=== PATIENT | female | born 1950 | race Caucasian/White ===

== ENCOUNTER 2018-08-04 00:25 | Outpatient (CLI) | payer MEDICARE, BC, SELFPAY ==
--- NOTE | 2018-08-04 15:08 | MERGE_ITS ---
*[facility]* *[facility]* [address] [place] [address] Date of study: 08/04/2018 Transthoracic Echocardiography M-mode, complete 2D, complete spectral Doppler, and color Doppler *STUDY CONCLUSIONS* Summary: 1. Left ventricle: The cavity size was normal. Systolic function was normal. The estimated ejection fraction was 60-65%. Findings consistent with diastolic dysfunction. Doppler parameters are consistent with high ventricular filling pressure. 2. Mitral valve: There was moderate to severe regurgitation. 3. Left atrium: The atrium was mildly dilated. 4. Right ventricle: The cavity size was normal. Wall thickness was normal. Systolic function was normal. 5. Atrial septum: No defect or patent foramen ovale was identified. 6. Tricuspid valve: There was mild-moderate regurgitation. 7. Pulmonary arteries: Pulmonary systolic pressure was in the range of 25mm Hg to 35mm Hg. 8. Inferior vena cava: The vessel was patent and normal in size. The respirophasic diameter changes were in the normal range (greater than or equal to 50%), consistent with normal central venous pressure. *PATIENT PRESENTATION* Height: 152.4cm ((60in) ) S/D Pressure: 129 / 66 Weight: 68kg ((149.7lb) ) BSA: 1.72m^2 Test start time: 02:20 PM. Test stop time: 03:10 PM. PERFORMING Unknown ORDERING Tee Chadwick REFERRING Tee Chadwick CONSULTING Gordy Gregg PERFORMING [facility] PRINCIPAL INVESTIGATOR RT Becky EscobarR)(BRANDIN), AASHISH *PROCEDURE DATA* Procedure information: The patient was identified by two identifiers. This study was interpreted by [facility]. Pertinent images and digital data are archived for permanent storage and are available for subsequent review. No prior study was available for comparison. Study status: Routine. Transthoracic echocardiography. M-mode, complete 2D, complete spectral Doppler, and color Doppler. A Transthoracic Echocardiogram was performed. Scanning was performed from the parasternal, apical, subcostal, and suprasternal notch acoustic windows. Images were obtained using an [id number] cardiac ultrasound machine. Image quality was adequate. Study completion: The patient tolerated the procedure well. History: PMH: Mitral regurg *CARDIAC ANATOMY* Left ventricle: The cavity size was normal. Systolic function was normal. The estimated ejection fraction was 60-65%. The tissue Doppler parameters were abnormal. Findings consistent with diastolic dysfunction. Doppler parameters are consistent with high ventricular filling pressure. Aortic valve: Trileaflet. Doppler: There was no stenosis. There was no regurgitation. VTI ratio of LVOT to aortic valve: 0.75. Valve area (VTI): 2.2cm^2. Indexed valve area (VTI): 1.3cm^2/m^2. Peak velocity ratio of LVOT to aortic valve: 0.81. Valve area (Vmax): 2.4cm^2. Indexed valve area (Vmax): 1.4cm^2/m^2. Mean velocity ratio of LVOT to aortic valve: 0.79. Valve area (Vmean): 2.3cm^2. Indexed valve area (Vmean): 1.4cm^2/m^2. Mean gradient (S): 3.8mm Hg. Peak gradient (S): 6.3mm Hg. Aorta: Aortic root: The aortic root was normal in size. Ascending aorta: The ascending aorta was mildly dilated. Mitral valve: Doppler: There was no evidence for stenosis. There was moderate to severe regurgitation. Valve area by pressure half-time: 2.3cm^2. Indexed valve area by pressure half-time: 1.3cm^2/m^2. Peak gradient (D): 2.2mm Hg. Left atrium: The atrium was mildly dilated. Atrial septum: No defect or patent foramen ovale was identified. Right ventricle: The cavity size was normal. Wall thickness was normal. Systolic function was normal. Pulmonic valve: Doppler: There was no evidence for stenosis. There was no significant regurgitation. Tricuspid valve: Doppler: There was mild-moderate regurgitation. Pulmonary artery: Poorly visualized. Pulmonary systolic pressure was in the range of 25mm Hg to 35mm Hg. Right atrium: The atrium was normal in size. Pericardium: There was no pericardial effusion. Systemic veins: Inferior vena cava: Well visualized. The vessel was patent and normal in size. The respirophasic diameter changes were in the normal range (greater than or equal to 50%), consistent with normal central venous pressure. Baseline ECG: Sinus bradycardia. Measurements Left ventricle Value 06/21/2016 Reference LV ID, ED, PLAX 4.6 cm 4.7 3.5 - 6.0 LV ID, ES, PLAX 3.3 cm 3.6 2.1 - 4.0 LV PW thickness, ED, PLAX 0.9 cm 0.8 LV end-diastolic volume, 78 ml 1-p A2C LV ejection fraction, 1-p 64 % 53 A2C LV end-diastolic volume, 86 ml 1-p A4C LV ejection fraction, 1-p 62 % 59 A4C LV e', lateral 0.047 m/sec LV E/e', lateral 16 LV e', medial 0.03 m/sec LV E/e', medial 24 LV e', average 0.039 m/sec LV E/e', average 19 Ventricular septum Value 06/21/2016 Reference IVS thickness, ED, PLAX 1.0 cm 0.8 LVOT Value 06/21/2016 Reference LVOT ID, A-P 1.9 cm 2.0 LVOT area 3 cm^2 3.2 LVOT peak velocity, S 1.02 m/sec 0.91 LVOT mean velocity, S 0.74 m/sec LVOT VTI, S 22.6 cm 23.5 LVOT peak gradient, S 4.2 mm Hg LVOT mean gradient, S 2.5 mm Hg 2.1 Stroke volume (SV), LVOT 67 ml DP Stroke index (SV/bsa), 39 ml/m^2 LVOT DP Aortic valve Value 06/21/2016 Reference Aortic valve peak 1.3 m/sec velocity, S Aortic valve mean 0.93 m/sec velocity, S Aortic valve VTI, S 30.0 cm Aortic mean gradient, S 3.8 mm Hg 5 Aortic peak gradient, S 6.3 mm Hg 9 VTI ratio, LVOT/AV 0.75 0.65 Aortic valve area, VTI 2.2 cm^2 2.1 Velocity ratio, peak, 0.81 LVOT/AV Aortic valve area, peak 2.4 cm^2 2 velocity Velocity ratio, mean, 0.79 LVOT/AV Aortic valve area, mean 2.3 cm^2 velocity Aortic valve area/bsa, 1.4 cm^2/m^2 mean velocity Aorta Value 06/21/2016 Reference Aortic root ID, ED 3.2 cm 3.2 Ascending aorta ID, A-P, S 3.4 cm 3.2 Left atrium Value 06/21/2016 Reference LA area, ES, A4C 20.9 cm^2 20 8.8 - 23.4 LA area, ES, A2C 19 cm^2 LA volume/bsa, ES, 1-p A4C 44 ml/m^2 42 LA volume, ES, 2-p 58 ml LA volume/bsa, ES, 2-p 34 ml/m^2 Mitral valve Value 06/21/2016 Reference Mitral E-wave peak 0.74 m/sec 0.85 velocity Mitral A-wave peak 0.95 m/sec 0.94 velocity Mitral deceleration time (H) 329 ms 150 - 230 Mitral pressure half-time 96 ms 117 Mitral peak gradient, D 2.2 mm Hg 2.9 Mitral E/A ratio, peak 0.79 0.9 Mitral valve area, PHT, DP 2.3 cm^2 1.9 Mitral peak LV-LA 157.9 mm Hg 145.6 gradient, S Mitral maximal regurg 6.28 m/sec 6.03 velocity, PISA Mitral regurg VTI, PISA 244.0 cm 248.1 Tricuspid valve Value 06/21/2016 Reference Tricuspid regurg peak 2.7 m/sec 2.8 velocity Tricuspid peak RV-RA 28.9 mm Hg 31.6 gradient Right atrium Value 06/21/2016 Reference RA area, ES, A4C 15.5 cm^2 15 8.3 - 19.5 Legend: (L) and (H) magen values outside specified reference range. I have personally reviewed the images and have reviewed and edited the reported findings. Electronically signed by Nicolas Grey MD 08/04/2018 16:59
== END 2018-08-04 00:45 ==
PROVIDERS: PCP Family Medicine; Visit Provider Internal Medicine Cardiovascular Disease
DX: I50.30 Unspecified diastolic (congestive) heart failure (principal); I08.1 Rheumatic disorders of both mitral and tricuspid valves
CPT/HCPCS: 93306

== ENCOUNTER → 2018-08-28 10:30 | Outpatient (BNVA) | payer MEDICARE, BC, SELFPAY | PROVIDERS: PCP Family Medicine; Visit Provider Internal Medicine Cardiovascular Disease | DX: I77.9 Disorder of arteries and arterioles, unspecified (principal); I25.10 Atherosclerotic heart disease of native coronary artery without angina pectoris; I10 Essential (primary) hypertension; E78.5 Hyperlipidemia, unspecified; I34.0 Nonrheumatic mitral (valve) insufficiency; E11.9 Type 2 diabetes mellitus without complications; Z79.4 Long term (current) use of insulin | CPT/HCPCS: 99214 ==

== ENCOUNTER 2019-01-07 01:25 | Outpatient (CLI) | payer MEDICARE, BC, SELFPAY ==
[2019-01-07 12:20] LABS: Hemoglobin A1C 6.5 % (4.5-6.2)
[2019-01-07 13:05] LABS: Calculated LDL 145 mg/dL; Cholesterol 251 mg/dL (50-200); HDL Cholesterol 46 mg/dL (40-60); Potassium 4.2 mmol/L (3.5-5.1); Triglyceride 301 mg/dL (30-150)
== END 2019-01-07 01:45 ==
PROVIDERS: PCP Family Medicine; Visit Provider Family Medicine
DX: E11.9 Type 2 diabetes mellitus without complications (principal)
CPT/HCPCS: 36415; 80061; 83721; 82565; 83036; 84132

== ENCOUNTER 2019-01-15 00:57 | Outpatient (CLI) | payer MEDICARE, BC, SELFPAY ==
--- NOTE | 2019-01-15 13:30 | DI.COMBO_ITS ---
SYMPTOMS/DIAGNOSIS: LEFT BREAST MASS/BRUISE, R22.9, N63.2 MAMMOGRAMS AND LEFT BREAST ULTRASOUND: Mammograms were interpreted according to the usual protocol including computer analysis with CAD system, tomosynthesis and C view imaging. Comparison is with the prior examinations. Breast density A. No suspicious masses or calcifications are seen. There is a stable nodule with coarse calcifications in the upper outer quadrant of the right breast. There is a subtle area of increased density in the subcutaneous tissues in the upper left breast corresponding to the palpable abnormality. No associated microcalcifications are seen. The skin and axillae are otherwise unremarkable. A left breast ultrasound was performed in the area of palpable concern. In the subcutaneous tissues at the 12 o'clock position of the left breast 2 cm from the nipple, there is a hyperechoic lesion measuring 1.6 x 1.5 x 0.8 cm. No internal blood flow, posterior acoustic enhancement or shadowing is seen. It is slightly heterogeneous with an area of decreased echogenicity in its deep portion. Given the patient's history, this likely represents a subcutaneous hematoma. No suspicious solid or cystic mass is seen sonographically. IMPRESSION: No definite evidence for malignancy. Finding on physical exam likely reflects a small subcutaneous hematoma. A follow-up targeted left breast ultrasound in six weeks is recommended to document resolving lesion. Category 2. The findings were discussed with the patient on the date of the examination. MQSA ASSESSMENT OF FINDINGS: Negative with benign findings. Category 2. Patient will receive a letter notifying them of these results. BI-RAD category A. The breasts are almost entirely fatty.
== END 2019-01-15 01:17 ==
PROVIDERS: PCP Family Medicine; Visit Provider Family Medicine
DX: R22.9 Localized swelling, mass and lump, unspecified (principal); N63.21 Unspecified lump in the left breast, upper outer quadrant; N64.89 Other specified disorders of breast
CPT/HCPCS: 76642; 77062; 77066; G0279

== ENCOUNTER 2019-02-26 01:14 | Outpatient (CLI) | payer MEDICARE, BC, SELFPAY ==
--- NOTE | 2019-02-26 10:10 | DI.US_ITS ---
SYMPTOM/DIAGNOSIS: LEFT BREAST LUMP/BRUISING. F/U MAMMO R92.9 6 WEEK F/U LEFT BREAST ULTRASOUND: Comparison 01/15/19 There has been interval decrease in size of the subcutaneous ovoid hyperechoic region at the 12 o'clock position of the left breast now measuring 1.2 cm in maximum diameter compared with 1.6 cm on the prior examination. No internal blood flow, posterior acoustic enhancement or shadowing is seen. This may represent a resolving hematoma or possibly fat necrosis. A lipoma cannot be entirely excluded. IMPRESSION: Interval decrease in size of the benign appearing hyperechoic left breast lesion suggesting resolving trauma.
== END 2019-02-26 01:34 ==
PROVIDERS: PCP Family Medicine; Visit Provider Family Medicine
DX: N63.20 Unspecified lump in the left breast, unspecified quadrant (principal); S20.02XD Contusion of left breast, subsequent encounter
CPT/HCPCS: 76642

== ENCOUNTER → 2019-04-02 10:44 | Outpatient (BNVA) | payer MEDICARE, BC, SELFPAY | PROVIDERS: PCP Family Medicine; Referring Provider Family Medicine; Visit Provider Internal Medicine Cardiovascular Disease | DX: I25.10 Atherosclerotic heart disease of native coronary artery without angina pectoris (principal); E78.2 Mixed hyperlipidemia; I10 Essential (primary) hypertension; I48.2 Chronic atrial fibrillation; I34.0 Nonrheumatic mitral (valve) insufficiency; I77.9 Disorder of arteries and arterioles, unspecified; E11.9 Type 2 diabetes mellitus without complications; Z79.4 Long term (current) use of insulin | CPT/HCPCS: 99214 ==

== ENCOUNTER 2019-06-08 08:46 | Outpatient (CLI) | payer MEDICARE, BC, SELFPAY ==
[2019-06-08 12:47] LABS: Hemoglobin A1C 7.9 % (4.5-6.2)
== END 2019-06-08 09:06 ==
PROVIDERS: PCP Family Medicine; Visit Provider Family Medicine
DX: E11.9 Type 2 diabetes mellitus without complications (principal)
CPT/HCPCS: 36415; 83036

== ENCOUNTER 2019-09-24 09:40 | Outpatient (CLI) | payer MEDICARE, BC, SELFPAY ==
--- NOTE | 2019-09-24 12:45 | DI.US_ITS ---
APPROVED REPORT EXAM: Comprehensive 2D, Doppler, and color-flow Echocardiogram Patient Location: Out-Patient Social Media Campaign Manager: Rosi Zhou RDCS (AE) Indications: CAD, Mitral Regurgitation Conclusion Left Ventricle : The left ventricle is normal size. The left ventricular systolic function is normal. The left ventricular ejection fraction is within the normal range. There is normal left ventricular wall thickness. There is normal LV segmental wall motion. There is evidence of impaired relaxation. LVEF is 55-60%. Right Ventricle : The right ventricle is normal size. The right ventricular systolic function is norm al. Atria : The left atrium size is normal. The right atrium size is normal. Aortic Valve : The Aortic valve is sclerotic. Aortic valve is trileaflet. There is no aortic valvular stenosis. Trace to mild aortic regurgitation. Mitral Valve : The mitral valve is normal in structure. Moderate mitral regurgitation. Mitral regurgi tation jet is eccentrically directed. No evidence of mitral valve stenosis. Tricuspid Valve : The tricuspid valve is normal in structure. Trace to mild tricuspid regurgitation. There is no tricuspid valve stenosis. Great Vessels : IVC is normal in size and collapses >50% with inspiration. The RVSP is 22.2 mmHg. Compared to echocardiogram dated 08/04/2018: Mitral regurgitation is still moderate, estimated RVSP talavera s decreased to 22 mmHg. Wall motion Left Ventricle The left ventricle is normal size. The left ventricular systolic function is normal. The left ventric ular ejection fraction is within the normal range. There is normal left ventricular wall thickness. T here is normal LV segmental wall motion. There is evidence of impaired relaxation. There is no ventri cular septal defect visualized. LVEF is 55-60%. Right Ventricle The right ventricle is normal size. The right ventricular systolic function is normal. Atria The left atrium size is normal. The right atrium size is normal. The interatrial septum is intact wit h no evidence for an atrial septal defect. Aortic Valve The Aortic valve is sclerotic. Aortic valve is trileaflet. There is no aortic valvular stenosis. Trac e to mild aortic regurgitation. Mitral Valve The mitral valve is normal in structure. No evidence of mitral valve stenosis. Moderate mitral regurg itation. Mitral regurgitation jet is eccentrically directed. Tricuspid Valve The tricuspid valve is normal in structure. There is no tricuspid valve stenosis. Trace to mild tricu spid regurgitation. Pulmonic Valve Pulmonic valve is not well visualized. There is no pulmonic valvular stenosis. Trace pulmonic regurgi tation. Great Vessels The aortic root is normal in size. The ascending aorta is normal in size. IVC is normal in size and c ollapses >50% with inspiration. The RVSP is 22.2 mmHg. Pericardium There is no pericardial effusion. There is no pleural effusion. 2D Dimensions IVSD d PLAX 1.04 cm F: 0.6-1.0 LV Vol A2C d MOD 85.1 mL LVPW d PLAX 1.00 cm F: 0.6 - 1.0 LV Vol A4C d MOD 78.9 mL LVID d PLAX 4.26 cm F: 3.8 - 5.2 LA vol/ BSA A2C s A-L 20.3 mL/m2 LVDs 2.75 cm F: 2.2 - 3.5 LA vol/ BSA A4C s A-L 19.3 mL/m2 Ao Root d 3.04 cm F: 2.7 - 3.3 LA Vol/ BSA Biplane s A-L 20.7 mL/m2 RA Area A4C 9.17 cm2 LA Area A4C s MOD 13.47 cm2 RA Vol/ BSA A4C s A-L 10.3 mL/m2 LA Area A2C s MOD 14.46 cm2 Ao Asc Diam d 3.42 cm F: 2.3 - 3.1 LV EF A4C MOD 56.6 % LV EF Teichholz 64.5 % LV EF A2C MOD 59.9 % LVEF (Baker's) 57.38 % F: 54 - 74 LV EF Biplane MOD 57.4 % LV Volume 65.43 mL F: 46 - 106 LV Volume Index 37.82 mL/m2 F: 29 - 61 LV Vol Biplane MOD 82.9 mL FS 34.85 % LV Diastology MV E' medial 0.045 (>0.07 m/s) E/A Ratio 0.6 LV E/e MED 10.65 (<14) MV E Vmax 0.48 (0.4-1.3 m/s) MV E' lateral 0.049 (>0.1 m/s) MV A Vmax 0.80 (0.4-1.3 m/s) LV E/e LAT 9.70 (<14) MV E/A Ratio 0.57 MV E/E' medial 10.67 MV E/E' lateral 9.73 Aortic Valve LVOT Area 2.78 cm2 AoV Area Vmax 2.45 cm2 LVOT Vmax 1.01 m/s AoV Area/ BSA (Vmax) 1.41 cm2/m2 LVOT Mean Dov. 0.60 m/s AGUILA Mean Dov. 2.21 cm2 LVOT Peak Grad 4.1 mmHg AGUILA Mean Dov. Index 1.28 cm2/m2 LVOT Mean Grad 1.8 mmHg AR DT 2732 msec LVOT VTI 0.213 m AR PHT 792 msec LVOT Diam s 1.85 cm (M/F) 1.5-2.5 AoV Vmax 1.15 (0.5-1.3 m/s) Velocity Ratio 0.87 AoV Mean Dov. 0.76 m/s AoV Peak Grad 5.3 mmHg LVOT SV 59.32 mL AoV Mean Grad 2.6 (<5 mmHg) AoV VTI 0.211 (0.18-0.25 m) AoV Area VTI 2.81 (2.5-4.5 cm2) AoV Area/ BSA (VTI) 1.62 cm/m2 Mitral Valve MV DT 354 (160-240 msec) MR Vmax 4.82 m/s MV PHT 103 msec MR VTI 1.361 m MV Area PHT 2.15 cm2 MR Peak Grad 93.1 mmHg MV VTI 0.333 m MR Mean Grad 79.2 mmHg MV Area VTI 1.78 (4.0-6.0 cm2) MR PISA Radius 0.51 cm MR EROA 0.12 cm2 MR Aliasing Velocity 0.35 m/s MR PISA 1.63 cm2 Pulmonary Valve PV Vmax 0.88 (0.5-1.5 m/s) RVOT Peak Gr. 2.22 mmHg PV Peak Grad 3.1 mmHg RVOT Mean Gr. 1.00 mmHg PV Mean Grad 1.5 mmHg RVOT VTI 0.155 m PV VTI 0.152 m RVOT Vmax 0.74 m/s Tricuspid Valve TR Peak Grad 19.2 mmHg TR Vmax 2.19 m/s RA Pressure 3.00 mmHg RVSP (TR) 22.2 mmHg
== END 2019-09-24 10:00 ==
PROVIDERS: PCP Family Medicine; Visit Provider Internal Medicine Cardiovascular Disease
DX: I25.10 Atherosclerotic heart disease of native coronary artery without angina pectoris (principal); I34.0 Nonrheumatic mitral (valve) insufficiency; I35.8 Other nonrheumatic aortic valve disorders; I48.20 Chronic atrial fibrillation, unspecified; I10 Essential (primary) hypertension
CPT/HCPCS: 93306

== ENCOUNTER → 2019-12-25 08:41 | Outpatient (BNVA) | payer MEDICARE, BC, SELFPAY | PROVIDERS: PCP Family Medicine; Referring Provider Family Medicine; Visit Provider Internal Medicine Cardiovascular Disease | DX: I25.10 Atherosclerotic heart disease of native coronary artery without angina pectoris (principal); I34.0 Nonrheumatic mitral (valve) insufficiency; I10 Essential (primary) hypertension; R94.30 Abnormal result of cardiovascular function study, unspecified; E78.5 Hyperlipidemia, unspecified | CPT/HCPCS: 99204; 99215 ==

== ENCOUNTER 2020-01-14 01:45 | Outpatient (CLI) | payer MEDICARE, BC, SELFPAY ==
[2020-01-14 12:26] LABS: CREATININE 1.03 mg/dL (0.55-1.02); Estimated GFR 53.13 (mL/min/1.73m2); Potassium 4.1 mmol/L (3.5-5.1)
[2020-01-14 12:39] LABS: Hemoglobin A1C 7.3 % (3.8-5.6)
[2020-01-14 13:10] LABS: COMMENT (LAB VIEW ONLY) 56.71 mg/dL; Microalb ug/mg Crea 8.1 ug/mg Cr
== END 2020-01-14 02:05 ==
PROVIDERS: PCP Family Medicine; Visit Provider Family Medicine
DX: E11.622 Type 2 diabetes mellitus with other skin ulcer (principal); L97.909 Non-pressure chronic ulcer of unspecified part of unspecified lower leg with unspecified severity
CPT/HCPCS: 36415; 82043; 82565; 82570; 83036; 84132

== ENCOUNTER 2020-02-03 12:19 | Outpatient (REF) | payer MEDICARE, BC, SELFPAY | END 2020-02-03 12:39 | LOC: LBN 12:19 | PROVIDERS: PCP Family Medicine; Visit Provider Family Medicine | DX: S81.802A Unspecified open wound, left lower leg, initial encounter (principal) | CPT/HCPCS: 87077; 87070; 87186; 87205 ==

== ENCOUNTER 2020-03-04 11:21 | Outpatient (REF) | payer MEDICARE, BC, SELFPAY | END 2020-03-04 11:41 | LOC: LBN 11:21 | PROVIDERS: PCP Family Medicine; Visit Provider Family Medicine | DX: L97.829 Non-pressure chronic ulcer of other part of left lower leg with unspecified severity (principal) | CPT/HCPCS: 87077; 87070; 87186; 87205 ==

== ENCOUNTER 2020-03-25 12:41 | Outpatient (REF) | payer MEDICARE, BC, SELFPAY | END 2020-03-25 13:01 | LOC: LBN 12:41 | PROVIDERS: PCP Family Medicine; Visit Provider Family Medicine | DX: L02.416 Cutaneous abscess of left lower limb (principal); B08.4 Enteroviral vesicular stomatitis with exanthem | CPT/HCPCS: 87070; 87205 ==

== ENCOUNTER → 2020-03-28 09:30 | Outpatient (BNVA) | payer MEDICARE, BC, SELFPAY | PROVIDERS: PCP Family Medicine; Referring Provider Family Medicine; Visit Provider Internal Medicine Cardiovascular Disease | DX: I25.10 Atherosclerotic heart disease of native coronary artery without angina pectoris (principal); I34.0 Nonrheumatic mitral (valve) insufficiency; I10 Essential (primary) hypertension; E78.5 Hyperlipidemia, unspecified; E11.9 Type 2 diabetes mellitus without complications | CPT/HCPCS: 99214 ==

== ENCOUNTER 2020-06-17 11:54 | Outpatient (CLI) | payer MEDICARE, BC, SELFPAY ==
[2020-06-17 13:24] LABS: Calculated LDL 115 mg/dL (<100); Cholesterol 185 mg/dL (<200); HDL Cholesterol 55 mg/dL (40-60); Triglyceride 75 mg/dL (<150)
[2020-06-17 14:07] LABS: Hemoglobin A1C 7.1 % (<5.7)
== END 2020-06-17 12:14 ==
PROVIDERS: PCP Family Medicine; Visit Provider Family Medicine
DX: E11.622 Type 2 diabetes mellitus with other skin ulcer (principal); E11.65 Type 2 diabetes mellitus with hyperglycemia; E78.5 Hyperlipidemia, unspecified; L97.918 Non-pressure chronic ulcer of unspecified part of right lower leg with other specified severity
CPT/HCPCS: 36415; 80061; 83036

== ENCOUNTER 2021-01-17 11:17 | Outpatient (CLI) | payer MEDICARE, BC, SELFPAY ==
[2021-01-17 13:28] LABS: CREATININE 1.1 mg/dL (0.55-1.02); Potassium 4.9 mmol/L (3.5-5.1)
== END 2021-01-17 11:18 | disposition home or self-care (01) ==
LOC: LOS 11:17
PROVIDERS: PCP Family Medicine; Referring Provider Family Medicine; Visit Provider Family Medicine
DX: E11.65 Type 2 diabetes mellitus with hyperglycemia (principal); I10 Essential (primary) hypertension
CPT/HCPCS: 36415; 82565; 84132

== ENCOUNTER 2021-02-17 03:25 | Outpatient (CLI) | payer MEDICARE, BC, SELFPAY ==
--- NOTE | 2021-02-17 07:30 | DI.MAMMO_ITS ---
Exam(s) MAMMO SCREENING EXAM: MAMMO SCREENING CLINICAL HISTORY: screening,Z12.39 TECHNIQUE: Bilateral full field digital CC and MLO mammographic images were obtained with 3D tomosyn thesis and utilizing computer aided detection (CAD). COMPARISON: Available for comparison. FINDINGS: Masses/Architectural Distortion: The well-circumscribed nodule in the upper outer quadrant of the rig ht breast with a coarse calcification pair stable. This likely reflects a fibroadenoma. No suspicio us masses are seen. Microcalcifications: No suspicious pleomorphic-type are seen. Skin Thickening/Nipple Retraction: None. IMPRESSION: 1. No significant interval change with no specific features of malignancy noted. 2. Unless there is more urgent need, screening mammography is recommended, as per [employer] guidelines. BI-RADS Category 2 - Benign Findings Breast Density - Category A - Almost entirely fatty Breast density category C or D implies that the patient has dense breast tissue. Dense breast tissue is very common and is not abnormal but dense breast tissue can make it harder to find cancer on a ma mmogram. Also, dense breast tissue may increase their breast cancer risk. This information about the result of the mammogram report was provided to the patient to raise their awareness. Use this report when you speak with the patient about their risks for breast cancer, which includes their family hist ory. At that time, you may recommend for more screening tests (Ultrasound or MRI) as they might be us eful based on their risk. A negative radiographic report should not delay biopsy if a dominant or clinically suspicious mass is present. Up to ten percent of cancers are not identified on mammography. A negative report may reinforce clinical impression. Adenosis and dense breasts may obscure an underlying neoplasm. False positive reports average 6 to 10%. Patient will receive a letter notifying them of these results.
== END 2021-02-17 03:45 ==
PROVIDERS: PCP Family Medicine; Visit Provider Family Medicine
DX: Z12.31 Encounter for screening mammogram for malignant neoplasm of breast (principal); N60.81 Other benign mammary dysplasias of right breast
CPT/HCPCS: 77063; 77067

== ENCOUNTER 2021-12-18 17:07 | Outpatient (CLI) | payer MEDICARE, BC, SELFPAY ==
--- NOTE | 2021-12-18 17:00 | RT.EKG_ITS ---
APPROVED REPORT Exam: Resting ECG Reason for Exam: nausea vomiting Patient Location: O HR:67 bpm ECG Measurements Heart Rate 67 AXIS WA 173 P 52 QRSd 91 QRS -1 QT 408 T 9 QTc 430 Conclusion Sinus rhythm...normal P axis, V-rate 60- 99
== END 2021-12-18 17:08 | disposition home or self-care (01) ==
LOC: DI.CM 17:09
PROVIDERS: PCP Family Medicine; Visit Provider Nurse Practitioner Family
DX: R07.89 Other chest pain (principal)
CPT/HCPCS: 93010

== ENCOUNTER 2021-12-18 18:44 | Outpatient (REF) | payer MEDICARE, BC, SELFPAY ==
[2021-12-18 20:54] LABS: Abs Immature Grans 0.02 10^3/uL (0.0-0.06); Absolute Basophil Count 0.02 10^3/uL (0.0-0.2); Absolute Eosinophil Count 0.03 10^3/uL (0.0-0.7); Absolute Lymphocyte Count 0.83 10^3/uL (1.2-3.4); Absolute Monocyte Count 0.59 10^3/uL (0.1-0.8); Absolute Neutrophil Count 3.48 10^3/uL (1.2-6.7); Basophils % 0.4; Eosinophils % 0.6; HCT 44.3 % (36.0-46.0); HGB 14.9 g/dL (11.2-15.7); Immature Grans % 0.4; Lymphocytes % 16.7; MCH 30.1 pg (27.0-33.0); MCHC 33.6 % (32.0-36.0); MCV 90 fL (80-95); Monocytes % 11.9; Platelet Count 210 10^3/uL (130-400); RBC 4.95 10^6/uL (3.93-5.22); RDW 13.5 % (11.7-14.6); RDW-SD 44.5 fL; WBC 4.97 10^3/uL (4.4-10.8)
[2021-12-18 21:58] LABS: ALT 39 U/L (14-59); AST 54 U/L (15-37); Albumin 3.4 g/dL (3.4-5.0); Alkaline Phosphatase 75 U/L (46-116); Anion Gap 12.3 mmol/L (3-11); BUN 20 mg/dL (7-18); Bilirubin, Total 2.2 mg/dL (0.2-1.0); CO2 25.7 mmol/L (21.0-32.0); CREATININE 0.8 mg/dL (0.55-1.02); Calcium 8.5 mg/dL (8.5-10.1); Chloride 101 mmol/L (98-107); Glucose 183 mg/dL (74-106); Potassium 3.4 mmol/L (3.5-5.1); Sodium 139 mmol/L (136-145); Total Protein 6.6 g/dL (6.4-8.2)
== END 2021-12-18 18:45 | disposition home or self-care (01) ==
LOC: LBN 18:44
PROVIDERS: PCP Family Medicine; Visit Provider Nurse Practitioner Family
DX: R11.2 Nausea with vomiting, unspecified (principal); R07.89 Other chest pain
CPT/HCPCS: 80053; 85025

== ENCOUNTER 2021-12-19 21:22 | Emergency (ER) | payer MEDICARE, BC, SELFPAY ==
[2021-12-19] VITALS (19 sets, daily range): BP systolic 133–136; BP diastolic 62–73; PULSE 38–64; RESP 10–21; TEMP 37; O2SAT 95–99
--- NOTE | 2021-12-19 21:15 | RT.EKG_ITS ---
APPROVED REPORT Exam: Resting ECG Reason for Exam: ekg Patient Location: E HR:60 bpm ECG Measurements Heart Rate 60 AXIS MA 172 P 56 QRSd 89 QRS 2 QT 437 T 40 QTc 438 Conclusion Sinus rhythm...normal P axis, V-rate 60- 99 Low voltage, precordial leads...precordial leads <1.0mV
--- NOTE | 2021-12-19 21:45 | DI.RAD_ITS ---
Exam(s) XR PORTABLE CHEST AP EXAM: XR PORTABLE CHEST AP CLINICAL HISTORY: chest pain. TECHNIQUE: 2D digital imaging was performed. COMPARISON: CR PORTABLE CHEST ONE VIEW from 08/09/2015 FINDINGS: Single AP portable view. Heart size is upper normal. The mediastinum is not widened. Lungs are clear. No infiltrates nor obvious pleural effusions. Previously present bilateral infiltrates have resolved. IMPRESSION: No acute pulmonary findings on this single AP portable view of the chest. DATA REPOSITORY: RADIATION DOSE DELIVERED: All CT scans at this facility use at least one of these dose optimization techniques: automated exposure control; mA and/or kV adjustment per patient size (includes targeted e xams where dose is matched to clinical indication); or iterative reconstruction.
--- NOTE | 2021-12-19 21:47 | ED.GENADUL_ITS ---
Discharge Plan Disposition Patient Disposition: HOME Condition: Stable Discharge Details Clinical Impression: Burning in the chest Primary Care Provider: Gordy Gregg ED Provider: Nicolas Ramos Home Meds and New Rx's Prescriptions: Continued (DME) pen needle, diabetic [BD Ultra-Fine Isabell Pen Needle] 32 gauge x 5/32 needle 1 ea Miscellaneous QID Qty: 120 11RF Rx Instructions: check sugar BID (DME) OneTouch Ultra Blue Test Strip Strip See Dose Instructions .ROUTE .MEDSUPPLY Qty: 300 3RF Dose Instruction: test daily Rx Instructions: test TID (DME) lancets 1 EACH misc 1 ea Miscellaneous DAILY Qty: 100 Rx Instructions: FOR ONE TOUCH ULTRA MINI METER. NO INSULIN. DIAGNOSIS CODE 250.02 acetaminophen [Tylenol] 325 MG tablet 2 tab PO bid prn magnesium oxide 250 MG tablet 250 mg PO DAILY Jardiance 25 mg tablet 25 mg PO QAM Qty: 90 3RF atorvastatin 40 mg tablet 40 mg PO QHS 90 Days Qty: 90 4RF amlodipine 10 mg tablet 10 mg PO DAILY Qty: 90 3RF clopidogrel [Plavix] 75 mg tablet 75 mg PO QAM Qty: 90 3RF fenofibrate 54 mg tablet 54 mg PO DAILY Qty: 90 3RF gabapentin 600 mg tablet 600 mg PO BID Qty: 180 3RF hydrochlorothiazide 12.5 mg tablet 12.5 mg PO DAILY Qty: 90 3RF insulin aspart U-100 [Novolog Flexpen U-100 Insulin] 100 unit/mL (3 mL) insulin pen 5 unit Sub-Q BID Qty: 15 6RF insulin glargine [Basaglar KwikPen U-100 Insulin] 100 unit/mL (3 mL) insulin pen 20 unit subcut HS Qty: 15 6RF isosorbide mononitrate 30 mg tablet extended release 24 hr 30 mg PO DAILY Qty: 90 3RF lisinopril 30 mg tablet 30 mg PO DAILY Qty: 90 3RF metoprolol succinate 25 mg tablet extended release 24 hr 25 mg PO DAILY Qty: 90 3RF nitroglycerin [Nitrostat] 0.4 mg tablet, sublingual 0.4 mg Sublingual q 5 mins PRN (Reason: chest pain) Qty: 25 0RF Rx Instructions: go to ED if no relief after 3 doses pantoprazole 40 mg tablet,delayed release (DR/EC) 40 mg PO DAILY Qty: 90 3RF trazodone 50 mg tablet 50 - 100 mg PO HS Qty: 90 4RF sertraline 50 mg tablet 50 mg PO DAILY Qty: 90 3RF sertraline 25 mg tablet 25 mg PO DAILY Qty: 90 3RF Rx Instructions: take w/ 50 mg tab to equal 75 mg/day Discharge Instructions Instructions: Chest Pain (ED) Additional Instructions: your ekg and blood tests did not show any new abnormalities follow up with your primary care provider within 1 week if you feel more ill, have severe worsening pain or difficulty breathing return to the emergency department Medical Decision Making 71 yo female with hx of CAD s/p stent in 2016, dm, hld, who comes in with chief complaint of chest burning. She states she was watching tv when she started to feel burning in her chest and states she couldn't tell if it was her normal heart burn or not. she took a nitro which did not change her symptoms so called ems. EMS gave 324mg aspirin and she states it made it feel better. She has a 1/10 burning sensation in the mid chest. She denies fevers, chills, dyspnea, n/v. She is in no distress on exam speaking clearly with stable vital signs. She has clear lungs, soft nontender abdomen. 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 Her symptoms seem most likely due to gerd but given her history will obtain troponin and ekg. She has no tachycardia or hypoxia so doubt PE and no tearing back pain to suggest dissection. Will treat with mylanta and reassess. pt feels better after mylanta and has stable vitals. Labs show elevated lft's but has had this in the past, K 2.9 so oral repletion ordered. Has no abdominal tenderness so doubt cholecystitis. I did offer admission for observation but she declind and would prefer to have a delta troponin and if negative d/c and f/u with pcp. Will obtain delta troponin and repeat bmp delta troponin negative and K 3.3. She is symptom free now and still declines admission for observation. She will f/u with her pcp and return precautions given Differential Diagnosis Differential Diagnosis: nstemi, gerd, esophagitis Medical Records Medical records reviewed: Yes I reviewed the patient's medical records. Imaging Data Radiologic Study: Attestation: I personally reviewed and interpreted this imaging study as follows: Imaging: X-Ray My impression: no acute findings Lab Data Lab results reviewed: Yes I reviewed the patient's lab results. ECG Data Attestation: I personally reviewed and interpreted this ECG (s) as follows: Prior ECG tracings: available for review Interpretation: 1st ekg sinus rhythm, rate of 60, pr 172, no acute st t wave ischemic findings 2nd ekg sinus rhythm rate of [address] t wave ischemic findings HPI General Mode of arrival: EMS . Date/Time Provider Initiated Documentation: 12/19/21 21:32 . Limitations to Documentation: no limitations . Information obtained by: patient . History of Present Illness 71 year old F presents to the emergency department with the chief complaint of chest pain, described as moderate, Quality is described as burning, and is localized to the chest. Patient started experiencing this hour(s) (1) other things that improve symptom(s), (states aspirin helped) No exacerbating factors reported . Patient notes denies diaphoresis. Patient did receive the following treatments prior to arrival, Aspirin Related Data Home Medications Medication Instructions Recorded Confirmed lancets 28 gauge #100 ea 01/17/15 10/18/21 acetaminophen 325 mg tablet 2 tab PO bid prn 06/22/15 12/19/21 (Tylenol) magnesium oxide 250 mg PO DAILY 04/11/16 12/19/21 pen needle, diabetic 32 gauge x ##120 01/15/20 10/18/21 (BD Ultra-Fine Isabell Pen Needle) blood sugar diagnostic (OneTouch #300 ea 09/16/20 10/18/21 Ultra Blue Test Strip) amlodipine 10 mg tablet 10 mg PO DAILY #90 tabs 09/07/21 12/19/21 atorvastatin 40 mg tablet 40 mg PO QHS 90 days #90 tabs 09/07/21 12/19/21 clopidogrel 75 mg tablet (Plavix) 75 mg PO QAM #90 tabs 09/07/21 12/19/21 empagliflozin 25 mg tablet 25 mg PO QAM #90 tabs 09/07/21 12/19/21 (Jardiance) fenofibrate 54 mg tablet 54 mg PO DAILY #90 tabs 09/07/21 12/19/21 gabapentin 600 mg tablet 600 mg PO BID #180 tabs 09/07/21 12/19/21 hydrochlorothiazide 12.5 mg tablet 12.5 mg PO DAILY #90 tab-caps 09/07/21 12/19/21 insulin aspart U-100 100 unit/mL 5 unit (0.05 mL) subcut BID #15 mL 09/07/21 12/19/21 (3 mL) subcutaneous pen (Novolog Flexpen U-100 Insulin aspart) insulin glargine 100 unit/mL (3 20 unit (0.2 mL) subcut HS #15 mL 09/07/21 12/19/21 mL) subcutaneous pen (Basaglar KwikPen U-100 Insulin) isosorbide mononitrate 30 mg 30 mg PO DAILY #90 tab-caps 09/07/21 12/19/21 tablet,extended release 24 hr lisinopril 30 mg tablet 30 mg PO DAILY #90 tabs 09/07/21 12/19/21 metoprolol succinate 25 mg 25 mg PO DAILY #90 tabs 09/07/21 12/19/21 tablet,extended release 24 hr nitroglycerin 0.4 mg sublingual 0.4 mg sublingual q 5 mins PRN 09/07/21 12/19/21 tablet (Nitrostat) chest pain #25 tabs pantoprazole 40 mg tablet,delayed 40 mg PO DAILY #90 tab-caps 09/07/21 12/19/21 release sertraline 25 mg tablet 25 mg PO DAILY #90 tab-caps 09/07/21 12/19/21 sertraline 50 mg tablet 50 mg PO DAILY #90 tab-caps 09/07/21 12/19/21 trazodone 50 mg tablet 50 - 100 mg PO HS #90 tabs 09/07/21 12/19/21 Previous Rx's Medication Instructions Recorded pen needle, diabetic 32 gauge x ##120 01/15/20 (BD Ultra-Fine Isabell Pen Needle) blood sugar diagnostic (OneTouch #300 ea 09/16/20 Ultra Blue Test Strip) amlodipine 10 mg tablet 10 mg PO DAILY #90 tabs 09/07/21 atorvastatin 40 mg tablet 40 mg PO QHS 90 days #90 tabs 09/07/21 clopidogrel 75 mg tablet (Plavix) 75 mg PO QAM #90 tabs 09/07/21 empagliflozin 25 mg tablet 25 mg PO QAM #90 tabs 09/07/21 (Jardiance) fenofibrate 54 mg tablet 54 mg PO DAILY #90 tabs 09/07/21 gabapentin 600 mg tablet 600 mg PO BID #180 tabs 09/07/21 hydrochlorothiazide 12.5 mg tablet 12.5 mg PO DAILY #90 tab-caps 09/07/21 insulin aspart U-100 100 unit/mL 5 unit (0.05 mL) subcut BID #15 mL 09/07/21 (3 mL) subcutaneous pen (Novolog Flexpen U-100 Insulin aspart) insulin glargine 100 unit/mL (3 20 unit (0.2 mL) subcut HS #15 mL 09/07/21 mL) subcutaneous pen (Basaglar KwikPen U-100 Insulin) isosorbide mononitrate 30 mg 30 mg PO DAILY #90 tab-caps 09/07/21 tablet,extended release 24 hr lisinopril 30 mg tablet 30 mg PO DAILY #90 tabs 09/07/21 metoprolol succinate 25 mg 25 mg PO DAILY #90 tabs 09/07/21 tablet,extended release 24 hr nitroglycerin 0.4 mg sublingual 0.4 mg sublingual q 5 mins PRN 09/07/21 tablet (Nitrostat) chest pain #25 tabs pantoprazole 40 mg tablet,delayed 40 mg PO DAILY #90 tab-caps 09/07/21 release sertraline 25 mg tablet 25 mg PO DAILY #90 tab-caps 09/07/21 sertraline 50 mg tablet 50 mg PO DAILY #90 tab-caps 09/07/21 trazodone 50 mg tablet 50 - 100 mg PO HS #90 tabs 09/07/21 Allergies Allergy/AdvReac Type Severity Reaction Status Date / Time No Known Allergies Allergy Verified 12/18/21 17:00 General Stated Complaint: Chest Pain SHAKEEL: 3 Review of Systems All systems reviewed & are unremarkable except as noted in HPI and below Constitutional Constitutional: Denies chills, Denies fever(s) and Denies weakness Cardiovascular Cardiovascular: Denies dyspnea Respiratory Respiratory: Denies cough and Denies dyspnea Gastrointestinal Gastrointestinal: Denies abdominal pain, Denies nausea and Denies vomiting Musculoskeletal Musculoskeletal: Denies joint swelling Neurologic Neurologic: Denies weakness PFSH All Active Problems (Updated 12/19/21 @ 23:15 by Nicolas Ramos MD) Burning in the chest (Acute) Elevated bilirubin (Acute) Conductive hearing loss, external ear (Acute) Impacted cerumen, left ear (Acute) Anemia (Acute) Poorly controlled type 2 diabetes mellitus (Acute) Diabetic leg ulcer (Acute) Diabetic retinopathy (Acute) 03/25/18; [facility]; MILD B/L RETINOPATHY-kb 04/28/20; [facility]; MILD RIGHT EYE ONLY-KB Pressure ulcer (Acute) MRSA positive Mitral regurgitation (Chronic) CAD (coronary artery disease) (Chronic) doing well Diabetes mellitus (Chronic) good control History of intravascular stent placement (Acute) Status post cardiac catheterization (Acute) Cardiac LV ejection fraction >40% (Acute 06/21/16) [facility]-60-65% Hypertension (Chronic 12/14/14) get labs done--remember to register a day or two before you come Hyperlipidemia (Chronic 12/14/14) add fenofibrate to address elevated triglycerides Plugged feeling in ear (Acute) History of surgical procedure (Acute 07/24/15) Localized superficial swelling, mass, or lump (Acute) schedule mammogram Peripheral arterial occlusive disease (Acute) Acute myocardial infarction (Acute) Diabetes mellitus type 2, uncontrolled, with complications (Acute) not well controlled--will add Jardiance which should also benefit her cardiovascularly Acute systolic (congestive) heart failure (Acute) Wound, open, groin, complicated (Acute) Peripheral angiopathy due to secondary diabetes (Acute) Hyperlipidemia associated with type 2 diabetes mellitus (Acute) Coronary arteriosclerosis after percutaneous transluminal coronary angioplasty (PTCA) (Acute) Surgical History 2 LEG SURGERIES CARDIAC CATH Stent placement Family History Mother , 72 Diabetes Essential hypertension Heart disease Hyperlipidemia Stroke Father , 72 Essential hypertension Heart disease Hyperlipidemia Sister Diabetes Ovarian cancer Heart disease Brother Diabetes Stroke Depression Essential hypertension Hyperlipidemia Dementia Brother , AGE 48 Multiple myeloma Heart disease Maternal Grandfather , 83 Heart disease Sister Essential hypertension Paternal Grandfather No problems noted. Maternal Grandmother , 84 No problems noted. Paternal Grandmother No problems noted. Social History (Updated 06/20/21 @ 17:47 by Tamanna Rodriguez) Smoking/Tobacco Use Status: Never Second Hand Exposure: Yes Smoking risk assessment performed?: Yes Alcohol Intake: former Drug use: Current Sobriety Substance use type: former substance user and marijuana Caregiver/Support person: No Household members: none Housing: apartment Communication Needs: None Do you need help understanding health information?: Often Pets and animals: No Sexually active: No Do you think of yourself as: straight/heterosexual Current gender identity: female What is your relationship status?: How often do you talk on the phone with friends or family?: never How often do you get together with friends or relatives?: never How often do you attend congregation or quaker services?: decline to answer Do you belong to any clubs or organized social groups?: no Panel score (0-1 are the most socially isolated patients): 0 What type of physical activity do you participate in: none Yris/Methodist: Shinto Special yris needs: No Seatbelt use: always Helmet use: No Drive intox or ride w/intox patient transportation driver: No Do you feel safe at home: Yes Do you feel safe in your relationship?: Yes Victim of physical abuse: No Victim of emotional abuse: No Victim of sexual abuse: No Would you like helpful sources: No Exam Const General: no acute distress Orientation: alert HENMT Head: normal to inspection Ears: external ears normal General nose exam: external nose normal Mouth: moist mucous membranes Eyes General: appearance normal, both eyes and all related structures Neck Neck: normal visual inspection Resp Effort & Inspection: normal respiratory effort and able to speak in complete sentences Cardio Rate: regular rate GI Palpation: soft and nontender Skin General skin exam: no rashes or lesions noted Neuro General: patient alert and patient oriented x3 Extrem General: normal to inspection Psych Mental Status: mental status grossly normal Course Vital Signs Vital signs: Vital Signs Temperature 37.0 C 12/19/21 21:20 Pulse 63 12/19/21 21:20 Respiratory Rate 18 12/19/21 21:20 Blood Pressure 133/62 12/19/21 21:20 Pulse Oximetry 99 12/19/21 21:20 Temperature 37.0 C 12/19/21 21:20 Temperature Source Temporal Artery Scan 12/19/21 21:20 Pulse 63 12/19/21 21:20 Respiratory Rate 18 12/19/21 21:20 Blood Pressure 133/62 12/19/21 21:20 Blood Pressure Position Supine 12/19/21 21:20 Pulse Oximetry 99 12/19/21 21:20 Oxygen Delivery Method Room Air 12/19/21 21:20 Oxygen Flow Rate 0 12/19/21 21:20 Pain Level 0 12/19/21 21:20
[2021-12-19] MEDS: Mylanta Suspension 30 ML CUP PO (21:51)
[2021-12-19] MEDS: Normal Saline 1,000 ML 1000 ML IV (21:51)
[2021-12-19 21:55] LABS: Abs Immature Grans 0.01 10^3/uL (0.0-0.06); Absolute Basophil Count 0.03 10^3/uL (0.0-0.2); Absolute Lymphocyte Count 1.13 10^3/uL (1.2-3.4); Absolute Monocyte Count 0.66 10^3/uL (0.1-0.8); Absolute Neutrophil Count 3.72 10^3/uL (1.2-6.7); Basophils % 0.5; Eosinophils % 1.8; HCT 39.9 % (36.0-46.0); HGB 13.3 g/dL (11.2-15.7); Immature Grans % 0.2; MCH 29.5 pg (27.0-33.0); MCHC 33.3 % (32.0-36.0); MCV 89 fL (80-95); MPV 10.5 fL (8.0-11.0); Monocytes % 11.7; Neutrophils % 65.8; Platelet Count 203 10^3/uL (130-400); RBC 4.51 10^6/uL (3.93-5.22); RDW 13.4 % (11.7-14.6); RDW-SD 43.6 fL; WBC 5.65 10^3/uL (4.4-10.8)
[2021-12-19 22:19] LABS: ALT 80 U/L (14-59); AST 130 U/L (15-37); Albumin 3.1 g/dL (3.4-5.0); Alkaline Phosphatase 189 U/L (46-116); Anion Gap 8.9 mmol/L (3-11); BUN 20 mg/dL (7-18); Bilirubin, Direct 1.4 mg/dL (0.0-0.2); Bilirubin, Total 2.2 mg/dL (0.2-1.0); CO2 29.1 mmol/L (21.0-32.0); CREATININE 0.9 mg/dL (0.55-1.02); Calcium 8.8 mg/dL (8.5-10.1); Chloride 98 mmol/L (98-107); Glucose 137 mg/dL (74-106); Lipase 179 U/L (73-393); Sodium 136 mmol/L (136-145); Total Protein 6.3 g/dL (6.4-8.2); Troponin I < 50 ng/L (<or=60)
[2021-12-19 22:20] LABS: Potassium 2.9 mmol/L (3.5-5.1)
[2021-12-19] MEDS: Potassium Chloride 20 MEQ TABCR 40 MEQ PO (22:39)
--- NOTE | 2021-12-19 22:52 | DI.VRAD_ITS ---
PROCEDURE INFORMATION: Exam: XR Chest Exam date and time: 12/19/2021 21:45 Age: 71 years old Clinical indication: Chest wall pain; Additional info: Chest pain TECHNIQUE: Imaging protocol: XR of the chest. Views: 1 view. COMPARISON: CR PORTABLE CHEST ONE VIEW 08/09/2015 00:42 FINDINGS: Lungs: No consolidation. Pleural spaces: No pleural effusion. No pneumothorax. Heart/Mediastinum: No cardiomegaly. Bones/joints: No acute fracture. IMPRESSION: Negative portable chest. Dictated and Authenticated by: Candy Hill MD. Ordering:YESI Valenzuela MD
[2021-12-20] VITALS (8 sets, daily range): BP systolic 127–138; BP diastolic 59–67; PULSE 57–61; RESP 15–20; O2SAT 94–96
--- NOTE | 2021-12-20 00:15 | RT.EKG_ITS ---
APPROVED REPORT Exam: Resting ECG Reason for Exam: chest pain Patient Location: E HR:60 bpm ECG Measurements Heart Rate [address] 185 P 57 QRSd 87 QRS 0 QT 430 T 35 QTc 428 Conclusion Sinus rhythm...normal P axis, V-rate 60- 99
[2021-12-20 00:34] LABS: Anion Gap 7.7 mmol/L (3-11); BUN 19 mg/dL (7-18); CO2 26.3 mmol/L (21.0-32.0); CREATININE 0.8 mg/dL (0.55-1.02); Calcium 8.4 mg/dL (8.5-10.1); Chloride 102 mmol/L (98-107); Glucose 154 mg/dL (74-106); Potassium 3.4 mmol/L (3.5-5.1); Sodium 136 mmol/L (136-145)
[2021-12-20 00:43] LABS: Troponin I < 50 ng/L (<or=60)
== END 2021-12-20 01:13 | disposition home or self-care (01) ==
PROVIDERS: Emergency Provider Emergency Medicine; PCP Family Medicine
DX: R07.89 Other chest pain (principal); E87.6 Hypokalemia
CPT/HCPCS: 36415; 80048; 80053; 83690; 93005; 96360; 96361; 99284; 71045; 82248; 83735; 84484; 85025; 93010; 99283

== ENCOUNTER → 2022-01-25 00:49 | Outpatient (CLI) | payer MEDICARE, BC, SELFPAY ==
--- OUTSIDE RECORDS SUMMARY | 2022-01-25 00:54 | XMS_ITS | Encounter Summary ---
:1950 Author Organization [place] [address] Care Team Providers Name Role Phone Gordy Gregg MD Primary Care Provider [phone] Encounter Details Date Type Department Care Team Description 08/10/2016 Hospital Encounter Vascular Lab at [facility] ([facility], [facility] [place] [id number] Social History Tobacco Use Types Packs/Day Years Used Date Never Smoker Smokeless Tobacco: Never Used Alcohol Use Standard Drinks/Week Comments No 0 (1 standard drink = 0.6 oz pure alcoho l) Sex Assigned at Date Recorded Not on file documented as of this encounter Medications at Time of Discharge Medication Sig Dispensed Refills Start Date End Date sertraline (ZOLOFT) 25 Take 75 mg by mouth 0 mg Tablet daily. Takes with 50mg Magnesium Oxide 250 mg Take 1-2 tablets by 0 Tablet mouth daily. meTOPROLOL succinate Take 1 tablet by mouth 30 tablet 12 (TOPROL-XL) 25 mg daily. Tablet Sustained Release 24 hrIndications: ASCVD (arteriosclerotic cardiovascular disease) traZODone (DESYREL) 50 Take 50 mg by mouth 0 mg Tablet nightly. lisinopril Take 1 tablet by mouth 30 tablet 12 08/13/2015 (PRINIVIL;ZESTRIL) 5 daily. mg Tablet nitroGLYcerin Place 1 tablet under 25 tablet 3 08/13/2015 (NITROSTAT) 0.4 mg the tongue every 5 Tablet, Sublingual minutes as needed for Chest pain. pantoprazole Take 1 tablet by mouth 90 tablet 3 08/13/2015 (PROTONIX) 40 mg daily. Tablet, Delayed Release (E.C.) gabapentin (NEURONTIN) Take 2 capsules by 90 capsule 12 08/03 300 mg mouth 2 times daily. CapsuleIndications: Indications: neuropathic pain Neuropathic Pain insulin aspart Inject 1-4 Units 10 mL 12 08/03/2015 (NOVOLOG) Solution subcutaneously every 4 hours. sertraline (ZOLOFT) 50 Take 75 mg by mouth 0 mg Tablet daily. Takes with 25mg aspirin 81 mg Tablet, Take 1 tablet by mouth 30 tablet 3 Delayed Release (E.C.) daily. acetaminophen Take 325 mg by mouth 0 (TYLENOL) 325 mg every 4 hours as Tablet needed for Pain. oxyCODONE (ROXICODONE) Take 1 tablet by mouth 30 tablet 0 0 08/03/2015 5 mg Tablet every 4 hours as needed for Pain (mild to moderate pain (1-6)). simvastatin (ZOCOR) 20 Take 20 mg by mouth 0 12/10/2019 mg Tablet nightly. clopidogrel (PLAVIX) Take 1 tablet by mouth 30 tablet 11 12/201508/13/2016 75 mg Tablet daily. multivitamin Take 1 tablet by mouth 0 05/07/2017 (THERAGRAN) Tablet daily. documented as of this encounter Plan of Treatment Not on filedocumented as of this encounter Procedures Procedure Name Priority Date/Time Associated Diagnosis Comme nts VEIN MAP LEG, Routine 08/10/2016 9:50 AM PAD (peripheral Resul ts for this UNILAT EST artery disease) procedure ar e in the results section. SOSA, LEGS, MULTIPLE Routine 08/10/2016 9:50 AM PAD (peripheral Results for this LEVELS EST artery disease) procedure ar e in the results section. documented in this encounter Results Vein Map Leg, Unilat (08/10/2016 9:50 AM EST) Component Value Ref Test Analysis Performed At [facility] [place] Range Method Time Signature VB Text Department: Vascular Surgery Lab [facility] Report Patient: [id number] (CARRIE PERRY) CPT: 61516 ICD10: I73.9;I70.211 Referring Physician: GLEN DOYLE ?? Indications: Right LE PVD w/CLI, ? vein map for possible BPG ICD10 Diagnosis Code: I73.9, I70.211 Findings: Right ?Diameter (mm) ??Depth (mm) ?? GSV, Near SFJ ?3.9 ? 7.0 ?? GSV, Proximal Thigh ?3.3 ? 8.4 ?? GSV, Mid Thigh ? 3.5 ? 9.9 ? ? GSV, Distal Thigh ?3.6 ?14.6 ?? GSV, ??Knee ? 3.1 ?17. 8 ?? GSV Prox Calf ?2.9 ? 8.9 ?? GSV, Mid Calf ?2.4 ? 7.3 ?? GSV, Distal Calf ? 2.5 ? 4.8 ?? GSV, Ankle ? 2.4 ? 4.6 ?? Interpretation: RIGHT: Patent great saphenous vein with no evidence of thrombus. The leg was not marked, no surgery date set. Comparison: ??No previous study in our vascular lab da tabase for comparison. Electronically Signed by: HORACE DIAZ on 2016-08-10 05:00:18 PM VB Text End of Report [facility] Report Specimen (Source) Anatomical Collection Method Collection Time Re ceived Time Location / / Volume Laterality 08/10/2016 9:50 AM EST Glen Doyle MD VASCULAR ORDERABLES Performing Organization Address City/State/ZIP Code Phon e Number [facility] SOSA, legs, multiple levels (08/10/2016 9:50 AM EST) Component Value Ref Test Analysis Performed At [facility] Range Method Time Signature VB Text Department: Vascular Surgery Lab [facility] Report Patient: [id number] (CARRIE PERRY) CPT: 62526-18 ICD10: I70.211;I73.9 Referring Physician: GLEN DOYLE ?? Indications: Right LE claudication w/CLI, hx lef t AKA, ? peripheral perfusion change Diabetes mellitus: Yes ICD10 Diagnosis Code: I70.211, I73.9 Findings: Right ?Pressure (mm Hg) ?? SOSA ??Waveform ? TBI ?? Brachial Artery ?150 ? Dorsalis Pedis (Ankle) Arter y ?39 ?0.26 ??Monophasic ? Posterior Tibial (Ankle) Art gregory ??40 ?0.27 ??Monophasic ? Great Toe ?17 ?0.11 ?? Left ? Pressure (mm Hg) ?? Brachial Artery ?150 ? Interpretation: RIGHT: Severe lower extremit y arterial occlusive disease. No significant change compared to previous exam. Previous ABIs with change from previous value: Date ?RIGHT DP ?? RIGHT PT ?? RT GR TOE ??LEFT DP ?LEFT PT ?LT GR TOE ??0.49 ? 0 .52 ? 0.25 ? 0.32 ? 0.24 ? 0.12 ??---- ? - --- ? ---- ? 1.09(+.77) 1.01(+.77) 0.34(+.22) ??0.42 ? 0 .57 ? 0.26 ? 0.95(-.14) 0.77(-.24) 0.43(+.09) ??0.53(+.11) 0.55 (-.02) 0.26( .00) ---- ? 0.12(-.65) 0.00(-.43) ??0.21(-.32) 0.28 (-.27) 0.05(-.21) 0.09 ? 0.19(+.07) 0.00( .00) ??0.49(+.28) 0.53(+.25) 0.24( +.19) 0.31(+.22) 0.00(-.19) 0.06(+.06) ??0.48(-.01) 0.49(-.04) 0.21( -.03) ---- ? ---- ? ---- ??0.31(-.17) 0.34(-.15) 0.12( -.09) ---- ? ---- ? ---- ??0.33(+.02) 0.34( .00) 0.13( +.01) ---- ? ---- ? ---- Current ? 0.26(-.07) 0.2 7(-.07) 0.11(-.02) ---- ? ---- ? ---- Electronically Signed by: HORACE DIAZ on 2016-08-10 05:00:08 PM VB Text End of Report [facility] Report Specimen (Source) Anatomical Collection Method Collection Time Re ceived Time Location / / Volume Laterality 08/10/2016 9:50 AM EST Glen Doyle MD VASCULAR ORDERABLES Performing Organization Address City/State/ZIP Code Phon e Number [facility] documented in this encounter Visit Diagnoses Diagnosis PAD (peripheral artery disease) Peripheral vascular disease, unspecified documented in this encounter Care Teams Front Office Attendant Relationship Specialty Start Date End Date Gordy Gregg MD PCP - General Family Medicine 05/19/[address] [place] [address] documented as of this encounter
--- OUTSIDE RECORDS SUMMARY | 2022-01-25 00:54 | XMS_ITS | Encounter Summary ---
:1950 [place] [address] Care Team Providers Name Role Phone Gordy Gregg MD Primary Care Provider [phone] Encounter Details Date Type Department Care Team Description 05/13/2018 Hospital Encounter Vascular Lab at [facility] Bharat Ever erosclerosis of robinson artery of right lower extremity with intermittent claudication; [place] , [place] Status post a shad knee [place]putation [place] [id number] Social History Tobacco Use Types Packs/Day Years Used Date Never Smoker Smokeless Tobacco: Never Used Alcohol Use Standard Drinks/Week Comments No 0 (1 standard drink = 0.6 oz pure alcoho l) Sex Assigned at Date Recorded Not on file documented as of this encounter Medications at Time of Discharge Medication Sig Dispensed Refills Start Date End Date ROSYAGLHOLLEY AQUINOIKPEN U-100 inject 20 units 0 09/20/19 18 INSULIN 100 unit/mL (3 subcutaneously at mL) pen bedtime DISCONTINUE LANTUS clopidogrel (PLAVIX) Take 1 tablet by mouth 30 tablet 11 01/2017 75 mg Tablet daily. sertraline (ZOLOFT) 25 Take 75 mg by [...] 4 hours as Tablet needed for Pain. isosorbide mononitrate take 1 tablet by mouth 0 0 11/13/2017 (IMDUR) 30 mg Tablet once daily Sustained Release 24 hr oxyCODONE (ROXICODONE) Take 1 tablet by mouth 30 tablet 0 0 08/03/2015 5 mg Tablet every 4 hours as needed for Pain (mild to moderate pain (1-6)). simvastatin (ZOCOR) 20 Take 20 mg by mouth 0 12/10/2019 mg Tablet nightly. documented as of this encounter Plan of Treatment Not on filedocumented as of this encounter Procedures Procedure Name Priority Date/Time Associated Diagnosis Comme nts SOSA, LEGS, Routine 05/13/2018 8:09 AM Atherosclerosis of Res ults for this MULTIPLE LEVELS EST robinson artery of right pr matt are in lower extremity with the res ults intermittent section. claudication Status post above knee amputation of left lower extremity documented in this encounter Results SOSA, legs, multiple levels (05/13/2018 8:09 AM EST) Component Value Ref Test Analysis Performed At [facility] Range Method Time Signature VB Text Department: Vascular Surgery Lab VASCUBASE Report Patient: [id number] (CARRIE PERRY) CPT: 08334 ICD10: Z89.612;I70.211 Referring Physician: SUZANNE TARANGO M.D. ?? Phone: Indications: Hx of L AKA, ??R claudication Diabetes mellitus: yes ICD10 Diagnosis Code: Z89.612, I70.211 Findings: Right ?Pressure (mm Hg) ?? SOSA ??Waveform ? TBI ?? Brachial Artery ?158 ? Dorsalis Pedis (Ankle) Arter y ?70 ?0.44 ??Monophasic ? Posterior Tibial (Ankle) Art gregory ??75 ?0.47 ??Monophasic ? Great Toe ?44 ?0.28 ?? Left ? Pressure (mm Hg) ?? Brachial Artery ?146 ? Interpretation: RIGHT: Moderately severe lower extremity arterial occlusive disease. No significant change compared to previous exam. LEFT: AKA Previous ABIs with change from previous value: Date ?RIGHT DP ?? RIGHT PT ?? RT GR TOE ??RT Sec T OE ??0.49 ? 0.52 ? 0.25 ? ---- ??---- ? ---- ? ---- ? ---- ??0.42 ? 0.57 ? 0.26 ? ---- ??0.53(+.11) 0.55(-.02) 0.26( .00) ---- ??0.21(-.32) 0.28(-.27) 0.05(-.21) ---- ??0.49(+.28) 0.53(+.25) 0.24(+.19) ---- ??0.48(-.01) 0.49(-.04) 0.21(-.03) ---- ??0.31(-.17) 0.34(-.15) 0.12(-.09) ---- ??0.33(+.02) 0.34( .00) 0.13(+.01) ---- ??0.26(-.07) 0.27(-.07) 0.11(-.02) ---- ??0.39(+.13) 0.41(+.14) 0.09(-.02) ---- ??0.39( .00) 0.33(-.08) 0.21(+.12) ---- ??0.41(+.02) 0.43(+.10) 0.23(+.02) ---- Current ? 0.44(+.03) 0.47(+.04) 0.28(+.05) ---- Date ?LEFT DP ?LEFT PT ?LT GR TOE LT Sec T OE ??0.32 ? 0.24 ? 0.12 ? ---- ??1.09(+.77) 1.01(+.77) 0.34(+.22) ---- ??0.95(-.14) 0.77(-.24) 0.43(+.09) ---- ??---- ? 0.12(-.65) 0.00(-.43) ---- ??0.09 ? 0.19(+.07) 0.00( .00) ---- ??0.31(+.22) 0.00(-.19) 0.06(+.06) ---- ??---- ? ---- ? ---- ? ---- ??---- ? ---- ? ---- ? ---- ??---- ? ---- ? ---- ? ---- ??---- ? ---- ? ---- ? ---- ??---- ? ---- ? ---- ? ---- ??---- ? ---- ? ---- ? ---- ??---- ? ---- ? ---- ? ---- Current ? ---- ? ---- ? ---- ? ---- Electronically Signed by: NATANAEL NUÑEZ on 2018-05-13 09:20: 33 PM VB Text End of Report VASCUBASE Report Specimen (Source) Anatomical Collection Method Collection Time Re ceived Time Location / / Volume Laterality 05/13/2018 8:09 AM EST Suzanne Tarango MD VASCULAR ORDERABLES Performing Organization Address City/State/ZIP Code Phon e Number VASCUBASE documented in this encounter Visit Diagnoses Diagnosis Atherosclerosis of robinson artery of righ t lower extremity with intermittent claudication Atherosclerosis of robinson arteries of th e extremities with intermittent claudication 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 documented in this encounter Care Teams Pit Manager Relationship Specialty Start Date End Date Gordy Gregg MD PCP - General Family Medicine 05/19/[address] [place] [address] documented as of this encounter
--- OUTSIDE RECORDS SUMMARY | 2022-01-25 00:54 | XMS_ITS | Encounter Summary ---
:1950 Author Organization [facility] [address] Care Team Providers Name Role Phone Gordy Gregg MD Primary Care Provider [phone] Encounter Details Date Type Department Care Team Description 08/10/2016 Orders Only [place] [facility] Sawant, [place] [address] Social History Tobacco Use Types Packs/Day Years Used Date Never Smoker Smokeless Tobacco: Never Used Alcohol Use Standard Drinks/Week Comments No 0 (1 standard drink = 0.6 oz pure alcoho l) Sex Assigned at Date Recorded Not on file documented as of this encounter Plan of Treatment Not on filedocumented as of this encounter Visit Diagnoses Not on filedocumented in this encounter Care Teams Industrial Education Instructor Relationship Specialty Start Date End Date Gordy Gregg MD PCP - General Family Medicine 05/19/[address] [place] [address] documented as of this encounter
--- OUTSIDE RECORDS SUMMARY | 2022-01-25 00:54 | XMS_ITS | Encounter Summary ---
:1950 Author Organization [place] [address] Care Team Providers Name Role Phone Gordy Gregg MD Primary Care Provider [phone] Reason for Referral Diagnostic Test (Routine) - Closed Specialty Diagnoses / Procedures Referred By Contact Refer red To Contact Diagnoses Unilateral Hope Martinez APRN [facility] Vascular Lab 3v Procedures SOSA, legs, multiple levels [facility] [place] [address] [place] [address] Referral ID Status Reason Start Date Expiration Date Visits V isits Requested Authorized [id number] Closed Specialty 11/22/2020 11/22/2021 1 1 Service Requested Encounter Details Date Type Department Care Team Description 11/22/2020 Office Visit Vascular Surgery at [facility] Hope Virk, Unilateral GERARDO [facility] [place] [address] [facility] [phone] VASCULAR SURGERY [place], [place] [address] (Wo rk) Social History Tobacco Use Types Packs/Day Years Used Date Never Smoker Smokeless Tobacco: Never Used Alcohol Use Standard Drinks/Week Comments No 0 (1 standard drink = 0.6 oz pure alcoho l) Sex Assigned at Date Recorded Not on file documented as of this encounter Last Filed Vital Signs Vital Sign Reading Time Taken Comments Blood Pressure 121/44 11/22/2020 1:25 PM EDT Pulse 58 11/22/2020 1:25 PM EDT Temperature - - Respiratory Rate - - Oxygen Saturation - - Inhaled Oxygen Concentration - - Weight 72.6 kg (160 lb) 11/22/2020 1:25 PM EDT Reported Height 152.4 cm (5') 11/22/2020 1:25 PM EDT Reported Body Mass Index 31.25 11/22/2020 1:25 PM EDT documented in this encounter Progress Notes Hope Virk, WET PROCESS OPERATOR - 11/22/2020 1:30 PM EDT This patient returned to the vascular clinic today for reevaluation of her PAD. Ms. Perry is a 70 y/o F with PMH: DMII, HTN, HLD, NSTEMI, CHF and s/p left AKA in 07/2015 here for follow-up. Today, pt reports that she continues to do well. She walking with her left leg prosthesis and walkerat home. Denies rest pain, tissue loss, SOB, chest pain, TIA's She does not walk much but denies RLE claudication. Occational left groin superficial open area form rubbing of protheses. Denies s/sx of infection. She remains on aspirin, Plavix, and a statin and has never smoked. PMHx: Past Medical History: Diagnosis Date ??? Critical lower limb ischemia 07/23/2015 07/29/2015: Left AKA 07/27/2015: Left groin sartorius flap 07/24/2015: LLE marlynlotine amp, removal PTFE graft, left groin wound vac placement ??? DM (diabetes mellitus) metformin ??? HLD (hyperlipidemia) 03/24/2015 ??? HTN (hypertension) ??? Hypercholesterolemia ??? PVD (peripheral vascular disease) Medications: Medications 05/24/20 1310 Medication Sig Taking? OneTouch Ultra Blue Test Strip Strip TEST 3 TIMES A DAY hydroCHLOROthiazide (Hydrodiuril) 12.5 mg Tablet TAKE 1 TABLET BY MOUTH DAILY atorvastatin (Lipitor) 40 mg Tablet TAKE 1 TABLET BY MOUTH AT BEDTIME amLODIPine (Norvasc) 5 mg Tablet TK 1 T PO QD fenofibrate (TRICOR) 54 mg Tablet TAKE ONE TABLET BY MOUTH DAILY Jardiance 10 mg Tablet TK 1 T PO QD isosorbide dinitrate (Isordil) 30 mg Tablet Take 30 mg by mouth 4 times daily. ROSYSANKETHOLLEY CARRIZALES U-100 INSULIN 100 unit/mL (3 mL) pen inject 20 units subcutaneously at bedtime DISCONTINUE LANTUS isosorbide mononitrate (IMDUR) 30 mg Tablet Sustained Release 24 hr take 1 tablet by mouth once daily clopidogrel (PLAVIX) 75 mg Tablet Take 1 tablet by mouth daily. sertraline (ZOLOFT) 25 mg Tablet Take 75 mg by mouth daily. Takes with 50mg Magnesium Oxide 250 mg Tablet Take 1-2 tablets by mouth daily. meTOPROLOL succinate (TOPROL-XL) 25 mg Tablet Sustained Release 24 hr Take 1 tablet by mouth daily. traZODone (DESYREL) 50 mg Tablet Take 50 mg by mouth nightly. lisinopril (PRINIVIL;ZESTRIL) 5 mg Tablet Take 1 tablet by mouth daily. nitroGLYcerin (NITROSTAT) 0.4 mg Tablet, Sublingual Place 1 tablet under the tongue every 5 minutes as needed for Chest pain. pantoprazole (PROTONIX) 40 mg Tablet, Delayed Release (E.C.) Take 1 tablet by mouth daily. gabapentin (NEURONTIN) 300 mg Capsule Take 2 capsules by mouth 2 times daily. Indications: Neuropathic Pain insulin aspart (NOVOLOG) Solution Inject 1-4 Units subcutaneously every 4 hours. oxyCODONE (ROXICODONE) 5 mg Tablet Take 1 tablet by mouth every 4 hours as needed for Pain (mild to moderate pain (1-6)). sertraline (ZOLOFT) 50 mg Tablet Take 75 mg by mouth daily. Takes with 25mg aspirin 81 mg Tablet, Delayed Release (E.C.) Take 1 tablet by mouth daily. acetaminophen (TYLENOL) 325 mg Tablet Take 325 mg by mouth every 4 hours as needed for Pain. Allergies: No Known Allergies Physical Exam: Vitals: General: NAD, appears well Neuro: Alert and oriented, motor sensory grossly intact Lungs: CTA Heart: RRR Abd: Soft, NT, ND, no palpable pulsatile masses Extremity - [place], warm, no ulceration, brisk capillary refill, no edema Left groin wound. Vascular: R L Radial 2/2 2/2 DP 1/2 - PT 1/2 - ABIs Right ?Pressure (mm Hg) ?? SOSA ??Waveform ? TBI ?? Brachial Artery ?106 ? Dorsalis Pedis (Ankle) Artery ?56 ?0.48 ??Monophasic ? Posterior Tibial (Ankle) Artery ??56 ?0.48 ??Monophasic ? Great Toe ?35 ?0.30 ? Left ? Pressure (mm Hg) ?? Brachial Artery ?116 ? Dorsalis Pedis (Ankle) Artery ?AKA ? Posterior Tibial (Ankle) Artery ??AKA ? Interpretation: ??RIGHT: Moderately severe lower extremity arterial occlusive disease at rest. No significant change compared to the exam on 05/24/2020. ?? LEFT: AKA. ?? Assessment/Plan: 69 yo female s/p L AKA 07/2015. SOSA's stable on right, R DP 0.48, R PT 0.48. Toe pressure 35. Denies claudication, rest pain or tissue loss. Medi-honey daily to left thigh abrasion, cover with dry dressing, continue PRN. Continue ASA, Plavix, statin. RTC 12 months with ABIs; or before if problems. documented in this encounter Plan of Treatment Not on filedocumented as of this encounter Results SOSA, legs, multiple levels (11/24/2021 9:53 AM EDT) Component Value Ref Test Analysis Performed At [facility] Range Method Time Signature VB Text Department: Vascular Surgery Lab VASCUBASE Report Patient: [id number] (CARRIE PERRY) CPT: 95890 Referring Physician: HOPE VIRK APRN ?? Phone: Indications: ??F/U PAD, s/p L AKA Diabetes mellitus: ??Yes Findings: Right ?Pressure (mm Hg) ?? SOSA ??Waveform ? TBI ?? Brachial Artery ?130 ? Dorsalis Pedis (Ankle) Arter y ?62 ?0.48 ??Monophasic ? Posterior Tibial (Ankle) Art gregory ??65 ?0.50 ??Monophasic ? Great Toe ?36 ?0.28 ?? Left ? Pressure (mm Hg) ?? Brachial Artery ?128 ? Dorsalis Pedis (Ankle) Artery ?AKA ? Posterior Tibial (Ankle) Artery ??AKA ? Great Toe ?AKA ? Interpretation: RIGHT: Moderately severe lower extremity arterial occlusive disease. No significant change from previous exam. LEFT: ??AKA Previous ABIs with change from previous value: Date ?RIGHT DP ?? RIGHT PT ?? RT GR TOE ??RT Sec T OE ??0.26 ? 0.27 ? 0.11 ? ---- ??0.39(+.13) 0.41(+.14) 0.09(-.02) ---- ??0.39( .00) 0.33(-.08) 0.21(+.12) ---- ??0.41(+.02) 0.43(+.10) 0.23(+.02) ---- ??0.44(+.03) 0.47(+.04) 0.28(+.05) ---- ??0.50(+.06) 0.51(+.04) 0.26(-.02) ---- ??0.41(-.09) 0.37(-.14) 0.28(+.02) ---- ??0.47(+.06) 0.53(+.16) 0.28( .00) ---- ??0.48(+.01) 0.48(-.05) 0.30(+.02) ---- Current ? 0.48( .00) 0.50(+.02) 0.28(-.02) ---- Date ?LEFT DP ?LEFT PT ?LT GR TOE LT Sec T OE ??---- ? ---- ? ---- ? ---- [...] ---- ? ---- ? ---- ? ---- More studies have been completed than are shown. Electronically Signed by: ROBIN CHEN on 2021-11-25 01:46 :10 PM VB Text End of Report VASCUBASE Report Specimen (Source) Anatomical Collection Method Collection Time Re ceived Time Location / / Volume Laterality 11/24/2021 9:53 AM EDT Hope Virk APRN VASCULAR ORDERABLES Performing Organization Address City/State/ZIP Code Phon e Number VASCUBASE documented in this encounter Visit Diagnoses Diagnosis Unilateral AKA Traumatic amputation of leg(s) (complete ) (partial), unilateral, at or above knee, without mention of complication documented in this encounter Care Teams Egg Processing Supervisor Relationship Specialty Start Date End Date Gordy Gregg MD PCP - General Family Medicine 05/19/15 [address] [place] [address] documented as of this encounter
--- OUTSIDE RECORDS SUMMARY | 2022-01-25 00:54 | XMS_ITS | Encounter Summary ---
:1950 Author Organization [facility] [place] [address] Care Team Providers Name Role Phone Gordy Gregg MD Primary Care Provider [phone] Encounter Details Date Type Department Care Team Description 11/22/2020 Tech Visit Vascular Lab at [facility], [place] artery of right lower Hospital extremity with [facility] [place] [phone] Social History Tobacco Use Types Packs/Day Years [...] Associated Diagnosis Comme nts SOSA, LEGS, Routine 11/22/2020 12:55 Atherosclerosis of Resul ts for this MULTIPLE LEVELS PM EDT [place] artery of right pr ocedure are in lower extremity with the res ults intermittent section. claudication documented in this encounter Results SOSA, legs, multiple levels (11/22/2020 12:55 PM EDT) Component Value Ref Test Analysis Performed At [facility] Range Method Time Signature VB Text Department: Vascular Surgery Lab VASCUBASE Report Patient: [id number] (CARRIE PERRY) CPT: 54289 ICD10: I70.211 Referring Physician: MARGI LOCKHART ?? Phone: Indications: 70 year old female with PAD, LEFT AKA and RIGHT claudication, ? perfusion on RIGHT Diabetes mellitus: Yes ICD10 Diagnosis Code: I70.211 Findings: Right ?Pressure (mm Hg) ?? SOSA ??Waveform ? TBI ?? Brachial Artery ?106 ? Dorsalis Pedis (Ankle) Arter y ?56 ?0.48 ??Monophasic ? Posterior Tibial (Ankle) Art gregory ??56 ?0.48 ??Monophasic ? Great Toe ?35 ?0.30 ?? Left ? Pressure (mm Hg) ?? Brachial Artery ?116 ? Dorsalis Pedis (Ankle) Artery ?AKA ? Posterior Tibial (Ankle) Artery ??AKA ? Interpretation: RIGHT: Moderately severe low er extremity arterial occlusive disease at rest. No significant change compared to the exam on 05/24/2020. LEFT: AKA. Previous ABIs with change from previous value: Date ?RIGHT DP ?? RIGHT PT ?? RT GR TOE ??RT Sec T OE ??0.33 ? 0.34 ? 0.13 ? ---- ??0.26(-.07) 0.27(-.07) 0.11(-.02) ---- ??0.39(+.13) 0.41(+.14) 0.09(-.02) ---- ??0.39( .00) 0.33(-.08) 0.21(+.12) ---- ??0.41(+.02) 0.43(+.10) 0.23(+.02) ---- ??0.44(+.03) 0.47(+.04) 0.28(+.05) ---- ??0.50(+.06) 0.51(+.04) 0.26(-.02) ---- ??0.41(-.09) 0.37(-.14) 0.28(+.02) ---- ??0.47(+.06) 0.53(+.16) 0.28( .00) ---- Current ? 0.48(+.01) 0.48(-.05) 0.30(+.02) ---- Date ?LEFT DP ?LEFT PT ?LT [...] completed than are shown. Electronically Signed by: ARMNI PRITCHETT on 2020-11-23 03: 26:01 PM VB Text End of Report VASCUBASE Report Specimen (Source) Anatomical Collection Method Collection Time Re ceived Time Location / / Volume Laterality 11/22/2020 12:55 PM EDT Margi Lockhart APRN VASCULAR ORDERABLES Performing Organization Address City/State/ZIP Code Phon e Number VASCUBASE documented in this encounter Visit Diagnoses Diagnosis Atherosclerosis of [place] artery of righ t lower extremity with intermittent claudication Atherosclerosis of [place] arteries of th e extremities with intermittent claudication documented in this encounter Care Teams Soft Water Mechanic Relationship Specialty Start Date End Date Gordy Gregg MD PCP - General Family Medicine 05/19/[address] [place] [address] documented as of this encounter
--- OUTSIDE RECORDS SUMMARY | 2022-01-25 00:54 | XMS_ITS | Encounter Summary ---
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 [facility] [place]ASCULAR [place] [id number] [phone] Social History Tobacco Use Types Packs/Day Years Used Date Never Smoker Smokeless Tobacco: Never Used Alcohol Use Standard Drinks/Week Comments No 0 (1 standard drink = 0.6 oz pure alcoho l) Sex Assigned at Date Recorded Not on file documented as of this encounter Last Filed Vital Signs Vital Sign Reading Time Taken Comments Blood Pressure 159/63 05/07/2017 10:27 AM EDT Pulse 55 05/07/2017 10:27 AM EDT Temperature - - Respiratory Rate - - Oxygen Saturation - - Inhaled Oxygen Concentration - - Weight 62.1 kg (137 lb) 05/07/2017 10:27 AM EDT Height 152.4 cm (5') 05/07/2017 10:27 AM EDT Body Mass Index 26.76 05/07/2017 10:27 AM EDT documented in this encounter Patient Instructions Patient InstructionsRadha Waller PA - 05/07/2017 10:30 AM EDT Ms. Perry has plans to see her rat trapper (Dr. Aleman) within the next 2-3 weeks for routine follow up. I have encouraged her to monitor her right 4th toe to ensure no open tissue loss or signs of infection develop. If these do occur she is unlikely to heal them without revascularization. She should continue to monitor her right leg closely and contact us if there are any signs of rest pain or tissue loss. She may continue to use her leg for exercise to help promote collateral flow but should avoid injury to the foot as a wound that develops there is unlikely to heal without intervention at this point. If her right leg remains stable we will repeat ABIs again in 6 months and I can see her in the office at that time again. Please do not hesitate to call with questions/concerns. documented in this encounter Progress Notes Radha Waller PA - 05/07/2017 10:30 AM EDT This patient returned to the vascular clinic today for reevaluation of her PAD. Ms. Perry reports that she continues to do well. She did have a fall recently and was experiencing some difficulty with the positioning of her left foot on her prosthesis but saw her prosthetician for this and they have resolved the issue. She continues to ambulate with the use of a left leg prosthesis and a walker at home (s/p left AKA Jul 2015). 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 She continues to note that right calf tires quickly when walking, about 50-100 feet, but she continues to deny rest pain or any tissue loss on the right foot. At her last appointment she had accidentally bumped her right medial ankle into the screw on her wheelchair wheel but this area healed without incident. Now, she is monitoring a small area on the lateral edge of her right 4th toe nail which is uncomfortable and slightly whitish in appearance. She is concerned that perhaps she is developing a small ingrown area but has not had any redness or drainage develop. PMHx: Past Medical History: Diagnosis Date ??? Critical lower limb ischemia 07/23/2015 07/29/2015: Left AKA 07/27/2015: Left groin sartorius flap 07/24/2015: LLE guillotine amp, removal PTFE graft, left groin wound vac placement ??? DM (diabetes mellitus) metformin ??? HLD (hyperlipidemia) 03/24/2015 ??? HTN (hypertension) ??? Hypercholesterolemia ??? PVD (peripheral vascular disease) SxHx: Past Surgical History: Procedure Laterality Date ??? PRO AMPUTATE THIGH, SECONDRY CLOSUR Left 07/29/2015 AMPUTATION, ABOVE-KNEE, SECONDARY CLOSURE OR SCAR REVISION performed by Elicia Caal MD at [facility] MAIN OR ??? PRO AMPUTATION LOW LEG, CIRCULAR Left 07/24/2015 @AMPUTATION, BELOW-KNEE, OPEN, GUILLOTINE performed by Elicia Caal MD at [facility] OR ??? PRO BYPASS GRAFT OTHR, FEM-TIBIAL Left 05/26/2015 @BYPASS GRAFT, FEM-ANT TIBIAL, -POST TIBIAL, -PERONEAL, -DP W\ SYNTHETIC CONDUIT performed by Mariano Doyle MD at [facility] OR ??? PRO BYPASS GRAFT VEIN PATCH/CUFF, SYNTHETIC Left 05/26/2015 PLACEMENT VEIN PATCH OR CUFF AT DISTAL ANASTOMOSIS OF BYPASS GRAFT, SYNTHETIC CONDUIT , RODRIGUEZ-COLLAR, RACHELLE-PATCH, ADD-ON CODE, LOWER EXTREMITY performed by Mariano Doyle MD at [facility] OR ? ? PRO DEBRIDEMENT SUBCUTANEOUS TISSUE 20 SQCM/< Left 07/27/2015 DEBRIDEMENT SKIN AND SUBCU, LOWER EXTREMITY performed by Elicia Caal MD at [facility] OR ??? PRO DRESSING CHANGE UNDER ANESTHESIA Left 07/29/2015 DRESSING CHANGE (FOR OTHER THAN ESCALANTE) UNDER ANES., LOWER EXTREMITY performed by Elicia Caal MD at [facility] OR ??? PRO EXCISION, INFEC GRAFT, EXTREMITY Left 07/24/2015 EXCISION OF INFECTED GRAFT FROM LOWER EXTREMITY performed by Elicia Caal MD at [facility] OR ??? PRO EXPLORATION, FEMORAL ARTERY Left 07/24/2015 @EXPLORATION, W/WO LYSIS, FEMORAL ARTERY W\O SURGICAL REPAIR performed by Elicia Caal MD at [facility] OR ??? PRO MUSCLE-SKIN FLAP, LEG Left 07/27/2015 FLAP, MYOCUTANEOUS OR FASCIOCUTANEOUS, LOWER EXTREMITY performed by Elicia Caal MD at [facility] MAIN OR ??? PRO NEGATIVE PRESSURE WOUND THERAPY, LESS THAN OR EQUAL TO 50 SQCM Left 07/24/2015 DRESSING CHANGE (VAC ASSISTED) UP TO 50SQ.CM performed by Elicia Caal MD at [facility] MAIN OR ??? PRO REBL VES DIRECT, LOW EXTREM Left 07/24/2015 REPAIR LOWER EXTREMITY BLOOD VESSEL, DIRECT, NO PATCH OR GRAFT performed by Elicia Caal MD at [facility] MAIN OR ??? PRO REOPERATION, BYPASS GRAFT Left 05/26/2015 @RE-OP FOR RE-DO LOWER EXTREMITY BYPASS GRAFT, >1 MONTH P\ ORIGINAL SURGERY, ADD-ON CODE performed by Mariano Doyle MD at [facility] MAIN OR ??? PRO THROMBOENDARTECTMY ILIOFEMORAL Left 05/26/2015 @ENDARTERECTOMY, ILIOFEMORAL W OR W/O PATCH GRAFT performed by Mariano Doyle MD at [facility] MAIN OR ??? PRO VEIN BYPASS GRAFT, FEM-TIBIAL Left 03/18/2015 Left SFA to peroneal bypass with vein ??? SKIN GRAFT Left left 2nd metacarpal Social Hx: Social History Substance Use Topics ??? Smoking status: Never Smoker ??? Smokeless tobacco: Never Used ??? Alcohol use No Medications: Medications 05/07/17 1030 Medication Sig Taking? clopidogrel (PLAVIX) 75 mg Tablet Take 1 tablet by mouth daily. Yes simvastatin (ZOCOR) 20 mg Tablet Take 20 mg by mouth nightly. Yes sertraline (ZOLOFT) 25 mg Tablet Take 75 mg by mouth daily. Takes with 50mg Yes Magnesium Oxide 250 mg Tablet Take 1-2 tablets by mouth daily. Yes meTOPROLOL succinate (TOPROL-XL) 25 mg Tablet Sustained Release 24 hr Take 1 tablet by mouth daily. Yes traZODone (DESYREL) 50 mg Tablet Take 50 mg by mouth nightly. Yes insulin glargine (LANTUS) Solution Inject 22 Units subcutaneously nightly. Yes lisinopril (PRINIVIL;ZESTRIL) 5 mg Tablet Take 1 tablet by mouth daily. Yes nitroGLYcerin (NITROSTAT) 0.4 mg Tablet, Sublingual Place 1 tablet under the tongue every 5 minutes as needed for Chest pain. Yes pantoprazole (PROTONIX) 40 mg Tablet, Delayed Release (E.C.) Take 1 tablet by mouth daily. Yes gabapentin (NEURONTIN) 300 mg Capsule Take 2 capsules by mouth 2 times daily. Indications: Neuropathic Pain Yes insulin aspart (NOVOLOG) Solution Inject 1-4 Units subcutaneously every 4 hours. Yes oxyCODONE (ROXICODONE) 5 mg Tablet Take 1 tablet by mouth every 4 hours as needed for Pain (mild to moderate pain (1-6)). Yes sertraline (ZOLOFT) 50 mg Tablet Take 75 mg by mouth daily. Takes with 25mg Yes aspirin 81 mg Tablet, Delayed Release (E.C.) Take 1 tablet by mouth daily. Yes acetaminophen (TYLENOL) 325 mg Tablet Take 325 mg by mouth every 4 hours as needed for Pain. Yes Allergies: No Known Allergies Review of Systems: Constitutional (weight change, fever) - Denies Neuro (dizziness, seizures, numbness, tingling) - Denies Eyes (vision) - Denies Ears, nose, throat (hearing) - Denies Cardiovascular (CP) - Denies Respiratory (SOB) - Denies GI (abd pain, nausea, emesis, blood in stool) - Denies (hematuria, dysuria, frequency) - Denies Muscoloskeletal (extremity pain, weakness) - as per HPI Skin (ulcers, rashes) - as per HPI All other ROS negative Physical Exam: Vitals: Most Recent Vitals: 05/07/17 1027 BP: 159/63 Pulse: 55 Gen: No acute distress. HEENT: Normocephalic, atraumatic. No scleral icterus. (+) glasses Neck: Supple, no JVD. Heart: Regular rate and rhythm. Lungs: Regular respiratory rate with no increased work of breathing. Extremities: Nonpalp right pop or pedal pulses. Right foot - no right foot open tissue loss. Prior area of concern on right medial malleolus healed.Current area of concern on lateral border of right 4th toe nailbed with thickened whitish skin but without fluctuance, erythema, or drainage. Mild dependant rubor of forefoot present. No gross motor/sensory deficits on exam. Psych: AAOx3 Studies: ABIs: 05/07/17 Right ?Pressure (mm Hg) ?? SOSA ??Waveform ? TBI ?? Brachial Artery ?169 ? Dorsalis Pedis (Ankle) Artery ?67 ?0.39 ??Monophasic ? Posterior Tibial (Ankle) Artery ??58 ?0.33 ??Monophasic ? Great Toe ?36 ?0.21 ?? Left ? Pressure (mm Hg) ?? Brachial Artery ?174 ? Interpretation: RIGHT: Moderately severe lower extremity arterial occlusive disease. No significant change compared to previous exam. LEFT: ??BKA. Impression: Atherosclerotic PAD with right leg claudication S/p left AKA, s/p resection infected LLE bypass graft with left groin wound sartorius muscle flap Recommendations: Ms. Perry has plans to see her rat trapper (Dr. Aleman) within the next 2-3 weeks for routine follow up. I have encouraged her to monitor her right 4th toe to ensure no open tissue lossor signs of infection develop. If these do occur she is unlikely to heal them without revascularization. She should continue to monitor her right leg closely and contact us if there are any signs of rest pain or tissue loss. She may continue to use her leg for exercise to help promote collateral flow but should avoid injury to the foot as a wound that develops there is unlikely to heal without intervention at this point. If her right leg remains stable we will repeat ABIs again in 6 months and I can see her in the office at that time again. Please do not hesitate to call with questions/concerns. documented in this encounter Plan of Treatment Not on filedocumented as of this encounter Results SOSA, legs, multiple levels (11/21/2017 10:20 AM EDT) Component Value Ref Test Analysis Performed At [facility] Range Method Time Signature VB Text Department: Vascular Surgery Lab VASCUBASE Report Patient: [id number] (CARRIE PERRY) CPT: 22731 ICD10: Z89.612;I70.211 Referring Physician: ANTOLIN MULLEN ?? Indications: Patient with h/o left AKA, PAD and right leg cl audication, ? change in right SOSA Diabetes mellitus: Yes ICD10 Diagnosis Code: Z89.612, I70.211 Findings: Right ?Pressure (mm Hg) ?? SOSA ??Waveform ? TBI ?? Brachial Artery ?162 ? Dorsalis Pedis (Ankle) Arter y ?67 ?0.41 ??Monophasic ? Posterior Tibial (Ankle) Art gregory ??69 ?0.43 ??Monophasic ? Great Toe ?37 ?0.23 ?? Left ? Pressure (mm Hg) ?? Brachial Artery ?160 ? Interpretation: RIGHT: Moderately severe lower extremity arterial occlusive disease. No identifiable change when com pared to the previous exam performed on 05/07/2017. LEFT: AKA Previous ABIs with change from previous value: Date RIGHT DP RIGHT PT RT GR TOE RT Sec TOE LEFT DP LE FT PT LT GR TOE LT Sec TOE 0.49 0.52 0.25 ---- 0.32 0.24 0.12 ---- ---- ---- ---- ---- 1.09(+.77) 1.01(+.77) 0.34(+. 22) ---- 0.42 0.57 0.26 ---- 0.95(-.14) 0.77(-.24) 0.43(+. 09) ---- 0.53(+.11) 0.55(-.02) 0.26( .00) ---- ---- 0.12 (-.65) 0.00(-.43) ---- 0.21(-.32) 0.28(-.27) 0.05(-.21) ---- 0.09 0.19 (+.07) 0.00( .00) ---- 0.49(+.28) 0.53(+.25) 0.24(+.19) ---- 0.31(+.22) 0.00(-.19) 0.06(+.06) ---- 0.48(-.01) 0.49(-.04) 0.21(-.03) ---- ---- ---- - --- ---- 0.31(-.17) 0.34(-.15) 0.12(-.09) ---- ---- ---- - --- ---- 0.33(+.02) 0.34( .00) 0.13(+.01) ---- ---- ---- - --- ---- 0.26(-.07) 0.27(-.07) 0.11(-.02) ---- ---- ---- - --- ---- 0.39(+.13) 0.41(+.14) 0.09(-.02) ---- ---- ---- - --- ---- 0.39( .00) 0.33(-.08) 0.21(+.12) ---- ---- ---- - --- ---- Current 0.41(+.02) 0.43(+.10) 0.23(+.02) ---- ---- ---- ---- ---- Electronically Signed by: SUZANNE LIN M.D. on 2017-11-21 02 :00:46 PM VB Text End of Report VASCUBASE Report Specimen (Source) Anatomical Collection Method Collection Time Re ceived Time Location / / Volume Laterality 11/21/2017 10:20 AM EDT Narrative This result has an attachment that is no t available. 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
--- OUTSIDE RECORDS SUMMARY | 2022-01-25 00:54 | XMS_ITS | Encounter Summary ---
:1950 Author Organization [facility] [address] Care Team Providers Name Role Phone Gordy Gregg MD Primary Care Provider [phone] Encounter Details Date Type Department Care Team Description 09/28/2019 Telephone Vascular Surgery at [facility] [place] [place] [facility] [place] [phone] Social History Tobacco Use Types Packs/Day Years Used Date Never Smoker Smokeless Tobacco: Never Used Alcohol Use Standard Drinks/Week Comments No 0 (1 standard drink = 0.6 oz pure alcoho l) Sex Assigned at Date Recorded Not on file documented as of this encounter Miscellaneous Notes Telephone Encounter - Deepali Pascual - 09/28/2019 2:24 PM EDT Tried to call patient at number listed, but it has been disconnected. Left a message on siblings phone to please call back. documented in this encounter Plan of Treatment Not on filedocumented as of this encounter Visit Diagnoses Not on filedocumented in this encounter Care Teams Margin Trimmer Relationship Specialty Start Date End Date Gordy Gregg MD PCP - General Family Medicine 05/19/[address] [place], [place] [id number] documented as of this encounter
--- OUTSIDE RECORDS SUMMARY | 2022-01-25 00:54 | XMS_ITS | Encounter Summary ---
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; [facility] [address] PAD (peripheral artery disease) [facility] [place] [id number] [phone] Social History Tobacco Use Types Packs/Day Years Used Date Never Smoker Smokeless Tobacco: Never Used Alcohol Use Standard Drinks/Week Comments No 0 (1 standard drink = 0.6 oz pure alcoho l) Sex Assigned at Date Recorded Not on file documented as of this encounter Last Filed Vital Signs Vital Sign Reading Time Taken Comments Blood Pressure 136/57 02/21/2016 10:55 AM EDT Pulse 49 02/21/2016 10:55 AM EDT Temperature - - Respiratory Rate 18 02/21/2016 10:55 AM EDT Oxygen Saturation - - Inhaled Oxygen Concentration - - Weight 49 kg (108 lb) 02/21/2016 10:55 AM EDT Height 152.4 cm (5') 02/21/2016 10:55 AM EDT Body Mass Index 21.09 02/21/2016 10:55 AM EDT documented in this encounter Patient Instructions Patient InstructionsRadha Waller PA - 02/21/2016 11:00 AM EDT The left groin incisional wound appears to be an erosion related to pressure from her left leg prosthesis and/or moisture of the groin area. I have asked her to stop using tape to the skin in that area to prevent any new wounds from developing. She may wash the groin incision with mild soap and wateronce daily and then should dry the area thoroughly. I would avoid any topical ointments to this areato prevent further maceration/moisture in that area. Instead, she may try to tuck a piece of dry gauze into the groin fold which can be held in place loosely under her panty line which should help prevent additional moisture from developing. She should work with her prosthesis company to adjust her left amp sleeves to fit correctly and avoid pressure on the incision. If this area is worsening then she must contact me. I will call her by phone in 2 weeks to check on her status. Otherwise, her right foot pressures have slightly declined but her symptoms have not significantly progressed on the right. I have asked her to continue to monitor her right leg closely [...] stable we will repeat ABIs again in 3 months and I can see her in the office at that time again. documented in this encounter Progress Notes Radha Waller PA - 02/21/2016 11:00 AM EDT This patient returned to the vascular clinic today for reevaluation of her left groin wound. After her last visit the left groin incision went on to heal completely in early January 2016. Since that time she has been working aggressively with PT to ambulate with the use of a left leg prosthesis (s/p left AKA Jul 2015). She has been doing well with walking with the prosthesis but has had to move into a new apartment and has been doing a lot of unpacking. Often times she does this in her wheelchair instead of with her prosthesis because she is better able to move items around. However, with the increased activity, the recent very hot humid weather, and some rubbing that she is experiencing fromher prosthesis she has reopened a new section on her prior left groin incision line. This has had some very mild drainage over the past week but it has not increased and there has been no surrounding erythema, malodor, fevers/chills. She has developed some blistering around this area from the tape that she has been using to secure a dry dressing in place over the incision line to try to protect it from her prosthesis. On some days she feels that her prosthesis sleeve fits well and other days it is either too big or too small depending on whether she has some swelling of the left AKA stump or not. She has been working with her prosthetic company to manage this but has been unable to find a consistent fit for her left leg yet. She continues to exercise her right leg and uses it to maneuver in her wheelchair and when she is walking. She complains that her right calf does seem to become tired very quickly but continues to denyrest pain or any tissue loss on the right foot. She has noticed some mild numbness of her toes at times but has been cautious to avoid injury to her right foot. PMHx: Past Medical History Diagnosis Date ??? Critical lower limb ischemia 07/23/2015 07/29/2015: Left AKA 07/27/2015: Left groin sartorius flap 07/24/2015: GIORGIOE anahi amp, removal PTFE graft, left groin wound vac placement ??? DM (diabetes mellitus) metformin ??? HLD (hyperlipidemia) 03/24/2015 ??? HTN (hypertension) ??? Hypercholesterolemia ??? PVD (peripheral vascular disease) SxHx: Past Surgical History Procedure Laterality Date ??? Skin graft Left left 2nd metacarpal ??? Pro vein bypass graft, fem-tibial Left 03/18/2015 Left SFA to peroneal bypass with vein ??? Pro bypass graft othr, fem-tibial Left 05/26/2015 @BYPASS GRAFT, FEM-ANT TIBIAL, -POST TIBIAL, -PERONEAL, -DP W\ SYNTHETIC CONDUIT performed by Glen Doyle MD at [facility] MAIN OR ??? Pro bypass graft vein patch/cuff, synthetic Left 05/26/2015 PLACEMENT VEIN PATCH OR CUFF AT DISTAL ANASTOMOSIS OF BYPASS GRAFT, SYNTHETIC CONDUIT , RODRIGUEZ-COLLAR, RACHELLE-PATCH, ADD-ON CODE, LOWER EXTREMITY performed by Glen Doyle MD at [facility] OR ??? Pro thromboendartectmy iliofemoral Left 05/26/2015 @ENDARTERECTOMY, ILIOFEMORAL W OR W/O PATCH GRAFT performed by Glen Doyle MD at [facility] OR ??? Pro reoperation, bypass graft Left 05/26/2015 @RE-OP FOR RE-DO LOWER EXTREMITY BYPASS GRAFT, >1 MONTH P\ ORIGINAL SURGERY, ADD-ON CODE performed by Glen Doyle MD at [facility] OR ??? Pro amputation low leg, circular Left 07/24/2015 @AMPUTATION, BELOW-KNEE, OPEN, GUILLOTINE performed by Elicia Caal MD at [facility] OR ??? Pro exploration, femoral artery Left 07/24/2015 @EXPLORATION, W/WO LYSIS, FEMORAL ARTERY W\O SURGICAL REPAIR performed by Elicia Caal MD at [facility] OR ??? Pro negative pressure wound therapy, less than or equal to 50 sqcm Left 07/24/2015 DRESSING CHANGE (VAC ASSISTED) UP TO 50SQ.CM performed by Elicia Caal MD at [facility] OR ??? Pro rebl ves direct, low extrem Left 07/24/2015 REPAIR LOWER EXTREMITY BLOOD VESSEL, DIRECT, NO PATCH OR GRAFT performed by Elicia Caal MD at [facility] OR ??? Pro excision, infec graft, extremity Left 07/24/2015 EXCISION OF INFECTED GRAFT FROM LOWER EXTREMITY performed by Elicia Caal MD at [facility] OR ??? Pro muscle-skin flap, leg Left 07/27/2015 FLAP, MYOCUTANEOUS OR FASCIOCUTANEOUS, LOWER EXTREMITY performed by Elicia Caal MD at [facility] OR ? ? Pro debridement subcutaneous tissue 20 sqcm/< Left 07/27/2015 DEBRIDEMENT SKIN AND SUBCU, LOWER EXTREMITY performed by Elicia Caal MD at [facility] OR ??? Pro dressing change under anesthesia Left 07/29/2015 DRESSING CHANGE (FOR OTHER THAN ESCALANTE) UNDER ANES., LOWER EXTREMITY performed by Elicia Caal MD at [facility] MAIN OR ??? Pro amputate thigh, secondry closur Left 07/29/2015 AMPUTATION, ABOVE-KNEE, SECONDARY CLOSURE OR SCAR REVISION performed by Elicia Caal MD at [facility] MAIN OR Social Hx: Social History Substance Use Topics ??? Smoking status: Never Smoker ??? Smokeless tobacco: Never Used ??? Alcohol use No Medications: Medications 02/21/16 1447 Medication Sig Taking? doxycycline (VIBRA-TABS) 100 mg Tablet Take 100 mg by mouth 2 times daily. Yes traZODone (DESYREL) 50 mg Tablet Take 50 mg by mouth nightly. Yes insulin glargine (LANTUS) Solution Inject subcutaneously nightly. Yes clopidogrel (PLAVIX) 75 mg Tablet Take 1 tablet by mouth daily. Yes lisinopril (PRINIVIL;ZESTRIL) 5 mg Tablet Take 1 tablet by mouth daily. Yes LORazepam (ATIVAN) 0.5 mg Tablet Take 1 tablet by mouth every 6 hours as needed for Anxiety. Yes nitroGLYcerin (NITROSTAT) 0.4 mg Tablet, Sublingual [...] Yes sertraline (ZOLOFT) 50 mg Tablet Take 50 mg by mouth daily. Yes meTOPROLOL succinate (TOPROL-XL) 25 mg Tablet Sustained Release 24 hr Take 1 tablet by mouth daily. Yes multivitamin (THERAGRAN) Tablet Take 1 tablet by mouth daily. Yes aspirin 81 mg Tablet, Delayed Release (E.C.) Take 1 tablet by mouth daily. Yes simvastatin (ZOCOR) 20 mg Tablet Take 20 mg by mouth nightly. Yes acetaminophen (TYLENOL) 325 mg Tablet Take [...] All other ROS negative Physical Exam: Vitals: Vitals: 02/21/16 1055 BP: 136/57 Pulse: (!) 49 Resp: 18 Gen: No acute distress. HEENT: Normocephalic, atraumatic. No scleral icterus. (+) glasses Neck: Supple, no JVD. Heart: Regular rate and rhythm. Lungs: Regular respiratory rate with no increased work of breathing. Extremities: 2+ femoral pulses bilaterally, nonpalp right pop or pedal pulses. Left groin incision- There was a small erosion of the distal most end of the incision line measuring0.5 x 0.2 x 0.1 cm with no tunneling or any evidence of a draining sinus. There was no evidence of cellulitis or wound infection on exam today. There was some scaling dry skin along the remainder of the incision line but no other tissue loss of the original incision. There were a few scattered unroofed small blisters of the surrounding area consistent with tape injuries which also appeared to be without infection. Right foot - no tissue loss. Mild dependant rubor of forefoot present. No gross motor/sensory deficits on exam. Psych: AAOx3 Impression: left groin wound, s/p left AKA, s/p resection infected LLE bypass graft with left groin wound sartorius muscle flap and VAC placement, atherosclerotic PAD Recommendations: The left groin incisional wound appears to be an erosion related to pressure from her left leg prosthesis and/or moisture of the groin area. I have asked her to stop using tape to the skin in that area to prevent any new wounds from developing. She may wash the groin incision with mild soap and water once daily and then should dry the area thoroughly. I would avoid any topical ointments to this area to prevent further maceration/moisture in that area. Instead, she may try to tuck a piece of dry gauze into the groin fold which can be held in place loosely under her panty line which should help prevent additional moisture from developing. She should work with her prosthesis company to adjust her left amp sleeves to fit correctly and avoid pressure on the incision. If this area is worsening then she must contact me. I will call her by phone in 2 weeks to check on her status. Otherwise, her right foot pressures have slightly declined but her symptoms have not significantly progressed on the right. I have asked her to continue to monitor her right leg closely [...] stable we will repeat ABIs again in 3 months and I can see her in the office at that time again. documented in this encounter Plan of Treatment Not on filedocumented as of this encounter Results SOSA, legs, multiple levels (05/08/2016 9:11 AM EDT) Component Value Ref Test Analysis Performed At [facility] Range Method Time Signature VB Text Department: Vascular Surgery Lab [facility] Report Patient: [id number] (CARRIE PERRY) CPT: 50397 ICD10: I73.9 Referring Physician: NATANAEL NUÑEZ ?? Indications: ??PVD, s/p LEFT AKA, ? change Diabetes mellitus: Yes ICD10 Diagnosis Code: I73.9 Findings: Right ?Pressure (mm Hg) ?? SOSA ??Waveform ? TBI ?? Brachial Artery ?169 ? Dorsalis Pedis (Ankle) Arter y ?55 ?0.33 ??Monophasic ? Posterior Tibial (Ankle) Art gregory ??58 ?0.34 ??Monophasic ? Great Toe ?22 ?0.13 ?? Left ? Pressure (mm Hg) ?? Brachial Artery ?168 ? Interpretation: RIGHT: Moderately severe lower extremity arterial occlusive disease. No significant change compared to previous exam. LEFT: ??AKA Previous ABIs with [...] 0.12( -.09) ---- ? ---- ? ---- Current ? 0.33(+.02) 0.3 4( .00) 0.13(+.01) ---- ? ---- ? 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
--- OUTSIDE RECORDS SUMMARY | 2022-01-25 00:54 | XMS_ITS | Encounter Summary ---
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 [place] [id number] Social History Tobacco Use Types Packs/Day Years Used Date Never Smoker Smokeless Tobacco: Never Used Alcohol Use Standard Drinks/Week Comments No 0 (1 standard drink = 0.6 oz pure alcoho l) Sex Assigned at Date Recorded Not on file documented as of this encounter Last Filed Vital Signs Vital Sign Reading Time Taken Comments Blood Pressure 133/68 05/13/2018 10:00 AM EST Pulse 52 05/13/2018 10:00 AM EST Temperature - - Respiratory Rate 16 05/13/2018 10:00 AM EST Oxygen Saturation - - Inhaled Oxygen Concentration - - Weight 63.5 kg (140 lb) 05/13/2018 10:00 AM EST Height 152.4 cm (5') 05/13/2018 10:00 AM EST Body Mass Index 27.34 05/13/2018 10:00 AM EST documented in this encounter Patient Instructions Patient InstructionsRadha Waller PA - 05/13/2018 10:30 AM EST Ms. Perry has stable right leg perfusion and stable claudication. If her right leg remains stable weniurkall repeat ABIs again in 6 months and I can see her in the office at that time again. She should continue to monitor her right leg closely and contact us if there are any signs of worsening claudication, rest pain, or any tissue loss. She may continue to use her leg for exercise to helppromote collateral flow but should avoid injury to the foot as a wound that develops there is unlikely to heal without intervention at this point. I have recommended that she continue antiplatelet and statin daily and she should continue to monitor her blood pressure to ensure adequate control. Please do not hesitate to call with questions/concerns. I spent >50% of a 15 minute visit discussing test results and reviewing the above plan of care / recommendations. documented in this encounter Progress Notes Radha Waller PA - 05/13/2018 10:30 AM EST This patient returned to the vascular clinic today for reevaluation of her PAD. Ms. Perry reports that she continues to do well. 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 She has obtained a new socket and sleeve for her prosthesis which has helped her with ambulation. She still experiences right calf claudication when walking, by about 50 feet, and she pauses to restfor this to abdelrahman. She continues to deny rest pain or any tissue loss on the right foot. She remains on aspirin, Plavix, and a statin and has never smoked. PMHx: Past Medical History: Diagnosis Date ??? Critical lower limb ischemia 07/23/2015 07/29/2015: Left AKA 07/27/2015: Left groin sartorius flap 07/24/2015: [employer] christian amp, removal PTFE graft, left groin wound vac placement ??? DM (diabetes mellitus) metformin ??? HLD (hyperlipidemia) 03/24/2015 ??? HTN (hypertension) ??? Hypercholesterolemia ??? PVD (peripheral vascular disease) SxHx: Past Surgical History: Procedure Laterality Date ??? PRO AMPUTATE THIGH, SECONDRY CLOSUR Left 07/29/2015 AMPUTATION, ABOVE-KNEE, SECONDARY CLOSURE OR SCAR REVISION performed by Horace Diaz MD at [facility] OR ??? PRO AMPUTATION LOW LEG, CIRCULAR Left 07/24/2015 @AMPUTATION, BELOW-KNEE, OPEN, GUILLOTINE performed by Horace Diaz MD at [facility] OR ??? PRO BYPASS GRAFT OTHR, FEM-TIBIAL Left 05/26/2015 @BYPASS GRAFT, FEM-ANT TIBIAL, -POST TIBIAL, -PERONEAL, -DP W\ SYNTHETIC CONDUIT performed by Mariano Doyle MD at [facility] OR ??? PRO BYPASS GRAFT VEIN PATCH/CUFF, SYNTHETIC Left 05/26/2015 PLACEMENT VEIN PATCH OR CUFF AT DISTAL ANASTOMOSIS OF BYPASS GRAFT, SYNTHETIC CONDUIT , RODRIGUEZ-COLLAR, RACHELLE-PATCH, ADD-ON CODE, LOWER EXTREMITY performed by Mariano Doyle MD at [facility] OR ? ? PRO DEBRIDEMENT SUBCUTANEOUS TISSUE 20 SQCM/< Left 07/27/2015 DEBRIDEMENT SKIN AND SUBCU, LOWER EXTREMITY performed by Horace Diaz MD at [facility] OR ??? PRO DRESSING CHANGE UNDER ANESTHESIA Left 07/29/2015 DRESSING CHANGE (FOR OTHER THAN ESCALANTE) UNDER ANES., LOWER EXTREMITY performed by Horace Diaz MD at [facility] OR ??? PRO EXCISION, INFEC GRAFT, EXTREMITY Left 07/24/2015 EXCISION OF INFECTED GRAFT FROM LOWER EXTREMITY performed by Horace Diaz MD at [facility] OR ??? PRO EXPLORATION, FEMORAL ARTERY Left 07/24/2015 @EXPLORATION, W/WO LYSIS, FEMORAL ARTERY W\O SURGICAL REPAIR performed by Horace Diaz MD at [facility] OR ??? PRO MUSCLE-SKIN FLAP, LEG Left 07/27/2015 FLAP, MYOCUTANEOUS OR FASCIOCUTANEOUS, LOWER EXTREMITY performed by Horace Diaz MD at [facility] OR ??? PRO NEGATIVE PRESSURE WOUND THERAPY, LESS THAN OR EQUAL TO 50 SQCM Left 07/24/2015 DRESSING CHANGE (VAC ASSISTED) UP TO 50SQ.CM performed by Horace Diaz MD at [facility] OR ??? PRO REBL VES DIRECT, LOW EXTREM Left 07/24/2015 REPAIR LOWER EXTREMITY BLOOD VESSEL, DIRECT, NO PATCH OR GRAFT performed by Horace Diaz MD at [facility] MAIN OR ??? PRO REOPERATION, BYPASS GRAFT Left 05/26/2015 @RE-OP FOR RE-DO LOWER EXTREMITY BYPASS GRAFT, >1 MONTH P\ ORIGINAL SURGERY, ADD-ON CODE performed by Mariano Doyle MD at [facility] MAIN OR ??? PRO THROMBOENDARTECTMY ILIOFEMORAL Left 05/26/2015 @ENDARTERECTOMY, ILIOFEMORAL W OR W/O PATCH GRAFT performed by Mariano Doyle MD at [facility] MA[facility] OR ??? PRO VEIN BYPASS GRAFT, FEM-TIBIAL Left 03/18/2015 Left SFA to peroneal bypass with vein ??? SKIN GRAFT Left left 2nd metacarpal Social Hx: Social History Tobacco Use ??? Smoking status: Never Smoker ??? Smokeless tobacco: Never Used Substance Use Topics ??? Alcohol use: No Alcohol/week: 0.0 oz Medications: Medications 05/13/18 1017 Medication Sig Taking? NAZIA CARRIZALES U-100 INSULIN 100 unit/mL (3 mL) pen inject 20 units subcutaneously at bedtime DISCONTINUE LANTUS Yes isosorbide mononitrate (IMDUR) 30 mg Tablet Sustained Release 24 hr take 1 tablet by mouth once daily Yes clopidogrel (PLAVIX) 75 mg Tablet Take [...] Take 50 mg by mouth nightly. Yes lisinopril (PRINIVIL;ZESTRIL) 5 mg Tablet [...] negative Physical Exam: Vitals: Most Recent Vitals: 05/13/18 1000 BP: 133/68 Pulse: 52 Resp: 16 PainSc: 0 - No pain Gen: No acute distress. HEENT: Normocephalic, atraumatic. No scleral icterus. (+) glasses Neck: Supple, no JVD. Heart: Regular rate and rhythm. Lungs: Regular respiratory rate with no increased work of breathing. Extremities: 1+ right femoral pulse. Nonpalp right pop or pedal pulses. Right foot - no right foot open tissue loss. Mild dependant rubor of forefoot present. No gross motor/sensory deficits on exam. Psych: AAOx3 Studies: ABIs: 04/12/18 Right ?Pressure (mm Hg) ?? SOSA ??Waveform ? TBI ?? Brachial Artery ?158 ? Dorsalis Pedis (Ankle) Artery ?70 ?0.44 ??Monophasic ? Posterior Tibial (Ankle) Artery ??75 ?0.47 ??Monophasic ? Great Toe ?44 ?0.28 ?? Left ? Pressure (mm Hg) ?? Brachial Artery ?146 ? Interpretation: RIGHT: Moderately severe lower extremity arterial occlusive disease. No significant change compared to previous exam. LEFT: AKA Impression: Atherosclerotic PAD with right leg claudication S/p left AKA Recommendations: Ms. Perry has stable right leg perfusion and stable claudication. If her right leg remains stable we will repeat ABIs again in 6 months and I can see her in the office at that time again. She should continue to monitor her right leg closely and contact us if there are any signs of worsening claudication, rest pain, or any tissue loss. She may continue to use her leg for exercise to helppromote collateral flow but should avoid injury to the foot as a wound that develops there is unlikely to heal without intervention at this point. I have recommended that she continue antiplatelet and statin daily and she should continue to monitor her blood pressure to ensure adequate control. Please do not hesitate to call with questions/concerns. I spent >50% of a 15 minute visit discussing test results and reviewing the above plan of care / recommendations. documented in this encounter Plan of Treatment Not on filedocumented as of this encounter Results SOSA, legs, multiple levels (10/08/2018 8:12 AM EDT) Component Value Ref Test Analysis Performed At [facility] Range Method Time Signature VB Text Department: Vascular Surgery Lab [facility] Report Patient: [id number] (CARRIE PERRY) CPT: 75335 ICD10: I70.211;Z89.612 Referring Physician: HORACE DIAZ ?? Phone: Indications: Hx of L AKA, ??R claudication Diabetes mellitus: yes ICD10 Diagnosis Code: I70.211, Z89.612 Findings: Right ?Pressure (mm Hg) ?? SOSA ??Waveform ? TBI ?? Brachial Artery ?147 ? Dorsalis Pedis (Ankle) Arter y ?74 ?0.50 ??Monophasic ? Posterior Tibial (Ankle) Art gregory ??75 ?0.51 ??Monophasic ? Great Toe ?38 ?0.26 ?? Left ? Pressure (mm Hg) ?? Brachial Artery ?147 ? Interpretation: RIGHT: Moderate lower extremity arterial occlusive disease. Toe-brachial index substantially lower than ankle-brachial index indicates pres ence of severe arterial occlusive disease in the foot. No significant holt e compared to previous exam. LEFT: AKA Previous [...] 0.43(+.10) 0.23(+.02) ---- ??0.44(+.03) 0.47(+.04) 0.28(+.05) ---- Current ? 0.50(+.06) 0.51(+.04) 0.26(-.02) ---- Date ?LEFT DP ?LEFT PT ?LT [...] ? ---- ? 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
--- OUTSIDE RECORDS SUMMARY | 2022-01-25 00:54 | XMS_ITS | Clinical Summary ---
:1950 Demographics Home Phone Preferred Language Unknown Marital Status Unknown Pentecostal Affiliation Unknown Race Unknown Ethnic Group Unknown Author Organization [facility] Address [address] [place] [address] Care Team Providers Name Role Phone Unknown, Provider Primary Care Provider Social History Tobacco Use Types Packs/Day Years Used Date Never Assessed Sex Assigned at Date Recorded Not on file Plan of Treatment Health Maintenance Due Date Last Done Comments Fall Risk Screening 2015 Care Teams Grain Combine Driver Relationship Specialty Start Date End Date Unknown, Provider, PCP - General 06/16/14
--- OUTSIDE RECORDS SUMMARY | 2022-01-25 00:54 | XMS_ITS | Encounter Summary ---
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 amputation of left [facility] low er extremity Drive [place] VASCULAR SURGERY [address] [place] [address] [phone] Social History Tobacco Use Types Packs/Day Years Used Date Never Smoker Smokeless Tobacco: Never Used Alcohol Use Standard Drinks/Week Comments No 0 (1 standard drink = 0.6 oz pure alcoho l) Sex Assigned at Date Recorded Not on file documented as of this encounter Last Filed Vital Signs Vital Sign Reading Time Taken Comments Blood Pressure 127/65 10/08/2018 9:03 AM EDT Pulse 54 10/08/2018 9:03 AM EDT Temperature - - Respiratory Rate 18 10/08/2018 9:03 AM EDT Oxygen Saturation - - Inhaled Oxygen Concentration - - Weight 71.2 kg (157 lb) 10/08/2018 9:03 AM EDT Height 152.4 cm (5') 10/08/2018 9:03 AM EDT Body Mass Index 30.66 10/08/2018 9:03 AM EDT documented in this encounter Progress Notes [facility], MAGALY - 10/08/2018 9:30 AM EDT This patient returned to the vascular clinic today for reevaluation of her PAD. Ms. Perry reports that she continues to do well. She walking with her left leg prosthesis and walkerat home (s/p left AKA Jul 2015) Denies rest pian tissue loss, SOB, chest pain, TIA's She does not walk much. She remains on aspirin, Plavix, and a [...] REVISION performed by Elicia Caal MD at [facility] MAIN OR ??? PRO AMPUTATION LOW LEG, CIRCULAR Left 07/24/2015 @AMPUTATION, BELOW-KNEE, OPEN, GUILLOTINE performed by Elicia Caal MD at [facility] OR ??? PRO BYPASS GRAFT OTHR, FEM-TIBIAL Left 05/26/2015 @BYPASS GRAFT, FEM-ANT TIBIAL, -POST TIBIAL, -PERONEAL, -DP W\ SYNTHETIC CONDUIT performed by Mariano Doyle MD at [facility] MAIN OR ??? PRO BYPASS GRAFT VEIN PATCH/CUFF, SYNTHETIC Left 05/26/2015 PLACEMENT VEIN PATCH OR CUFF AT DISTAL ANASTOMOSIS OF BYPASS GRAFT, SYNTHETIC CONDUIT , RODRIGUEZ-COLLAR, RACHELLE-PATCH, ADD-ON CODE, LOWER EXTREMITY performed by Mariano Doyle MD at [facility] MAIN OR ? ? PRO DEBRIDEMENT SUBCUTANEOUS TISSUE 20 SQCM/< Left 07/27/2015 DEBRIDEMENT SKIN AND SUBCU, LOWER EXTREMITY performed by Elicia Caal MD at [facility] MAIN OR ??? PRO DRESSING CHANGE UNDER ANESTHESIA Left 07/29/2015 DRESSING CHANGE (FOR OTHER THAN ESCALANTE) UNDER ANES., LOWER EXTREMITY performed by Elicia Caal MD at [facility] OR ??? PRO EXCISION, INFEC GRAFT, EXTREMITY Left 07/24/2015 EXCISION OF INFECTED GRAFT FROM LOWER EXTREMITY performed by Elicia Caal MD at [facility] OR ??? PRO EXPLORATION, FEMORAL ARTERY Left 07/24/2015 @EXPLORATION, W/WO LYSIS, FEMORAL ARTERY W\O SURGICAL REPAIR performed by Elicia Caal MD at [facility] OR ??? PRO MUSCLE-SKIN FLAP, LEG Left 07/27/2015 FLAP, MYOCUTANEOUS OR FASCIOCUTANEOUS, LOWER EXTREMITY performed by Elicia Caal MD at [facility] OR ??? PRO NEGATIVE PRESSURE WOUND THERAPY, LESS THAN OR EQUAL TO 50 SQCM Left 07/24/2015 DRESSING CHANGE (VAC ASSISTED) UP TO 50SQ.CM performed by Elicia Caal MD at [facility] MAIN OR ??? PRO REBL VES DIRECT, LOW EXTREM Left 07/24/2015 REPAIR LOWER EXTREMITY BLOOD VESSEL, DIRECT, NO PATCH OR GRAFT performed by Elicia Caal MD at [facility] OR ??? PRO REOPERATION, BYPASS GRAFT Left 05/26/2015 @RE-OP FOR RE-DO LOWER EXTREMITY BYPASS GRAFT, >1 MONTH P\ ORIGINAL SURGERY, ADD-ON CODE performed by Mariano Doyle MD at [facility] OR ??? PRO THROMBOENDARTECTMY ILIOFEMORAL Left 05/26/2015 @ENDARTERECTOMY, ILIOFEMORAL W OR W/O PATCH GRAFT performed by Mariano Doyle MD at [facility] OR ??? PRO VEIN BYPASS GRAFT, FEM-TIBIAL Left 03/18/2015 Left SFA to peroneal bypass with vein ??? SKIN GRAFT Left left 2nd metacarpal Social Hx: Social History Tobacco Use ??? Smoking status: Never Smoker ??? Smokeless tobacco: Never Used Substance Use Topics ??? Alcohol use: No Alcohol/week: 0.0 oz Medications: Medications 05/13/18 1017 Medication Sig Taking? BASAGLAR KAYLEEPEN U-100 INSULIN 100 unit/mL (3 mL) pen [...] for Pain. Yes Allergies: No Known Allergies Physical Exam: Vitals: Most Recent Vitals: 10/08/18 0903 BP: 127/65 Pulse: 54 Resp: 18 PainSc: 0 - No pain General: NAD, appears well Neuro: Alert and oriented, motor sensory grossly intact Lungs: CTA Heart: RRR Abd: Soft, NT, ND, no palpable pulsatile masses Extremity - [place], warm, no ulceration, brisk capillary refill, no edema Vascular: R L Carotid 2/2 bruit (n) 2/2 bruit (n) Radial 2/2 2/2 DP -/2 PT -/2 ABIs: Right ?Pressure (mm Hg) ?? SOSA ??Waveform ? TBI ?? Brachial Artery ?147 ? Dorsalis Pedis (Ankle) Artery ?74 ?0.50 ??Monophasic ? Posterior Tibial (Ankle) Artery ??75 ?0.51 ??Monophasic ? Great Toe ?38 ?0.26 ? Left ? Pressure (mm Hg) ?? Brachial Artery ?147 ? Interpretation: RIGHT: Moderate lower extremity arterial occlusive disease. Toe-brachial index substantially lower than ankle-brachial index indicates presence of moderately severe arterial occlusive disease in the foot. No significant change compared to previous exam. ?? LEFT: AKA Assessment/Plan: 68 yo female s/p L AKA 07/2015.. SOSA's on right stable no tissue loss. Continue ASA,Plavix, statin. RTC one year with ABIs; or before if problems documented in this encounter Plan of Treatment Not on filedocumented as of this encounter Results SOSA, legs, multiple levels (12/10/2019 9:52 AM EDT) Component Value Ref Test Analysis Performed At [facility] Range Method Time Signature VB Text Department: Vascular Surgery Lab VASCUBASE Report Patient: [id number] (CARRIE PERRY) CPT: 17588 ICD10: I70.211;Z89.612 Referring Physician: EVENS VIRK APRN ?? Phone: Indications: Left AKA, right LE claudication, ? peripheral p erfusion Diabetes mellitus: Yes ICD10 Diagnosis Code: Z89.612, I70.211 Findings: Right ?Pressure (mm Hg) ?? SOSA ??Waveform ? TBI ?? Brachial Artery ?128 ? Dorsalis Pedis (Ankle) Arter y ?53 ?0.41 ??Monophasic ? Posterior Tibial (Ankle) Art gregory ??47 ?0.37 ??Monophasic ? Great Toe ?36 ?0.28 ?? Left ? Pressure (mm Hg) ?? Brachial Artery ?127 ? Interpretation: RIGHT: Moderately severe lower extremity arterial occlusive disease. The posterior tibial artery is nearly occlud ed by duplex at the ankle; CORONER'S JUROR SOSA may be a collateral vessel. No significant change compared to pr evious exam. Previous ABIs with change from previous [...] 0.47(+.04) 0.28(+.05) ---- ??0.50(+.06) 0.51(+.04) 0.26(-.02) ---- Current ? 0.41(-.09) 0.37(-.14) 0.28(+.02) ---- Date ?LEFT DP ?LEFT PT ?LT [...] Electronically Signed by: EDY ESTES MD on 2019-12-11 03: 44:49 PM VB Text End of Report VASCUBASE Report Specimen (Source) Anatomical Collection Method Collection Time Re ceived Time Location / / Volume Laterality 12/10/2019 9:52 AM EDT [facility] APRN VASCULAR ORDERABLES Performing Organization Address City/State/ZIP Code Phon e Number VASCUBASE documented in this encounter Visit Diagnoses Diagnosis 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 documented in this encounter Care Teams Occupational Health Nursing Director Relationship Specialty Start Date End Date Gordy Gregg MD PCP - General Family Medicine 05/19/[address] [place] [address] documented as of this encounter
--- OUTSIDE RECORDS SUMMARY | 2022-01-25 00:54 | XMS_ITS | Encounter Summary ---
:1950 Author Organization [facility] [place] [address] Care Team Providers Name Role Phone Gordy Gregg MD Primary Care Provider [phone] Reason for Visit Reason Comments Follow-up Encounter Details Date Type Department Care Team Description 06/12/2016 Office Visit [place] [facility] [place] Luong, Ischemic cardiomyopathy; [facility] GAIL Bruit of [place] [address] CARDIOLOGY DEPT. [phone] [place], [place] [address] Social History Tobacco Use Types Packs/Day Years Used Date Never Smoker Smokeless Tobacco: Never Used Alcohol Use Standard Drinks/Week Comments No 0 (1 standard drink = 0.6 oz pure alcoho l) Sex Assigned at Date Recorded Not on file documented as of this encounter Last Filed Vital Signs Vital Sign Reading Time Taken Comments Blood Pressure 145/95 06/12/2016 3:28 PM EST Pulse 56 06/12/2016 3:28 PM EST Temperature - - Respiratory Rate - - Oxygen Saturation 98% 06/12/2016 3:28 PM room air EST Inhaled Oxygen Concentration - - Weight 52 kg (114 lb 9.6 oz) 06/12/2016 3:28 PM with pr ostetic EST Height 152.4 cm (5') 06/12/2016 3:28 PM EST Body Mass Index 22.38 06/12/2016 3:28 PM EST documented in this encounter Progress Notes Michael Luong PA - 06/12/2016 4:00 PM EST HPI: Carrie is here for routine follow-up. Despite all of her problems she reports she is actually feeling quite well. She reports no significant shortness of breath or chest pain. Her last cardiac catheterization was in August 2015. The left circumflex was stented. Her ejection fraction however was estimated to be 30-35%. When I last saw her as an outpatient in March 2015 she had had a dobutaminestress test showing some ischemia of the apex and apical lateral wall. Her ejection fraction at thattime was 65%. She was treated medically until the recent non-STEMI. We discussed the need to reassess left ventricular function and to possibly consider referral to electrophysiology an ICD should her ejection fraction remains low. She would like to have an echocardiogram performed at [facility]. I have ordered and printed a requisition for her. Of note on physical exam revealed a left carotid bruit. She would also like to have the duplex/ultrasound performed at [facility] if they do that there. I've asked him to have all of these study results forwarded to us and that she will call to notify me as to when they occur so that I can look for the results and get back to her with further plans. Inthe meantime she will continue all other current medications. Patient Active Problem List Diagnosis ??? Status post above knee amputation of left lower extremity 07/29/2015: Left AKA 07/27/2015: Left groin sartorius flap 07/24/2015: LLE guillotine amp, removal PTFE graft, left groin wound vac placement ??? Acute systolic congestive heart failure Patient now has an LVEF of 30% No lasix at the time of discharge Patient may need lasix again in the future ??? NSTEMI (non-ST elevated myocardial infarction) ??? HLD (hyperlipidemia) ??? DMII (diabetes mellitus, type 2) ??? Hypercholesterolemia ??? Hypertension ??? PAD (peripheral artery disease) 07/29/15: Left AKA 07/27/15: Left groin sartorius flap 07/24/15: Left guillotine amputation, removal infected PTFE graft, left groin wound VAC placement 05/26/15: Left femoral endarterectomy and LLE fem-PT arterial bypass w/ PTFE graft (thrombosed on 06-01-15) 03/18/15: Left SFA to peroneal bypass with vein (thrombosed 05-19-15) Current Outpatient Prescriptions Medication Sig Dispense Refill ??? simvastatin (ZOCOR) 20 mg Tablet Take 20 mg by mouth nightly. ??? sertraline (ZOLOFT) 25 mg Tablet Take 75 mg by mouth daily. Takes with 50mg ??? Magnesium Oxide 250 mg Tablet Take 1-2 tablets by mouth daily. ??? meTOPROLOL succinate (TOPROL-XL) 25 mg Tablet Sustained Release 24 hr Take 1 tablet by mouth daily. 30 tablet 12 ??? traZODone (DESYREL) 50 mg Tablet Take 50 mg by mouth nightly. ??? insulin glargine (LANTUS) Solution Inject subcutaneously nightly. ??? clopidogrel (PLAVIX) 75 mg Tablet Take 1 tablet by mouth daily. 30 tablet 11 ??? lisinopril (PRINIVIL;ZESTRIL) 5 mg Tablet Take 1 tablet by mouth daily. 30 tablet 12 ??? pantoprazole (PROTONIX) 40 mg Tablet, Delayed Release (E.C.) Take 1 tablet by mouth daily. 90 tablet 3 ??? gabapentin (NEURONTIN) 300 mg Capsule Take 2 capsules by mouth 2 times daily. Indications: Neuropathic Pain 90 capsule 12 ??? insulin aspart (NOVOLOG) Solution Inject 1-4 Units subcutaneously every 4 hours. 10 mL 12 ??? oxyCODONE (ROXICODONE) 5 mg Tablet Take 1 tablet by mouth every 4 hours as needed for Pain (mildto moderate pain (1-6)). 30 tablet 0 ??? sertraline (ZOLOFT) 50 mg Tablet Take 75 mg by mouth daily. Takes with 25mg ??? multivitamin (THERAGRAN) Tablet Take 1 tablet by mouth daily. ??? aspirin 81 mg Tablet, Delayed Release (E.C.) Take 1 tablet by mouth daily. 30 tablet 3 ??? acetaminophen (TYLENOL) 325 mg Tablet Take 325 mg by mouth every 4 hours as needed for Pain. ??? nitroGLYcerin (NITROSTAT) 0.4 mg Tablet, Sublingual Place 1 tablet under the tongue every 5 minutes as needed for Chest pain. (Patient not taking: Reported on 06/12/2016) 25 tablet 3 Allergies: Review of patient's allergies indicates no known allergies. Interval ROS: Patient denies cough, fever, PND, orthopnea, activity intolerance, leg swelling, change in bowel habit, presyncope or syncope. Physical Exam: Blood pressure (!) 145/95, pulse 56, height 152.4 cm (5'), weight 52 kg (114 lb 9.6 oz), SpO2 98 %. General: WD, WN HEENT: No JVD, left carotid bruit present Lungs: Clear to A+P Cor: RR, normal S1, S2. PMI not displaced. No murmur or gallop Assessment: Vasculopath with with severe coronary disease requiring several PCI's. Her left leg required an above the knee amputation due to failed bypasses. Her ejection fraction has dropped significantly Left carotid bruit noted Plan: Echocardiogram Carotid ultrasound Both will be performed at [facility] with results forwarded to me. I will contact her once these studies have been received with a device as to how to proceed. documented in this encounter Plan of Treatment Not on filedocumented as of this encounter Visit Diagnoses Diagnosis Ischemic cardiomyopathy Other specified forms of chronic ischemi c heart disease Bruit of left carotid artery Other symptoms involving cardiovascular system documented in this encounter Care Teams Vault Worker Relationship Specialty Start Date End Date Gordy Gregg MD PCP - General Family Medicine 05/19/[address] [place] [address] documented as of this encounter
--- OUTSIDE RECORDS SUMMARY | 2022-01-25 00:54 | XMS_ITS | Encounter Summary ---
:1950 [place] [address] Care Team Providers Name Role Phone Gordy Gregg MD Primary Care Provider [phone] Encounter Details Date Type Department Care Team Description 05/07/2017 [facility] [place] [facility] artery of right lower extremity with intermittent claudication; Haley Shoemaker W, RVT Status post a shad knee amputation of [place] [id number] Social History Tobacco Use Types Packs/Day Years Used Date Never Smoker Smokeless Tobacco: Never Used Alcohol Use Standard Drinks/Week Comments No 0 (1 standard drink = 0.6 oz pure alcoho l) Sex Assigned at Date Recorded Not on file documented as of this encounter Medications at Time of Discharge Medication Sig Dispensed Refills Start Date End Date clopidogrel (PLAVIX) Take 1 tablet by mouth [...] Associated Diagnosis Comme nts SOSA, LEGS, Routine 05/07/2017 8:49 AM Atherosclerosis of Res ults for this MULTIPLE LEVELS EDT [place] artery of right pr jorjedudion are in lower extremity with the res ults intermittent section. claudication Status post above knee amputation of left lower extremity documented in this encounter Results SOSA, legs, multiple levels (05/07/2017 8:49 AM EDT) Component Value Ref Test Analysis Performed At [facility] Range Method Time Signature VB Text Department: Vascular Surgery Lab VASCUBASE Report Patient: [id number] (CARRIE PERRY) CPT: 12305 ICD10: Z89.612;I70.211 Referring Physician: JOSE CRUZ FOWLER ?? Indications: ??LEFT BKA, RIGHT PVD, ? change Diabetes mellitus: yes ICD10 Diagnosis Code: Z89.612, I70.211 Findings: Right ?Pressure (mm Hg) ?? SOSA ??Waveform ? TBI ?? Brachial Artery ?169 ? Dorsalis Pedis (Ankle) Arter y ?67 ?0.39 ??Monophasic ? Posterior Tibial (Ankle) Art gregory ??58 ?0.33 ??Monophasic ? Great Toe ?36 ?0.21 ?? Left ? Pressure (mm Hg) ?? Brachial Artery ?174 ? Interpretation: RIGHT: Moderately severe lower extremity arterial occlusive disease. No significant change compared to previous exam. LEFT: ??BKA. Previous ABIs with change from previous value: [...] 0.13( +.01) ---- ? ---- ? ---- ??0.26(-.07) 0.27(-.07) 0.11( -.02) ---- ? ---- ? ---- ??0.39(+.13) 0.41(+.14) 0.09( -.02) ---- ? ---- ? ---- Current ? 0.39( .00) 0.3 3(-.08) 0.21(+.12) ---- ? ---- ? ---- Electronically Signed by: HORACE DIAZ on 2017-05-07 10:43:12 AM VB Text End of Report VASCUBASE Report Specimen (Source) Anatomical Collection Method Collection Time Re ceived Time Location / / Volume Laterality 05/07/2017 8:49 AM EDT Jose Cruz Fowler MD VASCULAR ORDERABLES Performing Organization Address City/State/ZIP Code Phon e Number VASCUBASE documented in this encounter Visit Diagnoses Diagnosis Atherosclerosis of [place] artery of righ t lower extremity with intermittent claudication Atherosclerosis of [place] arteries of th e extremities with intermittent claudication 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 documented in this encounter Care Teams Immigration Consultant Relationship Specialty Start Date End Date Gordy Gregg MD PCP - General Family Medicine 05/19/15 [address] [place] [address] documented as of this encounter
--- OUTSIDE RECORDS SUMMARY | 2022-01-25 00:54 | XMS_ITS | Encounter Summary ---
:1950 [place] [address] Care Team Providers Name Role Phone Gordy Gregg MD Primary Care Provider [phone] Encounter Details Date Type Department Care Team Description 11/[facility]2021 [facility] [place] [address] Social History Tobacco Use Types Packs/Day Years [...] Date/Time Associated Diagnosis Comme nts SOSA, LEGS, MULTIPLE Routine 11/24/2021 9:53 AM Unilateral AKA Results for this LEVELS EDT procedure are i n the results section. documented in this encounter Results SOSA, legs, multiple levels (11/24/2021 9:53 AM EDT) Component Value Ref Test Analysis Performed At [facility] Range Method Time Signature VB Text Department: Vascular Surgery Lab VASCUBASE Report Patient: [id number] (CARRIE PERRY) CPT: 00003 Referring Physician: EVENS VIRK, SHEET HANGER ?? Phone: Indications: ??F/U PAD, s/p L [...] / Volume Laterality 11/24/2021 9:53 AM EDT Ev[facility]k APRN VASCULAR ORDERABLES Performing Organization Address City/State/ZIP Code Phon e Number VASCUBASE documented in this encounter Visit Diagnoses Diagnosis Unilateral AKA Traumatic amputation of leg(s) (complete ) (partial), unilateral, at or above knee, without mention of complication documented in this encounter Care Teams Communications Representative Relationship Specialty Start Date End Date Gordy Gregg MD PCP - General Family Medicine 05/19/[address] [place] [address] documented as of this encounter
--- OUTSIDE RECORDS SUMMARY | 2022-01-25 00:54 | XMS_ITS | Clinical Summary ---
:1950 Author Organization [facility] Address [address] [place] [address] Care Team Providers Name Role Phone Gordy Gregg MD Primary Care Provider Allergies No known active allergies Medications Medication Sig Dispensed Refills Start Date End Date Status acetaminophen Take 325 mg by mouth 0 Active (TYLENOL) 325 mg every 4 hours as Tablet needed for Pain. aspirin 81 mg Take 1 tablet by 30 tablet 3 03/16/2015 Active Tablet, Delayed mouth daily. Release (E.C.) sertraline (ZOLOFT) Take 75 mg by mouth 0 Active 50 mg Tablet daily. Takes with 25mg gabapentin Take 2 capsules by 90 capsule 12 08/03/2015 Active (NEURONTIN) 300 mg mouth 2 times daily. CapsuleIndications: Indications: neuropathic pain Neuropathic Pain insulin aspart Inject 1-4 Units 10 mL 12 08/03/2015 Active (NOVOLOG) Solution subcutaneously every 4 hours. oxyCODONE Take 1 tablet by 30 tablet 0 08/03/2015 Ac tive (ROXICODONE) 5 mg mouth every 4 hours Tablet as needed for Pain (mild to moderate pain (1-6)). Additional Information Patient not taking. Reported on 11/24/2021 lisinopril (PRINIVIL;ZESTRIL) Take 1 tablet by mouth 30 tablet 12 08/13/2015 Active 5 mg Tablet daily. nitroGLYcerin (NITROSTAT) 0.4 Place 1 tablet under 25 tablet 3 08/13/2015 Active mg Tablet, Sublingual the tongue every 5 minutes as needed for Chest pain. pantoprazole (PROTONIX) 40 mg Take 1 tablet by mouth 90 tablet 3 08/13/2015 Active Tablet, Delayed Release daily. (E.C.) traZODone (DESYREL) 50 mg Take 50 mg by mouth 0 Active Tablet nightly. meTOPROLOL succinate Take 1 tablet by mouth 30 tablet 12 2015 Active (TOPROL-XL) 25 mg Tablet daily. Sustained Release 24 hrIndications: ASCVD (arteriosclerotic cardiovascular disease) Magnesium Oxide 250 mg Tablet Take 1-2 tablets by 0 Active mouth daily. sertraline (ZOLOFT) 25 mg Take 75 mg by mouth 0 Active Tablet daily. Takes with 50mg clopidogrel (PLAVIX) 75 mg Take 1 tablet by mouth 30 tablet 11 08/14/2016 Active Tablet daily. BASAGLAR KWIKPEN U-100 inject 20 units 0 09/19/2017 Active INSULIN 100 unit/mL (3 mL) subcutaneously at pen bedtime DISCONTINUE LANTUS isosorbide mononitrate take 1 tablet by mouth 0 05/0 03/2018 Active (IMDUR) 30 mg Tablet once daily Sustained Release 24 hr atorvastatin (Lipitor) 40 mg TAKE 1 TABLET BY MOUTH 0 09/21/2019 Active Tablet AT BEDTIME amLODIPine (Norvasc) 5 mg Take 5 mg by mouth 0 11/16 Active Tablet daily. fenofibrate (TRICOR) 54 mg TAKE ONE TABLET BY 0 09/06 Active Tablet MOUTH DAILY Jardiance 10 mg Tablet Take 10 mg by mouth 0 020 Active daily. isosorbide dinitrate Take 30 mg by mouth 4 0 Active (Isordil) 30 mg Tablet times daily. 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 08/17/2015 Overview: 07/29/2015: Left AKA 07/27/2015: Left groin sartorius flap 07/24/2015: LLE peteine amp, removal P TFE graft, left groin wound vac placement Acute systolic congestive heart failure 08/16/2015 Overview: Patient now has an LVEF of 30% No lasix at the time of discharge Patient may need lasix again in the futu re NSTEMI (non-ST elevated myocardial infarction) 016 HLD (hyperlipidemia) 03/24/2015 DMII (diabetes mellitus, type 2) 03/16/2015 Hypertension 03/16/2015 Atherosclerosis of [place] artery of right lower extrem ity with 03/16/2015 intermittent claudication Overview: 07/29/15: Left AKA 07/27/15: Left groin sartorius flap 07/24/15: Left guillotine amputation, rem oval infected PTFE graft, left groin wound VAC placement 05/26/15: Left femoral endarterectomy an d LLE fem-PT arterial bypass w/ PTFE graft (thrombosed on 06-01-15) 03/18/15: Left SFA to peroneal bypass wit h vein (thrombosed 05-19-15) Resolved Problems Problem Noted Date Resolved Date Critical lower limb ischemia 07/23/2015 09/21/2015 Overview: 07/29/2015: Left AKA 07/27/2015: Left groin sartorius flap 07/24/2015: LLE guillotine amp, removal P TFE graft, left groin wound vac placement Claudication 03/16/2015 09/20/2015 Non-healing ulcer of foot 03/16/2015 08/17/2015 Overview: Previous wound to left foot between 4th & 5th toe, currently resolved, 03/2015 Encounters Date Type Specialty Care Team Description 11/24/2021 Office Visit Vascular Surgery Evens Virk B, ROLL EDGE MACHINE OPERATOR Unilateral AKA, left 11/24/2021 Tech Visit Vascular Surgery Maureen Rubi R, [place] Uni lateral AKA from Last 3 Months Family History Medical History Relation Comments Coronary Artery Disease Father Type 2 Diabetes Father Coronary Artery Disease Mother Type 2 Diabetes Mother Type 2 Diabetes Sister Relation Status Comments Father Mother Sister Social History Tobacco Use Types Packs/Day Years Used Date Never Smoker Smokeless Tobacco: Never Used Alcohol Use Standard Drinks/Week Comments No 0 (1 standard drink = 0.6 oz pure alcoho l) Sex Assigned at Date Recorded Not on file Last Filed Vital Signs Vital Sign Reading Time Taken Comments Blood Pressure 109/51 11/24/2021 10:26 AM EDT Pulse 55 11/24/2021 10:26 AM EDT Temperature 36.8 ??C (98.2 ??F) 08/13/2015 8:30 AM EST Respiratory Rate 18 10/08/2018 9:03 AM EDT Oxygen Saturation 98% 06/12/2016 3:28 PM EST room ai r Inhaled Oxygen Concentration - - Weight 74.4 kg (164 lb) 11/24/2021 10:26 AM EDT reporte d Height 152.4 cm (5') 11/24/2021 10:26 AM EDT reported Body Mass Index 32.03 11/24/2021 10:26 AM EDT Plan of Treatment Health Maintenance Due Date Last Done Comments Covid-19 Vaccine (#1) 1955 Pneumoccocal Vaccine: 65+ (1 - 1956 PCV) DM Hemoglobin A1c 1960 DM Opthalmology Exam 1960 DM Urine Microalbumin yearly 1960 Hepatitis C Screening 1968 Tdap adult 1969 Tetanus vaccine 1969 Breast Cancer Share Decision 1990 Needed Colonoscopy 1995 Breast Cancer screening 2000 Zoster vaccine (1 of 2) 2000 Bone Density Scan 2015 DM Creatinine yearly 08/12/2016 08/12/2015, 08/11/2015, 08/10/2015, Additional history exists Influenza (Flu) vaccine (1 of 1 - 03/08/2022 Influenza standard series) Medical Devices Implanted Type Area Citrus Fruit Packer Device Shelf Model / Identifier Expiration Serial / Date Lot Graft,Pv,Tw,Strch,[id number] ([id number]) - [id number] IMPLANTS Left: Leg DO NOT USE WL 09/28/2018 [id number] / Implanted: Qty: 1 on 05/26/2015 by Mariano Doyle MD at [facility] & [id number] / [employer] - [id number] Graft,Ptch,Vasc,Grd,0.8x8cm ([id number]) - [id number] IMPLANTS Left: DO NOT USE 03/25/2020 [id number] / Implanted: Qty: 1 on 07/24/2015 by Elicia Caal MD at [facility] Ronny Bunch 0 / Healthcare - [id number] - [id number] Procedures Procedure Name Priority Date/Time Associated Diagnosis Comme nts SOSA, LEGS, MULTIPLE Routine 11/24/2021 9:53 AM Unilateral AKA Results for this LEVELS EDT procedure are i n the results section. from Last 3 Months Results SOSA, legs, multiple levels (11/24/2021 9:53 AM EDT) Component Value Ref Test Analysis Performed At [facility] Range Method Time Signature VB Text Department: Vascular Surgery Lab [facility] Report Patient: [id number] (CARRIE PERRY) CPT: 59476 Referring Physician: EVENS VIRK APRN ?? Phone: Indications: ??F/U PAD, [...] Laterality 11/24/2021 9:53 AM EDT Evens Virk ROLL EDGE MACHINE OPERATOR VASCULAR ORDERABLES Performing Organization Address City/State/ZIP Code Phon e Number VAS[facility] from Last 3 Months Insurance Payer Benefit Plan / Subscriber ID Effective Phone Address T ype Group Dates MEDICARE MEDICARE PART [id number] 2015-Prese [phone] [facility] [place] [address] [employer] BCBS [id number] 2018-Prese [address] BLUE [facility] [place] [address] [place] [address] Advance Directives Documents on File Type Date Recorded Patient Proprietary Trader Explanati on Personal Proprietary Trader 05/19/2018 1:31 PM padmini chna verbal only Advance Directives and 08/03/2015 3:24 PM 08/03/15 Living Will Latest Code Status on File Code Status Date Activated Date Inactivated Comments DNR 08/12/2015 8:53 PM 08/13/2015 1:00 PM Does patient have capacity to make decision: Yes Full Code 08/11/2015 10:42 AM 08/12/2015 8:53 PM Does patient have capacity to make decision: Yes DNR 08/10/2015 9:13 PM 08/11/2015 10:42 AM Does patient have capacity to make decision: Yes DNR 07/27/2015 2:41 PM 08/03/2015 4:35 PM Does patient have capacity to make decision: Yes Suspended DNR 07/27/2015 12:56 PM 07/27/2015 2:41 PM Does patient have capacity to make decision: Yes Order Status: Suspended DNR until new order placed Care Teams Director Of Managed Care Relationship Specialty Start Date End Date Gordy Gregg MD PCP - General Family Medicine 05/19/[address] [place] [address]
--- OUTSIDE RECORDS SUMMARY | 2022-01-25 00:54 | XMS_ITS | Encounter Summary ---
:1950 [place] [address] Care Team Providers Name Role Phone Gordy Gregg MD Primary Care Provider [phone] Reason for Visit Reason Onset Date Comments Medication Refill 04/18/2016 Encounter Details Date Type Department Care Team Description 04/18/2016 Refill Cardiology at [facility] [place] Michael Luong PA Medication Refill [facility] [place] [address] CARDIOLOGY DEPT. [phone] [place], [place] [address] (Wo rk) Social History Tobacco Use Types Packs/Day Years Used Date Never Smoker Smokeless Tobacco: Never Used Alcohol Use Standard Drinks/Week Comments No 0 (1 standard drink = 0.6 oz pure alcoho l) Sex Assigned at Date Recorded Not on file documented as of this encounter Plan of Treatment Not on filedocumented as of this encounter Visit Diagnoses Diagnosis ASCVD (arteriosclerotic cardiovascular d isease) Unspecified cardiovascular disease documented in this encounter Care Teams School Program Director Relationship Specialty Start Date End Date Gordy Gregg MD PCP - General Family Medicine 05/19/[address] [place] [address] documented as of this encounter
--- OUTSIDE RECORDS SUMMARY | 2022-01-25 00:54 | XMS_ITS | Encounter Summary ---
:1950 [place] [address] Care Team Providers Name Role Phone Gordy Gregg MD Primary Care Provider [phone] Encounter Details Date Type Department Care Team Description 11/21/2017 Hospital Encounter Vascular Lab at [facility], Athero sclerosis of [place] artery of right lower extremity with intermittent claudication; [place], [place] Status post a shad knee amputation [place] [id number] Social History Tobacco Use Types Packs/Day Years [...] Associated Diagnosis Comme nts SOSA, LEGS, Routine 11/21/2017 10:20 Atherosclerosis of Resul ts for this MULTIPLE LEVELS AM EDT [place] artery of right pr matt are in lower extremity with the res ults intermittent section. claudication Status post above knee amputation of left lower extremity documented in this encounter Results SOSA, legs, multiple levels (11/21/2017 10:20 AM EDT) Component Value Ref Test Analysis Performed At [facility] Range Method Time Signature VB Text Department: Vascular Surgery Lab [facility] Report Patient: [id number] (CARRIE PERRY) CPT: 52176 ICD10: Z89.612;I70.211 Referring Physician: ANTOLIN MULLEN ?? [...] this encounter Visit Diagnoses Diagnosis Atherosclerosis of [place] artery of righ t lower extremity with intermittent claudication Atherosclerosis of [place] arteries of th e extremities with intermittent claudication 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 documented in this encounter Care Teams Distribution Clerk Relationship Specialty Start Date End Date Gordy Gregg MD PCP - General Family Medicine 05/19/[address] [place] [address] documented as of this encounter
--- OUTSIDE RECORDS SUMMARY | 2022-01-25 00:54 | XMS_ITS | Encounter Summary ---
:1950 Demographics Home Phone Preferred Language Unknown Marital Status Unknown Yarsanism Affiliation Unknown Race Unknown Ethnic Group Unknown Author Organization [facility] Address [address] [place] [address] Care Team Providers Name Role Phone Unknown, Provider Primary Care Provider Encounter Details Date Type Department Care Team Description 06/15/2014 Results Only [facility]- Shirley Joy NP [phone] [place] [address] [place] [address] (Wo rk) Social History Tobacco Use Types Packs/Day Years Used Date Never Assessed Sex Assigned at Date Recorded Not on file documented as of this encounter Plan of Treatment Not on filedocumented as of this encounter Procedures Procedure Name Priority Date/Time Associated Diagnosis Comme nts PAP TEST- RESULT Routine 06/15/2014 0:00 EST Resu lts for this ONLY procedure are i n the results section. documented in this encounter Results PAP TEST- RESULT ONLY (06/15/2014 0:00 EST) Pathology Report: CYTOPATHOLOGY REPORT [facility] Reports generated via electronic interface contain kelly ginal data; SERVICES however they are lacking the format of the original re port. Caution should be taken when reading/interpreting unfo rmatted reports. Name: ? CARRIE PERRY ? Accession #: ? [id number] ? : ? 1950 (Age: 63) ??F ?Collect Da te: ? 06/15/2014 ? Location: ? [facility] ? Receive Date: ? 014 ? Provider: SIHRLEY ZURITA POWER DISTRIBUTION ENGINEER Copy to: ? Final Report SPECIMEN ADEQUACY ? Satisfactory for Evaluation - assessment of transformation zone component not appl icable ( e.g. atrophy, vaginal sample, hysterectomy) GENERAL CATEGORIZATION ? Negative for Intraepithelial Lesion or Malignan cy ?? Menstrual/ Status: ??Post Menopausal Specimen/Source: ??Pap Test, Cervix/Endocervix, ThinPr ep Imaging System with manual evaluation Document reviewed and electronically signed by: ? Keanu Mooney, BRANDIN(ASCP) ? Report ??Date: 06/23/2014 11:52 HPV with Pap Test ? Date Ordered: ? 06/23/2014 ? Status: ?? Signed Out ?Date Complete: ? 06/25/2014 ? By: ??S ystem Interface ? Date Reported: ? 06/25/2014 ? Interpretation RESULT: Negative for HPV. No E6 or E7 mRNA is detected from HPV types 16,18,31,3 3,35, 39,45,51,52,56,58,59,66, and 68 by ruby on rails software developer media ayleen amplification. Comments Document reviewed and electronically signed by: ? System Interface ? Report date: 06/25/2014 By the signature above, the attending physician certif ies that he/she has personally conducted a gross and/or microscopic examin ation of the described specimens and rendered or confirmed the above diagnosi s. End of Report Specimen Performing Organization Address City/State/ZIP Code Phon e Number [facility] [address] [place] [address] SERVICES documented in this encounter Visit Diagnoses Not on filedocumented in this encounter Care Teams First Officer Relationship Specialty Start Date End Date Unknown, Provider, PCP - General 06/16/14 documented as of this encounter
--- OUTSIDE RECORDS SUMMARY | 2022-01-25 00:54 | XMS_ITS | Encounter Summary ---
:1950 [place] [address] Care Team Providers Name Role Phone Gordy Gregg MD Primary Care Provider [phone] Reason for Visit Reason Comments Follow-up Recheck my blood flow Encounter Details Date Type Department Care Team Description 11/09/2016 Office Visit Vascular Surgery at Radha Waller PA Atherosclerosis of [place] artery of righ t lower extremity with intermittent claudication; [address] 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 [facility] [place] [phone] Social History Tobacco Use Types Packs/Day Years Used Date Never Smoker Smokeless Tobacco: Never Used Alcohol Use Standard Drinks/Week Comments No 0 (1 standard drink = 0.6 oz pure alcoho l) Sex Assigned at Date Recorded Not on file documented as of this encounter Last Filed Vital Signs Vital Sign Reading Time Taken Comments Blood Pressure 155/53 11/09/2016 10:57 AM EDT Pulse 54 11/09/2016 10:57 AM EDT Temperature - - Respiratory Rate - - Oxygen Saturation - - Inhaled Oxygen Concentration - - Weight 57.6 kg (127 lb) 11/09/2016 10:57 AM EDT Height 152.4 cm (5') 11/09/2016 10:57 AM EDT Body Mass Index 24.8 11/09/2016 10:57 AM EDT documented in this encounter Patient Instructions Patient InstructionsRadha Waller PA - 11/09/2016 11:00 AM EDT She will continue to work with her prosthesis company to monitor any areas of pressure causing erosions on her left leg and if any of these are not healing she must contact me. Otherwise, her right foot is stable so I have asked her to continue to [...] intervention at this point. If her right medial ankle dry eschar worsens then she will call me. If her right leg remains stable we will repeat ABIs again in 6 months and I can see her in the office at that time again. Please do not hesitate to call with questions/concerns. documented in this encounter Progress Notes Radha Waller PA - 11/09/2016 11:00 AM EDT This patient returned to the vascular clinic today for reevaluation of her PAD. Ms. Perry reports that she is currently doing well and is pleased with her current condition. She isambulating with the use of a left leg prosthesis (s/p left AKA Jul 2015). While she continues to develop some rubbing pressure to the left groin incision site from her prosthesis and periodically rubs this open this has become less frequent and is currently closed. She typically applies antibiotic ointment and gauze to this and then by limiting use of her prosthesis and pressure the area heals. She is walking on her right leg and notices her right calf tires quickly, about 50-100 feet, but shecontinues to deny rest pain or any tissue loss on the right foot. She has some mild numbness of her toes at times but has been cautious to avoid injury to her right foot. However, she did accidentally bump it into the screw on her wheelchair wheel about a week ago and developed a small abrasion on themedial right malleolus which has scabbed. This appears to be improving based on her assessment and has not been draining or enlarging. PMHx: Past Medical History: Diagnosis Date ??? [...] REVISION performed by Horace Diaz MD at [facility] OR ??? PRO AMPUTATION LOW LEG, CIRCULAR Left 07/24/2015 @AMPUTATION, BELOW-KNEE, OPEN, GUILLOTINE performed by Horace Diaz MD at [facility] OR ??? PRO BYPASS GRAFT OTHR, FEM-TIBIAL Left 05/26/2015 @BYPASS GRAFT, FEM-ANT TIBIAL, -POST TIBIAL, -PERONEAL, -DP W\ SYNTHETIC CONDUIT performed by Mariano Doyle MD at [facility] OR ??? PRO BYPASS GRAFT VEIN PATCH/CUFF, SYNTHETIC Left 05/26/2015 PLACEMENT VEIN PATCH OR CUFF AT DISTAL ANASTOMOSIS OF BYPASS GRAFT, SYNTHETIC CONDUIT , RODRIGUEZ-COLLAR, RACHELLE-PATCH, ADD-ON CODE, LOWER EXTREMITY performed by Mariano Doyle MD at [facility] OR ? ? PRO DEBRIDEMENT SUBCUTANEOUS TISSUE 20 SQCM/< Left 07/27/2015 DEBRIDEMENT SKIN AND SUBCU, LOWER EXTREMITY performed by Horace Diaz MD at [facility] OR ??? PRO DRESSING CHANGE UNDER ANESTHESIA Left 07/29/2015 DRESSING CHANGE (FOR OTHER THAN ESCALANTE) UNDER ANES., LOWER EXTREMITY performed by Horace Diaz MD at [facility] OR ??? PRO EXCISION, INFEC GRAFT, EXTREMITY Left 07/24/2015 EXCISION OF INFECTED GRAFT FROM LOWER EXTREMITY performed by Horace Diaz MD at [facility] OR ??? PRO EXPLORATION, FEMORAL ARTERY Left 07/24/2015 @EXPLORATION, W/WO LYSIS, FEMORAL ARTERY W\O SURGICAL REPAIR performed by Horace Diaz MD at [facility] OR ??? PRO MUSCLE-SKIN FLAP, LEG Left 07/27/2015 FLAP, MYOCUTANEOUS OR FASCIOCUTANEOUS, LOWER EXTREMITY performed by Horace Diaz MD at [facility] MAIN OR ??? PRO NEGATIVE PRESSURE WOUND THERAPY, LESS THAN OR EQUAL TO 50 SQCM Left 07/24/2015 DRESSING CHANGE (VAC ASSISTED) UP TO 50SQ.CM performed by Horace Diaz MD at [facility] MAIN OR ??? PRO REBL VES DIRECT, LOW EXTREM Left 07/24/2015 REPAIR LOWER EXTREMITY BLOOD VESSEL, DIRECT, NO PATCH OR GRAFT performed by Horace Diaz MD at [facility] MAIN OR ??? PRO REOPERATION, BYPASS GRAFT Left 05/26/2015 @RE-OP FOR RE-DO LOWER EXTREMITY BYPASS GRAFT, >1 MONTH P\ ORIGINAL SURGERY, ADD-ON CODE performed by Mariano Doyle MD at [facility] MAIN OR ??? PRO THROMBOENDARTECTMY ILIOFEMORAL Left 05/26/2015 @ENDARTERECTOMY, ILIOFEMORAL W OR W/O PATCH GRAFT performed by Mariano Doyle MD at [facility] MAIN OR ??? PRO VEIN BYPASS GRAFT, FEM-TIBIAL Left 03/18/2015 Left SFA to peroneal bypass with vein ??? SKIN GRAFT Left left 2nd metacarpal Social Hx: Social History Substance Use Topics ??? Smoking status: Never Smoker ??? Smokeless tobacco: Never Used ??? Alcohol use No Medications: Medications 11/09/16 1102 Medication Sig Taking? clopidogrel (PLAVIX) 75 mg [...] by mouth daily. Takes with 25mg Yes multivitamin (THERAGRAN) Tablet Take 1 tablet [...] other ROS negative Physical Exam: Vitals: Vitals: 11/09/16 1057 BP: 155/53 Pulse: 54 Gen: No acute distress. HEENT: Normocephalic, atraumatic. No scleral icterus. (+) glasses Neck: Supple, no JVD. Heart: Regular rate and rhythm. Lungs: Regular respiratory rate with no increased work of breathing. Extremities: 2+ femoral pulses bilaterally, nonpalp right pop or pedal pulses. Right foot - no tissue loss. Small dry eschar on right medial malleolus without fluctuance, erythema, or drainage. Mild dependant rubor of forefoot present. No gross motor/sensory deficits on exam. Psych: AAOx3 Studies: ABIs: 11/09/16 Right ?Pressure (mm Hg) ?? SOSA ??Waveform ? TBI ?? Brachial Artery ?157 ? Dorsalis Pedis (Ankle) Artery ?62 ?0.39 ??Monophasic ? Posterior Tibial (Ankle) Artery ??66 ?0.41 ??Monophasic ? Great Toe ?15 ?0.09 ?? Left ? Pressure (mm Hg) ?? Brachial Artery ?160 ? Interpretation: RIGHT: Moderately severe lower extremity arterial occlusive disease to the distal calf. Toe-brachialindex substantially lower than ankle-brachial index indicates presence of severe arterial occlusive disease in the foot. Mild improvement in the dorsalis pedis and posterior tibial arteries with no iden tifiable change in the TBI when compared to previous exam performed on 08/10/2016. Impression: Atherosclerotic PAD with right leg claudication, and s/p left AKA, s/p resection infected LLE bypass graft with left groin wound sartorius muscle flap Recommendations: She will continue to work with her prosthesis company to monitor any areas of pressure causing erosions on her left leg and if any of these are not healing she must contact me. Otherwise, her right foot is stable so I have asked her to continue to [...] intervention at this point. If her right medial ankle dry eschar worsens then she will call me. If her right leg remains stable we [...] Component Value [facility] Method Time Signature VB Text Department: Vascular Surgery Lab [facility] Report Patient: [id number] (CARRIE PERRY) CPT: 01590 ICD10: Z89.612;I70.211 Referring Physician: JOSE CRUZ FOWLER [...] this encounter Visit Diagnoses Diagnosis Atherosclerosis of [place] artery of righ t lower extremity with intermittent claudication Atherosclerosis of [place] arteries of th e extremities with intermittent claudication 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 documented in this encounter Care Teams Manager Assurance Relationship Specialty Start Date End Date Gordy Gregg MD PCP - General Family Medicine 05/19/[address] [place] [address] documented as of this encounter
--- OUTSIDE RECORDS SUMMARY | 2022-01-25 00:54 | XMS_ITS | Encounter Summary ---
:1950 Author Organization [facility] [place] [address] Care Team Providers Name Role Phone Gordy Gregg MD Primary Care Provider [phone] Reason for Visit Reason Onset Date Comments Other 06/25/2018 DECLINED FOLLOW-UP Encounter Details Date Type Department Care Team Description 06/25/2018 Telephone Cardiology at [facility] Michael Luong, Other (DECLINED [facility] FOLLOW-UP) [place] [address] CARDIOLOGY DEPT. [place] [id number] (Wo rk) Social History Tobacco Use Types Packs/Day Years Used Date Never Smoker Smokeless Tobacco: Never Used Alcohol Use Standard Drinks/Week Comments No 0 (1 standard drink = 0.6 oz pure alcoho l) Sex Assigned at Date Recorded Not on file documented as of this encounter Miscellaneous Notes Telephone Encounter - Yolanda Bruno - 06/25/2018 10:12 AM EST Pt called in to let us know that she has transferred her cardiac care to a more local practice. Recall removed from sytem. documented in this encounter Plan of Treatment Not on filedocumented as of this encounter Visit Diagnoses Not on filedocumented in this encounter Care Teams Furniture Sales Associate Relationship Specialty Start Date End Date Gordy Gregg MD PCP - General Family Medicine 05/19/[address] [place] [address] documented as of this encounter
--- OUTSIDE RECORDS SUMMARY | 2022-01-25 00:54 | XMS_ITS | Encounter Summary ---
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 [facility] [place] [phone] Social History Tobacco Use Types Packs/Day Years Used Date Never Smoker Smokeless Tobacco: Never Used Alcohol Use Standard Drinks/Week Comments No 0 (1 standard drink = 0.6 oz pure alcoho l) Sex Assigned at Date Recorded Not on file documented as of this encounter Last Filed Vital Signs Vital Sign Reading Time Taken Comments Blood Pressure 140/55 08/10/2016 11:22 AM EST Pulse 55 08/10/2016 11:22 AM EST Temperature - - Respiratory Rate - - Oxygen Saturation - - Inhaled Oxygen Concentration - - Weight 57.6 kg (127 lb) 08/10/2016 11:22 AM EST Height 152.4 cm (5') 08/10/2016 11:22 AM EST Body Mass Index 24.8 08/10/2016 11:22 AM EST documented in this encounter Patient Instructions Patient InstructionsRadha Waller PA - 08/10/2016 11:30 AM EST The left groin incisional wound continues to recur which is likely related to pressure from her leftleg prosthesis. She should work with her prosthesis company to adjust her left amp sleeves to fit correctly and avoid pressure on the incision. If this area is worsening then she must contact me. Otherwise, her right foot is stable despite the poor perfusion evident on her SOSA assessment. I haveasked her to continue to monitor her right leg closely and contact us if there are any signs of restpain or tissue loss. She may continue to use her leg for exercise to help promote collateral flow but should avoid injury to the foot as a wound that develops there is unlikely to heal without intervention at this point. If her right leg remains stable we will repeat ABIs again in 3-6 months and I can see her in the office at that time again. documented in this encounter Progress Notes Radha Waller PA - 08/10/2016 11:30 AM EST This patient returned to the vascular clinic today for reevaluation of her PAD. Since her last visit she has continued to work on ambulating with the use of a left leg prosthesis (s/p left AKA Jul 2015). She has been doing well with walking with the prosthesis and sometimes uses only a cane or walker. She continues to develop some rubbing pressure to the left groin incision site from her prosthesis and periodically rubs open the distal end of the incision. She typically applies antibiotic ointment and gauze to this and then by limiting use of her prosthesis or pressure from thesame the area heals. She has not revisited her prosthetician to work on adjusting the prosthesis to avoid this pressure yet. There has been no surrounding erythema, malodor, fevers/chills. She is walking on her right leg [...] CONDUIT performed by Mariano Doyle MD at [facility] OR ??? Pro bypass graft vein patch/cuff, synthetic Left 05/26/2015 PLACEMENT VEIN PATCH OR CUFF AT DISTAL ANASTOMOSIS OF BYPASS GRAFT, SYNTHETIC CONDUIT , RODRIGUEZ-COLLAR, RACHELLE-PATCH, ADD-ON CODE, LOWER EXTREMITY performed by Mariano Doyle MD at [facility] OR ??? Pro thromboendartectmy iliofemoral Left 05/26/2015 @ENDARTERECTOMY, ILIOFEMORAL W OR W/O PATCH GRAFT performed by Mariano Doyle MD at [facility] OR ??? Pro reoperation, bypass graft Left 05/26/2015 @RE-OP FOR RE-DO LOWER EXTREMITY BYPASS GRAFT, >1 MONTH P\ ORIGINAL SURGERY, ADD-ON CODE performed by Mariano Doyle MD at [facility] OR ??? Pro amputation low leg, circular Left 07/24/2015 @AMPUTATION, BELOW-KNEE, OPEN, GUILLOTINE performed by Horace Diaz MD at [facility] OR ??? Pro exploration, femoral artery Left 07/24/2015 @EXPLORATION, W/WO LYSIS, FEMORAL ARTERY W\O SURGICAL REPAIR performed by Horace Diaz MD at [facility] OR ??? Pro negative pressure wound therapy, less than or equal to 50 sqcm Left 07/24/2015 DRESSING CHANGE (VAC ASSISTED) UP TO 50SQ.CM performed by Horace Diaz MD at [facility] OR ??? Pro rebl ves direct, low extrem Left 07/24/2015 REPAIR LOWER EXTREMITY BLOOD VESSEL, DIRECT, NO PATCH OR GRAFT performed by Horace Diaz MD at [facility] OR ??? Pro excision, infec graft, extremity Left 07/24/2015 EXCISION OF INFECTED GRAFT FROM LOWER EXTREMITY performed by Horace Diaz MD at [facility] OR ??? Pro muscle-skin flap, leg Left 07/27/2015 FLAP, MYOCUTANEOUS OR FASCIOCUTANEOUS, LOWER EXTREMITY performed by Horace Diaz MD at [facility] OR ? ? Pro debridement subcutaneous tissue 20 sqcm/< Left 07/27/2015 DEBRIDEMENT SKIN AND SUBCU, LOWER EXTREMITY performed by oHrace Diaz MD at [facility] OR ??? Pro dressing change under anesthesia Left 07/29/2015 DRESSING CHANGE (FOR OTHER THAN ESCALANTE) UNDER ANES., LOWER EXTREMITY performed by Horace Diaz MD at [facility] OR ??? Pro amputate thigh, secondry closur Left 07/29/2015 AMPUTATION, ABOVE-KNEE, SECONDARY CLOSURE OR SCAR REVISION performed by Horace Diaz MD at [facility] OR Social Hx: Social History Substance Use Topics ??? Smoking status: Never Smoker ??? Smokeless tobacco: Never Used ??? Alcohol use No Medications: Medications 08/10/16 1402 Medication Sig Taking? simvastatin (ZOCOR) 20 mg Tablet Take 20 [...] Solution Inject 22 Units subcutaneously nightly. Yes clopidogrel (PLAVIX) 75 mg [...] other ROS negative Physical Exam: Vitals: Vitals: 08/10/16 1122 BP: 140/55 Pulse: 55 Gen: No acute distress. HEENT: Normocephalic, atraumatic. No scleral icterus. (+) glasses Neck: Supple, no JVD. Heart: Regular rate and rhythm. Lungs: Regular respiratory rate with no increased work of breathing. Extremities: 2+ femoral pulses bilaterally, nonpalp right pop or pedal pulses. Left groin incision- There was a small erosion of the distal most end of the incision line with no tunneling or any evidence of a draining sinus. There was no evidence of cellulitis or wound infection on exam today. The remainder of the incision line was healed. Right foot - no tissue loss. Mild dependant rubor of forefoot present. No gross motor/sensory deficits on exam. Psych: AAOx3 Studies: ABIs: 2/3/17 Findings: Right ?Pressure (mm Hg) ?? SOSA ??Waveform ? TBI ?? Brachial Artery ?150 ? Dorsalis Pedis (Ankle) Artery ?39 ?0.26 ??Monophasic ? Posterior Tibial (Ankle) Artery ??40 ?0.27 ??Monophasic ? Great Toe ?17 ?0.11 ?? Left ? Pressure (mm Hg) ?? Brachial Artery ?150 ? Interpretation: RIGHT: Severe lower extremity arterial occlusive disease. No significant change compared to previousexam. Impression: left groin wound, s/p left AKA, s/p resection infected LLE bypass graft with left groin wound sartorius muscle flap and VAC placement, atherosclerotic PAD with right leg claudication Recommendations: The left groin incisional wound continues to recur which is likely related to pressure from her left leg prosthesis. She should work with her prosthesis company to adjust her left amp sleeves to fit correctly and avoid pressure on the incision. If this area is worsening then she must contact me. Otherwise, her right foot is stable despite the poor perfusion evident on her SOSA assessment. I haveasked her to continue to monitor her right leg closely and contact us if there are any signs of restpain or tissue loss. She may continue to use her leg for exercise to help promote collateral flow but should avoid injury to the foot as a wound that develops there is unlikely to heal without intervention at this point. If her right leg remains stable we will repeat ABIs again in 3-6 months and I can see her in the office at that time again. documented in this encounter Plan of Treatment Not on filedocumented as of this encounter Results SOSA, legs, multiple levels (11/09/2016 9:57 AM EDT) Component Value Ref Test Analysis Performed At [facility] Range Method Time Signature VB Text Department: Vascular Surgery Lab VASCUBASE Report Patient: [id number] (CARRIE PERRY) CPT: 60027 ICD10: Z89.612;I70.211 Referring Physician: HORACE IDAZ ?? Phone: Indications: Patient with PAD with claudication, h/o left AK A, ? change in RIGHT SOSA Diabetes mellitus: Yes ICD10 Diagnosis Code: Z89.612, I70.211 Findings: Right ?Pressure (mm Hg) ?? SOSA ??Waveform ? TBI ?? Brachial Artery ?157 ? Dorsalis Pedis (Ankle) Arter y ?62 ?0.39 ??Monophasic ? Posterior Tibial (Ankle) Art gregory ??66 ?0.41 ??Monophasic ? Great Toe ?15 ?0.09 ?? Left ? Pressure (mm Hg) ?? Brachial Artery ?160 ? Interpretation: RIGHT: Moderately severe lower extremity arterial occlusive disease to the distal calf. Toe-brachial index substantially lo wer than ankle-brachial index indicates presence of severe arterial occlusive disease in t he foot. Mild improvement in the dorsalis pedis and posterior tibial arter ies with no identifiable change in the TBI when compared to previous exa m performed on 08/10/2016. LEFT: AKA. Previous ABIs with change from [...] 0.11( -.02) ---- ? ---- ? ---- Current ? 0.39(+.13) 0.4 1(+.14) 0.09(-.02) ---- ? ---- ? 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
--- OUTSIDE RECORDS SUMMARY | 2022-01-25 00:54 | XMS_ITS | Encounter Summary ---
:1950 Author Organization [facility] [place] [address] Care Team Providers Name Role Phone Gordy Gregg MD Primary Care Provider Encounter Details Date Type Department Care Team Description 05/24/2020 Office Visit Vascular Surgery at [facility] Ather osclerosis of [facility], SENIOR POWER PLANT OPERATOR [place] artery of [facility] ext remity with [facility] DR brittany [place], [place] VASCULAR SURGERY claudication [id number] [place] [address] [phone] Social History Tobacco Use Types Packs/Day Years Used Date Never Smoker Smokeless Tobacco: Never Used Alcohol Use Standard Drinks/Week Comments No 0 (1 standard drink = 0.6 oz pure alcoho l) Sex Assigned at Date Recorded Not on file documented as of this encounter Last Filed Vital Signs Vital Sign Reading Time Taken Comments Blood Pressure 133/85 05/24/2020 11:35 AM EST Pulse 61 05/24/2020 11:35 AM EST Temperature - - Respiratory Rate - - Oxygen Saturation - - Inhaled Oxygen Concentration - - Weight 76.2 kg (168 lb) 05/24/2020 11:35 AM EST reporte d Height 152.4 cm (5') 05/24/2020 11:35 AM EST reported Body Mass Index 32.81 05/24/2020 11:35 AM EST documented in this encounter Progress Notes Margi Lockhart, MAGALY - 05/24/2020 11:30 AM EST Images from the original note were not included. This patient returned to the vascular clinic today for reevaluation of her PAD. Ms. Perry is a 69 y/o F with PMH: DMII, HTN, HLD, [...] ??? PVD (peripheral vascular disease) Medications: Medications 12/10/19 1105 Medication Sig Taking? atorvastatin (Lipitor) 40 mg Tablet TAKE 1 TABLET BY MOUTH AT BEDTIME amLODIPine (Norvasc) 5 mg Tablet TK 1 T PO QD fenofibrate (TRICOR) 54 mg Tablet TAKE ONE TABLET BY MOUTH DAILY Jardiance 10 mg Tablet TK 1 T PO QD isosorbide dinitrate (Isordil) 30 mg Tablet Take 30 mg by mouth 4 times daily. NAZIA CARRIZALES U-100 INSULIN 100 unit/mL (3 [...] ND, no palpable pulsatile masses Extremity - [place], warm, no ulceration, brisk capillary refill, no edema left groin area with small nearly healed superficial open area in crease No infection Left groin wound. Vascular: R L Radial 2/2 2/2 DP 1/2 - PT 1/2 - 05/24/2020 SOSA Findings: Right ?Pressure (mm Hg) ?? SOSA ??Waveform ? TBI ?? Brachial Artery ?128 ? Dorsalis Pedis (Ankle) Artery ?62 ?0.47 ??Monophasic ? Posterior Tibial (Ankle) Artery ??70 ?0.53 ??Monophasic ? Great Toe ?37 ?0.28 ?? Left ? Pressure (mm Hg) ?? Brachial Artery ?132 ? Interpretation: RIGHT: Moderate to moderately severe lower extremity arterial occlusive disease. No significant change in the DP SOSA or TBI when compared to previous exam. Improvement in the PT SOSA when compared to most recent, although today's PT SOSA is consistent with exam prior to that. ?? LEFT: ??AKA Assessment/Plan: 69 yo female s/p L AKA 07/2015. SOSA's stable on right, R DP 0.47, R PT 0.53. Denies claudication, rest pain or tissue loss. Medi-honey daily to left thigh abrasion, cover with dry dressing, continue PRN. Continue ASA, Plavix, statin. RTC 6 months with ABIs; or before if problems. Mragi Lockhart APRN Department of Vascular Surgery documented in this encounter Plan of Treatment Not on filedocumented as of this encounter Results SOSA, legs, multiple levels (11/22/2020 12:55 PM EDT) Component Value Ref Test Analysis Performed At [facility] [employer] Range Method Time Signature VB Text Department: Vascular Surgery Lab VASCUBASE Report Patient: [id number] (CARRIE PERRY) CPT: 47635 ICD10: I70.211 Referring Physician: MARGI LOCKHART ?? [...] completed than are shown. Electronically Signed by: ARMIN PRITCHETT on 2020-11-23 03: 26:01 PM VB Text End of Report VASCUBASE Report Specimen (Source) Anatomical Collection Method Collection Time Re ceived Time Location / / Volume Laterality 11/22/2020 12:55 PM EDT Margi Lockhart APRN VASCULAR ORDERABLES Performing Organization Address City/State/ZIP Code Phon e Number VASCUBASE documented in this encounter Visit Diagnoses Diagnosis Atherosclerosis of [place] artery of righ t lower extremity with intermittent claudication Atherosclerosis of [place] arteries of th e extremities with intermittent claudication documented in this encounter Care Teams Pilot Supervisor Relationship Specialty Start Date End Date Gordy Gregg MD PCP - General Family Medicine 05/19/[address] [place] [address] documented as of this encounter
--- OUTSIDE RECORDS SUMMARY | 2022-01-25 00:54 | XMS_ITS | Encounter Summary ---
:1950 Author Organization [place] [address] Care Team Providers Name Role Phone Gordy Gregg MD Primary Care Provider [phone] Encounter Details Date Type Department Care Team Description 12/10/2019 Office Visit Vascular Surgery at [facility], Un ilateral AKA, left [facility] STEEL RULE INSPECTOR [facility] [place] [address] VASCULAR SURGERY [phone] [place] [id number] Social History Tobacco Use Types Packs/Day Years Used Date Never Smoker Smokeless Tobacco: Never Used Alcohol Use Standard Drinks/Week Comments No 0 (1 standard drink = 0.6 oz pure alcoho l) Sex Assigned at Date Recorded Not on file documented as of this encounter Last Filed Vital Signs Vital Sign Reading Time Taken Comments Blood Pressure 133/60 12/10/2019 11:04 AM EDT Pulse 62 12/10/2019 11:04 AM EDT Temperature - - Respiratory Rate - - Oxygen Saturation - - Inhaled Oxygen Concentration - - Weight 72.6 kg (160 lb) 12/10/2019 11:04 AM EDT reporte d Height 152.4 cm (5') 12/10/2019 11:04 AM EDT reported Body Mass Index 31.25 12/10/2019 11:04 AM EDT documented in this encounter Progress Notes Evens Virk, STEEL RULE INSPECTOR - 12/10/2019 11:00 AM EDT This patient returned to the vascular clinic today for reevaluation of her PAD. Ms. Aris reports that she continues to do well. She walking with her left leg prosthesis and walkerat home (s/p left AKA Jul 2015) Denies rest pain, tissue loss, SOB, chest pain, TIA's She does not walk much. Occ left groin superficial open area form rubbing of protheses. No infection She remains on aspirin, Plavix, and a [...] REVISION performed by Horace Diaz MD at [facility] MAIN OR ??? PRO AMPUTATION LOW LEG, CIRCULAR Left 07/24/2015 @AMPUTATION, BELOW-KNEE, OPEN, GUILLOTINE performed by Horace Diaz MD at [facility] MAIN OR ??? PRO BYPASS GRAFT OTHR, FEM-TIBIAL Left 05/26/2015 @BYPASS GRAFT, FEM-ANT TIBIAL, -POST TIBIAL, -PERONEAL, -DP W\ SYNTHETIC CONDUIT performed by Mariano Doyle MD at [facility] OR ??? PRO BYPASS GRAFT VEIN PATCH/CUFF, SYNTHETIC Left 05/26/2015 PLACEMENT VEIN PATCH OR CUFF AT DISTAL ANASTOMOSIS OF BYPASS GRAFT, SYNTHETIC CONDUIT , RODRIGUEZ-COLLAR, RACHELLE-PATCH, ADD-ON CODE, LOWER EXTREMITY performed by Mariano Doyle MD at [facility] MAIN OR ? ? PRO DEBRIDEMENT SUBCUTANEOUS TISSUE 20 SQCM/< Left 07/27/2015 DEBRIDEMENT SKIN AND SUBCU, LOWER EXTREMITY performed by Horace Diaz MD at [facility] MAIN OR ??? PRO DRESSING CHANGE UNDER ANESTHESIA Left 07/29/2015 DRESSING CHANGE (FOR OTHER THAN ESCALANTE) UNDER ANES., LOWER EXTREMITY performed by Horace Diaz MD at [facility] OR ??? PRO EXCISION, INFEC GRAFT, EXTREMITY Left 07/24/2015 EXCISION OF INFECTED GRAFT FROM LOWER EXTREMITY performed by Horace Diaz MD at [facility] OR ??? PRO EXPLORATION, FEMORAL ARTERY Left 07/24/2015 @EXPLORATION, W/WO LYSIS, FEMORAL ARTERY W\O SURGICAL REPAIR performed by Horace Diaz MD at [facility] OR ??? PRO MUSCLE-SKIN FLAP, LEG Left 07/27/2015 FLAP, MYOCUTANEOUS OR FASCIOCUTANEOUS, LOWER EXTREMITY performed by Horace Diaz MD at [facility] OR ??? PRO NEGATIVE PRESSURE WOUND THERAPY, LESS THAN OR EQUAL TO 50 SQCM Left 07/24/2015 DRESSING CHANGE (VAC ASSISTED) UP TO 50SQ.CM performed by Horace Diaz MD at [facility] OR ??? PRO REBL VES DIRECT, LOW EXTREM Left 07/24/2015 REPAIR LOWER EXTREMITY BLOOD VESSEL, DIRECT, NO PATCH OR GRAFT performed by Horace Diaz MD at [facility] OR ??? PRO REOPERATION, BYPASS GRAFT Left 05/26/2015 @RE-OP FOR RE-DO LOWER EXTREMITY BYPASS GRAFT, >1 MONTH P\ ORIGINAL SURGERY, ADD-ON CODE performed by Mariano Doyle MD at [facility] OR ??? PRO THROMBOENDARTECTMY ILIOFEMORAL Left 05/26/2015 @ENDARTERECTOMY, ILIOFEMORAL W OR W/O PATCH GRAFT performed by Mariano Doyle MD at [facility] OR ??? PRO VEIN BYPASS GRAFT, FEM-TIBIAL Left 03/18/2015 Left SFA to peroneal bypass with vein ??? SKIN GRAFT Left left 2nd metacarpal Social Hx: Social History Tobacco Use ??? Smoking status: Never Smoker ??? Smokeless tobacco: Never Used Substance Use Topics ??? Alcohol use: No Alcohol/week: 0.0 standard drinks Medications: Medications 10/08/18 0933 Medication Sig Taking? NAZIA CARRIZALES U-100 INSULIN 100 unit/mL (3 mL) pen inject 20 units subcutaneously at bedtime DISCONTINUE LANTUS isosorbide mononitrate (IMDUR) 30 mg Tablet Sustained Release 24 hr take 1 tablet by mouth once daily clopidogrel (PLAVIX) 75 mg Tablet Take 1 tablet by mouth daily. simvastatin (ZOCOR) 20 mg Tablet Take 20 mg by mouth nightly. sertraline (ZOLOFT) 25 mg Tablet Take 75 [...] ND, no palpable pulsatile masses Extremity - [place], warm, no ulceration, brisk capillary refill, no edema left groin area with small nearly healed superficial open area in crease No infection Vascular: R L Carotid 2/2 bruit (n) 2/2 bruit (n) Radial 2/2 2/2 DP -/2 PT -/2 ABIs: Right ?Pressure (mm Hg) ?? SOSA ??Waveform ? TBI ?? Brachial Artery ?128 ? Dorsalis Pedis (Ankle) Artery ?53 ?0.41 ??Monophasic ? Posterior Tibial (Ankle) Artery ??47 ?0.37 ??Monophasic ? Great Toe ?36 ?0.28 ? Left ? Pressure (mm Hg) ?? Brachial Artery ?127 ? Interpretation: RIGHT: Moderately severe lower extremity arterial occlusive disease. The posterior tibial artery is nearly occluded??by duplex at the ankle; HOUSE RN SOSA may be a collateral vessel. Deterioration in SOSA, no change in TBI compared to previous exam. ? Assessment/Plan: 69 yo female s/p L AKA 07/2015.. SOSA's on right slight decrease. no tissue loss. Continue ASA, Plavix, statin. RTC 6 months with ABIs; or before if problems documented in this encounter Plan of Treatment Not on filedocumented as of this encounter Results SOSA, legs, multiple levels (05/24/2020 10:30 AM EST) Component Value Ref Test Analysis Performed At [facility] Range Method Time Signature VB Text Department: Vascular Surgery Lab VASCUBASE Report Patient: [id number] (CARRIE PERRY) CPT: 50346 ICD10: S78.112A;I77.1 Referring Physician: EVENS VIRK APRN ?? Phone: Indications: ?? F/U PAD, history L AKA. ??? change from prev ious exam. Diabetes mellitus: Yes ICD10 Diagnosis Code: S78.112A Findings: Right ?Pressure (mm Hg) ?? SOSA ??Waveform ? TBI ?? Brachial Artery ?128 ? Dorsalis Pedis (Ankle) Arter y ?62 ?0.47 ??Monophasic ? Posterior Tibial (Ankle) Art gregory ??70 ?0.53 ??Monophasic ? Great Toe ?37 ?0.28 ?? Left ? Pressure (mm Hg) ?? Brachial Artery ?132 ? Interpretation: RIGHT: Moderate to moderately severe lower extremity arteria l occlusive disease. No significant change in the DP SOSA or TBI when compared to previous exam. Improvement in the PT SOSA when com pared to most recent, although today's PT SOSA is consistent with exam prior to that. LEFT: ??AKA Previous ABIs with change from [...] 0.51(+.04) 0.26(-.02) ---- ??0.41(-.09) 0.37(-.14) 0.28(+.02) ---- Current ? 0.47(+.06) 0.53(+.16) 0.28( .00) ---- Date ?LEFT DP ?LEFT PT ?LT [...] ---- Electronically Signed by: HORACE DIAZ on 2020-05-25 12:18:18 PM VB Text End of Report VASCUBASE Report Specimen (Source) Anatomical Collection Method Collection Time Re ceived Time Location / / Volume Laterality 05/24/2020 10:30 AM EST [facility] STEEL RULE INSPECTOR VASCULAR ORDERABLES Performing Organization Address City/State/ZIP Code Phon e Number VASCUBASE documented in this encounter Visit Diagnoses Diagnosis Unilateral AKA, left documented in this encounter Care Teams Senior Digital Designer Relationship Specialty Start Date End Date Gordy Gregg MD PCP - General Family Medicine 05/19/[address] [place] [address] documented as of this encounter
--- OUTSIDE RECORDS SUMMARY | 2022-01-25 00:54 | XMS_ITS | Encounter Summary ---
:1950 [place] [address] Care Team Providers Name Role Phone Gordy Gregg MD Primary Care Provider [phone] Encounter Details Date Type Department Care Team Description 02/21/2016 Hospital Encounter Vascular Lab at [facility] post above knee amputation of left lower extremity; Haley Rodriguez, ZAINT PAD (peripher al artery disease) [place] [id number] Social History Tobacco Use Types Packs/Day Years Used Date Never Smoker Smokeless Tobacco: Never Used Alcohol Use Standard Drinks/Week Comments No 0 (1 standard drink = 0.6 oz pure alcoho l) Sex Assigned at Date Recorded Not on file documented as of this encounter Medications at Time of Discharge Medication Sig Dispensed Refills Start Date End Date traZODone (DESYREL) 50 Take 50 mg by [...] for Pain (mild to moderate pain (1-6)). doxycycline Take 100 mg by mouth 2 0 1 08/13/2015 (VIBRA-TABS) 100 mg times daily. Tablet clopidogrel (PLAVIX) Take 1 tablet by mouth 30 tablet 11 12/201508/13/2016 75 mg Tablet daily. LORazepam (ATIVAN) 0.5 Take 1 tablet by mouth 30 tablet 0 0 08/13/2015 06/12/2016 mg Tablet every 6 hours as needed for Anxiety. meTOPROLOL succinate Take 1 tablet by mouth 30 tablet 12 03/201504/18/2016 (TOPROL-XL) 25 mg daily. Tablet Sustained Release 24 hrIndications: ASCVD (arteriosclerotic cardiovascular disease) multivitamin Take 1 tablet by mouth 0 05/07/2017 (THERAGRAN) Tablet daily. simvastatin (ZOCOR) 20 Take 20 mg by mouth 0 06/12/2016 mg Tablet nightly. documented as of this encounter Plan of Treatment Not on filedocumented as of this encounter Procedures Procedure Name Priority Date/Time Associated Diagnosis Comme nts SOSA, LEGS, MULTIPLE Routine 02/21/2016 10:23 AM Status post ab ove Results for this LEVELS EDT knee amputation of procedure are in left lower extre mity the results PAD (peripheral section. artery disease) documented in this encounter Results SOSA, legs, multiple levels (02/21/2016 10:23 AM EDT) Component Value Ref Test Analysis Performed At [facility] Range Method Time Signature VB Text Department: Vascular Surgery Lab VASCUBASE Report Patient: [id number] (CARRIE PERRY) CPT: 04448 ICD10: Z89.612;I73.9 Referring Physician: NATANAEL NUÑEZ ?? Indications: h/o PVD with Left AKA now for f/u to righ t leg PVD; ? change in SOSA Diabetes mellitus: Yes ICD10 Diagnosis Code: Z89.612, I73.9 Findings: Right ?Pressure (mm Hg) ?? SOSA ??Waveform ? TBI ?? Brachial Artery ?153 ? Dorsalis Pedis (Ankle) Arter y ?48 ?0.31 ??Monophasic ? Posterior Tibial (Ankle) Art gregory ??53 ?0.34 ??Monophasic ? Great Toe ?18 ?0.12 ?? Left ? Pressure (mm Hg) ?? Brachial Artery ?154 ? Interpretation: RIGHT: Severe lower extremity arterial occlusive disease. Si gnificant deterioration compared to previous exam done 10/11/2015. LEFT: ??AKA Previous ABIs with change from [...] 0.21( -.03) ---- ? ---- ? ---- Current ? 0.31(-.17) 0.3 4(-.15) 0.12(-.09) ---- ? ---- ? ---- Electronically Signed by: NATANAEL NUÑEZ on 2016-02-23 09:05: 59 PM VB Text End of Report VASCUBASE Report Specimen (Source) Anatomical Collection Method Collection Time Re ceived Time Location / / Volume Laterality 02/21/2016 10:23 AM EDT Natanael Nuñez MD VASCULAR ORDERABLES Performing Organization Address City/State/ZIP Code Phon e Number VASCUBASE documented in this encounter Visit Diagnoses Diagnosis 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 PAD (peripheral artery disease) Peripheral vascular disease, unspecified documented in this encounter Care Teams Corn Cooker Relationship Specialty Start Date End Date Gordy Gregg MD PCP - General Family Medicine 05/19/[address] [place] [address] documented as of this encounter
--- OUTSIDE RECORDS SUMMARY | 2022-01-25 00:54 | XMS_ITS | Encounter Summary ---
:1950 Author Organization [facility] [place] [address] Care Team Providers Name Role Phone Gordy Gregg MD Primary Care Provider [phone] Encounter Details Date Type Department Care Team Description 06/27/2016 Orders Only Cardiology at [facility] Michael Luong Mitral valve insufficiency, unspecified etiology; [facility] GAIL Casey Cardiomyopathy [facility] [address] CARDIOLOGY DEPT. [phone] [place], [place] [address] Social History Tobacco Use Types Packs/Day Years Used Date Never Smoker Smokeless Tobacco: Never Used Alcohol Use Standard Drinks/Week Comments No 0 (1 standard drink = 0.6 oz pure alcoho l) Sex Assigned at Date Recorded Not on file documented as of this encounter Plan of Treatment Not on filedocumented as of this encounter Visit Diagnoses Diagnosis Mitral valve insufficiency, unspecified etiology Cardiomyopathy Other primary cardiomyopathies documented in this encounter Care Teams Gas Furnace Installer Relationship Specialty Start Date End Date Gordy Gregg MD PCP - General Family Medicine 05/19/[address] [place], [place] [id number] documented as of this encounter
--- OUTSIDE RECORDS SUMMARY | 2022-01-25 00:54 | XMS_ITS | Encounter Summary ---
:1950 [place] [address] Care Team Providers Name Role Phone Gordy Gregg MD Primary Care Provider [phone] Encounter Details Date Type Department Care Team Description 10/08/2018 Tech Visit Vascular Lab at [facility]ler[facility] of [place] artery of right lower extremity with intermittent claudication; [facility]3], [place] Status po st above knee [place]putation [place] [phone] Social History Tobacco Use Types Packs/Day Years [...] Associated Diagnosis Comme nts SOSA, LEGS, Routine 10/08/2018 8:12 AM Atherosclerosis of Res ults for this MULTIPLE LEVELS EDT [place] artery of right pr ocedure are in lower extremity with the res ults intermittent section. claudication Status post above knee amputation of left lower extremity documented in this encounter Results SOSA, legs, multiple levels (10/08/2018 8:12 AM EDT) Component Value Ref Test Analysis Performed At [facility] Range Method Time Signature VB Text Department: Vascular Surgery Lab VASCUBASE Report Patient: [id number] (CARRIE PERRY) CPT: 14337 ICD10: I70.211;Z89.612 Referring Physician: HORACE STABLEFORD ?? Phone: Indications: Hx of L AKA, [...] Volume Laterality 10/08/2018 8:12 AM EDT Horace Caal MD VASCULAR ORDERABLES Performing Organization Address City/State/ZIP Code Phon e Number VASCUBASE documented in this encounter Visit Diagnoses Diagnosis Atherosclerosis of [place] artery of righ t lower extremity with intermittent claudication Atherosclerosis of [place] arteries of th e extremities with intermittent claudication 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 documented in this encounter Care Teams Hot Mill Tin Roller Relationship Specialty Start Date End Date Gordy Gregg MD PCP - General Family Medicine 05/19/[address] [place] [address] documented as of this encounter
--- OUTSIDE RECORDS SUMMARY | 2022-01-25 00:54 | XMS_ITS | Encounter Summary ---
:1950 [place] [address] Care Team Providers Name Role Phone Gordy Gregg MD Primary Care Provider [phone] Encounter Details Date Type Department Care Team Description 11/09/2016 Hospital Encounter Vascular Lab at [facility], Athero sclerosis of [place] artery of right lower extremity with intermittent claudication; [place], [place] Status post a shad knee [place]putation [place] [phone] Social History Tobacco Use Types Packs/Day Years [...] by mouth 0 12/10/2019 mg Tablet nightly. multivitamin Take 1 tablet by mouth 0 05/07/2017 (THERAGRAN) Tablet daily. documented as of this encounter Plan of Treatment Not on filedocumented as of this encounter Procedures Procedure Name Priority Date/Time Associated Diagnosis Comme nts SOSA, LEGS, Routine 11/09/2016 9:57 AM Atherosclerosis of Res ults for this MULTIPLE LEVELS EDT [place] artery of right pr jorjedudion are in lower extremity with the res ults intermittent section. claudication Status post above knee amputation of left lower extremity documented in this encounter Results SOSA, legs, multiple levels (11/09/2016 9:57 AM EDT) Component Value Ref Test Analysis Performed At [facility]Forms Range Method Time Signature VB Text Department: Vascular Surgery Lab VASCUBASE Report Patient: [id number] (CARRIE PERRY) CPT: 00168 ICD10: Z89.612;I70.211 Referring Physician: HORACE DIAZ ?? Phone: Indications: Patient with PAD with [...] this encounter Visit Diagnoses Diagnosis Atherosclerosis of [place] artery of righ t lower extremity with intermittent claudication Atherosclerosis of [place] arteries of th e extremities with intermittent claudication 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 documented in this encounter Care Teams Associate Account Director Relationship Specialty Start Date End Date Gordy Gregg MD PCP - General Family Medicine 05/19/[address] [place] [address] documented as of this encounter
--- OUTSIDE RECORDS SUMMARY | 2022-01-25 00:54 | XMS_ITS | Encounter Summary ---
:1950 Author Organization [facility] [place] [address] Care Team Providers Name Role Phone Gordy Gregg MD Primary Care Provider [phone] Reason for Visit Reason Onset Date Comments Follow-up 03/15/2016 Encounter Details Date Type Department Care Team Description 03/15/2016 Telephone Vascular Surgery at [facility] Radha Waller PA Follow-up [address] [address] VASCULAR SURGERY [phone] [place], [place] [address] (Wo rk) Social History Tobacco Use Types Packs/Day Years Used Date Never Smoker Smokeless Tobacco: Never Used Alcohol Use Standard Drinks/Week Comments No 0 (1 standard drink = 0.6 oz pure alcoho l) Sex Assigned at Date Recorded Not on file documented as of this encounter Miscellaneous Notes Telephone Encounter - Radha Waller PA - 03/15/2016 1:05 PM EDT I called this patient to reevaluate the left groin incisional wound and the symptoms in her right leg. She reports the left groin incision remains closed at this point as long as the garments for her prosthesis do not rub over it. She wears the prosthesis dressings only when necessary because otherwise these seem to still irritate the left groin incision. She denies drainage or any opening of this area currently. On the right she continues to deny rest pain or tissue loss. She continues to work with PT for gait training with her prosthesis and does notice some right calf fatigue during therapy but is not limited by this currently. We will maintain our prior plan for a 3 month follow up with ABIs prior (due in May). She will call with any new questions or concerns. documented in this encounter Plan of Treatment Not on filedocumented as of this encounter Visit Diagnoses Diagnosis 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 PAD (peripheral artery disease) Peripheral vascular disease, unspecified documented in this encounter Care Teams Tax Collector Relationship Specialty Start Date End Date Gordy Gregg MD PCP - General Family Medicine 05/19/[address] [place] [address] documented as of this encounter
--- OUTSIDE RECORDS SUMMARY | 2022-01-25 00:54 | XMS_ITS | Encounter Summary ---
:1950 [place] [address] Care Team Providers Name Role Phone Gordy Gregg MD Primary Care Provider [phone] Encounter Details Date Type Department Care Team Description 12/10/2019 Tech Visit Vascular Lab at [facility], [facility] post above-knee [facility] RVT amputatio n of [facility] [place] [address] Social History Tobacco Use Types Packs/Day Years [...] Diagnosis Comme nts SOSA, LEGS, MULTIPLE Routine 12/10/2019 9:52 AM Status post Re sults for this LEVELS EDT above-knee procedure are i n amputation of left the [facility] lower extremity section. documented in this encounter Results SOSA, legs, multiple levels (12/10/2019 9:52 AM EDT) Component Value Ref Test Analysis Performed At [facility] Range Method Time Signature VB Text Department: Vascular Surgery Lab VASCUBASE Report Patient: [id number] (CARRIE PERRY) CPT: 98897 ICD10: I70.211;Z89.612 Referring Physician: EVENS VIRK, MAGALY ?? Phone: Indications: Left AKA, right LE [...] occlud ed by duplex at the ankle; BLENDING MACHINE OPERATOR OSSA may be a collateral vessel. No significant [...] this encounter Visit Diagnoses Diagnosis Status post above-knee amputation of lef t lower extremity documented in this encounter Care Teams Supervisor Plasma Relationship Specialty Start Date End Date Gordy rGegg MD PCP - General Family Medicine 05/19/[address] [place] [address] documented as of this encounter
--- OUTSIDE RECORDS SUMMARY | 2022-01-25 00:54 | XMS_ITS | Encounter Summary ---
:1950 [place] [address] Care Team Providers Name Role Phone Gordy Gregg MD Primary Care Provider [phone] Encounter Details Date Type Department Care Team Description 05/08/2016 Hospital Encounter Vascular Lab at [facility], PAD [facility] [place] [place] [phone] Social History Tobacco Use Types Packs/Day Years Used Date Never Smoker Smokeless Tobacco: Never Used Alcohol Use Standard Drinks/Week Comments No 0 (1 standard drink = 0.6 oz pure alcoho l) Sex Assigned at Date Recorded Not on file documented as of this encounter Medications at Time of Discharge Medication Sig Dispensed Refills Start Date End Date Magnesium Oxide 250 mg Take 1-2 tablets [...] every 6 hours as needed for Anxiety. multivitamin Take 1 tablet by mouth 0 05/07/2017 (THERAGRAN) Tablet daily. simvastatin (ZOCOR) 20 Take 20 mg by mouth 0 06/12/2016 mg Tablet nightly. documented as of this encounter Plan of Treatment Not on filedocumented as of this encounter Procedures Procedure Name Priority Date/Time Associated Diagnosis Comme nts SOSA, LEGS, MULTIPLE Routine 05/08/2016 9:11 AM PAD (peripheral Results for this LEVELS EDT artery disease) procedure ar e in the results section. documented in this encounter Results SOSA, legs, multiple levels (05/08/2016 9:11 AM EDT) Component Value Ref Test Analysis Performed At [facility] Range Method Time Signature VB Text Department: Vascular Surgery Lab VASCUBASE Report Patient: [id number] (CARRIE PERRY) CPT: 62330 ICD10: I73.9 Referring Physician: NATANAEL NUÑEZ ?? [...] ---- ? ---- Electronically Signed by: GLEN ENRIQUE on 2016-05-08 10:13:55 AM VB Text End [...] unspecified documented in this encounter Care Teams Sales Performance Manager Relationship Specialty Start Date End Date Gordy Gregg MD PCP - General Family Medicine 05/19/[address] [place] [address] documented as of this encounter
--- OUTSIDE RECORDS SUMMARY | 2022-01-25 00:54 | XMS_ITS | Encounter Summary ---
:1950 [place] [address] Care Team Providers Name Role Phone Gordy Gregg MD Primary Care Provider [phone] Reason for Visit Reason Comments Circulatory Problem Recheck my blood flow Encounter Details Date Type Department Care Team Description 11/21/2017 Office Visit Vascular Surgery at Radha Waller PA Atherosclerosis of [place] artery of righ t lower extremity with intermittent claudication; [address] 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 [facility] [place] [phone] Social History Tobacco Use Types Packs/Day Years Used Date Never Smoker Smokeless Tobacco: Never Used Alcohol Use Standard Drinks/Week Comments No 0 (1 standard drink = 0.6 oz pure alcoho l) Sex Assigned at Date Recorded Not on file documented as of this encounter Last Filed Vital Signs Vital Sign Reading Time Taken Comments Blood Pressure 139/57 11/21/2017 11:16 AM EDT Pulse 52 11/21/2017 11:16 AM EDT Temperature - - Respiratory Rate 18 11/21/2017 11:16 AM EDT Oxygen Saturation - - Inhaled Oxygen Concentration - - Weight 65.8 kg (145 lb) 11/21/2017 11:16 AM EDT Height 152.4 cm (5') 11/21/2017 11:16 AM EDT Body Mass Index 28.32 11/21/2017 11:16 AM EDT documented in this encounter Patient Instructions Patient InstructionsRadha Waller PA - 11/21/2017 11:30 AM EDT Ms. Perry has plans to see her master fisher (Dr. Aleman) within the next 2-3 weeks for routine follow up. I have encouraged her to monitor her right 2nd toe to ensure no open tissue loss or signs of infection develop. If these do occur she is unlikely to heal them without revascularization. Hopefully Dr. Aleman can help adjust/fit her shoe to prevent pressure points. She should continue to monitor her right leg closely and contact us if there are any signs of worsening rest pain or any tissue loss. She may continue [...] encounter Progress Notes Radha Waller PA - 11/21/2017 11:30 AM EDT This patient returned to the vascular clinic today for reevaluation of her PAD. Ms. Perry reports that she continues to do well. She has been gaining weight and required revision of her left AKA socket because her original prosthesis was not fitting correctly. This has been corrected and now she is walking more again with less difficulty/pain related to the prosthesis. However, during the course of the transition she had not been ambulating as much because the amp site was painful. Because of this she has continued to gain weight and would like to now try to lose a bit. She is ambulating with her left leg prosthesis and walker at home (s/p left AKA Jul 2015) and continues withintermittent phantom pain on that side. She continues to note that right calf tires quickly when walking, by about 50 feet and she pauses torest for this to abdelrahman. She notes some burning pain in her right heel at night which has been present for several years but this improves with sitting up and rubbing it at night - she is not sure if it improves with dependency because she has not tried that. She continues to deny rest pain on the right foot. However, she did get new diabetic shoes recently and believes the right shoe is too big. Today she noticed a small amount of redness on the top of her right 2nd toe which she thinks is from rubbing in her shoe. PMHx: Past Medical History: Diagnosis Date ??? [...] REVISION performed by Elicia Caal MD at [facility] MAIN OR ??? PRO AMPUTATION LOW LEG, CIRCULAR Left 07/24/2015 @AMPUTATION, BELOW-KNEE, OPEN, GUILLOTINE performed by Elicia Caal MD at [facility] MAIN OR ??? PRO BYPASS GRAFT OTHR, FEM-TIBIAL Left 05/26/2015 @BYPASS GRAFT, FEM-ANT TIBIAL, -POST TIBIAL, -PERONEAL, -DP W\ SYNTHETIC CONDUIT performed by Mariano Doyle MD at [facility] MAIN OR ??? PRO BYPASS GRAFT VEIN PATCH/CUFF, SYNTHETIC Left 05/26/2015 PLACEMENT VEIN PATCH OR CUFF AT DISTAL ANASTOMOSIS OF BYPASS GRAFT, SYNTHETIC CONDUIT , RODRIGUEZ-COLLAR, RACHELLE-PATCH, ADD-ON CODE, LOWER EXTREMITY performed by Mariano Doyle MD at [facility] MAIN OR ? ? PRO DEBRIDEMENT SUBCUTANEOUS TISSUE 20 SQCM/< Left 07/27/2015 DEBRIDEMENT SKIN AND SUBCU, LOWER EXTREMITY performed by Elicia Caal MD at [facility] MAIN OR ??? PRO DRESSING CHANGE UNDER ANESTHESIA Left 07/29/2015 DRESSING CHANGE (FOR OTHER THAN ESCALANTE) UNDER ANES., LOWER EXTREMITY performed by Elicia Caal MD at [facility] MAIN OR ??? PRO EXCISION, INFEC GRAFT, EXTREMITY Left 07/24/2015 EXCISION OF INFECTED GRAFT FROM LOWER EXTREMITY performed by Elicia Caal MD at [facility] OR ??? PRO EXPLORATION, FEMORAL ARTERY Left 07/24/2015 @EXPLORATION, W/WO LYSIS, FEMORAL ARTERY W\O SURGICAL REPAIR performed by Elicia Caal MD at [facility] OR ??? PRO MUSCLE-SKIN FLAP, LEG Left 07/27/2015 FLAP, MYOCUTANEOUS OR FASCIOCUTANEOUS, LOWER EXTREMITY performed by Elicia Caal MD at [facility] OR ??? PRO NEGATIVE PRESSURE WOUND THERAPY, LESS THAN OR EQUAL TO 50 SQCM Left 07/24/2015 DRESSING CHANGE (VAC ASSISTED) UP TO 50SQ.CM performed by Elicia Caal MD at [facility] OR ??? PRO REBL VES DIRECT, LOW EXTREM Left 07/24/2015 REPAIR LOWER EXTREMITY BLOOD VESSEL, DIRECT, NO PATCH OR GRAFT performed by Elicia aCal MD at [facility] OR ??? PRO REOPERATION, BYPASS GRAFT Left 05/26/2015 @RE-OP FOR RE-DO LOWER EXTREMITY BYPASS GRAFT, >1 MONTH P\ ORIGINAL SURGERY, ADD-ON CODE performed by Mariano Doyle MD at [facility] OR ??? PRO THROMBOENDARTECTMY ILIOFEMORAL Left 05/26/2015 @ENDARTERECTOMY, ILIOFEMORAL W OR W/O PATCH GRAFT performed by Mariano Doyle MD at [facility] OR ??? PRO VEIN BYPASS GRAFT, FEM-TIBIAL Left 03/18/2015 Left SFA to peroneal bypass with vein ??? SKIN GRAFT Left left 2nd metacarpal Social Hx: Social History Substance Use Topics ??? Smoking status: Never Smoker ??? Smokeless tobacco: Never Used ??? Alcohol use No Medications: Medications 11/21/17 1142 Medication Sig Taking? BASAGLHOLLEY CARRIZALES U-100 INSULIN 100 unit/mL (3 mL) [...] negative Physical Exam: Vitals: Most Recent Vitals: 11/21/17 1116 BP: 139/57 Pulse: 52 Resp: 18 PainSc: 0 - No pain Gen: No acute distress. HEENT: Normocephalic, atraumatic. No scleral icterus. (+) glasses Neck: Supple, no JVD. Heart: Regular rate and rhythm. Lungs: Regular respiratory rate with no increased work of breathing. Extremities: 1+ right femoral pulse. Nonpalp right pop or pedal pulses. Right foot - no right foot open tissue loss. Right 2nd toe with non-blanching erythema over DIP joint at site of pressure in shoe. Mild dependant rubor of forefoot present. No gross motor/sensory deficits on exam. Psych: AAOx3 Studies: ABIs: 11/21/17 Right ?Pressure (mm Hg) ?? SOSA ??Waveform ? TBI ?? Brachial Artery ?162 ? Dorsalis Pedis (Ankle) Artery ?67 ?0.41 ??Monophasic ? Posterior Tibial (Ankle) Artery ??69 ?0.43 ??Monophasic ? Great Toe ?37 ?0.23 ?? Left ? Pressure (mm Hg) ?? Brachial Artery ?160 ? Interpretation: RIGHT: Moderately severe lower extremity arterial occlusive disease. No identifiable change when compared to??the previous exam performed on 05/07/2017. LEFT: AKA Impression: Atherosclerotic PAD with right leg claudication S/p left AKA, s/p resection infected LLE bypass graft with left groin wound sartorius muscle flap Recommendations: Ms. Perry has plans to see her master fisher (Dr. Aleman) within the next 2-3 weeks for routine follow up. I have encouraged her to monitor her right 2nd toe to ensure no open tissue lossor signs of infection develop. If these do occur she is unlikely to heal them without revascularization. Hopefully Dr. Aleman can help adjust/fit her shoe to prevent pressure points. She should continue to monitor her right leg closely and contact us if there are any signs of worsening rest pain or any tissue loss. She may continue [...] Component Value Ref Test Analysis Performed At [facility] Range Method Time Signature VB Text Department: Vascular Surgery Lab VASCUBASE Report Patient: [id number] (CARRIE PERRY) CPT: 85995 ICD10: Z89.612;I70.211 Referring Physician: SUZANNE TARANGO M.D. 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
--- OUTSIDE RECORDS SUMMARY | 2022-01-25 00:54 | XMS_ITS | Encounter Summary ---
:1950 Author Organization [facility] [place] [address] Care Team Providers Name Role Phone Gordy Gregg MD Primary Care Provider [phone] Reason for Referral Diagnostic Test (Routine) - New Request Specialty Diagnoses / Procedures Referred By Contact Refer red To Contact Diagnoses Unilateral AKA, left Hope Virk APRN [facility] Vascular Lab 3v Procedures SOSA, legs, multiple levels [facility] [place] [address] [place] [address] Referral ID Status Reason Start Expiration Visits Visits Date Date Requested Authorized [id number] New Request Specialty 11/24/2021 11/24/2022 1 1 Service Requested Encounter Details Date Type Department Care Team Description 11/24/2021 Office Visit Vascular Surgery at Hope Virk, Un ilateral AKA, left [facility] FULL TIME STAFF INTERPRETER [facility] [place] [address] VASCULAR SURGERY [phone] [place], [place] [address] Social History Tobacco Use Types [...] Pulse 55 11/24/2021 10:26 AM EDT Temperature - - Respiratory Rate - - Oxygen Saturation - - Inhaled Oxygen Concentration - - Weight 74.4 kg (164 lb) 11/24/2021 10:26 AM EDT reporte d Height 152.4 cm (5') 11/24/2021 10:26 AM EDT reported Body Mass Index 32.03 11/24/2021 10:26 AM EDT documented in this encounter Progress Notes Hope Virk, FULL TIME STAFF INTERPRETER - 11/24/2021 10:30 AM EDT This patient returned to the vascular clinic today for reevaluation of her PAD. Ms. Hurst is a 71 y/o F with PMH: DMII, HTN, HLD, [...] rubbing of protheses. Denies s/sx of infection. But no tissue loss today. She remains on aspirin, Plavix, and a statin and has never smoked. PMHx: Past Medical History: Diagnosis Date ??? Critical lower limb ischemia 07/23/2015 07/29/2015: Left AKA 07/27/2015: Left groin sartorius flap 07/24/2015: LLGabino christian amp, removal PTFE graft, left groin wound vac placement ??? DM (diabetes mellitus) metformin ??? HLD (hyperlipidemia) 03/24/2015 ??? HTN (hypertension) ??? Hypercholesterolemia ??? PVD (peripheral vascular disease) Medications: Medications 11/24/21 1027 Medication Sig Taking? OneTouch Ultra Blue Test Strip Strip TEST 3 TIMES A DAY Yes hydroCHLOROthiazide (Hydrodiuril) 12.5 mg Tablet TAKE 1 TABLET BY MOUTH DAILY Yes atorvastatin (Lipitor) 40 mg Tablet TAKE 1 TABLET BY MOUTH AT BEDTIME Yes amLODIPine (Norvasc) 5 mg Tablet Take 5 mg by mouth daily. Yes fenofibrate (TRICOR) 54 mg Tablet TAKE ONE TABLET BY MOUTH DAILY Yes Jardiance 10 mg Tablet Take 10 mg by mouth daily. Yes BASAGLAR KAYLEEPEN U-100 INSULIN 100 unit/mL (3 mL) pen inject 20 units subcutaneously at bedtime DISCONTINUE LANTUS Yes clopidogrel (PLAVIX) 75 mg Tablet Take 1 tablet by mouth daily. Yes sertraline (ZOLOFT) 25 mg Tablet Take [...] 1-4 Units subcutaneously every 4 hours. Yes sertraline (ZOLOFT) 50 mg Tablet Take 75 mg by mouth daily. Takes with 25mg Yes aspirin 81 mg Tablet, Delayed Release (E.C.) Take 1 tablet by mouth daily. Yes acetaminophen (TYLENOL) 325 mg Tablet Take 325 mg by mouth every 4 hours as needed for Pain. Yes isosorbide dinitrate (Isordil) 30 mg Tablet Take 30 mg by mouth 4 times daily. isosorbide mononitrate (IMDUR) 30 mg Tablet Sustained Release 24 hr take 1 tablet by mouth once daily oxyCODONE (ROXICODONE) 5 mg Tablet Take 1 tablet by mouth every 4 hours as needed for Pain (mild to moderate pain (1-6)). Patient not taking: No sig reported Allergies: No Known Allergies Physical Exam: Vitals: General: NAD, appears well Neuro: Alert and oriented, motor sensory grossly intact Lungs: CTA Heart: RRR Abd: Soft, NT, ND, no palpable pulsatile masses Extremity - Cle[place], warm, no ulceration, brisk capillary refill, no edema Left groin wound. Vascular: R L Radial 2/2 2/2 DP 0/2 - PT 0/2 - ABIs Right ?Pressure (mm Hg) ?? SOSA ??Waveform ? TBI ?? Brachial Artery ?130 ? Dorsalis Pedis (Ankle) Artery ?62 ?0.48 ??Monophasic ? Posterior Tibial (Ankle) Artery ??65 ?0.50 ??Monophasic ? Great Toe ?36 ?0.28 ? Left ? Pressure (mm Hg) ?? Brachial Artery ?128 ? Dorsalis Pedis (Ankle) Artery ?AKA ? Posterior Tibial (Ankle) Artery ??AKA ? Great Toe ?AKA ? Interpretation: ?? RIGHT: Moderately severe lower extremity arterial occlusive disease. No significant change from previous exam. ?? LEFT: ??AKA ? Assessment/Plan: 71 yo female s/p L AKA 07/2015. SOSA's stable on right, R DP 0.48, R PT 0.50. Toe pressure 36. Denies claudication, rest pain or tissue loss. Continue ASA, Plavix, statin. RTC 12 months with ABIs; or before if problems. documented in this encounter Plan of Treatment Not on filedocumented as of this encounter Visit Diagnoses Diagnosis Unilateral AKA, left documented in this encounter Care Teams Assistive Technology Trainer Relationship Specialty Start Date End Date Gordy Gregg MD PCP - General Family Medicine 05/19/[address] [place] [address] [address] [place] [address] documented as of this encounter
--- OUTSIDE RECORDS SUMMARY | 2022-01-25 00:54 | XMS_ITS | Encounter Summary ---
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 [facility] [place] [id number] [phone] Social History Tobacco Use Types Packs/Day Years Used Date Never Smoker Smokeless Tobacco: Never Used Alcohol Use Standard Drinks/Week Comments No 0 (1 standard drink = 0.6 oz pure alcoho l) Sex Assigned at Date Recorded Not on file documented as of this encounter Last Filed Vital Signs Vital Sign Reading Time Taken Comments Blood Pressure 147/65 12/21/2015 2:29 PM EDT Pulse 77 12/21/2015 2:29 PM EDT Temperature - - Respiratory Rate 18 12/21/2015 2:29 PM EDT Oxygen Saturation - - Inhaled Oxygen Concentration - - Weight 47.6 kg (105 lb) 12/21/2015 2:29 PM EDT Height 152.4 cm (5') 12/21/2015 2:29 PM EDT Body Mass Index 20.51 12/21/2015 2:29 PM EDT documented in this encounter Patient Instructions Patient InstructionsRadha Waller PA - 12/21/2015 4:38 PM EDT Wound care instructions: Discontinue topical ointments to the left groin Wash the left groin wound daily gently with soap and water. Pat dry completely. Cover with dry dressing - may moisten with saline or clean water to remove if adhering to wound. Please monitor wound until complete closure - if not healed within 3 weeks then patient must make a follow up appointment. You may follow up with us for your regular follow up for your ABIs on the right and a repeat visit in February. Please watch for any signs of infection which can include redness, swelling, increasing drainage, warmth to the incisional area, foul odor, and fever or chills. If any of these develop near your wound then please contact the office. documented in this encounter Progress Notes Radha Waller PA - 12/21/2015 4:27 PM EDT This patient returned to the vascular clinic today for reevaluation of her left groin wound. After her last visit in October the patient was followed by the [facility] until the end of the month and then was discontinued from their care and instructed on self care for her left groin wound. She did not notify us that the wound was still open. About a week or more ago she made a follow up visit with herPCP because the wound still had not closed and she was still having some mild drainage from the site. She had noticed a slightly purulent drainage for a few days but denied surroudning erythema, any increase in wound size/depth, fevers/chills, or malodor. She had been instructed to apply a variety of topical ointments since last seen here including bacitracin, silvadene, and a hydrogel. A wound culture was performed by her PCP office which was positive for MRSA and she is currently taking doxycycline. She has had no further discolored drainage and has only scant bloody drainage on the dry gauze that she covers this with daily. Sometimes the gauze sticks and reopens the area. She otherwise is continuing exercises with her right leg and is walking with a walker. She is being fitted for and will receive her left leg prosthesis in the next 2 weeks and then will begin therapy for gait training with it. She denies problems with the right foot/leg - denies claudication, rest pain, or any tissue loss but still notices dependant rubor. PMHx: Past Medical History Diagnosis Date ??? [...] CONDUIT performed by Mariano Doyle MD at [facility] MAIN OR ??? Pro bypass graft vein patch/cuff, synthetic Left 05/26/2015 PLACEMENT VEIN PATCH OR CUFF AT DISTAL ANASTOMOSIS OF BYPASS GRAFT, SYNTHETIC CONDUIT , MICHAEL-COLLAR, RACHELLE-PATCH, ADD-ON CODE, LOWER EXTREMITY performed by Mariano Doyle MD at [facility] MAIN OR ??? Pro thromboendartectmy iliofemoral Left 05/26/2015 @ENDARTERECTOMY, ILIOFEMORAL W OR W/O PATCH GRAFT performed by Mariano Doyle MD at [facility] MAIN OR ??? Pro reoperation, bypass graft Left 05/26/2015 @RE-OP FOR RE-DO LOWER EXTREMITY BYPASS GRAFT, >1 MONTH P\ ORIGINAL SURGERY, ADD-ON CODE performed by Mariano Doyle MD at [facility] MAIN OR ??? Pro amputation low leg, circular Left 07/24/2015 @AMPUTATION, BELOW-KNEE, OPEN, GUILLOTINE performed by Elicia Caal MD at [facility] MAIN OR ??? Pro exploration, femoral artery Left 07/24/2015 @EXPLORATION, W/WO LYSIS, FEMORAL ARTERY W\O SURGICAL REPAIR performed by Elicia Caal MD at [facility] MAIN OR ??? Pro negative pressure wound therapy, less than or equal to 50 sqcm Left 07/24/2015 DRESSING CHANGE (VAC ASSISTED) UP TO 50SQ.CM performed by Elicia Caal MD at [facility] MAIN OR ??? Pro rebl ves direct, low extrem Left 07/24/2015 REPAIR LOWER EXTREMITY BLOOD VESSEL, DIRECT, NO PATCH OR GRAFT performed by Elicia Caal MD at [facility] MAIN OR ??? Pro excision, infec graft, extremity Left 07/24/2015 EXCISION OF INFECTED GRAFT FROM LOWER EXTREMITY performed by Elicia Caal MD at [facility] MAIN OR ??? Pro muscle-skin flap, leg Left 07/27/2015 FLAP, MYOCUTANEOUS OR FASCIOCUTANEOUS, LOWER EXTREMITY performed by Elicia Caal MD at [facility] MAIN OR ? ? Pro debridement subcutaneous tissue 20 sqcm/< Left 07/27/2015 DEBRIDEMENT SKIN AND SUBCU, LOWER EXTREMITY performed by Elicia Caal MD at [facility] MAIN OR ??? Pro dressing change under anesthesia Left 07/29/2015 DRESSING CHANGE (FOR OTHER THAN ESCALANTE) UNDER ANES., LOWER EXTREMITY performed by Elicia Caal MD at [facility] OR ??? Pro amputate thigh, secondry closur Left 07/29/2015 AMPUTATION, ABOVE-KNEE, SECONDARY CLOSURE OR SCAR REVISION performed by Elicia Caal MD at [facility] OR Social Hx: History Substance Use Topics ??? Smoking status: Never Smoker ??? Smokeless tobacco: Never Used ??? Alcohol use: No Medications: Medications 12/21/15 0813 Medication Sig Taking? doxycycline (VIBRA-TABS) 100 mg [...] other ROS negative Physical Exam: Vitals: Vitals: 12/21/15 1429 BP: 147/65 Pulse: 77 Resp: 18 Gen: No acute distress. HEENT: Normocephalic, atraumatic. No scleral icterus. (+) glasses Neck: Supple, no JVD. Heart: Regular rate and rhythm. Lungs: Regular respiratory rate with no increased work of breathing. Extremities: Left groin wound - the only remaining area of open tissue loss is very superficial with less than 0.1 cm depth and only trace bloody drainage was noted with no tunneling or any evidence of a draining sinus. There was no evidence of cellulitis or wound infection on exam today. Right foot - no tissue loss. Mild dependant rubor of forefoot present. No gross motor/sensory deficits on exam. Psych: AAOx3 Impression: left groin wound, s/p left AKA, s/p resection infected LLE bypass graft with left groin wound sartorius muscle flap and VAC placement, atherosclerotic PAD Recommendations: This patient should discontinue any topical ointments to the left groin wound and may simply wash the area once daily with soap and water. She may cover it with dry gauze to protect itand if this adheres she should moisten the gauze with water prior to removing it to prevent further trauma to this area. I have encouraged her to finish her antibiotic to completion and contact me if there are any new signs of infection that arise or any deterioriation fo the area. Otherwise, I expectthis to close quickly with less manipulation of the area. Again, if this is not closed within 2-3 weeks then we must be notified. Her follow up (3 months) is due in early January however because she is asymptomatic on the right she may push this into February if desired to prevent another trip here (pt request). If she develops any rest pain or tissue loss on the right we must be notified. 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
--- OUTSIDE RECORDS SUMMARY | 2022-01-25 00:54 | XMS_ITS | Encounter Summary ---
:1950 Author Organization [place] [address] Care Team Providers Name Role Phone Gordy Gregg MD Primary Care Provider [phone] Encounter Details Date Type Department Care Team Description 11/22/2020 Telephone Vascular Surgery at [facility] [place] [phone] Social History Tobacco Use Types Packs/Day Years Used Date Never Smoker Smokeless Tobacco: Never Used Alcohol Use Standard Drinks/Week Comments No 0 (1 standard drink = 0.6 oz pure alcoho l) Sex Assigned at Date Recorded Not on file documented as of this encounter Miscellaneous Notes Telephone Encounter - Lucero Arce RN - 11/22/2020 2:06 PM EDT AVS faxed per request to Dr. Aleman. documented in this encounter Plan of Treatment Not on filedocumented as of this encounter Visit Diagnoses Not on filedocumented in this encounter Care Teams Field Health Officer Relationship Specialty Start Date End Date Gordy Gregg MD PCP - General Family Medicine 05/19/[address] [place], [place] [id number] documented as of this encounter
--- OUTSIDE RECORDS SUMMARY | 2022-01-25 00:54 | XMS_ITS | Encounter Summary ---
:1950 [place] [address] Care Team Providers Name Role Phone Gordy Gregg MD Primary Care Provider [phone] Encounter Details Date Type Department Care Team Description 05/24/2020 Tech Visit Vascular Lab at [facility], Maureen R, Un ilateral AKA, [place] [address] Social History Tobacco Use Types Packs/Day Years [...] Diagnosis Comme nts SOSA, LEGS, MULTIPLE Routine 05/24/2020 10:30 AM Unilateral AKA , left Results for this LEVELS EST procedure are i n the results section. documented in this encounter Results SOSA, legs, multiple levels (05/24/2020 10:30 AM EST) Component Value Ref Test Analysis Performed At [facility] Range Method Time Signature VB Text Department: Vascular Surgery Lab VASCU[facility] Report Patient: [id number] (CARRIE PERRY) CPT: 95794 ICD10: S78.112A;I77.1 Referring Physician: EVENS VIRK, CORE RESCUER ?? Phone: Indications: ?? F/U PAD, history [...] Laterality 05/24/2020 10:30 AM EST Evens Virk APRN VASCULAR ORDERABLES Performing Organization Address City/State/ZIP Code Phon e Number VASCUBASE documented in this encounter Visit Diagnoses Diagnosis Unilateral AKA, left documented in this encounter Care Teams Presser Cotton Ginning Relationship Specialty Start Date End Date Gordy Gregg MD PCP - General Family Medicine 05/19/[address] [place] [address] documented as of this encounter
--- OUTSIDE RECORDS SUMMARY | 2022-01-25 00:54 | XMS_ITS | Encounter Summary ---
:1950 Author Organization [facility] [place] [address] Care Team Providers Name Role Phone Gordy Gregg MD Primary Care Provider [phone] Reason for Visit Reason Onset Date Comments Appointment 04/14/2018 Encounter Details Date Type Department Care Team Description 04/14/2018 Telephone Vascular Surgery [place] [facility] [place] [address] Social History Tobacco Use Types Packs/Day Years Used Date Never Smoker Smokeless Tobacco: Never Used Alcohol Use Standard Drinks/Week Comments No 0 (1 standard drink = 0.6 oz pure alcoho l) Sex Assigned at Date Recorded Not on file documented as of this encounter Miscellaneous Notes Telephone Encounter - Amanda Cordero - 04/14/2018 10:50 AM EDT YELLOW/PINK/RECALL LIST: recall PROVIDER: Sridhar RECALL: SOSA R/FOOT PAD with claudication 6M FUV REASON FOR VISIT: PAD w/ claudication NOTES: LMOM x1 documented in this encounter Plan of Treatment Not on filedocumented as of this encounter Visit Diagnoses Not on filedocumented in this encounter Care Teams Chip Loft Worker Relationship Specialty Start Date End Date Gordy Gregg MD PCP - General Family Medicine 05/19/[address] [place], [place] [id number] documented as of this encounter
--- OUTSIDE RECORDS SUMMARY | 2022-01-25 00:54 | XMS_ITS | Encounter Summary ---
:1950 Author Organization [facility] [place] [address] Care Team Providers Name Role Phone Gordy Gregg MD Primary Care Provider [phone] Reason for Visit Reason Comments Claudication S/P AKA LEFT LEG AND CLAUDIC ATION ON THE RIGHT Encounter Details Date Type Department Care Team Description 05/08/2016 Office Visit Vascular Surgery at Mariano Doyle MD PAD (peripheral artery [facility] disease) [facility] [address]pos VASCULAR SURGERY [place] [id number] [phone] Social History Tobacco Use Types Packs/Day Years Used Date Never Smoker Smokeless Tobacco: Never Used Alcohol Use Standard Drinks/Week Comments No 0 (1 standard drink = 0.6 oz pure alcoho l) Sex Assigned at Date Recorded Not on file documented as of this encounter Last Filed Vital Signs Vital Sign Reading Time Taken Comments Blood Pressure 164/76 05/08/2016 9:51 AM EDT Pulse 50 05/08/2016 9:51 AM EDT Temperature - - Respiratory Rate 18 05/08/2016 9:51 AM EDT Oxygen Saturation - - Inhaled Oxygen Concentration - - Weight 55.3 kg (122 lb) 05/08/2016 9:51 AM EDT Height 152.4 cm (5') 05/08/2016 9:51 AM EDT Body Mass Index 23.83 05/08/2016 9:51 AM EDT documented in this encounter Progress Notes Mariano Doyle MD - 05/08/2016 10:00 AM EDT Interval History: Ms Perry returns for follow-up of PAD. She is s/p left AKA and has right PAD with stable but low SOSA in the 0.35 range. She does ambulate minimally with an AK prosethesis and does useher right leg for transfers and for assisting in her wheel chair. PMHx: Past Medical History Diagnosis Date ??? [...] CONDUIT performed by Mariano Doyle MD at [facility] OR ??? Pro bypass graft vein patch/cuff, synthetic Left 05/26/2015 PLACEMENT VEIN PATCH OR CUFF AT DISTAL ANASTOMOSIS OF BYPASS GRAFT, SYNTHETIC CONDUIT , RODRIGUEZ-COLLAR, RACHELLE-PATCH, ADD-ON CODE, LOWER EXTREMITY performed by Mariano Doyle MD at [facility] ??? Pro thromboendartectmy iliofemoral Left 05/26/2015 @ENDARTERECTOMY, ILIOFEMORAL W OR W/O PATCH GRAFT performed by Mariano Doyle MD at [facility] ??? Pro reoperation, bypass graft Left 05/26/2015 @RE-OP FOR RE-DO LOWER EXTREMITY BYPASS GRAFT, >1 MONTH P\ ORIGINAL SURGERY, ADD-ON CODE performed by Mariano Doyle MD at [facility] ??? Pro amputation low leg, circular Left 07/24/2015 @AMPUTATION, BELOW-KNEE, OPEN, GUILLOTINE performed by Horace Diaz MD at [facility] ??? Pro exploration, femoral artery Left 07/24/2015 @EXPLORATION, W/WO LYSIS, FEMORAL ARTERY W\O SURGICAL REPAIR performed by Horace Diaz MD at [facility] OR ??? Pro negative pressure wound therapy, less than or equal to 50 sqcm Left 07/24/2015 DRESSING CHANGE (VAC ASSISTED) UP TO 50SQ.CM performed by Horace Diaz MD at [facility] ??? Pro rebl ves direct, low extrem Left 07/24/2015 REPAIR LOWER EXTREMITY BLOOD VESSEL, DIRECT, NO PATCH OR GRAFT performed by Horace Diaz MD at [facility] OR ??? Pro excision, infec graft, extremity Left 07/24/2015 EXCISION OF INFECTED GRAFT FROM LOWER EXTREMITY performed by Horace Diaz MD at [facility] OR ??? Pro muscle-skin flap, leg Left 07/27/2015 FLAP, MYOCUTANEOUS OR FASCIOCUTANEOUS, LOWER EXTREMITY performed by Horace Diaz MD at [facility] OR ? ? Pro debridement subcutaneous tissue 20 sqcm/< Left 07/27/2015 DEBRIDEMENT SKIN AND SUBCU, LOWER EXTREMITY performed by Horace Diaz MD at [facility] OR ??? Pro dressing change under anesthesia Left 07/29/2015 DRESSING CHANGE (FOR OTHER THAN ESCALANTE) UNDER ANES., LOWER EXTREMITY performed by Horace Diaz MD at [facility] OR ??? Pro amputate thigh, secondry closur Left 07/29/2015 AMPUTATION, ABOVE-KNEE, SECONDARY CLOSURE OR SCAR REVISION performed by Horace Diaz MD at [facility] OR Social Hx: Social History Substance Use Topics ??? Smoking status: Never Smoker ??? Smokeless tobacco: Never Used ??? Alcohol use No Medications: Medications 05/08/16 1002 Medication Sig Taking? Magnesium Oxide 250 mg Tablet Take 1-2 tablets by mouth daily. Yes meTOPROLOL succinate (TOPROL-XL) 25 mg Tablet Sustained Release 24 hr Take 1 tablet by mouth daily. Yes doxycycline (VIBRA-TABS) 100 mg Tablet Take 100 [...] Take 50 mg by mouth daily. Yes multivitamin (THERAGRAN) Tablet [...] Allergies: No Known Allergies Physical Exam: Vitals: Vitals: 05/08/16 0951 BP: 164/76 Pulse: 50 Resp: 18 Gen: No acute distress. HEENT: Normocephalic, atraumatic. No scleral icterus. (+) glasses Neck: Supple, no JVD. Heart: Regular rate and rhythm. Lungs: Regular respiratory rate with no increased work of breathing. Extremities: 2+ femoral pulses bilaterally, nonpalp right pop or pedal pulses. Right foot - no tissue loss. Mild dependant rubor of forefoot present. No gross motor/sensory deficits on exam. Psych: AAOx3 Impression: Left AKA healed, right leg with borderline CLI. No overt rest pain or tissue loss, but SOSA critically low. Will monitor closely q3 months in clinic with SOSA and toe pressures. Will obtain vein mapping at next visit. Should she require revasc she will require fem-bk pop or peroneal bypass. I have dicussed meticulous foot care, and risk factor modification of her diabetes and cholesterol. documented in this encounter Miscellaneous Notes Addendum Note - Calvin Sawant RN - 05/09/2016 10:14 AM EDT Addended by: CALVIN SAWANT on: 05/09/2016 10:14 AM Modules accepted: Orders documented in this encounter Plan of Treatment Not on filedocumented as of this encounter Results Vein Map Leg, Unilat (08/10/2016 9:50 AM EST) Component Value Ref Test Analysis Performed At [facility] Range Method Time Signature VB Text Department: Vascular Surgery Lab VASCU[facility] Report Patient: [id number] (CARRIE PERRY) CPT: 47603 ICD10: I73.9;I70.211 Referring Physician: MARIANO DOYLE ?? Indications: Right LE PVD w/CLI, [...] / Volume Laterality 08/10/2016 9:50 AM EST Mariano Doyle MD VASCULAR ORDERABLES Performing Organization Address City/State/ZIP Code Phon e Number VASCUBASE SOSA, legs, multiple levels (08/10/2016 9:50 AM EST) Component Value Ref Test Analysis Performed At [facility] Range Method Time Signature VB Text Department: Vascular Surgery Lab VASCUBASE Report Patient: [id number] (CARRIE PERRY) CPT: 80271-70 ICD10: I70.211;I73.9 Referring Physician: MARIANO DOYLE ?? Indications: Right LE claudication w/CLI, hx lef t AKA, ? peripheral perfusion change Diabetes mellitus: Yes ICD10 Diagnosis Code: I70.211, I73.9 Findings: Right ?Pressure (mm Hg) ?? SOAS ??Waveform ? TBI ?? Brachial Artery ?150 [...] / Volume Laterality 08/10/2016 9:50 AM EST Mariano Doyle MD VASCULAR ORDERABLES Performing Organization Address City/State/ZIP Code Phon e Number [facility] documented in this encounter Visit Diagnoses Diagnosis PAD (peripheral artery disease) Peripheral vascular disease, unspecified documented in this encounter Care Teams Manager In Training Relationship Specialty Start Date End Date Gordy Gregg MD PCP - General Family Medicine 05/19/[address] [place] [address] documented as of this encounter
--- OUTSIDE RECORDS SUMMARY | 2022-01-25 00:55 | XMS_ITS | Encounter Summary ---
:1950 [place] [address] Care Team Providers Name Role Phone Gordy Gregg MD Primary Care Provider [phone] Reason for Visit Auth/Cert - Closed Specialty Diagnoses / Procedures Referred By Contact Refer red To Contact Diagnoses NSTEMI (non-ST elevated myocardial infarction) NSTEMI Procedures IPI Referral ID Status Reason Start Date Expiration Date Visits Requ ested Visits Authorized [id number] Closed 1 1 Encounter Details Date Type Department Care Team Description 08/11/2015 Hospital Encounter Non-Invasive Cardiology Baudilio Bassett, Lab Haley Shoemaker MD [facility] [address] [address] [place] [address] [phone] (Wo rk) Social History Tobacco Use Types Packs/Day Years Used Date Never Smoker Smokeless Tobacco: Never Used Alcohol Use Standard Drinks/Week Comments No 0 (1 standard drink = 0.6 oz pure alcoho l) Sex Assigned at Date Recorded Not on file documented as of this encounter Medications at Time of Discharge Medication Sig Dispensed Refills Start Date End Date lisinopril Take 1 tablet by mouth 30 [...] for Pain (mild to moderate pain (1-6)). clopidogrel (PLAVIX) Take 1 tablet by mouth [...] encounter Procedures Procedure Name Priority Date/Time Associated Comments Diagnosis ECHOCARDIOGRAM COMPLETE Routine 08/11/2015 12:02 Non-ST elevat ion Results for this W CONTRAST PM EST myocardial procedure are i n infarction the results (NSTEMI) section. documented in this encounter Visit Diagnoses Not on filedocumented in this encounter Administered Medications Inactive Administered Medications - up to 3 most recent administrations Medication Order MAR Action Action Date Dose Rate Site perflutren lipid microspheres Given 08/11/2015 11:44 AM EST 0.5 mLs (DEFINITY) injection 0.5 mL 0.5 mL, Intravenous, ONCE PRN, 1 dose, Starting on Yadira 08/11/15 at 1203, Until Yadira 08/11/15 at 1144, Other, for enhancement of sub-optimal echo images, Echo Lab (Intra-Procedure), Routine documented in this encounter Care Teams Director Of Logistics Relationship Specialty Start Date End Date Gordy Gregg MD PCP - General Family Medicine 05/19/[address] [place] [address] documented as of this encounter
--- OUTSIDE RECORDS SUMMARY | 2022-01-25 00:55 | XMS_ITS | Encounter Summary ---
:1950 Author Organization [facility] Address [address] [place] [id number] Care Team Providers Name Role Phone Gordy Moon MD Primary Care Provider [phone] Reason for Referral Consultation (Routine) - Duplicate Referral Specialty Diagnoses / Procedures Referred By Contact Refer red To Contact Infectious Diseases Diagnoses Mycotic aneurysm Critical lower limb ischemia Dontrell Mock MD [place], [facility] Tre Camara MD CARDIOLOGY DEPT. [facility] [place] [address] [place] [address] [place] [address] Phone: Fax: Referral ID Status Reason Start Expiration Visits Visits Date Date Requested Authorized [id number] Duplicate Assume 08/12/2015 08/11/2016 1 1 Referral Subset of Care Reason for Visit Auth/Cert - Closed Specialty Diagnoses / Procedures Referred By Contact Refer red To Contact Diagnoses NSTEMI (non-ST elevated myocardial infarction) NSTEMI Procedures IPI Referral ID Status Reason Start Date Expiration Date Visits Requ ested Visits Authorized [id number] Closed 1 1 Encounter Details Date Type Department Care Team Description 08/10/2015 - Hospital Encounter Cardiac Special Dee Bassett MD [facility] [place] [address] Non-ST elevation myocardial infarction ( NSTEMI); 08/13/2015 Care Unit Dontrell May MD [facility] [place] [address] Mycotic aneurysm; [facility] Critical lower limb ischemia [facility] [place] [id number] Social History Tobacco Use Types Packs/Day Years Used Date Never Smoker Smokeless Tobacco: Never Used Alcohol Use Standard Drinks/Week Comments No 0 (1 standard drink = 0.6 oz pure alcoho l) Sex Assigned at Date Recorded Not on file documented as of this encounter Last Filed Vital Signs Vital Sign Reading Time Taken Comments Blood Pressure 152/103 08/13/2015 8:30 AM EST Pulse 90 08/13/2015 8:30 AM EST Temperature 36.8 ??C (98.2 ??F) 08/13/2015 8:30 AM EST Respiratory Rate 18 08/13/2015 8:30 AM EST Oxygen Saturation 95% 08/13/2015 8:30 AM EST Inhaled Oxygen Concentration - - Weight 41.8 kg (92 lb 3.2 oz) 08/13/2015 6:41 AM EST Height 152.4 cm (5') 08/10/2015 8:16 PM EST Body Mass Index 18.01 08/10/2015 8:16 PM EST documented in this encounter Discharge Summaries Baudilio Bassett MD - 08/12/2015 10:58 AM EST Discharge Summary Patient Name: Carrie Hurst Patient Age: 64 y.o. Language: Danish Race: White Ethnicity: Not nor Admit date: 08/10/2015 Discharge date and time: 08/12/15 Attending Physician: Dontrell Mock MD Discharge Physician: Dr. Bassett Follow-up Recommendations for Providers: Patient to remain on asa 81 mg PO daily and Plavix 75 mg PO daily for at least one year (DEEPTHI placed) Antibiotic is now daily and not every other day, to be completed 08/21/15 per OPAT orders Inpatient Provider Contact Information: Cardiology Clinic can be reached at [phone] Discharge Diagnoses (Hospital Problems) and Secondary Diagnoses (Chronic Problems): Active Hospital Problems Diagnosis ??? NSTEMI (non-ST elevated myocardial infarction) Resolved Hospital Problems Diagnosis Date Resolved No resolved problems to display. Active Non-Hospital Problems Diagnosis ??? HLD (hyperlipidemia) ??? DMII (diabetes mellitus, type 2) ??? Hypercholesterolemia ??? Hypertension Operations/Major Procedures: Echocardiogram 08/11/15 1. Left ventricular chamber size and wall thickness are normal. Global left ventricular systolic function is severely reduced with an estimated ejection fraction of 30%. There are left ventricular segmental wall motion abnormalities present, as shown in the diagram below. ?? 2. The right ventricle is normal in size. Right ventricular global systolic function is probably normal. The estimated pulmonary artery systolic pressure is 42 mmHg. 3. The mitral valve leaflets are mildly thickened with incomplete coaptation. There is central jet of moderate (2+/4+) functional mitral regurgitation present. 4. Bilateral pleural effusions are present. 5. See remainder of report for additional details. 6. Compared to prior TTE of March 2015, LV function is worse and there are new RWMA's. Mitral regurgitation is slightly worse. Procedure(s) with comments: CARDIAC CATHETERIZATION - Procedure: Coronary Angiography 08/11/15 Conclusions:? * Two vessel coronary artery disease (LCX and RCA)? * Successful stent insertion of the mid 2 LPL1 lesion? * Successful stent insertion of the mid 1 LPL1 lesion? * Successful angioplasty of the distal LCX lesion? * LVEDP 10? History of Presentation: is a 64 y.o. old female who is transferred to [facility] from [facility] for further management of NSTEMI with moderate systolic dysfunction leading to pulmonary edema. Pt was admitted there on 08/08/15 from rehab center. 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 She did fine for 4 days and suddenly developed severe shortness of breath and chest pain and was transferred to [facility] and was diagnosed with acute AK and pulmonary edema. She was diuresed with IV lasix and BiPAP and was maintained IV heparin and Plavix and initially the family opted for medical management but changed their mind today and is transferred here for consideration for cardiac catheterization. At the time of transfer, she was taken off of lasix to keep creatinine at a reasonable level to facilitate cath. Apparently two units of pRBC was transfused for anemia and her hct is 33 this morning. She has a groin wound which has wound vacuum device a pplied and was on ceftazidime and vancomycin when she was here but was switched to Daptomycin and she received it prior to being transferred here. Currently, she reports very minimal shortness of breath. Her major complaint is the stump pain. She reports severe weakness and fatigue. She denies chest pain or chest tightness. She denies nausea, vomiting or cough or fever or chills. She denies palpitations. She reports being very anxious about all the procedures that she has to go through. She told me that, she just wants to get out of the hospital, but was also scared to when she had that shortness of breath two days ago. She did confirmthat she does not want to be intubated or resuscitated if it comes to that.?? From cardiac stand point, she had a stress echocardiogram in mar 2015 that was positive for inferior ischemia. She was managed medically and she went ahead with all the surgical interventions on the leg since then. She had a total of 5 interventions since then ranging from wound debridements to foot amputation and then below knee followed by above knee amputations. Stress Echo from Mar 2015: 1. BASELINE: The left ventricle is probably normal in size. There is normal global left ventricular systolic function. The visually estimated left ventricular ejection fraction is 65%. The?? basal inferoseptal wall segment is akinetic (score 3). The?? basal inferior wall segment is hypokinetic (score 2). Right ventricular chamber size, wall thickness, and systolic function are within normal limits. The estimated pulmonary artery systolic pressure is 25 mmHg. Focal aortic leaflet calcification is visualized. There is no evidence of aortic valve stenosis. There is no evidence of aortic regurgitation. The mitral valve leaflets are mildly thickened. There is mild to moderate (1-2+/4+) mitral regurgitation present. EKG: normal sinus rhythm, premature ventricular contractions noted. ?? 2. DOBUTAMINE STRESS: The patient achieved a maximum heart rate of 144 (85% of predicted maximum). The patient did not express feelings of chest discomfort. The patient felt nauseous and?? light-headed. There were frequent ventricular premature beats. There were 1.[address] segment depression in the lead V2 and [address] elevations in inferolateral leads. ?? 3. CONCLUSION: Evidence for basal inferior/inferoseptal infarction and stress inducible ischemia in the apex and apical lateral wall (with technically difficult imaging). ?? Hospital Course: Acute NSTEMI Patient was admitted to [facility] and placed on telemetry monitoring. She was continued on asa, Plavix and metoprolol. ?? Cardiac catheterization and Echocardiogram were done 08/11/15. She was found to have a decreased LVEF of 30-35% and underwent a stent to LCX (DEEPTHI). Patient to remain on asa 81 mg PO daily and plavix 75 mg PO daily for one year at least. Plan [facility].She is no longer in heart failure clinically and her MR is not severe. Heart Failure, LVEF is 40% per [facility] report Repeat Echocardiogram here shows LVEF of 40%. Lisinopril is new. Currently she appears euvolemic. Nolasix daily at this time. ??Was started on Lisinopril due to LVEF of 40%. Left wound: ?? s/p wound vacuum device. Wound team saw her and the ID team saw her. She is now on Daptomycin 500 mgIV Q24H.??Her last dose was at 3 pm on 08/12/15. As per their notes, per ID, she is supposed to be on it till 08/21/15. Please see OPAT note. Type 2 Diabetes: Continue lantus and sliding scale. BG is 160. Continue to follow sugars QID at rehab. Chronic Kidney Disease: Stable with creatinine of 1.29. ??Avoid nephrotoxic agents. Blood Loss Anemia: She was given 2 units of pRBC at [facility] and her hct is 33. She likely had post op blood loss. Stage 2 Coccygeal decubitus ulcer: Wound care consult and supportive care. Appreciate help from wound care team. Full Code Functional and Cognitive Status: stable Important Studies and Lab Data: Labs: Lab Results Component Value Date WBC 9.0 08/13/2015 HGB 12.5 08/13/2015 HCT 38.2 08/13/2015 PLATELET 395* 08/13/2015 No results for input(s): INR in the last 168 hours. Lab Results Component Value Date NA 139 08/12/2015 K 3.7 08/12/2015 CL 100 08/12/2015 CO2 27 08/12/2015 BUN 17 08/12/2015 CREATININE 0.98 08/12/2015 Recent Labs 07/28/15 0737 TSH 0.98 No results for input(s): HA1C in the last 7068 hours. Recent Labs 08/12/15 0440 08/11/15 2054 08/11/15 0620 CK 24 26 35 TROPONINT 0.83* 0.68* 0.64* 0.63* Discharge Conditions/Prognosis: stable Discharge to: rehab in [place] Updated Allergies/ADRs: No Known Allergies Immunizations Given this Hospitalization: There is no immunization history on file for this patient. Discharge Medications: Your Medications New Medications Dose Details clopidogrel 75 mg Tab Commonly known as: PLAVIX Take 1 tablet by mouth daily. 75 mg Quantity: 30 tablet Refills: 11 lisinopril 5 mg Tab Commonly known as: PRINIVIL;ZESTRIL Take 1 tablet by mouth daily. 5 mg Quantity: 30 tablet Refills: 12 LORazepam 0.5 mg Tab Commonly known as: ATIVAN Take 1 tablet by mouth every 6 hours as needed for Anxiety. 0.5 mg Quantity: 30 tablet Refills: 0 nitroGLYcerin 0.4 mg Subl Commonly known as: NITROSTAT Place 1 tablet under the tongue every 5 minutes as needed for Chest pain. 0.4 mg Quantity: 25 tablet Refills: 3 pantoprazole 40 mg Tbec Commonly known as: PROTONIX Take 1 tablet by mouth daily. 40 mg Quantity: 90 tablet Refills: 3 Continued medications, unchanged Dose Details acetaminophen 325 mg Tab Commonly known as: TYLENOL Take 325 mg by mouth every 4 hours as needed for Pain. 325 mg Refills: 0 aspirin 81 mg Tbec Take 1 tablet by mouth daily. 81 mg Quantity: 30 tablet Refills: 3 gabapentin 300 mg Cap Commonly known as: NEURONTIN Take 2 capsules by mouth 2 times daily. Indications: Neuropathic Pain 600 mg Quantity: 90 capsule Refills: 12 insulin aspart Soln Commonly known as: NovoLOG Inject 1-4 Units subcutaneously every 4 hours. 1-4 Units Quantity: 10 mL Refills: 12 meTOPROLOL succinate 25 mg Tablet sr Commonly known as: TOPROL-XL Take 1 tablet by mouth daily. 25 mg Quantity: 30 tablet Refills: 12 multivitamin Tab Commonly known as: THERAGRAN Take 1 tablet by mouth daily. 1 tablet Refills: 0 oxyCODONE 5 mg Tab Commonly known as: ROXICODONE Take 1 tablet by mouth every 4 hours as needed for Pain (mild to moderate pain (1-6)). 5 mg Quantity: 30 tablet Refills: 0 sertraline 50 mg Tab Commonly known as: ZOLOFT Take 50 mg by mouth daily. 50 mg Refills: 0 simvastatin 20 mg Tab Commonly known as: ZOCOR Take 20 mg by mouth nightly. 20 mg Refills: 0 Smoking Status at Discharge: History Smoking status ??? Never Smoker Smokeless tobacco ??? Never Used Instructions Given to Patient at Discharge: There are no Patient Instructions on file for this visit. General Instructions Patient is going to rehab in [facility]. Please see other section for appointments and OPAT directions. Future Appointments and Orders Future Appointments Provider Department Dept Phone 08/17/2015 3:00 PM Radha Waller PA Vascular Surgery [phone] 08/17/2015 4:00 PM Maria Hernandez MD; Donya Awad MD Nephrology [phone] Future Orders Complete By Expires OPAT: Order / Recommendation for Post Discharge IV Antibiotic Management [YNS220 CPT(R)] As directed Process Instructions: If no progress note charted, please enter Clinical details in comments. Scheduling Instructions: Comments: Please Fax all results to: OPAT Program Infectious Disease Section [facility], [place] [address] FAX: Line care instructions per [facility] OPAT Program protocol. After hours, please contact the Infectious Disease Physician account resolution specialist at . If this order was signed greater than 72 hours prior to [facility] discharge, please call to confirm the accuracy of this order. Questions: ID Diagnosis: Mycotic Aneurysm, Infected Left Femoral Graft; LLE Ischemia S/P AKA Microorganisms being treated: MRSA Antibiotic Allergies: NKA Antibiotic (one line for each ABx): Daptomycin 355 mg IV q24h Start date: 07/24/2015 Anticipated stop date: 08/21/2015 Labs: Every Saturday: CBC, CMP Comment - CK Q Saturday Last documented weight (kg): 45.314 kg (99 lb 14.4 oz) Last documented height (cm): 152.4 cm (5') Responsible Attending: Hoa Felipe MD Discharge References/Attachments HEART ATTACK (IRISH) PCI (PERCUTANEOUS CORONARY INTERVENTION) : PRE-OP (IRISH) documented in this encounter Discharge Instructions Discharge InstructionsBree Enciso PA - 08/13/2015 9:50 AM EST Patient is going to rehab in [facility]. Please see other section for appointments and OPAT directions. AttachmentsThe following attachments cannot be sent through Care Everywhere. HEART ATTACK (IRISH)PCI (PERCUTANEOUS CORONARY INTERVENTION) : PRE-OP (IRISH)documented in this encounter Medications at Time of Discharge [...] Tablet nightly. documented as of this encounter Progress Notes Dontrell Mock MD - 08/13/2015 9:55 AM EST Inpatient Cardiology Progress Note Patient Name: Carrie Hurst Service: STAVE GRADER / PA Responsible Attending: No att. providers found Reason for continued hospitalization: Transfer to rehab today Active Problems: Active Hospital Problems Diagnosis ??? Acute systolic congestive heart failure Patient now has an LVEF of 30% No lasix at the time of discharge Patient may need lasix again in the future ??? NSTEMI (non-ST elevated myocardial infarction) Resolved Hospital Problems Diagnosis Date Resolved No resolved problems to display. Interval History: Patient feels well today. Plan is for her to return to rehab in [place]. Review of Systems: Review of Systems Constitutional: Negative for chills, diaphoresis and fatigue. HENT: Negative for drooling, ear pain and nosebleeds. Respiratory: Positive for chest tightness and shortness of breath. Cardiovascular: Negative for palpitations and leg swelling. Gastrointestinal: Negative for abdominal distention. Endocrine: Negative for cold intolerance and heat intolerance. Genitourinary: Negative for dysuria and hematuria. Neurological: Negative for dizziness and numbness. Hematological: Negative for adenopathy. Telemetry: HR: 88 sinus rhythm Meds: Scheduled Meds: Continuous Infusions: PRN Meds: Physical Exam: Vital Signs: Last value Range last 24 hrs Temperature Temp: 36.8 ??C (98.2 ??F) Heart Rate Heart Rate: 90 Heart Rate: -- Blood Pressure BP: (!) 152/103 mmHg BP: -- Respiratory Rate Resp: 18 Resp: -- SpO2 SpO2: 95 % SpO2: -- Physical Exam Constitutional: She appears well-developed and well-nourished. No distress. HENT: Head: Normocephalic and atraumatic. Eyes: No scleral icterus. Neck: No JVD present. Cardiovascular: Normal rate and regular rhythm. Exam reveals no gallop and no friction rub. No murmur heard. Pulmonary/Chest: No respiratory distress. She has no wheezes. She has no rales. Abdominal: She exhibits no distension. There is no tenderness. Musculoskeletal: She exhibits no edema. Neurological: She is alert. Skin: Skin is warm and dry. She is not diaphoretic. No erythema. Left AKA incision is clean, dry, and intact. Patient is moving stump freely. Psychiatric: She has a normal mood and affect. She seems depressed and has somewhat of a flat affect. Lab Comments: Recent Labs 08/13/15 0333 08/12/15 0440 08/11/15 0620 WBC 9.0 8.4 9.7 HGB 12.5 11.3 11.5 HCT 38.2 35.0 34.5 PLATELET 395* 334 359 No results for input(s): INR in the last 168 hours. Recent Labs 08/12/15 0440 08/11/15 0620 08/10/15 2330 NA 139 138 136 K 3.7 3.9 3.4* CL 100 96* 93* CO2 27 Not Perf 27 BUN 17 22* 26* CREATININE 0.98 1.11 1.16 Recent Labs 08/10/15 2330 AST 22 ALT 37* ALKPHOS 337* BILITOT 0.5 BILIDIR 0.1 Recent Labs 08/12/15 0440 08/11/15 0620 08/10/15 2330 CALCIUM 8.2* 7.8* 7.8* MAGNESIUM -- 0.85 0.52* Recent Labs 08/12/15 0440 08/11/15 2054 08/11/15 0620 CK 24 26 35 TROPONINT 0.83* 0.68* 0.64* 0.63* Pertinent Radiographic/Diagnostic Results: Cardiac Cath: ECHO: Assessment: Carrie Hurst is a 64 y.o. female with a recent discharge from the vascular service 08/03/15 who presents from [facility] rehab with a NSTEMI and HF. She had t wave inversions in the anterior territory seen on her EKG. Her Echocardiogram now shows LVEF of 40% (was 65%). She was transfused 2 Units and now has a HCT of 33. She had a DSE 03/16/15 showing inferior/inferior septal infarction and stress inducible ischemia in the apex and apical lateral wall. At that time she did not have a cath as she needed to go urgently to the OR. She is s/p left AKA, left groin sartorius flap, left groin wound VAC placement. Hospital course complicated by PANDA. Hx of Dyslipidemia, DM, HTN, and PAD. Patient has been through a lot and seems to be depressed. She is stable s/p PCI of LCX. Plan: 1. Acute NSTEMI Continue telemetry monitoring Continue aspirin, Plavix and metoprolol. ??lisinopril is new. Cardiac catheterization and Echocardiogram done 08/11/15 ( LVEF 35% and stent to LCX) Plan is to transfer her back to [facility] rehab today 2. Acute systolic Heart Failure, LVEF is 40% per [facility] report Repeat Echocardiogram here shows LVEF of 30 Currently she appears euvolemic. Was started on Lisinopril due to LVEF of 30%. No daily lasix at this time Rehab may need to restart lasix at later date 3. Left groin Wound: ?? s/p wound vacuum device Continue on Daptomycin 500 mg IV every 24 hours Her last dose was at 3:00 PM on 08/12/15. As per their notes, per ID, she is supposed to be on it till 08/21/15 ID consult appreciated with Haley Felipe MD 4. Type 2 Diabetes: Continue lantus and sliding scale. BG is 160 5. Chronic Kidney Disease: Stable with creatinine of 1.29. Avoid nephrotoxic agents. 6. Blood Loss Anemia: She was given 2 units of pRBC at [facility] and her hct is 33. She likely had post op blood loss. 7. Stage 2 Coccygeal decubitus ulcer: Wound care consult and supportive care. Appreciate help from wound care team. 8. Full Code Patient seen and discussed with Dr. Mock. GAIL HARRINGTON 08/16/2015 Pager [phone] Cardiology Staff Addendum I have discussed, reviewed and agree with the documented interval history, Physical findings, Assessment and Plan of care. I have independently interviewed and examined the patient myself and have no additions to the interval history, physical, assessment or plan of care. Erica Leblanc 08/12/2015 3:31 PM EST Office of Care Management/Windshield Repair Technician Patient Name: Carrie Hurst : 1950 Patient has been offered a Swing bed at [facility]. A wheel chair van is scheduled for 10:00 AM. No MD to MD report necessary Please call Nursing Report to [phone], ask for dressing machine operator. Info to accompany patient: Narcotic Prescriptions Copies of Medication Administration Records and IV sheets for past 10 days. Plan: Windshield Repair Technician will be available to the patient and CRC for further assistance. Patient will be discharged to: [place] [id number] [place] [phone] Erica Andres Windshield Repair Technician Nguyen Sol, PT - 08/12/2015 3:02 PM EST PT NOTE Call received from nursing. Pt not leaving for rehab until tomorrow. Came to see pt but sitting on acommode and doing ADLs with RIBBON CLEANER. Returned again. Now pt is back in bed fatigued from increased activity this afternoon. RIBBON CLEANER stating that pt did transfers, commode to and from bed with walker and min assist.. Pt laying on her left side not wanting to do any PT this PM due to fatigue. Discussed sitting EOB for dinner. She agreed and will continue to use the bedside commode, not the bed mathews. Dc to rehabtomorrow for ongoing therapies. Estrellita Wise DT - 08/12/2015 2:58 PM EST Nutrition Services - Initial Note Carrie Hurst : 1950 AGE: 64 y.o. Patient Active Problem List Diagnosis Date Noted ??? Hospital-NSTEMI (non-ST elevated myocardial infarction) 08/10/2015 ??? Hospital-Critical lower limb ischemia 07/23/2015 ??? HLD (hyperlipidemia) 03/24/2015 ??? Hospital-Claudication 03/16/2015 ??? Iucbfixh-Nsh-cwwrqrp ulcer of foot 03/16/2015 ??? DMII (diabetes mellitus, type 2) 03/16/2015 ??? Hypercholesterolemia 03/16/2015 ??? Hypertension 03/16/2015 ??? Hospital-PAD (peripheral artery disease) 03/16/2015 Reason for Nutrition Intervention: Diet Order Diet Order: [facility], Na2 Appetite: Fair not too bad Food allergies: NKFA Ht Readings from Last 3 Encounters: 08/10/15 152.4 cm (5') 07/24/15 152.4 cm (5') 07/19/15 152.4 cm (5') Wt Readings from Last 3 Encounters: 08/12/15 45.314 kg (99 lb 14.4 oz) 07/27/15 59 kg (130 lb 1.1 oz) 07/19/15 46.72 kg (103 lb) Body mass index is 19.51 kg/(m^2). Assessment: Patient denies need for nutrition education due to multiple low sodium educations. She reported a fair appetite without difficulty chewing or swallowing. She stated that she is a fussy eater and this it contributed to her decreased intake. She does not add salt to foods or eat many processed foods. She has snacks on her tray stand and denied need for others. Suggest CHO2 added onto diet order due to PMH of DM. Encouraged patient to contact Food and Nutrition services with any questions that may arise. Nutrition Plan: Suggest adding on CHO 2 diet restriction. Monitor weight. Encourage good po intake. Support and encouragement provided. Nutrition services to follow weekly thru hospital course unless consulted in the interim. MIMI Jenkins Nguyen Flor, PT - 08/12/2015 12:22 PM EST PT NOTE PT consult received. Met with pt and reviewed the chart. Pt is going back to rehab today. Pt denied need for PT evaluation here. She hopes to go back via van and feels this alone will challenge her balance. Pt s/p BKA 07/29/15, and now with NSTEMI treated with PCI to LCX. Will follow if pt does not actually dc. Dontrell Mock MD - 08/12/2015 10:50 AM EST Inpatient Cardiology Progress Note Patient Name: Carrie Hurst Service: STAVE GRADER / PA Responsible Attending: Dontrell Mock MD Reason for continued hospitalization: Transfer to rehab today Active Problems: Active Hospital Problems Diagnosis ??? NSTEMI (non-ST elevated myocardial infarction) Resolved Hospital Problems Diagnosis Date Resolved No resolved problems to display. Interval History: Patient feels well today. Plan is for her to return to rehab in [place]. Review of Systems: Review of Systems Constitutional: Negative for chills, diaphoresis and fatigue. HENT: Negative for drooling, ear pain and nosebleeds. Respiratory: Positive for chest tightness and shortness of breath. Cardiovascular: Negative for palpitations and leg swelling. Gastrointestinal: Negative for abdominal distention. Endocrine: Negative for cold intolerance and heat intolerance. Genitourinary: Negative for dysuria and hematuria. Neurological: Negative for dizziness and numbness. Hematological: Negative for adenopathy. Telemetry: HR: 88 sinus rhythm Meds: Scheduled Meds: ??? DAPTOmycin 6 mg/kg/dose Intravenous Q48H ??? aspirin 81 mg Oral Daily ??? gabapentin 600 mg Oral BID ??? meTOPROLOL succinate 25 mg Oral Daily ??? simvastatin 20 mg Oral Nightly ??? sertraline 50 mg Oral Daily ??? sodium chloride 0.9 % 5 mL Intravenous BID ??? insulin aspart 1-4 Units Subcutaneous Q4H MICHAEL ??? insulin glargine 15 Units Subcutaneous Nightly ??? pantoprazole 40 mg Oral Daily ??? clopidogrel 75 mg Oral Daily ??? lisinopril 5 mg Oral Daily Continuous Infusions: ??? heparin 950 Units/hr (08/11/15 0742) PRN Meds:heparin (porcine), acetaminophen, oxyCODONE, sodium chloride 0.9 %, lidocaine, nitroGLYcerin, dextrose 50% OR glucagon (human recombinant), LORazepam, ondansetron, morphine Physical Exam: Vital Signs: Last value Range last 24 hrs Temperature Temp: 36.6 ??C (97.9 ??F) Temp: [36.2 ??C (97.2 ??F)-36.8 ??C (98.2 ??F)] Heart Rate Heart Rate: 80 Heart Rate: [75-89] Blood Pressure BP: 133/87 mmHg BP: (121-156)/(64-92) Respiratory Rate Resp: 16 Resp: [16-23] SpO2 SpO2: 94 % SpO2: [93 %-100 %] Physical Exam Constitutional: She appears well-developed and well-nourished. No distress. HENT: Head: Normocephalic and atraumatic. Eyes: No scleral icterus. Neck: No JVD present. Cardiovascular: Normal rate and regular rhythm. Exam reveals no gallop and no friction rub. No murmur heard. Pulmonary/Chest: No respiratory distress. She has no wheezes. She has no rales. Abdominal: She exhibits no distension. There is no tenderness. Musculoskeletal: She exhibits no edema. Neurological: She is alert. Skin: Skin is warm and dry. She is not diaphoretic. No erythema. Left AKA incision is clean, dry, and intact. Patient is moving stump freely. Psychiatric: She has a normal mood and affect. She seems depressed and has somewhat of a flat affect. Lab Comments: Recent Labs 08/12/1543908/11/1561908/10/152038 WBC 8.4 9.7 10.6* HGB 11.3 11.5 12.0 HCT 35.0 34.5 35.0 PLATELET 334 359 369 No results for input(s): INR in the last 168 hours. Recent Labs 08/12/1543908/11/1561908/10/15 2330 NA 139 138 136 K 3.7 3.9 3.4* CL 100 96* 93* CO2 27 Not Perf 27 BUN 17 22* 26* CREATININE 0.98 1.11 1.16 Recent Labs 08/10/15 2330 AST 22 ALT 37* ALKPHOS 337* BILITOT 0.5 BILIDIR 0.1 Recent Labs 08/12/1543908/11/15 0620 08/10/15 2330 CALCIUM 8.2* 7.8* 7.8* MAGNESIUM -- 0.85 0.52* Recent Labs 08/12/1543908/11/15205308/11/15 06 CK 24 26 35 TROPONINT 0.83* 0.68* 0.64* 0.63* Pertinent Radiographic/Diagnostic Results: Cardiac Cath: ECHO: Assessment: Carrie Hurst is a 64 y.o. female with a recent discharge from the vascular service 08/03/15 who presents from [facility] rehab with a NSTEMI and HF. She had t wave inversions in the anterior territory seen on her EKG. Her Echocardiogram now shows LVEF of 40% (was 65%). She was transfused 2 Units and now has a HCT of 33. She had a DSE 03/16/15 showing inferior/inferior septal infarction and stress inducible ischemia in the apex and apical lateral wall. At that time she did not have a cath as she needed to go urgently to the OR. She is s/p left AKA, left groin sartorius flap, left groin wound VAC placement. Hospital course complicated by PANDA. Hx of Dyslipidemia, DM, HTN, and PAD. Patient has been through a lot and seems to be depressed. She is stable s/p PCI of LCX. Plan: 1. Acute NSTEMI Continue telemetry monitoring Continue aspirin, Plavix and metoprolol. ?? Cardiac catheterization and Echocardiogram done yesterday ( LVEF 35% and stent to LCX) Plan is to transfer her back to [facility] rehab today 2. Heart Failure, LVEF is 40% per [facility] report Repeat Echocardiogram here Currently she appears euvolemic. Was started on Lisinopril due to LVEF of 40%. 3. Left groin Wound: ?? s/p wound vacuum device Continue on Daptomycin 500 mg IV Q48H. Her last dose was at 5:00 PM on 08/10/15. As per their notes, per ID, she is supposed to be on it till 08/21/15 ID consult today prior to D/C - spoke with Haley Felipe MD 4. Type 2 Diabetes: Continue lantus and sliding scale. BG is 160 5. Chronic Kidney Disease: Stable with creatinine of 1.29. Avoid nephrotoxic agents. 6. Blood Loss Anemia: She was given 2 units of pRBC at [facility] and her hct is 33. She likely had post op blood loss. 7. Stage 2 Coccygeal decubitus ulcer: Wound care consult and supportive care. Appreciate help from wound care team. 8. Full Code Patient seen and discussed with Dr. Mock. GAIL HARRINGTON 08/12/2015 Pager [phone] Cardiology Staff Addendum I have discussed, reviewed and agree with the documented interval history, Physical findings, Assessment and Plan of care. I have independently interviewed and examined the patient myself and have no additions to the interval history, physical, assessment or plan of care. Kelsi Baltazar RN - 08/12/2015 9:54 AM EST Patient would benefit from acute/SNF/swing/LTAC rehab at discharge. Full Disclosure Statement provided, as appropriate. ?? Met with patient/family at bedside. Provided [facility], Office of Care Management letter from the [employer] pertaining to rehab referrals.. ?? Reviewed levels of rehab acute . ?? A list that serves the geographical area which the patient resides or the geographical area requested has been provided through [employer] search. ?? Requested patient/family provide at least three choices for referral. ?? Patient/family request return to [facility] Rehab Note routed to Windshield Repair Technician who will communicate referrals to facilities via [employer] program. Sallie Colunga MD - 08/11/2015 7:03 PM EST Interventional cardiology post PCI note Carrie Hurst is s/p urgent PCI to LCX in the setting of HF, new systolic dysfunction, and NSTEMI. Vascular access obtained in the RRA with successful hemostasis with Terumo band. Patient is now back in her room, states she feels much better. She denies chest pain, SOB, access site pain. RRA access site is c/d/i, without hematoma, or ecchymosis. R radial reverse Richy's test favorable. A/P NSTEMI s/p PCI to LCX No vascular access complications. Continue DAPT: ASA 81 mg lifelong, clopidogrel for at least 1 year post PCI. Rosangela Patel RN - 08/11/2015 2:31 PM EST OFFICE OF CARE MANAGEMENT/Fast Food Delivery Driver/PROGRESS NOTE CM received call from Olga RUIZ ([facility] RN) that [facility] has requested patient's wound vac to be returnedto their facility. CM contacted Gladis ([facility] RN) to discuss this. Gladis indicated they need the woundvac returned as they have contract with [facility] for patient use during the hospitalization at their facility. CM suggested they close order with [facility] and this CM will notify [facility] that vac is in patient's room at [facility] as we have [employer] rep on site at this facility. Gladis was in agreement with this plan. CM called Jodee at [facility] and she states she will note the end of [facility] use of vac and notify them of vac location for bead picker. CM communicated this to Rhiannon RN on floor, she states she will relay this information to Olga RUIZ. Rosangela Sawyer RN, BSN Fast Food Delivery Driver OCM Pager #[phone] Rosangela Sawyer RN - 08/11/2015 1:26 PM EST Office of Care Management (OCM) / Fast Food Delivery Driver(AYAH)/ Initial Assessment Discussed patient with Provider Team and in multidisciplinary discharge-planning rounds. 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 ? PMH Past Medical History Diagnosis Date ??? HTN (hypertension) ??? DM (diabetes mellitus) metformin ??? Hypercholesterolemia ??? PVD (peripheral vascular disease) ??? 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 At baseline (prior to amputation) she was independent with ADL/IADL's and ambulation CURRENT FUNCTIONAL STATUS: TBD pending PT/OT evaluation SOCIAL / FAMILY SUPPORTS: Patient has positive social support, Significant other and siblings identified previously as her support network. 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 PT/OT to evaluate. Potential return to Rehab vs Home with home health. Patient had home wound vac contract with [facility] prior to this hospitalization. Per hospital protocol this will be changed to hospital unit during her inpatient stay. Will need Home unit released at discharge. ANTICIPATED BARRIERS TO DISCHARGE: Medical readiness TRANSPORTATION @ D/C: Family PLAN: CM will continue to monitor progress, follow for continuity of care and assist with discharge planning while hospitalized Rosangela Sawyer RN, BSN Fast Food Delivery Driver OC Pager #[phone] . Baudilio Bassett MD - 08/11/2015 7:43 AM EST Inpatient Cardiology Progress Note Patient Name: Carrie Hurst Service: STAVE GRADER / PA Responsible Attending: Baudilio Bassett MD Reason for continued hospitalization: Awaiting cardiac catherization Active Problems: Active Hospital Problems Diagnosis ??? NSTEMI (non-ST elevated myocardial infarction) Resolved Hospital Problems Diagnosis Date Resolved No resolved problems to display. Interval History: Patient was very SOB on Saturday - the day she likely had AK. She feels better to day and is fine with the plan of Echo, cath and being a full code at this time. Review of Systems: Review of Systems Constitutional: Negative for chills, diaphoresis and fatigue. HENT: Negative for drooling, ear pain and nosebleeds. Respiratory: Positive for chest tightness and shortness of breath. Cardiovascular: Negative for palpitations and leg swelling. Gastrointestinal: Negative for abdominal distention. Endocrine: Negative for cold intolerance and heat intolerance. Genitourinary: Negative for dysuria and hematuria. Neurological: Negative for dizziness and numbness. Hematological: Negative for adenopathy. Telemetry: HR: 88 sinus rhythm Meds: Scheduled Meds: ??? aspirin 81 mg Oral Daily ??? gabapentin 600 mg Oral BID ??? meTOPROLOL succinate 25 mg Oral Daily ??? simvastatin 20 mg Oral Nightly ??? sertraline 50 mg Oral Daily ??? sodium chloride 0.9 % 5 mL Intravenous BID ??? insulin aspart 1-4 Units Subcutaneous Q4H MICHAEL ??? insulin glargine 15 Units Subcutaneous Nightly ??? pantoprazole 40 mg Oral Daily ??? clopidogrel 75 mg Oral Daily ??? lisinopril 5 mg Oral Daily Continuous Infusions: ??? heparin 950 Units/hr (08/11/15 0742) PRN Meds:heparin (porcine), acetaminophen, oxyCODONE, sodium chloride 0.9 %, lidocaine, nitroGLYcerin, dextrose 50% OR glucagon (human recombinant), LORazepam, ondansetron, morphine Physical Exam: Vital Signs: Last value Range last 24 hrs Temperature Temp: 36.7 ??C (98.1 ??F) Temp: [36.6 ??C (97.9 ??F)-37.2 ??C (99 ??F)] Heart Rate Heart Rate: 88 Heart Rate: [88-96] Blood Pressure BP: 141/76 mmHg BP: (141-168)/(76-86) Respiratory Rate Resp: 18 Resp: [18-20] SpO2 SpO2: 95 % SpO2: [88 %-98 %] Physical Exam Constitutional: She appears well-developed and well-nourished. No distress. HENT: Head: Normocephalic and atraumatic. Eyes: No scleral icterus. Neck: No JVD present. Cardiovascular: Normal rate and regular rhythm. Exam reveals no gallop and no friction rub. No murmur heard. Pulmonary/Chest: No respiratory distress. She has no wheezes. She has no rales. Abdominal: She exhibits no distension. There is no tenderness. Musculoskeletal: She exhibits no edema. Neurological: She is alert. Skin: Skin is warm and dry. She is not diaphoretic. No erythema. Left AKA incision is clean, dry, and intact. Patient is moving stump freely. Psychiatric: She has a normal mood and affect. She seems depressed and has somewhat of a flat affect. Oliva to gravity with light yellow clear urine Lab Comments: Recent Labs 08/11/15 0620 08/10/152038 WBC 9.7 10.6* HGB 11.5 12.0 HCT 34.5 35.0 PLATELET 359 369 No results for input(s): INR in the last 168 hours. Recent Labs 08/11/15 0620 08/10/15 2330 NA 138 136 K 3.9 3.4* CL 96* 93* CO2 Not Perf 27 BUN 22* 26* CREATININE 1.11 1.16 Recent Labs 08/10/15 2330 AST 22 ALT 37* ALKPHOS 337* BILITOT 0.5 BILIDIR 0.1 Recent Labs 08/11/15 0620 08/10/15 2330 CALCIUM 7.8* 7.8* MAGNESIUM 0.85 0.52* Recent Labs 08/11/15 0620 08/10/15 2330 CK 35 -- TROPONINT 0.64* 0.63* 0.50* Pertinent Radiographic/Diagnostic Results: Cardiac Cath: ECHO: Assessment: Carrie Hrust is a 64 y.o. female with a recent discharge from the vascular service 08/03/15 who presents from [facility] rehab with a NSTEMI and HF. She had t wave inversions in the anterior territory seen on her EKG. Her Echocardiogram now shows LVEF of 40% (was 65%). She was transfused 2 Units and now has a HCT of 33. She had a DSE 03/16/15 showing inferior/inferior septal infarction and stress inducible ischemia in the apex and apical lateral wall. At that time she did not have a cath as she needed to go urgently to the OR. She is s/p left AKA, left groin sartorius flap, left groin wound VAC placement. Hospital course complicated by PANDA. Hx of Dyslipidemia, DM, HTN, and PAD. Patient has been through a lot and seems to be depressed. She is stable at this time. Plan: 1. Acute NSTEMI Continue telemetry monitoring Continue IV heparin, aspirin, Plavix and metoprolol. ?? Cardiac catheterization planned after Echocardiogram today Consent obtained as risk and benefits were explained and questions addressed NPO for cath 2. Congestive Heart Failure, LVEF is 40% per [facility] report Repeat Echocardiogram here Currently she appears euvolemic. Was started on Lisinopril due to LVEF of 40%. 3. Left groin Wound: ?? s/p wound vacuum device Continue on Daptomycin 500 mg IV Q48H. Her last dose was at 5:00 PM on 08/10/15. As per their notes, per ID, she is supposed to be on it till 08/21/15 4. Type 2 Diabetes: Continue lantus and sliding scale. 5. Chronic Kidney Disease: Stable with creatinine of 1.29. Avoid nephrotoxic agents. 6. Blood Loss Anemia: She was given 2 units of pRBC at [facility] and her hct is 33. She likely had post op blood loss. 7. Stage 2 Coccygeal decubitus ulcer: Wound care consult and supportive care. 8. Full Code Patient seen and discussed with Dr. Bassett. GAIL HARRINGTON 08/11/2015 Pager [phone] ATTENDING ADDENDUM I interviewed and examined Carrie Hurst with the associate provider on rounds today. I have discussed the case with her and confirm the history and figueroa physical findings outlined in this note. The assessment and plan were formulated in discussion with me at the time of this encounter, and I agree with them as documented. Her circumflex was stented today. documented in this encounter H&P Notes Cody Mora V - 08/10/2015 9:13 PM EST Admission History & Physical August 10, 2015 Name: Carrie Hurst Gender: female : 1950 Age: 64 y.o. Date of Admit: 08/10/2015 Attending Physician Baudilio Bassett MD Chief Complaint: Shortness of breath and chest pain two days ago, admitted at [facility] and managed for acute NSTEMI and pulmonary edema and is transferred here for higher level of care. Patient Active Problem List Diagnosis ??? NSTEMI (non-ST elevated myocardial infarction) ??? Critical lower limb ischemia Overview Note: 07/29/2015: Left AKA 07/27/2015: Left groin sartorius flap 07/24/2015: ISSAC christian amp, removal PTFE graft, left groin wound vac placement ??? HLD (hyperlipidemia) ??? Claudication ??? Non-healing ulcer of foot Overview Note: Previous wound to left foot between 4th & 5th toe, currently resolved, 03/2015 ??? DMII (diabetes mellitus, type 2) ??? Hypercholesterolemia ??? Hypertension ??? PAD (peripheral artery disease) Overview Note: 05/26/2015: Left femoral endarterectomy and LLE fem-PT arterial bypass History of Presenting Illness: Carrie Hurst is a 64 y.o. old female who is transferred to [facility] from [facility] for further managementof NSTEMI with moderate systolic dysfunction leading to pulmonary edema. Pt was admitted there on 08/08/15 from rehab center. 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 She did fine for 4 days and suddenly developed severe shortness of breath and chest pain and was transferred to [facility] and was diagnosed with acute AK and pulmonary edema. She was diuresed with IV lasix and BiPAP and was maintained IV heparin and Plavix and initially the family opted for medical management but changed their mind today andis transferred here for consideration for cardiac catheterization. At the time of transfer, she was taken off of lasix to keep creatinine at a reasonable level to facilitate cath. Apparently two units of pRBC was transfused for anemia and her hct is 33 this morning. She has a groin wound which has wound vacuum device applied and was on ceftazidime and vancomycin when she was here but was switched to Daptomycin and she received it prior to being transferred here. Currently, she reports very minimal shortness of breath. Her major complaint is the stump pain. She reports severe weakness and fatigue. She denies chest pain or chest tightness. She denies nausea, vomiting or cough or fever or chills. She denies palpitations. She reports being very anxious about all the procedures that she has to go through. She told me that, she just wants to get out of the hospital, but was also scared to when she had that shortness of breath two days ago. She did confirmthat she does not want to be intubated or resuscitated if it comes to that. From cardiac stand point, she had a stress echocardiogram in mar 2015 that was positive for inferior ischemia. She was managed medically and she went ahead with all the surgical interventions on the leg since then. She had a total of 5 interventions since then ranging from wound debridements to foot amputation and then below knee followed by above knee amputations. Stress Echo from Mar 2015: 1. BASELINE: The left ventricle is probably normal in size. There is normal global left ventricular systolic function. The visually estimated left ventricular ejection fraction is 65%. The?? basal inferoseptal wall segment is akinetic (score 3). The?? basal inferior wall segment is hypokinetic (score 2). Right ventricular chamber size, wall thickness, and systolic function are within normal limits. The estimated pulmonary artery systolic pressure is 25 mmHg. Focal aortic leaflet calcification is visualized. There is no evidence of aortic valve stenosis. There is no evidence of aortic regurgitation. The mitral valve leaflets are mildly thickened. There is mild to moderate (1-2+/4+) mitral regurgitation present. EKG: normal sinus rhythm, premature ventricular contractions noted. ?? 2. DOBUTAMINE STRESS: The patient achieved a maximum heart rate of 144 (85% of predicted maximum). The patient did not express feelings of chest discomfort. The patient felt nauseous and?? light-headed. There were frequent ventricular premature beats. There were 1.[address] segment depression in the lead V2 and [address] elevations in inferolateral leads. ?? 3. CONCLUSION: Evidence for basal inferior/inferoseptal infarction and stress inducible ischemia in the apex and apical lateral wall (with technically difficult imaging). ?? Review of Systems: General ROS: Positive for fatigue and weakness. Psychological: Positive for severe anxiety and depression, no mood swings. Ophthalmic: No blurred vision or watery or red eyes. ENT: Negative for ear discharge or running nose or cold or throat swelling. Allergy: negative for - itchy/watery eyes Heme: Negative for-bleeding, bruising, jaundice, night sweats Endocrine: negative for - polydipsia/polyuria/ heat intolerance Respiratory: As in HPI CVS: As in HPI GI: No abd pain, change in bowel habits, or black or bloody stools Genitourinary: No dysuria, trouble voiding, or hematuria MSK: Positive for stump pain and groin pain and back pain. Neurological: No TIA or stroke symptoms Allergies:Review of patient's allergies indicates no known allergies. Home Medications: Prescriptions prior to admission Medication Sig Dispense Refill Last Dose ??? gabapentin (NEURONTIN) 300 mg Capsule Take [...] ??? sertraline (ZOLOFT) 50 mg Tablet Take 50 mg by mouth daily. Taking at Unknown time ??? meTOPROLOL succinate (TOPROL-XL) 25 mg Tablet Sustained Release 24 hr Take 1 tablet by mouth daily. 30 tablet 12 Taking at Unknown time ??? multivitamin (THERAGRAN) Tablet Take 1 tablet by mouth daily. Taking at Unknown time ??? aspirin 81 mg Tablet, Delayed Release (E.C.) Take 1 tablet by mouth daily. 30 tablet 3 Taking atUnknown time ??? simvastatin (ZOCOR) 20 mg Tablet Take 20 mg by mouth nightly. Taking at Unknown time ??? acetaminophen (TYLENOL) 325 mg Tablet Take 325 mg by mouth every 4 hours as needed for Pain. Taking at Unknown time Above were here home medications, but she was started on plavix, lisinopril daptomycin and IV heparin at the outside hospital. Past Medical History Diagnosis Date ??? HTN (hypertension) ??? DM (diabetes mellitus) metformin ??? Hypercholesterolemia ??? PVD (peripheral vascular disease) ??? HLD (hyperlipidemia) 03/24/2015 Past Surgical History Procedure Laterality Date ??? Skin graft Left left 2nd metacarpal ??? Pro vein bypass graft, fem-tibial Left 03/18/2015 @BYPASS GRAFT, FEM.-ANT. TIB, POST. TIB, PERONEAL, DP W\ VEIN CONDUIT ([place] [id number]) performed by Mariano Doyle MD at [facility] MAIN OR ??? Pro bypass graft othr, fem-tibial Left 05/26/2015 @BYPASS GRAFT, FEM-ANT TIBIAL, -POST TIBIAL, -PERONEAL, -DP W\ SYNTHETIC CONDUIT performed by Mariano Doyle MD at [facility] MAIN OR ??? Pro bypass graft vein patch/cuff, synthetic Left 05/26/2015 PLACEMENT VEIN PATCH OR CUFF AT DISTAL ANASTOMOSIS OF BYPASS GRAFT, SYNTHETIC CONDUIT , RODRIGUEZ-COLLAR, RACHELLE-PATCH, ADD-ON CODE, LOWER EXTREMITY performed by Mariano Doyle MD at [facility] MAIN OR ??? Pro thromboendartectmy iliofemoral Left 05/26/2015 @ENDARTERECTOMY, ILIOFEMORAL W OR W/O PATCH GRAFT performed by Mariano Doyle MD at [facility] OR ??? Pro reoperation, bypass graft Left 05/26/2015 @RE-OP FOR RE-DO LOWER EXTREMITY BYPASS GRAFT, >1 MONTH P\ ORIGINAL SURGERY, ADD-ON CODE performed by Mariano Doyle MD at [facility] OR ??? Pro amputation low leg, circular Left 07/24/2015 @AMPUTATION, BELOW-KNEE, OPEN, GUILLOTINE performed by Elicia Caal MD at [facility] OR ??? Pro exploration, femoral artery Left 07/24/2015 @EXPLORATION, W/WO LYSIS, FEMORAL ARTERY W\O SURGICAL REPAIR performed by Elicia Caal MD at [facility] OR ??? Pro negative pressure wound therapy, less than or equal to 50 sqcm Left 07/24/2015 DRESSING CHANGE (VAC ASSISTED) UP TO 50SQ.CM performed by Elicia Caal MD at [facility] OR ??? Pro rebl ves direct, low extrem Left 07/24/2015 REPAIR LOWER EXTREMITY BLOOD VESSEL, DIRECT, NO PATCH OR GRAFT performed by Elicia Caal MD at [facility] OR ??? Pro excision, infec graft, extremity Left 07/24/2015 EXCISION OF INFECTED GRAFT FROM LOWER EXTREMITY performed by Elicia Caal MD at [facility] OR ??? Pro muscle-skin flap, leg Left 07/27/2015 FLAP, MYOCUTANEOUS OR FASCIOCUTANEOUS, LOWER EXTREMITY performed by Elicia Caal MD at [facility] OR ? ? Pro debridement subcutaneous tissue 20 sqcm/< Left 07/27/2015 DEBRIDEMENT SKIN AND SUBCU, LOWER EXTREMITY performed by Elicia Caal MD at [facility] OR ??? Left 07/27/2015 MODIFIER WOUND VAC performed by Elicia Caal MD at [facility] OR ??? Pro dressing change under anesthesia Left 07/29/2015 DRESSING CHANGE (FOR OTHER THAN ESCALANTE) UNDER ANES., LOWER EXTREMITY performed by Elicia Caal MD at [facility] OR ??? Pro amputate thigh, secondry closur Left 07/29/2015 AMPUTATION, ABOVE-KNEE, SECONDARY CLOSURE OR SCAR REVISION performed by Elicia Caal MD at [facility] MAIN OR Family History Problem Relation Age of Onset ??? Type 2 Diabetes Sister ??? Type 2 Diabetes Mother ??? Type 2 Diabetes Father ??? Coronary Artery Disease Father ??? Coronary Artery Disease Mother History Social History ??? Marital Status: Spouse Name: N/A Number of Children: N/A ??? 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 Smoking status: Never Smoker ??? Smokeless tobacco: Never Used ??? Alcohol Use: No ??? Drug Use: No Comment: marijuana (smoked for 8 years. quit 2004) ??? Sexual Activity: No Other Topics Concern ??? Not on file Social History Narrative Lives with significant other Ranch style home Physical Exam: Filed Vitals: 08/10/151951 BP: 153/79 Pulse: 96 Temp: 37.2 ??C (99 ??F) Resp: 18 Gen/Constitutional: Alert, frail, appears comfortable. HEENT: DOMINGO, EOMI, No conjunctival pallor or scleral icterus Cardiac/CVS: Regular S1 S2, No S3, Grade 3/6 HSM at apex but heard all over precordium Pulm/Chest: Decreased sounds both bases, right worse than left. No creps or ronchi. Abd/GI: No tenderness, not distended, soft, BS present, no organomegaly, LLQ has wound vac extendingto Left groin wound Musculoskeletal: Rt leg is fine. 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 Sutures still intact. Wound vac applied and no significant discharge noted. 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 Investigations from [facility] from earlier this morning and yesterday: Labs: Troponin:4.8 BUN/Creatinine: 30/1.29 Hgb/Hct/Plt:10.6/32.2/354 WBC: 14.13 Sodium/Potassium: 139/2.9 PT/INR: 10.9/1.1 LDL: 141 HDL: 45 CXR: ECG: NSR, old inferior infarct, poor R wave progression and possible old anterior infarction. T waveinversions in lateral leads. Cannot rule out lateral ischemia. 2D Echo: at [facility] on 08/09/15: - moderate systolic dysfunction with LVEF of 40% - Hypokinesis of the inferior and inferolateral wall - akinesis of the apical, inferolateral, inferior and apical myocardium - Akines of the mid apical and anteroseptal wall - moderate to severe mitral regurgitation - mild to moderate tricuspid regurgitation - Bilateral pleural effusions. Assessment and Plan: 1. Acute NSTEMI: - Continue IV heparin, aspirin, Plavix and metoprolol. - From the resting Echo from yesterday, as noted above, it looks like she will have multi-vessel disease. Diagnostic cath vs medical management to be discussed with family after morning rounds. I had long discussions about the risks and benefits, with patient's significant other, for at least 30 minutes. 2. Congestive Heart Failure: - Currently euvolemic. Was started on Lisinopril due to LVEF of 40%. Will continue. Hold lasix untildecision of cath vs med management. 3. Left groin Wound: -s/p wound vacuum device - On Daptomycin 500 mg IV Q48H. Her last dose was at 5:00 PM today 08/10/15. As per their notes, per ID, she is supposed to be on it till 08/21. We have to get ID approval in AM and her next would be due on Saturday evening. 4. Type 2 Diabetes: - Continue lantus and sliding scale. 5. Chronic Kidney Disease: - Stable with creatinine of 1.29. Avoid nephrotoxic agents. 6. Blood Loss Anemia: - She was given 2 units of pRBC at [facility] and her hct is 33. Likely post op blood loss. 7. Stage 2 Coccygeal decubitus ulcer: - Wound care consult and supportive care. Signature: Cody Mora MD Date: August 10, 2015 Time: 9:13 PM Pager: [phone] documented in this encounter Miscellaneous Notes Plan of Care - Nani Mclean RN - 08/13/2015 8:57 AM EST Problem: Skin Integrity Impairment, Risk/Actual (Adult, Obstetrics) Goal: Identify Signs and Symptoms and Related Risk Factors Signs and symptoms and related risk factors are identified upon initiation of Human Response Clinical Practice Guideline (CPG) Outcome: Ongoing (Interventions Implemented as Appropriate) 08/11/15 181 Skin Integrity Impairment, Risk/Actual Personal Related Risk Factors (Skin Integrity Impairment, Risk/Actual) extremes in age;stress Physiological Related Risk Factors (Skin Integrity Impairment, Risk/Actual) scar tissue;sensory impairment Treatment Related Related Risk Factors (Skin Integrity Impairment, Risk/Actual) invasive catheters;physical immobilization;surgery Goal: Skin Integrity/Wound Healing Patient will demonstrate the desired outcomes. Outcome: Ongoing (Interventions Implemented as Appropriate) 08/12/151827 Skin Integrity Impairment, Risk/Actual (Adult, Obstetrics) Skin Integrity/Wound Healing making progress toward outcome Problem: General Plan of Care Goal: Plan of Care Review Outcome: Ongoing (Interventions Implemented as Appropriate) 08/12/15182708/12/151999 Plan of Care Review Plan of Care Outcome Status ongoing (interventions implemented as appropriate) -- Progress progress toward functional goals as expected -- Coping/Psychosocial Response Interventions Plan of Care Reviewed with -- patient OUTCOME EVALUATION NOTE: OUTCOME SUMMARY: pt is Presently Pain Free PLAN MOVING FORWARD: Discharged Per Wheelchair Van At 10am report Given To Annetta Small RN INDIVIDUALIZED FALL PREVENTION: Assistance: stand Turn And Pivot With one assist. Supervision: Family at Bed side Hourly grounding in Place CPG GOAL OUTCOME EVALUATION: Goal: Fall Prevention-Safe Patient Handling Outcome: Ongoing (Interventions Implemented as Appropriate) 08/12/1585008/12/15199908/12/152007 Musculoskeletal Interventions Activity/Level of Assistance -- with walker;with 1-person assist -- Positioning -- -- HOB up 30 degrees;HOB up 15 degrees Self-Care Promotion -- adaptive equipment provided -- Safety Interventions Safety Precautions/Fall Reduction environmental modification;fall reduction program maintained;commode/urinal/bedpan at bedside;lighting adjusted for task/safety;nonskid shoes/slippers when out of bed;assistive device -- -- Andino Fall Risk History of Falling -- 0 -- Secondary Diagnosis -- 15 -- Ambulatory Aids -- 15 -- Intravenous Therapy/Heparin/Saline Lock -- 20 -- Gait/Transferring -- 10 -- Mental Status -- 0 -- Score -- 60 -- Activity and Safety Assistive Device -- Front wheel walker -- OTHER Andino Fall Risk -- High -- Goal: Infection Control 08/12/15 0808/12/151999 Coping/Psychosocial Response Interventions Counseling -- emotional support provided Safety Interventions Isolation Precautions standard precautions maintained -- Infection Prevention rest/sleep promoted;promote handwashing;nutrition promoted;hydration promoted;environmental surveillance;blood glucose management -- Goal: Discharge Needs Assessment 08/11/15 1811 Discharge Needs Assessment Readmission Within the Last 30 Days current reason for admission unrelated to previous admission Discharge Facility/Level of Care Needs rehabilitation facility Plan of Care - Olga Begum RN - 08/12/2015 6:32 PM EST Problem: Skin Integrity Impairment, Risk/Actual (Adult, Obstetrics) Goal: Identify Signs and Symptoms and Related Risk Factors Signs and symptoms and related risk factors are identified upon initiation of Human Response Clinical Practice Guideline (CPG) Outcome: Ongoing (Interventions Implemented as Appropriate) 08/11/15 1811 Skin Integrity Impairment, Risk/Actual Personal Related Risk Factors (Skin Integrity Impairment, Risk/Actual) extremes in age;stress Physiological Related Risk Factors (Skin Integrity Impairment, Risk/Actual) scar tissue;sensory impairment Treatment Related Related Risk Factors (Skin Integrity Impairment, Risk/Actual) invasive catheters;physical immobilization;surgery Goal: Skin Integrity/Wound Healing Patient will demonstrate the desired outcomes. Outcome: Ongoing (Interventions Implemented as Appropriate) 08/12/15 1828 Skin Integrity Impairment, Risk/Actual (Adult, Obstetrics) Skin Integrity/Wound Healing making progress toward outcome Problem: General Plan of Care Goal: Plan of Care Review Outcome: Ongoing (Interventions Implemented as Appropriate) 08/12/15 1828 Plan of Care Review Plan of Care Outcome Status ongoing (interventions implemented as appropriate) Progress progress toward functional goals as expected Coping/Psychosocial Response Interventions Plan of Care Reviewed with patient OUTCOME EVALUATION NOTE: OUTCOME SUMMARY: Pt had an uneventful day, wound care in to change wound vac dressing, pt had a complete bath, pt up to commode with walker and one person assist, +BM x2, pt refused to work with PT this afternoon, right radial site c/d/i, VSS, pain free, several family and friends into see pt throughout the day. PLAN MOVING FORWARD: D/C back to [facility] tomorrow at 10am, with [facility] wound vac machine INDIVIDUALIZED FALL PREVENTION: Pt is a 64 yo female that came from [facility], pt had recent Left AKA and has been rehabing, pt states she stand and pivots with one person assist and walker to commode. Assistance: x1 with walker Supervision: Telemetry, call light within reach Surveillance: Hourly rounding CPG GOAL OUTCOME EVALUATION: Goal: Individualization and Mutuality Outcome: Ongoing (Interventions Implemented as Appropriate) Goal: Fall Prevention-Safe Patient Handling Outcome: Ongoing (Interventions Implemented as Appropriate) 08/11/15 0325 08/11/15 1100 08/12/15 0851 Musculoskeletal Interventions Activity/Level of Assistance -- -- with walker;with 1-person assist Positioning -- -- right side;HOB up 30-45 degrees Self-Care Promotion adaptive equipment provided;independence encouraged while providing assistance -- -- Safety Interventions Safety Precautions/Fall Reduction -- -- environmental modification;fall reduction program maintained;commode/urinal/bedpan at bedside;lighting adjusted for task/safety;nonskid shoes/slippers when out of bed;assistive device Andino Fall Risk History of Falling -- -- 0 Secondary Diagnosis -- -- 15 Ambulatory Aids -- -- 15 Intravenous Therapy/Heparin/Saline Lock -- -- 20 Gait/Transferring -- -- 10 Mental Status -- -- 0 Score -- -- 60 Activity and Safety Assistive Device -- Front wheel walker -- OTHER Andino Fall Risk -- -- High Goal: Infection Control Outcome: Ongoing (Interventions Implemented as Appropriate) 08/11/15 0325 08/12/15 0851 Coping/Psychosocial Response Interventions Counseling emotional support provided -- Safety Interventions Isolation Precautions -- standard precautions maintained Infection Prevention -- rest/sleep promoted;promote handwashing;nutrition promoted;hydration promoted;environmental surveillance;blood glucose management Goal: Discharge Needs Assessment Outcome: Ongoing (Interventions Implemented as Appropriate) 08/11/15 1811 Discharge Needs Assessment Readmission Within the Last 30 Days current reason for admission unrelated to previous admission Discharge Facility/Level of Care Needs rehabilitation facility Consult Note - Maria Fernanda Blank RN - 08/12/2015 4:33 PM EST Images from the original note were not included. Certified Wound Care Nurse Note Situation: Follow up to see Carrie G Aris for NPWT dressing change to left groin. Background: eD-H notes reviewed for history, admitting diagnosis and active problem list. Wound Assessment and Care Provided: Attempted to see patient this morning and spoke with nurse and Bree Enciso. Patient was to be discharged today. Stopped by this afternoon and patient to be discharged tomorrow. Permission received to do NPWT dressing change and take a photo for the medical record. Patient's sister Dangelo present who is a retired PLANNING SPECIALIST. The NPWT dressing was removed, patient did have some pain with removal and normal saline used to soak the foam before removal. The tunnel at 6:00 is 4.8 cm, white foam used in this tunnel. Some gonzalez/yellow slough noted at 1:00 - 3:00. NPWT dssg applied per protocol picture framing with drape. Suction achieved at 125 mmHg. The following photo was taken: Kane Score: 14 Last Pressure Ulcer Prevention assessment: Shift Pressure Ulcer Prevention Occiput: No Injury Thoracic Spine: No Injury Sacral: Existing Injury prior to this admission Ischial - left: No Injury Ischial - right: No Injury Heel - left: other (see comment) (AKA) Heel - right: No Injury Elbow - left: No Injury Elbow - right: No Injury Device Sites: IV sites, ECG Leads, other (see comments) (wound vac) Existing Wounds: Wound 07/27/15 Left groin (Active) Wound WDL WDL 08/12/2015 8:51 AM Dressing Appearance moist drainage 08/12/2015 4:00 PM Base reddened;slough;yellow 08/12/2015 4:00 PM Length (cm) 15.5 08/12/2015 4:00 PM Width (cm) 4.3 08/12/2015 4:00 PM Depth (cm) 1.7 08/12/2015 4:00 PM Tunneling [depth (cm)/location] 1.8 cm @1:00; 4.8 cm @6:00; 0.8 cm @ 8:00 08/12/2015 4:00 PM Undermining [depth (cm)/location] 1:00 to 3:00 08/12/2015 4:00 PM Drainage Amount moderate 08/12/2015 4:00 PM Wound Cleaning irrigated with;sterile normal saline 08/12/2015 4:00 PM Dressing Dressing removed;Dressing applied;foam;transparent film 08/12/2015 4:00 PM Therapy Setting (Negative Pressure Wound Therapy) continuous therapy 08/12/2015 4:00 PM Pressure Setting (Negative Pressure Wound Therapy) 125 mmHg 08/12/2015 4:00 PM Dressing (Negative Pressure Wound Therapy) foam, white;foam, black 08/12/2015 4:00 PM Sponges Inserted (Negative Pressure Wound Therapy) 2 08/12/2015 4:00 PM Sponges Removed (Negative Pressure Wound Therapy) 1 08/12/2015 4:00 PM Nutritional Status Wt Readings from Last 1 Encounters: 08/12/15 45.314 kg (99 lb 14.4 oz) Body mass index is 19.51 kg/(m^2). Labs Lab Results Component Value Date ALBUMIN 2.8* 08/10/2015 ALBUMIN 2.3* 07/28/2015 PREALBUMIN 10* 07/28/2015 WBC 8.4 08/12/2015 WBC 9.7 08/11/2015 WBC 10.6* 08/10/2015 HGB 11.3 08/12/2015 HGB 11.5 08/11/2015 HGB 12.0 08/10/2015 HCT 35.0 08/12/2015 HCT 34.5 08/11/2015 HCT 35.0 08/10/2015 Nutritional Intake Nutrition Assessments Diet/Nutrition Prescription: low saturated fat/low cholesterol, 2 gram sodium Fluids: adequate Current bed: Versa Care Assessment: The patient is with a surgical wound with NPWT. The wound bed appears cleans and red, there is some slough noted. Continue with NPWT to promote granulation. Wound Care Recommendations: Dressing Changes/Skin Care:?? Mepilex Border Sacrum dressing-change q3 days and PRN: 1.?? Cleanse skin with dermal wound cleanser. 2.?? Apply Mepilex Border Sacrum dressing. 3.?? Seal edges with skin prep. Change NPWT dressing every Saturday, Saturday and Saturday as follows: 1. Cleanse the wound with normal saline using a 30ml syringe and an 18 gauge angiocatheter OR dermalwound cleanser. 2. Apply skin prep to the periwound skin. 3. Place the sponge into the wound-note # and type of sponges used. 4. Cover the wound and periwound skin with thin film drape. 5. Cut a quarter size hole in the drape over the sponge and place the TRAC pad over this hole. 6. Attach the TRAC pad to the canister tubing and turn on suction machine set at 125mmHg continuous suction. In case of dressing/pump failure: Remove VAC dressing and all foam from the wound bed. Cleanse wound with normal saline Apply a normal saline moistened gauze dressing to the wound bed (use one continuous piece of rolled gauze if tunnels or undermined area present. If more than one piece of gauze is used in the wound bed, note # of pieces used) Cover with ABD pad or gauze, secure with tape. If patient is discharged tomorrow disconnect [facility] wound Vac and connect to patient's [facility] Wound vac for transport. If vac unavailable then remove NPWT and apply a wet to moist dressing for transport. Pressure Ulcer Prevention:?? Sensory: ?? Inspect foot, ankle and bony prominences every shift for pressure ulcer development. Inspect tube sites daily; reposition/secure to avoid pressure. Activity: Limit time OOB to the chair to 2 hour intervals. ?? Use a [employer] chair cushion beneath patient at all times while in the chair. ?? Reinforce teaching to shift weight every 15 minutes while in the chair. Nutrition: Evaluate nutrition/hydration status. ?? Encourage patient to eat or drink nutritional supplements as ordered.? Assist with snacks and meals as appropriate. Obtain a Nutrition consult if intake less than 75% of provided food. ?? Mobility: ?? Turn and reposition every 2 hours from side to side and document in ED-H. Place a pillow above and below sacral area to off load pressure to the sacrum Offload pressure from heel by placing pillows lengthwise beneath legs while in bed. ?? Offload pressure from heels by adjusting length of foot of bed.?? VersaCare AIR bed ?? Use a single quilted chux and a single fitted sheet beneath patient ?? Turn and reposition every two hours. ?? Position hips at triangle icon on the inside of the bed rail.? Retract foot of bed to 1-2 inches from the feet to allow for decreased heel pressure. ?? If patient unable to reposition feet independently, elevate patients legs by placing 1-2 pillows lengthwise beneath their legs allowing the heels float over the surface of the bed.?? Friction and Shear: ? Reposition avoiding shear forces, utilizing maxislide, trendelenberg and max ? inflate (boost) feature on beds to assist with repositioning.? Position hips at triangle icon on bed. ?? Use skin prep on heels and elbows bid. ?? Keep HOB less than or equal to 30 degrees. ?? Use Nourishing Skin Cream after baths for extra dry skin.? Wound Care Team will plan to follow:?? every M, W, F. Discussed plan with: /DEBBIE/PA: Bree RN: Olga Begum Please contact MARIA FERNANDA BLANK RN on pager [phone] or the wound care team at [phone] or pager [phone] skin and wound care concerns or questions. Electronically Signed By: MARIA FERNANDA BLANK RN Consult Note - Rosa Ruvalcaba RN - 08/12/2015 10:32 AM EST Carrie Hurst has been referred to Cardiac Rehab. After reviewing the patient's current medical status, the patient was deemed an inappropriate candidate for Cardiac Rehab services at this time. Sheis scheduled to go to rehab today at [facility]. The educational packet regarding CAD, cardiac risk factors, and managing angina was given to patient. Heart diagram reviewed. Mediterranean diet guidelines briefly reviewed. A referral for outpatient cardiac rehab services can be re evaluated in the future. Consult Note - Hoa Felipe MD - 08/12/2015 10:06 AM EST INFECTIOUS DISEASE CONSULT NOTE Reason for Consult: I am seeing Carrie Hurst at the request of Dr. Mock for the evaluation of continued IV antibiotics for recent left groin infected vascular graft revision. 08/10/2015 HPI: Carrie Hurst is a 64 y.o. 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 She underwent debridement of the groin (PFTE removed and bovine pericardial patch graft used for reconstruction then left sartorious flap) and, ultimately, left AKA. She was discharged to rehab with wound vac and plan to treat with daptomycin through 08/21 (4 weeks) followed by two weeks of oral doxycycline. Her dapto was dosed q 48 hours based on 24 hr urine CrCl of ~20. She was readmitted 08/11 to Cardiology service with NSTEMI and heart failure. Had cardiac cath and now stablized. Team hopes that pt will return to rehab this afternoon. No Known Allergies Pertinent medications: Daptomycin q 48 Hrs Patient Active Problem List Diagnosis Code ??? Claudication I73.9 ??? Non-healing ulcer of foot L97.509 ??? DMII (diabetes mellitus, type 2) E11.9 ??? Hypercholesterolemia E78.0 ??? Hypertension I10 ??? PAD (peripheral artery disease) I73.9 ??? HLD (hyperlipidemia) E78.5 ??? Critical lower limb ischemia I99.8 ??? NSTEMI (non-ST elevated myocardial infarction) I21.4 Past Medical History Diagnosis Date ??? HTN (hypertension) ??? DM (diabetes mellitus) metformin ??? Hypercholesterolemia ??? PVD (peripheral vascular disease) ??? HLD (hyperlipidemia) 03/24/2015 Past Surgical History Procedure Laterality Date ??? Skin graft Left left 2nd metacarpal ??? Pro vein bypass graft, fem-tibial Left 03/18/2015 @BYPASS GRAFT, FEM.-ANT. TIB, POST. TIB, PERONEAL, DP W\ VEIN CONDUIT ([place] [id number]) performed by Mariano Doyle MD at [facility] MAIN OR ??? Pro bypass graft othr, fem-tibial Left 05/26/2015 @BYPASS GRAFT, FEM-ANT TIBIAL, -POST TIBIAL, -PERONEAL, -DP W\ SYNTHETIC CONDUIT performed by Mariano Doyle MD at [facility] MAIN OR ??? Pro bypass graft vein patch/cuff, synthetic Left 05/26/2015 PLACEMENT VEIN PATCH OR CUFF AT DISTAL ANASTOMOSIS OF BYPASS GRAFT, SYNTHETIC CONDUIT , MICHAEL-COLLAR, RACHELLE-PATCH, ADD-ON CODE, LOWER EXTREMITY performed by Mariano Doyle MD at [facility] OR ??? Pro thromboendartectmy iliofemoral Left 05/26/2015 @ENDARTERECTOMY, ILIOFEMORAL W OR W/O PATCH GRAFT performed by Mariano Doyle MD at [facility] OR ??? Pro reoperation, bypass graft Left 05/26/2015 @RE-OP FOR RE-DO LOWER EXTREMITY BYPASS GRAFT, >1 MONTH P\ ORIGINAL SURGERY, ADD-ON CODE performed by Mariano Doyle MD at [facility] OR ??? Pro amputation low leg, circular Left 07/24/2015 @AMPUTATION, BELOW-KNEE, OPEN, GUILLOTINE performed by Elicia Caal MD at [facility] OR ??? Pro exploration, femoral artery Left 07/24/2015 @EXPLORATION, W/WO LYSIS, FEMORAL ARTERY W\O SURGICAL REPAIR performed by Elicia Caal MD at [facility] OR ??? Pro negative pressure wound therapy, less than or equal to 50 sqcm Left 07/24/2015 DRESSING CHANGE (VAC ASSISTED) UP TO 50SQ.CM performed by Elicia Caal MD at [facility] OR ??? Pro rebl ves direct, low extrem Left 07/24/2015 REPAIR LOWER EXTREMITY BLOOD VESSEL, DIRECT, NO PATCH OR GRAFT performed by Elicia Caal MD at [facility] OR ??? Pro excision, infec graft, extremity Left 07/24/2015 EXCISION OF INFECTED GRAFT FROM LOWER EXTREMITY performed by Elicia Caal MD at [facility] OR ??? Pro muscle-skin flap, leg Left 07/27/2015 FLAP, MYOCUTANEOUS OR FASCIOCUTANEOUS, LOWER EXTREMITY performed by Elicia Caal MD at [facility] OR ? ? Pro debridement subcutaneous tissue 20 sqcm/< Left 07/27/2015 DEBRIDEMENT SKIN AND SUBCU, LOWER EXTREMITY performed by Elicia Caal MD at [facility] OR ??? Left 07/27/2015 MODIFIER WOUND VAC performed by Elicia Caal MD at [facility] OR ??? Pro dressing change under anesthesia Left 07/29/2015 DRESSING CHANGE (FOR OTHER THAN ESCALANTE) UNDER ANES., LOWER EXTREMITY performed by Elicia Caal MD at [facility] MAIN OR ??? Pro amputate thigh, secondry closur Left 07/29/2015 AMPUTATION, ABOVE-KNEE, SECONDARY CLOSURE OR SCAR REVISION performed by Elicia Caal MD at [facility] MAIN OR ROS: Some phantom leg pain but ROS otherwise negative. Social History: Not discussed today Family History: Noncontributory Physical Exam: Temp: [36.2 ??C (97.2 ??F)-36.8 ??C (98.2 ??F)] Heart Rate: [75-89] BP: (121-156)/(64-92) Resp: [16-23] SpO2: [93 %-100 %] Gen: Pale, frail women. Supine in bed. Awake alert. Cardio RRR without murmur appreciated. RUE PICC site benign. Extremities: left AKA healing well. Remains sutured. Left groin vac. Skin: Sacral decub -- see wound care photos Lab Results Component Value Date WBC 8.4 08/12/2015 RBC 3.90* 08/12/2015 HGB 11.3 08/12/2015 HCT 35.0 08/12/2015 MCV 89.7 08/12/2015 MCH 29.0 08/12/2015 MCHC 32.3 08/12/2015 PLATELET 334 08/12/2015 RDWCV 15.9* 08/12/2015 Lab Results Component Value Date NA 139 08/12/2015 K 3.7 08/12/2015 CL 100 08/12/2015 CO2 27 08/12/2015 Lab Results Component Value Date BUN 17 08/12/2015 CREATININE 0.98 08/12/2015 Lab Results Component Value Date ALT 37* 08/10/2015 AST 22 08/10/2015 ALKPHOS 337* 08/10/2015 BILITOT 0.5 08/10/2015 Lab Results Component Value Date CK 24 08/12/2015 Impression: Completing course of therapy for MRSA vascular infection. Renal function has improved since discharge with estimated CrCL now >30. Discussed with Nephrology. Recommendation: 1. Increase daptomycin dose to 355 mg IV q 24 hours through 08/21. OPAT order placed. 2) Oral doxycycline 100 mg po bid for two weeks following completion of daptomycin. 3) Please ask facililty to repeat 24 hour urine collection for Cr (per Dr. Hernandez in Nephrology) 4) Pt is currently scheduled to return to Vascular and Nephrology clinics on 08/17. Given few remaining days of IV rx, I will not request ID clinic f/u. Please let us know if you need us to see her backin the clinic. ID Red team will continue to follow patient We will sign off. Please call us back if needed x 45' M.M. MD Matteo, pager [phone] Plan of Care - Olga Begum RN - 08/11/2015 6:19 PM EST Problem: Skin Integrity Impairment, Risk/Actual (Adult, Obstetrics) Goal: Identify Signs and Symptoms and Related Risk Factors Signs and symptoms and related risk factors are identified upon initiation of Human Response Clinical Practice Guideline (CPG) Outcome: Ongoing (Interventions Implemented as Appropriate) 08/11/151810 Skin Integrity Impairment, Risk/Actual Personal Related Risk Factors (Skin Integrity Impairment, Risk/Actual) extremes in age;stress Physiological Related Risk Factors (Skin Integrity Impairment, Risk/Actual) scar tissue;sensory impairment Treatment Related Related Risk Factors (Skin Integrity Impairment, Risk/Actual) invasive catheters;physical immobilization;surgery Goal: Skin Integrity/Wound Healing Patient will demonstrate the desired outcomes. Outcome: Ongoing (Interventions Implemented as Appropriate) 08/11/151810 Skin Integrity Impairment, Risk/Actual (Adult, Obstetrics) Skin Integrity/Wound Healing making progress toward outcome Problem: General Plan of Care Goal: Plan of Care Review Outcome: Ongoing (Interventions Implemented as Appropriate) 08/11/151810 Plan of Care Review Plan of Care Outcome Status ongoing (interventions implemented as appropriate) Progress progress toward functional goals as expected Coping/Psychosocial Response Interventions Plan of Care Reviewed with patient OUTCOME EVALUATION NOTE: OUTCOME SUMMARY: Pt went for cardiac cath today and received 2 stents through the right radius, wound vac drsg changed and wound vac machine switched over to a [facility] machine, PICC drsg changed, oliva removed at 1720, ptvoided successfully. PLAN MOVING FORWARD: Possible d/c to rehab facility Saturday INDIVIDUALIZED FALL PREVENTION: Pt is a 64 yo female from a rehab facility post Left AKA for management of a NSTEMI, pt states she has been doing well pivoting to a commode with x1/SB assist. Assistance: x1 with walker Supervision: Telemetry, call light within reach Surveillance: Rings appropriately CPG GOAL OUTCOME EVALUATION: Goal: Individualization and Mutuality Outcome: Ongoing (Interventions Implemented as Appropriate) Goal: Fall Prevention-Safe Patient Handling Outcome: Ongoing (Interventions Implemented as Appropriate) 08/11/15 0325 08/11/15 0904 08/11/15 1100 Musculoskeletal Interventions Activity/Level of Assistance -- -- bedrest with commode Positioning -- HOB up 15 degrees -- Self-Care Promotion adaptive equipment provided;independence encouraged while providing assistance -- -- Safety Interventions Safety Precautions/Fall Reduction -- environmental modification;fall reduction program maintained;lighting adjusted for task/safety;nonskid shoes/slippers when out of bed -- Andino Fall Risk History of Falling -- 0 -- Secondary Diagnosis -- 15 -- Ambulatory Aids -- 15 -- Intravenous Therapy/Heparin/Saline Lock -- 20 -- Gait/Transferring -- 10 -- Mental Status -- 0 -- Score -- 60 -- Activity and Safety Assistive Device -- -- Front wheel walker OTHER Andino Fall Risk -- High -- Goal: Infection Control Outcome: Ongoing (Interventions Implemented as Appropriate) 08/11/1532408/11/15 0904 Coping/Psychosocial Response Interventions Counseling emotional support provided -- Safety Interventions Isolation Precautions -- standard precautions maintained Infection Prevention -- rest/sleep promoted;promote handwashing;nutrition promoted;hydration promoted;environmental surveillance;blood glucose management Goal: Discharge Needs Assessment Outcome: Ongoing (Interventions Implemented as Appropriate) 08/11/15 1811 Discharge Needs Assessment Readmission Within the Last 30 Days current reason for admission unrelated to previous admission Discharge Facility/Level of Care Needs rehabilitation facility Consult Note - Akil Cobb RN - 08/11/2015 5:02 PM EST Images from the original note were not included. Certified Wound Care Nurse Note Situation: Return visit it see Carrie Hurst to roll changer her NPWT [employer] freedom pump to the [facility] Activ[facility] pump and to assess her skin for pressure ulcers. Per report, she has a pressure ulcer over her sacrum that was present on admission. Background: eD-H notes reviewed for history, admitting diagnosis and active problem list. 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 Wound Assessment and Care Provided: The NPWT pump was changed over to the [employer] Activac pump. She tolerated the changeover well. There is a large black foam visible in her left groin. She turned onto her right side. The MBS dressing was removed. See wound assessment and interventionsbelow. The following photo was taken of the area: Kane Score: 15 Last Pressure Ulcer Prevention assessment: Shift Pressure Ulcer Prevention Occiput: No Injury Thoracic Spine: No Injury Sacral: Existing Injury prior to this admission Ischial - left: No Injury Ischial - right: No Injury Heel - left: other (see comment) ( AKA) Heel - right: No Injury Elbow - left: No Injury Elbow - right: No Injury Device Sites: IV sites, oliva, oxygen tubing, ECG Leads Existing Wounds: Pressure Ulcer posterior coccyx (Active) Stage unstageable 08/11/2015 4:00 PM Dressing Appearance intact 08/11/2015 4:00 PM Pressure Ulcer Appearance slough 08/11/2015 4:00 PM Appearance Description (%) 100% slough 08/11/2015 4:00 PM Caty Wound Skin Area redness 08/11/2015 4:00 PM Length (Pressure Ulcer) (cm) 1 08/11/2015 4:00 PM Width (Pressure Ulcer) (cm) 1 08/11/2015 4:00 PM Depth (Pressure Ulcer) (cm) 0.2 08/11/2015 4:00 PM Tunneling (depth/location) 0 08/11/2015 4:00 PM Undermining (depth/location) 0 08/11/2015 4:00 PM Sinus Tract Depth (depth/location) 0 08/11/2015 4:00 PM Pressure Ulcer Wound Care cleansed with;wound clenser (specify) 08/11/2015 4:00 PM Periwound Care absorptive dressing applied 08/11/2015 4:00 PM Dressing Dressing removed;Dressing applied;foam;Mepilex Border 08/11/2015 4:00 PM Incision 07/24/15 Left lower leg (Active) Incision WDL WDL 08/11/2015 4:00 PM Appearance pink;scabbed;no drainage;no redness;no swelling;no tenderness;no warmth;sutures intact 08/11/2015 9:04 AM Drainage Amount none 08/10/2015 8:30 PM Dressing open to air 08/11/2015 9:04 AM Wound 07/27/15 Left groin (Active) Wound WDL WDL 08/11/2015 9:04 AM Dressing Appearance intact 08/11/2015 4:00 PM Area intact 08/11/2015 4:00 PM Dressing foam;transparent film 08/11/2015 4:00 PM Therapy Setting (Negative Pressure Wound Therapy) continuous therapy 08/11/2015 4:00 PM Pressure Setting (Negative Pressure Wound Therapy) 125 mmHg 08/11/2015 4:00 PM Dressing (Negative Pressure Wound Therapy) foam, black 08/11/2015 4:00 PM General Output (mL) 200 08/11/2015 4:00 PM Nutritional Status Wt Readings from Last 1 Encounters: 08/11/15 46.993 kg (103 lb 9.6 oz) Body mass index is 20.23 kg/(m^2). Labs Lab Results Component Value Date ALBUMIN 2.8* 08/10/2015 ALBUMIN 2.3* 07/28/2015 PREALBUMIN 10* 07/28/2015 WBC 9.7 08/11/2015 WBC 10.6* 08/10/2015 WBC 11.7* 08/03/2015 HGB 11.5 08/11/2015 HGB 12.0 08/10/2015 HGB 8.8* 08/03/2015 HCT 34.5 08/11/2015 HCT 35.0 08/10/2015 HCT 26.7* 08/03/2015 Nutritional Intake Nutrition Assessments Diet/Nutrition Prescription: NPO Fluids: adequate Current bed: VersaCare AIR. She can turn from side to side and keep the pressure off her sacrum, thus was left on a VersaCare AIR bed. Assessment: Unstageable sacral pressure ulcer that was present on admission. Wound Care Recommendations: Dressing Changes/Skin Care: Mepilex Border Sacrum dressing-change q3 days and PRN: 1. Cleanse skin with dermal wound cleanser. 2. Apply Mepilex Border Sacrum dressing. 3. Seal edges with skin prep. Pressure Ulcer Prevention: Sensory: Inspect foot, ankle and bony prominences every shift for pressure ulcer development. Inspect tube sites daily; reposition/secure to avoid pressure. Activity: Limit time OOB to the chair to 2 hour intervals. Use a [employer] chair cushion beneath patient at all times while in the chair. Reinforce teaching to shift weight every 15 minutes while in the chair. Nutrition: Evaluate nutrition/hydration status. Encourage patient to eat or drink nutritional supplements as ordered. Assist with snacks and meals as appropriate. Obtain a Nutrition consult if intake less than 75% of provided food. Mobility: Turn and reposition every 2 hours from side to side and document in ED-H. Place a pillow above and below sacral area to off load pressure to the sacrum Offload pressure from heel by placing pillows lengthwise beneath legs while in bed. Offload pressure from heels by adjusting length of foot of bed. VersaCare AIR bed ??? Use a single quilted chux and a single fitted sheet beneath patient ??? Turn and reposition every two hours. ??? Position hips at triangle icon on the inside of the bed rail. ??? Retract foot of bed to 1-2 inches from the feet to allow for decreased heel pressure. ??? If patient unable to reposition feet independently, elevate patients legs by placing 1-2 pillowslengthwise beneath their legs allowing the heels float over the surface of the bed. Friction and Shear: Reposition avoiding shear forces, utilizing maxislide, trendelenberg and max inflate (boost) feature on beds to assist with repositioning. Position hips at triangle icon on bed. Use skin prep on heels and elbows bid. Keep HOB less than or equal to 30 degrees. Use Nourishing Skin Cream after baths for extra dry skin. Wound Care Team will plan to follow: every M, W, F. Discussed plan with: /DEBBIE/PA: Hiren RN: Kimber Please contact AKIL COBB RN on pager [phone] or the wound care team at [phone] or pager [phone] with skin and wound care concerns or questions. Consult Note - Akil Cobb RN - 08/11/2015 1:01 PM EST Certified Wound Care Nurse Note Situation: Asked to see Carrie Hurst by Anthis, Elsie L, RN for a stage II pressure ulcer on her sacrum, wound in left groin with NPWT dressing in place. Background: eDH notes reviewed for history, admitting diagnosis and active problem list. She is s/p left AKA on 08.03.15. She was dc'd to rehab and initially did well, then developed SOB, admitted to an OSH and then transferred her on 08.09.15. I attempted to see her x 2 this am. She was first having an ECHO done, and then when I returned she was being transferred to the seed analysis laboratory assistant. A inpatient NPWT machine was ordered, as she has on her home pump. Per her family, the NPWT dressingwas changed yesterday at the outside hospital. Assessment: Unable to assess this am. She will need to have NPWT dressing changes to right groin every M, W, F. Discussed with Dr. Bassett who wishes to have this done by the Wound Care Team. Recommendations: Dressing Changes/Skin Care: Mepilex Border Sacrum dressing-change q3 days and PRN: 1. Cleanse skin with dermal wound cleanser. 2. Apply Mepilex Border Sacrum dressing. 3. Seal edges with skin prep. NPWT dressing changes M, W, F by CWCN's. Implement standard pressure ulcer prevention/treatment recommendations per the Adult Pressure Ulcer Prevention Guidelines. Keep turned side to side as much as possible, avoiding positioning on her back except for meals. Follow-up: A member of the wound care team will attempt to see this afternoon, and if not possible tomorrow. Discussed plan with: /DEBBIE/PA: Dr. Bassett RN: Kimber COBB RN Plan of Care - Elsie Sneed RN - 08/11/2015 3:28 AM EST Problem: General Plan of Care Goal: Plan of Care Review Outcome: Ongoing (Interventions Implemented as Appropriate) 08/11/15 0325 Plan of Care Review Plan of Care Outcome Status ongoing (interventions implemented as appropriate) Progress no change Coping/Psychosocial Response Interventions Plan of Care Reviewed with patient Goal: Fall Prevention-Safe Patient Handling Outcome: Ongoing (Interventions Implemented as Appropriate) 02202908/11/15 0218 08/11/15 0325 Musculoskeletal Interventions Activity/Level of Assistance bedrest with commode -- -- Positioning -- HOB up 15 degrees -- Self-Care Promotion -- -- adaptive equipment provided;independence encouraged while providing assistance Safety Interventions Safety Precautions/Fall Reduction commode/urinal/bedpan at bedside;environmental modification;familyat bedside;lighting adjusted for task/safety;low bed;nonskid shoes/slippers when out of bed;supervised activity -- -- Andino Fall Risk History of Falling 0 -- -- Secondary Diagnosis 15 -- -- Ambulatory Aids 15 -- -- Intravenous Therapy/Heparin/Saline Lock 20 -- -- Gait/Transferring 10 -- -- Mental Status 0 -- -- Score 60 -- -- Activity and Safety Assistive Device Front wheel walker -- -- OTHER Andino Fall Risk High -- -- Goal: Infection Control Outcome: Ongoing (Interventions Implemented as Appropriate) 08/10/15202908/11/15324 Coping/Psychosocial Response Interventions Counseling -- emotional support provided Safety Interventions Isolation Precautions -- standard precautions maintained Infection Prevention blood glucose management;environmental surveillance;hydration promoted;nutrition promoted;promote handwashing;rest/sleep promoted -- Comments: OUTCOME EVALUATION NOTE: OUTCOME SUMMARY: Patient arrived to floor via EMS, alert and oriented X4, family bedside. Tele initiated, pt orientedto room and call aparicio. Wound vac to left groin, occlusive dressing in place, continuous suction at 125mmHg, oliva in place draining clear urine. Xray confirms PICC placement, dsg CDI dated 08/03. IV team notified for dsg change. Pt reporting 2/10 pain at left AKA, denies other complaints. Stage II on coccyx, wound consult in place, Mepilex applied, q2 turns. Pt able to stand pivot to C w/ walker andone assist, tolerated well. Pt fatigued, I just want to sleep. 0420) Pt c/o heartburn, 2/10, slightly nauseated. notified, EKG performed, prn zofran 4mg iv given with good effect. No additional orders at this time, will closely monitor. PLAN MOVING FORWARD: Monitor labs, wound consult for stage II and vac management, PICC dsg change today-sp[facility] with [facility] team, maintain bleeding precautions, activity as tolerated, ?cath, diligent q2h turns. INDIVIDUALIZED FALL PREVENTION: Assistance: One assist with walker, stand pivot to BSC, Supervision: Intermittent, pt uses call aparicio appropriately, call aparicio within reach, family bedside. Surveillance: Purposeful hourly rounding. 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 HEMOGRAM Routine 08/13/2015 3:33 Results for this AM EST procedure are i n the results section. DIFFERENTIAL, AUTOMATED Routine 08/13/2015 3:33 R esults for this AM EST procedure are i n the results section. CBC (WITH DIFF) Routine 08/13/2015 3:33 AM EST POCT GLUCOSE Routine 08/13/2015 3:30 Results for this AM EST procedure are i n the results section. POCT GLUCOSE Routine 08/13/2015 12:43 Results for this AM EST procedure are i n the results section. POCT GLUCOSE Routine 08/12/2015 10:46 Results for this PM EST procedure are i n the results section. POCT GLUCOSE Routine 08/12/2015 8:41 Results for this PM EST procedure are i n the results section. POCT GLUCOSE Routine 08/12/2015 4:28 Results for this PM EST procedure are i n the results section. POCT GLUCOSE Routine 08/12/2015 12:28 Results for this PM EST procedure are i n the results section. EKG 12-LEAD Routine 08/12/2015 7:40 Non-ST elevation Results for this AM EST myocardial procedure are i n infarction the results (NSTEMI) section. POCT GLUCOSE Routine 08/12/2015 7:07 Results for this AM EST procedure are i n the results section. BMP W/FASTING GLUCOSE Routine 08/12/2015 4:40 Res ults for this AM EST procedure are i n the results section. HEMOGRAM Routine 08/12/2015 4:40 Results for this AM EST procedure are i n the results section. DIFFERENTIAL, AUTOMATED Routine 08/12/2015 4:40 R esults for this AM EST procedure are i n the results section. CARDIAC ENZYMES Routine 08/12/2015 4:40 Results f or this ([facility]/CGP) AM EST procedure are i n the results section. CBC (WITH DIFF) Routine 08/12/2015 4:40 AM EST POCT GLUCOSE Routine 08/12/2015 4:34 Results for this AM EST procedure are i n the results section. POCT GLUCOSE Routine 08/12/2015 1:09 Results for this AM EST procedure are i n the results section. POCT GLUCOSE Routine 08/11/2015 10:43 Results for this PM EST procedure are i n the results section. CARDIAC ENZYMES STAT 08/11/2015 8:54 Results f or this ([facility]/CGP) PM EST procedure are i n the results section. POCT GLUCOSE Routine 08/11/2015 8:18 Results for this PM EST procedure are i n the results section. POCT GLUCOSE Routine 08/11/2015 4:14 Results for this PM EST procedure are i n the results section. EKG 12-LEAD Routine 08/11/2015 2:31 Non-ST elevation Results for this PM EST myocardial procedure are i n infarction the results (NSTEMI) section. CARDIAC CATHETERIZATION Routine 08/11/2015 2:02 R esults for this PM EST procedure are i n the results section. POCT GLUCOSE Routine 08/11/2015 12:53 Results for this PM EST procedure are i n the results section. ECHOCARDIOGRAM COMPLETE Routine 08/11/2015 12:02 Non-ST elevat ion Results for this W CONTRAST PM EST myocardial procedure are i n infarction the results (NSTEMI) section. POCT GLUCOSE Routine 08/11/2015 11:49 Results for this AM EST procedure are i n the results section. POCT GLUCOSE Routine 08/11/2015 8:36 Results for this AM EST procedure are i n the results section. HEMOGRAM Routine 08/11/2015 6:20 Results for this AM EST procedure are i n the results section. DIFFERENTIAL, AUTOMATED Routine 08/11/2015 6:20 R esults for this AM EST procedure are i n the results section. CARDIAC ENZYMES Routine 08/11/2015 6:20 Results f or this ([facility]P) AM EST procedure are i n the results section. APTT STAT 08/11/2015 6:20 Results for this AM EST procedure are i n the results section. CBC (WITH DIFF) Routine 08/11/2015 6:20 AM EST TROPONIN Routine 08/11/2015 6:20 Results for this AM EST procedure are i n the results section. MAGNESIUM Routine 08/11/2015 6:20 Results for this AM EST procedure are i n the results section. BASIC METABOLIC PANEL Routine 08/11/2015 6:20 Res ults for this (NON-FASTING) AM EST procedure are in the results section. POCT GLUCOSE Routine 08/11/2015 4:35 Results for this AM EST procedure are i n the results section. EKG 12-LEAD STAT 08/11/2015 4:28 Non-ST elevation Results for this AM EST myocardial procedure are i n infarction the results (NSTEMI) section. APTT STAT 08/11/2015 2:00 Results for this AM EST procedure are i n the results section. TROPONIN STAT 08/10/2015 11:30 Results for this PM EST procedure are i n the results section. MAGNESIUM STAT 08/10/2015 11:30 Results for this PM EST procedure are i n the results section. COMPREHENSIVE METABOLIC STAT 08/10/2015 11:30 Results for this PANEL (NON-FASTING) PM EST procedur e are in the results section. POCT GLUCOSE Routine 08/10/2015 11:16 Results for this PM EST procedure are i n the results section. XR CHEST ONE VIEW Routine 08/10/2015 10:41 Result s for this PM EST procedure are i n the results section. EKG 12-LEAD STAT 08/10/2015 8:44 Non-ST elevation Results for this PM EST myocardial procedure are i n infarction the results (NSTEMI) section. HEMOGRAM Routine 08/10/2015 8:39 Results for this PM EST procedure are i n the results section. DIFFERENTIAL, AUTOMATED Routine 08/10/2015 8:39 R esults for this PM EST procedure are i n the results section. APTT STAT 08/10/2015 8:39 Results for this PM EST procedure are i n the results section. CBC (WITH DIFF) Routine 08/10/2015 8:39 PM EST POCT GLUCOSE Routine 08/10/2015 7:57 Results for this PM EST procedure are i n the results section. documented in this encounter Results SCAN DOC: STRUCTURAL STEEL DETAILER (08/14/2015 12:00 AM EST) Narrative This result has an attachment that is no t available. Scanning Provider MEDIA MGR SCAN EXT ORDR/RSLT POCT Glucose (08/13/2015 7:41 AM EST) athologist Signature POC Glucose 193 65 - 199 CERNER mg/dL MILLENNIUM Comment: Supplemental ranges: <140 mg/dL before meals <180 mg/dL all other times of the day Specimen Anatomical Collection Method Collection Time Receive d Time (Source) Location / / Volume Laterality Blood specimen 08/13/2015 7:41 AM 016 7:41 (specimen) EST AM EST Dontrell Mock MD POINT OF CARE TEST ORDERABLE S Performing Organization Address City/State/ZIP Code Phon e Number [place] [phone] CERNER MILLENNIUM (ABNORMAL) Differential, Automated (08/13/2015 3:33 AM EST) [facility] gist Method Time Signature Neutrophils % 65.9 % CERNER MILLENNIUM Neutr Abs (ANC) 5.93 1.50 - CERNER 6.30 MILLENNIUM x10(3)/mcL Lymphocytes % 17.7 % CERNER MILLENNIUM Lymphocytes Abs 1.6 1.0 - 3.6 CERNER x10(3)/mcL MILLENNIUM Monocytes % 8.5 % CERNER MILLENNIUM Monocyte Abs 0.8 0.2 - 1.0 CERNER x10(3)/mcL MILLENNIUM Eosinophils % 7.1 % CERNER MILLENNIUM Eosinophils Abs 0.6 (H) 0.0 - 0.5 CERNER x10(3)/mcL MILLENNIUM Basophils % 0.6 % CERNER MILLENNIUM Basophils Abs 0.0 0.0 - 0.2 CERNER x10(3)/mcL MILLENNIUM Immature Gran % 0.20 % CERNER MILLENNIUM Comment: Immature granulocytes(IG's)percentage an d absolute count will include metamyelocytes, myelocytes, and promyelo cytes. Blood smears from CBCs yielding IG's will be scanned manually for josephine post. If this scan disagrees with the automated IG or if promyelocytes are not ed, a manual differential will be performed. Rosenda Gran Abs 0.02 0.00 - 0.05 x10(3)/mcL CER NER MILLENNIUM Specimen Anatomical Collection Method Collection Time Receive d Time (Source) Location / / Volume Laterality Blood specimen 08/13/2015 3:33 AM 016 7:46 (specimen) EST AM EST Resulting Agency Comment Spec In Lab Cody Johnson MD HEMATOLOGY ORDERABLES Performing Organization Address City/[facility] [address]/[facility] [[email or web address]] [place] [address] CERNER MILLENNIUM (ABNORMAL) Hemogram (08/13/2015 3:33 AM EST) P athologist Signature WBC 9.0 4.0 - 10.0 CERNER x10(3)/mcL MILLENNIUM RBC 4.26 3.93 - CERNER 5.22 MILLENNIUM x10(6)/mcL Hemoglobin 12.5 11.2 - CERNER 15.7 gm/dL MILLENNIUM Hematocrit 38.2 34.0 - CERNER 45.0 % MILLENNIUM MCV 89.7 79.0 - CERNER 94.0 fL MILLENNIUM MCH 29.3 26.6 - CERNER 32.2 pg MILLENNIUM MCHC 32.7 32.0 - CERNER 36.5 gm/dL MILLENNIUM Platelets 395 (H) 145 - 370 CERNER x10(3)/mcL MILLENNIUM RDWSD 51.5 (H) 35.0 - CERNER 46.0 fL MILLENNIUM RDWCV 15.9 (H) 10.9 - CERNER 14.4 % MILLENNIUM MPV 10.8 9.0 - 12.0 CERNER fL MILLENNIUM Specimen Anatomical Collection Method Collection Time Receive d Time (Source) Location / / Volume Laterality Blood specimen 08/13/2015 3:33 AM 016 7:46 (specimen) EST AM EST Resulting Agency Comment Spec In Lab Cody Johnson MD HEMATOLOGY ORDERABLES Performing Organization Address City/[facility] [address]/[place] [address] CERNER MILLENNIUM POCT Glucose (08/13/2015 3:30 AM EST) athologist Signature POC Glucose 128 65 - 199 CERNER mg/dL MILLENNIUM Comment: Supplemental ranges: <140 mg/dL before meals <180 mg/dL all other times of the day Specimen Anatomical Collection Method Collection Time Receive d Time (Source) Location / / Volume Laterality Blood specimen 08/13/2015 3:30 AM 016 3:30 (specimen) EST AM EST Dontrell Mock MD POINT OF CARE TEST ORDERABLE S Performing Organization Address City/State/ZIP Code Phon e Number [address] CERNER MILLENNIUM POCT Glucose (08/13/2015 12:43 AM EST) athologist Signature POC Glucose 131 65 - 199 CERNER mg/dL MILLENNIUM Comment: Supplemental ranges: <140 mg/dL before meals <180 mg/dL all other times of the day Specimen Anatomical Collection Method Collection Time Receive d Time (Source) Location / / Volume Laterality Blood specimen 08/13/2015 12:43 6 (specimen) AM EST 12:43 AM EST Dontrell Mock MD POINT OF CARE TEST ORDERABLE S Performing Organization Address City/[facility] [address]/ZIP Code Phon e Number [address] CERNER MILLENNIUM POCT Glucose (08/12/2015 10:46 PM EST) athologist Signature POC Glucose 153 65 - 199 CERNER mg/dL [facility] Comment: Supplemental ranges: <140 mg/dL before meals <180 mg/dL all other times of the day Specimen Anatomical Collection Method Collection Time Receive d Time (Source) Location / / Volume Laterality Blood specimen 08/12/2015 10:46 6 (specimen) PM EST 10:46 PM EST Dontrell Mock MD POINT OF CARE TEST ORDERABLE S Performing Organization Address City/State/ZIP Code Phon e Number [address] CERNER MILLENNIUM (ABNORMAL) POCT Glucose (08/12/2015 8:41 PM EST) athologist Signature POC Glucose 279 (H) 65 - 199 CERNER mg/dL [facility] Comment: Supplemental ranges: <140 mg/dL before meals <180 mg/dL all other times of the day Specimen Anatomical Collection Method Collection Time Receive d Time (Source) Location / / Volume Laterality Blood specimen 08/12/2015 8:41 PM 016 8:41 (specimen) EST PM EST Dontrell Mock MD POINT OF CARE TEST ORDERABLE S Performing Organization Address City/State/ZIP Code Phon e Number [address] CERNER MILLENNIUM POCT Glucose (08/12/2015 4:28 PM EST) athologist Signature POC Glucose 168 65 - 199 CERNER mg/dL [facility] Comment: Supplemental ranges: <140 mg/dL before meals <180 mg/dL all other times of the day Specimen Anatomical Collection Method Collection Time Receive d Time (Source) Location / / Volume Laterality Blood specimen 08/12/2015 4:28 PM 016 4:28 (specimen) EST PM EST Dontrell Mock MD POINT OF CARE TEST ORDERABLE S Performing Organization Address City/[facility] [address]/ZIP Code Phon e Number [address] CERNER MILLENNIUM POCT Glucose (08/12/2015 12:28 PM EST) athologist Signature POC Glucose 197 65 - 199 CERNER mg/dL [facility] Comment: Supplemental ranges: <140 mg/dL before meals <180 mg/dL all other times of the day Specimen Anatomical Collection Method Collection Time Receive d Time (Source) Location / / Volume Laterality Blood specimen 08/12/2015 12:28 6 (specimen) PM EST 12:28 PM EST Dontrell Mock MD POINT OF CARE TEST ORDERABLE S Performing Organization Address City/[facility] [address]/ZIP Code Phon e Number [address] CERNER MILLENNIUM EKG 12 Lead (08/12/2015 7:40 AM EST) Patholo gist Method Time Signature Ventricular rate 83 BPM MUSE SYSTEM Atrial Rate 83 BPM MUSE SYSTEM P-R Interval 152 ms MUSE SYSTEM QRS Duration 88 ms MUSE SYSTEM Q-T Interval 384 ms MUSE SYSTEM QTC Calculated 451 ms MUSE SYSTEM (Bezet) Calculated P Madison 33 degrees MUSE SYSTEM Calculated R Madison 37 degrees MUSE SYSTEM Calculated T Madison -43 degrees MUSE SYSTEM INTERPRETATION Normal sinus rhythm MUSE SYSTEM Inferior infarct (cited on or before 10-AUG-2015) T wave inversion Anterior leads and inferior leads Abnormal ECG When compared with ECG of 11-AUG-2015 14:31, T wave inversion more evident in Anterior leads Confirmed by MD GONZALEZ, HERVE ([id number]) on 08/12/2015 4:44:00 PM Specimen Anatomical Collection Method Collection Time Receive d Time (Source) Location / / Volume Laterality 08/12/2015 7:40 AM 6 4:44 EST PM EST Baudilio Bassett MD ECG ORDERABLES Performing Organization Address City/State/ZIP Code Phon e Number MUSE SYSTEM POCT Glucose (08/12/2015 7:07 AM EST) athologist Signature POC Glucose 141 65 - 199 CERNER mg/dL MILLENNIUM Comment: Supplemental ranges: <140 mg/dL before meals <180 mg/dL all other times of the day Specimen Anatomical Collection Method Collection Time Receive d Time (Source) Location / / Volume Laterality Blood specimen 08/12/2015 7:07 AM 016 7:07 (specimen) EST AM EST Dontrell Mock MD POINT OF CARE TEST ORDERABLE S Performing Organization Address City/State/ZIP Code Phon e Number [place] [phone] [address] CERNER MILLENNIUM Differential, Automated (08/12/2015 4:40 AM EST) athologist Signature Neutrophils % 71.5 % CERNER MILLENNIUM Neutr Abs (ANC) 6.02 1.50 - CERNER 6.30 MILLENNIUM x10(3)/mcL Lymphocytes % 14.4 % CERNER MILLENNIUM Lymphocytes Abs 1.2 1.0 - 3.6 CERNER x10(3)/mcL MILLENNIUM Monocytes % 7.8 % CERNER MILLENNIUM Monocyte Abs 0.7 0.2 - 1.0 CERNER x10(3)/mcL MILLENNIUM Eosinophils % 5.7 % CERNER MILLENNIUM Eosinophils Abs 0.5 0.0 - 0.5 CERNER x10(3)/mcL MILLENNIUM Basophils % 0.4 % CERNER MILLENNIUM Basophils Abs 0.0 0.0 - 0.2 CERNER x10(3)/mcL MILLENNIUM Immature Gran % 0.20 % CERNER MILLENNIUM Comment: Immature granulocytes(IG's)percentage an d absolute count will include metamyelocytes, myelocytes, and promyelo cytes. Blood smears from CBCs yielding IG's will be scanned manually for concor dance. If this scan disagrees with the automated IG or if promyelocytes are not ed, a manual differential will be performed. Rosenda Gran Abs 0.02 0.00 - 0.05 x10(3)/mcL CER NER MILLENNIUM Specimen Anatomical Collection Method Collection Time Receive d Time (Source) Location / / Volume Laterality Blood specimen 08/12/2015 4:40 AM 016 4:44 (specimen) EST AM EST Resulting Agency Comment Spec In Lab Cody Johnson MD HEMATOLOGY ORDERABLES Performing Organization Address City/State/ZIP Code Phon e Number [place] [phone] CERNER MILLENNIUM (ABNORMAL) Hemogram (08/12/2015 4:40 AM EST) P athologist Signature WBC 8.4 4.0 - 10.0 CERNER x10(3)/mcL MILLENNIUM RBC 3.90 (L) 3.93 - CERNER 5.22 MILLENNIUM x10(6)/mcL Hemoglobin 11.3 11.2 - CERNER 15.7 gm/dL MILLENNIUM Hematocrit 35.0 34.0 - CERNER 45.0 % MILLENNIUM MCV 89.7 79.0 - CERNER 94.0 fL MILLENNIUM MCH 29.0 26.6 - CERNER 32.2 pg MILLENNIUM MCHC 32.3 32.0 - CERNER 36.5 gm/dL MILLENNIUM Platelets 334 145 - 370 CERNER x10(3)/mcL MILLENNIUM RDWSD 51.3 (H) 35.0 - CERNER 46.0 fL MILLENNIUM RDWCV 15.9 (H) 10.9 - CERNER 14.4 % MILLENNIUM MPV 10.5 9.0 - 12.0 CERNER fL MILLENNIUM Specimen Anatomical Collection Method Collection Time Receive d Time (Source) Location / / Volume Laterality Blood specimen 08/12/2015 4:40 AM 016 4:44 (specimen) EST AM EST Resulting Agency Comment Spec In Lab Cody Johnson MD HEMATOLOGY ORDERABLES Performing Organization Address City/State/[place] [address] CERNER MILLENNIUM (ABNORMAL) BMP w/fasting Glucose (08/12/2015 4:40 AM EST) athologist Signature Glucose 160 (H) 65 - 99 CERNER Fasting mg/dL MILLENNIUM Comment: ?Fasting* Glucose Interpretive C riteria Normal ?65-99 mg/dL Impaired Fasting glucose ?100-125 mg/dL Consistent with Diabetes Mellitus ? >or= 126 mg/dL *Fasting is defined as no caloric intake for at least 8 hours In the absence of unequivocal hypergly cemia a plasma glucose value of >or= 126 mg/dL should be repeated on a subseq uent day. Diagnosis and Classification of Diabetes Mellitus, Position Statement from the [place] [employer]. ??Diabete s Care, Volume 33, Supplement 1, Jul 2009 BUN 17 8 - 18 mg/dL CERNER MILLENNIUM Creatinine 0.98 0.70 - 1.20 mg/dL CERNER MILL ENNIUM Comment: Please note that the pediatric reference intervals supplied above were not validated at [facility]. Results from pediatri c patients should be interpreted in conjunction to the patient's age, height and muscle mass. Sodium 139 135 - 145 mmol/L CERNER KINGSLEY NIUM Potassium 3.7 3.5 - 5.0 mmol/L CERNER KINGSLEY NIUM Comment: Please note: ??Patients with WBC >100,00 0 may have falsely elevated Potassium levels. ??For accurate Potassium quantif ication in these patients send serum separator tube (gold top) for subsequent determinations. ??Contact the Clinical Chemistry Laboratory if there are any qu estions. Chloride 100 98 - 107 mmol/L CERNER MILLENN IUM CO2 27 22 - 31 mmol/L CERNER MILLENNI UM Anion Gap 12 5 - 15 mmol/L CERNER MILLENNIU M Calcium 8.2 (L) 8.5 - 10.5 mg/dL CERNER KINGSLEY NIUM Estimated GFR 57 (L) >=60 CERNER MILLENNIU M Comment: This estimated GFR (eGFR) value was calc ulated using the MDRD equation which has been validated on patients between t he ages of 18 and 70. The MDRD should not be used to assess kidney function in patients < 18 years of age or in patients with extremes of body mass, or in patients with acute kidney failure. This value should be multiplied by 1.2 f or patients. For further information please copy and past e the following links into your internet browser. [email or web address]/DHnkdep http://DyMynd/DHMCnkf Specimen Anatomical Collection Method Collection Time Receive d Time (Source) Location / / Volume Laterality Blood specimen 08/12/2015 4:40 AM 016 4:44 (specimen) EST AM EST Resulting Agency Comment Spec In Lab Baudilio Bassett MD CHEMISTRY ORDERABLES Performing Organization Address City/State/ZIP Code Phon e Number [place] [phone] CERNER MILLENNIUM (ABNORMAL) Cardiac Enzymes (08/12/2015 4:40 AM EST) athologist Signature Troponin-T 0.83 (H) <=0.03 CERNER ng/mL MILLENNIUM Comment: 0.03 ng/mL: Represents the 99th percenti le upper reference limit for normals. >0.03 ng/mL: Elevated cardiac troponin T level indicative of myocardial damage. Diagnosis of acute, evolving or recent M I requires a typical rise and gradual fall of cTnT with at least ONE of the fo llowing: a) Ischemic symptoms b) Development of pathologic Q waves on the ECG c) ECG changes indicative of eschemia (S -T segment elevation/depression) d) Coronary artery intervention Serial bloods should be obtained for epifanio ting on admission, at 6 to 9 hrs and again at 12 to 24 hrs if earlier samples are negative and the clinical index of suspicion is high. Reference: [Myocardial infarction redefined? a consensus document of the Joint Society of Cardiology/[place] [employer] Committee for the redefinition of myocardial infarction. ? ?Journal of the [place] [employer] 2000; 36: 959-969] CK, Total 24 0 - 160 unit/L CERNER MILLENNI UM Specimen Anatomical Collection Method Collection Time Receive d Time (Source) Location / / Volume Laterality Blood specimen 08/12/2015 4:40 AM 016 4:44 (specimen) EST AM EST Resulting Agency Comment Spec In Lab Baudilio Bassett MD CHEMISTRY ORDERABLES Performing Organization Address City/[facility] [address]/[facility] Phon e Number [address] CERNER MILLENNIUM POCT Glucose (08/12/2015 4:34 AM EST) P athologist Signature POC Glucose 149 65 - 199 CERNER mg/dL MILLENNIUM Comment: Supplemental ranges: <140 mg/dL before meals <180 mg/dL all other times of the day Specimen Anatomical Collection Method Collection Time Receive d Time (Source) Location / / Volume Laterality Blood specimen 08/12/2015 4:34 AM 016 4:34 (specimen) EST AM EST Baudilio Bassett MD POINT OF CARE TEST ORDERABLE S Performing Organization Address City/[facility] [address]/[facility] Phon e Number [address] CERNER MILLENNIUM POCT Glucose (08/12/2015 1:09 AM EST) P athologist Signature POC Glucose 141 65 - 199 CERNER mg/dL MILLENNIUM Comment: Supplemental ranges: <140 mg/dL before meals <180 mg/dL all other times of the day Specimen Anatomical Collection Method Collection Time Receive d Time (Source) Location / / Volume Laterality Blood specimen 08/12/2015 1:09 AM 016 1:09 (specimen) EST AM EST Baudilio Bassett MD POINT OF CARE TEST ORDERABLE S Performing Organization Address City/[facility] [address]/ZIP Code Phon e Number [address] CERNER MILLENNIUM POCT Glucose (08/11/2015 10:43 PM EST) athologist Signature POC Glucose 159 65 - 199 CERNER mg/dL [facility] Comment: Supplemental ranges: <140 mg/dL before meals <180 mg/dL all other times of the day Specimen Anatomical Collection Method Collection Time Receive d Time (Source) Location / / Volume Laterality Blood specimen 08/11/2015 10:43 6 (specimen) PM EST 10:43 PM EST Baudilio Bassett MD POINT OF CARE TEST ORDERABLE S Performing Organization Address City/[facility] [address]/ZIP Code Phon e Number [address] CERNER MILLENNIUM (ABNORMAL) Cardiac Enzymes (08/11/2015 8:54 PM EST) athologist Signature Troponin-T 0.68 (H) <=0.03 CERNER ng/mL [facility] Comment: 0.03 ng/mL: Represents the 99th percenti le upper reference limit for normals. >0.03 ng/mL: Elevated cardiac troponin T level indicative of myocardial damage. Diagnosis of acute, evolving or recent M I requires a typical rise and gradual fall of cTnT with at least ONE of the fo llowing: a) Ischemic symptoms b) Development of pathologic Q waves on the ECG c) ECG changes indicative of eschemia (S -T segment elevation/depression) d) Coronary artery intervention Serial bloods should be obtained for epifanio ting on admission, at 6 to 9 hrs and again at 12 to 24 hrs if earlier samples are negative and the clinical index of suspicion is high. Reference: [Myocardial infarction redefined? a consensus document of the Joint Society of Cardiology/[place] o [employer] Committee for the redefinition of myocardial infarction. ? ?Journal of the [place] [employer] 2000; 36: 959-969] CK, Total 26 0 - 160 unit/L CERNER MILLENNI UM Specimen Anatomical Collection Method Collection Time Receive d Time (Source) Location / / Volume Laterality Blood specimen 08/11/2015 8:54 PM 016 9:00 (specimen) EST PM EST Resulting Agency Comment Spec In Lab Baudilio Bassett MD CHEMISTRY ORDERABLES Performing Organization Address City/[facility] [address]/ZIP Code Phon e Number [address] CERNER MILLENNIUM (ABNORMAL) POCT Glucose (08/11/2015 8:18 PM EST) P athologist Signature POC Glucose 267 (H) 65 - 199 CERNER mg/dL [facility] Comment: Supplemental ranges: <140 mg/dL before meals <180 mg/dL all other times of the day Specimen Anatomical Collection Method Collection Time Receive d Time (Source) Location / / Volume Laterality Blood specimen 08/11/2015 8:18 PM 016 8:18 (specimen) EST PM EST Baudilio Bassett MD POINT OF CARE TEST ORDERABLE S Performing Organization Address [facility] [address]/ZIP Code Phon e Number [address] CERNER MILLENNIUM POCT Glucose (08/11/2015 4:14 PM EST) P athologist Signature POC Glucose 152 65 - 199 CERNER mg/dL [facility] Comment: Supplemental ranges: <140 mg/dL before meals <180 mg/dL all other times of the day Specimen Anatomical Collection Method Collection Time Receive d Time (Source) Location / / Volume Laterality Blood specimen 08/11/2015 4:14 PM 016 4:14 (specimen) EST PM EST Baudilio Bassett MD POINT OF CARE TEST ORDERABLE S Performing Organization Address City/[facility] [address]/ZIP Code Phon e Number [address] CERNER [facility] EKG 12 Lead (08/11/2015 2:31 PM EST) Component Value Ref Range Test Analysis Performed Pathologis t Method Time At Signature Ventricular rate 77 BPM MUSE SYSTEM Atrial Rate 77 BPM MUSE SYSTEM P-R Interval 138 ms MUSE SYSTEM QRS Duration 84 ms MUSE SYSTEM Q-T Interval 400 ms MUSE SYSTEM QTC Calculated 452 ms MUSE SYSTEM (Bezet) Calculated P Madison 65 degrees MUSE SYSTEM Calculated R Madison 36 degrees MUSE SYSTEM Calculated T Madison -105 degrees MUSE SYSTEM INTERPRETATION Normal sinus rhythm MUSE SYSTEM Inferior infarct (cited on or before 10-AUG-2015) Poor R wave progression , ??Cannot rule out Anterior infarct Nonspecific T wave abnormality Abnormal ECG When compared with ECG of 11-AUG-2015 04:28, No significant change was found Confirmed by MD ROTH ALAN ([id number]) on 08/11/2015 3:50:56 PM Specimen Anatomical Collection Method Collection Time Receive d Time (Source) Location / / Volume Laterality 08/11/2015 2:31 PM 6 3:50 EST PM EST Baudilio Bassett MD ECG ORDERABLES Performing Organization Address City/State/ZIP Code Phon e Number MUSE SYSTEM CARDIAC CATHETERIZATION (08/11/2015 2:02 PM EST) Specimen (Source) Anatomical Location Collection Method / Collectio n Time Received Time / Laterality Volume Narrative CARDIOMAC SYSTEM - 08/12/2015 10:[address] ?[facility] ? Cardiac Cathete rization/Intervention Report ? Patient Name: Carrie Hurst. ? Procedure Date: 08/11/2015 ? A #: [id number] ? Primary Physician: Coylewright, Shannan J ? Case #: [id number] ? File Name: [id number] ? Catheterization Order Number: [id number] ? [facility] ? Final Report [place], [place] ? Patient Name: ? Carrie G. No yes ?ID#: ?[id number] ? : ?1950 ? Procedure Date: ? February 4, 201 6 ? Case #: ? [id number] ? Room: ? 5 ? Case Physician: ? Shannan johnson M.D. ?Start: ?12:30 ?Fellow: ? Sallie woodruff M.D. ? Admission: ??08/10/2015 ? Referring ? Gordy davis M.D. ? Physicians: ?Manoj Ferguson M.D. ? Procedures: ?* Coronary Angiography ?* Left Heart Catheterization ?* Coronary Angioplasty ?* Coronary Stent Insertion ?* Vascular Closure Device Deplo yment ? History ?Carrie Hurst is a 64 year old woman. She has hypertension and a ?family history of coronary jaun ry disease. The patient has ?hypercholesterolemia managed wi lipid therapy. She has insulin ?dependent diabetes mellitus. e patient has unstable angina, positive ?troponin and a prior history of coronary artery disease. She is status ?post a recent myocardial infarc tion. The patient has a history of an ?ejection fraction less than or equal to 35%, congestive heart failure ?during this admission and ische lori cardiomyopathy. She has mitral ?regurgitation. The patient has a history of a heart murmur. She has a ?history of peripheral vascular disease with critical limb ischemia. The ?patient has a history of an abn ormal EKG, an abnormal stress test and an ?abnormal echocardiogram. She al so has a history of renal insufficiency. ?Prior to the initiation of this procedure, the patient was designated as ?ASA Class IV. ? Patient Status at Catheterization: ?The patient presented with: non -STEMI (w/i 7 days). [place] ?[employer] angina c lass was IV. This patient was on beta ?blockers prior to the procedure . An echo stress test was performed and ?results were Positive and Inter mediate Risk ischemia assessment. ? Technique: ?A 6 SLFr sheath was inserted in the right radial artery utilizing the ?Seldinger technique. The left c oronary artery was injected utilizing a ?5Fr TIG 4.0 catheter. A TIG 4.0 catheter was used to inject the right ?coronary artery. Left ventricul ar pressure was performed with a 5Fr TIG ?4.0 catheter. Coronary angiopla sty and coronary stent insertion were ?performed and the equipment uti lized will be described in the ?intervention summary section. 5 ,000 units of heparin were administered. ?Intracoronary nitroglycerin was given during this case. A total of 200cc ?of Omnipaque were opened, 130cc of Omnipaque were administered and 70cc ?of Omnipaque were wasted. Radia tion: Fluoro time was 22.4 minutes, dose ?area product was 64,566 mGYcm2 and air kerma was 1,508 mGY. ?The patient received the follow ing medications prior to and during the ?procedure: Aspirin (any), Clopi dogrel and Unfractionated Heparin (any). ? Hemodynamics: ?Left Heart Pressures ? Resting: ? Syst D iast ? EDP ?a ?v ? m ?Ao 115 ?? 68 ?87 ?LV ? 10 ?Comments: ??There was no signif icant gradient on pullback from LV to ? ascending aorta . ? Coronary Angiography: ?Dominance: Left ?Left Main ? There was a 20% single d iscrete stenosis of the distal segment of ? the left main artery. ?? The left main was large. ?Left Anterior Descending ? There was mild diffuse d isease of the entire vessel segment of the ? left anterior descending artery (LAD). ??The LAD was large. ??The mid ? segment of the LAD had a multiple discrete 45% stenoses. ?Left Circumflex ? There was mild diffuse d isease of the proximal segment of the left ? circumflex artery (LCX). ??The LCX was large. ??The distal segment of ? the LCX had a single dis crete 70% stenosis. ? There was a 60% single d iscrete stenosis of the ostial segment of ? the first obtuse margina l branch (OM1) of the LCX. ??The OM1 was ? small. ? There was an 85% single discrete stenosis of the mid 1 segment of ? the first left posterola teral branch (LPL1) of the LCX. ??The LPL1 ? was large. ??The mid 2 s egment of the LPL1 had 90% stenosis. ?Right Coronary Artery ? There was a single discr ete total occlusion of the mid segment of ? the right coronary arter y (RCA). ??The RCA was small. ??Distal flow ? was via collaterals from the LAD and collaterals from the LCX. ?Ramus ? There was mild diffuse d isease of the entire vessel segment of the ? ramus. ??The ramus was m oderate in size. ? Indication for Intervention: ?Coronary intervention was indic ated for treatment of a critical lesion ?post a myocardial infarction. L eft ventricular Ejection Fraction was ?estimated at 30 percent. The pr iority for the procedure was Urgent. The ?NCDR indication for the procedu re was PCI for high risk Non-STEMI or ?unstable angina. ? Intervention Summary: ?Left Circumflex Artery ? Distal 70% ? Angioplasty was performed on the 70% stenosis in the distal ? segment of the LCX. This was a de isabelle lesion. According to ? the ACC/AHA cla ssification system, this lesion was a type B1 ? moderate risk l esion. Vessel flow pre intervention was MORENO 3. ? Angioplasty was accomplished through a 6 Fr EBU 3.5 guide ? utilizing an EU PHORA 12 MM balloon with a maximum size of ? 2.00mm and a ma ximum inflation pressure of 14 atmospheres. ? The final outco me was defined as successful. The residual ? stenosis follow ing this intervention was 10%. The final MORENO ? flow was 3. ?First Left Posterolateral Branc h of the LCX ? Mid 1 85% ? Stent insertion was performed on the 85% stenosis in the mid 1 ? segment of the LPL1. This was a de isabelle lesion. This lesion ? was designated a type B2 high risk lesion based on ACC/AHA ? classification system. Primary prevention of restenosis was ? the indication for stent insertion. This was the culprit ? lesion. Vessel flow pre intervention was MORENO 3. ? Stent insertion was accomplished through a 6 Fr. EBU 3.5 ? guide. ??The le romario was predilated with a 2.25mm EUPHORA 12 MM ? balloon with a maximum inflation pressure of 12 atmospheres. ? A premounted 2. 25 x 24 mm Promus Premier (DEEPTHI) was deployed ? with a maximum inflation pressure of 14 atmospheres. ? The final outco me was defined as successful. A coronary ? arteriolar vaso dilator was administered as part of the ? intervention on this lesion. There was no residual stenosis ? following this intervention. The final MORENO flow was 3. Events ? included no ref low. ? Mid 2 90% ? Stent insertion was performed on the 90% stenosis in the mid 2 ? segment of the LPL1. This was a de isabelle lesion. According to ? the ACC/AHA cla ssification system, this lesion was a type B2 ? high risk lesio n. Primary prevention of restenosis was the ? indication for stent insertion. Vessel flow pre intervention ? was MORENO 3. ? Stent insertion was accomplished through a 6 Fr. EBU 3.5 ? guide. ??The le romario was predilated with a 2.00mm EUPHORA 12 MM ? balloon with a maximum inflation pressure of 14 atmospheres. ? A premounted 2. 25 x 20 mm Promus Premier (DEEPTHI) was deployed ? with a maximum inflation pressure of 14 atmospheres. ? The final outco me was defined as successful. There was no ? residual stenos is following this intervention. The final MORENO ? flow was 3. ? Vascular Access: ?Vascular Access Management: ? Mechanical Compression o f the right radial artery access site was ? performed. ? Conclusions: ?* Two vessel coronary artery di sease (LCX and RCA) ?* Successful stent insertion of the mid 2 LPL1 lesion ?* Successful stent insertion of the mid 1 LPL1 lesion ?* Successful angioplasty of the distal LCX lesion ? Complications/Events: ?The patient had no complication s during these procedures. ? Recommendations: ?Based upon the results of this procedure, it was recommended that the ?patient have a stent inserted. The patient's medical regimen was changed ?as follows: Drug eluting stent implanted. ??Recommend aspirin 81 mg daily ?and clopidogrel 75 mg daily for at least 12 months after PCI. She has a ?high risk of late stent thrombo sis, and if tolerated, I recommend ?prolonged DAPT. ? Comments: ?Radial access: ?Access was obtained in the righ t radial artery using micropuncture ?technique after confirming a no rmal Allens test. ??A 0.035 Wholey wire was ?used to navigate the aortic arc h vessels and to track a 5F TIG 4.0 ?catheter to the aortic root. ?? At the conclusion of the case, all sheaths ?and catheters were removed and a Terumo Band was applied for hemostasis ?over the radial access site. ?? Neurovascular supply to the hand was intact ?at the conclusion of the case. ?I met with the patient and her family in her room following procedure to ?review results. I also reviewed with Dr Bassett, and appreciated his ?presence in the seed analysis laboratory assistant prior to PCI to assist with decision making. ?The attending physician was margarito woodruff for the entire procedure. ?Dr. Shannan Thornton, Phill perf ormed the coronary angiography, left ?heart catheterization, stent inser tion-coronary, vascular closure device ?and angioplasty-coronary. ? Shannan Thornton, ? M.D. ? Electronically Signed by: Shannan schafer M.D. ? Report Finalized: 08/12/2015 ??10:19 ? Procedure Note Shannan Thornton MD - 08/12/2015For matting of this note might be different from the original. [facility] Cardiac Catheterization/Intervention Re port Patient Name: Javier Hurstette ShaylaOrlin Procedure Date: 08/11/2015 A #: [id number] Primary Physician: Shannan Thornton Case #: [id number] File Name: [id number] Catheterization Order Number: [id number] [facility] Final Report [place], [place] Patient Name: Carrie Hurst ID#: [id number] : 1950 Procedure Date: August 11, 2015 Case #: [id number] Room: 5 Case Physician: Edgar Rhodes Start: 12:30 Fellow: Sallie Colunga M.D. Admission: 0 08/10/2015 Referring Gordy Moon M.D. Physicians: Rosy Ferguson M.D. Procedures: * Coronary Angiography * Left Heart Catheterization * Coronary Angioplasty * Coronary Stent Insertion * Vascular Closure Device Deployment History Carrie Hurst is a 64 year old woma n. She has hypertension and a family history of coronary artery disea se. The patient has hypercholesterolemia managed with lipid therapy. She has insulin dependent diabetes mellitus. The patien t has unstable angina, positive troponin and a prior history of coronar y artery disease. She is status post a recent myocardial infarction. Th e patient has a history of an ejection fraction less than or equal to 35%, congestive heart failure during this admission and ischemic card iomyopathy. She has mitral regurgitation. The patient has a histor y of a heart murmur. She has a history of peripheral vascular disease with critical limb ischemia. The patient has a history of an abnormal EK G, an abnormal stress test and an abnormal echocardiogram. She also has a history of renal insufficiency. Prior to the initiation of this procedu re, the patient was designated as ASA Class IV. Patient Status at Catheterization: The patient presented with: non-STEMI ( w/i 7 days). [place] [employer] angina class was IV. This patient was on beta blockers prior to the procedure. An ech o stress test was performed and results were Positive and Intermediate Risk ischemia assessment. Technique: A 6 SLFr sheath was inserted in the rig ht radial artery utilizing the Seldinger technique. The left coronary artery was injected utilizing a 5Fr TIG 4.0 catheter. A TIG 4.0 cathete r was used to inject the right coronary artery. Left ventricular press ure was performed with a 5Fr TIG 4.0 catheter. Coronary angioplasty and coronary stent insertion were performed and the equipment utilized wi ll be described in the intervention summary section. 5,000 uni ts of heparin were administered. Intracoronary nitroglycerin was given d uring this case. A total of 200cc of Omnipaque were opened, 130cc of Omni paque were administered and 70cc of Omnipaque were wasted. Radiation: Fl uoro time was 22.4 minutes, dose area product was 64,566 mGYcm2 and air kerma was 1,508 mGY. The patient received the following medi cations prior to and during the procedure: Aspirin (any), Clopidogrel a nd Unfractionated Heparin (any). Hemodynamics: Left Heart Pressures Resting: Syst Diast EDP a v m Ao 115 68 87 LV 10 Comments: There was no significant grad ient on pullback from LV to ascending aorta. Coronary Angiography: Dominance: Left Left Main There was a 20% single discrete stenosi s of the distal segment of the left main artery. The left main was large. Left Anterior Descending There was mild diffuse disease of the e ntire vessel segment of the left anterior descending artery (LAD). The LAD was large. The mid segment of the LAD had a multiple discr ete 45% stenoses. Left Circumflex There was mild diffuse disease of the p roximal segment of the left circumflex artery (LCX). The LCX was la rge. The distal segment of the LCX had a single discrete 70% steno sis. There was a 60% single discrete stenosi s of the ostial segment of the first obtuse marginal branch (OM1) of the LCX. The OM1 was small. There was an 85% single discrete stenos is of the mid 1 segment of the first left posterolateral branch (L PL1) of the LCX. The LPL1 was large. The mid 2 segment of the LPL 1 had 90% stenosis. Right Coronary Artery There was a single discrete total occlu romario of the mid segment of the right coronary artery (RCA). The RC A was small. Distal flow was via collaterals from the LAD and co llaterals from the LCX. Ramus There was mild diffuse disease of the e ntire vessel segment of the ramus. The ramus was moderate in size. Indication for Intervention: Coronary intervention was indicated for treatment of a critical lesion post a myocardial infarction. Left vent ricular Ejection Fraction was estimated at 30 percent. The priority f or the procedure was Urgent. The NCDR indication for the procedure was P CI for high risk Non-STEMI or unstable angina. Intervention Summary: Left Circumflex Artery Distal 70% Angioplasty was performed on the 70% st enosis in the distal segment of the LCX. This was a de isabelle lesion. According to the ACC/AHA classification system, this lesion was a type B1 moderate risk lesion. Vessel flow pre i ntervention was MORENO 3. Angioplasty was accomplished through a 6 Fr EBU 3.5 guide utilizing an EUPHORA 12 MM balloon with a maximum size of 2.00mm and a maximum inflation pressure of 14 atmospheres. The final outcome was defined as succes sful. The residual stenosis following this intervention wa s 10%. The final MORENO flow was 3. First Left Posterolateral Branch of the LCX Mid 1 85% Stent insertion was performed on the 85 % stenosis in the mid 1 segment of the LPL1. This was a de isabelle lesion. This lesion was designated a type B2 high risk lesi on based on ACC/AHA classification system. Primary preventi on of restenosis was the indication for stent insertion. Thi s was the culprit lesion. Vessel flow pre intervention wa s MORENO 3. Stent insertion was accomplished throug h a 6 Fr. EBU 3.5 guide. The lesion was predilated with a 2.25mm EUPHORA 12 MM balloon with a maximum inflation pressu re of 12 atmospheres. A premounted 2.25 x 24 mm Promus Premie r (DEEPTHI) was deployed with a maximum inflation pressure of 14 atmospheres. The final outcome was defined as succes sful. A coronary arteriolar vasodilator was administered as part of the intervention on this lesion. There was no residual stenosis following this intervention. The final MORENO flow was 3. Events included no reflow. Mid 2 90% Stent insertion was performed on the 90 % stenosis in the mid 2 segment of the LPL1. This was a de isabelle lesion. According to the ACC/AHA classification system, this lesion was a type B2 high risk lesion. Primary prevention of restenosis was the indication for stent insertion. Vessel flow pre intervention was MORENO 3. Stent insertion was accomplished throug h a 6 Fr. EBU 3.5 guide. The lesion was predilated with a 2.00mm EUPHORA 12 MM balloon with a maximum inflation pressu re of 14 atmospheres. A premounted 2.25 x 20 mm Promus Premie r (DEEPTHI) was deployed with a maximum inflation pressure of 14 atmospheres. The final outcome was defined as succes sful. There was no residual stenosis following this interv ention. The final MORENO flow was 3. Vascular Access: Vascular Access Management: Mechanical Compression of the right rad ial artery access site was performed. Conclusions: * Two vessel coronary artery disease (L CX and RCA) * Successful stent insertion of the mid 2 LPL1 lesion * Successful stent insertion of the mid 1 LPL1 lesion * Successful angioplasty of the distal LCX lesion Complications/Events: The patient had no complications during these procedures. Recommendations: Based upon the results of this procedur e, it was recommended that the patient have a stent inserted. The fuad ent's medical regimen was changed as follows: Drug eluting stent implante d. Recommend aspirin 81 mg daily and clopidogrel 75 mg daily for at leas t 12 months after PCI. She has a high risk of late stent thrombosis, and if tolerated, I recommend prolonged DAPT. Comments: Radial access: Access was obtained in the right radial artery using micropuncture technique after confirming a normal All ens test. A 0.035 Wholey wire was used to navigate the aortic arch vessel s and to track a 5F TIG 4.0 catheter to the aortic root. At the con clusion of the case, all sheaths and catheters were removed and a Terumo Band was applied for hemostasis over the radial access site. Neurovascu lar supply to the hand was intact at the conclusion of the case. I met with the patient and her family i n her room following procedure to review results. I also reviewed with Dr Bassett, and appreciated his presence in the seed analysis laboratory assistant prior to PCI t o assist with decision making. The attending physician was present for the entire procedure. Dr. Shannan Thornton M.D. performed the coronary angiography, left heart catheterization, stent insertion- coronary, vascular closure device and angioplasty-coronary. Shannan Thornton M.D. Electronically Signed by: Shannan schafer M.D. Report Finalized: 08/12/2015 10:19 Shannan Thornton MD CARDIAC CATH ORDERABLES Performing Organization Address City/State/ZIP Code Phon e Number CARDIOMAC SYSTEM POCT Glucose (08/11/2015 12:53 PM EST) P athologist Signature POC Glucose 141 65 - 199 CERNER mg/dL [facility] Comment: Supplemental ranges: <140 mg/dL before meals <180 mg/dL all other times of the day Specimen Anatomical Collection Method Collection Time Receive d Time (Source) Location / / Volume Laterality Blood specimen 08/11/2015 12:53 6 (specimen) PM EST 12:53 PM EST Baudilio Bassett MD POINT OF CARE TEST ORDERABLE S Performing Organization Address City/State/[place] [address] [facility] ECHOCARDIOGRAM COMPLETE W CONTRAST (08/11/2015 12:02 PM EST) athologist Signature EF 30 [facility] Specimen (Source) Anatomical Location Collection Method / Collectio n Time Received Time / Laterality Volume 08/11/2015 Narrative [facility] - 08/11/2015 1:28 PM EST Procedure: ?Transthoracic Echocardiogram Patient: ?ARIS Mcguire ?(Age): 1950(64y) Med Rec#: ? [id number] ?Sex: ?F ? Site Loc: ? [facility] ?Ht / Wt: ??152(cm)/47(kg) Pt. Loc: ?[facility] ? BSA: ?1.41 Study Date: ?? 08/11/2015 ?Pt. Type: Inpatient Tape: ? Referring: Baudilio Bassett Referring: ROSY FERGUSON Reading: Dontrell Mock ([id number]) Assistant Auto Center Manager: Rajinder Laws MS, [facility] Assistant Auto Center Manager 2: Omkar Parmar MD Interpreting Fellow: Beka Garcia ([id number] ) Diagnosis: *ICD-10-PCS Non-ST elevation (NSTEMI) m yocardial infarction (I21.4) CPT Codes: *Echo Full (37458) *Spectral Doppler (69125) *Color Doppler (10376) BP: ? 138/80 SUMMARY: 1. Left ventricular chamber size and wal l thickness are normal. Global left ventricular systolic function is se verely reduced with an estimated ejection fraction of 30%. There are left ventricular segmental wall motion abnormalities present, as shown i n the diagram below. 2. The right ventricle is normal in size . Right ventricular global systolic function is probably normal. Th e estimated pulmonary artery systolic pressure is 42 mmHg. 3. The mitral valve leaflets are mildly thickened with incomplete coaptation. There is central jet of mode rate (2+/4+) functional mitral regurgitation present. 4. Bilateral pleural effusions are prese nt. 5. See remainder of report for additiona l details. 6. Compared to prior TTE of March 27, LV function is worse and there are new RWMA's. Mitral regurgitati on is slightly worse. Findings ? : Left Ventricle: ? The left ventricul ar chamber size is normal. ?Left ventricular wall thickness is normal. ?Global left ventricular systolic f unction is severely reduced. Ejection fraction is estimated to be 30% . ?There are left ventricular segment al wall motion abnormalities present, as shown in the diagram below. ?The ??basal inferolateral, basal i nferior, basal inferoseptal, mid anteroseptal, mid anterior, mid anterola teral, mid inferolateral, and mid inferoseptal wall segments are hypok inetic (score 2). ?The ??mid inferior, apical septal, apical anterior, apical lateral, and ??apical inferior wall segments are akinetic (score 3). ?Overall wallmotion score index is ??2.13 ?No thrombus is visualized within t he left ventricle. Left Atrium: ? The left atrium is mi ldly dilated. byvolume index of 41ml/m2. Right Ventricle: ? The right ventric le is normal in size. ?Right ventricular global systolic function is probably normal. ?There is evidence of mild pulmonar y hypertension. ?The estimated pulmonary artery sys tolic pressure is 41.69 mmHg. ?The estimated right atrial pressur e is 3 mmHg. Right Atrium: ? The right atrium idania ears normal. Aortic Valve: ? The aortic valve is tricuspid. ?The aortic valve leaflets are mild ly thickened. ?Systolic excursion of the aortic v alve is normal. ?There is no evidence of aortic augustine ve stenosis. ?There is a trace of aortic regurgi tation present. Mitral Valve: ? The mitral valve nini flets are mildly thickened. ?There is thickening of both mitral valve leaflets. ?The papillary muscle heads appear calcified. ?There is no evidence of mitral corinna nosis. ?There is moderate (2+/4+) mitral r egurgitation present. ?The effective regurgitant orifice area is 0.04. Tricuspid Valve: ? The tricuspid augustine ve appears normal in structure and function. ?There is mild (1+/4+) tricuspid re gurgitation present. Pulmonic Valve: ? The pulmonic valve is probably normal. ?There is trace pulmonic regurgitat ion present. Pericardium: ? There is no pericardi al effusion. ?Bilateral pleural effusions are pr esent. Venous: ? The inferior vena cava idania ears normal in size. ?There is a greater than 50% respir atory change in the inferior vena cava dimension. Misc: ? Two-dimensional echo, spectr al Doppler and color Doppler performed. ?Definity contrast (one 1.5 ml vial )was used to enhance endocardial definition. Excess contrast was discarde d. Chambers 2D ?Value ?Units (Range) ? IVSd (2D) ? 0.7 ?cm ? LVPWd (2D) ?0.8 ?cm ? IVS:LVPW ratio (2D) 0.9 ?ratio ? LVIDd (2D) ?5 ?cm ? LVIDs (2D) ?4.1 ?cm ? LVIDd (2D) index ?3.6 ?cm/m2 ? LVIDs (2D) index ?2.9 ?cm/m2 ? LV FS (2D) ?18 ? % ? EF Teichholz (2D) ?? 37 ? % ? Volumes/Mass ?Value ?Units (Range) ? LA Area 4 CH ?23.5 ? cm2 (<21) ? RA AREA 4CH ? 14.8 ? cm2 ? LA ESV SP 4CH (MOD) 72.6 ? ml ? LA ESV SP 2CH (MOD) 44.2 ? ml ? LA ESV BP (MOD) ? 57.8 ? ml ? LA ESV BP (MOD) inde41 ? ml/m2 ? LV mass (2D) ?125.1 ?g ? LV mass (2D) index ??88.7 ? g/m2 ? Diastolic/Systolic Function ?Value ?Units (Range) ? MV E-wave Vmax ?1.3 ?m/sec ? MV deceleration [id number] ?msec ? MV A-wave Vmax ?0.6 ?m/sec ? MV E:A ratio ?2.2 ?ratio ? LV septal e' Vmax ?? 0 ?m/sec ? LV E:e' septal ratio32.7 ? ratio ? Mitral Valve ?Value ?Units (Range) ? MR Vmax ? 5.4 ?m/sec ? MR VTI ?155 ?cm ? MR volume (PISA) ?6.2 ?ml ? MR flow (PISA) ?22.6 ? ml/sec ? MR ERO ?0 ?cm2 ? MR PISA radius ?0.3 ?cm ? MR alias Vmax ? 39.9 ? cm/sec ? Tricuspid Valve ?Value ?Units (Range) ? TR Vmax ? 3.1 ?m/sec ? TR peak gradient ?38.7 ? mmHg ? RAP ? 3 ?mmHg ? RVSP ?41.7 ? mmHg ? Measurement Trending Name ? 08/11/2015 ? LVIDd (2D) ? 5 LA ESV BP (MOD) ?57.8 LVIDs (2D) ? 4. 1 Wall Motion: Segment Name ?Rest ? Base-Anteroseptal ?? Normal ? Base-Anterior ? Normal ? Base-Anterolateral ??Normal ? Base-Posterolateral Hypokinetic ? Base-Inferior ? Hypokinetic ? Base-Inferoseptal ?? Hypokinetic ? Mid-Anteroseptal ?Hypokinetic ? Mid-Anterior ?Hypokinetic ? Mid-Anterolateral ?? Hypokinetic ? Mid-Posterolateral ??Hypokinetic ? Mid-Inferior ?Akinetic ? Mid-Inferoseptal ?Hypokinetic ? Hospers-Septal ? Akinetic ? Hospers-Anterior ? Akinetic ? Hospers-Lateral ?Akinetic ? Hospers-Inferior ? Akinetic ? Hospers-Tip ?Akinetic ? This report has been electronically sign ed by: _ Dontrell Mock M.D. ? 08/11/2015 13:27:44 Images [facility] Procedure Note Dontrell Mock MD - 08/11/2015Format ting of this note might be different from the original. Procedure: Transthoracic Echocardiogram Patient: ARIS Mcguire (Age): [birth year](64y) Med Rec#: [id number] Sex: F Site Loc: [facility] Ht / Wt: 152(cm)/47(kg) Pt. Loc: [facility] BSA: 1.41 Study Date: 08/11/2015 Pt. Type: Inpatie nt Tape: Referring: Baudilio Bassett Referring: ROSY FERGUSON Reading: Dontrell Mock ([id number]) Assistant Auto Center Manager: Rajinder Laws MS, RDCS Assistant Auto Center Manager 2: Omkar Parmar MD Interpreting Fellow: Beka Garcia ([id number] ) Diagnosis: *ICD-10-PCS Non-ST elevation (NSTEMI) m yocardial infarction (I21.4) CPT Codes: *Echo Full (58719) *Spectral Doppler (62481) *Color Doppler (56217) BP: 138/80 SUMMARY: 1. Left ventricular chamber size and wal l thickness are normal. Global left ventricular systolic function is se verely reduced with an estimated ejection fraction of 30%. There are left ventricular segmental wall motion abnormalities present, as shown i n the diagram below. 2. The right ventricle is normal in size . Right ventricular global systolic function is probably normal. Th e estimated pulmonary artery systolic pressure is 42 mmHg. 3. The mitral valve leaflets are mildly thickened with incomplete coaptation. There is central jet of mode rate (2+/4+) functional mitral regurgitation present. 4. Bilateral pleural effusions are prese nt. 5. See remainder of report for additiona l details. 6. Compared to prior TTE of March 27, LV function is worse and there are new RWMA's. Mitral regurgitati on is slightly worse. Findings : Left Ventricle: The left ventricular saroj mber size is normal. Left ventricular wall thickness is norm al. Global left ventricular systolic functi on is severely reduced. Ejection fraction is estimated to be 30% . There are left ventricular segmental wa ll motion abnormalities present, as shown in the diagram below. The basal inferolateral, basal inferior , basal inferoseptal, mid anteroseptal, mid anterior, mid anterola teral, mid inferolateral, and mid inferoseptal wall segments are hypok inetic (score 2). The mid inferior, apical septal, apical anterior, apical lateral, and apical inferior wall segments are ak inetic (score 3). Overall wallmotion score index is 2.13 No thrombus is visualized within the le ft ventricle. Left Atrium: The left atrium is mildly d ilated. byvolume index of 41ml/m2. Right Ventricle: The right ventricle is normal in size. Right ventricular global systolic funct ion is probably normal. There is evidence of mild pulmonary hyp ertension. The estimated pulmonary artery systolic pressure is 41.69 mmHg. The estimated right atrial pressure is 3 mmHg. Right Atrium: The right atrium appears n ormal. Aortic Valve: The aortic valve is tricus pid. The aortic valve leaflets are mildly th ickened. Systolic excursion of the aortic valve is normal. There is no evidence of aortic valve st enosis. There is a trace of aortic regurgitatio n present. Mitral Valve: The mitral valve leaflets are mildly thickened. There is thickening of both mitral valv e leaflets. The papillary muscle heads appear calci fied. There is no evidence of mitral stenosis . There is moderate (2+/4+) mitral regurg itation present. The effective regurgitant orifice area is 0.04. Tricuspid Valve: The tricuspid valve idania ears normal in structure and function. There is mild (1+/4+) tricuspid regurgi tation present. Pulmonic Valve: The pulmonic valve is pr obably normal. There is trace pulmonic regurgitation p resent. Pericardium: There is no pericardial eff usion. Bilateral pleural effusions are present . Venous: The inferior vena cava appears n ormal in size. There is a greater than 50% respiratory change in the inferior vena cava dimension. Misc: Two-dimensional echo, spectral Dop pler and color Doppler performed. Definity contrast (one 1.5 ml vial)was used to enhance endocardial definition. Excess contrast was discarde d. Chambers 2D Value Units (Range) IVSd (2D) 0.7 cm LVPWd (2D) 0.8 cm IVS:LVPW ratio (2D) 0.9 ratio LVIDd (2D) 5 cm LVIDs (2D) 4.1 cm LVIDd (2D) index 3.6 cm/m2 LVIDs (2D) index 2.9 cm/m2 LV FS (2D) 18 % EF Teichholz (2D) 37 % Volumes/Mass Value Units (Range) LA Area 4 CH 23.5 cm2 (<21) RA AREA 4CH 14.8 cm2 LA ESV SP 4CH (MOD) 72.6 ml LA ESV SP 2CH (MOD) 44.2 ml LA ESV BP (MOD) 57.8 ml LA ESV BP (MOD) inde41 ml/m2 LV mass (2D) 125.1 g LV mass (2D) index 88.7 g/m2 Diastolic/Systolic Function Value Units (Range) MV E-wave Vmax 1.3 m/sec MV deceleration [id number] msec MV A-wave Vmax 0.6 m/sec MV E:A ratio 2.2 ratio LV septal e' Vmax 0 m/sec LV E:e' septal ratio32.7 ratio Mitral Valve Value Units (Range) MR Vmax 5.4 m/sec MR VTI 155 cm MR volume (PISA) 6.2 ml MR flow (PISA) 22.6 ml/sec MR ERO 0 cm2 MR PISA radius 0.3 cm MR alias Vmax 39.9 cm/sec Tricuspid Valve Value Units (Range) TR Vmax 3.1 m/sec TR peak gradient 38.7 mmHg RAP 3 mmHg RVSP 41.7 mmHg Measurement Trending Name 08/11/2015 LVIDd (2D) 5 LA ESV BP (MOD) 57.8 LVIDs (2D) 4.1 Wall Motion: Segment Name Rest Base-Anteroseptal Normal Base-Anterior Normal Base-Anterolateral Normal Base-Posterolateral Hypokinetic Base-Inferior Hypokinetic Base-Inferoseptal Hypokinetic Mid-Anteroseptal Hypokinetic Mid-Anterior Hypokinetic Mid-Anterolateral Hypokinetic Mid-Posterolateral Hypokinetic Mid-Inferior Akinetic Mid-Inferoseptal Hypokinetic Hospers-Septal Akinetic Hospers-Anterior Akinetic Hospers-Lateral Akinetic Hospers-Inferior Akinetic Hospers-Tip Akinetic This report has been electronically sign ed by: _ Dontrell Mock M.D. 08/11/2015 13:27: 44 Images reviewed and interpretation verif ied [facility] Cardiac Ultrasound Laboratory Baudilio Bassett MD ECHO ORDERABLES Performing Organization Address City/State/ZIP Code Phon e Number [facility] POCT Glucose (08/11/2015 11:49 AM EST) P athologist Signature POC Glucose 162 65 - 199 CERNER mg/dL [facility] Comment: Supplemental ranges: <140 mg/dL before meals <180 mg/dL all other times of the day Specimen Anatomical Collection Method Collection Time Receive d Time (Source) Location / / Volume Laterality Blood specimen 08/11/2015 11:49 201 6 (specimen) AM EST 11:49 AM EST Baudilio Bassett MD POINT OF CARE TEST ORDERABLE S Performing Organization Address City/State/ZIP Code Phon e Number [address] CERNER MILLENNIUM POCT Glucose (08/11/2015 8:36 AM EST) athologist Signature POC Glucose 184 65 - 199 CERNER mg/dL [facility] Comment: Supplemental ranges: <140 mg/dL before meals <180 mg/dL all other times of the day Specimen Anatomical Collection Method Collection Time Receive d Time (Source) Location / / Volume Laterality Blood specimen 08/11/2015 8:36 AM 016 8:36 (specimen) EST AM EST Baudilio Bassett MD POINT OF CARE TEST ORDERABLE S Performing Organization Address City/[facility] [address]/[place] [address] CERNER MILLENNIUM (ABNORMAL) Cardiac Enzymes (08/11/2015 6:20 AM EST) athologist Signature Troponin-T 0.64 (H) <=0.03 CERNER ng/mL [facility] Comment: 0.03 ng/mL: Represents the 99th percenti le upper reference limit for normals. >0.03 ng/mL: Elevated cardiac troponin T level indicative of myocardial damage. Diagnosis of acute, evolving or recent M I requires a typical rise and gradual fall of cTnT with at least ONE of the fo llowing: a) Ischemic symptoms b) Development of pathologic Q waves on the ECG c) ECG changes indicative of eschemia (S -T segment elevation/depression) d) Coronary artery intervention Serial bloods should be obtained for epifanio ting on admission, at 6 to 9 hrs and again at 12 to 24 hrs if earlier samples are negative and the clinical index of suspicion is high. Reference: [Myocardial infarction redefined? a consensus document of the Joint Society of Cardiology/[employer] Committee for the redefinition of myocardial infarction. ? ?Journal of the [place] [employer] 2000; 36: 959-969] CK, Total 35 0 - 160 unit/L CERNER MILLENNI UM Specimen Anatomical Collection Method Collection Time Receive d Time (Source) Location / / Volume Laterality Blood specimen Venous Draw / 08/11/2015 6:20 AM 2015 6:44 (specimen) Unknown EST AM EST Resulting Agency Comment Spec In Lab Cody Johnson MD CHEMISTRY ORDERABLES Performing Organization Address [facility] [address]/[facility] [place] [address] CERNER MILLENNIUM Magnesium (08/11/2015 6:20 AM EST) athologist Signature Magnesium 0.85 0.69 - 1.07 CERNER mmol/L [facility] Specimen Anatomical Collection Method Collection Time Receive d Time (Source) Location / / Volume Laterality Blood specimen Venous Draw / 08/11/2015 6:20 AM 2015 6:44 (specimen) Unknown EST AM EST Resulting Agency Comment Spec In Lab Cody Johnson MD CHEMISTRY ORDERABLES Performing Organization Address [facility] [address]/[facility] Phon e Number [address] CERNER MILLENNIUM (ABNORMAL) Basic Metabolic Panel (non-fasting) (08/11/2015 6:20 AM EST) athologist Signature Glucose Lvl 187 65 - 199 CERNER mg/dL [facility] Comment: Diabetes: >=200 mg/dL plus symp toms BUN 22 (H) 8 - 18 mg/dL CERNER MILLENNIUM Creatinine 1.11 0.70 - 1.20 mg/dL CERNER [facility]ILL E[facility] Comment: Please note that the pediatric reference intervals supplied above were not validated at [facility]. Results from pediatri c patients should be interpreted in conjunction to the patient's age, height and muscle mass. Sodium 138 135 - 145 mmol/L CERNER KINGSLEY NIUM Potassium 3.9 3.5 - 5.0 mmol/L CERNER KINGSLEY NIUM Comment: Please note: ??Patients with WBC >100,00 0 may have falsely elevated Potassium levels. ??For accurate Potassium quantif ication in these patients send serum separator tube (gold top) for subsequent determinations. ??Contact the Clinical Chemistry Laboratory if there are any qu estions. Chloride 96 (L) 98 - 107 mmol/L CERNER MILLENN IUM CO2 Not Perf 22 - 31 mmol/L CERNER MILLENNI UM Comment: Add-on request. Sample too old to perform test. Anion Gap Unable to Calculate 5 - 15 mmol/L CERNER MILLENNIUM Calcium 7.8 (L) 8.5 - 10.5 mg/dL CERNER KINGSLEY NIUM Estimated GFR 49 (L) >=60 CERNER MILLENNIU M Comment: This estimated GFR (eGFR) value was calc ulated using the MDRD equation which has been validated on patients between t he ages of 18 and 70. The MDRD should not be used to assess kidney function in patients < 18 years of age or in patients with extremes of body mass, or in patients with acute kidney failure. This value should be multiplied by 1.2 f or patients. For further information please copy and past e the following links into your internet browser. [email or web address] [email or web address] Specimen Anatomical Collection Method Collection Time Receive d Time (Source) Location / / Volume Laterality Blood specimen Venous Draw / 08/11/2015 6:20 AM 2015 6:44 (specimen) Unknown EST AM EST Resulting Agency Comment Spec In Lab Cody Johnson MD CHEMISTRY ORDERABLES Performing Organization Address City/[facility] [address]/ZIP Code Phon e Number [address] [facility] (ABNORMAL) APTT (08/11/2015 6:20 AM EST) P athologist Signature PTT 51 (H) 25 - [address] [address] [address] [facility] M[facility]NIUM Comment: Recommended therapeutic PTT range for fu ll dose unfractionated heparin is 80-114 seconds. Specimen Anatomical Collection Method Collection Time Receive d Time (Source) Location / / Volume Laterality Blood specimen 08/11/2015 6:20 AM 016 6:43 (specimen) EST AM EST Resulting Agency Comment Spec In Lab Cody Johnson MD HEMATOLOGY ORDERABLES Performing Organization Address City/[facility] [address]/[place] [address] CERNER MILLENNIUM (ABNORMAL) Differential, Automated (08/11/2015 6:20 AM EST) Patholo gist Method Time Signature Neutrophils % 80.8 % CERNER MILLENNIUM Neutr Abs (ANC) 7.83 (H) 1.50 - CERNER 6.30 MILLENNIUM x10(3)/mc L Lymphocytes % 10.7 % CERNER MILLENNIUM Lymphocytes Abs 1.0 1.0 - 3.6 CERNER x10(3)/mc MILLENNIUM L Monocytes % 6.5 % CERNER MILLENNIUM Monocyte Abs 0.6 0.2 - 1.0 CERNER x10(3)/mc MILLENNIUM L Eosinophils % 1.5 % CERNER MILLENNIUM Eosinophils Abs 0.2 0.0 - 0.5 CERNER x10(3)/mc MILLENNIUM L Basophils % 0.3 % CERNER MILLENNIUM Basophils Abs 0.0 0.0 - 0.2 CERNER x10(3)/mc MILLENNIUM L Immature Gran % 0.20 % CERNER MILLENNIUM Comment: Immature granulocytes(IG's)percentage an d absolute count will include metamyelocytes, myelocytes, and promyelo cytes. Blood smears from CBCs yielding IG's will be scanned manually for concor dance. If this scan disagrees with the automated IG or if promyelocytes are not ed, a manual differential will be performed. Rosenda Gran Abs 0.02 0.00 - 0.05 x10(3)/mcL CER NER MILLENNIUM Specimen Anatomical Collection Method Collection Time Receive d Time (Source) Location / / Volume Laterality Blood specimen 08/11/2015 6:20 AM 016 6:42 (specimen) EST AM EST Resulting Agency Comment Spec In Lab Cody Johnson MD HEMATOLOGY ORDERABLES Performing Organization Address City/State/[place] [address] [facility] [address] CERNER MILLENNIUM (ABNORMAL) Hemogram (08/11/2015 6:20 AM EST) P athologist Signature WBC 9.7 4.0 - 10.0 CERNER x10(3)/mcL MILLENNIUM RBC 3.87 (L) 3.93 - CERNER 5.22 MILLENNIUM x10(6)/mcL Hemoglobin 11.5 11.2 - CERNER 15.7 gm/dL MILLENNIUM Hematocrit 34.5 34.0 - CERNER 45.0 % MILLENNIUM MCV 89.1 79.0 - CERNER 94.0 fL MILLENNIUM MCH 29.7 26.6 - CERNER 32.2 pg MILLENNIUM MCHC 33.3 32.0 - CERNER 36.5 gm/dL MILLENNIUM Platelets 359 145 - 370 CERNER x10(3)/mcL MILLENNIUM RDWSD 50.5 (H) 35.0 - CERNER 46.0 fL MILLENNIUM RDWCV 15.7 (H) 10.9 - CERNER 14.4 % MILLENNIUM MPV 11.0 9.0 - 12.0 CERNER fL MILLENNIUM Specimen Anatomical Collection Method Collection Time Receive d Time (Source) Location / / Volume Laterality Blood specimen 08/11/2015 6:20 AM 016 6:42 (specimen) EST AM EST Resulting Agency Comment Spec In Lab Cody Johnson MD HEMATOLOGY ORDERABLES Performing Organization Address City/State/[place] [address] CERNER MILLENNIUM (ABNORMAL) Troponin T (08/11/2015 6:20 AM EST) P athologist Signature Troponin-T 0.63 (H) <=0.03 CERNER ng/mL [facility] Comment: 0.03 ng/mL: Represents the 99th percenti le upper reference limit for normals. >0.03 ng/mL: Elevated cardiac troponin T level indicative of myocardial damage. Diagnosis of acute, evolving or recent M I requires a typical rise and gradual fall of cTnT with at least ONE of the fo llowing: a) Ischemic symptoms b) Development of pathologic Q waves on the ECG c) ECG changes indicative of eschemia (S -T segment elevation/depression) d) Coronary artery intervention Serial bloods should be obtained for epifanio ting on admission, at 6 to 9 hrs and again at 12 to 24 hrs if earlier samples are negative and the clinical index of suspicion is high. Reference: [Myocardial infarction redefined? a consensus document of the Joint Society of Cardiology/[employer] o [employer] Committee for the redefinition of myocardial infarction. ? ?Journal of the [place] [employer] 2000; 36: 959-969] Specimen Anatomical Collection Method Collection Time Receive d Time (Source) Location / / Volume Laterality Blood specimen 08/11/2015 6:20 AM 016 6:42 (specimen) EST AM EST Resulting Agency Comment Spec In Lab Cody Johnson MD CHEMISTRY ORDERABLES Performing Organization Address City/[facility] [address]/ZIP Code Phon e Number [address] CERNER MILLENNIUM (ABNORMAL) POCT Glucose (08/11/2015 4:35 AM EST) P athologist Signature POC Glucose 211 (H) 65 - 199 CERNER mg/dL [facility] Comment: Supplemental ranges: <140 mg/dL before meals <180 mg/dL all other times of the day Specimen Anatomical Collection Method Collection Time Receive d Time (Source) Location / / Volume Laterality Blood specimen 08/11/2015 4:35 AM 016 4:35 (specimen) EST AM EST Baudilio Bassett MD POINT OF CARE TEST ORDERABLE S Performing Organization Address City/[facility] [address]/ZIP Code Phon e Number [address] [employer] EKG 12 Lead (08/11/2015 4:28 AM EST) Component Value Ref Range Test Analysis Performed Pathologis t Method Time At Signature Ventricular rate 97 BPM MUSE SYSTEM Atrial Rate 97 BPM MUSE SYSTEM P-R Interval 132 ms MUSE SYSTEM QRS Duration 80 ms MUSE SYSTEM Q-T Interval 348 ms MUSE SYSTEM QTC Calculated 441 ms MUSE SYSTEM (Bezet) Calculated P Madison 64 degrees MUSE SYSTEM Calculated R Madison 37 degrees MUSE SYSTEM Calculated T Madison 53 degrees MUSE SYSTEM INTERPRETATION Normal sinus rhythm MUSE SYSTEM Inferior infarct (cited on or before 10-AUG-2015) Poor R wave progression , ??Cannot rule out Anterior infarct When compared with ECG of 10-AUG-2015 20:44, (unconfirmed) No significant change was found Confirmed by MD ROTH ALAN ([id number]) on 08/11/2015 3:50:06 PM Specimen Anatomical Collection Method Collection Time Receive d Time (Source) Location / / Volume Laterality 08/11/2015 4:28 AM 6 3:50 EST PM EST Cody Johnson MD ECG ORDERABLES Performing Organization Address City/State/ZIP Code Phon e Number MUSE SYSTEM APTT (08/11/2015 2:00 AM EST) athologist Signature PTT 29 25 - 35 sec CERNER MILLENNIUM Comment: Recommended therapeutic PTT range for fu ll dose unfractionated heparin is 80-114 seconds. Specimen Anatomical Collection Method Collection Time Receive d Time (Source) Location / / Volume Laterality Blood specimen 08/11/2015 2:00 AM 016 2:03 (specimen) EST AM EST Resulting Agency Comment Spec In Lab Cody Johnson MD HEMATOLOGY ORDERABLES Performing Organization Address City/[facility] [address]/[place] [address] CERNER MILLENNIUM (ABNORMAL) Troponin T (08/10/2015 11:30 PM EST) athologist Signature Troponin-T 0.50 (H) <=0.03 CERNER ng/mL [facility] Comment: 0.03 ng/mL: Represents the 99th percenti le upper reference limit for normals. >0.03 ng/mL: Elevated cardiac troponin T level indicative of myocardial damage. Diagnosis of acute, evolving or recent M I requires a typical rise and gradual fall of cTnT with at least ONE of the fo llowing: a) Ischemic symptoms b) Development of pathologic Q waves on the ECG c) ECG changes indicative of eschemia (S -T segment elevation/depression) d) Coronary artery intervention Serial bloods should be obtained for epifanio ting on admission, at 6 to 9 hrs and again at 12 to 24 hrs if earlier samples are negative and the clinical index of suspicion is high. Reference: [Myocardial infarction redefined? a consensus document of the Joint Society of Cardiology/[place] [employer] o f [employer] Committee for the redefinition of myocardial infarction. ? ?Journal of the [place] [employer] 2000; 36: 959-969] Specimen Anatomical Collection Method Collection Time Receive d Time (Source) Location / / Volume Laterality Blood specimen Venous Draw / 08/10/2015 11:30 08/10/19 16 (specimen) Unknown PM EST 11:37 PM EST Resulting Agency Comment Spec In Lab Cody Johnson MD CHEMISTRY ORDERABLES Performing Organization Address City/[facility] [address]/[facility] Phon e Number [address] CERNER MILLENNIUM (ABNORMAL) Magnesium (08/10/2015 11:30 PM EST) athologist Signature Magnesium 0.52 (L) 0.69 - 1.07 CERNER mmol/L MILLENNIUM Specimen Anatomical Collection Method Collection Time Receive d Time (Source) Location / / Volume Laterality Blood specimen Venous Draw / 08/10/2015 11:30 08/10/19 16 (specimen) Unknown PM EST 11:37 PM EST Resulting Agency Comment Spec In Lab Cody Johnson MD CHEMISTRY ORDERABLES Performing Organization Address [facility] [address]/[facility] Phon e Number [address] CERNER MILLENNIUM (ABNORMAL) Comprehensive metabolic panel (non-fasting) (08/10/2015 11:30 PM EST) athologist Signature Glucose Lvl 217 (H) 65 - 199 CERNER mg/dL [facility] Comment: Diabetes: >=200 mg/dL plus symp toms BUN 26 (H) 8 - 18 mg/dL CERNER MILLENNIUM Creatinine 1.16 0.70 - 1.20 mg/dL CERNER MILL ENNIUM Comment: Please note that the pediatric reference intervals supplied above were not validated at [facility]. Results from pediatri c patients should be interpreted in conjunction to the patient's age, height and muscle mass. Sodium 136 135 - 145 mmol/L CERNER KINGSLEY NIUM Potassium 3.4 (L) 3.5 - 5.0 mmol/L CERNER KINGSLEY NIUM Comment: Please note: ??Patients with WBC >100,00 0 may have falsely elevated Potassium levels. ??For accurate Potassium quantif ication in these patients send serum separator tube (gold top) for subsequent determinations. ??Contact the Clinical Chemistry Laboratory if there are any qu estions. Chloride 93 (L) 98 - 107 mmol/L CERNER MILLENN IUM CO2 27 22 - 31 mmol/L CERNER MILLENNI UM Anion Gap 16 (H) 5 - 15 mmol/L CERNER MILLENNIU M Calcium 7.8 (L) 8.5 - 10.5 mg/dL CERNER KINGSLEY NIUM Total Protein 6.2 6.1 - 8.0 gm/dL CERNER MIL LENNIUM Albumin 2.8 (L) 3.2 - 5.2 gm/dL CERNER MILLENN IUM AST 22 0 - 30 unit/L CERNER MILLENNIU M ALT 37 (H) 0 - 30 unit/L CERNER MILLENNIU M Alk Phos 337 (H) 40 - 104 unit/L CERNER MILLENN IUM Total Bilirubin 0.5 0.2 - 1.3 mg/dL CERNER M ILLENNIUM Bili, Direct 0.1 0.0 - 0.3 mg/dL CERNER MILL ENNIUM Estimated GFR 47 (L) >=60 CERNER MILLENNIU M Comment: This estimated GFR (eGFR) value was calc ulated using the MDRD equation which has been validated on patients between t he ages of 18 and 70. The MDRD should not be used to assess kidney function in patients < 18 years of age or in patients with extremes of body mass, or in patients with acute kidney failure. This value should be multiplied by 1.2 f or patients. For further information please copy and past e the following links into your internet browser. [email or web address] [email or web address] Specimen Anatomical Collection Method Collection Time Receive d Time (Source) Location / / Volume Laterality Blood specimen 08/10/2015 11:30 6 (specimen) PM EST 11:32 PM EST Resulting Agency Comment Spec In Lab Cody Johnson MD CHEMISTRY ORDERABLES Performing Organization Address City/State/[place] [address] CERNER MILLENNIUM (ABNORMAL) POCT Glucose (08/10/2015 11:16 PM EST) P athologist Signature POC Glucose 206 (H) 65 - 199 CERNER mg/dL MILLENNIUM Comment: Supplemental ranges: <140 mg/dL before meals <180 mg/dL all other times of the day Specimen Anatomical Collection Method Collection Time Receive d Time (Source) Location / / Volume Laterality Blood specimen 08/10/2015 11:16 6 (specimen) PM EST 11:16 PM EST Baudilio Bassett MD POINT OF CARE TEST ORDERABLE S Performing Organization Address City/State/[place] [address] DANIEL Urban Interactions XR Chest Pa or AP- 1 View (08/10/2015 10:41 PM EST) Anatomical Region Laterality Modality Chest N/A Digital Radiography Specimen (Source) Anatomical Location Collection Method / Collectio n Time Received Time / Laterality Volume Impressions 08/10/2015 10:47 PM EST IMPRESSION: Right-sided PICC with tip terminating in the distal SVC without complication. Probable interstitial pulmonary edema wi th associated bilateral pleural effusions. Narrative 08/10/2015 10:47 PM EST EXAMINATION: XR CHEST PA OR AP 1 VIEW CLINICAL HISTORY: PICC line placement. TECHNIQUE: Single portable AP radiograph of the chest. COMPARISON: 08/09/2015. FINDINGS: There is a right-sided PICC with tip ter minating in the distal SVC. No sizable pneumothorax seen. Perihilar and bibasil ar opacities likely reflect an element of interstitial pulmonary edema with per ibronchial cuffing. Hazy opacities at the lung bases also likely reflect pleur al effusions with associated compressive atelectasis. No interval change in heart size, upper abdomen, or osseous structures. Procedure Note Tommie Cruz MD - 08/10/2015 EXAMINATION: XR CHEST PA OR AP 1 VIEW CLINICAL HISTORY: PICC line placement. TECHNIQUE: Single portable AP radiograph of the chest. COMPARISON: 08/09/2015. FINDINGS: There is a right-sided PICC with tip ter minating in the distal SVC. No sizable pneumothorax seen. Perihilar and bibasil ar opacities likely reflect an element of interstitial pulmonary edema with per ibronchial cuffing. Hazy opacities at the lung bases also likely reflect pleur al effusions with associated compressive atelectasis. No interval change in heart size, upper abdomen, or osseous structures. IMPRESSION IMPRESSION: Right-sided PICC with tip terminating in the distal SVC without complication. Probable interstitial pulmonary edema wi th associated bilateral pleural effusions. Cody Johnson MD IMG DX ORDERABLES EKG 12 Lead (08/10/2015 8:44 PM EST) Component Value Ref Range Test Analysis [facility] Method Time At Signature Ventricular rate 94 BPM MUSE SYSTEM Atrial Rate 94 BPM MUSE SYSTEM P-R Interval 132 ms MUSE SYSTEM QRS Duration 82 ms MUSE SYSTEM Q-T Interval 342 ms MUSE SYSTEM QTC Calculated 427 ms MUSE SYSTEM (Bezet) Calculated P Madison 23 degrees MUSE SYSTEM Calculated R Madison 23 degrees MUSE SYSTEM Calculated T Madison -97 degrees MUSE SYSTEM INTERPRETATION Normal sinus rhythm MUSE SYSTEM Inferior infarct , age undetermined Cannot rule out Anterior infarct , age undetermined T wave abnormality, consider lateral ischemia Abnormal ECG When compared with ECG of 24-MAY-2015 10:57, Inferior infarct is now Present Confirmed by MD ROTH ALAN ([id number]) on 08/11/2015 3:48:54 PM Specimen Anatomical Collection Method Collection Time Receive d Time (Source) Location / / Volume Laterality 08/10/2015 8:44 PM 6 3:48 EST PM EST Cody Johnson MD ECG ORDERABLES Performing Organization Address City/State/ZIP Code Phon e Number MUSE SYSTEM (ABNORMAL) Differential, Automated (08/10/2015 8:39 PM EST) [facility] gist Method Time Signature Neutrophils % 83.7 % CERNER MILLENNIUM Neutr Abs (ANC) 8.89 (H) 1.50 - CERNER 6.30 MILLENNIUM x10(3)/mc L Lymphocytes % 10.4 % CERNER MILLENNIUM Lymphocytes Abs 1.1 1.0 - 3.6 CERNER x10(3)/mc MILLENNIUM L Monocytes % 4.6 % CERNER MILLENNIUM Monocyte Abs 0.5 0.2 - 1.0 CERNER x10(3)/mc MILLENNIUM L Eosinophils % 0.8 % CERNER MILLENNIUM Eosinophils Abs 0.1 0.0 - 0.5 CERNER x10(3)/mc MILLENNIUM L Basophils % 0.3 % CERNER MILLENNIUM Basophils Abs 0.0 0.0 - 0.2 CERNER x10(3)/mc MILLENNIUM L Immature Gran % 0.20 % CERNER MILLENNIUM Comment: Immature granulocytes(IG's)percentage an d absolute count will include metamyelocytes, myelocytes, and promyelo cytes. Blood smears from CBCs yielding IG's will be scanned manually for concor dance. If this scan disagrees with the automated IG or if promyelocytes are not ed, a manual differential will be performed. Rosenda Gran Abs 0.02 0.00 - 0.05 x10(3)/mcL CER NER MILLENNIUM Specimen Anatomical Collection Method Collection Time Receive d Time (Source) Location / / Volume Laterality Blood specimen 08/10/2015 8:39 PM 016 8:44 (specimen) EST PM EST Resulting Agency Comment Spec In Lab Cody Johnson MD HEMATOLOGY ORDERABLES Performing Organization Address City/State/ZIP Code Phon e Number [place] [id number] CERNER MILLENNIUM (ABNORMAL) Hemogram (08/10/2015 8:39 PM EST) P athologist Signature WBC 10.6 (H) 4.0 - 10.0 CERNER x10(3)/mcL MILLENNIUM RBC 4.04 3.93 - CERNER 5.22 MILLENNIUM x10(6)/mcL Hemoglobin 12.0 11.2 - CERNER 15.7 gm/dL MILLENNIUM Hematocrit 35.0 34.0 - CERNER 45.0 % MILLENNIUM MCV 86.6 79.0 - CERNER 94.0 fL MILLENNIUM MCH 29.7 26.6 - CERNER 32.2 pg MILLENNIUM MCHC 34.3 32.0 - CERNER 36.5 gm/dL MILLENNIUM Platelets 369 145 - 370 CERNER x10(3)/mcL MILLENNIUM RDWSD 51.0 (H) 35.0 - CERNER 46.0 fL MILLENNIUM RDWCV 16.1 (H) 10.9 - CERNER 14.4 % MILLENNIUM MPV 10.5 9.0 - 12.0 CERNER fL MILLENNIUM Specimen Anatomical Collection Method Collection Time Receive d Time (Source) Location / / Volume Laterality Blood specimen 08/10/2015 8:39 PM 016 8:44 (specimen) EST PM EST Resulting Agency Comment Spec In Lab Cody Johnson MD HEMATOLOGY ORDERABLES Performing Organization Address City/[facility] [address]/ZIP Code Phon e Number [address] CERNER MILLENNIUM APTT (08/10/2015 8:39 PM EST) P athologist Signature PTT 32 25 - 35 sec CERNER MILLENNIUM Comment: Recommended therapeutic PTT range for fu ll dose unfractionated heparin is 80-114 seconds. Specimen Anatomical Collection Method Collection Time Receive d Time (Source) Location / / Volume Laterality Blood specimen 08/10/2015 8:39 PM 016 8:44 (specimen) EST PM EST Resulting Agency Comment Spec In Lab Cody Johnson MD HEMATOLOGY ORDERABLES Performing Organization Address City/[facility] [address]/ZIP Code Phon e Number [address] CERNER MILLENNIUM (ABNORMAL) POCT Glucose (08/10/2015 7:57 PM EST) P athologist Signature POC Glucose 250 (H) 65 - 199 CERNER mg/dL MILLENNIUM Comment: Supplemental ranges: <140 mg/dL before meals <180 mg/dL all other times of the day Specimen Anatomical Collection Method Collection Time Receive d Time (Source) Location / / Volume Laterality Blood specimen 08/10/2015 7:57 PM 016 7:57 (specimen) EST PM EST Baudilio Bassett MD POINT OF CARE TEST ORDERABLE S Performing Organization Address City/[facility] [address]/ZIP Code Phon e Number [address] CERNER MILLENNIUM documented in this encounter Visit Diagnoses Diagnosis Non-ST elevation myocardial infarction ( NSTEMI) Acute myocardial infarction, subendocard ial infarction, episode of care unspecified 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 Critical lower limb ischemia Unspecified circulatory system disorder NSTEMI (non-ST elevated myocardial infar ction) Acute myocardial infarction, subendocard ial infarction, episode of care unspecified documented in this encounter Admitting Diagnoses Diagnosis NSTEMI (non-ST elevated myocardial infar ction) Acute myocardial infarction, subendocard ial infarction, episode of care unspecified documented in this encounter Administered Medications Inactive Administered Medications - up to 3 most recent administrations Medication Order MAR Action Action Date Dose Rate Site acetaminophen (TYLENOL) tablet 325 Given 08/11/2015 8:46 PM EST 325 mg mg 325 mg, Oral, EVERY 4 HOURS PRN, Starting on Sat08/10/15 at 2122, Until 08/13/15 at 1259, Pain, Maximum dose of acetaminophen is 4000 mg from all sources in 24 hours., Routine Given 08/10/2015 9:46 PM EST 325 mg aspirin EC tablet 81 mg Given 08/13/2015 8:29 AM EST 81 mg 81 mg, Oral, DAILY, First dose on Yadira 08/11/15 at 0900, Until Discontinued, Routine Given 08/12/2015 8:56 AM EST 81 mg Given 08/11/2015 9:08 AM EST 81 mg clopidogrel (PLAVIX) tablet 75 mg Given 08/13/2015 8:29 AM EST 75 mg 75 mg, Oral, DAILY, First dose on Yadira 08/11/15 at 0900, Until Discontinued, Routine Given 08/12/2015 8:56 AM EST 75 mg Given 08/11/2015 9:08 AM EST 75 mg DAPTOmycin (CUBICIN) 280 mg in Given 08/12/2015 1:57 PM EST 280 mg 111.2 mL/hr sodium chloride 0.9% 55.6 mL 280 mg (rounded from 282 mg = 6 mg/kg/dose ? 47 kg), Intravenous, EVERY 48 HOURS, 7 doses, First dose on Sat08/12/15 at 1400, Last dose on Sat08/24/15 at 1400, Administer over 30 Minutes, Indication for (Active or Suspected): Skin/Skin Structure, Restricted Antibiotic: Please indicate the most appropriate choice: ID Approval by hSannan Mai diaZEPam (VALIUM) tablet 5 mg Given 08/11/2015 11:44 AM EST 5 mg 5 mg, Oral, ONCE, 1 dose, On Yadira 08/11/15 at 1200, Cath (Day of Procedure), Routine diphenhydrAMINE (BENADRYL) capsule 25 mg Given 08/11/2015 11:44 AM EST 25 mg 25 mg, Oral, ONCE, 1 dose, On Yadira 08/11/15 at 1200, Cath (Day of Procedure), Routine gabapentin (NEURONTIN) capsule 600 mg Given 08/13/2015 8:29 AM EST 600 mg 600 mg, Oral, 2 TIMES DAILY, First dose on Sat08/10/15 at 2300, Until Discontinued, Routine Given 08/12/2015 8:45 PM EST 600 mg Given 08/12/2015 8:56 AM EST 600 mg heparin (porcine) 25,000 unit/500 mL (50 unit/mL) infusion 1 dose, Starting on Sat08/10/15 at 2019, Until Yadira 08/11/15 at 0001, ELSIE SNEED: cabinet override heparin (porcine) injection 1,400-2,800 Given 08/11/19 16 7:43 AM EST 2,800 Units Units 1,400-2,800 Units, Intravenous, BOLUS PER HEPARIN PROTOCOL, Starting on Sat08/10/15 at 2018, Until 08/13/15 at 1259, Per Protocol, Adjust to dosing chart, Patient Weight 45-49 kg aPTT less than 60 seconds - 2,800 units aPTT 60-79 seconds - 1,400 units aPTT 80-114 seconds - no bolus Repeat aPTT 6 hours after initiating heparin. Then 6 hours after each dose adjustment. When 2 consecutive aPTT within target range of 80 - 114 seconds, change aPTT to once every 24 hours with A.M. labs while on heparin., RN to order required aPTT - Per Protocol, Routine Given 08/11/2015 2:50 AM EST 2,800 Units heparin 25,000 units in Rate/Dose Change 08/11/2015 7:42 950 Units/hr 19 mL/hr dextrose 5% 500 mL infusion AM EST 350-7,000 Units/hr (7-140 mL/hr), Intravenous, CONTINUOUS, Starting on Sat08/10/15 at 2045, Until 08/13/15 at 1259, Patient Weight 45-49 kg Initial dose - 550 units/hr = 11 mL/hr aPTT less than 60 sec - increase by 200 units/hr = 4 mL/hr aPTT 60-79 sec- increase by 100 units/hr = 2 mL/hr aPTT 80-114 sec - no change aPTT 115-129 sec - decrease by 50 units/hr = 1 mL/hr aPTT 130-145 sec - stop infusion for 30 min then decrease by 100 units/hr = 2 mL/hr aPTT greater than 145 sec - stop infusion for 60 min then decrease by 150 units/hr = 3 mL/hr aPTT greater than 145 sec X 2 - call powerhouse attendant See Bolus dosing guidance for aPTT values less than 80 seconds under PRN medications Repeat aPTT 6 hours after initiating heparin. Then 6 hours after each dose adjustment. When 2 consecutive aPTT within target range of 80 - 114 seconds, change aPTT to once every 24 hours with A.M. labs while on heparin. RN to order required aPTT - Per Protocol, Routine Rate/Dose Change 08/11/2015 2:50 AM EST 750 Units/hr 15 mL/hr New Bag 08/11/2015 12:01 AM EST 550 Units/hr 11 mL/hr insulin aspart (NovoLOG) VIAL injection 1-4 Given 12/2015 8:28 AM EST 2 Units Units 1-4 Units, Subcutaneous, EVERY 4 HOURS SCHEDULED, First dose on Sat08/10/15 at 2145, Until Discontinued, CORRECTION BOLUS Sensitive to insulin lean patient or total daily dose of all insulin needed to achieve glycemic control less than 30 units BG 140 - 160 Give 1 unit BG 161 - 200 Give 2 units BG 201 - 240 Give 3 units BG greater than 240, give 4 units and recheck BG in 2 hours. If BG remains greater than 240, repeat 4 units (no more than three times) & call for new basal insulin orders. If less than 240 after two hours, give no insulin and resume prior schedule. Given 08/12/2015 8:50 PM EST 4 Units Given 08/12/2015 4:34 PM EST 2 Units insulin glargine (LANTUS) VIAL injection 15 Given 11/2015 8:50 PM EST 15 Units Units 15 Units, Subcutaneous, NIGHTLY, First dose on Sat08/11/15 at 2200, Until Discontinued, Routine Given 08/11/2015 10:30 PM EST 15 Units lisinopril (PRINIVIL;ZESTRIL) tablet 5 m g Given 08/13/2015 8:29 AM EST 5 mg 5 mg, Oral, DAILY, First dose on Sat08/11/15 at 0900, Until Discontinued, Routine Given 08/12/2015 8:56 AM EST 5 mg Given 08/11/2015 9:10 AM EST 5 mg magnesium sulfate 2 g in sterile water 50 Given 08/11/2015 2 :05 AM EST 2 g 25 mL/hr mL 2 g, Intravenous, ONCE, 1 dose, On Yadira 08/11/15 at 0115, Administer over 120 Minutes meTOPROLOL succinate (TOPROL-XL) XL tablet 25 Given 8:29 AM EST 25 mg mg 25 mg, Oral, DAILY, First dose on Yadira 08/11/15 at 0900, Until Discontinued, DO NOT CRUSH OR OPEN, Routine Given 08/12/2015 8:56 AM EST 25 mg Given 08/11/2015 9:09 AM EST 25 mg ondansetron (ZOFRAN) injection 4 mg Given 08/11/2015 4:37 AM EST 4 mg 4 mg, Intravenous, EVERY 8 HOURS PRN, Starting on Sat08/10/15 at 2122, Until Sat08/13/15 at 1259, Nausea pantoprazole (PROTONIX) tablet 40 mg Given 08/13/2015 8:30 AM EST 40 mg 40 mg, Oral, DAILY, First dose on Yadira 08/11/15 at 0900, Until Discontinued, DO NOT CRUSH OR OPEN, Routine Given 08/12/2015 8:56 AM EST 40 mg Given 08/11/2015 9:09 AM EST 40 mg potassium chloride (K-DUR/KLOR-CON) extended Given 10/2015 2:04 AM EST 40 mEq release tablet 40 mEq 40 mEq, Oral, ONCE, 1 dose, On Yadira 08/11/15 at 0115, 20 mEq tablet may be dissolved in water for administration, Routine potassium chloride (K-DUR/KLOR-CON) extended Given 10/2015 9:07 AM EST 40 mEq release tablet 40 mEq 40 mEq, Oral, ONCE, 1 dose, On Yadira 08/11/15 at 0800, Routine potassium chloride (K-DUR/KLOR-CON) extended Given 11/2015 8:55 AM EST 40 mEq release tablet 40 mEq 40 mEq, Oral, ONCE, 1 dose, On Sat08/12/15 at 0715, 20 mEq tablet may be dissolved in water for administration, Routine sertraline (ZOLOFT) tablet 50 mg Given 08/13/2015 8:29 AM EST 50 mg 50 mg, Oral, DAILY, First dose on Yadira 08/11/15 at 0900, Until Discontinued, Routine Given 08/12/2015 8:56 AM EST 50 mg Given 08/11/2015 9:10 AM EST 50 mg simvastatin (ZOCOR) tablet 20 mg Given 08/12/2015 8:45 PM EST 20 mg 20 mg, Oral, NIGHTLY, First dose on Sat08/10/15 at 2300, Until Discontinued, Routine Given 08/11/2015 10:53 PM EST 20 mg Given 08/10/2015 11:15 PM EST 20 mg sodium chloride 0.45% infusion New Bag 08/11/2015 11:43 AM EST 100 mL/hr 100 mL/hr 100 mL/hr, Intravenous, CONTINUOUS, Starting on Yadira 08/11/15 at 1200, Until Yadira 08/11/15 at 1420, Cath (Day of Procedure) sodium chloride 0.9 % flush 5 mL Given 08/13/2015 8:30 AM EST 5 mLs 5 mL, Intravenous, 2 TIMES DAILY, First dose on Sat08/10/15 at 2145, Until Discontinued, Routine Given 08/12/2015 8:55 PM EST 5 mLs Given 08/12/2015 8:58 AM EST 5 mLs sodium chloride 0.9 % flush 5 mL Given 08/11/2015 12:00 PM EST 5 mLs 5 mL, Intravenous, EVERY 12 HOURS, First dose on Yadira 08/11/15 at 1200, Until Discontinued, Cath (Day of Procedure), Routine sodium chloride 0.9% infusion New Bag 08/11/2015 2:25 PM EST 125 mL/hr 125 mL/hr 125 mL/hr, Intravenous, CONTINUOUS, Starting on Yadira 08/11/15 at 1445, Until Yadira 08/11/15 at 1844, Recovery (Recovery-Hospital Unit) documented in this encounter Active and Recently Administered Medications Times are shown in EST. Scheduled Medication Order 08/11/2015 08/12/2015 08/13/2015 aspirin EC tablet 81 mg (CANCELED) 0908 (Given - Provi shmuel: Olga Begum RN)1210 (SEP Hold - Provider: Admin Adt - Reason: Transfer to a Procedural area)1604 (SEP Unhold - Provider: Admin Adt) 0856 (Given - Provider: Olga Begum RN) 0829 (Given - Provider: Nani Mclean RN ) 81 mg, Oral, DAILY, First dose on Yadira 2/ 4/16 at 0900, Until Discontinued, Routine clopidogrel (PLAVIX) tablet 75 mg 0908 (Given - Provid er: Olga Begum RN)1210 (SEP Hold - Provider: Admin Adt - Reason: Transfer to a Procedural area)160 (SEP Unhold - Provider: Admin Adt) 08 (Given - Provider: Olga Begum RN) 08 (Given - Provider: Nani Mclean, JOSEPH) 75 mg, Oral, DAILY, First dose on 10/21 at 0900, Until Discontinued, Routine DAPTOmycin (CUBICIN) 280 mg in sodium chloride 0.9% 55.6 mL (CANCELED) 1357 (Given - Provider: Olga Begum RN) 280 mg (rounded from 282 mg = 6 mg/kg/do se ? 47 kg), Intravenous, EVERY 48 HOURS, 7 doses, First dose on Sat08/12/15 at 1400, Last dose on Sat08/24/15 at 1400, for 30 Minutes, Indication for (Active or Suspected): Skin/Skin Structure, Restric ayleen Antibiotic: Please indicate the most appropriate choice: ID Approval by Shannan Mai diaZEPam (VALIUM) tablet 5 mg (COMPLETED) 1144 (Given - Provider: Olga Begum RN) 5 mg, Oral, ONCE, 1 dose, Yadira 08/11/15 at 1200, Cath (Day of P rocedure), Routine diphenhydrAMINE (BENADRYL) capsule 25 mg (COMPLETED) 1 144 (Given - Provider: Olga Begum RN) 25 mg, Oral, ONCE, 1 dose, Yadira 08/11/15 at 1200, Cath (D ay of Procedure), Routine gabapentin (NEURONTIN) capsule 600 mg (CANCELED) 0910 (Given - Provider: Olga Begum RN)1210 (SEP Hold - Provider: Admin Adt - Reason: Transfer to a Procedural area)1604 (SEP Unhold - Provider: Admin Adt)2045 (Given - Provider: Elsie Sneed RN) 0856 (Given - Provider: Louie Ortega)2044 (Given - Provider: Lali Fine) 08 (Given - Provider: Nani Mclean, JOSEPH ) 600 mg, Oral, 2 TIMES DAILY, First dose on Sat08/10/15 at 2300, Until Discontinued, Routine insulin aspart (NovoLOG) VIAL injection 1-4 Units (CAN CELED) 0439 (Given - Provider: Elsie Sneed RN)0912 (Given - Provider: Olga Begum RN)1149 (Given - Provider: Olga Begum RN)1210 (SEP Hold - Provider: Admin Adt - Reason: Transfer to a Procedural area)1600 (Given - Provider: Olga Begum RN) 0000 (Not Given - Provider: Elsie burdick RN - Reason: Order parameters not met)0437 (Given - Provider: Elsie Sneed RN)0857 (Given - Provider: Olga Begum RN)1244 (Given - Provider: Olga Begum RN) 0000 (Not Given - Provider: Lali Fine - Reason: Order parameters not met)0400 (Not Given - Provider: Lali Fine - Reason: Order parameters not met)0828 (Given - Provider: Nani Mclean RN) 1-4 Units, Subcutaneous, EVERY 4 HOURS S CHEDULED, First dose on Sat08/10/15 at 2145, Until Discontinued, CORRECTION BOLUS Sensitive to insulin lean patient or total daily dose of all insulin needed t 1604 (SEP Unhold - Provider: Admin Adt)2033 (Given - Provider: Elsie Sneed RN) 1634 (Given - Provider: Olga Begum RN)2049 (Given - Provider: Lali Fine) o achieve glycemic control less than 30 units BG 140 - 160 Give 1 unit BG 161 - 200 Give 2 units BG 201 - 240 Give 3 units BG greater than 240, give 4 units and recheck BG in 2 hours. If BG remains grea ter than 240, repeat 4 units (no more th an three times) & call for new basal insulin orders. If less than 240 after two hours, give no insulin and resume prior schedule., Routine insulin glargine (LANTUS) VIAL injection 15 Units (CAN CELED) 1210 (SEP Hold - Provider: Admin Adt - Reason: Transfer to a Procedural area)1604 (SEP Unhold - Provider: Admin Adt)2230 (Given - Provider: Elsie Sneed RN) 2049 (Given - Provider: Lali Fine) 15 Units, Subcutaneous, NIGHTLY, First d ose on Yadira 08/11/15 at 2200, Until Discontinued, Routine lisinopril (PRINIVIL;ZESTRIL) tablet 5 mg 0910 (Given - Provider: Olga Begum RN)1210 ([facility] Hold - Provider: Admin Adt - Reason: Transfer to a Procedural area)1604 ([facility] Unhold - Provider: Admin Adt) 0856 (Given - Provider: Olga Begum RN) 0829 (Given - Provider: Nani Mclean, JOSEPH ) 5 mg, Oral, DAILY, First dose on Yadira 08/11 at 0900, Until Discontinued, Routine magnesium sulfate 2 g in sterile water 50 mL (COMPLETE D) 0205 (Given - Provider: Elsie Sneed, JOSEPH) 2 g, Intravenous, ONCE, 1 dose, Yadira 08/11/15 at 0115, for 120 Lyndsey epifanio meTOPROLOL succinate (TOPROL-XL) XL tablet 25 mg ([facility]) 0909 (Given - Provider: Olga Begum RN)1210 ([facility] Hold - Provider: Admin Adt - Reason: Transfer to a Procedural area)1604 ([facility] Unhold - Provider: Admin Adt) 0856 (Given - Provider: Olga Begum RN) 0829 (Given - Provider: Nani Mclean RN ) 25 mg, Oral, DAILY, First dose on Yadira 08/11/15 at 0900, Until Discontinued, DO NOT CRUSH OR OPEN, Routine pantoprazole (PROTONIX) tablet 40 mg 0909 (Given - Pro vider: Olga Begum RN)1210 ([facility] Hold - Provider: Admin Adt - Reason: Transfer to a Procedural area)1604 ([facility] Unhold - Provider: Admin Adt) 0856 (Given - Provider: Olga Begum RN) 0830 (Given - Provider: Nani Mclean, JOSEPH ) 40 mg, Oral, DAILY, First dose on Yadira 08/11/15 at 0900, Until Discontinued, DO NOT CRUSH OR OPEN, Routine potassium chloride (K-DUR/KLOR-CON) extended release t ablet 40 mEq (COMPLETED) 0204 (Given - Provider: Elsie Sneed, JOSEPH) 40 mEq, Oral, ONCE, 1 dose, Yadira 08/11/15 a t 0115, 20 mEq tablet may be dissolved in water for administration, Routine potassium chloride (K-DUR/KLOR-CON) extended release t ablet 40 mEq (COMPLETED) 0907 (Given - Provider: Olga Begum RN) 40 mEq, Oral, ONCE, 1 dose, Sat08/11/15 at 0800, Routine potassium chloride (K-DUR/KLOR-CON) extended release tablet 40 mEq (COMPLETED) 0855 (Given - Provider: Olga Begum RN) 40 mEq, Oral, ONCE, 1 dose, Sat08/12/15 a t 0715, 20 mEq tablet may be dissolved in water for administration, Routine sertraline (ZOLOFT) tablet 50 mg (CANCELED) 0910 (Give n - Provider: Olga Begum RN)1210 (MAR Hold - Provider: Admin Adt - Reason: Transfer to a Procedural area)1604 (MAR Unhold - Provider: Admin Adt) 0856 (Given - Provider: Olga Begum RN) 0829 (Given - Provider: Nani Mclean RN ) 50 mg, Oral, DAILY, First dose on 10/21 at 0900, Until Discontinued, Routine simvastatin (ZOCOR) tablet 20 mg (CANCELED) 1210 (MAR Hold - Provider: Admin Adt - Reason: Transfer to a Procedural area)1604 (MAR Unhold - Provider: Admin Adt)225 (Given - Provider: Elsie Sneed RN) 2044 (Given - Provider: Lali Fine) 20 mg, Oral, NIGHTLY, First dose on Sat08/10/15 at 2300, Until Discontinued, Routine sodium chloride 0.9 % flush 5 mL (CANCELED) 0912 (Give n - Provider: Olga Begum RN)1210 (MAR Hold - Provider: Admin Adt - Reason: Transfer to a Procedural area)1604 (MAR Unhold - Provider: Admin Adt)204 (Given - Provider: Elsie Sneed RN) 0858 (Given - Provider: Louie Ortega)2054 (Given - Provider: Lali Fine) 0830 (Given - Provider: Nani Mclean RN ) 5 mL, Intravenous, 2 TIMES DAILY, First dose on Sat08/10/15 at 2145, Until Discontinued, Routine sodium chloride 0.9 % flush 5 mL (CANCELED) 1200 (Give n - Provider: Olga Begum RN) 5 mL, Intravenous, EVERY 12 HOURS, First dose on Yadira 08/11/15 at 1200, Until Discontinued, Cath (Day of Procedure), Routine Continuous Medication Order 08/11/2015 08/12/2015 08/13/2015 heparin 25,000 units in dextrose 5% 500 mL infusion (C ANCELED) 0001 (New Bag - Provider: Elsie Sneed, JOSEPH)0250 (Rate/Dose Change - Provider: Elsie Sneed, JOSEPH)0742 (Rate/Dose Change - Provider: Elsie Sneed, JOSEPH)1210 (SEP Hold - Provider: Admin Adt - Reason: Transfer to a Procedural area) 350-7,000 Units/hr (7-140 mL/hr), Intrav enous, at 7-140 mL/hr, CONTINUOUS, Starting 08/10/15 at 2045, Until 08/13/15 at 1259, Patient Weight 45-49 kg Initial dose - 550 units/hr = 11 mL/hr aPTT les 1604 (SEP Unhold - Provider: Admin Adt) s than 60 sec - increase by 200 units/hr = 4 mL/hr aPTT 60-79 sec- increase by 100 units/hr = 2 mL/hr aPTT 80-114 sec - no change aPTT 115-129 sec - decrease by 50 units/hr = 1 mL/hr aPTT 130-145 sec - stop infusion for 30 min then decrease b y 100 units/hr = 2 mL/hr aPTT greater than 145 sec - stop infusion for 60 min then decrease by 150 units/hr = 3 mL/hr aPTT greater than 145 sec X 2 - call house o fficer See Bolus dosing guidance for aPTT values less than 80 seconds under PRN medications Repeat aPTT 6 hours after initiating heparin. Then 6 hours after each dose adjustment. When 2 consecutive a PTT within target range of 80 - 114 seco nds, change aPTT to once every 24 hours with A.M. labs while on heparin. RN to order required aPTT - Per Protocol, Routine sodium chloride 0.45% infusion (CANCELED) 1143 (New Ba g - Provider: Olga L Bent, RN) 100 mL/hr, at 100 mL/hr, Intravenous, CO NTINUOUS, Starting Yadira 08/11/15 at 1200, Until Yadira 16 at 1420, Cath (Day of Procedure) sodium chloride 0.9% infusion () 1425 (New Bag - Provider: Elicia Hatch RN) 125 mL/hr, at 125 mL/hr, Intravenous, CO NTINUOUS, Starting Yadira 08/11/15 at 1445, Until Yadira 08/11/15 at 1844, Recovery (Recovery-Hospital Unit) PRN Medication Order 08/11/2015 08/12/2015 08/13/2015 acetaminophen (TYLENOL) tablet 325 mg (CANCELED) 1210 (SEP Hold - Provider: Admin Adt - Reason: Transfer to a Procedural area)1604 (SEP Unhold - Provider: Admin Adt)2045 (Given - Provider: Elsie Sneed, JOSEPH) 325 mg, Oral, EVERY 4 HOURS PRN, Startin g 08/10/15 at 2122, Until 08/13/15 at 1259, Pain, Maximum dose of acetaminophen is 4000 mg from all sources in 24 hours., Routine fentaNYL 50 mcg/mL multi-dose injection (CANCELED) 123 7 (Given - Provider: Alexa Del Rosario RN)1332 (Given - Provider: Rosy Osorio RN) ONCE PRN, Starting Yadira 08/11/15 at 1237, U ntil Yadira 16 at 1407, Intra-Operative (Intra-Procedure), Routine heparin (porcine) injection 1,400-2,800 Units (CANCELE D) 0250 (Given - Provider: Elsie Sneed, JOSEPH)0743 (Given - Provider: Elsie Sneed, JOSEPH)1210 (SEP Hold - Provider: Admin Adt - Reason: Transfer to a Procedural area)1604 (SEP Unhold - Provider: Admin Adt) 1,400-2,800 Units, Intravenous, BOLUS PE R HEPARIN PROTOCOL, Starting 08/10/15 at 2018, Until 08/13/15 at 1259, Per Protocol, Adjust to dosing chart, Patient Weight 45-49 kg aPTT less than 60 second s - 2,800 units aPTT 60-79 seconds - 1,4 00 units aPTT 80-114 seconds - no bolus Repeat aPTT 6 hours after initiating heparin. Then 6 hours after each dose adjustment. When 2 consecutive aPTT within tar get range of 80 - 114 seconds, change aP TT to once every 24 hours with A.M. labs while on heparin., RN to order required aPTT - Per Protocol, Routine heparin (porcine) injection (CANCELED) 1245 (Given - P rovider: Alexa Del Rosario RN)1257 (Given - Provider: Alexa Del Rosario RN) ONCE PRN, Starting Yadira 216 at 1245, U ntil Yadira 2/16 at 1420, Cath (Intra- Procedure), Routine LORazepam (ATIVAN) tablet 0.5 mg 1210 (SEP Hold - Prov ider: Admin Adt - Reason: Transfer to a Procedural area)1604 (SEP Unhold - Provider: Admin Adt) 0.5 mg, Oral, EVERY 6 HOURS PRN, Startin g 08/10/15 at 2122, Until 08/13/15 at 1259, Anxiety, Routine midazolam (PF) (VERSED) 1 mg/mL multi-dose injection ( CANCELED) 1237 (Given - Provider: Alexa Del Rosario RN)1332 (Given - Provider: Rosy Osorio RN) ONCE PRN, Starting Yadira 216 at 1237, U ntil Yadira 2/16 at 1407, Cath (Intra- Procedure), Routine nitroGLYcerin (NITROSTAT) SL tablet 0.4 mg 1210 (SEP H old - Provider: Admin Adt - Reason: Transfer to a Procedural area)1604 ([facility] Unhold - Provider: Admin Adt) 0.4 mg, Sublingual, EVERY 5 MIN PRN, Sta rting 08/10/15 at 2122, Until Sat 216 at 1259, Chest pain, May repeat every 5 minutes for a total of three doses. Notify provider if chest pain not relieved with nitroglycerin. Do not administer ni troglycerin if the patinet has received or taken phosphodiesterase (PDE-5) inhibitors such as sildenafil, tadalafil or vardenafil within the last 24 to 72 hours., Routine nitroGLYcerin 100 mcg/mL intracoronary dilution (CANCE LED) 1241 (Given - Provider: Sallie Colunga MD)1311 (Given - Provider: Sallie Colunga MD)1343 (Given - Provider: Sallie Colunga MD)1351 (Given - Provider: Shannan Thornton MD) ONCE PRN, Starting Yadira 216 at 1241, U ntil Yadira 2//16 at 1420, Cath (Intra- Procedure), Routine ondansetron (ZOFRAN) injection 4 mg (CANCELED) 0437 (G iven - Provider: Elsie Sneed, RN)1210 (SEP Hold - Provider: Admin Adt - Reason: Transfer to a Procedural area)1604 (SEP Unhold - Provider: Admin Adt) 4 mg, Intravenous, EVERY 8 HOURS PRN, St arting 08/10/15 at 2122, Until 08/13/15 at 1259, Nausea sodium chloride 0.9% infusion (CANCELED) 1345 (New Bag - Provider: Alexa Del Rosario, JOSEPH) CONTINUOUS PRN, Starting Yadira 08/11/15 at 1 345, Until Yadira 16 at 1420, Cath (Intra-Procedure) verapamil (ISOPTIN) injection (CANCELED) 1241 (Given - Provider: Sallie Colunga MD) ONCE PRN, Starting Yadira 16 at 1241, U ntil Yadira 2/16 at 1407, for 2 Minutes, Cath (Intra-Procedure) documented in this encounter Care Teams Take Down Sorter Relationship Specialty Start Date End Date Gordy Moon MD PCP - General Family Medicine 05/19/15 [address] [place] [address] documented as of this encounter
--- OUTSIDE RECORDS SUMMARY | 2022-01-25 00:55 | XMS_ITS | Encounter Summary ---
:1950 Author Organization [facility] Address [address] [place] [address] Care Team Providers Name Role Phone Gordy Gregg MD Primary Care Provider [phone] Encounter Details Date Type Department Care Team Description 08/09/2015 Hospital Encounter Radiology Library at [facility] [place]endo, [place] [address] Social History Tobacco Use Types Packs/Day Years Used Date Never Smoker Smokeless Tobacco: Never Used Alcohol Use Standard Drinks/Week Comments No 0 (1 standard drink = 0.6 oz pure alcoho l) Sex Assigned at Date Recorded Not on file documented as of this encounter Medications at Time of Discharge Medication Sig Dispensed Refills Start Date End Date gabapentin (NEURONTIN) Take 2 capsules by 90 [...] for Pain (mild to moderate pain (1-6)). meTOPROLOL succinate Take 1 tablet by mouth [...] Name Priority Date/Time Associated Diagnosis Comme nts FILM LIBRARY Routine 08/09/2015 12:00 AM Pain Results for this STORAGE ONLY DX EST procedure ar e in CHEST the results section. documented in this encounter Results Film Library- Storage only DX Chest (08/09/2015 12:00 AM EST) Specimen (Source) Anatomical Location Collection Method / Collectio n Time Received Time / Laterality Volume Narrative NURIS - 08/10/2015 5:56 PM EST See PACS for result report. Dr Boogie [facility] FILM LIBRARY ORDERABLES Performing Organization Address City/State/ZIP Code Phon e Number [place], [place] documented in this encounter Visit Diagnoses Diagnosis Pain Generalized pain documented in this encounter Care Teams Third Cook Relationship Specialty Start Date End Date Gordy Gregg MD PCP - General Family Medicine 05/19/[address] [place] [address] documented as of this encounter
--- OUTSIDE RECORDS SUMMARY | 2022-01-25 00:55 | XMS_ITS | Encounter Summary ---
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; [facility] [place] [address] [place] (peripheral artery disease) [facility] [place] [id number] [phone] Social History Tobacco Use Types Packs/Day Years Used Date Never Smoker Smokeless Tobacco: Never Used Alcohol Use Standard Drinks/Week Comments No 0 (1 standard drink = 0.6 oz pure alcoho l) Sex Assigned at Date Recorded Not on file documented as of this encounter Last Filed Vital Signs Vital Sign Reading Time Taken Comments Blood Pressure 175/70 10/11/2015 1:08 PM EDT Pulse 61 10/11/2015 1:08 PM EDT Temperature - - Respiratory Rate 20 10/11/2015 1:08 PM EDT Oxygen Saturation - - Inhaled Oxygen Concentration - - Weight 47.6 kg (105 lb) 10/11/2015 1:08 PM EDT Height 152.4 cm (5') 10/11/2015 1:08 PM EDT Body Mass Index 20.51 10/11/2015 1:08 PM EDT documented in this encounter Patient Instructions Patient InstructionsRadha Waller PA - 10/11/2015 3:09 PM EDT This patient may continue with local care to the left groin as per the instructions below. If there are any concerns with this treatment she should call the office. If the wound is not healed in 3 weeks then she should schedule a follow up visit to reevaluate the wound. Otherwise, if it does heal to co mpletion (which VNA can help to monitor at home) then we can see her in 3 months with a repeat rightleg SOSA at that time. Certainly, if she develops any rest pain or tissue loss on the right we must be notified. She can start a stump building and construction manager on the left and the process to obtain a prosthesis. VNA instructions: Discontinue VAC if not already sent back *Silver nitrate was applied today (10/11/15) in office so expect discoloration of wound for several days. May continue a silver foam dressing to left groin wound - change 2-3 times per week Cover with dry dressing - change as often as needed to manage drainage Pt may shower prior to dressing changes Please monitor wound until complete closure - if not healed within 3 weeks then patient must make a follow up appointment with vascular, otherwise, will see in 3 months. Please watch for any signs of infection which can include redness, swelling, increasing drainage, warmth to the incisional area, foul odor, and fever or chills. If any of these develop near your wound then please contact the office. Will reevaluate in the office in 3 months. documented in this encounter Progress Notes Radha Waller PA - 10/11/2015 2:59 PM EDT This patient returned to the vascular clinic today for a follow up visit for a post-op check after her left AKA and reevaluation of her left groin wound. She continues to have the support of PT/OT/VNA in her home and has continued to see improvements in her overall condition . She reports that her left groin wound has decreased in size and depth since the last visit. The VNA is now applying silver foam every 2-3 days to this area. She has noticed much less drainage and denies any sympotms of wound infection. She is starting to work with a company near her home to obtain a stump building and construction manager and a prosthesis and requested a script for this today. She has not had any new chest pain or shortness of breath and remains on a high protein low cholesterol/carb diet. PMHx: Past Medical History Diagnosis Date ??? HTN (hypertension) ??? DM (diabetes mellitus) metformin ??? Hypercholesterolemia ??? PVD (peripheral vascular disease) ??? HLD (hyperlipidemia) 03/24/2015 ??? Critical lower limb ischemia 07/23/2015 07/29/2015: Left AKA 07/27/2015: Left groin sartorius flap 07/24/2015: LLE guillotine amp, removal PTFE graft, left groin wound vac placement SxHx: Past Surgical History Procedure Laterality Date ??? Skin graft Left left 2nd metacarpal ??? Pro vein bypass graft, fem-tibial Left 03/18/2015 Left SFA to peroneal bypass with vein ??? Pro bypass graft othr, fem-tibial Left 05/26/2015 @BYPASS GRAFT, FEM-ANT TIBIAL, -POST TIBIAL, -PERONEAL, -DP W\ SYNTHETIC CONDUIT performed by Mariano Doyle MD at [facility] MAIN OR ??? Pro bypass graft vein patch/cuff, synthetic Left 05/26/2015 PLACEMENT VEIN PATCH OR CUFF AT DISTAL ANASTOMOSIS OF BYPASS GRAFT, SYNTHETIC CONDUIT , RODRIGUEZ-COLLAR, RACHELLE-PATCH, ADD-ON CODE, LOWER EXTREMITY performed by Mariano Doyle MD at [facility] MAIN OR ??? Pro thromboendartectmy iliofemoral Left 05/26/2015 @ENDARTERECTOMY, ILIOFEMORAL W OR W/O PATCH GRAFT performed by Mariano Doyle MD at [facility] MAIN OR ??? Pro reoperation, bypass graft Left 05/26/2015 @RE-OP FOR RE-DO LOWER EXTREMITY BYPASS GRAFT, >1 MONTH P\ ORIGINAL SURGERY, ADD-ON CODE performed by Mariano Doyle MD at [facility] MAIN OR ??? Pro amputation low leg, circular Left 07/24/2015 @AMPUTATION, BELOW-KNEE, OPEN, GUILLOTINE performed by Elicia Caal MD at [facility] MAIN OR ??? Pro exploration, femoral artery Left 07/24/2015 @EXPLORATION, W/WO LYSIS, FEMORAL ARTERY W\O SURGICAL REPAIR performed by Elicia Caal MD at [facility] MAIN OR ??? Pro negative pressure wound therapy, less than or equal to 50 sqcm Left 07/24/2015 DRESSING CHANGE (VAC ASSISTED) UP TO 50SQ.CM performed by Elicia Caal MD at [facility] MAIN OR ??? Pro rebl ves direct, low extrem Left 07/24/2015 REPAIR LOWER EXTREMITY BLOOD VESSEL, DIRECT, NO PATCH OR GRAFT performed by Elicia Caal MD at [facility] MAIN OR ??? Pro excision, infec graft, extremity Left 07/24/2015 EXCISION OF INFECTED GRAFT FROM LOWER EXTREMITY performed by Elicia Caal MD at [facility] OR ??? Pro muscle-skin flap, leg Left 07/27/2015 FLAP, MYOCUTANEOUS OR FASCIOCUTANEOUS, LOWER EXTREMITY performed by Elicia Caal MD at [facility] MAIN OR ? ? Pro debridement subcutaneous tissue 20 sqcm/< Left 07/27/2015 DEBRIDEMENT SKIN AND SUBCU, LOWER EXTREMITY performed by Elicia Caal MD at [facility] OR ??? Pro dressing change under anesthesia Left 07/29/2015 DRESSING CHANGE (FOR OTHER THAN ESCALANTE) UNDER ANES., LOWER EXTREMITY performed by Elicia Caal MD at [facility] OR ??? Pro amputate thigh, secondry closur Left 07/29/2015 AMPUTATION, ABOVE-KNEE, SECONDARY CLOSURE OR SCAR REVISION performed by Elicia Caal MD at [facility] OR Social Hx: History Substance Use Topics ??? Smoking status: Never Smoker ??? Smokeless tobacco: Never Used ??? Alcohol Use: No Medications: Medications 10/11/15 3174 Medication Sig Taking? traZODone (DESYREL) 50 mg Tablet Take 50 [...] All other ROS negative Physical Exam: Vitals: Filed Vitals: 10/11/15 1308 BP: 175/70 Pulse: 61 Resp: 20 Gen: No acute distress. HEENT: Normocephalic, atraumatic. No scleral icterus. (+) glasses Neck: Supple, no JVD. Heart: Regular rate and rhythm. Lungs: Regular respiratory rate with no increased work of breathing. Abd: Soft, nontender, not distended. Audible bowel sounds. No bruits or pulsatile mass on exam. Extremities: Left groin wound - 100% hypergranular tissue raised above the skin level. There was no malodor, purulence, or surrounding erythema. This was treated today with 1 silver nitrate stick which was well tolerated without pain to the patient. Left AKA incision - well approximated. No fluctuance, discoloration of stump, or erythema. No demarcation of skin margins. Right foot - no tissue loss. Mild dependant rubor of forefoot present. No gross motor/sensory deficits on exam. Vascular Exam: R L Radial 2/2 2/2 Femoral 2/2 Unable to assess due to wound Popliteal 0/2 DP 0/2 PT 0/2 Psych: AAOx3 Impression: s/p left AKA, s/p resection infected LLE bypass graft with left groin wound sartorius muscle flap and VAC placement, atherosclerotic PAD, recent NSTEMI & CHF admission, recent PANDA Recommendations: This patient may continue with local care to the left groin as per the instructionsbelow. If there are any concerns with this treatment she should call the office. If the wound is nothealed in 3 weeks then she should schedule a follow up visit to reevaluate the wound. Otherwise, if it does heal to completion (which VNA can help to monitor at home) then we can see her in 3 months with a repeat right leg SOSA at that time. Certainly, if she develops any rest pain or tissue loss on the right we must be notified. She can start a stump building and construction manager on the left and the process to obtain a prosthesis. VNA instructions: Discontinue VAC if not already sent back May continue a silver foam dressing to left groin wound - change 2-3 times per week Cover with dry dressing - change as often as needed to manage drainage Pt may shower prior to dressing changes Please monitor wound until complete closure - if not healed within 3 weeks then patient must make a follow up appointment with vascular, otherwise, will see in 3 months. Please watch for any signs of infection which can include redness, swelling, increasing drainage, warmth to the incisional area, foul odor, and fever or chills. If any of these develop near your wound then please contact the office. Will reevaluate in the office in 3 months. documented in this encounter Plan of Treatment Not on filedocumented as of this encounter Results SOSA, legs, multiple levels (02/21/2016 10:23 AM EDT) Component Value Ref Test Analysis Performed At [facility] gist Range Method Time Signature VB Text Department: Vascular Surgery Lab VASCUBASE Report Patient: [id number] (CARRIE PERRY) CPT: 15753 ICD10: Z89.612;I73.9 Referring Physician: NATANAEL NUÑEZ ?? [...] unspecified documented in this encounter Care Teams Cocoa Mill Operator Relationship Specialty Start Date End Date Gordy Gregg MD PCP - General Family Medicine 05/19/[address] [place] [address] documented as of this encounter
--- OUTSIDE RECORDS SUMMARY | 2022-01-25 00:55 | XMS_ITS | Encounter Summary ---
:1950 Author Organization [facility] [place] [address] Care Team Providers Name Role Phone Gordy Gregg MD Primary Care Provider [phone] Encounter Details Date Type Department Care Team Description 08/17/2015 Office Visit Nephrology Hypertension Donya Awad MD [facility] [place] [address] PANDA (acute kidney at [facility] Maria Hernandez MD [facility] [place] [address] injury) [place] [phone] Social History Tobacco Use Types Packs/Day Years Used Date Never Smoker Smokeless Tobacco: Never Used Alcohol Use Standard Drinks/Week Comments No 0 (1 standard drink = 0.6 oz pure alcoho l) Sex Assigned at Date Recorded Not on file documented as of this encounter Last Filed Vital Signs Vital Sign Reading Time Taken Comments Blood Pressure 134/78 08/16/2015 10:02 PM EST Pulse 72 08/16/2015 10:02 PM EST Temperature - - Respiratory Rate - - Oxygen Saturation - - Inhaled Oxygen Concentration - - Weight 41.7 kg (92 lb) 08/16/2015 10:02 PM EST Height 152.4 cm (5') 08/16/2015 10:02 PM EST Body Mass Index 17.97 08/16/2015 10:02 PM EST documented in this encounter Progress Notes Donya Awad MD - 08/18/2015 4:10 PM EST Nephrology Attending Carrie Hurst was seen and examined with the Renal Fellow Dr Hernandez The data and chart were reviewed. My findings and recommendations are accurately detailed in the note above. The findings, recommendations, and plan for ongoing care were discussed with the patient and the Renal Fellow ARET Hernandez Maria - 08/17/2015 5:01 PM EST [facility] Nephrology/Hypertension Follow Up Carrie Hurst [id number] 1950 ID: [id number] y.o. female for post hospital follow up PAST MEDICAL HX: Past Medical History Diagnosis Date ??? HTN (hypertension) ??? DM (diabetes mellitus) metformin ??? Hypercholesterolemia ??? PVD (peripheral vascular disease) ??? HLD (hyperlipidemia) 03/24/2015 Initial consult for : 64 yo lady with no known renal Hx admitted for wet gangrene of her left lower extremity is s/p BKA. We are consulted for worsening of kidney function. acute on CKD could be a combination of multiple factors: low BP episodes during surgery with ATN/lisinopril and metformin which could have contributed. Subjective: In the interim she was re admitted for more vascular issues and then again just last week for nstemineeding PCI on 08/13/15. She has been restarted on lisinopril. We obtained 24 hr collection in the hospital showing a GFR of 29 ~ on 08/02. She has since then recovered and now her Scr is down to <1. She is currently in a swing bed at [facility] and feeling better, eating better. Wound healing well. She is on q 48 hr dosed daptomycin via PICC line. No urinary issues. ROS: -no fever, chills, night sweats -no headache, blurring of vision, diplopia -no dysphagia, hearing problems -no chest pain, palpitation, no SAUER, orthopnea -no cough or SOB -no abdominal pain, nausea, vomiting or diarrhea -no rash -no neuropathy -no LE swelling Medications: Prior to Admission medications Medication Sig Start Date End Date Taking? Authorizing Provider clopidogrel (PLAVIX) 75 mg Tablet Take 1 tablet by mouth daily. 08/13/15 Yes Bree Enciso PA lisinopril (PRINIVIL;ZESTRIL) 5 mg Tablet Take 1 tablet by mouth daily. 08/13/15 Yes Bree Enciso PA LORazepam (ATIVAN) 0.5 mg Tablet Take 1 tablet by mouth every 6 hours as needed for Anxiety. 08/13/15 Yes Bree Enciso PA nitroGLYcerin (NITROSTAT) 0.4 mg Tablet, Sublingual Place 1 tablet under the tongue every 5 minutes as needed for Chest pain. 08/13/15 Yes Bree Enciso PA pantoprazole (PROTONIX) 40 mg Tablet, Delayed Release (E.C.) Take 1 tablet by mouth daily. 08/13/15 Yes Bree Enciso PA gabapentin (NEURONTIN) 300 mg Capsule Take 2 capsules by mouth 2 times daily. Indications: Neuropathic Pain 08/03/15 Yes Mariano Miramontes MD insulin aspart (NOVOLOG) Solution Inject 1-4 Units subcutaneously every 4 hours. 08/03/15 Yes Mariano Miramontes MD oxyCODONE (ROXICODONE) 5 mg Tablet Take 1 tablet by mouth every 4 hours as needed for Pain (mild to moderate pain (1-6)). 08/03/15 Yes Mariano Miramontes MD sertraline (ZOLOFT) 50 mg Tablet Take 50 mg by mouth daily. Yes PROVIDER, HISTORICAL meTOPROLOL succinate (TOPROL-XL) 25 mg Tablet Sustained Release 24 hr Take 1 tablet by mouth daily. 04/15/15 Yes Michael Luong PA multivitamin (THERAGRAN) Tablet Take 1 tablet by mouth daily. Yes PROVIDER, HISTORICAL aspirin 81 mg Tablet, Delayed Release (E.C.) Take 1 tablet by mouth daily. 03/16/15 Yes Siva Whitaker MD simvastatin (ZOCOR) 20 mg Tablet Take 20 mg by mouth nightly. Yes PROVIDER, HISTORICAL acetaminophen (TYLENOL) 325 mg Tablet Take 325 mg by mouth every 4 hours as needed for Pain. Yes PROVIDER, HISTORICAL Allergies / ADRs: No Known Allergies PHYSICAL EXAM: Filed Vitals: 02/09/16 2202 BP: 134/78 Pulse: 72 Gen - AAO x 3 in NAD Skin - No rash HEENT - Moist mucous membranes Chest: Lungs clear to auscultation, no wheezes/ rhonchi/ crackles. Heart - S1/S2 normal, no murmur, gallop, or rub. JVP not elevated. Abd - Soft. + BS. No bruit. Non tender. No organomegaly. Ext - Warm. No cyanosis. No dependent edema. Ryley CARRILLO Labs/ Imaging: Component Latest Ref Rng 08/12/2015 WBC 4.0 - 10.0 x10(3)/mcL 8.4 RBC 3.93 - 5.22 x10(6)/mcL 3.90 (L) Hemoglobin 11.2 - 15.7 gm/dL 11.3 Hematocrit 34.0 - 45.0 % 35.0 MCV 79.0 - 94.0 fL 89.7 MCH 26.6 - 32.2 pg 29.0 MCHC 32.0 - 36.5 gm/dL 32.3 Platelets 145 - 370 x10(3)/mcL 334 RDWSD 35.0 - 46.0 fL 51.3 (H) RDWCV 10.9 - 14.4 % 15.9 (H) MPV 9.0 - 12.0 fL 10.5 Glucose Fasting 65 - 99 mg/dL 160 (H) BUN 8 - 18 mg/dL 17 Creatinine 0.70 - 1.20 mg/dL 0.98 Sodium 135 - 145 mmol/L 139 Potassium 3.5 - 5.0 mmol/L 3.7 Chloride 98 - 107 mmol/L 100 CO2 22 - 31 mmol/L 27 Anion Gap 5 - 15 mmol/L 12 Calcium 8.5 - 10.5 mg/dL 8.2 (L) Estimated GFR >=60 57 (L) Impression/ Plan: Panda in the setting of sepsis, vascular surgery, probable metformin use + lisinopril use in the ed operative period. With now Ryley CARRILLO. Slot Router clearance seems to have improved but still due to weight loss and poor muscle loss is not appropriately reflected via MDRD equation. Estimation from her 24 hr urine studies will show GFR ~ 35. Recent NSTEMI, s/ cath and PCI, now restarted on ACEi Systolic HF EF ~ 35%. Plan: Will dose her meds at GRr ~35. Suggest to re check labs again at [facility] on Saturday and fax to us. Follow up: decide depending upon following rubber cutter and shape carver. Seen and Discussed w/ Dr. Ritesh Hernandez MD Nephrology Fellow Pager# [phone] GORDY GREGG MD [address] [place] [address] documented in this encounter Plan of Treatment Not on filedocumented as of this encounter Visit Diagnoses Diagnosis PANDA (acute kidney injury) Acute kidney failure, unspecified documented in this encounter Care Teams Blockers Skiver Relationship Specialty Start Date End Date Gordy Gregg MD PCP - General Family Medicine 05/19/[address] [place] [address] documented as of this encounter
--- OUTSIDE RECORDS SUMMARY | 2022-01-25 00:55 | XMS_ITS | Encounter Summary ---
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; [facility] [address] PAD (peripheral artery disease) [facility] [place] [phone] Social History Tobacco Use Types Packs/Day Years Used Date Never Smoker Smokeless Tobacco: Never Used Alcohol Use Standard Drinks/Week Comments No 0 (1 standard drink = 0.6 oz pure alcoho l) Sex Assigned at Date Recorded Not on file documented as of this encounter Last Filed Vital Signs Vital Sign Reading Time Taken Comments Blood Pressure 150/63 08/17/2015 2:58 PM EST Pulse 69 08/17/2015 2:58 PM EST Temperature - - Respiratory Rate 20 08/17/2015 2:58 PM EST Oxygen Saturation - - Inhaled Oxygen Concentration - - Weight 41.7 kg (92 lb) 08/17/2015 2:58 PM EST Height 152.4 cm (5') 08/17/2015 2:58 PM EST Body Mass Index 17.97 08/17/2015 2:58 PM EST documented in this encounter Patient Instructions Patient InstructionsRadha Waller PA - 08/17/2015 3:29 PM EST Wound care instructions: Left groin wound - Please continue wound VAC at 125 mmHg continuous pressure with VAC changes three times per week Left AKA stump - please apply dry dressing to stump to provide protection to area until all the eschar is completely removed from the incision. Ok to wash with soap and water gently daily and dry completely. May use MARLYN wrap for now but should not start stump bridal sales consultant until incision line free of eschar. Will reevaluate in 1 month so long as condition continues to improve. Please contact us with any deterioration of her condition. documented in this encounter Progress Notes Radha Waller PA - 08/17/2015 3:31 PM EST This patient returned to the vascular clinic today for a follow up visit for a post-op check after her left AKA and reevaluation after her recent admission. This patient developed claudication in October 2014 which quickly progressed to rest pain. She underwent a left SFA to peroneal bypass with vein on 03/18/15. On 05/19/15 this bypass graft was noted to be occluded and her rest pain returned. She underwent a second left leg bypass in the form of a left CFAto PT bypass with PTFE graft on 05/26/15. This was also found to have occluded on 06/01/15. After that the patient had progressive worsening of her medial/distal surgical incision that failed to heal. She had no additional revascularization options and was offered the option to enroll in the [facility] stemcell trial, but declined. On 07/20/15 she presented to [facility] with SIRS physiology which was felt to be related to her leg wound. She initially declined transfer to [facility] for amputation and was admitted and started on antibiotics. However, she conceded to transfer to [facility] and was admitted on 07/23/2015. Upon admission her wound had progressed to wet gangrene. She initially, on 07/24/15, underwent a left below knee guillotine amputation and during her surgery large amounts of purulent drainage were expressed from the PTFE graft tunnel. A fluid collection in the left groin was aspirated and confirmed infection was present there as well so the decision was made to explant the entire PTFE graft. The left groin incision was re-opened and explored which revealeda healthy appearing artery, but the prior bovine patch and PTFE anastomosis were infected and subsequently excised. The SENIOR PROCESS CONTROL TECH was debrided and repaired with a new bovine pericardial patch. She was taken back to the OR on 07/27/15 for a left groin wound exploration and washout which revealed no evidence of residual infection. A sartorious muscle flap was created to cover the patched femoral artery and then a VAC dressing was applied. Finally, she returned to the OR on 07/29/2015 for a final completion AKA. Prior to discharge on 08/03/15 Infectious Disease reccommended continued treatment with IV Dapto via a PICC line which was placed the day of discharge. She was seen by nephrology because of PANDA and has had follow up with them as an outpatient. She was transferred to a rehab unit in [facility]. Notably, she was readmitted on 08/08/15 to [facility] because of acute onset SOB and chest pain and diagnosed with an NSTEMI. She was transferred back to [facility] on 08/10/15 and was evaluated by the cardiac team but did not require any coronary interventions. She had a component of heart failureas well but at the time of discharge she was euvolemic. Her Cr was stable at 1.29 and she was asked to continue aspirin and Plavix for at least 1 year. Infectious disease updated her antibiotic care plan to include: increasing daptomycin dose to 355 mg IV q 24 hours through 08/21/15 and then oral doxycycline 100 mg po bid for two weeks following completion of daptomycin. She was transferred back to her rehab facility on 08/12/15. Today she reports that her left AKA stump site has remained stable and she had no complaints with the incision line there. She continues to have VAC therapy to the left groin wound which continues to make slow but steady progress towards healing. She denies problems with her right leg and has not developed any rest pain or tissue loss there. She remains afebrile without fevers/chills. She has not hadany ongoing chest pain or shortness of breath. She is on a high protein low cholesterol/carb diet ather facility. PMHx: Past Medical History Diagnosis Date ??? HTN (hypertension) ??? DM (diabetes mellitus) metformin ??? Hypercholesterolemia ??? PVD (peripheral vascular disease) ??? HLD (hyperlipidemia) 03/24/2015 SxHx: Past Surgical History Procedure Laterality Date ??? Skin graft Left left 2nd metacarpal ??? Pro vein bypass graft, fem-tibial Left 03/18/2015 Left SFA to peroneal bypass with vein ??? Pro bypass graft othr, fem-tibial Left 05/26/2015 @BYPASS GRAFT, FEM-ANT TIBIAL, -POST TIBIAL, -PERONEAL, -DP W\ SYNTHETIC CONDUIT performed by Mariano Doyle MD at [facility] OR ??? Pro bypass graft vein patch/cuff, synthetic Left 05/26/2015 PLACEMENT VEIN PATCH OR CUFF AT DISTAL ANASTOMOSIS OF BYPASS GRAFT, SYNTHETIC CONDUIT , MICHAEL-COLLAR, RACHELLE-PATCH, ADD-ON CODE, LOWER EXTREMITY performed by Mariano Doyle MD at [facility] OR ??? Pro thromboendartectmy iliofemoral Left 05/26/2015 @ENDARTERECTOMY, ILIOFEMORAL W OR W/O PATCH GRAFT performed by Mariano Doyle MD at [facility] OR ??? Pro reoperation, bypass graft Left 05/26/2015 @RE-OP FOR RE-DO LOWER EXTREMITY BYPASS GRAFT, >1 MONTH P\ ORIGINAL SURGERY, ADD-ON CODE performed by Mariano Doyle MD at [facility] OR ??? Pro amputation low leg, circular Left 07/24/2015 @AMPUTATION, BELOW-KNEE, OPEN, GUILLOTINE performed by Elicia Caal MD at [facility] OR ??? Pro exploration, femoral artery Left 07/24/2015 @EXPLORATION, W/WO LYSIS, FEMORAL ARTERY W\O SURGICAL REPAIR performed by Elicia Caal MD at [facility] OR ??? Pro negative pressure wound therapy, less than or equal to 50 sqcm Left 07/24/2015 DRESSING CHANGE (VAC ASSISTED) UP TO 50SQ.CM performed by Elicia Caal MD at [facility] OR ??? Pro rebl ves direct, low extrem Left 07/24/2015 REPAIR LOWER EXTREMITY BLOOD VESSEL, DIRECT, NO PATCH OR GRAFT performed by Elicia Caal MD at [facility] OR ??? Pro excision, infec graft, extremity Left 07/24/2015 EXCISION OF INFECTED GRAFT FROM LOWER EXTREMITY performed by Elicia Caal MD at [facility] OR ??? Pro muscle-skin flap, leg Left 07/27/2015 FLAP, MYOCUTANEOUS OR FASCIOCUTANEOUS, LOWER EXTREMITY performed by Elicia Caal MD at [facility] OR ? ? Pro debridement subcutaneous tissue 20 sqcm/< Left 07/27/2015 DEBRIDEMENT SKIN AND SUBCU, LOWER EXTREMITY performed by Elicia Caal MD at [facility] OR ??? Pro dressing change under anesthesia Left 07/29/2015 DRESSING CHANGE (FOR OTHER THAN ESCALANTE) UNDER ANES., LOWER EXTREMITY performed by Elicia Caal MD at [facility] OR ??? Pro amputate thigh, secondry closur Left 07/29/2015 AMPUTATION, ABOVE-KNEE, SECONDARY CLOSURE OR SCAR REVISION performed by Elicia Caal MD at [facility] OR Social Hx: History Substance Use Topics ??? Smoking status: Never Smoker ??? Smokeless tobacco: Never Used ??? Alcohol Use: No Medications: Medications 08/17/15 1524 Medication Sig Taking? clopidogrel (PLAVIX) 75 mg [...] ROS negative Physical Exam: Vitals: Filed Vitals: 08/17/15 1458 BP: 150/63 Pulse: 69 Resp: 20 Gen: No acute distress. HEENT: Normocephalic, atraumatic. No scleral icterus. (+) glasses Neck: Supple, no JVD. Heart: Regular rate and rhythm. (+) S1/S2. No snaps, clicks, rubs, or murmurs. Lungs: Regular respiratory rate with no increased work of breathing. Clear to auscultation bilaterally. Abd: Soft, nontender, not distended. Audible bowel sounds. No bruits or pulsatile mass on exam. Extremities: Left groin wound - 75% granulation tissue, 25% fixed slough or fibrinous tissue - no malodor, purulence, or surrounding erythema. Serosanguinous drainage was present in the VAC cannister. There was tunneling at the distal end of the wound but this was <2 cm in depth and there was slight undermining<1cm at the proximal end of the wound but otherwise the wound base was filling in nicely. Left AKA incision - well approximated. All sutures removed with no evidence of dehiscence, bleeding,or drainage after removal. No fluctuance, discoloration of stump, or erythema. No demarcation of skin margins. Dry adherent eschar still present along incision line. Right foot - no tissue loss. Slightly delayed cap refill but no signs of ischemia (no dependant rubor). Vascular Exam: R L Carotid 2/2 bruit (-) 2/2 bruit (-) Radial 2/2 2/2 Femoral 2/2 Unable to assess due to wound Popliteal 0/2 DP 0/2 PT 0/2 Psych: AAOx3 Impression: s/p left AKA, s/p resection infected LLE bypass graft with left groin wound sartorius muscle flap and VAC placement, atherosclerotic PAD, recent NSTEMI & CHF admission, recent PANDA Recommendations: At this point her left AKA incision is healing well and should continue to be protected. The left groin wound continues to make steady progress with VAC therapy and her antibiotic regimen is being directed by ID. Her right leg does have a component of PAD as well but is currently asymptomatic. We can see her back for a wound recheck in 1 month so long as her condition continues to improve. Her facility should contact us with any deterioration of her condition. Wound care instructions: Left groin wound - Please continue wound VAC at 125 mmHg continuous pressure with VAC changes three times per week Left AKA stump - please apply dry dressing to stump to provide protection to area until all the eschar is completely removed from the incision. Ok to wash with soap and water gently daily and dry completely. May use MARLYN wrap for now but should not start stump bridal sales consultant until incision line free of eschar. 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
--- OUTSIDE RECORDS SUMMARY | 2022-01-25 00:55 | XMS_ITS | Encounter Summary ---
:1950 Author Organization [facility] [place] [address] Care Team Providers Name Role Phone Gordy Moon MD Primary Care Provider [phone] Reason for Visit Auth/Cert - Closed Specialty Diagnoses / Procedures Referred By Contact Refer red To Contact Diagnoses NSTEMI (non-ST elevated myocardial infarction) NSTEMI Procedures IPI Referral ID Status Reason Start Date Expiration Date Visits Requ ested Visits Authorized [id number] Closed 1 1 Encounter Details Date Type Department Care Team Description 08/11/2015 Surgery Wound/Ostomy Nurse Dereje Banuelos CARDIAC CATHETERIZATION [facility] MD Emigdio [facility] [place] [address] CARDIOLOGY DEPT [phone] [place], [place] [address] (Wo rk) Social History Tobacco [...] Carrie Hurst Patient Age: 64 y.o. Language: Sami Race: White Ethnicity: Not nor Admit date: [...] Information: Cardiology Clinic can be reached at [phone] Discharge Diagnoses (Hospital Problems) and Secondary Diagnoses [...] y.o. old female who is transferred to [facility] from [facility] for further management of NSTEMI with moderate [...] and chest pain and was transferred to [facility] and was diagnosed with acute PR and pulmonary edema. She was diuresed with [...] Course: Acute NSTEMI Patient was admitted [facility] and placed on telemetry monitoring. She [...] [facility]She is no longer in heart failure clinically and her MR is not severe. Heart Failure, LVEF is 40% per [facility] report Repeat Echocardiogram here shows LVEF of [...] was given 2 units of pRBC at [facility] and her hct is 33. She likely [...] Discharge Conditions/Prognosis: stable Discharge to: rehab in [place] Updated Allergies/ADRs: No Known Allergies Immunizations Given [...] Instructions Patient is going to rehab in [facility]. Please see other section for appointments and OPAT directions. Future Appointments and Orders Future Appointments Provider Department Dept Phone 08/17/2015 3:00 PM Radha Waller PA Vascular Surgery [phone] 08/17/2015 4:00 PM Maria Hernandez MD; Donya Awad MD Nephrology [phone] Future Orders Complete By Expires OPAT: Order / Recommendation for Post Discharge IV Antibiotic Management [MFR016 CPT(R)] As directed Process Instructions: If no progress note charted, please enter Clinical details in comments. Scheduling Instructions: Comments: Please Fax all results to: OPAT Program Infectious Disease Section [facility], [place] [address] FAX: Line care instructions per [facility] OPAT Program protocol. After hours, please contact the Infectious Disease Physician answering service telephone operator at . If this order was signed greater than 72 hours prior to [facility] discharge, please call to confirm the accuracy [...] Hoa Felipe MD Discharge References/Attachments HEART ATTACK (GREEK) PCI (PERCUTANEOUS CORONARY INTERVENTION) : PRE-OP (GREEK) documented in this encounter Discharge Instructions Discharge InstructionsLaBree mackay PA - 08/13/2015 9:50 AM EST Patient is going to rehab in [facility]. Please see other section for appointments and OPAT directions. AttachmentsThe following attachments cannot be sent through Care Everywhere. HEART ATTACK (GREEK)PCI (PERCUTANEOUS CORONARY INTERVENTION) : PRE-OP (GREEK)documented in this encounter Medications at Time of [...] Progress Note Patient Name: Carrie Hurst Service: MASONRY CONTRACTOR ADMINISTRATOR / PA Responsible Attending: No att. providers [...] for her to return to rehab in [place]. Review of Systems: Review of Systems Constitutional: [...] the vascular service 08/03/15 who presents from [facility] rehab with a NSTEMI and HF. She [...] [facility] 2. Acute systolic Heart Failure, LVEF is 40% per [facility] report Repeat Echocardiogram here shows LVEF of [...] was given 2 units of pRBC at [facility] and her hct is 33. She likely had post op blood loss. 7. Stage 2 Coccygeal decubitus ulcer: Wound care consult and supportive care. Appreciate help from wound care team. 8. Full Code Patient seen and discussed with Dr. Mock. GAIL HARRINGTON 08/16/2015 Pager [phone] Cardiology Staff Addendum I have discussed, reviewed and agree with the documented interval history, Physical findings, Assessment and Plan of care. I have independently interviewed and examined the patient myself and have no additions to the interval history, physical, assessment or plan of care. Erica Leblanc - 08/12/2015 3:31 PM EST Office of Care Management/Lock Master Patient Name: Carrie Hurst : 1950 Patient has been offered a Swing bed at [facility]. A wheel chair van is scheduled for 10:00 AM. No MD to MD report necessary Please call Nursing Report to [phone], ask for water plant maintenance mechanic. Info to accompany patient: Narcotic Prescriptions Copies of Medication Administration Records and IV sheets for past 10 days. Plan: Lock Master will be available to the patient and CRC for further assistance. Patient will be discharged to: [place] [phone] Erica Andres Lock Master Nguyen Sol, PT - 08/12/2015 3:02 PM EST PT NOTE Call received from nursing. Pt not leaving for rehab until tomorrow. Came to see pt but sitting on acommode and doing ADLs with ROLL CUTTER. Returned again. Now pt is back in bed fatigued from increased activity this afternoon. ROLL CUTTER stating that pt did transfers, commode to [...] HLD (hyperlipidemia) 03/24/2015 ??? Hospital-Claudication 03/16/2015 ??? Dazzszjv-Qdz-izhhugs ulcer of foot 03/16/2015 ??? DMII (diabetes mellitus, type 2) 03/16/2015 ??? Hypercholesterolemia 03/16/2015 ??? Hypertension 03/16/2015 ??? Hospital-PAD (peripheral artery disease) 03/16/2015 Reason for Nutrition Intervention: Diet Order [facility] Fair not too bad Food allergies: [...] here. She hopes to go back via wc van and feels this alone will challenge her balance. Pt s/p BKA 07/29/15, and now with NSTEMI treated with PCI to LCX. Will follow if pt does not actually dc. Dontrell Hernandez MD - 08/12/2015 10:50 AM EST Inpatient Cardiology Progress Note Patient Name: Carrie Hurst Service: MASONRY CONTRACTOR ADMINISTRATOR / PA Responsible Attending: Dontrell Mock MD Reason for continued hospitalization: Transfer to rehab today Active Problems: Active Hospital Problems Diagnosis ??? NSTEMI (non-ST elevated myocardial infarction) Resolved Hospital Problems Diagnosis Date Resolved No resolved problems to display. Interval History: Patient feels well today. Plan is for her to return to rehab in [place]. Review of Systems: Review of Systems Constitutional: [...] in the last 168 hours. Recent Labs 08/12/1543908/11/1520 08/10/15 2330 NA 139 138 136 K 3.7 3.9 3.4* CL 100 96* 93* CO2 27 Not Perf 27 BUN 17 22* 26* CREATININE 0.98 1.11 1.16 Recent Labs 08/10/15 2330 AST 22 ALT 37* ALKPHOS 337* BILITOT 0.5 BILIDIR 0.1 Recent Labs 08/12/1543908/11/1561908/10/15 233 CALCIUM 8.2* 7.8* 7.8* MAGNESIUM -- 0.85 0.52* Recent Labs 08/12/1543908/11/15205308/11/15619 CK 24 26 35 TROPONINT 0.83* 0.68* 0.64* 0.63* Pertinent Radiographic/Diagnostic Results: Cardiac Cath: ECHO: Assessment: Carrie Hurst is a 64 y.o. female with a recent discharge from the vascular service 08/03/15 who presents from [facility] rehab with a NSTEMI and HF. She [...] Plan is to transfer her back to [facility] rehab today 2. Heart Failure, LVEF is 40% per [facility] report Repeat Echocardiogram here Currently she appears [...] was given 2 units of pRBC at [facility] and her hct is 33. She likely had post op blood loss. 7. Stage 2 Coccygeal decubitus ulcer: Wound care consult and supportive care. Appreciate help from wound care team. 8. Full Code Patient seen and discussed with Dr. Mock. GAIL HARRINGTON 08/12/2015 Pager [phone] Cardiology Staff Addendum I have discussed, reviewed and agree with the documented interval history, Physical findings, Assessment and Plan of care. I have independently interviewed and examined the patient myself and have no additions to the interval history, physical, assessment or plan of care. Kelsi Marks RN - 08/12/2015 9:54 AM EST Patient would benefit from acute/SNF/swing/LTAC rehab at discharge. Full Disclosure Statement provided, as appropriate. ?? Met with patient/family at bedside. Provided [facility], Office of Care Management letter from the Rn Hemodialysis Charge pertaining to rehab referrals.. ?? Reviewed levels of rehab acute . ?? A list that serves the geographical area which the patient resides or the geographical area requested has been provided through [employer] search. ?? Requested patient/family provide at least three choices for referral. ?? Patient/family request return to [facility] Rehab Note routed to Lock Master who will communicate referrals to facilities via [facility] program. Sallie Bullard MD - 08/11/2015 7:03 PM EST Interventional [...] 08/11/2015 2:31 PM EST OFFICE OF CARE MANAGEMENT/Sleeping Car Porter/PROGRESS NOTE AYAH received call from Olga RUIZ ([facility] RN) that [facility] has requested patient's wound vac to be returnedto their facility. CM contacted Gladis ([facility] RN) to discuss this. Gladis indicated they need the woundvac returned as they have contract with [facility] for patient use during the hospitalization at their facility. AYAH suggested they close order with [facility] and this CM will notify [facility] that vac is in patient's room at [facility] as we have [employer] rep on site at this facility. Gladis was in agreement with this plan. AYAH called Jodee at [facility] and she states she will note the end of [facility] use of vac and notify them of vac location for knot picker cloth. AYAH communicated this to Rhiannon RUIZ on floor, she states she will relay this information to Olga RUIZ. Rosangela Sawyer RN, BSN Sleeping Car Porter OC Pager #[phone] Rosangela Patel RN - 08/11/2015 1:26 PM EST Office of Care Management (OCM) / Sleeping Car Porter(CM)/ Initial Assessment Discussed patient with Provider Team and in multidisciplinary discharge-planning rounds. Reviewed record for assessment as patient has had recent hospitalization and was unavailable (@director of cardiac cath lab) REASON for HOSPITALIZATION: Shortness of breath and chest pain two days ago, admitted at [facility] and managed for acute NSTEMI and pulmonary [...] support network. ADVANCE DIRECTIVES: Completed HEALTH /PRESCRIPTION COVERAGE:[facility] [place], no barriers to obtaining prescribed medicaltions CURRENT HOME/COMMUNITY SERVICES/EQUIPMENT: DME:Wound Vac [facility] Home Health Agency: Other: [facility] REFERRAL: not needed at this time PRIMARY CARE PHYSICIAN: GORDY MOON MD [address] / [facility] [address] POTENTIAL DISCHARGE NEEDS: TBD. PT/OT to evaluate. Potential return to Rehab vs Home with home health. Patient had home wound vac contract with [facility] prior to this hospitalization. Per hospital protocol this will be changed to hospital unit during her inpatient stay. Will need Home unit released at discharge. ANTICIPATED BARRIERS TO DISCHARGE: Medical readiness TRANSPORTATION @ D/C: Family PLAN: CM will continue to monitor progress, follow for continuity of care and assist with discharge planning while hospitalized Rosangela aSwyer RN, BSN Sleeping Car Porter OCM Pager #[phone] . Baudilio Bassett MD - 08/11/2015 7:43 AM EST Inpatient Cardiology Progress Note Patient Name: Carrie G Aris Service: MASONRY CONTRACTOR ADMINISTRATOR / PA Responsible Attending: Baudilio Bassett MD Reason for continued hospitalization: Awaiting cardiac catherization Active Problems: Active Hospital Problems Diagnosis ??? NSTEMI (non-ST elevated myocardial infarction) Resolved Hospital Problems Diagnosis Date Resolved No resolved problems to display. Interval History: Patient was very SOB on Saturday - the day she likely had PR. She feels better to day and is [...] yellow clear urine Lab Comments: Recent Labs 08/11/1561908/10/152038 WBC 9.7 10.6* HGB 11.5 12.0 HCT 34.5 35.0 PLATELET 359 369 No results for input(s): INR in the last 168 hours. Recent Labs 08/11/15 0608/10/15 2330 NA 138 136 K 3.9 3.4* CL 96* 93* CO2 Not Perf 27 BUN 22* 26* CREATININE 1.11 1.16 Recent Labs 08/10/15 2330 AST 22 ALT 37* ALKPHOS 337* BILITOT 0.5 BILIDIR 0.1 Recent Labs 08/11/1520 08/10/15 2330 CALCIUM 7.8* 7.8* MAGNESIUM 0.85 0.52* Recent Labs 08/11/15 0620 08/10/15 2330 CK 35 -- TROPONINT 0.64* 0.63* 0.50* Pertinent Radiographic/Diagnostic Results: Cardiac Cath: ECHO: Assessment: Carrie Hurst is a 64 y.o. female with a recent discharge from the vascular service 08/03/15 who presents from [facility] rehab with a NSTEMI and HF. She [...] Congestive Heart Failure, LVEF is 40% per [facility] report Repeat Echocardiogram here Currently she appears [...] was given 2 units of pRBC at [facility] and her hct is 33. She likely had post op blood loss. 7. Stage 2 Coccygeal decubitus ulcer: Wound care consult and supportive care. 8. Full Code Patient seen and discussed with Dr. Bassett. GAIL HARRINGTON 08/11/2015 Pager [phone] ATTENDING ADDENDUM I interviewed and examined Carrie [...] in this encounter H&P Notes Cody Mora 08/10/2015 9:13 PM EST Admission History & Physical August 10, 2015 Name: Carrie Hurst Gender: female : 1950 Age: 64 y.o. Date of Admit: 08/10/2015 Attending Physician Baudilio Bassett MD Chief Complaint: Shortness of breath and chest pain two days ago, admitted at [facility] and managed for acute NSTEMI and pulmonary [...] y.o. old female who is transferred to [facility] from [facility] for further managementof NSTEMI with moderate systolic dysfunction leading to pulmonary edema. Pt was admitted there on 08/08/15 from rehab center. 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 She did fine for 4 days and suddenly developed severe shortness of breath and chest pain and was transferred to [facility] and was diagnosed with acute PR and pulmonary edema. She was diuresed with [...] CONDUIT ([place] [address]) performed by Mariano Doyle MD at [facility] [place] ??? Pro bypass graft othr, fem-tibial Left 05/26/2015 @BYPASS GRAFT, FEM-ANT TIBIAL, -POST TIBIAL, -PERONEAL, -DP W\ SYNTHETIC CONDUIT performed by Mariano Doyle MD at [facility] [place] ??? Pro bypass graft vein patch/cuff, synthetic Left 05/26/2015 PLACEMENT VEIN PATCH OR CUFF AT DISTAL ANASTOMOSIS OF BYPASS GRAFT, SYNTHETIC CONDUIT , RODRIGUEZ-COLLAR, RACHELLE-PATCH, ADD-ON CODE, LOWER EXTREMITY performed by Mariano Doyle MD at [facility] [place] ??? Pro thromboendartectmy iliofemoral Left 05/26/2015 @ENDARTERECTOMY, ILIOFEMORAL W OR W/O PATCH GRAFT performed by Mariano Doyle MD at [facility] [place] ??? Pro reoperation, bypass graft Left 05/26/2015 @RE-OP FOR RE-DO LOWER EXTREMITY BYPASS GRAFT, >1 MONTH P\ ORIGINAL SURGERY, ADD-ON CODE performed by Mariano Doyle MD at [facility] [place] ??? Pro amputation low leg, circular Left 07/24/2015 @AMPUTATION, BELOW-KNEE, OPEN, GUILLOTINE performed by Elicia Caal MD at [facility] [place] ??? Pro exploration, femoral artery Left 07/24/2015 @EXPLORATION, W/WO LYSIS, FEMORAL ARTERY W\O SURGICAL REPAIR performed by Elicia Caal MD at [facility] [place] ??? Pro negative pressure wound therapy, less than or equal to 50 sqcm Left 07/24/2015 DRESSING CHANGE (VAC ASSISTED) UP TO 50SQ.CM performed by Elicia Caal MD at [facility] [place] ??? Pro rebl ves direct, low extrem Left 07/24/2015 REPAIR LOWER EXTREMITY BLOOD VESSEL, DIRECT, NO PATCH OR GRAFT performed by Elicia Caal MD at [facility] ??? Pro excision, infec graft, extremity Left 07/24/2015 EXCISION OF INFECTED GRAFT FROM LOWER EXTREMITY performed by Elicia Caal MD at [facility] [place] ??? Pro muscle-skin flap, leg Left 07/27/2015 FLAP, MYOCUTANEOUS OR FASCIOCUTANEOUS, LOWER EXTREMITY performed by Elicia Caal MD at [facility] [place] ? ? Pro debridement subcutaneous tissue 20 sqcm/< Left 07/27/2015 DEBRIDEMENT SKIN AND SUBCU, LOWER EXTREMITY performed by Elicia Caal MD at [facility] [place] ??? Left 07/27/2015 MODIFIER WOUND VAC performed by Elicia Caal MD at [facility] [place] ??? Pro dressing change under anesthesia Left 07/29/2015 DRESSING CHANGE (FOR OTHER THAN ESCALANTE) UNDER ANES., LOWER EXTREMITY performed by Elicia Caal MD at [facility] [place] ??? Pro amputate thigh, secondry closur Left 07/29/2015 AMPUTATION, ABOVE-KNEE, SECONDARY CLOSURE OR SCAR REVISION performed by Elicia Caal MD at [facility] Family History Problem Relation Age of Onset ??? Type 2 Diabetes Sister ??? Type 2 Diabetes Mother ??? Type 2 Diabetes Father ??? Coronary Artery Disease Father ??? Coronary Artery Disease Mother History Social History ??? Marital Status: Spouse Name: N/A Number of Children: N/A ??? 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 Smoking [...] vac applied and no significant discharge noted. Neuro/AUTOMATION APPLICATION ENGINEER: AAO x 3, No evident deficits Skin/Integumentary: Stage II sacral decubitus. Investigations from [facility] from earlier this morning and yesterday: Labs: Troponin:4.8 BUN/Creatinine: 30/1.29 Hgb/Hct/Plt:10.6/32.2/354 WBC: 14.13 Sodium/Potassium: 139/2.9 PT/INR: 10.9/1.1 LDL: 141 HDL: 45 CXR: ECG: NSR, old inferior infarct, poor R wave progression and possible old anterior infarction. T waveinversions in lateral leads. Cannot rule out lateral ischemia. 2D Echo: at [facility] on 08/09/15: - moderate systolic dysfunction with [...] was given 2 units of pRBC at [facility] and her hct is 33. Likely post op blood loss. 7. Stage 2 Coccygeal decubitus ulcer: - Wound care consult and supportive care. Signature: Cody Mora MD Date: August 10, 2015 Time: 9:13 PM Pager: [phone] documented in this encounter Miscellaneous Notes Plan [...] Handling Outcome: Ongoing (Interventions Implemented as Appropriate) 08/12/15 0808/12/15199908/12/152007 Musculoskeletal Interventions Activity/Level of Assistance -- with [...] Risk -- High -- Goal: Infection Control 08/12/1585008/12/151999 Coping/Psychosocial Response Interventions Counseling -- emotional support provided Safety Interventions Isolation Precautions standard precautions maintained -- Infection Prevention rest/sleep promoted;promote handwashing;nutrition promoted;hydration promoted;environmental surveillance;blood glucose management -- Goal: Discharge Needs Assessment 08/11/151810 Discharge Needs Assessment Readmission Within the Last [...] Review Outcome: Ongoing (Interventions Implemented as Appropriate) 08/12/151827 Plan of Care Review Plan of Care [...] day. PLAN MOVING FORWARD: D/C back to [facility] tomorrow at 10am, with [facility] wound vac machine INDIVIDUALIZED FALL PREVENTION: Pt is a 64 yo female that came from [facility], pt had recent Left AKA and has [...] Note Situation: Follow up to see Carrie Hurst for NPWT dressing change to left groin. [...] for the medical record. Patient's sister Dangelo green who is a retired SPIRAL RUNNER. The NPWT dressing was removed, patient did [...] tape. If patient is discharged tomorrow disconnect [facility] wound Vac and connect to [facility] Wound vac for transport. If vac unavailable then remove NPWT and apply a wet to moist dressing for transport. Pressure Ulcer Prevention:?? Sensory: ?? Inspect foot, ankle and bony prominences every shift for pressure ulcer development. Inspect tube sites daily; reposition/secure to avoid pressure. Activity: Limit time OOB to the chair to 2 hour intervals. ?? Use a COZero chair cushion beneath patient at all times [...] contact MARIA FERNANDA BLANK RN on pager [phone] or the wound care team at [phone] or pager [phone] skin and wound care concerns or questions. Electronically Signed By: MARIA FERNANDA BLANK RN Consult Note - Rosa Ruvalcaba RN - 08/12/2015 10:32 AM EST Carrie Hurst has been referred to Cardiac Rehab. After reviewing the patient's current medical status, the patient was deemed an inappropriate candidate for Cardiac Rehab services at this time. Sheis scheduled to go to rehab today at [facility]. The educational packet regarding CAD, cardiac risk [...] h/o DM, PVOD, and h/o PANDA and [facility] admission 07/13- with MRSA left femoral PFTE [...] CONDUIT ([place] [address]) performed by Mariano Doyle MD at [facility] [place] ??? Pro bypass graft othr, fem-tibial Left 05/26/2015 @BYPASS GRAFT, FEM-ANT TIBIAL, -POST TIBIAL, -PERONEAL, -DP W\ SYNTHETIC CONDUIT performed by Mariano Doyle MD at [facility] [place] ??? Pro bypass graft vein patch/cuff, synthetic Left 05/26/2015 PLACEMENT VEIN PATCH OR CUFF AT DISTAL ANASTOMOSIS OF BYPASS GRAFT, SYNTHETIC CONDUIT , RODRIGUEZ-COLLAR, RACHELLE-PATCH, ADD-ON CODE, LOWER EXTREMITY performed by Mariano Doyle MD at [facility] [place] ??? Pro thromboendartectmy iliofemoral Left 05/26/2015 @ENDARTERECTOMY, ILIOFEMORAL W OR W/O PATCH GRAFT performed by Mariano Doyle MD at [facility] [place] ??? Pro reoperation, bypass graft Left 05/26/2015 @RE-OP FOR RE-DO LOWER EXTREMITY BYPASS GRAFT, >1 MONTH P\ ORIGINAL SURGERY, ADD-ON CODE performed by Mariano Doyle MD at [facility] [place] ??? Pro amputation low leg, circular Left 07/24/2015 @AMPUTATION, BELOW-KNEE, OPEN, GUILLOTINE performed by Elicia Caal MD at [facility] [place] ??? Pro exploration, femoral artery Left 07/24/2015 @EXPLORATION, W/WO LYSIS, FEMORAL ARTERY W\O SURGICAL REPAIR performed by Elicia Caal MD at [facility] [place] ??? Pro negative pressure wound therapy, less than or equal to 50 sqcm Left 07/24/2015 DRESSING CHANGE (VAC ASSISTED) UP TO 50SQ.CM performed by Elicia Caal MD at [facility] [place] ??? Pro rebl ves direct, low extrem Left 07/24/2015 REPAIR LOWER EXTREMITY BLOOD VESSEL, DIRECT, NO PATCH OR GRAFT performed by Elicia Caal MD at [facility] ??? Pro excision, infec graft, extremity Left 07/24/2015 EXCISION OF INFECTED GRAFT FROM LOWER EXTREMITY performed by Elicia Caal MD at [facility] [place] ??? Pro muscle-skin flap, leg Left 07/27/2015 FLAP, MYOCUTANEOUS OR FASCIOCUTANEOUS, LOWER EXTREMITY performed by Elicia Caal MD at [facility] ? ? Pro debridement subcutaneous tissue 20 sqcm/< Left 07/27/2015 DEBRIDEMENT SKIN AND SUBCU, LOWER EXTREMITY performed by Elicia Caal MD at [facility] ??? Left 07/27/2015 MODIFIER WOUND VAC performed by Elicia Caal MD at [facility] [place] ??? Pro dressing change under anesthesia Left 07/29/2015 DRESSING CHANGE (FOR OTHER THAN ESCALANTE) UNDER ANES., LOWER EXTREMITY performed by Elicia Caal MD at [facility] MAIN OR ??? Pro amputate thigh, secondry closur Left 07/29/2015 AMPUTATION, ABOVE-KNEE, SECONDARY CLOSURE OR SCAR REVISION performed by Elicia Caal MD at [facility] OR ROS: Some phantom leg pain but [...] needed x 45' M.M. MD Matteo, pager [phone] Plan of Care - Olga Begum RN [...] wound vac machine switched over to a [facility] machine, PICC drsg changed, oliva removed at [...] Implemented as Appropriate) 08/11/15 0325 08/11/15 0904 Coping/Psychosocial Response Interventions Counseling emotional support [...] Return visit it see Carrie Hurst to ion exchange operator her NPWT KCI freedom pump to the [facility] and to assess her skin for pressure ulcers. Per report, she has a pressure ulcer over her sacrum that was present on admission. Background: eD-H notes reviewed for history, admitting diagnosis and active problem list. She had just returned from the director of cardiac cath lab. Wound Assessment and Care Provided: The NPWT [...] Incision 07/24/15 Left lower leg (Active) Incision [facility] 08/11/2015 4:00 PM Appearance pink;scabbed;no drainage;no redness;no swelling;no tenderness;no warmth;sutures intact 08/11/2015 9:04 AM Drainage Amount none 08/10/2015 8:30 PM Dressing open to air 08/11/2015 9:04 AM Wound 07/27/15 Left groin (Active) Wound [facility] 08/11/2015 9:04 AM Dressing Appearance intact 08/11/2015 [...] Diet/Nutrition Prescription: NPO Fluids: adequate Current bed: [facility]. She can turn from side to side [...] chair to 2 hour intervals. Use a COZero chair cushion beneath patient at all times [...] by adjusting length of foot of bed. [facility] AIR bed ??? Use a single quilted [...] Please contact AKIL COBB RN on pager [phone] or the wound care team at [phone] or pager [phone] with skin and wound care concerns or questions. Consult Note - Akil Cobb RN - 08/11/2015 1:01 PM EST Certified Wound Care Nurse Note Situation: Asked to see Carrie Mcguire Aris by Kylee Abernathy RN for a stage II pressure ulcer [...] returned she was being transferred to the director of cardiac cath lab. A inpatient NPWT machine was ordered, as [...] Kimber COBB RN Plan of Care - Kylee Abernathy RN - 08/11/2015 3:28 AM EST Problem: General Plan of Care Goal: Plan of Care Review Outcome: Ongoing (Interventions Implemented as Appropriate) 08/11/15324 Plan of Care Review Plan of Care Outcome Status ongoing (interventions implemented as appropriate) Progress no change Coping/Psychosocial Response Interventions Plan of Care Reviewed with patient Goal: Fall Prevention-Safe Patient Handling Outcome: Ongoing (Interventions Implemented as Appropriate) 08/10/15202908/11/158 08/11/15324 Musculoskeletal Interventions Activity/Level of Assistance bedrest with [...] turns. Pt able to stand pivot to BSC w/ walker andone assist, tolerated well. Pt fatigued, I just want to sleep. 0420) Pt c/o heartburn, 2/10, slightly nauseated. MD notified, EKG performed, prn zofran 4mg iv given with good effect. No additional orders at this time, will closely monitor. PLAN MOVING FORWARD: Monitor labs, wound consult for stage II and vac management, PICC dsg change today-spoke with [facility] IV team, maintain bleeding precautions, activity as [...] Procedure Name Priority Date/Time Associated Comments Diagnosis SENIOR TECHNICAL SPECIALIST SCAN 08/14/2015 12:00 AM EST POCT GLUCOSE [...] Routine 08/12/2015 4:40 Results f or this ([facility]) AM EST procedure are i n the [...] STAT 08/11/2015 8:54 Results f or this ([facility]) PM EST procedure are i n the [...] Routine 08/11/2015 6:20 Results f or this ([facility]) AM EST procedure are i n the [...] documented in this encounter Results SCAN DOC: SENIOR TECHNICAL SPECIALIST (08/14/2015 12:00 AM EST) Narrative This result has an attachment that is no t available. Scanning Provider MEDIA MGR SCAN EXT ORDR/RSLT POCT Glucose (08/13/2015 7:41 AM EST) athologist Signature POC Glucose 193 65 - 199 CERNER mg/dL [facility] Comment: Supplemental ranges: <140 mg/dL before meals <180 mg/dL all other times of the day Specimen Anatomical Collection Method Collection Time Receive d Time (Source) Location / / Volume Laterality Blood specimen 08/13/2015 7:41 AM 016 7:41 (specimen) EST AM EST Dontrell Mock MD POINT OF CARE TEST ORDERABLE S Performing Organization Address City/State/[place] [address] CERNER [facility] (ABNORMAL) Differential, Automated (08/13/2015 3:33 AM EST) Patholo gist Method Time Signature Neutrophils % 65.9 [...] Organization Address City/State/[place] [address] CERNER MILLENNIUM (ABNORMAL) Hemogram (08/13/2015 3:33 AM EST) P athologist Signature WBC 9.0 4.0 - 10.0 CERNER x10(3)/mcL MILLENNIUM RBC 4.26 3.93 - CERNER 5.22 MILLENNIUM x10(6)/mcL Hemoglobin 12.5 11.2 - CERNER 15.7 gm/dL MILLENNIUM Hematocrit 38.2 34.0 - CERNER 45.0 % MILLENNIUM MCV 89.7 79.0 - CERNER 94.0 fL ENNIUM MCH 29.3 26.6 - CERNER 32.2 pg ENNIUM MCHC 32.7 32.0 - CERNER 36.5 gm/dL [facility] Platelets 395 (H) 145 - 370 CERNER x10(3)/mcL ENNIUM RDWSD 51.5 (H) 35.0 - CERNER 46.0 fL [facility] RDWCV 15.9 (H) 10.9 - CERNER 14.4 % ENNIUM MPV 10.8 9.0 - 12.0 CERNER fL [facility] Specimen Anatomical Collection Method Collection Time Receive d Time (Source) Location / / Volume Laterality Blood specimen 08/13/2015 3:33 AM 016 7:46 (specimen) EST AM EST Resulting Agency Comment Spec In Lab Cody Johnson MD HEMATOLOGY ORDERABLES Performing Organization Address City/[facility]/ZIP Code Phon e Number [address] CERNER MILLENNIUM POCT Glucose (08/13/2015 3:30 AM EST) athologist Signature POC Glucose 128 65 - 199 CERNER mg/dL [facility] Comment: Supplemental ranges: <140 mg/dL before meals <180 mg/dL all other times of the day Specimen Anatomical Collection Method Collection Time Receive d Time (Source) Location / / Volume Laterality Blood specimen 08/13/2015 3:30 AM 016 3:30 (specimen) EST AM EST Dontrell Mock MD POINT OF CARE TEST ORDERABLE S Performing Organization Address City/State/ZIP Code Phon e Number [address] CERNER MILLENNIUM POCT Glucose (08/13/2015 12:43 AM EST) athologist Signature POC Glucose 131 65 - 199 CERNER mg/dL ENNIUM Comment: Supplemental ranges: <140 mg/dL before meals <180 mg/dL all other times of the day Specimen Anatomical Collection Method Collection Time Receive d Time (Source) Location / / Volume Laterality Blood specimen 08/13/2015 12:43 6 (specimen) AM EST 12:43 AM EST Dontrell Mock MD POINT OF CARE TEST ORDERABLE S Performing Organization Address City/State/[place] [address] CERNER MILLENNIUM POCT Glucose (08/12/2015 10:46 PM EST) athologist Signature POC Glucose 153 65 - 199 CERNER mg/dL MILL[facility]NI[facility] Comment: [...] Organization Address City/State/[place] [address] CERNER MILLENNIUM (ABNORMAL) POCT Glucose (08/12/2015 8:41 PM EST) athologist Signature POC Glucose 279 (H) 65 - 199 CERNER mg/dL MILLENNIUM [...] Organization Address City/State/[place] [address] CERNER MILLENNIUM POCT Glucose (08/12/2015 4:28 PM EST) athologist Signature POC Glucose 168 65 - 199 CERNER mg/dL [facility] Comment: [...] Organization Address City/State/ZIP Code Phon e Number [address] CERNER [facility] POCT Glucose (08/12/2015 12:28 PM EST) athologist Signature POC Glucose 197 65 - 199 CERNER mg/dL [facility] Comment: Supplemental ranges: <140 mg/dL before meals <180 mg/dL all other times of the day Specimen Anatomical Collection Method Collection Time Receive d Time (Source) Location / / Volume Laterality Blood specimen 08/12/2015 12:28 6 (specimen) PM EST 12:28 PM EST Dontrell Mock MD POINT OF CARE TEST ORDERABLE S Performing Organization Address [facility]/ZIP Code Phon e Number [address] [facility] Aimetis EKG 12 Lead (08/12/2015 7:40 AM EST) [facility] gist Method Time Signature Ventricular rate 83 BPM MUSE SYSTEM Atrial Rate 83 BPM MUSE SYSTEM P-R Interval 152 ms MUSE SYSTEM QRS Duration 88 ms MUSE SYSTEM Q-T Interval 384 ms MUSE SYSTEM QTC Calculated 451 ms MUSE SYSTEM (Bezet) Calculated P Alderson 33 degrees MUSE SYSTEM Calculated R [place] 37 degrees MUSE SYSTEM Calculated T [place] -43 degrees MUSE SYSTEM INTERPRETATION Normal sinus [...] Bassett MD ECG ORDERABLES Performing Organization Address City/[facility]/ZIP Code Phon e Number MUSE SYSTEM POCT [...] Organization Address City/State/[place] [address] CERNER MILLENNIUM Differential, Automated [...] Johnson MD HEMATOLOGY ORDERABLES Performing Organization Address City/[facility]/[place] [address] CERNER MILLENNIUM (ABNORMAL) Hemogram [...] Johnson MD HEMATOLOGY ORDERABLES Performing Organization Address City/[facility]/ZIP Code Phon e Number [place] [address] CERNER MILLENNIUM (ABNORMAL) BMP w/fasting Glucose (08/12/2015 4:40 AM EST) P athologist Signature Glucose 160 (H) 65 - [...] of Diabetes Mellitus, Position Statement from the [place] [employer]. ??Diabete s Care, Volume 33, Supplement 1, Jul 2009 BUN 17 8 - 18 mg/dL CERNER MILLENNIUM Creatinine 0.98 0.70 - 1.20 mg/dL CERNER MILL ENNI[facility] Comment: Please note that the pediatric reference intervals supplied above were not validated at [facility]. Results from pediatri c patients should be [...] the following links into your internet browser. [email or web address] Specimen Anatomical Collection Method Collection Time Receive d Time (Source) Location / / Volume Laterality Blood specimen 08/12/2015 4:40 AM 016 4:44 (specimen) EST AM EST Resulting Agency Comment Spec In Lab Baudilio Bassett MD CHEMISTRY ORDERABLES Performing Organization Address [facility] Phon e Number [place] [address] CERShanghai Kid[facility] TechnologyIUM (ABNORMAL) Cardiac Enzymes (08/12/2015 4:40 AM EST) athologist Signature Troponin-T 0.83 (H) <=0.03 CERNER ng/mL [facility] Comment: 0.03 ng/mL: Represents the 99th percenti [...] consensus document of the Joint Society of Cardiology/[place] College o f Cardiology Committee for the redefinition of myocardial infarction. ? ?Journal of the [place] College of Cardiology 2000; 36: 959-969] CK, Total 24 0 - 160 unit/L [facility] Specimen Anatomical Collection Method Collection Time Receive d Time (Source) Location / / Volume Laterality Blood specimen 08/12/2015 4:40 AM 016 4:44 (specimen) EST AM EST Resulting Agency Comment Spec In Lab Baudilio Bassett MD CHEMISTRY ORDERABLES Performing Organization Address [facility] Code Phon e Number [address] [employer]ze POCT Glucose (08/12/2015 4:34 AM EST) athologist Signature POC Glucose 149 65 - 199 CERNER mg/dL [facility] Comment: Supplemental ranges: <140 mg/dL before meals <180 mg/dL all other times of the day Specimen Anatomical Collection Method Collection Time Receive d Time (Source) Location / / Volume Laterality Blood specimen 08/12/2015 4:34 AM 016 4:34 (specimen) EST AM EST Baudilio Bassett MD POINT OF CARE TEST ORDERABLE S Performing Organization Address City/State/ZIP Code Phon e Number [address] CERNER MILLENNIUM POCT Glucose (08/12/2015 1:09 AM EST) athologist Signature POC Glucose 141 65 - 199 CERNER mg/dL [facility] Comment: Supplemental ranges: <140 mg/dL before meals <180 mg/dL all other times of the day Specimen Anatomical Collection Method Collection Time Receive d Time (Source) Location / / Volume Laterality Blood specimen 08/12/2015 1:09 AM 016 1:09 (specimen) EST AM EST Baudilio Bassett MD POINT OF CARE TEST ORDERABLE S Performing Organization Address City/[facility]/ZIP Code Phon e Number [address] CERNER MILLENNIUM POCT Glucose (08/11/2015 10:43 PM EST) athologist Signature POC Glucose 159 65 - 199 CERNER mg/dL [facility] Comment: Supplemental ranges: <140 mg/dL before meals <180 mg/dL all other times of the day Specimen Anatomical Collection Method Collection Time Receive d Time (Source) Location / / Volume Laterality Blood specimen 08/11/2015 10:43 6 (specimen) PM EST 10:43 PM EST Baudilio Bassett MD POINT OF CARE TEST ORDERABLE S Performing Organization Address City/[facility]/ZIP Code Phon e Number [address] CERNER MILLENNIUM (ABNORMAL) Cardiac Enzymes (08/11/2015 8:54 PM EST) athologist Signature Troponin-T 0.68 (H) <=0.03 CERNER ng/mL [facility] Comment: 0.03 ng/mL: Represents the 99th [...] consensus document of the Joint Society of Cardiology/[place] College o f Cardiology Committee for the redefinition of myocardial infarction. ? ?Journal of the [place] College of Cardiology 2000; 36: 959-969] CK, Total 26 0 - 160 unit/L BANNERNER [facility] UM Specimen Anatomical Collection Method Collection Time Receive d Time (Source) Location / / Volume Laterality Blood specimen 08/11/2015 8:54 PM 016 9:00 (specimen) EST PM EST Resulting Agency Comment Spec In Lab Baudilio Bassett MD CHEMISTRY ORDERABLES Performing Organization Address City/State/ZIP Code Phon e Number [address] [facility] (ABNORMAL) POCT Glucose (08/11/2015 8:18 PM EST) athologist Signature POC Glucose 267 (H) 65 - 199 CERNER mg/dL [facility] Comment: Supplemental ranges: <140 mg/dL before meals <180 mg/dL all other times of the day Specimen Anatomical Collection Method Collection Time Receive d Time (Source) Location / / Volume Laterality Blood specimen 08/11/2015 8:18 PM 016 8:18 (specimen) EST PM EST Baudilio Bassett MD POINT OF CARE TEST ORDERABLE S Performing Organization Address City/[facility]/[place] [address] [facility] POCT Glucose (08/11/2015 4:14 PM EST) P athologist Signature POC Glucose 152 65 - 199 [facility] mg/dL [facility] Comment: Supplemental ranges: <140 mg/dL before meals <180 mg/dL all other times of the day Specimen Anatomical Collection Method Collection Time Receive d Time (Source) Location / / Volume Laterality Blood specimen 08/11/2015 4:14 PM 016 4:14 (specimen) EST PM EST Baudilio Bassett MD POINT OF CARE TEST ORDERABLE S Performing Organization Address City/State/ZIP Code Phon e Number [address] [facility] EKG 12 Lead (08/11/2015 2:31 PM EST) Component Value Ref Range Test Analysis Performed Pathologis t Method Time At Signature Ventricular rate 77 BPM MUSE SYSTEM Atrial Rate 77 BPM MUSE SYSTEM P-R Interval 138 ms MUSE SYSTEM QRS Duration 84 ms MUSE SYSTEM Q-T Interval 400 ms MUSE SYSTEM QTC Calculated 452 ms MUSE SYSTEM (Bezet) Calculated P Alderson 65 degrees MUSE SYSTEM Calculated R [place] 36 degrees MUSE SYSTEM Calculated T [place] -105 degrees MUSE SYSTEM INTERPRETATION Normal sinus rhythm MUSE SYSTEM Inferior infarct (cited on or before 10-AUG-2015) Poor R wave progression , ??Cannot rule out Anterior infarct Nonspecific T wave abnormality Abnormal ECG When compared with ECG of 11-AUG-2015 04:28, No significant change was found Confirmed by MD GONZALEZ, HERVE ([id number]) on 08/11/2015 3:50:56 PM Specimen Anatomical [...] SYSTEM - 08/12/2015 10:[address] ?[facility] ? Cardiac Cathete rization/Intervention Report ? Patient Name: Aris, Carrie G. ? Procedure Date: 08/11/2015 ? A #: [id number] ? Primary Physician: Coyleabelardo, Shannan J ? Case #: [id number] ? File Name: [id number] ? Catheterization Order Number: [id number] ? [facility] ? Final Report [place], [place] ? Patient Name: ? Carrie Mcguire. No yes ?ID#: ?[id number] ? : ?1950 ? Procedure Date: ? [...] presented with: non -STEMI (w/i 7 days). [place] ?Cardiovascular Society angina c lass was IV. [...] 6 Fr. EBU 3.5 ? guide. ??The jacey doss was predilated with a 2.00mm EUPHORA 12 [...] ?Radial access: ?Access was obtained in the [facility] t radial artery using micropuncture ?technique after [...] Bassett, and appreciated his ?presence in the director of cardiac cath lab prior to PCI to assist with decision making. ?The attending physician was margarito woodruff for the entire procedure. ?Dr. Shannan Thornton M.D. perf ormed the coronary angiography, left ?heart catheterization, stent inser tion-coronary, vascular closure device ?and angioplasty-coronary. ? Shannan J Coylewright, ? M.D. ? Electronically Signed by: Shannan J Coylew right, M.D. ? Report Finalized: 08/12/2015 ??10:19 ? Procedure Note Shannan Thornton MD - 08/12/2015For matting of this note might be different from the original. [facility] Cardiac Catheterization/Intervention Re port Patient Name: Carrie Hurst Procedure Date: 08/11/2015 A #: [id number] Primary Physician: Shannan Thornton Case #: [id number] File Name: [id number] Catheterization Order Number: [id number] [facility] Final Report [place], [place] Patient Name: Carrie Hurst ID#: [id number] : 1950 Procedure Date: August 11, 2015 [...] presented with: non-STEMI ( w/i 7 days). [place] Cardiovascular Society angina class was IV. This [...] Bassett, and appreciated his presence in the director of cardiac cath lab prior to PCI t o assist with [...] SYSTEM POCT Glucose (08/11/2015 12:53 PM EST) athologist [facility] POC Glucose 141 65 - 199 CERNER mg/dL [facility] Comment: Supplemental ranges: <140 mg/dL before meals <180 mg/dL all other times of the day Specimen Anatomical Collection Method Collection Time Receive d Time (Source) Location / / Volume Laterality Blood specimen 08/11/2015 12:53 201 6 (specimen) PM EST 12:53 PM EST Baudilio Bassett MD POINT OF CARE TEST ORDERABLE S Performing Organization Address City/State/ZIP Code Phon e Number [place] [id number] CERNER [facility] ECHOCARDIOGRAM COMPLETE W CONTRAST (08/11/2015 12:02 PM EST) athologist Signature EF 30 HEARTLAB SYSTEM Specimen (Source) Anatomical Location Collection Method / Collectio n Time Received Time / Laterality Volume 08/11/2015 Narrative HEART[facility] SYSTEM - 08/11/2015 1:28 PM EST Procedure: ?Transthoracic Echocardiogram Patient: ?ARIS Mcguire ?(Age): 1950(64y) Med Rec#: ? [id number] ?Sex: ?F ? Site Loc: ? [facility] ?Ht / Wt: ??152(cm)/47(kg) Pt. Loc: ?[facility] ? BSA: ?1.41 Study Date: ?? 08/11/2015 ?Pt. Type: Inpatient Tape: ? Referring: Baudilio Bassett Referring: ROSY FERGUSON Reading: Dontrell Mock ([id number]) Deck Worker: Rajinder Laws MS, [facility] Deck Worker 2: Omkar Parmar MD Interpreting Fellow: Beka Garcia ([id number] ) Diagnosis: *ICD-10-PCS Non-ST elevation (NSTEMI) m yocardial infarction (I21.4) CPT Codes: *Echo Full (49293) *Spectral Doppler (26796) *Color Doppler (57113) BP: ? 138/80 SUMMARY: 1. Left ventricular [...] E-wave Vmax ?1.3 ?m/sec ? MV deceleration [id number] ?msec ? MV A-wave Vmax ?0.6 ?m/sec [...] ? Mid-Inferior ?Akinetic ? Mid-Inferoseptal ?Hypokinetic ? [place]-Septal ? Akinetic ? [place]-Anterior ? Akinetic ? [place]-Lateral ?Akinetic ? [place]-Inferior ? Akinetic ? [place]-Tip ?Akinetic ? This report has been electronically sign ed by: _ Dontrell Mock M.D. ? 08/11/2015 13:27:44 Images reviewed and interpretation katia rabago [facility] Cardiac Ultrasound Laboratory Procedure Note Dontrell Mock MD - 08/11/2015Format ting of this note might be different from the original. Procedure: Transthoracic Echocardiogram Patient: ARIS Mcguire (Age): [birth year](64y) Med Rec#: [id number] Sex: F Site Loc: [facility] Ht / Wt: 152(cm)/47(kg) Pt. Loc: [facility] BSA: 1.41 Study Date: 08/11/2015 Pt. Type: Inpatie nt Tape: Referring: Baudilio Bassett Referring: ROSY FERGUSON Reading: Dontrell Mock ([id number]) Deck Worker: Rajinder Laws MS, [facility] Deck Worker 2: Omkar Parmar MD Interpreting Fellow: Beka Garcia ([id number] ) Diagnosis: *ICD-10-PCS Non-ST elevation (NSTEMI) m yocardial infarction (I21.4) CPT Codes: *Echo Full (15072) *Spectral Doppler (78007) *Color Doppler (57813) BP: 138/80 SUMMARY: 1. Left ventricular chamber [...] MV E-wave Vmax 1.3 m/sec MV deceleration [id number] msec MV A-wave Vmax 0.6 m/sec MV [...] Hypokinetic Mid-Posterolateral Hypokinetic Mid-Inferior Akinetic Mid-Inferoseptal Hypokinetic [place]-Septal Akinetic [place]-Anterior Akinetic [place]-Lateral Akinetic [place]-Inferior Akinetic [place]-Tip Akinetic This report has been electronically sign ed by: _ Dontrell Mock M.D. 08/11/2015 13:27: 44 Images reviewed and interpretation verif ieana [facility] Cardiac Ultrasound Laboratory Baudilio Bassett MD ECHO ORDERABLES Performing Organization Address City/[facility] Phon e Number [facility] SYSTEM POCT Glucose (08/11/2015 11:49 AM EST) athologist Signature POC Glucose 162 65 - 199 CERNER mg/dL [facility] Comment: Supplemental ranges: <140 mg/dL before meals <180 mg/dL all other times of the day Specimen Anatomical Collection Method Collection Time Receive d Time (Source) Location / / Volume Laterality Blood specimen 08/11/2015 11:49 6 (specimen) AM EST 11:49 AM EST Baudilio Bassett MD POINT OF CARE TEST ORDERABLE S Performing Organization Address [facility] Phon e Number [address] CERNER MILLENNIUM POCT Glucose (08/11/2015 8:36 AM EST) athologist Signature POC Glucose 184 65 - 199 CERNER mg/dL [facility] Comment: Supplemental ranges: <140 mg/dL before meals <180 mg/dL all other times of the day Specimen Anatomical Collection Method Collection Time Receive d Time (Source) Location / / Volume Laterality Blood specimen 08/11/2015 8:36 AM 016 8:36 (specimen) EST AM EST Baudilio Bassett MD POINT OF CARE TEST ORDERABLE S Performing Organization Address City/[facility]/ZIP [facility] Phon e Number [address] CERNER MILLENNIUM (ABNORMAL) Cardiac Enzymes (08/11/2015 6:20 AM EST) P athologist Signature Troponin-T 0.64 (H) <=0.03 CERNER ng/mL [facility] Comment: 0.03 [...] consensus document of the Joint Society of Cardiology/[place] College o f Cardiology Committee for the redefinition of myocardial infarction. ? ?Journal of the [place] College of Cardiology 2000; 36: 959-969] CK, Total 35 0 - 160 unit/L CERNER MILLENNI UM Specimen Anatomical Collection Method Collection Time Receive d Time (Source) Location / / Volume Laterality Blood specimen Venous Draw / 08/11/2015 6:20 AM 2015 6:44 (specimen) Unknown EST AM EST Resulting Agency Comment Spec In Lab Cody Johnson MD CHEMISTRY ORDERABLES Performing Organization Address City/[facility]/ZIP [place] [address] CERNER CAPOENNIUM Magnesium (08/11/2015 6:20 AM EST) athologist Signature Magnesium 0.85 0.69 - 1.07 CERNER mmol/L [facility] Specimen Anatomical Collection Method Collection Time Receive d Time (Source) Location / / Volume Laterality Blood specimen Venous Draw / 08/11/2015 6:20 AM 2015 6:44 (specimen) Unknown EST AM EST Resulting Agency Comment Spec In Lab Cody Johnson MD CHEMISTRY ORDERABLES Performing Organization Address City/[facility]/ZIP [place] [address] CERNER MILLENNIUM (ABNORMAL) Basic Metabolic Panel (non-fasting) (08/11/2015 6:20 AM EST) athologist Signature Glucose Lvl 187 65 - 199 CERNER mg/dL MILLENNIUM Comment: Diabetes: >=200 mg/dL plus symp toms BUN 22 (H) 8 - 18 mg/dL CERNER MILLENNIUM Creatinine 1.11 0.70 - 1.20 mg/dL CERNER MILL ENNIUM Comment: Please note that the pediatric reference intervals supplied above were not validated at [facility]. Results from pediatri c patients should be [...] the following links into your internet browser. [email or web address] Specimen Anatomical Collection Method Collection Time Receive d Time (Source) Location / / Volume Laterality Blood specimen Venous Draw / 08/11/2015 6:20 AM 2015 6:44 (specimen) Unknown EST AM EST Resulting Agency Comment Spec In Lab Cody Johnson MD CHEMISTRY ORDERABLES Performing Organization Address City/State/ZIP Code Phon e Number [address] CERNER MILLENNIUM (ABNORMAL) APTT (08/11/2015 6:20 AM EST) P athologist Signature PTT 51 (H) 25 - 35 sec CERNER MILLENNIUM Comment: Recommended therapeutic PTT range for fu ll dose unfractionated heparin is 80-114 seconds. Specimen Anatomical Collection Method Collection Time Receive d Time (Source) Location / / Volume Laterality Blood specimen 08/11/2015 6:20 AM 016 6:43 (specimen) EST AM EST Resulting Agency Comment Spec In Lab Cody Johnson MD HEMATOLOGY ORDERABLES Performing Organization Address City/[facility]/ZIP Code Phon e Number [address] CERNER MILLENNIUM (ABNORMAL) Differential, Automated [...] Organization Address City/State/ZIP Code Phon e Number [place] [phone] CERNER MILLENNIUM (ABNORMAL) Hemogram [...] Johnson MD HEMATOLOGY ORDERABLES Performing Organization Address City/[facility]/[place] [address] [facility] (ABNORMAL) Troponin T (08/11/2015 6:20 AM EST) athologist Signature Troponin-T 0.63 (H) <=0.03 CERNER ng/mL [facility] Comment: 0.03 ng/mL: Represents the 99th percenti [...] consensus document of the Joint Society of Cardiology/[place] [employer] Committee for the redefinition of myocardial infarction. ? ?Journal of the [place] [employer] 2000; 36: 959-969] Specimen Anatomical Collection Method Collection Time Receive d Time (Source) Location / / Volume Laterality Blood specimen 08/11/2015 6:20 AM 016 6:42 (specimen) EST AM EST Resulting Agency Comment Spec In Lab Cody Johnson MD CHEMISTRY ORDERABLES Performing Organization Address City/[facility]/ZIP Code Phon e Number [place] [address] [facility] (ABNORMAL) POCT Glucose (08/11/2015 4:35 AM EST) athologist Signature POC Glucose 211 (H) 65 - 199 CERNER mg/dL [facility] Comment: Supplemental ranges: <140 mg/dL before meals <180 mg/dL all other times of the day Specimen Anatomical Collection Method Collection Time Receive d Time (Source) Location / / Volume Laterality Blood specimen 08/11/2015 4:35 AM 016 4:35 (specimen) EST AM EST Baudilio Bassett MD POINT OF CARE TEST ORDERABLE S Performing Organization Address City/State/ZIP Code Phon e Number [address] [place] 12 Lead (08/11/2015 4:28 AM EST) Component Value Ref Range Test Analysis Performed Pathologis t Method Time At Signature Ventricular rate 97 BPM MUSE SYSTEM Atrial Rate 97 BPM MUSE SYSTEM P-R Interval 132 ms MUSE SYSTEM QRS Duration 80 ms MUSE SYSTEM Q-T Interval 348 ms MUSE SYSTEM QTC Calculated 441 ms MUSE SYSTEM (Bezet) Calculated P Alderson 64 degrees MUSE SYSTEM Calculated R Alderson 37 degrees MUSE SYSTEM Calculated T Alderson 53 degrees MUSE SYSTEM INTERPRETATION Normal sinus [...] Johnson MD ECG ORDERABLES Performing Organization Address City/[facility]/ZIP Code Phon e Number MUSE SYSTEM APTT (08/11/2015 2:00 AM EST) P athologist Signature PTT 29 25 - 35 sec [facility] Comment: Recommended therapeutic PTT range for fu ll dose unfractionated heparin is 80-114 seconds. Specimen Anatomical Collection Method Collection Time Receive d Time (Source) Location / / Volume Laterality Blood specimen 08/11/2015 2:00 AM 016 2:03 (specimen) EST AM EST Resulting Agency Comment Spec In Lab Cody Johnson MD HEMATOLOGY ORDERABLES Performing Organization Address City/State/[place] [address] [employer] (ABNORMAL) Troponin T (08/10/2015 11:30 PM EST) P athologist Signature Troponin-T 0.50 (H) <=0.03 CERNER ng/mL [facility] Comment: 0.03 ng/mL: Represents the 99th [...] consensus document of the Joint Society of Cardiology/[place] [employer] o f [employer] Committee for the redefinition of myocardial infarction. ? ?Journal of the [place] College [employer]iology 2000; 36: 959-969] Specimen Anatomical Collection Method Collection Time Receive d Time (Source) Location / / Volume Laterality Blood specimen Venous Draw / 08/10/2015 11:30 08/10/19 16 (specimen) Unknown PM EST 11:37 PM EST Resulting Agency Comment Spec In Lab Cody Johnson MD CHEMISTRY ORDERABLES Performing Organization Address City/State/ZIP Code Phon e Number [address] [facility] Magnesium (08/10/2015 11:30 PM EST) athologist Signature Magnesium 0.52 (L) 0.69 - 1.07 CERNER mmol/L [facility] Specimen Anatomical Collection Method Collection Time Receive d Time (Source) Location / / Volume Laterality Blood specimen Venous Draw / 08/10/2015 11:30 08/10/19 16 (specimen) Unknown PM EST 11:37 PM EST Resulting Agency Comment Spec In Lab Cody Johnson MD CHEMISTRY ORDERABLES Performing Organization Address City/[facility]/ZIP [facility] [place] [address] [facility] (ABNORMAL) Comprehensive metabolic panel (non-fasting) (08/10/2015 11:30 PM EST) P athologist Signature Glucose Lvl 217 (H) 65 - 199 CERNER mg/dL MILLENNIUM Comment: Diabetes: >=200 mg/dL plus symp toms BUN 26 (H) 8 - 18 mg/dL CERNER MILLENNIUM Creatinine 1.16 0.70 - 1.20 mg/dL CERNER MILL ENNIUM Comment: Please note that the pediatric reference intervals supplied above were not validated at [facility]. Results from pediatri c patients should be [...] the following links into your internet browser. [email or web address] Specimen Anatomical Collection Method Collection Time Receive d Time (Source) Location / / Volume Laterality Blood specimen 08/10/2015 11:30 6 (specimen) PM EST 11:32 PM EST Resulting Agency Comment Spec In Lab Cody Johnson MD CHEMISTRY ORDERABLES Performing Organization Address City/[facility]/ZIP Code Phon e Number [address] CERNER MILLENNIUM (ABNORMAL) POCT Glucose (08/10/2015 11:16 PM EST) athologist Signature POC Glucose 206 (H) 65 - 199 CERNER mg/dL [facility] Comment: Supplemental ranges: <140 mg/dL before meals <180 mg/dL all other times of the day Specimen Anatomical Collection Method Collection Time Receive d Time (Source) Location / / Volume Laterality Blood specimen 08/10/2015 11:16 6 (specimen) PM EST 11:16 PM EST Baudilio Bassett MD POINT OF CARE TEST ORDERABLE S Performing Organization Address City/[facility]/ZIP [facility] Phon e Number [address] CERShanghai Kidstone Network TechnologyIUM XR Chest Pa or AP- 1 View [...] 427 ms MUSE SYSTEM (Bezet) Calculated P Alderson 23 degrees MUSE SYSTEM Calculated R Alderson 23 degrees MUSE SYSTEM Calculated T Alderson -97 degrees MUSE SYSTEM INTERPRETATION Normal sinus [...] (ABNORMAL) Differential, Automated (08/10/2015 8:39 PM EST) [facility] gist Method Time Signature Neutrophils % [...] Organization Address City/State/[place] [address] CERNER MILLENNIUM (ABNORMAL) Hemogram [...] Johnson MD HEMATOLOGY ORDERABLES Performing Organization Address City/[facility]/ZIP Code Phon e Number [address] [facility] APTT (08/10/2015 8:39 PM EST) athologist [facility] PTT 32 25 - 35 sec [facility] Comment: Recommended therapeutic PTT range for fu ll dose unfractionated heparin is 80-114 seconds. Specimen Anatomical Collection Method Collection Time Receive d Time (Source) Location / / Volume Laterality Blood specimen 08/10/2015 8:39 PM 016 8:44 (specimen) EST PM EST Resulting Agency Comment Spec In Lab Cody Johnson MD HEMATOLOGY ORDERABLES Performing Organization Address City/[facility]/ZIP Code Phon e Number [address] [facility] (ABNORMAL) POCT Glucose (08/10/2015 7:57 PM EST) [...] Organization Address City/State/ZIP [place] [address] CERNER MILLENNIUM documented in this encounter Visit Diagnoses Not on filedocumented in this encounter Admitting Diagnoses Diagnosis NSTEMI (non-ST elevated myocardial infar ction) Acute myocardial infarction, subendocard ial infarction, episode of care unspecified documented in this encounter Administered Medications Inactive Administered Medications - up to 3 most recent administrations Medication Order MAR Action Action Date Dose Rate Site fentaNYL 50 mcg/mL multi-dose Given 08/11/2015 1:32 PM EST 12.5 mcg injection ONCE PRN, Starting on Yadira 216 at 1237, Until Yadira 16 at 1407, Intra-Operative (Intra-Procedure), Routine Given 08/11/2015 12:37 PM EST 25 mcg heparin (porcine) injection Given 08/11/2015 12:57 PM EST 2,000 Units ONCE PRN, Starting on Yadira 16 at 1245, Until Yadira 16 at 1420, Cath (Intra-Procedure), Routine Given 08/11/2015 12:45 PM EST 3,000 Units midazolam (PF) (VERSED) 1 mg/mL multi-dose Given 08/11/2015 1:32 PM EST 0.5 mg injection ONCE PRN, Starting on Yadira 216 at 1237, Until Yadira 216 at 1407, Cath (Intra-Procedure), Routine Given 08/11/2015 12:37 PM EST 0.5 mg nitroGLYcerin 100 mcg/mL intracoronary Given 08/11/2015 1:51 PM EST 200 mcg dilution ONCE PRN, Starting on Yadira 16 at 1241, Until Yadira 16 at 1420, Cath (Intra-Procedure), Routine Given 08/11/2015 1:43 PM EST 150 mcg Given 08/11/2015 1:11 PM EST 150 mcg sodium chloride 0.9% infusion New Bag 08/11/2015 1:45 PM EST 250 mLs CONTINUOUS PRN, Starting on Yadira 08/11/15 at 1345, Until Yadira 08/11/15 at 1420, Cath (Intra-Procedure) verapamil (ISOPTIN) injection Given 08/11/2015 12:41 PM EST 2.5 mg ONCE PRN, Starting on Yadira 08/11/15 at 1241, Until Yadira 08/11/15 at 1407, Administer over 2 Minutes, Cath (Intra-Procedure) documented in this encounter Active and Recently [...] RN) 0829 (Given - Provider: Nani Mclean, RN ) 81 mg, Oral, DAILY, First dose on Yadira 08/11/15 at 0900, Until Discontinued, Routine clopidogrel (PLAVIX) tablet 75 mg 0908 (Given - Provid er: Olga Begum RN)1210 (SEP Hold - Provider: Admin Adt - Reason: Transfer to a Procedural area)1604 (SEP Unhold - Provider: Admin Adt) 0856 (Given - Provider: Olga Begum RN) 0829 (Given - Provider: Nani Mclean, JOSEPH) 75 mg, Oral, DAILY, First dose on Yadira 08/11/15 at 0900, Until Discontinued, Routine DAPTOmycin (CUBICIN) [...] Procedural area)1604 (SEP Unhold - Provider: Admin Adt)2046 (Given - Provider: Kylee Abernathy RN) 0856 (Given - Provider: Louie Ortega)2045 (Given - Provider: Lali Fine) 0829 (Given - Provider: Nani Mclean RN ) 600 mg, Oral, 2 TIMES DAILY, First dose on Sat08/10/15 at 2300, Until Discontinued, Routine insulin aspart (NovoLOG) VIAL injection 1-4 Units (CAN CELED) 0439 (Given - Provider: Kylee Abernathy RN)0912 (Given - Provider: Olga Begum RN)1149 (Given - Provider: Olga Begum RN)1210 (SEP Hold - Provider: Admin Adt - Reason: Transfer to a Procedural area)1600 (Given - Provider: Olga Begum RN) 0000 (Not Given - Provider: Kylee burdick RN - Reason: Order parameters not met)0437 (Given - Provider: Kylee Abernathy RN)0857 (Given - Provider: Olga Begum RN)1244 (Given - Provider: Olga Begum RN) 0000 (Not Given - Provider: Lali Fine - Reason: Order parameters not met)0400 (Not Given - Provider: Lali Fine - Reason: Order parameters not met)0828 (Given - Provider: Nani Mclean, RN) 1-4 Units, Subcutaneous, EVERY 4 HOURS S CHEDULED, First dose on Sat08/10/15 at 2145, Until Discontinued, CORRECTION BOLUS Sensitive to insulin lean patient or total daily dose of all insulin needed t 1604 (SEP Unhold - Provider: Admin Adt)2033 (Given - Provider: Kylee Abernathy, RN) 163 (Given - Provider: Olga Begum, JOSEPH)2049 (Given - Provider: Lali Fine) o achieve [...] - Provider: Admin Adt)2230 (Given - Provider: Kylee Abernathy, JOSEPH) 2049 (Given - Provider: Lali Fine) 15 Units, Subcutaneous, NIGHTLY, First d ose on Sat08/11/15 at 2200, Until Discontinued, Routine lisinopril (PRINIVIL;ZESTRIL) tablet 5 mg 0910 (Given - Provider: Olga Begum RN)1210 (SEP Hold - Provider: Admin Adt - Reason: Transfer to a Procedural area)1604 (SEP Unhold - Provider: Admin Adt) 0856 (Given - Provider: Olga Begum, JOSEPH) 0829 (Given - Provider: Nani Mclean, RN ) 5 mg, Oral, DAILY, First dose on 08/11 at 0900, Until Discontinued, Routine magnesium sulfate 2 g in sterile water 50 mL (COMPLETE D) 0205 (Given - Provider: Kylee Abernathy, RN) 2 g, Intravenous, ONCE, 1 dose, Sat08/11/15 at 0115, for 120 Lyndsey epifanio meTOPROLOL succinate (TOPROL-XL) XL tablet 25 mg (CAN ELED) 0909 (Given - Provider: Olga Begum RN)1210 (SEP Hold - Provider: Admin Adt - Reason: Transfer to a Procedural area)1604 (SEP Unhold - Provider: Admin Adt) 0856 (Given - Provider: Olga Begum RN) 0829 (Given - Provider: Nani Mclean, JOSEPH ) 25 mg, Oral, DAILY, First dose on Yadira 08/11/15 at 0900, Until Discontinued, DO NOT CRUSH OR OPEN, Routine pantoprazole (PROTONIX) tablet 40 mg 09 (Given - Pro vider: Olga Begum RN)1210 (SEP Hold - Provider: Admin Adt - Reason: Transfer to a Procedural area)1604 (SEP Unhold - Provider: Admin Adt) 0856 (Given - Provider: Olga Begum RN) 0830 (Given - Provider: Nani Mclean RN ) 40 mg, Oral, DAILY, First dose on Yadira 08/11/15 at 0900, Until Discontinued, DO NOT CRUSH OR OPEN, Routine potassium chloride (K-DUR/KLOR-CON) extended release t ablet 40 mEq (COMPLETED) 0204 (Given - Provider: Kylee Abernathy RN) 40 mEq, Oral, ONCE, 1 dose, Yadira 08/11/15 a t 0115, 20 mEq tablet may be dissolved in water for administration, Routine potassium chloride (K-DUR/KLOR-CON) extended release t ablet 40 mEq (COMPLETED) 0907 (Given - Provider: Olga Begum RN) 40 mEq, Oral, ONCE, 1 dose, Yadira 08/11/15 at 0800, Routine potassium chloride (K-DUR/KLOR-CON) extended release tablet 40 mEq (COMPLETED) 0855 (Given - Provider: Olga Begum RN) 40 mEq, Oral, ONCE, 1 dose, Sat08/12/15 a t 0715, 20 mEq tablet may be dissolved in water for administration, Routine sertraline (ZOLOFT) tablet 50 mg (CANCELED) 0910 (Give n - Provider: Olga Begum RN)1210 (SEP Hold - Provider: Admin Adt - Reason: Transfer to a Procedural area)1604 (MAR Unhold - Provider: Admin Adt) 0856 (Given - Provider: Olga Begum RN) 0829 (Given - Provider: Nani Mclean, JOSEPH ) 50 mg, Oral, DAILY, First dose on 10/21 at 0900, Until Discontinued, Routine simvastatin (ZOCOR) tablet 20 mg (CANCELED) 1210 (SEP Hold - Provider: Admin Adt - Reason: Transfer to a Procedural area)1604 (MAR Unhold - Provider: Admin Adt)2253 (Given - Provider: Kylee Abernathy, JOSEPH) 204 (Given - Provider: Lali Fine) 20 mg, Oral, NIGHTLY, First dose on Sat08/10/15 at 2300, Until Discontinued, Routine sodium chloride 0.9 % flush 5 mL (CANCELED) 0912 (Give n - Provider: Olga Begum RN)1210 (MAR Hold - Provider: Admin Adt - Reason: Transfer to a Procedural area)1604 (SEP Unhold - Provider: Admin Adt)204 (Given - Provider: Kylee Abernathy RN) 0858 (Given - Provider: Louie Ortega N)2054 (Given - Provider: Lali Fine) 0830 (Given - Provider: Nani Mclean, JOSEPH ) 5 mL, Intravenous, 2 TIMES DAILY, First dose on Sat08/10/15 at 2145, Until Discontinued, Routine sodium chloride 0.9 % flush 5 mL (CANCELED) 1200 (Give n - Provider: Olga Begum RN) 5 mL, Intravenous, EVERY 12 HOURS, First dose on Sat08/11/15 at 1200, Until Discontinued, Cath (Day of Procedure), Routine Continuous Medication Order 08/11/2015 08/12/2015 08/13/2015 heparin 25,000 units in dextrose 5% 500 mL infusion (C ANCELED) 0001 (New Bag - Provider: Kylee Abernathy, JOSEPH)0250 (Rate/Dose Change - Provider: Kylee Abernathy, JOSEPH)0742 (Rate/Dose Change - Provider: Kylee Abernathy, JOSEPH)1210 (MAR Hold - Provider: Admin Adt - Reason: Transfer to a Procedural area) 350-7,000 Units/hr (7-140 mL/hr), Intrav enous, at 7-140 mL/hr, CONTINUOUS, Starting Sat16 at 2045, Until 08/13/15 at 1259, Patient [...] 1143 (New Ba g - Provider: Olga Begum RN) 100 mL/hr, at 100 mL/hr, Intravenous, CO NTINUOUS, Starting Yadira 08/11/15 at 1200, Until Yadira 216 at 1420, Cath (Day of Procedure) sodium chloride 0.9% infusion () 1425 (New Bag - Provider: Elicia Hatch RN) 125 mL/hr, at 125 mL/hr, Intravenous, CO NTINUOUS, Starting Yadira 16 at 1445, Until Yadira 216 at 1844, Recovery (Recovery-Hospital Unit) PRN Medication Order 08/11/2015 08/12/2015 08/13/2015 acetaminophen (TYLENOL) tablet 325 mg (CANCELED) 1210 (SEP Hold - Provider: Admin Adt - Reason: Transfer to a Procedural area)1604 (SEP Unhold - Provider: Admin Adt)2045 (Given - Provider: Kylee Abernathy RN) 325 mg, Oral, EVERY 4 HOURS PRN, Startin g Sat08/10/15 at 2122, Until 08/13/15 at 1259, Pain, Maximum dose of acetaminophen is 4000 mg from all sources in 24 hours., Routine fentaNYL 50 mcg/mL multi-dose injection (CANCELED) 123 7 (Given - Provider: Alexa Del Rosario RN)1332 (Given - Provider: Rosy Osorio RN) ONCE PRN, Starting Yadira 08/11/15 at 1237, U ntil Yadira 08/11/15 at 1407, Intra-Operative (Intra-Procedure), Routine heparin (porcine) injection 1,400-2,800 Units (CANCELE D) 0250 (Given - Provider: Kylee Abernathy, JOSEPH)0743 (Given - Provider: Kylee Abernathy RN)1210 (SEP Hold - Provider: Admin Adt - Reason: Transfer to a Procedural area)1604 (SEP Unhold - Provider: Admin Adt) 1,400-2,800 Units, Intravenous, BOLUS PE R HEPARIN PROTOCOL, Starting Sat08/10/15 at 2018, Until 08/13/15 at 1259, [...] Del Rosario RN) ONCE PRN, Starting Yadira 08/11/15 at 1245, U ntil Yadira 08/11/15 at 1420, Cath (Intra- Procedure), Routine LORazepam (ATIVAN) tablet 0.5 mg 1210 (SEP Hold - Prov ider: Admin Adt - Reason: Transfer to a Procedural area)1604 (SEP Unhold - Provider: Admin Adt) 0.5 mg, Oral, EVERY 6 HOURS PRN, Startin g Sat08/10/15 at 2122, Until 08/13/15 at 1259, Anxiety, Routine midazolam (PF) (VERSED) 1 mg/mL multi-dose injection ( CANCELED) 1237 (Given - Provider: Alexa Del Rosario, RN)1332 (Given - Provider: Rosy Osorio, JOSEPH) ONCE PRN, Starting Yadira 2 at 1237, U ntil Yadira 216 at 1407, Cath (Intra- Procedure), Routine nitroGLYcerin (NITROSTAT) SL tablet 0.4 mg 1210 (SEP H old - Provider: Admin Adt - Reason: Transfer to a Procedural area)1604 (SEP Unhold - Provider: Admin Adt) 0.4 mg, Sublingual, EVERY 5 MIN PRN, Sta rting 08/10/15 at 2122, Until 08/13/15 at 1259, Chest pain, May repeat every [...] Shannan Thornton MD) ONCE PRN, Starting Yadira 2 at 1241, U ntil Yadira 216 at 1420, Cath (Intra- Procedure), Routine ondansetron (ZOFRAN) injection 4 mg (CANCELED) 0437 (G iven - Provider: Kylee Abernathy, RN)1210 (SEP Hold - Provider: Admin Adt - Reason: Transfer to a Procedural area)1604 (SEP Unhold - Provider: Admin Adt) 4 mg, Intravenous, EVERY 8 HOURS PRN, St arting 08/10/15 at 2122, Until Sat 2 at 1259, Nausea sodium chloride 0.9% infusion (CANCELED) 1345 (New Bag - Provider: Alexa Del Rosario, RN) CONTINUOUS PRN, Starting Yadira 08/11/15 at 1 345, Until Yadira 08/11/15 at 1420, Cath (Intra-Procedure) verapamil (ISOPTIN) injection (CANCELED) 1241 (Given - Provider: Sallie Colunga MD) ONCE PRN, Starting Yadira 08/11/15 at 1241, U ntil Yadira 08/11/15 at 1407, for 2 Minutes, Cath (Intra-Procedure) documented in this encounter Care Teams Tick Sewer Relationship Specialty Start Date End Date Gordy Moon MD PCP - General Family Medicine 05/19/[address] [place] [address] documented as of this encounter
--- OUTSIDE RECORDS SUMMARY | 2022-01-25 00:55 | XMS_ITS | Encounter Summary ---
:1950 Author Organization [facility] [place] [address] Care Team Providers Name Role Phone Gordy Gregg MD Primary Care Provider [phone] Encounter Details Date Type Department Care Team Description 10/11/2015 Hospital Encounter Vascular Lab at [facility], PAD (peripheral artery disease); 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 left lower extremity documented in this encounter Results SOSA, legs, multiple levels (10/11/2015 11:29 AM EDT) Component Value Ref Test Analysis Performed At [facility] [place] Range Method Time Signature VB Text Department: Vascular Surgery Lab [facility] Report Patient: [id number] (CARRIE PERRY) CPT: 18543 ICD10: Z89.612;I73.9 Referring Physician: GLEN DOYLE ?? Indications: PAD, Hx failed LLE bypass & AKA; reevaluate RLE perfusion Diabetes mellitus: Yes ICD10 Diagnosis Code: Z89.612, I73.9 Findings: Right ?Pressure (mm Hg) ?? SOSA ??Waveform ? TBI ?? Brachial Artery ?181 ? Dorsalis Pedis (Ankle) Arter y ?87 ?0.48 ??Monophasic ? Posterior Tibial (Ankle) Art gregory ??90 ?0.49 ??Monophasic ? Great Toe ?39 ?0.21 ?? Left ? Pressure (mm Hg) ?? Brachial Artery ?182 ? Interpretation: RIGHT: Moderately severe lower extremity arterial occlusive disease. No significant change compared to previous exam 06-27-15. Previous ABIs with change from previous value: [...] ??0.49(+.28) 0.53(+.25) 0.24( +.19) 0.31(+.22) 0.00(-.19) 0.06(+.06) Current ? 0.48(-.01) 0.4 9(-.04) 0.21(-.03) ---- ? ---- ? 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
--- OUTSIDE RECORDS SUMMARY | 2022-01-25 00:55 | XMS_ITS | Encounter Summary ---
:1950 [place] [address] Care Team Providers Name Role Phone Gordy Gregg MD Primary Care Provider Reason for Visit Reason Comments Follow-up Recheck my wound Encounter Details Date Type Department Care Team Description 09/20/2015 Office Visit Vascular Surgery at [facility] P[facility] (peripheral artery disease); [address] Critical lower limb ischemia; [facility] VASCULAR SURG GREGORY 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 [id number] [phone] Social History Tobacco Use Types Packs/Day Years Used Date Never Smoker Smokeless Tobacco: Never Used Alcohol Use Standard Drinks/Week Comments No 0 (1 standard drink = 0.6 oz pure alcoho l) Sex Assigned at Date Recorded Not on file documented as of this encounter Last Filed Vital Signs Vital Sign Reading Time Taken Comments Blood Pressure 153/52 09/20/2015 1:40 PM EDT Pulse 62 09/20/2015 1:40 PM EDT Temperature - - Respiratory Rate - - Oxygen Saturation - - Inhaled Oxygen Concentration - - Weight 44.5 kg (98 lb) 09/20/2015 1:40 PM EDT Height - - Body Mass Index 19.14 08/17/2015 2:58 PM EST documented in this encounter Patient Instructions Patient InstructionsRadha Waller PA - 09/20/2015 2:10 PM EDT VNA instructions: VAC on hold Please apply a silver collagen dressing to left groin wound - change M-W-F Cover with dry dressing - change as often as needed to manage drainage If silver collagen unable to be obtained then may apply silver alginate dressing in it's place Pt may shower prior to dressing changes Please instruct pt on dressing care so she may start to perform at home. Please watch for any signs of infection which can include redness, swelling, increasing drainage, warmth to the incisional area, foul odor, and fever or chills. If any of these develop near your incisions then please contact the office. Will reevaluate in the office in 3 weeks. documented in this encounter Progress Notes Radha Waller PA - 09/20/2015 2:14 PM EDT This patient returned to the vascular clinic today for a follow up visit for a post-op check after her left AKA and reevaluation of her left groin wound. Since her last visit the patient has returned home and has the support of PT/OT/VNA in her home. Herfamily is also very attentive to her rehab and wound care needs. She states she feels much better, has more energy, and is gaining strength and weight. Her appetite has returned and she is doing very well with rehab. She reports that her left AKA stump site has remained closed. She continues to have VAC therapy to the left groin wound which she feels has dramatically improved since her last visit. She denies problems with her right leg and has not developed any rest pain or tissue loss there. She remains afebrile without fevers/chills. She has not had any new chest [...] CONDUIT performed by Glen Doyle MD at [facility] OR ??? Pro bypass graft vein patch/cuff, synthetic Left 05/26/2015 PLACEMENT VEIN PATCH OR CUFF AT DISTAL ANASTOMOSIS OF BYPASS GRAFT, SYNTHETIC CONDUIT , RODRIGUEZ-COLLAR, RACHELLE-PATCH, ADD-ON CODE, LOWER EXTREMITY performed by Glen Doyle MD at [facility] OR ??? Pro thromboendartectmy iliofemoral Left 05/26/2015 @ENDARTERECTOMY, ILIOFEMORAL W OR W/O PATCH GRAFT performed by Glen Doyle MD at [facility] OR ??? Pro reoperation, bypass graft Left 05/26/2015 @RE-OP FOR RE-DO LOWER EXTREMITY BYPASS GRAFT, >1 MONTH P\ ORIGINAL SURGERY, ADD-ON CODE performed by Glen Doyle MD at [facility] ??? Pro amputation low leg, circular Left 07/24/2015 @AMPUTATION, BELOW-KNEE, OPEN, GUILLOTINE performed by Elicia Caal MD at [facility] ??? Pro exploration, femoral artery Left 07/24/2015 @EXPLORATION, W/WO LYSIS, FEMORAL ARTERY W\O SURGICAL REPAIR performed by Elicia Caal MD at [facility] ??? Pro negative pressure wound therapy, less than or equal to 50 sqcm Left 07/24/2015 DRESSING CHANGE (VAC ASSISTED) UP TO 50SQ.CM performed by Elicia Caal MD at [facility] ??? Pro rebl ves direct, low extrem Left 07/24/2015 REPAIR LOWER EXTREMITY BLOOD VESSEL, DIRECT, NO PATCH OR GRAFT performed by Elicia Caal MD at [facility] OR ??? Pro excision, infec graft, extremity Left 07/24/2015 EXCISION OF INFECTED GRAFT FROM LOWER EXTREMITY performed by Elicia Caal MD at [facility] OR ??? Pro muscle-skin flap, leg Left 07/27/2015 FLAP, MYOCUTANEOUS OR FASCIOCUTANEOUS, LOWER EXTREMITY performed by Elicia Caal MD at [facility] OR ? ? Pro debridement subcutaneous tissue 20 sqcm/< Left 07/27/2015 DEBRIDEMENT SKIN AND SUBCU, LOWER EXTREMITY performed by Elicia Caal MD at [facility] OR ??? Pro dressing change under anesthesia Left 07/29/2015 DRESSING CHANGE (FOR OTHER THAN ESCALANTE) UNDER ANES., LOWER EXTREMITY performed by Elicia Caal MD at [facility] OR ??? Pro amputate thigh, secondry closur Left 07/29/2015 AMPUTATION, ABOVE-KNEE, SECONDARY CLOSURE OR SCAR REVISION performed by Elicia Caal MD at [facility] OR Social Hx: History Substance Use Topics ??? Smoking status: Never Smoker ??? Smokeless tobacco: Never Used ??? Alcohol Use: No Medications: Medications 09/20/15 1343 Medication Sig Taking? insulin glargine (LANTUS) Solution Inject subcutaneously nightly. Yes clopidogrel (PLAVIX) 75 mg Tablet Take 1 tablet by mouth daily. lisinopril (PRINIVIL;ZESTRIL) 5 mg Tablet Take 1 tablet by mouth daily. LORazepam (ATIVAN) 0.5 mg Tablet Take 1 tablet by mouth every 6 hours as needed for Anxiety. nitroGLYcerin (NITROSTAT) 0.4 mg Tablet, Sublingual Place [...] (1-6)). sertraline (ZOLOFT) 50 mg Tablet Take 50 mg by mouth daily. meTOPROLOL succinate (TOPROL-XL) 25 mg Tablet Sustained Release 24 hr Take 1 tablet by mouth daily. multivitamin (THERAGRAN) Tablet Take 1 tablet by mouth daily. aspirin 81 mg Tablet, Delayed Release (E.C.) Take 1 tablet by mouth daily. simvastatin (ZOCOR) 20 mg Tablet Take 20 mg by mouth nightly. acetaminophen (TYLENOL) 325 mg Tablet Take 325 mg by mouth every 4 hours as needed for Pain. Allergies: No Known Allergies Review of Systems: [...] ROS negative Physical Exam: Vitals: Filed Vitals: 09/20/15 1340 BP: 153/52 Pulse: 62 Gen: No acute distress. HEENT: Normocephalic, atraumatic. No scleral icterus. (+) glasses Neck: Supple, no JVD. Heart: Regular rate and rhythm. Lungs: Regular respiratory rate with no increased work of breathing. Abd: Soft, nontender, not distended. Audible bowel sounds. No bruits or pulsatile mass on exam. Extremities: Left groin wound - 95% granulation tissue, 5% fixed whitish yellow slough at 2 o'clock which was debrided today with scissors and forceps which was well tolerated with minimal bleeding controlled with dry gauze. There was no malodor, purulence, or surrounding erythema. 50 cc of serosanguinous drainagewas present in the VAC cannister. The wound measured 7.5 x 3.1 x 0.1 cm. Left AKA incision - well approximated. No [...] CHF admission, recent PANDA Recommendations: This patient has done very well with her left groin VAC therapy but the wound has now filled in enough that we can transition to topical medicated dressings. We will place the VAC on hold for now but this will likely be able to be returned in the next 2 weeks so long as the topical wound dressings are improving the wound. See instructions below. If there are any concerns with this treatment she should call the office. Otherwise, we will see her back in 3 weeks to reevaluate the wound and I have recommended reevaluation of SOSA on the right leg at that time. If she develops any rest pain or tissue loss on the right wemust be notified. VNA instructions: VAC on hold Please apply a silver collagen dressing to left groin wound - change M-W-F Cover with dry dressing - change as often as needed to manage drainage If silver collagen unable to be obtained then may apply silver alginate dressing in it's place Pt may shower prior to dressing changes Please instruct pt on dressing care so she may start to perform at home. Please watch for any signs of infection which can include redness, swelling, increasing drainage, warmth to the incisional area, foul odor, and fever or chills. If any of these develop near your incisions then please contact the office. Will reevaluate in the office in 3 weeks. documented in this encounter Plan of Treatment Not on filedocumented as of this encounter Results SOSA, legs, multiple levels (10/11/2015 11:29 AM EDT) Component Value Ref Test Analysis Performed At [facility] Range Method Time Signature VB Text Department: Vascular Surgery Lab [facility] Report Patient: [id number] (CARRIE PERRY) CPT: 93602 ICD10: Z89.612;I73.9 Referring Physician: GLEN DOYLE ?? [...] (peripheral artery disease) Peripheral vascular disease, unspecified Critical lower limb ischemia Unspecified circulatory system disorder 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 documented in this encounter Care Teams Log Inspector Relationship Specialty Start Date End Date Gordy Gregg MD PCP - General Family Medicine 05/19/[address] [place] [address] documented as of this encounter
--- OUTSIDE RECORDS SUMMARY | 2022-01-25 00:56 | XMS_ITS | Encounter Summary ---
:1950 Author Organization [facility] Address [address] [place] [address] Care Team Providers Name Role Phone Gordy Moon MD Primary Care Provider [phone] Reason for Referral Consultation (Routine) - Closed Specialty Diagnoses / Procedures Referred By Contact Refer red To Contact Infectious Diseases Diagnoses Infected prosthetic vascular graft, initial encounter Critical lower limb ischemia Status post above knee amputation of left lower extremity Elicia Caal A, MD Mary-Margaret, MD [facility] DR VASCULAR SURGERY [place] [address] [place] [address] Fax: Referral ID Status Reason Start Date Expiration Date Visits V isits Requested Authorized [id number] Closed Assume 08/03/2015 08/02/2016 1 1 Subset of Care Reason for Visit Auth/Cert - Closed Specialty Diagnoses / Procedures Referred By Contact Refer red To Contact Diagnoses SFA to peroneal bypass occluded graft Procedures PRO VEIN IN SITU BYPASS GRAFT, FEM-TIB PRO VEIN BYPASS GRAFT, FEM-TIBIAL @BYPASS GRAFT, FEM.-ANT. TIB, POST. TIB, PERONEAL, DP W\ VEIN CONDUIT ([place] [id number]) Referral ID Status Reason Start Date Expiration Date Visits Requ ested Visits Authorized [id number] Closed 1 1 Encounter Details Date Type Department Care Team Description 07/23/2015 - Hospital Encounter 4 [place] Haley Singhabril, Infected prosthetic vascular graft, initial encounter; 08/03/2015 [facility] Connor Gaytan Critical lower limb ischemia; [facility] Status post above knee amput ation of left lower extremity [facility] [address] VASCULAR SURGERY [place], [place] [id number] [phone] Social History Tobacco Use Types Packs/Day Years Used Date Never Smoker Smokeless Tobacco: Never Used Alcohol Use Standard Drinks/Week Comments No 0 (1 standard drink = 0.6 oz pure alcoho l) Sex Assigned at Date Recorded Not on file documented as of this encounter Last Filed Vital Signs Vital Sign Reading Time Taken Comments Blood Pressure 162/94 08/03/2015 11:15 AM EST Pulse 95 08/03/2015 11:15 AM EST Temperature 36.6 ??C (97.9 ??F) 08/03/2015 11:15 AM EST Respiratory Rate 18 08/03/2015 11:15 AM EST Oxygen Saturation 93% 08/03/2015 11:25 AM EST Inhaled Oxygen Concentration - - Weight 59 kg (130 lb 1.1 oz) 07/27/2015 8:00 PM EST Height 152.4 cm (5') 07/24/2015 4:37 AM EST Body Mass Index 25.4 07/24/2015 4:37 AM EST documented in this encounter Discharge Summaries Mariano Miramontes MD - 08/03/2015 9:29 AM EST Inpatient - Discharge Summary Patient Name: Chan Hurst Patient Age: 64 y.o. Birthdate: 1950 Admit date: 07/23/2015 Discharge date and time: 08/03/2015 Attending Physician: Elicia Caal, * Discharge Diagnoses (Hospital Problems) and Secondary Diagnoses (Chronic Problems): Active Hospital Problems Diagnosis ??? Critical lower limb ischemia 07/29/2015: Left AKA 07/27/2015: Left groin sartorius flap 07/24/2015: LLE guillotine amp, removal PTFE graft, left groin wound vac placement Resolved Hospital Problems Diagnosis Date Resolved No resolved problems to display. Active Non-Hospital Problems Diagnosis ??? HLD (hyperlipidemia) ??? DMII (diabetes mellitus, type 2) ??? Hypercholesterolemia ??? Hypertension Operations/Major Procedures: 07/24/2015: LLE guillotine amp, removal PTFE graft, left groin wound vacplacement 07/27/2015: Left groin excisional debridement, Irrigation of excised LLE bypass tunnel, Left Sartorious flap coverage of patched femoral artery, Left groin wound vac placement. 07/29/2015: Left AKA History of Presentation: 64yo woman known to our service for prior treatment of LLE CLI (rest pain) who presents now with wet gangrene of the left lower extremity. In short, patient developed claudication in October 2014, this quickly progressed to rest pain. She underwent SFA to peroneal bypass with vein in 03-18-15. On 05-19-15 this bypass graft was noted to be occluded and her rest pain was persistent. She then underwent a second LLE bypass CLIENT SERVICES ASSOCIATE to PT with PTFE, on 05-26. This was found to be occluded on 06-01. Since that time the patient has had progressive worsening of her medial/distal surgical incision that has failed to heal. With no additional revasc options she was offered opportunity to enrol in stemcell trial, but declined. 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 On 07-20-15 she present to [facility] with SIRS physiology, felt to be related to her leg wound. She declinedtransfer to [facility] for amputation at that time and was admitted and started on antibiotics. Today, shehas resigned to transfer for further care of her leg wound. Of note, she was growing MRSA and pseudomonas from the wound at the OSH, she has been on ceftazidineand vancomycin. The patient received Morphine 30mg po and Ativan 1mg IV for transport here and is too lethargic to engage for interview at this time. Thus, additional history is from medical records. Hospital Course: In surgery, bk guillotine amputation performed of the LLE with large amounts of purulent drainage expressed from PTFE graft tunnel. Incision extended along medial calf , PTFE graft completely unincorporated and bathed in exudate. Small collection in left groin aspirated and returned infected- appearing fluid. Decision made to explant graft. Left groin incision re-opened, groin explored with healthy appearing artery, but prior bovine patch and PTFE anastomosis clearly infected. Proximal and distal control was obtained, PTFE graft ligated and resected; bovine pericardial patch resected, CLIENT SERVICES ASSOCIATE debrided and repaired with new bovine pericardial patch after copious wound irrigation. Pt admitted for postop monitoring. Returned to OR 07/27: Well drained infected area, no residual infection or purulence.?? Copiously irrigated with warm saline. No noted residual infection in old bypass tunnel.?? Sartorious muscle small but mobilized and used to cover the patched femoral artery.?? Wound then covered with wound vac using3 pieces of black sponge. Readmitted to floor and returned to OR 07/29/2015 for completion AKA. Started initially on IV Vanc/zosyn but had elevated Cr s/t supratherapeutic trough so vanc was d/c'd. Zosyn d/c'd and pt started IV Dapto for new micro growth records. [facility] ID involved with final recs for: IV Dapto through PICC line placed day of discharge. Nephrology consulted for PANDA with Cr rise to 1.87 at peak s/t supertherapeutic Vanc. Renal duplex obtained, resulted below. Pt's metformin and lisinopril held. Nephrology will see pt outpt. Cr @ discharge: 1.31, baseline 0.35. Initially on HYDRAMATIC SPECIALIST for pain control through 07/31, transitioned to PO oxycodone PRN with good effect. Neurontin increased to 600mg BID. Garnica removed 07/31 and pt voiding adequately. Worked with PT who recommend rehab. Good PO intake andadequate outpt. PICC placed on 08/03. Pt cleared for d/c to rehab with cont'd IV antibx. Of note, pt's partner, Jaime was established as pt's DPOA during this admission. Important Studies and Lab Data: Labs: Recent Results (from the past 24 hour(s)) POCT Glucose Result Value Ref Range POC Glucose 223 (H) 65 - 199 mg/dL POCT Glucose Result Value Ref Range POC Glucose 181 65 - 199 mg/dL POCT Glucose Result Value Ref Range POC Glucose 142 65 - 199 mg/dL POCT Glucose Result Value Ref Range POC Glucose 145 65 - 199 mg/dL Basic Metabolic Panel (non-fasting) Result Value Ref Range Glucose Lvl 152 65 - 199 mg/dL BUN 20 (H) 8 - 18 mg/dL Creatinine 1.31 (H) 0.70 - 1.20 mg/dL Sodium 139 135 - 145 mmol/L Potassium 4.1 3.5 - 5.0 mmol/L Chloride 101 98 - 107 mmol/L CO2 25 22 - 31 mmol/L Anion Gap 13 5 - 15 mmol/L Calcium 8.0 (L) 8.5 - 10.5 mg/dL Estimated GFR 41 (L) >=60 Hemogram Result Value Ref Range WBC 11.7 (H) 4.0 - 10.0 x10(3)/mcL RBC 3.00 (L) 3.93 - 5.22 x10(6)/mcL Hemoglobin 8.8 (L) 11.2 - 15.7 gm/dL Hematocrit 26.7 (L) 34.0 - 45.0 % MCV 89.0 79.0 - 94.0 fL MCH 29.3 26.6 - 32.2 pg MCHC 33.0 32.0 - 36.5 gm/dL Platelets 407 (H) 145 - 370 x10(3)/mcL RDWSD 52.4 (H) 35.0 - 46.0 fL RDWCV 16.2 (H) 10.9 - 14.4 % MPV 10.6 9.0 - 12.0 fL Differential, Automated Result Value Ref Range Neutrophils % 79.1 % Neutr Abs (ANC) 9.28 (H) 1.50 - 6.30 x10(3)/mcL Lymphocytes % 9.6 % Lymphocytes Abs 1.1 1.0 - 3.6 x10(3)/mcL Monocytes % 8.6 % Monocyte Abs 1.0 0.2 - 1.0 x10(3)/mcL Eosinophils % 1.8 % Eosinophils Abs 0.2 0.0 - 0.5 x10(3)/mcL Basophils % 0.6 % Basophils Abs 0.1 0.0 - 0.2 x10(3)/mcL Immature Gran % 0.30 % Rosenda Gran Abs 0.03 0.00 - 0.05 x10(3)/mcL POCT Glucose Result Value Ref Range POC Glucose 162 65 - 199 mg/dL POCT Glucose Result Value Ref Range POC Glucose 197 65 - 199 mg/dL Studies: 07/29/2015 Renal Duplex Interpretation: RIGHT: Patent main renal artery with no evidence of hemodynamically significant stenosis. Patent renal vein. LEFT: Patent main renal artery with peak systolic velocity that meet the criteria for >60% renal artery stenosis. Patent renal vein. Discharge Conditions/Prognosis: Good Discharge to: [address] [place] [address] Discharge Medications: Your Medications New Medications Dose Details insulin aspart Soln Commonly known as: NovoLOG Inject 1-4 Units subcutaneously every 4 hours. 1-4 Units Quantity: 10 mL Refills: 12 Continued medications with new dosing Dose Details gabapentin 300 mg Cap Commonly known as: NEURONTIN Take 2 capsules by mouth 2 times daily. Indications: Neuropathic Pain What changed: - how much to take - when to take this - additional instructions 600 mg Quantity: 90 capsule Refills: 12 oxyCODONE 5 mg Tab Commonly known as: ROXICODONE Take 1 tablet by mouth every 4 hours as needed for Pain (mild to moderate pain (1-6)). What changed: - when to take this - reasons to take this 5 mg Quantity: 30 tablet Refills: 0 Continued medications, unchanged Dose Details acetaminophen 325 mg Tab Commonly known as: TYLENOL Take 325 mg by mouth every 4 hours as needed for Pain. 325 mg Refills: 0 aspirin 81 mg Tbec Take 1 tablet by mouth daily. 81 mg Quantity: 30 tablet Refills: 3 meTOPROLOL succinate 25 mg Tablet sr Commonly known as: TOPROL-XL Take 1 tablet by mouth daily. 25 mg Quantity: 30 tablet Refills: 12 multivitamin Tab Commonly known as: THERAGRAN Take 1 tablet by mouth daily. 1 tablet Refills: 0 sertraline 50 mg Tab Commonly known as: ZOLOFT Take 50 mg by mouth daily. 50 mg Refills: 0 simvastatin 20 mg Tab Commonly known as: ZOCOR Take 20 mg by mouth nightly. 20 mg Refills: 0 STOPPED Medications lisinopril 5 mg Tab Commonly known as: PRINIVIL;ZESTRIL metFORMIN 500 mg Tab Commonly known as: GLUCOPHAGE Updated Allergies/ADRs: No Known Allergies Follow-up Recommendations for Providers: Please change wound vac dressing on Mon/Wed/Fri schedule or every 2-3 days. Pt can shower on dressing change days; remove dressing, shower allowing soap and water to cleanse the wound, pat dry and replace dressing. Wet-to-dry dressing can be used in case of vac malfunction or for clinic apts. One piece black sponge on continuous suction at 125mmhg. Please change dry dressing to left AKA site daily. Please call with any increased s/sx of infection to either wound. Per Physical Therapy: Pt demonstrated the following ? Pt moved supine to sit with mod assist ?? Sitting EOB with cues and standby supervision.? Demonstrated active exercises R LE and hip abd/add L side. ?? Education:?? Positioning to maintain hip extension including lying flat at times versus always sitting or reclinced, expected progression of mobility as she awaits appropriateness for starting prosthetic training, safety, sitting balance ?? Stand at walker with mod assist, cues, reassurance ?? Shuffles stepped to chair, essentially turning 90 degrees, to chair, and manual assist to reach to chair ?? Cues and min assist to adjust seated position in chair, footstool provided given her short stature Physical Therapy Goals: ?? 1. Pt. to demonstrate knowledge of precautions & safety during functional activities, call for assist prior to moving. 2. Pt. to demonstrate understanding of appropriate exercises including prevent of L hip contracture (AKA). 3. Pt. to perform bed mobility with min assist x 1 4. Pt maintain sitting balance on her own, supervised. 5. Pt. to perform sit > stand from EOB to walker with min A x 1 and stand for at least 2 min. 6. Pt perform slide board transfer's with 1 person assist. 7. Pt propel w/c (I) 50' with arms.? 8. Pt. to wt shift or hop or pivot on R LE holding walker to transfer bed >< chair w/ min A x 2 Instructions Given to Patient at Discharge: Patient Instructions Patient Instructions You were admitted on 07/23/2015 after having infection present in your left leg great. This graft wasremoved and you had a left above knee amputation as well as a left groin washout and wound vac placement. All of this went well. Dr. Caal will want to see you in 1-2 weeks for a wound check. All of this will be ordered and sent to you in the mail. If for some reason you don't receive this withina week or so please call our office as your followup is very important. Call your doctor if: Any fever, any drainage, redness or separation of your incision, increased painor change in temperature of your leg Activity level: up as tolerated but watch for swelling of your leg. Manage this with leg elevation, toes higher than your nose and also can use acewrapping from your foot to below knee, tape in place, rewrap as necessary. Diet: resume your previous regular diet Driving: none right now with pain medication use Shower/Bath: showering is fine on dressing change days Wound Care: Nursing should change your wound vac dressing on Mon/Sat/Fri schedule or every 2-3 days.You can shower on dressing change days; remove dressing, shower allowing soap and water to cleanse the wound, pat dry and replace dressing. Wet-to-dry dressing can be used in case of vac malfunction or for clinic apts. Your left AKA site should have a dry dressing changed daily. You should stop taking your lisinopril and metformin until you are cleared to re-start by nephrology. For any problems or questions please call [phone] SAMIA Lopez, landscaping crew leader Nurse Clinician For issues on weeknights after 5pm and weekends please call [phone] and ask for the Vascular Fellow montessori lead teacher. General Instructions None Future Appointments and Orders Future Appointments Provider Department Dept Phone 08/17/2015 3:00 PM Radha Waller PA Vascular Surgery [phone] 08/17/2015 4:00 PM Maria Hernandez MD; Donya Awad MD Nephrology [phone] Future Orders Complete By Expires OPAT: Order / Recommendation for Post Discharge IV Antibiotic Management [[id number] CPT(R)] As directed Process Instructions: If no progress note charted, please enter Clinical details in comments. Scheduling Instructions: Comments: Please Fax all results to: OPAT Program Infectious Disease Section [facility] [place], [place] [address] FAX: Line care instructions per [facility] OPAT Program protocol. After hours, please contact the Infectious Disease Physician montessori lead teacher at . If this order was signed greater than 72 hours prior to [facility] discharge, please call to confirm the accuracy of this order. Questions: ID Diagnosis: Infected Left Femoral Graft; LLE Ischemia S/P AKA Microorganisms being treated: MRSA Antibiotic Allergies: NKA Antibiotic (one line for each ABx): Daptomycin 355 mg IV q48h Start date: 07/24/2015 Anticipated stop date: 08/21/2015 Labs: Every Saturday: CBC, CMP Last documented weight (kg): 59 kg (130 lb 1.1 oz) Last documented height (cm): 152.4 cm (5') Responsible Attending: Hoa Felipe MD Discharge References/Attachments: Discharge References/Attachments None Electronically Signed By: MARIANO MIRAMONTES MD 08/03/2015 documented in this encounter Discharge Instructions Patient InstructionsMargi Lockhart RN - 08/03/2015 9:47 AM EST Patient Instructions You were admitted on 07/23/2015 after having infection present in your left leg great. This graft wasremoved and you had a left above knee amputation as well as a left groin washout and wound vac placement. All of this went well. Dr. Caal will want to see you in 1-2 weeks for a wound check. All of this will be ordered and sent to you in the mail. If for some reason you don't receive this withina week or so please call our office as your followup is very important. Call your doctor if: Any fever, any drainage, redness or separation of your incision, increased painor change in temperature of your leg Activity level: up as tolerated but watch for swelling of your leg. Manage this with leg elevation, toes higher than your nose and also can use acewrapping from your foot to below knee, tape in place, rewrap as necessary. Diet: resume your previous regular diet Driving: none right now with pain medication use Shower/Bath: showering is fine on dressing change days Wound Care: Nursing should change your wound vac dressing on Sat/Sat/Sat schedule or every 2-3 days.You can shower on dressing change days; remove dressing, shower allowing soap and water to cleanse the wound, pat dry and replace dressing. Wet-to-dry dressing can be used in case of vac malfunction or for clinic apts. Your left AKA site should have a dry dressing changed daily. You should stop taking your lisinopril and metformin until you are cleared to re-start by nephrology. For any problems or questions please call [phone] SAMIA Lopez, landscaping crew leader Nurse Clinician For issues on weeknights after 5pm and weekends please call [phone] and ask for the Vascular Fellow montessori lead teacher. documented in this encounter Medications at Time of [...] documented as of this encounter Progress Notes Karen Alfonso RN - 08/03/2015 1:59 PM EST Pt being discharged to [facility] by ambulance. PICC line placed today for IV abx treatment. PIVs removed. Wound vac clamped for ride. Reported called to receiving facility. Discharge summary and medicationsheet printed and placed in discharge packet. Complications regarding code status. industrial sales manager Joanna gaxiola and MD Jason Miramontes informed and questioned. Code order read as DNR, but scanned advanced directive read full code. MD Miramontes and adult protective caseworker Sachin spoke with pt. It was determined that the pt requested DNR status and paperwork was filled out accordingly. Plan reviewed with pt and pt family. Hoa Felipe MD - 08/03/2015 1:06 PM EST Infectious Disease Progress Note # Infected left common femoral PFTE graft s/p excision 07/24/15 (MRSA); new bovine patch pericardial graft with sartorious flap coverage # LLE ischemia, gangrene s/p BKA revised to AKA 07/29/15 # H/o PANDA on Vancomycin Current antimicrobials: Daptomycin S: Some anxiety today and mild SOB. Some phantom limb pain. PE: Filed Vitals: 08/03/15 1115 BP: 162/94 Pulse: 95 Temp: 36.6 ??C (97.9 ??F) Resp: 18 Pale. Wearing 02 Lungs clear Cor RRR Left groin vac dressing: minimal periwound erythema Left AKA site not undressed Data: Lab Results Component Value Date WBC 11.7* 08/03/2015 HGB 8.8* 08/03/2015 HCT 26.7* 08/03/2015 MCV 89.0 08/03/2015 PLATELET 407* 08/03/2015 Lab Results Component Value Date CREATININE 1.31* 08/03/2015 Lab Results Component Value Date ALT 6 07/28/2015 AST 11 07/28/2015 ALKPHOS 184* 07/28/2015 BILITOT 0.3 07/28/2015 CrCl by 24 hr urine: 20 (recommended value for med Dosing per nephrology.) Impression: H/o infected left common femoral bypass graft excision (MRSA) s/p revision with bovine patch graft. Ongoing vac wound. S/p AKA. SNF transfer planned for today. Recommendations: 1) Daptomycin 335 mg IV q 48 hr through 08/21 (4 weeks). Dose adjustment would be required for CrCl>30. OPAT order placed. 2) Doxycycline 100 mg po bid x 2 weeks following that 3) Please let us know if you would like pt to f/u in ID clinic after d/c from SNF. ID Consult service will continue to follow the patient x ID Consult service will sign off. Please call us back if further assistance is needed. 25' M.M. MD Matteo Pager [phone] Tiffany Driver - 08/03/2015 12:18 PM EST Office of Care Management/Parking Manager Patient Name: Chan Hurst : 1950 Patient has been offered a swing bed at [facility]. [facility] arranged for a 1:30 pm Transport. Ambulance will need: Medicare ambulance form completed and signed (MD or CRC) Copy of patient demographics [place] [facility] DNR/DNI order, if active Please have MD call Dr Haley Hopson @ [phone] and page her. RN to RN:Please call Nursing Report to Amalia Pond RN @ [phone]. Info to accompany patient: Copies of Medication Administration Records and IV sheets for past 10 days. Plan: Parking Manager will be available to the patient and CRC for further assistance. Patient will be discharged to: [place] [id number] Tiffany Emigdio [place] Parking Manager Maria Garcia - 08/03/2015 12:03 PM EST HYPERTENSION/ NEPHROLOGY CONSULT PATIENT: Chan Hurst : 1950 REASON FOR CONSULTATION: worsening of creat referred by Dr. Caal ID: 64 y.o. female with DM, HTN PVD, LLE bypass surgeries including SFA to peroneal bypass admitted with wet gangrene of her left lower extremity. Is s/p BKA of left LE. S:Pt seen in her room feeling much better Trying to eat MEDICATIONS: ??? DAPTOmycin 6 mg/kg/dose Intravenous Q24H ??? insulin aspart 1-4 Units Subcutaneous Q4H ??? heparin (porcine) 5,000 Units Subcutaneous 2 times per day ??? gabapentin 600 mg Oral BID ??? polyethylene glycol (MIRALAX)oral powder 17 g Oral BID ??? senna-docusate 1 tablet Oral BID ??? aspirin 81 mg Oral Daily ??? meTOPROLOL succinate 25 mg Oral Daily ??? sertraline 50 mg Oral Daily ??? simvastatin 20 mg Oral Nightly PHYSICAL EXAM: Last value Range last 24 hrs Temperature Temp: 36.6 ??C (97.9 ??F) Temp: [36.5 ??C (97.7 ??F)-37 ??C (98.6 ??F)] Heart Rate Heart Rate: 95 Heart Rate: [81-95] Blood Pressure BP: (!) 162/94 mmHg BP: (141-166)/(63-94) Respiratory Rate Resp: 18 Resp: [16-18] SpO2 SpO2: 93 % SpO2: [89 %-93 %] Appearance - Alert, Comfortable. Skin - No exanthem. HEENT - Sclera white. Mucous membranes moist. Chest: Lungs clear to ausculatation w/o wheezes/ rhonchi/ crackles. Heart - S1 and S2 clear w/o murmur, gallop, or rub. JVP not elevated. Abd - Soft. + BS. No bruit. Non tender. Ext - Warm. No cyanosis. + dependent edema over Rt LE. Left has KA Neuro - No asterixis. STUDIES: Labs: CBC: Recent Labs 08/03/15 0440 08/02/15 0505 08/01/15 0439 WBC 11.7* 12.1* 16.1* HGB 8.8* 7.4* 7.8* PLATELET 407* 355 337 Chemistry: Recent Labs 08/03/15 0440 08/02/15 0505 08/01/15 0439 NA 139 139 138 K 4.1 3.9 3.6 CL 101 105 102 CO2 25 26 25 BUN 20* 22* 22* CREATININE 1.31* 1.21* 1.34* GLUCOSE 152 173 193 Recent Labs 08/03/15 0440 08/02/15 0505 08/01/15 0439 CALCIUM 8.0* 7.8* 7.8* LFT's: Recent Labs 07/28/15 0737 BILITOT 0.3 BILIDIR 0.1 ALBUMIN 2.3* ALKPHOS 184* ALT 6 AST 11 UA: ph 5 SG 1020 Glucose + no prot or leucocytes Uric acid crystals on microscopy IMPRESSION/ RECOMMENDATIONS: 64 yo lady with no known renal Hx admitted for wet gangrene of her left lower extremity is s/p BKA. We are consulted for worsening of kidney function. acute on CKD could be a combination of multiple factors vanco toxicity vs AIN, low BP episodes during surgery with ATN/lisinopril and metformin which could have contributed Urine out put > 1L shaker washer clearance ~ 29 by 24 hr collection Please dose all her meds for GFR ~ 20 Volume status stable over all Will be followed in renal clinic upon discharge, please set up follow up in clinic 2-3 weeks with labs in renal clinic Thanks for letting us participate in the care of this patient. Seen and Discussed w/ Dr. Ignacio Hernandez MD Nephrology Fellow Pager # [phone] Associated attestation - Karen Pierre MD - 08/03/2015 2:06 PM EST The patient was seen and examined with the nephrology fellow. Please see the nephrology fellow's note from today for details. I have reviewed the fellow's note and agree with the exam, assessment, and plan. Patient feeling much better. Kidney function is stable. Please note that creatinine clearance is 30 by measurement, rather than 40 as calculated by MDRD. Medications should be dosed accordingly. Will sign off. Discharge anticipated today. Should that not occur, and there are additional questions, please let us know. Kerri Stephenson RN - 08/03/2015 9:02 AM EST Office of Case Mangement (OCM) 08/01/2015 [facility] reviewed -- CM attempted visit with patient at 4W bedside unsuccessful - sister at bedside who reports patient is off the floor to xray - reportedly patient lives at home with boyfriend who works and will not be able to assist in care giving at this point - hopeful to rehab at facility -- CM role introduced / agreeable to attempt visit later this date 1430-- bedside RN paged CM to visit bedside patient and her sister - CM role and purpose discussed -recommendations from therapy to d/c to SNF for strengthening prior to d/c home is agreeable - selection process discussed - sister is quite insistant to d/c to [facility] swing but is agreeable to selection of three - will request TCT by Parking Manager to [facility] to ascertain bed option as did not appear of [facility] list of facilities - [facility] -- transportation will still be determined 08/02/2015 -- Jaime Pulliam, live in friend for 20+ years, consulted with CM - expressed concern of the need for POA for - wishes to complete POA / living will at bedside this date -- STONE B[employer]ER consulted and agreeable to meet with patient and Jaime this date -- also verbalized concern with SNF selection as wishes patient to be in swing bed 1st choice - agreeable to make 1st choice awareness to facilities selected to include [place] - CM consulted with Orlin Aris and Jaime at bedside to confirm with patient who makes her wishes known in selection to confer swing bed rehab to be 1st choice - Parking Manager made aware to communicate to facilities - CM consulted with PT who visited with patient this date who does feel patient may benefit with acute rehab - CM discussed with patient and Jaime acute rehab options - with much discussion Aris and Jaime are agreeable to keep referrals to SNF /swing bed level rehab - will make patient wishes known to swing bed 1st choice via Parking Manager - [id number] -- received/answered page as Jaime requested to discuss his desire to be 1st contact in decisions moving forward - this is agreeable encouraged to inform nurses at desk this night and this CM will made designated in demographics in am as I have left office for the day - agreeable 08/03/2015 -- [id number] - email sent to PAAS to update the above request -- Vasc Surg consulted medicallycleared for d/c today - [facility] accepted patient / will need to verify Dapto / PICC placement today at [facility] via Parking Manager -- bed accepted by POA and patient - PICC scheduled for prior to 1pm - NPWT being changed currently - discussed with patient and POA of transport via ambulance unsure amountcovered by insurance to expect billing at later time - verbalized understanding and agreeable - waiting for time for ambulance arrival - CM alerted by Parking Manager NO ambulance scheduled until PICC is placed acknowledged time to leave NO later than 1400 - Dr. Pond aware - 1200 CM notified ofambulance tentatively scheduled for 1330 - bedside RN will notify CM with PICC placement confirmed -BCBS has approved 1wk - to start 08/08 / recommendations to continue BCBS to assure continued coverage / should re apply [facility] for financial assistance / consider [facility] - Jaime Pulliam, POA/friend updatedof insurance communications - verbalized understanding - 1300 - CM alerted to DNR status of this patient requesting portable DNR - with researching eDH noted to have advance directives that indicate she DOES want CPR / breathing machine / antibiotics / feeding tube -- discussed with patient who has DNR bracelet on / eDH indicates DNR / patient verbalizes she wants to remain DNR / verbalizes that is NOT what her advance directive indicate - Dr. Mariano Pond updated of controversial advance directives and patient verbalization - STONE BANKER consulted to determine [facility] processes with portable DNR for ambulance transport - Dr. Pond discussed with patient her desires - DNR stands and portable DNR prepared and signed by patient CM available Kerri Stephenson RN CCM #[id number] Debi Dubon OT - 08/02/2015 4:25 PM EST Occupational Therapy Treatment Note Visit #: 3 Patient profile:?? Chan Hurst is a 64 y.o.?? female patient of Elicia Rivera, *, admitted on 07/23/2015 with wet gangrene of the left lower extremity. ? 1-17-16: OR Procedure(s): 1. Left below-knee guillotine amputation 2. Incision and drainage of multiple LLE abscesses 3. Left common femoral artery exposure, debridement and repair with bovine pericardial patch. 4. Ligation and removal of thrombosed, infected left CLIENT SERVICES ASSOCIATE-PT PTFE bypass graft. ?? 5. Placement of wound vac. 07-27-15 OR procedure(s): 1. Left groin excisional debridement using Metzenbaum scissors. 2. Irrigation of excised LLE bypass tunnel. 3. Left Sartorious flap coverage of patched femoral artery. 4. Left groin wound vac placement. Taken back to surgery: 07/29/15 OR Procedure(s): 1. Left AKA. 2. Left groin wound vac change. Code Status: DNR/DNI? Activity Orders: as tolerated Precautions:?? wound vac, L AKA, slide board transfers to patient's right side.?? Fall Interval History: received 1U PRBCs am SUBJECTIVE: I'm nervous about everything O: Patient seen for therapeutic activities and demonstrated the following: ?? Mod assist supine to sit to the right with HOB elevated ?? Sat EOB for 10 minutes for functional activities reaching outside base of support with supervision, combing hair ?? Mod assist x2 sit to stand with walker, right foot blocked, cues to straighten/lock arms ?? Mod assist x1, CG x1 stand pivot to recliner with walker. Cues to continue to stand straight, as pt has tendency to get shorter with activity Pain: phantom pain, mid back pain most likely from being in bed Education: safety, positioning, balance, goals of rehab after hospital discharge Staff Communication: Patient status, treatment, and mobility recommendations discussed with nursing/other staff. ASSESSMENT: Pt was consistently the most alert this session compared to previous sessions. Appeared less guarded with L residual limb. Will benefit from structured rehab setting at discharge. Pt will benefit from ongoing therapeutic interventions to achieve pt's and therapy goals Discharge Recommendations: Pt would benefit from structured rehab setting Equipment Recommendations: TBD at rehab Daily schedule / Staff Recommendations: encourage participation in self care activities, stand pivottransfers to recliner ?? Goals: To be achieved by 08/07/15 ?? Pt will sit EOB for 10 minutes for functional activities with set up, superversion ?? Pt will be min assist with slide board transfers to recliner and bariatric commode ?? Pt will be indep for UE ADLs ?? Pt will be min assist with walker sit to stand from bed ?? Pt will be min assist with walker stand pivot transfers to commode and recliner Plan: Pt to be seen 3-4 x per week for therapy including Transfers, Assistive device/technique, ADL,Positioning, Safety, Precautions/Protocol, Activity pacing/Energy conservation, Balance, Recommendations and Discharge planning Eval Date: 07/31/2015 Total time spent with patient: 20 minutes Total timed interventions: 20 minutes for functional ther ex Pager: [phone] DEBI DUBON OT Occupational Therapy Rehabilitation Department PhilhannahMaria - 08/02/2015 4:03 PM EST HYPERTENSION/ NEPHROLOGY CONSULT PATIENT: Chan Hurst : 1950 REASON FOR CONSULTATION: worsening of creat referred by Dr. Caal ID: 64 y.o. female with DM, HTN PVD, LLE bypass surgeries including SFA to peroneal bypass admitted with wet gangrene of her left lower extremity. Is s/p BKA of left LE. S:Pt seen in her room feeling much better Trying to eat MEDICATIONS: ??? DAPTOmycin 6 mg/kg/dose Intravenous Q24H ??? insulin aspart 1-4 Units Subcutaneous Q4H ??? heparin (porcine) 5,000 Units Subcutaneous 2 times per day ??? gabapentin 600 mg Oral BID ??? polyethylene glycol (MIRALAX)oral powder 17 g Oral BID ??? senna-docusate 1 tablet Oral BID ??? aspirin 81 mg Oral Daily ??? meTOPROLOL succinate 25 mg Oral Daily ??? sertraline 50 mg Oral Daily ??? simvastatin 20 mg Oral Nightly PHYSICAL EXAM: Last value Range last 24 hrs Temperature Temp: 36.7 ??C (98.1 ??F) Temp: [36.6 ??C (97.9 ??F)-37.3 ??C (99.1 ??F)] Heart Rate Heart Rate: 79 Heart Rate: [77-90] Blood Pressure BP: 153/80 mmHg BP: (128-155)/(64-89) Respiratory Rate Resp: 18 Resp: [18-20] SpO2 SpO2: 93 % SpO2: [92 %-96 %] Appearance - Alert, Comfortable. Skin - No exanthem. HEENT - Sclera white. Mucous membranes moist. Chest: Lungs clear to ausculatation w/o wheezes/ rhonchi/ crackles. Heart - S1 and S2 clear w/o murmur, gallop, or rub. JVP not elevated. Abd - Soft. + BS. No bruit. Non tender. Ext - Warm. No cyanosis. + dependent edema over Rt LE. Left has KA Neuro - No asterixis. STUDIES: Labs: CBC: Recent Labs 08/02/15 0505 08/01/15 0439 07/31/15 0729 WBC 12.1* 16.1* 21.4* HGB 7.4* 7.8* 8.8* PLATELET 355 337 370 Chemistry: Recent Labs 08/02/15 0505 08/01/15 0439 07/31/15 0729 NA 139 138 137 K 3.9 3.6 3.9 CL 105 102 101 CO2 26 25 23 BUN 22* 22* 21* CREATININE 1.21* 1.34* 1.38* GLUCOSE 173 193 215* Recent Labs 08/02/15 0505 08/01/15 0439 07/31/15 0729 CALCIUM 7.8* 7.8* 7.9* LFT's: Recent Labs 07/28/15 0737 BILITOT 0.3 BILIDIR 0.1 ALBUMIN 2.3* ALKPHOS 184* ALT 6 AST 11 UA: ph 5 SG 1020 Glucose + no prot or leucocytes Uric acid crystals on microscopy IMPRESSION/ RECOMMENDATIONS: 64 yo lady with no known renal Hx admitted for wet gangrene of her left lower extremity is s/p BKA. We are consulted for worsening of kidney function. acute on CKD could be a combination of multiple factors vanco toxicity vs AIN, low BP episodes during surgery with ATN/lisinopril and metformin which could have contributed Urine out put > 1L yesterday shaker washer clearance measurement in progress, cystatin C in process Will re assess this data tomorrow Please dose all her meds for GFR ~ 15 or less Volume status stable over all Will be followed in renal clinic upon discharge Thanks for letting us participate in the care of this patient. Seen and Discussed w/ . Ignacio Hernandez MD Nephrology Fellow Pager # [phone] Associated attestation - Karen Pierre MD - 08/02/2015 4:14 PM EST The patient was seen and examined with the nephrology fellow. Please see the nephrology fellow's note from today for details. I have reviewed the fellow's note and agree with the exam, assessment, and plan. 24-hour urine for creatinine clearance demonstrates early CKD IV. Pleaes dose medications accordingly. A little bit of downward trend in creatinine, which could represent further improvement or variation around a mean. Will be better able to assess over time. CREATININE (mg/dL) Date Value 08/02/2015 1.21* 08/01/2015 1.34* 07/31/2015 1.38* 07/30/2015 1.73* 07/29/2015 1.87* 07/28/2015 1.85* 07/27/2015 1.68* 07/26/2015 1.67* 07/26/2015 1.45* 07/25/2015 0.91 Dariusz Pedraza, PT - 08/02/2015 3:17 PM EST Physical Therapy Treatment Note Visit # 3 Patient Dx: 64 y.o. 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 Patient developed claudication in October 2014, this quickly progressed to rest pain. She underwent SFA to peroneal bypass with vein in 03-18-15. On 05-19-15 this bypass graft was noted to be occluded and her rest pain was persistent. She then underwent a second LLE bypass CLIENT SERVICES ASSOCIATE to PT with PTFE, on 05-26. This was found to be occluded on 06-01. Since that time the patient has had progressive worsening of her medial/distal surgical incision that has failed to heal. Procedures: 07/24: LLE guillotine amp, removal PTFE graft, wound vac, bovine patch CLIENT SERVICES ASSOCIATE 07/27: Wound vac change, sartorious flap coverate for patched femoral artery 07/29: Left AKA and vac change Precautions/Special Considerations: NWB L LE, fall risk, garnica, wound vac at BKA incision Interval History: uneventful since last PT session S: feels nervous about everything, appropriate questions about what to expect at rehab O: Pt demonstrated the following ?? Pt moved supine to sit with mod assist ?? Sitting EOB with cues and standby supervision. ?? Demonstrated active exercises R LE and hip abd/add L side. ?? Education: Positioning to maintain hip extension including lying flat at times versus always sitting or reclinced, expected progression of mobility as she awaits appropriateness for starting prosthetic training, safety, sitting balance ?? Stand at walker with mod assist, cues, reassurance ?? Shuffles stepped to chair, essentially turning 90 degrees, to chair, and manual assist to reach to chair ?? Cues and min assist to adjust seated position in chair, footstool provided given her short stature Pain: says having foot pain otherwise minimal pain Education: Education topics included see above. Pt verbalized/demonstrated understanding. Staff Communication: Patient status, treatment, and mobility recommendations discussed with nursing/other staff. A: Pt tolerated PT well. Presents with anxiety about mobility, decreased activity tolerance, functional mobility and ambulation status. Pt will benefit from ongoing therapeutic interventions to achievept's and therapy goals. Recommend a rehabilitative setting at d/c Physical Therapy Goals: 1. Pt. to demonstrate knowledge of precautions & safety during functional activities, call for assist prior to moving. 2. Pt. to demonstrate understanding of appropriate exercises including prevent of L hip contracture (AKA). 3. Pt. to perform bed mobility with min assist x 1 4. Pt maintain sitting balance on her own, supervised. 5. Pt. to perform sit > stand from EOB to walker with min A x 1 and stand for at least 2 min. 6. Pt perform slide board transfer's with 1 person assist. 7. Pt propel w/c (I) 50' with arms.? 8. Pt. to wt shift or hop or pivot on R LE holding walker to transfer bed >< chair w/ min A x 2. P: Cont per physical therapy plan of care. Total time spent with patient: 30 minutes Total timed interventions: 30 minutes for functional mobility Pager: [phone] Dariusz Pedraza PT Physical Therapy Rehabilitation Department Tejas Beltran MSW - 08/02/2015 3:04 PM EST Assisted patient in completing her VT Advance Directives. Please see copies of these documents in eDH. Mariano Miramontes MD - 08/02/2015 1:52 PM EST INPATIENT DAILY PROGRESS NOTE Patient Name: Chan Hurst Patient Age: 64 y.o. Birthdate: 1950 Admit date: 07/23/2015 Attending Physician: Elicia Caal, * ID: Chan Hurst is a 64 y.o. 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 Patient developed claudication in October 2014, this quickly progressed to rest pain. She underwent SFA to peroneal bypass with vein in 03-18-15. On 05-19-15 this bypass graft was noted to be occluded and her rest pain was persistent. She then underwent a second LLE bypass CLIENT SERVICES ASSOCIATE to PT with PTFE, on 05-26. This was found to be occluded on 06-01. Since that time the patient has had progressive worsening of her medial/distal surgical incision that has failed to heal. Procedures: 07/24: LLE guillotine amp, removal PTFE graft, wound vac, bovine patch CLIENT SERVICES ASSOCIATE 07/27: Wound vac change, sartorious flap coverate for patched femoral artery 07/29: Left AKA and vac change Recent events/symptoms: Patient has been stable with good pain control. Over the weekend she did have diarrhea which was c-diff negtive O: Last value Range last 24hrs Temperature Temp: 36.7 ??C (98.1 ??F) Temp: [36.6 ??C (97.9 ??F)-37.3 ??C (99.1 ??F)] Heart Rate Heart Rate: 79 Heart Rate: [77-90] Blood Pressure BP: 153/80 mmHg BP: (128-155)/(64-89) Respiratory Rate Resp: 18 Resp: [18-20] SpO2 SpO2: 93 % SpO2: [92 %-96 %] 08/01 07 - 08/02 0700 In: 540 [P.O.:540] Out: 1250 [Urine:1250] High Protein - High Calorie diet Physical Exam: General: NAD, A&Ox3, resting in bed, cooperative HEENT: NC/AT CVS: regular rate Pulm: breathing comfortably LLE: left groin vac with good suction. AKA dressing clean and dry. Neuro: Grossly intact, nonfocal, moving all four extremities spontaneously. Recent Labs 08/02/15 0505 08/01/15 0439 07/31/15 0729 WBC 12.1* 16.1* 21.4* HGB 7.4* 7.8* 8.8* HCT 23.5* 23.7* 26.6* PLATELET 355 337 370 Recent Labs 08/02/15 0505 08/01/15 0439 07/31/15 0729 NA 139 138 137 K 3.9 3.6 3.9 CL 105 102 101 CO2 26 25 23 BUN 22* 22* 21* CREATININE 1.21* 1.34* 1.38* GLUCOSE 173 193 215* CALCIUM 7.8* 7.8* 7.9* Urine Culture: NGTD Wound culture: MRSA ASSESSMENT: Chan Hurst is a 64 y.o. female POD #9 s/p guillotine amputation LLE with removal of thrombosed/infected L CLIENT SERVICES ASSOCIATE-PT PTFE bypass graft, and debridement of L CLIENT SERVICES ASSOCIATE artery with repair of bovine pericardial patch POD#6 from sartorious flap coverage of exposed CLIENT SERVICES ASSOCIATE, POD #4 s/p L AKA. Patient continues to improve clinically. Her WBC is trending down as is her Cr. Will continue to avoid Vanc due to previous high trough and PANDA. I talked with ID concerning Daptomycin duration as it isour opinion that she may require longer than [address] Felipe is in agreement. May have change in abx due to cost of Daptomycin and rehab/SNF reluctant to pay for it. Will await their recommendations. Continue Daptomycin for now. PLAN 08/02: 1. Daptomycin increased to q24h due to improvement in GFR. 2. Hemoglobin 7.8-->7.4 this AM. 1U PRBCs. 3. PT/OT to see, begin dispo planning. Likely will need SNF. Mariano Miramontes MD Pager [phone] Amita Carnes LD - 08/02/2015 1:33 PM EST Nutrition Follow-up Note: S: Per pt: Feels well but wondering about how a high protein, high calorie diet is with her diabetes Appetite: Fine per pt - 25-50% intake doc by nursing Chewing/Swallowing: No issues reported N/V: None reported at time of encounter Bowels: Last BM 08/01 O: Patient Active Problem List Diagnosis Code ??? Claudication I73.9 ??? Non-healing ulcer of foot L97.509 ??? DMII (diabetes mellitus, type 2) E11.9 ??? Hypercholesterolemia E78.0 ??? Hypertension I10 ??? PAD (peripheral artery disease) I73.9 ??? HLD (hyperlipidemia) E78.5 ??? Critical lower limb ischemia I99.8 Past Medical History Diagnosis Date ??? HTN (hypertension) ??? DM (diabetes mellitus) metformin ??? Hypercholesterolemia ??? PVD (peripheral vascular disease) ??? HLD (hyperlipidemia) 03/24/2015 Diet: High Calorie, High Protein Admit Weight: 52.7 kg Estimated body mass index is 25.4 kg/(m^2) as calculated from the following: Height as of this encounter: 152.4 cm (5'). Weight as of this encounter: 59 kg (130 lb 1.1 oz). Labs: Lab Results Component Value Date NA 139 08/02/2015 K 3.9 08/02/2015 CL 105 08/02/2015 CO2 26 08/02/2015 BUN 22* 08/02/2015 CREATININE 1.21* 08/02/2015 GLUCOSE 173 08/02/2015 CALCIUM 7.8* 08/02/2015 AST 11 07/28/2015 ALT 6 07/28/2015 ALKPHOS 184* 07/28/2015 BILITOT 0.3 07/28/2015 BILIDIR 0.1 07/28/2015 Medications: novolog, miralax, pericolace, others noted A: Pt seen for nutrition follow-up. Pt reports appetite is good. Pt asking about how her diabetes and current diet work together. Provided pt with high protein list and discussed high protein foods with and without carbohydrates. Discussed the possibility that a carbohydrate restriction might be addedto assist with BG control, pt verbalized understanding. Discussed adding on non-carbohydrate/low carbohydrate containing proteins to fill up on if restriction is met. Discussed snack preferences and have added choices to between meal snacks. Provided Choose Your Foods diabetes educational handout and discussed its contents. Pt had no further nutrition related questions or concerns. Provided contact information. Encouraged pt to contact Food and Nutrition services with any questions that may arise. P: Recommend CHO3 diet guidelines to better control BG Encourage high protein:lower carb foods Have added high protein snacks per pt preferences - will continue Boost Glucose Control supplementsBID Please keep BG under 180 so that nutrition is no wasted Nutrition to follow throughout hospital stay DAPHNEY TITUS Pager [phone] Hoa Felipe MD - 08/02/2015 1:23 PM EST Infectious Disease Progress Note # Infected left common femoral PFTE graft s/p excision 07/24/15 (MRSA); new bovine patch pericardial graft with sartorious flap coverage # LLE ischemia, gangrene s/p BKA revised to AKA 07/29/15 # H/o PANDA on Vancomycin NKDA Current antimicrobials: Daptomycin IV 415 mg (7 mg/kg) IV q 48 h S: Pt is nearing discharge. Still has vac dressing left groin with deep wound. PE: Filed Vitals: 08/02/15 1200 BP: 153/80 Pulse: 79 Temp: 36.7 ??C (98.1 ??F) Resp: 18 Pale frail woman up in bed Groin vac Left AKA wound not undressed Data: Lab Results Component Value Date WBC 12.1* 08/02/2015 HGB 7.4* 08/02/2015 HCT 23.5* 08/02/2015 MCV 92.5 08/02/2015 PLATELET 355 08/02/2015 Lab Results Component Value Date CREATININE 1.21* 08/02/2015 Lab Results Component Value Date ALT 6 07/28/2015 AST 11 07/28/2015 ALKPHOS 184* 07/28/2015 BILITOT 0.3 07/28/2015 Left groin aspiration 07/28: Results: Body Fluid Culture, Aerobic & Anaerobic Other Status: Final result 07/28/2015 ??2:37 PM ?? Procedure Abnormality Status ? Body fluid culture Abnormal Final result ? Anaerobic Culture Final result ? Component Results ? Component Value ? Body Fluid Culture (Abnormal) Rare Staphylococcus aureus, MRSA ? Gram Stain (Abnormal) Few White Blood Cells seen Rare Gram Positive Cocci in clusters seen ? Specimen Source Information ? Specimen Type: Other ? LEFT GROIN ASPIRATION. ? Susceptibility ? Staphylococcus aureus, mrsa ? MICROSCAN METHOD ? Amoxicillin + Clavulanate Resistant ? Ampicillin Resistant ? Ampicillin + Sulbactam Resistant ? Cefazolin Resistant ? Ceftriaxone Resistant ? Ciprofloxacin Sensitive ? Clindamycin Sensitive ? Daptomycin 0.5 Sensitive ? Erythromycin Resistant ? Gentamicin Sensitive 1 ? Levofloxacin Sensitive ? Linezolid Sensitive ? Oxacillin Resistant 2 ? Penicillin Resistant ? Tetracycline Sensitive ? Trimethoprim/Sulfa Sensitive ? Vancomycin Sensitive ? 1 Gentamicin is not appropriate for [place]-therapy. ? 2 MRSA, Note Nafcillin Resistance Impression: Reviewed operative reports and literature re duration of antibiotic therapy following bovine patch graft in infected field. While there is no randomized trial data, duration of antibiotic therapy following this procedure is often prolonged. In one trial (Andrew LEON et al J Vasc Surg 2012; 55(6):1712), 83% of patients were treated for 4 weeks or more by vein, although 16% were switched to oral therapy after two weeks of IV. Recommendations: 1) Estimated CrCl is improving over the last several days. Daptomycin dose should be increased to 6 mg/kg IV q 24h. 2) Complete a minimum of 4 weeks of IV or equivalent MRSA therapy (07/24-08/21). This could either be daptomycin IV or could transition to oral linezolid 600 mg po bid (if SSRI d/c or dose dropped -- would require close f/u of CBC since already anemic). 2) Doxycycline 100 mg PO bid could be used for weeks 4-6 post-op. 3) SNF transfer is anticipated. Await updated input from the [employer] re options. Discussed with Dr. Miramontes. ID Consult service will continue to follow the patient x ID Consult service will sign off. Please call us back if further assistance is needed. 35'; >50% in care coordination Krishna Felipe MD Pager [phone] Debi Dubon, OT - 08/01/2015 4:52 PM EST Occupational Therapy Treatment Note Visit #: 2 Patient profile:?? Chan Hurst is a 64 y.o.?? female patient of Dr. Caal, Elicia Uriarte, *, admitted on 07/23/2015 with wet gangrene of the left lower extremity. ? 07-24-15: OR Procedure(s): 1. Left below-knee guillotine amputation 2. Incision and drainage of multiple LLE abscesses 3. Left common femoral artery exposure, debridement and repair with bovine pericardial patch. 4. Ligation and removal of thrombosed, infected left CLIENT SERVICES ASSOCIATE-PT PTFE bypass graft. ?? 5. Placement of wound vac. 07-27-15 OR procedure(s): 1. Left groin excisional debridement using Metzenbaum scissors. 2. Irrigation of excised LLE bypass tunnel. 3. Left Sartorious flap coverage of patched femoral artery. 4. Left groin wound vac placement. Taken back to surgery: 07/29/15 OR Procedure(s): 1. Left AKA. 2. Left groin wound vac change. Code Status: DNR/DNI? Activity Orders: as tolerated Precautions: wound vac, L AKA, slide board transfers to patient's right side.?? Fall Interval History: negative for C-diff, precautions lifted. SUBJECTIVE: I used the commode earlier with nursing. It was hard, we were all panting O: Patient seen for therapeutic activities with PT and demonstrated the following: ?? Supine to sit with HOB elevated to the left, mod assist x2. Pt able to initiate moving RLE today.Requires mod-max cues for technique/sequencing. ?? Mod assist to position hips EOB pt then able to complete the task. Good sitting balance. ?? Min assist x2 with walker, foot clocked, sit to stand from bed. With cues to lock elbows stood straight. ?? Mod assist x2 with walker stand pivot to the commode, with step by step cueing. Pt tends to want to sit too early (before properly positioned). ?? Min assist x2 sit to stand from commode, foot blocked, cues for technique. Pt stood while OUTBOARD MOTOR MECHANIC performed caty care. ?? Mod assist x2 stand pivot back to bed ?? Pt stood from EOB with min assist x2 and walker, pivoted 3-4 steps closer to HOB, then sat. ?? Supervision with extra time sit to supine. With cues, able to use BUEs on bed rail, R foot for leverage, to scoot up in bed. Pain: Start of session: phantom pain in L foot/ankle. c/o of chest pressure mid sternal area after transferring onto commode, nursing notified. Tends to be very guarded with L residual limb. Education: safety, balance Staff Communication: Patient status, treatment, and mobility recommendations discussed with nursing/other staff. ASSESSMENT: Pt able to stand pivot to/from commode today with mod assist x2. Pt appears to do best with step by step cuing with all activities. Is very guarded with L residual limb, requires max cues/encouragement to straighten knee so as not to become flexed at the hip. Pt will benefit from ongoing therapeutic interventions to achieve pt's and therapy goals Discharge Recommendations: Pt would benefit from structured rehab setting at discharge Equipment Recommendations: TBD at rehab. Anticipate wheelchair, drop arm commode, tub transfer bench Daily schedule / Staff Recommendations: encourage participation in self-care activities. Occupational Therapy Goals: Goals: To be achieved by 08/07/15 ?? Pt will sit EOB for 10 minutes for functional activities with set up, superversion ?? Pt will be min assist with slide board transfers to recliner and bariatric commode ?? Pt will be indep for UE ADLs ?? Pt will be min assist with walker sit to stand from bed ?? Pt will be min assist with walker stand pivot transfers to commode and recliner Plan: Pt to be seen 3-4 x per week for therapy including Transfers, Assistive device/technique, ADL,Positioning, Safety, Precautions/Protocol, Activity pacing/Energy conservation, Balance, Recommendations and Discharge planning Eval Date: 07/31/2015 Total time spent with patient: 58 minutes with PT Total timed interventions: 26 minutes for functional there ex Pager: [phone] DEBI DUBON OT Occupational Therapy Rehabilitation Department Anabel Vela, PT - 08/01/2015 4:37 PM EST Physical Therapy Note Visit #2 Patient profile:?? Pt. is a 64 y.o. female admitted on 07/23/[address] Caal, Elicia Uriarte, * intransfer from OS for Vascular service consult who presents now with wet gangrene of the left lower extremity. ? 07-24-15: OR Procedure(s): 1. Left below-knee guillotine amputation 2. Incision and drainage of multiple LLE abscesses 3. Left common femoral artery exposure, debridement and repair with bovine pericardial patch. 4. Ligation and removal of thrombosed, infected left CLIENT SERVICES ASSOCIATE-PT PTFE bypass graft. ?? 5. Placement of wound vac. 07-27-15 OR procedure(s): 1. Left groin excisional debridement using Metzenbaum scissors. 2. Irrigation of excised LLE bypass tunnel. 3. Left Sartorious flap coverage of patched femoral artery. 4. Left groin wound vac placement. Taken back to surgery: 07/29/15 OR Procedure(s): 1. Left AKA. 2. Left groin wound vac change. Of note, she was growing MRSA and pseudomonas from the wound at the OSH, she has been on ceftazidineand vancomycin. Recent History: ?? October 2014 claudication, this quickly progressed to rest pain. She underwent SFA to peroneal bypass with vein in 03-18-15. On 05-19-15 this bypass graft was noted to be occluded and her rest pain was persistent. She then underwent a second LLE bypass CLIENT SERVICES ASSOCIATE to PT with PTFE, on 05-26. This was found to be occluded on 06-01. Since that time the patient has had progressive worsening of her medial/distal surgical incision that has failed to heal. With no additional revasc options she was offered opportunityto enrol in stemcell trial, but declined. 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 On 07-20-15 she present to [facility] with SIRS physiology, felt to be related to her leg wound. She declined transfer to [facility] for amputation at that time and was admitted and started on antibiotics. Today, she has resigned to transfer for further care of her leg wound. Social History: Patient lives in [place], [place].?? Lives with boyfriend.?? Boyfriend works so she's home alone. Baseline Mobility: decreased activity tolerance but managing on her own in day hours while boyfriendworking. Boyfriend states his home is a small [employer] style re-done outside and his mother needed a ramp so he had deck rebuilt and ramp re-built. Precautions/Special Considerations: DNR code status; activity as tolerated per MD orders. Subjective: Earlier I got up with the nurses and we were all panting by the end and I almost didn'tmake the move. Objective: Pt received in supine, agreeable to rx. Sister in visiting ?? Patient off unit earlier for x-rays ?? Pain: intermittent spasms L LE; phantom pains L ankle/foot ?? Bed mobility: HOB up, moved to L side, trying to perform a sit-up (her choice) but required Mod assist x 2 ?? Balance:?? mod assist for balance while trying to move closer to edge, once on edge and R foot reached floor then close supervision and she held bed railing w/ L hand. ?? Bed to Commode: Pt interested in standing with walker, Sit > stand with min A x 2 and blockingR foot from sliding up to walker, then she worked on pivoting on R foot with reminder's to keep armslocked (she tends to go into flexed posture), mod A x 2 for pivot transfer. She tends to want to sittoo early and needed help with the last swivel to clear hips over commode armrest. ?? Transfer: Sit > stand from commode with min A x 2. Commode > bed with walker and mod A x 2.She stood in place a few minutes while RN performed hygiene/loose stool. She was exhausted after standing then pivoting. ?? Returned to bed with cues to lean to her side and she was able to bring R LE in. ?? Cues to perform Bridging activity, R LE flexed and pushing on R LE to lift bottom, weak but able to begin activity. ?? Still needed 2 assist to lift higher towards bed, she helped by reaching to bedrails and pushing with R LE. ?? Performed L LE exercises once supine as she tends to hold L residual limb with hands in flexed position, educated not to place blanket/pillow under end of L LE to avoid flexion contractures. ?? She was able to perform SLR, hip ext down against bed, Quad set, hip Abd/Add in supine and hip rotation supine. ?? Sister present and discussing footwear for R foot, she has slipper here but it slides on floor, sister to bring in other footwear from home for patient on her next visit. ?? Needs within reach. RN entered room, patient asking for tylenol. I asked RN if team has taken down residual limb dressing and want stump-wrapping around pelvis as current wrap distally falling off her L LE, RN to check with team as she has groin wound with VAC dressing. ?? Vital Signs: Sp02: 99% on RA HR: 72 Education: practiced exercises & discussed positioning of L LE to facilitate max ROM and preventcontracture Assessment: Hospital day #8 for L LE ischemia and gangrene requiring 3 surgeries last week ending with L AKA. Pt presents to PT with significant impairments in strength, balance, endurance and functional mobility 2' baseline deconditioning & now new amputation. Patient worked up until Mar but had a prolonged course of illness with steady decline since. Pt is a motivated, always agreeable to participate in therapy, and is showing steady gains. Pt will benefit from ongoing skilled rx to facilitate max functional gains and return to functional independence. Goals: To be achieved by 08-07-15. ? 1. Pt. to demonstrate knowledge of precautions & safety during functional activities, call for assist prior to moving. 2. Pt. to demonstrate understanding of appropriate exercises including prevent of L hip contracture (AKA). 3. Pt. to perform bed mobility with min assist x 1 4. Pt maintain sitting balance on her own, supervised. 5. Pt. to perform sit > stand from EOB to walker with min A x 1 and stand for at least 2 min. 6. Pt perform slide board transfer's with 1 person assist. 7. Pt propel w/c (I) 50' with arms.? 8. Pt. to wt shift or hop or pivot on R LE holding walker to transfer bed >< chair w/ min A x 2. Plan: Pt to be seen 2-5 times per week for therapy including Bed mobility, Transfers, Exercise, Positioning, Safety , Balance and Discharge planning.?? Patient agrees with plan as stated above. ?? Equipment needs: Rolling walker, Wheelchair and possibly slide board @ present. Discharge Recommendations: Pt will require ongoing inpatient rehabilitation upon hospital d/c in order to achieve independence with functional mobility. Pt is motivated to participate, has home support, and a w/c accessible homesetup Total time spent with patient: 58 minutes Seen in conjunction w/ OT Total timed interventions: 29 minutes ( TE-F x 2) Anabel Vela, PT Pager [phone] Inpatient Physical Therapy Mariano Miramontes MD - 08/01/2015 2:59 PM EST INPATIENT DAILY PROGRESS NOTE Patient Name: Chan Hurst Patient Age: 64 y.o. Birthdate: 1950 Admit date: 07/23/2015 Attending Physician: Elicia Caal, * ID: Chan Hurst is a 64 y.o. 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 Patient developed claudication in October 2014, this quickly progressed to rest pain. She underwent SFA to peroneal bypass with vein in 03-18-15. On 05-19-15 this bypass graft was noted to be occluded and her rest pain was persistent. She then underwent a second LLE bypass CLIENT SERVICES ASSOCIATE to PT with PTFE, on 05-26. This was found to be occluded on 06-01. Since that time the patient has had progressive worsening of her medial/distal surgical incision that has failed to heal. Procedures: 07/24: LLE guillotine amp, removal PTFE graft, wound vac, bovine patch CLIENT SERVICES ASSOCIATE 07/27: Wound vac change, sartorious flap coverate for patched femoral artery 07/29: Left AKA and vac change Recent events/symptoms: Patient has been stable with good pain control. Over the weekend she did have diarrhea which was c-diff negtive O: Last value Range last 24hrs Temperature Temp: 36.7 ??C (98.1 ??F) Temp: [36.7 ??C (98.1 ??F)-37.7 ??C (99.9 ??F)] Heart Rate Heart Rate: 82 Heart Rate: [81-91] Blood Pressure BP: 144/69 mmHg BP: (132-157)/(58-71) Respiratory Rate Resp: 18 Resp: [17-18] SpO2 SpO2: 98 % SpO2: [90 %-98 %] 07/31 07 - 08/01 0700 In: 979.4 [P.O.:717; I.V.:262.4] Out: 1375 [Urine:1275] High Protein - High Calorie diet Physical Exam: General: NAD, A&Ox3, resting in bed, cooperative HEENT: NC/AT CVS: regular rate Pulm: breathing comfortably LLE: left groin vac with good suction. AKA dressing clean and dry. Neuro: Grossly intact, nonfocal, moving all four extremities spontaneously. Recent Labs 08/01/15 0439 07/31/15 0729 07/30/15 0811 WBC 16.1* 21.4* 14.7* HGB 7.8* 8.8* 8.7* HCT 23.7* 26.6* 26.8* PLATELET 337 370 405* Recent Labs 08/01/15 0439 07/31/15 0729 07/30/15 0811 NA 138 137 142 K 3.6 3.9 4.0 CL 102 101 106 CO2 BUN 22* 21* 19* CREATININE 1.34* 1.38* 1.73* GLUCOSE 193 215* 223* CALCIUM 7.8* 7.9* 7.9* Vascular Studies: TCPO2 05/2015 Left ?Transcutaneous Oxygen Saturation (mmHg) ?? Rt Chest ? 67 ?? 10 cm Above Knee ? 31 ?? 15 cm Below Knee ? 33 ?? ForeFoot ? 3 ASSESSMENT: Chan Hurst is a 64 y.o. female POD #8 s/p guillotine amputation LLE with removal of thrombosed/infected L CLIENT SERVICES ASSOCIATE-PT PTFE bypass graft, and debridement of L CLIENT SERVICES ASSOCIATE artery with repair of bovine pericardial patch POD#5 from sartorious flap coverage of exposed CLIENT SERVICES ASSOCIATE, POD #3 s/p L AKA. Improved leukocytosis 21-->16. UA with WBC and small bacteria. NGTD on culture. CXR obtained today appears benign for respiratory cause. Will evaluate the wound with VAC change today. Cr improving with discontinuation of Vanc and time. Will continue to follow. Appreciate reccomendations from nephrology. PLAN 08/01: 1. Daptomycin 2. Encourgae PO intake 3. PT/OT to see, begin dispo planning. Likely will need SNF. Mariano Miramontes MD Pager [phone] DavidHaleyam - 08/01/2015 11:56 AM EST HYPERTENSION/ NEPHROLOGY CONSULT PATIENT: Chan Hurst : 1950 REASON FOR CONSULTATION: worsening of creat referred by Dr. Caal ID: 64 y.o. female with DM, HTN PVD, LLE bypass surgeries including SFA to peroneal bypass admitted with wet gangrene of her left lower extremity. Is s/p BKA of left LE. S:Pt seen in her room feeling ok MEDICATIONS: ??? insulin aspart 1-4 Units Subcutaneous Q4H ??? heparin (porcine) 5,000 Units Subcutaneous 2 times per day ??? gabapentin 600 mg Oral BID ??? polyethylene glycol (MIRALAX)oral powder 17 g Oral BID ??? DAPTOmycin 7 mg/kg/dose Intravenous Q48H ??? senna-docusate 1 tablet Oral BID ??? aspirin 81 mg Oral Daily ??? meTOPROLOL succinate 25 mg Oral Daily ??? sertraline 50 mg Oral Daily ??? simvastatin 20 mg Oral Nightly PHYSICAL EXAM: Last value Range last 24 hrs Temperature Temp: 37.7 ??C (99.9 ??F) Temp: [36.7 ??C (98.1 ??F)-37.7 ??C (99.9 ??F)] Heart Rate Heart Rate: 91 Heart Rate: [81-91] Blood Pressure BP: 132/63 mmHg BP: (132-157)/(58-71) Respiratory Rate Resp: 18 Resp: [17-18] SpO2 SpO2: 92 % SpO2: [90 %-94 %] Appearance - Alert, Comfortable. Skin - No exanthem. HEENT - Sclera white. Mucous membranes moist. Chest: Lungs clear to ausculatation w/o wheezes/ rhonchi/ crackles. Heart - S1 and S2 clear w/o murmur, gallop, or rub. JVP not elevated. Abd - Soft. + BS. No bruit. Non tender. Ext - Warm. No cyanosis. + dependent edema over Rt LE. Left has KA Neuro - No asterixis. STUDIES: Labs: CBC: Recent Labs 08/01/15 04307/31/15 0729 07/30/15 0811 WBC 16.1* 21.4* 14.7* HGB 7.8* 8.8* 8.7* PLATELET 337 370 405* Chemistry: Recent Labs 08/01/15 04307/31/15 0729 07/30/15 0811 NA 138 137 142 K 3.6 3.9 4.0 CL 102 101 106 CO2 23 25 BUN 22* 21* 19* CREATININE 1.34* 1.38* 1.73* GLUCOSE 193 215* 223* Recent Labs 08/01/15 0439 07/31/15 0729 07/30/15 0811 CALCIUM 7.8* 7.9* 7.9* LFT's: Recent Labs 07/28/15 0737 BILITOT 0.3 BILIDIR 0.1 ALBUMIN 2.3* ALKPHOS 184* ALT 6 AST 11 UA: ph 5 SG 1020 Glucose + no prot or leucocytes Uric acid crystals on microscopy IMPRESSION/ RECOMMENDATIONS: 64 yo lady with no known renal Hx admitted for wet gangrene of her left lower extremity is s/p BKA. We are consulted for worsening of kidney function. acute on CKD could be a combination of multiple factors vanco toxicity vs AIN, low BP episodes during surgery with ATN/lisinopril and metformin which could have contributed Urine out put > 1L yesterday. shaker washer stable but would like to do 24 hr creatinine clearance since after BKA, and with her small body weight, serum creatinine alone is not helpful at all Please dose all her meds for GFR ~ 15 or less Volume status stable over all Thanks for letting us participate in the care of this patient. Seen and Discussed w/ Dr. Ignacio Hernandez MD Nephrology Fellow Pager # [phone] Associated attestation - Karen Pierre MD - 08/01/2015 3:33 PM EST The patient was seen and examined with the nephrology fellow. Please see the nephrology fellow's note from today for details. I have reviewed the fellow's note and agree with the exam, assessment, and plan. CREATININE (mg/dL) Date Value 08/01/2015 1.34* 07/31/2015 1.38* 07/30/2015 1.73* 07/29/2015 1.87* 07/28/2015 1.85* 07/27/2015 1.68* 07/26/2015 1.67* 07/26/2015 1.45* 07/25/2015 0.91 07/24/2015 0.35* Creatinine stable. However, patient's baseline creatinine 0.3, so still has significant renal dysfunction. Will obtain 24-hour urine collection to determine true creatinine clearance, as well as cystatin C for comparison. Would dose medications for creatinine clearance <15 until we can get more definitive information. Radha Dover, PT - 07/31/2015 4:09 PM EST Physical Therapy Note Visit #3 Patient profile:?? Pt. is a 64 y.o. female admitted on 07/23/[address] Caal, Elicia Uriarte, * intransfer from OSH for Vascular service consult who presents now with wet gangrene of the left lower extremity. ? 07-24-15: OR Procedure(s): 1. Left below-knee guillotine amputation 2. Incision and drainage of multiple LLE abscesses 3. Left common femoral artery exposure, debridement and repair with bovine pericardial patch. 4. Ligation and removal of thrombosed, infected left CLIENT SERVICES ASSOCIATE-PT PTFE bypass graft. ?? 5. Placement of wound vac. 07-27-15 OR procedure(s): 1. Left groin excisional debridement using Metzenbaum scissors. 2. Irrigation of excised LLE bypass tunnel. 3. Left Sartorious flap coverage of patched femoral artery. 4. Left groin wound vac placement. Taken back to surgery: 07/29/15 OR Procedure(s): 1. Left AKA. 2. Left groin wound vac change. Of note, she was growing MRSA and pseudomonas from the wound at the OSH, she has been on ceftazidineand vancomycin. Recent History: ?? October 2014 claudication, this quickly progressed to rest pain. She underwent SFA to peroneal bypass with vein in 03-18-15. On 05-19-15 this bypass graft was noted to be occluded and her rest pain was persistent. She then underwent a second LLE bypass CLIENT SERVICES ASSOCIATE to PT with PTFE, on 05-26. This was found to be occluded on 06-01. Since that time the patient has had progressive worsening of her medial/distal surgical incision that has failed to heal. With no additional revasc options she was offered opportunityto enrol in stemcell trial, but declined. 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 On 07-20-15 she present to [facility] with SIRS physiology, felt to be related to her leg wound. She declined transfer to [facility] for amputation at that time and was admitted and started on antibiotics. Today, she has resigned to transfer for further care of her leg wound. PMH: Past Medical History Past Medical History?? Diagnosis?? Date? HTN (hypertension)? DM (diabetes mellitus)? metformin? Hypercholesterolemia? PVD (peripheral vascular disease)? HLD (hyperlipidemia)?? 03/24/2015?? Past Surgical History Past Surgical History?? Procedure?? Laterality?? Date? Skin graft?? Left? left 2nd metacarpal? Pro vein bypass graft, fem-tibial?? Left?? 03/18/2015? @BYPASS GRAFT, FEM.-ANT. TIB, POST. TIB, PERONEAL, DP W\ VEIN CONDUIT ([place] [id number]) performed by Mariano Doyle MD at [facility]? Pro bypass graft othr, fem-tibial?? Left?? 05/26/2015? @BYPASS GRAFT, FEM-ANT TIBIAL, -POST TIBIAL, -PERONEAL, -DP W\ SYNTHETIC CONDUIT performed by Mariano Doyle MD at [facility] OR? Pro bypass graft vein patch/cuff, synthetic?? Left?? 05/26/2015? PLACEMENT VEIN PATCH OR CUFF AT DISTAL ANASTOMOSIS OF BYPASS GRAFT, SYNTHETIC CONDUIT , RODRIGUEZ-PA, RACHELLE-PATCH, ADD-ON CODE, LOWER EXTREMITY performed by Mariano Doyle MD at [facility] OR? Pro thromboendartectmy iliofemoral?? Left?? 05/26/2015? @ENDARTERECTOMY, ILIOFEMORAL W OR W/O PATCH GRAFT performed by Mariano Doyle MD at [facility]? Pro reoperation, bypass graft?? Left?? 05/26/2015? @RE-OP FOR RE-DO LOWER EXTREMITY BYPASS GRAFT, >1 MONTH P\ ORIGINAL SURGERY, ADD-ON CODE performed by Mariano Doyle MD at [facility] OR? Pro amputation low leg, circular?? Left?? 07/24/2015? @AMPUTATION, BELOW-KNEE, OPEN, GUILLOTINE [facility]? Pro exploration, femoral artery?? Left?? 07/24/2015? @EXPLORATION, W/WO LYSIS, FEMORAL ARTERY W\O SURGICAL REPAIR performed by Rufus Caal MD at [facility] OR? Pro negative pressure wound therapy, less than or equal to 50 sqcm?? Left?? 07/24/2015? DRESSING CHANGE (VAC ASSISTED) UP TO 50SQ.CM performed by Elicia Caal MD at [facility] OR? Pro rebl ves direct, low extrem?? Left?? 07/24/2015? REPAIR LOWER EXTREMITY BLOOD VESSEL, DIRECT, NO PATCH OR GRAFT performed by Elicia Caal MD at [facility] OR? Pro excision, infec graft, extremity?? Left?? 07/24/2015? EXCISION OF INFECTED GRAFT FROM LOWER EXTREMITY performed by Elicia Caal MD at [facility] OR? Pro muscle-skin flap, leg?? Left?? 07/27/2015? FLAP, MYOCUTANEOUS OR FASCIOCUTANEOUS, LOWER EXTREMITY performed by Elicia Caal MDat [facility]? Pro debridement subcutaneous tissue 20 sqcm/<?? Left?? 07/27/2015? DEBRIDEMENT SKIN AND SUBCU,?? LOWER EXTREMITY performed by Elicia Caal MD at [facility] OR? Left?? 07/27/2015? MODIFIER WOUND VAC performed by Elicia Caal MD at [facility] MAIN OR?? Social History: Patient lives in [place], [place].?? Lives with boyfriend.?? Boyfriend works so she's home alone. Baseline Mobility: decreased activity tolerance but managing on her own in day hours while boyfriendworking. Boyfriend states his home is a small [place] style re-done outside and his mother needed a ramp so he had deck rebuilt and ramp re-built. Precautions/Special Considerations: DNR code status; activity as tolerated per MD orders. Subjective: ???That was better than with the walker. Less pain, and easier too. (pt's self assessment after completing slideboard transfer) Objective:Pt received in supine, agreeable to rx. Family in visiting ?? Pain: c.o intermittent spasms only, in superior aspect of residual limb ?? Bed mobility: HOB up, Mod - Max A x 1 with sheets for supine to sit at EOB transfer? Balance:?? Initially upon sitting, she was holding L LE up (d/t pain/spasm) and able to relax L LE down against bed for balance. Initially req min - mod A to maintain midline sitting balance, quickly able to maintain static midline with supervision Bed to Chair: Using slideboard with max verbal cues for technique/instruction, armrest of chair in lowered position ?? EOB to chair via slideboard with Min-mod A x 2 for safety. Pt able to reposition self in recliner with B UE's and vc. Pt left in chair with all needs in reach, instructions for transfer written on whiteboard, reviewed with pt and family, RN, OUTBOARD MOTOR MECHANIC. Slideboard on bed for pt use with return to bed ?? Vital Signs: Sp02: 94% on RA HR: 80's Education: patient, SO have been educated on slide board transfer, reviewed therex with pt; reviewedpositioning of L LE to facilitate max ROM and prevent contracture Assessment: Pt presents to PT with significant impairments in endurance and functional mobility 2' baseline deconditioning now with new L AKA. Pt reports a prolonged course of illness with steady decline in function but now has excellent potential for functional gains with recent definitive management. Pt is a motivated participant and is showing steady gains. Pt will benefit from ongoing skilled rx to facilitate max functional gains and return to functional independence. Goals: To be achieved by 08-07-15. ? 1. Pt. to demonstrate knowledge of precautions & safety during functional activities, call for assist prior to moving. 2. Pt. to demonstrate understanding of appropriate exercises including prevent of L hip contracture (AKA). 3. Pt. to perform bed mobility with min assist x 1 4. Pt maintain sitting balance on her own, supervised. 5. Pt. to perform sit > stand from EOB to walker with min A x 1 and stand for at least 2 min. 6. Pt perform slide board transfer's with 1 person assist. 7. Pt propel w/c (I) 50' with arms.? 8. Pt. to wt shift or hop or pivot on R LE holding walker to transfer bed >< chair w/ min A x 2. Plan: If time permits, will ask weekend PT to see patient tomorrow for transfer training; assist nursing w/ safest mode of transfer so patient can begin OOB >< chair/commode/w/c. Pt to be seen 2-5 times per week for therapy including Bed mobility, Transfers, Exercise, Positioning, Safety , Balance and Discharge planning.?? Patient agrees with plan as stated above. ?? Equipment needs: Rolling walker, Wheelchair and possibly slide board @ present. Discharge Recommendations: Pt will require ongoing inpatient rehabilitation upon hospital d/c in order to achieve independence with functional mobility. Pt is motivated to participate, has home support, and a w/c accessible homesetup Total time spent with patient: 55 minutes Total timed interventions: 55 minutes ( ta x 3) Radha Dover PT, MSPT Pager [phone] Inpatient Physical Therapy Juliano Allen - 07/31/2015 12:44 PM EST INPATIENT DAILY PROGRESS NOTE Patient Name: Chan Hurst Patient Age: 64 y.o. Birthdate: 1950 Admit date: 07/23/2015 Attending Physician: Elicia Caal, * ID: Chan Hurst is a 64 y.o. 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 Patient developed claudication in October 2014, this quickly progressed to rest pain. She underwent SFA to peroneal bypass with vein in 03-18-15. On 05-19-15 this bypass graft was noted to be occluded and her rest pain was persistent. She then underwent a second LLE bypass CLIENT SERVICES ASSOCIATE to PT with PTFE, on 05-26. This was found to be occluded on 06-01. Since that time the patient has had progressive worsening of her medial/distal surgical incision that has failed to heal. Procedures: 07/24: LLE guillotine amp, removal PTFE graft, wound vac, bovine patch CLIENT SERVICES ASSOCIATE 07/27: Wound vac change, sartorious flap coverate for patched femoral artery 07/29: Left AKA and vac change Recent events/symptoms: No acute events overnight O: Last value Range last 24hrs Temperature Temp: 36.6 ??C (97.9 ??F) Temp: [36.6 ??C (97.9 ??F)-37 ??C (98.6 ??F)] Heart Rate Heart Rate: 87 Heart Rate: [77-87] Blood Pressure BP: 135/80 mmHg BP: (121-159)/(61-85) Respiratory Rate Resp: 18 Resp: [11-18] SpO2 SpO2: 96 % SpO2: [94 %-98 %] 07/30 0701 - 07/31 0700 In: 1176.4 [P.O.:540; I.V.:636.4] Out: 1375 [Urine:1175] High Protein - High Calorie diet Physical Exam: General: NAD, A&Ox3, resting in bed, cooperative HEENT: NC/AT CVS: regular rate Pulm: breathing comfortably LLE: left groin vac with good suction. AKA dressing clean and dry Garnica in place draining light yellow urine Neuro: Grossly intact, nonfocal, moving all four extremities spontaneously. Recent Labs 07/31/15 0729 07/30/15 0811 07/29/15 0213 WBC 21.4* 14.7* 11.2* HGB 8.8* 8.7* 9.1* HCT 26.6* 26.8* 27.3* PLATELET 370 405* 398* Recent Labs 07/31/15 0729 07/30/15 0811 07/29/15 0213 NA 137 142 139 K 3.9 4.0 3.7 CL 101 106 103 CO2 23 25 22 BUN 21* 19* 22* CREATININE 1.38* 1.73* 1.87* GLUCOSE 215* 223* 257* CALCIUM 7.9* 7.9* 8.1* Vascular Studies: TCPO2 05/2015 Left ?Transcutaneous Oxygen Saturation (mmHg) ?? Rt Chest ? 67 ?? 10 cm Above Knee ? 31 ?? 15 cm Below Knee ? 33 ?? ForeFoot ? 3 ASSESSMENT: Chan Hurst is a 64 y.o. female POD #7 s/p guillotine amputation LLE with removal of thrombosed/infected L CLIENT SERVICES ASSOCIATE-PT PTFE bypass graft, and debridement of L CLIENT SERVICES ASSOCIATE artery with repair of bovine pericardial patch POD#4 from sartorious flap coverage of exposed CLIENT SERVICES ASSOCIATE, POD #2 s/p L AKA. . Leukocytosis today, getting UA with culture. On dapto but may need to broaden pending results. Removing garnica, stopping HYDRAMATIC SPECIALIST and encouraging mobilization today. PLAN 07/31: 1. Daptomycin, discontinue Zosyn per ID recs as not growing Pseudomonas from groin wound but only from foot, which has been amputated. UA as above. 2. Increase intake of nutritious fluids not just liquid. 3. Stop HYDRAMATIC SPECIALIST. 4. Taking garnica out. 5. PT/OT consults Juliano Allen [phone]. Vesna Aguila MD - 07/31/2015 12:02 PM EST HYPERTENSION/ NEPHROLOGY CONSULT PATIENT: Chan Hurst : 1950 REASON FOR CONSULTATION: worsening of creat referred by Dr. Caal ID: 64 y.o. female with DM, HTN PVD, LLE bypass surgeries including SFA to peroneal bypass admitted with wet gangrene of her left lower extremity. Is s/p BKA of left LE. S:Pt seen in her room feeling ok MEDICATIONS: ??? heparin (porcine) 5,000 Units Subcutaneous 2 times per day ??? gabapentin 600 mg Oral BID ??? polyethylene glycol (MIRALAX)oral powder 17 g Oral BID ??? DAPTOmycin 7 mg/kg/dose Intravenous Q48H ??? senna-docusate 1 tablet Oral BID ??? aspirin 81 mg Oral Daily ??? meTOPROLOL succinate 25 mg Oral Daily ??? sertraline 50 mg Oral Daily ??? simvastatin 20 mg Oral Nightly ??? insulin aspart 1-4 Units Subcutaneous TID AC PHYSICAL EXAM: Last value Range last 24 hrs Temperature Temp: 36.6 ??C (97.9 ??F) Temp: [36.6 ??C (97.9 ??F)-37 ??C (98.6 ??F)] Heart Rate Heart Rate: 87 Heart Rate: [77-87] Blood Pressure BP: 135/80 mmHg BP: (121-159)/(61-85) Respiratory Rate Resp: 18 Resp: [11-18] SpO2 SpO2: 96 % SpO2: [94 %-98 %] Appearance - Alert, Comfortable. Skin - No exanthem. HEENT - Sclera white. Mucous membranes moist. Chest: Lungs clear to ausculatation w/o wheezes/ rhonchi/ crackles. Heart - S1 and S2 clear w/o murmur, gallop, or rub. JVP not elevated. Abd - Soft. + BS. No bruit. Non tender. Ext - Warm. No cyanosis. + dependent edema over Rt LE. Left has KA Neuro - No asterixis. STUDIES: Labs: CBC: Recent Labs 07/31/15 0729 07/30/15 0811 07/29/15 0213 WBC 21.4* 14.7* 11.2* HGB 8.8* 8.7* 9.1* PLATELET 370 405* 398* Chemistry: Recent Labs 07/31/15 0729 07/30/15 0811 07/29/15 0213 NA 137 142 139 K 3.9 4.0 3.7 CL 101 106 103 CO2 23 25 22 BUN 21* 19* 22* CREATININE 1.38* 1.73* 1.87* GLUCOSE 215* 223* 257* Recent Labs 07/31/15 0729 07/30/15 0811 07/29/15 0213 CALCIUM 7.9* 7.9* 8.1* LFT's: Recent Labs 07/28/15 0737 BILITOT 0.3 BILIDIR 0.1 ALBUMIN 2.3* ALKPHOS 184* ALT 6 AST 11 UA: ph 5 SG 1020 Glucose + no prot or leucocytes Uric acid crystals on microscopy IMPRESSION/ RECOMMENDATIONS: 64 yo lady with no known renal Hx admitted for wet gangrene of her left lower extremity is s/p BKA. We are consulted for worsening of kidney function. acute on CKD could be a combination of multiple factors vanco toxicity vs AIN, low BP episodes during surgery with ATN/lisinopril and metformin which could have contributed Urine out put > 1L yesterday. Apparel Embroidery Digitizer is stale to improving today Duplex for kidneys showed no CHI Stopped lisinopril/metformin avoid hypotension episodes In future keep sys BP >130 Uric acid level in normal limit( uric acid crystal on urine microscopy) We will watch kidney function closely Please avoid nephrotoxins Please renally dose all medications Please avoid IV lines PICC lines in patients who may ever need dialysis Please save non-dominant arm for access We will follow pt with you Thanks for letting us participate in the care of this patient. Seen and Discussed w/ Dr. Ignacio Moise Nephrology Fellow Pager [phone] Associated attestation - Karen Pierre MD - 07/31/2015 1:28 PM EST The patient was seen and examined with the nephrology fellow. Please see the nephrology fellow's note from today for details. I have reviewed the fellow's note and agree with the exam, assessment, and plan. More consistently alert today. Feeling better except for intermittent periods of significant pain. She also complains of what she thinks are muscle cramps. Continued downward trend in creatinine, and adequate urine output. We will continue to follow. CREATININE (mg/dL) Date Value 07/31/2015 1.38* 07/30/2015 1.73* 07/29/2015 1.87* 07/28/2015 1.85* 07/27/2015 1.68* 07/26/2015 1.67* 07/26/2015 1.45* 07/25/2015 0.91 07/24/2015 0.35* 07/23/2015 0.35* Tiffanie Raygoza RN - 07/30/2015 7:52 PM EST Patient came to the floor around 1800 from ISCU; A & O, pain 01/14, niece/ at bedside. Upon assessment, lungs clear, heart regular, active BS, passing flatus, garnica to gravity drainage, rightDP and PT palpable 1+ with some edema in the foot and ankle, left residual limb dressing was kenneth-wrapped and C/D/I. Two right PIV's were running, one that was connected to a Dilaudid HYDRAMATIC SPECIALIST running at 0.2/5/4 and the other KVO. Skin intact overall; however, upon report from ISCU, patient has a red, blanchable spot on coccyx. An attempt was made to turn, but patient experienced increased pain. Tylenol 500mg and Oxycodone 5mg were administered. During conversation with patient, although alert and oriented most of the time, will talk about a completely different topic. Upon report, it was also noted thatpatient did experience hallucinations in the ISCU that are most likely due to Dilaudid HYDRAMATIC SPECIALIST. Will continue to monitor. Patient remains in bed and has call aparicio within reach. Anabel Vela PT - 07/30/2015 4:42 PM EST Physical Therapy Note Visit #2 Patient profile: Pt. is a 64 y.o. female admitted on 07/23/2015 by Elicia Rivera, * in transfer from [facility] for Vascular service consult who presents now with wet gangrene of the left lower extremity. 07-24-15: OR Procedure(s): 1. Left below-knee guillotine amputation 2. Incision and drainage of multiple LLE abscesses 3. Left common femoral artery exposure, debridement and repair with bovine pericardial patch. 4. Ligation and removal of thrombosed, infected left CLIENT SERVICES ASSOCIATE-PT PTFE bypass graft. ?? 5. Placement of wound vac. 07-27-15 OR procedure(s): 1. Left groin excisional debridement using Metzenbaum scissors. 2. Irrigation of excised LLE bypass tunnel. 3. Left Sartorious flap coverage of patched femoral artery. 4. Left groin wound vac placement. Taken back to surgery: 07/29/15 OR Procedure(s): 1. Left AKA. 2. Left groin wound vac change. Of note, she was growing MRSA and pseudomonas from the wound at the OSH, she has been on ceftazidineand vancomycin. Recent History: October 2014 claudication, this quickly progressed to rest pain. She underwent SFA to peroneal bypass with vein in 03-18-15. On 05-19-15 this bypass graft was noted to be occluded and her rest pain was persistent. She then underwent a second LLE bypass CLIENT SERVICES ASSOCIATE to PT with PTFE, on 05-26. This was found to be occluded on 06-01. Since that time the patient has had progressive worsening of her medial/distal surgical incision that has failed to heal. With no additional revasc options she was offered opportunityto enrol in stemcell trial, but declined. 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 On 07-20-15 she present to [facility] with SIRS physiology, felt to be related to her leg wound. She declined transfer to [facility] for amputation at that time and was admitted and started on antibiotics. Today, she has resigned to transfer for further care of her leg wound. PMH: Past Medical History Diagnosis Date ??? HTN (hypertension) ??? DM (diabetes mellitus) metformin ??? Hypercholesterolemia ??? PVD (peripheral vascular disease) ??? HLD (hyperlipidemia) 03/24/2015 Past Surgical History Procedure Laterality Date ??? Skin graft Left left 2nd metacarpal ??? Pro vein bypass graft, fem-tibial Left 03/18/2015 @BYPASS GRAFT, FEM.-ANT. TIB, POST. TIB, PERONEAL, DP W\ VEIN CONDUIT ([place] [id number]) performed by Mariano Doyle MD at [facility] OR ??? Pro bypass graft othr, fem-tibial Left 05/26/2015 @BYPASS GRAFT, FEM-ANT TIBIAL, -POST TIBIAL, -PERONEAL, -DP W\ SYNTHETIC CONDUIT performed by Mariano Doyle MD at [facility] OR ??? Pro bypass graft vein patch/cuff, synthetic Left 05/26/2015 PLACEMENT VEIN PATCH OR CUFF AT DISTAL ANASTOMOSIS OF BYPASS GRAFT, SYNTHETIC CONDUIT , RODRIGUEZ-COLLAR, RACHELLE-PATCH, ADD-ON CODE, LOWER EXTREMITY performed by Mariano Doyle MD at [facility] OR ??? Pro thromboendartectmy iliofemoral Left 05/26/2015 @ENDARTERECTOMY, ILIOFEMORAL W OR W/O PATCH GRAFT performed by Mariano Doyle MD at [facility] OR ??? Pro reoperation, bypass graft Left 05/26/2015 @RE-OP FOR RE-DO LOWER EXTREMITY BYPASS GRAFT, >1 MONTH P\ ORIGINAL SURGERY, ADD-ON CODE performed by Mariano Doyle MD at [facility] OR ??? Pro amputation low leg, circular Left 07/24/2015 @AMPUTATION, BELOW-KNEE, OPEN, GUILLOTINE performed by Elicia Caal MD at [facility] OR ??? Pro exploration, femoral artery Left 07/24/2015 @EXPLORATION, W/WO LYSIS, FEMORAL ARTERY W\O SURGICAL REPAIR performed by Elicia Caal MD at [facility] OR ??? Pro negative pressure wound therapy, less than or equal to 50 sqcm Left 07/24/2015 DRESSING CHANGE (VAC ASSISTED) UP TO 50SQ.CM performed by Elicia Caal MD at [facility] OR ??? Pro rebl ves direct, low extrem Left 07/24/2015 REPAIR LOWER EXTREMITY BLOOD VESSEL, DIRECT, NO PATCH OR GRAFT performed by Elicia Caal MD at [facility] OR ??? Pro excision, infec graft, extremity Left 07/24/2015 EXCISION OF INFECTED GRAFT FROM LOWER EXTREMITY performed by Elicia Caal MD at [facility] OR ??? Pro muscle-skin flap, leg Left 07/27/2015 FLAP, MYOCUTANEOUS OR FASCIOCUTANEOUS, LOWER EXTREMITY performed by Elicia Caal MD at [facility] OR ? ? Pro debridement subcutaneous tissue 20 sqcm/< Left 07/27/2015 DEBRIDEMENT SKIN AND SUBCU, LOWER EXTREMITY performed by Elicia Caal MD at [facility] OR ??? Left 07/27/2015 MODIFIER WOUND VAC performed by Elicia Caal MD at [facility] OR Social History: Patient lives in [place], [place]. Lives with boyfriend. Boyfriend works so she's home alone. Baseline Mobility: decreased activity tolerance but managing on her own in day hours while boyfriendworking. Boyfriend states his home is a small ranch style re-done outside and his mother needed a ramp so he had deck rebuilt and ramp re-built. Precautions/Special Considerations: DNR code status; activity as tolerated per MD orders. Subjective: ???Sure, I'll try it?? Just lets take it slow please. Objective: New order's received post-op, Thank you. Patient demonstrating the following: ?? Pt resting in bed, SO & daughter visiting, she was willing to try perform some activity, starting w/ sitting EOB. ?? Pain: she reports pain under control 2/10 @ rest using HYDRAMATIC SPECIALIST throughout session, more pain in L LE w/ activity ?? Bed mobility: HOB up, swiveled hips using bed pad, dependent x 1 assist. She was able to pull torso forwards. ?? Balance: Able to gain her balance sitting EOB, holding railing L hand after a few minutes of sititng ?? Initially upon sitting, she was holding L LE up (d/t pain) and able to relax L LE down against bed for balance. ?? She was agreeable to stand ?? Sit > stand: from EOB to walker with R LE guarded and daughter helping on other side, min A x 2. ?? Stood for about 30 seconds and sat back on bed, noticed loose stool on bedpad, obtained RN to assist. ?? Pt stood to walker again with RN and I and had to stand 1 min or more while RN cleaned bottom & clean pad placed ?? Max A x 1 to help move hips into bed, she could lift R LE. Pt exhausted and asking to get back tobed. ?? RN and I lifted pt up towards HOB, max A x 2. ?? Rolled to her R side with pillow supports. ?? Needs within reach. ?? Introduced slide board (left in room for next PT session) ?? Vital Signs: Sp02: 94% on 1 L O2 NC HR: 80's Education: patient, SO, daughter have been educated on slide board transfer, slide board shown to them and left in room and they verbalizes understanding. Patient instructed to try to keep L LE relaxed/down to avoid hip flexion contracture since groin wound needs to heal as well (VAC dressing in place). Patient status and mobility RN saw when she helped me stand pt second time for hygiene and getting back to bed. Assessment: Hospitalized x 1 week for L LE vascular compromise and MRSA from wounds (now only L groin wound). Went to surgery 3X's this week. Ended up with L AKA. Deconditioned even pre-admit from several failed surgeries this past Fall , including infection & pain. Patient very agreeable to work with therapy despite feeling fatigued today. Supportive family helping to massage R LE and back while sitting. Family also willing to help her stand @ bedside with my help and walker. Patient very weak but able to hold wt on R LE for 1 min or so. Slide board may be a way to start transferring patient to allow her to sit in chair or begin OOB activity. Work towards standing to transfer. SO reports home does have a ramp but not sure indoors will accomodate a w/c. Patient was home alone in day when her boyfriend worked and no longer @ this level; will benefit from rehab stay prior to return home. The pt would benefit from skilled therapy services to maximize functional independence while in the hospital and to address limitations as noted above. Goals: To be achieved by 08-07-15. 1. Pt. to demonstrate knowledge of precautions & safety during functional activities, call for assist prior to moving. 2. Pt. to demonstrate understanding of appropriate exercises including prevent of L hip contracture (AKA). 3. Pt. to perform bed mobility with min assist x 1 4. Pt maintain sitting balance on her own, supervised. 5. Pt. to perform sit > stand from EOB to walker with min A x 1 and stand for at least 2 min. 6. Pt perform slide board transfer's with 1 person assist. 7. Pt propel w/c (I) 50' with arms. 8. Pt. to wt shift or hop or pivot on R LE holding walker to transfer bed >< chair w/ min A x 2. Plan: If time permits, will ask weekend PT to see patient tomorrow for transfer training; assist nursing w/ safest mode of transfer so patient can begin OOB >< chair/commode/w/c. Pt to be seen 2-5 times per week for therapy including Bed mobility, Transfers, Exercise, Positioning, Safety , Balance and Discharge planning. Patient agrees with plan as stated above. Equipment needs: Rolling walker, Wheelchair and possibly slide board @ present. Discharge Recommendations: Based on my evaluation, patient will not be safe to be home alone @ this time; she'd benefit from rehab stay prior to return home. Her SO visiting today and mentioned [facility] or [facility] bed (close to home for them). SO states he works at least 50 hours per week. Total time spent with patient: 50 minutes Total timed interventions: 50 minutes TE-F x 3 ANABEL VELA, PT 07/30/2015 Pager: [phone] Physical Therapy Rehabilitation Department Vesna Aguila MD - 07/30/2015 3:38 PM EST HYPERTENSION/ NEPHROLOGY CONSULT PATIENT: Chan Hurst : 1950 REASON FOR CONSULTATION: worsening of creat referred by Dr. Caal ID: 64 y.o. female with DM, HTN PVD, LLE bypass surgeries including SFA to peroneal bypass admitted with wet gangrene of her left lower extremity. Is s/p BKA of left LE. S:Pt seen in her room feeling lethargic and tired but otherwise no other s/s. MEDICATIONS: ??? heparin (porcine) 5,000 Units Subcutaneous 2 times per day ??? gabapentin 600 mg Oral BID ??? polyethylene glycol (MIRALAX)oral powder 17 g Oral BID ??? DAPTOmycin 7 mg/kg/dose Intravenous Q48H ??? senna-docusate 1 tablet Oral BID ??? aspirin 81 mg Oral Daily ??? meTOPROLOL succinate 25 mg Oral Daily ??? sertraline 50 mg Oral Daily ??? simvastatin 20 mg Oral Nightly ??? insulin aspart 1-4 Units Subcutaneous TID AC PHYSICAL EXAM: Last value Range last 24 hrs Temperature Temp: 36.7 ??C (98.1 ??F) Temp: [36.4 ??C (97.5 ??F)-37 ??C (98.6 ??F)] Heart Rate Heart Rate: 82 Heart Rate: [72-82] Blood Pressure BP: 145/74 mmHg BP: (127-160)/(49-84) Respiratory Rate Resp: 17 Resp: [10-17] SpO2 SpO2: 100 % SpO2: [99 %-100 %] Appearance - Alert, Comfortable. Skin - No exanthem. HEENT - Sclera white. Mucous membranes moist. Chest: Lungs clear to ausculatation w/o wheezes/ rhonchi/ crackles. Heart - S1 and S2 clear w/o murmur, gallop, or rub. JVP not elevated. Abd - Soft. + BS. No bruit. Non tender. Ext - Warm. No cyanosis. + dependent edema over Rt LE. Left has BKA Neuro - No asterixis. STUDIES: Labs: CBC: Recent Labs 07/30/15 0811 07/29/15 0213 07/28/15 0430 WBC 14.7* 11.2* 11.1* HGB 8.7* 9.1* 9.0* PLATELET 405* 398* 350 Chemistry: Recent Labs 07/30/15 0811 07/29/15 0213 07/28/15 0430 NA 142 139 140 K 4.0 3.7 3.9 CL 106 103 104 CO2 22 22 BUN 19* 22* 20* CREATININE 1.73* 1.87* 1.85* GLUCOSE 223* 257* 193 Recent Labs 07/30/15 0811 07/29/15 0213 07/28/15 0430 CALCIUM 7.9* 8.1* 8.1* LFT's: Recent Labs 07/28/15 0737 BILITOT 0.3 BILIDIR 0.1 ALBUMIN 2.3* ALKPHOS 184* ALT 6 AST 11 UA: ph 5 SG 1020 Glucose + no prot or leucocytes Uric acid crystals on microscopy IMPRESSION/ RECOMMENDATIONS: 64 yo lady with no known renal Hx admitted for wet gangrene of her left lower extremity is s/p BKA. We are consulted for worsening of kidney function. acute on CKD could be a combination of multiple factors vanco toxicity vs AIN, low BP episodes during surgery with ATN/lisinopril and metformin which could have contributed Pt was taken to OR yesterday. Urine out put > 1L yesterday. Apparel Embroidery Digitizer is stale to improving today Duplex for kidneys showed no CHI Stopped lisinopril/metformin avoid hypotension episodes In future keep sys BP >130 Uric acid level in normal limit( uric acid crystal on urine microscopy) We will watch kidney function closely Please avoid nephrotoxins Please renally dose all medications Please avoid IV lines PICC lines in patients who may ever need dialysis Please save non-dominant arm for access We will follow pt with you Thanks for letting us participate in the care of this patient. Seen and Discussed w/ Dr. Ignacio Moise Nephrology Fellow Pager [phone] Associated attestation - Karen Pierre MD - 07/30/2015 3:45 PM EST The patient was seen and examined with the nephrology fellow. Please see the nephrology fellow's note from today for details. I have reviewed the fellow's note and agree with the exam, assessment, and plan. Feeling better today, but says she's having problems with her memory. Also says she goes in and out. Creatinine is stable. Urine output good. N.B. - Patient's eGFR is vastly overestimated by MDRD equation. Recommend doing 24 urine collection for creatinine clearance to get a better sense of her renal function. CREATININE (mg/dL) Date Value 07/30/2015 1.73* 07/29/2015 1.87* 07/28/2015 1.85* 07/27/2015 1.68* 07/26/2015 1.67* 07/26/2015 1.45* 07/25/2015 0.91 07/24/2015 0.35* 07/23/2015 0.35* 05/29/2015 0.43* Debi Perez MD - 07/30/2015 9:59 AM EST INPATIENT DAILY PROGRESS NOTE Patient Name: Chan Hurst Patient Age: 64 y.o. Birthdate: 1950 Admit date: 07/23/2015 Attending Physician: Elicia Caal, * ID: Chan Hurst is a 64 y.o. 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 Patient developed claudication in October 2014, this quickly progressed to rest pain. She underwent SFA to peroneal bypass with vein in 03-18-15. On 05-19-15 this bypass graft was noted to be occluded and her rest pain was persistent. She then underwent a second LLE bypass CLIENT SERVICES ASSOCIATE to PT with PTFE, on 05-26. This was found to be occluded on 06-01. Since that time the patient has had progressive worsening of her medial/distal surgical incision that has failed to heal. Procedures: 07/24: LLE guillotine amp, removal PTFE graft, wound vac, bovine patch CLIENT SERVICES ASSOCIATE 07/27: Wound vac change, sartorious flap coverate for patched femoral artery 07/29: Recent events/symptoms: No acute events overnight O: Last value Range last 24hrs Temperature Temp: 36.9 ??C (98.4 ??F) Temp: [36.4 ??C (97.5 ??F)-36.9 ??C (98.4 ??F)] Heart Rate Heart Rate: 82 Heart Rate: [62-90] Blood Pressure BP: 136/84 mmHg BP: (127-163)/(49-92) Respiratory Rate Resp: 13 Resp: [9-26] SpO2 SpO2: 99 % SpO2: [94 %-100 %] 07/29 0701 - 07/30 0700 In: 1256.6 [P.O.:420; I.V.:836.6] Out: 1710 [Urine:1210] High Protein - High Calorie diet Physical Exam: General: NAD, A&Ox3, resting in bed, cooperative HEENT: NC/AT CVS: regular rate Pulm: breathing comfortably on 2L NC LLE: left groin vac with good suction. AKA dressing clean and dry Garnica in place draining light yellow urine Neuro: Grossly intact, nonfocal, moving all four extremities spontaneously. Recent Labs 07/30/15 0811 07/29/153 07/28/15 0430 WBC 14.7* 11.2* 11.1* HGB 8.7* 9.1* 9.0* HCT 26.8* 27.3* 27.4* PLATELET 405* 398* 350 Recent Labs 07/30/1511 07/29/153 07/28/15 0430 NA 142 139 140 K 4.0 3.7 3.9 CL 106 103 104 CO2 25 22 22 BUN 19* 22* 20* CREATININE 1.73* 1.87* 1.85* GLUCOSE 223* 257* 193 CALCIUM 7.9* 8.1* 8.1* Vascular Studies: TCPO2 05/2015 Left ?Transcutaneous Oxygen Saturation (mmHg) ?? Rt Chest ? 67 ?? 10 cm Above Knee ? 31 ?? 15 cm Below Knee ? 33 ?? ForeFoot ? 3 ASSESSMENT: Chan Hurst is a 64 y.o. female POD #6 s/p guillotine amputation LLE with removal of thrombosed/infected L CLIENT SERVICES ASSOCIATE-PT PTFE bypass graft, and debridement of L CLIENT SERVICES ASSOCIATE artery with repair of bovine pericardial patch POD#3 from sartorious flap coverage of exposed CLIENT SERVICES ASSOCIATE, POD #1 s/p L AKA. . Has recovered well overnight following AKA. Will continue IV abx for persistent infection in thigh despite amputation. Nephrology consulted for PANDA, creatinine trending down this morning. PANDA likely due to supratherapeutic vanc trough. May have mild stenosis in left renal artery based on PSV, but will continue with conservative management as creatinine is down trending. PLAN 07/29: 1. Daptomycin, discontinue Zosyn per ID recs as not growing Pseudomonas from groin wound but only from foot, which has been amputated. 2. Increase intake of nutritious fluids not just liquid 3. Continue HYDRAMATIC SPECIALIST for break through pain control and PO pain meds. Will try to transition off of HYDRAMATIC SPECIALIST this weekend. 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 4. Keep garnica until patient mobilizing 5. PT/OT consults 6. Transfer to the floor Mala Cardenas RN - 07/30/2015 5:58 AM EST Patient alert and oriented at the start of the shift. Overnight she became delirious and started seeing people that were not in the room, she was re- oriented and stated that she knew no one was there but she did feel a little confused. Her pain was controlled well with the HYDRAMATIC SPECIALIST pump, and one time PRN dose of Oxycodone and Tylenol. 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 I explained many times that it will take a while for her body to heal, and that sleep, food and movement will be the goal for today. VSS stable overnight on 2LNC. Possible tx to floor room today? Patient stable. Mariano Chapman MD - 07/29/2015 11:34 PM EST INPATIENT DAILY PROGRESS NOTE Patient Name: Chan Hurst Patient Age: 64 y.o. Birthdate: 1950 Admit date: 07/23/2015 Attending Physician: Elicia Caal, * ID: Chan Shayla Hurst is a 64 y.o. 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 Patient developed claudication in October 2014, this quickly progressed to rest pain. She underwent SFA to peroneal bypass with vein in 03-18-15. On 05-19-15 this bypass graft was noted to be occluded and her rest pain was persistent. She then underwent a second LLE bypass CLIENT SERVICES ASSOCIATE to PT with PTFE, on 05-26. This was found to be occluded on 06-01. Since that time the patient has had progressive worsening of her medial/distal surgical incision that has failed to heal. Procedures: 07/24: LLE guillotine amp, removal PTFE graft, wound vac, bovine patch CLIENT SERVICES ASSOCIATE 07/27: Wound vac change, sartorious flap coverate for patched femoral artery Recent events/symptoms: Renal consult Up to chair with PT/OT Stable overnight O: Last value Range last 24hrs Temperature Temp: 36.8 ??C (98.2 ??F) Temp: [36.4 ??C (97.5 ??F)-36.9 ??C (98.4 ??F)] Heart Rate Heart Rate: 72 Heart Rate: [62-90] Blood Pressure BP: 144/67 mmHg BP: (137-163)/(63-92) Respiratory Rate Resp: 10 Resp: [9-26] SpO2 SpO2: 99 % SpO2: [93 %-100 %] 07/28 0701 - 07/29 0700 In: 1846.4 [P.O.:1250; I.V.:596.4] Out: 1820 [Urine:1045] High Protein - High Calorie diet Physical Exam: General: NAD, A&Ox3, resting in bed, cooperative HEENT: NC/AT CVS: RRR, no mgr Pulm: CTAB, no wheezes or rhonchi, breathing comfortably on 1L NC Abd: soft, non-tender, non-distended, no organomegaly, no guarding LLE: Dressing c/d/i on amputation stump. Tenderness along the stump. Wound vac in place with -125mmHg. No erythema surrounding. Neuro: Grossly intact, nonfocal, moving all four extremities spontaneously. Recent Labs 07/29/15 0213 07/28/15 0430 07/27/15 0512 WBC 11.2* 11.1* 13.7* HGB 9.1* 9.0* 8.8* HCT 27.3* 27.4* 27.0* PLATELET 398* 350 354 Recent Labs 07/29/15 0213 07/28/15 0430 07/27/15 0512 NA 139 140 142 K 3.7 3.9 4.1 CL 103 104 104 CO2 22 22 21* BUN 22* 20* 20* CREATININE 1.87* 1.85* 1.68* GLUCOSE 257* 193 221* CALCIUM 8.1* 8.1* 8.3* Vascular Studies: TCPO2 05/2015 Left ?Transcutaneous Oxygen Saturation (mmHg) ?? Rt Chest ? 67 ?? 10 cm Above Knee ? 31 ?? 15 cm Below Knee ? 33 ?? ForeFoot ? 3 ASSESSMENT: Chan Hurst is a 64 y.o. female POD #5 s/p guillotine amputation LLE with removal of thrombosed/infected L CLIENT SERVICES ASSOCIATE-PT PTFE bypass graft, and debridement of L CLIENT SERVICES ASSOCIATE artery with repair of bovine pericardial patch POD#2 from sartorious flap coverage of exposed CLIENT SERVICES ASSOCIATE. Continues to do well in this hospitalization. Will continue IV abx for persistent infection in thigh despite amputation. Nephrology has seen patient for PANDA which has continued to worsen from 1.85-->1.87 PLAN 07/29: 1. Daptomycin, discontinue Zosyn per ID recs as not growing Pseudomonas from groin wound but only from foot, which has been amputated. 2. Increase intake of nutritious fluids not just liquid 3. Continue HYDRAMATIC SPECIALIST for pain control 4. To OR today for AKA and wound vac change 5. Renal duplex MARIANO MIRAMONTES MD 07/29/2015 Vascular Surgery, PGY-1 Pager: [phone] Karen Thornton MD - 07/29/2015 8:03 PM EST INFECTIOUS DISEASE FELLOW INPATIENT F/U NOTE Active ID issues: Infected left heel ulcer(MRSA and Pseudomonas) and left calf vascular graft s/p explantation and left BKA on 07/24/15 S/p left groin infection with MRSA s/p I and D Left AKA 07/29/15 Subjective/24 hr Events: Afebrile,hemodynamically stable S/p OR today 07/29/15 ''Initially noted some purulence from calf tunnel so performed through knee amputation.?? However after this was performed we noted that the proximal thigh tunnel was clean with no evidence of residualinfection, so performed AKA.?? Skin closed with vertical mattress sutures of 3-0 nylon, gaps left between sutures to allow for egress of any residual fluid.?? Dressed with gauze and KENNETH.?? Left groin Sartorious flap appeared excellent, with no exposed vessels or evidence of infection. Irrigated and then two pieces of black sponge applied.'' Pertinent Medications: Iv daptomycin Labs Lab Results Component Value Date WBC 11.2* 07/29/2015 HGB 9.1* 07/29/2015 HCT 27.3* 07/29/2015 MCV 90.4 07/29/2015 PLATELET 398* 07/29/2015 Lab Results Component Value Date BUN 22* 07/29/2015 CREATININE 1.87* 07/29/2015 Micro Left groin cx 07/24/15 Body Fluid Culture (Abnormal) Rare Staphylococcus aureus, MRSA ? Gram Stain (Abnormal) Few White Blood Cells seen Rare Gram Positive Cocci in clusters seen ? Specimen Source Information ? Specimen Type: Other ? LEFT GROIN ASPIRATION. ? Susceptibility ? Staphylococcus aureus, mrsa ? MICROSCAN METHOD ? Amoxicillin + Clavulanate Resistant ? Ampicillin Resistant ? Ampicillin + Sulbactam Resistant ? Cefazolin Resistant ? Ceftriaxone Resistant ? Ciprofloxacin Sensitive ? Clindamycin Sensitive ? Daptomycin 0.5 Sensitive ? Erythromycin Resistant ? Gentamicin Sensitive 1 ? Levofloxacin Sensitive ? Linezolid Sensitive ? Oxacillin Resistant 2 ? Penicillin Resistant ? Tetracycline Sensitive ? Trimethoprim/Sulfa Sensitive ? Vancomycin Sensitive ? Imaging: No new imaging Impression: Cahn Hurst is a 64 y.o. female with above mentioned multiple comorbidities p/w left foot wet gangrene to OSH with septic physiology wound cx yielded MRSA and pseudomonas,transferred to [facility] for surgical management.At [facility] she was initiated on iv vancomycin and pip tazo,s/p OR on 07/24/15 with left BKA,explantation of vascular graft and patch and exploration of left groin,cultures from OR yieldedMRSA.She developed PANDA in the setting of high vancomycin trough which could be likely culprit,her levels of vanco are trending down,we recommend to start iv daptomycin as an alternative for MRSA infecti on.Regarding pseudomonas which was isolated in the left foot wound which now s/p BKA and received approx 5 days of ceftazidime or pip tazo so we recommended to stop iv pip tazo.She underwent AKA today 07/29/15(op report as above) so infected bone is removed and now we are treating left groin abscess with MRSA,duration of therapy would be ~10 days. Recommendation: Continue iv daptomycin 7mg/kg/day every 48 hrs Duration of therapy is at least 10 days from day of debridement(07/24/15) Monitor weekly CPK levels and renal functions ID service will sign off for now,please page [phone] with questions Recommendations discussed with treating team, Consult service will continue to follow patient. x Recommendations are above, please page if further consultation required. Case discussed with ID attending Dr.Talbot Nolberto Starkey MD Infectious Disease fellow Pager [phone] ID ATTENDING I agree with assessment and recommendations above. I reviewed the data set and guided decision-making but did not re-examine the patient today. Karen Thornton MD Page [phone] All of this 35 minute visit were spent on the floor/unit in coordination of care for the patient, regarding treatment of infection as detailed in note above. Bogdan Cazares MD - 07/29/2015 7:58 PM EST Post-Operative Progress Note Patient: Chan Hurst s/p Surgery: 07/29/2015 [id number] Procedure(s) (LRB): DRESSING CHANGE (FOR OTHER THAN ESCALANTE) UNDER ANES., LOWER EXTREMITY (Left) AMPUTATION, ABOVE-KNEE, SECONDARY CLOSURE OR SCAR REVISION (Left) Surgeon(s) and Role: * Elicia Caal MD - Primary * Juliano Allen MD - Resident-Surgeon Kelvin: 2 Hr 21 Min 10 Sec * No complications entered in OR log * Short History: awakened from anesthesia, extubated and taken to the recovery room in a stable condition, having suffered no apparent untoward event. Patient location: Telemetry/Step Down Unit Post-op Consciousness awake, alert and oriented Post-op pain: Adequate analgesia Post-op nausea: no nausea or vomiting Post-op Cardiovascular Status: No chest pain Post-op Respiratory Status: No shortness of breath Post-op Wound Status No redness and discharge clean, dry, intact Pain: in incision Subjective/Events: Patient denies chest pain, shortness of breath, dizziness, headache, abdominal pain, nausea, vomiting. Objective: Vitals: Temp: [36.4 ??C (97.5 ??F)-36.9 ??C (98.4 ??F)] Heart Rate: [77-90] Resp: [9-26] BP: (140-163)/(72-92) SpO2: [94 %-100 %] Intake/Output Summary (Last 24 hours) at 07/29/151957 Last data filed at 07/29/15 1800 Gross per 24 hour Intake 1396.2 ml Output 1585 ml Net -188.8 ml Exam: General: NAD, awake/alert, responds to questions, resting comfortably in bed HEENT: EOMI, normocephalic, atraumatic Cardiac: RRR, S1/S2, No M/R/G Resp: Breathing comfortably, CTAB Abd: soft, non-tender, no guarding or peritoneal signs. Garnica in place draining clear yellow urine. Ext: R leg WWP. L s/p AKA, bandage in place c/d/i. Wound vac setup in L groin/thigh area, appropriately tender along periphery, draining SS output. Neuro: No focal deficits. CN II-XII grossly intact. Wound: Dressing: clean, dry, intact A/P: 64 y.o. year old female POD#0 s/p above procedure. she is having the following post op complications: none - Vitals stable - Continue usual post-operative care BOGDAN CAZARES MD 07/29/2015 7:58 PM Elicia Webb RN - 07/29/2015 7:00 PM EST NPN. AVANAMARIA. Transported to Pre anesthesia with gag writer. Returned from OR AVSS, lethargic, opens eyes to voice, states she is tired and pain in controlled. [place], no deficits noted. LLE dressing remains CDI. Vascular team at bedside this evening. Family at bedside, questions answered and support provided, for full assessment and vital signs please see doc flowsheets. Elicia Hawley RN. Bree Wallace RN - 07/29/2015 3:13 PM EST Pt to PACU via bed from OR; monitors applied, alarms set and audible. 1445: HYDRAMATIC SPECIALIST button given back to pt. Verbalizes understanding of use. Sleepy but wakes to verbal. Saysshe feels fairly comfortable. 1515: Report to JOSEPH Chairez in ISCU. Pt transferred to room via bed on monitor with RN escort. Vesna Aguila MD - 07/29/2015 11:20 AM EST HYPERTENSION/ NEPHROLOGY CONSULT PATIENT: Chan Hurst : 1950 REASON FOR CONSULTATION: worsening of creat referred by Dr. Caal ID: 64 y.o. female with DM, HTN PVD, LLE bypass surgeries including SFA to peroneal bypass admitted with wet gangrene of her left lower extremity. Is s/p BKA of left LE. S:Pt seen in her room feeling lethargic and tired but otherwise no other s/s. MEDICATIONS: ??? polyethylene glycol (MIRALAX)oral powder 17 g Oral BID ??? DAPTOmycin 7 mg/kg/dose Intravenous Q48H ??? senna-docusate 1 tablet Oral BID ??? aspirin 81 mg Oral Daily ??? gabapentin 300 mg Oral TID ??? meTOPROLOL succinate 25 mg Oral Daily ??? sertraline 50 mg Oral Daily ??? simvastatin 20 mg Oral Nightly ??? insulin aspart 1-4 Units Subcutaneous TID AC PHYSICAL EXAM: Last value Range last 24 hrs Temperature Temp: 36.9 ??C (98.4 ??F) Temp: [36.4 ??C (97.5 ??F)-36.9 ??C (98.4 ??F)] Heart Rate Heart Rate: 62 Heart Rate: [62-75] Blood Pressure BP: 147/77 mmHg BP: (112-158)/(63-94) Respiratory Rate Resp: 14 Resp: [11-17] SpO2 SpO2: 98 % SpO2: [93 %-100 %] Appearance - Alert, Comfortable. Skin - No exanthem. HEENT - Sclera white. Mucous membranes moist. Chest: Lungs clear to ausculatation w/o wheezes/ rhonchi/ crackles. Heart - S1 and S2 clear w/o murmur, gallop, or rub. JVP not elevated. Abd - Soft. + BS. No bruit. Non tender. Ext - Warm. No cyanosis. + dependent edema over Rt LE. Left has BKA Neuro - No asterixis. STUDIES: Labs: CBC: Recent Labs 07/29/15 0213 07/28/15 0430 07/27/15 0512 WBC 11.2* 11.1* 13.7* HGB 9.1* 9.0* 8.8* PLATELET 398* 350 354 Chemistry: Recent Labs 07/29/15 0213 07/28/15 0430 07/27/15 0512 NA 139 140 142 K 3.7 3.9 4.1 CL 103 104 104 CO2 22 21* BUN 22* 20* 20* CREATININE 1.87* 1.85* 1.68* GLUCOSE 257* 193 221* Recent Labs 07/29/15 0213 07/28/15 0430 07/27/15 0512 CALCIUM 8.1* 8.1* 8.3* LFT's: Recent Labs 07/28/15 0737 BILITOT 0.3 BILIDIR 0.1 ALBUMIN 2.3* ALKPHOS 184* ALT 6 AST 11 UA: ph 5 SG 1020 Glucose + no prot or leucocytes Uric acid crystals on microscopy IMPRESSION/ RECOMMENDATIONS: 64 yo lady with no known renal Hx admitted for wet gangrene of her left lower extremity is s/p BKA. We are consulted for worsening of kidney function. acute on CKD could be a combination of multiple factors vanco toxicity vs AIN, low BP episodes during surgery with ATN/lisinopril and metformin which could have contributed Pt was taken to OR again today. Urine out put > 1L yesterday and 175 today so far. 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 Seen and Discussed w/ Dr. Ignacio Moise Nephrology Fellow Pager [phone] Associated attestation - Karen Pierre MD - 07/29/2015 9:42 PM EST The patient was seen and examined with the nephrology fellow. Please see the nephrology fellow's note from today for details. I have reviewed the fellow's note and agree with the exam, assessment, and plan. May be seeing plateau in creatinine, consistent with ATN. If so, would anticipate recovery over the next few days, barring further renal insult. CREATININE (mg/dL) Date Value 07/29/2015 1.87* 07/28/2015 1.85* 07/27/2015 1.68* 07/26/2015 1.67* 07/26/2015 1.45* 07/25/2015 0.91 07/24/2015 0.35* 07/23/2015 0.35* 05/29/2015 0.43* 05/28/2015 0.39* Taylor Killian, BOB - 07/28/2015 12:45 PM EST Nutrition Note S:Likes milk, yogurt & Boost. 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 O: Patient Active Problem List Diagnosis Code ??? Claudication I73.9 ??? Non-healing ulcer of foot L97.509 ??? DMII (diabetes mellitus, type 2) E11.9 ??? Hypercholesterolemia E78.0 ??? Hypertension I10 ??? PAD (peripheral artery disease) I73.9 ??? HLD (hyperlipidemia) E78.5 ??? Critical lower limb ischemia I99.8 Diet: high calorie, high protein Recent Results (from the past 24 hour(s)) POCT Glucose Result Value Ref Range POC Glucose 156 65 - 199 mg/dL CK Result Value Ref Range CK, Total 98 0 - 160 unit/L POCT Glucose Result Value Ref Range POC Glucose 172 65 - 199 mg/dL POCT Glucose Result Value Ref Range POC Glucose 185 65 - 199 mg/dL Basic Metabolic Panel (non-fasting) Result Value Ref Range Glucose Lvl 193 65 - 199 mg/dL BUN 20 (H) 8 - 18 mg/dL Creatinine 1.85 (H) 0.70 - 1.20 mg/dL Sodium 140 135 - 145 mmol/L Potassium 3.9 3.5 - 5.0 mmol/L Chloride 104 98 - 107 mmol/L CO2 22 22 - 31 mmol/L Anion Gap 14 5 - 15 mmol/L Calcium 8.1 (L) 8.5 - 10.5 mg/dL Estimated GFR 27 (L) >=60 Hemogram Result Value Ref Range WBC 11.1 (H) 4.0 - 10.0 x10(3)/mcL RBC 3.03 (L) 3.93 - 5.22 x10(6)/mcL Hemoglobin 9.0 (L) 11.2 - 15.7 gm/dL Hematocrit 27.4 (L) 34.0 - 45.0 % MCV 90.4 79.0 - 94.0 fL MCH 29.7 26.6 - 32.2 pg MCHC 32.8 32.0 - 36.5 gm/dL Platelets 350 145 - 370 x10(3)/mcL RDWSD 50.6 (H) 35.0 - 46.0 fL RDWCV 15.4 (H) 10.9 - 14.4 % MPV 10.4 9.0 - 12.0 fL Differential, Automated Result Value Ref Range Neutrophils % 77.4 % Neutr Abs (ANC) 8.58 (H) 1.50 - 6.30 x10(3)/mcL Lymphocytes % 11.2 % Lymphocytes Abs 1.2 1.0 - 3.6 x10(3)/mcL Monocytes % 8.6 % Monocyte Abs 1.0 0.2 - 1.0 x10(3)/mcL Eosinophils % 1.4 % Eosinophils Abs 0.2 0.0 - 0.5 x10(3)/mcL Basophils % 0.4 % Basophils Abs 0.0 0.0 - 0.2 x10(3)/mcL Immature Gran % 1.00 % Rosenda Gran Abs 0.11 (H) 0.00 - 0.05 x10(3)/mcL Creatinine, urine, random Result Value Ref Range U Creatinine 62 mg/dL Electrolytes, urine, random Result Value Ref Range U Sodium 61 mmol/L U Potassium 22 mmol/L U Chloride 56 mmol/L Hepatic Function Panel Result Value Ref Range Total Protein 4.8 (L) 6.1 - 8.0 gm/dL Albumin 2.3 (L) 3.2 - 5.2 gm/dL AST 11 0 - 30 unit/L ALT 6 0 - 30 unit/L Alk Phos 184 (H) 40 - 104 unit/L Total Bilirubin 0.3 0.2 - 1.3 mg/dL Bili, Direct 0.1 0.0 - 0.3 mg/dL Prealbumin Result Value Ref Range Prealbumin 10 (L) 20 - 40 mg/dL TSH Result Value Ref Range TSH 0.98 0.27 - 4.20 mcIU/mL POCT Glucose Result Value Ref Range POC Glucose 167 65 - 199 mg/dL POCT Glucose Result Value Ref Range POC Glucose 221 (H) 65 - 199 mg/dL Pertinent Meds:novolog w/ meals LBM 07/24/15 Ht 152.4 cm Wt 52.7 kg ( pre-amp) BMI 22.6 IBW 56.4 kg w/ amp Est needs: 1400 Kcals, 85 gr protein A:Pt seen per diet order and low PAB. P.o. has been fair but pt makes good menu selections w/ encouragement. Pt enjoys sweets so may be may benefit from a carb controlled diet if pt remains hyperglycemic altho am not anxious to discourage intake. PAB of 10 concerning for healing but may be falsely lowgiven likely inflammation. Importance of high protein foods discussed; pt was able to verbalize w/ out prompting and is agreeable to Boost Glucose Control and Kinyarwanda yogurt. Plan/Recommendations: Suggest daily multivitamin Suggest check Hgb A1C Suggest consider carb controlled diet if pt becomes hyperglycemic Will offer Boost Glucose Control & Kinyarwanda yogurt per request Nutrition Services to follow Mariano Miramontes MD - 07/28/2015 9:44 AM EST INPATIENT DAILY PROGRESS NOTE Patient Name: Chan Hurst Patient Age: 64 y.o. Birthdate: 1950 Admit date: 07/23/2015 Attending Physician: Elicia Caal, * ID: Chan Hurst is a 64 y.o. 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 Patient developed claudication in October 2014, this quickly progressed to rest pain. She underwent SFA to peroneal bypass with vein in 03-18-15. On 05-19-15 this bypass graft was noted to be occluded and her rest pain was persistent. She then underwent a second LLE bypass CLIENT SERVICES ASSOCIATE to PT with PTFE, on 05-26. This was found to be occluded on 06-01. Since that time the patient has had progressive worsening of her medial/distal surgical incision that has failed to heal. Procedures: 07/24: LLE guillotine amp, removal PTFE graft, wound vac, bovine patch CLIENT SERVICES ASSOCIATE 07/27: Wound vac change, sartorious flap coverate for patched femoral artery Recent events/symptoms: OR yesterday Pain increased, needed to adjust HYDRAMATIC SPECIALIST No BM x4 days Currently feeling well w/o nausea or abdominal pain. Moderate LLE pain relieved with HYDRAMATIC SPECIALIST. O: Last value Range last 24hrs Temperature Temp: 37 ??C (98.6 ??F) Temp: [36.7 ??C (98.1 ??F)-37.2 ??C (99 ??F)] Heart Rate Heart Rate: 70 Heart Rate: [70-80] Blood Pressure BP: 136/70 mmHg BP: (96-170)/(60-84) Respiratory Rate Resp: 16 Resp: [10-25] SpO2 SpO2: 96 % SpO2: [95 %-99 %] 07/27 0701 - 07/28 0700 In: 1252.8 [P.O.:40; I.V.:1068.8] Out: 1515 [Urine:915] High Protein - High Calorie diet Physical Exam: General: NAD, A&Ox3, resting in bed, cooperative HEENT: NC/AT CVS: RRR, no mgr Pulm: CTAB, no wheezes or rhonchi, breathing comfortably on 1L NC Abd: soft, non-tender, non-distended, no organomegaly, no guarding LLE: Dressing c/d/i on amputation stump. Tenderness along the stump. Wound vac in place with -125mmHg. No erythema surrounding. Neuro: Grossly intact, nonfocal, moving all four extremities spontaneously. Recent Labs 07/28/15 0430 07/27/15 0512 07/26/15 0140 WBC 11.1* 13.7* 11.4* HGB 9.0* 8.8* 9.2* HCT 27.4* 27.0* 28.0* PLATELET 350 354 347 Recent Labs 07/28/15 0430 07/27/15 0512 07/26/15 1615 07/26/15 0140 NA 140 142 141 140 K 3.9 4.1 3.7 3.8 CL 104 104 103 103 CO2 22 21* 20* 23 BUN 20* 20* 17 17 CREATININE 1.85* 1.68* 1.67* 1.45* GLUCOSE 193 221* 176 193 CALCIUM 8.1* 8.3* 7.5* 7.9* Vascular Studies: TCPO2 05/2015 Left ?Transcutaneous Oxygen Saturation (mmHg) ?? Rt Chest ? 67 ?? 10 cm Above Knee ? 31 ?? 15 cm Below Knee ? 33 ?? ForeFoot ? 3 ASSESSMENT: Chan Hurst is a 64 y.o. female POD #4 s/p guillotine amputation LLE with removal of thrombosed/infected L CLIENT SERVICES ASSOCIATE-PT PTFE bypass graft, and debridement of L CLIENT SERVICES ASSOCIATE artery with repair of bovine pericardial patch POD#1 from sartorious flap coverage of exposed CLIENT SERVICES ASSOCIATE. Increased pain today from surgery, moderately controlled with HYDRAMATIC SPECIALIST. As she hasn't had a BM in quite some time we will increase bowel meds as she is on narcotics. PANDA worsened today with Cr 1.68-->1.85. This is likely due to Vanc, but today we will get urine lytes to calculate FeNa. Will consult nephrology for further assistance with managing PANDA. In regards to antibiotics we will continue to give Zosyn and Daptomycin. CK drawn to evaluate beforestarting therapy which is WNL. In ID note they address MRSA, but not Pseudomonas infection. Will continue with both antibiotics for coverage of both organisms. PLAN 07/28: 1. Daptomycin/Zosyn. 2. Increase intake of nutritious fluids not just liquid 3. Continue HYDRAMATIC SPECIALIST for pain control 4. PT/OT. Activity ad timothy. At least OOB to chair MARIANO MIRAMONTES MD 07/28/2015 Vascular Surgery, PGY-1 Pager: [phone] Bogdan Cazares MD - 07/27/2015 10:01 PM EST VASCULAR SURGERY POST-OP NOTE Chan Hurst is a 64 y.o. female s/p: 1. Left groin excisional debridement using Metzenbaum scissors. 2. Irrigation of excised LLE bypass tunnel. 3. Left Sartorious flap coverage of patched femoral artery. 4. Left groin wound vac placement SUBJECTIVE Pain sub-optimally controlled, pain is especially in her L foot (s/p amputation) and L groin. Deniesnausea/vomiting, chest pain, SOB. OBJECTIVE Temp: [37 ??C (98.6 ??F)] Heart Rate: [70-75] Resp: [10-17] BP: (96-152)/(60-76) SpO2: [95 %-99 %] PHYSICAL EXAM GEN: NAD. Resting comfortably. Conversant. CV: RRR, normal S1 S2 sounds. CHEST: Normal work of breathing. ABD: Soft, non-tender. EXTR: Warm. Moving spontaneously. L groin with wound vac in place, slightly tender peripherally. Canister almost full of SS drainage. L leg with kenneth wrap, leg warm, no active drainage. ASSESSMENT/PLAN 64 y.o. female s/p above procedure. Stable post-op. Will give her tylenol Q4 (has not been receiving) and change rfid specialist to max of 5mg per hour. Will reassess if this does not keep her comfortable. ?? Pain control needs adjusting - described above ?? Hemodynamically stable. ?? UOP adequate, continue to monitor. ?? Continue post-op plan per primary team. BOGDAN CAZARES MD 07/27/2015 10:03 PM Haley Narayanan RN - 07/27/2015 6:29 PM EST 1730 [facility] 1800 MD team @ BS, new orders to D/C continuous IVF and A line. Haley Narayanan RN - 07/27/2015 1:15 PM EST Pt off floor to OR at this time. Mariano Chapman MD - 07/27/2015 9:10 AM EST INPATIENT DAILY PROGRESS NOTE Patient Name: Chan Hurst Patient Age: 64 y.o. Birthdate: 1950 Admit date: 07/23/2015 Attending Physician: Elicia Caal, * ID: Chan Hurst is a 64 y.o. 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 Patient developed claudication in October 2014, this quickly progressed to rest pain. She underwent SFA to peroneal bypass with vein in 03-18-15. On 05-19-15 this bypass graft was noted to be occluded and her rest pain was persistent. She then underwent a second LLE bypass CLIENT SERVICES ASSOCIATE to PT with PTFE, on 05-26. This was found to be occluded on 06-01. Since that time the patient has had progressive worsening of her medial/distal surgical incision that has failed to heal. Recent events/symptoms: Unable to go to OR yesterday due to schedule. NPO overnight. SBP elevated to 160-170s, improved with IV labetalol and hydralazine x1 Currently feeling well w/o nausea or abdominal pain. Moderate LLE pain relieved with HYDRAMATIC SPECIALIST. O: Last value Range last 24hrs Temperature Temp: 36.6 ??C (97.9 ??F) Temp: [36.3 ??C (97.3 ??F)-36.9 ??C (98.4 ??F)] Heart Rate Heart Rate: 80 Heart Rate: [69-87] Blood Pressure BP: 156/78 mmHg BP: (156)/(78) Respiratory Rate Resp: 13 Resp: [9-20] SpO2 SpO2: 99 % SpO2: [94 %-100 %] 07/26 0701 - 07/27 0700 In: 1522.5 [I.V.:1522.5] Out: 1500 [Urine:1200] NPO diet (Give Meds) Physical Exam: General: NAD, A&Ox3, resting in bed, cooperative HEENT: NC/AT CVS: RRR, no m/r/g Pulm: CTAB, no wheezes or rhonchi, breathing comfortably on 1L NC Abd: soft, non-tender, non-distended, no organomegaly, no guarding LLE: Dressing c/d/i on amputation stump. Tenderness along the stump edges. Wound vac in place with -125mmHg. No erythema surrounding. Neuro: Grossly intact, nonfocal, moving all four extremities spontaneously. Recent Labs 07/27/15 0512 07/26/15 0140 07/25/15 0201 WBC 13.7* 11.4* 14.1* HGB 8.8* 9.2* 9.4* HCT 27.0* 28.0* 28.7* PLATELET 354 347 293 Recent Labs 07/27/15 0512 07/26/15 1615 07/26/15 0140 07/25/15 0201 NA 142 141 140 137 K 4.1 3.7 3.8 4.2 CL 104 103 103 98 CO2 21* 20* 23 18* BUN 20* 17 17 14 CREATININE 1.68* 1.67* 1.45* 0.91 GLUCOSE 221* 176 193 181 CALCIUM 8.3* 7.5* 7.9* 8.1* Vascular Studies: TCPO2 05/2015 Left ?Transcutaneous Oxygen Saturation (mmHg) ?? Rt Chest ? 67 ?? 10 cm Above Knee ? 31 ?? 15 cm Below Knee ? 33 ?? ForeFoot ? 3 ASSESSMENT: Chan Hurst is a 64 y.o. female s/p guillotine amputation LLE with removal of thrombosed/infected L CLIENT SERVICES ASSOCIATE-PT PTFE bypass graft, and debridement of L CLIENT SERVICES ASSOCIATE artery with repair of bovine pericardial patch. She was scheduled to go to the OR yesterday for sartorius flap, but due to scheduling was not able to. She will go today. In regards to antibiotics and PANDA, her Cr has stabilized this morning at 1.68. The Vancomycin has been stopped and her trough last night was 18.6. Per ID curbside, once trough <15 should start Linezolid or daptomycin for MRSA aspect of infection. Linezolid contraindicated due to SSRI (serotonin syndrome). Daptomycin will denny to be renally dosed and will need official ID consult. Plan for the OR today for sartorious flap coverage of CLIENT SERVICES ASSOCIATE and application of wound vac. Will re-evaluate anahi amp, most likely will not convert to formal amputation today, although she is consented for a BKA or AKA. PLAN 07/27: 1. Continue to hold Vanc. Zosyn. As above will consult ID for help with abx in light of PANDA. 2. OR today for sart flap and washout 3. 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 She is Gnosticism, values her brigida yet has not had a good health to practice. Assessment: She was scheduled for some surgery which was postponed for today. Intervention and Outcome: Provided pastoral/supportive presence & [facility] God's [facility] care [facility] Follow-up: Yes Time in Direct Care: 25 mins Brigido Littlejohn 07/27/2015 Mariano Miramontes MD - 07/26/2015 3:15 PM EST INPATIENT DAILY PROGRESS NOTE Patient Name: Chan Hurst Patient Age: 64 y.o. Birthdate: 1950 Admit date: 07/23/2015 Attending Physician: Elicia Caal, * ID: Chan Hrust is a 64 y.o. 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 Patient developed claudication in October 2014, this quickly progressed to rest pain. She underwent SFA to peroneal bypass with vein in 03-18-15. On 05-19-15 this bypass graft was noted to be occluded and her rest pain was persistent. She then underwent a second LLE bypass CLIENT SERVICES ASSOCIATE to PT with PTFE, on 05-26. This was found to be occluded on 06-01. Since that time the patient has had progressive worsening of her medial/distal surgical incision that has failed to heal. Recent events/symptoms: Stable overnight Decreased UOP yesterday responding well to LR bolus. O: Last value Range last 24hrs Temperature Temp: 36.9 ??C (98.4 ??F) Temp: [36.5 ??C (97.7 ??F)-37.2 ??C (99 ??F)] Heart Rate Heart Rate: 75 Heart Rate: [69-84] Blood Pressure BP: 103/59 mmHg BP: -- Respiratory Rate Resp: 9 Resp: [9-20] SpO2 SpO2: 99 % SpO2: [85 %-100 %] 07/25 0701 - 07/26 0700 In: 3295.4 [P.O.:560; I.V.:2735.4] Out: 1025 [Urine:625] NPO diet (Give Meds) Physical Exam: General: NAD, A&Ox3, resting in bed, cooperative HEENT: NC/AT CVS: RRR, no m/r/g Pulm: CTAB, no wheezes or rhonchi, breathing comfortably on 2l NC Abd: soft, non-tender, non-distended, no organomegaly, no guarding LLE: Dressing c/d/i on amputation stump. Removed and wound inspected. No purulence or erythema. Groin wound with Vac without erythema surrounding. Neuro: Grossly intact, nonfocal, moving all four extremities spontaneously. Lines/Drains: Drips: Recent Labs 07/26/15 0140 07/25/15 0201 07/24/15 0503 07/23/152049 WBC 11.4* 14.1* 8.9 8.8 HGB 9.2* 9.4* 9.3* 9.2* HCT 28.0* 28.7* 27.7* 27.0* PLATELET 347 293 222 216 Recent Labs 07/26/15 0140 07/25/15 0201 07/24/15 0503 07/23/152049 NA 140 137 134* 135 K 3.8 4.2 3.6 3.5 CL 103 98 95* 97* CO2 23 18* 22 24 BUN 17 14 7* 7* CREATININE 1.45* 0.91 0.35* 0.35* GLUCOSE 193 181 154 108 CALCIUM 7.9* 8.1* 8.0* 8.2* Vascular Studies: TCPO2 05/2015 Left ?Transcutaneous Oxygen Saturation (mmHg) ?? Rt Chest ? 67 ?? 10 cm Above Knee ? 31 ?? 15 cm Below Knee ? 33 ?? ForeFoot ? 3 ASSESSMENT: Chan Hurst is a 64 y.o. female s/p guillotine amputation LLE with removal of thrombosed/infected L CLIENT SERVICES ASSOCIATE-PT PTFE bypass graft, and debridement of L CLIENT SERVICES ASSOCIATE artery with repair of bovine pericardial patch. Overall she is doing well, however her Cr has bumped from 0.3-->0.9-->1.45 indicative of PANDA from supratherapeutic vancomycin. Last night her vanc trough was 23.2. We will continue to give MIVF to help perfuse her kidneys and hopefully decrease any further injury. Plan for the OR today for sartorious flap coverage of CLIENT SERVICES ASSOCIATE and application of wound vac. Will re-evaluate guillotine amp, most likely will not convert to formal amputation today. PLAN 07/26: 1. Continue to hold Vanc. Zosyn. Per OSH records, patient growing pseudomonas and S.aureus in ankle wound senstive to Zosyn and Vancomycin respectively. 2. OR today for sart flap and washout MARIANO MIRAMONTES MD 07/26/2015 Vascular Surgery, PGY-1 Pager: [phone] Mariano Miramontes MD - 07/25/2015 4:17 PM EST INPATIENT DAILY PROGRESS NOTE Patient Name: Chan Hurst Patient Age: 64 y.o. Birthdate: 1950 Admit date: 07/23/2015 Attending Physician: Elicia Caal, * ID: Chan Hurst is a 64 y.o. 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 Patient developed claudication in October 2014, this quickly progressed to rest pain. She underwent SFA to peroneal bypass with vein in 03-18-15. On 05-19-15 this bypass graft was noted to be occluded and her rest pain was persistent. She then underwent a second LLE bypass CLIENT SERVICES ASSOCIATE to PT with PTFE, on 05-26. This was found to be occluded on 06-01. Since that time the patient has had progressive worsening of her medial/distal surgical incision that has failed to heal. Recent events/symptoms: OR yesterday for LLE guilzoeine amputation Stable overnight O: Last value Range last 24hrs Temperature Temp: 36.6 ??C (97.9 ??F) Temp: [36.6 ??C (97.9 ??F)-37.2 ??C (99 ??F)] Heart Rate Heart Rate: 75 Heart Rate: [71-85] Blood Pressure BP: 103/59 mmHg BP: (103-132)/(40-63) Respiratory Rate Resp: 12 Resp: [-] SpO2 SpO2: 95 % SpO2: [93 %-99 %] 07/24 0701 - 07/25 0700 In: 4112.2 [P.O.:400; I.V.:3709.2] Out: 1100 [Urine:450] Carb Control diet 60/60/75 CHO counting level 2 NPO diet (Give Meds) Physical Exam: General: NAD, A&Ox3, resting in bed, cooperative HEENT: NC/AT CVS: RRR, no m/r/g Pulm: CTAB, no wheezes or rhonchi, breathing comfortably on 2l NC Abd: soft, non-tender, non-distended, no organomegaly, no guarding LLE: Dressing c/d/i on amputation stump. Removed and wound inspected. No purulence or erythema. Groin wound with Vac without erythema surrounding. Neuro: Grossly intact, nonfocal, moving all four extremities spontaneously. Lines/Drains: Drips: Recent Labs 07/25/15 0201 07/24/15 0503 07/23/15 2050 WBC 14.1* 8.9 8.8 HGB 9.4* 9.3* 9.2* HCT 28.7* 27.7* 27.0* PLATELET 293 222 216 Recent Labs 07/25/15 0201 07/24/15 0503 07/23/152049 NA 137 134* 135 K 4.2 3.6 3.5 CL 98 95* 97* CO2 18* 22 24 BUN 14 7* 7* CREATININE 0.91 0.35* 0.35* GLUCOSE 181 154 108 CALCIUM 8.1* 8.0* 8.2* Vascular Studies: TCPO2 05/2015 Left ?Transcutaneous Oxygen Saturation (mmHg) ?? Rt Chest ? 67 ?? 10 cm Above Knee ? 31 ?? 15 cm Below Knee ? 33 ?? ForeFoot ? 3 ASSESSMENT: Chan Hurst is a 64 y.o. female s/p guillotine amputation LLE with removal of thrombosed/infected L CLIENT SERVICES ASSOCIATE-PT PTFE bypass graft, and debridement of L CLIENT SERVICES ASSOCIATE artery with repair of bovine pericardial patch. Today her Cr is elevated after getting supratherapeutic Vancomycin (trough 26.8). PLAN 07/25: 1. Stop Vanc and remeasure trough this evening. Restart at much lower dose as determined by pharmacy. Continue Zosyn. Will attempt to obtain culture and sensitivity results from [facility] to better guide therapy. 2. Cr 0.3-->0.9. Will give MIVF and continue to follow 3. NPO @NV for OR tomorrow MARIANO MIRAMONTES MD 07/25/2015 Vascular Surgery, PGY-1 Pager: [phone] Kelsi Marks RN - 07/25/2015 2:23 PM EST Office of Care Management (OCM) / Insole Tape Stitcher [employer]co(CM)/ Initial Assessment Discussed patient with Provider Team and in multidisciplinary discharge-planning rounds. Reviewed record and interviewed patient. Introduced/reviewed CM role and services accepted. REASON for HOSPITALIZATION: wet gangrene with infected PTFE bypass graft; Left below-knee guillotineamputation PMH : LLE CLI (rest pain) PREVIOUS FUNCTIONAL STATUS: Independent in all ADLs, does not drive. Has ramp in to home, bed and bath on main level. CURRENT FUNCTIONAL STATUS: Adjusting to LLE amputation. SOCIAL / FAMILY SUPPORTS: SO Jaime Pulliam will be able to assist her at home when he is not at work. ADVANCE DIRECTIVES: SW contacted for paperwork HEALTH /PRESCRIPTION COVERAGE: [employer]BS [place]/ Financial Assistance CURRENT HOME/COMMUNITY SERVICES/EQUIPMENT: DME: Home Health Agency: [facility]- would use again Other: [employer] REFERRAL: Notified for: AD, Living Will paperwork PRIMARY CARE PHYSICIAN: GORDY MOON MD [address] / [facility] [id number] POTENTIAL DISCHARGE NEEDS: VNA vs Rehab ANTICIPATED BARRIERS TO DISCHARGE: None TRANSPORTATION @ D/C: Jaime will provide transportation PLAN: CM will continue to monitor progress, follow for continuity of care and assist with discharge planning while hospitalized . Jamila Boyd [facility] - 07/25/2015 11:24 AM EST Clinical Pharmacist Note-Vanc Chan Hurst [id number] 1950 Chan Hurst is a 64 y.o. female is being monitored due to antibiotic therapy which includes intravenous vancomycin. Regimen: Vancomycin 1500 mg every 12 hours Indication: empiric coverage of gangrene infection Initiation Date: 07/23 Day of Therapy: 3 Targeted Goal Range: 15 - 20 mcg/mL Pharmacokinetic information: Wt Readings from Last 1 Encounters: 07/24/15 52.7 kg (116 lb 2.9 oz) Ht Readings from Last 1 Encounters: 07/24/15 152.4 cm (5') Labs: Vancomycin: 07/23/2015: Vanc Trough 8.1 mg/L (Ref range: mg/L) 07/25/2015: Vanc Trough 26.8 mg/L* (Critical; Ref range: mg/L) Creatinine clearance: 07/23/2015: Creatinine 0.35 mg/dL* (Low; Ref range: 0.70 - 1.20 mg/dL) 07/24/2015: Creatinine 0.35 mg/dL* (Low; Ref range: 0.70 - 1.20 mg/dL) 07/25/2015: Creatinine 0.91 mg/dL (Ref range: 0.70 - 1.20 mg/dL) Recommendations: Dosing recommendations: Based on this information we will change dosing to pulse dosing. Level supratherapeutic due to tripling of serum creatinine. Obtain another level in 12 hours to assess clearance. We will continue to monitor the patient as long as she remains on vancomycin therapy. Please watch SCr, BUN and fluid status closely. Please page the care area pharmacist with any questions you may have. Alternately, during off-hours you may call [phone] to contact a pharmacist. JAMILA BOYD [facility] Pager [phone] Rachelle López MD - 07/24/2015 5:56 PM EST Post-Operative Progress Note Patient: Chan Hurst s/p Surgery: 07/24/2015 [id number] Procedure(s) (LRB): @AMPUTATION, BELOW-KNEE, OPEN, GUILLOTINE (Left) @EXPLORATION, W/WO LYSIS, FEMORAL ARTERY W\O SURGICAL REPAIR (Left) DRESSING CHANGE (VAC ASSISTED) UP TO 50SQ.CM (Left) REPAIR LOWER EXTREMITY BLOOD VESSEL, DIRECT, NO PATCH OR GRAFT (Left) EXCISION OF INFECTED GRAFT FROM LOWER EXTREMITY (Left) Surgeon(s) and Role: * Elicia Caal MD - Primary * Chela Blancas MD: * Missing case tracking time(s) * * No complications entered in OR log * Subjective/Events: Patient denies chest pain, shortness of breath, dizziness, headache, abdominal pain, nausea, vomiting. Notes mild surgical site pain but otherwise doing well at this time. Is also somewhat drowsy from anesthesia. No other active concerns. Objective: Vitals: Temp: [37.1 ??C (98.8 ??F)] Heart Rate: [76-84] Resp: [10-22] BP: (122-134)/(43-59) SpO2: [94 %-100 %] Intake/Output Summary (Last 24 hours) at 07/24/15 1756 Last data filed at 07/24/15 1730 Gross per 24 hour Intake 3332 ml Output 1200 ml Net 2132 ml Exam: General: NAD, responds to questions appropriately; appears drowsy but comfortable HEENT: PERRLA, EOMI, normocephalic, atraumatic Cardiac: RRR, S1/S2 Resp: Breathing comfortably LLE: stump dressing c/d/i; wound vac in place at groin with intact suction and seal; no hematoma Neuro: No focal deficits. A/P: 64 y.o. year old female POD#0 s/p above procedure. she is having the following post op complications: none - Vitals stable. - continue all post-operative care - Will continue to monitor closely with blowout precautions - Juliano drain site will leak a fair amount; reinforce dressing PRN RACHELLE LÓPEZ MD 07/24/2015 5:56 PM Estrellita Sam RN - 07/24/2015 4:17 PM EST PACU: pt arrived to PACU with a simple face mask on @6L O2. Pt very drowsy but opens eyes. Pt is nowmore alert and answers orientation questions but is still drowsy. FOREST ECOLOGIST reported that pt was slow towake up. Pt has arterial line in place. Surgery was originally planned to be done with LMA and straight forward but turned into an intubated case and was longer than expected d/t findings during the procedure of pus up to left groin. Pt has a wound vac to left groin and is a blow out precaution d/tthe high risk of bleeding from the groin site. Wound vac is to 75mmHg suction with minimal drainage.The left leg is wrapped in kerlix and KENNETH wrap and there is a pinrose drain under these dressings. RN is checking site often to check for bleeding. Pt has been instructed on how to use the dilaudid PCApump and she states that she has used a pain pump before. Pt is currently resting and appears comfortable. When pt is more awake RN will notify family for a visit. 1700: family visited and inquired re: pt's code status. They said that pt didn't want to be coded and RN told family that she was in fact listed as DNR but that it was suspended for the procedure andthat in the even that the pt did code while in PACU, all attempts at resuscitation would be tried because the PACU is still part of the suspended DNR. They were okay with this but wanted to make sure that it would go back to DNR once she was in her room. It was also found that pt had orders placed to be transferred to ISCU level of care, but this was not communicated to the RN upon handoff. A bed request has been placed but the ISCU is currently full and RN is unsure when the pt will have a bed and if she will board in the ICU or will get an ISCU room. Mariano Chapman MD - 07/24/2015 12:06 PM EST INPATIENT DAILY PROGRESS NOTE Patient Name: Chan Hurst Patient Age: 64 y.o. Birthdate: 1950 Admit date: 07/23/2015 Attending Physician: Elicia Caal, * ID: Chan Hurst is a 64 y.o. 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 Patient developed claudication in October 2014, this quickly progressed to rest pain. She underwent SFA to peroneal bypass with vein in 03-18-15. On 05-19-15 this bypass graft was noted to be occluded and her rest pain was persistent. She then underwent a second LLE bypass CLIENT SERVICES ASSOCIATE to PT with PTFE, on 05-26. This was found to be occluded on 06-01. Since that time the patient has had progressive worsening of her medial/distal surgical incision that has failed to heal. Recent events/symptoms: Transferred from [facility] Quite sedated at first due to morphine/ativan given before transport Now alert and communicating. O: Last value Range last 24hrs Temperature Temp: 36.7 ??C (98.1 ??F) Temp: [36.7 ??C (98.1 ??F)-37.3 ??C (99.1 ??F)] Heart Rate Heart Rate: 70 Heart Rate: [69-81] Blood Pressure BP: 105/56 mmHg BP: (105-140)/(55-73) Respiratory Rate Resp: 16 Resp: [-] SpO2 SpO2: 97 % SpO2: [97 %-98 %] 07/23 0701 - 07/24 0700 In: 973 [P.O.:120; I.V.:605] Out: 475 [Urine:475] NPO diet (Give Meds) Physical Exam: General: NAD, A&Ox3, resting in bed, cooperative HEENT: NC/AT CVS: RRR, no m/r/g Pulm: CTAB, no wheezes or rhonchi, breathing comfortably on 2l NC Abd: soft, non-tender, non-distended, no organomegaly, no guarding LLE: Large wound with wet gangrene on medial ankle. Appears to be expose bone. It is malodorous with surrounding erythema. Palpable femoral pulse, unable to doppler or palpate DP/PT Neuro: Grossly intact, nonfocal, moving all four extremities spontaneously. Lines/Drains: Drips: Recent Labs 07/24/15 0503 07/23/152049 WBC 8.9 8.8 HGB 9.3* 9.2* HCT 27.7* 27.0* PLATELET 222 216 Recent Labs 07/24/15 0503 07/23/152049 NA 134* 135 K 3.6 3.5 CL 95* 97* CO2 22 24 BUN 7* 7* CREATININE 0.35* 0.35* GLUCOSE 154 108 CALCIUM 8.0* 8.2* Vascular Studies: TCPO2 05/2015 Left ?Transcutaneous Oxygen Saturation (mmHg) ?? Rt Chest ? 67 ?? 10 cm Above Knee ? 31 ?? 15 cm Below Knee ? 33 ?? ForeFoot ? 3 ASSESSMENT: Chan Hurst is a 64 y.o. female history of multiple revascularization procedures for treatment of LLE CLI who presents now with wet gangrene of the left lower extremity. She has been treated at [facility] since 07/20 with IV Vanc and ceftaz for MRSA and pseudomonas infection in LLE. As there is no further ability to revascularize leg will proceed with guillotine amputation LLE with planned subsequent revision. As above TcP02 are adequate to heal a BKA. PLAN 07/24: 1. Continue IV Vanc/Zosyn 2. OR Today for L guillotine amputation MARIANO MIRAMONTES MD 07/24/2015 Vascular Surgery, PGY-1 Pager: [phone] Estrellita Wilson RN - 07/23/2015 7:49 PM EST Details from [facility] report: -NKDA - Planned BKA tomorrow for nonhealing LLE wound d/t previous 2 attempts of L fem pop bypass (mar & may) Wound is packed with calcium alginate and dry gauze, dressing changed @ 1300 Measurements: 6.5cm L x 2.5cm W x 1.5cm D Black eschar on edges, sanguineous drainage with odor -Wound culture + for MRSA, contact precautions maintained -garnica placed on 07/21 -Last BM on 07/19 per pt, miralax and colace given 07/22, milk of mag and colace on 07/23, no BM yet -30mg PO morphine given @ 1435 today and 1mg IV ativan given in ambulance around 1730 -20mg IV lasix given @ 1100 ( responded with 1200ml out) -PO and IV mag for Mg of 1.3 today -No insulin coverage needed today. Sliding scale with meals and 15 units lantus PM -pulses dopplerable and marked Estrellita Ruiz RN - 07/23/2015 6:49 PM EST Report received form [facility]. Pt admitted to floor via stretcher from ambulance. No family present but reports that is on the way. Pt is A&O x3 but sedated. She requires touch and voice to wake and falls asleep during conversation. Ambulance crew gave the pt 1mg IV ativan during transfer and pt received 30mg PO morphine before departure. Pt denies pain. No SOB. VSS on 2L NC. Garnica intact and has an 18G PIV on R hand, capped. IV team paged to assess access. Smallamount of serosang drainage to LLE dressing. Contact precautions initiated until MD can assess as MRSA was positive in wound at OSH and is not currently contained. MD on floor and notified of pt arrival. Resting quietly in bed. Call aparicio in reach. Handoff to PM RN. documented in this encounter H&P Notes Chela Blancas - 07/23/2015 7:41 PM EST Images from the original note were not included. Vascular Surgery - Admission Note Patient Name: Chan Hurst : [id number] MR#: [id number] 07/23/2015 Hospital Day 0 days HPI: 64yo woman known to our service for prior treatment of LLE CLI (rest pain) who presents now with wet gangrene of the left lower extremity. In short, patient developed claudication in October 2014, this quickly progressed to rest pain. She underwent SFA to peroneal bypass with vein in 03-18-15. On 05-19-15 this bypass graft was noted to be occluded and her rest pain was persistent. She then underwent a second LLE bypass [employer]IENT SERVICES ASSOCIATE to PT with PTFE, on 05-26. This was found to be occluded on 06-01. Since that time the patient has had progressive worsening of her medial/distal surgical incision that has failed to heal. With no additional revasc options she was offered opportunity to enrol in stemcell trial, but declined. 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 On 07-20-15 she present to [facility] with SIRS physiology, felt to be related to her leg wound. She declined transfer to [facility] for amputation at that time and was admitted and started on antibiotics. Today, she has resigned to transfer for further care of her leg wound. Of note, she was growing MRSA and pseudomonas from the wound at the OSH, she has been on ceftazidineand vancomycin. The patient received Morphine 30mg po and Ativan 1mg IV for transport here and is too lethargic to engage for interview at this time. Thus, additional history is from medical records. Review of Systems: unable to obtain Past Medical and Surgical History: Essentially avoided doctors until Jun 2014, when she established a PCP after getting health insurance. DM HTN HLD Depression Allergies: No Known Allergies Prior to Admission Medications: Prescriptions prior to admission Medication Sig Dispense Refill Last Dose ??? oxyCODONE (ROXICODONE) 5 mg Tablet Take 1 tablet by mouth every 6 hours as needed for Pain. 50 tablet 0 ??? gabapentin (NEURONTIN) 300 mg Capsule Take 1 capsule by mouth 3 times daily. One capsule 300 mg in AM and PM. Three (900 mg) capsules at bedtime Indications: Neuropathic Pain 150 capsule 3 ??? sertraline (ZOLOFT) 50 mg Tablet Take [...] 30 tablet 3 Taking atUnknown time ??? metFORMIN (GLUCOPHAGE) 500 mg Tablet Take 1,000 mg by mouth 2 times daily (with meals). Takes 2 bid Taking at Unknown time ??? simvastatin (ZOCOR) 20 mg Tablet Take 20 mg by mouth nightly. Taking at Unknown time ??? lisinopril (PRINIVIL;ZESTRIL) 5 mg Tablet Take 5 mg by mouth daily. Taking at Unknown time ??? acetaminophen (TYLENOL) 325 mg Tablet Take 325 mg by mouth every 4 hours as needed for Pain. Taking at Unknown time Family History: Mother from COPD at 72y. Father at age 72 from [place]. Two sisters, overweight, but otherwise healthy. One brother with PAD, but is also a smoker. Social History and Habits: Never smoker, however prolonged exposure to second- hand smoke. Has been with significant other for 30 years, he is very engaged and supportive. She has no children. Physical Exam: Last Set of Vitals and range of vitals over past 24 hours: Last value Range last 24 hrs Temperature Temp: 37.3 ??C (99.1 ??F) Temp: [37.3 ??C (99.1 ??F)] Heart Rate Heart Rate: 69 Heart Rate: [69] Blood Pressure BP: 106/55 mmHg BP: (106)/(55) Respiratory Rate Resp: 11 Resp: [11] SpO2 SpO2: 97 % SpO2: [97 %] Gen: Asleep, but arousable, NAD. CV: RRR Pulm: CTAB Abd: soft, NT, ND. LLE: first bypass incision well healed aside from very small (<1cm) dry eschar over medial aspectof incision just beneath the knee. There is an appreciable subcutaneous fluid collection (~2-3cm) inthe left groin that is not pulsatile, no surrounding erythema, no drainage. The medial ankle has large wound with wet gangrene and exposed bone. Mild surrounding erythema, although there is some dependent edema and erythema along the posterior calf. + femoral pulse, no pulses distal to this. 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 She is no longer demonstrating septic/SIRS physiology (has been on IV abx for 4 days) and thus does not require emergent amputation. However, she has no remaining options for revascularization to attempt to heal this wound, which is now involving exposed bone. Thus, we will plan for guillotine amputation tomorrow. Plan: - admit to 4W, Dr. Caal - cont IV abx (vanc and zosyn) - IVF - NPO at midnight - close glucose monitoring - amputation tomorrow. CHELA BLANCAS MD 07/23/2015 documented in this encounter Procedure Notes Javier Flores RN - 08/03/2015 11:21 AM ESTAssociated Order(s): PLACE PICC LINE: CONTACT VASCULAR ACCESS PICC/Midline Insertion Procedure Note Indications: Anti-infective This insertion was not to replace a malfunctioning catheter. This insertion was not due to a suspected line-associated infection. Location of Procedure: X-Ray Room 11 Risks and Benefits: The risks and benefits of this procedure were reviewed and informed consent was obtained. Time Out: Prior to the start of the procedure, the patient's identity, intended procedure, site/side, correct patient positioning and presence of the site magen was confirmed as applicable. The medical history and chart were reviewed to rule out potential contraindications to the planned procedure. Hand Hygiene: The rabbit dresser did perform hand hygiene prior to line insertion. Catheter type: PICC Lot number: [id number] Procedure Technique: Skin was prepped with chlorhexidine. Skin preparation agent was completely dry at the time of first skin puncture. The following barrier precaution methods were used:large sterile drape, maske/eye shield, large sterile gown, sterile gloves and cap. 2 ml of 1% Lidocaine was used for skin wheal. Ultrasound was used for guidance. Radiographic contrast agent was not injected for vein identification. Procedure Details: Order received for catheter placement. A 4 Fr. double lumen Bard Power catheter was placed into the right basilic vein over a 0.018 inch guidewire using modified seldinger technique and fluoroscopy. Arm circumference was 23 cm at 2 cm above the insertion site. Final catheter length (with trimming): 35 cm Internal: 35 cm External: 0 cm Tip in SVC per MD RADHA. The line was not placed over a guidewire. Post Procedure: Diagnosis: S/p surergy for diverticulitis. Blood return noted on aspiration of line after placement confirmed. 2 mls of normal saline infused free flowing to gravity via PICC after insertion. Sterile dressing applied: CHG Impregnated Tegaderm. Findings: The patient did tolerate the procedure well. No Complications. Procedure Comments: JAVIER FLORES RN 08/03/2015 documented in this encounter Miscellaneous Notes Plan of Care - Javier Flores RN - 08/03/2015 12:33 PM EST Problem: Health Knowledge, Opportunity for Enhanced (Adult, NICU, , Obstetrics, Pediatric) Goal: Knowledgeable about Health Subject/Topic Patient will demonstrate the desired outcomes. Outcome: Outcome (s) achieved Date Met: 08/03/15 Peripherally Inserted Central Catheter (PICC) Teaching Sheet Peripherally inserted central catheters ([id number]) (PICC) are used when you need IV (intravenous) medicines and fluids. A catheter is a small flexible plastic tube. The catheter is put in through avein under your skin. A vein is a tube inside your body that carries blood from the body to the heart. The catheter is usually put into a vein on the inside of your upper arm. Then it is threaded up this vein and ends in the blood vessel near your heart. The PICC catheter may be used for taking blood for laboratory tests. You may also get IV fluids and medicines quickly and easily. Having the catheter may keep your arm from being stuck many times with a needle. The catheter will have 1-3 small tails (tubes) coming from your arm where the catheter was put in. Why do I need a PICC line or midline catheter? PICC lines are used for detention treatments. PICC lines may be used for up to a year. They are often put in to give you IV medicines at home. You may need a PICC catheter because caregivers cannotuse smaller veins in your body. Smaller veins may be damaged, or they may have poor blood flow. ??? Catheters are also used in case of emergency when you would need medicines or fluids very quickly. ??? The following are medicines and treatments you may get when you have a PICC line. ? Antibiotics. These are medicines to prevent infection. ? Frequent blood sample collection. ? IV medicines that would make your smaller veins sore or damaged. ? Receiving IV fluids for a long period of time. ? Pain medicine. ? Total Parenteral Nutrition: This is also called TPN. TPN is a special liquid food that goes directly into your veins. ? Blood ? Chemotherapy (Medicine for cancer) What are the benefits of having a PICC line put in? Having a PICC line may keep your arm from being stuck many times with a needle to draw blood or start an IV (intravenous catheter) . ??? Through a PICC catheter, you may have blood taken for tests. You may also get IV fluids and medicines quickly and easily. ??? Small veins can be damaged or irritated by certain drugs or nutritional solutions. A PICC line helps to decrease vein irritation from antibiotics, IV pain drugs, or IV cancer drugs. ??? A PICC line can be left in place when you go home. If you go home with a PICC line in place, home care can be set up via the nurse Insole T[employer] Stitcher [employer] to help you. What are possible complications of having a PICC line put in? Some possible complications are: ??? bruising, swelling, or infection in the arm with the PICC line ??? mal-positioned catheter (catheter tip in wrong place) ??? occlusion (blocked catheter) ??? mechanical phlebitis (vein irritation) and thrombosis (clot) Your doctor is the person you should talk to if you have questions about what would happen if you donot choose to have a PICC line put in. Your doctor can talk to you about other choices you may have. What should I expect when it is put in? A written consent that gives your ok to have it put in needs to be signed after you understand that you are going to have a PICC put in, and all your questions about the procedure have been answered toyour satisfaction. This is a safety feature that the hospital practices before doing procedures. An experienced nurse who has been through special training and education will be putting this catheter in. The procedure is done in a specially equipped room in Interventional Radiology on the third floor. The PICC nurse will first talk to you about any questions that you may have. The PICC nurse willexplain to you what is going to be done before starting. Once you arrive in the procedure room in Interventional Radiology, the PICC nurse will then set up for the procedure. She will unwrap the sterile kit and open the needed supplies. A gown and mask and gloves will be worn while putting it in. An ultrasound machine will be used to help guide the catheterin the right place. This machine uses a handle with sound waves to find the vein. The area on your arm where the catheter will be put in is then numbed with a medicine put under yourskin with a tiny needle. The nurse will then put in the catheter using fluoroscopy (a type of x-ray)as a guide. Once the catheter is in your vein, it will be threaded up your arm to the area before your heart. While it is being threaded, you may be asked to turn your head. When the catheter is in, the nurse will place a small dressing on the site along with a little fuentes which will help keep the catheter in place. After the procedure is done, a radiologist (doctor in x-ray department) will look at your x-ray to make sure that the end of the catheter is in proper position to give your fluids and/or medications. What should I expect in the care of my PICC? A dressing that is specially made to prevent infections will be put on. After this, the dressing will only be changed once a week unless it needs it sooner. If you go home with the catheter in, you may take a shower as long as you keep the site dry. You raquel this by wearing a specially fitted PICC protector that will be provided to you before discharge from the hospital. The dressing at the site must be kept clean and dry. It is important that you watch for signs of infection at the site. Your healthcare provider should be notified if these occur: ??? Redness ??? Swelling ??? Pus ??? Pain at the site Other reasons to notify your healthcare provider are: ??? Catheter becomes partially or totally removed ??? Unable to infuse medication/fluid ??? Unable to draw back blood from the catheter. This may be an early sign that a clot is forming onthe end of the catheter. If this occurs, a medicine called Cathflo may be used to dissolve this clot. Ask the PICC nurse or your doctor, any questions you may have so you feel secure in consenting to having a PICC line. References: Vascular Access Device Selection, Insertion, and Management, [employer] Access Systems 04/11. A Review of the Efficacy, Safety, Use, and Administration of Cathflo, [employer] 2005 Plan of Care - Vijaya Sweeney RN - 08/03/2015 4:28 AM EST Problem: General Plan of Care Goal: Plan of Care Review Outcome: Ongoing (Interventions Implemented as Appropriate) 07/29/15 0502 08/02/15 2200 Plan of Care Review Plan of Care Outcome Status ongoing (interventions implemented as appropriate) -- Progress no change -- Coping/Psychosocial Response Interventions Plan of Care Reviewed with -- patient OUTCOME EVALUATION NOTE: OUTCOME SUMMARY: Chan had a good night last night. She was able to sleep throughout the majority of the night. Her pain is well controlled with tylenol and oxycodone. Her pain is mostly located in her sacral area. She has a sacral mepilex on and she has been turned every two hours, with encouragement to move around in bed. Her dressing is clean dry and intact on both the groin area and her stump. The canister waschanged on her wound vac today. Her garnica is putting out adequate amounts of clear yellow urine. Shedoes have +3 edema in her RLE, pulses are palpable. She has had some slight nausea but that is well controlled with zofran. PLAN MOVING FORWARD: Continue to monitor pain, monitor the skin on her sacrum. Turn/reposition every 2 hours. Encourage use of incentive spirometer and movement in bed. INDIVIDUALIZED FALL PREVENTION: Assistance: 2-3 person assist with a walker for ambulation Supervision: 1-2 person assist with ADLs Surveillance: Hourly rounding, masimo CPG OUTCOME EVALUATION: Goal: Individualization and Mutuality Outcome: Ongoing (Interventions Implemented as Appropriate) Goal: Infection Control Outcome: Ongoing (Interventions Implemented as Appropriate) 08/02/15 2100 08/02/15212808/02/152199 Safety Interventions Isolation Precautions standard precautions maintained -- -- Infection Prevention -- blood glucose management;bronchial hygiene promoted;environmental surveillance;hydration promoted;nutrition promoted;promote handwashing;rest/sleep promoted -- Coping/Psychosocial Response Interventions Counseling -- -- calming techniques promoted;emotional support provided;goal setting facilitated Goal: Discharge Needs Assessment Outcome: Ongoing (Interventions Implemented as Appropriate) Problem: Skin Integrity Impairment, Risk/Actual (Adult, Obstetrics) Goal: Identify Signs and Symptoms and Related Risk Factors Signs and symptoms and related risk factors are identified upon initiation of Human Response Clinical Practice Guideline (CPG) Outcome: Ongoing (Interventions Implemented as Appropriate) Goal: Skin Integrity/Wound Healing Patient will demonstrate the desired outcomes. Outcome: Ongoing (Interventions Implemented as Appropriate) 07/25/15 1826 Skin Integrity Impairment, Risk/Actual (Adult, Obstetrics) Skin Integrity/Wound Healing making progress toward outcome Problem: Lower Extremity Amputation (Adult) Goal: Signs and symptoms of listed potential problems will be absent or manageable (reference (LowerExtremity Amputation (Adult)) CPG) Outcome: Ongoing (Interventions Implemented as Appropriate) Problem: Pain, Acute (Adult, Obstetrics) Goal: Acceptable Pain Control/Comfort Level Patient will demonstrate the desired outcomes. Outcome: Ongoing (Interventions Implemented as Appropriate) 07/29/15 0502 Pain, Acute (Adult, Obstetrics) Acceptable Pain Control/Comfort Level making progress toward outcome Plan of Care - Bree Hermosillo RN - 08/02/2015 5:12 PM EST Problem: General Plan of Care Goal: Plan of Care Review Outcome: Ongoing (Interventions Implemented as Appropriate) 07/29/15 0502 08/02/15 0830 Plan of Care Review Plan of Care Outcome Status ongoing (interventions implemented as appropriate) -- Progress no change -- Coping/Psychosocial Response Interventions Plan of Care Reviewed with -- patient;family Goal: Individualization and Mutuality Outcome: Ongoing (Interventions Implemented as Appropriate) 07/24/15 0424 Mutuality/Individual Preferences What anxieties, fears or concerns do you have about your health or care? nothing verbalized What questions do you have about your health or care? nothing verbalized What information would help us give you more personalized care? none verbalized Goal: Infection Control Outcome: Ongoing (Interventions Implemented as Appropriate) 08/01/15195708/02/15 0830 Safety Interventions Isolation Precautions standard precautions maintained -- Infection Prevention blood glucose management;bronchial hygiene promoted;environmental surveillance;hydration promoted;nutrition promoted;promote handwashing;rest/sleep promoted -- Coping/Psychosocial Response Interventions Counseling -- personal strengths integrated;reassurance provided;understanding of situation facilitated;verbalization of feelings encouraged Goal: Discharge Needs Assessment Outcome: Ongoing (Interventions Implemented as Appropriate) 07/29/15 0502 Discharge Needs Assessment Concerns to be Addressed adjustment to diagnosis/illness concerns Readmission Within the Last 30 Days no previous admission in last 30 days Equipment Needed After Discharge none Current Health Anticipated Changes Related to Illness none Self-Care Equipment Currently Used at Home none Living Environment Transportation Available family or friend will provide Problem: Skin Integrity Impairment, Risk/Actual (Adult, Obstetrics) Intervention: Pressure Reduction Devices 08/01/152029 Skin Interventions Pressure Reduction Devices pressure-redistributing mattress utilized Intervention: Pressure Reduction Techniques 08/01/152029 Skin Interventions Pressure Reduction Techniques heels elevated off bed;positioned off wounds;pressure points protected;skin to skin areas padded;skin to device areas padded;tubing/devices free from under/on patient;turnsheet used;turned/repositioned (LLE remains extended. No pillow beneath) Intervention: Oral Nutrition Promotion 08/01/15 0805 Nutrition Interventions Oral Nutrition Promotion diet liberalized Intervention: Skin/Mucous Membrane Protection 08/01/152029 Skin Interventions Skin/Mucous Membrane Protection adhesive use limited;age appropriate skin cleansing provided;incontinence pad utilized;lip lubricant applied;oral rinse provided;positioned off wounds;pressure points protected;sacral silicone foam dressing;tubing/devices free from under/on patient Intervention: Wound Healing Promotion 08/01/152029 Skin Interventions Wound Healing Promotion adequate fluids provided;glycemic control maintained;normothermia maintained;oral hygiene provided;perfusion maximized;sleep/rest promoted Goal: Identify Signs and Symptoms and Related Risk Factors Signs and symptoms and related risk factors are identified upon initiation of Human Response Clinical Practice Guideline (CPG) Outcome: Ongoing (Interventions Implemented as Appropriate) 07/26/15 1840 Skin Integrity Impairment, Risk/Actual Personal Related Risk Factors (Skin Integrity Impairment, Risk/Actual) stress Treatment Related Related Risk Factors (Skin Integrity Impairment, Risk/Actual) invasive catheters;medication;surgery Goal: Skin Integrity/Wound Healing Patient will demonstrate the desired outcomes. Outcome: Ongoing (Interventions Implemented as Appropriate) 07/25/15 1826 Skin Integrity Impairment, Risk/Actual (Adult, Obstetrics) Skin Integrity/Wound Healing making progress toward outcome Problem: Lower Extremity Amputation (Adult) Intervention: Hemostasis Promotion 07/26/15799 Cardiac Interventions Hemostasis Promotion other (see comments) (vac dressing) Intervention: Hemodynamic Stabilization 08/01/152021 Cardiac Interventions Hemodynamic Stabilization antihypertensive medication management;HOB elevated;legs elevated;quiet environment promoted Intervention: O2 Consumption Minimization 07/28/15799 Cardiac Interventions O2 Consumption Minimization activity scheduled;activity adjusted to patient tolerance;low stimulation maintained;sleep/rest promoted Intervention: Functional Juda Promotion 08/01/152021 Musculoskeletal Interventions Functional Juda Promotion adaptive equipment provided;independence in BADLs promoted;instruction for safe use of adaptive equipment provided;mobility promoted;patient modesty maintained;personal routines for BADL/IADL promoted Intervention: Self-Care Promotion 08/01/152021 Musculoskeletal Interventions Self-Care Promotion assistance provided to decrease frustration;grooming assistance provided;hygieneassistance provided;independence encouraged while providing assistance;personal routines for BADL/IADL promoted Intervention: Positioning, Soft Dressing: Lower Extremity Amputation 08/01/152021 Musculoskeletal Interventions Positioning, Soft Dressing: Lower Extremity Amputation direct weight bearing on residual limb avoided;elastic bandage applied for residual limb shaping;full hip extension maintained (AKA) Goal: Signs and symptoms of listed potential problems will be absent or manageable (reference (LowerExtremity Amputation (Adult)) CPG) Outcome: Ongoing (Interventions Implemented as Appropriate) 07/26/15 18407/29/15 0502 Lower Extremity Amputation Problems Assessed (Lower Extremity Amputation) all -- Problems Present (Lower Extremity Amputation) -- acute pain Problem: Pain, Acute (Adult, Obstetrics) Intervention: Pain Management Interventions 08/01/15 0805 Pain/Comfort Interventions Pain Management Interventions multimodal measures utilized Goal: Acceptable Pain Control/Comfort Level Patient will demonstrate the desired outcomes. Outcome: Ongoing (Interventions Implemented as Appropriate) 01/22/16 0502 Pain, Acute (Adult, Obstetrics) Acceptable Pain Control/Comfort Level making progress toward outcome Comments: OUTCOME EVALUATION NOTE: OUTCOME SUMMARY: Pt in bed most this shift with frequent repositioning. Multiple visitors present today. Pt awake, A+Ox4, denies any pain, but states the bed is uncomfortable. Pt received 1 unit PRBCs this shift; tolerated it well. Pt did work with PT/OT and did a stand and pivot to chair. Pt sat in chair for short while and wanted to have bowel movement on commode. 3 assist stand and pivot with walker to commode andthen to bed; pt tolerated well. Pt BGLs this shift have required sliding scale coverage. Garnica remains patent draining clear yellow urine. 24 hour urine collection completed and sent to lab as ordered.Appetite remains poor. Dressing to left stump reamins CDI. VSS PLAN MOVING FORWARD: PT/OT, BGL monitoring, D/C to SNF INDIVIDUALIZED FALL PREVENTION: Assistance: 2-3 assist with walker Supervision: Call aparicio in reach Surveillance: Masimo, bed/chair alarm, hourly rounding CPG GOAL OUTCOME EVALUATION: Plan of Care - Ashleigh Childers RN - 08/01/2015 5:03 PM EST Problem: General Plan of Care Goal: Plan of Care Review Outcome: Ongoing (Interventions Implemented as Appropriate) 07/29/15 0502 08/01/15 0805 Plan of Care Review Plan of Care Outcome Status ongoing (interventions implemented as appropriate) -- Progress no change -- Coping/Psychosocial Response Interventions Plan of Care Reviewed with -- patient OUTCOME EVALUATION NOTE: OUTCOME SUMMARY: Chan started the shift very lethargic, taking her name and a touch to wake her each time care was provided. She was however oriented as she was able to answer all the questions logically that were asked of her. Going to the commode this morning she felt very weak and needed the 2 assistants to carry much of her weight after her pivot. Midmorning she perked up and was able to have full conversations with her sister who was at the bedside, the PT/OT who worked with her and this RN. PT stated that she did well this afternoon. Her family was either present or calling to check in on her for much of the day. Her BG has been over 200 at every check today. She has only eaten 25% of her meals so far. She is currently having a creatinine clearance test done with a 24 hour urine that was started at 1230today after her XR. She is currently resting comfortably and will be monitored for the remainder of this shift. PLAN MOVING FORWARD: Continue to work on mobility in bed, pain control after activity. Monitor skin integrity and orientation. INDIVIDUALIZED FALL PREVENTION: Assistance: Heavy 2 assist with walker. Supervision: 1 assist with ADL's. Surveillance: Masimo, purposeful rounding, call aparicio in reach. CPG OUTCOME EVALUATION: Goal: Individualization and Mutuality Outcome: Ongoing (Interventions Implemented as Appropriate) 07/24/15 0424 Mutuality/Individual Preferences What anxieties, fears or concerns do you have about your health or care? nothing verbalized What questions do you have about your health or care? nothing verbalized What information would help us give you more personalized care? none verbalized Goal: Infection Control Outcome: Ongoing (Interventions Implemented as Appropriate) 08/01/15 0805 Safety Interventions Isolation Precautions standard precautions maintained Infection Prevention blood glucose management Coping/Psychosocial Response Interventions Counseling calming techniques promoted Goal: Discharge Needs Assessment Outcome: Ongoing (Interventions Implemented as Appropriate) 07/29/15 0502 Discharge Needs Assessment Concerns to be Addressed adjustment to diagnosis/illness concerns Readmission Within the Last 30 Days no previous admission in last 30 days Equipment Needed After Discharge none Current Health Anticipated Changes Related to Illness none Self-Care Equipment Currently Used at Home none Living Environment Transportation Available family or friend will provide Problem: Skin Integrity Impairment, Risk/Actual (Adult, Obstetrics) Goal: Identify Signs and Symptoms and Related Risk Factors Signs and symptoms and related risk factors are identified upon initiation of Human Response Clinical Practice Guideline (CPG) Outcome: Ongoing (Interventions Implemented as Appropriate) 07/26/15 1840 Skin Integrity Impairment, Risk/Actual Personal Related Risk Factors (Skin Integrity Impairment, Risk/Actual) stress Treatment Related Related Risk Factors (Skin Integrity Impairment, Risk/Actual) invasive catheters;medication;surgery Goal: Skin Integrity/Wound Healing Patient will demonstrate the desired outcomes. Outcome: Ongoing (Interventions Implemented as Appropriate) 07/25/15 1826 Skin Integrity Impairment, Risk/Actual (Adult, Obstetrics) Skin Integrity/Wound Healing making progress toward outcome Problem: Lower Extremity Amputation (Adult) Goal: Signs and symptoms of listed potential problems will be absent or manageable (reference (LowerExtremity Amputation (Adult)) CPG) Outcome: Ongoing (Interventions Implemented as Appropriate) 07/26/15 1840 07/29/15 0502 Lower Extremity Amputation Problems Assessed (Lower Extremity Amputation) all -- Problems Present (Lower Extremity Amputation) -- acute pain Plan of Care - Vijaya Sweeney RN - 08/01/2015 5:23 AM EST Problem: General Plan of Care Goal: Plan of Care Review Outcome: Ongoing (Interventions Implemented as Appropriate) 07/29/15 0502 07/31/15 230 Plan of Care Review Plan of Care Outcome Status ongoing (interventions implemented as appropriate) -- Progress no change -- Coping/Psychosocial Response Interventions Plan of Care Reviewed with -- patient OUTCOME EVALUATION NOTE: OUTCOME SUMMARY: Chan had a good night last night. She has been up to the commode to try and void, twice, with nosuccess . A garnica was placed at approximately 0130. Her pain is well controlled. She denies any nausea. At approximately 2100 her blood sugar was 235. MD Mercer was notified and no action was taken. Cdiff was ruled out and contact precautions . PLAN MOVING FORWARD: Continue to monitor pain. INDIVIDUALIZED FALL PREVENTION: Assistance: Heavy two person turn and pivot to commode. Supervision: 1 person assist with ADLs Surveillance: Hourly rounding, masimo CPG OUTCOME EVALUATION: Goal: Individualization and Mutuality Outcome: Ongoing (Interventions Implemented as Appropriate) Goal: Infection Control Outcome: Ongoing (Interventions Implemented as Appropriate) 07/31/15 22007/31/15 230 Safety Interventions Isolation Precautions standard precautions maintained;contact precautions discontinued -- Infection Prevention -- blood glucose management;bronchial hygiene promoted;environmental surveillance;hydration promoted;nutrition promoted;promote handwashing;rest/sleep promoted Coping/Psychosocial Response Interventions Counseling -- calming techniques promoted;emotional support provided;goal setting facilitated Goal: Discharge Needs Assessment Outcome: Ongoing (Interventions Implemented as Appropriate) Problem: Skin Integrity Impairment, Risk/Actual (Adult, Obstetrics) Goal: Identify Signs and Symptoms and Related Risk Factors Signs and symptoms and related risk factors are identified upon initiation of Human Response Clinical Practice Guideline (CPG) Outcome: Ongoing (Interventions Implemented as Appropriate) Goal: Skin Integrity/Wound Healing Patient will demonstrate the desired outcomes. Outcome: Ongoing (Interventions Implemented as Appropriate) 07/25/15 1826 Skin Integrity Impairment, Risk/Actual (Adult, Obstetrics) Skin Integrity/Wound Healing making progress toward outcome Problem: Lower Extremity Amputation (Adult) Goal: Signs and symptoms of listed potential problems will be absent or manageable (reference (LowerExtremity Amputation (Adult)) CPG) Outcome: Ongoing (Interventions Implemented as Appropriate) 07/26/15 1840 07/29/15 0502 Lower Extremity Amputation Problems Assessed (Lower Extremity Amputation) all -- Problems Present (Lower Extremity Amputation) -- acute pain Problem: Pain, Acute (Adult, Obstetrics) Goal: Acceptable Pain Control/Comfort Level Patient will demonstrate the desired outcomes. Outcome: Ongoing (Interventions Implemented as Appropriate) 07/29/15 0502 Pain, Acute (Adult, Obstetrics) Acceptable Pain Control/Comfort Level making progress toward outcome Initial Assessments - Debi Dubon OT - 07/31/2015 5:16 PM EST Occupational Therapy Evaluation Patient profile: Chan Hurst is a 64 y.o. female patient of Elicia Rivera, *, admitted on 07/23/2015 with wet gangrene of the left lower extremity. ? 07-24-15: OR Procedure(s): 1. Left below-knee guillotine amputation 2. Incision and drainage of multiple LLE abscesses 3. Left common femoral artery exposure, debridement and repair with bovine pericardial patch. 4. Ligation and removal of thrombosed, infected left CLIENT SERVICES ASSOCIATE-PT PTFE bypass graft. ?? 5. Placement of wound vac. 07-27-15 OR procedure(s): 1. Left groin excisional debridement using Metzenbaum scissors. 2. Irrigation of excised LLE bypass tunnel. 3. Left Sartorious flap coverage of patched femoral artery. 4. Left groin wound vac placement. Taken back to surgery: 07/29/15 OR Procedure(s): 1. Left AKA. 2. Left groin wound vac change. Past Medical History Diagnosis Date ??? HTN (hypertension) ??? DM (diabetes mellitus) metformin ??? Hypercholesterolemia ??? PVD (peripheral vascular disease) ??? HLD (hyperlipidemia) 03/24/2015 Past Surgical History Procedure Laterality Date ??? Skin graft Left left 2nd metacarpal ??? Pro vein bypass graft, fem-tibial Left 03/18/2015 @BYPASS GRAFT, FEM.-ANT. TIB, POST. TIB, PERONEAL, DP W\ VEIN CONDUIT ([place] [address]) performed by Mariano Doyle MD at [facility] OR ??? Pro bypass graft othr, fem-tibial Left 05/26/2015 @BYPASS GRAFT, FEM-ANT TIBIAL, -POST TIBIAL, -PERONEAL, -DP W\ SYNTHETIC CONDUIT performed by Mariano Doyle MD at [facility] OR ??? Pro bypass graft vein patch/cuff, synthetic Left 05/26/2015 PLACEMENT VEIN PATCH OR CUFF AT DISTAL ANASTOMOSIS OF BYPASS GRAFT, SYNTHETIC CONDUIT , RODRIGUEZ-COLLAR, RACHELLE-PATCH, ADD-ON CODE, LOWER EXTREMITY performed by Mariano Doyle MD at [facility] OR ??? Pro thromboendartectmy iliofemoral Left 05/26/2015 @ENDARTERECTOMY, ILIOFEMORAL W OR W/O PATCH GRAFT performed by Mariano Doyle MD at [facility] OR ??? Pro reoperation, bypass graft Left 05/26/2015 @RE-OP FOR RE-DO LOWER EXTREMITY BYPASS GRAFT, >1 MONTH P\ ORIGINAL SURGERY, ADD-ON CODE performed by Mariano Doyle MD at [facility] OR ??? Pro amputation low leg, circular Left 07/24/2015 @AMPUTATION, BELOW-KNEE, OPEN, GUILLOTINE performed by Elicia Caal MD at [facility] OR ??? Pro exploration, femoral artery Left 07/24/2015 @EXPLORATION, W/WO LYSIS, FEMORAL ARTERY W\O SURGICAL REPAIR performed by Elicia Caal MD at [facility] OR ??? Pro negative pressure wound therapy, less than or equal to 50 sqcm Left 07/24/2015 DRESSING CHANGE (VAC ASSISTED) UP TO 50SQ.CM performed by Elicia Caal MD at [facility] OR ??? Pro rebl ves direct, low extrem Left 07/24/2015 REPAIR LOWER EXTREMITY BLOOD VESSEL, DIRECT, NO PATCH OR GRAFT performed by Elicia Caal MD at [facility] OR ??? Pro excision, infec graft, extremity Left 07/24/2015 EXCISION OF INFECTED GRAFT FROM LOWER EXTREMITY performed by Elicia Caal MD at [facility] OR ??? Pro muscle-skin flap, leg Left 07/27/2015 FLAP, MYOCUTANEOUS OR FASCIOCUTANEOUS, LOWER EXTREMITY performed by Elicia Caal MD at [facility] OR ? ? Pro debridement subcutaneous tissue 20 sqcm/< Left 07/27/2015 DEBRIDEMENT SKIN AND SUBCU, LOWER EXTREMITY performed by Elicia Caal MD at [facility] OR ??? Left 07/27/2015 MODIFIER WOUND VAC performed by Elicia Caal MD at [facility] OR Social History: Patient lives with her boyfriend, who works outside the home, and her cat Britany Del Rosario Home Setup: ramp, one level, doesn't need to access basement. DME: walker, cane, raised toilet seat with arms Baseline ADL/Mobility: Independent with ADL???s. NO longer working Code Status: DNR/DNI Activity Orders: as tolerated Precautions: Contact, wound vac, L AKA, slide board transfers to patient's right side. Fall Subjective: Do I lie on the floor and you wheel me to the bathroom? Objective: Seen today for OT evaluation. Seen in collaboration with PT Cognition/Behavior: alert, wifty. Some times right on, then became tangential. Appeared to have difficulty following some directions. Pleasant and cooperative Communication: tangential as session progressed Vision & Perception: wears bifocals Range of motion, strength, coordination: Bilateral UEs are within functional limitations for basic ADL Sensation: intact Activities of Daily Living: Self-feeding ?? indep Grooming / Bathing ?? anticipate indep after set up UB / LB dressing ?? dependent to don right slipper Toileting ?? Had transferred to [facility] earlier with nursing IADLs: ?? Will need assist Functional Mobility: ?? Supine to sit: mod-max assist HOB elevated, use of linens/.bed rail. Was able to use arms to scoot hips to EOB Slide board transfer to recliner: dependent to place board. Mod assist x2 with linens, step by stepcueing. Able to reposition self in recliner Balance: ?? Sitting: initially min-mod assist, then fair with close supervision ?? Standing: N/A Endurance: Information taken from last recorded vitals in flowsheet. Last value Range last 8 hrs Heart Rate Heart Rate: 81 Heart Rate: [81-83] Blood Pressure BP: 136/60 mmHg BP: (136-143)/(60-67) SpO2 SpO2: 90 % SpO2: [90 %-94 %] poor Pain: Intermittent spasms L upper thigh. As session progressed, more /co pian in L residual limb, particularly with movement Skin: L AKA Informed Consent: The patient agrees to and understands the OT treatment plan and goals. Education: patient educated on Role of occupational therapy/rehabilitation, Transfers, Positioning, Safety, Balance, Recommendations and slide board transfers and verbalizes, demonstrates and needs reinforcement. Patient status, treatment, and mobility recommendations discussed with nursing. Pt being transferredto private room due to contact precautions Assessment: Pt has been seen by OT for evaluation, and she presents with impaired ability to performdaily activities and functional mobility secondary to L AKA, decreased sitting and standing balance,decreased activity tolerance, generalized weakness and deconditioning. Pt will benefit from structured rehab setting at discharge. Pt would benefit from ongoing OT services to maximize functional independence. Discharge Recommendations: Patient would benefit from structured rehab setting at discharge Equipment needs at discharge: drom arm commode, tub transfer bench Daily Schedule / Staff Recommendations: Encourage OOB activity and participation in self-care activities. Goals: To be achieved by 08/07/15 ?? Pt will sit EOB for 10 minutes for functional activities with set up, superversion ?? Pt will be min assist with slide board transfers to recliner and bariatric commode ?? Pt will be indep for UE ADLs ?? Pt will be min assist with walker sit to stand from bed ?? Pt will be min assist with walker stand pivot transfers to commode and recliner Plan: Pt to be seen 3-4 x per week for therapy including Transfers, Assistive device/technique, ADL,Positioning, Safety, Precautions/Protocol, Activity pacing/Energy conservation, Balance, Recommendations and Discharge planning Eval Date: 07/31/2015 Total time spent with patient: 55 minutes Total timed interventions: 0 minutes Pager: [phone] DEBI DUBON OT 07/31/2015 Occupational Therapy Rehabilitation Department Op Note - Juliano Allen - 07/29/2015 2:00 PM EST [facility] Operative Note Patient Name: Chan Hurst : 1950 MR#: [id number] Case Date: 07/29/2015 Date of Operation: 07/29/2015. Surgeon(s) and Role: * Elicia Caal MD - Primary * Juliano Allen MD - Resident-Surgeon Kelvin Preoperative Diagnosis: LLE CLI and groin infection status post graft explant. Postoperative Diagnosis: Same. Procedure: 1. Left AKA. 2. Left groin wound vac change. Findings: Initially noted some purulence from calf tunnel so performed through knee amputation.?? However after this was performed we noted that the proximal thigh tunnel was clean with no evidence of residual infection, so performed AKA.?? Skin closed with vertical mattress sutures of 3-0 nylon, gapsleft between sutures to allow for egress of any residual fluid.?? Dressed with gauze and KENNETH.?? Leftgroin Sartorious flap appeared excellent, with no exposed vessels or evidence of infection. Irrigated and then two pieces of black sponge applied. Anesthesia: General LMA anesthesia Estimated Blood Loss: 100 mL Urine Output: 375 mL. Intravenous Fluid: 600 mL. Drains/Lines: Garnica catheter, arterial line, pivs Specimens: Leg to path. Indications for Procedure:? Chan Hurst is a 64 y.o. female who presents having undergone a left lower extremity prostheticgraft explantation for infection, debridement of the femoral artery and then bovine pericardial patch repair of the left femoral artery. She now is undergoing serial washouts and debridements in the OR. Procedure in Detail: The patient was correctly identified in the Preprocedure Holding Area.?? After a discussion of the risks, benefits and alternatives of the procedure and after answering all of the patients questions, the patient wished to proceed and then was consented for the operation.?? The patient was brought back to the Operating Room and placed supine on the operating table. She was intubated by the Anesthesia Service without difficulty. A radial arterial line and a Garnica catheter was already in place, and the patient was then prepped and draped in the standard sterile fashion using an iodine solution. Scheduled antibiotics had already been administered, and a full standard time out was c ompleted prior to initiating the procedure. We began by performing a left through knee amputation. An incision was carried down to the knee joint with a scalpel and electrocautery. The femoral vessels and nerves were each ligated using 2-0 silk,utilizing a suture ligature for the artery. We then noted, as above, that the thigh appeared clean and free of infection, we therefore elected to perform an AKA. We created an incision in a fish mouth pattern around the distal thigh. The incision was carried down into the deep subcutaneous tissue witha combination of electrocautery and a no. 10 scalpel. We further dissected through the various muscles and tendinous structures using electrocautery. Of note, the muscles of all compartments demonstrated good twitch with electrocautery stimulation. The SFA and femoral vein were identified, cut, and tied using a 2-o silk suture ligature. The sciatic nerve was identifed, clamped, tied with 2-o silk anddivided. The femur was circumferentially freed from surrounding tissues using a laparotomy pad to elevate the periosteum and a Gigli saw to transect the bone. The wound was then copiously irrigated. 3-o Vicryl sutures were used to obtain hemostasis. Hemostasis was noted to be excellent. We then used interrupted 2-0 Vicry stitches to first approximate the muscle around the transected femur and then the fascial layers around the muscles. The skin was closed with interrupted 3-o Nylon vertical mattresssutures loosely to allow egress of any fluid. The wound was then dressed a xeroform, gauze, Kerlix and an KENNETH bandage. We then turned our attention the the left groin wound. We noted that the Sartorious flap appeared excellent with no exposed vessels or evidence of residual infection. The wound was then copiously irrigated and then two pieces of black sponge used to fill the wound. It was then connected to -125 mmHg of suction. All sponge and instrument counts were correct at the end of the procedure. Dr. Caal, the attending surgeon of record, was present and scrubbed for the duration of the procedure. Disposition: awakened from anesthesia, extubated and taken to the recovery room in a stable condition, having suffered no apparent untoward event. Condition: doing well without problems Associated attestation - Elicia Caal MD - 08/01/2015 7:17 AM EST Attestation: Case Date: 07/29/2015 I was present and scrubbed for the entire procedure. ELICIA CAAL MD 08/01/2015 Brief Op Note - Juliano Allen - 07/29/2015 1:54 PM EST Brief Operative Note Patient Name: Chan Hurst : [id number] MR#: [id number] Case Date: 07/29/2015 Surgeon: Surgeon(s) and Role: * Elicia Caal MD - Primary * Juliano Allen MD - Resident-Surgeon Kelvin Preoperative diagnosis: LLE infection Postoperative diagnosis: Same. Procedure(s): 1. Left AKA. 2. Left groin wound vac change. Anesthesia: GETA Findings: Initially noted some purulence from calf tunnel so performed through knee amputation. However after this was performed we noted that the proximal thigh tunnel was clean with no evidence of residual infection, so performed AKA. Skin closed with vertical mattress sutures of 3-0 nylon, gaps left between sutures to allow for egress of any residual fluid. Dressed with gauze and KENNETH. Left groin Sartorious flap appeared excellent, with no exposed vessels or evidence of infection. Irrigated and then two pieces of black sponge applied. Complications: None. Fluids: 600 mL Estimated Blood Loss: 100 mL Drains: Drain/Device Site 07/24/15 Left medial calf [place] (Active) Insertion Site dressing intact 07/29/2015 8:00 AM Drainage Characteristics/Odor serosanguineous 07/29/2015 8:00 AM Drainage Amount small 07/29/2015 8:00 AM General Output (mL) 0 07/26/2015 4:00 AM Drain/Device Site 07/27/15 Left groin (Active) Insertion Site clean and dry;dressing intact 07/29/2015 8:00 AM Drain Device Number VAC 07/29/2015 8:00 AM Drainage Characteristics/Odor serous 07/29/2015 8:00 AM Drainage Amount small 07/29/2015 8:00 AM Pressure Setting (Negative Pressure Wound Therapy) 125 mmHg 07/29/2015 8:00 AM Dressing (Negative Pressure Wound Therapy) foam, black 07/29/2015 8:00 AM General Output (mL) 50 07/29/2015 8:00 AM Disposition: awakened from anesthesia, extubated and taken to the recovery room in a stable condition, having suffered no apparent untoward event. Condition: doing well without problems Infection Bundle used? N/A Plan of Care - Mala Clark RN - 07/29/2015 5:22 AM EST Problem: General Plan of Care Goal: Plan of Care Review Outcome: Ongoing (Interventions Implemented as Appropriate) 07/29/15 0502 Plan of Care Review Plan of Care Outcome Status ongoing (interventions implemented as appropriate) Progress no change Coping/Psychosocial Response Interventions Plan of Care Reviewed with patient OUTCOME EVALUATION NOTE: OUTCOME SUMMARY: Patient has been stable overnight. Pain well controlled with HYDRAMATIC SPECIALIST pump and PRN tylenol and oxycodone.She did complain of some pain in her amputated leg while being repositioned. I encouraged her to push her HYDRAMATIC SPECIALIST button to receive pain medication. NPO for OR today. PLAN MOVING FORWARD: OR today for washout of LLE/ INDIVIDUALIZED FALL PREVENTION: Assistance: Bedrest Supervision: Call aparicio within reach Surveillance: Continuous telemetry/pulse oximetry CPG GOAL OUTCOME EVALUATION: Goal: Individualization and Mutuality Outcome: Ongoing (Interventions Implemented as Appropriate) Goal: Fall Prevention-Safe Patient Handling Outcome: Revised Date Met: 07/29/15 Goal: Infection Control Outcome: Ongoing (Interventions Implemented as Appropriate) 07/29/15 0502 Safety Interventions Isolation Precautions standard precautions maintained Infection Prevention blood glucose management;nutrition promoted;rest/sleep promoted Coping/Psychosocial Response Interventions Counseling calming techniques promoted;emotional support provided Goal: Discharge Needs Assessment Outcome: Ongoing (Interventions Implemented as Appropriate) 07/29/15 0502 Discharge Needs Assessment Concerns to be Addressed adjustment to diagnosis/illness concerns Readmission Within the Last 30 Days no previous admission in last 30 days Equipment Needed After Discharge none Current Health Anticipated Changes Related to Illness none Self-Care Equipment Currently Used at Home none Living Environment Transportation Available family or friend will provide Problem: Skin Integrity Impairment, Risk/Actual (Adult, Obstetrics) Goal: Identify Signs and Symptoms and Related Risk Factors Signs and symptoms and related risk factors are identified upon initiation of Human Response Clinical Practice Guideline (CPG) Outcome: Ongoing (Interventions Implemented as Appropriate) Goal: Skin Integrity/Wound Healing Patient will demonstrate the desired outcomes. Outcome: Ongoing (Interventions Implemented as Appropriate) Problem: Lower Extremity Amputation (Adult) Goal: Signs and symptoms of listed potential problems will be absent or manageable (reference (LowerExtremity Amputation (Adult)) CPG) Outcome: Ongoing (Interventions Implemented as Appropriate) 07/29/15 0502 Lower Extremity Amputation Problems Present (Lower Extremity Amputation) acute pain Problem: Pain, Acute (Adult, Obstetrics) Goal: Identify Signs and Symptoms and Related Risk Factors Signs and symptoms and related risk factors are identified upon initiation of Human Response Clinical Practice Guideline (CPG) Outcome: Outcome (s) achieved Date Met: 07/29/15 Goal: Acceptable Pain Control/Comfort Level Patient will demonstrate the desired outcomes. Outcome: Ongoing (Interventions Implemented as Appropriate) 07/29/15 0502 Pain, Acute (Adult, Obstetrics) Acceptable Pain Control/Comfort Level making progress toward outcome Consult Note - Donya Awad MD - 07/28/2015 12:58 PM EST HYPERTENSION/ NEPHROLOGY CONSULT PATIENT: Chan Hurst : 1950 REASON FOR CONSULTATION: worsening of creat referred by Dr. Caal HPI: 64 y.o. female with PMHx significant for poorly controlled DM, HTN PVD, LLE bypass surgeries including SFA to peroneal bypass presented this time with wet gangrene of her left lower extremity. She was transferred from OSH where she was initially managed with iv vancomycin and ceftazidime, wound cx reportedly revealed MRSA and pseudomonas. she was transferred to [facility] for further evaluation and underwent BKA of left LE. No known renal Hx. Hx of advil/motrin and other NSAID intake frequesntly. Hx of any LE edema. Pt seen in her room feeling lethargic and tired but otherwise no other s/s. Past Medical History Diagnosis Date ??? HTN (hypertension) ??? DM (diabetes mellitus) metformin ??? Hypercholesterolemia ??? PVD (peripheral vascular disease) ??? HLD (hyperlipidemia) 03/24/2015 Past Surgical History Procedure Laterality Date ??? Skin graft Left left 2nd metacarpal ??? Pro vein bypass graft, fem-tibial Left 03/18/2015 @BYPASS GRAFT, FEM.-ANT. TIB, POST. TIB, PERONEAL, DP W\ VEIN CONDUIT ([place] [address]) performed by Mariano Doyle MD at [facility] OR ??? Pro bypass graft othr, fem-tibial Left 05/26/2015 @BYPASS GRAFT, FEM-ANT TIBIAL, -POST TIBIAL, -PERONEAL, -DP W\ SYNTHETIC CONDUIT performed by Mariano Doyle MD at [facility] OR ??? Pro bypass graft vein patch/cuff, synthetic Left 05/26/2015 PLACEMENT VEIN PATCH OR CUFF AT DISTAL ANASTOMOSIS OF BYPASS GRAFT, SYNTHETIC CONDUIT , RODRIGUEZ-COLLAR, RACHELLE-PATCH, ADD-ON CODE, LOWER EXTREMITY performed by Mariano Doyle MD at [facility] OR ??? Pro thromboendartectmy iliofemoral Left 05/26/2015 @ENDARTERECTOMY, ILIOFEMORAL W OR W/O PATCH GRAFT performed by Mariano Doyle MD at [facility] OR ??? Pro reoperation, bypass graft Left 05/26/2015 @RE-OP FOR RE-DO LOWER EXTREMITY BYPASS GRAFT, >1 MONTH P\ ORIGINAL SURGERY, ADD-ON CODE performed by Mariano Doyle MD at [facility] OR ??? Pro amputation low leg, circular Left 07/24/2015 @AMPUTATION, BELOW-KNEE, OPEN, GUILLOTINE performed by Elicia Caal MD at [facility] OR ??? Pro exploration, femoral artery Left 07/24/2015 @EXPLORATION, W/WO LYSIS, FEMORAL ARTERY W\O SURGICAL REPAIR performed by Elicia Caal MD at [facility] OR ??? Pro negative pressure wound therapy, less than or equal to 50 sqcm Left 07/24/2015 DRESSING CHANGE (VAC ASSISTED) UP TO 50SQ.CM performed by Elicia Caal MD at [facility] MA[facility] OR ??? Pro rebl ves direct, low extrem Left 07/24/2015 REPAIR LOWER EXTREMITY BLOOD VESSEL, DIRECT, NO PATCH OR GRAFT performed by Elicia Caal MD at [facility] OR ??? Pro excision, infec graft, extremity Left 07/24/2015 EXCISION OF INFECTED GRAFT FROM LOWER EXTREMITY performed by Elicia Caal MD at [facility] MA[facility] OR ??? Pro muscle-skin flap, leg Left 07/27/2015 FLAP, MYOCUTANEOUS OR FASCIOCUTANEOUS, LOWER EXTREMITY performed by Elicia Caal MD at [facility] OR ? ? Pro debridement subcutaneous tissue 20 sqcm/< Left 07/27/2015 DEBRIDEMENT SKIN AND SUBCU, LOWER EXTREMITY performed by Elicia Caal MD at [facility] OR ??? Left 07/27/2015 MODIFIER WOUND VAC performed by Elicia Caal MD at [facility] MA[facility] OR Family History Problem Relation Age of Onset ??? Type 2 Diabetes Sister ??? Type 2 Diabetes Mother ??? Type 2 Diabetes Father ??? Coronary Artery Disease Father ??? Coronary Artery Disease Mother Social History Narrative Lives with significant other [place] style home Outpatient medications: Current Facility-Administered Medications on File Prior to Encounter Medication Dose Route Frequency Provider Last Rate Last Dose ??? midazolam (PF) (VERSED) 1 mg/mL multi-dose injection PRN Dontrell Romero MD 2 mg at 03/18/15 1318 Current Outpatient Prescriptions on File Prior to Encounter Medication Sig Dispense Refill ??? oxyCODONE (ROXICODONE) 5 mg Tablet Take 1 tablet by mouth every 6 hours as needed for Pain. 50 tablet 0 ??? gabapentin (NEURONTIN) 300 mg Capsule Take 1 capsule by mouth 3 times daily. One capsule 300 mg in AM and PM. Three (900 mg) capsules at bedtime Indications: Neuropathic Pain 150 capsule 3 ??? sertraline (ZOLOFT) 50 mg Tablet Take 50 mg by mouth daily. ??? meTOPROLOL succinate (TOPROL-XL) 25 mg Tablet Sustained Release 24 hr Take 1 tablet by mouth daily. 30 tablet 12 ??? multivitamin (THERAGRAN) Tablet Take 1 tablet by mouth daily. ??? aspirin 81 mg Tablet, Delayed Release (E.C.) Take 1 tablet by mouth daily. 30 tablet 3 ??? metFORMIN (GLUCOPHAGE) 500 mg Tablet Take 1,000 mg by mouth 2 times daily (with meals). Takes 2 bid ??? simvastatin (ZOCOR) 20 mg Tablet Take 20 mg by mouth nightly. ??? lisinopril (PRINIVIL;ZESTRIL) 5 mg Tablet Take 5 mg by mouth daily. ??? acetaminophen (TYLENOL) 325 mg Tablet Take 325 mg by mouth every 4 hours as needed for Pain. MEDICATIONS: ??? polyethylene glycol (MIRALAX)oral powder 17 g Oral BID ??? DAPTOmycin 7 mg/kg/dose Intravenous Q48H ??? senna-docusate 1 tablet Oral BID ??? aspirin 81 mg Oral Daily ??? gabapentin 300 mg Oral TID ??? lisinopril 5 mg Oral Daily ??? meTOPROLOL succinate 25 mg Oral Daily ??? sertraline 50 mg Oral Daily ??? simvastatin 20 mg Oral Nightly ??? insulin aspart 1-4 Units Subcutaneous TID AC ??? piperacillin-tazobactam 3.375 g Intravenous Q8H MICHAEL No Known Allergies ROS: Constitutional - No fevers, chills, weight loss Skin - No rash or itchy skin HEENT - No headaches, visual changes Resp - No cough, shortness of breath CV - No chest pain, leg swelling, difficulty breathing lying flat GI - No nausea, vomiting,change in bowel habits/abdominal pain - No change in urine output. No pain urinating or blood in urine. Neuro - No weakness. No numbness/ tingling in extremities. PHYSICAL EXAM: Last value Range last 24 hrs Temperature Temp: 36.5 ??C (97.7 ??F) Temp: [36.5 ??C (97.7 ??F)-37.2 ??C (99 ??F)] Heart Rate Heart Rate: 72 Heart Rate: [70-80] Blood Pressure BP: 117/85 mmHg BP: (96-170)/(60-94) Respiratory Rate Resp: 15 Resp: [10-18] SpO2 SpO2: 96 % SpO2: [95 %-99 %] Appearance - Alert, Comfortable. Skin - No exanthem. HEENT - Sclera white. Mucous membranes moist. Chest: Lungs clear to ausculatation w/o wheezes/ rhonchi/ crackles. Heart - S1 and S2 clear w/o murmur, gallop, or rub. JVP not elevated. Abd - Soft. + BS. No bruit. Non tender. Ext - Warm. No cyanosis. + dependent edema over Rt LE. Left has BKA Neuro - No asterixis. STUDIES: Labs: CBC: Recent Labs 07/28/15 0430 07/27/15 0512 07/26/15 0140 WBC 11.1* 13.7* 11.4* HGB 9.0* 8.8* 9.2* PLATELET 350 354 347 Chemistry: Recent Labs 07/28/15 0430 07/27/15 0512 07/26/15 1615 NA 140 142 141 K 3.9 4.1 3.7 CL 104 104 103 CO2 22 21* 20* BUN 20* 20* 17 CREATININE 1.85* 1.68* 1.67* GLUCOSE 193 221* 176 Recent Labs 07/28/15 0430 07/27/15 0512 07/26/15 1615 CALCIUM 8.1* 8.3* 7.5* LFT's: Recent Labs 07/28/15 0737 BILITOT 0.3 BILIDIR 0.1 ALBUMIN 2.3* ALKPHOS 184* ALT 6 AST 11 UA: ph 5 SG 1020 Glucose + no prot or leucocytes Uric acid crystals on microscopy IMPRESSION/ RECOMMENDATIONS: 64 yo lady with no known renal Hx admitted for wet gangrene of her left lower extremity is s/p BKA. We are consulted for worsening of kidney function. Recent Labs 07/28/15 0430 07/27/15 0512 07/26/15 1615 07/26/15 0140 07/25/15 0201 07/24/15 0503 07/23/15 2050 05/29/15 0647 05/28/15 0414 05/27/15 0521 05/26/15 0814 05/24/15 0813 05/19/15 1202 03/24/15 0304 03/23/15 0240 03/22/15 0338 03/21/15 0601 03/20/15 0602 03/19/15 0905 03/16/15 1200 03/08/15 1532 CR 1.85* 1.68* 1.67* 1.45* 0.91 0.35* 0.35* 0.43* 0.39* 0.48* 0.55* 0.50* 0.58* 0.34* 0.35* 0.42* 0.41* 0.42* 0.50* 0.49* 0.56* Urine out put 915 yesterday and 215 today so far. Negative balance in last 2 days Hb 9 K 3.9 BUN 20 shaker washer 1.85 FeNa 1.3 vanco level 26.8 from OSH 3 days ago. Urine microscopy showing rhomboid crystals Seems like acute on CKD could be a combination of multiple factors vanco toxicity vs AIN? But no eiosinophilia Had low BP episodes during surgery so ATN is one possility. Pt on lisinopril and metformin which could have contributed towards worsening of kidney function We will suggest getting Duplex for kidneys Stop lisinopril/metformin avoid hypotension episodes In future keep sys BP >130 Uric acid level ( uric acid crystal on urine microscopy) Please avoid nephrotoxins Please renally dose all medications Please avoid IV lines PICC lines in patients who may ever need dialysis Please save non-dominant arm for access Thanks for letting us participate in the care of this patient. Seen and Discussed w/ Dr. Ritesh Moise Nephrology Fellow Pager [phone] Renal Attending Inpatient Consult We are asked by Dr Caal to see Chan Hurst in consultation regarding PANDA Chan [place] seen and examined and discussed with the renal fellow and the data and chart were reviewed. My findings including history, examination and review of data are accurately detailed in the note above. In summary 64 year old with extensive atherosclerotic vascular disease, inferior hypokinesis hasdeveloped oliguric PANDA due to hemodynamic injury in setting of wet gangrene, relative hypotension, BKA. No clinical or metabolic indication for emergent dialysis at this time. No evidence volume overload not responsive to diuretics, acidosis or hyperkalemia not responsive to medical management, uremic encephalopathy,uremic pericarditis, or uremic bleeding. I agree with the recommendations above. We will continue to follow. Thank you for involving us in the care of this patient Initial Assessments - Anabel Vela PT - 07/28/2015 12:15 PM EST Physical Therapy Evaluation Patient profile: Pt. is a 64 y.o. female admitted on 07/23/2015 by Elicia Rivera, * in transfer from [facility] for Vascular service consult who presents now with wet gangreneof the left lower extremity. 07-24-15: OR Procedure(s): 1. Left below-knee guillotine amputation 2. Incision and drainage of multiple LLE abscesses 3. Left common femoral artery exposure, debridement and repair with bovine pericardial patch. 4. Ligation and removal of thrombosed, infected left CLIENT SERVICES ASSOCIATE-PT PTFE bypass graft. ?? 5. Placement of wound vac. 07-27-15 OR procedure(s): 1. Left groin excisional debridement using Metzenbaum scissors. 2. Irrigation of excised LLE bypass tunnel. 3. Left Sartorious flap coverage of patched femoral artery. 4. Left groin wound vac placement. Recent History: October 2014 claudication, this quickly progressed to rest pain. She underwent SFA to peroneal bypass with vein in 03-18-15. On 05-19-15 this bypass graft was noted to be occluded and her rest pain was persistent. She then underwent a second LLE bypass CLIENT SERVICES ASSOCIATE to PT with PTFE, on 05-26. This was found to be occluded on 06-01. Since that time the patient has had progressive worsening of her medial/distal surgical incision that has failed to heal. With no additional revasc options she was offered opportunity to enrol in stemcell trial, but declined. 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 On 07-20-15 she present to [facility] with SIRS physiology, felt to be related to her leg wound. She declined transfer to [facility] for amputation at that time and was admitted and started on antibiotics. Today, she has resigned to transfer for further care of her leg wound. Of note, she was growing MRSA and pseudomonas from the wound at the OSH, she has been on ceftazidineand vancomycin. The patient received Morphine 30mg po and Ativan 1mg IV for transport here and is too lethargic to engage for interview at this time. PMH: Past Medical History Diagnosis Date ??? HTN (hypertension) ??? DM (diabetes mellitus) metformin ??? Hypercholesterolemia ??? PVD (peripheral vascular disease) ??? HLD (hyperlipidemia) 03/24/2015 Past Surgical History Procedure Laterality Date ??? Skin graft Left left 2nd metacarpal ??? Pro vein bypass graft, fem-tibial Left 03/18/2015 @BYPASS GRAFT, FEM.-ANT. TIB, POST. TIB, PERONEAL, DP W\ VEIN CONDUIT ([place] [address]) performed by Mariano Doyle MD at [facility] OR ??? Pro bypass graft othr, fem-tibial Left 05/26/2015 @BYPASS GRAFT, FEM-ANT TIBIAL, -POST TIBIAL, -PERONEAL, -DP W\ SYNTHETIC CONDUIT performed by Mariano Doyle MD at [facility] OR ??? Pro bypass graft vein patch/cuff, synthetic Left 05/26/2015 PLACEMENT VEIN PATCH OR CUFF AT DISTAL ANASTOMOSIS OF BYPASS GRAFT, SYNTHETIC CONDUIT , RODRIGUEZ-COLLAR, RACHELLE-PATCH, ADD-ON CODE, LOWER EXTREMITY performed by Mariano Doyle MD at [facility] OR ??? Pro thromboendartectmy iliofemoral Left 05/26/2015 @ENDARTERECTOMY, ILIOFEMORAL W OR W/O PATCH GRAFT performed by Mariano Doyle MD at [facility] OR ??? Pro reoperation, bypass graft Left 05/26/2015 @RE-OP FOR RE-DO LOWER EXTREMITY BYPASS GRAFT, >1 MONTH P\ ORIGINAL SURGERY, ADD-ON CODE performed by Mariano Doyle MD at [facility] OR ??? Pro amputation low leg, circular Left 07/24/2015 @AMPUTATION, BELOW-KNEE, OPEN, GUILLOTINE performed by Elicia Caal MD at [facility] OR ??? Pro exploration, femoral artery Left 07/24/2015 @EXPLORATION, W/WO LYSIS, FEMORAL ARTERY W\O SURGICAL REPAIR performed by Elicia Caal MD at [facility] OR ??? Pro negative pressure wound therapy, less than or equal to 50 sqcm Left 07/24/2015 DRESSING CHANGE (VAC ASSISTED) UP TO 50SQ.CM performed by Elicia Caal MD at [facility] OR ??? Pro rebl ves direct, low extrem Left 07/24/2015 REPAIR LOWER EXTREMITY BLOOD VESSEL, DIRECT, NO PATCH OR GRAFT performed by Elicia Caal MD at [facility] OR ??? Pro excision, infec graft, extremity Left 07/24/2015 EXCISION OF INFECTED GRAFT FROM LOWER EXTREMITY performed by Elicia Caal MD at [facility] MA[facility] OR Social History: Patient lives in [place], [place]. Lives with boyfriend. Boyfriend works so she's home alone. Baseline Mobility: decreased activity tolerance but managing on her own in day hours while boyfriendworking. Precautions/Special Considerations: DNR code status; activity as tolerated per MD orders. Subjective: ???I'd like to sit in the chair to eat, it was hard to eat breakfast in bed earlier today?? Objective: Pt seen for evaluation today. Pain: she reports pain under control Vital Signs: Sp02: 96% on 1 L O2 NC HR: 70's Mental Status: sleepy although awakens easily, oriented and following directions Musculoskeletal: Moving arms and R LE on her own, feeling weak. Supine L LE extended on pillow, Sitting EOB L LE flexing to 90 and patient beginning to perform LAQ exercise. Weak; I haven't been up inabout a week's time now. Bed Mobility: Supine > Sit: HOB up ~ 45 degrees moved to L side of bed with mod A to scoot hips as she was holding L LE with her hands, once L LE got over edge of bed then she grabbed railing with hand. Didn't get back to bed, stayed up in chair to eat lunch. Discussed with electrical maintenance worker back to bed later from the chair: that they can drop armrest and slide ptsideways if she's too tired to stand with nursing and pivot. Transfers: Sit > Stand: from EOB to walker with min A x 2. With bear hug mod A x 1, leaned to her L/assist w/ balance. Patient holding walker and able to WB on R LE but couldn't pivot so sat and stood with bear hug and no walker. Bed <>Chair: Pivot transfer to her R side with bear hug of 1 person assist and RN stand-by assist. Will find a slide board and can try this mode next visit. Gait: Patient able to stand holding walker with RN and I each side, min A x 2. Unable to hop or pivot on R foot. May need to begin in // bars or @ bedside with walker; continue attempts to progress. May benefit from w/c mobility initially until balance stable. Balance: Sitting: EOB able to maintain her balance (I) and let go with hands, close supervision. Standing: Able to static stand with walker and balance w/ assist but not able to shift wt for pivot yet. Informed Consent: The patient understands and agrees to the PT treatment plan and goals. Education: patient have been educated on Role of therapy and importance to begin OOB activity to prevent complications and she verbalizes understanding. Patient status, treatment, and mobility recommendations discussed with nursing. Assessment: Pt tolerated today???s evaluation well, she reports she's not been out of bed in about aweek's time, she was eager to get into a chair to eat as her breakfast was a challenge to eat in bed. RN able to stand-by and see patient's ability to stand but not pivot holding walker. Instead stood with bear-hug X 1 person to pivot bed > chair to eat her lunch. RN feels comfortable to help patient back to bed later, we discussed if she can't stand to drop armrest of chair and side scoot on buttocks over to bed as another option. The pt would benefit from skilled therapy services to maximize functional independence while in the hospital and to address limitations as noted above. Patient was home alone in day when her boyfriend worked and not @ this level; will benefit from rehab stay prior toreturn home. Goals: To be achieved by 08-07-15. 1. Pt. to demonstrate knowledge of precautions & safety during functional activities, call for assist prior to moving. 2. Pt. to demonstrate understanding of appropriate exercises. 3. Pt. to perform bed mobility with min assist x 1 4. Pt. to perform sit > stand transfers from EOB to walker with min A x 1. 5. Pt perform slide board transfer's with 1 person assist. 6. Pt propel w/c (I) 50' with arms. 7. Pt. to wt shift or hop or pivot on R LE holding walker to transfer bed >< chair w/ min A x 2. Plan: Pt to be seen 2-5 times per week for therapy including Bed mobility, Transfers, Exercise, Positioning, Safety , Balance and Discharge planning. Patient agrees with plan as stated above. Equipment needs: Rolling walker, Wheelchair and possibly slide board @ present. Discharge Recommendations: Based on my evaluation, patient will not be safe to be home alone @ this time; she'd benefit from rehab stay prior to return home. Total time spent with patient: 50 minutes Evaluatin Total timed interventions: 0 minutes ANABEL VELA PT 07/28/2015 Pager: [phone] Physical Therapy Rehabilitation Department Consult Note - Donita Agrawal RN - 07/28/2015 11:05 AM EST Images from the original note were not included. Certified Wound Care Nurse Note Situation: Asked to see Chan Hurst by nursing for fissure to sacrum after the OR Background: eD-H notes reviewed for history, admitting diagnosis and active problem list. Wound Assessment and Care Provided: Pt sitting up in bed, s/p surgery. RN states previous concern for kenneth wrap to LLE, per vehicle body sander removed and re-dressed by surgery. Dressing intact at time of assessment and being managed by vascular surgery. Explained purpose of visit and pt agreed to assessment. Pt turned self to left side with minassist. Pt used HYDRAMATIC SPECIALIST prior to turn. Sacral mepilex dressing removed. Pt noted to have open area within intergluteal cleft with peeling, white macerated skin present. Mepilex dressing replaced. Right heel intact with no discoloration. See photos: Sacrum: Kane Score: 13 Last Pressure Ulcer Prevention assessment: Shift Pressure Ulcer Prevention Occiput: No Injury Thoracic Spine: No Injury Sacral: New Injury (open fissure) Ischial - left: No Injury Ischial - right: No Injury Heel - left: other (see comment) (BKA) Heel - right: No Injury Elbow - left: No Injury Elbow - right: No Injury Device Sites: O2 sat monitor, oxygen tubing, A line sites - tubing, A line Board, kenneth wraps, SCD's/venodynes, garnica, IV sites, ECG Leads Other Sites: wound vac-groin Existing Wounds: Wound 07/28/15 1103 sacral spine fissure (Active) Dressing Appearance dry;intact 07/28/2015 11:00 AM Base moist;pink 07/28/2015 11:00 AM Area macerated 07/28/2015 11:00 AM Length (cm) 3 07/28/2015 11:00 AM Width (cm) 0.4 07/28/2015 11:00 AM Drainage Amount none 07/28/2015 11:00 AM Dressing Dressing removed;Dressing applied 07/28/2015 11:00 AM Nutritional Status Wt Readings from Last 1 Encounters: 07/27/15 59 kg (130 lb 1.1 oz) Body mass index is 25.4 kg/(m^2). Labs Lab Results Component Value Date ALBUMIN 2.3* 07/28/2015 PREALBUMIN 10* 07/28/2015 WBC 11.1* 07/28/2015 WBC 13.7* 07/27/2015 WBC 11.4* 07/26/2015 HGB 9.0* 07/28/2015 HGB 8.8* 07/27/2015 HGB 9.2* 07/26/2015 HCT 27.4* 07/28/2015 HCT 27.0* 07/27/2015 HCT 28.0* 07/26/2015 Nutritional Intake Nutrition Assessments Diet/Nutrition Prescription: other (see comments) (high protein, high calorie) Diet/Feeding Assistance: tray set-up Diet/Feeding Tolerance: good Intake (%): 50% Fluids: adequate Nutrition Risk Screen (Admission and every 4 days/sig change): no indicators present Nutrition Interventions Nutrition Interventions: diet advanced Oral Nutrition Promotion: oral hygiene provided, meal setup provided Current bed: Specialty Bed/Overlay: bed, alternating air Assessment: Pt with moisture associated skin breakdown to intergluteal cleft. Periwound skin appears macerated. Continue with mepilex border dressing to area to protect and wick moisture away from area. Turn pt side to side only to offload pressure. Albumin low, continue to encourage PO intake. Wound Care Recommendations: Mepilex Border dressing-change every 3 days and PRN: sacrum 1. Cleanse wound with dermal wound cleanser. 2. Apply Mepilex Border dressing Mobility: Turn and reposition every 2 hours and document in ED-H. Side to side only Place a pillow above and below sacral area to off load pressure to the sacrum Offload pressure from heels by placing pillows lengthwise beneath legs while in bed. Offload pressure from heels by adjusting length of foot of bed. Discussed plan with: RN: Mihaela Denton Please contact DONITA AGRAWAL RN on pager [phone] or the wound care team at [phone] or pager [phone] with skin and wound care concerns or questions. Plan of Care - Arminda Rey RN - 07/28/2015 5:58 AM EST Problem: General Plan of Care Goal: Plan of Care Review Outcome: Ongoing (Interventions Implemented as Appropriate) 07/27/15 0552 07/27/151999 Plan of Care Review Plan of Care Outcome Status ongoing (interventions implemented as appropriate) -- Progress progress toward functional goals as expected -- Coping/Psychosocial Response Interventions Plan of Care Reviewed with -- patient OUTCOME EVALUATION NOTE: OUTCOME SUMMARY: Pt A&Ox4. Did not have any complications over night and slept comfortably. Pt's SBP was below 150 all night. When performing 1999 turn, pulling back of mepilex revealed an open fissure on sacrum. Wound consult was put in. Turned pt side to side every two hours to keep pressure off sacrum. Pain seemed to me managed with HYDRAMATIC SPECIALIST. Did not need additional interventions for pain or blood pressure. Wound vac continuing to drain serosang fluid. Drained a large amount at beginning of shift, then decreased. No bowel movement during shift. PLAN MOVING FORWARD: Continue to maintain SBP below 150, continue pain management, monitor drainage of wound vac INDIVIDUALIZED FALL PREVENTION: Assistance: Bed rest Supervision: Hourly rounds Surveillance: Alarms on and audible, ambu bag on and set up in room, pt room near nurses station CPG GOAL OUTCOME EVALUATION: Goal: Individualization and Mutuality Outcome: Ongoing (Interventions Implemented as Appropriate) 07/24/15 0424 Mutuality/Individual Preferences What anxieties, fears or concerns do you have about your health or care? nothing verbalized What questions do you have about your health or care? nothing verbalized What information would help us give you more personalized care? none verbalized Goal: Fall Prevention-Safe Patient Handling Outcome: Ongoing (Interventions Implemented as Appropriate) 07/27/15199907/28/15 0400 Safety Interventions Safety Precautions/Fall Reduction -- environmental modification;fall reduction program [facility] Fall Risk History of Falling 0 -- Secondary Diagnosis 15 -- Ambulatory Aids 0 -- Intravenous Therapy/Heparin/Saline Lock 20 -- Gait/Transferring 10 -- Mental Status 0 -- Score 45 -- Activity and Safety Assistive Device -- Oxygen OTHER Andino Fall Risk High -- Musculoskeletal Interventions Activity/Level of Assistance -- bed rest Positioning -- HOB up 30-45 degrees Self-Care Promotion meal setup provided;hygiene assistance provided;grooming assistance provided -- Goal: Infection Control Outcome: Ongoing (Interventions Implemented as Appropriate) 07/27/15199907/28/15 0400 Safety Interventions Isolation Precautions -- standard precautions maintained Infection Prevention rest/sleep promoted;hydration promoted -- Coping/Psychosocial Response Interventions Counseling verbalization of feelings encouraged;relaxation techniques promoted;reassurance provided;understanding of situation facilitated -- Goal: Discharge Needs Assessment Outcome: Ongoing (Interventions Implemented as Appropriate) 07/24/15 0425 07/24/15 0456 07/24/15 0458 Discharge Needs Assessment Concerns to be Addressed -- -- adjustment to diagnosis/illness concerns Self-Care Equipment Currently Used at Home -- cane, straight;walker, standard;shower chair -- Living Environment Transportation Available family or friend will provide -- -- Problem: Skin Integrity Impairment, Risk/Actual (Adult, Obstetrics) Goal: Identify Signs and Symptoms and Related Risk Factors Signs and symptoms and related risk factors are identified upon initiation of Human Response Clinical Practice Guideline (CPG) Outcome: Ongoing (Interventions Implemented as Appropriate) 07/26/151839 Skin Integrity Impairment, Risk/Actual Personal Related Risk Factors (Skin Integrity Impairment, Risk/Actual) stress Treatment Related Related Risk Factors (Skin Integrity Impairment, Risk/Actual) invasive catheters;medication;surgery Goal: Skin Integrity/Wound Healing Patient will demonstrate the desired outcomes. Outcome: Ongoing (Interventions Implemented as Appropriate) 07/25/151825 Skin Integrity Impairment, Risk/Actual (Adult, Obstetrics) Skin Integrity/Wound Healing making progress toward outcome Problem: Lower Extremity Amputation (Adult) Goal: Signs and symptoms of listed potential problems will be absent or manageable (reference (LowerExtremity Amputation (Adult)) CPG) Outcome: Ongoing (Interventions Implemented as Appropriate) 07/25/15182507/26/15 184 Lower Extremity Amputation Problems Assessed (Lower Extremity Amputation) -- all Problems Present (Lower Extremity Amputation) acute pain;functional decline/self-care deficit;situational response;residual limb management -- Problem: Pain, Acute (Adult, Obstetrics) Goal: Identify Signs and Symptoms and Related Risk Factors Signs and symptoms and related risk factors are identified upon initiation of Human Response Clinical Practice Guideline (CPG) Outcome: Ongoing (Interventions Implemented as Appropriate) 07/26/15 1840 Pain, Acute Related Risk Factors (Acute Pain) fatigue;positioning;stress;surgery Signs and Symptoms (Acute Pain) fatigue/weakness;sleep pattern alteration Goal: Acceptable Pain Control/Comfort Level Patient will demonstrate the desired outcomes. Outcome: Ongoing (Interventions Implemented as Appropriate) 07/25/15 1826 Pain, Acute (Adult, Obstetrics) Acceptable Pain Control/Comfort Level making progress toward outcome Plan of Care - Haley Esteban RN - 07/27/2015 7:00 PM EST Problem: General Plan of Care Goal: Plan of Care Review Outcome: Ongoing (Interventions Implemented as Appropriate) 07/27/15 0552 07/27/15 0800 Plan of Care Review Plan of Care Outcome Status ongoing (interventions implemented as appropriate) -- Progress progress toward functional goals as expected -- Coping/Psychosocial Response Interventions Plan of Care Reviewed with -- patient Goal: Individualization and Mutuality Outcome: Ongoing (Interventions Implemented as Appropriate) 07/24/15 0424 Mutuality/Individual Preferences What anxieties, fears or concerns do you have about your health or care? nothing verbalized What questions do you have about your health or care? nothing verbalized What information would help us give you more personalized care? none verbalized Goal: Fall Prevention-Safe Patient Handling Outcome: Ongoing (Interventions Implemented as Appropriate) 07/27/15 0800 07/27/15 1100 Safety Interventions Safety Precautions/Fall Reduction -- environmental modification;fall reduction program maintained;family at bedside;lighting adjusted for task/safety;low bed Andino Fall Risk History of Falling 0 -- Secondary Diagnosis 15 -- Ambulatory Aids 0 -- Intravenous Therapy/Heparin/Saline Lock 20 -- Gait/Transferring 10 -- Mental Status 0 -- Score 45 -- Activity and Safety Assistive Device Oxygen -- OTHER Andino Fall Risk High -- Musculoskeletal Interventions Activity/Level of Assistance bed rest -- Positioning HOB up 30 degrees -- Self-Care Promotion bathing assistance provided;hygiene assistance provided -- Goal: Infection Control Outcome: Ongoing (Interventions Implemented as Appropriate) 07/27/15 0800 07/27/15 1100 Safety Interventions Isolation Precautions -- standard precautions maintained Infection Prevention hydration promoted;environmental surveillance;promote handwashing;rest/sleep promoted -- Coping/Psychosocial Response Interventions Counseling calming techniques promoted;emotional support provided;reassurance provided -- Goal: Discharge Needs Assessment Outcome: Ongoing (Interventions Implemented as Appropriate) 07/24/15 0425 07/24/15 0456 07/24/15 0458 Discharge Needs Assessment Concerns to be Addressed -- -- adjustment to diagnosis/illness concerns Self-Care Equipment Currently Used at Home -- cane, straight;walker, standard;shower chair -- Living Environment Transportation Available family or friend will provide -- -- Problem: Skin Integrity Impairment, Risk/Actual (Adult, Obstetrics) Intervention: Pressure Reduction Devices 07/27/15799 Skin Interventions Pressure Reduction Devices positioning supports utilized;heel offloading device utilized Intervention: Pressure Reduction Techniques 07/27/15799 Skin Interventions Pressure Reduction Techniques heels elevated off bed;pressure points protected;skin to skin areas padded;skin to device areas padded;tubing/devices free from under/on patient;turn sheet used;turned/repositioned Intervention: Oral Nutrition Promotion 07/27/15 08 Nutrition Interventions Oral Nutrition Promotion oral hygiene provided Intervention: Skin/Mucous Membrane Protection 07/27/15799 Skin Interventions Skin/Mucous Membrane Protection absorbent garment/pad/diaper changed;age appropriate skin cleansing provided;incontinence pad utilized;lip lubricant applied;oral hygiene provided;oral rinse provided;pressure points protected;pulse oximeter probe site changed;sacral silicone foam dressing;tubing/devices free from under/on patient Intervention: Wound Healing Promotion 07/27/15799 Skin Interventions Wound Healing Promotion adequate fluids provided;normothermia maintained;oral hygiene provided;perfusion maximized;sleep/rest promoted Goal: Identify Signs and Symptoms and Related Risk Factors Signs and symptoms and related risk factors are identified upon initiation of Human Response Clinical Practice Guideline (CPG) Outcome: Ongoing (Interventions Implemented as Appropriate) 07/26/15 1840 Skin Integrity Impairment, Risk/Actual Personal Related Risk Factors (Skin Integrity Impairment, Risk/Actual) stress Treatment Related Related Risk Factors (Skin Integrity Impairment, Risk/Actual) invasive catheters;medication;surgery Goal: Skin Integrity/Wound Healing Patient will demonstrate the desired outcomes. Outcome: Ongoing (Interventions Implemented as Appropriate) Problem: Lower Extremity Amputation (Adult) Goal: Signs and symptoms of listed potential problems will be absent or manageable (reference (LowerExtremity Amputation (Adult)) CPG) Outcome: Ongoing (Interventions Implemented as Appropriate) 07/25/15182507/26/15 1840 Lower Extremity Amputation Problems Assessed (Lower Extremity Amputation) -- all Problems Present (Lower Extremity Amputation) acute pain;functional decline/self-care deficit;situational response;residual limb management -- Problem: Pain, Acute (Adult, Obstetrics) Goal: Identify Signs and Symptoms and Related Risk Factors Signs and symptoms and related risk factors are identified upon initiation of Human Response Clinical Practice Guideline (CPG) Outcome: Ongoing (Interventions Implemented as Appropriate) 07/26/151839 Pain, Acute Related Risk Factors (Acute Pain) fatigue;positioning;stress;surgery Signs and Symptoms (Acute Pain) fatigue/weakness;sleep pattern alteration Goal: Acceptable Pain Control/Comfort Level Patient will demonstrate the desired outcomes. Outcome: Ongoing (Interventions Implemented as Appropriate) 07/25/151825 Pain, Acute (Adult, Obstetrics) Acceptable Pain Control/Comfort Level making progress toward outcome Comments: OUTCOME EVALUATION NOTE: OUTCOME SUMMARY: To OR today, see note. HYDRAMATIC SPECIALIST for pain mgmt. Vac Dsg to -125 @ change of shift. Diet advanced, tolerated well. PLAN MOVING FORWARD: wound vac, pain mgmt, ? Return to OR INDIVIDUALIZED FALL PREVENTION: Assistance: bedrest Supervision: By RN station, tele, spo2 Surveillance: Bed alarm CPG GOAL OUTCOME EVALUATION: Op Note - Juliano Allen - 07/27/2015 2:46 PM EST [facility] Operative Note Patient Name: Chan Hurst : 1950 MR#: [id number] Case Date: 07/27/2015 Date of Operation: 07/27/2015. Surgeon(s) and Role: * Elicia Caal MD - Primary * Juliano Allen MD - Resident-Surgeon Kelvin Preoperative Diagnosis: LLE groin infection. Postoperative Diagnosis: Same. Procedure: 1. Left groin excisional debridement using Metzenbaum scissors. 2. Irrigation of excised LLE bypass tunnel. 3. Left Sartorious flap coverage of patched femoral artery. 4. Left groin wound vac placement. Findings: Well drained infected area, no residual infection or purulence.?? Copiously irrigated withwarm saline. No noted residual infection in old bypass tunnel.?? Sartorious muscle small but mobilized and used to cover the patched femoral artery.?? Wound then covered with wound vac using 3 pieces of black sponge. Anesthesia: General Estimated Blood Loss: 5 mL Urine Output: 100 mL. Intravenous Fluid: 500 mL. Drains/Lines: Garnica catheter, arterial line, PIVs, vac Specimens: None. Indications for Procedure: Chan Hurst is a 64 y.o. female who presents having undergone a left lower extremity prostheticgraft explantation for infection, debridement of the femoral artery and then bovine pericardial patch repair of the left femoral artery. She now is undergoing serial washouts and debridements in the OR. Procedure in Detail: The patient was correctly identified in the Preprocedure Holding Area. After a discussion of the risks, benefits and alternatives of the procedure and after answering all of the patients questions, the patient wished to proceed and then was consented for the operation. The patientwas brought back to the Operating Room and placed supine on the operating table. She was intubated by the Anesthesia Service without difficulty. A radial arterial line and a Garnica catheter was already in place, and the patient was then prepped and draped in the standard sterile fashion using an iodinesolution. Scheduled antibiotics had already been administered, and a full standard time out was completed prior to initiating the procedure. We began by removing the previously placed white sponge over the femoral artery. We noted that therewas no residual infection and no purulence noted in the groin wound or in the old bypass tunnel. We then copiously irrigated the old bypass tunnel with warmed normal saline. The suction device used wasthen removed from the operative field. We then turned our attention to the left groin wound. We copiously irrigated the wound with warmed normal saline and then isolated the Sartorious muscle. It was small and some scar tissue was overlying it. We carefully dissected it free from its lateral attachments and then off of the ASIS. We rotated it medially and found that it was able to over the femoral art gregory with minimal tension. There was just enough muscle to cover over the artery due to the small size of the Sartorious. It was approximated with interrupted 3- o Vicryl sutures and tension minimized. The wound was then packed with 3 pieces of black sponge and a wound vac applied and set to -125 mmHg. The amputation guillotine stump was then dressed with Kerlix and a loosely wrapped KENNETH bandage so as to allow egress of fluid. All sponge and instrument counts were correct at the end of the procedure. Dr. Caal, the attending surgeon of record, was present and scrubbed for the duration of the procedure. Disposition: awakened from anesthesia, extubated and taken to the recovery room in a stable condition, having suffered no apparent untoward event. Condition: doing well without problems Associated attestation - Elicia Caal MD - 07/27/2015 4:10 PM EST Attestation: Case Date: 07/27/2015 I was present and scrubbed for the entire procedure. ELICIA CAAL MD 07/27/2015 Brief Op Note - Juliano Allen - 07/27/2015 2:41 PM EST Brief Operative Note Patient Name: Chan Hurst : [id number] MR#: [id number] Case Date: 07/27/2015 Surgeon: Surgeon(s) and Role: * Elicia Caal MD - Primary * Juliano Allen MD - Resident-Surgeon Kelvin Preoperative diagnosis: LLE groin infection. Postoperative diagnosis: Same. Procedure(s): 1. Left groin excisional debridement using Metzenbaum scissors. 2. Irrigation of excised LLE bypass tunnel. 3. Left Sartorious flap coverage of patched femoral artery. 4. Left groin wound vac placement. Anesthesia: General. Findings: Well drained infected area, no residual infection or purulence. Copiously irrigated with warm saline. No noted residual infection in old bypass tunnel. Sartorious muscle small but mobilized and used to cover the patched femoral artery. Wound then covered with wound vac using 3 pieces of black sponge. Complications: None. Fluids: 500 mL Estimated Blood Loss: 5 mL Drains: Vac, garnica, art line, PIV Disposition: awakened from anesthesia, extubated and taken to the recovery room in a stable condition, having suffered no apparent untoward event. Condition: doing well without problems Infection Bundle used? N/A Consult Note - Karen Thornton MD - 07/27/2015 9:41 AM EST Patient Name: Chan Hurst Patient Age: 64 y.o. Birthdate: 1950 Admit date: 07/23/2015 Attending Physician: Elicia Caal, * INFECTIOUS DISEASE FELLOW INPATIENT CONSULT NOTE Reason for Consult: We are seeing Chan Hurst at the request of Dr Caal for the evaluation of left lower extremity infection Admission date: 07/23/2015 HPI: Chan Hurst is a 64 y.o. female with pmhx of HTN,HLD,DM,depression,hx of left lower ext critical limb ischemia p/w wet gangrene of LLE.She developed claudication in October 2014 which progressed to resting pain s/p SFA to peroneal bypass with vein graft 03/18/15 complicated by occlusion of graft in May 2015.She underwent second left common femoral to posterior tibial with polytetrafluoroethylene graft on 05/26/15 which was occluded on 06/01/15 since then medial and distal surgical wounds failed toheal,she was given an option to enroll in stem cell trail as surgical options were limited,her woundprogressed to wet gangrene so she presented to OSH with septic physiology started on iv vancomycin and ceftazidime,left lower ext wound cx reportedly revealed MRSA and pseudomonas,she was transferred to [facility] for further evaluation. At [facility] she was started on iv vancomycin and pip tazo, evaluated by vascular surgery taken to OR on 07/24/15 s/p guillotine BKA of left LE with large amounts of purulent drainage expressed from the graft tunnel,incision was extended along medial calf s/p removal of PTFE graft and bovine patch debrided til CLIENT SERVICES ASSOCIATE and new bovine patch,small collection in left groin which was drained. Cultures from OR yielded MRSA.Found to have supra therapeutic vancomycin level with PANDA which was likely from vancomycin toxicity? ID consulted for alternative antibiotic choices in management of left lower extremity extensive infection ROS: General: denies fever, chills, sweats, change in weight, rash or itching HEENT: denies headache, change in vision or hearing, tinnitus, epistaxis, sore throat CVS: denies chest pain, palpitations, pedal edema, orthopnea Pulm: denies shortness of breath, SAUER, wheezes, cough GI: denies abdominal pain, nausea/vomiting, constipation, diarrhea, anorexia : denies hematuria, dysuria, frequency, nocturia MS: denies arthralgias, myalgias Neuro: denies focal weakness, parasthesias, gait instability Psych: denies mood disorder, sleep disturbance PMH Past Medical History Diagnosis Date ??? HTN (hypertension) ??? DM (diabetes mellitus) metformin ??? Hypercholesterolemia ??? PVD (peripheral vascular disease) ??? HLD (hyperlipidemia) 03/24/2015 Allergies No Known Allergies Pertinent Medications: Pip tazo SoHx: No recent travel, no alcohol, no smoking-second hand smoking exposure, no drugs Family History CAD-father PAD -brother Physical Exam (24 hrs): Temp: [36.3 ??C (97.3 ??F)-36.9 ??C (98.4 ??F)] Heart Rate: [69-87] BP: (156)/(78) Resp: [9-20] SpO2: [94 %-100 %] Gen: comfortably lying in bed. HEENT: PERRLA. Pulm: Clear lungs Cardio: RRR, no murmur GI: Abd S/ND/NT/BS+ Neuro:AAOX1-2,no fnd Ext:left lower ext BKA wrapped in bandage,RLE-WNL Labs Lab Results Component Value Date WBC 13.7* 07/27/2015 RBC 2.97* 07/27/2015 HGB 8.8* 07/27/2015 HCT 27.0* 07/27/2015 MCV 90.9 07/27/2015 MCH 29.6 07/27/2015 MCHC 32.6 07/27/2015 PLATELET 354 07/27/2015 RDWCV 15.0* 07/27/2015 Lab Results Component Value Date NA 142 07/27/2015 K 4.1 07/27/2015 CL 104 07/27/2015 CO2 21* 07/27/2015 Lab Results Component Value Date BUN 20* 07/27/2015 CREATININE 1.68* 07/27/2015 No results found for: ALT, AST, GGT, ALKPHOS, BILITOT Micro: Left groin 07/24/15 Body Fluid Culture (Abnormal) Rare Staphylococcus aureus, MRSA ? Gram Stain (Abnormal) Few White Blood Cells seen Rare Gram Positive Cocci in clusters seen ? Specimen Source Information ? Specimen Type: Other ? LEFT GROIN ASPIRATION. ? Susceptibility ? Staphylococcus aureus, mrsa ? MICROSCAN METHOD ? Amoxicillin + Clavulanate Resistant ? Ampicillin Resistant ? Ampicillin + Sulbactam Resistant ? Cefazolin Resistant ? Ceftriaxone Resistant ? Ciprofloxacin Sensitive ? Clindamycin Sensitive ? Daptomycin 0.5 Sensitive ? Erythromycin Resistant ? Gentamicin Sensitive 1 ? Levofloxacin Sensitive ? Linezolid Sensitive ? Oxacillin Resistant 2 ? Penicillin Resistant ? Tetracycline Sensitive ? Trimethoprim/Sulfa Sensitive ? Vancomycin Sensitive Imaging: No new imaging at [facility] Impression:Chan Hurst is a 64 y.o. female with above mentioned multiple comorbidities p/w leftfoot wet gangrene to OSH with septic physiology wound cx yielded MRSA and pseudomonas,[facility].At [facility] she was initiated on iv vancomycin and pip tazo,s/p OR on 07/24/15 with left BKA,explantation of vascular graft and patch and exploration of left groin,cultures fromOR yielded MRSA.She developed PANDA in the setting of high vancomycin trough which could be likely culprit,her levels of vanco are trending down,we recommend to start iv daptomycin as an alternative for MRSA infection.Regarding pseudomonas which was isolated in the left foot wound s/p BKA and received approx 5 days of ceftazidime or pip tazo so we recommend to stop iv pip tazo Recommendation: Stop iv pip tazo Start Iv daptomycin 7 mg/kg/day every 48 hrs, Check CPK today and then weekly while on daptomycin F/u OR cultures ID service will continue to follow the patient,please page [phone] with questions Above recommendations were communicated with the primary team x Recommendations discussed with primary team. Consult service will continue to follow patient. Recommendations discussed with primary team. ID will sign off. Please page [phone] if further consultation required. Case discussed with ID attending Dr.Talbot NOLBERTO STARKEY MD, Fellow, Infectious Disease Pager [phone] Infectious Diseases Attending I saw the patient with the infectious diseases fellow, and agree with the presentation of data and the assessment and plan as outlined above. Karen Thornton MD Hospital Secretary Page [phone] 35 minutes of this 55 minute visit were spent on the floor/unit in counseling or coordination of care with the patient, regarding treatment of infection as detailed in note above. Plan of Care - Mariposa Wood RN - 07/27/2015 5:56 AM EST Problem: General Plan of Care Goal: Plan of Care Review Outcome: Ongoing (Interventions Implemented as Appropriate) 07/27/15 0552 Plan of Care Review Plan of Care Outcome Status ongoing (interventions implemented as appropriate) Progress progress toward functional goals as expected Coping/Psychosocial Response Interventions Plan of Care Reviewed with patient OUTCOME EVALUATION NOTE: OUTCOME SUMMARY: Patient's BP elevated 160-170s systolic overnight, confirmed with cuff pressure, treated with PRN labetalol and hydralazine with good effect. Pain effectively managed with PRN oxycodone and dilaudid HYDRAMATIC SPECIALIST. NPO at midnight and maintenance fluids at 50 cc/hr. L. Groin wound vac with approx 100 cc serosangoutput. PLAN MOVING FORWARD: OR today, pain control, SBP <150 INDIVIDUALIZED FALL PREVENTION: Assistance: 2 assist with turn/repo Supervision: Per Rn Surveillance: [facility] OUTCOME EVALUATION: Plan of Care - Josephine Sainz RN - 07/26/2015 7:01 PM EST Problem: General Plan of Care Goal: Plan of Care Review Outcome: Ongoing (Interventions Implemented as Appropriate) 07/25/15 1826 07/26/15 0800 Plan of Care Review Plan of Care Outcome Status ongoing (interventions implemented as appropriate) -- Progress progress toward functional goals as expected -- Coping/Psychosocial Response Interventions Plan of Care Reviewed with -- patient;significant other OUTCOME EVALUATION NOTE: OUTCOME SUMMARY: Patient resting in bed throughout the day, slept most of the day and easily arousible. Using HYDRAMATIC SPECIALIST appropriately, given prn oxycodone for pain managment. Continues to report pain in leg but falls aseep easily; pain associated with movement of leg. Requires 02. Given bowel meds. Garnica patent. changed leg dressing at 1845 tonight due to not going to OR until tomorrow. Significant other and family member at bedside throughout the day. Turned from side to side to stay off sacrum d/t very red roni sacrum, but blanchable. Given labetalol once for HTN. PLAN MOVING FORWARD: To the OR for procedure tomorrow. Neurovascular checks q4hrs. INDIVIDUALIZED FALL PREVENTION: Assistance: Two assist with turns Supervision: bedrest Surveillance: Carmona monitor CPG OUTCOME EVALUATION: Goal: Individualization and Mutuality Outcome: Ongoing (Interventions Implemented as Appropriate) 07/24/15 0424 Mutuality/Individual Preferences What anxieties, fears or concerns do you have about your health or care? nothing verbalized What questions do you have about your health or care? nothing verbalized What information would help us give you more personalized care? none verbalized Goal: Fall Prevention-Safe Patient Handling Outcome: Ongoing (Interventions Implemented as Appropriate) 07/25/15 0600 07/25/15199907/26/15 1800 Safety Interventions Safety Precautions/Fall Reduction -- -- fall reduction program maintained;lighting adjusted for task/safety;low bed Andino Fall Risk History of Falling -- 0 -- Secondary Diagnosis -- 15 -- Ambulatory Aids -- 0 -- Intravenous Therapy/Heparin/Saline Lock -- 20 -- Gait/Transferring -- 10 -- Mental Status -- 0 -- Score -- 45 -- Activity and Safety Assistive Device Oxygen -- -- OTHER Andino Fall Risk -- High -- Musculoskeletal Interventions Activity/Level of Assistance -- -- bed rest Positioning -- -- HOB up 30-45 degrees Goal: Infection Control Outcome: Ongoing (Interventions Implemented as Appropriate) 07/26/15 0800 07/26/15 1800 Safety Interventions Isolation Precautions -- standard precautions maintained Infection Prevention blood glucose management;bronchial hygiene promoted;environmental surveillance;promote handwashing;rest/sleep promoted -- Coping/Psychosocial Response Interventions Counseling calming techniques promoted;relaxation techniques promoted;reassurance provided -- Goal: Discharge Needs Assessment Outcome: Ongoing (Interventions Implemented as Appropriate) 07/24/15 0425 07/24/15 0456 07/24/15 0458 Discharge Needs Assessment Concerns to be Addressed -- -- adjustment to diagnosis/illness concerns Self-Care Equipment Currently Used at Home -- cane, straight;walker, standard;shower chair -- Living Environment Transportation Available family or friend will provide -- -- Problem: Skin Integrity Impairment, Risk/Actual (Adult, Obstetrics) Goal: Identify Signs and Symptoms and Related Risk Factors Signs and symptoms and related risk factors are identified upon initiation of Human Response Clinical Practice Guideline (CPG) Outcome: Ongoing (Interventions Implemented as Appropriate) 07/26/15 184 Skin Integrity Impairment, Risk/Actual Personal Related Risk Factors (Skin Integrity Impairment, Risk/Actual) stress Treatment Related Related Risk Factors (Skin Integrity Impairment, Risk/Actual) invasive catheters;medication;surgery Goal: Skin Integrity/Wound Healing Patient will demonstrate the desired outcomes. Outcome: Ongoing (Interventions Implemented as Appropriate) 07/25/151825 Skin Integrity Impairment, Risk/Actual (Adult, Obstetrics) Skin Integrity/Wound Healing making progress toward outcome Problem: Lower Extremity Amputation (Adult) Goal: Signs and symptoms of listed potential problems will be absent or manageable (reference (LowerExtremity Amputation (Adult)) CPG) Outcome: Ongoing (Interventions Implemented as Appropriate) 07/25/15 18207/26/15 184 Lower Extremity Amputation Problems Assessed (Lower Extremity Amputation) -- all Problems Present (Lower Extremity Amputation) acute pain;functional decline/self-care deficit;situational response;residual limb management -- Problem: Pain, Acute (Adult, Obstetrics) Goal: Identify Signs and Symptoms and Related Risk Factors Signs and symptoms and related risk factors are identified upon initiation of Human Response Clinical Practice Guideline (CPG) Outcome: Ongoing (Interventions Implemented as Appropriate) 07/26/15 1840 Pain, Acute Related Risk Factors (Acute Pain) fatigue;positioning;stress;surgery Signs and Symptoms (Acute Pain) fatigue/weakness;sleep pattern alteration Consult Note - Bao Kumar, PharmD - 07/26/2015 7:43 AM EST Clinical Pharmacist Note-Vanc Chan Hurst [id number] 1950 Chan Hurst is a 64 y.o. female is being monitored due to antibiotic therapy which includes intravenous vancomycin. Regimen: Vancomycin Indication: treatment of MRSA LLE gangrene Initiation Date: 07/23/15 Day of Therapy: 5 Targeted Goal Range: 15 - 20 mcg/mL Pharmacokinetic information: Wt Readings from Last 1 Encounters: 07/24/15 52.7 kg (116 lb 2.9 oz) Ht Readings from Last 1 Encounters: 07/24/15 152.4 cm (5') Labs: Vancomycin: 07/23/2015: Vanc Trough 8.1 mg/L (Ref range: mg/L) 07/25/2015: Vanc Trough 23.2 mg/L (Ref range: mg/L); Vanc Trough 26.8 mg/L* (Critical; Ref range: mg/L) Creatinine clearance: 07/24/2015: Creatinine 0.35 mg/dL* (Low; Ref range: 0.70 - 1.20 mg/dL) 07/25/2015: Creatinine 0.91 mg/dL (Ref range: 0.70 - 1.20 mg/dL) 07/26/2015: Creatinine 1.45 mg/dL* (High; Ref range: 0.70 - 1.20 mg/dL) Recommendations: Dosing recommendations: ?? Based on this information, the patient's clearance of vancomycin continues to be poor, with a current half-life of about 58 hours. She should be at an adequate level to receive a dose tonight. It isrecommended to give a dose of 500 mg at 2100 (time) on 07/23/2015. Subsequent doses should be given when serum trough levels fall below 20 mcg/mL. Monitoring recommendations: ?? Recheck vancomycin serum trough levels at 0900 (time) on 07/29/2015. If significant improvement inSCr, BUN or fluid status occurs recheck serum trough levels. Once renal function improves a scheduled dosing frequency may be possible. Until then it is recommended to redose based upon serum trough levels. We will continue to monitor the patient as long as she remains on vancomycin therapy. Please watch SCr, BUN and fluid status closely. Please page the care area pharmacist with any questions you may have. Alternately, during off-hours you may call [phone] to contact a pharmacist. BAO KUMAR PHARMD Pager [phone] Plan of Care - Angelika Fox RN - 07/25/2015 6:46 PM EST Problem: General Plan of Care Goal: Plan of Care Review Outcome: Ongoing (Interventions Implemented as Appropriate) 07/25/15 1826 Plan of Care Review Plan of Care Outcome Status ongoing (interventions implemented as appropriate) Progress progress toward functional goals as expected Coping/Psychosocial Response Interventions Plan of Care Reviewed with patient OUTCOME EVALUATION NOTE: OUTCOME SUMMARY: Pt remains A & O x 4, lethargic but easily arousable - believes it is related to surgery and pain meds. VSS throughout shift. Left groin wound vac remains -75 mmHg with minimal serosanginous drainage as documented in output. LLE dressing CDI. Urine output averaging 15-25 ml/hr in AM - Florentino. MD Kulwinder notified and 1 L LR bolus ordered and administered. Urine output increased to ~30 ml/hr. Urine appears light yellow and clear. Encouraged PO fluids. Vanco trough 26.8 - 11AM dose held and plan to recheck vanco trough later this evening. Fair appetite with <50% of each meal consumed - encouraged good protein intake to promote wound healing. When awoken, pt would complain of LLE pains - reinforced HYDRAMATIC SPECIALIST education and administered PRN tylenol with good effect. Neurovascular assessments remain unchanged as documented in adult patient care summary. PLAN MOVING FORWARD: ~NPO at midnight in anticipation of OR washout tomorrow ~Reinforce HYDRAMATIC SPECIALIST education for pain management and supplement with PRNs ~Monitor I&O INDIVIDUALIZED FALL PREVENTION: Assistance: Bedrest; X 2 assist; call aparicio within reach and demonstrates appropriate use Supervision: Room near RN station Surveillance: Room near RN station CPG GOAL OUTCOME EVALUATION: Problem: Skin Integrity Impairment, Risk/Actual (Adult, Obstetrics) Goal: Skin Integrity/Wound Healing Patient will demonstrate the desired outcomes. Outcome: Ongoing (Interventions Implemented as Appropriate) 07/25/151825 Skin Integrity Impairment, Risk/Actual (Adult, Obstetrics) Skin Integrity/Wound Healing making progress toward outcome Problem: Lower Extremity Amputation (Adult) Goal: Signs and symptoms of listed potential problems will be absent or manageable (reference (LowerExtremity Amputation (Adult)) CPG) Outcome: Ongoing (Interventions Implemented as Appropriate) 07/25/151825 Lower Extremity Amputation Problems Assessed (Lower Extremity Amputation) all Problems Present (Lower Extremity Amputation) acute pain;functional decline/self-care deficit;situational response;residual limb management Problem: Pain, Acute (Adult, Obstetrics) Goal: Acceptable Pain Control/Comfort Level Patient will demonstrate the desired outcomes. Outcome: Ongoing (Interventions Implemented as Appropriate) 07/25/151825 Pain, Acute (Adult, Obstetrics) Acceptable Pain Control/Comfort Level making progress toward outcome Op Note - Chela Blancas - 07/24/2015 5:05 PM EST [facility] [place] Operative Note Patient Name: Chan Hurst : [id number] MR#: [id number] Case Date: 07/24/2015 Case Date: 07/24/2015 Surgeon: Surgeon(s) and Role: ? * Elicia Caal MD - Primary ? * Chela Blancas MD Preoperative diagnosis: wet gangrene, LLE Postoperative diagnosis: wet gangrene with infected PTFE bypass graft Procedure(s): 1. Left below-knee guillotine amputation 2. Incision and drainage of multiple LLE abscesses 3. Left common femoral artery exposure, debridement and repair with bovine pericardial patch. 4. Ligation and removal of thrombosed, infected left CLIENT SERVICES ASSOCIATE-PT PTFE bypass graft. ?? 5. Placement of wound vac. Anesthesia:GET Findings: Below-knee guillotine amputation performed of the LLE with large amounts of purulent drainage expressed from PTFE graft tunnel. Incision extended along medial calf , PTFE graft completely unincorporated and bathed in exudate. Small collection in left groin aspirated and returned infected-appearing fluid. Decision made to explant graft. Left groin incision re-opened, groin explored with healthy appearing artery, but prior bovine patch and PTFE anastomosis clearly infected. Proximal and distal control was obtained, PTFE graft ligated and resected; bovine pericardial patch resected, CLIENT SERVICES ASSOCIATE debrided and repaired with new bovine pericardial patch after copious wound irrigation. Complications: None apparent at case end. ? Fluids: 2L crystalloid Estimated Blood Loss: 150cc Heparin: 7,000 units total. Protamine: 20mg Drains: Vac dressing in left groin Disposition: PACU to ISCU Condition: Stable Specimens removed during surgery: 1. Left foot 2. PTFE bypass from LLE 3. Wound culture sent Surgical Closure: Other Than Primary Closure - superficial layers are left completely open during original surgery, deep layers completely closed HPI/Surgical Indications: 64 y.o. 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 Patient developed claudication in October 2014, this quickly progressed to rest pain. She underwent SFA to peroneal bypass with vein in 03-18-15. On 05-19-15 this bypass graft was noted to be occluded and her rest pain was persistent. She then underwent a second LLE bypass CLIENT SERVICES ASSOCIATE to PT with PTFE, on 05-26. This was found to be occluded on 06-01. Since that time the patient has had progressive worsening of her medial/distal surgical incision that has failed to heal. She presents now with wet gangrene and systemic signs of infection. Plan for amputat ion. Procedure Description: After informed consent was obtained the patient was brought to the operating room and placed supine on the OR table. General anesthesia was administered and the patient's airway was secured. Additional support lines were placed. Antibiotics were given without 1 hour of incision.A timeout was performed. Attention was turned to the patient's left leg. The left calf was incised circumferentially with a scalpel down to bone. A gigli saw was used then to divide the bone. The specimen was passed off the table. At this time it became evident that the patient's PTFE bypass graft wascompletely unincorporated and the tunnel filled with purulent fluid. A longitudinal incision along the medial aspect of the thigh was extended to just below the knee to better expose the graft and tunnel. Simultaneously, with clean instruments, the small bulge in the left groin was aspirated and returned exudate. At this time, it was clear that the entire bypass graft must be explanted and the left CLIENT SERVICES ASSOCIATE be explored. Hemostasis of the amputation site was achieved with electrocautery and interrupted silk sutures/ties on larger vessels. The wound was dressed with betadine soaked kerlex and an kenneth wrap. Discussions were had with the patient's family to notify them of the change in operative plan. An arterial line was placed and the patient was re-prepped and draped in sterile fashion. A second timeoutwas performed and our attention was turned to the patient's left groin where her prior longitudinal incision was re- opened with a scalpel. This was extended cephalad. Sharp dissection was used to dissect through copious scar tissue onto the EIA, CLIENT SERVICES ASSOCIATE, PTFE bypass graft with underlying bovine patch; previous vein graft coming off the SFA, SFA and profunda arteries. Each of these vessels was controlled with vessel loops. Systemic heparin was given and the vessels were clamped. The PTFE bypass graft wasremoved sharply with an 11-blade. At this time, the bovine pericardial patch appears to be well-incorporated and thus, was close primarily with running 5-0 prolene. However, when we unclamped the patchquickly from the underlying artery. All vessels were re-clamped. The patch was removed sharply with an 11-blade. The CLIENT SERVICES ASSOCIATE was debrided sharply with the 11-blade, back to healthy appearing tissue. The wound and graft tunnel were aggressively irrigated. The artery was then repaired with bovine pericardial patch angioplasty using 6-0 prolene in a running fashion. All vessels were unclamped. Doppler signals were confirmed in CLIENT SERVICES ASSOCIATE and profunda artery. Thrombin-soaked gelfoam was applied to achieve hemostasis. Protamine was given. Once we were satisfied with hemostasis a single layer of subcutaneous scar tissue was reapproximated over the artery with interrupted 3-0 vicryl sutures. A vac dressing was applied (white and then black sponge) and set to -75mmHg. At this time, a counter incision was made in the medial distal thigh and a juliano passed from the BKA through the prior PTFE graft tunnelto this incision to maintain patency and encourage drainage of the graft tunnel. The Guillotine stump was redressed with betadine soaked kerlex and an kenneth bandage. The patient was awoken, extubated and taken to PACU in stable condition. All counts correct. Dr. Caal present and scrubbed for the whole procedure. Infection Bundle used? NA Associated attestation - Elicia Caal MD - 07/25/2015 3:05 PM EST Attestation: Case Date: 07/24/2015 I was present and scrubbed for the entire procedure. ELICIA CAAL MD 07/25/2015 Brief Op Note - Chela Blancas - 07/24/2015 3:00 PM EST Brief Operative Note Patient Name: Chan Hurst : [id number] MR#: [id number] Case Date: 07/24/2015 Surgeon: Surgeon(s) and Role: * Elicia Caal MD - Primary * Chela Blancas MD Preoperative diagnosis: wet gangrene, LLE Postoperative diagnosis: wet gangrene with infected PTFE bypass graft Procedure(s): 1. Left below-knee guillotine amputation 2. Incision and drainage of multiple LLE abscesses 3. Left common femoral artery exposure, debridement and repair with bovine pericardial patch. 4. Ligation and removal of thrombosed, infected left CLIENT SERVICES ASSOCIATE-PT PTFE bypass graft. 5. Placement of wound vac. Anesthesia:GET Findings: Below-knee guillotine amputation performed of the LLE with large amounts of purulent drainage expressed from PTFE graft tunnel. Incision extended along medial calf , PTFE graft completely unincorporated and bathed in exudate. Small collection in left groin aspirated and returned infected-appearing fluid. Decision made to explant graft. Left groin incision re-opened, groin explored with healthy appearing artery, but prior bovine patch and PTFE anastomosis clearly infected. Proximal and distal control was obtained, PTFE graft ligated and resected; bovine pericardial patch resected, CLIENT SERVICES ASSOCIATE debrided and repaired with new bovine pericardial patch after copious wound irrigation. Complications: None apparent at case end. Fluids: 2L crystalloid Estimated Blood Loss: 150cc Heparin: 7,000 units total. Protamine: 20mg Drains: Vac dressing in left groin Disposition: PACU to ISCU Condition: Stable (Please see the Surgical Encounter Summary for any Implant and Specimen details pertinent to this patient.) Infection Bundle used? NA Plan of Care - Yocasta Lin RN - 07/24/2015 5:08 AM EST Problem: General Plan of Care Goal: Plan of Care Review Outcome: Ongoing (Interventions Implemented as Appropriate) 07/24/15 0458 Plan of Care Review Plan of Care Outcome Status ongoing (interventions implemented as appropriate) Progress no change Coping/Psychosocial Response Interventions Plan of Care Reviewed with patient OUTCOME EVALUATION NOTE: OUTCOME SUMMARY: Patient very sleepy most of night until 0400 patient is more awake. Patient alert and oriented at present. Patient turned every 2 hours with assist. Mepilex applied to sacral area which was red and blanchable on admission with a small fissure crack.. Left leg dressing dry and intact. Left foot cool totouch but patient reports sensation and is able to move foot and leg. Right Foot warm to touch and doppler checks done. Patient also able to move right foot and with sensation. IVF infusing as ordered.Garnica with clear yellow urine. Urine output a little low, MD aware. Patient is NPO. PLAN MOVING FORWARD: Monitor pain control and possible OR today. INDIVIDUALIZED FALL PREVENTION: Assistance: 2 assist and walker Supervision: 2 assist and walker Surveillance: Masimo, bed alarm and hourly rounds. CPG GOAL OUTCOME EVALUATION: Goal: Individualization and Mutuality Outcome: Ongoing (Interventions Implemented as Appropriate) Goal: Fall Prevention-Safe Patient Handling Outcome: Ongoing (Interventions Implemented as Appropriate) 07/23/15199907/23/15 2252 07/24/15 0000 Safety Interventions Safety Precautions/Fall Reduction bed alarm;fall reduction program maintained;lighting adjusted for task/safety -- -- Andino Fall Risk History of Falling -- 0 -- Secondary Diagnosis -- 15 -- Ambulatory Aids -- 0 -- Intravenous Therapy/Heparin/Saline Lock -- 20 -- Gait/Transferring -- 0 -- Mental Status -- 0 -- Score -- 35 -- OTHER Andino Fall Risk -- Med -- Musculoskeletal Interventions Activity/Level of Assistance bed rest -- -- Positioning -- -- HOB up 30 degrees;right side Goal: Infection Control Outcome: Ongoing (Interventions Implemented as Appropriate) 07/23/15199907/24/15457 Safety Interventions Isolation Precautions -- standard precautions maintained Infection Prevention -- blood glucose management;environmental surveillance Coping/Psychosocial Response Interventions Counseling calming techniques promoted;emotional support provided -- Goal: Discharge Needs Assessment Outcome: Ongoing (Interventions Implemented as Appropriate) 07/24/1542407/24/15457 Discharge Needs Assessment Concerns to be Addressed -- adjustment to diagnosis/illness concerns Living Environment Transportation Available family or friend will provide -- Downtime Event Note - Yocasta Lin RN - 07/24/2015 3:45 AM EST Down time 1 hr 30 minutes 0200 to 0330. documented in this encounter Plan of Treatment Scheduled Referrals Name Type Priority Associated Order Schedule Diagnoses OPAT: Order / Outpatient Referral Routine Infected Ordered : Recommendation for Post prosthetic 07/09 Discharge IV Antibiotic vascular graft, Management initial encounte r Critical lower limb ischemia Status post above knee amputation of left lower extremity documented as of this encounter Procedures Procedure Name Priority Date/Time Associated Comments Diagnosis LAB SCAN 08/04/2015 12:00 AM EST PERPETUAL INVENTORY CLERK SCAN 08/04/2015 12:[address] PICC LINE: STAT 08/03/2015 12:25 Results for this CONTACT VASCULAR PM EST procedure a re in ACCESS the results section. XR PICC PLACEMENT STAT 08/03/2015 12:23 Result s for this OVER 5 YEARS (IV PM EST procedure a re in TEAM) the results section. POCT GLUCOSE Routine 08/03/2015 11:09 Results for this AM EST procedure are i n the results section. POCT GLUCOSE Routine 08/03/2015 7:02 AM Results f or this EST procedure are i n the results section. HEMOGRAM Routine 08/03/2015 4:40 AM Results f or this EST procedure are i n the results section. DIFFERENTIAL, Routine 08/03/2015 4:40 AM Results for this AUTOMATED EST procedure are i n the results section. CBC (WITH DIFF) Routine 08/03/2015 4:40 AM EST BASIC METABOLIC PANEL Routine 08/03/2015 4:40 AM Results for this (NON-FASTING) EST procedure are in the results section. POCT GLUCOSE Routine 08/03/2015 3:32 AM Results f or this EST procedure are i n the results section. POCT GLUCOSE Routine 08/03/2015 12:00 Results for this AM EST procedure are i n the results section. POCT GLUCOSE Routine 08/02/2015 7:17 PM Results f or this EST procedure are i n the results section. POCT GLUCOSE Routine 08/02/2015 4:32 PM Results f or this EST procedure are i n the results section. U24 HRS AND VOLUME Routine 08/02/2015 12:35 Resul ts for this PM EST procedure are i n the results section. CREATININE CLEARANCE, Routine 08/02/2015 12:35 Re sults for this URINE, 24 HOUR PM EST procedure are in the results section. POCT GLUCOSE Routine 08/02/2015 11:55 Results for this AM EST procedure are i n the results section. TRANSFUSE RED BLOOD Routine 08/02/2015 9:45 AM CELLS EST ABO/RH TYPING Routine 08/02/2015 8:27 AM Results for this EST procedure are i n the results section. ANTIBODY SCREEN Routine 08/02/2015 8:27 AM Result s for this EST procedure are i n the results section. TYPE AND SCREEN Routine 08/02/2015 8:27 AM ([facility] [place]/CGP/BALDOMERO) EST PREPARE RBC Routine 08/02/2015 8:15 AM Results f or this EST procedure are i n the results section. POCT GLUCOSE Routine 08/02/2015 7:02 AM Results f or this EST procedure are i n the results section. HEMOGRAM Routine 08/02/2015 5:05 AM Results f or this EST procedure are i n the results section. DIFFERENTIAL, Routine 08/02/2015 5:05 AM Results for this AUTOMATED EST procedure are i n the results section. CBC (WITH DIFF) Routine 08/02/2015 5:05 AM EST BASIC METABOLIC PANEL Routine 08/02/2015 5:05 AM Results for this (NON-FASTING) EST procedure are in the results section. POCT GLUCOSE Routine 08/02/2015 3:08 AM Results f or this EST procedure are i n the results section. POCT GLUCOSE Routine 08/02/2015 12:08 Results for this AM EST procedure are i n the results section. POCT GLUCOSE Routine 08/01/2015 6:52 PM Results f or this EST procedure are i n the results section. POCT GLUCOSE Routine 08/01/2015 4:40 PM Results f or this EST procedure are i n the results section. CYSTATIN C Routine 08/01/2015 1:50 PM Results f or this EST procedure are i n the results section. POCT GLUCOSE Routine 08/01/2015 12:29 Results for this PM EST procedure are i n the results section. XR CHEST PA AND Routine 08/01/2015 12:02 Results for this LATERAL PM EST procedure are i n the results section. POCT GLUCOSE Routine 08/01/2015 8:13 AM Results f or this EST procedure are i n the results section. HEMOGRAM Routine 08/01/2015 4:39 AM Results f or this EST procedure are i n the results section. DIFFERENTIAL, Routine 08/01/2015 4:39 AM Results for this AUTOMATED EST procedure are i n the results section. CBC (WITH DIFF) Routine 08/01/2015 4:39 AM EST BASIC METABOLIC PANEL Routine 08/01/2015 4:39 AM Results for this (NON-FASTING) EST procedure are in the results section. POCT GLUCOSE Routine 07/31/2015 9:23 PM Results f or this EST procedure are i n the results section. POCT GLUCOSE Routine 07/31/2015 4:37 PM Results f or this EST procedure are i n the results section. POCT GLUCOSE Routine 07/31/2015 3:03 PM Results f or this EST procedure are i n the results section. POCT GLUCOSE Routine 07/31/2015 12:46 Results for this PM EST procedure are i n the results section. C. DIFFICILE SCREEN Routine 07/31/2015 12:46 Resu lts for this PM EST procedure are i n the results section. POCT GLUCOSE Routine 07/31/2015 12:44 Results for this PM EST procedure are i n the results section. URINALYSIS WITH Routine 07/31/2015 9:50 AM Result s for this REFLEX CULTURE EST procedure are in the results section. URINE CULTURE Routine 07/31/2015 9:50 AM Results for this EST procedure are i n the results section. HEMOGRAM STAT 07/31/2015 7:29 AM Results f or this EST procedure are i n the results section. DIFFERENTIAL, STAT 07/31/2015 7:29 AM Results for this AUTOMATED EST procedure are i n the results section. CBC (WITH DIFF) STAT 07/31/2015 7:29 AM EST BASIC METABOLIC PANEL STAT 07/31/2015 7:29 AM Results for this (NON-FASTING) EST procedure are in the results section. POCT GLUCOSE Routine 07/31/2015 7:28 AM Results f or this EST procedure are i n the results section. POCT GLUCOSE Routine 07/31/2015 1:23 AM Results f or this EST procedure are i n the results section. POCT GLUCOSE Routine 07/30/2015 9:28 PM Results f or this EST procedure are i n the results section. POCT GLUCOSE Routine 07/30/2015 5:30 PM Results f or this EST procedure are i n the results section. POCT GLUCOSE Routine 07/30/2015 1:22 PM Results f or this EST procedure are i n the results section. POCT GLUCOSE Routine 07/30/2015 11:43 Results for this AM EST procedure are i n the results section. HEMOGRAM Routine 07/30/2015 8:11 AM Results f or this EST procedure are i n the results section. DIFFERENTIAL, Routine 07/30/2015 8:11 AM Results for this AUTOMATED EST procedure are i n the results section. CBC (WITH DIFF) Routine 07/30/2015 8:11 AM EST BASIC METABOLIC PANEL Routine 07/30/2015 8:11 AM Results for this (NON-FASTING) EST procedure are in the results section. POCT GLUCOSE Routine 07/30/2015 7:55 AM Results f or this EST procedure are i n the results section. POCT GLUCOSE Routine 07/29/2015 4:08 PM Results f or this EST procedure are i n the results section. POCT GLUCOSE Routine 07/29/2015 1:27 PM Results f or this EST procedure are i n the results section. SURGICAL PATHOLOGY Routine 07/29/2015 12:34 Resul ts for this REPORT PM EST procedure are i n the results section. SPECIMEN TO PATHOLOGY Routine 07/29/2015 12:34 Re sults for this PM EST procedure are i n the results section. AMPUTATION, 07/29/2015 11:46 left groin wound ABOVE-KNEE, SECONDARY AM EST vac CLOSURE OR SCAR REVISION (WRVU 7.29) DRESSING CHANGE (FOR 07/29/2015 11:46 left groin wound OTHER THAN ESCALANTE) AM EST vac UNDER ANES., LOWER EXTREMITY (WRVU 0.86) POCT GLUCOSE Routine 07/29/2015 11:40 Results for this AM EST procedure are i n the results section. AMPUTATION, Routine 07/29/2015 10:53 ABOVE-KNEE, SECONDARY AM EST CLOSURE OR SCAR REVISION POCT GLUCOSE Routine 07/29/2015 7:45 AM Results f or this EST procedure are i n the results section. RENAL DUPLEX COMPLETE Routine 07/29/2015 6:46 AM Results for this EST procedure are i n the results section. HEMOGRAM Routine 07/29/2015 2:13 AM Results f or this EST procedure are i n the results section. DIFFERENTIAL, Routine 07/29/2015 2:13 AM Results for this AUTOMATED EST procedure are i n the results section. CBC (WITH DIFF) Routine 07/29/2015 2:13 AM EST URIC ACID Routine 07/29/2015 2:13 AM Results f or this EST procedure are i n the results section. BASIC METABOLIC PANEL Routine 07/29/2015 2:13 AM Results for this (NON-FASTING) EST procedure are in the results section. POCT GLUCOSE Routine 07/28/2015 7:48 PM Results f or this EST procedure are i n the results section. POCT GLUCOSE Routine 07/28/2015 4:27 PM Results f or this EST procedure are i n the results section. DRESSING CHANGE (FOR Routine 07/28/2015 12:37 OTHER THAN ESCALANTE) PM EST UNDER ANES., LOWER EXTREMITY POCT GLUCOSE Routine 07/28/2015 11:26 Results for this AM EST procedure are i n the results section. DRESSING CHANGE (FOR Routine 07/28/2015 8:43 AM OTHER THAN ESCALANTE) EST UNDER ANES., LOWER EXTREMITY FLAP, MYOCUTANEOUS OR Routine 07/28/2015 8:43 AM FASCIOCUTANEOUS, EST LOWER EXTREMITY POCT GLUCOSE Routine 07/28/2015 7:46 AM Results f or this EST procedure are i n the results section. TSH Routine 07/28/2015 7:37 AM Results f or this EST procedure are i n the results section. PREALBUMIN Routine 07/28/2015 7:37 AM Results f or this EST procedure are i n the results section. HEPATIC FUNCTION Routine 07/28/2015 7:37 AM Resul ts for this PANEL EST procedure are i n the results section. ELECTROLYTES, URINE, Routine 07/28/2015 7:31 AM R esults for this RANDOM EST procedure are i n the results section. CREATININE, URINE, Routine 07/28/2015 7:31 AM Res ults for this RANDOM EST procedure are i n the results section. HEMOGRAM Routine 07/28/2015 4:30 AM Results f or this EST procedure are i n the results section. DIFFERENTIAL, Routine 07/28/2015 4:30 AM Results for this AUTOMATED EST procedure are i n the results section. CBC (WITH DIFF) Routine 07/28/2015 4:30 AM EST BASIC METABOLIC PANEL Routine 07/28/2015 4:30 AM Results for this (NON-FASTING) EST procedure are in the results section. POCT GLUCOSE Routine 07/27/2015 9:18 PM Results f or this EST procedure are i n the results section. POCT GLUCOSE Routine 07/27/2015 5:58 PM Results f or this EST procedure are i n the results section. CK Routine 07/27/2015 5:10 PM Results f or this EST procedure are i n the results section. POCT GLUCOSE Routine 07/27/2015 3:52 PM Results f or this EST procedure are i n the results section. DEBRIDEMENT SKIN AND 07/27/2015 1:17 PM LLE stan BKA, SUBCU, LOWER EST left groin wound EXTREMITY (WRVU 1.01) with wound vac in place MODIFIER WOUND VAC 07/27/2015 1:17 PM LLE stan B KA, EST left groin wound with wound vac in place FLAP, MYOCUTANEOUS OR 07/27/2015 1:17 PM LLE rashad hodges BKA, FASCIOCUTANEOUS, EST left groin wound LOWER EXTREMITY (WRVU with wound vac in 19.04) place POCT GLUCOSE Routine 07/27/2015 11:44 Results for this AM EST procedure are i n the results section. POCT GLUCOSE Routine 07/27/2015 8:16 AM Results f or this EST procedure are i n the results section. HEMOGRAM Routine 07/27/2015 5:12 AM Results f or this EST procedure are i n the results section. DIFFERENTIAL, Routine 07/27/2015 5:12 AM Results for this AUTOMATED EST procedure are i n the results section. CBC (WITH DIFF) Routine 07/27/2015 5:12 AM EST BASIC METABOLIC PANEL Routine 07/27/2015 5:12 AM Results for this (NON-FASTING) EST procedure are in the results section. VANCOMYCIN, TROUGH Timed 07/26/2015 10:01 Resul ts for this PM EST procedure are i n the results section. ABO/RH TYPING Routine 07/26/2015 4:25 PM Results for this EST procedure are i n the results section. ANTIBODY SCREEN Routine 07/26/2015 4:25 PM Result s for this EST procedure are i n the results section. TYPE AND SCREEN Routine 07/26/2015 4:25 PM ([facility]) EST BASIC METABOLIC PANEL STAT 07/26/2015 4:15 PM Results for this (NON-FASTING) EST procedure are in the results section. POCT GLUCOSE Routine 07/26/2015 3:38 PM Results f or this EST procedure are i n the results section. POCT GLUCOSE Routine 07/26/2015 11:49 Results for this AM EST procedure are i n the results section. POCT GLUCOSE Routine 07/26/2015 7:57 AM Results f or this EST procedure are i n the results section. HEMOGRAM Routine 07/26/2015 1:40 AM Results f or this EST procedure are i n the results section. DIFFERENTIAL, Routine 07/26/2015 1:40 AM Results for this AUTOMATED EST procedure are i n the results section. CBC (WITH DIFF) Routine 07/26/2015 1:40 AM EST BASIC METABOLIC PANEL Routine 07/26/2015 1:40 AM Results for this (NON-FASTING) EST procedure are in the results section. VANCOMYCIN, TROUGH Timed 07/25/2015 10:00 Resul ts for this PM EST procedure are i n the results section. POCT GLUCOSE Routine 07/25/2015 7:51 PM Results f or this EST procedure are i n the results section. POCT GLUCOSE Routine 07/25/2015 5:34 PM Results f or this EST procedure are i n the results section. POCT GLUCOSE Routine 07/25/2015 11:48 Results for this AM EST procedure are i n the results section. VANCOMYCIN, TROUGH Timed 07/25/2015 10:28 Resul ts for this AM EST procedure are i n the results section. POCT GLUCOSE Routine 07/25/2015 8:00 AM Results f or this EST procedure are i n the results section. NUCLEATED RED BLOOD Routine 07/25/2015 2:01 AM Re sults for this CELLS EST procedure are i n the results section. HEMOGRAM Routine 07/25/2015 2:01 AM Results f or this EST procedure are i n the results section. DIFFERENTIAL, Routine 07/25/2015 2:01 AM Results for this AUTOMATED EST procedure are i n the results section. CBC (WITH DIFF) Routine 07/25/2015 2:01 AM EST BASIC METABOLIC PANEL Routine 07/25/2015 2:01 AM Results for this (NON-FASTING) EST procedure are in the results section. POCT GLUCOSE Routine 07/24/2015 3:33 PM Results f or this EST procedure are i n the results section. DRESSING CHANGE (VAC Routine 07/24/2015 3:20 PM ASSISTED) UP TO EST 50SQ.CM EXCISION OF INFECTED Routine 07/24/2015 3:20 PM GRAFT FROM LOWER EST EXTREMITY EXPLORATION, W/WO Routine 07/24/2015 3:20 PM LYSIS,FEMORAL ARTERY EST W\O SURGICAL REPAIR REPAIR LOWER Routine 07/24/2015 3:20 PM EXTREMITY BLOOD EST VESSEL, DIRECT, NO PATCH OR GRAFT BLOOD GAS 2 ARTERIAL Routine 07/24/2015 2:32 PM R esults for this EST procedure are i n the results section. BLOOD GAS 2 ARTERIAL Routine 07/24/2015 1:41 PM R esults for this EST procedure are i n the results section. BLOOD GAS 2 ARTERIAL Routine 07/24/2015 12:55 Res ults for this PM EST procedure are i n the results section. ANAEROBIC CULTURE Routine 07/24/2015 12:00 Result s for this PM EST procedure are i n the results section. BODY FLUID CULTURE, Routine 07/24/2015 12:00 AEROBIC & ANAEROBIC PM EST BODY FLUID CULTURE, Routine 07/24/2015 12:00 Resu lts for this AEROBIC PM EST procedure are i n the results section. SURGICAL PATHOLOGY Routine 07/24/2015 11:26 Resul ts for this REPORT AM EST procedure are i n the results section. SPECIMEN TO PATHOLOGY Routine 07/24/2015 11:26 Re sults for this AM EST procedure are i n the results section. EXCISION OF INFECTED 07/24/2015 10:58 wet gangrene GRAFT FROM LOWER AM EST EXTREMITY (WRVU 9.53) REPAIR LOWER 07/24/2015 10:58 wet gangrene EXTREMITY BLOOD AM EST VESSEL, DIRECT, NO PATCH OR GRAFT (WRVU 15.3) DRESSING CHANGE (VAC 07/24/2015 10:58 wet gangrene ASSISTED) UP TO AM EST 50SQ.CM (WRVU 0.55) @EXPLORATION, W/WO 07/24/2015 10:58 wet gangrene LYSIS, FEMORAL ARTERY AM EST W\O SURGICAL REPAIR (WRVU 7.72) @AMPUTATION, 07/24/2015 10:58 wet gangrene BELOW-KNEE, OPEN, AM EST GUILLOTINE (WRVU 9.79) POCT GLUCOSE Routine 07/24/2015 7:29 AM Results f or this EST procedure are i n the results section. NUCLEATED RED BLOOD Routine 07/24/2015 5:03 AM Re sults for this CELLS EST procedure are i n the results section. HEMOGRAM Routine 07/24/2015 5:03 AM Results f or this EST procedure are i n the results section. DIFFERENTIAL, Routine 07/24/2015 5:03 AM Results for this AUTOMATED EST procedure are i n the results section. CBC (WITH DIFF) Routine 07/24/2015 5:03 AM EST BASIC METABOLIC PANEL Routine 07/24/2015 5:03 AM Results for this (NON-FASTING) EST procedure are in the results section. POCT GLUCOSE Routine 07/23/2015 9:06 PM Results f or this EST procedure are i n the results section. HEMOGRAM Routine 07/23/2015 8:50 PM Results f or this EST procedure are i n the results section. DIFFERENTIAL, Routine 07/23/2015 8:50 PM Results for this AUTOMATED EST procedure are i n the results section. ABO/RH TYPING Routine 07/23/2015 8:50 PM Results for this EST procedure are i n the results section. CBC (WITH DIFF) Routine 07/23/2015 8:50 PM EST ANTIBODY SCREEN Routine 07/23/2015 8:50 PM Result s for this EST procedure are i n the results section. TYPE AND SCREEN Routine 07/23/2015 8:50 PM ([facility]) EST VANCOMYCIN, TROUGH Timed 07/23/2015 8:50 PM Res ults for this EST procedure are i n the results section. BASIC METABOLIC PANEL Routine 07/23/2015 8:50 PM Results for this (NON-FASTING) EST procedure are in the results section. AMPUTATION, Routine 07/23/2015 8:18 PM BELOW-KNEE, OPEN, EST ANAHI documented in this encounter Results SCAN DOC: PERPETUAL INVENTORY CLERK (08/04/2015 12:00 AM EST) Narrative This result has an attachment that is no t available. Scanning Provider MEDIA MGR SCAN EXT ORDR/RSLT SCAN DOC: LAB (08/04/2015 12:00 AM EST) Narrative This result has an attachment that is no t available. Scanning Provider MEDIA MGR SCAN EXT ORDR/RSLT Place PICC Line: Contact Vascular Access Page [phone] Extremity to exclude: No restrictions; Is PICC procedure required PRIOR to patients discharge?: Yes (08/03/2015 12:25 PM EST) Narrative Javier Flores RN - 08/03/2015 12:25 P M EST Javier Flores RN ? 08/03/2015 12:25 PM PICC/Midline Insertion Procedure Note Indications: Anti-infective This insertion was not to replace a malf unctioning catheter. This insertion was not due to a suspecte d line-associated infection. Location of Procedure: X-Ray Room 11 Risks and Benefits: The risks and benefits of this procedure were reviewed and informed consent was obtained. Time Out: Prior to the start of the procedure, the patient's identity, intended procedure, site/side, correct p atient positioning and presence of the site magen was confirmed as applicable. The medical history and chart were reviewed to rule out potential contraindications to the planned procedu re. Hand Hygiene: The rabbit dresser did perform hand hygiene pr ior to line insertion. Catheter type: PICC Lot number: [id number] Procedure Technique: Skin was prepped with chlorhexidine. Skin preparation agent was completely dr y at the time of first skin puncture. The following barrier precaution methods were used:large sterile drape, maske/eye shield, large sterile g own, sterile gloves and cap. 2 ml of 1% Lidocaine was used for skin w heal. Ultrasound was used for guidance. ??Radiographic contrast ag ent was not injected for vein identification. Procedure Details: Order received for catheter placement. A 4 Fr. double lumen Bard Power catheter was placed into the right basilic vein over a 0.018 inch guidewire using modified seld delilah technique and fluoroscopy. Arm circumference was 23 cm at 2 cm above the insertion site. Final catheter length (with trimming): 3 5 cm Internal: 35 cm External: 0 cm Tip in SVC per MD RADHA. The line was not placed over a guidewire . Post Procedure: Diagnosis: S/p surergy for diverticuliti s. Blood return noted on aspiration of line after placement confirmed. 2 mls of normal saline infuse d free flowing to gravity via PICC after insertion. Sterile dressi ng applied: CHG Impregnated Tegaderm. Findings: The patient did tolerate the procedure w ell. No Complications. Procedure Comments: JAVIER FLORES RN 08/03/2015 Elicia Caal MD PROCEDURE/MINOR SURGICAL ORD ERABLES XR Vas Venous Access (PICC Placement) (08/03/2015 12:23 PM EST) Anatomical Region Laterality Modality N/A Radio Fluoroscopy Specimen (Source) Anatomical Location Collection Method / Collectio n Time Received Time / Laterality Volume Impressions 08/03/2015 12:28 PM EST IMPRESSION: Interval placement of a right upper extremity PICC with distal catheter tip projecting over the lower S VC. Narrative 08/03/2015 12:28 PM EST EXAMINATION: XR PLACEMENT PICC LINE (IV TEAM) OVER 5 YEARS CLINICAL HISTORY: Confirmation of PICC l ine placement, IV Antibiotic Therapy TECHNIQUE: C-arm placement of PICC. Limi ayleen view of the line tip only. COMPARISON: Sitting upright AP and later al radiographs of the chest, 08/01/2015. FINDINGS: Intraprocedural coned down sup ine frontal radiograph of the mediastinum demonstrates a Right PICC, w ith the catheter tip projecting over the lower SVC. Procedure Note Estrellita Cannon MD - 08/03/2015Formatt ing of this note might be different from the original. EXAMINATION: XR PLACEMENT PICC LINE (IV TEAM) OVER 5 YEARS CLINICAL HISTORY: Confirmation of PICC l ine placement, IV Antibiotic Therapy TECHNIQUE: C-arm placement of PICC. Limi ayleen view of the line tip only. COMPARISON: Sitting upright AP and later al radiographs of the chest, 08/01/2015. FINDINGS: Intraprocedural coned down sup ine frontal radiograph of the mediastinum demonstrates a Right PICC, w ith the catheter tip projecting over the lower SVC. IMPRESSION IMPRESSION: Interval placement of a righ t upper extremity PICC with distal catheter tip projecting over the lower S VC. Elicia Caal MD IMG FLUORO ORDERABLES POCT Glucose (08/03/2015 11:09 AM EST) athologist Signature POC Glucose 197 65 - 199 CERNER mg/dL MILLENNIUM Comment: Supplemental ranges: <140 mg/dL before meals <180 mg/dL all other times of the day Specimen Anatomical Collection Method Collection Time Receive d Time (Source) Location / / Volume Laterality Blood specimen 08/03/2015 11:09 6 (specimen) AM EST 11:09 AM EST Elicia Caal MD POINT OF CARE TEST ORDERABLE S Performing Organization Address City/State/ZIP [place] [address] CERNER MILLENNIUM POCT Glucose (08/03/2015 7:02 AM EST) athologist Signature POC Glucose 162 65 - 199 CERNER mg/dL MILLENNIUM Comment: Supplemental ranges: <140 mg/dL before meals <180 mg/dL all other times of the day Specimen Anatomical Collection Method Collection Time Receive d Time (Source) Location / / Volume Laterality Blood specimen 08/03/2015 7:02 AM 016 7:02 (specimen) EST AM EST Elicia Caal MD POINT OF CARE TEST ORDERABLE S Performing Organization Address City/State/[place]IP [place] [address] CERNER MILLENNIUM (ABNORMAL) Differential, Automated (08/03/2015 4:40 AM EST) [facility] gist Method Time Signature Neutrophils % 79.1 % CERNER MILLENNIUM Neutr Abs (ANC) 9.28 (H) 1.50 - CERNER 6.30 MILLENNIUM x10(3)/mc L Lymphocytes % 9.6 % CERNER MILLENNIUM Lymphocytes Abs 1.1 1.0 - 3.6 CERNER x10(3)/mc MILLENNIUM L Monocytes % 8.6 % CERNER MILLENNIUM Monocyte Abs 1.0 0.2 - 1.0 CERNER x10(3)/mc MILLENNIUM L Eosinophils % 1.8 % CERNER MILLENNIUM Eosinophils Abs 0.2 0.0 - 0.5 CERNER x10(3)/mc MILLENNIUM L Basophils % 0.6 % CERNER MILLENNIUM Basophils Abs 0.1 0.0 - 0.2 CERNER x10(3)/mc MILLENNIUM L Immature Gran % 0.30 % CERNER MILLENNIUM Comment: Immature granulocytes(IG's)percentage an d absolute count will include metamyelocytes, myelocytes, and promyelo cytes. Blood smears from CBCs yielding IG's will be scanned manually for concor dance. If this scan disagrees with the automated IG or if promyelocytes are not ed, a manual differential will be performed. Rosenda Gran Abs 0.03 0.00 - 0.05 x10(3)/mcL CER NER MILLENNIUM Specimen Anatomical Collection Method Collection Time Receive d Time (Source) Location / / Volume Laterality Blood specimen 08/03/2015 4:40 AM 016 4:57 (specimen) EST AM EST Resulting Agency Comment Spec In Lab Elicia Caal MD HEMATOLOGY ORDERABLES Performing Organization Address City/State/ZIP Code Phon e Number [place] [phone] CERNER MILLENNIUM (ABNORMAL) Hemogram (08/03/2015 4:40 AM EST) P athologist Signature WBC 11.7 (H) 4.0 - 10.0 CERNER x10(3)/mcL MILLENNIUM RBC 3.00 (L) 3.93 - CERNER 5.22 MILLENNIUM x10(6)/mcL Hemoglobin 8.8 (L) 11.2 - CERNER 15.7 gm/dL MILLENNIUM Hematocrit 26.7 (L) 34.0 - CERNER 45.0 % MILLENNIUM MCV 89.0 79.0 - CERNER 94.0 fL MILLENNIUM MCH 29.3 26.6 - CERNER 32.2 pg MILLENNIUM MCHC 33.0 32.0 - CERNER 36.5 gm/dL MILLENNIUM Platelets 407 (H) 145 - 370 CERNER x10(3)/mcL MILLENNIUM RDWSD 52.4 (H) 35.0 - CERNER 46.0 fL MILLENNIUM RDWCV 16.2 (H) 10.9 - CERNER 14.4 % MILLENNIUM MPV 10.6 9.0 - 12.0 CERNER fL MILLENNIUM Specimen Anatomical Collection Method Collection Time Receive d Time (Source) Location / / Volume Laterality Blood specimen 08/03/2015 4:40 AM 016 4:57 (specimen) EST AM EST Resulting Agency Comment Spec In Lab Elicia Caal MD HEMATOLOGY ORDERABLES Performing Organization Address City/State/Z[place] [address] CERNER MILLENNIUM (ABNORMAL) Basic Metabolic Panel (non-fasting) (08/03/2015 4:40 AM EST) P athologist Signature Glucose Lvl 152 65 - 199 CERNER mg/dL MILLENNIUM Comment: Diabetes: >=200 mg/dL plus symp toms BUN 20 (H) 8 - 18 mg/dL CERNER MILLENNIUM Creatinine 1.31 (H) 0.70 - 1.20 mg/dL CERNER MILL ENNIUM Comment: Please note that the pediatric reference intervals supplied above were not validated at [facility]. Results from pediatri c patients should be interpreted in conjunction to the patient's age, height and muscle mass. Sodium 139 135 - 145 mmol/L CERNER KINGSLEY NIUM Potassium 4.1 3.5 - 5.0 mmol/L CERNER KINGSLEY NIUM Comment: Please note: ??Patients with WBC >100,00 0 may have falsely elevated Potassium levels. ??For accurate Potassium quantif ication in these patients send serum separator tube (gold top) for subsequent determinations. ??Contact the Clinical Chemistry Laboratory if there are any qu estions. Chloride 101 98 - 107 mmol/L CERNER MILLENN IUM CO2 25 22 - 31 mmol/L CERNER MILLENNI UM Anion Gap 13 5 - 15 mmol/L CERNER MILLENNIU M Calcium 8.0 (L) 8.5 - 10.5 mg/dL CERNER KINGSLEY NIUM Estimated GFR 41 (L) >=60 CERNER MILLENNIU M Comment: This [...] the following links into your internet browser. [email or web address] Specimen Anatomical Collection Method Collection Time Receive d Time (Source) Location / / Volume Laterality Blood specimen 08/03/2015 4:40 AM 016 4:57 (specimen) EST AM EST Resulting Agency Comment Spec In Lab Elicia Caal MD CHEMISTRY ORDERABLES Performing Organization Address [facility] Phon e Number [address] CERNER MILLENNIUM POCT Glucose (08/03/2015 3:32 AM EST) P athologist Signature POC Glucose 145 65 - 199 CERNER mg/dL MILLENNIUM Comment: Supplemental ranges: <140 mg/dL before meals <180 mg/dL all other times of the day Specimen Anatomical Collection Method Collection Time Receive d Time (Source) Location / / Volume Laterality Blood specimen 08/03/2015 3:32 AM 016 3:32 (specimen) EST AM EST Elicia Caal MD POINT OF CARE TEST ORDERABLE S Performing Organization Address [facility] [place] [address] CERNER MILLENNIUM POCT Glucose (08/03/2015 12:00 AM EST) P athologist Signature POC Glucose 142 65 - 199 CERNER mg/dL MILLENNIUM Comment: Supplemental ranges: <140 mg/dL before meals <180 mg/dL all other times of the day Specimen (Source) Anatomical Collection Method Collection Time Re ceived Time Location / / Volume Laterality Blood specimen 08/03/2015 08/03/2015 12 :00 (specimen) AM EST Elicia Caal MD POINT OF CARE TEST ORDERABLE S Performing Organization Address City/State/ZIP Code Phon e Number [address] CERNER MILLENNIUM POCT Glucose (08/02/2015 7:17 PM EST) athologist Signature POC Glucose 181 65 - 199 CERNER mg/dL [facility] Comment: Supplemental ranges: <140 mg/dL before meals <180 mg/dL all other times of the day Specimen Anatomical Collection Method Collection Time Receive d Time (Source) Location / / Volume Laterality Blood specimen 08/02/2015 7:17 PM 016 7:17 (specimen) EST PM EST Elicia Caal MD POINT OF CARE TEST ORDERABLE S Performing Organization Address City/State/ZIP Code Phon e Number [address] CERNER MILLENNIUM (ABNORMAL) POCT Glucose (08/02/2015 4:32 PM EST) athologist Signature POC Glucose 223 (H) 65 - 199 CERNER mg/dL [facility] Comment: Supplemental ranges: <140 mg/dL before meals <180 mg/dL all other times of the day Specimen Anatomical Collection Method Collection Time Receive d Time (Source) Location / / Volume Laterality Blood specimen 08/02/2015 4:32 PM 016 4:32 (specimen) EST PM EST Elicia Caal MD POINT OF CARE TEST ORDERABLE S Performing Organization Address City/State/ZIP Code Phon e Number [address] CERNER MILLENNIUM U24 Hrs and Volume (08/02/2015 12:35 PM EST) athologist Signature Hours 24 hour(s) CERNER Collected MILLENNIUM Urine TV (ml) 1,275 mL CERNER MILLENNIUM Specimen Anatomical Collection Method Collection Time Receive d Time (Source) Location / / Volume Laterality Urine specimen 08/02/2015 12:35 6 1:28 (specimen) PM EST PM EST Resulting Agency Comment Spec In Lab Karen Pierre MD CHEMISTRY ORDERABLES Performing Organization Address City/State/ZIP Code Phon e Number [place] [address] CERNER MILLENNIUM (ABNORMAL) Creatinine Clearance, urine, 24 hour (08/02/2015 12:35 PM EST) Analysis Performed At Patho logist Time Signature Creat 29 (L) 80 - 125 CERNER Clearance mL/min MILLENNIUM U24 Creat Conc 39 mg/dL CERNER MILLENNIUM U24 Creat Calc 0.50 (L) 0.80 - CERNER 1.90 MILLENNIUM gm/24hr Specimen Anatomical Collection Method Collection Time Receive d Time (Source) Location / / Volume Laterality Urine specimen 08/02/2015 12:35 6 1:28 (specimen) PM EST PM EST Resulting Agency Comment Spec In Lab Karen Pierre MD URINE ORDERABLES Performing Organization Address City/State/ZIP Code Phon e Number [place] [address] CERNER MILLENNIUM Transfuse RBC (08/02/2015 11:58 AM EST) Elicia Caal MD NURSING TREATMENT ORDERABLES - BLOOD ADMIN Transfuse RBC (08/02/2015 11:58 AM EST) Elicia Caal MD NURSING TREATMENT ORDERABLES - BLOOD ADMIN (ABNORMAL) POCT Glucose (08/02/2015 11:55 AM EST) P athologist Signature POC Glucose 213 (H) 65 - 199 CERNER mg/dL MILLENNIUM Comment: Supplemental ranges: <140 mg/dL before meals <180 mg/dL all other times of the day Specimen Anatomical Collection Method Collection Time Receive d Time (Source) Location / / Volume Laterality Blood specimen 08/02/2015 11:55 6 (specimen) AM EST 11:55 AM EST Elicia Caal MD POINT OF CARE TEST ORDERABLE S Performing Organization Address City/State/ZIP Code Phon e Number [address] CERNER MILLENNIUM Antibody screen (08/02/2015 8:27 AM EST) Patholo gist Method Time Signature Ab Screen Negative CERNER Interp MILLENNIUM Expires at 08/05/2015 CERNER [id number] on: CAPOENNIUM Specimen Anatomical Collection Method Collection Time Receive d Time (Source) Location / / Volume Laterality Blood specimen 08/02/2015 8:27 AM 016 8:33 (specimen) EST AM EST Resulting Agency Comment Spec In Lab Elicia Caal MD BLOOD BANK ORDERABLES Performing Organization Address City/[facility]/ZIP [place] [address] CERPILI SCANLONENNIUM ABO/Rh Typing (08/02/2015 8:27 AM EST) P athologist Signature ABORh Type A Neg [facility] Specimen Anatomical Collection Method Collection Time Receive d Time (Source) Location / / Volume Laterality Blood specimen 08/02/2015 8:27 AM 016 8:33 (specimen) EST AM EST Resulting Agency Comment Spec In Lab Elicia Caal MD BLOOD BANK ORDERABLES Performing Organization Address City/[facility]/ZIP [place] [address] [facility] Prepare RBC (08/02/2015 8:15 AM EST) P athologist Signature Dispensed? Yes [facility] Specimen Anatomical Collection Method Collection Time Receive d Time (Source) Location / / Volume Laterality Blood specimen 08/02/2015 8:15 AM 016 8:14 (specimen) EST AM EST Resulting Agency Comment Spec In Lab Elicia Caal MD BLOOD BANK ORDERABLES Performing Organization Address City/[facility] Phon e Number [address] [facility] POCT Glucose (08/02/2015 7:02 AM EST) P athologist Signature POC Glucose 184 65 - 199 [facility] mg/dL [facility] Comment: Supplemental ranges: <140 mg/dL before meals <180 mg/dL all other times of the day Specimen Anatomical Collection Method Collection Time Receive d Time (Source) Location / / Volume Laterality Blood specimen 08/02/2015 7:02 AM 016 7:02 (specimen) EST AM EST Elicia Caal MD POINT OF CARE TEST ORDERABLE S Performing Organization Address City/[facility]/ZIP Code Phon e Number [address] CERNER MILLENNIUM (ABNORMAL) Differential, Automated (08/02/2015 5:05 AM EST) [facility] Method Time Signature Neutrophils % 81.0 % CERNER MILLENNIUM Neutr Abs (ANC) 9.82 (H) 1.50 - CERNER 6.30 MILLENNIUM x10(3)/mc L Lymphocytes % 10.0 % CERNER MILLENNIUM Lymphocytes Abs 1.2 1.0 - 3.6 CERNER x10(3)/mc MILLENNIUM L Monocytes % 6.6 % CERNER MILLENNIUM Monocyte Abs 0.8 0.2 - 1.0 CERNER x10(3)/mc MILLENNIUM L Eosinophils % 1.8 % CERNER MILLENNIUM Eosinophils Abs 0.2 0.0 - 0.5 CERNER x10(3)/mc MILLENNIUM L Basophils % 0.4 % CERNER MILLENNIUM Basophils [...] differential will be performed. Rosenda Gran Abs 0.03 0.00 - 0.05 x10(3)/mcL CER NER MILLENNIUM Specimen Anatomical Collection Method Collection Time Receive d Time (Source) Location / / Volume Laterality Blood specimen 08/02/2015 5:05 AM 016 5:21 (specimen) EST AM EST Resulting Agency Comment Spec In Lab Elicia Caal MD HEMATOLOGY ORDERABLES Performing Organization Address City/[facility]/ZIP [place] [address] CERNER MILLENNIUM (ABNORMAL) Hemogram (08/02/2015 5:05 AM EST) athologist Signature WBC 12.1 (H) 4.0 - 10.0 CERNER x10(3)/mcL MILLENNIUM RBC 2.54 (L) 3.93 - CERNER 5.22 MILLENNIUM x10(6)/mcL Hemoglobin 7.4 (L) 11.2 - CERNER 15.7 gm/dL MILLENNIUM Hematocrit 23.5 (L) 34.0 - CERNER 45.0 % MILLENNIUM MCV 92.5 79.0 - CERNER 94.0 fL MILLENNIUM MCH 29.1 26.6 - CERNER 32.2 pg MILLENNIUM MCHC 31.5 (L) 32.0 - CERNER 36.5 gm/dL MILLENNIUM Platelets 355 145 - 370 CERNER x10(3)/mcL MILLENNIUM RDWSD 51.5 (H) 35.0 - CERNER 46.0 fL MILLENNIUM RDWCV 15.3 (H) 10.9 - CERNER 14.4 % MILLENNIUM MPV 10.4 9.0 - 12.0 CERNER fL MILLENNIUM Specimen Anatomical Collection Method Collection Time Receive d Time (Source) Location / / Volume Laterality Blood specimen 08/02/2015 5:05 AM 016 5:21 (specimen) EST AM EST Resulting Agency Comment Spec In Lab Elicia Caal MD HEMATOLOGY ORDERABLES Performing Organization Address City/State/ZIP [place] [address] CERNER MILLENNIUM (ABNORMAL) Basic Metabolic Panel (non-fasting) (08/02/2015 5:05 AM EST) athologist Signature Glucose Lvl 173 65 - 199 CERNER mg/dL MILLENNIUM Comment: Diabetes: >=200 mg/dL plus symp toms BUN 22 (H) 8 - 18 mg/dL CERNER MILLENNIUM Creatinine 1.21 (H) 0.70 - 1.20 mg/dL CERNER MILL ENNIUM Comment: Please note that the pediatric reference intervals supplied above were not validated at [facility]. Results from pediatri c patients should be [...] if there are any qu estions. Chloride 105 98 - 107 mmol/L CERNER MILLENN IUM CO2 26 22 - 31 mmol/L CERNER MILLENNI UM Anion Gap 8 5 - 15 mmol/L CERNER MILLENNIU M Calcium 7.8 (L) 8.5 - 10.5 mg/dL CERNER KINGSLEY NIUM Estimated GFR 45 (L) >=60 CERNER MILLENNIU M Comment: This [...] the following links into your internet browser. [email or web address] Specimen Anatomical Collection Method Collection Time Receive d Time (Source) Location / / Volume Laterality Blood specimen 08/02/2015 5:05 AM 016 5:21 (specimen) EST AM EST Resulting Agency Comment Spec In Lab Elicia Caal MD CHEMISTRY ORDERABLES Performing Organization Address City/State/ZIP [place] [address] CERNER MILLENNIUM POCT Glucose (08/02/2015 3:08 AM EST) P athologist Signature POC Glucose 169 65 - 199 CERNER mg/dL MILLENNIUM Comment: Supplemental ranges: <140 mg/dL before meals <180 mg/dL all other times of the day Specimen Anatomical Collection Method Collection Time Receive d Time (Source) Location / / Volume Laterality Blood specimen 08/02/2015 3:08 AM 016 3:08 (specimen) EST AM EST Elicia Caal MD POINT OF CARE TEST ORDERABLE S Performing Organization Address City/[facility]/ZIP Code Phon e Number [address] CERNER MILLENNIUM POCT Glucose (08/02/2015 12:08 AM EST) P athologist Signature POC Glucose 190 65 - 199 CERNER mg/dL MILLENNIUM Comment: Supplemental ranges: <140 mg/dL before meals <180 mg/dL all other times of the day Specimen Anatomical Collection Method Collection Time Receive d Time (Source) Location / / Volume Laterality Blood specimen 08/02/2015 12:08 6 (specimen) AM EST 12:08 AM EST Elicia Caal MD POINT OF CARE TEST ORDERABLE S Performing Organization Address City/[facility]/ZIP Code Phon e Number [address] CERNER MILLENNIUM (ABNORMAL) POCT Glucose (08/01/2015 6:52 PM EST) athologist Signature POC Glucose 230 (H) 65 - 199 CERNER mg/dL MILLENNIUM Comment: Supplemental ranges: <140 mg/dL before meals <180 mg/dL all other times of the day Specimen Anatomical Collection Method Collection Time Receive d Time (Source) Location / / Volume Laterality Blood specimen 08/01/2015 6:52 PM 016 6:52 (specimen) EST PM EST Elicia Caal MD POINT OF CARE TEST ORDERABLE S Performing Organization Address City/[facility]/ZIP Code Phon e Number [address] CERNER MILLENNIUM (ABNORMAL) POCT Glucose (08/01/2015 4:40 PM EST) P athologist Signature POC Glucose 269 (H) 65 - 199 CERNER mg/dL MILLENNIUM Comment: Supplemental ranges: <140 mg/dL before meals <180 mg/dL all other times of the day Specimen Anatomical Collection Method Collection Time Receive d Time (Source) Location / / Volume Laterality Blood specimen 08/01/2015 4:40 PM 016 4:40 (specimen) EST PM EST Elicia Caal MD POINT OF CARE TEST ORDERABLE S Performing Organization Address City/[facility]/ZIP Code Phon e Number [address] [facility] Cystatin C (08/01/2015 1:50 PM EST) athologist Signature Cystatin C 1.22 0.66 - 1.26 CERNER mg/L [facility] Comment: Test Performed by: [facility] [place] [address] Small Parts Assembler: Bharat Campos II, M.D., Ph.D. Cystatin C eGFR 55 >60 mL/min/BSA [facility] Comment: ADDITIONAL INFORMATIO N Cystatin C-based eGFR may differ substan tially from creatinine-based eGFR in patients with a bnormal muscle mass or acutely changing renal function. ??Pl ease interpret together with relevant clinical features . Test Performed by: [facility] [place] [address] [employer] Parts Assembler: Bharat Campos II, M.D., Ph.D. Specimen Anatomical Collection Method Collection Time Receive d Time (Source) Location / / Volume Laterality Blood specimen 08/01/2015 1:50 PM 016 3:31 (specimen) EST PM EST Resulting Agency Comment Spec In Lab Karen Pierre MD CHEMISTRY ORDERABLES Performing Organization Address City/State/ZIP Code Phon e Number [address] [facility] POCT Glucose (08/01/2015 12:29 PM EST) athologist Signature POC Glucose 209 (H) 65 - 199 CERNER mg/dL [facility] Comment: Supplemental ranges: <140 mg/dL before meals <180 mg/dL all other times of the day Specimen Anatomical Collection Method Collection Time Receive d Time (Source) Location / / Volume Laterality Blood specimen 08/01/2015 12:29 6 (specimen) PM EST 12:29 PM EST Elicia Caal MD POINT OF CARE TEST ORDERABLE S Performing Organization Address City/State/ZIP Code Phon e Number [place] [id number] DANIEL [employer] XR Chest Routine PA & Lateral (08/01/2015 12:02 PM EST) Anatomical Region Laterality Modality Chest N/A Digital Radiography Specimen (Source) Anatomical Location Collection Method / Collectio n Time Received Time / Laterality Volume Impressions 08/01/2015 12:23 PM EST IMPRESSION: Findings compatible with mild interstitial edema. Mild bibasilar atelectasis and pleural effusions. Narrative 08/01/2015 12:23 PM EST EXAMINATION: XR CHEST ROUTINE PA AND LATERAL CLINICAL HISTORY: rising WBC, subjective ly febrile TECHNIQUE: PA and lateral views of the c hest. ? COMPARISON: 07/20/2015 from an outside in [facility]. FINDINGS: Fine reticular markings in the lateral periphery of both lungs compatible with mild interstitial edema. Mild peribronchial thickening consistent with peribronchovascular inte rstitial edema. Small bibasilar pleural effusions are present. Triangular airles s lung at the medial lung bases consistent with partial atelectasis of t he lower lobes. Unchanged cardiac silhouette, within normal limits. No int erval osseous findings seen. Procedure Note Brittney Aviles MD - 08/01/2015Formatt ing of this note might be different from the original. EXAMINATION: XR CHEST ROUTINE PA AND LAT ERAL CLINICAL HISTORY: rising WBC, subjective ly febrile TECHNIQUE: PA and lateral views of the c hest. COMPARISON: 07/20/2015 from an outside in [facility]. FINDINGS: Fine reticular markings in the lateral periphery of both lungs compatible with mild interstitial edema. Mild peribronchial thickening consistent with peribronchovascular inte rstitial edema. Small bibasilar pleural effusions are present. Triangular airles s lung at the medial lung bases consistent with partial atelectasis of t he lower lobes. Unchanged cardiac silhouette, within normal limits. No int erval osseous findings seen. IMPRESSION IMPRESSION: Findings compatible with mil d interstitial edema. Mild bibasilar atelectasis and pleural effusions. Elicia Caal MD IMG DX ORDERABLES (ABNORMAL) POCT Glucose (08/01/2015 8:13 AM EST) P athologist Signature POC Glucose 207 (H) 65 - 199 CERNER mg/dL MILLENNIUM Comment: Supplemental ranges: <140 mg/dL before meals <180 mg/dL all other times of the day Specimen Anatomical Collection Method Collection Time Receive d Time (Source) Location / / Volume Laterality Blood specimen 08/01/2015 8:13 AM 016 8:13 (specimen) EST AM EST Elicia Caal MD POINT OF CARE TEST ORDERABLE S Performing Organization Address City/State/ZIP [place] [address] CERNER MILLENNIUM (ABNORMAL) Differential, Automated (08/01/2015 4:39 AM EST) Patholo gist Method Time Signature Neutrophils % 84.9 % CERNER MILLENNIUM Neutr Abs (ANC) 13.62 (H) 1.50 - CERNER 6.30 MILLENNIUM x10(3)/mc L Lymphocytes % 7.6 % CERNER MILLENNIUM Lymphocytes Abs 1.2 1.0 - 3.6 CERNER x10(3)/mc MILLENNIUM L Monocytes % 5.9 % CERNER MILLENNIUM Monocyte Abs 1.0 0.2 - 1.0 CERNER x10(3)/mc MILLENNIUM L Eosinophils % 1.2 % CERNER MILLENNIUM Eosinophils Abs 0.2 0.0 - 0.5 CERNER x10(3)/mc MILLENNIUM L Basophils % 0.2 % CERNER MILLENNIUM Basophils Abs 0.0 0.0 [...] differential will be performed. Rosenda Gran Abs 0.04 0.00 - 0.05 x10(3)/mcL CER NER MILLENNIUM Specimen Anatomical Collection Method Collection Time Receive d Time (Source) Location / / Volume Laterality Blood specimen 08/01/2015 4:39 AM 016 4:53 (specimen) EST AM EST Resulting Agency Comment Spec In Lab Elicia Caal MD HEMATOLOGY ORDERABLES Performing Organization Address City/[facility] [place] [address] CERNER MILLENNIUM (ABNORMAL) Hemogram (08/01/2015 4:39 AM EST) P athologist Signature WBC 16.1 (H) 4.0 - 10.0 CERNER x10(3)/mcL MILLENNIUM RBC 2.62 (L) 3.93 - CERNER 5.22 MILLENNIUM x10(6)/mcL Hemoglobin 7.8 (L) 11.2 - CERNER 15.7 gm/dL MILLENNIUM Hematocrit 23.7 (L) 34.0 - CERNER 45.0 % MILLENNIUM MCV 90.5 79.0 - CERNER 94.0 fL MILLENNIUM MCH 29.8 26.6 - CERNER 32.2 pg MILLENNIUM MCHC 32.9 32.0 - CERNER 36.5 gm/dL MILLENNIUM Platelets 337 145 - 370 CERNER x10(3)/mcL MILLENNIUM RDWSD 50.8 (H) 35.0 - CERNER 46.0 fL MILLENNIUM RDWCV 15.4 (H) 10.9 - CERNER 14.4 % MILLENNIUM MPV 10.4 9.0 - 12.0 CERNER fL MILLENNIUM Specimen Anatomical Collection Method Collection Time Receive d Time (Source) Location / / Volume Laterality Blood specimen 08/01/2015 4:39 AM 016 4:53 (specimen) EST AM EST Resulting Agency Comment Spec In Lab Elicia Caal MD HEMATOLOGY ORDERABLES Performing Organization Address City/[facility]/ZIP [place] [address] CERNER MILLENNIUM (ABNORMAL) Basic Metabolic Panel (non-fasting) (08/01/2015 4:39 AM EST) P athologist Signature Glucose Lvl 193 65 - 199 CERNER mg/dL MILLENNIUM Comment: Diabetes: >=200 mg/dL plus symp toms BUN 22 (H) 8 - 18 mg/dL CERNER MILLENNIUM Creatinine 1.34 (H) 0.70 - 1.20 mg/dL CERNER MILL ENNIUM Comment: Please note that the pediatric reference intervals supplied above were not validated at [facility]. Results from pediatri c patients should be interpreted in conjunction to the patient's age, height and muscle mass. Sodium 138 135 - 145 mmol/L CERNER KINGSLEY NIUM Potassium 3.6 3.5 - 5.0 mmol/L CERNER KINGSLEY NIUM Comment: Please note: ??Patients with WBC >100,00 0 may have falsely elevated Potassium levels. ??For accurate Potassium quantif ication in these patients send serum separator tube (gold top) for subsequent determinations. ??Contact the Clinical Chemistry Laboratory if there are any qu estions. Chloride 102 98 - 107 mmol/L CERNER MILLENN IUM CO2 25 22 - 31 mmol/L CERNER MILLENNI UM Anion Gap 11 5 - 15 mmol/L CERNER MILLENNIU M Calcium 7.8 (L) 8.5 - 10.5 mg/dL CERNER KINGSLEY NIUM Estimated GFR 40 (L) >=60 CERNER MILLENNIU M Comment: This [...] the following links into your internet browser. [email or web address] Specimen Anatomical Collection Method Collection Time Receive d Time (Source) Location / / Volume Laterality Blood specimen 08/01/2015 4:39 AM 016 4:53 (specimen) EST AM EST Resulting Agency Comment Spec In Lab Elicia Caal MD CHEMISTRY ORDERABLES Performing Organization Address City/State/ZIP Code Phon e Number [facility] [address] CERNER MILLENNIUM (ABNORMAL) POCT Glucose (07/31/2015 9:23 PM EST) P athologist Signature POC Glucose 235 (H) 65 - 199 CERNER mg/dL MILLENNIUM Comment: Supplemental ranges: <140 mg/dL before meals <180 mg/dL all other times of the day Specimen Anatomical Collection Method Collection Time Receive d Time (Source) Location / / Volume Laterality Blood specimen 07/31/2015 9:23 PM 016 9:23 (specimen) EST PM EST Elicia Caal MD POINT OF CARE TEST ORDERABLE S Performing Organization Address City/[facility]/ZIP Code Phon e Number [address] CERNER MILLENNIUM (ABNORMAL) POCT Glucose (07/31/2015 4:37 PM EST) athologist Signature POC Glucose 237 (H) 65 - 199 CERNER mg/dL MILLENNIUM Comment: Supplemental ranges: <140 mg/dL before meals <180 mg/dL all other times of the day Specimen Anatomical Collection Method Collection Time Receive d Time (Source) Location / / Volume Laterality Blood specimen 07/31/2015 4:37 PM 016 4:37 (specimen) EST PM EST Elicia Caal MD POINT OF CARE TEST ORDERABLE S Performing Organization Address City/[facility]/ZIP Code Phon e Number [place] [address] CERNER MILLENNIUM (ABNORMAL) POCT Glucose (07/31/2015 3:03 PM EST) P athologist Signature POC Glucose 233 (H) 65 - 199 CERNER mg/dL MILLENNIUM Comment: Supplemental ranges: <140 mg/dL before meals <180 mg/dL all other times of the day Specimen Anatomical Collection Method Collection Time Receive d Time (Source) Location / / Volume Laterality Blood specimen 07/31/2015 3:03 PM 016 3:03 (specimen) EST PM EST Elicia Caal MD POINT OF CARE TEST ORDERABLE S Performing Organization Address City/State/ZIP Code Phon e Number [address] CERNER MILLENNIUM (ABNORMAL) POCT Glucose (07/31/2015 12:46 PM EST) athologist Signature POC Glucose 272 (H) 65 - 199 CERNER mg/dL [facility] Comment: Supplemental ranges: <140 mg/dL before meals <180 mg/dL all other times of the day Specimen Anatomical Collection Method Collection Time Receive d Time (Source) Location / / Volume Laterality Blood specimen 07/31/2015 12:46 6 (specimen) PM EST 12:46 PM EST Elicia Caal MD POINT OF CARE TEST ORDERABLE S Performing Organization Address City/[facility]/ZIP Code Phon e Number [address] CERNER [facility] C. Difficile Screen (07/31/2015 12:46 PM EST) Analysis Performed At [facility] Signature C Diff Screen Negative Negative CERNER [facility] Specimen Anatomical Collection Method Collection Time Receive d Time (Source) Location / / Volume Laterality Stool specimen 07/31/2015 12:46 6 1:15 (specimen) PM EST PM EST Resulting Agency Comment Spec In Lab Elicia Caal MD MICROBIOLOGY - GENERAL ORDER STAN Performing Organization Address City/State/ZIP Code Phon e Number [address] CERNER MILLENNIUM (ABNORMAL) POCT Glucose (07/31/2015 12:44 PM EST) athologist Signature POC Glucose 271 (H) 65 - 199 CERNER mg/dL [facility] Comment: Supplemental ranges: <140 mg/dL before meals <180 mg/dL all other times of the day Specimen Anatomical Collection Method Collection Time Receive d Time (Source) Location / / Volume Laterality Blood specimen 07/31/2015 12:44 6 (specimen) PM EST 12:44 PM EST Elicia Caal MD POINT OF CARE TEST ORDERABLE S Performing Organization Address City/State/ZIP Code Phon e Number [address] CERNER MILLENNIUM Urine culture (07/31/2015 9:50 AM EST) [facility] Method Time Signature Urine Culture No growth CERNER (Less than MILLENNIUM 1,000 cfu/ml). Specimen (Source) Anatomical Collection Method Collection Time Re ceived Time Location / / Volume Laterality Urine specimen 07/31/2015 9:50 07/31/2015 obtained via AM EST 11:50 AM EST indwelling urinary catheter (specimen) Resulting Agency Comment Spec In Lab Elicia Caal MD MICROBIOLOGY - GENERAL ORDER STAN Performing Organization Address City/State/ZIP Code Phon e Number [address] CERNER MILLENNIUM (ABNORMAL) Urinalysis with reflex Culture (07/31/2015 9:50 AM EST) [facility] Method Time Signature Glucose UA 150 (A) Negative CERNER mg/dL MILLENNIUM Protein UA Negative Negative CERNER mg/dL MILLENNIUM Bilirubin UA Negative Negative CERNER mg/dL MILLENNIUM Comment: Clinical correlation required for positi ve Urine Bilirubin results as false positive may occur with some drugs and d rug related products. If a false positive is suspected a serum total bili reese should be considered if clinically indicated. Urobilinogen UA Normal Normal mg/dL CERNER MILL ENNIUM pH UA 5.0 5.0 - 8.0 CERNER MILLENNIUM Blood UA Negative Negative mg/dL CERNER MILLENNI UM Ketones UA Negative Negative mg/dL CERNER MILLENN IUM Nitrite UA Negative Negative CERNER MILLENNIUM Leukocytes UA Negative Negative mcL CERNER KINGSLEY NIUM Appearance UA Clear Clear CERNER MILLENNIU M Spec [place] UA 1.005 1.002 - 1.030 CERNER MIL LENNIUM Color UA Yellow Yellow CERNER MILLENNIUM RBC UA 4 0 - 4 /HPF CERNER MILLENNIUM WBC UA 11 (H) 0 - 5 /HPF CERNER MILLENNIUM Bacteria UA Rare (A) None /HPF CERNER MILLENNIUM Hyaline Cast UA 2 0 - 2 /LPF CERNER KINGSLEY NIUM Culture Reflexed Yes CERNER KINGSLEY NIUM Specimen (Source) Anatomical Collection Method Collection Time Re ceived Time Location / / Volume Laterality Urine specimen 07/31/2015 9:50 07/31/2015 9:59 obtained via AM EST AM EST indwelling urinary catheter (specimen) Resulting Agency Comment Spec In Lab Elicia Caal MD URINE ORDERABLES Performing Organization Address City/State/ZIP [place] [address] CERNER MILLENNIUM (ABNORMAL) Differential, Automated (07/31/2015 7:29 AM EST) [facility] Method Time Signature Neutrophils % 89.5 % CERNER MILLENNIUM Neutr Abs (ANC) 19.13 (H) 1.50 - CERNER 6.30 MILLENNIUM x10(3)/mc L Lymphocytes % 4.0 % CERNER MILLENNIUM Lymphocytes Abs 0.8 (L) 1.0 - 3.6 CERNER x10(3)/mc MILLENNIUM L Monocytes % 5.0 % CERNER MILLENNIUM Monocyte Abs 1.1 (H) 0.2 - 1.0 CERNER x10(3)/mc MILLENNIUM L Eosinophils % 0.8 % CERNER MILLENNIUM Eosinophils Abs 0.2 0.0 - 0.5 CERNER x10(3)/mc MILLENNIUM L Basophils % 0.2 % CERNER MILLENNIUM Basophils Abs 0.0 0.0 - 0.2 CERNER x10(3)/mc MILLENNIUM L Immature Gran % 0.50 % CERNER MILLENNIUM Comment: Immature granulocytes(IG's)percentage an d absolute count will include metamyelocytes, myelocytes, and promyelo cytes. Blood smears from CBCs yielding IG's will be scanned manually for concor dance. If this scan disagrees with the automated IG or if promyelocytes are not ed, a manual differential will be performed. Rosenda Gran Abs 0.10 (H) 0.00 - 0.05 x10(3)/mcL CER NER MILLENNIUM Specimen Anatomical Collection Method Collection Time Receive d Time (Source) Location / / Volume Laterality Blood specimen 07/31/2015 7:29 AM 016 7:36 (specimen) EST AM EST Resulting Agency Comment Spec In Lab Elicia Caal MD HEMATOLOGY ORDERABLES Performing Organization Address City/State/ZIP [place] [address] CERNER MILLENNIUM (ABNORMAL) Hemogram (07/31/2015 7:29 AM EST) athologist Signature WBC 21.4 (H) 4.0 - 10.0 CERNER x10(3)/mcL MILLENNIUM RBC 2.89 (L) 3.93 - CERNER 5.22 MILLENNIUM x10(6)/mcL Hemoglobin 8.8 (L) 11.2 - CERNER 15.7 gm/dL MILLENNIUM Hematocrit 26.6 (L) 34.0 - CERNER 45.0 % MILLENNIUM MCV 92.0 79.0 - CERNER 94.0 fL MILLENNIUM MCH 30.4 26.6 - CERNER 32.2 pg MILLENNIUM MCHC 33.1 32.0 - CERNER 36.5 gm/dL MILLENNIUM Platelets 370 145 - 370 CERNER x10(3)/mcL MILLENNIUM RDWSD 51.9 (H) 35.0 - CERNER 46.0 fL MILLENNIUM RDWCV 15.4 (H) 10.9 - CERNER 14.4 % MILLENNIUM MPV 10.4 9.0 - 12.0 CERNER fL MILLENNIUM Specimen Anatomical Collection Method Collection Time Receive d Time (Source) Location / / Volume Laterality Blood specimen 07/31/2015 7:29 AM 016 7:36 (specimen) EST AM EST Resulting Agency Comment Spec In Lab Elicia Caal MD HEMATOLOGY ORDERABLES Performing Organization Address City/State/ZIP [place] [address] CERNER MILLENNIUM (ABNORMAL) Basic Metabolic Panel (non-fasting) (07/31/2015 7:29 AM EST) athologist Signature Glucose Lvl 215 (H) 65 - 199 CERNER mg/dL MILLENNIUM Comment: Diabetes: >=200 mg/dL plus symp toms BUN 21 (H) 8 - 18 mg/dL CERNER MILLENNIUM Creatinine 1.38 (H) 0.70 - 1.20 mg/dL CERNER MILL ENNIUM Comment: Please note that the pediatric reference intervals supplied above were not validated at [facility]. Results from pediatri c patients should be interpreted in conjunction to the patient's age, height and muscle mass. Sodium 137 135 - 145 mmol/L CERNER KINGSLEY NIUM Potassium 3.9 3.5 - 5.0 mmol/L CERNER KINGSLEY NIUM Comment: Please note: ??Patients with WBC >100,00 0 may have falsely elevated Potassium levels. ??For accurate Potassium quantif ication in these patients send serum separator tube (gold top) for subsequent determinations. ??Contact the Clinical Chemistry Laboratory if there are any qu estions. Chloride 101 98 - 107 mmol/L CERNER MILLENN IUM CO2 23 22 - 31 mmol/L CERNER MILLENNI UM Anion Gap 13 5 - 15 mmol/L CERNER MILLENNIU M Calcium 7.9 (L) 8.5 - 10.5 mg/dL CERNER KINGSLEY NIUM Estimated GFR 38 (L) >=60 CERNER MILLENNIU M Comment: This [...] the following links into your internet browser. [email or web address] Specimen Anatomical Collection Method Collection Time Receive d Time (Source) Location / / Volume Laterality Blood specimen 07/31/2015 7:29 AM 016 7:36 (specimen) EST AM EST Resulting Agency Comment Spec In Lab Elicia Caal MD CHEMISTRY ORDERABLES Performing Organization Address City/State/ZIP [place] [address] CERNER MILLENNIUM (ABNORMAL) POCT Glucose (07/31/2015 7:28 AM EST) athologist Signature POC Glucose 208 (H) 65 - 199 CERNER mg/dL MILLENNIUM Comment: Supplemental ranges: <140 mg/dL before meals <180 mg/dL all other times of the day Specimen Anatomical Collection Method Collection Time Receive d Time (Source) Location / / Volume Laterality Blood specimen 07/31/2015 7:28 AM 016 7:28 (specimen) EST AM EST Elicia Caal MD POINT OF CARE TEST ORDERABLE S Performing Organization Address City/[facility]/ZIP Code Phon e Number [address] CERNER MILLENNIUM (ABNORMAL) POCT Glucose (07/31/2015 1:23 AM EST) P athologist Signature POC Glucose 225 (H) 65 - 199 CERNER mg/dL MILLENNIUM Comment: Supplemental ranges: <140 mg/dL before meals <180 mg/dL all other times of the day Specimen Anatomical Collection Method Collection Time Receive d Time (Source) Location / / Volume Laterality Blood specimen 07/31/2015 1:23 AM 016 1:23 (specimen) EST AM EST Elicia Caal MD POINT OF CARE TEST ORDERABLE S Performing Organization Address City/[facility]/ZIP Code Phon e Number [address] CERNER MILLENNIUM POCT Glucose (07/30/2015 9:28 PM EST) P athologist Signature POC Glucose 196 65 - 199 CERNER mg/dL MILLENNIUM Comment: Supplemental ranges: <140 mg/dL before meals <180 mg/dL all other times of the day Specimen Anatomical Collection Method Collection Time Receive d Time (Source) Location / / Volume Laterality Blood specimen 07/30/2015 9:28 PM 016 9:28 (specimen) EST PM EST Elicia Caal MD POINT OF CARE TEST ORDERABLE S Performing Organization Address City/State/ZIP Code Phon e Number [address] CERNER MILLENNIUM (ABNORMAL) POCT Glucose (07/30/2015 5:30 PM EST) P athologist Signature POC Glucose 238 (H) 65 - 199 CERNER mg/dL MILLENNIUM Comment: Supplemental ranges: <140 mg/dL before meals <180 mg/dL all other times of the day Specimen Anatomical Collection Method Collection Time Receive d Time (Source) Location / / Volume Laterality Blood specimen 07/30/2015 5:30 PM 016 5:30 (specimen) EST PM EST Elicia Caal MD POINT OF CARE TEST ORDERABLE S Performing Organization Address City/[facility]/ZIP Code Phon e Number [address] CERNER MILLENNIUM (ABNORMAL) POCT Glucose (07/30/2015 1:22 PM EST) P athologist Signature POC Glucose 204 (H) 65 - 199 CERNER mg/dL MILLENNIUM Comment: Supplemental ranges: <140 mg/dL before meals <180 mg/dL all other times of the day Specimen Anatomical Collection Method Collection Time Receive d Time (Source) Location / / Volume Laterality Blood specimen 07/30/2015 1:22 PM 016 1:22 (specimen) EST PM EST Elicia Caal MD POINT OF CARE TEST ORDERABLE S Performing Organization Address City/[facility]/ZIP Code Phon e Number [address] CERNER MILLENNIUM POCT Glucose (07/30/2015 11:43 AM EST) P athologist Signature POC Glucose 198 65 - 199 CERNER mg/dL MILLENNIUM Comment: Supplemental ranges: <140 mg/dL before meals <180 mg/dL all other times of the day Specimen Anatomical Collection Method Collection Time Receive d Time (Source) Location / / Volume Laterality Blood specimen 07/30/2015 11:43 6 (specimen) AM EST 11:43 AM EST Elicia Caal MD POINT OF CARE TEST ORDERABLE S Performing Organization Address City/State/ZIP Code Phon e Number [address] CERNER MILLENNIUM (ABNORMAL) Differential, Automated (07/30/2015 8:11 AM EST) [facility] gist Method Time Signature Neutrophils % 82.3 % CERNER MILLENNIUM Neutr Abs (ANC) 12.09 (H) 1.50 - CERNER 6.30 MILLENNIUM x10(3)/mc L Lymphocytes % 7.6 % CERNER MILLENNIUM Lymphocytes Abs 1.1 1.0 - 3.6 CERNER x10(3)/mc MILLENNIUM L Monocytes % 6.9 % CERNER MILLENNIUM Monocyte Abs 1.0 0.2 - 1.0 CERNER x10(3)/mc MILLENNIUM L Eosinophils % 2.0 % CERNER MILLENNIUM Eosinophils Abs 0.3 0.0 - 0.5 CERNER x10(3)/mc MILLENNIUM L Basophils % 0.5 % CERNER MILLENNIUM Basophils Abs 0.1 0.0 - 0.2 CERNER x10(3)/mc MILLENNIUM L Immature Gran % 0.70 % CERNER MILLENNIUM Comment: Immature granulocytes(IG's)percentage an d absolute count will include metamyelocytes, myelocytes, and promyelo cytes. Blood smears from CBCs yielding IG's will be scanned manually for concor dance. If this scan disagrees with the automated IG or if promyelocytes are not ed, a manual differential will be performed. Rosenda Gran Abs 0.10 (H) 0.00 - 0.05 x10(3)/mcL CER NER MILLENNIUM Specimen Anatomical Collection Method Collection Time Receive d Time (Source) Location / / Volume Laterality Blood specimen 07/30/2015 8:11 AM 016 8:16 (specimen) EST AM EST Resulting Agency Comment Spec In Lab Elicia Caal MD HEMATOLOGY ORDERABLES Performing Organization Address City/State/ZIP [place] [address] CERNER MILLENNIUM (ABNORMAL) Hemogram (07/30/2015 8:11 AM EST) P athologist Signature WBC 14.7 (H) 4.0 - 10.0 CERNER x10(3)/mcL MILLENNIUM RBC 2.90 (L) 3.93 - CERNER 5.22 MILLENNIUM x10(6)/mcL Hemoglobin 8.7 (L) 11.2 - CERNER 15.7 gm/dL MILLENNIUM Hematocrit 26.8 (L) 34.0 - CERNER 45.0 % MILLENNIUM MCV 92.4 79.0 - CERNER 94.0 fL MILLENNIUM MCH 30.0 26.6 - CERNER 32.2 pg MILLENNIUM MCHC 32.5 32.0 - CERNER 36.5 gm/dL MILLENNIUM Platelets 405 (H) 145 - 370 CERNER x10(3)/mcL MILLENNIUM RDWSD 52.5 (H) 35.0 - CERNER 46.0 fL MILLENNIUM RDWCV 15.6 (H) 10.9 - CERNER 14.4 % MILLENNIUM MPV 10.3 9.0 - 12.0 CERNER fL MILLENNIUM Specimen Anatomical Collection Method Collection Time Receive d Time (Source) Location / / Volume Laterality Blood specimen 07/30/2015 8:11 AM 016 8:16 (specimen) EST AM EST Resulting Agency Comment Spec In Lab Elicia Caal MD HEMATOLOGY ORDERABLES Performing Organization Address City/State/ZIP [place] [address] CERNER MILLENNIUM (ABNORMAL) Basic Metabolic Panel (non-fasting) (07/30/2015 8:11 AM EST) athologist Signature Glucose Lvl 223 (H) 65 - 199 CERNER mg/dL MILLENNIUM Comment: Diabetes: >=200 mg/dL plus symp toms BUN 19 (H) 8 - 18 mg/dL CERNER MILLENNIUM Creatinine 1.73 (H) 0.70 - 1.20 mg/dL CERNER MILL ENNIUM Comment: Please note that the pediatric reference intervals supplied above were not validated at [facility]. Results from pediatri c patients should be interpreted in conjunction to the patient's age, height and muscle mass. Sodium 142 135 - 145 mmol/L CERNER KINGSLEY NIUM Potassium 4.0 3.5 - 5.0 mmol/L CERNER KINGSLEY NIUM Comment: Please note: ??Patients with WBC >100,00 0 may have falsely elevated Potassium levels. ??For accurate Potassium quantif ication in these patients send serum separator tube (gold top) for subsequent determinations. ??Contact the Clinical Chemistry Laboratory if there are any qu estions. Chloride 106 98 - 107 mmol/L CERNER MILLENN IUM CO2 25 22 - 31 mmol/L CERNER MILLENNI UM Anion Gap 11 5 - 15 mmol/L CERNER MILLENNIU M Calcium 7.9 (L) 8.5 - 10.5 mg/dL CERNER KINGSLEY NIUM Estimated GFR 30 (L) >=60 CERNER MILLENNIU M Comment: This [...] the following links into your internet browser. [email or web address] Specimen Anatomical Collection Method Collection Time Receive d Time (Source) Location / / Volume Laterality Blood specimen 07/30/2015 8:11 AM 016 8:16 (specimen) EST AM EST Resulting Agency Comment Spec In Lab Elicia Caal MD CHEMISTRY ORDERABLES Performing Organization Address City/[facility]/ZIP Code Phon e Number [address] CERNER MILLENNIUM (ABNORMAL) POCT Glucose (07/30/2015 7:55 AM EST) athologist Signature POC Glucose 215 (H) 65 - 199 CERNER mg/dL MILLENNIUM Comment: Supplemental ranges: <140 mg/dL before meals <180 mg/dL all other times of the day Specimen Anatomical Collection Method Collection Time Receive d Time (Source) Location / / Volume Laterality Blood specimen 07/30/2015 7:55 AM 016 7:55 (specimen) EST AM EST Elicia Caal MD POINT OF CARE TEST ORDERABLE S Performing Organization Address City/[facility]/ZIP Code Phon e Number [address] CERNER MILLENNIUM POCT Glucose (07/29/2015 4:08 PM EST) athologist Signature POC Glucose 176 65 - 199 CERNER mg/dL MILLENNIUM Comment: Supplemental ranges: <140 mg/dL before meals <180 mg/dL all other times of the day Specimen Anatomical Collection Method Collection Time Receive d Time (Source) Location / / Volume Laterality Blood specimen 07/29/2015 4:08 PM 016 4:08 (specimen) EST PM EST Elicia Caal MD POINT OF CARE TEST ORDERABLE S Performing Organization Address City/[facility]/ZIP Code Phon e Number [address] [facility] POCT Glucose (07/29/2015 1:27 PM EST) P athologist Signature POC Glucose 163 65 - 199 CERNER mg/dL [facility] Comment: Supplemental ranges: <140 mg/dL before meals <180 mg/dL all other times of the day Specimen Anatomical Collection Method Collection Time Receive d Time (Source) Location / / Volume Laterality Blood specimen 07/29/2015 1:27 PM 016 1:27 (specimen) EST PM EST Elicia Caal MD POINT OF CARE TEST ORDERABLE S Performing Organization Address City/[facility]/ZIP Code Phon e Number [address] [facility] Surgical Pathology Report (07/29/2015 12:34 PM EST) Component Value Ref Test Analysis [facility]formed [facility] Range Method Time Signature Surgical [id number] ? Location: [facility]; [facility]; A [facility] Pathology [facility] Report The signing pathologist has (i) examined the relevant preparation(s) for the specimen(s) and (ii) rendered or confirmed the diagnosis(es) . . ?Surgic al Pathology DIAGNOSIS A - Left above the knee amputation revision, s/p left guil lotine amputation 1 - Distal ulcer with acute cellulitis and distal osteomyeli tis 08/04/15 VAM 08/04/15 Verified by: ? Memoli MD, Amol Uriarte ?Pathologist ?(Electronic Signature ) The attending pathologist whose signature appears on this re port has reviewed all diagnostic slides and has edited the gross and/ or microscopic portion of the report in karina dering the final pathologic diagnosis. CLINICAL INFORMATION Specimen Submitted: A - Left above the knee amputation s/p left guillotine amput ation Clinical History: Left groin wound vac Clinical Diagnosis: Same SPECIMEN PROCESSING A- Left through the knee amp utation, status post left guillotine amputation, fresh. Qty/Size/Weight: Single, 4-7.2 x 11.5 x 10.5 cm. Tissue Description: the spec imen is received in two parts, first proximal ??part measuring 2.2 x 11.5 x 10.5 containin g patella and proximally 10.5 cm of exposed femoral bone. The second larger part contains below the knee amputated part measuring 27.1 x 11.2 cm. Margin: distal margin with s oft tissue and yellow-white discoloration, short fragments of exposed fibula and tibia also showing yellow-white chalky d iscoloration. Skin: The normal skin presen t is hairless, pink, with prominent superficial veins and small crusted wound measuring 0.5 x 0.6 cm 13.2 cm from dis gilberto margin. Lesion: There is a linear ul cer in the distal stump measuring 13.5 cm in length, with erythematous yellow-white e dges ??and punctate hemorrhages on the underlying soft tissue. Vessels: There is moderate atherosclerosis. ections/Processing: (1)Skin wound; (3) vessels; (4) femoral margin; (5)fibular margin; (6) tibial margin; (7) bone und erlying skin wound; (8) proximal soft tissue margin;(9) distal soft tissue stump. sections submitted for decal (4-7). (R8) Specimen (Source) Anatomical Collection Method Collection Time Re ceived Time Location / / Volume Laterality 07/29/2015 12:34 PM EST Elicia Caal MD PATHOLOGY/CYTOLOGY ORDERABLE S Performing Organization Address City/State/ZIP [place] [address] [facility] Specimen to Pathology (surgical or derm) (07/29/2015 12:34 PM EST) Specimen Anatomical Collection Method Collection Time Receive d Time (Source) Location / / Volume Laterality AP Specimen 07/29/2015 12:34 07/29/2015 PM EST 12:34 PM EST Narrative CERNER MILLENNIUM - 07/29/2015 12:34 PM EST Specimen requisition ordered. ??Separate Pathology report to follow Elicia Caal MD PATHOLOGY/CYTOLOGY ORDERABLE S Performing Organization Address City/[facility]/ZIP [place] [address] [facility] CAPOENNIUM POCT Glucose (07/29/2015 11:40 AM EST) P athologist Signature POC Glucose 128 65 - 199 CERNER mg/dL [facility] Comment: Supplemental ranges: <140 mg/dL before meals <180 mg/dL all other times of the day Specimen Anatomical Collection Method Collection Time Receive d Time (Source) Location / / Volume Laterality Blood specimen 07/29/2015 11:40 6 (specimen) AM EST 11:40 AM EST Elicia Caal MD POINT OF CARE TEST ORDERABLE S Performing Organization Address [facility]/ZIP Code Phon e Number [address] [facility] MILLENNIUM (ABNORMAL) POCT Glucose (07/29/2015 7:45 AM EST) P athologist Signature POC Glucose 210 (H) 65 - 199 CERNER mg/dL [facility] Comment: Supplemental ranges: <140 mg/dL before meals <180 mg/dL all other times of the day Specimen Anatomical Collection Method Collection Time Receive d Time (Source) Location / / Volume Laterality Blood specimen 07/29/2015 7:45 AM 016 7:45 (specimen) EST AM EST Elicia Caal MD POINT OF CARE TEST ORDERABLE S Performing Organization Address City/[facility]/ZIP [place] [address] [facility] MILLENNIUM Duplex Study Renal Arteries, Bilat (07/29/2015 6:46 AM EST) Component Value Ref Test Analysis Performed At [facility] gist Range Method Time Signature VB Text Department: Vascular Surgery Lab VASCU[facility] Report Patient: [id number] (CHAN HURST) CPT: 09065 ICD10: I70.1 Referring Physician: ELICIA CAAL ?? Phone: Indications: 64 year old female with acute kidney injury, ? 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 PSV (cm/s): 100 ? EDV (cm/s): 12 ? RI: 0.89 Renal Artery Proximal, Right ? PSV (cm/s): 123 ? EDV (cm/s): 25 ? RAR-NE: 1.2 ? RI: 0.80 Renal Artery Mid, Right ? PSV (cm/s): 155 ? EDV (cm/s): 27 ? RAR-NE: 1.6 ? RI: 0.82 Renal Artery Distal, Right ? PSV (cm/s): 116 ? EDV (cm/s): 19 ? RAR-NE: 1.2 ? RI: 0.84 Mid Pole Renal Parenchyma, Right ? PSV (cm/s): 28 ? EDV (cm/s): 8 ? RI: 0.70 Lower Pole Renal Parenchyma, Right ? PSV (cm/s): 23 ? EDV (cm/s): 6 ? RI: 0.74 Renal Hilum, Right ? PSV (cm/s): 51 ? EDV (cm/s): 9 ? RI: 0.82 ? AT (ms): 30 Kidney Length, Right ? Length (cm): 11.4 Renal Vein, Right ? Patent: Patent Renal Artery Proximal, Left ? PSV (cm/s): 239 ? EDV (cm/s): 32 ? RAR-NE: 2.4 ? RI: 0.87 Renal Artery Mid, Left ? PSV (cm/s): 147 ? EDV (cm/s): 24 ? RAR-NE: 1.5 ? RI: 0.84 Renal Artery Distal, Left ? PSV (cm/s): 90 ? EDV (cm/s): 18 ? RAR-NE: 0.9 ? RI: 0.80 Mid Pole Renal Parenchyma, Left ? PSV (cm/s): 31 ? EDV (cm/s): 8 ? RI: 0.73 Lower Pole Renal Parenchyma, Left ? PSV (cm/s): 35 ? EDV (cm/s): 9 ? RI: 0.73 Renal Hilum, Left ? PSV (cm/s): 70 ? EDV (cm/s): 12 ? RI: 0.83 ? AT (ms): 120 Kidney Length, Left ? Length (cm): 11.2 Renal Vein, Left ? Patent: Patent Interpretation: RIGHT: Patent main renal art gregory with no evidence of hemodynamically significant stenosis. Patent renal vein. LEFT: Patent main renal artery with peak systolic velocity t hat meet the criteria for >60% renal artery stenosis. Patent renal vein. Comment: The renal aortic ve locity ratio (RAR) may be invalid due to the aortic velocity at the upper threshold (100 cm/s) for diagnostic ac curacy. Comparison: ??No previous study in our vascular lab da tabase for comparison. Electronically Signed by: NATANAEL NUÑEZ on 2015-07-31 08:58: 33 PM VB Text End of Report [facility] Report Specimen (Source) Anatomical Collection Method Collection Time Re ceived Time Location / / Volume Laterality 07/29/2015 6:46 AM EST Elicia Caal MD VASCULAR ORDERABLES Performing Organization Address City/State/ZIP Code Phon e Number [facility] Uric acid (07/29/2015 2:13 AM EST) P athologist Signature Uric Acid 3.7 2.5 - 6.5 CERNER mg/dL MILLENNIUM Specimen Anatomical Collection Method Collection Time Receive d Time (Source) Location / / Volume Laterality Blood specimen Venous Draw / 07/29/2015 2:13 AM 2015 2:25 (specimen) Unknown EST AM EST Resulting Agency Comment Spec In Lab Elicia Caal MD CHEMISTRY ORDERABLES Performing Organization Address City/State/ZIP Code Phon e Number [place] [id number] [facility] [address] Drive CERNER MILLENNIUM (ABNORMAL) Differential, Automated (07/29/2015 2:13 AM EST) Patholo gist Method Time Signature Neutrophils % 78.8 % CERNER MILLENNIUM Neutr Abs (ANC) 8.81 (H) 1.50 - CERNER 6.30 MILLENNIUM x10(3)/mc L Lymphocytes % 10.3 % CERNER MILLENNIUM Lymphocytes Abs 1.2 1.0 - 3.6 CERNER x10(3)/mc MILLENNIUM L Monocytes % 7.4 % CERNER MILLENNIUM Monocyte Abs 0.8 0.2 - 1.0 CERNER x10(3)/mc MILLENNIUM L Eosinophils % 2.3 % CERNER MILLENNIUM Eosinophils Abs 0.3 0.0 - 0.5 CERNER x10(3)/mc MILLENNIUM L Basophils % 0.3 % CERNER MILLENNIUM Basophils Abs 0.0 0.0 - 0.2 CERNER x10(3)/mc MILLENNIUM L Immature Gran % 0.90 % CERNER MILLENNIUM Comment: Immature granulocytes(IG's)percentage an d absolute count will include metamyelocytes, myelocytes, and promyelo cytes. Blood smears from CBCs yielding IG's will be scanned manually for concor dance. If this scan disagrees with the automated IG or if promyelocytes are not ed, a manual differential will be performed. Rosenda Gran Abs 0.10 (H) 0.00 - 0.05 x10(3)/mcL CER NER MILLENNIUM Specimen Anatomical Collection Method Collection Time Receive d Time (Source) Location / / Volume Laterality Blood specimen 07/29/2015 2:13 AM 016 2:25 (specimen) EST AM EST Resulting Agency Comment Spec In Lab Elicia Caal MD HEMATOLOGY ORDERABLES Performing Organization Address City/[facility]/ZIP [place] [address] CERNER MILLENNIUM (ABNORMAL) Hemogram (07/29/2015 2:13 AM EST) P athologist Signature WBC 11.2 (H) 4.0 - 10.0 CERNER x10(3)/mcL MILLENNIUM RBC 3.02 (L) 3.93 - CERNER 5.22 MILLENNIUM x10(6)/mcL Hemoglobin 9.1 (L) 11.2 - CERNER 15.7 gm/dL MILLENNIUM Hematocrit 27.3 (L) 34.0 - CERNER 45.0 % MILLENNIUM MCV 90.4 79.0 - CERNER 94.0 fL MILLENNIUM MCH 30.1 26.6 - CERNER 32.2 pg MILLENNIUM MCHC 33.3 32.0 - CERNER 36.5 gm/dL MILLENNIUM Platelets 398 (H) 145 - 370 CERNER x10(3)/mcL MILLENNIUM RDWSD 50.4 (H) 35.0 - CERNER 46.0 fL MILLENNIUM RDWCV 15.4 (H) 10.9 - CERNER 14.4 % MILLENNIUM MPV 11.0 9.0 - 12.0 CERNER fL MILLENNIUM Specimen Anatomical Collection Method Collection Time Receive d Time (Source) Location / / Volume Laterality Blood specimen 07/29/2015 2:13 AM 016 2:25 (specimen) EST AM EST Resulting Agency Comment Spec In Lab Elicia Caal MD HEMATOLOGY ORDERABLES Performing Organization Address City/[facility]/ZIP Code Phon e Number [address] CERNER MILLENNIUM (ABNORMAL) Basic Metabolic Panel (non-fasting) (07/29/2015 2:13 AM EST) P athologist Signature Glucose Lvl 257 (H) 65 - 199 CERNER mg/dL MILLENNIUM Comment: Diabetes: >=200 mg/dL plus symp toms BUN 22 (H) 8 - 18 mg/dL CERNER MILLENNIUM Creatinine 1.87 (H) 0.70 - 1.20 mg/dL CERNER MILL ENNIUM Comment: Please note that the pediatric reference intervals supplied above were not validated at [facility]. Results from pediatri c patients should be [...] if there are any qu estions. Chloride 103 98 - 107 mmol/L CERNER MILLENN IUM CO2 22 22 - 31 mmol/L CERNER MILLENNI UM Anion Gap 14 5 - 15 mmol/L CERNER MILLENNIU M Calcium 8.1 (L) 8.5 - 10.5 mg/dL CERNER KINGSLEY NIUM Estimated GFR 27 (L) >=60 CERNER MILLENNIU M Comment: This [...] the following links into your internet browser. [email or web address] Specimen Anatomical Collection Method Collection Time Receive d Time (Source) Location / / Volume Laterality Blood specimen 07/29/2015 2:13 AM 016 2:25 (specimen) EST AM EST Resulting Agency Comment Spec In Lab Elicia Caal MD CHEMISTRY ORDERABLES Performing Organization Address City/State/Z[place] [address] CERNER MILLENNIUM (ABNORMAL) POCT Glucose (07/28/2015 7:48 PM EST) P athologist Signature POC Glucose 229 (H) 65 - 199 CERNER mg/dL MILLENNIUM Comment: Supplemental ranges: <140 mg/dL before meals <180 mg/dL all other times of the day Specimen Anatomical Collection Method Collection Time Receive d Time (Source) Location / / Volume Laterality Blood specimen 07/28/2015 7:48 PM 016 7:48 (specimen) EST PM EST Elicia Caal MD POINT OF CARE TEST ORDERABLE S Performing Organization Address City/State/ZIP [place] [address] CERNER MILLENNIUM (ABNORMAL) POCT Glucose (07/28/2015 4:27 PM EST) athologist Signature POC Glucose 237 (H) 65 - 199 CERNER mg/dL MILLENNIUM Comment: Supplemental ranges: <140 mg/dL before meals <180 mg/dL all other times of the day Specimen Anatomical Collection Method Collection Time Receive d Time (Source) Location / / Volume Laterality Blood specimen 07/28/2015 4:27 PM 016 4:27 (specimen) EST PM EST Elicia Caal MD POINT OF CARE TEST ORDERABLE S Performing Organization Address City/[facility]/ZIP Code Phon e Number [address] CERNER MILLENNIUM (ABNORMAL) POCT Glucose (07/28/2015 11:26 AM EST) athologist Signature POC Glucose 221 (H) 65 - 199 CERNER mg/dL MILLENNIUM Comment: Supplemental ranges: <140 mg/dL before meals <180 mg/dL all other times of the day Specimen Anatomical Collection Method Collection Time Receive d Time (Source) Location / / Volume Laterality Blood specimen 07/28/2015 11:26 6 (specimen) AM EST 11:26 AM EST Elicia Caal MD POINT OF CARE TEST ORDERABLE S Performing Organization Address City/State/ZIP [place] [address] CERNER MILLENNIUM POCT Glucose (07/28/2015 7:46 AM EST) athologist Signature POC Glucose 167 65 - 199 CERNER mg/dL [facility] Comment: Supplemental ranges: <140 mg/dL before meals <180 mg/dL all other times of the day Specimen Anatomical Collection Method Collection Time Receive d Time (Source) Location / / Volume Laterality Blood specimen 07/28/2015 7:46 AM 016 7:46 (specimen) EST AM EST Elicia Caal MD POINT OF CARE TEST ORDERABLE S Performing Organization Address City/State/ZIP Code Phon e Number [address] [facility] TSH (07/28/2015 7:37 AM EST) athologist Signature TSH 0.98 0.27 - 4.20 CERNER mcIU/mL [facility] Specimen Anatomical Collection Method Collection Time Receive d Time (Source) Location / / Volume Laterality Blood specimen 07/28/2015 7:37 AM 016 7:44 (specimen) EST AM EST Resulting Agency Comment Spec In Lab Elicia Caal MD CHEMISTRY ORDERABLES Performing Organization Address City/[facility]/ZIP [facility] Phon e Number [address] [facility] (ABNORMAL) Prealbumin (07/28/2015 7:37 AM EST) athologist Signature Prealbumin 10 (L) 20 - 40 CERNER mg/dL [facility] Comment: Prealbumin levels are generally lower in the pediatric population; adult concentrations are usually attained near puberty. Specimen Anatomical Collection Method Collection Time Receive d Time (Source) Location / / Volume Laterality Blood specimen 07/28/2015 7:37 AM 016 7:44 (specimen) EST AM EST Resulting Agency Comment Spec In Lab Elicia Caal MD CHEMISTRY ORDERABLES Performing Organization Address City/[facility]/ZIP Code Phon e Number [address] [facility] (ABNORMAL) Hepatic Function Panel (07/28/2015 7:37 AM EST) athologist Signature Total Protein 4.8 (L) 6.1 - 8.0 CERNER gm/dL MILLENNIUM Albumin 2.3 (L) 3.2 - 5.2 CERNER gm/dL MILLENNIUM AST 11 0 - 30 CERNER unit/L MILLENNIUM ALT 6 0 - 30 CERNER unit/L MILLENNIUM Alk Phos 184 (H) 40 - 104 CERNER unit/L MILLENNIUM Total 0.3 0.2 - 1.3 CERNER Bilirubin mg/dL MILLENNIUM Bili, Direct 0.1 0.0 - 0.3 CERNER mg/dL MILLENNIUM Specimen Anatomical Collection Method Collection Time Receive d Time (Source) Location / / Volume Laterality Blood specimen 07/28/2015 7:37 AM 016 7:44 (specimen) EST AM EST Resulting Agency Comment Spec In Lab Elicia Caal MD CHEMISTRY ORDERABLES Performing Organization Address City/[facility]/ZIP Code Phon e Number [address] CERNER MILLENNIUM Electrolytes, urine, random (07/28/2015 7:31 AM EST) athologist Signature U Sodium 61 mmol/L CERNER MILLENNIUM U Potassium 22 mmol/L CERNER MILLENNIUM U Chloride 56 mmol/L CERNER MILLENNIUM Specimen Anatomical Collection Method Collection Time Receive d Time (Source) Location / / Volume Laterality Urine specimen 07/28/2015 7:31 AM 016 8:21 (specimen) EST AM EST Resulting Agency Comment Spec In Lab Elicia Caal MD URINE ORDERABLES Performing Organization Address City/State/ZIP Code Phon e Number [address] CERNER MILLENNIUM Creatinine, urine, random (07/28/2015 7:31 AM EST) athologist Signature U Creatinine 62 mg/dL CERNER MILLENNIUM Specimen Anatomical Collection Method Collection Time Receive d Time (Source) Location / / Volume Laterality Urine specimen 07/28/2015 7:31 AM 016 8:21 (specimen) EST AM EST Resulting Agency Comment Spec In Lab Elicia Caal MD URINE ORDERABLES Performing Organization Address City/[facility]/ZIP Code Phon e Number [address] CERNER MILLENNIUM (ABNORMAL) Differential, Automated (07/28/2015 4:30 AM EST) [facility] Method Time Signature Neutrophils % 77.4 % CERNER MILLENNIUM Neutr Abs (ANC) 8.58 (H) 1.50 - CERNER 6.30 MILLENNIUM x10(3)/mc L Lymphocytes % 11.2 % CERNER MILLENNIUM Lymphocytes Abs 1.2 1.0 - 3.6 CERNER x10(3)/mc MILLENNIUM L Monocytes % 8.6 % CERNER MILLENNIUM Monocyte Abs 1.0 0.2 - 1.0 CERNER x10(3)/mc MILLENNIUM L Eosinophils % 1.4 % CERNER MILLENNIUM Eosinophils Abs 0.2 0.0 - 0.5 CERNER x10(3)/mc MILLENNIUM L Basophils % 0.4 % CERNER MILLENNIUM Basophils Abs 0.0 0.0 - 0.2 CERNER x10(3)/mc MILLENNIUM L Immature Gran % 1.00 % CERNER MILLENNIUM Comment: Immature granulocytes(IG's)percentage an d absolute count will include metamyelocytes, myelocytes, and promyelo cytes. Blood smears from CBCs yielding IG's will be scanned manually for concor dance. If this scan disagrees with the automated IG or if promyelocytes are not ed, a manual differential will be performed. Rosenda Gran Abs 0.11 (H) 0.00 - 0.05 x10(3)/mcL CER NER MILLENNIUM Specimen Anatomical Collection Method Collection Time Receive d Time (Source) Location / / Volume Laterality Blood specimen 07/28/2015 4:30 AM 016 4:40 (specimen) EST AM EST Resulting Agency Comment Spec In Lab Elicia Caal MD HEMATOLOGY ORDERABLES Performing Organization Address City/State/ZIP Code Phon e Number [address] CERNER MILLENNIUM (ABNORMAL) Hemogram (07/28/2015 4:30 AM EST) athologist Signature WBC 11.1 (H) 4.0 - 10.0 CERNER x10(3)/mcL MILLENNIUM RBC 3.03 (L) 3.93 - CERNER 5.22 MILLENNIUM x10(6)/mcL Hemoglobin 9.0 (L) 11.2 - CERNER 15.7 gm/dL MILLENNIUM Hematocrit 27.4 (L) 34.0 - CERNER 45.0 % MILLENNIUM MCV 90.4 79.0 - CERNER 94.0 fL MILLENNIUM MCH 29.7 26.6 - CERNER 32.2 pg MILLENNIUM MCHC 32.8 32.0 - CERNER 36.5 gm/dL MILLENNIUM Platelets 350 145 - 370 CERNER x10(3)/mcL MILLENNIUM RDWSD 50.6 (H) 35.0 - CERNER 46.0 fL MILLENNIUM RDWCV 15.4 (H) 10.9 - CERNER 14.4 % MILLENNIUM MPV 10.4 9.0 - 12.0 CERNER fL MILLENNIUM Specimen Anatomical Collection Method Collection Time Receive d Time (Source) Location / / Volume Laterality Blood specimen 07/28/2015 4:30 AM 016 4:40 (specimen) EST AM EST Resulting Agency Comment Spec In Lab Elicia Caal MD HEMATOLOGY ORDERABLES Performing Organization Address City/State/ZIP [place] [address] CERNER MILLENNIUM (ABNORMAL) Basic Metabolic Panel (non-fasting) (07/28/2015 4:30 AM EST) athologist Signature Glucose Lvl 193 65 - 199 CERNER mg/dL MILLENNIUM Comment: Diabetes: >=200 mg/dL plus symp toms BUN 20 (H) 8 - 18 mg/dL CERNER MILLENNIUM Creatinine 1.85 (H) 0.70 - 1.20 mg/dL CERNER MILL ENNIUM Comment: Please note that the pediatric reference intervals supplied above were not validated at [facility]. Results from pediatri c patients should be interpreted in conjunction to the patient's age, height and muscle mass. Sodium 140 135 - 145 mmol/L CERNER KINGSLEY NIUM Potassium 3.9 3.5 - 5.0 mmol/L CERNER KINGSLEY NIUM Comment: Please note: ??Patients with WBC >100,00 0 may have falsely elevated Potassium levels. ??For accurate Potassium quantif ication in these patients send serum separator tube (gold top) for subsequent determinations. ??Contact the Clinical Chemistry Laboratory if there are any qu estions. Chloride 104 98 - 107 mmol/L CERNER MILLENN IUM CO2 22 22 - 31 mmol/L CERNER MILLENNI UM Anion Gap 14 5 - 15 mmol/L CERNER MILLENNIU M Calcium 8.1 (L) 8.5 - 10.5 mg/dL CERNER KINGSLEY NIUM Estimated GFR 27 (L) >=60 CERNER MILLENNIU M Comment: This [...] the following links into your internet browser. [email or web address] Specimen Anatomical Collection Method Collection Time Receive d Time (Source) Location / / Volume Laterality Blood specimen 07/28/2015 4:30 AM 016 4:40 (specimen) EST AM EST Resulting Agency Comment Spec In Lab Elicia Caal MD CHEMISTRY ORDERABLES Performing Organization Address City/State/ZIP [place] [address] CERNER MILLENNIUM POCT Glucose (07/27/2015 9:18 PM EST) P athologist Signature POC Glucose 185 65 - 199 CERNER mg/dL MILLENNIUM Comment: Supplemental ranges: <140 mg/dL before meals <180 mg/dL all other times of the day Specimen Anatomical Collection Method Collection Time Receive d Time (Source) Location / / Volume Laterality Blood specimen 07/27/2015 9:18 PM 016 9:18 (specimen) EST PM EST Elicia Caal MD POINT OF CARE TEST ORDERABLE S Performing Organization Address City/State/ZIP [place] [address] CERNER MILLENNIUM POCT Glucose (07/27/2015 5:58 PM EST) athologist Signature POC Glucose 172 65 - 199 CERNER mg/dL MILLENNIUM Comment: Supplemental ranges: <140 mg/dL before meals <180 mg/dL all other times of the day Specimen Anatomical Collection Method Collection Time Receive d Time (Source) Location / / Volume Laterality Blood specimen 07/27/2015 5:58 PM 016 5:58 (specimen) EST PM EST Elicia Caal MD POINT OF CARE TEST ORDERABLE S Performing Organization Address City/[facility]/ZIP Code Phon e Number [place] [address] CERNER MILLENNIUM CK (07/27/2015 5:10 PM EST) athologist Signature CK, Total 98 0 - 160 CERNER unit/L MILLENNIUM Specimen Anatomical Collection Method Collection Time Receive d Time (Source) Location / / Volume Laterality Blood specimen 07/27/2015 5:10 PM 016 5:29 (specimen) EST PM EST Resulting Agency Comment Spec In Lab Elicia Caal MD CHEMISTRY ORDERABLES Performing Organization Address City/[facility]/ZIP Code [place] [address] CERNER MILLENNIUM POCT Glucose (07/27/2015 3:52 PM EST) athologist Signature POC Glucose 156 65 - 199 CERNER mg/dL MILLENNIUM Comment: Supplemental ranges: <140 mg/dL before meals <180 mg/dL all other times of the day Specimen Anatomical Collection Method Collection Time Receive d Time (Source) Location / / Volume Laterality Blood specimen 07/27/2015 3:52 PM 016 3:52 (specimen) EST PM EST Elicia Caal MD POINT OF CARE TEST ORDERABLE S Performing Organization Address City/State/ZIP Code Phon e Number [address] CERNER MILLENNIUM POCT Glucose (07/27/2015 11:44 AM EST) athologist Signature POC Glucose 173 65 - 199 CERNER mg/dL MILLENNIUM Comment: Supplemental ranges: <140 mg/dL before meals <180 mg/dL all other times of the day Specimen Anatomical Collection Method Collection Time Receive d Time (Source) Location / / Volume Laterality Blood specimen 07/27/2015 11:44 6 (specimen) AM EST 11:44 AM EST Elicia Caal MD POINT OF CARE TEST ORDERABLE S Performing Organization Address City/State/ZIP Code Phon e Number [address] CERNER MILLENNIUM (ABNORMAL) POCT Glucose (07/27/2015 8:16 AM EST) athologist Signature POC Glucose 212 (H) 65 - 199 CERNER mg/dL MILLENNIUM Comment: Supplemental ranges: <140 mg/dL before meals <180 mg/dL all other times of the day Specimen Anatomical Collection Method Collection Time Receive d Time (Source) Location / / Volume Laterality Blood specimen 07/27/2015 8:16 AM 016 8:16 (specimen) EST AM EST Elicia Caal MD POINT OF CARE TEST ORDERABLE S Performing Organization Address City/State/ZIP Code Phon e Number [address] CERNER MILLENNIUM (ABNORMAL) Differential, Automated (07/27/2015 5:12 AM EST) [facility] gist Method Time Signature Neutrophils % 86.7 % CERNER MILLENNIUM Neutr Abs (ANC) 11.90 (H) 1.50 - CERNER 6.30 MILLENNIUM x10(3)/mc L Lymphocytes % 6.0 % CERNER MILLENNIUM Lymphocytes Abs 0.8 (L) 1.0 - 3.6 CERNER x10(3)/mc MILLENNIUM L Monocytes % 5.4 % CERNER MILLENNIUM Monocyte Abs 0.7 0.2 - 1.0 CERNER x10(3)/mc MILLENNIUM L Eosinophils % 0.4 % CERNER MILLENNIUM Eosinophils Abs 0.0 0.0 - 0.5 CERNER x10(3)/mc MILLENNIUM L Basophils % 0.2 % CERNER MILLENNIUM Basophils Abs 0.0 0.0 - 0.2 CERNER x10(3)/mc MILLENNIUM L Immature Gran % 1.30 % CERNER MILLENNIUM Comment: Immature granulocytes(IG's)percentage an d absolute count will include metamyelocytes, myelocytes, and promyelo cytes. Blood smears from CBCs yielding IG's will be scanned manually for concor dance. If this scan disagrees with the automated IG or if promyelocytes are not ed, a manual differential will be performed. Rosenda Gran Abs 0.18 (H) 0.00 - 0.05 x10(3)/mcL CER NER MILLENNIUM Specimen Anatomical Collection Method Collection Time Receive d Time (Source) Location / / Volume Laterality Blood specimen 07/27/2015 5:12 AM 016 5:22 (specimen) EST AM EST Resulting Agency Comment Spec In Lab Elicia Caal MD HEMATOLOGY ORDERABLES Performing Organization Address City/State/ZIP [place] [address] CERNER MILLENNIUM (ABNORMAL) Hemogram (07/27/2015 5:12 AM EST) P athologist Signature WBC 13.7 (H) 4.0 - 10.0 CERNER x10(3)/mcL MILLENNIUM RBC 2.97 (L) 3.93 - CERNER 5.22 MILLENNIUM x10(6)/mcL Hemoglobin 8.8 (L) 11.2 - CERNER 15.7 gm/dL MILLENNIUM Hematocrit 27.0 (L) 34.0 - CERNER 45.0 % MILLENNIUM MCV 90.9 79.0 - CERNER 94.0 fL MILLENNIUM MCH 29.6 26.6 - CERNER 32.2 pg MILLENNIUM MCHC 32.6 32.0 - CERNER 36.5 gm/dL MILLENNIUM Platelets 354 145 - 370 CERNER x10(3)/mcL MILLENNIUM RDWSD 49.8 (H) 35.0 - CERNER 46.0 fL MILLENNIUM RDWCV 15.0 (H) 10.9 - CERNER 14.4 % MILLENNIUM MPV 10.2 9.0 - 12.0 CERNER fL MILLENNIUM Specimen Anatomical Collection Method Collection Time Receive d Time (Source) Location / / Volume Laterality Blood specimen 07/27/2015 5:12 AM 016 5:22 (specimen) EST AM EST Resulting Agency Comment Spec In Lab Elicia Caal MD HEMATOLOGY ORDERABLES Performing Organization Address City/State/ZIP [place] [address] CERNER MILLENNIUM (ABNORMAL) Basic Metabolic Panel (non-fasting) (07/27/2015 5:12 AM EST) P athologist Signature Glucose Lvl 221 (H) 65 - 199 CERNER mg/dL MILLENNIUM Comment: Diabetes: >=200 mg/dL plus symp toms BUN 20 (H) 8 - 18 mg/dL CERNER MILLENNIUM Creatinine 1.68 (H) 0.70 - 1.20 mg/dL CERNER MILL ENNIUM Comment: Please note that the pediatric reference intervals supplied above were not validated at [facility]. Results from pediatri c patients should be interpreted in conjunction to the patient's age, height and muscle mass. Sodium 142 135 - 145 mmol/L CERNER KINGSLEY NIUM Potassium 4.1 3.5 - 5.0 mmol/L CERNER KINGSLEY NIUM Comment: Please note: ??Patients with WBC >100,00 0 may have falsely elevated Potassium levels. ??For accurate Potassium quantif ication in these patients send serum separator tube (gold top) for subsequent determinations. ??Contact the Clinical Chemistry Laboratory if there are any qu estions. Chloride 104 98 - 107 mmol/L CERNER MILLENN IUM CO2 21 (L) 22 - 31 mmol/L CERNER MILLENNI UM Anion Gap 17 (H) 5 - 15 mmol/L CERNER MILLENNIU M Calcium 8.3 (L) 8.5 - 10.5 mg/dL CERNER KINGSLEY NIUM Estimated GFR 31 (L) >=60 CERNER MILLENNIU M Comment: This [...] the following links into your internet browser. [email or web address] Specimen Anatomical Collection Method Collection Time Receive d Time (Source) Location / / Volume Laterality Blood specimen 07/27/2015 5:12 AM 016 5:22 (specimen) EST AM EST Resulting Agency Comment Spec In Lab Elicia Caal MD CHEMISTRY ORDERABLES Performing Organization Address [facility] Phon e Number [address] [facility] MILLENNIUM Vancomycin, trough (07/26/2015 10:01 PM EST) athologist Signature Vanc Trough 18.6 mg/L CERNER MILLENNIUM Comment: Therapeutic range for complicated infect ions such as bacteremia, endocarditis, osteomyelitis, meningitis, and hospital- acquired pneumonia caused by S. aureus: 15-20 mg/L Therapeutic range for other indications: 10-15 mg/L Toxic: >25mg/L Reference: Vancomycin Therapeutic Monitoring: Cesar acevedo and Recommendations from the ASHP, IDSA and SIDP Task Force. ??Am J Health- Syst Pharm. 2009; 66:82-98 Specimen Anatomical Collection Method Collection Time Receive d Time (Source) Location / / Volume Laterality Blood specimen 07/26/2015 10: 6 (specimen) PM EST 10:07 PM EST Resulting Agency Comment Spec In Lab Elicia Caal MD CHEMISTRY ORDERABLES Performing Organization Address [facility] Phon e Number [address] CERNER MILLENNIUM Antibody screen (07/26/2015 4:25 PM EST) Patholo gist Method Time Signature Ab Screen Negative [facility] Interp MILLENNIUM Expires at 07/29/2015 DANIEL [id number] on: MILLENNIUM Specimen Anatomical Collection Method Collection Time Receive d Time (Source) Location / / Volume Laterality Blood specimen 07/26/2015 4:25 PM 016 4:25 (specimen) EST PM EST Resulting Agency Comment Spec In Lab Elicia Caal MD BLOOD BANK ORDERABLES Performing Organization Address City/[facility]/ZIP [place] [address] CERNER MILLENNIUM ABO/Rh Typing (07/26/2015 4:25 PM EST) athologist Signature ABORh Type A Neg CERNER MILLENNIUM Specimen Anatomical Collection Method Collection Time Receive d Time (Source) Location / / Volume Laterality Blood specimen 07/26/2015 4:25 PM 016 4:25 (specimen) EST PM EST Resulting Agency Comment Spec In Lab Elicia Caal MD BLOOD BANK ORDERABLES Performing Organization Address City/[facility] [place] [address] CERNER MILLENNIUM (ABNORMAL) Basic Metabolic Panel (non-fasting) (07/26/2015 4:15 PM EST) athologist [facility] Glucose Lvl 176 65 - 199 CERNER mg/dL MILLENNIUM Comment: Diabetes: >=200 mg/dL plus symp toms BUN 17 8 - 18 mg/dL CERNER MILLENNIUM Creatinine 1.67 (H) 0.70 - 1.20 mg/dL CERNER MILL ENNIUM Comment: Please note that the pediatric reference intervals supplied above were not validated at [facility]. Results from pediatri c patients should be interpreted in conjunction to the patient's age, height and muscle mass. Sodium 141 135 - 145 mmol/L CERNER KINGSLEY NIUM Potassium 3.7 3.5 - 5.0 mmol/L CERNER KINGSLEY NIUM Comment: Please note: ??Patients with WBC >100,00 0 may have falsely elevated Potassium levels. ??For accurate Potassium quantif ication in these patients send serum separator tube (gold top) for subsequent determinations. ??Contact the Clinical Chemistry Laboratory if there are any qu estions. Chloride 103 98 - 107 mmol/L CERNER MILLENN IUM CO2 20 (L) 22 - 31 mmol/L CERNER CAPOENNI UM Anion Gap 18 (H) 5 - 15 mmol/L CERNER MILLENNIU M Calcium 7.5 (L) 8.5 - 10.5 mg/dL DANIEL WYNN NIUM Estimated GFR 31 (L) >=60 CERNER KAILAIU M Comment: This estimated GFR (eGFR) value [...] the following links into your internet browser. [email or web address] Specimen Anatomical Collection Method Collection Time Receive d Time (Source) Location / / Volume Laterality Blood specimen 07/26/2015 4:15 PM 016 4:27 (specimen) EST PM EST Resulting Agency Comment Spec In Lab Elicia Caal MD CHEMISTRY ORDERABLES Performing Organization Address City/[facility]/ZIP Code Phon e Number [address] CERNER MILLENNIUM POCT Glucose (07/26/2015 3:38 PM EST) athologist Signature POC Glucose 154 65 - 199 CERNER mg/dL [facility] Comment: Supplemental ranges: <140 mg/dL before meals <180 mg/dL all other times of the day Specimen Anatomical Collection Method Collection Time Receive d Time (Source) Location / / Volume Laterality Blood specimen 07/26/2015 3:38 PM 016 3:38 (specimen) EST PM EST Elicia Caal MD POINT OF CARE TEST ORDERABLE S Performing Organization Address City/[facility]/ZIP Code Phon e Number [address] CERNER MILLENNIUM POCT Glucose (07/26/2015 11:49 AM EST) athologist Signature POC Glucose 166 65 - 199 CERNER mg/dL MILLENNIUM Comment: Supplemental ranges: <140 mg/dL before meals <180 mg/dL all other times of the day Specimen Anatomical Collection Method Collection Time Receive d Time (Source) Location / / Volume Laterality Blood specimen 07/26/2015 11:49 6 (specimen) AM EST 11:49 AM EST Elicia Caal MD POINT OF CARE TEST ORDERABLE S Performing Organization Address City/[facility]/ZIP [place] [address] CERNER MILLENNIUM POCT Glucose (07/26/2015 7:57 AM EST) athologist Signature POC Glucose 178 65 - 199 CERNER mg/dL MILLENNIUM Comment: Supplemental ranges: <140 mg/dL before meals <180 mg/dL all other times of the day Specimen Anatomical Collection Method Collection Time Receive d Time (Source) Location / / Volume Laterality Blood specimen 07/26/2015 7:57 AM 016 7:57 (specimen) EST AM EST Elicia Caal MD POINT OF CARE TEST ORDERABLE S Performing Organization Address City/[facility]/ZIP Code Phon e Number [address] CERNER MILLENNIUM (ABNORMAL) Differential, Automated (07/26/2015 1:40 AM EST) [facility] gist Method Time Signature Neutrophils % 75.6 % CERNER MILLENNIUM Neutr Abs (ANC) 8.58 (H) 1.50 - CERNER 6.30 MILLENNIUM x10(3)/mc L Lymphocytes % 10.2 % CERNER MILLENNIUM Lymphocytes Abs 1.2 1.0 - 3.6 CERNER x10(3)/mc MILLENNIUM L Monocytes % 11.0 % CERNER MILLENNIUM Monocyte Abs 1.2 (H) 0.2 - 1.0 CERNER x10(3)/mc MILLENNIUM L Eosinophils % 1.9 % CERNER MILLENNIUM Eosinophils Abs 0.2 0.0 - 0.5 CERNER x10(3)/mc MILLENNIUM L Basophils % 0.2 % CERNER MILLENNIUM Basophils Abs 0.0 0.0 - 0.2 CERNER x10(3)/mc MILLENNIUM L Immature Gran % 1.10 % CERNER MILLENNIUM Comment: Immature granulocytes(IG's)percentage an d absolute count will include metamyelocytes, myelocytes, and promyelo cytes. Blood smears from CBCs yielding IG's will be scanned manually for concor dance. If this scan disagrees with the automated IG or if promyelocytes are not ed, a manual differential will be performed. Rosenda Gran Abs 0.12 (H) 0.00 - 0.05 x10(3)/mcL CER NER MILLENNIUM Specimen Anatomical Collection Method Collection Time Receive d Time (Source) Location / / Volume Laterality Blood specimen 07/26/2015 1:40 AM 016 1:44 (specimen) EST AM EST Resulting Agency Comment Spec In Lab Elicia Caal MD HEMATOLOGY ORDERABLES Performing Organization Address City/State/ZIP [place] [address] CERNER MILLENNIUM (ABNORMAL) Hemogram (07/26/2015 1:40 AM EST) P athologist Signature WBC 11.4 (H) 4.0 - 10.0 CERNER x10(3)/mcL MILLENNIUM RBC 3.08 (L) 3.93 - CERNER 5.22 MILLENNIUM x10(6)/mcL Hemoglobin 9.2 (L) 11.2 - CERNER 15.7 gm/dL MILLENNIUM Hematocrit 28.0 (L) 34.0 - CERNER 45.0 % MILLENNIUM MCV 90.9 79.0 - CERNER 94.0 fL MILLENNIUM MCH 29.9 26.6 - CERNER 32.2 pg MILLENNIUM MCHC 32.9 32.0 - CERNER 36.5 gm/dL MILLENNIUM Platelets 347 145 - 370 CERNER x10(3)/mcL MILLENNIUM RDWSD 50.1 (H) 35.0 - CERNER 46.0 fL MILLENNIUM RDWCV 14.9 (H) 10.9 - CERNER 14.4 % MILLENNIUM MPV 10.6 9.0 - 12.0 CERNER fL MILLENNIUM Specimen Anatomical Collection Method Collection Time Receive d Time (Source) Location / / Volume Laterality Blood specimen 07/26/2015 1:40 AM 016 1:44 (specimen) EST AM EST Resulting Agency Comment Spec In Lab Elicia Caal MD HEMATOLOGY ORDERABLES Performing Organization Address City/State/ZIP [place] [address] CERNER MILLENNIUM (ABNORMAL) Basic Metabolic Panel (non-fasting) (07/26/2015 1:40 AM EST) P athologist Signature Glucose Lvl 193 65 - 199 CERNER mg/dL MILLENNIUM Comment: Diabetes: >=200 mg/dL plus symp toms BUN 17 8 - 18 mg/dL CERNER MILLENNIUM Creatinine 1.45 (H) 0.70 - 1.20 mg/dL CERNER MILL ENNIUM Comment: Please note that the pediatric reference intervals supplied above were not validated at [facility]. Results from pediatri c patients should be interpreted in conjunction to the patient's age, height and muscle mass. Sodium 140 135 - 145 mmol/L CERNER KINGSLEY NIUM Potassium 3.8 3.5 - 5.0 mmol/L CERNER KINGSLEY NIUM Comment: Please note: ??Patients with WBC >100,00 0 may have falsely elevated Potassium levels. ??For accurate Potassium quantif ication in these patients send serum separator tube (gold top) for subsequent determinations. ??Contact the Clinical Chemistry Laboratory if there are any qu estions. Chloride 103 98 - 107 mmol/L CERNER MILLENN IUM CO2 23 22 - 31 mmol/L CERNER MILLENNI UM Anion Gap 14 5 - 15 mmol/L CERNER MILLENNIU M Calcium 7.9 (L) 8.5 - 10.5 mg/dL CERNER KINGSLEY NIUM Estimated GFR 36 (L) >=60 CERNER MILLENNIU M Comment: This [...] the following links into your internet browser. [email or web address] Specimen Anatomical Collection Method Collection Time Receive d Time (Source) Location / / Volume Laterality Blood specimen 07/26/2015 1:40 AM 016 1:44 (specimen) EST AM EST Resulting Agency Comment Spec In Lab Elicia Caal MD CHEMISTRY ORDERABLES Performing Organization Address [facility] Phon e Number [address] CERNER MILLENNIUM Vancomycin, trough (07/25/2015 10:00 PM EST) P athologist Signature Vanc Trough 23.2 mg/L CERNER MILLENNIUM Comment: Therapeutic range for complicated infect ions such as bacteremia, endocarditis, osteomyelitis, meningitis, and hospital- acquired pneumonia caused by S. aureus: 15-20 mg/L Therapeutic range for other indications: 10-15 mg/L Toxic: >25 mg/L Reference: Vancomycin Therapeutic Monitoring: Cesar acevedo and Recommendations from the ASHP, IDSA and SIDP Task Force. ??Am J Health- Syst Pharm. 2009; 66:82-98 Specimen Anatomical Collection Method Collection Time Receive d Time (Source) Location / / Volume Laterality Blood specimen 07/25/2015 10:00 6 (specimen) PM EST 10:10 PM EST Resulting Agency Comment Spec In Lab Elicia Caal MD CHEMISTRY ORDERABLES Performing Organization Address [facility] Phon e Number [address] CERNER MILLENNIUM POCT Glucose (07/25/2015 7:51 PM EST) P athologist Signature POC Glucose 157 65 - 199 CERNER mg/dL MILLENNIUM Comment: Supplemental ranges: <140 mg/dL before meals <180 mg/dL all other times of the day Specimen Anatomical Collection Method Collection Time Receive d Time (Source) Location / / Volume Laterality Blood specimen 07/25/2015 7:51 PM 016 7:51 (specimen) EST PM EST Elicia Caal MD POINT OF CARE TEST ORDERABLE S Performing Organization Address City/State/ZIP [place] [address] CERNER MILLENNIUM POCT Glucose (07/25/2015 5:34 PM EST) athologist Signature POC Glucose 185 65 - 199 CERNER mg/dL ENNIUM Comment: Supplemental ranges: <140 mg/dL before meals <180 mg/dL all other times of the day Specimen Anatomical Collection Method Collection Time Receive d Time (Source) Location / / Volume Laterality Blood specimen 07/25/2015 5:34 PM 016 5:34 (specimen) EST PM EST Elicia Caal MD POINT OF CARE TEST ORDERABLE S Performing Organization Address City/[facility]/ZIP [place] [address] CERNER MILLENNIUM POCT Glucose (07/25/2015 11:48 AM EST) athologist Signature POC Glucose 172 65 - 199 CERNER mg/dL IUM Comment: Supplemental ranges: <140 mg/dL before meals <180 mg/dL all other times of the day Specimen Anatomical Collection Method Collection Time Receive d Time (Source) Location / / Volume Laterality Blood specimen 07/25/2015 11:48 6 (specimen) AM EST 11:48 AM EST Elicia Caal MD POINT OF CARE TEST ORDERABLE S Performing Organization Address City/[facility]/ZIP [place] [address] CERNER MILLENNIUM (ABNORMAL) Vancomycin, trough (07/25/2015 10:28 AM EST) P athologist Signature Vanc Trough 26.8 mg/L CERNER (Critical) MILLENNIUM Comment: Called by: , Read back by:iraj stewart rn _, Date/Time:07/25/15 11:11. Therapeutic range for complicated infect ions such as bacteremia, endocarditis, osteomyelitis, meningitis, and hospital- acquired pneumonia caused by S. aureus: 15-20 mg/L Therapeutic range for other indications: 10-15 mg/L Toxic: >25 mg/L Reference: Vancomycin Therapeutic Monitoring: Cesar acevedo and Recommendations from the ASHP, IDSA and SIDP Task Force. ??Am J Health- Syst Pharm. 2009; 66:82-98 Please be advised that as of 01/18/2015 kacy mahoney Vancomycin assay has been re-calibrated and this re-calibration talavera s resulted in an approximate 20% decrease in the reported Vancomycin resu lts. This re-calibration was mandated by the assay label folder and was needed to bring the Vancomycin concentrations into better alignment with other Vancomy alan assay. Specimen Anatomical Collection Method Collection Time Receive d Time (Source) Location / / Volume Laterality Blood specimen 07/25/2015 10:28 6 (specimen) AM EST 10:33 AM EST Resulting Agency Comment Spec In Lab Elicia Caal MD CHEMISTRY ORDERABLES Performing Organization Address City/[facility]/ZIP Code Phon e Number [address] CERNER MILLENNIUM POCT Glucose (07/25/2015 8:00 AM EST) athologist Signature POC Glucose 150 65 - 199 CERNER mg/dL MILLENNIUM Comment: Supplemental ranges: <140 mg/dL before meals <180 mg/dL all other times of the day Specimen Anatomical Collection Method Collection Time Receive d Time (Source) Location / / Volume Laterality Blood specimen 07/25/2015 8:00 AM 016 8:00 (specimen) EST AM EST Elicia Caal MD POINT OF CARE TEST ORDERABLE S Performing Organization Address City/[facility]/ZIP Code Phon e Number [address] CERNER MILLENNIUM Nucleated Red Blood Cells (07/25/2015 2:01 AM EST) P athologist Signature nRBC % Auto 0.0 % CERNER MILLENNIUM nRBC Abs Auto 0.000 0.000 - CERNER 0.012 MILLENNIUM x10(3)/mcL Specimen Anatomical Collection Method Collection Time Receive d Time (Source) Location / / Volume Laterality Blood specimen 07/25/2015 2:01 AM 016 2:29 (specimen) EST AM EST Resulting Agency Comment Spec In Lab Elicia Caal MD HEMATOLOGY ORDERABLES Performing Organization Address City/State/ZIP Code Phon e Number [address] CERNER MILLENNIUM (ABNORMAL) Differential, Automated (07/25/2015 2:01 AM EST) [facility] Method Time Signature Neutrophils % 85.8 % CERNER MILLENNIUM Neutr Abs (ANC) 12.08 (H) 1.50 - CERNER 6.30 MILLENNIUM x10(3)/mc L Lymphocytes % 5.7 % CERNER MILLENNIUM Lymphocytes Abs 0.8 (L) 1.0 - 3.6 CERNER x10(3)/mc MILLENNIUM L Monocytes % 7.6 % CERNER MILLENNIUM Monocyte Abs 1.1 (H) 0.2 - 1.0 CERNER x10(3)/mc MILLENNIUM L Eosinophils % 0.1 % CERNER MILLENNIUM Eosinophils Abs 0.0 0.0 - 0.5 CERNER x10(3)/mc MILLENNIUM L Basophils % 0.1 % CERNER MILLENNIUM Basophils Abs 0.0 0.0 - 0.2 CERNER x10(3)/mc MILLENNIUM L Immature Gran % 0.70 % CERNER MILLENNIUM Comment: Immature granulocytes(IG's)percentage an d absolute count will include metamyelocytes, myelocytes, and promyelo cytes. Blood smears from CBCs yielding IG's will be scanned manually for concor dance. If this scan disagrees with the automated IG or if promyelocytes are not ed, a manual differential will be performed. Rosenda Gran Abs 0.10 (H) 0.00 - 0.05 x10(3)/mcL CER NER MILLENNIUM Specimen Anatomical Collection Method Collection Time Receive d Time (Source) Location / / Volume Laterality Blood specimen 07/25/2015 2:01 AM 016 2:29 (specimen) EST AM EST Resulting Agency Comment Spec In Lab Elicia Caal MD HEMATOLOGY ORDERABLES Performing Organization Address City/State/ZIP Code Phon e Number [address] CERNER MILLENNIUM (ABNORMAL) Hemogram (07/25/2015 2:01 AM EST) athologist Signature WBC 14.1 (H) 4.0 - 10.0 CERNER x10(3)/mcL MILLENNIUM RBC 3.13 (L) 3.93 - CERNER 5.22 MILLENNIUM x10(6)/mcL Hemoglobin 9.4 (L) 11.2 - CERNER 15.7 gm/dL MILLENNIUM Hematocrit 28.7 (L) 34.0 - CERNER 45.0 % MILLENNIUM MCV 91.7 79.0 - CERNER 94.0 fL MILLENNIUM MCH 30.0 26.6 - CERNER 32.2 pg MILLENNIUM MCHC 32.8 32.0 - CERNER 36.5 gm/dL MILLENNIUM Platelets 293 145 - 370 CERNER x10(3)/mcL MILLENNIUM RDWSD 50.0 (H) 35.0 - CERNER 46.0 fL MILLENNIUM RDWCV 14.9 (H) 10.9 - CERNER 14.4 % MILLENNIUM MPV 11.3 9.0 - 12.0 CERNER fL MILLENNIUM Specimen Anatomical Collection Method Collection Time Receive d Time (Source) Location / / Volume Laterality Blood specimen 07/25/2015 2:01 AM 016 2:29 (specimen) EST AM EST Resulting Agency Comment Spec In Lab Elicia Caal MD HEMATOLOGY ORDERABLES Performing Organization Address City/State/ZIP [place] [address] CERNER MILLENNIUM (ABNORMAL) Basic Metabolic Panel (non-fasting) (07/25/2015 2:01 AM EST) athologist Signature Glucose Lvl 181 65 - 199 CERNER mg/dL MILLENNIUM Comment: Diabetes: >=200 mg/dL plus symp toms BUN 14 8 - 18 mg/dL CERNER MILLENNIUM Comment: result rechecked-jayden Creatinine 0.91 0.70 - 1.20 mg/dL CERNER MILL ENNIUM Comment: Please note that the pediatric reference intervals supplied above were not validated at [facility]. Results from pediatri c patients should be interpreted in conjunction to the patient's age, height and muscle mass. Sodium 137 135 - 145 mmol/L CERNER KINGSLEY NIUM Comment: rechecked jayden Potassium 4.2 3.5 - 5.0 mmol/L CERNER KINGSLEY NIUM Comment: rechecked jayden Please note: ??Patients with WBC >100,00 0 may have falsely elevated Potassium levels. ??For accurate Potassium quantif ication in these patients send serum separator tube (gold top) for subsequent determinations. ??Contact the Clinical Chemistry Laboratory if there are any qu estions. Chloride 98 98 - 107 mmol/L CERNER MILLENN IUM Comment: rechecked jayden CO2 18 (L) 22 - 31 mmol/L CERNER MILLENNI UM Anion Gap 21 (H) 5 - 15 mmol/L CERNER MILLENNIU M Calcium 8.1 (L) 8.5 - 10.5 mg/dL CERNER KINGSLEY NIUM Estimated GFR >60 >=60 CERNER MILLENNIU M Comment: This estimated [...] the following links into your internet browser. [email or web address] Specimen Anatomical Collection Method Collection Time Receive d Time (Source) Location / / Volume Laterality Blood specimen 07/25/2015 2:01 AM 016 2:29 (specimen) EST AM EST Resulting Agency Comment Spec In Lab Elicia Caal MD CHEMISTRY ORDERABLES Performing Organization Address City/State/ZIP [place] [address] CERNER MILLENNIUM POCT Glucose (07/24/2015 3:33 PM EST) P athologist Signature POC Glucose 155 65 - 199 CERNER mg/dL MILLENNIUM Comment: Supplemental ranges: <140 mg/dL before meals <180 mg/dL all other times of the day Specimen Anatomical Collection Method Collection Time Receive d Time (Source) Location / / Volume Laterality Blood specimen 07/24/2015 3:33 PM 2 016 3:33 (specimen) EST PM EST Elicia Caal MD POINT OF CARE TEST ORDERABLE S Performing Organization Address City/State/ZIP Code Phon e Number [place] [phone] CERNER MILLENNIUM (ABNORMAL) BLOOD GAS 2 ARTERIAL (07/24/2015 2:32 PM EST) Analysis Performed At Patho logist Time Signature pH Art 7.43 7.35 - CERNER 7.45 MILLENNIUM pCO2 Art 35 35 - 45 CERNER mmHg MILLENNIUM pO2 Art 229 (H) 85 - 104 CERNER mmHg MILLENNIUM HCO3 Art 22.9 20.0 - CERNER 26.0 MILLENNIUM mmol/L BE Art -1.4 -3.0 - 3.0 CERNER mmol/L MILLENNIUM Hgb Blood Gas 9.1 (L) 11.2 - CERNER 15.7 gm/dL MILLENNIUM O2HB Art 97.2 (H) 94.0 - CERNER 97.0 % MILLENNIUM COHB Art 2.2 % CERNER MILLENNIUM Comment: Nonsmokers: 0.5-1.5% COHB Smokers: Variable, but usually less than 10% Toxic: 20-30% COHB Lethal: Greater than 60% COHB METHB Art 0.3 <=1.5 % CERNER MILLENNIUM Na Whole Blood 133 (L) 135 - 145 mmol/L CERNER M ILLENNIUM K Whole Blood 3.4 (L) 3.5 - 5.0 mmol/L CERNER MA LLENNIUM Comment: Please note: Patients with WBC >100,000 may have falsely elevated Potassium levels. Contact the Clinical Chemistry L aboratory if there are any questions. ICa Whole Blood 1.31 1.15 - 1.33 mmol/L CERNE R MILLENNIUM Comment: Note: ??Total bilirubin higher than 20 m g/dL may lead to falsely low ionized calcium. CL Whole Blood 101 98 - 107 mmol/L CERNER MA LLENNIUM Gluc Whole Bld 148 65 - 199 [facility]/dL [facility] Comment: Diabetes: >=200 mg/dL plus symp toms. Specimen Anatomical Collection Method Collection Time Receive d Time (Source) Location / / Volume Laterality Blood specimen 07/24/2015 2:32 PM 016 2:32 (specimen) EST PM EST Elicia Caal MD CHEMISTRY ORDERABLES Performing Organization Address City/State/ZIP Code Phon e Number [place] [phone] CERNER MILLENNIUM (ABNORMAL) BLOOD GAS 2 ARTERIAL (07/24/2015 1:41 PM EST) Analysis Performed At Patho logist Time Signature pH Art 7.44 7.35 - CERNER 7.45 MILLENNIUM pCO2 Art 33 (L) 35 - 45 CERNER mmHg MILLENNIUM pO2 Art 273 (H) 85 - 104 CERNER mmHg MILLENNIUM HCO3 Art 21.9 20.0 - CERNER 26.0 MILLENNIUM mmol/L BE Art -2.4 -3.0 - 3.0 CERNER mmol/L MILLENNIUM Hgb Blood Gas 9.1 (L) 11.2 - CERNER 15.7 gm/dL MILLENNIUM O2HB Art 97.5 (H) 94.0 - CERNER 97.0 % MILLENNIUM COHB Art 1.9 % CERNER MILLENNIUM Comment: Nonsmokers: 0.5-1.5% COHB Smokers: Variable, but usually less than 10% Toxic: 20-30% COHB Lethal: Greater than 60% COHB METHB Art 0.3 <=1.5 % CERNER MILLENNIUM Na Whole Blood 131 (L) 135 - 145 mmol/L CERNER M ILLENNIUM K Whole Blood 3.4 (L) 3.5 - 5.0 mmol/L CERNER MA LLENNIUM Comment: Please note: Patients with WBC >100,000 may have falsely elevated Potassium levels. Contact the Clinical Chemistry L aboratory if there are any questions. ICa Whole Blood 1.09 (L) 1.15 - 1.33 mmol/L CERNE R MILLENNIUM Comment: Note: ??Total bilirubin higher than 20 m g/dL may lead to falsely low ionized calcium. CL Whole Blood 101 98 - 107 mmol/L CERNER MA LLENNIUM Gluc Whole Bld 148 65 - 199 mg/dL CERNER MIL LENNIUM Comment: Diabetes: >=200 mg/dL plus symp toms. Specimen Anatomical Collection Method Collection Time Receive d Time (Source) Location / / Volume Laterality Blood specimen 07/24/2015 1:41 PM 016 1:41 (specimen) EST PM EST Elicia Caal MD CHEMISTRY ORDERABLES Performing Organization Address City/State/ZIP [place] [address] CERNER MILLENNIUM (ABNORMAL) BLOOD GAS 2 ARTERIAL (07/24/2015 12:55 PM EST) Analysis Performed At Patho logist Time Signature pH Art 7.47 (H) 7.35 - CERNER 7.45 MILLENNIUM pCO2 Art 28 (L) 35 - 45 CERNER mmHg MILLENNIUM pO2 Art 201 (H) 85 - 104 CERNER mmHg MILLENNIUM HCO3 Art 19.7 (L) 20.0 - CERNER 26.0 MILLENNIUM mmol/L BE Art -4.0 (L) -3.0 - 3.0 CERNER mmol/L MILLENNIUM Hgb Blood Gas 9.0 (L) 11.2 - CERNER 15.7 gm/dL MILLENNIUM O2HB Art 97.0 94.0 - CERNER 97.0 % MILLENNIUM COHB Art 2.4 % CERNER MILLENNIUM Comment: Nonsmokers: 0.5-1.5% COHB Smokers: Variable, but usually less than 10% Toxic: 20-30% COHB Lethal: Greater than 60% COHB METHB Art 0.3 <=1.5 % CERNER MILLENNIUM Na Whole Blood 130 (L) 135 - 145 mmol/L CERNER M ILLENNIUM K Whole Blood 3.4 (L) 3.5 - 5.0 mmol/L CERNER MA LLENNIUM Comment: Please note: Patients with WBC >100,000 may have falsely elevated Potassium levels. Contact the Clinical Chemistry L aboratory if there are any questions. ICa Whole Blood 1.10 (L) 1.15 - 1.33 mmol/L CERNE R MILLENNIUM Comment: Note: ??Total bilirubin higher than 20 m g/dL may lead to falsely low ionized calcium. CL Whole Blood 102 98 - 107 mmol/L CERNER MA LLENNIUM Gluc Whole Bld 144 65 - 199 mg/dL CERNER MIL LENNIUM Comment: Diabetes: >=200 mg/dL plus symp toms. Specimen Anatomical Collection Method Collection Time Receive d Time (Source) Location / / Volume Laterality Blood specimen 07/24/2015 12:55 6 (specimen) PM EST 12:55 PM EST Elicia Caal MD CHEMISTRY ORDERABLES Performing Organization Address City/[facility]/ZIP [facility] [place] [address] CERNER MILLENNIUM Anaerobic Culture (07/24/2015 12:00 PM EST) [facility] Method Time Signature Anaerobic No anaerobic CERNER Culture organisms MILLENNIUM isolated Specimen Anatomical Collection Method Collection Time Receive d Time (Source) Location / / Volume Laterality Specimen of 07/24/2015 12:00 07/24/2015 unknown material PM EST 12:59 PM ES T (specimen) Comment: LEFT GROIN ASPIRATION. Resulting Agency Comment Spec In Lab Elicia Caal MD MICROBIOLOGY - GENERAL ORDER STAN Performing Organization Address City/[facility] [place] [address] CERNER MILLENNIUM (ABNORMAL) Body fluid culture (07/24/2015 12:00 PM EST) Component Value Ref Test Analysis Performed At [facility] Range Method Time Signature Body Fluid Rare CERNER Culture Staphylococcus MILLENNIUM aureus, MRSA (A) Gram Stain Few White Blood Cells seen CE RNER Rare Gram Positive Cocci in clusters seen MILLENNIUM (A) Organism Staphylococcus CERNER aureus, MRSA (A) MILLENNIUM Organism Gram Positive CERNER Cocci in clusters MILLENNIUM (A) Specimen Anatomical Collection Method Collection Time Receive d Time (Source) Location / / Volume Laterality Specimen of 07/24/2015 12:00 07/24/2015 unknown material PM EST 12:59 PM ES T (specimen) Comment: LEFT GROIN ASPIRATION. Resulting Agency Comment Spec In Lab Organism Antibiotic Method Susceptibility Staphylococcus aureus, mrsa Amoxicillin + Clavulanate MICROSCAN METHOD Resistant Staphylococcus aureus, mrsa Ampicillin MICROSCAN METHOD Res istant Staphylococcus aureus, mrsa Ampicillin + Sulbactam MICROSCAN MET HOD Resistant Staphylococcus aureus, mrsa Cefazolin MICROSCAN METHOD Res istant Staphylococcus aureus, mrsa Ceftriaxone MICROSCAN METHOD Res istant Staphylococcus aureus, mrsa Ciprofloxacin MICROSCAN METHOD Sen sitive Staphylococcus aureus, mrsa Clindamycin MICROSCAN METHOD Sen sitive Staphylococcus aureus, mrsa Daptomycin MICROSCAN METHOD 0.5 : Sensitive Staphylococcus aureus, mrsa Erythromycin MICROSCAN METHOD Res istant Staphylococcus aureus, mrsa Gentamicin MICROSCAN METHOD Sen sitive Comment: Gentamicin is not a ppropriate for [place]-therapy. Staphylococcus aureus, mrsa Levofloxacin MICROSCAN METHOD Sen sitive Staphylococcus aureus, mrsa Linezolid MICROSCAN METHOD Sen sitive Staphylococcus aureus, mrsa Oxacillin MICROSCAN METHOD Res istant Comment: MRSA, Note Nafci llin Resistance Staphylococcus aureus, mrsa Penicillin MICROSCAN METHOD Res istant Staphylococcus aureus, mrsa Tetracycline MICROSCAN METHOD Sen sitive Staphylococcus aureus, mrsa Trimethoprim/Sulfa MICROSCAN METHOD Sensitive Staphylococcus aureus, mrsa Vancomycin MICROSCAN METHOD Sen sitive Elicia Caal MD MICROBIOLOGY - GENERAL ORDER STAN Performing Organization Address City/State/ZIP Code Phon e Number [place] [phone] [facility] Surgical Pathology Report (07/24/2015 11:26 AM EST) Component Value Ref Test Analysis Performed At [facility] Range Method Time Signature Surgical [id number] ? Location: [facility]; [facility]; [facility] Pathology [facility] Report The signing pathologist has (i) examined the relevant preparation(s) for the specimen(s) and (ii) rendered or confirmed the diagnosis(es) . . ?Surgic al Pathology DIAGNOSIS Left below knee, amputation 1. Ulcer with gangrenous necrosis 2. Portion of arterial graft with fibrosis 07/29/15 VAM 07/29/15 Verified by: ? Amol Reis MD ?Pathologist ?(Electronic Signature ) The attending pathologist whose signature appears on this re port has reviewed all diagnostic slides and has edited the gross and/ or microscopic portion of the report in karina dering the final pathologic diagnosis. CLINICAL INFORMATION Specimen Submitted: A - Left foot Clinical History: SPECIMEN PROCESSING A - Labeled/Fixative: Left foot, fresh. Quantity/Size: Single, 20.5 cm in length. Tissue Description: Received specimen consists of left foot measuring from toe to heel 20.5 cm and from the heel t o the surgical margin 13.2 cm. Toes are with normal color and without gross abnormalities identified. There is a large ulceration with eschar formation in the medial aspect of the lower leg measuring 6.5 x 2.7 cm. Margins of the ulceration are yellowish-green and indurated. Sections/Processing: (1) gra ft/artery; (2-4) skin, including ulcer; (5-6) bone deep to the ulcer; (7-8) soft tissue at margin. Sections submitted for decal. (5-6) (R8) ??em Specimen (Source) Anatomical Collection Method Collection Time Re ceived Time Location / / Volume Laterality 07/24/2015 11:26 AM EST Elicia Caal MD PATHOLOGY/CYTOLOGY ORDERABLE S Performing Organization Address City/[facility]/ZIP Code Phon e Number [address] CERNER MILLENNIUM Specimen to Pathology (surgical or derm) (07/24/2015 11:26 AM EST) Specimen Anatomical Collection Method Collection Time Receive d Time (Source) Location / / Volume Laterality AP Specimen 07/24/2015 11:26 07/24/2015 AM EST 11:26 AM EST Narrative CERNER MILLENNIUM - 07/24/2015 11:26 AM EST Specimen requisition ordered. ??Separate Pathology report to follow Elicia Caal MD PATHOLOGY/CYTOLOGY ORDERABLE S Performing Organization Address City/[facility]/ZIP [facility] [place] [address] CERNER MILLENNIUM POCT Glucose (07/24/2015 7:29 AM EST) P athologist Signature POC Glucose 161 65 - 199 CERNER mg/dL [facility] Comment: Supplemental ranges: <140 mg/dL before meals <180 mg/dL all other times of the day Specimen Anatomical Collection Method Collection Time Receive d Time (Source) Location / / Volume Laterality Blood specimen 07/24/2015 7:29 AM 016 7:29 (specimen) EST AM EST Elicia Caal MD POINT OF CARE TEST ORDERABLE S Performing Organization Address City/[facility]/ZIP Code Phon e Number [address] CERNER MILLENNIUM Nucleated Red Blood Cells (07/24/2015 5:03 AM EST) P athologist Signature nRBC % Auto 0.0 % CERNER MILLENNIUM nRBC Abs Auto 0.000 0.000 - CERNER 0.012 MILLENNIUM x10(3)/mcL Specimen Anatomical Collection Method Collection Time Receive d Time (Source) Location / / Volume Laterality Blood specimen 07/24/2015 5:03 AM 016 6:40 (specimen) EST AM EST Resulting Agency Comment Spec In Lab Elicia Caal MD HEMATOLOGY ORDERABLES Performing Organization Address City/[facility]/ZIP Code Phon e Number [address] CERNER MILLENNIUM (ABNORMAL) Differential, Automated (07/24/2015 5:03 AM EST) Patholo gist Method Time Signature Neutrophils % 76.4 % CERNER MILLENNIUM Neutr Abs (ANC) 6.82 (H) 1.50 - CERNER 6.30 MILLENNIUM x10(3)/mc L Lymphocytes % 9.0 % CERNER MILLENNIUM Lymphocytes Abs 0.8 (L) 1.0 - 3.6 CERNER x10(3)/mc MILLENNIUM L Monocytes % 12.3 % CERNER MILLENNIUM Monocyte Abs 1.1 (H) 0.2 - 1.0 CERNER x10(3)/mc MILLENNIUM L Eosinophils % 1.9 % CERNER MILLENNIUM Eosinophils Abs 0.2 0.0 - 0.5 CERNER x10(3)/mc MILLENNIUM L Basophils % 0.1 % CERNER MILLENNIUM Basophils Abs 0.0 0.0 - 0.2 CERNER x10(3)/mc MILLENNIUM L Immature Gran % 0.30 % CERNER MILLENNIUM Comment: Immature granulocytes(IG's)percentage an d absolute count will include metamyelocytes, myelocytes, and promyelo cytes. Blood smears from CBCs yielding IG's will be scanned manually for concor dance. If this scan disagrees with the automated IG or if promyelocytes are not ed, a manual differential will be performed. Rosenda Gran Abs 0.03 0.00 - 0.05 x10(3)/mcL CER NER MILLENNIUM Specimen Anatomical Collection Method Collection Time Receive d Time (Source) Location / / Volume Laterality Blood specimen 07/24/2015 5:03 AM 016 6:40 (specimen) EST AM EST Resulting Agency Comment Spec In Lab Elicia Caal MD HEMATOLOGY ORDERABLES Performing Organization Address City/State/ZIP Code Phon e Number [place] [phone] CERNER MILLENNIUM (ABNORMAL) Hemogram (07/24/2015 5:03 AM EST) P athologist Signature WBC 8.9 4.0 - 10.0 CERNER x10(3)/mcL MILLENNIUM RBC 3.10 (L) 3.93 - CERNER 5.22 MILLENNIUM x10(6)/mcL Hemoglobin 9.3 (L) 11.2 - CERNER 15.7 gm/dL MILLENNIUM Hematocrit 27.7 (L) 34.0 - CERNER 45.0 % MILLENNIUM MCV 89.4 79.0 - CERNER 94.0 fL MILLENNIUM MCH 30.0 26.6 - CERNER 32.2 pg MILLENNIUM MCHC 33.6 32.0 - CERNER 36.5 gm/dL MILLENNIUM Platelets 222 145 - 370 CERNER x10(3)/mcL MILLENNIUM RDWSD 48.9 (H) 35.0 - CERNER 46.0 fL MILLENNIUM RDWCV 15.0 (H) 10.9 - CERNER 14.4 % MILLENNIUM MPV 11.5 9.0 - 12.0 CERNER fL MILLENNIUM Specimen Anatomical Collection Method Collection Time Receive d Time (Source) Location / / Volume Laterality Blood specimen 07/24/2015 5:03 AM 016 6:40 (specimen) EST AM EST Resulting Agency Comment Spec In Lab Elicia Caal MD HEMATOLOGY ORDERABLES Performing Organization Address City/State/ZIP Code Phon e Number [place] [phone] CERNER MILLENNIUM (ABNORMAL) Basic Metabolic Panel (non-fasting) (07/24/2015 5:03 AM EST) P athologist Signature Glucose Lvl 154 65 - 199 CERNER mg/dL MILLENNIUM Comment: Diabetes: >=200 mg/dL plus symp toms BUN 7 (L) 8 - 18 mg/dL CERNER MILLENNIUM Creatinine 0.35 (L) 0.70 - 1.20 mg/dL CERNER MILL ENNIUM Comment: Please note that the pediatric reference intervals supplied above were not validated at [facility]. Results from pediatri c patients should be interpreted in conjunction to the patient's age, height and muscle mass. Sodium 134 (L) 135 - 145 mmol/L CERNER KINGSLEY NIUM Potassium 3.6 3.5 - 5.0 mmol/L CERNER KINGSLEY NIUM Comment: Please note: ??Patients with WBC >100,00 0 may have falsely elevated Potassium levels. ??For accurate Potassium quantif ication in these patients send serum separator tube (gold top) for subsequent determinations. ??Contact the Clinical Chemistry Laboratory if there are any qu estions. Chloride 95 (L) 98 - 107 mmol/L CERNER MILLENN IUM CO2 22 22 - 31 mmol/L CERNER MILLENNI UM Anion Gap 17 (H) 5 - 15 mmol/L CERNER MILLENNIU M Calcium 8.0 (L) 8.5 - 10.5 mg/dL CERNER KIGNSLEY NIUM Estimated GFR >60 >=60 CERNER MILLENNIU M Comment: This estimated [...] the following links into your internet browser. [email or web address] Specimen Anatomical Collection Method Collection Time Receive d Time (Source) Location / / Volume Laterality Blood specimen 07/24/2015 5:03 AM 016 6:40 (specimen) EST AM EST Resulting Agency Comment Spec In Lab Elicia Caal MD CHEMISTRY ORDERABLES Performing Organization Address City/[facility]/ZIP Code Phon e Number [address] CERNER MILLENNIUM POCT Glucose (07/23/2015 9:06 PM EST) P athologist Signature POC Glucose 105 65 - 199 CERNER mg/dL [facility] Comment: Supplemental ranges: <140 mg/dL before meals <180 mg/dL all other times of the day Specimen Anatomical Collection Method Collection Time Receive d Time (Source) Location / / Volume Laterality Blood specimen 07/23/2015 9:06 PM 016 9:06 (specimen) EST PM EST Elicia Caal MD POINT OF CARE TEST ORDERABLE S Performing Organization Address City/[facility]/ZIP Code Phon e Number [address] [facility] MILLENNIUM Antibody screen (07/23/2015 8:50 PM EST) [facility] gist Method Time Signature Ab Screen Negative [facility] Expires at 07/26/2015 [facility] [id number] on: MILLENNIUM Specimen Anatomical Collection Method Collection Time Receive d Time (Source) Location / / Volume Laterality Blood specimen 07/23/2015 8:50 PM 016 8:56 (specimen) EST PM EST Resulting Agency Comment Spec In Lab Elicia Caal MD BLOOD BANK ORDERABLES Performing Organization Address City/[facility]/ZIP Code Phon e Number [address] [facility] ABO/Rh Typing (07/23/2015 8:50 PM EST) P athologist Signature ABORh Type A Neg [facility] Specimen Anatomical Collection Method Collection Time Receive d Time (Source) Location / / Volume Laterality Blood specimen 07/23/2015 8:50 PM 016 8:56 (specimen) EST PM EST Resulting Agency Comment Spec In Lab Elicia Caal MD BLOOD BANK ORDERABLES Performing Organization Address City/State/ZIP Code Phon e Number [address] CERNER MILLENNIUM (ABNORMAL) Differential, Automated (07/23/2015 8:50 PM EST) [facility] gist Method Time Signature Neutrophils % 74.3 % CERNER MILLENNIUM Neutr Abs (ANC) 6.56 (H) 1.50 - CERNER 6.30 MILLENNIUM x10(3)/mc L Lymphocytes % 10.7 % CERNER MILLENNIUM Lymphocytes Abs 1.0 1.0 - 3.6 CERNER x10(3)/mc MILLENNIUM L Monocytes % 12.4 % CERNER MILLENNIUM Monocyte Abs 1.1 (H) 0.2 - 1.0 CERNER x10(3)/mc MILLENNIUM L Eosinophils % 2.1 % CERNER MILLENNIUM Eosinophils Abs 0.2 0.0 - 0.5 CERNER x10(3)/mc MILLENNIUM L Basophils % 0.2 % CERNER MILLENNIUM Basophils Abs 0.0 0.0 - 0.2 CERNER x10(3)/mc MILLENNIUM L Immature Gran % 0.30 % CERNER MILLENNIUM Comment: Immature granulocytes(IG's)percentage an d absolute count will include metamyelocytes, myelocytes, and promyelo cytes. Blood smears from CBCs yielding IG's will be scanned manually for concor dance. If this scan disagrees with the automated IG or if promyelocytes are not ed, a manual differential will be performed. Rosenda Gran Abs 0.03 0.00 - 0.05 x10(3)/mcL CER NER MILLENNIUM Specimen Anatomical Collection Method Collection Time Receive d Time (Source) Location / / Volume Laterality Blood specimen 07/23/2015 8:50 PM 016 8:56 (specimen) EST PM EST Resulting Agency Comment Spec In Lab Elicia Caal MD HEMATOLOGY ORDERABLES Performing Organization Address City/[facility]/ZIP [place] [address] CERNER MILLENNIUM (ABNORMAL) Hemogram (07/23/2015 8:50 PM EST) P athologist Signature WBC 8.8 4.0 - 10.0 CERNER x10(3)/mcL MILLENNIUM RBC 3.06 (L) 3.93 - CERNER 5.22 MILLENNIUM x10(6)/mcL Hemoglobin 9.2 (L) 11.2 - CERNER 15.7 gm/dL MILLENNIUM Hematocrit 27.0 (L) 34.0 - CERNER 45.0 % MILLENNIUM MCV 88.2 79.0 - CERNER 94.0 fL MILLENNIUM MCH 30.1 26.6 - CERNER 32.2 pg MILLENNIUM MCHC 34.1 32.0 - CERNER 36.5 gm/dL MILLENNIUM Platelets 216 145 - 370 CERNER x10(3)/mcL MILLENNIUM RDWSD 48.5 (H) 35.0 - CERNER 46.0 fL MILLENNIUM RDWCV 14.9 (H) 10.9 - CERNER 14.4 % MILLENNIUM MPV 11.5 9.0 - 12.0 CERNER fL MILLENNIUM Specimen Anatomical Collection Method Collection Time Receive d Time (Source) Location / / Volume Laterality Blood specimen 07/23/2015 8:50 PM 016 8:56 (specimen) EST PM EST Resulting Agency Comment Spec In Lab Elicia Caal MD HEMATOLOGY ORDERABLES Performing Organization Address City/State/ZIP [place] [address] CERNER MILLENNIUM Vancomycin, trough (07/23/2015 8:50 PM EST) P athologist Signature Vanc Trough 8.1 mg/L CERNER MILLENNIUM Comment: Therapeutic range for complicated infect ions such as bacteremia, endocarditis, osteomyelitis, meningitis, and hospital- acquired pneumonia caused by S. aureus: 15-20 mg/L Therapeutic range for other indications: 10-15 mg/L Toxic: >25mg/L Reference: Vancomycin Therapeutic Monitoring: Cesar acevedo and Recommendations from the ASHP, IDSA and SIDP Task Force. ??Am J Health- Syst Pharm. 2009; 66:82-98 Specimen Anatomical Collection Method Collection Time Receive d Time (Source) Location / / Volume Laterality Blood specimen 07/23/2015 8:50 PM 016 8:57 (specimen) EST PM EST Resulting Agency Comment Spec In Lab Elicia Caal MD CHEMISTRY ORDERABLES Performing Organization Address City/State/ZIP [place] [address] CERNER MILLENNIUM (ABNORMAL) Basic Metabolic Panel (non-fasting) (07/23/2015 8:50 PM EST) P athologist Signature Glucose Lvl 108 65 - 199 CERNER mg/dL MILLENNIUM Comment: Diabetes: >=200 mg/dL plus symp toms BUN 7 (L) 8 - 18 mg/dL CERNER MILLENNIUM Creatinine 0.35 (L) 0.70 - 1.20 mg/dL CERNER MILL ENNIUM Comment: Please note that the pediatric reference intervals supplied above were not validated at [facility]. Results from pediatri c patients should be interpreted in conjunction to the patient's age, height and muscle mass. Sodium 135 135 - 145 mmol/L CERNER KINGSLEY NIUM Potassium 3.5 3.5 - 5.0 mmol/L CERNER KINGSLEY NIUM Comment: Please note: ??Patients with WBC >100,00 0 may have falsely elevated Potassium levels. ??For accurate Potassium quantif ication in these patients send serum separator tube (gold top) for subsequent determinations. ??Contact the Clinical Chemistry Laboratory if there are any qu estions. Chloride 97 (L) 98 - 107 mmol/L CERNER MILLENN IUM CO2 24 22 - 31 mmol/L CERNER MILLENNI UM Anion Gap 14 5 - 15 mmol/L CERNER MILLENNIU M Calcium 8.2 (L) 8.5 - 10.5 mg/dL CERNER KINGSLEY NIUM Estimated GFR >60 >=60 CERNER MILLENNIU M Comment: This estimated [...] the following links into your internet browser. [email or web address] Specimen Anatomical Collection Method Collection Time Receive d Time (Source) Location / / Volume Laterality Blood specimen 07/23/2015 8:50 PM 016 8:57 (specimen) EST PM EST Resulting Agency Comment Spec In Lab Elicia Caal MD CHEMISTRY ORDERABLES Performing Organization Address City/State/ZIP [place] [address] [facility] documented in this encounter Visit Diagnoses Diagnosis Infected prosthetic vascular graft, init ial encounter Critical lower limb ischemia Unspecified circulatory system disorder 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 documented in this encounter Admitting Diagnoses Diagnosis Critical lower limb ischemia Unspecified circulatory system disorder documented in this encounter Administered Medications Inactive Administered Medications - up to 3 most recent administrations Medication Order MAR Action Action Date Dose Rate Site acetaminophen (TYLENOL) tablet 500 Given 08/01/2015 3:46 PM EST 500 mg mg 500 mg, Oral, EVERY 4 HOURS PRN, Starting on 07/23/15 at 2019, Until 08/03/15 at 1634, Pain, Fever, Maximum dose of acetaminophen is 4000 mg from all sources in 24 hours., Routine Given 07/31/2015 7:16 PM EST 500 mg Given 07/31/2015 2:59 PM EST 500 mg aspirin EC tablet 81 mg Given 08/03/2015 9:21 AM EST 81 mg 81 mg, Oral, DAILY, First dose on Sat07/24/15 at 0900, Until Discontinued, Routine Given 08/02/2015 8:38 AM EST 81 mg Given 08/01/2015 8:37 AM EST 81 mg DAPTOmycin (CUBICIN) 355 mg in Given 08/02/2015 4:20 PM EST 355 mg 114.2 mL/hr sodium chloride 0.9% 57.1 mL 355 mg (rounded from 354 mg = 6 mg/kg/dose ? 59 kg), Intravenous, EVERY 24 HOURS, First dose (after last modification) on 08/02/15 at 1530, Until Discontinued, Administer over 30 Minutes, Indication for (Active or Suspected): Skin/Skin Structure, Restricted Antibiotic: Please indicate the most appropriate choice: ID Approval by Nolberto Starkey DAPTOmycin (CUBICIN) 415 mg in Given 07/31/2015 6:32 PM EST 415 mg 116.6 mL/hr sodium chloride 0.9% 58.3 mL 415 mg (rounded from 413 mg = 7 mg/kg/dose ? 59 kg), Intravenous, EVERY 48 HOURS, First dose on Sat07/27/15 at 1800, Until Discontinued, Administer over 30 Minutes, Indication for (Active or Suspected): Skin/Skin Structure, Restricted Antibiotic: Please indicate the most appropriate choice: ID Approval by Nolberto Starkey Given 07/29/2015 6:03 PM EST 415 mg 116.6 mL/hr gabapentin (NEURONTIN) capsule 300 mg Given 07/30/2015 8:14 AM EST 300 mg 300 mg, Oral, 3 TIMES DAILY, First dose on 07/23/15 at 2300, Until Discontinued, Routine Given 07/29/2015 8:44 PM EST 300 mg Given 07/29/2015 2:42 PM EST 300 mg gabapentin (NEURONTIN) capsule 600 mg Given 08/03/2015 9:21 AM EST 600 mg 600 mg, Oral, 2 TIMES DAILY, First dose (after last reorder) on Sat07/30/15 at 1700, Until Discontinued, Routine Given 08/02/2015 8:15 PM EST 600 mg Given 08/02/2015 8:37 AM EST 600 mg heparin (porcine) subcutaneous injection Given 016 9:21 AM EST 5,000 Units 5,000 Units 5,000 Units, Subcutaneous, EVERY 12 HOURS SCHEDULED (2 times per day), First dose on Sat07/30/15 at 1345, Until Discontinued, Routine Given 08/02/2015 8:20 PM EST 5,000 Units Given 08/02/2015 8:39 AM EST 5,000 Units hydrALAZINE (APRESOLINE) injection 10 mg Given 07/26/2015 11:08 PM EST 10 mg 10 mg, Intravenous, EVERY 1 HOUR PRN, Starting on 07/23/15 at 2019, Until Sat08/03/15 at 1634, High Blood Pressure, for blood pressure > 150 for maximum of 2 doses then nhan MCKEON, Use if 2 doses of labetalol ineffective in achieving goal., Routine HYDROmorphone (DILAUDID) 1 mg/mL New Syringe/Cartridge 07/27/2015 6:0 7 PM EST HYDRAMATIC SPECIALIST 30 mL Intravenous, HYDRAMATIC SPECIALIST ONLY, Starting on 07/24/15 at 1530, Until 07/27/15 at 2201, Recovery (Recovery-Hospital Unit) New Syringe/Cartridge 07/24/2015 3:50 PM EST HYDROmorphone (DILAUDID) 1 mg/mL HYDRAMATIC SPECIALIST 30 mL Restarted 07/29/2015 2:34 PM EST Intravenous, HYDRAMATIC SPECIALIST ONLY, Starting on 07/27/15 at 2230, Until 07/31/15 at 0816, Recovery (Recovery-Hospital Unit) New Syringe/Cartridge 07/27/2015 10:30 PM EST HYDROmorphone (DILAUDID) syringe 0.2-0.4 mg Given 07/24/2015 7:10 PM EST 0.4 mg 0.2-0.4 mg, Intravenous, EVERY 5 MIN PRN, Pain, Starting on 07/24/15 at 1457, Until 07/24/15 at 1924, For moderate pain (4-6) give: 0.2 mg every 5 minute prn For severe pain (7-10) give: 0.4 mg every 5 minutes prn Maximum dose: 4 mg per hour Hold for respiratory rate less than 10 per minute., PACU Recovery Given 07/24/2015 5:30 PM EST 0.4 mg Given 07/24/2015 4:57 PM EST 0.4 mg insulin aspart (NovoLOG) VIAL injection 1-4 Given 07/09 4:38 PM EST 3 Units Units 1-4 Units, Subcutaneous, 3 TIMES DAILY BEFORE MEALS, First dose on 07/23/15 at 2200, Until Discontinued, CORRECTION BOLUS Sensitive to insulin [...] no insulin and resume prior schedule. Given 07/31/2015 12:49 PM EST 4 Units Given 07/31/2015 8:12 AM EST 3 Units insulin aspart (NovoLOG) VIAL injection 1-4 Given 07/09 11:24 AM EST 2 Units Units 1-4 Units, Subcutaneous, EVERY 4 HOURS, First dose (after last modification) on Sat08/01/15 at 0615, Until Discontinued, CORRECTION BOLUS Sensitive to insulin [...] no insulin and resume prior schedule. Given 08/03/2015 8:10 AM EST 2 Units Given 08/03/2015 3:38 AM EST 1 Units labetalol (NORMODYNE,TRANDATE) injection 10 mg Given 07/30/2015 4:26 PM EST 10 mg 10 mg, Intravenous, EVERY 1 HOUR PRN, Starting on 07/23/15 at 2019, Until Sat08/03/15 at 1634, High Blood Pressure, for SBP > 150, hold for HR < 60 for maximum of 2 doses, then nhan ARTEAGA, May repeat 10 mg in 15 minutes once if SBP goal not achieved, Routine Given 07/29/2015 12:06 AM EST 10 mg Given 07/28/2015 8:35 PM EST 10 mg lactated ringers 1,000 mL IV bolus Given 07/25/2015 12:19 PM EST Intravenous, ONCE, 1 dose, On Sat07/25/15 at 1230 lisinopril (PRINIVIL;ZESTRIL) tablet 5 m g Given 07/28/2015 8:21 AM EST 5 mg 5 mg, Oral, DAILY, First dose on 07/24/15 at 0900, Until Discontinued, Routine Given 07/27/2015 8:27 AM EST 5 mg Given 07/26/2015 8:13 AM EST 5 mg meTOPROLOL succinate (TOPROL-XL) XL tablet 25 Given 9:21 AM EST 25 mg mg 25 mg, Oral, DAILY, First dose on 07/24/15 at 0900, Until Discontinued, DO NOT CRUSH OR OPEN Hold for HR<60 or SBP<90, Routine Given 08/02/2015 8:37 AM EST 25 mg Given 08/01/2015 8:37 AM EST 25 mg ondansetron (ZOFRAN) tablet 4 mg Given 08/02/2015 8:15 PM EST 4 mg 4 mg, Oral, EVERY 8 HOURS PRN, Starting on 07/23/15 at 2019, Until 08/03/15 at 1634, Nausea, Vomiting, If multiple antiemetics are ordered, use ondansetron first. PO Preferred. If patient unable to take PO, may give IV if ordered. May repeat times one in 45 minutes if ineffective., Routine Given 08/02/2015 5:29 AM EST 4 mg Given 08/01/2015 10:38 PM EST 4 mg oxyCODONE (ROXICODONE) immediate release Given 07/31/2015 7:15 P M EST 10 mg tablet 10 mg 10 mg, Oral, EVERY 4 HOURS PRN, Starting on 07/31/15 at 0815, Until 08/03/15 at 1634, Pain, severe pain (7-10), May give an additional 5 mg in 30 minutes once if pain not relieved., Routine oxyCODONE (ROXICODONE) immediate release tablet Given 07/31/2015 6:54 AM EST 5 mg 5 mg 5 mg, Oral, EVERY 6 HOURS PRN, Starting on 07/23/15 at 2019, Until 07/31/15 at 0816, Pain, Routine Given 07/30/2015 6:42 PM EST 5 mg Given 07/30/2015 2:59 AM EST 5 mg oxyCODONE (ROXICODONE) immediate release tablet Given 08/02/2015 8:16 PM EST 5 mg 5 mg 5 mg, Oral, EVERY 4 HOURS PRN, Starting on 07/31/15 at 0815, Until 08/03/15 at 1634, Pain, mild to moderate pain (1-6), May give an additional 5 mg in 30 minutes once if pain not relieved., Routine Given 07/31/2015 2:59 PM EST 5 mg Given 07/31/2015 12:17 PM EST 5 mg piperacillin-tazobactam (ZOSYN) Given 07/29/2015 6:26 AM EST 3.3 75 g 12.5 mL/hr 3.375 g in dextrose 5% 50 mL 3.375 g, Intravenous, EVERY 8 HOURS SCHEDULED, First dose on Sat07/23/15 at 2200, Until Discontinued, Administer over 4 Hours, Indication for (Active or Suspected): Skin/Skin Structure Given 07/28/2015 10:42 PM EST 3.375 g 12.5 mL/hr Given 07/28/2015 1:42 PM EST 3.375 g 12.5 mL/hr polyethylene glycol (MIRALAX) packet 17 g Given 07/26/2015 5:10 PM EST 17 g 17 g, Oral, DAILY, First dose on Sat07/26/15 at 1530, Until Discontinued, Routine polyethylene glycol (MIRALAX) packet 17 g Given 08/02/2015 8:38 AM EST 17 g 17 g, Oral, 2 TIMES DAILY, First dose (after last modification) on Sat07/28/15 at 0900, Until Discontinued, Routine Given 07/30/2015 8:14 AM EST 17 g Given 07/29/2015 8:45 PM EST 17 g potassium chloride (K-DUR/KLOR-CON) extended Given 6:41 AM EST 40 mEq release tablet 40 mEq 40 mEq, Oral, ONCE, 1 dose, On Sat08/01/15 at 0545, 20 mEq tablet may be dissolved in water for administration, Routine senna-docusate (PERICOLACE) 8.6-50 mg per Given 07/30/2015 8 :14 AM EST 1 tablet tablet 1 tablet 1 tablet, Oral, 2 TIMES DAILY, First dose on Sat07/26/15 at 2100, Until Discontinued, Routine Given 07/29/2015 8:45 PM EST 1 tablet Given 07/29/2015 8:23 AM EST 1 tablet sertraline (ZOLOFT) tablet 50 mg Given 08/03/2015 9:21 AM EST 50 mg 50 mg, Oral, DAILY, First dose on Sat07/24/15 at 0900, Until Discontinued, Routine Given 08/02/2015 8:37 AM EST 50 mg Given 08/01/2015 8:37 AM EST 50 mg simvastatin (ZOCOR) tablet 20 mg Given 08/02/2015 8:15 PM EST 20 mg 20 mg, Oral, NIGHTLY, First dose on Sat07/23/15 at 2200, Until Discontinued, Routine Given 08/01/2015 8:57 PM EST 20 mg Given 07/31/2015 8:21 PM EST 20 mg sodium chloride 0.9% infusion New Bag 07/24/2015 11:03 PM EST 1,000 mLs 100 mL/hr 1,000 mL, at 100 mL/hr, Intravenous, CONTINUOUS, Starting on 07/23/15 at 2045, Until Sat07/25/15 at 0727, Recovery (Recovery-Hospital Unit) New Bag 07/24/2015 3:49 PM EST 1,000 mLs 100 mL/hr New Bag 07/24/2015 8:16 AM EST 1,000 mLs 100 mL/hr sodium chloride 0.9% Rate/Dose Verify 07/26/2015 4:00 PM EST 60 mL/hr 60 mL/hr infusion 60 mL/hr, Intravenous, CONTINUOUS, Starting on Sat07/25/15 at 0745, Until Sat07/26/15 at 1931 Rate/Dose Verify 07/26/2015 12:00 PM EST 60 mL/hr 60 mL/hr Rate/Dose Verify 07/26/2015 8:00 AM EST 60 mL/hr 60 mL/hr sodium chloride 0.9% infusion New Bag 07/27/2015 5:45 PM EST 50 mL/hr 50 mL/hr 50 mL/hr, Intravenous, CONTINUOUS, Starting on Sat07/27/15 at 0000, Until Sat07/27/15 at 1807 New Bag 07/27/2015 12:17 AM EST 50 mL/hr 50 mL/hr vancomycin 1.5 g in sodium chloride 0.9% Given 07/24/2015 11 :00 PM EST 1,500 mg 250 mL 1,500 mg, Intravenous, EVERY 12 HOURS, First dose on 07/23/15 at 2300, Until Discontinued, Administer over 90 Minutes, Maximum infusion rate is 1 gram/hour. If flushing of the face, neck, upper body, arms, and/or back occurs decrease infusion rate by 50% to reduce the severity of symptoms. This medication may have an associated drug lab level. Please see MAR for scheduled level., Indication for (Active or Suspected): Skin/Skin Structure Given 07/23/2015 11:53 PM EST 1,500 mg documented in this encounter Active and Recently Administered Medications Times are shown in EST. Scheduled Medication Order 08/01/2015 08/02/2015 08/03/2015 aspirin EC tablet 81 mg (CANCELED) 0837 (Given - Provider: Angela Childers RN) 0838 (Given - Provider: Bree Hermosillo, JOSEPH) 0921 (Given - Provider: Karen Alfonso, JOSEPH) 81 mg, Oral, DAILY, First dose on Sat at 0900, Until Discontinued, Routine DAPTOmycin (CUBICIN) 355 mg in sodium chloride 0.9% 57.1 mL (CANCELED) 1620 (Given - Provider: Bree Hermosillo, JOSEPH) 355 mg (rounded from 354 mg = 6 mg/kg/do se ? 59 kg), Intravenous, EVERY 24 HOURS, First dose on Sat08/02/15 at 1530, Until Discontinued, for 30 Minutes, Indication for (Active or Suspected): Skin/Skin Structure, Restricted Antibiotic: Please indicate the most appropriate choice: ID Approval by Nolberto Starkey gabapentin (NEURONTIN) capsule 600 mg 0837 (Given - Pr ovider: Ashleigh Childers RN)2056 (Given - Provider: Calvin Oropeza RN) 0837 (Given - Provider: Bree Hermosillo RN)2014 (Given - Provider: Vijaya Sweeney, JOSEPH) 0921 (Given - Provider: Karen Alfonso, JOSEPH) 600 mg, Oral, 2 TIMES DAILY, First dose on Sat07/30/15 at 1700, Until Discontinued, Routine heparin (porcine) subcutaneous injection 5,000 Units ( CANCELED) 0837 (Given - Provider: Ashleigh Childers RN)2057 (Given - Provider: Calvin Oropeza RN) 0839 (Given - Provider: Bree Hermosillo RN)2019 (Given - Provider: Vijaya Sweeney, JOSEPH) 0921 (Given - Provider: Karen nichole RN) 5,000 Units, Subcutaneous, EVERY 12 HOUR S SCHEDULED (2 times per day), First dose on Sat07/30/15 at 1345, Until Discontinued, Routine insulin aspart (NovoLOG) VIAL injection 1-4 Units 0818 (Given - Provider: Ashleigh Childers RN)1253 (Given - Provider: Ashleigh Childers RN)1650 (Given - Provider: Ashleigh Childers RN)1999 (Not Given - Provider: Calvin Oropeza RN - Reason: Order parameters not met - Comment: Gave no 0011 (Given - Provider: Calvin Oropeza RN)0333 (Given - Provider: Calvin Oropeza RN)0837 (Given - Provider: Bree Hermosillo, RN)1205 (Given - Provider: Bree Hermosillo, RN)1640 (Given - Provider: Bree Hermosillo, RN) 0051 (Given - Provider: Vijaya mckeon RN)0338 (Given - Provider: Vijaya Sweeney RN)0810 (Given - Provider: Karen Alfonso, JOSEPH)1124 (Given - Provider: Karen Alfonso RN) 1-4 Units, Subcutaneous, EVERY 4 HOURS, First dose on Sat08/01/15 at 0615, Until Discontinued, CORRECTION BOLUS Sensitive to insulin lean patient or total daily dose of all insulin needed to achieve insulin and resumed prior schedule, as per order.....) 2016 (Given - Provider: Vijaya Sweeney RN) glycemic control less than 30 units BG [...] no insulin and resume prior schedule., Routine meTOPROLOL succinate (TOPROL-XL) XL tablet 25 mg (CANC ELED) 0837 (Given - Provider: Ashleigh Childers RN) 0837 (Given - Provider: Bree Hermosillo, JOSEPH) 0921 (Given - Provider: Karen Alfonso RN) 25 mg, Oral, DAILY, First dose on Sat at 0900, Until Discontinued, DO NOT CRUSH OR OPEN Hold for HR<60 or SBP<90, Routine polyethylene glycol (MIRALAX) packet 17 g (CANCELED) 0 836 (Not Given - Provider: Ashleigh Childers RN - Reason: See comment - Comment: Pt previously having loose stools yesterday.)2100 (Not Given - Provider: Calvin Oropeza RN - Reason: Contraindicated - Comment: Loose stools) 0838 (Given - Provider: Bree Hermosillo RN)2100 (Not Given - Provider: Vijaya Sweeney RN - Reason: Patient/family refused) 0922 (Not Given - Provider: Karen Alfonso RN - Reason: Order parameters not met) 17 g, Oral, 2 TIMES DAILY, First dose on Yadira 07/28/15 at 0900, Until Discontinued, Routine potassium chloride (K-DUR/KLOR-CON) extended release t ablet 40 mEq (COMPLETED) 0641 (Given - Provider: Vijaya Sweeney, JOSEPH) 40 mEq, Oral, ONCE, 1 dose, 08/01/15 at 0545, 20 mEq tablet may be dissolved in water for administration, Routine sertraline (ZOLOFT) tablet 50 mg (CANCELED) 0837 (Give n - Provider: Ashleigh Childers RN) 0837 (Given - Provider: Bree Hermosillo RN) 0921 (Gi aide - Provider: Karen Alfonso RN) 50 mg, Oral, DAILY, First dose on Sun at 0900, Until Discontinued, Routine simvastatin (ZOCOR) tablet 20 mg (CANCELED) 2056 (Give n - Provider: Calvin Oropeza RN) 2014 (Given - Provider: Vijaya Sweeney, JOSEPH) 20 mg, Oral, NIGHTLY, First dose on 07/23/15 at 2200, Until Discontinued, Routine PRN Medication Order 08/01/2015 08/02/2015 08/03/2015 acetaminophen (TYLENOL) tablet 500 mg (CANCELED) 1546 (Given - Provider: Ashleigh Childers, JOSEPH) 500 mg, Oral, EVERY 4 HOURS PRN, Startin g 07/23/15 at 2019, Until 08/03/15 at 1634, Pain, Fever, Maximum dose of acetaminophen is 4000 mg from all sources in 24 hours., Routine ondansetron (ZOFRAN) tablet 4 mg (CANCELED) 2237 (Give n - Provider: Calvin Oropeza RN) 528 (Given - Provider: Calvin Oropeza RN)2014 (Given - Provider: Vijaya Sweeney RN) 4 mg, Oral, EVERY 8 HOURS PRN, Starting 07/23/15 at 2019, Until 08/03/15 at 1634, Nausea, Vomiting, If multiple antiemetics are ordered, use ondansetron first. PO Preferred. If patient unable to take PO, may give IV if ordered. May repeat times one in 45 minutes if ineffective., Routine oxyCODONE (ROXICODONE) immediate release tablet 5 mg 2015 (Given - Provider: Vijaya Sweeney RN) 5 mg, Oral, EVERY 4 HOURS PRN, Starting 07/31/15 at 0815, Until 08/03/15 at 1634, Pain, mild to moderate pain (1-6), May give an additional 5 mg in 30 minutes once if pain not relieved., Routine documented in this encounter Care Teams Electrophysiology Scientist Relationship Specialty Start Date End Date Gordy Moon MD PCP - General Family Medicine 05/19/[address] [place] [address] documented as of this encounter
--- OUTSIDE RECORDS SUMMARY | 2022-01-25 00:56 | XMS_ITS | Encounter Summary ---
:1950 [place] [address] Care Team Providers Name Role Phone Gordy Gregg MD Primary Care Provider [phone] Reason for Visit Auth/Cert - Closed Specialty Diagnoses / Procedures Referred By Contact Refer red To Contact Diagnoses SFA to peroneal bypass occluded graft Procedures PRO VEIN IN SITU BYPASS GRAFT, FEM-TIB PRO VEIN BYPASS GRAFT, FEM-TIBIAL @BYPASS GRAFT, FEM.-ANT. TIB, POST. TIB, PERONEAL, DP W\ VEIN CONDUIT ([place] [address]) Referral ID Status Reason Start Date Expiration Date Visits Requ ested Visits Authorized [id number] Closed 1 1 Encounter Details Date Type Department Care Team Description 07/29/2015 Anesthesia Event Main Operating Room Dontrell Bright MD [facility] [place] [address] [facility] [place] [address] [facility] [place] [address] Anesthesia Record Procedure Summary Procedure Name Responsible Anesthesia Start Anesthesia Stop Time Anesthesiologist Time DRESSING CHANGE Dontrell Swain MD 07/29/15 1146 07/29/15 14 16 (FOR OTHER THAN ESCALANTE) UNDER ANES., LOWER EXTREMITY (WRVU 0.86) (Left Groin) Events Date Time Event Comment 07/29/2015 1043 1146 AN Verify 1146 Start 1149 An Start Data 1200 An Induction 1202 An Intubation 1207 Anesthesia Ready 1220 Procedure Start 1352 Procedure Stop 1406 Extubation/LMA Out 1406 an stop data 1406 Recovery or ICU Handoff Patient care was transferred to the destination unit staff after review of the patient's medica l history, current anesthetic/surgi ray status and plan, according to the Provider Handoff Checklist. 1416 Stop LMA removed when patient able to open eyes to command. +ETCO2, clear airway, FM oxygen applied. VSS. Timmy aguilar transferred to PACU. VSS. Report to R N. Name Total fentaNYL 100 mcg ePHEDrine 5 mg/mL multi-dose injection 35 mg Ondansetron 4 mg Piperacillin-Tazobactam 3.375 g Atropine 0.2 mg HYDROmorphone 1.2 mg Lactated Ringers 600 mL Agents Name O2 Air N2O Sevoflurane (et) Blood No blood administrations on file. Lines, Drains, and Airways Type Details Placement Removal Incision 07/24/15; leg 07/24/15 0000 by (Amputation of left Elicia Perez, foot. ) LAUNCHMAN Wound 07/27/15; groin 07/27/15 0000 by Suzanne Elam RN Lumbar/CSF Drain 07/27/15; Left; groin; 07/27/15 0000 by vac dsg lt groin Lucero Glass, benefit specialist 07/28/15; 1103; sacral 07/28/15 1103 by spine; fissure Shannan Lombardi RN Incision 03/18/15; leg; vertical 03/18/15 0000 by Elam, 0 08/11/15 0003 by (Extending from left JOSEPH Burch Kristy L, groin to left medial RN calf.); 08/11/15; 0003 Incision 03/18/15; calf; 03/18/15 0000 by Elam, 08/11/15 0003 by vertical; 08/11/15; 0003 JOSEPH Burch Kristy L, RN Incision 05/26/15; groin; 05/26/15 0000 by Otis, 08/11/15 0003 by vertical, other (see JOSEPH Feliciano Kristy L, comments); 08/11/15; RN 0003 Incision 05/26/15; leg; vertical; 05/26/15 0000 by Otis, 08/11/15 0003 by (distal leg); 08/11/15; JOSEPH Feliciano Kristy L, 0003 RN Urethral Catheter 07/21/15; (Placed at 07/21/15 0000 by 07/31/15 1030 by [facility]); indwelling Joseph, Estrellita L, Joseph , Estrellita L, single lumen catheter; RN RN present on admission to this facility; 10; 07/31/15; 1030 PIV 07/23/15; 223; cephalic 07/23/15 2237 by Gerardo, 08/03/15 1357 by vein right (lateral side JOSEPH Campos Jillian Y, of arm); [id number]-bufdbt ADVICE LINE RN catheter system; 18 gauge, 1 in length; Denzel Carrillo RN VAS; intradermal injection, appears comfortable, tolerated well; 0; 08/03/15; 1357 Lumbar/CSF Drain 07/24/15; Left; medial; 07/24/15 0000 by 1626 by calf; Carson (07/11 Gladis Childress, JOSEPH Hawley, Alex Lloyd, inch.); removed in OR; RN 07/29/15; 1626 PIV 07/27/15; 2008; cephalic 07/27/152008 by 1357 by vein right (lateral side Davidson Garcia, Sarah Duncan, of arm); [id number]-nihysw ADVICE LINE RN catheter system; 22 gauge, 1 in length; Emigdio Garcia; distraction, intradermal injection, appears comfortable, tolerated well; 08/03/15; 1357 Supraglottic Mask Ventilation: Easy 07/29/15 1202 by 07/29/15 1406 by (1); LMA Type: iGel; LMA Dontrell Swain MD Ma ncini, Amy L, BONDING SUPERVISOR Size: 4; Inserted by: Radha documented in this encounter Social History Tobacco Use Types Packs/Day Years Used Date Never Smoker Smokeless Tobacco: Never Used Alcohol Use Standard Drinks/Week Comments No 0 (1 standard drink = 0.6 oz pure alcoho l) Sex Assigned at Date Recorded Not on file documented as of this encounter OR Notes Anesthesia Postprocedure Evaluation - Dontrell Swain MD - 08/02/2015 3:54 PM EST [facility] Department of Anesthesiology Post-procedure Note Patient: Carrie Hurst Procedure Summary Date Anesthesia Start Anesthesia Stop Room / Location 07/29/15 1146 1416 [facility] OR 14 / [facility] MAIN OR Procedure Diagnosis Surgeon Responsible Provider DRESSING CHANGE (FOR OTHER THAN ESCALANTE) UNDER ANES., LOWER EXTREMITY (Left Groin); AMPUTATION, ABOVE-KNEE, SECONDARY CLOSURE OR SCAR REVISION (Left Leg Upper) (left groin wound vac) Elicia Caal MD Quill, Timothy J, MD Last (1hr) Vitals: BP Temp Pulse Resp SpO2 Patient Location: PACU/[facility] Level of Consciousness: Awake and Alert Pain Management: Satisfactory Analgesia PONV: None Cardiovascular Status: At Baseline and Hemodynamically Stable Respiratory Status: At Baseline and Room Air Postoperative Fluid Status: Intravascular EUvolemia Possible Anesthetic Complications: NONE apparent at time of evaluation Final Primary Anesthesia Type: General (The anesthetic type performed was the same as planned.) Comments: DONTRELL SWAIN MD Anesthesia Preprocedure Evaluation - Dontrell Swain MD - 07/29/2015 10:38 AM EST Pre-Anesthesia Evaluation for: Carrie Hurst a 64 y.o. female. Procedure(s): DRESSING CHANGE (FOR OTHER THAN ESCALANTE) UNDER ANES., LOWER EXTREMITY Patient Active Problem List Diagnosis ??? Critical lower limb ischemia ??? HLD (hyperlipidemia) ??? Claudication ??? Non-healing ulcer of foot Previous wound to left foot between 4th & 5th toe, currently resolved, 03/2015 ??? DMII (diabetes mellitus, type 2) ??? Hypercholesterolemia ??? Hypertension ??? PAD (peripheral artery disease) 05/26/2015: Left femoral endarterectomy and LLE fem-PT arterial bypass Past Medical History Diagnosis Date ??? HTN (hypertension) ??? DM (diabetes mellitus) metformin ??? Hypercholesterolemia ??? PVD (peripheral vascular disease) ??? HLD (hyperlipidemia) 03/24/2015 Past Surgical History Procedure Laterality Date ??? Skin graft Left left 2nd metacarpal ??? Pro vein bypass graft, fem-tibial Left 03/18/2015 @BYPASS GRAFT, FEM.-ANT. TIB, POST. TIB, PERONEAL, DP W\ VEIN CONDUIT ([place] [address]) performed by Mariano Doyle MD at [facility] MAIN OR ??? Pro bypass graft othr, fem-tibial Left 05/26/2015 @BYPASS GRAFT, FEM-ANT TIBIAL, -POST TIBIAL, -PERONEAL, -DP W\ SYNTHETIC CONDUIT performed by Mairano Doyle MD at [facility] OR ??? Pro bypass graft vein patch/cuff, synthetic Left 05/26/2015 PLACEMENT VEIN PATCH OR CUFF AT DISTAL ANASTOMOSIS OF BYPASS GRAFT, SYNTHETIC CONDUIT , RODRIGUEZ-COLLAR, RACHELLE-PATCH, ADD-ON CODE, LOWER EXTREMITY performed by Mariano Doyle MD at [facility] OR ??? Pro thromboendartectmy iliofemoral Left 05/26/2015 @ENDARTERECTOMY, ILIOFEMORAL W OR W/O PATCH GRAFT performed by Mariano Doyle MD at [facility] OR ??? Pro reoperation, bypass graft Left 05/26/2015 @RE-OP FOR RE-DO LOWER EXTREMITY BYPASS GRAFT, >1 MONTH P\ ORIGINAL SURGERY, ADD-ON CODE performed by Mariano Doyle MD at [facility] OR ??? Pro amputation low leg, circular Left 07/24/2015 @AMPUTATION, BELOW-KNEE, OPEN, GUILLOTINE performed by Elicia Caal MD at [facility] MAIN OR ??? Pro exploration, femoral artery Left 07/24/2015 @EXPLORATION, W/WO LYSIS, FEMORAL ARTERY W\O SURGICAL REPAIR performed by Elicia Caal MD at [facility] OR ??? Pro negative pressure wound therapy, less than or equal to 50 sqcm Left 07/24/2015 DRESSING CHANGE (VAC ASSISTED) UP TO 50SQ.CM performed by Elicia Caal MD at [facility] OR ??? Pro rebl ves direct, low extrem Left 07/24/2015 REPAIR LOWER EXTREMITY BLOOD VESSEL, DIRECT, NO PATCH OR GRAFT performed by Elicia Caal MD at [facility] MAIN OR ??? Pro excision, infec graft, extremity Left 07/24/2015 EXCISION OF INFECTED GRAFT FROM LOWER EXTREMITY performed by Elicia Caal MD at [facility] MAIN OR ??? Pro muscle-skin flap, leg Left 07/27/2015 FLAP, MYOCUTANEOUS OR FASCIOCUTANEOUS, LOWER EXTREMITY performed by Elicia Caal MD at [facility] MAIN OR ? ? Pro debridement subcutaneous tissue 20 sqcm/< Left 07/27/2015 DEBRIDEMENT SKIN AND SUBCU, LOWER EXTREMITY performed by Elicia Caal MD at [facility] MAIN OR ??? Left 07/27/2015 MODIFIER WOUND VAC performed by Elicia Caal MD at [facility] MAIN OR History Substance Use Topics ??? Smoking status: Never Smoker ??? Smokeless tobacco: Never Used ??? Alcohol Use: No History Drug Use No Comment: marijuana (smoked for 8 years. quit 2004) No Known Allergies Medications: MAR and/or home medications have been reviewed. Physical Exam: Filed Vitals: 07/29/15 0800 BP: 137/69 Pulse: 68 Temp: 36.9 ??C (98.4 ??F) Resp: 14 Body mass index is 25.4 kg/(m^2). Height: 152.4 cm (5') Weight - Scale: 59 kg (130 lb 1.1 oz) Airway Assessment: Mallampati: II TM distance: >3 FB Neck ROM: full Cardiovascular Assessment: cardiovascular exam normal Pulmonary Assessment: pulmonary exam normal Dental Assessment: - normal exam Misc Assessment: Patient is wearing No contact(s). IV access: Peripheral line Anesthesia Plan: ASA 3 General, Pt for L AKA. Numerous medical issues as listed including DM, severe PVD, HTN. DNR status. Numerous previous procedures to LLE. Region - Other Informed Consent: Anesthetic plan and risks discussed with patient. Use of blood products discussed with patient whom. Plan discussed with BONDING SUPERVISOR. PAT Staff Note Pre-Anesthesia Evaluation for: Carrie Hurst a 64 y.o. female. Procedure(s): DRESSING CHANGE (FOR OTHER THAN ESCALANTE) UNDER ANES., LOWER EXTREMITY FLAP, MYOCUTANEOUS OR FASCIOCUTANEOUS, LOWER EXTREMITY Patient Active Problem List Diagnosis ??? Critical lower limb ischemia ??? HLD (hyperlipidemia) ??? Claudication ??? Non-healing ulcer of foot Previous wound to left foot between 4th & 5th toe, currently resolved, 03/2015 ??? DMII (diabetes mellitus, type 2) ??? Hypercholesterolemia ??? Hypertension ??? PAD (peripheral artery disease) 05/26/2015: Left femoral endarterectomy and LLE fem-PT arterial bypass Past Medical History Diagnosis Date ??? HTN (hypertension) ??? DM (diabetes mellitus) metformin ??? Hypercholesterolemia ??? PVD (peripheral vascular disease) ??? HLD (hyperlipidemia) 03/24/2015 Past Surgical History Procedure Laterality Date ??? Skin graft Left left 2nd metacarpal ??? Pro vein bypass graft, fem-tibial Left 03/18/2015 @BYPASS GRAFT, FEM.-ANT. TIB, POST. TIB, PERONEAL, DP W\ VEIN CONDUIT ([place] [address]) performed by Mariano Doyle MD at [facility] MAIN OR ??? Pro bypass graft othr, fem-tibial Left 05/26/2015 @BYPASS GRAFT, FEM-ANT TIBIAL, -POST TIBIAL, -PERONEAL, -DP W\ SYNTHETIC CONDUIT performed by Mariano Doyle MD at [facility] MAIN OR ??? Pro bypass graft vein patch/cuff, synthetic Left 05/26/2015 PLACEMENT VEIN PATCH OR CUFF AT DISTAL ANASTOMOSIS OF BYPASS GRAFT, SYNTHETIC CONDUIT , RODRIGUEZ-COLLAR, RACHELLE-PATCH, ADD-ON CODE, LOWER EXTREMITY performed by Mariaon Doyle MD at [facility] OR ??? Pro thromboendartectmy iliofemoral Left 05/26/2015 @ENDARTERECTOMY, ILIOFEMORAL W OR W/O PATCH GRAFT performed by Mariano Doyle MD at [facility] OR ??? Pro reoperation, bypass graft Left 05/26/2015 @RE-OP FOR RE-DO LOWER EXTREMITY BYPASS GRAFT, >1 MONTH P\ ORIGINAL SURGERY, ADD-ON CODE performed by Mariano Doyle MD at [facility] OR ??? Pro amputation low leg, circular Left 07/24/2015 @AMPUTATION, BELOW-KNEE, OPEN, GUILLOTINE performed by Elicia Caal MD at [facility] OR ??? Pro exploration, femoral artery Left 07/24/2015 @EXPLORATION, W/WO LYSIS, FEMORAL ARTERY W\O SURGICAL REPAIR performed by Elicia Caal MD at [facility] MAIN OR ??? Pro negative pressure wound therapy, less than or equal to 50 sqcm Left 07/24/2015 DRESSING CHANGE (VAC ASSISTED) UP TO 50SQ.CM performed by Elicia Caal MD at [facility] MAIN OR ??? Pro rebl ves direct, low extrem Left 07/24/2015 REPAIR LOWER EXTREMITY BLOOD VESSEL, DIRECT, NO PATCH OR GRAFT performed by Elicia Caal MD at [facility] MAIN OR ??? Pro excision, infec graft, extremity Left 07/24/2015 EXCISION OF INFECTED GRAFT FROM LOWER EXTREMITY performed by Elicia Caal MD at [facility] OR ??? Pro muscle-skin flap, leg Left 07/27/2015 FLAP, MYOCUTANEOUS OR FASCIOCUTANEOUS, LOWER EXTREMITY performed by Elicia Caal MD at [facility] MAIN OR ? ? Pro debridement subcutaneous tissue 20 sqcm/< Left 07/27/2015 DEBRIDEMENT SKIN AND SUBCU, LOWER EXTREMITY performed by Elicia Caal MD at [facility] MAIN OR ??? Left 07/27/2015 MODIFIER WOUND VAC performed by Elicia Caal MD at [facility] OR History Substance Use Topics ??? Smoking status: Never Smoker ??? Smokeless tobacco: Never Used ??? Alcohol Use: No History Drug Use No Comment: marijuana (smoked for 8 years. quit 2004) No Known Allergies Medications: MAR and/or home medications have been reviewed. Physical Exam: There were no vitals filed for this visit. There is no weight on file to calculate BMI. Airway Assessment: Mallampati: II TM distance: >3 FB Neck ROM: full Cardiovascular Assessment: cardiovascular exam normal Pulmonary Assessment: pulmonary exam normal Dental Assessment: - normal exam [facility] Assessment: Pre-Anesthesia Evaluation for: Carrie Hurst a 64 y.o. female. Procedure(s): DRESSING CHANGE (FOR OTHER THAN ESCALANTE) UNDER ANES., LOWER EXTREMITY FLAP, MYOCUTANEOUS OR FASCIOCUTANEOUS, LOWER EXTREMITY Patient Active Problem List Diagnosis ??? Critical lower limb ischemia ??? HLD (hyperlipidemia) ??? Claudication ??? Non-healing ulcer of foot Previous wound to left foot between 4th & 5th toe, currently resolved, 03/2015 ??? DMII (diabetes mellitus, type 2) ??? Hypercholesterolemia ??? Hypertension ??? PAD (peripheral artery disease) 05/26/2015: Left femoral endarterectomy and LLE fem-PT arterial bypass Past Medical History Diagnosis Date ??? HTN (hypertension) ??? DM (diabetes mellitus) metformin ??? Hypercholesterolemia ??? PVD (peripheral vascular disease) ??? HLD (hyperlipidemia) 03/24/2015 Past Surgical History Procedure Laterality Date ??? Skin graft Left left 2nd metacarpal ??? Pro vein bypass graft, fem-tibial Left 03/18/2015 @BYPASS GRAFT, FEM.-ANT. TIB, POST. TIB, PERONEAL, DP W\ VEIN CONDUIT ([place] [id number]) performed by Mariano Doyle MD at [facility] OR ??? Pro bypass graft othr, fem-tibial Left 05/26/2015 @BYPASS GRAFT, FEM-ANT TIBIAL, -POST TIBIAL, -PERONEAL, -DP W\ SYNTHETIC CONDUIT performed by Mariano Doyle MD at [facility] OR ??? Pro bypass graft vein patch/cuff, synthetic Left 05/26/2015 PLACEMENT VEIN PATCH OR CUFF AT DISTAL ANASTOMOSIS OF BYPASS GRAFT, SYNTHETIC CONDUIT , MICHAEL-COLLAR, RACHELLE-PATCH, ADD-ON CODE, LOWER EXTREMITY performed by Mariano Doyle MD at [facility] OR ??? Pro thromboendartectmy iliofemoral Left 05/26/2015 @ENDARTERECTOMY, ILIOFEMORAL W OR W/O PATCH GRAFT performed by Mariano Doyle MD at [facility] OR ??? Pro reoperation, bypass graft Left 05/26/2015 @RE-OP FOR RE-DO LOWER EXTREMITY BYPASS GRAFT, >1 MONTH P\ ORIGINAL SURGERY, ADD-ON CODE performed by Mariano Doyle MD at [facility] OR ??? Pro amputation low leg, circular Left 07/24/2015 @AMPUTATION, BELOW-KNEE, OPEN, GUILLOTINE performed by Elicia Caal MD at [facility] OR ??? Pro exploration, femoral artery Left 07/24/2015 @EXPLORATION, W/WO LYSIS, FEMORAL ARTERY W\O SURGICAL REPAIR performed by Elicia Caal MD at [facility] OR ??? Pro negative pressure wound therapy, less than or equal to 50 sqcm Left 07/24/2015 DRESSING CHANGE (VAC ASSISTED) UP TO 50SQ.CM performed by Elicia Caal MD at [facility] MAIN OR ??? Pro rebl ves direct, low extrem Left 07/24/2015 REPAIR LOWER EXTREMITY BLOOD VESSEL, DIRECT, NO PATCH OR GRAFT performed by Elicia Caal MD at [facility] MAIN OR ??? Pro excision, infec graft, extremity Left 07/24/2015 EXCISION OF INFECTED GRAFT FROM LOWER EXTREMITY performed by Elicia Caal MD at [facility] MAIN OR ??? Pro muscle-skin flap, leg Left 07/27/2015 FLAP, MYOCUTANEOUS OR FASCIOCUTANEOUS, LOWER EXTREMITY performed by Elicia Caal MD at [facility] MAIN OR ? ? Pro debridement subcutaneous tissue 20 sqcm/< Left 07/27/2015 DEBRIDEMENT SKIN AND SUBCU, LOWER EXTREMITY performed by Elicia Caal MD at [facility] MAIN OR ??? Left 07/27/2015 MODIFIER WOUND VAC performed by Elicia Caal MD at [facility] MAIN OR History Substance Use Topics ??? Smoking status: Never Smoker ??? Smokeless tobacco: Never Used ??? Alcohol Use: No History Drug Use No Comment: marijuana (smoked for 8 years. quit 2004) No Known Allergies Medications: MAR and/or home medications have been reviewed. Physical Exam: There were no vitals filed for this visit. There is no weight on file to calculate BMI. Airway Assessment: Mallampati: II TM distance: >3 FB Neck ROM: full Cardiovascular Assessment: cardiovascular exam normal Pulmonary Assessment: pulmonary exam normal Dental Assessment: - normal exam Misc Assessment: Anesthesia Plan: ASA 3 General, with a(n) intravenous induction This is a PRELIMINARY NOTE for procedure scheduled on 07/26/15. Pt has not been seen by an assigned anesthesia provider nor is the anesthetic plan listed below final. This is a 64 y.o. female with a history of PVD and faield bypass grafts needing BKA, here for the following Procedure(s): DRESSING CHANGE (FOR OTHER THAN ESCALANTE) UNDER ANES., LOWER EXTREMITY FLAP, MYOCUTANEOUS OR FASCIOCUTANEOUS, LOWER EXTREMITY 64 y/o woman with PMH significant for DM, HTN, hyperlipidemia and PVD. Now POD #2 from LLE BKA following multiple failed revascularization bypass grafts (03/2015, 05/2015) and development of wet gangrene. Placement of wound vac in groin. To OR today for groin flap construction, possible BKA revision and wound vac change. No interval change in her health since previous OR trip. LABS: Lab Results Component Value Date HGB 9.2* 07/26/2015 PLATELET 347 07/26/2015 INR 1.5* 05/29/2015 NA 140 07/26/2015 K 3.8 07/26/2015 CREATININE 1.45* 07/26/2015 TYPE AND SCREEN: Lab Results Component Value Date ABORH A Neg 07/23/2015 ALLERGIES: No Known Allergies NPO STATUS: Reviewed and appropriate ANESTHETIC HISTORY: No prior anesthetic complications. Easy mask with grade 1 view in the past. ANESTHETIC PLAN: The anesthetic plan will be deferred to the primary anesthesia team. GA with LMA/ETT Standard ASA monitoring Adequate IV access CONSENT: The patient was informed of the risks, benefits and alternatives of anesthesia. These risks included, but were not limited to, post-operative nausea and/or vomiting, pain, sore throat, dental/lip trauma, and other rare but serious complications such as major organ damage, awareness, severe allergic reactions, position-related nerve injuries, and need blood transfusions. All questions sought and answered. Serial consent was signed and placed in chart. KRISHNA AUSTIN MD 07/26/2015 Region - Other Informed Consent: PAT Staff Note Patient is wearing No contact(s). IV access: Peripheral line Other exam findings: Dobut stress echo (03/16/15): SUMMARY: ??1. BASELINE: The left ventricle is probably normal in size. There is normal global left ventricular systolic function. The visually estimated left ventricular ejection fraction is 65%. The?? basal inferoseptal wall segment is akinetic (score 3). The?? basal inferior wall segment is hypokinetic (score 2). Right ventricular chamber size, wall thickness, and systolic function are within normal limits.The estimated pulmonary artery systolic pressure is 25 [...] apical lateral wall (with technically difficult imaging). Anesthesia Plan: ASA 3 General, with a(n) intravenous induction This is a 64 y.o. female with a history of PVD and failed bypass grafts needing BKA, here for the following Procedure(s): DRESSING CHANGE (FOR OTHER THAN ESCALANTE) UNDER ANES., LOWER EXTREMITY FLAP, MYOCUTANEOUS OR FASCIOCUTANEOUS, LOWER EXTREMITY 64 y/o woman with PMH significant for CAD, DM, HTN, hyperlipidemia and PVD s/p LLE BKA, wound vac placement following multiple failed revascularization bypass grafts (03/2015, 05/2015) and development of wet gangrene, scheduled for groin flap construction, possible BKA revision and wound vac change. No interval change in her health since previous OR trip. Last wbc, hgb, hct plt 07/27/15 0512 WBC 13.7* HGB 8.8* HCT 27.0* Last 3 Lytes 07/27/15 07/26/15 07/26/15 0512 1615 0140 NA 142 141 140 K 4.1 3.7 3.8 CL 104 103 103 CO2 21* 20* 23 BUN 20* 17 17 CREATININE 1.68* 1.67* 1.45* TYPE AND SCREEN: Lab Results Component Value Date ABORH A Neg 07/23/2015 ALLERGIES: No Known Allergies NPO STATUS: Reviewed and appropriate ANESTHETIC HISTORY: No prior anesthetic complications. Easy mask with grade 1 view in the past. ANESTHETIC PLAN: The anesthetic plan will be deferred to the primary anesthesia team. GA with LMA/ETT Standard ASA monitoring Adequate IV access CONSENT: The patient was informed of the risks, benefits and alternatives of anesthesia. These risks included, but were not limited to, post-operative nausea and/or vomiting, pain, sore throat, dental/lip trauma, and other rare but serious complications such as major organ damage, awareness, severe allergic reactions, position-related nerve injuries, and need blood transfusions. All questions sought and answered. Serial consent was signed and placed in chart.\ Code: DNR 07/26/2015 Attending addendum: Hx reviewed, pt seen/examined. As above. Pt received metoprolol this am. Has been hemodyn stable. PANDA w reduced renal clearance; progression of Cr elevation seems to have reached plateau. Pt has been on vanco, pip/tazo. Vanco held and last trough 18.6 07/26/15 at 2200hrs. Presently being held with plan to begin daptomycin once vanco trough<15, per vasc surg notes. Pt has been onpip/tazo, 3.375mg q8hrs, last does given at 0530hrs. Previously proven airway w iGel #3 as well as grade I view w mac 3. Plan GA, use exisiting a-line, adequate IV access. Risks/benefits discussed withpatient including, but not limited to, dental/airway/lip injury, vascular injury, nerve injury, throm bosis, limb ischemia, adverse drug reactions, among others. All questions answered to her satisfaction. Region - Other Informed Consent: Anesthetic plan and risks discussed with patient. Use of blood products discussed with patient whom consented to blood products. Plan discussed with resident and attending. PAT Staff Note documented in this encounter Plan of Treatment Not on filedocumented as of this encounter Visit Diagnoses Not on filedocumented in this encounter Administered Medications Inactive Administered Medications - up to 3 most recent administrations Medication Order MAR Action Action Date Dose Rate Site atropine injection Given 07/29/2015 12:05 PM EST 0.2 mg PRN, Starting on Sat07/29/15 at 1205, Until Sat07/29/15 at 1416, Anesthesia Intra-op, Routine ePHEDrine 5 mg/mL multi-dose injection Given 07/29/2015 1:40 PM EST 5 mg PRN, Starting on Sat07/29/15 at 1208, Until Sat07/29/15 at 1416, Anesthesia Intra-op, Routine Given 07/29/2015 1:28 PM EST 10 mg Given 07/29/2015 1:18 PM EST 10 mg fentaNYL 50 mcg/mL multi-dose injection Given 07/29/2015 12:20 PM EST 75 mcg PRN, Starting on Sat07/29/15 at 1212, Until Sat07/29/15 at 1416, Pain, Anesthesia Intra-op, Routine Given 07/29/2015 12:12 PM EST 25 mcg HYDROmorphone (DILAUDID) injection Given 07/29/2015 1:10 PM EST 0.4 mg PRN, Starting on Sat07/29/15 at 1230, Until Sat07/29/15 at 1416, Pain, Anesthesia Intra-op, Routine Given 07/29/2015 12:54 PM EST 0.4 mg Given 07/29/2015 12:30 PM EST 0.4 mg lactated ringers infusion New Bag 07/29/2015 11:46 AM EST CONTINUOUS PRN, Starting on Sat07/29/15 at 1146, Until Sat07/29/15 at 1416, Anesthesia Intra-op ondansetron (ZOFRAN) injection Given 07/29/2015 1:40 PM EST 4 mg PRN, Starting on Sat07/29/15 at 1340, Until Sat07/29/15 at 1416, Nausea, Anesthesia Intra-op, Routine piperacillin-tazobactam (ZOSYN) injectio n Given 07/29/2015 12:00 PM EST 3.375 g PRN, Starting on Sat07/29/15 at 1200, Until Sat07/29/15 at 1416, Anesthesia Intra-op, Routine documented in this encounter Care Teams Geology Faculty Member Relationship Specialty Start Date End Date Gordy Gregg MD PCP - General Family Medicine 05/19/[address] [place] [address] documented as of this encounter
--- OUTSIDE RECORDS SUMMARY | 2022-01-25 00:57 | XMS_ITS | Encounter Summary ---
:1950 [place] [address] Care Team Providers Name Role Phone Gordy Gregg MD Primary Care Provider [phone] Reason for Visit Auth/Cert - Closed Specialty Diagnoses / Procedures Referred By Contact Refer red To Contact Diagnoses SFA to peroneal bypass occluded graft Procedures PRO VEIN IN SITU BYPASS GRAFT, FEM-TIB PRO VEIN BYPASS GRAFT, FEM-TIBIAL @BYPASS GRAFT, FEM.-ANT. TIB, POST. TIB, PERONEAL, DP W\ VEIN CONDUIT ([place] [address]) Referral ID Status Reason Start Date Expiration Date Visits Requ ested Visits Authorized [id number] Closed 1 1 Encounter Details Date Type Department Care Team Description 07/27/2015 Anesthesia Event Main Operating Room Michael Garcia MD [facility] [place] [address] El Moon MD [facility] [place] [address] [place] [address] Anesthesia Record Procedure Summary Procedure Name Responsible Anesthesia Start Anesthesia Stop Anesthesiologist Time Time FLAP, MYOCUTANEOUS OR Rosy Garcia MD 07/27/15 1315 1540 FASCIOCUTANEOUS, LOWER EXTREMITY (WRVU 19.04) (Left Leg Lower) Events Date Time Event Comment 07/27/2015 1315 Start 1320 AN Verify 1321 An Start Data 1333 An Induction 1338 An Intubation 1339 Anesthesia Ready 1345 Break/Relief In ROSY Wyman MD 1352 Procedure Start 1417 Break/Relief Out 1436 Extubation/LMA Out 1443 an stop data 1532 Quick Note On PACU hold. Timmy aguilar fully recovered from anesthesia, is a wake alert, hemodynamically stable without p ain or nausea. 1533 Recovery or ICU Handoff Patient care was transferred to the destination unit staff after review of the patient's medica l history, current anesthetic/surgi ray status and plan, according to the Provider Handoff Checklist. 1540 Stop 07/28/2015 0921 Name Total fentaNYL 50 mcg IV Lidocaine 40 mg Propofol 80 mg Rocuronium 30 mg PHENYLephrine 200 mcg Ondansetron 4 mg Neostigmine 1.5 mg Glycopyrrolate 0.2 mg piperacillin-tazobactam (ZOSYN) 3.375 g in dextrose 5% 50 mL 3.375 g PHENYLephrine INF 250 mcg Lactated Ringers 500 mL Agents Name O2 Air N2O Sevoflurane (et) Desflurane (et) Blood No blood administrations on file. Lines, Drains, and Airways Type Details Placement Removal Incision 07/24/15; leg 07/24/15 0000 by (Amputation of left Elicia Perez, foot. 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 07/27/15 0000 by Suzanne Elam RN Lumbar/CSF Drain 07/27/15; Left; groin; 07/27/15 0000 by vac dsg lt groin Lucero Glass RN Incision 03/18/15; leg; vertical 03/18/15 0000 by Elam, 0 08/11/15 0003 by (Extending from left JOSEPH Burch Kristy L, groin to left medial RN calf.); 08/11/15; 0003 Incision 03/18/15; calf; 03/18/15 0000 by Elam, 08/11/15 0003 by vertical; 08/11/15; 0003 JOSEPH Burch Kristy L RN Incision 05/26/15; groin; 05/26/15 0000 by [place]is, 08/11/15 0003 by vertical, other (see JOSEPH Feliciano Kristy L, comments); 08/11/15; RN 0003 Incision 05/26/15; leg; vertical; 05/26/15 0000 by [place], 08/11/15 0003 by (distal leg); 08/11/15; JOSEPH Feliciano Kristy L, 0003 RN Urethral Catheter 07/21/15; (Placed at 07/21/15 0000 by 07/31/15 1030 by [facility]); indwelling Estrellita Ruiz RN [place] nte, Chantal L, single lumen catheter; RN present on admission to this facility; 10; 07/31/15; 1030 PIV 07/23/15; 2237; cephalic 07/23/15 2237 by Gerardo, 08/03/15 1357 by vein right (lateral side JOSEPH Campos Jillian Y, of arm); lygk-ymt-cunuzl M[employer]GAGE FIELD INSPECTOR catheter system; 18 gauge, 1 in length; Denzel Carrillo RN VAS; intradermal injection, appears comfortable, tolerated well; 0; 08/03/15; 1357 Incision 07/24/15; leg (Groin to 07/24/15 0000 by 6 [facility] 07/29/15; Elicia Perez, Elicia Payne 1039 MAGALY Lloyd RN Lumbar/CSF Drain 07/24/15; Left; medial; 07/24/15 0000 by [place], 07/29/15 1626 by calf; [place] (07/11 JOSEPH Griffith Jen nifer inch.); removed in OR; E, RN 07/29/15; 1626 PIV 07/24/15; 1213; 07/24/15 1213 by 07/27/151999 b y metacarpal vein left Jaki Menchaca MD Kim, Anni E RN (top of hand); hgti-hpp-fokora catheter system; 14 gauge; Benite[place]; 07/27/15; 1999 Arterial Line 07/24/15; 1435; radial 07/24/15 1435 by 07/27/151999 by artery; 20 gauge; Jaki Menchaca MD Kim, JOSEPH Ding; Sterile Prep, Sterile Gloves; 07/27/15; 1999 ETT Mask Ventilation: Easy 07/27/15 1338 by Kassandra, 1436 by (1); ETT Type: CuffedRosy MD Toth, Chapito Palma MD Oral; ETT Size: 7 mm; Mac Blade: 3; Notes: Asleep, Pre-O2, Stylette; Attempts: 1; Laryngoscopy Grade: 1; ETT Placement Verified By: Auscultation, Capnometry; Secured at Teeth: 22 cm; Inserted by: DO Victor Hugo documented in this encounter Social History Tobacco Use Types Packs/Day Years Used Date Never Smoker Smokeless Tobacco: Never Used Alcohol Use Standard Drinks/Week Comments No 0 (1 standard drink = 0.6 oz pure alcoho l) Sex Assigned at Date Recorded Not on file documented as of this encounter OR Notes Anesthesia Postprocedure Evaluation - Beka Gay - 07/27/2015 4:32 PM [place] [facility] [place] Post-procedure Note Patient: Carrie Hurst Procedure Summary Date Anesthesia Start Anesthesia Stop Room / Location 07/27/15 1315 1540 [facility] OR 14 / [facility] MAIN OR Procedure Diagnosis Surgeon Responsible Provider FLAP, MYOCUTANEOUS OR FASCIOCUTANEOUS, LOWER EXTREMITY (Left Leg Lower); MODIFIER WOUND VAC (Left Groin); DEBRIDEMENT SKIN AND SUBCU, LOWER EXTREMITY (Left Groin) (LLE guillotene BKA, left groin woundwith wound vac in place) Elicia Caal MD Yen, Christopher A, MD Last (1hr) Vitals: BP 133/60 mmHg (07/27/151614) Temp 37 ??C (98.6 ??F) (07/27/15 1551) Pulse 75 (07/27/151614) Resp 10 (07/27/151614) SpO2 97 % (07/27/151614) Patient Location: PACU/[facility] Level of Consciousness: Awake and Alert Pain Management: Satisfactory Analgesia PONV: None Cardiovascular Status: At Baseline and Hemodynamically Stable Respiratory Status: At Baseline Postoperative Fluid Status: Intravascular EUvolemia Possible Anesthetic Complications: NONE apparent at time of evaluation Final Primary Anesthesia Type: General (The anesthetic type performed was the same as planned.) Comments: Anesthesia Preprocedure Evaluation - Beka Gay - 07/27/2015 11:15 AM EST Pre-Anesthesia Evaluation for: Carrie Hurst [...] CONDUIT ([place] [address]) performed by Mariano Doyle MD at [facility] MAIN OR ??? Pro bypass graft othr, fem-tibial Left 05/26/2015 @BYPASS GRAFT, FEM-ANT TIBIAL, -POST TIBIAL, -PERONEAL, -DP W\ SYNTHETIC CONDUIT performed by Mariano Doyle MD at [facility] MAIN OR ??? Pro bypass graft vein patch/cuff, synthetic Left 05/26/2015 PLACEMENT VEIN PATCH OR CUFF AT DISTAL ANASTOMOSIS OF BYPASS GRAFT, SYNTHETIC CONDUIT , RODRIGUEZ-COLLAR, RACHELLE-PATCH, ADD-ON CODE, LOWER EXTREMITY performed by Mariano Doyle MD at [facility] MAIN OR ??? Pro thromboendartectmy iliofemoral Left 05/26/2015 @ENDARTERECTOMY, ILIOFEMORAL W OR W/O PATCH GRAFT performed by Mariano Doyle MD at [facility] OR ??? Pro reoperation, bypass graft Left 05/26/2015 @RE-OP FOR RE-DO LOWER EXTREMITY BYPASS GRAFT, >1 MONTH P\ ORIGINAL SURGERY, ADD-ON CODE performed by Mariano Doyle MD at [facility] MAIN OR ??? Pro amputation low leg, circular Left 07/24/2015 @AMPUTATION, BELOW-KNEE, OPEN, GUILLOTINE performed by Elicia Caal MD at [facility] OR ??? Pro exploration, femoral artery Left 07/24/2015 @EXPLORATION, W/WO LYSIS, FEMORAL ARTERY W\O SURGICAL REPAIR performed by Elicia Caal MD at [facility] OR ??? Pro negative pressure wound therapy, less than or equal to 50 sqcm Left 07/24/2015 DRESSING CHANGE (VAC ASSISTED) UP TO 50SQ.CM performed by Elicia Caal MD at [facility] MAIN OR ??? Pro rebl ves direct, low extrem Left 07/24/2015 REPAIR LOWER EXTREMITY BLOOD VESSEL, DIRECT, NO PATCH OR GRAFT performed by Elicia Caal MD at [facility] OR ??? Pro excision, infec graft, extremity Left 07/24/2015 EXCISION OF INFECTED GRAFT FROM LOWER EXTREMITY performed by Elicia Caal MD at [facility] OR History Substance Use Topics ??? Smoking status: Never Smoker ??? Smokeless tobacco: Never Used ??? Alcohol Use: No History Drug Use No Comment: marijuana (smoked for 8 years. quit 2004) No Known Allergies Medications: MAR and/or home medications have been reviewed. Physical Exam: Filed Vitals: 07/27/15 1114 BP: Pulse: 74 Temp: Resp: 16 Body mass index is 25.4 kg/(m^2). Height: 152.4 cm (5') Weight - Scale: 59 kg (130 lb 1.1 oz) Airway Assessment: Mallampati: II TM distance: >3 FB Neck ROM: full Cardiovascular Assessment: cardiovascular exam normal Pulmonary Assessment: pulmonary exam normal Dental Assessment: - normal exam Misc Assessment: Patient is wearing No contact(s). IV access: Peripheral line Other exam findings: Dobut stress echo (9/9/15): SUMMARY: ??1. BASELINE: The left ventricle is [...] signed and placed in chart.\ Code: DNR rescinded in peroperative period after discussion with patient EL AUSTIN MD 07/26/2015 Attending addendum: Hx reviewed, pt seen/examined. [...] others. All questions answered to her satisfaction. ROSY GARCIA MD Region - Other Informed Consent: Anesthetic plan [...] Rate Site fentaNYL 50 mcg/mL multi-dose Given 07/27/2015 1:33 PM EST 50 mc g injection PRN, Starting on Sat07/27/15 at 1333, Until Sat07/27/15 at 1632, Pain, Anesthesia Intra-op, Routine glycopyrrolate (ROBINUL) multi-dose inje ction Given 07/27/2015 2:30 PM EST 0.2 mg PRN, Starting on Sat07/27/15 at 1430, Until Sat07/27/15 at 1632, Anesthesia Intra-op, Routine lactated ringers infusion New Bag 07/27/2015 1:15 PM EST CONTINUOUS PRN, Starting on Sat07/27/15 at 1315, Until Sat07/27/15 at 1632, Anesthesia Intra-op lidocaine (PF) (XYLOCAINE) 100 mg/5 mL (2 %) Given 6 1:33 PM EST 40 mg injection PRN, Starting on Sat07/27/15 at 1333, Until Sat07/27/15 at 1632, Anesthesia Intra-op, Routine neostigmine (PROSTIGMINE) multi-dose Given 07/27/2015 2:30 PM ES T 1.5 mg injection PRN, Starting on Sat07/27/15 at 1430, Until Sat07/27/15 at 1632, Anesthesia Intra-op, Routine ondansetron (ZOFRAN) injection Given 07/27/2015 2:30 PM EST 4 mg PRN, Starting on Sat07/27/15 at 1430, Until Sat07/27/15 at 1632, Nausea, Anesthesia Intra-op, Routine PHENYLephrine Rate/Dose Change 07/27/2015 2:13 10 mcg/min 7.5 mL/hr (TONI-SYNEPHRINE) 20 mg in PM EST sodium chloride 250 mL (standard ADULT & [place] greater than 20kg) infusion CONTINUOUS PRN, Starting on Sat07/27/15 at 1410, Until Sat07/27/15 at 1632, Anesthesia Intra-op, Routine New Bag 07/27/2015 2:10 PM EST 20 mcg/min 15 mL/hr PHENYLephrine HCl in NS (PF) (TONI-SYNEPHRINE) Given 2:07 PM EST 40 mcg 0.8 mg/10 mL (80 mcg/mL) multi-dose injection Syrg PRN, Starting on Sat07/27/15 at 1400, Until Sat07/27/15 at 1632, Anesthesia Intra-op, Routine Given 07/27/2015 2:00 PM EST 80 mcg Given 07/27/2015 1:35 PM EST 80 mcg piperacillin-tazobactam (ZOSYN) Given 07/29/2015 6:26 AM EST 3.3 75 g 12.5 mL/hr 3.375 g in dextrose 5% 50 mL 3.375 g, Intravenous, EVERY 8 HOURS SCHEDULED, First dose on 07/23/15 at 2200, Until Discontinued, Administer over 4 Hours, Indication for (Active or Suspected): Skin/Skin Structure Given 07/28/2015 10:42 PM EST 3.375 g 12.5 mL/hr Given 07/28/2015 1:42 PM EST 3.375 g 12.5 mL/hr propofol (DIPRIVAN) 10 mg/mL bolus injection Given 6 1:33 PM EST 80 mg (Anesthesia) PRN, Starting on Sat07/27/15 at 1333, Until Sat07/27/15 at 1632, Anesthesia Intra-op rocuronium (ZEMURON) multi-dose injectio n Given 07/27/2015 1:33 PM EST 30 mg PRN, Starting on Sat07/27/15 at 1333, Until Sat07/27/15 at 1632, Anesthesia Intra-op, Routine documented in this encounter Care Teams Stars Coordinator Relationship Specialty Start Date End Date Gordy Gregg MD PCP - General Family Medicine 05/19/[address] [place] [address] documented as of this encounter
--- OUTSIDE RECORDS SUMMARY | 2022-01-25 00:57 | XMS_ITS | Encounter Summary ---
:1950 [place] [address] Care Team Providers Name Role Phone Gordy Moon MD Primary Care Provider [phone] Reason for Visit Auth/Cert - Closed Specialty Diagnoses / Procedures Referred By Contact Refer red To Contact Diagnoses SFA to peroneal bypass occluded graft Procedures PRO VEIN IN SITU BYPASS GRAFT, FEM-TIB PRO VEIN BYPASS GRAFT, FEM-TIBIAL @BYPASS GRAFT, FEM.-ANT. TIB, POST. TIB, PERONEAL, DP W\ VEIN CONDUIT ([place] [id number]) Referral ID Status Reason Start Date Expiration Date Visits Requ ested Visits Authorized [id number] Closed 1 1 Encounter Details Date Type Department Care Team Description 07/29/2015 Surgery Main Operating Room Elicia Caal DRESSING CHANGE (FOR Haley Uriarte MD OTHER THAN ESCALANTE) [facility] ANES., LOWER EXTREMITY [facility] (WRVU 0.86) [facility] [place] [address] [place] [id number] [phone] (Wo rk) Social History Tobacco Use Types [...] She then underwent a second LLE bypass WOMEN'S STUDIES PROFESSOR to PT with PTFE, on 05-26. This was found to be occluded on 06-01. Since that time the patient has had progressive worsening of her medial/distal surgical incision that has failed to heal. With no additional revasc options she was offered opportunity to enrol in stemcell trial, but declined. 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 On 07-20-[address] [facility] [place] with SIRS physiology, felt to be related to her leg wound. She declinedtransfer to [facility] for amputation at that time and was admitted and started on antibiotics. Today, ellyhas resigned to transfer for further care of [...] ligated and resected; bovine pericardial patch resected, WOMEN'S STUDIES PROFESSOR debrided and repaired with new bovine pericardial [...] IV Dapto for new micro growth records. [facility] ID involved with final recs for: IV Dapto through PICC line placed day of discharge. Nephrology consulted for PANDA with Cr rise to 1.87 at peak s/t supertherapeutic Vanc. Renal duplex obtained, resulted below. Pt's metformin and lisinopril held. Nephrology will see pt outpt. Cr @ discharge: 1.31, baseline 0.35. Initially on TRAVELING AUDITOR for pain control through 07/31, transitioned to [...] renal vein. Discharge Conditions/Prognosis: Good Discharge to: [address] [place] [address] Discharge Medications: Your Medications New Medications Dose [...] should change your wound vac dressing on Mon/Wed/Fri schedule or every 2-3 days.You can shower [...] For any problems or questions please call [phone] SAMIA Lopez, bulk plant operator Nurse Clinician For issues on weeknights after 5pm and weekends please call [phone] and ask for the Vascular Fellow inspection and testing supervisor. General Instructions None Future Appointments and Orders Future Appointments Provider Department Dept Phone 08/17/2015 3:00 PM Radha Waller PA Vascular Surgery [phone] 08/17/2015 4:00 PM Maria Hernandez MD; Donya Awad MD Nephrology [phone] Future Orders Complete By Expires OPAT: Order / Recommendation for Post Discharge IV Antibiotic Management [[id number] CPT(R)] As directed Process Instructions: If no progress note charted, please enter Clinical details in comments. Scheduling Instructions: Comments: Please Fax all results to: OPAT Program Infectious Disease Section [facility], [place] [address] FAX: Line care instructions per [facility] OPAT Program protocol. After hours, please contact the Infectious Disease Physician inspection and testing supervisor at . If this order was signed greater than 72 hours prior to [facility] discharge, please call to confirm the accuracy [...] For any problems or questions please call [phone] SAMIA Lopez, bulk plant operator Nurse Clinician For issues on weeknights after 5pm and weekends please call [phone] and ask for the Vascular Fellow inspection and testing supervisor. documented in this encounter Medications at Time [...] 1:59 PM EST Pt being discharged to [facility] by ambulance. PICC line placed today for IV abx treatment. PIVs removed. Wound vac clamped for ride. Reported called to receiving facility. Discharge summary and medicationsheet printed and placed in discharge packet. Complications regarding code status. manager documentation Joanna gaxiola and MD Jason Miramontes informed and questioned. Code order read as DNR, but scanned advanced directive read full code. MD Miramontes and case therapist Sachin spoke with pt. It was determined that the pt requested DNR status and paperwork was filled out accordingly. Plan reviewed with pt and pt family. 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 25' M.Pepper Felipe MD Pager [phone] ARET [place], October - 08/03/2015 12:18 PM EST Office of Care Management/Sail Finisher Machine Patient Name: Chan uHrst : 1950 Patient has been offered a swing bed at [facility]. [facility] arranged for a 1:30 pm Transport. Ambulance will need: Medicare ambulance form completed and signed (MD or CRC) Copy of patient demographics [place] [facility] DNR/DNI order, if active Please have MD call Dr Haley Hopson @ [phone] and page her. RN to RN:Please call Nursing Report to Amalia Pond RN @ [phone]. Info to accompany patient: Copies of Medication Administration Records and IV sheets for past 10 days. Plan: Sail Finisher Machine will be available to the patient and CRC for further assistance. Patient will be discharged to: [facility] [address] [id number] Tiffany [place] Sail Finisher Machine Maria Hernandez - 08/03/2015 12:03 PM EST HYPERTENSION/ NEPHROLOGY [...] 3.9 3.6 CL 101 105 102 CO2 26 25 BUN 20* 22* 22* CREATININE [...] have contributed Urine out put > 1L bluing oven tender clearance ~ 29 by 24 hr collection [...] Ignacio Hernandez MD Nephrology Fellow Pager # [phone] Associated attestation - Karen Pierre MD - [...] EST Office of Case Mangement (OCM) 08/01/2015 eD reviewed -- CM attempted visit with patient [...] sister is quite insistant to d/c to [facility] swing but is agreeable to selection of three - will request TCT by Sail Finisher Machine to [facility] to ascertain bed option as did not appear of [facility] list of facilities - [facility] - [facility] -- [facility][1] -- transportation will still be determined 08/02/2015 -- Jaime Heraclio, live in friend for 20+ years, consulted with CM - expressed concern of the need for POA for - wishes to complete POA / living will at bedside this date -- ELECTRONICS MECHANIC APPRENTICE consulted and agreeable to meet with patient and Jaime this date -- also verbalized concern with SNF selection as wishes patient to be in swing bed 1st choice - agreeable to make 1st choice awareness to facilities selected to include [facility] - CM consulted with Ms. Hurst and Jaime at bedside to confirm with patient who makes her wishes known in selection to confer swing bed rehab to be 1st choice - Sail Finisher Machine made aware to communicate to facilities - CM consulted with PT who visited with patient this date who does feel patient may benefit with acute rehab - CM discussed with patient and Jaime acute rehab options - with much discussion Ms. Hurst and Jaime are agreeable to keep referrals to SNF /swing bed level rehab - will make patient wishes known to swing bed 1st choice via Sail Finisher Machine - [id number] -- received/answered page as Jaime requested to discuss his desire to be 1st contact in decisions moving forward - this is agreeable encouraged to inform nurses at desk this night and this CM will made designated in demographics in am as I have left office for the day - agreeable 08/03/2015 -- [id number] - email sent to PAAS to update the above request -- Vasc Surg consulted medicallycleared for d/c today - [facility] accepted patient / will need to verify Dapto / PICC placement today at [facility] via Sail Finisher Machine -- bed accepted by POA and patient - PICC scheduled for prior to 1pm - NPWT being changed currently - discussed with patient and POA of transport via ambulance unsure amountcovered by insurance to expect billing at later time - verbalized understanding and agreeable - waiting for time for ambulance arrival - CM alerted by Sail Finisher Machine NO ambulance scheduled until PICC is placed [...] controversial advance directives and patient verbalization - ELECTRONICS MECHANIC APPRENTICE consulted to determine [facility] processes with portable DNR for ambulance transport - Dr. Podn discussed with patient her desires - DNR stands and portable DNR prepared and signed by patient CM available Kerri Stephenson RN CCM #[id number] Debi Dubon OT - 08/02/2015 4:25 PM [...] Ligation and removal of thrombosed, infected left WOMEN'S STUDIES PROFESSOR-PT PTFE bypass graft. ?? 5. Placement of [...] 20 minutes for functional ther ex Pager: [phone] DEBI DUBON OT Occupational Therapy Rehabilitation Department Maria Garcia - 08/02/2015 4:03 PM EST HYPERTENSION/ NEPHROLOGY CONSULT PATIENT: Chan uHrst : 1950 REASON FOR CONSULTATION: worsening of [...] contributed Urine out put > 1L yesterday bluing oven tender clearance measurement in progress, cystatin C in process Will re assess this data tomorrow Please dose all her meds for GFR ~ 15 or less Volume status stable over all Will be followed in renal clinic upon discharge Thanks for letting us participate in the care of this patient. Seen and Discussed w/ Dr. Ignacio Hernandez MD Nephrology Fellow Pager # [phone] Associated attestation - Karen Pierre MD - [...] She then underwent a second LLE bypass WOMEN'S STUDIES PROFESSOR to PT with PTFE, on 05-26. This was found to be occluded on 06-01. Since that time the patient has had progressive worsening of her medial/distal surgical incision that has failed to heal. Procedures: 07/24: LLE guillotine amp, removal PTFE graft, wound vac, bovine patch WOMEN'S STUDIES PROFESSOR 07/27: Wound vac change, sartorious flap coverate [...] interventions: 30 minutes for functional mobility Pager: [phone] Dariusz Pedraza PT Physical Therapy Rehabilitation Department [...] She then underwent a second LLE bypass WOMEN'S STUDIES PROFESSOR to PT with PTFE, on 05-26. This was found to be occluded on 06-01. Since that time the patient has had progressive worsening of her medial/distal surgical incision that has failed to heal. Procedures: 07/24: LLE guillotine amp, removal PTFE graft, wound vac, bovine patch WOMEN'S STUDIES PROFESSOR 07/27: Wound vac change, sartorious flap coverate [...] 93 % SpO2: [92 %-96 %] 08/01 0701 - 08/02 0700 In: 540 [P.O.:540] Out: [...] amputation LLE with removal of thrombosed/infected L WOMEN'S STUDIES PROFESSOR-PT PTFE bypass graft, and debridement of L WOMEN'S STUDIES PROFESSOR artery with repair of bovine pericardial patch POD#6 from sartorious flap coverage of exposed WOMEN'S STUDIES PROFESSOR, POD #4 s/p L AKA. Patient continues [...] will need SNF. Mariano Miramontes MD Pager [phone] Amita Carnes LD - 08/02/2015 1:33 PM [...] follow throughout hospital stay DAPHNEY TITUS Pager [phone] Hoa Felipe MD - 08/02/2015 1:23 PM [...] ? 1 Gentamicin is not appropriate for [place]-therapy. ? 2 MRSA, Note Nafcillin Resistance Impression: Reviewed operative reports and literature re duration of antibiotic therapy following bovine patch graft in infected field. While there is no randomized trial data, duration of antibiotic therapy following this procedure is often prolonged. In one trial (Andrew WD et al J Vasc Surg 2012; 55(6):1712), [...] is anticipated. Await updated input from the Resin Remover re options. Discussed with Dr. Miramontes. ID Consult service will continue to follow the patient x ID Consult service will sign off. Please call us back if further assistance is needed. 35'; >50% in care coordination Krishna Felipe MD Pager [phone] Debi Bradshaw, OT - 08/01/2015 4:52 PM EST Occupational [...] Ligation and removal of thrombosed, infected left WOMEN'S STUDIES PROFESSOR-PT PTFE bypass graft. ?? 5. Placement of [...] blocked, cues for technique. Pt stood while PATTERN FINISHER performed caty care. ?? Mod assist x2 [...] 26 minutes for functional there ex Pager: [phone] DEBI DUBON OT Occupational Therapy Rehabilitation Department [...] Ligation and removal of thrombosed, infected left WOMEN'S STUDIES PROFESSOR-PT PTFE bypass graft. ?? 5. Placement of [...] She then underwent a second LLE bypass WOMEN'S STUDIES PROFESSOR to PT with PTFE, on 05-26. This was found to be occluded on 06-01. Since that time the patient has had progressive worsening of her medial/distal surgical incision that has failed to heal. With no additional revasc options she was offered opportunityto enrol in stemcell trial, but declined. 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 On 07-20-[address] she [address] [facility] with SIRS physiology, felt to be related to her leg wound. She declined transfer to [facility] for amputation at that time and was admitted and started on antibiotics. Today, she has resigned to transfer for further care of her leg wound. Social History: Patient lives in [place], [place].?? Lives with boyfriend.?? Boyfriend works so [...] interventions: 29 minutes ( TE-F x 2) Aanbel Vela, PT Pager [phone] Inpatient Physical Therapy Mariano Miramontes MD - [...] She then underwent a second LLE bypass WOMEN'S STUDIES PROFESSOR to PT with PTFE, on 05-26. This was found to be occluded on 06-01. Since that time the patient has had progressive worsening of her medial/distal surgical incision that has failed to heal. Procedures: 07/24: LLE guillotine amp, removal PTFE graft, wound vac, bovine patch WOMEN'S STUDIES PROFESSOR 07/27: Wound vac change, sartorious flap coverate [...] [90 %-98 %] 07/31 07 - 08/01 07 In: 979.4 [P.O.:717; I.V.:262.4] Out: 1375 [Urine:1275] [...] 3.9 4.0 CL 102 101 106 CO2 25 23 25 BUN 22* 21* 19* CREATININE [...] amputation LLE with removal of thrombosed/infected L WOMEN'S STUDIES PROFESSOR-PT PTFE bypass graft, and debridement of L WOMEN'S STUDIES PROFESSOR artery with repair of bovine pericardial patch POD#5 from sartorious flap coverage of exposed WOMEN'S STUDIES PROFESSOR, POD #3 s/p L AKA. Improved leukocytosis [...] will need SNF. Mariano Miramontes MD Pager [phone] Maria Hernandez - 08/01/2015 11:56 AM EST HYPERTENSION/ NEPHROLOGY [...] 3.9 4.0 CL 102 101 106 CO2 25 23 25 BUN 22* 21* 19* CREATININE [...] contributed Urine out put > 1L yesterday. bluing oven tender stable but would like to do 24 [...] Ignacio Hernandez MD Nephrology Fellow Pager # [phone] Associated attestation - Karen Pierre MD - [...] admitted on 07/23/2015 by Elicia Rivera, * intransfer from [facility] for Vascular service consult who presents now with wet gangrene of the left lower extremity. ? 07-24-15: OR Procedure(s): 1. Left below-knee guillotine amputation 2. Incision and drainage of multiple LLE abscesses 3. Left common femoral artery exposure, debridement and repair with bovine pericardial patch. 4. Ligation and removal of thrombosed, infected left WOMEN'S STUDIES PROFESSOR-PT PTFE bypass graft. ?? 5. Placement of [...] She then underwent a second LLE bypass WOMEN'S STUDIES PROFESSOR to PT with PTFE, on 05-26. This was found to be occluded on 06-01. Since that time the patient has had progressive worsening of her medial/distal surgical incision that has failed to heal. With no additional revasc options she was offered opportunityto enrol in stemcell trial, but declined. 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 On 07-20-[address] she [address] [facility] with SIRS physiology, felt to be related to her leg wound. She declined transfer to [facility] for amputation at that time and was [...] VEIN CONDUIT ([place] [address]) performed by Mariano Doyle MD at [facility] OR? Pro bypass graft othr, fem-tibial?? Left?? 05/26/2015? @BYPASS GRAFT, FEM-ANT TIBIAL, -POST TIBIAL, -PERONEAL, -DP W\ SYNTHETIC CONDUIT performed by Mariano Doyle MD at [facility] OR? Pro bypass graft vein patch/cuff, synthetic?? Left?? 05/26/2015? PLACEMENT VEIN PATCH OR CUFF AT DISTAL ANASTOMOSIS OF BYPASS GRAFT, SYNTHETIC CONDUIT , RODRIGUEZ-COLLAR, RACHELLE-PATCH, ADD-ON CODE, LOWER EXTREMITY performed by Mariano Doyle MD at [facility] OR? Pro thromboendartectmy iliofemoral?? Left?? 05/26/2015? @ENDARTERECTOMY, ILIOFEMORAL W OR W/O PATCH GRAFT [facility]? Pro reoperation, bypass graft?? Left?? 05/26/2015? @RE-OP FOR RE-DO LOWER EXTREMITY BYPASS GRAFT, >1 MONTH P\ ORIGINAL SURGERY, ADD-ON CODE performed by Mariano Doyle MD at [facility] OR? Pro amputation low leg, circular?? Left?? 07/24/2015? @AMPUTATION, BELOW-KNEE, OPEN, GUILLOTINE [facility]? Pro exploration, femoral artery?? Left?? 07/24/2015? @EXPLORATION, W/WO LYSIS, FEMORAL ARTERY W\O SURGICAL REPAIR performed by Rufus Caal MD at [facility] OR? Pro negative pressure wound therapy, less than or equal to 50 sqcm?? Left?? 07/24/2015? DRESSING CHANGE (VAC ASSISTED) UP TO 50SQ.CM performed by Elicia Caal MD at [facility] OR? Pro rebl ves direct, low extrem?? Left?? 07/24/2015? REPAIR LOWER EXTREMITY BLOOD VESSEL, DIRECT, NO PATCH OR GRAFT performed by Elicia Caal MD at [facility] OR? Pro excision, infec graft, extremity?? Left?? 07/24/2015? EXCISION OF INFECTED GRAFT FROM LOWER EXTREMITY performed by Elicia Caal MD at [facility] OR? Pro muscle-skin flap, leg?? Left?? 07/27/2015? FLAP, MYOCUTANEOUS OR FASCIOCUTANEOUS, LOWER EXTREMITY performed by Elicia Caal MDat [facility] OR? Pro debridement subcutaneous tissue 20 sqcm/<?? Left?? 07/27/2015? DEBRIDEMENT SKIN AND SUBCU,?? LOWER EXTREMITY performed by Elicia Caal MD at [facility] OR? Left?? 07/27/2015? MODIFIER WOUND VAC performed by Elicia Caal MD at [facility] OR?? Social History: Patient lives in [place], [place].?? Lives with boyfriend.?? Boyfriend works so she's home alone. Baseline Mobility: decreased activity tolerance but managing on her own in day hours while boyfriendworking. Boyfriend states his home is a small [place] [employer] style re-done outside and his mother needed [...] whiteboard, reviewed with pt and family, RN, NOMI. Slideboard on bed for pt use with [...] x 3) Radha Dover PT, MSPT Pager [phone] Inpatient Physical Therapy ColumboJuliano - 07/31/2015 12:44 PM EST INPATIENT DAILY [...] She then underwent a second LLE bypass WOMEN'S STUDIES PROFESSOR to PT with PTFE, on 05-26. This was found to be occluded on 06-01. Since that time the patient has had progressive worsening of her medial/distal surgical incision that has failed to heal. Procedures: 07/24: LLE guillotine amp, removal PTFE graft, wound vac, bovine patch WOMEN'S STUDIES PROFESSOR 07/27: Wound vac change, sartorious flap coverate [...] 96 % SpO2: [94 %-98 %] 07/30 07 - 07/31 07 In: 1176.4 [P.O.:540; I.V.:636.4] Out: 1375 [Urine:1175] [...] amputation LLE with removal of thrombosed/infected L WOMEN'S STUDIES PROFESSOR-PT PTFE bypass graft, and debridement of L WOMEN'S STUDIES PROFESSOR artery with repair of bovine pericardial patch POD#4 from sartorious flap coverage of exposed WOMEN'S STUDIES PROFESSOR, POD #2 s/p L AKA. . Leukocytosis today, getting UA with culture. On dapto but may need to broaden pending results. Removing garnica, stopping TRAVELING AUDITOR and encouraging mobilization today. PLAN 07/31: 1. Daptomycin, discontinue Zosyn per ID recs as not growing Pseudomonas from groin wound but only from foot, which has been amputated. UA as above. 2. Increase intake of nutritious fluids not just liquid. 3. Stop TRAVELING AUDITOR. 4. Taking garnica out. 5. PT/OT consults Juliano Allen [phone]. Vesna Aguila MD - 07/31/2015 12:02 PM [...] contributed Urine out put > 1L yesterday. Hand Plate Stacker is stale to improving today Duplex for [...] w/ Dr. Ignacio Moise Nephrology Fellow Pager [phone] Associated attestation - Karen Pierre MD - [...] 1800 from ISCU; A & O, pain 7/10, niece/ at bedside. Upon assessment, lungs clear, heart regular, active BS, passing flatus, garnica to gravity drainage, rightDP and PT palpable 1+ with some edema in the foot and ankle, left residual limb dressing was kenneth-wrapped and C/D/I. Two right PIV's were running, one that was connected to a Dilaudid TRAVELING AUDITOR running at 0.2/5/4 and the other KVO. [...] that are most likely due to Dilaudid TRAVELING AUDITOR. Will continue to monitor. Patient remains in bed and has call aparicio within reach. Anabel Feldman PT - 07/30/2015 4:42 PM EST Physical Therapy Note Visit #2 Patient profile: Pt. is a 64 y.o. female admitted on 07/23/2015 by Elicia Rivera, * in transfer from [facility] for Vascular service consult who presents now with wet gangrene of the left lower extremity. 07-24-15: OR Procedure(s): 1. Left below-knee guillotine amputation 2. Incision and drainage of multiple LLE abscesses 3. Left common femoral artery exposure, debridement and repair with bovine pericardial patch. 4. Ligation and removal of thrombosed, infected left WOMEN'S STUDIES PROFESSOR-PT PTFE bypass graft. ?? 5. Placement of [...] She then underwent a second LLE bypass WOMEN'S STUDIES PROFESSOR to PT with PTFE, on 05-26. This was found to be occluded on 06-01. Since that time the patient has had progressive worsening of her medial/distal surgical incision that has failed to heal. With no additional revasc options she was offered opportunityto enrol in stemcell trial, but declined. 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 On 07-20-[address] [facility] with SIRS physiology, felt to be related to her leg wound. She declined transfer to [facility] for amputation at that time and was [...] CONDUIT ([place] [address]) performed by Mariano Doyle MD at [facility] OR ??? Pro bypass graft othr, fem-tibial Left 05/26/2015 @BYPASS GRAFT, FEM-ANT TIBIAL, -POST TIBIAL, -PERONEAL, -DP W\ SYNTHETIC CONDUIT performed by Mariano Doyle MD at [facility] OR ??? Pro bypass graft vein patch/cuff, synthetic Left 05/26/2015 PLACEMENT VEIN PATCH OR CUFF AT DISTAL ANASTOMOSIS OF BYPASS GRAFT, SYNTHETIC CONDUIT , MICHAEL-COLLARRACHELLE-PATCH, ADD-ON CODE, LOWER EXTREMITY performed by Mariano Doyle MD at [facility] OR ??? Pro thromboendartectmy iliofemoral Left 05/26/2015 @ENDARTERECTOMY, ILIOFEMORAL W OR W/O PATCH GRAFT performed by Mariano Doyle MD at [facility] OR ??? Pro reoperation, bypass graft Left 05/26/2015 @RE-OP FOR RE-DO LOWER EXTREMITY BYPASS GRAFT, >1 MONTH P\ ORIGINAL SURGERY, ADD-ON CODE performed by Mariano Doyle MD at [facility] OR ??? Pro amputation low leg, circular Left 07/24/2015 @AMPUTATION, BELOW-KNEE, OPEN, GUILLOTINE performed by Elicia Caal MD at [facility] OR ??? Pro exploration, femoral artery Left 07/24/2015 @EXPLORATION, W/WO LYSIS, FEMORAL ARTERY W\O SURGICAL REPAIR performed by [facility] [facility] ??? Pro negative pressure wound therapy, less than or equal to 50 sqcm Left 07/24/2015 DRESSING CHANGE (VAC ASSISTED) UP TO 50SQ.CM performed by Elicia Caal MD at [facility] OR ??? Pro rebl ves direct, low extrem Left 07/24/2015 REPAIR LOWER EXTREMITY BLOOD VESSEL, DIRECT, NO PATCH OR GRAFT performed by Elicia Caal MD at [facility] OR ??? Pro excision, infec graft, extremity Left 07/24/2015 EXCISION OF INFECTED GRAFT FROM LOWER EXTREMITY performed by Elicia Caal MD at [facility] OR ??? Pro muscle-skin flap, leg Left 07/27/2015 FLAP, MYOCUTANEOUS OR FASCIOCUTANEOUS, LOWER EXTREMITY performed by Elicia Caal MD at [facility] OR ? ? Pro debridement subcutaneous tissue 20 sqcm/< Left 07/27/2015 DEBRIDEMENT SKIN AND SUBCU, LOWER EXTREMITY performed by Elicia Caal MD at [facility] OR ??? Left 07/27/2015 MODIFIER WOUND VAC performed by Elicia Caal MD at [facility] OR Social History: Patient lives in [place], [place]. Lives with boyfriend. Boyfriend works so [...] pain under control 2/10 @ rest using TRAVELING AUDITOR throughout session, more pain in L LE [...] home. Her SO visiting today and mentioned [facility] or [facility] bed (close to home for them). SO states he works at least 50 hours per week. Total time spent with patient: 50 minutes Total timed interventions: 50 minutes TE-F x 3 ANABEL VELA, PT 07/30/2015 Pager: [phone] Physical Therapy Rehabilitation Department Vesna Moise MD - 07/30/2015 3:38 PM EST HYPERTENSION/ [...] yesterday. Urine out put > 1L yesterday. Hand Plate Stacker is stale to improving today Duplex for [...] w/ Dr. Ignacio Moise Nephrology Fellow Pager [phone] Associated attestation - Karen Pierre MD - [...] She then underwent a second LLE bypass WOMEN'S STUDIES PROFESSOR to PT with PTFE, on 05-26. This was found to be occluded on 06-01. Since that time the patient has had progressive worsening of her medial/distal surgical incision that has failed to heal. Procedures: 07/24: LLE guillotine amp, removal PTFE graft, wound vac, bovine patch WOMEN'S STUDIES PROFESSOR 07/27: Wound vac change, sartorious flap coverate [...] four extremities spontaneously. Recent Labs 07/30/15 0811 07/29/15 0213 07/28/15 0430 WBC 14.7* 11.2* 11.1* HGB 8.7* 9.1* 9.0* HCT 26.8* 27.3* 27.4* PLATELET 405* 398* 350 Recent Labs 07/30/15 0811 07/29/15 0213 07/28/15 [...] amputation LLE with removal of thrombosed/infected L WOMEN'S STUDIES PROFESSOR-PT PTFE bypass graft, and debridement of L WOMEN'S STUDIES PROFESSOR artery with repair of bovine pericardial patch POD#3 from sartorious flap coverage of exposed WOMEN'S STUDIES PROFESSOR, POD #1 s/p L AKA. . Has [...] nutritious fluids not just liquid 3. Continue TRAVELING AUDITOR for break through pain control and PO pain meds. Will try to transition off of TRAVELING AUDITOR this weekend. 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 4. Keep garnica until patient mobilizing 5. PT/OT consults 6. Transfer to the floor Mala Cardenas, RN - 07/30/2015 5:58 AM EST Patient alert and oriented at the start of the shift. Overnight she became delirious and started seeing people that were not in the room, she was re- oriented and stated that she knew no one was there but she did feel a little confused. Her pain was controlled well with the TRAVELING AUDITOR pump, and one time PRN dose of [...] She then underwent a second LLE bypass WOMEN'S STUDIES PROFESSOR to PT with PTFE, on 05-26. This was found to be occluded on 06-01. Since that time the patient has had progressive worsening of her medial/distal surgical incision that has failed to heal. Procedures: 07/24: LLE guillotine amp, removal PTFE graft, wound vac, bovine patch WOMEN'S STUDIES PROFESSOR 07/27: Wound vac change, sartorious flap coverate [...] moving all four extremities spontaneously. Recent Labs 07/29/1521207/28/15 0430 07/27/15 0512 WBC 11.2* 11.1* 13.7* HGB 9.1* 9.0* 8.8* HCT 27.3* 27.4* 27.0* PLATELET 398* 350 354 Recent Labs 07/29/15 02107/28/15 0430 07/27/15 0512 NA 139 140 142 [...] amputation LLE with removal of thrombosed/infected L WOMEN'S STUDIES PROFESSOR-PT PTFE bypass graft, and debridement of L WOMEN'S STUDIES PROFESSOR artery with repair of bovine pericardial patch POD#2 from sartorious flap coverage of exposed WOMEN'S STUDIES PROFESSOR. Continues to do well in this hospitalization. [...] nutritious fluids not just liquid 3. Continue TRAVELING AUDITOR for pain control 4. To OR today for AKA and wound vac change 5. Renal duplex MARIANO MIRAMONTES MD 07/29/2015 Vascular Surgery, PGY-1 Pager: [phone] Karen Thornton MD - 07/29/2015 8:03 PM [...] Sensitive ? Imaging: No new imaging Impression: Chan Hurst is a 64 y.o. female with above mentioned multiple comorbidities p/w left foot wet gangrene to OSH with septic physiology wound cx yielded MRSA and pseudomonas,transferred to [facility] for surgical management.At [facility] she was initiated on iv vancomycin and [...] service will sign off for now,please page [phone] with questions Recommendations discussed with treating team, Consult service will continue to follow patient. x Recommendations are above, please page if further consultation required. Case discussed with ID attending Dr.Talbot Nolberto Starkey MD Infectious Disease fellow Pager [phone] ID ATTENDING I agree with assessment and recommendations above. I reviewed the data set and guided decision-making but did not re-examine the patient today. Karen Thornton MD Page [phone] All of this 35 minute visit were spent on the floor/unit in coordination of care for the patient, regarding treatment of infection as detailed in note above. Bogdan Sullivan MD - 07/29/2015 7:58 PM EST Post-Operative Progress Note Patient: Chan Hurst s/p Surgery: 07/29/2015 [id number] Procedure(s) (LRB): DRESSING CHANGE (FOR OTHER THAN [...] RN - 07/29/2015 7:00 PM EST NPN. AVSS. Transported to Pre anesthesia with underwriter. Returned from OR AVSS, lethargic, opens eyes [...] monitors applied, alarms set and audible. 1445: TRAVELING AUDITOR button given back to pt. Verbalizes understanding [...] 1L yesterday and 175 today so far. Hand Plate Stacker is STABLE today Duplex for kidneys showed [...] w/ Dr. Ignacio Moise Nephrology Fellow Pager [phone] Associated attestation - Karen Pierre MD - [...] 0.35* 05/29/2015 0.43* 05/28/2015 0.39* Taylor Killian, RD - 07/28/2015 12:45 PM EST Nutrition Note S:Likes milk, yogurt & Boost. 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 O: Patient Active Problem List Diagnosis [...] is agreeable to Boost Glucose Control and Hungarian yogurt. Plan/Recommendations: Suggest daily multivitamin Suggest check Hgb A1C Suggest consider carb controlled diet if pt becomes hyperglycemic Will offer Boost Glucose Control & Hungarian yogurt per request Nutrition Services to follow [...] She then underwent a second LLE bypass WOMEN'S STUDIES PROFESSOR to PT with PTFE, on 05-26. This was found to be occluded on 06-01. Since that time the patient has had progressive worsening of her medial/distal surgical incision that has failed to heal. Procedures: 07/24: LLE guillotine amp, removal PTFE graft, wound vac, bovine patch WOMEN'S STUDIES PROFESSOR 07/27: Wound vac change, sartorious flap coverate for patched femoral artery Recent events/symptoms: OR yesterday Pain increased, needed to adjust TRAVELING AUDITOR No BM x4 days Currently feeling well w/o nausea or abdominal pain. Moderate LLE pain relieved with TRAVELING AUDITOR. O: Last value Range last 24hrs Temperature [...] amputation LLE with removal of thrombosed/infected L WOMEN'S STUDIES PROFESSOR-PT PTFE bypass graft, and debridement of L WOMEN'S STUDIES PROFESSOR artery with repair of bovine pericardial patch POD#1 from sartorious flap coverage of exposed WOMEN'S STUDIES PROFESSOR. Increased pain today from surgery, moderately controlled with TRAVELING AUDITOR. As she hasn't had a BM in [...] nutritious fluids not just liquid 3. Continue TRAVELING AUDITOR for pain control 4. PT/OT. Activity ad timothy. 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 Will reassess if this does not keep her comfortable. ?? Pain control needs adjusting - described above ?? Hemodynamically stable. ?? UOP adequate, continue to monitor. ?? Continue post-op plan per primary team. BOGDAN CAZARES MD 07/27/2015 10:03 PM Haley Narayanan RN - 07/27/2015 6:29 PM EST 1730 Pt arrived back to 81A ISCU. 1800 MD team @ BS, new orders [...] She then underwent a second LLE bypass WOMEN'S STUDIES PROFESSOR to PT with PTFE, on 05-26. This [...] abdominal pain. Moderate LLE pain relieved with TRAVELING AUDITOR. O: Last value Range last 24hrs Temperature [...] amputation LLE with removal of thrombosed/infected L WOMEN'S STUDIES PROFESSOR-PT PTFE bypass graft, and debridement of L WOMEN'S STUDIES PROFESSOR artery with repair of bovine pericardial patch. [...] OR today for sartorious flap coverage of WOMEN'S STUDIES PROFESSOR and application of wound vac. Will re-evaluate anahi pearl, most likely will not convert to formal amputation today, although she is consented for a BKA or AKA. PLAN 07/27: 1. Continue to hold Vanc. Zosyn. As above will consult ID for help with abx in light of PANDA. 2. OR today for sart flap and washout 3. 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 She is Yazidi, values her brigida yet has not had a good health to practice. Assessment: She was scheduled for some surgery which was postponed for today. Intervention and Outcome: Provided pastoral/supportive presence & prayers for God's healing care with the Sacrament of theSick. Follow-up: Yes Time in Direct Care: 25 mins Brigido Littlejohn 07/27/2015 Mariano Chapman MD - 07/26/2015 3:15 PM EST INPATIENT [...] She then underwent a second LLE bypass WOMEN'S STUDIES PROFESSOR to PT with PTFE, on 05-26. This [...] amputation LLE with removal of thrombosed/infected L WOMEN'S STUDIES PROFESSOR-PT PTFE bypass graft, and debridement of L WOMEN'S STUDIES PROFESSOR artery with repair of bovine pericardial patch. Overall she is doing well, however her Cr has bumped from 0.3-->0.9-->1.45 indicative of PANDA from supratherapeutic vancomycin. Last night her vanc trough was 23.2. We will continue to give MIVF to help perfuse her kidneys and hopefully decrease any further injury. Plan for the OR today for sartorious flap coverage of WOMEN'S STUDIES PROFESSOR and application of wound vac. Will re-evaluate guillotine amp, most likely will not convert to formal amputation today. PLAN 07/26: 1. Continue to hold Vanc. Zosyn. Per OSH records, patient growing pseudomonas and S.aureus in ankle wound senstive to Zosyn and Vancomycin respectively. 2. OR today for sart flap and washout MARIANO MIRAMONTES MD 07/26/2015 Vascular Surgery, PGY-1 Pager: [phone] Mariano Miramontes MD - 07/25/2015 4:17 PM [...] She then underwent a second LLE bypass WOMEN'S STUDIES PROFESSOR to PT with PTFE, on 05-26. This was found to be occluded on 06-01. Since that time the patient has had progressive worsening of her medial/distal surgical incision that has failed to heal. Recent events/symptoms: OR yesterday for LLE guillotine amputation Stable overnight O: Last value Range last 24hrs Temperature Temp: 36.6 ??C (97.9 ??F) Temp: [36.6 ??C (97.9 ??F)-37.2 ??C (99 ??F)] Heart Rate Heart Rate: 75 Heart Rate: [71-85] Blood Pressure BP: 103/59 mmHg BP: (103-132)/(40-63) Respiratory Rate Resp: 12 Resp: [9-18] SpO2 SpO2: 95 % SpO2: [93 %-99 %] 07/24 0701 - 07/25 0700 In: 4112.2 [P.O.:400; I.V.:3709.2] Out: 1100 [Urine:450] Carb Control diet / CHO counting level 2 NPO diet (Give [...] Drips: Recent Labs 07/25/15 0201 07/24/15 0503 07/23/152049 WBC 14.1* 8.9 8.8 HGB 9.4* 9.3* [...] amputation LLE with removal of thrombosed/infected L WOMEN'S STUDIES PROFESSOR-PT PTFE bypass graft, and debridement of L WOMEN'S STUDIES PROFESSOR artery with repair of bovine pericardial patch. Today her Cr is elevated after getting supratherapeutic Vancomycin (trough 26.8). PLAN 07/25: 1. Stop Vanc and remeasure trough this evening. Restart at much lower dose as determined by pharmacy. Continue Zosyn. Will attempt to obtain culture and sensitivity results from [facility] [place] [place] to better guide therapy. 2. Cr 0.3-->0.9. Will give MIVF and continue to follow 3. NPO @AL for OR tomorrow MARIANO MIRAMONTES MD 07/25/2015 Vascular Surgery, PGY-1 Pager: [phone] Kelsi Marks RN - 07/25/2015 2:23 PM EST Office of Care Management (OCM) / Resin Remover(CM)/ Initial Assessment Discussed patient with Provider Team [...] CURRENT HOME/COMMUNITY SERVICES/EQUIPMENT: DME: Home Health Agency: 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 Jamila Boyd [facility] - 07/25/2015 11:24 AM EST Clinical Pharmacist Note-Vanc Chan Hurst [id number] 1950 Chan Hurst is a 64 y.o. [...] have. Alternately, during off-hours you may call [phone] to contact a pharmacist. JAMILA BOYD [facility] Pager [phone] Rachelle López MD - 07/24/2015 5:56 PM EST Post-Operative Progress Note Patient: Chan Hurst s/p Surgery: 07/24/2015 [id number] Procedure(s) (LRB): @AMPUTATION, BELOW-KNEE, OPEN, GUILLOTINE (Left) [...] answers orientation questions but is still drowsy. CUSTOMER SUCCESS SPECIALIST reported that pt was slow towake up. [...] ICU or will get an ISCU room. Marinao Miramontes MD - 07/24/2015 12:06 PM EST INPATIENT [...] She then underwent a second LLE bypass WOMEN'S STUDIES PROFESSOR to PT with PTFE, on 05-26. This was found to be occluded on 06-01. Since that time the patient has had progressive worsening of her medial/distal surgical incision that has failed to heal. Recent events/symptoms: Transferred from [facility] Quite sedated at first due to morphine/ativan [...] [97 %-98 %] 07/23 0701 - 07/24 07 In: 973 [P.O.:120; I.V.:605] Out: 475 [Urine:475] [...] lower extremity. She has been treated at [facility] [place] [place] since 07/20 with IV Vanc and ceftaz for MRSA and pseudomonas infection in LLE. As there is no further ability to revascularize leg will proceed with guillotine amputation LLE with planned subsequent revision. As above TcP02 are adequate to heal a BKA. PLAN 07/24: 1. Continue IV Vanc/Zosyn 2. OR Today for L guillotine amputation MARIANO MIRAMONTES MD 07/24/2015 Vascular Surgery, PGY-1 Pager: [phone] Estrellita Wilson RN - 07/23/2015 7:49 PM EST Details from [facility] report: -NKDA - Planned BKA tomorrow for [...] lantus PM -pulses dopplerable and marked Estrellita Wilson RN - 07/23/2015 6:49 PM EST Report received form [facility]. Pt admitted to floor via stretcher [...] Admission Note Patient Name: Chan Hurst : [id number] MR#: [id number] 07/23/2015 Hospital Day 0 days HPI: 64yo [...] She then underwent a second LLE bypass WOMEN'S STUDIES PROFESSOR to PT with PTFE, on 05-26. This was found to be occluded on 06-01. Since that time the patient has had progressive worsening of her medial/distal surgical incision that has failed to heal. With no additional revasc options she was offered opportunity to enrol in stemcell trial, but declined. 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 On 07-20-15 she present to [facility] with SIRS physiology, felt to be related to her leg wound. She declined transfer to [facility] for amputation at that time and was [...] at 72y. Father at age 72 from [place]. Two sisters, overweight, but otherwise healthy. One [...] to the planned procedure. Hand Hygiene: The operations support representative did perform hand hygiene prior to line insertion. Catheter type: PICC Lot number: [id number] Procedure Technique: Skin was prepped with chlorhexidine. [...] Miscellaneous Notes Plan of Care - Javier Flores, RN - 08/03/2015 12:33 PM EST Problem: Health Knowledge, Opportunity for Enhanced (Adult, NICU, , Obstetrics, Pediatric) Goal: Knowledgeable about Health Subject/Topic Patient will demonstrate the desired outcomes. Outcome: Outcome (s) achieved Date Met: 08/03/15 Peripherally Inserted Central Catheter (PICC) Teaching Sheet Peripherally inserted central catheters ([id number]) (PICC) are used when you need IV [...] midline catheter? PICC lines are used for rn long term care treatments. PICC lines may be used for [...] can be set up via the nurse Resin Remover to help you. What are possible complications [...] Efficacy, Safety, Use, and Administration of [employer], [employer] 2005 [facility] - Vijaya Sweeney RN - 08/03/2015 4:28 AM EST Problem: General Plan of Care Goal: Plan of Care Review Outcome: Ongoing (Interventions Implemented as Appropriate) 07/29/15 0502 08/02/152199 Plan of Care Review Plan of Care [...] 1-2 person assist with ADLs Surveillance: Hourly roundingjose alejandro CPG OUTCOME EVALUATION: Goal: Individualization and Mutuality [...] Outcome: Ongoing (Interventions Implemented as Appropriate) 07/29/15 05008/02/15 0830 Plan of Care Review Plan of [...] Outcome: Ongoing (Interventions Implemented as Appropriate) 08/01/15 1958 08/02/15 0830 Safety Interventions Isolation Precautions standard precautions [...] No pillow beneath) Intervention: Oral Nutrition Promotion 08/01/15804 Nutrition Interventions Oral Nutrition Promotion diet liberalized [...] elevated;quiet environment promoted Intervention: O2 Consumption Minimization 07/28/15 08 Cardiac Interventions O2 Consumption Minimization activity scheduled;activity adjusted to patient tolerance;low stimulation maintained;sleep/rest promoted Intervention: Functional [place] Promotion 08/01/152021 Musculoskeletal Interventions Functional [place] Promotion adaptive equipment provided;independence in BADLs promoted;instruction [...] (Interventions Implemented as Appropriate) 07/29/15 0502 07/31/15 2300 Plan of Care Review Plan of Care [...] person assist with ADLs Surveillance: Hourly rounding, jose alejandro CPG OUTCOME EVALUATION: Goal: Individualization and Mutuality Outcome: Ongoing (Interventions Implemented as Appropriate) Goal: Infection Control Outcome: Ongoing (Interventions Implemented as Appropriate) 07/31/15 2200 07/31/15 2300 Safety Interventions Isolation Precautions standard precautions maintained;contact [...] progress toward outcome Initial Assessments - Debi Dubon, OT - 07/31/2015 5:16 PM EST Occupational [...] Ligation and removal of thrombosed, infected left WOMEN'S STUDIES PROFESSOR-PT PTFE bypass graft. ?? 5. Placement of [...] CONDUIT ([place] [address]) performed by Mariano Doyle MD at [facility] OR ??? Pro bypass graft othr, fem-tibial Left 05/26/2015 @BYPASS GRAFT, FEM-ANT TIBIAL, -POST TIBIAL, -PERONEAL, -DP W\ SYNTHETIC CONDUIT performed by Mariano Doyle MD at [facility] OR ??? Pro bypass graft vein patch/cuff, synthetic Left 05/26/2015 PLACEMENT VEIN PATCH OR CUFF AT DISTAL ANASTOMOSIS OF BYPASS GRAFT, SYNTHETIC CONDUIT , RODRIGUEZ-COLLAR, RACHELLE-PATCH, ADD-ON CODE, LOWER EXTREMITY performed by Mariano Doyle MD at [facility] OR ??? Pro thromboendartectmy iliofemoral Left 05/26/2015 @ENDARTERECTOMY, ILIOFEMORAL W OR W/O PATCH GRAFT performed by Mariano Doyle MD at [facility] OR ??? Pro reoperation, bypass graft Left 05/26/2015 @RE-OP FOR RE-DO LOWER EXTREMITY BYPASS GRAFT, >1 MONTH P\ ORIGINAL SURGERY, ADD-ON CODE performed by Mariano Doyle MD at [facility] OR ??? Pro amputation low leg, circular Left 07/24/2015 @AMPUTATION, BELOW-KNEE, OPEN, GUILLOTINE performed by Elicia Caal MD at [facility] OR ??? Pro exploration, femoral artery Left 07/24/2015 @EXPLORATION, W/WO LYSIS, FEMORAL ARTERY W\O SURGICAL REPAIR performed by Elicia Caal MD at [facility] OR ??? Pro negative pressure wound therapy, less than or equal to 50 sqcm Left 07/24/2015 DRESSING CHANGE (VAC ASSISTED) UP TO 50SQ.CM performed by Elicia Caal MD at [facility] OR ??? Pro rebl ves direct, low extrem Left 07/24/2015 REPAIR LOWER EXTREMITY BLOOD VESSEL, DIRECT, NO PATCH OR GRAFT performed by Elicia Caal MD at [facility] OR ??? Pro excision, infec graft, extremity Left 07/24/2015 EXCISION OF INFECTED GRAFT FROM LOWER EXTREMITY performed by Elicia Caal MD at [facility] OR ??? Pro muscle-skin flap, leg Left 07/27/2015 FLAP, MYOCUTANEOUS OR FASCIOCUTANEOUS, LOWER EXTREMITY performed by Elicia Caal MD at [facility] OR ? ? Pro debridement subcutaneous tissue 20 sqcm/< Left 07/27/2015 DEBRIDEMENT SKIN AND SUBCU, LOWER EXTREMITY performed by Elicia Caal MD at [facility] OR ??? Left 07/27/2015 MODIFIER WOUND VAC performed by Elicia Caal MD at [facility] OR Social History: Patient lives with her [...] right slipper Toileting ?? Had transferred [facility] with nursing IADLs: ?? Will [...] minutes Total timed interventions: 0 minutes Pager: [phone] DEBI DUBON OT 07/31/2015 Occupational Therapy Rehabilitation Department Op Note - Juliano Allen - 07/29/2015 2:00 PM EST [facility] Operative Note Patient Name: Chan Hurst : 1950 MR#: [id number] Case Date: 07/29/2015 Date of Operation: 07/29/2015. [...] Operative Note Patient Name: Chan Hurst : [id number] MR#: [id number] Case Date: 07/29/2015 Surgeon: Surgeon(s) and Role: [...] Drains: Drain/Device Site 07/24/15 Left medial calf Success (Active) Insertion Site dressing intact 07/29/2015 8:00 [...] been stable overnight. Pain well controlled with TRAVELING AUDITOR pump and PRN tylenol and oxycodone.She did complain of some pain in her amputated leg while being repositioned. I encouraged her to push her TRAVELING AUDITOR button to receive pain medication. NPO for [...] MRSA and pseudomonas. she was transferred to [facility] for further evaluation and underwent BKA of [...] CONDUIT ([place] [id number]) performed by Mariano Doyle MD at [facility] OR ??? Pro bypass graft othr, fem-tibial Left 05/26/2015 @BYPASS GRAFT, FEM-ANT TIBIAL, -POST TIBIAL, -PERONEAL, -DP W\ SYNTHETIC CONDUIT performed by Mariano Doyle MD at [facility] OR ??? Pro bypass graft vein patch/cuff, synthetic Left 05/26/2015 PLACEMENT VEIN PATCH OR CUFF AT DISTAL ANASTOMOSIS OF BYPASS GRAFT, SYNTHETIC CONDUIT , RODRIGUEZ-COLLAR, RACHELLE-PATCH, ADD-ON CODE, LOWER EXTREMITY performed by Mariano Doyle MD at [facility] OR ??? Pro thromboendartectmy iliofemoral Left 05/26/2015 @ENDARTERECTOMY, ILIOFEMORAL W OR W/O PATCH GRAFT performed by Mariano Doyle MD at [facility] OR ??? Pro reoperation, bypass graft Left 05/26/2015 @RE-OP FOR RE-DO LOWER EXTREMITY BYPASS GRAFT, >1 MONTH P\ ORIGINAL SURGERY, ADD-ON CODE performed by Mariano Doyle MD at [facility] OR ??? Pro amputation low leg, circular Left 07/24/2015 @AMPUTATION, BELOW-KNEE, OPEN, GUILLOTINE performed by Elicia Caal MD at [facility] OR ??? Pro exploration, femoral artery Left 07/24/2015 @EXPLORATION, W/WO LYSIS, FEMORAL ARTERY W\O SURGICAL REPAIR performed by Elicia Caal MD at [facility] OR ??? Pro negative pressure wound therapy, less than or equal to 50 sqcm Left 07/24/2015 DRESSING CHANGE (VAC ASSISTED) UP TO 50SQ.CM performed by Elicia Caal MD at [facility] OR ??? Pro rebl ves direct, low extrem Left 07/24/2015 REPAIR LOWER EXTREMITY BLOOD VESSEL, DIRECT, NO PATCH OR GRAFT performed by Elicia Caal MD at [facility] OR ??? Pro excision, infec graft, extremity Left 07/24/2015 EXCISION OF INFECTED GRAFT FROM LOWER EXTREMITY performed by Elicia Caal MD at [facility] OR ??? Pro muscle-skin flap, leg Left 07/27/2015 FLAP, MYOCUTANEOUS OR FASCIOCUTANEOUS, LOWER EXTREMITY performed by Elicia Caal MD at [facility] OR ? ? Pro debridement subcutaneous tissue 20 sqcm/< Left 07/27/2015 DEBRIDEMENT SKIN AND SUBCU, LOWER EXTREMITY performed by Elicia Caal MD at [facility] OR ??? Left 07/27/2015 MODIFIER WOUND VAC performed by Elicia Caal MD at [facility] OR Family History Problem Relation Age of Onset ??? Type 2 Diabetes Sister ??? Type 2 Diabetes Mother ??? Type 2 Diabetes Father ??? Coronary Artery Disease Father ??? Coronary Artery Disease Mother Social History Narrative Lives with significant other Ranch style home Outpatient medications: Current Facility-Administered Medications [...] days Hb 9 K 3.9 BUN 20 bluing oven tender 1.85 FeNa 1.3 vanco level 26.8 from [...] w/ Dr. Ritesh Moise Nephrology Fellow Pager [phone] Renal Attending Inpatient Consult We are asked [...] of this patient Initial Assessments - Anabel Vela, PT - 07/28/2015 12:15 PM EST Physical Therapy Evaluation Patient profile: Pt. is a 64 y.o. female admitted on 07/23/[address] Caal, Elicia Uriarte, * in transfer from [facility] for Vascular service consult who presents now with wet gangreneof the left lower extremity. 07-24-15: OR Procedure(s): 1. Left below-knee guillotine amputation 2. Incision and drainage of multiple LLE abscesses 3. Left common femoral artery exposure, debridement and repair with bovine pericardial patch. 4. Ligation and removal of thrombosed, infected left WOMEN'S STUDIES PROFESSOR-PT PTFE bypass graft. ?? 5. Placement of [...] She then underwent a second LLE bypass WOMEN'S STUDIES PROFESSOR to PT with PTFE, on 05-26. This was found to be occluded on 06-01. Since that time the patient has had progressive worsening of her medial/distal surgical incision that has failed to heal. With no additional revasc options she was offered opportunity to enrol in stemcell trial, but declined. 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 On 07-20-[address] [facility] [place] [place] with SIRS physiology, felt to be related to her leg wound. She declined transfer to [facility] for amputation at that time and was [...] CONDUIT ([place] [id number]) performed by Mariano Doyle MD at [facility] OR ??? Pro bypass graft othr, fem-tibial Left 05/26/2015 @BYPASS GRAFT, FEM-ANT TIBIAL, -POST TIBIAL, -PERONEAL, -DP W\ SYNTHETIC CONDUIT performed by Mariano Doyle MD at [facility] OR ??? Pro bypass graft vein patch/cuff, synthetic Left 05/26/2015 PLACEMENT VEIN PATCH OR CUFF AT DISTAL ANASTOMOSIS OF BYPASS GRAFT, SYNTHETIC CONDUIT , MICHAEL-RACHELLE WINN-PATCH, ADD-ON CODE, LOWER EXTREMITY performed by Mariano Doyle MD at [facility] OR ??? Pro thromboendartectmy iliofemoral Left 05/26/2015 @ENDARTERECTOMY, ILIOFEMORAL W OR W/O PATCH GRAFT performed by Maraino Doyle MD at [facility] OR ??? Pro reoperation, bypass graft Left 05/26/2015 @RE-OP FOR RE-DO LOWER EXTREMITY BYPASS GRAFT, >1 MONTH P\ ORIGINAL SURGERY, ADD-ON CODE performed by Mariano Doyle MD at [facility] OR ??? Pro amputation low leg, circular Left 07/24/2015 @AMPUTATION, BELOW-KNEE, OPEN, GUILLOTINE performed by Elicia Caal MD at [facility] OR ??? Pro exploration, femoral artery Left 07/24/2015 @EXPLORATION, W/WO LYSIS, FEMORAL ARTERY W\O SURGICAL REPAIR performed by Elicia Caal MD at [facility] OR ??? Pro negative pressure wound therapy, less than or equal to 50 sqcm Left 07/24/2015 DRESSING CHANGE (VAC ASSISTED) UP TO 50SQ.CM performed by Elicia Caal MD at [facility] OR ??? Pro rebl ves direct, low extrem Left 07/24/2015 REPAIR LOWER EXTREMITY BLOOD VESSEL, DIRECT, NO PATCH OR GRAFT performed by Elicia Caal MD at [facility] OR ??? Pro excision, infec graft, extremity Left 07/24/2015 EXCISION OF INFECTED GRAFT FROM LOWER EXTREMITY performed by Elicia Caal MD at [facility] OR Social History: Patient lives in [place], [place]. Lives with boyfriend. Boyfriend works so [...] in chair to eat lunch. Discussed with air traffic instructor back to bed later from the chair: [...] Evaluatin Total timed interventions: 0 minutes ANABEL VELA, PT 07/28/2015 Pager: [phone] Physical Therapy Rehabilitation Department Consult Note - [...] concern for kenneth wrap to LLE, per boarding room fixer removed and re-dressed by surgery. Dressing intact at time of assessment and being managed by vascular surgery. Explained purpose of visit and pt agreed to assessment. Pt turned self to left side with minassist. Pt used TRAVELING AUDITOR prior to turn. Sacral mepilex dressing removed. [...] Please contact DONITA AGRAWAL RN on pager [phone] or the wound care team at [phone] or pager [phone] with skin and wound care concerns or [...] sacrum. Pain seemed to me managed with TRAVELING AUDITOR. Did not need additional interventions for pain [...] Mutuality Outcome: Ongoing (Interventions Implemented as Appropriate) 07/24/154 Mutuality/Individual Preferences What anxieties, fears or concerns [...] Precautions/Fall Reduction -- environmental modification;fall reduction program maintained Andino Fall Risk History of Falling 0 [...] Ongoing (Interventions Implemented as Appropriate) 07/24/15 0425 01/6 07/24/15 0458 Discharge Needs Assessment Concerns to [...] CPG) Outcome: Ongoing (Interventions Implemented as Appropriate) 07/25/15182507/26/151839 Lower Extremity Amputation Problems Assessed (Lower Extremity [...] Outcome: Ongoing (Interventions Implemented as Appropriate) 07/27/15 0507/27/15799 Plan of Care Review Plan of Care Outcome Status ongoing (interventions implemented as appropriate) -- Progress progress toward functional goals as expected -- Coping/Psychosocial Response Interventions Plan of Care Reviewed with -- patient Goal: Individualization and Mutuality Outcome: Ongoing (Interventions Implemented as Appropriate) 07/24/15 042 Mutuality/Individual Preferences What anxieties, fears or concerns do you have about your health or care? nothing verbalized What questions do you have about your health or care? nothing verbalized What information would help us give you more personalized care? none verbalized Goal: Fall Prevention-Safe Patient Handling Outcome: Ongoing (Interventions Implemented as Appropriate) 07/27/15 0807/27/15 1100 Safety Interventions Safety Precautions/Fall Reduction -- environmental modification;fall reduction program maintained;family at bedside;lighting adjusted for task/safety;low bed Andino Fall Risk History of Falling 0 -- Secondary Diagnosis 15 -- Ambulatory Aids 0 -- Intravenous Therapy/Heparin/Saline Lock 20 -- Gait/Transferring 10 -- Mental Status 0 -- Score 45 -- Activity and Safety Assistive Device Oxygen -- OTHER Adnino Fall Risk High -- Musculoskeletal Interventions Activity/Level of Assistance bed rest -- Positioning HOB up 30 degrees -- Self-Care Promotion bathing assistance provided;hygiene assistance provided -- Goal: Infection Control Outcome: Ongoing (Interventions Implemented as Appropriate) 07/27/1579907/27/15 1100 Safety Interventions Isolation Precautions -- standard precautions maintained Infection Prevention hydration promoted;environmental surveillance;promote handwashing;rest/sleep promoted -- Coping/Psychosocial Response Interventions Counseling calming techniques promoted;emotional support provided;reassurance provided -- Goal: Discharge Needs Assessment Outcome: Ongoing (Interventions Implemented as Appropriate) 07/24/1542407/24/15 04507/24/15 045 Discharge Needs Assessment Concerns to be Addressed [...] patient;turn sheet used;turned/repositioned Intervention: Oral Nutrition Promotion 07/27/15799 Nutrition Interventions Oral Nutrition Promotion oral hygiene [...] OUTCOME SUMMARY: To OR today, see note. TRAVELING AUDITOR for pain mgmt. Vac Dsg to -125 @ change of shift. Diet advanced, tolerated well. PLAN MOVING FORWARD: wound vac, pain mgmt, ? Return to OR INDIVIDUALIZED FALL PREVENTION: Assistance: bedrest Supervision: By RN station, tele, spo2 Surveillance: Bed alarm CPG GOAL OUTCOME EVALUATION: Op Note - Juliano Allen - 07/27/2015 2:46 PM EST [facility] Operative Note Patient Name: Chan Hurst : 1950 MR#: [id number] Case Date: 07/27/2015 Date of Operation: 07/27/2015. [...] Operative Note Patient Name: Chan Hurst : [id number] MR#: [id number] Case Date: 07/27/2015 Surgeon: Surgeon(s) and Role: [...] revealed MRSA and pseudomonas,she was transferred to [facility] for further evaluation. At [facility] she was started on iv vancomycin and pip tazo, evaluated by vascular surgery taken to OR on 07/24/15 s/p guillotine BKA of left LE with large amounts of purulent drainage expressed from the graft tunnel,incision was extended along medial calf s/p removal of PTFE graft and bovine patch debrided til WOMEN'S STUDIES PROFESSOR and new bovine patch,small collection in left [...] Vancomycin Sensitive Imaging: No new imaging at [facility] Impression:Chan Hurst is a 64 y.o. female with above mentioned multiple comorbidities p/w leftfoot wet gangrene to OSH with septic physiology wound cx yielded MRSA and pseudomonas,[facility].At [facility] she was initiated on iv vancomycin and [...] will continue to follow the patient,please page [phone] with questions Above recommendations were communicated with the primary team x Recommendations discussed with primary team. Consult service will continue to follow patient. Recommendations discussed with primary team. ID will sign off. Please page [phone] if further consultation required. Case discussed with ID attending Dr.Talbot NOLBERTO STARKEY MD, Fellow, Infectious Disease Pager [phone] Infectious Diseases Attending I saw the patient with the infectious diseases fellow, and agree with the presentation of data and the assessment and plan as outlined above. Karen Thornton MD Legal Librarian Page [phone] 35 minutes of this 55 minute visit [...] effectively managed with PRN oxycodone and dilaudid TRAVELING AUDITOR. NPO at midnight and maintenance fluids at 50 cc/hr. L. Groin wound vac with approx 100 cc serosangoutput. PLAN MOVING FORWARD: OR today, pain control, SBP <150 INDIVIDUALIZED FALL PREVENTION: Assistance: 2 assist with turn/repo Supervision: Per Rn Surveillance: [facility] [place]ALUATION: Plan of Care - Josephine [...] of the day and easily arousible. Using TRAVELING AUDITOR appropriately, given prn oxycodone for pain managment. Continues to report pain in leg but falls aseep easily; pain associated with movement of leg. Requires 02. Given bowel meds. Danika burleson. changed leg dressing at 1845 tonight due [...] Mutuality Outcome: Ongoing (Interventions Implemented as Appropriate) 07/24/15423 Mutuality/Individual Preferences What anxieties, fears or concerns [...] Outcome: Ongoing (Interventions Implemented as Appropriate) 07/26/15 0807/26/15 1800 Safety Interventions Isolation Precautions -- standard precautions maintained Infection Prevention blood glucose management;bronchial hygiene promoted;environmental surveillance;promote handwashing;rest/sleep promoted -- Coping/Psychosocial Response Interventions Counseling calming techniques promoted;relaxation techniques promoted;reassurance provided -- Goal: Discharge Needs Assessment Outcome: Ongoing (Interventions Implemented as Appropriate) 07/24/1542407/24/1545507/24/15457 Discharge Needs Assessment Concerns to be Addressed [...] CPG) Outcome: Ongoing (Interventions Implemented as Appropriate) 07/25/15182507/26/151839 Lower Extremity Amputation Problems Assessed (Lower Extremity [...] fatigue/weakness;sleep pattern alteration Consult Note - Bao Kumar PharmD - 07/26/2015 7:43 AM EST Clinical Pharmacist Note-Vanc Chan Mcguire Aris [id number] 1950 Chan Cedeños is a 64 y.o. female is being [...] have. Alternately, during off-hours you may call [phone] to contact a pharmacist. BAO KUMAR, HONORIO Pager [phone] Plan of Care - Angelika Fox RN - 07/25/2015 6:46 PM EST Problem: General Plan of Care Goal: Plan of Care Review Outcome: Ongoing (Interventions Implemented as Appropriate) 07/25/151825 Plan of Care Review Plan of Care [...] output averaging 15-25 ml/hr in AM - B. MD Kulwinder notified and 1 [address] [...] would complain of LLE pains - reinforced TRAVELING AUDITOR education and administered PRN tylenol with good effect. Neurovascular assessments remain unchanged as documented in adult patient care summary. PLAN MOVING FORWARD: ~NPO at midnight in anticipation of OR washout tomorrow ~Reinforce TRAVELING AUDITOR education for pain management and supplement with [...] Chela Blancas - 07/24/2015 5:05 PM EST [facility] Operative Note Patient Name: Chan Hurst : [id number] MR#: [id number] Case Date: 07/24/2015 Case Date: 07/24/2015 Surgeon: [...] Ligation and removal of thrombosed, infected left WOMEN'S STUDIES PROFESSOR-PT PTFE bypass graft. ?? 5. Placement of [...] ligated and resected; bovine pericardial patch resected, WOMEN'S STUDIES PROFESSOR debrided and repaired with new bovine pericardial [...] She then underwent a second LLE bypass WOMEN'S STUDIES PROFESSOR to PT with PTFE, on 05-26. This [...] graft must be explanted and the left WOMEN'S STUDIES PROFESSOR be explored. Hemostasis of the amputation site [...] through copious scar tissue onto the EIA, WOMEN'S STUDIES PROFESSOR, PTFE bypass graft with underlying bovine patch; [...] was removed sharply with an 11-blade. The WOMEN'S STUDIES PROFESSOR was debrided sharply with the 11-blade, back to healthy appearing tissue. The wound and graft tunnel were aggressively irrigated. The artery was then repaired with bovine pericardial patch angioplasty using 6-0 prolene in a running fashion. All vessels were unclamped. Doppler signals were confirmed in WOMEN'S STUDIES PROFESSOR and profunda artery. Thrombin-soaked gelfoam was applied [...] Operative Note Patient Name: Chan Hurst : [id number] MR#: [id number] Case Date: 07/24/2015 Surgeon: Surgeon(s) and Role: [...] Ligation and removal of thrombosed, infected left WOMEN'S STUDIES PROFESSOR-PT PTFE bypass graft. 5. Placement of wound [...] ligated and resected; bovine pericardial patch resected, WOMEN'S STUDIES PROFESSOR debrided and repaired with new bovine pericardial [...] Control Outcome: Ongoing (Interventions Implemented as Appropriate) 07/23/15199907/24/15 0458 Safety Interventions Isolation Precautions -- standard precautions maintained Infection Prevention -- blood glucose management;environmental surveillance Coping/Psychosocial Response Interventions Counseling calming techniques promoted;emotional support provided -- Goal: Discharge Needs Assessment Outcome: Ongoing (Interventions Implemented as Appropriate) 07/24/15 0425 07/24/15 0458 Discharge Needs Assessment Concerns to [...] Diagnosis LAB SCAN 08/04/2015 12:00 AM EST CHEMICAL RECLAMATION EQUIPMENT OPERATOR SCAN 08/04/2015 12:[address] PICC [...] TYPE AND SCREEN Routine 08/02/2015 8:27 AM ([facility]) EST PREPARE RBC Routine 08/02/2015 8:15 AM [...] the results section. POCT GLUCOSE Routine 07/27/2015 11:44 Results for [...] TYPE AND SCREEN Routine 07/26/2015 4:25 PM ([facility]) EST BASIC METABOLIC PANEL STAT 07/26/2015 4:15 [...] n the results section. POCT GLUCOSE Routine 07/24/2015 7:29 AM Results [...] documented in this encounter Results SCAN DOC: CHEMICAL RECLAMATION EQUIPMENT OPERATOR (08/04/2015 12:00 AM EST) Narrative This result has an attachment that is no t available. Scanning Provider MEDIA MGR SCAN EXT ORDR/RSLT SCAN DOC: LAB (08/04/2015 12:00 AM EST) Narrative This result has an attachment that is no t available. Scanning Provider MEDIA MGR SCAN EXT ORDR/RSLT Place PICC Line: Contact Vascular Access Page [phone] Extremity to exclude: No restrictions; Is PICC [...] the planned procedu re. Hand Hygiene: The operations support representative did perform hand hygiene pr ior to line insertion. Catheter type: PICC Lot number: [id number] Procedure Technique: Skin was prepped with chlorhexidine. [...] CARE TEST ORDERABLE S Performing Organization Address City/[facility]/[place] [address] CERNER MILLENNIUM POCT Glucose [...] Organization Address City/State/[place] [address] CERNER MILLENNIUM (ABNORMAL) Differential, Automated (08/03/2015 4:40 AM EST) [facility] gist Method Time Signature Neutrophils % 79.1 [...] Organization Address City/State/[place] [address] CERNER MILLENNIUM (ABNORMAL) Hemogram [...] Organization Address City/State/ZIP Code Phon e Number [place] [phone] CERNER MILLENNIUM (ABNORMAL) Basic [...] intervals supplied above were not validated at [facility]. Results from pediatri c patients should be [...] the following links into your internet browser. [email or web address] Specimen Anatomical Collection Method Collection Time Receive d Time (Source) Location / / Volume Laterality Blood specimen 08/03/2015 4:40 AM 016 4:57 (specimen) EST AM EST Resulting Agency Comment Spec In Lab Elicia Caal MD CHEMISTRY ORDERABLES Performing Organization Address City/[facility] Phon e Number [address] CERNER MILLENNIUM POCT Glucose [...] CARE TEST ORDERABLE S Performing Organization Address City/[facility] [place] [address] CERNER MILLENNIUM POCT Glucose [...] CARE TEST ORDERABLE S Performing Organization Address City/[facility]/ZIP Code Phon e Number [address] CERNER MILLENNIUM POCT Glucose (08/02/2015 7:17 PM EST) athologist Signature POC Glucose 181 65 - 199 CERNER mg/dL [facility] Comment: Supplemental ranges: <140 mg/dL before meals <180 mg/dL all other times of the day Specimen Anatomical Collection Method Collection Time Receive d Time (Source) Location / / Volume Laterality Blood specimen 08/02/2015 7:17 PM 016 7:17 (specimen) EST PM EST Elicia Caal MD POINT OF CARE TEST ORDERABLE S Performing Organization Address [facility]/ZIP Code Phon e Number [address] CERNER MILLENNIUM (ABNORMAL) POCT Glucose (08/02/2015 4:32 PM EST) athologist Signature POC Glucose 223 (H) 65 - 199 CERNER mg/dL [facility] Comment: Supplemental ranges: <140 mg/dL before meals <180 mg/dL all other times of the day Specimen Anatomical Collection Method Collection Time Receive d Time (Source) Location / / Volume Laterality Blood specimen 08/02/2015 4:32 PM 016 4:32 (specimen) EST PM EST Elicia Caal MD POINT OF CARE TEST ORDERABLE S Performing Organization Address City/[facility]/[place] [address] CERNER MILLENNIUM U24 Hrs and Volume (08/02/2015 12:35 PM EST) P athologist Signature Hours 24 hour(s) CERNER Collected MILLENNIUM Urine TV (ml) 1,275 mL CERNER MILLENNIUM Specimen Anatomical Collection Method Collection Time Receive d Time (Source) Location / / Volume Laterality Urine specimen 08/02/2015 12:35 6 1:28 (specimen) PM EST PM EST Resulting Agency Comment Spec In Lab Karen Pierre MD CHEMISTRY ORDERABLES Performing Organization Address City/State/[place] [address] CERNER MILLENNIUM (ABNORMAL) Creatinine Clearance, [...] Pierre MD URINE ORDERABLES Performing Organization Address City/[facility]/ZIP Code Phon e Number [address] CERNER MILLENNIUM Transfuse RBC (08/02/2015 11:58 AM EST) Elicia Caal MD NURSING TREATMENT ORDERABLES - BLOOD ADMIN Transfuse RBC (08/02/2015 11:58 AM EST) Elicia Caal MD NURSING TREATMENT ORDERABLES - BLOOD ADMIN (ABNORMAL) POCT Glucose (08/02/2015 11:55 AM EST) P athologist Signature POC Glucose 213 (H) 65 - 199 CERNER mg/dL [facility] Comment: Supplemental ranges: <140 mg/dL before meals <180 mg/dL all other times of the day Specimen Anatomical Collection Method Collection Time Receive d Time (Source) Location / / Volume Laterality Blood specimen 08/02/2015 11:55 6 (specimen) AM EST 11:55 AM EST Elicia Caal MD POINT OF CARE TEST ORDERABLE S Performing Organization Address City/[facility]/[place] [address] CERNER MILLENNIUM Antibody screen (08/02/2015 8:27 AM EST) Patholo gist Method Time Signature Ab Screen Negative CERNER Interp [facility] Expires at 08/05/2015 [facility] [id number] on: MILLENNIUM Specimen Anatomical Collection Method Collection Time Receive d Time (Source) Location / / Volume Laterality Blood specimen 08/02/2015 8:27 AM 016 8:33 (specimen) EST AM EST Resulting Agency Comment Spec In Lab Elicia Caal MD BLOOD BANK ORDERABLES Performing Organization Address City/[facility]/[place] [address] [facility] ABO/Rh Typing (08/02/2015 8:27 AM EST) P athologist Signature ABORh Type A Neg [facility] Specimen Anatomical Collection Method Collection Time Receive d Time (Source) Location / / Volume Laterality Blood specimen 08/02/2015 8:27 AM 016 8:33 (specimen) EST AM EST Resulting Agency Comment Spec In Lab Elicia Caal MD BLOOD BANK ORDERABLES Performing Organization Address City/[facility]/ZIP Code Phon e Number [address] [facility] Prepare RBC (08/02/2015 8:15 AM EST) P athologist Signature Dispensed? Yes [facility] Specimen Anatomical Collection Method Collection Time Receive d Time (Source) Location / / Volume Laterality Blood specimen 08/02/2015 8:15 AM 016 8:14 (specimen) EST AM EST Resulting Agency Comment Spec In Lab Elicia Caal MD BLOOD BANK ORDERABLES Performing Organization Address City/[facility] [place] [address] [facility] POCT Glucose (08/02/2015 7:02 AM EST) P athologist Signature POC Glucose 184 65 - 199 [facility] mg/dL [facility] Comment: Supplemental ranges: <140 mg/dL before meals <180 mg/dL all other times of the day Specimen Anatomical Collection Method Collection Time Receive d Time (Source) Location / / Volume Laterality Blood specimen 08/02/2015 7:02 AM 016 7:02 (specimen) EST AM EST Elicia Caal MD POINT OF CARE TEST ORDERABLE S Performing Organization Address City/[facility]/ZIP Code Phon e Number [address] CERNER MILLENNIUM (ABNORMAL) Differential, Automated (08/02/2015 5:05 AM EST) [facility] gist Method Time Signature Neutrophils % 81.0 % [...] Caal MD HEMATOLOGY ORDERABLES Performing Organization Address City/[facility]/[place] [address] CERNER MILLENNIUM (ABNORMAL) Hemogram [...] Organization Address City/State/[place] [address] CERNER MILLENNIUM (ABNORMAL) Basic [...] intervals supplied above were not validated at [facility]. Results from pediatri c patients should be [...] the following links into your internet browser. [email or web address] Specimen Anatomical Collection Method Collection Time Receive d Time (Source) Location / / Volume Laterality Blood specimen 08/02/2015 5:05 AM 016 5:21 (specimen) EST AM EST Resulting Agency Comment Spec In Lab Elicia Caal MD CHEMISTRY ORDERABLES Performing Organization Address City/State/ZIP Code Phon e Number [place] [phone] CERNER MILLENNIUM POCT Glucose [...] CARE TEST ORDERABLE S Performing Organization Address City/[facility]/ZIP Code Phon e Number [address] CERNER MILLENNIUM POCT Glucose [...] CARE TEST ORDERABLE S Performing Organization Address City/[facility]/ZIP Code Phon e Number [address] CERNER MILLENNIUM (ABNORMAL) POCT Glucose (08/01/2015 6:52 PM EST) P athologist Signature POC Glucose 230 (H) 65 [...] Organization Address City/State/[place] [address] CERNER MILLENNIUM (ABNORMAL) POCT [...] CARE TEST ORDERABLE S Performing Organization Address City/[facility]/ZIP Code Phon e Number [address] [facility] Cystatin C (08/01/2015 1:50 PM EST) athologist Signature Cystatin C 1.22 0.66 - 1.26 CERNER mg/L [facility] Comment: Test Performed by: [facility] [place] [address] Preparation Center Coordinator: Bharat Campos II, M.D., Ph.D. Cystatin C eGFR 55 >60 mL/min/BSA [facility] Comment: ADDITIONAL INFORMATIO N Cystatin C-based eGFR may differ substan tially from creatinine-based eGFR in patients with a bnormal muscle mass or acutely changing renal function. ??Pl ease interpret together with relevant clinical features . Test Performed by: [facility] [place] [address] Preparation Center Coordinator: Bharat Campos II, M.D., Ph.D. Specimen Anatomical Collection Method Collection Time Receive d Time (Source) Location / / Volume Laterality Blood specimen 08/01/2015 1:50 PM 016 3:31 (specimen) EST PM EST Resulting Agency Comment Spec In Lab Karen Pierre MD CHEMISTRY ORDERABLES Performing Organization Address City/[facility]/ZIP Code Phon e Number [address] [facility] ([facility] POCT Glucose (08/01/2015 12:29 PM EST) athologist Signature POC Glucose 209 (H) 65 - 199 CERNER mg/dL [facility] Comment: Supplemental ranges: <140 mg/dL before meals <180 mg/dL all other times of the day Specimen Anatomical Collection Method Collection Time Receive d Time (Source) Location / / Volume Laterality Blood specimen 08/01/2015 12:29 6 (specimen) PM EST 12:29 PM EST Elicia Caal MD POINT OF CARE TEST ORDERABLE S Performing Organization Address City/State/ZIP Code Phon e Number [facility] [place] [address] Symtavision XR Chest Routine PA & Lateral (08/01/2015 [...] ? COMPAR[facility]: [facility] FINDINGS: Fine reticular markings in the [...] hest. COMPARISON: 07/20/2015 [facility]. FINDINGS: Fine reticular markings in the [...] Organization Address City/State/[place] [address] CERNER MILLENNIUM (ABNORMAL) Differential, [...] Caal MD HEMATOLOGY ORDERABLES Performing Organization Address City/[facility]/[place] [address] CERNER MILLENNIUM (ABNORMAL) Hemogram [...] Caal MD HEMATOLOGY ORDERABLES Performing Organization Address City/[facility]/[place] [address] CERNER MILLENNIUM (ABNORMAL) Basic Metabolic Panel (non-fasting) (08/01/2015 4:39 AM EST) athologist Signature Glucose Lvl 193 65 - 199 CERNER mg/dL [facility] Comment: Diabetes: >=200 mg/dL plus symp toms BUN 22 (H) 8 - 18 mg/dL CERNER MILLENNIUM Creatinine 1.34 (H) 0.70 - 1.20 mg/dL CERNER MILL ENNI[facility] Comment: Please note that the pediatric reference intervals supplied above were not validated at [facility]. Results from pediatri c patients should be [...] the following links into your internet browser. [email or web address] Specimen Anatomical Collection Method Collection Time Receive d Time (Source) Location / / Volume Laterality Blood specimen 08/01/2015 4:39 AM 016 4:53 (specimen) EST AM EST Resulting Agency Comment Spec In Lab Elicia Caal MD CHEMISTRY ORDERABLES Performing Organization Address City/State/[place] [address] CERNER MILLENNIUM (ABNORMAL) POCT [...] CARE TEST ORDERABLE S Performing Organization Address City/[facility]/ZIP Code Phon e Number [address] CERNER MILLENNIUM (ABNORMAL) POCT Glucose (07/31/2015 4:37 PM EST) P athologist Signature POC Glucose 237 (H) 65 [...] CARE TEST ORDERABLE S Performing Organization Address City/[facility]/[place] [address] CERNER MILLENNIUM (ABNORMAL) POCT [...] CARE TEST ORDERABLE S Performing Organization Address City/[facility]/ZIP Code Phon e Number [address] CERNER MILLENNIUM (ABNORMAL) POCT Glucose (07/31/2015 12:46 PM EST) P athologist Signature POC Glucose 272 (H) 65 - 199 CERNER mg/dL [facility] Comment: Supplemental ranges: <140 mg/dL before meals <180 mg/dL all other times of the day Specimen Anatomical Collection Method Collection Time Receive d Time (Source) Location / / Volume Laterality Blood specimen 07/31/2015 12:46 6 (specimen) PM EST 12:46 PM EST Elicia Caal MD POINT OF CARE TEST ORDERABLE S Performing Organization Address [facility]/ZIP Code Phon e Number [address] CERNER MILLENNIUM C. Difficile Screen (07/31/2015 12:46 PM EST) Analysis Performed At [facility] Time Signature C Diff Screen Negative Negative CERNER MILLENNIUM Specimen Anatomical Collection Method Collection Time Receive d Time (Source) Location / / Volume Laterality Stool specimen 07/31/2015 12:46 6 1:15 (specimen) PM EST PM EST Resulting Agency Comment Spec In Lab Elicia Caal MD MICROBIOLOGY - GENERAL ORDER STAN Performing Organization Address City/[facility]/ZIP Code Phon e Number [address] CERNER MILLENNIUM (ABNORMAL) POCT Glucose (07/31/2015 12:44 PM EST) P athologist Signature POC Glucose 271 (H) 65 - 199 CERNER mg/dL [facility] Comment: Supplemental ranges: <140 mg/dL before meals <180 mg/dL all other times of the day Specimen Anatomical Collection Method Collection Time Receive d Time (Source) Location / / Volume Laterality Blood specimen 07/31/2015 12:44 6 (specimen) PM EST 12:44 PM EST Elicia Caal MD POINT OF CARE TEST ORDERABLE S Performing Organization Address City/[facility]/[place] [address] CERNER MILLENNIUM Urine culture (07/31/2015 9:50 AM EST) [facility] Method Time Signature Urine Culture No growth [...] Organization Address City/State/[place] [address] CERNER MILLENNIUM (ABNORMAL) Urinalysis with reflex Culture (07/31/2015 9:50 AM EST) [facility] Method Time Signature Glucose UA 150 (A) [...] UA Clear Clear CERNER MILLENNIU M Spec [place]edar UA 1.005 1.002 - 1.030 CERNER MIL [...] Caal MD URINE ORDERABLES Performing Organization Address City/State/[facility] Code Phon e Number [place] [phone] CERNER MILLENNIUM (ABNORMAL) Differential, Automated (07/31/2015 7:29 AM EST) [facility] Method Time Signature Neutrophils % 89.5 % [...] Caal MD HEMATOLOGY ORDERABLES Performing Organization Address City/[facility]/ZIP [facility] [place] [address] CERNER MILLENNIUM (ABNORMAL) Hemogram (07/31/2015 7:29 AM EST) P athologist Signature WBC 21.4 (H) 4.0 - [...] Caal MD HEMATOLOGY ORDERABLES Performing Organization Address City/[facility]/ZIP Code Phon e Number [address] CERNER MILLENNIUM (ABNORMAL) Basic Metabolic Panel (non-fasting) (07/31/2015 7:29 AM EST) P athologist Signature Glucose Lvl 215 (H) 65 - 199 CERNER mg/dL [facility] Comment: Diabetes: >=200 mg/dL plus symp toms BUN 21 (H) 8 - 18 mg/dL CERNER MILLENNIUM Creatinine 1.38 (H) 0.70 - 1.20 mg/dL CERNER MILL ENNIUM Comment: Please note that the pediatric reference intervals supplied above were not validated at [facility]. Results from pediatri c patients should be [...] the following links into your internet browser. [email or web address] Specimen Anatomical Collection Method Collection Time Receive d Time (Source) Location / / Volume Laterality Blood specimen 07/31/2015 7:29 AM 016 7:36 (specimen) EST AM EST Resulting Agency Comment Spec In Lab Elicia Caal MD CHEMISTRY ORDERABLES Performing Organization Address City/State/[place] [address] CERNER MILLENNIUM (ABNORMAL) POCT [...] Organization Address City/State/ZIP Code Phon e Number [address] CERNER MILLENNIUM (ABNORMAL) POCT [...] CARE TEST ORDERABLE S Performing Organization Address City/[facility]/ZIP Code Phon e Number [address] CERNER MILLENNIUM POCT Glucose [...] Organization Address City/State/ZIP Code Phon e Number [address] CERNER MILLENNIUM (ABNORMAL) POCT [...] Organization Address City/State/ZIP Code Phon e Number [address] CERNER MILLENNIUM (ABNORMAL) POCT [...] CARE TEST ORDERABLE S Performing Organization Address City/[facility]/ZIP Code Phon e Number [address] CERNER MILLENNIUM POCT Glucose [...] Organization Address City/State/ZIP Code Phon e Number [address] CERNER MILLENNIUM (ABNORMAL) Differential, Automated (07/30/2015 8:11 AM EST) [facility] gist Method Time Signature Neutrophils % 82.3 [...] Organization Address City/State/[place] [address] CERNER MILLENNIUM (ABNORMAL) Hemogram [...] Organization Address City/State/[place] [address] CERNER MILLENNIUM (ABNORMAL) Basic [...] intervals supplied above were not validated at [facility]. Results from pediatri c patients should be [...] the following links into your internet browser. [email or web address] Specimen Anatomical Collection Method Collection Time Receive d Time (Source) Location / / Volume Laterality Blood specimen 07/30/2015 8:11 AM 016 8:16 (specimen) EST AM EST Resulting Agency Comment Spec In Lab Elicia Caal MD CHEMISTRY ORDERABLES Performing Organization Address City/State/ZIP Code Phon e Number [address] CERNER MILLENNIUM (ABNORMAL) POCT Glucose (07/30/2015 7:55 AM EST) athologist Signature POC Glucose 215 (H) 65 - 199 CERNER mg/dL [facility] Comment: Supplemental ranges: <140 mg/dL before meals <180 mg/dL all other times of the day Specimen Anatomical Collection Method Collection Time Receive d Time (Source) Location / / Volume Laterality Blood specimen 07/30/2015 7:55 AM 016 7:55 (specimen) EST AM EST Elicia Caal MD POINT OF CARE TEST ORDERABLE S Performing Organization Address City/State/[place] [address] CERNER MILLENNIUM POCT Glucose (07/29/2015 4:08 PM EST) athologist Signature POC Glucose 176 65 - 199 CERNER mg/dL [facility] Comment: Supplemental ranges: <140 mg/dL before meals <180 mg/dL all other times of the day Specimen Anatomical Collection Method Collection Time Receive d Time (Source) Location / / Volume Laterality Blood specimen 07/29/2015 4:08 PM 016 4:08 (specimen) EST PM EST Elicia Caal MD POINT OF CARE TEST ORDERABLE S Performing Organization Address City/[facility]/ZIP Code Phon e Number [address] [facility] POCT Glucose (07/29/2015 1:27 PM EST) athologist Signature POC Glucose 163 65 - 199 CERNER mg/dL [facility] Comment: Supplemental ranges: <140 mg/dL before meals <180 mg/dL all other times of the day Specimen Anatomical Collection Method Collection Time Receive d Time (Source) Location / / Volume Laterality Blood specimen 07/29/2015 1:27 PM 016 1:27 (specimen) EST PM EST Elicia Caal MD POINT OF CARE TEST ORDERABLE S Performing Organization Address City/[facility]/ZIP Code Phon e Number [address] [facility] Surgical Pathology Report (07/29/2015 12:34 PM EST) Component Value Ref Test Analysis Performed At [facility] Range Method Time [facility] Surgical [id number] ? Location: [facility]; [facility]; [facility] Pathology [facility] Report The signing pathologist has (i) examined the relevant preparation(s) for the specimen(s) and (ii) rendered or confirmed the diagnosis(es) . . ?Surgic al Pathology DIAGNOSIS A - Left above the knee amputation revision, s/p left guil lotine amputation 1 - Distal ulcer with acute cellulitis and distal osteomyeli tis 08/04/15 VAM 08/04/15 Verified by: ? Amol Reis MD ?Pathologist [...] MD PATHOLOGY/CYTOLOGY ORDERABLE S Performing Organization Address City/[facility]/[place] [address] [facility] Specimen to Pathology (surgical or derm) (07/29/2015 12:34 PM EST) Specimen Anatomical Collection Method Collection Time Receive d Time (Source) Location / / Volume Laterality AP Specimen 07/29/2015 12:34 07/29/2015 PM EST 12:34 PM EST Narrative CERNER MILLENNIUM - 07/29/2015 12:34 PM EST Specimen requisition ordered. ??Separate Pathology report to follow Elicia Caal MD PATHOLOGY/CYTOLOGY ORDERABLE S Performing Organization Address City/[facility]/ZIP Code Phon e Number [address] [facility] POCT Glucose (07/29/2015 11:40 AM EST) P [...] CARE TEST ORDERABLE S Performing Organization Address [facility]/ZIP Code Phon e Number [address] [facility] MILLENNIUM (ABNORMAL) POCT Glucose (07/29/2015 7:45 AM EST) P athologist Signature POC Glucose 210 (H) 65 - 199 CERNER mg/dL MILLENNIUM [...] Organization Address City/State/[place] [address] D[facility] Duplex Study Renal Arteries, Bilat (07/29/2015 6:46 AM EST) Component Value Ref Test Analysis Performed At [facility] gist Range Method Time Signature VB Text Department: Vascular Surgery Lab [facility] Report Patient: [id number] (CHAN HURST) CPT: 84617 ICD10: I70.1 Referring Physician: ELICIA CAAL ?? Phone: Indications: 64 year old female with acute kidney injury, ? 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 PSV (cm/s): 100 ? EDV (cm/s): 12 ? RI: 0.89 Renal Artery Proximal, Right ? PSV (cm/s): 123 ? EDV (cm/s): 25 ? RAR-WY: 1.2 ? RI: 0.80 Renal Artery Mid, Right ? PSV (cm/s): 155 ? EDV (cm/s): 27 ? RAR-WY: 1.6 ? RI: 0.82 Renal Artery Distal, Right ? PSV (cm/s): 116 ? EDV (cm/s): 19 ? RAR-WY: 1.2 ? RI: 0.84 Mid Pole Renal [...] (cm/s): 239 ? EDV (cm/s): 32 ? RAR-WY: 2.4 ? RI: 0.87 Renal Artery Mid, Left ? PSV (cm/s): 147 ? EDV (cm/s): 24 ? RAR-WY: 1.5 ? RI: 0.84 Renal Artery Distal, Left ? PSV (cm/s): 90 ? EDV (cm/s): 18 ? RAR-WY: 0.9 ? RI: 0.80 Mid Pole Renal [...] Organization Address City/State/ZIP Code Phon e Number [place] [phone]OS[address] CERNER MILLENNIUM (ABNORMAL) Differential, [...] Caal MD HEMATOLOGY ORDERABLES Performing Organization Address City/[facility]/ZIP Code Phon e Number [address] CERNER MILLENNIUM (ABNORMAL) Hemogram (07/29/2015 [...] Caal MD HEMATOLOGY ORDERABLES Performing Organization Address City/[facility]/ZIP Code Phon e Number [address] CERNER MILLENNIUM (ABNORMAL) Basic [...] intervals supplied above were not validated at [facility]. Results from pediatri c patients should be [...] the following links into your internet browser. [email or web address] Specimen Anatomical Collection Method Collection Time Receive d Time (Source) Location / / Volume Laterality Blood specimen 07/29/2015 2:13 AM 016 2:25 (specimen) EST AM EST Resulting Agency Comment Spec In Lab Elicia Caal MD CHEMISTRY ORDERABLES Performing Organization Address City/State/[place] [address] CERNER MILLENNIUM (ABNORMAL) POCT Glucose (07/28/2015 7:48 PM EST) athologist Signature POC Glucose 229 (H) 65 [...] Organization Address City/State/ZIP Code Phon e Number [address] CERNER MILLENNIUM (ABNORMAL) POCT [...] Organization Address City/State/ZIP Code Phon e Number [address] CERNER MILLENNIUM (ABNORMAL) POCT [...] Address City/State/ZIP Code Phon e Number [place] [address] [facility] MILL[facility]EL [facility] POCT Glucose (07/28/2015 7:46 AM EST) athologist Signature POC Glucose 167 65 - 199 CERNER mg/dL [facility] Comment: Supplemental ranges: <140 mg/dL before meals <180 mg/dL all other times of the day Specimen Anatomical Collection Method Collection Time Receive d Time (Source) Location / / Volume Laterality Blood specimen 07/28/2015 7:46 AM 016 7:46 (specimen) EST AM EST Elicia Caal MD POINT OF CARE TEST ORDERABLE S Performing Organization Address City/[facility]/ZIP [facility] Phon e Number [address] [facility] TSH (07/28/2015 7:37 AM EST) athologist Signature TSH 0.98 0.27 - 4.20 CERNER mcIU/mL [facility] Specimen Anatomical Collection Method Collection Time Receive d Time (Source) Location / / Volume Laterality Blood specimen 07/28/2015 7:37 AM 016 7:44 (specimen) EST AM EST Resulting Agency Comment Spec In Lab Elicia Caal MD CHEMISTRY ORDERABLES Performing Organization Address City/[facility]/ZIP Code Phon e Number [address] [facility] (ABNORMAL) Prealbumin (07/28/2015 7:37 AM EST) athologist Signature Prealbumin 10 (L) 20 - 40 CERNER mg/dL [facility] Comment: Prealbumin levels are generally lower in the pediatric population; adult concentrations are usually attained near puberty. Specimen Anatomical Collection Method Collection Time Receive d Time (Source) Location / / Volume Laterality Blood specimen 07/28/2015 7:37 AM 016 7:44 (specimen) EST AM EST Resulting Agency Comment Spec In Lab Elicia Caal MD CHEMISTRY ORDERABLES Performing Organization Address City/[facility]/ZIP [facility] Phon e Number [address] [facility] (ABNORMAL) Hepatic Function Panel (07/28/2015 7:37 AM EST) P athologist Signature Total Protein 4.8 (L) 6.1 [...] Caal MD CHEMISTRY ORDERABLES Performing Organization Address City/[facility]/ZIP Code Phon e Number [address] CERNER MILLENNIUM Electrolytes, urine, [...] Organization Address City/State/ZIP Code Phon e Number [address] CERNER MILLENNIUM Creatinine, urine, random (07/28/2015 7:31 AM EST) P athologist Signature U Creatinine 62 mg/dL CERNER MILLENNIUM Specimen Anatomical Collection Method Collection Time Receive d Time (Source) Location / / Volume Laterality Urine specimen 07/28/2015 7:31 AM 016 8:21 (specimen) EST AM EST Resulting Agency Comment Spec In Lab Elicia Caal MD URINE ORDERABLES Performing Organization Address City/State/ZIP Code Phon e Number [address] CERNER MILLENNIUM (ABNORMAL) Differential, Automated (07/28/2015 4:30 AM EST) [facility] gist Method Time Signature Neutrophils % 77.4 % [...] Organization Address City/State/ZIP Code Phon e Number [address] CERNER MILLENNIUM (ABNORMAL) Hemogram [...] Organization Address City/State/[place] [address] CERNER MILLENNIUM (ABNORMAL) Basic [...] intervals supplied above were not validated at [facility]. Results from pediatri c patients should be [...] the following links into your internet browser. [email or web address] Specimen Anatomical Collection Method Collection Time Receive d Time (Source) Location / / Volume Laterality Blood specimen 07/28/2015 4:30 AM 016 4:40 (specimen) EST AM EST Resulting Agency Comment Spec In Lab Elicia Caal MD CHEMISTRY ORDERABLES Performing Organization Address City/State/[place] [address] CERNER MILLENNIUM POCT Glucose [...] CARE TEST ORDERABLE S Performing Organization Address City/[facility]/ZIP Code Phon e Number [address] CERNER MILLENNIUM POCT Glucose (07/27/2015 5:58 PM EST) P athologist Signature POC Glucose 172 65 - [...] CARE TEST ORDERABLE S Performing Organization Address City/[facility]/ZIP Code Phon e Number [address] CERNER MILLENNIUM CK (07/27/2015 5:10 PM EST) P athologist Signature CK, Total 98 0 - 160 CERNER unit/L [facility] Specimen Anatomical Collection Method Collection Time Receive d Time (Source) Location / / Volume Laterality Blood specimen 07/27/2015 5:10 PM 016 5:29 (specimen) EST PM EST Resulting Agency Comment Spec In Lab Elicia Caal MD CHEMISTRY ORDERABLES Performing Organization Address City/[facility]/ZIP Code Phon e Number [address] CERNER MILLENNIUM POCT Glucose (07/27/2015 3:52 PM EST) P athologist Signature POC Glucose 156 65 - [...] Organization Address City/State/ZIP Code Phon e Number [address] CERNER MILLENNIUM POCT Glucose (07/27/2015 11:44 AM EST) P athologist Signature POC Glucose 173 65 - [...] CARE TEST ORDERABLE S Performing Organization Address City/[facility]/ZIP Code Phon e Number [address] CERNER MILLENNIUM (ABNORMAL) POCT [...] CARE TEST ORDERABLE S Performing Organization Address City/[facility]/[place] [address] CERNER MILLENNIUM (ABNORMAL) Differential, Automated (07/27/2015 5:12 AM EST) [facility] gist Method Time Signature Neutrophils % 86.7 [...] Organization Address City/State/ZIP Code Phon e Number [place] [phone] CERNER MILLENNIUM (ABNORMAL) Hemogram [...] Organization Address City/State/ZIP Code Phon e Number [place] [phone] CERNER MILLENNIUM (ABNORMAL) Basic [...] intervals supplied above were not validated at [facility]. Results from pediatri c patients should be [...] the following links into your internet browser. [email or web address] Specimen Anatomical Collection Method Collection Time Receive d Time (Source) Location / / Volume Laterality Blood specimen 07/27/2015 5:12 AM 016 5:22 (specimen) EST AM EST Resulting Agency Comment Spec In Lab Elicia Caal MD CHEMISTRY ORDERABLES Performing Organization Address [facility] Phon e Number [address] [facility] IntellioneENNIUM Vancomycin, trough (07/26/2015 10:01 PM EST) P athologist Signature Vanc Trough 18.6 mg/L [facility] Comment: Therapeutic range for complicated infect ions [...] / / Volume Laterality Blood specimen 07/26/2015 10:01 6 (specimen) PM EST 10:07 PM EST Resulting Agency Comment Spec In Lab Elicia Caal MD CHEMISTRY ORDERABLES Performing Organization Address [facility] Phon e Number [address] [facility] IntellioneENNIUM Antibody screen (07/26/2015 4:25 PM EST) Patholo gist Method Time Signature Ab Screen Negative [facility] IntellioneENNIUM Expires at 07/29/2015 CERNER 2359 on: MILLENNIUM Specimen Anatomical Collection Method Collection Time Receive d Time (Source) Location / / Volume Laterality Blood specimen 07/26/2015 4:25 PM 016 4:25 (specimen) EST PM EST Resulting Agency Comment Spec In Lab Elicia Caal MD BLOOD BANK ORDERABLES Performing Organization Address City/[facility]/[place] [address] CERNER MILLENNIUM ABO/Rh Typing (07/26/2015 4:25 PM EST) athologist Signature ABORh Type A Neg CERNER MILLENNIUM Specimen Anatomical Collection Method Collection Time Receive d Time (Source) Location / / Volume Laterality Blood specimen 07/26/2015 4:25 PM 016 4:25 (specimen) EST PM EST Resulting Agency Comment Spec In Lab Elicia Caal MD BLOOD BANK ORDERABLES Performing Organization Address City/[facility] [place] [address] [facility] MILLENNIUM (ABNORMAL) Basic Metabolic Panel (non-fasting) (07/26/2015 4:15 PM EST) athologist Signature Glucose Lvl 176 65 - 199 CERNER mg/dL MILLENNIUM Comment: Diabetes: >=200 mg/dL plus symp toms BUN 17 8 - 18 mg/dL CERNER MILLENNIUM Creatinine 1.67 (H) 0.70 - 1.20 mg/dL CERNER MILL ENNIUM Comment: Please note that the pediatric reference intervals supplied above were not validated at [facility]. Results from pediatri c patients should be [...] 20 (L) 22 - 31 mmol/L CERNER MILLENNI UM Anion Gap 18 (H) 5 - 15 mmol/L CERNER MILLENNIU M Calcium 7.5 (L) 8.5 - 10.5 mg/dL CERNER [place] [...] the following links into your internet browser. [email or web address] Specimen Anatomical Collection Method Collection Time Receive d Time (Source) Location / / Volume Laterality Blood specimen 07/26/2015 4:15 PM 016 4:27 (specimen) EST PM EST Resulting Agency Comment Spec In Lab Elicia Caal MD CHEMISTRY ORDERABLES Performing Organization Address City/[facility]/ZIP Code Phon e Number [address] CERNER MILLENNIUM POCT Glucose (07/26/2015 3:38 PM EST) P athologist Signature POC Glucose 154 65 - 199 CERNER mg/dL MILLENNIUM Comment: Supplemental ranges: <140 mg/dL before meals <180 mg/dL all other times of the day Specimen Anatomical Collection Method Collection Time Receive d Time (Source) Location / / Volume Laterality Blood specimen 07/26/2015 3:38 PM 016 3:38 (specimen) EST PM EST Elicia Caal MD POINT OF CARE TEST ORDERABLE S Performing Organization Address City/[facility]/ZIP Code Phon e Number [address] CERNER MILLENNIUM POCT Glucose [...] CARE TEST ORDERABLE S Performing Organization Address City/[facility]/ZIP [facility] Phon e Number [address] CERNER MILLENNIUM POCT Glucose [...] CARE TEST ORDERABLE S Performing Organization Address City/[facility]/[place] [address] CERNER MILLENNIUM (ABNORMAL) Differential, Automated (07/26/2015 1:40 AM EST) [facility] gist Method Time Signature Neutrophils % 75.6 [...] IG's will be scanned manually for concor danbora. If this scan disagrees with the automated [...] Organization Address City/State/[place] [address] CERNER MILLENNIUM (ABNORMAL) Hemogram [...] Organization Address City/State/[place] [address] CERNER MILLENNIUM (ABNORMAL) Basic [...] intervals supplied above were not validated at [facility]. Results from pediatri c patients should be [...] the following links into your internet browser. [email or web address] Specimen Anatomical Collection Method Collection Time Receive d Time (Source) Location / / Volume Laterality Blood specimen 07/26/2015 1:40 AM 016 1:44 (specimen) EST AM EST Resulting Agency Comment Spec In Lab Elicia Caal MD CHEMISTRY ORDERABLES Performing Organization Address [facility] Phon e Number [address] CERNER MILLENNIUM Vancomycin, trough (07/25/2015 10:00 PM EST) P athologist Signature Vanc Trough 23.2 mg/L CERNER MILLENNIUM Comment: Therapeutic range for complicated infect ions such as bacteremia, endocarditis, osteomyelitis, meningitis, and hospital- acquired pneumonia caused by S. aureus: 15-20 mg/L Therapeutic range for other indications: 10-15 mg/L Toxic: >25 mg/L Reference: Vancomycin Therapeutic Monitoring: Cesar w and Recommendations from the ASHP, IDSA and SIDP Task Force. ??Am J Health- Syst Pharm. 2009; 66:82-98 Specimen Anatomical Collection Method Collection Time Receive d Time (Source) Location / / Volume Laterality Blood specimen 07/25/2015 10:00 6 (specimen) PM EST 10:10 PM EST Resulting Agency Comment Spec In Lab Elicia Caal MD CHEMISTRY ORDERABLES Performing Organization Address [facility] Phon e Number [address] CERNER MILLENNIUM POCT Glucose [...] Organization Address City/State/[place] [address] CERNER MILLENNIUM POCT Glucose [...] Organization Address City/State/ZIP Code Phon e Number [address] CERNER MILLENNIUM POCT Glucose [...] Organization Address City/State/[place] [address] CERNER MILLENNIUM (ABNORMAL) Vancomycin, trough (07/25/2015 10:28 AM EST) P athologist Signature Vanc Trough 26.8 mg/L CERNER (Critical) MILLENNIUM Comment: Called by: donell, Read back by:iraj stewart rn _, Date/Time:07/25/15 [...] This re-calibration was mandated by the assay mechanical and auto body car checker and was needed to bring the Vancomycin concentrations into better alignment with other Vancomy alan assay. Specimen Anatomical Collection Method Collection Time Receive d Time (Source) Location / / Volume Laterality Blood specimen 07/25/2015 10:28 6 (specimen) AM EST 10:33 AM EST Resulting Agency Comment Spec In Lab Elicia Caal MD CHEMISTRY ORDERABLES Performing Organization Address City/[facility] Phon e Number [address] CERNER MILLENNIUM POCT Glucose [...] CARE TEST ORDERABLE S Performing Organization Address City/[facility] Phon e Number [address] CERNER MILLENNIUM Nucleated Red [...] Organization Address City/State/ZIP Code Phon e Number [address] CERNER MILLENNIUM (ABNORMAL) Differential, Automated (07/25/2015 2:01 AM EST) [facility] Method Time Signature Neutrophils % 85.8 % [...] Organization Address City/State/ZIP Code Phon e Number [address] CERNER MILLENNIUM (ABNORMAL) Hemogram [...] Organization Address City/State/[place] [address] CERNER MILLENNIUM (ABNORMAL) Basic [...] intervals supplied above were not validated at [facility]. Results from pediatri c patients should be [...] the following links into your internet browser. [email or web address] Specimen Anatomical Collection Method Collection Time Receive d Time (Source) Location / / Volume Laterality Blood specimen 07/25/2015 2:01 AM 016 2:29 (specimen) EST AM EST Resulting Agency Comment Spec In Lab Elicia Caal MD CHEMISTRY ORDERABLES Performing Organization Address City/State/[place] [address] CERNER MILLENNIUM POCT Glucose (07/24/2015 3:33 PM EST) P athologist Signature POC Glucose 155 65 - 199 CERNER mg/dL MILLENNIUM Comment: Supplemental ranges: <140 mg/dL before meals <180 mg/dL all other times of the day Specimen Anatomical Collection Method Collection Time Receive d Time (Source) Location / / Volume Laterality Blood specimen 07/24/2015 3:33 PM 016 3:33 (specimen) EST PM EST Elicia Caal MD POINT OF CARE TEST ORDERABLE S Performing Organization Address City/State/ZIP Code Phon e Number [place] [phone] CERNER MILLENNIUM (ABNORMAL) BLOOD [...] 3.4 (L) 3.5 - 5.0 mmol/L CERNER ME LLENNIUM Comment: Please note: Patients with WBC >100,000 may have falsely elevated Potassium levels. Contact the Clinical Chemistry L aboratory if there are any questions. ICa Whole Blood 1.31 1.15 - 1.33 mmol/L CERNE R MILLENNIUM Comment: Note: ??Total bilirubin higher than 20 m g/dL may lead to falsely low ionized calcium. CL Whole Blood 101 98 - 107 mmol/L CERNER ME LLENNIUM Gluc Whole Bld 148 65 - 199 mg/dL CERNER MIL LENNIUM Comment: Diabetes: >=200 mg/dL plus symp toms. Specimen Anatomical Collection Method Collection Time Receive d Time (Source) Location / / Volume Laterality Blood specimen 07/24/2015 2:32 PM 016 2:32 (specimen) EST PM EST Elicia Caal MD CHEMISTRY ORDERABLES Performing Organization Address City/State/ZIP Code Phon e Number [place] [phone] CERNER MILLENNIUM (ABNORMAL) BLOOD [...] 3.4 (L) 3.5 - 5.0 mmol/L CERNER ME LLENNIUM Comment: Please note: Patients with WBC >100,000 may have falsely elevated Potassium levels. Contact the Clinical Chemistry L aboratory if there are any questions. ICa Whole Blood 1.09 (L) 1.15 - 1.33 mmol/L CERNE R MILLENNIUM Comment: Note: ??Total bilirubin higher than 20 m g/dL may lead to falsely low ionized calcium. CL Whole Blood 101 98 - 107 mmol/L CERNER ME LLENNIUM Gluc Whole Bld 148 65 - 199 mg/dL CERNER MIL LENNIUM Comment: Diabetes: >=200 mg/dL plus symp toms. Specimen Anatomical Collection Method Collection Time Receive d Time (Source) Location / / Volume Laterality Blood specimen 07/24/2015 1:41 PM 016 1:41 (specimen) EST PM EST Elicia Caal MD CHEMISTRY ORDERABLES Performing Organization Address City/State/ZIP Code Phon e Number [place] [phone] CERNER MILLENNIUM (ABNORMAL) BLOOD [...] 3.4 (L) 3.5 - 5.0 mmol/L CERNER ME LLENNIUM Comment: Please note: Patients with WBC >100,000 may have falsely elevated Potassium levels. Contact the Clinical Chemistry L aboratory if there are any questions. ICa Whole Blood 1.10 (L) 1.15 - 1.33 mmol/L CERNE R MILLENNIUM Comment: Note: ??Total bilirubin higher than 20 m g/dL may lead to falsely low ionized calcium. CL Whole Blood 102 98 - 107 mmol/L CERNER ME LLENNIUM Gluc Whole Bld 144 65 - 199 mg/dL CERNER [facility] LENUM Comment: Diabetes: >=200 mg/dL plus symp toms. Specimen Anatomical Collection Method Collection Time Receive d Time (Source) Location / / Volume Laterality Blood specimen 07/24/2015 12:55 6 (specimen) PM EST 12:55 PM EST Elicia Caal MD CHEMISTRY ORDERABLES Performing Organization Address City/[facility] [place] [address] CERNER MILLENNIUM Anaerobic Culture (07/24/2015 12:00 PM EST) [employer] Method Time Signature Anaerobic No anaerobic CERNER Culture organisms MILLENNIUM isolated Specimen Anatomical Collection Method Collection Time Receive d Time (Source) Location / / Volume Laterality Specimen of 07/24/2015 12:00 07/24/2015 unknown material PM EST 12:59 PM ES T (specimen) Comment: LEFT GROIN ASPIRATION. Resulting Agency Comment Spec In Lab Elicia Caal MD MICROBIOLOGY - GENERAL ORDER STAN Performing Organization Address City/[facility] [place] [address] CERNER MILLENNIUM (ABNORMAL) Body fluid culture (07/24/2015 12:00 PM EST) Component Value Ref Test Analysis Performed At dVisit Range Method Time Signature Body Fluid Rare [...] Comment: Gentamicin is not a ppropriate for [place]-therapy. Staphylococcus aureus, mrsa Levofloxacin MICROSCAN METHOD Sen [...] Organization Address City/State/[place] [address] [facility] Surgical Pathology Report (07/24/2015 11:26 AM EST) Component Value Ref Test Analysis Performed At [facility] Range Method Time Signature Surgical [id number] ? Location: [facility]; [facility]; [facility] Pathology [facility] Report The signing pathologist has (i) [...] MD PATHOLOGY/CYTOLOGY ORDERABLE S Performing Organization Address City/[facility]/ZIP Code Phon e Number [address] [facility] CAPOENNIUM Specimen to Pathology (surgical or derm) (07/24/2015 11:26 AM EST) Specimen Anatomical Collection Method Collection Time Receive d Time (Source) Location / / Volume Laterality AP Specimen 07/24/2015 11:26 07/24/2015 AM EST 11:26 AM EST Narrative CERNER MILLENNIUM - 07/24/2015 11:26 AM EST Specimen requisition ordered. ??Separate Pathology report to follow Elicia Caal MD PATHOLOGY/CYTOLOGY ORDERABLE S Performing Organization Address City/[facility]/[place] [address] CERNER MILLENNIUM POCT Glucose (07/24/2015 7:29 AM EST) athologist Signature POC Glucose 161 65 - 199 CERNER mg/dL [facility] Comment: Supplemental ranges: <140 mg/dL before meals <180 mg/dL all other times of the day Specimen Anatomical Collection Method Collection Time Receive d Time (Source) Location / / Volume Laterality Blood specimen 07/24/2015 7:29 AM 016 7:29 (specimen) EST AM EST Elicia Caal MD POINT OF CARE TEST ORDERABLE S Performing Organization Address City/[facility]/ZIP Code Phon e Number [address] CERNER MILLENNIUM Nucleated Red [...] Caal MD HEMATOLOGY ORDERABLES Performing Organization Address City/[facility]/ZIP Code Phon e Number [address] CERNER MILLENNIUM (ABNORMAL) Differential, [...] Organization Address City/State/[place] [address] CERNER MILLENNIUM (ABNORMAL) Hemogram [...] Organization Address City/State/[place] [address] CERNER MILLENNIUM (ABNORMAL) Basic [...] intervals supplied above were not validated at [facility]. Results from pediatri c patients should be [...] the following links into your internet browser. [email or web address] Specimen Anatomical Collection Method Collection Time Receive d Time (Source) Location / / Volume Laterality Blood specimen 07/24/2015 5:03 AM 016 6:40 (specimen) EST AM EST Resulting Agency Comment Spec In Lab Elicia Caal MD CHEMISTRY ORDERABLES Performing Organization Address City/[facility]/ZIP Code Phon e Number [address] [facility] POCT Glucose (07/23/2015 9:06 PM EST) P athologist Signature POC Glucose 105 65 - 199 CERNER mg/dL [facility] Comment: Supplemental ranges: <140 mg/dL before meals <180 mg/dL all other times of the day Specimen Anatomical Collection Method Collection Time Receive d Time (Source) Location / / Volume Laterality Blood specimen 07/23/2015 9:06 PM 016 9:06 (specimen) EST PM EST Elicia Caal MD POINT OF CARE TEST ORDERABLE S Performing Organization Address City/[facility]/ZIP Code Phon e Number [address] [facility] Antibody screen (07/23/2015 8:50 PM EST) [facility] gist Method Time Signature Ab Screen Negative [facility] Expires at 07/26/2015 [facility] [id number] on: MILLENNIUM Specimen Anatomical Collection Method Collection Time Receive d Time (Source) Location / / Volume Laterality Blood specimen 07/23/2015 8:50 PM 016 8:56 (specimen) EST PM EST Resulting Agency Comment Spec In Lab Elicia Caal MD BLOOD BANK ORDERABLES Performing Organization Address City/[facility]/ZIP Code Phon e Number [address] [facility] CAPOENNIUM ABO/Rh Typing (07/23/2015 8:50 PM EST) P athologist Signature ABORh Type A Neg [facility] Specimen Anatomical Collection Method Collection Time Receive d Time (Source) Location / / Volume Laterality Blood specimen 07/23/2015 8:50 PM 016 8:56 (specimen) EST PM EST Resulting Agency Comment Spec In Lab Elicia Caal MD BLOOD BANK ORDERABLES Performing Organization Address City/State/[place] [address] CERNER MILLENNIUM (ABNORMAL) Differential, Automated (07/23/2015 8:50 PM EST) [facility] gist Method Time Signature Neutrophils % 74.3 [...] Caal MD HEMATOLOGY ORDERABLES Performing Organization Address City/[facility]/[place] [address] CERNER MILLENNIUM (ABNORMAL) Hemogram [...] Address City/State/ZIP Code Phon e Number [place] CERNER MILLENNIUM Vancomycin, trough (07/23/2015 [...] Organization Address City/State/[place] [address] CERNER MILLENNIUM (ABNORMAL) Basic [...] intervals supplied above were not validated at [facility]. Results from pediatri c patients should be [...] the following links into your internet browser. [email or web address] Specimen Anatomical Collection Method Collection Time Receive d Time (Source) Location / / Volume Laterality Blood specimen 07/23/2015 8:50 PM 016 8:57 (specimen) EST PM EST Resulting Agency Comment Spec In Lab Elicia Caal MD CHEMISTRY ORDERABLES Performing Organization Address City/State/ZIP Code Phon e Number [address] [facility] documented in this encounter Visit Diagnoses Not on filedocumented in this encounter Admitting Diagnoses Diagnosis Critical lower limb ischemia Unspecified circulatory system disorder documented in this encounter Administered Medications Inactive Administered Medications - up to 3 most recent administrations Medication Order MAR Action Action Date Dose Rate Site bacitracin injection Given 07/29/2015 12:27 50,000 Units 19- Surgica l Site ONCE PRN, Starting on PM EST Sat07/29/15 at 1227, Until Sat07/29/15 at 1512, Intra-Operative (Intra-Procedure), Routine documented in this encounter Active and Recently Administered Medications Times are shown in EST. Scheduled Medication Order 08/01/2015 08/02/2015 08/03/2015 aspirin EC tablet 81 mg (CANCELED) 0837 (Given - Provider: Angela Childers RN) 0838 (Given - Provider: Bree Hermosillo RN) 0921 (Given - Provider: Karen Alfonso RN) 81 mg, Oral, DAILY, First dose on Sat at 0900, Until Discontinued, Routine DAPTOmycin (CUBICIN) 355 mg in sodium chloride 0.9% 57.1 mL (CANCELED) 1620 (Given - Provider: Bree Hermosillo RN) 355 mg (rounded from 354 mg = [...] Oropeza RN) 0837 (Given - Provider: Bree Hermosillo, JOSEPH)2014 (Given - Provider: Vijaya Sweeney, JOSEPH) 0921 (Given - Provider: Karen Alfonso, RN) 600 mg, Oral, 2 TIMES DAILY, First dose on Sat07/30/15 at 1700, Until Discontinued, Routine heparin (porcine) subcutaneous injection 5,000 Units ( CANCELED) 0837 (Given - Provider: Ashleigh Childers, JOSEPH)2057 (Given - Provider: Calvin Oropeza RN) 0839 (Given - Provider: Bree Hermosillo, JOSEPH)2019 (Given - Provider: Vijaya Sweeney, JOSEPH) 0921 (Given - Provider: Karen nichole RN) 5,000 Units, Subcutaneous, EVERY 12 HOUR S SCHEDULED (2 times per day), First dose on Sat07/30/15 at 1345, Until Discontinued, Routine insulin aspart (NovoLOG) VIAL injection 1-4 Units 0818 (Given - Provider: Ashleigh Childers, JOSEPH)1253 (Given - Provider: Ashleigh Childers, JOSEPH)1650 (Given - Provider: Ashleigh Childers RN)2000 (Not Given - Provider: Calvin Oropeza RN - Reason: Order parameters not met - Comment: Gave no 0011 (Given - Provider: Calvin Oropeza RN)0333 (Given - Provider: Calvin Oropeza RN)0837 (Given - Provider: Bree Hermosillo, JOSEPH)1205 (Given - Provider: Bree Hermosillo, JOSEPH)1640 (Given - Provider: Bree Hermosillo, JOSEPH) 0051 (Given - Provider: Vijaya mckeon RN)0338 (Given - Provider: Vijaya Sweeney, JOSEPH)0810 (Given - Provider: Karen Alfonso RN)1124 (Given - Provider: Karen Alfonso, JOSEPH) 1-4 Units, Subcutaneous, EVERY 4 HOURS, First dose on Sat08/01/15 at 0615, Until Discontinued, CORRECTION BOLUS Sensitive to insulin lean patient or total daily dose of all insulin needed to achieve insulin and resumed prior schedule, as per order.....) 2016 (Given - Provider: Vijaya Sweeney, JOSEPH) glycemic control less than 30 units BG [...] (TOPROL-XL) XL tablet 25 mg (CANC ELED) 08 (Given - Provider: Ashleigh Childers RN) 08 (Given - Provider: Bree Hermosillo, JOSEPH) 09 (Given - Provider: Karen Alfonso, JOSEPH) 25 mg, Oral, DAILY, First dose on Sat at 0900, Until Discontinued, DO NOT CRUSH OR OPEN Hold for HR<60 or SBP<90, Routine polyethylene glycol (MIRALAX) packet 17 g (CANCELED) 0 836 (Not Given - Provider: Ashleigh Childers RN - Reason: See comment - Comment: Pt previously having loose stools yesterday.)2099 (Not Given - Provider: Calvin Oropeza RN - Reason: Contraindicated - Comment: Loose stools) 08 (Given - Provider: Bree Hermosillo RN)2099 (Not Given - Provider: Vijaya Sweeney RN - Reason: Patient/family refused) 921 (Not Given - Provider: Karen Alfonso RN [...] (CANCELED) 0837 (Give n - Provider: Ashleigh Childers, JOSEPH) 0837 (Given - Provider: Bree Hermosillo RN) 0921 (Gi aide - Provider: Karen Alfonso RN) 50 mg, Oral, DAILY, First dose on Sun at 0900, Until Discontinued, Routine simvastatin (ZOCOR) tablet 20 mg (CANCELED) 2056 (Give n - Provider: Calvin Oropeza, JOSEPH) 2014 (Given - Provider: Vijaya Sweeney, RN) 20 mg, Oral, NIGHTLY, First dose on 07/23/15 at 2200, Until Discontinued, Routine PRN Medication Order 08/01/2015 08/02/2015 08/03/2015 acetaminophen (TYLENOL) tablet 500 mg (CANCELED) 154 (Given - Provider: Ashleigh Childers RN) 500 mg, Oral, EVERY 4 HOURS PRN, Startin g 07/23/15 at 2019, Until 08/03/15 at 1634, Pain, Fever, Maximum dose of acetaminophen is 4000 mg from all sources in 24 hours., Routine ondansetron (ZOFRAN) tablet 4 mg (CANCELED) 2237 (Give n - Provider: Calvin Oropeza RN) 05 (Given - Provider: Calvin Oropeza, JOSEPH)2014 (Given - Provider: Vijaya Sweeney, JOSEPH) 4 mg, Oral, EVERY 8 HOURS PRN, Starting 07/23/15 at 2019, Until 08/03/15 at 1634, Nausea, Vomiting, If multiple antiemetics are ordered, use ondansetron first. PO Preferred. If patient unable to take PO, may give IV if ordered. May repeat times one in 45 minutes if ineffective., Routine oxyCODONE (ROXICODONE) immediate release tablet 5 mg 2015 (Given - Provider: Vijaya Sweeney, JOSEPH) 5 mg, Oral, EVERY 4 HOURS PRN, Starting 07/31/15 at 0815, Until 08/03/15 at 1634, Pain, mild to moderate pain (1-6), May give an additional 5 mg in 30 minutes once if pain not relieved., Routine documented in this encounter Care Teams Derrick Follower Relationship Specialty Start Date End Date Moon, Gordy J, MD PCP - General Family Medicine 05/19/[address] [place] [address] documented as of this encounter
--- OUTSIDE RECORDS SUMMARY | 2022-01-25 00:58 | XMS_ITS | Encounter Summary ---
:1950 [place] [address] Care Team Providers Name Role Phone Gordy Gregg MD Primary Care Provider [phone] Encounter Details Date Type Department Care Team Description 07/26/2015 Anesthesia Event Main Operating Room Beka Tobias [facility] [place] [address] [place] [address] [phone] Anesthesia Record Procedure Summary Procedure Name Responsible Anesthesia Start Anesthesia Stop Time Anesthesiologist Time DRESSING CHANGE (FOR OTHER THAN ESCALANTE) UNDER ANES., LOWER EXTREMITY (WRVU 0.86) (Left ) Events No events on file. No medications on file. Agents No agents on file. Blood No blood administrations on file. Lines, Drains, and Airways Type Details Placement Removal Incision 07/24/15; leg (Amputation 07/24/15 0000 by Mushtaq nichole, of left foot. ) Elicia Hedrick APRN Wound 07/27/15; groin 07/27/15 0000 by Suzanne Elam RN Lumbar/CSF Drain 07/27/15; Left; groin; 07/27/15 0000 by bhakti Glass dsg lt groin Lucero Lloyd RN Wound 07/28/15; 1103; sacral 07/28/15 1103 by Harjit, spine; fissure Shannan Ba RN (RETIRED) Pressure Ulcer 08/10/15 2030 by Kylee Gil RN documented in this encounter Social History Tobacco Use Types Packs/Day Years Used Date Never Smoker Smokeless Tobacco: Never Used Alcohol Use Standard Drinks/Week Comments No 0 (1 standard drink = 0.6 oz pure alcoho l) Sex Assigned at Date Recorded Not on file documented as of this encounter OR Notes Anesthesia Preprocedure Evaluation - El Austin MD - 07/26/2015 3:02 PM EST Pre-Anesthesia Evaluation for: Carrie Hurst a [...] CONDUIT ([place] [address]) performed by Mariano Doyle MD at [facility] MAIN OR ??? Pro bypass graft othr, fem-tibial Left 05/26/2015 @BYPASS GRAFT, FEM-ANT TIBIAL, -POST TIBIAL, -PERONEAL, -DP W\ SYNTHETIC CONDUIT performed by Mariano Doyle MD at [facility] MAIN OR ??? Pro bypass graft vein patch/cuff, synthetic Left 05/26/2015 PLACEMENT VEIN PATCH OR CUFF AT DISTAL ANASTOMOSIS OF BYPASS GRAFT, SYNTHETIC CONDUIT , MICHAEL-COLLAR, RACHELLE-PATCH, ADD-ON CODE, LOWER EXTREMITY performed by Mariano Doyle MD at [facility] MAIN OR ??? Pro thromboendartectmy iliofemoral Left 05/26/2015 @ENDARTERECTOMY, ILIOFEMORAL W OR W/O PATCH GRAFT performed by Mariano Doyle MD at [facility] OR ??? Pro reoperation, bypass graft Left 05/26/2015 @RE-OP FOR RE-DO LOWER EXTREMITY BYPASS GRAFT, >1 MONTH P\ ORIGINAL SURGERY, ADD-ON CODE performed by Mariano Doyle MD at [facility] OR ??? Pro amputation low leg, circular Left 07/24/2015 @AMPUTATION, BELOW-KNEE, OPEN, GUILLOTINE performed by Elicia Caal MD at [facility] OR ??? Pro exploration, femoral artery Left 07/24/2015 @EXPLORATION, W/WO LYSIS, FEMORAL ARTERY W\O SURGICAL REPAIR performed by Elicia Caal MD at [facility] OR ??? Pro negative pressure wound therapy, less than or equal to 50 sqcm Left 07/24/2015 DRESSING CHANGE (VAC ASSISTED) UP TO 50SQ.CM performed by Elicai Caal MD at [facility] MAIN OR ??? Pro rebl ves direct, low extrem Left 07/24/2015 REPAIR LOWER EXTREMITY BLOOD VESSEL, DIRECT, NO PATCH OR GRAFT performed by Elicia Caal MD at [facility] OR ??? Pro excision, infec graft, extremity Left 07/24/2015 EXCISION OF INFECTED GRAFT FROM LOWER EXTREMITY performed by Elicia Caal MD at [facility] OR History Substance Use Topics ??? Smoking status: Never Smoker ??? Smokeless tobacco: Never Used ??? Alcohol Use: No History Drug Use No Comment: marijuana (smoked for 8 years. quit 2004) No Known Allergies Medications: MAR and/or home medications have been reviewed. Physical Exam: Filed Vitals: 07/26/15 1200 BP: Pulse: 69 Temp: 36.9 ??C (98.4 ??F) Resp: 10 Body mass index is 25.4 kg/(m^2). Height: [...] consent was signed and placed in chart. EL AUSTIN MD 07/26/2015 Region - Other Informed Consent: PAT Staff Note documented in this encounter Plan of Treatment Not on filedocumented as of this encounter Visit Diagnoses Not on filedocumented in this encounter Care Teams Sales Supervisor Relationship Specialty Start Date End Date Gordy Gregg MD PCP - General Family Medicine 05/19/[address] [place] [address] documented as of this encounter
--- OUTSIDE RECORDS SUMMARY | 2022-01-25 00:58 | XMS_ITS | Encounter Summary ---
:1950 [place] [address] Care Team Providers Name Role Phone Gordy Gregg MD Primary Care Provider Reason for Visit Auth/Cert - Closed Specialty Diagnoses / Procedures Referred By Contact Refer red To Contact Diagnoses SFA to peroneal bypass occluded graft Procedures PRO VEIN IN SITU BYPASS GRAFT, FEM-TIB PRO VEIN BYPASS GRAFT, FEM-TIBIAL @BYPASS GRAFT, FEM.-ANT. TIB, POST. TIB, PERONEAL, DP W\ VEIN CONDUIT ([place] [address]) Referral ID Status Reason Start Date Expiration Date Visits Requ ested Visits Authorized [id number] Closed 1 1 Encounter Details Date Type Department Care Team Description 07/24/2015 Anesthesia Event Main Operating Room Ronnie Melton nd, MD [facility] [place] [address] [facility] Jaqui Renae CRNA [facility] [place] [address] [place] [address] Anesthesia Record Procedure Summary Procedure Name Responsible Anesthesia Start Anesthesia Stop Anesthesiologist Time Time @AMPUTATIONLatrell Marc L, MD 07/24/15 1059 07/24/15 15 36 BELOW-KNEE, OPEN, GUILLOTINE (WRVU 9.79) (Left Leg Lower) Events Date Time Event Comment 07/24/2015 1059 AN Verify 1059 Start 1059 An Start Data 1102 An Induction 1103 An Intubation 1104 Anesthesia Ready 1119 1213 Extubation/LMA Out 1213 An Intubation 1344 ABG Data Arterial Blood G as result: pH 7.43 pCO2 33 pO2 272 FiO2 50 %O2 Sat 99 HCO3 21.9 BE -2.4 Hb 9.1 Glucose 1 48 K 3.37 1419 Quick Note Femoral clamp of f 1435 ABG Data Arterial Blood G as result: pH 7.429 pCO2 35.4 pO2 223 FiO2 50 %O2 Sat 99 HCO3 23 BE -1.4 Hb 9.1 Glucose 148 K 3.44 1457 ABG Data Arterial Blood G as result: pH 7.43 pCO2 35.4 pO2 230 FiO2 50 %O2 Sat 98 HCO3 23 BE -1.4 Hb 9.1 Glucose 148 K 3.44 1527 an stop data 1536 Stop 1546 Recovery or ICU Handoff Patient care was transferred to the destination unit staff after review of the patient's medica l history, current anesthetic/surgi ray status and plan, according to the Provider Handoff Checklist. Name Total Propofol 220 mg Rocuronium 50 mg Ondansetron 4 mg Dexamethasone 4 mg Neostigmine 3 mg Glycopyrrolate 0.4 mg HYDROmorphone 2 mg Vancomycin 1.5 g heparin (porcine) injection 1,000 units/mL 7,000 Units Piperacillin-Tazobactam 3.375 g Calcium Chloride 1,000 mg Protamine 25 mg Lactated Ringers 2,000 mL Agents Name O2 Air N2O Sevoflurane (et) Blood No blood administrations on file. Lines, Drains, and Airways Type Details Placement Removal Incision 07/24/15; leg (Amputation 07/24/15 0000 by of left foot. ) Elicia Perez APRN Incision 03/18/15; leg; vertical 03/18/15 0000 by Elam, 0 08/11/15 0003 by (Extending from left JOSEPH Burch Kristy L, groin to left medial RN calf.); 08/11/15; 0003 Incision 03/18/15; calf; vertical; 03/18/15 0000 by Papa, 08/11/15 0003 by 08/11/15; 0003 JOSEPH Burch Krist y L RN Incision 05/26/15; groin; 05/26/15 0000 by Arkoma, 08/11/15 0003 by vertical, other (see JOSEPH Feliciano Kristy L, comments); 08/11/15; 0003 RN Incision 05/26/15; leg; vertical; 05/26/15 0000 by Arkoma, 08/11/15 0003 by (distal leg); 08/11/15; JOSEPH Feliciano Kristy L, 0003 RN Urethral Catheter 07/21/15; (Placed at 07/21/15 0000 by 07/31/15 1030 by [facility]); indwelling single JosephEstrellita L, L aplante, Estrellita L, lumen catheter; present RN RN on admission to this facility; 10; 07/31/15; 1030 Wound 07/23/15; leg; 07/24/15; 07/23/15 0000 by 2232 by 223 Estrellita uRiz Voorhees, J ennifer RN E, RN PIV cephalic vein right 07/23/15 1924 by 07/24/15 20 43 by (lateral side of arm); 20 Elicia Pryor gauge, 1 in length; OSH; E RN lumen/catheter not patent; 07/24/15; 2042 PIV 07/23/15; 2236; cephalic 07/23/15 2237 by Gerardo, 08/03/15 1357 by vein right (lateral side JOSEPH Campos Jillian Y, of arm); [id number] TALENT ACQUISITION LEAD catheter system; 18 gauge, 1 in length; Denzel Carrillo RN VAS; intradermal injection, appears comfortable, tolerated well; 0; 08/03/15; 1357 Incision 07/24/15; leg (Groin to 07/24/15 0000 by 6 1039 by [facility]. ); 07/29/15; Elicia Perez Voorh ees, Jennifer 1039 EYELET RIVETER E, RN Incision 07/24/15; calf; 07/24/15; 07/24/15 0000 by 07/24 2231 by 223 Gladis Childress RN Voorhees, Jenni fer E RN Lumbar/CSF Drain 07/24/15; Left; medial; 07/24/15 0000 by 1626 by calf; [place] (07/11 Gladis Childress, JOSEPH Hawley, Alex luis inch.); removed in OR; E, RN 07/29/15; 1626 Incision 07/24/15; calf (BKA); 07/24/15 0000 by 07/24/15 2232 by 07/24/15; 2232 Elicia Hawley, Elicia Hawley RN E, RN Supraglottic Mask Ventilation: Not 07/24/15 1103 by 07/24/15 1213 by Attempted (0); LMA Type: Tj Benitez DO Ad ams, Maura J, MD iGel; LMA Size: 3 PIV 07/24/15; 1213; 07/24/15 1213 by 07/27/151999 b y metacarpal vein left (top Jaki Menchaca K im, Anni E, RN of hand); [id number] catheter system; 14 gauge; Benitez; 07/27/151999 ETT Mask Ventilation: Easy 07/24/15 1215 by 07/24/15 2226 by (1); ETT Type: Cuffed, Italia Cruz MD Voorhe es, Jennifer Oral; ETT Size: 7.5 mm; JOSEPH Lloyd Mac Blade: 3; Notes: Asleep, Pre-O2; Attempts: 1; Laryngoscopy Grade: 1; ETT Placement Verified By: Auscultation, Capnometry, Visual Arterial Line 07/24/15; 1435; radial 07/24/15 1435 by 07/27/151999 by artery; 20 gauge; Benitez; Jaki Menchaca K im, Arminda Lloyd, RN Sterile Prep, Sterile Gloves; 07/27/151999 documented in this encounter Social History Tobacco Use Types Packs/Day Years Used Date Never Smoker Smokeless Tobacco: Never Used Alcohol Use Standard Drinks/Week Comments No 0 (1 standard drink = 0.6 oz pure alcoho l) Sex Assigned at Date Recorded Not on file documented as of this encounter OR Notes Anesthesia Postprocedure Evaluation - Ronnie Sams MD - 07/24/2015 6:35 PM EST [facility] Department of Anesthesiology Post-procedure Note Patient: Carrie Hurst Procedure Summary Date Anesthesia Start Anesthesia Stop Room / Location 07/24/15 1059 1536 [facility] OR 20 / [facility] MAIN OR Procedure Diagnosis Surgeon Responsible Provider @AMPUTATION, BELOW-KNEE, OPEN, GUILLOTINE (Left Leg Lower); @EXPLORATION, W/WO LYSIS, FEMORAL ARTERY W\O SURGICAL REPAIR (Left Leg Lower); DRESSING CHANGE (VAC ASSISTED) UP TO 50SQ.CM (Left Leg); REPAIR LOWER EXTREMITY BLOOD VESSEL, DIRECT, NO PATCH OR GRAFT (Left Leg); 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) Elicia Caal MD Bertrand, Marc L, MD Last (1hr) Vitals: BP 120/57 mmHg (07/24/151814) Temp 37.2 ??C (99 ??F) (07/24/15 1800) Pulse 76 (07/24/151814) Resp 10 (07/24/151814) SpO2 94 % (07/24/151814) Patient Location: PACU/SDP Level of Consciousness: Conscious but Sleepy Pain Management: Satisfactory Analgesia PONV: None Cardiovascular Status: At Baseline Respiratory Status: At Baseline Postoperative Fluid Status: Intravascular EUvolemia Possible Anesthetic Complications: NONE apparent at time of evaluation Final Primary Anesthesia Type: General (The anesthetic type performed was the same as planned.) Comments: Anesthesia Preprocedure Evaluation - Ronnie Sams MD - 07/24/2015 10:41 AM EST Pre-Anesthesia Evaluation for: Carrie Hurst a 64 y.o. female. Procedure(s): @AMPUTATION, BELOW-KNEE, OPEN, GUILLOTINE Patient Active Problem List Diagnosis ??? Critical [...] CONDUIT ([place] [address]) performed by Mariano Doyle MD at [facility] MAIN OR ??? Pro bypass graft othr, fem-tibial Left 05/26/2015 @BYPASS GRAFT, FEM-ANT TIBIAL, -POST TIBIAL, -PERONEAL, -DP W\ SYNTHETIC CONDUIT performed by Mariano Doyle MD at [facility] MAIN OR ??? Pro bypass graft vein patch/cuff, synthetic Left 05/26/2015 PLACEMENT VEIN PATCH OR CUFF AT DISTAL ANASTOMOSIS OF BYPASS GRAFT, SYNTHETIC CONDUIT , RODRIGUEZ-COLLAR, RACHELLE-PATCH, ADD-ON CODE, LOWER EXTREMITY performed by Mariano Doyle MD at [facility] MAIN OR ??? Pro thromboendartectmy iliofemoral Left 05/26/2015 @ENDARTERECTOMY, ILIOFEMORAL W OR W/O PATCH GRAFT performed by Mariano Doyle MD at [facility] MAIN OR ??? Pro reoperation, bypass graft Left 05/26/2015 @RE-OP FOR RE-DO LOWER EXTREMITY BYPASS GRAFT, >1 MONTH P\ ORIGINAL SURGERY, ADD-ON CODE performed by Mariano Doyle MD at [facility] MAIN OR History Substance Use Topics ??? Smoking status: Never Smoker ??? Smokeless tobacco: Never Used ??? Alcohol Use: No History Drug Use No Comment: marijuana (smoked for 8 years. quit 2004) No Known Allergies Medications: MAR and/or home medications have been reviewed. Physical Exam: Filed Vitals: 07/24/15 0808 BP: 105/56 Pulse: 70 Temp: 36.7 ??C (98.1 ??F) Resp: 16 Body mass index is 22.69 kg/(m^2). Height: 152.4 cm (5') Weight - Scale: 52.7 kg (116 lb 2.9 oz) Airway Assessment: Mallampati: II TM distance: >3 FB Neck ROM: full Cardiovascular Assessment: Rhythm: regular Pulmonary Assessment: (-) wheezes Dental Assessment: Misc Assessment: Patient is wearing No contact(s). IV access: Peripheral line Anesthesia Plan: ASA 4 General, with a(n) intravenous induction 64 y/o woman with PMH significant for DM, HTN, hyperlipidemia and PVD will undergo LLE BKA followingmultiple failed revascularization bypass grafts (03/2015, 05/2015) and development of wet gangrene. 52kg NKDA Hgb 9.3 Plan GETA, standard ASA monitoring; good IV access Region - Other Informed Consent: Anesthetic plan and risks discussed with patient. Plan discussed with attending. PAT Staff Note documented in this encounter Plan of Treatment Not on filedocumented as of this encounter Visit Diagnoses Not on filedocumented in this encounter Administered Medications Inactive Administered Medications - up to 3 most recent administrations Medication Order MAR Action Action Date Dose Rate Site calcium chloride injection Given 07/24/2015 2:23 PM EST 250 mg PRN, Starting on 07/24/15 at 1419, Until 07/24/15 at 1546, Anesthesia Intra-op Given 07/24/2015 2:22 PM EST 250 mg Given 07/24/2015 2:21 PM EST 250 mg dexamethasone (DECADRON) injection Given 07/24/2015 2:49 PM EST 4 mg PRN, Starting on 07/24/15 at 1449, Until 07/24/15 at 1546, Anesthesia Intra-op, Routine glycopyrrolate (ROBINUL) multi-dose inje ction Given 07/24/2015 2:49 PM EST 0.4 mg PRN, Starting on 07/24/15 at 1449, Until 07/24/15 at 1546, Anesthesia Intra-op, Routine heparin (porcine) injection Given 07/24/2015 1:48 PM EST 1,000 Units PRN, Starting on 07/24/15 at 1259, Until 07/24/15 at 1546, Anesthesia Intra-op, Routine Given 07/24/2015 12:59 PM EST 6,000 Units HYDROmorphone (DILAUDID) injection Given 07/24/2015 12:13 PM EST 0.8 mg PRN, Starting on 07/24/15 at 1109, Until 07/24/15 at 1546, Pain, Anesthesia Intra-op, Routine Given 07/24/2015 11:23 AM EST 0.4 mg Given 07/24/2015 11:14 AM EST 0.4 mg lactated ringers infusion New Bag 07/24/2015 10:59 AM EST CONTINUOUS PRN, Starting on 07/24/15 at 1059, Until 07/24/15 at 1546, Anesthesia Intra-op neostigmine (PROSTIGMINE) multi-dose inj ection Given 07/24/2015 2:49 PM EST 3 mg PRN, Starting on 07/24/15 at 1449, Until 07/24/15 at 1546, Anesthesia Intra-op, Routine ondansetron (ZOFRAN) injection Given 07/24/2015 2:49 PM EST 4 mg PRN, Starting on 07/24/15 at 1449, Until 07/24/15 at 1546, Nausea, Anesthesia Intra-op, Routine piperacillin-tazobactam (ZOSYN) injectio n Given 07/24/2015 1:54 PM EST 3.375 g PRN, Starting on 07/24/15 at 1354, Until 07/24/15 at 1546, Anesthesia Intra-op, Routine propofol (DIPRIVAN) 10 mg/mL bolus injection Given 12:16 PM EST 100 mg (Anesthesia) PRN, Starting on 07/24/15 at 1102, Until 07/24/15 at 1546, Anesthesia Intra-op Given 07/24/2015 11:02 AM EST 120 mg protamine injection Given 07/24/2015 2:27 PM EST 25 mg PRN, Starting on 07/24/15 at 1427, Until 07/24/15 at 1546, Anesthesia Intra-op, Routine rocuronium (ZEMURON) multi-dose injectio n Given 07/24/2015 12:16 PM EST 50 mg PRN, Starting on 07/24/15 at 1216, Until 07/24/15 at 1546, Anesthesia Intra-op, Routine vancomycin (VANCOCIN) injection Given 07/24/2015 12:30 PM EST 1.5 g PRN, Starting on 07/24/15 at 1230, Until [place] 07/24/15 at 1546, Anesthesia Intra-op, Routine documented in this encounter Care Teams Stock Associate Relationship Specialty Start Date End Date Gordy Gregg MD PCP - General Family Medicine 05/19/[address] [place] [address] documented as of this encounter
--- OUTSIDE RECORDS SUMMARY | 2022-01-25 00:58 | XMS_ITS | Encounter Summary ---
:1950 Author Organization [facility] Address [facility] [place] [address] Care Team Providers Name Role Phone Gordy Moon MD Primary Care Provider Reason for Visit Auth/Cert - Closed Specialty Diagnoses / Procedures Referred By Contact Refer red To Contact Diagnoses SFA to peroneal bypass occluded graft Procedures PRO VEIN IN SITU BYPASS GRAFT, FEM-TIB PRO VEIN BYPASS GRAFT, FEM-TIBIAL @BYPASS GRAFT, FEM.-ANT. TIB, POST. TIB, PERONEAL, DP W\ VEIN CONDUIT ([place] [id number]) Referral ID Status Reason Start Date Expiration Date Visits Requ ested Visits Authorized [id number] Closed 1 1 Encounter Details Date Type Department Care Team Description 07/27/2015 Surgery Main Operating Room Elicia Caal FLAP, MYOCUTANEOUS OR Haley Uriatre MD FASCIOCUTANEOUS, [facility] EXTREMITY (WRVU 19.04) [facility] [address] Campos [place] [address] [place] [address] [phone] (Wo rk) Social History Tobacco Use Types [...] She then underwent a second LLE bypass HTML DEVELOPER to PT with PTFE, on 05-26. This was found to be occluded on 06-01. Since that time the patient has had progressive worsening of her medial/distal surgical incision that has failed to heal. With no additional revasc options she was offered opportunity to enrol in stemcell trial, but declined. 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 On 07-20-15 she present to [facility] with SIRS physiology, felt to be related to her leg wound. She declinedtransfer to [facility] for [facility] at that time and was [...] ligated and resected; bovine pericardial patch resected, HTML DEVELOPER debrided and repaired with new bovine pericardial [...] IV Dapto for new micro growth records. [facility] ID involved with final recs for: IV Dapto through PICC line placed day of discharge. Nephrology consulted for PANDA with Cr rise to 1.87 at peak s/t supertherapeutic Vanc. Renal duplex obtained, resulted below. Pt's metformin and lisinopril held. Nephrology will see pt outpt. Cr @ discharge: 1.31, baseline 0.35. Initially on PRODUCTION FINISHER for pain control through 07/31, transitioned to [...] renal vein. Discharge Conditions/Prognosis: Good Discharge to: [address] [place] [address] Discharge Medications: Your Medications New Medications [...] For any problems or questions please call [phone] SAMIA Lopez, key maker Nurse Clinician For issues on weeknights after 5pm and weekends please call [phone] and ask for the Vascular Fellow oracle wms consultant. General Instructions None Future Appointments and Orders Future Appointments Provider Department Dept Phone 08/17/2015 3:00 PM Radha Waller PA Vascular Surgery [phone] 08/17/2015 4:00 PM Maria Hernandez MD; Donya Awad MD Nephrology [phone] Future Orders Complete By Expires OPAT: Order / Recommendation for Post Discharge IV Antibiotic Management [ELT414 CPT(R)] As directed Process Instructions: If no progress note charted, please enter Clinical details in comments. Scheduling Instructions: Comments: Please Fax all results to: OPAT Program Infectious Disease Section [facility], [place] [address] FAX: Line care instructions per [facility] OPAT Program protocol. After hours, please contact the Infectious Disease Physician oracle wms consultant at . If this order was signed greater than 72 hours prior to [facility] discharge, please call to confirm the accuracy [...] For any problems or questions please call [phone] SAMIA Lopez, key maker Nurse Clinician For issues on weeknights after 5pm and weekends please call [phone] and ask for the Vascular Fellow oracle wms consultant. documented in this encounter Medications at Time [...] 1:59 PM EST Pt being discharged to [facility] by ambulance. PICC line placed today for IV abx treatment. PIVs removed. Wound vac clamped for ride. Reported called to receiving facility. Discharge summary and medicationsheet printed and placed in discharge packet. Complications regarding code status. diversity manager Joanna gaxiola and MD Jason Miramontes informed and questioned. Code order read as DNR, but scanned advanced directive read full code. MD Miramontes and case consultant Sachin spoke with pt. It was determined [...] is needed. 25' M.Pepper Felipe MD Pager [phone] ARET [place], October - 08/03/2015 12:18 PM EST Office of Care Management/Validation Engineer Patient Name: Chan Hurst : 1950 Patient has been offered a swing bed at [facility]. [facility] arranged for a 1:30 pm Transport. Ambulance will need: Medicare ambulance form completed and signed (MD or CRC) Copy of patient demographics [place] [facility] DNR/DNI order, if active Please have MD call Dr Haley Hopson @ [phone] and page her. RN to RN:Please call Nursing Report to Amalia Pond RN @ [phone]. Info to accompany patient: Copies of Medication Administration Records and IV sheets for past 10 days. Plan: Validation Engineer will be available to the patient and CRC for further assistance. Patient will be discharged to: [facility] [address] [phone] Tiffany [place] Validation Engineer Maria Hernandez - 08/03/2015 12:03 PM EST [...] 3.6 CL 101 105 102 CO2 25 BUN 20* 22* 22* CREATININE 1.31* [...] have contributed Urine out put > 1L proof plate maker clearance ~ 29 by 24 hr collection [...] Ignacio Hernandez MD Nephrology Fellow Pager # [phone] Associated attestation - Karen Pierre MD - [...] sister is quite insistant to d/c to [facility] swing but is agreeable to selection of three - will request TCT by Validation Engineer to [facility] to ascertain bed option as did not appear of [facility] list of facilities - [facility] - [facility] -- [facility] -- transportation will still be determined 08/02/2015 -- Jaime Heraclio, live in friend for 20+ years, consulted with CM - expressed concern of the need for POA for - wishes to complete POA / living will at bedside this date -- SWITCHBOARD INSPECTOR consulted and agreeable to meet with patient [...] bed rehab to be 1st choice - Validation Engineer made aware to communicate to facilities - [...] known to swing bed 1st choice via Validation Engineer - [id number] -- received/answered page as Jaime requested to discuss his desire to be 1st contact in decisions moving forward - this is agreeable encouraged to inform nurses at desk this night and this CM will made designated in demographics in am as I have left office for the day - agreeable 08/03/2015 -- 2068 - email sent to PAAS to update the above request -- Vasc Surg consulted medicallycleared for d/c today - [facility] accepted patient / will need to verify Dapto / PICC placement today at [facility] via Validation Engineer -- bed accepted by POA and patient - PICC scheduled for prior to 1pm - NPWT being changed currently - discussed with patient and POA of transport via ambulance unsure amountcovered by insurance to expect billing at later time - verbalized understanding and agreeable - waiting for time for ambulance arrival - CM alerted by Validation Engineer NO ambulance scheduled until PICC is placed [...] assistance / consider MA - Jaime Pulliam, JAD/friend updatedof insurance communications - verbalized understanding - [...] controversial advance directives and patient verbalization - SWITCHBOARD INSPECTOR consulted to determine [facility] processes with portable DNR for ambulance transport - Dr. Pond discussed with patient her desires - DNR stands and portable DNR prepared and signed by patient CM available Kerri Stephenson RN CCM #[id number] Debi Dubon OT - 08/02/2015 4:25 PM [...] Ligation and removal of thrombosed, infected left HTML DEVELOPER-PT PTFE bypass graft. ?? 5. Placement of [...] 20 minutes for functional ther ex Pager: [phone] DEBI DUBON OT Occupational Therapy Rehabilitation Department Maria Hernandez - 08/02/2015 4:03 PM EST HYPERTENSION/ NEPHROLOGY [...] contributed Urine out put > 1L yesterday proof plate maker clearance measurement in progress, cystatin C in process Will re assess this data tomorrow Please dose all her meds for GFR ~ 15 or less Volume status stable over all Will be followed in renal clinic upon discharge Thanks for letting us participate in the care of this patient. Seen and Discussed w/ Dr. Ignacio Hernandez MD Nephrology Fellow Pager # [phone] Associated attestation - Karen Pierre MD - [...] She then underwent a second LLE bypass HTML DEVELOPER to PT with PTFE, on 05-26. This was found to be occluded on 06-01. Since that time the patient has had progressive worsening of her medial/distal surgical incision that has failed to heal. Procedures: 07/24: LLE guillotine amp, removal PTFE graft, wound vac, bovine patch HTML DEVELOPER 07/27: Wound vac change, sartorious flap coverate [...] interventions: 30 minutes for functional mobility Pager: [phone] Dariusz Pedraza PT Physical Therapy Rehabilitation Department [...] She then underwent a second LLE bypass HTML DEVELOPER to PT with PTFE, on 05-26. This was found to be occluded on 06-01. Since that time the patient has had progressive worsening of her medial/distal surgical incision that has failed to heal. Procedures: 07/24: LLE guillotine amp, removal PTFE graft, wound vac, bovine patch HTML DEVELOPER 07/27: Wound vac change, sartorious flap coverate [...] amputation LLE with removal of thrombosed/infected L HTML DEVELOPER-PT PTFE bypass graft, and debridement of L HTML DEVELOPER artery with repair of bovine pericardial patch POD#6 from sartorious flap coverage of exposed HTML DEVELOPER, POD #4 s/p L AKA. Patient continues [...] will need SNF. Mariano Miramontes MD Pager [phone] Amita Carnes LD - 08/02/2015 1:33 PM [...] follow throughout hospital stay DAPHNEY TITUS Pager [phone] Hoa Felipe MD - 08/02/2015 1:23 PM [...] ? 1 Gentamicin is not appropriate for Dickinson-therapy. ? 2 MRSA, Note Nafcillin Resistance Impression: [...] is anticipated. Await updated input from the Wigs Salesperson re options. Discussed with Dr. Miramontes. ID Consult service will continue to follow the patient x ID Consult service will sign off. Please call us back if further assistance is needed. 35'; >50% in care coordination Krishna Felipe MD Pager [phone] Debi Bradshaw, OT - 08/01/2015 4:52 PM [...] Ligation and removal of thrombosed, infected left HTML DEVELOPER-PT PTFE bypass graft. ?? 5. Placement of [...] blocked, cues for technique. Pt stood while WATER VESSEL CAPTAIN performed caty care. ?? Mod assist x2 [...] 26 minutes for functional there ex Pager: [phone] DEBI DUBON OT Occupational Therapy Rehabilitation Department Anabel Feldman, PT - 08/01/2015 4:37 PM EST Physical Therapy Note Visit #2 Patient profile:?? Pt. is a 64 y.o. female admitted on 07/23/2015 by Elicia Rivera, * intransfer from OSH for Vascular service consult who presents now with wet gangrene of the left lower extremity. ? 07-24-15: OR Procedure(s): 1. Left below-knee guillotine amputation 2. Incision and drainage of multiple LLE abscesses 3. Left common femoral artery exposure, debridement and repair with bovine pericardial patch. 4. Ligation and removal of thrombosed, infected left HTML DEVELOPER-PT PTFE bypass graft. ?? 5. Placement of [...] She then underwent a second LLE bypass HTML DEVELOPER to PT with PTFE, on 05-26. This was found to be occluded on 06-01. Since that time the patient has had progressive worsening of her medial/distal surgical incision that has failed to heal. With no additional revasc options she was offered opportunityto enrol in stemcell trial, but declined. 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 On 07-20-15 she present to [facility] with SIRS physiology, felt to be related to her leg wound. She declined transfer to [facility] for amputation at that time and was admitted and started on antibiotics. Today, she has resigned to transfer for further care of her leg wound. Social History: Patient lives in [place], [place].?? Lives with boyfriend.?? Boyfriend works so [...] TE-F x 2) Anabel Vela, PT Pager [phone] Inpatient Physical Therapy Mariano Miramontes MD - [...] She then underwent a second LLE bypass HTML DEVELOPER to PT with PTFE, on 05-26. This was found to be occluded on 06-01. Since that time the patient has had progressive worsening of her medial/distal surgical incision that has failed to heal. Procedures: 07/24: LLE guillotine amp, removal PTFE graft, wound vac, bovine patch HTML DEVELOPER 07/27: Wound vac change, sartorious flap coverate [...] 98 % SpO2: [90 %-98 %] 07/31 0701 - 08/01 0700 In: 979.4 [P.O.:717; I.V.:262.4] Out: 1375 [Urine:1275] High Protein - High Calorie diet Physical Exam: General: NAD, A&Ox3, resting in bed, cooperative HEENT: NC/AT CVS: regular rate Pulm: breathing comfortably LLE: left groin vac with good suction. AKA dressing clean and dry. Neuro: Grossly intact, nonfocal, moving all four extremities spontaneously. Recent Labs 08/01/15 04307/31/15 0729 07/30/15 0811 [...] amputation LLE with removal of thrombosed/infected L HTML DEVELOPER-PT PTFE bypass graft, and debridement of L HTML DEVELOPER artery with repair of bovine pericardial patch POD#5 from sartorious flap coverage of exposed HTML DEVELOPER, POD #3 s/p L AKA. Improved leukocytosis [...] will need SNF. Mariano Miramontes MD Pager [phone] Maria Hernandez - 08/01/2015 11:56 AM EST [...] GLUCOSE 193 215* 223* Recent Labs 08/01/15 04307/31/15 0729 07/30/15 0811 CALCIUM 7.8* 7.9* 7.9* [...] contributed Urine out put > 1L yesterday. proof plate maker stable but would like to do 24 [...] Ignacio Hernandez MD Nephrology Fellow Pager # [phone] Associated attestation - Karen Pierre MD - [...] Ligation and removal of thrombosed, infected left HTML DEVELOPER-PT PTFE bypass graft. ?? 5. Placement of [...] She then underwent a second LLE bypass HTML DEVELOPER to PT with PTFE, on 05-26. This was found to be occluded on 06-01. Since that time the patient has had progressive worsening of her medial/distal surgical incision that has failed to heal. With no additional revasc options she was offered opportunityto enrol in stemcell trial, but declined. 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 On 07-20-15 she present to [facility] with SIRS physiology, felt to be related to her leg wound. She declined transfer to [facility] for amputation at that time and was [...] VEIN CONDUIT ([place] [address]) performed by Mariano Doyle MD at [facility] OR? Pro bypass graft othr, fem-tibial?? Left?? 05/26/2015? @BYPASS GRAFT, FEM-ANT TIBIAL, -POST TIBIAL, -PERONEAL, -DP W\ SYNTHETIC CONDUIT performed by Mariano Doyle MD at [facility] OR? Pro bypass graft vein patch/cuff, synthetic?? Left?? 05/26/2015? PLACEMENT VEIN PATCH OR CUFF AT DISTAL ANASTOMOSIS OF BYPASS GRAFT, SYNTHETIC CONDUIT , RODRIGUEZ-COLLAR, RACHELLE-PATCH, ADD-ON CODE, LOWER EXTREMITY performed by Mariano Doyle MD at [facility] OR? Pro thromboendartectmy iliofemoral?? Left?? 05/26/2015? @ENDARTERECTOMY, ILIOFEMORAL W OR W/O PATCH GRAFT [facility] Pro reoperation, bypass graft?? Left?? 05/26/2015? @RE-OP FOR RE-DO LOWER EXTREMITY BYPASS GRAFT, >1 MONTH P\ ORIGINAL SURGERY, ADD-ON CODE performed by Mariano Doyle MD at [facility] OR? Pro amputation low leg, circular?? Left?? 07/24/2015? @AMPUTATION, BELOW-KNEE, OPEN, GUILLOTINE [facility] Pro exploration, femoral artery?? Left?? 07/24/2015? @EXPLORATION, W/WO LYSIS, FEMORAL ARTERY W\O SURGICAL REPAIR performed by Rufus Caal MD at [facility] OR? Pro negative pressure wound therapy, less than or equal to 50 sqcm?? Left?? 07/24/2015? DRESSING CHANGE (VAC ASSISTED) UP TO 50SQ.CM performed by Elicia Caal MD at [facility] OR? Pro rebl ves direct, low extrem?? Left?? 07/24/2015? REPAIR LOWER EXTREMITY BLOOD VESSEL, DIRECT, NO PATCH OR GRAFT performed by Elicia Caal MD at [facility] OR? Pro excision, infec graft, extremity?? Left?? 07/24/2015? EXCISION OF INFECTED GRAFT FROM LOWER EXTREMITY performed by Elicia Caal MD at [facility] OR? Pro muscle-skin flap, leg?? Left?? 07/27/2015? FLAP, MYOCUTANEOUS OR FASCIOCUTANEOUS, LOWER EXTREMITY performed by Elicia Caal MDat [facility] OR? Pro debridement subcutaneous tissue 20 sqcm/<?? Left?? 07/27/2015? DEBRIDEMENT SKIN AND SUBCU,?? LOWER EXTREMITY performed by Elicia Caal MD at [facility] OR? Left?? 07/27/2015? MODIFIER WOUND VAC performed by Elicia Caal MD at [facility] OR?? Social History: Patient lives in [place], [place].?? Lives with boyfriend.?? Boyfriend works so [...] x 3) Radha Dover PT, MSPT Pager [phone] Inpatient Physical Therapy ColumboJuliano - 07/31/2015 12:44 [...] She then underwent a second LLE bypass HTML DEVELOPER to PT with PTFE, on 05-26. This was found to be occluded on 06-01. Since that time the patient has had progressive worsening of her medial/distal surgical incision that has failed to heal. Procedures: 07/24: LLE guillotine amp, removal PTFE graft, wound vac, bovine patch HTML DEVELOPER 07/27: Wound vac change, sartorious flap coverate [...] [94 %-98 %] 07/30 0701 - 07/31 07 In: 1176.4 [P.O.:540; I.V.:636.4] [...] amputation LLE with removal of thrombosed/infected L HTML DEVELOPER-PT PTFE bypass graft, and debridement of L HTML DEVELOPER artery with repair of bovine pericardial patch POD#4 from sartorious flap coverage of exposed HTML DEVELOPER, POD #2 s/p L AKA. . Leukocytosis today, getting UA with culture. On dapto but may need to broaden pending results. Removing garnica, stopping PRODUCTION FINISHER and encouraging mobilization today. PLAN 07/31: 1. Daptomycin, discontinue Zosyn per ID recs as not growing Pseudomonas from groin wound but only from foot, which has been amputated. UA as above. 2. Increase intake of nutritious fluids not just liquid. 3. Stop PRODUCTION FINISHER. 4. Taking garnica out. 5. PT/OT consults Juliano Allen [phone]. Vesna Aguila MD - 07/31/2015 12:02 PM [...] contributed Urine out put > 1L yesterday. Sealer Dry Cell is stale to improving today Duplex for [...] w/ Dr. Ignacio Moise Nephrology Fellow Pager [phone] Associated attestation - Karen Pierre MD - [...] one that was connected to a Dilaudid PRODUCTION FINISHER running at 0.2/5/4 and the other KVO. [...] that are most likely due to Dilaudid PRODUCTION FINISHER. Will continue to monitor. Patient remains in [...] Ligation and removal of thrombosed, infected left HTML DEVELOPER-PT PTFE bypass graft. ?? 5. Placement of [...] She then underwent a second LLE bypass HTML DEVELOPER to PT with PTFE, on 05-26. This was found to be occluded on 06-01. Since that time the patient has had progressive worsening of her medial/distal surgical incision that has failed to heal. With no additional revasc options she was offered opportunityto enrol in stemcell trial, but declined. 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 On 07-20-15 she present to [facility] with SIRS physiology, felt to be related to her leg wound. She declined transfer to [facility] for amputation at that time and was [...] CONDUIT ([place] [address]) performed by Mariano Doyle MD at [facility] OR ??? Pro bypass graft othr, fem-tibial Left 05/26/2015 @BYPASS GRAFT, FEM-ANT TIBIAL, -POST TIBIAL, -PERONEAL, -DP W\ SYNTHETIC CONDUIT performed by Mariano Doyle MD at [facility] OR ??? Pro bypass graft vein patch/cuff, synthetic Left 05/26/2015 PLACEMENT VEIN PATCH OR CUFF AT DISTAL ANASTOMOSIS OF BYPASS GRAFT, SYNTHETIC CONDUIT , MICHAEL-COLLARRACHELLE-PATCH, ADD-ON CODE, LOWER EXTREMITY performed by Mariano Doyle MD at [facility] OR ??? Pro thromboendartectmy iliofemoral Left 05/26/2015 @ENDARTERECTOMY, ILIOFEMORAL W OR W/O PATCH GRAFT performed by Mariano Doyle MD at [facility] OR ??? Pro reoperation, bypass graft Left 05/26/2015 @RE-OP FOR RE-DO LOWER EXTREMITY BYPASS GRAFT, >1 MONTH P\ ORIGINAL SURGERY, ADD-ON CODE performed by Mariano Doyle MD at [facility] OR ??? Pro amputation low leg, circular Left 07/24/2015 @AMPUTATION, BELOW-KNEE, OPEN, GUILLOTINE performed by Elicia Caal MD at [facility] OR ??? Pro exploration, femoral artery Left 07/24/2015 @EXPLORATION, W/WO LYSIS, FEMORAL ARTERY W\O SURGICAL REPAIR performed by Elicia Caal MD at [facility] OR ??? Pro negative pressure wound therapy, less than or equal to 50 sqcm Left 07/24/2015 DRESSING CHANGE (VAC ASSISTED) UP TO 50SQ.CM performed by Elicia Caal MD at [facility] OR ??? Pro rebl ves direct, low extrem Left 07/24/2015 REPAIR LOWER EXTREMITY BLOOD VESSEL, DIRECT, NO PATCH OR GRAFT performed by Elicia Caal MD at [facility] OR ??? Pro excision, infec graft, extremity Left 07/24/2015 EXCISION OF INFECTED GRAFT FROM LOWER EXTREMITY performed by Elicia Caal MD at [facility] OR ??? Pro muscle-skin flap, leg Left 07/27/2015 FLAP, MYOCUTANEOUS OR FASCIOCUTANEOUS, LOWER EXTREMITY performed by Elicia Caal MD at [facility] OR ? ? Pro debridement subcutaneous tissue 20 sqcm/< Left 07/27/2015 DEBRIDEMENT SKIN AND SUBCU, LOWER EXTREMITY performed by Elicia Caal MD at [facility] OR ??? Left 07/27/2015 MODIFIER WOUND VAC performed by Elicia Caal MD at [facility] OR Social History: Patient lives in [place], [place]. Lives with boyfriend. Boyfriend works so [...] pain under control 2/10 @ rest using PRODUCTION FINISHER throughout session, more pain in L LE [...] home. Her SO visiting today and mentioned [facility] or [facility] bed (close to home for them). SO states he works at least 50 hours per week. Total time spent with patient: 50 minutes Total timed interventions: 50 minutes TE-F x 3 ANABEL VELA, PT 07/30/2015 Pager: [phone] Physical Therapy Rehabilitation Department Vesna Moise MD [...] yesterday. Urine out put > 1L yesterday. Sealer Dry Cell is stale to improving today Duplex for [...] w/ Dr. Ignacio Moise Nephrology Fellow Pager [phone] Associated attestation - Karen Pierre MD - [...] She then underwent a second LLE bypass HTML DEVELOPER to PT with PTFE, on 05-26. This was found to be occluded on 06-01. Since that time the patient has had progressive worsening of her medial/distal surgical incision that has failed to heal. Procedures: 07/24: LLE guillotine amp, removal PTFE graft, wound vac, bovine patch HTML DEVELOPER 07/27: Wound vac change, sartorious flap coverate [...] amputation LLE with removal of thrombosed/infected L HTML DEVELOPER-PT PTFE bypass graft, and debridement of L HTML DEVELOPER artery with repair of bovine pericardial patch POD#3 from sartorious flap coverage of exposed HTML DEVELOPER, POD #1 s/p L AKA. . Has [...] nutritious fluids not just liquid 3. Continue PRODUCTION FINISHER for break through pain control and PO pain meds. Will try to transition off of PRODUCTION FINISHER this weekend. Neurontin increased to 400 mg [...] Her pain was controlled well with the PRODUCTION FINISHER pump, and one time PRN dose of [...] She then underwent a second LLE bypass HTML DEVELOPER to PT with PTFE, on 05-26. This was found to be occluded on 06-01. Since that time the patient has had progressive worsening of her medial/distal surgical incision that has failed to heal. Procedures: 07/24: LLE guillotine amp, removal PTFE graft, wound vac, bovine patch HTML DEVELOPER 07/27: Wound vac change, sartorious flap coverate [...] amputation LLE with removal of thrombosed/infected L HTML DEVELOPER-PT PTFE bypass graft, and debridement of L HTML DEVELOPER artery with repair of bovine pericardial patch POD#2 from sartorious flap coverage of exposed HTML DEVELOPER. Continues to do well in this hospitalization. [...] nutritious fluids not just liquid 3. Continue PRODUCTION FINISHER for pain control 4. To OR today for AKA and wound vac change 5. Renal duplex MARIANO MIRAMONTES MD 07/29/2015 Vascular Surgery, PGY-1 Pager: [phone] Karen Thornton MD - 07/29/2015 8:03 PM [...] wound cx yielded MRSA and pseudomonas,transferred to [facility] [place] management.At [facility] she was initiated on iv vancomycin and [...] service will sign off for now,please page [phone] with questions Recommendations discussed with treating team, Consult service will continue to follow patient. x Recommendations are above, please page if further consultation required. Case discussed with ID attending Dr.Talbot Nolberto Starkey MD Infectious Disease fellow Pager [phone] ID ATTENDING I agree with assessment and recommendations above. I reviewed the data set and guided decision-making but did not re-examine the patient today. Karen Thornton MD Page [phone] All of this 35 minute visit were spent on the floor/unit in coordination of care for the patient, regarding treatment of infection as detailed in note above. Bogdan Sullivan MD - 07/29/2015 7:58 PM EST Post-Operative Progress Note Patient: Chan Hurst s/p Surgery: 07/29/2015 [id number] Procedure(s) (LRB): DRESSING CHANGE (FOR OTHER THAN [...] NPN. AVSS. Transported to Pre anesthesia with greeting card writer. Returned from OR AVSS, lethargic, opens [...] monitors applied, alarms set and audible. 1445: PRODUCTION FINISHER button given back to pt. Verbalizes understanding [...] 1L yesterday and 175 today so far. Sealer Dry Cell is STABLE today Duplex for kidneys showed [...] w/ Dr. 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 O: Patient Active Problem List Diagnosis [...] is agreeable to Boost Glucose Control and Zimbabwean yogurt. Plan/Recommendations: Suggest daily multivitamin Suggest check Hgb A1C Suggest consider carb controlled diet if pt becomes hyperglycemic Will offer Boost Glucose Control & Zimbabwean yogurt per request Nutrition Services to follow [...] She then underwent a second LLE bypass HTML DEVELOPER to PT with PTFE, on 05-26. This was found to be occluded on 06-01. Since that time the patient has had progressive worsening of her medial/distal surgical incision that has failed to heal. Procedures: 07/24: LLE guillotine amp, removal PTFE graft, wound vac, bovine patch HTML DEVELOPER 07/27: Wound vac change, sartorious flap coverate for patched femoral artery Recent events/symptoms: OR yesterday Pain increased, needed to adjust PRODUCTION FINISHER No BM x4 days Currently feeling well w/o nausea or abdominal pain. Moderate LLE pain relieved with PRODUCTION FINISHER. O: Last value Range last 24hrs Temperature [...] amputation LLE with removal of thrombosed/infected L HTML DEVELOPER-PT PTFE bypass graft, and debridement of L HTML DEVELOPER artery with repair of bovine pericardial patch POD#1 from sartorious flap coverage of exposed HTML DEVELOPER. Increased pain today from surgery, moderately controlled with PRODUCTION FINISHER. As she hasn't had a BM in [...] nutritious fluids not just liquid 3. Continue PRODUCTION FINISHER for pain control 4. PT/OT. Activity ad timothy. At least OOB to chair MARIANO MIRAMONTES MD 07/28/2015 Vascular Surgery, PGY-1 Pager: [phone] Bogdan Cazares MD - 07/27/2015 10:01 PM [...] Q4 (has not been receiving) and change food taster to max of 5mg per hour. Will [...] She then underwent a second LLE bypass HTML DEVELOPER to PT with PTFE, on 05-26. This [...] abdominal pain. Moderate LLE pain relieved with PRODUCTION FINISHER. O: Last value Range last 24hrs Temperature [...] amputation LLE with removal of thrombosed/infected L HTML DEVELOPER-PT PTFE bypass graft, and debridement of L HTML DEVELOPER artery with repair of bovine pericardial patch. [...] OR today for sartorious flap coverage of HTML DEVELOPER and application of wound vac. Will re-evaluate anahi pearl, most likely will not convert to formal amputation today, although she is consented for a BKA or AKA. PLAN 07/27: 1. Continue to hold Vanc. Zosyn. As above will consult ID for help with abx in light of PANDA. 2. OR today for sart flap and washout 3. Continue PRODUCTION FINISHER for pain control MARIANO MIRAMONTES MD 07/27/2015 Vascular Surgery, PGY-1 Pager: [phone] Brigido Littlejohn - 07/26/2015 5:06 PM EST Venue Manager Encounter Note Patient Name: Chan Hurst : [id number] MR#: [id number] Admit Date: 07/23/2015 6:39 PM Hospital Day 4 days Narrative: Ms. Hurst is a zanjero initiated visit. She is Mosque, values her brigida yet has not had a good health to practice. Assessment: She was scheduled for some surgery which was postponed for today. Intervention and Outcome: Provided pastoral/supportive presence & [facility] for God's [facility] care [facility] Follow-up: Yes Time in Direct Care: 25 [...] She then underwent a second LLE bypass HTML DEVELOPER to PT with PTFE, on 05-26. This [...] amputation LLE with removal of thrombosed/infected L HTML DEVELOPER-PT PTFE bypass graft, and debridement of L HTML DEVELOPER artery with repair of bovine pericardial patch. Overall she is doing well, however her Cr has bumped from 0.3-->0.9-->1.45 indicative of PANDA from supratherapeutic vancomycin. Last night her vanc trough was 23.2. We will continue to give MIVF to help perfuse her kidneys and hopefully decrease any further injury. Plan for the OR today for sartorious flap coverage of HTML DEVELOPER and application of wound vac. Will re-evaluate guillotine amp, most likely will not convert to formal amputation today. PLAN 07/26: 1. Continue to hold Vanc. Zosyn. Per OSH records, patient growing pseudomonas and S.aureus in ankle wound senstive to Zosyn and Vancomycin respectively. 2. OR today for sart flap and washout MARIANO MIRAMONTES MD 07/26/2015 Vascular Surgery, PGY-1 Pager: [phone] Mariano Miramontes MD - 07/25/2015 4:17 PM [...] She then underwent a second LLE bypass HTML DEVELOPER to PT with PTFE, on 05-26. This [...] I.V.:3709.2] Out: 1100 [Urine:450] Carb Control diet //75 CHO counting level 2 NPO diet (Give [...] amputation LLE with removal of thrombosed/infected L HTML DEVELOPER-PT PTFE bypass graft, and debridement of L HTML DEVELOPER artery with repair of bovine pericardial patch. Today her Cr is elevated after getting supratherapeutic Vancomycin (trough 26.8). PLAN 07/25: 1. Stop Vanc and remeasure trough this evening. Restart at much lower dose as determined by pharmacy. Continue Zosyn. Will attempt to obtain culture and sensitivity results from [facility] to better guide therapy. 2. Cr 0.3-->0.9. Will give MIVF and continue to follow 3. 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 Jamila Boyd [facility] - 07/25/2015 11:24 AM EST Clinical Pharmacist Note-Vanc Chan Hurst [id number] 1950 Chan Hurst is a 64 y.o. [...] have. Alternately, during off-hours you may call [phone] to contact a pharmacist. JAMILA BOYD [facility] Pager [phone] Rachelel López MD - 07/24/2015 5:56 PM EST Post-Operative Progress Note Patient: Chan Hurst s/p Surgery: 07/24/2015 [id number] Procedure(s) (LRB): @AMPUTATION, BELOW-KNEE, OPEN, GUILLOTINE (Left) [...] answers orientation questions but is still drowsy. HOME SCHOOL COORDINATOR reported that pt was slow towake up. [...] or will get an ISCU room. Mariano Miramontes MD - 07/24/2015 12:06 PM EST [...] She then underwent a second LLE bypass HTML DEVELOPER to PT with PTFE, on 05-26. This was found to be occluded on 06-01. Since that time the patient has had progressive worsening of her medial/distal surgical incision that has failed to heal. Recent events/symptoms: Transferred from [facility] Quite sedated at first due to morphine/ativan given before transport Now alert and communicating. O: Last value Range last 24hrs Temperature Temp: 36.7 ??C (98.1 ??F) Temp: [36.7 ??C (98.1 ??F)-37.3 ??C (99.1 ??F)] Heart Rate Heart Rate: 70 Heart Rate: [69-81] Blood Pressure BP: 105/56 mmHg BP: (105-140)/(55-73) Respiratory Rate Resp: 16 Resp: [11-] SpO2 SpO2: 97 % SpO2: [97 %-98 [...] lower extremity. She has been treated at [facility] since 07/20 with IV Vanc and ceftaz for MRSA and pseudomonas infection in LLE. As there is no further ability to revascularize leg will proceed with guillotine amputation LLE with planned subsequent revision. As above TcP02 are adequate to heal a BKA. PLAN 07/24: 1. Continue IV Vanc/Zosyn 2. OR Today for L guillotine amputation MARIANO MIRAMONTES MD 07/24/2015 Vascular Surgery, PGY-1 Pager: [phone] Estrellita Wilson RN - 07/23/2015 7:49 PM EST Details from [facility] report: -NKDA - Planned BKA tomorrow for [...] 07/23/2015 6:49 PM EST Report received form [facility]. Pt admitted to floor via stretcher [...] RN. documented in this encounter H&P Notes Alex Blancasssconnor Good - 07/23/2015 7:41 PM EST Images from the original note were not included. Vascular Surgery - Admission Note Patient Name: Chan Hurst : [id number] MR#: [id number] 07/23/2015 Hospital Day 0 days HPI: 64yo [...] She then underwent a second LLE bypass HTML DEVELOPER to PT with PTFE, on 05-26. This was found to be occluded on 06-01. Since that time the patient has had progressive worsening of her medial/distal surgical incision that has failed to heal. With no additional revasc options she was offered opportunity to enrol in stemcell trial, but declined. 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 On 07-20-15 she present to [facility] with SIRS physiology, felt to be related to her leg wound. She declined transfer to [facility] for amputation at that time and was [...] at 72y. Father at age 72 from [place]. Two sisters, overweight, but otherwise healthy. One [...] to the planned procedure. Hand Hygiene: The epic willow specialist did perform hand hygiene prior to line insertion. Catheter type: PICC Lot number: [id number] Procedure Technique: Skin was prepped with chlorhexidine. [...] Health Knowledge, Opportunity for Enhanced (Adult, NICU, [place], Obstetrics, Pediatric) Goal: Knowledgeable about Health Subject/Topic Patient will demonstrate the desired outcomes. Outcome: Outcome (s) achieved Date Met: 08/03/15 Peripherally Inserted Central Catheter (PICC) Teaching Sheet Peripherally inserted central catheters (vhub-nx-oxpl) (PICC) are used when you need IV [...] midline catheter? PICC lines are used for risk lead treatments. PICC lines may be used for [...] can be set up via the nurse Wigs Salesperson to help you. What are possible complications [...] and Administration of [employer] 2005 [facility] - Vijaya Sweeney RN - 08/03/2015 4:28 [...] Review Outcome: Ongoing (Interventions Implemented as Appropriate) 07/29/152 08/02/15 0830 Plan of Care Review Plan [...] Outcome: Ongoing (Interventions Implemented as Appropriate) 08/01/15 19508/02/15 0830 Safety Interventions Isolation Precautions standard precautions [...] patient tolerance;low stimulation maintained;sleep/rest promoted Intervention: Functional [place] Promotion 08/01/152021 Musculoskeletal Interventions Functional [place] Promotion adaptive equipment provided;independence in BADLs promoted;instruction [...] Ligation and removal of thrombosed, infected left HTML DEVELOPER-PT PTFE bypass graft. ?? 5. Placement of [...] CONDUIT ([place] [address]) performed by Mariano Doyle MD at [facility] MAIN OR ??? Pro bypass graft othr, fem-tibial Left 05/26/2015 @BYPASS GRAFT, FEM-ANT TIBIAL, -POST TIBIAL, -PERONEAL, -DP W\ SYNTHETIC CONDUIT performed by Mariano Doyle MD at [facility] MAIN OR ??? Pro bypass graft vein patch/cuff, synthetic Left 05/26/2015 PLACEMENT VEIN PATCH OR CUFF AT DISTAL ANASTOMOSIS OF BYPASS GRAFT, SYNTHETIC CONDUIT , RODRIGUEZ-COLLAR, RACHELLE-PATCH, ADD-ON CODE, LOWER EXTREMITY performed by Mariano Doyle MD at [facility] OR ??? Pro thromboendartectmy iliofemoral Left 05/26/2015 @ENDARTERECTOMY, ILIOFEMORAL W OR W/O PATCH GRAFT performed by Mariano Doyle MD at [facility] OR ??? Pro reoperation, bypass graft Left 05/26/2015 @RE-OP FOR RE-DO LOWER EXTREMITY BYPASS GRAFT, >1 MONTH P\ ORIGINAL SURGERY, ADD-ON CODE performed by Mariano Doyle MD at [facility] OR ??? Pro amputation low leg, circular Left 07/24/2015 @AMPUTATION, BELOW-KNEE, OPEN, GUILLOTINE performed by Elicia Caal MD at [facility] OR ??? Pro exploration, femoral artery Left 07/24/2015 @EXPLORATION, W/WO LYSIS, FEMORAL ARTERY W\O SURGICAL REPAIR performed by Elicia Caal MD at [facility] OR ??? Pro negative pressure wound therapy, less than or equal to 50 sqcm Left 07/24/2015 DRESSING CHANGE (VAC ASSISTED) UP TO 50SQ.CM performed by Elicia Caal MD at [facility] OR ??? Pro rebl ves direct, low extrem Left 07/24/2015 REPAIR LOWER EXTREMITY BLOOD VESSEL, DIRECT, NO PATCH OR GRAFT performed by Elicia Caal MD at [facility] OR ??? Pro excision, infec graft, extremity Left 07/24/2015 EXCISION OF INFECTED GRAFT FROM LOWER EXTREMITY performed by Elicia Caal MD at [facility] OR ??? Pro muscle-skin flap, leg Left 07/27/2015 FLAP, MYOCUTANEOUS OR FASCIOCUTANEOUS, LOWER EXTREMITY performed by Elicia Caal MD at [facility] OR ? ? Pro debridement subcutaneous tissue 20 sqcm/< Left 07/27/2015 DEBRIDEMENT SKIN AND SUBCU, LOWER EXTREMITY performed by Elicia Caal MD at [facility] OR ??? Left 07/27/2015 MODIFIER WOUND VAC performed by Elicia Caal MD at [facility] OR Social History: Patient lives with her [...] right slipper Toileting ?? [facility] with nursing IADLs: ?? Will [...] minutes Total timed interventions: 0 minutes Pager: [phone] DEBI DUBON OT 07/31/2015 Occupational Therapy Rehabilitation Department Op Note - Juliano Allen - 07/29/2015 2:00 PM EST [facility] Operative Note Patient Name: Chan Hurst : 1950 MR#: [id number] Case Date: 07/29/2015 Date of Operation: 07/29/2015. [...] Operative Note Patient Name: Chan Hurst : [id number] MR#: [id number] Case Date: 07/29/2015 Surgeon: Surgeon(s) and Role: [...] Drains: Drain/Device Site 07/24/15 Left medial calf [place] (Active) Insertion Site dressing intact 07/29/2015 8:00 [...] Outcome: Ongoing (Interventions Implemented as Appropriate) 07/29/15 050 Plan of Care Review Plan of Care Outcome Status ongoing (interventions implemented as appropriate) Progress no change Coping/Psychosocial Response Interventions Plan of Care Reviewed with patient OUTCOME EVALUATION NOTE: OUTCOME SUMMARY: Patient has been stable overnight. Pain well controlled with PRODUCTION FINISHER pump and PRN tylenol and oxycodone.She did complain of some pain in her amputated leg while being repositioned. I encouraged her to push her PRODUCTION FINISHER button to receive pain medication. NPO for [...] Assessment Outcome: Ongoing (Interventions Implemented as Appropriate) 07/29/15501 Discharge Needs Assessment Concerns to be Addressed [...] MRSA and pseudomonas. she was transferred to [facility] for further evaluation and underwent BKA of [...] CONDUIT ([place] [address]) performed by Mariano Doyle MD at [facility] MAIN OR ??? Pro bypass graft othr, fem-tibial Left 05/26/2015 @BYPASS GRAFT, FEM-ANT TIBIAL, -POST TIBIAL, -PERONEAL, -DP W\ SYNTHETIC CONDUIT performed by Mariano Doyle MD at [facility] OR ??? Pro bypass graft vein patch/cuff, synthetic Left 05/26/2015 PLACEMENT VEIN PATCH OR CUFF AT DISTAL ANASTOMOSIS OF BYPASS GRAFT, SYNTHETIC CONDUIT , RODRIGUEZ-COLLAR, RACHELLE-PATCH, ADD-ON CODE, LOWER EXTREMITY performed by Mariano Doyle MD at [facility] OR ??? Pro thromboendartectmy iliofemoral Left 05/26/2015 @ENDARTERECTOMY, ILIOFEMORAL W OR W/O PATCH GRAFT performed by Mariano Doyle MD at [facility] OR ??? Pro reoperation, bypass graft Left 05/26/2015 @RE-OP FOR RE-DO LOWER EXTREMITY BYPASS GRAFT, >1 MONTH P\ ORIGINAL SURGERY, ADD-ON CODE performed by Mariano Doyle MD at [facility] OR ??? Pro amputation low leg, circular Left 07/24/2015 @AMPUTATION, BELOW-KNEE, OPEN, GUILLOTINE performed by Elicia Caal MD at [facility] OR ??? Pro exploration, femoral artery Left 07/24/2015 @EXPLORATION, W/WO LYSIS, FEMORAL ARTERY W\O SURGICAL REPAIR performed by Elicia Caal MD at [facility] OR ??? Pro negative pressure wound therapy, less than or equal to 50 sqcm Left 07/24/2015 DRESSING CHANGE (VAC ASSISTED) UP TO 50SQ.CM performed by Elicia Caal MD at [facility] OR ??? Pro rebl ves direct, low extrem Left 07/24/2015 REPAIR LOWER EXTREMITY BLOOD VESSEL, DIRECT, NO PATCH OR GRAFT performed by Elicia Caal MD at [facility] OR ??? Pro excision, infec graft, extremity Left 07/24/2015 EXCISION OF INFECTED GRAFT FROM LOWER EXTREMITY performed by Elicia Caal MD at [facility] OR ??? Pro muscle-skin flap, leg Left 07/27/2015 FLAP, MYOCUTANEOUS OR FASCIOCUTANEOUS, LOWER EXTREMITY performed by Elicia Caal MD at [facility] OR ? ? Pro debridement subcutaneous tissue 20 sqcm/< Left 07/27/2015 DEBRIDEMENT SKIN AND SUBCU, LOWER EXTREMITY performed by Elicia Caal MD at [facility] OR ??? Left 07/27/2015 MODIFIER WOUND VAC performed by Elicia Caal MD at [facility] MAIN OR Family History Problem [...] days Hb 9 K 3.9 BUN 20 proof plate maker 1.85 FeNa 1.3 vanco level 26.8 from [...] w/ Dr. Ritesh Moise Nephrology Fellow Pager [phone] Renal Attending Inpatient Consult We are asked [...] Caal, Elicia Uriarte, * in transfer from [facility] for Vascular service consult who presents now with wet gangreneof the left lower extremity. 07-24-15: OR Procedure(s): 1. Left below-knee guillotine amputation 2. Incision and drainage of multiple LLE abscesses 3. Left common femoral artery exposure, debridement and repair with bovine pericardial patch. 4. Ligation and removal of thrombosed, infected left HTML DEVELOPER-PT PTFE bypass graft. ?? 5. Placement of [...] She then underwent a second LLE bypass HTML DEVELOPER to PT with PTFE, on 05-26. This was found to be occluded on 06-01. Since that time the patient has had progressive worsening of her medial/distal surgical incision that has failed to heal. With no additional revasc options she was offered opportunity to enrol in stemcell trial, but declined. 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 On 07-20-15 she present to [facility] with SIRS physiology, felt to be related to her leg wound. She declined transfer to [facility] for amputation at that time and was [...] CONDUIT ([place] [address]) performed by Mariano Doyle MD at [facility] MAIN OR ??? Pro bypass graft othr, fem-tibial Left 05/26/2015 @BYPASS GRAFT, FEM-ANT TIBIAL, -POST TIBIAL, -PERONEAL, -DP W\ SYNTHETIC CONDUIT performed by Mariano Doyle MD at [facility] MAIN OR ??? Pro bypass graft vein patch/cuff, synthetic Left 05/26/2015 PLACEMENT VEIN PATCH OR CUFF AT DISTAL ANASTOMOSIS OF BYPASS GRAFT, SYNTHETIC CONDUIT , MICHAEL-COLLAR, RACHELLE-PATCH, ADD-ON CODE, LOWER EXTREMITY performed by Mariano Doyle MD at [facility] MAIN OR ??? Pro thromboendartectmy iliofemoral Left 05/26/2015 @ENDARTERECTOMY, ILIOFEMORAL W OR W/O PATCH GRAFT performed by Mariano Doyle MD at [facility] MAIN OR ??? Pro reoperation, bypass graft Left 05/26/2015 @RE-OP FOR RE-DO LOWER EXTREMITY BYPASS GRAFT, >1 MONTH P\ ORIGINAL SURGERY, ADD-ON CODE performed by Mariano Doyle MD at [facility] MAIN OR ??? Pro amputation low leg, circular Left 07/24/2015 @AMPUTATION, BELOW-KNEE, OPEN, GUILLOTINE performed by Elicia Caal MD at [facility] OR ??? Pro exploration, femoral artery Left 07/24/2015 @EXPLORATION, W/WO LYSIS, FEMORAL ARTERY W\O SURGICAL REPAIR performed by Elicia Caal MD at [facility] OR ??? Pro negative pressure wound therapy, less than or equal to 50 sqcm Left 07/24/2015 DRESSING CHANGE (VAC ASSISTED) UP TO 50SQ.CM performed by Elicia Caal MD at [facility] MAIN OR ??? Pro rebl ves direct, low extrem Left 07/24/2015 REPAIR LOWER EXTREMITY BLOOD VESSEL, DIRECT, NO PATCH OR GRAFT performed by Elicia Caal MD at [facility] OR ??? Pro excision, infec graft, extremity Left 07/24/2015 EXCISION OF INFECTED GRAFT FROM LOWER EXTREMITY performed by Elicia Caal MD at [facility] OR Social History: Patient lives in [place], [place]. Lives with boyfriend. Boyfriend works so [...] in chair to eat lunch. Discussed with demi chef back to bed later from the chair: [...] 0 minutes ANABEL VELA, PT 07/28/2015 Pager: [phone] Physical Therapy Rehabilitation Department Consult Note - Donita Agrawal RN - 07/28/2015 11:05 AM EST Images from the original note were not included. Certified Wound Care Nurse Note Situation: Asked to see Chanjaci Hurst by nursing for fissure to sacrum after the OR Background: eD-H notes reviewed for history, admitting diagnosis and active problem list. Wound Assessment and Care Provided: Pt sitting up in bed, s/p surgery. RN states previous concern for kenneth wrap to LLE, per double ending machine operator removed and re-dressed by surgery. Dressing intact at time of assessment and being managed by vascular surgery. Explained purpose of visit and pt agreed to assessment. Pt turned self to left side with minassist. Pt used PRODUCTION FINISHER prior to turn. Sacral mepilex dressing removed. [...] Please contact DONITA AGRAWAL RN on pager [phone] or the wound care team at [phone] or pager [phone] with skin and wound care concerns or [...] sacrum. Pain seemed to me managed with PRODUCTION FINISHER. Did not need additional interventions for pain [...] Handling Outcome: Ongoing (Interventions Implemented as Appropriate) 07/27/15199907/28/15399 Safety Interventions Safety Precautions/Fall Reduction -- environmental [...] Control Outcome: Ongoing (Interventions Implemented as Appropriate) 07/27/15199907/28/15399 Safety Interventions Isolation Precautions -- standard precautions [...] (Interventions Implemented as Appropriate) 07/27/15 0552 07/27/15 08 Plan of Care Review Plan of Care [...] as Appropriate) 07/27/15 0807/27/15 1100 Safety Interventions Isolation Precautions -- standard precautions maintained Infection Prevention hydration promoted;environmental surveillance;promote handwashing;rest/sleep promoted -- Coping/Psychosocial Response Interventions Counseling calming techniques promoted;emotional support provided;reassurance provided -- Goal: Discharge Needs Assessment Outcome: Ongoing (Interventions Implemented as Appropriate) 07/24/15 0425 07/24/15 0456 07/24/15 045 Discharge Needs Assessment Concerns to be Addressed -- -- adjustment to diagnosis/illness concerns Self-Care Equipment Currently Used at Home -- cane, straight;walker, standard;shower chair -- Living Environment Transportation Available family or friend will provide -- -- Problem: Skin Integrity Impairment, Risk/Actual (Adult, Obstetrics) Intervention: Pressure Reduction Devices 01/799 Skin Interventions Pressure Reduction Devices positioning supports [...] Outcome: Ongoing (Interventions Implemented as Appropriate) 07/25/15 [id number] Lower Extremity Amputation Problems Assessed (Lower Extremity [...] OUTCOME SUMMARY: To OR today, see note. PRODUCTION FINISHER for pain mgmt. Vac Dsg to -125 @ change of shift. Diet advanced, tolerated well. PLAN MOVING FORWARD: wound vac, pain mgmt, ? Return to OR INDIVIDUALIZED FALL PREVENTION: Assistance: bedrest Supervision: By RN station, tele, spo2 Surveillance: Bed alarm CPG GOAL OUTCOME EVALUATION: Op Note - Juliano Allen - 07/27/2015 2:46 PM EST [facility] [place] Patient Name: Chan Hurst : 1950 MR#: [id number] Case Date: 07/27/2015 Date of Operation: 07/27/2015. [...] Operative Note Patient Name: Chan Hurst : [id number] MR#: [id number] Case Date: 07/27/2015 Surgeon: Surgeon(s) and Role: [...] Birthdate: 1950 Admit date: 07/23/2015 Attending Physician: Stableford, Elicia A, * INFECTIOUS DISEASE FELLOW INPATIENT CONSULT NOTE [...] revealed MRSA and pseudomonas,she was transferred to [facility] [place] further evaluation. [place] [facility] she was started on iv vancomycin and pip tazo, evaluated by vascular surgery taken to OR on 07/24/15 s/p guillotine BKA of left LE with large amounts of purulent drainage expressed from the graft tunnel,incision was extended along medial calf s/p removal of PTFE graft and bovine patch debrided til HTML DEVELOPER and new bovine patch,small collection in left [...] instability Psych: denies mood disorder, sleep disturbance [facility] Past Medical History Diagnosis Date ??? HTN [...] Vancomycin Sensitive Imaging: No new imaging at [facility] Impression:Chan Hurst is a 64 y.o. female with above mentioned multiple comorbidities p/w leftfoot wet gangrene to OSH with septic physiology wound cx yielded MRSA and pseudomonas,[facility].[place] [facility] she was initiated on iv vancomycin and [...] will continue to follow the patient,please page [phone] with questions Above recommendations were communicated with the primary team x Recommendations discussed with primary team. Consult service will continue to follow patient. Recommendations discussed with primary team. ID will sign off. Please page [phone] if further consultation required. Case discussed with ID attending Dr.Talbot NOLBERTO STARKEY MD, Fellow, Infectious Disease Pager [phone] Infectious Diseases Attending I saw the patient with the infectious diseases fellow, and agree with the presentation of data and the assessment and plan as outlined above. Karen Thornton MD [employer] Page [phone] 35 minutes of this 55 minute visit [...] effectively managed with PRN oxycodone and dilaudid PRODUCTION FINISHER. NPO at midnight and maintenance fluids at 50 cc/hr. L. Groin wound vac with approx 100 cc serosangoutput. PLAN MOVING FORWARD: OR today, pain control, SBP <150 INDIVIDUALIZED FALL PREVENTION: Assistance: 2 assist with turn/repo Supervision: Per Rn Surveillance: [place] [place]: Plan of Care - [...] of the day and easily arousible. Using PRODUCTION FINISHER appropriately, given prn oxycodone for pain managment. [...] Assessment Outcome: Ongoing (Interventions Implemented as Appropriate) 07/24/1542407/24/1545507/24/15 045 Discharge Needs Assessment Concerns to be [...] AM EST Clinical Pharmacist Note-Vanc Chan Hurst [id number] 1950 Chan Hurst is a 64 y.o. [...] have. Alternately, during off-hours you may call [phone] to contact a pharmacist. BAO KUMAR PHARMD Pager [phone] Plan of Care - Angelika Fox RN [...] would complain of LLE pains - reinforced PRODUCTION FINISHER education and administered PRN tylenol with good effect. Neurovascular assessments remain unchanged as documented in adult patient care summary. PLAN MOVING FORWARD: ~NPO at midnight in anticipation of OR washout tomorrow ~Reinforce PRODUCTION FINISHER education for pain management and supplement with [...] Chela Blancas - 07/24/2015 5:05 PM EST [facility] [place]ative Note Patient Name: Chan Hurst : [id number] MR#: [id number] Case Date: 07/24/2015 Case Date: 07/24/2015 Surgeon: [...] Ligation and removal of thrombosed, infected left HTML DEVELOPER-PT PTFE bypass graft. ?? 5. Placement of [...] ligated and resected; bovine pericardial patch resected, HTML DEVELOPER debrided and repaired with new bovine pericardial [...] She then underwent a second LLE bypass HTML DEVELOPER to PT with PTFE, on 05-26. This [...] graft must be explanted and the left HTML DEVELOPER be explored. Hemostasis of the amputation site [...] through copious scar tissue onto the EIA, HTML DEVELOPER, PTFE bypass graft with underlying bovine patch; [...] was removed sharply with an 11-blade. The HTML DEVELOPER was debrided sharply with the 11-blade, back to healthy appearing tissue. The wound and graft tunnel were aggressively irrigated. The artery was then repaired with bovine pericardial patch angioplasty using 6-0 prolene in a running fashion. All vessels were unclamped. Doppler signals were confirmed in HTML DEVELOPER and profunda artery. Thrombin-soaked gelfoam was applied [...] Operative Note Patient Name: Chan Hurst : [id number] MR#: [id number] Case Date: 07/24/2015 Surgeon: Surgeon(s) and Role: [...] Ligation and removal of thrombosed, infected left HTML DEVELOPER-PT PTFE bypass graft. 5. Placement of wound [...] ligated and resected; bovine pericardial patch resected, HTML DEVELOPER debrided and repaired with new bovine pericardial [...] Diagnosis LAB SCAN 08/04/2015 12:00 AM EST FRAMING CONSULTANT SCAN 08/04/2015 12:[address] PICC [...] TYPE AND SCREEN Routine 08/02/2015 8:27 AM ([facility]CGP/[facility]) EST PREPARE RBC Routine 08/02/2015 8:15 AM [...] the results section. POCT GLUCOSE Routine 07/29/2015 11:40 Results for [...] MODIFIER WOUND VAC 07/27/2015 1:17 PM LLE guillotene B KA, EST left groin wound with wound vac in place FLAP, MYOCUTANEOUS OR 07/27/2015 1:17 PM LLE guilzoeen e BKA, FASCIOCUTANEOUS, EST left groin wound LOWER [...] TYPE AND SCREEN Routine 07/23/2015 8:50 PM ([facility]CGMaty/[facility]DOM[facility]) EST VANCOMYCIN, TROUGH Timed 07/23/2015 8:50 PM Res ults for this EST procedure are i n the results section. BASIC METABOLIC PANEL Routine 07/23/2015 8:50 PM Results for this (NON-FASTING) EST procedure are in the results section. AMPUTATION, Routine 07/23/2015 8:18 PM BELOW-KNEE, OPEN, EST GUILLOTINE documented in this encounter Results SCAN DOC: FRAMING CONSULTANT (08/04/2015 12:00 AM EST) Narrative This result has an attachment that is no t available. Scanning Provider MEDIA MGR SCAN EXT ORDR/RSLT SCAN DOC: LAB (08/04/2015 12:00 AM EST) Narrative This result has an attachment that is no t available. Scanning Provider MEDIA MGR SCAN EXT ORDR/RSLT Place PICC Line: Contact Vascular Access Page [phone] Extremity to exclude: No restrictions; Is PICC procedure required PRIOR to patients discharge?: Yes (08/03/2015 12:25 PM EST) Narrative Javier Flores, RN - 08/03/2015 12:25 P M EST Javier Flores, JOSEPH ? 08/03/2015 12:25 PM PICC/Midline Insertion Procedure [...] the planned procedu re. Hand Hygiene: The epic willow specialist did perform hand hygiene pr ior to line insertion. Catheter type: PICC Lot number: [id number] Procedure Technique: Skin was prepped with chlorhexidine. [...] a 0.018 inch guidewire using modified seld delilha technique and fluoroscopy. Arm circumference was 23 [...] CARE TEST ORDERABLE S Performing Organization Address City/[facility]/[place] [address] CERNER MILLENNIUM POCT Glucose [...] CARE TEST ORDERABLE S Performing Organization Address City/[facility]/ZIP Code Phon e Number [address] CERNER MILLENNIUM (ABNORMAL) Differential, Automated (08/03/2015 4:40 AM EST) [facility] gist Method Time Signature Neutrophils % 79.1 [...] Organization Address City/State/[place] [address] CERNER MILLENNIUM (ABNORMAL) Hemogram [...] Organization Address City/State/ZIP Code Phon e Number [place] [phone] CERNER MILLENNIUM (ABNORMAL) Basic Metabolic Panel (non-fasting) (08/03/2015 4:40 AM EST) athologist Signature Glucose Lvl 152 65 - 199 CERNER mg/dL MILLENNIUM Comment: Diabetes: >=200 mg/dL plus symp toms BUN 20 (H) 8 - 18 mg/dL CERNER MILLENNIUM Creatinine 1.31 (H) 0.70 - 1.20 mg/dL CERNER MILL ENNIUM Comment: Please note that the pediatric reference intervals supplied above were not validated at [facility]. Results from pediatri c patients should be [...] Calcium 8.0 (L) 8.5 - 10.5 mg/dL DANIEL LAU Estimated GFR 41 (L) >=60 DANIEL Ryan Comment: This estimated GFR (eGFR) value was [...] the following links into your internet browser. http://Defense.Net/DHnkdep http://Defense.Net/DHMCnkf Specimen Anatomical Collection Method Collection Time Receive d Time (Source) Location / / Volume Laterality Blood specimen 08/03/2015 4:40 AM 016 4:57 (specimen) EST AM EST Resulting Agency Comment Spec In Lab Elicia Caal MD CHEMISTRY ORDERABLES Performing Organization Address City/[facility]/ZIP Code Phon e Number [address] CERNER MILLENNIUM POCT Glucose (08/03/2015 3:32 AM EST) athologist Signature POC Glucose 145 65 - [...] CARE TEST ORDERABLE S Performing Organization Address City/[facility]/ZIP [facility] Phon e Number [address] CERNER MILLENNIUM POCT Glucose [...] Organization Address City/State/ZIP Code Phon e Number [address] CERNER MILLENNIUM POCT Glucose (08/02/2015 7:17 PM EST) athologist Signature POC Glucose 181 65 - 199 CERNER mg/dL MILLENNIUM [...] Organization Address City/State/ZIP Code Phon e Number [address] CERNER MILLENNIUM (ABNORMAL) POCT Glucose (08/02/2015 4:32 PM EST) athologist Signature POC Glucose 223 (H) 65 - 199 CERNER mg/dL [facility] Comment: Supplemental ranges: <140 mg/dL before meals <180 mg/dL all other times of the day Specimen Anatomical Collection Method Collection Time Receive d Time (Source) Location / / Volume Laterality Blood specimen 08/02/2015 4:32 PM 016 4:32 (specimen) EST PM EST Elicia Caal MD POINT OF CARE TEST ORDERABLE S Performing Organization Address City/State/ZIP Code Phon e Number [address] CERNER MILLENNIUM U24 Hrs [...] Pierre MD CHEMISTRY ORDERABLES Performing Organization Address City/[facility]/[place] [address] CERNER MILLENNIUM (ABNORMAL) Creatinine [...] Pierre MD URINE ORDERABLES Performing Organization Address City/[facility]/[place] [address] CERNER MILLENNIUM Transfuse RBC (08/02/2015 [...] CARE TEST ORDERABLE S Performing Organization Address City/[facility]/ZIP Code Phon e Number [place] [address] [facility] Antibody screen (08/02/2015 8:27 AM EST) [facility] gist Method Time Signature Ab Screen Negative CERPILI Inter MILLENNIUM Expires at 08/05/2015 CERNER 2359 on: MILLENNIUM Specimen Anatomical Collection Method Collection Time Receive d Time (Source) Location / / Volume Laterality Blood specimen 08/02/2015 8:27 AM 016 8:33 (specimen) EST AM EST Resulting Agency Comment Spec In Lab Elicia Caal MD BLOOD BANK ORDERABLES Performing Organization Address City/State/ZIP Code Phon e Number [address] [facility] ABO/Rh Typing (08/02/2015 8:27 AM EST) athologist Signature ABORh Type A Neg [facility] Specimen Anatomical Collection Method Collection Time Receive d Time (Source) Location / / Volume Laterality Blood specimen 08/02/2015 8:27 AM 016 8:33 (specimen) EST AM EST Resulting Agency Comment Spec In Lab Elicia Caal MD BLOOD BANK ORDERABLES Performing Organization Address City/State/ZIP Code Phon e Number [address] [facility] Prepare RBC (08/02/2015 8:15 AM EST) athologist Signature Dispensed? Yes [facility] Specimen Anatomical Collection Method Collection Time Receive d Time (Source) Location / / Volume Laterality Blood specimen 08/02/2015 8:15 AM 016 8:14 (specimen) EST AM EST Resulting Agency Comment Spec In Lab Elicia Caal MD BLOOD BANK ORDERABLES Performing Organization Address City/State/ZIP Code Phon e Number [address] [facility] POCT Glucose (08/02/2015 7:02 AM EST) athologist Signature POC Glucose 184 65 - 199 CERNER mg/dL [facility] Comment: Supplemental ranges: <140 mg/dL before meals <180 mg/dL all other times of the day Specimen Anatomical Collection Method Collection Time Receive d Time (Source) Location / / Volume Laterality Blood specimen 08/02/2015 7:02 AM 016 7:02 (specimen) EST AM EST Elicia Caal MD POINT OF CARE TEST ORDERABLE S Performing Organization Address City/State/[place] [address] CERNER MILLENNIUM (ABNORMAL) Differential, Automated (08/02/2015 5:05 AM EST) [facility] Method Time Signature Neutrophils % 81.0 % [...] Caal MD HEMATOLOGY ORDERABLES Performing Organization Address City/[facility]/ZIP [facility] [place] [address] CERNER MILLENNIUM (ABNORMAL) Hemogram (08/02/2015 5:05 AM EST) P athologist Signature WBC 12.1 (H) 4.0 - [...] Caal MD HEMATOLOGY ORDERABLES Performing Organization Address City/[facility]/[place] [address] CERNER MILLENNIUM (ABNORMAL) Basic Metabolic Panel (non-fasting) (08/02/2015 5:05 AM EST) P athologist Signature Glucose Lvl 173 65 - 199 CERNER mg/dL MILLENNIUM Comment: Diabetes: >=200 mg/dL plus symp toms BUN 22 (H) 8 - 18 mg/dL CERNER MILLENNIUM Creatinine 1.21 (H) 0.70 - 1.20 mg/dL CERNER MILL ENNIUM Comment: Please note that the pediatric reference intervals supplied above were not validated at [facility]. Results from pediatri c patients should be [...] the following links into your internet browser. http://Defense.Net/DHnkdep http://Defense.Net/DHMCnkf Specimen Anatomical Collection Method Collection Time Receive d Time (Source) Location / / Volume Laterality Blood specimen 08/02/2015 5:05 AM 016 5:21 (specimen) EST AM EST Resulting Agency Comment Spec In Lab Elicia Caal MD CHEMISTRY ORDERABLES Performing Organization Address City/State/Z[place] [address] CERNER MILLENNIUM POCT Glucose (08/02/2015 3:08 AM EST) athologist Signature POC Glucose 169 65 - [...] CARE TEST ORDERABLE S Performing Organization Address City/[facility]/[place] [address] CERNER MILLENNIUM POCT Glucose (08/02/2015 12:08 AM EST) P athologist Signature POC Glucose 190 65 - 199 CERNER mg/dL [facility] Comment: Supplemental ranges: <140 mg/dL before meals <180 mg/dL all other times of the day Specimen Anatomical Collection Method Collection Time Receive d Time (Source) Location / / Volume Laterality Blood specimen 08/02/2015 12:08 6 (specimen) AM EST 12:08 AM EST Elicia Caal MD POINT OF CARE TEST ORDERABLE S Performing Organization Address City/[facility]/ZIP Code Phon e Number [address] CERNER MILLENNIUM (ABNORMAL) POCT Glucose (08/01/2015 6:52 PM EST) P athologist Signature POC Glucose 230 (H) 65 - 199 CERNER mg/dL [facility] Comment: Supplemental ranges: <140 mg/dL before meals <180 mg/dL all other times of the day Specimen Anatomical Collection Method Collection Time Receive d Time (Source) Location / / Volume Laterality Blood specimen 08/01/2015 6:52 PM 016 6:52 (specimen) EST PM EST Elicia Caal MD POINT OF CARE TEST ORDERABLE S Performing Organization Address City/[facility]/ZIP Code Phon e Number [address] CERNER MILLENNIUM (ABNORMAL) POCT [...] CARE TEST ORDERABLE S Performing Organization Address City/[facility]/ZIP Code Phon e Number [address] [facility] Cystatin C (08/01/2015 1:50 PM EST) athologist Signature Cystatin C 1.22 0.66 - 1.26 CERNER mg/L [facility] Comment: Test Performed by: [facility] [place] [address] Pst Manager: Bharat Campos II, M.D., Ph.D. Cystatin C eGFR 55 >60 mL/min/BSA [facility] Comment: ADDITIONAL INFORMATIO N Cystatin C-based eGFR may differ substan tially from creatinine-based eGFR in patients with a bnormal muscle mass or acutely changing renal function. ??Pl ease interpret together with relevant clinical features . Test Performed by: [facility] [place] [address] Pst Manager: Bharat Campos II, M.D., Ph.D. Specimen Anatomical Collection Method Collection Time Receive d Time (Source) Location / / Volume Laterality Blood specimen 08/01/2015 1:50 PM 016 3:31 (specimen) EST PM EST Resulting Agency Comment Spec In Lab Karen Pierre MD CHEMISTRY ORDERABLES Performing Organization Address City/[facility]/ZIP Code Phon e Number [address] CERNER MILLENNIUM (ABNORMAL) POCT Glucose (08/01/2015 12:29 PM EST) P athologist Signature POC Glucose 209 (H) 65 - 199 CERNER mg/dL MILLENNIUM [...] Organization Address City/State/ZIP Code Phon e Number [place] [phone] CERNER MILLENNIUM XR Chest Routine PA & Lateral (08/01/2015 [...] ? COMPAR[facility]: [facility] FINDINGS: Fine reticular markings in the lateral [...] hest. COMPARISON: 07/20/2015 from an outside in [facility]. FINDINGS: Fine reticular markings in the lateral [...] Organization Address City/State/[place] [address] CERNER MILLENNIUM (ABNORMAL) Differential, [...] Caal MD HEMATOLOGY ORDERABLES Performing Organization Address City/[facility]/ZIP Code Phon e Number [place] [phone] CERNER MILLENNIUM (ABNORMAL) Hemogram [...] Address City/State/ZIP Code [place] [address] CERNER MILLENNIUM (ABNORMAL) Basic [...] intervals supplied above were not validated at [facility]. Results from pediatri c patients should be [...] the following links into your internet browser. http://Defense.Net/DHnkdep http://Defense.Net/DHMCnkf Specimen Anatomical Collection Method Collection Time Receive d Time (Source) Location / / Volume Laterality Blood specimen 08/01/2015 4:39 AM 016 4:53 (specimen) EST AM EST Resulting Agency Comment Spec In Lab Elicia Caal MD CHEMISTRY ORDERABLES Performing Organization Address City/[facility]/ZIP Code Phon e Number [address] CERNER MILLENNIUM (ABNORMAL) POCT [...] CARE TEST ORDERABLE S Performing Organization Address City/[facility]/ZIP Code Phon e Number [address] CERNER MILLENNIUM (ABNORMAL) POCT [...] CARE TEST ORDERABLE S Performing Organization Address City/[facility]/ZIP Code Phon e Number [address] CERNER MILLENNIUM (ABNORMAL) POCT [...] CARE TEST ORDERABLE S Performing Organization Address City/[facility]/ZIP Code Phon e Number [address] CERNER MILLENNIUM (ABNORMAL) POCT [...] CARE TEST ORDERABLE S Performing Organization Address City/[facility]/ZIP Code Phon e Number [address] CERNER MILLENNIUM C. Difficile Screen (07/31/2015 12:46 PM EST) Analysis Performed At [facility] Signature C Diff Screen Negative Negative CERNER MILLENNIUM Specimen Anatomical Collection Method Collection Time Receive d Time (Source) Location / / Volume Laterality Stool specimen 07/31/2015 12:46 6 1:15 (specimen) PM EST PM EST Resulting Agency Comment Spec In Lab Elicia Caal MD MICROBIOLOGY - GENERAL ORDER STAN Performing Organization Address City/[facility]/ZIP Code Phon e Number [address] CERNER MILLENNIUM (ABNORMAL) POCT [...] CARE TEST ORDERABLE S Performing Organization Address City/[facility]/ZIP Code Phon e Number [address] CERNER MILLENNIUM Urine culture (07/31/2015 9:50 AM EST) [facility] Method Time Signature Urine Culture No growth CERNER (Less than MILLENNIUM 1,000 cfu/ml). Specimen (Source) Anatomical Collection Method Collection Time Re ceived Time Location / / Volume Laterality Urine specimen 07/31/2015 9:50 07/31/2015 obtained via AM EST 11:50 AM EST indwelling urinary catheter (specimen) Resulting Agency Comment Spec In Lab Elicia Caal MD MICROBIOLOGY - GENERAL ORDER STAN Performing Organization Address City/[facility]/ZIP Code Phon e Number [address] CERNER MILLENNIUM (ABNORMAL) Urinalysis with reflex Culture (07/31/2015 9:50 AM EST) [employer]book[employer] ([place]) Method Time Signature Glucose UA 150 (A) [...] UA Clear Clear CERNER MILLENNIU M Spec [place] UA 1.005 1.002 - 1.030 CERNER MIL [...] Organization Address City/State/Z[place] [address] CERNER MILLENNIUM (ABNORMAL) Differential, Automated (07/31/2015 7:29 AM EST) [facility] Method Time Signature Neutrophils % 89.5 % [...] Caal MD HEMATOLOGY ORDERABLES Performing Organization Address City/[facility]/[place] [address] CERNER MILLENNIUM (ABNORMAL) Hemogram [...] Caal MD HEMATOLOGY ORDERABLES Performing Organization Address City/[facility]/[place] [address] CERNER MILLENNIUM (ABNORMAL) Basic [...] intervals supplied above were not validated at [facility]. Results from pediatri c patients should be [...] the following links into your internet browser. [email or web address] [email or web address] Specimen Anatomical Collection Method Collection Time Receive d Time (Source) Location / / Volume Laterality Blood specimen 07/31/2015 7:29 AM 016 7:36 (specimen) EST AM EST Resulting Agency Comment Spec In Lab Elicia Caal MD CHEMISTRY ORDERABLES Performing Organization Address City/State/[place] [address] CERNER MILLENNIUM (ABNORMAL) POCT [...] CARE TEST ORDERABLE S Performing Organization Address City/[facility]/ZIP Code Phon e Number [address] CERNER MILLENNIUM (ABNORMAL) POCT Glucose (07/31/2015 1:23 AM EST) athologist Signature POC Glucose 225 (H) 65 [...] CARE TEST ORDERABLE S Performing Organization Address City/[facility]/ZIP Code Phon e Number [address] CERNER MILLENNIUM POCT Glucose (07/30/2015 9:28 PM EST) athologist Signature POC Glucose 196 65 - [...] Organization Address City/State/[place] [address] CERNER MILLENNIUM (ABNORMAL) POCT Glucose (07/30/2015 5:30 PM EST) athologist Signature POC Glucose 238 (H) 65 - 199 CERNER mg/dL [facility] Comment: Supplemental ranges: <140 mg/dL before meals <180 mg/dL all other times of the day Specimen Anatomical Collection Method Collection Time Receive d Time (Source) Location / / Volume Laterality Blood specimen 07/30/2015 5:30 PM 016 5:30 (specimen) EST PM EST Elicia Caal MD POINT OF CARE TEST ORDERABLE S Performing Organization Address City/State/ZIP Code Phon e Number [address] [facility] MILL[facility] (ABNORMAL) POCT Glucose (07/30/2015 1:22 PM EST) athologist Signature POC Glucose 204 (H) 65 - 199 CERNER mg/dL [facility] Comment: Supplemental ranges: <140 mg/dL before meals <180 mg/dL all other times of the day Specimen Anatomical Collection Method Collection Time Receive d Time (Source) Location / / Volume Laterality Blood specimen 07/30/2015 1:22 PM 016 1:22 (specimen) EST PM EST Elicia Caal MD POINT OF CARE TEST ORDERABLE S Performing Organization Address City/State/ZIP Code Phon e Number [address] [facility]UM POCT Glucose (07/30/2015 11:43 AM EST) athologist Signature POC Glucose 198 65 - 199 CERNER mg/dL [facility] Comment: Supplemental ranges: <140 mg/dL before meals <180 mg/dL all other times of the day Specimen Anatomical Collection Method Collection Time Receive d Time (Source) Location / / Volume Laterality Blood specimen 07/30/2015 11:43 6 (specimen) AM EST 11:43 AM EST Elicia Caal MD POINT OF CARE TEST ORDERABLE S Performing Organization Address City/State/ZIP Code Phon e Number [address] CERNER MILLENNIUM (ABNORMAL) Differential, Automated (07/30/2015 8:11 AM EST) Patholo gist Method Time Signature Neutrophils % 82.3 [...] Organization Address City/State/ZIP Code Phon e Number [address] CERNER MILLENNIUM (ABNORMAL) Hemogram (07/30/2015 [...] Organization Address City/State/[place] [address] CERNER MILLENNIUM (ABNORMAL) Basic [...] intervals supplied above were not validated at [facility]. Results from pediatri c patients should be [...] the following links into your internet browser. [email or web address] [email or web address] Specimen Anatomical Collection Method Collection Time Receive d Time (Source) Location / / Volume Laterality Blood specimen 07/30/2015 8:11 AM 016 8:16 (specimen) EST AM EST Resulting Agency Comment Spec In Lab Elicia Caal MD CHEMISTRY ORDERABLES Performing Organization Address City/[facility]/ZIP Code Phon e Number [place] [phone] CERNER MILLENNIUM (ABNORMAL) POCT Glucose (07/30/2015 7:55 AM EST) P athologist Signature POC Glucose 215 (H) 65 [...] Organization Address City/State/ZIP Code Phon e Number [address] CERNER MILLENNIUM POCT Glucose (07/29/2015 4:08 PM EST) P athologist Signature POC Glucose 176 65 - 199 CERNER mg/dL [facility] Comment: Supplemental ranges: <140 mg/dL before meals <180 mg/dL all other times of the day Specimen Anatomical Collection Method Collection Time Receive d Time (Source) Location / / Volume Laterality Blood specimen 07/29/2015 4:08 PM 016 4:08 (specimen) EST PM EST Elicia Caal MD POINT OF CARE TEST ORDERABLE S Performing Organization Address City/State/ZIP Code Phon e Number [address] CERNER [facility] POCT Glucose (07/29/2015 1:27 PM EST) athologist Signature POC Glucose 163 65 - 199 CERNER mg/dL [facility] Comment: Supplemental ranges: <140 mg/dL before meals <180 mg/dL all other times of the day Specimen Anatomical Collection Method Collection Time Receive d Time (Source) Location / / Volume Laterality Blood specimen 07/29/2015 1:27 PM 016 1:27 (specimen) EST PM EST Elicia Caal MD POINT OF CARE TEST ORDERABLE S Performing Organization Address City/State/ZIP Code Phon e Number [address] [facility] Surgical Pathology Report (07/29/2015 12:34 PM EST) Component Value Ref Test Analysis Performed At [facility] Range Method Time Signature Surgical [id number] ? Location: [facility]; [facility]; [facility] Pathology [facility] Report The signing pathologist has (i) [...] MD PATHOLOGY/CYTOLOGY ORDERABLE S Performing Organization Address City/[facility]/[place] [address] CERNER MILLENNIUM Specimen to Pathology (surgical or derm) (07/29/2015 12:34 PM EST) Specimen Anatomical Collection Method Collection Time Receive d Time (Source) Location / / Volume Laterality AP Specimen 07/29/2015 12:34 07/29/2015 PM EST 12:34 PM EST Narrative CERNER MILLENNIUM - 07/29/2015 12:34 PM EST Specimen requisition ordered. ??Separate Pathology report to follow Elicia Caal MD PATHOLOGY/CYTOLOGY ORDERABLE S Performing Organization Address City/[facility]/[place] [address] CERNER MILLENNIUM POCT Glucose (07/29/2015 11:40 AM EST) P athologist Signature POC Glucose 128 65 - 199 CERNER mg/dL [facility] Comment: Supplemental ranges: <140 mg/dL before meals <180 mg/dL all other times of the day Specimen Anatomical Collection Method Collection Time Receive d Time (Source) Location / / Volume Laterality Blood specimen 07/29/2015 11:40 6 (specimen) AM EST 11:40 AM EST Elicia Caal MD POINT OF CARE TEST ORDERABLE S Performing Organization Address City/[facility]/ZIP Code Phon e Number [address] CERNER MILLENNIUM (ABNORMAL) POCT Glucose (07/29/2015 7:45 AM [...] Organization Address City/State/ZIP Code Phon e Number [place] [phone] DANIEL MILLENNIUM Duplex Study Renal Arteries, Bilat (07/29/2015 6:46 AM EST) Component Value Ref Test Analysis Performed At [facility] gist Range Method Time Signature VB Text Department: Vascular Surgery Lab [facility] Report Patient: [id number] (CHAN HURST) CPT: 55479 ICD10: I70.1 Referring Physician: ELICIA CAAL ?? Phone: Indications: 64 year old female with acute kidney injury, ? 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 PSV (cm/s): 100 ? EDV (cm/s): 12 ? RI: 0.89 Renal Artery Proximal, Right ? PSV (cm/s): 123 ? EDV (cm/s): 25 ? RAR-KS: 1.2 ? RI: 0.80 Renal Artery Mid, Right ? PSV (cm/s): 155 ? EDV (cm/s): 27 ? RAR-KS: 1.6 ? RI: 0.82 Renal Artery Distal, Right ? PSV (cm/s): 116 ? EDV (cm/s): 19 ? RAR-KS: 1.2 ? RI: 0.84 Mid Pole Renal [...] (cm/s): 239 ? EDV (cm/s): 32 ? RAR-KS: 2.4 ? RI: 0.87 Renal Artery Mid, Left ? PSV (cm/s): 147 ? EDV (cm/s): 24 ? RAR-KS: 1.5 ? RI: 0.84 Renal Artery Distal, Left ? PSV (cm/s): 90 ? EDV (cm/s): 18 ? RAR-KS: 0.9 ? RI: 0.80 Mid Pole Renal [...] Organization Address City/State/ZIP Code Phon e Number [place] [phone] CERNER MILLENNIUM (ABNORMAL) Differential, [...] Caal MD HEMATOLOGY ORDERABLES Performing Organization Address City/[facility] [place] [address] CERNER MILLENNIUM (ABNORMAL) Hemogram [...] Caal MD HEMATOLOGY ORDERABLES Performing Organization Address City/[facility] [place] [address] CERNER MILLENNIUM (ABNORMAL) Basic [...] intervals supplied above were not validated at [facility]. Results from pediatri c patients should be [...] the following links into your internet browser. [email or web address] Specimen Anatomical Collection Method Collection Time Receive d Time (Source) Location / / Volume Laterality Blood specimen 07/29/2015 2:13 AM 016 2:25 (specimen) EST AM EST Resulting Agency Comment Spec In Lab Elicia Caal MD CHEMISTRY ORDERABLES Performing Organization Address City/[facility]/ZIP Code Phon e Number [address] CERNER MILLENNIUM (ABNORMAL) POCT [...] CARE TEST ORDERABLE S Performing Organization Address City/[facility]/ZIP Code Phon e Number [address] CERNER MILLENNIUM (ABNORMAL) POCT Glucose (07/28/2015 4:27 PM EST) P athologist Signature POC Glucose [...] CARE TEST ORDERABLE S Performing Organization Address City/[facility]/[place] [address] CERNER MILLENNIUM (ABNORMAL) POCT Glucose (07/28/2015 11:26 AM EST) P athologist Signature POC Glucose 221 (H) 65 - 199 CERNER mg/dL MILLENNIUM Comment: Supplemental ranges: <140 mg/dL before meals <180 mg/dL all other times of the day Specimen Anatomical Collection Method Collection Time Receive d Time (Source) Location / / Volume Laterality Blood specimen 07/28/2015 11:26 01/21/201 6 (specimen) AM EST 11:26 AM EST Elicia Caal MD POINT OF CARE TEST ORDERABLE S Performing Organization Address City/State/ZIP Code Phon e Number [address] CERNER MILLENNIUM POCT Glucose (07/28/2015 7:46 AM EST) athologist Signature POC Glucose 167 65 - 199 CERNER mg/dL [facility] Comment: Supplemental ranges: <140 mg/dL before meals <180 mg/dL all other times of the day Specimen Anatomical Collection Method Collection Time Receive d Time (Source) Location / / Volume Laterality Blood specimen 07/28/2015 7:46 AM 016 7:46 (specimen) EST AM EST Elicia Caal MD POINT OF CARE TEST ORDERABLE S Performing Organization Address City/[facility]/ZIP Code Phon e Number [address] CERNER MILLENNIUM TSH (07/28/2015 7:37 AM EST) athologist Signature TSH 0.98 0.27 - 4.20 CERNER mcIU/mL [facility] Specimen Anatomical Collection Method Collection Time Receive d Time (Source) Location / / Volume Laterality Blood specimen 07/28/2015 7:37 AM 016 7:44 (specimen) EST AM EST Resulting Agency Comment Spec In Lab Elicia Caal MD CHEMISTRY ORDERABLES Performing Organization Address City/State/ZIP Code Phon e Number [address] CERNER MILLENNIUM (ABNORMAL) Prealbumin (07/28/2015 7:37 AM EST) athologist Signature Prealbumin 10 (L) 20 - 40 CERNER mg/dL [facility] Comment: Prealbumin levels are generally lower in the pediatric population; adult concentrations are usually attained near puberty. Specimen Anatomical Collection Method Collection Time Receive d Time (Source) Location / / Volume Laterality Blood specimen 07/28/2015 7:37 AM 016 7:44 (specimen) EST AM EST Resulting Agency Comment Spec In Lab Elicia Caal MD CHEMISTRY ORDERABLES Performing Organization Address City/[facility]/ZIP Code Phon e Number [address] CERNER MILLENNIUM (ABNORMAL) Hepatic Function Panel (07/28/2015 7:37 AM [...] Caal MD CHEMISTRY ORDERABLES Performing Organization Address City/[facility]/ZIP Code Phon e Number [address] CERNER MILLENNIUM Electrolytes, urine, [...] Caal MD URINE ORDERABLES Performing Organization Address City/[facility]/[place] [address] CERNER MILLENNIUM Creatinine, urine, random [...] Organization Address City/State/[place] [address] CERNER MILLENNIUM (ABNORMAL) Differential, Automated (07/28/2015 4:30 AM EST) [facility] Method Time Signature Neutrophils % 77.4 [...] Caal MD HEMATOLOGY ORDERABLES Performing Organization Address City/[facility]/ZIP [facility] Phon e Number [address] CERNER MILLENNIUM (ABNORMAL) Hemogram (07/28/2015 4:30 AM EST) P athologist Signature WBC 11.1 (H) 4.0 - [...] Caal MD HEMATOLOGY ORDERABLES Performing Organization Address City/[facility]/ZIP Code Phon e Number [address] CERNER MILLENNIUM (ABNORMAL) Basic Metabolic Panel (non-fasting) (07/28/2015 4:30 AM EST) P athologist Signature Glucose Lvl 193 65 - 199 CERNER mg/dL MILLENNIUM Comment: Diabetes: >=200 mg/dL plus symp toms BUN 20 (H) 8 - 18 mg/dL CERNER MILLENNIUM Creatinine 1.85 (H) 0.70 - 1.20 mg/dL CERNER MILL ENNIUM Comment: Please note that the pediatric reference intervals supplied above were not validated at [facility]. Results from pediatri c patients should be [...] the following links into your internet browser. [email or web address] [email or web address] Specimen Anatomical Collection Method Collection Time Receive d Time (Source) Location / / Volume Laterality Blood specimen 07/28/2015 4:30 AM 016 4:40 (specimen) EST AM EST Resulting Agency Comment Spec In Lab Elicia Caal MD CHEMISTRY ORDERABLES Performing Organization Address City/State/ZIP [place] [address] CERNER MILLENNIUM POCT Glucose (07/27/2015 9:18 PM EST) athologist Signature POC Glucose 185 [...] Organization Address City/State/ZIP Code Phon e Number [address] CERNER MILLENNIUM POCT Glucose [...] Organization Address City/State/ZIP Code Phon e Number [address] CERNER MILLENNIUM CK (07/27/2015 [...] Organization Address City/State/ZIP Code Phon e Number [address] CERNER MILLENNIUM POCT Glucose [...] CARE TEST ORDERABLE S Performing Organization Address City/[facility]/[place] [address] CERNER MILLENNIUM POCT Glucose [...] CARE TEST ORDERABLE S Performing Organization Address City/[facility]/ZIP Code Phon e Number [address] CERNER MILLENNIUM (ABNORMAL) POCT Glucose (07/27/2015 8:16 AM EST) P athologist Signature POC Glucose 212 (H) 65 [...] CARE TEST ORDERABLE S Performing Organization Address City/[facility]/ZIP Code Phon e Number [address] CERNER MILLENNIUM (ABNORMAL) Differential, Automated (07/27/2015 5:12 AM EST) [facility] gist Method Time Signature Neutrophils % 86.7 [...] Organization Address City/State/[place] [address] CERNER MILLENNIUM (ABNORMAL) Hemogram [...] Organization Address City/State/[place] [address] CERNER MILLENNIUM (ABNORMAL) Basic Metabolic Panel (non-fasting) (07/27/2015 5:12 AM EST) athologist Signature Glucose Lvl 221 (H) 65 - 199 CERNER mg/dL MILLENNIUM Comment: Diabetes: >=200 mg/dL plus symp toms BUN 20 (H) 8 - 18 mg/dL CERNER MILLENNIUM Creatinine 1.68 (H) 0.70 - 1.20 mg/dL CERNER MILL ENNIUM Comment: Please note that the pediatric reference intervals supplied above were not validated at [facility]. Results from pediatri c patients should be interpreted in conjunction to the patient's age, height and muscle mass. Sodium 142 135 - 145 mmol/L CERNER KINGSLEY NIUM Potassium 4.1 3.5 - 5.0 mmol/L CERNER KINSGLEY NIUM Comment: Please note: ??Patients with WBC [...] Gap 17 (H) 5 - 15 mmol/L DANIEL Ryan Calcium 8.3 (L) 8.5 - 10.5 mg/dL DANIEL MATTHEWSUM Estimated GFR 31 (L) >=60 DANIEL BRIGHTIU M Comment: This estimated GFR (eGFR) value [...] the following links into your internet browser. [email or web address] [email or web address] Specimen Anatomical Collection Method Collection Time Receive d Time (Source) Location / / Volume Laterality Blood specimen 07/27/2015 5:12 AM 016 5:22 (specimen) EST AM EST Resulting Agency Comment Spec In Lab Elicia Caal MD CHEMISTRY ORDERABLES Performing Organization Address City/[facility]/ZIP [place] [address] DANIEL MILLENNIUM Vancomycin, trough (07/26/2015 10:01 PM EST) P athologist Signature Vanc Trough 18.6 mg/L CERNER [...] Caal MD CHEMISTRY ORDERABLES Performing Organization Address City/[facility]/ZIP Code Phon e Number [place] JEFF[address] [facility] Antibody screen (07/26/2015 4:25 PM EST) [facility] Method Time Signature Ab Screen Negative CERNER Interp MILLENNIUM Expires at 07/29/2015 CERNER [id number] on: MILLENNIUM Specimen Anatomical Collection Method Collection Time Receive d Time (Source) Location / / Volume Laterality Blood specimen 07/26/2015 4:25 PM 016 4:25 (specimen) EST PM EST Resulting Agency Comment Spec In Lab Elicia Caal MD BLOOD BANK ORDERABLES Performing Organization Address City/[facility]/ZIP Code Phon e Number [address] [facility] ABO/Rh Typing (07/26/2015 4:25 PM EST) P athologist Signature ABORh Type A Neg [facility] Specimen Anatomical Collection Method Collection Time Receive d Time (Source) Location / / Volume Laterality Blood specimen 07/26/2015 4:25 PM 016 4:25 (specimen) EST PM EST Resulting Agency Comment Spec In Lab Elicia Caal MD BLOOD BANK ORDERABLES Performing Organization Address City/[facility]/ZIP Code Phon e Number [address] [facility] ([facility]) Basic Metabolic Panel (non-fasting) (07/26/2015 4:15 PM EST) athologist [facility] Glucose Lvl 176 65 - 199 CERNER mg/dL MILLENNIUM Comment: Diabetes: >=200 mg/dL plus symp toms BUN 17 8 - 18 mg/dL CERNER MILLENNIUM Creatinine 1.67 (H) 0.70 - 1.20 mg/dL CERNER MILL ENNIUM Comment: Please note that the pediatric reference intervals supplied above were not validated at [facility]. Results from pediatri c patients should be [...] the following links into your internet browser. [email or web address] [email or web address] Specimen Anatomical Collection Method Collection Time Receive d Time (Source) Location / / Volume Laterality Blood specimen 07/26/2015 4:15 PM 016 4:27 (specimen) EST PM EST Resulting Agency Comment Spec In Lab Elicia Caal MD CHEMISTRY ORDERABLES Performing Organization Address City/[facility] [place] [address] CERNER MILLENNIUM POCT Glucose [...] Organization Address City/State/[place] [address] CERNER MILLENNIUM POCT Glucose [...] Organization Address City/State/[place] [address] CERNER MILLENNIUM POCT Glucose [...] Organization Address City/State/[place] [address] CERNER MILLENNIUM (ABNORMAL) Differential, Automated (07/26/2015 1:40 AM EST) [facility] gist Method Time Signature Neutrophils % 75.6 [...] Organization Address City/State/ZIP Code Phon e Number [place] [phone] CERNER MILLENNIUM (ABNORMAL) Hemogram [...] Organization Address City/State/Z[place] [address] CERNER MILLENNIUM (ABNORMAL) Basic Metabolic Panel (non-fasting) (07/26/2015 1:40 AM EST) athologist Signature Glucose Lvl 193 65 - 199 CERNER mg/dL MILLENNIUM Comment: Diabetes: >=200 mg/dL plus symp toms BUN 17 8 - 18 mg/dL CERNER MILLENNIUM Creatinine 1.45 (H) 0.70 - 1.20 mg/dL CERNER MILL ENNIUM Comment: Please note that the pediatric reference intervals supplied above were not validated at [facility]. Results from pediatri c patients should be [...] the following links into your internet browser. [email or web address] [email or web address] Specimen Anatomical Collection Method Collection Time Receive d Time (Source) Location / / Volume Laterality Blood specimen 07/26/2015 1:40 AM 016 1:44 (specimen) EST AM EST Resulting Agency Comment Spec In Lab Elicia Caal MD CHEMISTRY ORDERABLES Performing Organization Address [facility] Phon e Number [address] CERNER MILLENNIUM Vancomycin, trough [...] MD CHEMISTRY ORDERABLES Performing Organization Address [facility] Phon e Number [address] CERNER MILLENNIUM POCT Glucose [...] CARE TEST ORDERABLE S Performing Organization Address City/[facility]/ZIP Code Phon e Number [address] CERNER MILLENNIUM POCT Glucose (07/25/2015 5:34 PM EST) P athologist Signature POC Glucose [...] CARE TEST ORDERABLE S Performing Organization Address City/[facility]/ZIP Code Phon e Number [address] CERNER MILLENNIUM POCT Glucose (07/25/2015 11:48 AM EST) P athologist Signature POC Glucose 172 65 - 199 CERNER mg/dL ENNIUM Comment: Supplemental ranges: <140 mg/dL before meals <180 mg/dL all other times of the day Specimen Anatomical Collection Method Collection Time Receive d Time (Source) Location / / Volume Laterality Blood specimen 07/25/2015 11:48 6 (specimen) AM EST 11:48 AM EST Elicia Caal MD POINT OF CARE TEST ORDERABLE S Performing Organization Address City/[facility]/ZIP Code Phon e Number [address] CERNER MILLENNIUM (ABNORMAL) Vancomycin, trough [...] This re-calibration was mandated by the assay settlement processor and was needed to bring the Vancomycin concentrations into better alignment with other Vancomy alan assay. Specimen Anatomical Collection Method Collection Time Receive d Time (Source) Location / / Volume Laterality Blood specimen 07/25/2015 10:28 6 (specimen) AM EST 10:33 AM EST Resulting Agency Comment Spec In Lab Elicia Caal MD CHEMISTRY ORDERABLES Performing Organization Address City/[facility] [facility]/ZIP [facility] Phon e Number [address] CERNER MILLENNIUM POCT Glucose (07/25/2015 8:00 AM EST) athologist Signature POC Glucose 150 65 - 199 CERNER mg/dL MILLENNIUM Comment: Supplemental ranges: <140 mg/dL before meals <180 mg/dL all other times of the day Specimen Anatomical Collection Method Collection Time Receive d Time (Source) Location / / Volume Laterality Blood specimen 07/25/2015 8:00 AM 016 8:00 (specimen) EST AM EST Eilcia Caal MD POINT OF CARE TEST ORDERABLE S Performing Organization Address City/[facility]/ZIP [facility] Phon e Number [address] CERNER MILLENNIUM Nucleated Red Blood Cells (07/25/2015 2:01 AM EST) athologist Signature nRBC % Auto 0.0 % [...] Organization Address City/State/[place] [address] CERNER MILLENNIUM (ABNORMAL) Differential, Automated (07/25/2015 2:01 AM EST) [facility] Method Time Signature Neutrophils % 85.8 % [...] Caal MD HEMATOLOGY ORDERABLES Performing Organization Address City/[facility]/ZIP [facility] Phon e Number [address] CERNER MILLENNIUM (ABNORMAL) Hemogram (07/25/2015 2:01 AM EST) P athologist Signature WBC 14.1 (H) 4.0 - [...] Caal MD HEMATOLOGY ORDERABLES Performing Organization Address City/[facility]/[place] [address] CERNER MILLENNIUM (ABNORMAL) Basic Metabolic Panel (non-fasting) (07/25/2015 2:01 AM EST) P athologist Signature Glucose Lvl 181 65 - 199 CERNER mg/dL MILLENNIUM Comment: Diabetes: >=200 mg/dL plus symp toms BUN 14 8 - 18 mg/dL CERNER MILLENNIUM Comment: result rechecked-jayden Creatinine 0.91 0.70 - 1.20 mg/dL CERNER MILL ENNIUM Comment: Please note that the pediatric reference intervals supplied above were not validated at [facility]. Results from pediatri c patients should be [...] the following links into your internet browser. [email or web address].Net/DHnkdep [email or web address].Net/DHnkf Specimen Anatomical Collection Method Collection Time Receive d Time (Source) Location / / Volume Laterality Blood specimen 07/25/2015 2:01 AM 016 2:29 (specimen) EST AM EST Resulting Agency Comment Spec In Lab Elicia Caal MD CHEMISTRY ORDERABLES Performing Organization Address City/State/ZIP Code Phon e Number [place] [phone] CERNER MILLENNIUM POCT Glucose [...] Organization Address City/State/ZIP [place] [address] CERNER MILLENNIUM (ABNORMAL) BLOOD [...] 3.4 (L) 3.5 - 5.0 mmol/L CERNER DE LLENNIUM Comment: Please note: Patients with WBC >100,000 may have falsely elevated Potassium levels. Contact the Clinical Chemistry L aboratory if there are any questions. ICa Whole Blood 1.31 1.15 - 1.33 mmol/L CERNE R MILLENNIUM Comment: Note: ??Total bilirubin higher than 20 m g/dL may lead to falsely low ionized calcium. CL Whole Blood 101 98 - 107 mmol/L CERNER DE LLENNIUM Gluc Whole Bld 148 65 - 199 mg/dL CERNER MIL LENNIUM Comment: Diabetes: >=200 mg/dL plus symp toms. Specimen Anatomical Collection Method Collection Time Receive d Time (Source) Location / / Volume Laterality Blood specimen 07/24/2015 2:32 PM 016 2:32 (specimen) EST PM EST Elicia Caal MD CHEMISTRY ORDERABLES Performing Organization Address City/State/ZIP [place] [address] CERNER MILLENNIUM (ABNORMAL) BLOOD [...] 3.4 (L) 3.5 - 5.0 mmol/L CERNER DE LLENNIUM Comment: Please note: Patients with WBC >100,000 may have falsely elevated Potassium levels. Contact the Clinical Chemistry L aboratory if there are any questions. ICa Whole Blood 1.09 (L) 1.15 - 1.33 mmol/L CERNE R MILLENNIUM Comment: Note: ??Total bilirubin higher than 20 m g/dL may lead to falsely low ionized calcium. CL Whole Blood 101 98 - 107 mmol/L CERNER DE LLENNIUM Gluc Whole Bld 148 65 - 199 mg/dL CERNER MIL LENNIUM Comment: Diabetes: >=200 mg/dL plus symp toms. Specimen Anatomical Collection Method Collection Time Receive d Time (Source) Location / / Volume Laterality Blood specimen 07/24/2015 1:41 PM 016 1:41 (specimen) EST PM EST Elicia Caal MD CHEMISTRY ORDERABLES Performing Organization Address City/State/ZIP [place] [address] CERNER MILLENNIUM (ABNORMAL) BLOOD [...] 3.4 (L) 3.5 - 5.0 mmol/L CERNER DE LLENNIUM Comment: Please note: Patients with WBC >100,000 may have falsely elevated Potassium levels. Contact the Clinical Chemistry L aboratory if there are any questions. ICa Whole Blood 1.10 (L) 1.15 - 1.33 mmol/L CERNE R MILLENNIUM Comment: Note: ??Total bilirubin higher than 20 m g/dL may lead to falsely low ionized calcium. CL Whole Blood 102 98 - 107 mmol/L CERNER DE LLENNIUM Gluc Whole Bld 144 65 - 199 mg/dL [facility] Comment: Diabetes: >=200 mg/dL plus symp toms. Specimen Anatomical Collection Method Collection Time Receive d Time (Source) Location / / Volume Laterality Blood specimen 07/24/2015 12:55 6 (specimen) PM EST 12:55 PM EST Elicia Caal MD CHEMISTRY ORDERABLES Performing Organization Address City/[facility] [place] [address] CERNER MILLENNIUM Anaerobic Culture (07/24/2015 12:00 PM EST) Patholo gist Method Time Signature Anaerobic No anaerobic CERNER Culture organisms MILLENNIUM isolated Specimen Anatomical Collection Method Collection Time Receive d Time (Source) Location / / Volume Laterality Specimen of 07/24/2015 12:00 07/24/2015 unknown material PM EST 12:59 PM ES T (specimen) Comment: LEFT GROIN ASPIRATION. Resulting Agency Comment Spec In Lab Elicia Caal MD MICROBIOLOGY - GENERAL ORDER STAN Performing Organization Address City/[facility] [place] [address] CERNER MILLENNIUM (ABNORMAL) Body fluid culture (07/24/2015 12:00 PM EST) Component Value Ref Test Analysis Performed At Patholo gist Range Method Time Signature Body Fluid Rare [...] Comment: Gentamicin is not a ppropriate for [facility]-therapy. Staphylococcus aureus, mrsa Levofloxacin MICROSCAN METHOD Sen [...] Organization Address City/State/[place] [address] [facility] Surgical Pathology Report (07/24/2015 11:26 AM EST) Component Value Ref Test Analysis Performed At [facility] Range Method Time Signature Surgical [id number] ? Location: [facility]; [facility]; A [facility] Pathology [facility] Report The signing pathologist has (i) [...] MD PATHOLOGY/CYTOLOGY ORDERABLE S Performing Organization Address [facility]/[place] [address] CERNER MILLENNIUM Specimen to Pathology [...] MD PATHOLOGY/CYTOLOGY ORDERABLE S Performing Organization Address [facility]/[place] [address] CERNER MILLENNIUM POCT Glucose (07/24/2015 7:29 AM EST) P athologist Signature POC Glucose 161 65 - 199 CERNER mg/dL MILLENNIUM Comment: Supplemental ranges: <140 mg/dL before meals <180 mg/dL all other times of the day Specimen Anatomical Collection Method Collection Time Receive d Time (Source) Location / / Volume Laterality Blood specimen 07/24/2015 7:29 AM 016 7:29 (specimen) EST AM EST Elicia Caal MD POINT OF CARE TEST ORDERABLE S Performing Organization Address City/[facility]/ZIP [facility] Phon e Number [address] CERNER MILLENNIUM Nucleated Red [...] Caal MD HEMATOLOGY ORDERABLES Performing Organization Address City/[facility] Phon e Number [address] CERNER MILLENNIUM (ABNORMAL) Differential, Automated (07/24/2015 5:03 AM EST) [facility] gist Method Time Signature Neutrophils % 76.4 [...] Organization Address City/State/[place] [address] CERNER MILLENNIUM (ABNORMAL) Hemogram [...] Organization Address City/State/ZIP Code Phon e Number [place] [phone] CERNER MILLENNIUM (ABNORMAL) Basic [...] intervals supplied above were not validated at [facility]. Results from pediatri c patients should be [...] the following links into your internet browser. [email or web address].Net/DHnkdep [email or web address].Net/DHMCnkf Specimen Anatomical Collection Method Collection Time Receive d Time (Source) Location / / Volume Laterality Blood specimen 07/24/2015 5:03 AM 016 6:40 (specimen) EST AM EST Resulting Agency Comment Spec In Lab Elicia Caal MD CHEMISTRY ORDERABLES Performing Organization Address City/[facility]/ZIP Code Phon e Number [address] [facility] MILLENNIUM POCT Glucose (07/23/2015 9:06 PM EST) athologist Signature POC Glucose 105 65 - 199 [facility] mg/dL [facility] Comment: Supplemental ranges: <140 mg/dL before meals <180 mg/dL all other times of the day Specimen Anatomical Collection Method Collection Time Receive d Time (Source) Location / / Volume Laterality Blood specimen 07/23/2015 9:06 PM 016 9:06 (specimen) EST PM EST Elicia Caal MD POINT OF CARE TEST ORDERABLE S Performing Organization Address City/[facility]/ZIP Code Phon e Number [address] [facility] MILLENNIUM Antibody screen (07/23/2015 8:50 PM EST) [facility] gist Method Time Signature Ab Screen Negative [facility] Expires at 07/26/2015 [facility] on: MILLENNIUM Specimen Anatomical Collection Method Collection Time Receive d Time (Source) Location / / Volume Laterality Blood specimen 07/23/2015 8:50 PM 016 8:56 (specimen) EST PM EST Resulting Agency Comment Spec In Lab Elicia Caal MD BLOOD BANK ORDERABLES Performing Organization Address City/[facility]/ZIP Code Phon e Number [address] [facility] MILLENNIUM ABO/Rh Typing (07/23/2015 8:50 PM EST) P athologist Signature ABORh Type A Neg CERNER MILLENNIUM Specimen Anatomical Collection Method Collection Time Receive d Time (Source) Location / / Volume Laterality Blood specimen 07/23/2015 8:50 PM 016 8:56 (specimen) EST PM EST Resulting Agency Comment Spec In Lab Elicia Caal MD BLOOD BANK ORDERABLES Performing Organization Address City/State/ZIP Code Phon e Number [place] [phone] CERNER MILLENNIUM (ABNORMAL) Differential, Automated (07/23/2015 8:50 PM EST) Patholo gist Method Time Signature Neutrophils % 74.3 [...] Volume Laterality Blood specimen 07/23/2015 8:50 PM 01/16/2 016 8:56 (specimen) EST PM EST Resulting Agency Comment Spec In Lab Elicia Caal MD HEMATOLOGY ORDERABLES Performing Organization Address City/[facility]/ZIP Code Phon e Number [place] [phone] CERNER MILLENNIUM (ABNORMAL) Hemogram [...] Caal MD HEMATOLOGY ORDERABLES Performing Organization Address City/[facility]/ZIP [place] [address] CERNER MILLENNIUM Vancomycin, trough [...] Organization Address City/State/Z[place] [address] CERNER MILLENNIUM (ABNORMAL) Basic [...] intervals supplied above were not validated at [facility]. Results from pediatri c patients should be [...] the following links into your internet browser. [email or web address]://Defense.Net/DHnkdep [email or web address].Net/DHMCnkf Specimen Anatomical Collection Method Collection Time Receive d Time (Source) Location / / Volume Laterality Blood specimen 07/23/2015 8:50 PM 016 8:57 (specimen) EST PM EST Resulting Agency Comment Spec In Lab Elicia Caal MD CHEMISTRY ORDERABLES Performing Organization Address City/State/[place] [address] [facility] documented in this encounter Visit Diagnoses Not on filedocumented in this encounter Admitting Diagnoses Diagnosis Critical lower limb ischemia Unspecified circulatory system disorder documented in this encounter Active and Recently [...] Hermosillo, JOSEPH)2014 (Given - Provider: Vijaya Sweeney, RN) 0921 (Given - Provider: Karen Alfonso, RN) 600 mg, Oral, 2 TIMES DAILY, First dose on 07/30/15 at 1700, Until Discontinued, Routine heparin (porcine) subcutaneous injection 5,000 Units ( CANCELED) 0837 (Given - Provider: Ashleigh Childers RN)2057 (Given - Provider: Calvin Oropeza RN) 0839 (Given - Provider: Bree Hermosillo, JOSEPH)2019 (Given - Provider: Vijaya Sweeney, JOSEPH) 0921 (Given - Provider: Karen nichole RN) 5,000 Units, Subcutaneous, EVERY 12 HOUR S SCHEDULED (2 times per day), First dose on 07/30/15 at 1345, Until Discontinued, Routine insulin aspart (NovoLOG) VIAL injection 1-4 Units 0818 (Given - Provider: Ashleigh Childers RN)1253 (Given - Provider: Ashleigh Childers, JOSEPH)1650 (Given - Provider: Ashleigh Childers, JOSEPH)2000 (Not Given - Provider: Calvin Oropeza RN - Reason: Order parameters not met - Comment: Gave no 0011 (Given - Provider: Calvin Oropeza RN)0333 (Given - Provider: Calvin Oropeza, JOSEPH)0837 (Given - Provider: Bree Hermosillo RN)1205 (Given - Provider: Bree Hermosillo, JOSEPH)1640 (Given - Provider: Bree Hermosillo RN) 0051 (Given - Provider: Vijaya mckeon RN)0338 (Given - Provider: Vijaya Sweeney, JOSEPH)0810 (Given - Provider: Karen Alfonso, JOSEPH)1124 (Given - Provider: Karen Alfonso RN) 1-4 Units, Subcutaneous, EVERY 4 HOURS, First dose on 08/01/15 at 0615, Until Discontinued, CORRECTION BOLUS Sensitive [...] (CANC ELED) 0837 (Given - Provider: Ashleigh Childers, JOSEPH) 0837 (Given - Provider: Bree Hermosillo, JOSEPH) 0921 (Given - Provider: Karen Alfonso, JOSEPH) 25 [...] stools) 0838 (Given - Provider: Bree Hermosillo RN)2099 (Not Given - Provider: Vijaya Sweeney RN - Reason: Patient/family refused) 09 (Not Given - Provider: Karen Alfonso RN [...] (Given - Provider: Bree Hermosillo, JOSEPH) 0921 (Gi aide - Provider: Karen Alfonso RN) 50 mg, Oral, DAILY, First dose on Sun at 0900, Until Discontinued, Routine simvastatin (ZOCOR) tablet 20 mg (CANCELED) 2056 (Give n - Provider: Calvin Oropeza, JOSEPH) 2014 (Given - Provider: Vijaya Sweeney, JOSEPH) 20 mg, Oral, NIGHTLY, First dose on 07/23/15 at 2200, Until Discontinued, Routine PRN Medication Order 08/01/2015 08/02/2015 08/03/2015 acetaminophen (TYLENOL) tablet 500 mg (CANCELED) 154 (Given - Provider: Ashleigh Childers RN) 500 mg, Oral, EVERY 4 HOURS PRN, Startin g 07/23/15 at 2019, Until Sat08/03/15 at 1634, Pain, Fever, Maximum dose of acetaminophen is 4000 mg from all sources in 24 hours., Routine ondansetron (ZOFRAN) tablet 4 mg (CANCELED) 2237 (Give n - Provider: Calvin Oropeza RN) 528 (Given - Provider: Calvin Oropeza RN)2014 (Given - Provider: Vijaya Sweeney, JOSEPH) 4 mg, Oral, EVERY 8 HOURS PRN, Starting 07/23/15 at 2019, Until Sat08/03/15 at 1634, Nausea, Vomiting, If multiple antiemetics are ordered, use ondansetron first. PO Preferred. If patient unable to take PO, may give IV if ordered. May repeat times one in 45 minutes if ineffective., Routine oxyCODONE (ROXICODONE) immediate release tablet 5 mg 2015 (Given - Provider: Vijaya Sweeney, JOSEPH) 5 mg, Oral, EVERY 4 HOURS PRN, Starting 07/31/15 at 0815, Until Sat08/03/15 at 1634, Pain, mild to moderate pain (1-6), May give an additional 5 mg in 30 minutes once if pain not relieved., Routine documented in this encounter Care Teams Banking Assistant Relationship Specialty Start Date End Date Gordy Moon MD PCP - General Family Medicine 05/19/[address] [place], [place] [address]Y [facility] [address] [place] [address] documented as of this encounter
--- OUTSIDE RECORDS SUMMARY | 2022-01-25 00:59 | XMS_ITS | Encounter Summary ---
:1950 Author Organization [facility] Address [facility] [place] [address] Care Team Providers Name Role Phone Gordy Moon MD Primary Care Provider [phone] Reason for Visit Auth/Cert - Closed Specialty Diagnoses / Procedures Referred By Contact Refer red To Contact Diagnoses SFA to peroneal bypass occluded graft Procedures PRO VEIN IN SITU BYPASS GRAFT, FEM-TIB PRO VEIN BYPASS GRAFT, FEM-TIBIAL @BYPASS GRAFT, FEM.-ANT. TIB, POST. TIB, PERONEAL, DP W\ VEIN CONDUIT ([place] [id number]) Referral ID Status Reason Start Date Expiration Date Visits Requ ested Visits Authorized [id number] Closed 1 1 Encounter Details Date Type Department Care Team Description 07/24/2015 Surgery Main Operating Room Elicia Caal @AMPUTATION, [facility] MD Chapito BELOW-KNEE, OPEN, Hospital [facility] (WRVU 9.79) [facility] [place] [address] [place] [address] [phone] (Wo rk) Social History Tobacco Use Types [...] She then underwent a second LLE bypass OBSTETRIC ASSISTANT to PT with PTFE, on 05-26. This was found to be occluded on 06-01. Since that time the patient has had progressive worsening of her medial/distal surgical incision that has failed to heal. With no additional revasc options she was offered opportunity to enrol in stemcell trial, but declined. 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 On 07-20-15 she present to [facility] with SIRS physiology, felt to be related to her leg wound. She declinedtransfer to [facility] for amputation at that time and was [...] ligated and resected; bovine pericardial patch resected, OBSTETRIC ASSISTANT debrided and repaired with new bovine pericardial [...] IV Dapto for new micro growth records. [facility] ID involved with final recs for: IV Dapto through PICC line placed day of discharge. Nephrology consulted for PANDA with Cr rise to 1.87 at peak s/t supertherapeutic Vanc. Renal duplex obtained, resulted below. Pt's metformin and lisinopril held. Nephrology will see pt outpt. Cr @ discharge: 1.31, baseline 0.35. Initially on FRONT DESK COORDINATOR for pain control through 07/31, transitioned to [...] renal vein. Discharge Conditions/Prognosis: Good Discharge to: [address] [place] [address] Discharge Medications: Your Medications New Medications [...] For any problems or questions please call [phone] SAMIA Lopez, fiberglass roller Nurse Clinician For issues on weeknights after 5pm and weekends please call [phone] and ask for the Vascular Fellow corporate relations director. General Instructions None Future Appointments and Orders Future Appointments Provider Department Dept Phone 08/17/2015 3:00 PM Radha Waller PA Vascular Surgery [phone] 08/17/2015 4:00 PM Maria Hernandez MD; Donya Awad MD Nephrology [phone] Future Orders Complete By Expires OPAT: Order / Recommendation for Post Discharge IV Antibiotic Management [DMW468 CPT(R)] As directed Process Instructions: If no progress note charted, please enter Clinical details in comments. Scheduling Instructions: Comments: Please Fax all results to: OPAT Program Infectious Disease Section [facility], [place] [address] FAX: Line care instructions per [facility] OPAT Program protocol. After hours, please contact the Infectious Disease Physician corporate relations director at . If this order was signed greater than [address] [facility] discharge, please call to confirm the accuracy [...] For any problems or questions please call [phone] SAMIA Lopez, fiberglass roller Nurse Clinician For issues on weeknights after 5pm and weekends please call [phone] and ask for the Vascular Fellow corporate relations director. documented in this encounter Medications at Time [...] 1:59 PM EST Pt being discharged to [facility] by ambulance. PICC line placed today for IV abx treatment. PIVs removed. Wound vac clamped for ride. Reported called to receiving facility. Discharge summary and medicationsheet printed and placed in discharge packet. Complications regarding code status. regional project manager Joanna gaxiola and MD Jason Miramontes informed and questioned. Code order read as DNR, but scanned advanced directive read full code. MD Miramontes and continuous pillowcase cutter Sachin spoke with pt. It was determined [...] back if further assistance is needed. 25' M.MOrlin Felipe MD Pager [phone] ARET [place], October - 08/03/2015 12:18 PM EST Office of Care Management/Machine Stoppage Frequency Checker Patient Name: Chan Hurst : 1950 Patient has been offered a swing bed at [facility]. [facility] arranged for a 1:30 pm Transport. Ambulance will need: Medicare ambulance form completed and signed (MD or CRC) Copy of patient demographics [place] [facility] DNR/DNI order, if active Please have MD call Dr Haley Hopson @ [phone] and page her. RN to RN:Please call Nursing Report to Amalia Pond RN @ [phone]. Info to accompany patient: Copies of Medication Administration Records and IV sheets for past 10 days. Plan: Machine Stoppage Frequency Checker will be available to the patient and CRC for further assistance. Patient will be discharged to: [facility] [address] [id number] Tiffany [place], Machine Stoppage Frequency Checker Maria Hernandez - 08/03/2015 12:03 PM EST [...] 3.6 CL 101 105 102 CO2 25 25 BUN 20* 22* 22* CREATININE 1.31* [...] have contributed Urine out put > 1L dray driver clearance ~ 29 by 24 hr collection [...] Ignacio Hernandez MD Nephrology Fellow Pager # [phone] Associated attestation - Karen Pierre MD - [...] sister is quite insistant to d/c to [facility] but is agreeable to selection of three - will request TCT by Machine Stoppage Frequency Checker to [facility] to ascertain bed option as did not appear of [facility] list of facilities - also will refer to [facility] and [facility] - [facility] -- [facility] -- transportation will still be determined 08/02/2015 -- Jaime Heraclio, live in friend for 20+ years, consulted with CM - expressed concern of the need for POA for - wishes to complete POA / living will at bedside this date -- DEVELOPER SUPPORT ENGINEER consulted and agreeable to meet with patient and Jaime this date -- also verbalized concern with SNF selection as wishes patient to be in swing bed 1st choice - agreeable to make 1st choice awareness to facilities selected to include [place] - CM consulted with Ms. Hurst and Jaime at bedside to confirm with patient who makes her wishes known in selection to confer swing bed rehab to be 1st choice - Machine Stoppage Frequency Checker made aware to communicate to facilities - [...] known to swing bed 1st choice via Machine Stoppage Frequency Checker - [id number] -- received/answered page as Jaime requested to discuss his desire to be 1st contact in decisions moving forward - this is agreeable encouraged to inform nurses at desk this night and this CM will made designated in demographics in am as I have left office for the day - agreeable 08/03/2015 -- 1540 - email sent to [facility] to update the above request -- Vasc Surg consulted medicallycleared for d/c today - [facility] accepted patient / will need to verify Dapto / PICC placement today at [facility] via Machine Stoppage Frequency Checker -- bed accepted by POA and patient - PICC scheduled for prior to 1pm - NPWT being changed currently - discussed with patient and POA of transport via ambulance unsure amountcovered by insurance to expect billing at later time - verbalized understanding and agreeable - waiting for time for ambulance arrival - CM alerted by Machine Stoppage Frequency Checker NO ambulance scheduled until PICC is placed acknowledged time to leave NO later than 1400 - Dr. Pond aware - 1200 CM notified ofambulance tentatively scheduled for 1330 - bedside RN will notify CM with PICC placement confirmed -BCBS has approved 1wk - to start 08/08 / recommendations to continue BCBS to assure continued coverage / should re apply [facility] for financial assistance / consider MA - JAD Jackson/friend updatedof insurance communications - verbalized understanding - [...] controversial advance directives and patient verbalization - DEVELOPER SUPPORT ENGINEER consulted to determine [facility] processes with portable DNR for ambulance transport [...] Ligation and removal of thrombosed, infected left OBSTETRIC ASSISTANT-PT PTFE bypass graft. ?? 5. Placement of [...] 20 minutes for functional ther ex Pager: [phone] DEBI DUBON OT Occupational Therapy Rehabilitation Department Maria Hernandez - 08/02/2015 4:03 PM EST HYPERTENSION/ NEPHROLOGY CONSULT PATIENT: Chan Hrust : 1950 REASON FOR CONSULTATION: worsening of [...] contributed Urine out put > 1L yesterday dray driver clearance measurement in progress, cystatin C in process Will re assess this data tomorrow Please dose all her meds for GFR ~ 15 or less Volume status stable over all Will be followed in renal clinic upon discharge Thanks for letting us participate in the care of this patient. Seen and Discussed w/ Dr. Ignacio Hernandez MD Nephrology Fellow Pager # [phone] Associated attestation - Karen Pierre MD - [...] She then underwent a second LLE bypass OBSTETRIC ASSISTANT to PT with PTFE, on 05-26. This was found to be occluded on 06-01. Since that time the patient has had progressive worsening of her medial/distal surgical incision that has failed to heal. Procedures: 07/24: LLE guillotine amp, removal PTFE graft, wound vac, bovine patch OBSTETRIC ASSISTANT 07/27: Wound vac change, sartorious flap coverate [...] interventions: 30 minutes for functional mobility Pager: [phone] Dariusz Pedraza PT Physical Therapy Rehabilitation Department [...] She then underwent a second LLE bypass OBSTETRIC ASSISTANT to PT with PTFE, on 05-26. This was found to be occluded on 06-01. Since that time the patient has had progressive worsening of her medial/distal surgical incision that has failed to heal. Procedures: 07/24: LLE guillotine amp, removal PTFE graft, wound vac, bovine patch OBSTETRIC ASSISTANT 07/27: Wound vac change, sartorious flap coverate [...] amputation LLE with removal of thrombosed/infected L OBSTETRIC ASSISTANT-PT PTFE bypass graft, and debridement of L OBSTETRIC ASSISTANT artery with repair of bovine pericardial patch POD#6 from sartorious flap coverage of exposed OBSTETRIC ASSISTANT, POD #4 s/p L AKA. Patient continues [...] will need SNF. Mariano Miramontes MD Pager [phone] Amita Carnes LD - 08/02/2015 1:33 PM [...] follow throughout hospital stay DAPHNEY TITUS Pager [phone] Hoa Felipe MD - 08/02/2015 1:23 PM [...] ? 1 Gentamicin is not appropriate for [place]-therapy. ? 2 MRSA, Note Nafcillin Resistance Impression: Reviewed operative reports and literature re duration of antibiotic therapy following bovine patch graft in infected field. While there is no randomized trial data, duration of antibiotic therapy following this procedure is often prolonged. In one trial (Morales WD et al J Vasc Surg 2012; [...] is anticipated. Await updated input from the Thermocouple Tester re options. Discussed with Dr. Miramontes. ID Consult service will continue to follow the patient x ID Consult service will sign off. Please call us back if further assistance is needed. 35'; >50% in care coordination Krishna Felipe MD Pager [phone] Debi Bradshaw, OT - 08/01/2015 4:52 PM [...] Ligation and removal of thrombosed, infected left OBSTETRIC ASSISTANT-PT PTFE bypass graft. ?? 5. Placement of [...] blocked, cues for technique. Pt stood while SOCIAL SERVICES ASSISTANT performed caty care. ?? Mod assist x2 [...] 26 minutes for functional there ex Pager: [phone] DEBI DUBON OT Occupational Therapy Rehabilitation Department [...] Ligation and removal of thrombosed, infected left OBSTETRIC ASSISTANT-PT PTFE bypass graft. ?? 5. Placement of [...] She then underwent a second LLE bypass OBSTETRIC ASSISTANT to PT with PTFE, on 05-26. This was found to be occluded on 06-01. Since that time the patient has had progressive worsening of her medial/distal surgical incision that has failed to heal. With no additional revasc options she was offered opportunityto enrol in stemcell trial, but declined. 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 On 07-20-15 she present to [facility] with SIRS physiology, felt to be related to her leg wound. She declined transfer to [facility] for amputation at that time and was admitted and started on antibiotics. Today, she has resigned to transfer for further care of her leg wound. Social History: Patient lives in [place], [place].?? Lives with boyfriend.?? Boyfriend works so [...] TE-F x 2) Anabel Vela, PT Pager [phone] Inpatient Physical Therapy Mariano Miramontes MD - [...] She then underwent a second LLE bypass OBSTETRIC ASSISTANT to PT with PTFE, on 05-26. This was found to be occluded on 06-01. Since that time the patient has had progressive worsening of her medial/distal surgical incision that has failed to heal. Procedures: 07/24: LLE guillotine amp, removal PTFE graft, wound vac, bovine patch OBSTETRIC ASSISTANT 07/27: Wound vac change, sartorious flap coverate [...] [90 %-98 %] 07/31 0701 - 08/01 07 In: 979.4 [P.O.:717; I.V.:262.4] [...] amputation LLE with removal of thrombosed/infected L OBSTETRIC ASSISTANT-PT PTFE bypass graft, and debridement of L OBSTETRIC ASSISTANT artery with repair of bovine pericardial patch POD#5 from sartorious flap coverage of exposed OBSTETRIC ASSISTANT, POD #3 s/p L AKA. Improved leukocytosis [...] will need SNF. Mariano Miramontes MD Pager [phone] Maria Hernandez - 08/01/2015 11:56 AM EST [...] No asterixis. STUDIES: Labs: CBC: Recent Labs 08/01/1543807/31/15 0729 07/30/15 0811 WBC 16.1* 21.4* 14.7* HGB 7.8* 8.8* 8.7* PLATELET 337 370 405* Chemistry: Recent Labs 08/01/1543807/31/15 0729 07/30/15 0811 NA 138 137 142 [...] contributed Urine out put > 1L yesterday. dray driver stable but would like to do 24 [...] Ignacio Hernandez MD Nephrology Fellow Pager # [phone] Associated attestation - Karen Pierre MD - [...] Ligation and removal of thrombosed, infected left OBSTETRIC ASSISTANT-PT PTFE bypass graft. ?? 5. Placement of [...] She then underwent a second LLE bypass OBSTETRIC ASSISTANT to PT with PTFE, on 05-26. This was found to be occluded on 06-01. Since that time the patient has had progressive worsening of her medial/distal surgical incision that has failed to heal. With no additional revasc options she was offered opportunityto enrol in stemcell trial, but declined. 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 On 07-20-15 she present to [facility] with SIRS physiology, felt to be related to her leg wound. She declined transfer to [facility] for amputation at that time and was [...] VEIN CONDUIT ([place] [address]) performed by Mariano Doyle MD at [facility] MA[facility] OR? Pro bypass graft othr, fem-tibial?? Left?? 05/26/2015? @BYPASS GRAFT, FEM-ANT TIBIAL, -POST TIBIAL, -PERONEAL, -DP W\ SYNTHETIC CONDUIT performed by Mariano Doyle MD at [facility] OR? Pro bypass graft vein patch/cuff, synthetic?? Left?? 05/26/2015? PLACEMENT VEIN PATCH OR CUFF AT DISTAL ANASTOMOSIS OF BYPASS GRAFT, SYNTHETIC CONDUIT , RODRIGUEZ-COLLAR, RACHELLE-PATCH, ADD-ON CODE, LOWER EXTREMITY performed by Mariano Doyle MD at [facility] OR? Pro thromboendartectmy iliofemoral?? Left?? 05/26/2015? @ENDARTERECTOMY, ILIOFEMORAL W OR W/O PATCH GRAFT [facility] Pro reoperation, bypass graft?? Left?? 05/26/2015? @RE-OP FOR RE-DO LOWER EXTREMITY BYPASS GRAFT, >1 MONTH P\ ORIGINAL SURGERY, ADD-ON CODE performed by Mariano Doyle MD at [facility] OR? Pro amputation low leg, circular?? Left?? 07/24/2015? @AMPUTATION, BELOW-KNEE, OPEN, GUILLOTINE [facility]? Pro exploration, femoral artery?? Left?? 07/24/2015? @EXPLORATION, W/WO LYSIS, FEMORAL ARTERY W\O SURGICAL REPAIR performed by Rufus Caal MD at [facility] OR? Pro negative pressure wound therapy, less than or equal to 50 sqcm?? Left?? 07/24/2015? DRESSING CHANGE (VAC ASSISTED) UP TO 50SQ.CM performed by Elicia Caal MD at [facility] OR? Pro rebl ves direct, low extrem?? Left?? 07/24/2015? REPAIR LOWER EXTREMITY BLOOD VESSEL, DIRECT, NO PATCH OR GRAFT performed by Elicia Caal MD at [facility] OR? Pro excision, infec graft, extremity?? Left?? 07/24/2015? EXCISION OF INFECTED GRAFT FROM LOWER EXTREMITY performed by Elicia Caal MD at [facility] OR? Pro muscle-skin flap, leg?? Left?? 07/27/2015? FLAP, MYOCUTANEOUS OR FASCIOCUTANEOUS, LOWER EXTREMITY performed by Elicia Caal MDat [facility] OR? Pro debridement subcutaneous tissue 20 sqcm/<?? Left?? 07/27/2015? DEBRIDEMENT SKIN AND SUBCU,?? LOWER EXTREMITY performed by Elicia Caal MD at [facility] OR? Left?? 07/27/2015? MODIFIER WOUND VAC performed by Elicia Caal MD at [facility] OR?? Social History: Patient lives in [place], [place].?? Lives with boyfriend.?? Boyfriend works so [...] x 3) Radha Dover PT, MSPT Pager [phone] Inpatient Physical Therapy ColumboJuliano - 07/31/2015 12:44 [...] She then underwent a second LLE bypass OBSTETRIC ASSISTANT to PT with PTFE, on 05-26. This was found to be occluded on 06-01. Since that time the patient has had progressive worsening of her medial/distal surgical incision that has failed to heal. Procedures: 07/24: LLE guillotine amp, removal PTFE graft, wound vac, bovine patch OBSTETRIC ASSISTANT 07/27: Wound vac change, sartorious flap coverate [...] amputation LLE with removal of thrombosed/infected L OBSTETRIC ASSISTANT-PT PTFE bypass graft, and debridement of L OBSTETRIC ASSISTANT artery with repair of bovine pericardial patch POD#4 from sartorious flap coverage of exposed OBSTETRIC ASSISTANT, POD #2 s/p L AKA. . Leukocytosis today, getting UA with culture. On dapto but may need to broaden pending results. Removing garnica, stopping FRONT DESK COORDINATOR and encouraging mobilization today. PLAN 07/31: 1. Daptomycin, discontinue Zosyn per ID recs as not growing Pseudomonas from groin wound but only from foot, which has been amputated. UA as above. 2. Increase intake of nutritious fluids not just liquid. 3. Stop FRONT DESK COORDINATOR. 4. Taking garnica out. 5. PT/OT consults Juliano Allen [phone]. Vesna Aguila MD - 07/31/2015 12:02 PM [...] contributed Urine out put > 1L yesterday. Mac Operator is stale to improving today Duplex for [...] w/ Dr. Ignacio Moise Nephrology Fellow Pager [phone] Associated attestation - Karen Pierre MD - [...] one that was connected to a Dilaudid FRONT DESK COORDINATOR running at 0.2/5/4 and the other KVO. [...] that are most likely due to Dilaudid FRONT DESK COORDINATOR. Will continue to monitor. Patient remains in [...] Ligation and removal of thrombosed, infected left OBSTETRIC ASSISTANT-PT PTFE bypass graft. ?? 5. Placement of [...] She then underwent a second LLE bypass OBSTETRIC ASSISTANT to PT with PTFE, on 05-26. This was found to be occluded on 06-01. Since that time the patient has had progressive worsening of her medial/distal surgical incision that has failed to heal. With no additional revasc options she was offered opportunityto enrol in stemcell trial, but declined. 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 On 07-20-15 she present to [facility] with SIRS physiology, felt to be related to her leg wound. She declined transfer to [facility] for amputation at that time and was [...] CONDUIT ([place] [address]) performed by Mariano Doyle MD at [facility] OR ??? Pro bypass graft othr, fem-tibial Left 05/26/2015 @BYPASS GRAFT, FEM-ANT TIBIAL, -POST TIBIAL, -PERONEAL, -DP W\ SYNTHETIC CONDUIT performed by Mariano Doyle MD at [facility] OR ??? Pro bypass graft vein patch/cuff, synthetic Left 05/26/2015 PLACEMENT VEIN PATCH OR CUFF AT DISTAL ANASTOMOSIS OF BYPASS GRAFT, SYNTHETIC CONDUIT , MICHAEL-COLLARRACHELLE-PATCH, ADD-ON CODE, LOWER EXTREMITY performed by Mariano Doyle MD at [facility] OR ??? Pro thromboendartectmy iliofemoral Left 05/26/2015 @ENDARTERECTOMY, ILIOFEMORAL W OR W/O PATCH GRAFT performed by Mariano Doyle MD at [facility] OR ??? Pro reoperation, bypass graft Left 05/26/2015 @RE-OP FOR RE-DO LOWER EXTREMITY BYPASS GRAFT, >1 MONTH P\ ORIGINAL SURGERY, ADD-ON CODE performed by Mariano Doyle MD at [facility] OR ??? Pro amputation low leg, circular Left 07/24/2015 @AMPUTATION, BELOW-KNEE, OPEN, GUILLOTINE performed by Elicia Caal MD at [facility] OR ??? Pro exploration, femoral artery Left 07/24/2015 @EXPLORATION, W/WO LYSIS, FEMORAL ARTERY W\O SURGICAL REPAIR performed by Elicia Caal MD at [facility] OR ??? Pro negative pressure wound therapy, less than or equal to 50 sqcm Left 07/24/2015 DRESSING CHANGE (VAC ASSISTED) UP TO 50SQ.CM performed by Elicia Caal MD at [facility] OR ??? Pro rebl ves direct, low extrem Left 07/24/2015 REPAIR LOWER EXTREMITY BLOOD VESSEL, DIRECT, NO PATCH OR GRAFT performed by Elicia Caal MD at [facility] OR ??? Pro excision, infec graft, extremity Left 07/24/2015 EXCISION OF INFECTED GRAFT FROM LOWER EXTREMITY performed by Elicia Caal MD at [facility] OR ??? Pro muscle-skin flap, leg Left 07/27/2015 FLAP, MYOCUTANEOUS OR FASCIOCUTANEOUS, LOWER EXTREMITY performed by Elicia Caal MD at [facility] OR ? ? Pro debridement subcutaneous tissue 20 sqcm/< Left 07/27/2015 DEBRIDEMENT SKIN AND SUBCU, LOWER EXTREMITY performed by Elicia Caal MD at [facility] OR ??? Left 07/27/2015 MODIFIER WOUND VAC performed by Elicia Caal MD at [facility] OR Social History: Patient lives in [place], [place]. Lives with boyfriend. Boyfriend works so [...] pain under control 2/10 @ rest using FRONT DESK COORDINATOR throughout session, more pain in L LE [...] home. Her SO visiting today and mentioned [facility] or [facility] bed (close to home for them). SO states he works at least 50 hours per week. Total time spent with patient: 50 minutes Total timed interventions: 50 minutes TE-F x 3 ANABEL VELA, PT 07/30/2015 Pager: [phone] Physical Therapy Rehabilitation Department Vesna Moise MD [...] yesterday. Urine out put > 1L yesterday. Mac Operator is stale to improving today Duplex for [...] w/ Dr. Ignacio Moise Nephrology Fellow Pager [phone] Associated attestation - Karen Pierre MD - [...] She then underwent a second LLE bypass OBSTETRIC ASSISTANT to PT with PTFE, on 05-26. This was found to be occluded on 06-01. Since that time the patient has had progressive worsening of her medial/distal surgical incision that has failed to heal. Procedures: 07/24: LLE guillotine amp, removal PTFE graft, wound vac, bovine patch OBSTETRIC ASSISTANT 07/27: Wound vac change, sartorious flap coverate [...] amputation LLE with removal of thrombosed/infected L OBSTETRIC ASSISTANT-PT PTFE bypass graft, and debridement of L OBSTETRIC ASSISTANT artery with repair of bovine pericardial patch POD#3 from sartorious flap coverage of exposed OBSTETRIC ASSISTANT, POD #1 s/p L AKA. . Has [...] nutritious fluids not just liquid 3. Continue FRONT DESK COORDINATOR for break through pain control and PO pain meds. Will try to transition off of FRONT DESK COORDINATOR this weekend. Neurontin increased to 400 mg [...] Her pain was controlled well with the FRONT DESK COORDINATOR pump, and one time PRN dose of [...] She then underwent a second LLE bypass OBSTETRIC ASSISTANT to PT with PTFE, on 05-26. This was found to be occluded on 06-01. Since that time the patient has had progressive worsening of her medial/distal surgical incision that has failed to heal. Procedures: 07/24: LLE guillotine amp, removal PTFE graft, wound vac, bovine patch OBSTETRIC ASSISTANT 07/27: Wound vac change, sartorious flap coverate [...] amputation LLE with removal of thrombosed/infected L OBSTETRIC ASSISTANT-PT PTFE bypass graft, and debridement of L OBSTETRIC ASSISTANT artery with repair of bovine pericardial patch POD#2 from sartorious flap coverage of exposed OBSTETRIC ASSISTANT. Continues to do well in this hospitalization. [...] nutritious fluids not just liquid 3. Continue FRONT DESK COORDINATOR for pain control 4. To OR today for AKA and wound vac change 5. Renal duplex MARIANO MIRAMONTES MD 07/29/2015 Vascular Surgery, PGY-1 Pager: [phone] Karen Thornton MD - 07/29/2015 8:03 PM [...] wound cx yielded MRSA and pseudomonas,transferred to [facility] for surgical management.At [facility] she was initiated on iv vancomycin and [...] service will sign off for now,please page [phone] with questions Recommendations discussed with treating team, Consult service will continue to follow patient. x Recommendations are above, please page if further consultation required. Case discussed with ID attending Dr.Talbot Nolberto Starkey MD Infectious Disease fellow Pager [phone] ID ATTENDING I agree with assessment and recommendations above. I reviewed the data set and guided decision-making but did not re-examine the patient today. Karen Thornton MD Page [phone] All of this 35 minute visit were spent on the floor/unit in coordination of care for the patient, regarding treatment of infection as detailed in note above. Bogdan Cazares MD - 07/29/2015 7:58 PM EST Post-Operative Progress Note Patient: Chan Hurst s/p Surgery: 07/29/2015 [id number] Procedure(s) (LRB): DRESSING CHANGE (FOR OTHER THAN [...] NPN. AVSS. Transported to Pre anesthesia with mortgage underwriter. Returned from OR AVSS, lethargic, opens eyes to voice, states she is tired and pain in controlled. OEVRTON, no deficits noted. LLE dressing remains CDI. Vascular team at bedside this evening. Family at bedside, questions answered and support provided, for full assessment and vital signs please see doc flowsheets. Elicia Hawley RN. Bree Wallace RN - 07/29/2015 3:13 PM EST Pt to PACU via bed from OR; monitors applied, alarms set and audible. 1445: FRONT DESK COORDINATOR button given back to pt. Verbalizes understanding [...] 1L yesterday and 175 today so far. Mac Operator is STABLE today Duplex for kidneys showed [...] w/ Dr. 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 O: Patient Active Problem List Diagnosis [...] is agreeable to Boost Glucose Control and Palauan yogurt. Plan/Recommendations: Suggest daily multivitamin Suggest check Hgb A1C Suggest consider carb controlled diet if pt becomes hyperglycemic Will offer Boost Glucose Control & Palauan yogurt per request Nutrition Services to follow [...] She then underwent a second LLE bypass OBSTETRIC ASSISTANT to PT with PTFE, on 05-26. This was found to be occluded on 06-01. Since that time the patient has had progressive worsening of her medial/distal surgical incision that has failed to heal. Procedures: 07/24: LLE guillotine amp, removal PTFE graft, wound vac, bovine patch OBSTETRIC ASSISTANT 07/27: Wound vac change, sartorious flap coverate for patched femoral artery Recent events/symptoms: OR yesterday Pain increased, needed to adjust FRONT DESK COORDINATOR No BM x4 days Currently feeling well w/o nausea or abdominal pain. Moderate LLE pain relieved with FRONT DESK COORDINATOR. O: Last value Range last 24hrs Temperature [...] amputation LLE with removal of thrombosed/infected L OBSTETRIC ASSISTANT-PT PTFE bypass graft, and debridement of L OBSTETRIC ASSISTANT artery with repair of bovine pericardial patch POD#1 from sartorious flap coverage of exposed OBSTETRIC ASSISTANT. Increased pain today from surgery, moderately controlled with FRONT DESK COORDINATOR. As she hasn't had a BM in [...] nutritious fluids not just liquid 3. Continue FRONT DESK COORDINATOR for pain control 4. PT/OT. Activity ad timothy. At least OOB to chair MARIANO MIRAMONTES MD 07/28/2015 Vascular Surgery, PGY-1 Pager: [phone] Bogdan Cazares MD - 07/27/2015 10:01 PM [...] Q4 (has not been receiving) and change board finisher to max of 5mg per hour. Will reassess if this does not keep her comfortable. ?? Pain control needs adjusting - described above ?? Hemodynamically stable. ?? UOP adequate, continue to monitor. ?? Continue post-op plan per primary team. BOGDAN CAZARES MD 07/27/2015 10:03 PM Haley Narayanan RN - 07/27/2015 6:29 PM EST 1730 Pt arrived back to 81A ISCU. 1800 team @ BS, new orders to D/C [...] She then underwent a second LLE bypass OBSTETRIC ASSISTANT to PT with PTFE, on 05-26. This [...] abdominal pain. Moderate LLE pain relieved with FRONT DESK COORDINATOR. O: Last value Range last 24hrs Temperature [...] amputation LLE with removal of thrombosed/infected L OBSTETRIC ASSISTANT-PT PTFE bypass graft, and debridement of L OBSTETRIC ASSISTANT artery with repair of bovine pericardial patch. [...] OR today for sartorious flap coverage of OBSTETRIC ASSISTANT and application of wound vac. Will re-evaluate anahi pearl, most likely will not convert to formal amputation today, although she is consented for a BKA or AKA. PLAN 07/27: 1. Continue to hold Vanc. Zosyn. As above will consult ID for help with abx in light of PANDA. 2. OR today for sart flap and washout 3. 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 She is Jain, values her brigida yet has not had a good health to practice. Assessment: She was scheduled for some surgery which was postponed for today. Intervention and Outcome: Provided pastoral/supportive presence & prayers for God's healing care [facility] Follow-up: Yes Time in Direct Care: 25 [...] She then underwent a second LLE bypass OBSTETRIC ASSISTANT to PT with PTFE, on 05-26. This [...] amputation LLE with removal of thrombosed/infected L OBSTETRIC ASSISTANT-PT PTFE bypass graft, and debridement of L OBSTETRIC ASSISTANT artery with repair of bovine pericardial patch. Overall she is doing well, however her Cr has bumped from 0.3-->0.9-->1.45 indicative of PANDA from supratherapeutic vancomycin. Last night her vanc trough was 23.2. We will continue to give MIVF to help perfuse her kidneys and hopefully decrease any further injury. Plan for the OR today for sartorious flap coverage of OBSTETRIC ASSISTANT and application of wound vac. Will re-evaluate guillotine amp, most likely will not convert to formal amputation today. PLAN 07/26: 1. Continue to hold Vanc. Zosyn. Per OSH records, patient growing pseudomonas and S.aureus in ankle wound senstive to Zosyn and Vancomycin respectively. 2. OR today for sart flap and washout MARIANO MIRAMONTES MD 07/26/2015 Vascular Surgery, PGY-1 Pager: [phone] Mariano Miramontes MD - 07/25/2015 4:17 PM [...] She then underwent a second LLE bypass OBSTETRIC ASSISTANT to PT with PTFE, on 05-26. This [...] amputation LLE with removal of thrombosed/infected L OBSTETRIC ASSISTANT-PT PTFE bypass graft, and debridement of L OBSTETRIC ASSISTANT artery with repair of bovine pericardial patch. Today her Cr is elevated after getting supratherapeutic Vancomycin (trough 26.8). PLAN 07/25: 1. Stop Vanc and remeasure trough this evening. Restart at much lower dose as determined by pharmacy. Continue Zosyn. Will attempt to obtain culture and sensitivity results from [facility] to better guide therapy. 2. Cr 0.3-->0.9. Will give MIVF and continue to follow 3. NPO @[facility] for OR tomorrow MARIANO MIRAMONTES MD 07/25/2015 Vascular Surgery, PGY-1 Pager: [phone] Kelsi Marks RN - 07/25/2015 2:23 PM EST Office of Care Management (OCM) / Thermocouple Tester(CM)/ Initial Assessment Discussed patient with Provider Team [...] CURRENT HOME/COMMUNITY SERVICES/EQUIPMENT: DME: Home Health Agency: [facility]- would use again Other: DEVELOPER SUPPORT ENGINEER REFERRAL: Notified for: AD, Living Will paperwork PRIMARY CARE PHYSICIAN: GORDY MOON MD [address] / [place] [address] POTENTIAL DISCHARGE NEEDS: [facility] vs Rehab ANTICIPATED BARRIERS TO DISCHARGE: None TRANSPORTATION @ D/C: Jaime will provide transportation PLAN: CM will continue to monitor progress, follow for continuity of care and assist with discharge planning while hospitalized . Jamila Boyd [facility] - 07/25/2015 11:24 AM EST Clinical Pharmacist Note-Vanc Chan Hurst [id number] 1950 Chan Hurst is a 64 y.o. [...] have. Alternately, during off-hours you may call [phone] to contact a pharmacist. JAMILA BOYD [facility] Pager [phone] Rachelle López MD - 07/24/2015 5:56 PM EST Post-Operative Progress Note Patient: Chan Hurst s/p Surgery: 07/24/2015 [id number] Procedure(s) (LRB): @AMPUTATION, BELOW-KNEE, OPEN, GUILLOTINE (Left) [...] answers orientation questions but is still drowsy. SENIOR INTERACTIVE DEVELOPER reported that pt was slow towake up. [...] She then underwent a second LLE bypass OBSTETRIC ASSISTANT to PT with PTFE, on 05-26. This was found to be occluded on 06-01. Since that time the patient has had progressive worsening of her medial/distal surgical incision that has failed to heal. Recent events/symptoms: Transferred from [facility] Quite sedated at first due to [...] lower extremity. She has been treated at [facility] since 07/20 with IV Vanc and [...] MIRAMONTES MD 07/24/2015 Vascular Surgery, PGY-1 Pager: [phone] Estrellita Wilson RN - 07/23/2015 7:49 PM EST Details from [facility] report: -NKDA - Planned BKA tomorrow [...] 07/23/2015 6:49 PM EST Report received form [facility]. Pt admitted to floor via stretcher [...] Admission Note Patient Name: Chan Hurst : [id number] MR#: [id number] 07/23/2015 Hospital Day 0 days HPI: 64yo [...] She then underwent a second LLE bypass OBSTETRIC ASSISTANT to PT with PTFE, on 05-26. This was found to be occluded on 06-01. Since that time the patient has had progressive worsening of her medial/distal surgical incision that has failed to heal. With no additional revasc options she was offered opportunity to enrol in stemcell trial, but declined. 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 On 07-20-15 she present to [facility] with SIRS physiology, felt to be related to her leg wound. She declined transfer to [facility] for amputation at that time and was [...] at 72y. Father at age 72 from [place]. Two sisters, overweight, but otherwise healthy. One [...] - close glucose monitoring - amputation tomorrow. HCELA BLANCAS MD 07/23/2015 documented in this encounter [...] to the planned procedure. Hand Hygiene: The expressive music therapist did perform hand hygiene prior to line insertion. Catheter type: PICC Lot number: [id number] Procedure Technique: Skin was prepped with chlorhexidine. [...] Health Knowledge, Opportunity for Enhanced (Adult, NICU, [place], Obstetrics, Pediatric) Goal: Knowledgeable about Health Subject/Topic Patient will demonstrate the desired outcomes. Outcome: Outcome (s) achieved Date Met: 08/03/15 Peripherally Inserted Central Catheter (PICC) Teaching Sheet Peripherally inserted central catheters (ajrn-mb-wbye) (PICC) are used when you need IV [...] midline catheter? PICC lines are used for group home treatments. PICC lines may be used for [...] can be set up via the nurse Thermocouple Tester to help you. What are possible complications [...] and Administration of [employer] 2005 [facility] - Vijaya Sweeney RN - 08/03/2015 4:28 [...] Lower Extremity Amputation (Adult) Intervention: Hemostasis Promotion 07/26/15 08 Cardiac Interventions Hemostasis Promotion other (see comments) (vac dressing) Intervention: Hemodynamic Stabilization 08/01/152021 Cardiac Interventions Hemodynamic Stabilization antihypertensive medication management;HOB elevated;legs elevated;quiet environment promoted Intervention: O2 Consumption Minimization 07/28/15 08 Cardiac Interventions O2 Consumption Minimization activity scheduled;activity adjusted to patient tolerance;low stimulation maintained;sleep/rest promoted Intervention: Functional Emery Promotion 08/01/152021 Musculoskeletal Interventions Functional Emery Promotion adaptive equipment provided;independence in BADLs promoted;instruction [...] Ligation and removal of thrombosed, infected left OBSTETRIC ASSISTANT-PT PTFE bypass graft. ?? 5. Placement of [...] CONDUIT ([place] [address]) performed by Mariano Doyle MD at [facility] MAIN OR ??? Pro bypass graft othr, fem-tibial Left 05/26/2015 @BYPASS GRAFT, FEM-ANT TIBIAL, -POST TIBIAL, -PERONEAL, -DP W\ SYNTHETIC CONDUIT performed by Mariano Doyle MD at [facility] MAIN OR ??? Pro bypass graft vein patch/cuff, synthetic Left 05/26/2015 PLACEMENT VEIN PATCH OR CUFF AT DISTAL ANASTOMOSIS OF BYPASS GRAFT, SYNTHETIC CONDUIT , RODRIGUEZ-COLLAR, RACHELLE-PATCH, ADD-ON CODE, LOWER EXTREMITY performed by Mariano Doyle MD at [facility] OR ??? Pro thromboendartectmy iliofemoral Left 05/26/2015 @ENDARTERECTOMY, ILIOFEMORAL W OR W/O PATCH GRAFT performed by Mariano Doyle MD at [facility] OR ??? Pro reoperation, bypass graft Left 05/26/2015 @RE-OP FOR RE-DO LOWER EXTREMITY BYPASS GRAFT, >1 MONTH P\ ORIGINAL SURGERY, ADD-ON CODE performed by Mariano Doyle MD at [facility] OR ??? Pro amputation low leg, circular Left 07/24/2015 @AMPUTATION, BELOW-KNEE, OPEN, GUILLOTINE performed by Elicia Caal MD at [facility] OR ??? Pro exploration, femoral artery Left 07/24/2015 @EXPLORATION, W/WO LYSIS, FEMORAL ARTERY W\O SURGICAL REPAIR performed by Elicia Caal MD at [facility] OR ??? Pro negative pressure wound therapy, less than or equal to 50 sqcm Left 07/24/2015 DRESSING CHANGE (VAC ASSISTED) UP TO 50SQ.CM performed by Elicia Caal MD at [facility] OR ??? Pro rebl ves direct, low extrem Left 07/24/2015 REPAIR LOWER EXTREMITY BLOOD VESSEL, DIRECT, NO PATCH OR GRAFT performed by Elicia Caal MD at [facility] OR ??? Pro excision, infec graft, extremity Left 07/24/2015 EXCISION OF INFECTED GRAFT FROM LOWER EXTREMITY performed by Elicia Caal MD at [facility] OR ??? Pro muscle-skin flap, leg Left 07/27/2015 FLAP, MYOCUTANEOUS OR FASCIOCUTANEOUS, LOWER EXTREMITY performed by Elicia Caal MD at [facility] OR ? ? Pro debridement subcutaneous tissue 20 sqcm/< Left 07/27/2015 DEBRIDEMENT SKIN AND SUBCU, LOWER EXTREMITY performed by Elicia Caal MD at [facility] OR ??? Left 07/27/2015 MODIFIER WOUND VAC performed by Elicia Caal MD at [facility] OR Social History: Patient lives with [...] right slipper Toileting ?? [facility] with nursing IADLs: ?? Will [...] minutes Total timed interventions: 0 minutes Pager: [phone] DEBI DUBON OT 07/31/2015 Occupational Therapy Rehabilitation Department Op Note - Juliano Allen - 07/29/2015 2:[address] [facility] Operative Note Patient Name: Chan Hurst : 1950 MR#: [id number] Case Date: 07/29/2015 Date of Operation: 07/29/2015. [...] Operative Note Patient Name: Chan Hurst : [id number] MR#: [id number] Case Date: 07/29/2015 Surgeon: Surgeon(s) and Role: [...] Drains: Drain/Device Site 07/24/15 Left medial calf Odell (Active) Insertion Site dressing intact 07/29/2015 8:00 [...] been stable overnight. Pain well controlled with FRONT DESK COORDINATOR pump and PRN tylenol and oxycodone.She did complain of some pain in her amputated leg while being repositioned. I encouraged her to push her FRONT DESK COORDINATOR button to receive pain medication. NPO for [...] MRSA and pseudomonas. she was transferred to [facility] for further evaluation and underwent BKA of [...] CONDUIT ([place] [address]) performed by Mariano Doyle MD at [facility] MAIN OR ??? Pro bypass graft othr, fem-tibial Left 05/26/2015 @BYPASS GRAFT, FEM-ANT TIBIAL, -POST TIBIAL, -PERONEAL, -DP W\ SYNTHETIC CONDUIT performed by Mariano Doyle MD at [facility] OR ??? Pro bypass graft vein patch/cuff, synthetic Left 05/26/2015 PLACEMENT VEIN PATCH OR CUFF AT DISTAL ANASTOMOSIS OF BYPASS GRAFT, SYNTHETIC CONDUIT , RODRIGUEZ-COLLAR, RACHELLE-PATCH, ADD-ON CODE, LOWER EXTREMITY performed by Mariano Doyle MD at [facility] OR ??? Pro thromboendartectmy iliofemoral Left 05/26/2015 @ENDARTERECTOMY, ILIOFEMORAL W OR W/O PATCH GRAFT performed by Mariano Doyle MD at [facility] OR ??? Pro reoperation, bypass graft Left 05/26/2015 @RE-OP FOR RE-DO LOWER EXTREMITY BYPASS GRAFT, >1 MONTH P\ ORIGINAL SURGERY, ADD-ON CODE performed by Mariano Doyle MD at [facility] OR ??? Pro amputation low leg, circular Left 07/24/2015 @AMPUTATION, BELOW-KNEE, OPEN, GUILLOTINE performed by Elicia Caal MD at [facility] OR ??? Pro exploration, femoral artery Left 07/24/2015 @EXPLORATION, W/WO LYSIS, FEMORAL ARTERY W\O SURGICAL REPAIR performed by Elicia Caal MD at [facility] OR ??? Pro negative pressure wound therapy, less than or equal to 50 sqcm Left 07/24/2015 DRESSING CHANGE (VAC ASSISTED) UP TO 50SQ.CM performed by Elicia Caal MD at [facility] OR ??? Pro rebl ves direct, low extrem Left 07/24/2015 REPAIR LOWER EXTREMITY BLOOD VESSEL, DIRECT, NO PATCH OR GRAFT performed by Elicia Caal MD at [facility] OR ??? Pro excision, infec graft, extremity Left 07/24/2015 EXCISION OF INFECTED GRAFT FROM LOWER EXTREMITY performed by Elicia Caal MD at [facility] OR ??? Pro muscle-skin flap, leg Left 07/27/2015 FLAP, MYOCUTANEOUS OR FASCIOCUTANEOUS, LOWER EXTREMITY performed by Elicia Caal MD at [facility] OR ? ? Pro debridement subcutaneous tissue 20 sqcm/< Left 07/27/2015 DEBRIDEMENT SKIN AND SUBCU, LOWER EXTREMITY performed by Elicia Caal MD at [facility] OR ??? Left 07/27/2015 MODIFIER WOUND VAC performed by Elicia Caal MD at [facility] MAIN OR Family History Problem Relation [...] days Hb 9 K 3.9 BUN 20 dray driver 1.85 FeNa 1.3 vanco level 26.8 from [...] w/ Dr. Ritesh Moise Nephrology Fellow Pager [phone] Renal Attending Inpatient Consult We are asked [...] Caal, Elicia Uriarte, * in transfer from [facility] for Vascular service consult who presents now with wet gangreneof the left lower extremity. 07-24-15: OR Procedure(s): 1. Left below-knee guillotine amputation 2. Incision and drainage of multiple LLE abscesses 3. Left common femoral artery exposure, debridement and repair with bovine pericardial patch. 4. Ligation and removal of thrombosed, infected left OBSTETRIC ASSISTANT-PT PTFE bypass graft. ?? 5. Placement of [...] She then underwent a second LLE bypass OBSTETRIC ASSISTANT to PT with PTFE, on 05-26. This was found to be occluded on 06-01. Since that time the patient has had progressive worsening of her medial/distal surgical incision that has failed to heal. With no additional revasc options she was offered opportunity to enrol in stemcell trial, but declined. 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 On 07-20-15 she present to [facility] with SIRS physiology, felt to be related to her leg wound. She declined transfer to [facility] for amputation at that time and was [...] CONDUIT ([place] [address]) performed by Mariano Doyle MD at [facility] MAIN OR ??? Pro bypass graft othr, fem-tibial Left 05/26/2015 @BYPASS GRAFT, FEM-ANT TIBIAL, -POST TIBIAL, -PERONEAL, -DP W\ SYNTHETIC CONDUIT performed by Mariano Doyle MD at [facility] MAIN OR ??? Pro bypass graft vein patch/cuff, synthetic Left 05/26/2015 PLACEMENT VEIN PATCH OR CUFF AT DISTAL ANASTOMOSIS OF BYPASS GRAFT, SYNTHETIC CONDUIT , MICHAEL-COLLAR, RACHELLE-PATCH, ADD-ON CODE, LOWER EXTREMITY performed by Mariano Doyle MD at [facility] MAIN OR ??? Pro thromboendartectmy iliofemoral Left 05/26/2015 @ENDARTERECTOMY, ILIOFEMORAL W OR W/O PATCH GRAFT performed by Mariano Doyle MD at [facility] MAIN OR ??? Pro reoperation, bypass graft Left 05/26/2015 @RE-OP FOR RE-DO LOWER EXTREMITY BYPASS GRAFT, >1 MONTH P\ ORIGINAL SURGERY, ADD-ON CODE performed by Mariano Doyle MD at [facility] MAIN OR ??? Pro amputation low leg, circular Left 07/24/2015 @AMPUTATION, BELOW-KNEE, OPEN, GUILLOTINE performed by Elicia Caal MD at [facility] OR ??? Pro exploration, femoral artery Left 07/24/2015 @EXPLORATION, W/WO LYSIS, FEMORAL ARTERY W\O SURGICAL REPAIR performed by Elicia Caal MD at [facility] MAIN OR ??? Pro negative pressure wound therapy, less than or equal to 50 sqcm Left 07/24/2015 DRESSING CHANGE (VAC ASSISTED) UP TO 50SQ.CM performed by Elicia Caal MD at [facility] MAIN OR ??? Pro rebl ves direct, low extrem Left 07/24/2015 REPAIR LOWER EXTREMITY BLOOD VESSEL, DIRECT, NO PATCH OR GRAFT performed by Elicia Caal MD at [facility] OR ??? Pro excision, infec graft, extremity Left 07/24/2015 EXCISION OF INFECTED GRAFT FROM LOWER EXTREMITY performed by Elicia Caal MD at [facility] OR Social History: Patient lives in [place], [place]. Lives with boyfriend. Boyfriend works so [...] in chair to eat lunch. Discussed with staff sonographer back to bed later from the chair: [...] 0 minutes ANABEL VELA, PT 07/28/2015 Pager: [phone] Physical Therapy Rehabilitation Department Consult Note - Donita Agrawal RN - 07/28/2015 11:05 AM EST Images from the original note were not included. Certified Wound Care Nurse Note Situation: Asked to see Chan Shayla Aris by nursing for fissure to sacrum after the OR Background: eD-H notes reviewed for history, admitting diagnosis and active problem list. Wound Assessment and Care Provided: Pt sitting up in bed, s/p surgery. RN states previous concern for kenneth wrap to LLE, per vehicle assembler removed and re-dressed by surgery. Dressing intact at time of assessment and being managed by vascular surgery. Explained purpose of visit and pt agreed to assessment. Pt turned self to left side with minassist. Pt used FRONT DESK COORDINATOR prior to turn. Sacral mepilex dressing removed. [...] of bed. Discussed plan with: RN: Mihaela Detnon Please contact DONITA AGRAWAL RN on pager [phone] or the wound care team at [phone] or pager [phone] with skin and wound care concerns or [...] sacrum. Pain seemed to me managed with FRONT DESK COORDINATOR. Did not need additional interventions for pain [...] Outcome: Ongoing (Interventions Implemented as Appropriate) 07/27/15199907/28/15 040 Safety Interventions Isolation Precautions -- standard precautions [...] Ongoing (Interventions Implemented as Appropriate) 07/27/15 0552 07/27/15799 Plan of Care Review Plan of Care [...] OUTCOME SUMMARY: To OR today, see note. FRONT DESK COORDINATOR for pain mgmt. Vac Dsg to -125 @ change of shift. Diet advanced, tolerated well. PLAN MOVING FORWARD: wound vac, pain mgmt, ? Return to OR INDIVIDUALIZED FALL PREVENTION: Assistance: bedrest Supervision: By RN station, tele, spo2 Surveillance: Bed alarm CPG GOAL OUTCOME EVALUATION: Op Note - Juliano Allen - 07/27/2015 2:[address] [facility] Operative Note Patient Name: Chan Hurst : 1950 MR#: [id number] Case Date: 07/27/2015 Date of Operation: 07/27/2015. [...] Operative Note Patient Name: Chan Hurst : [id number] MR#: [id number] Case Date: 07/27/2015 Surgeon: Surgeon(s) and Role: [...] revealed MRSA and pseudomonas,she was transferred to [facility] for further evaluation. At [facility] she was started on iv vancomycin and pip tazo, evaluated by vascular surgery taken to OR on 07/24/15 s/p guillotine BKA of left LE with large amounts of purulent drainage expressed from the graft tunnel,incision was extended along medial calf s/p removal of PTFE graft and bovine patch debrided til OBSTETRIC ASSISTANT and new bovine patch,small collection in left [...] Vancomycin Sensitive Imaging: No new imaging at [facility] Impression:Chan Hurst is a 64 y.o. female with above mentioned multiple comorbidities p/w leftfoot wet gangrene to OSH with septic physiology wound cx yielded MRSA and pseudomonas,[facility].At [facility] she was initiated on iv vancomycin and [...] will continue to follow the patient,please page [phone] with questions Above recommendations were communicated with the primary team x Recommendations discussed with primary team. Consult service will continue to follow patient. Recommendations discussed with primary team. ID will sign off. Please page [phone] if further consultation required. Case discussed with ID attending Dr.Talbot NOLBERTO STARKEY MD, Fellow, Infectious Disease Pager [phone] Infectious Diseases Attending I saw the patient with the infectious diseases fellow, and agree with the presentation of data and the assessment and plan as outlined above. Karen Thornton MD Risk Compliance Analyst Page [phone] 35 minutes of this 55 minute visit [...] effectively managed with PRN oxycodone and dilaudid FRONT DESK COORDINATOR. NPO at midnight and maintenance fluids at 50 cc/hr. L. Groin wound vac with approx 100 cc serosangoutput. PLAN MOVING FORWARD: OR today, pain control, SBP <150 INDIVIDUALIZED FALL PREVENTION: Assistance: 2 assist with turn/repo Supervision: Per Rn Surveillance: Cesar [facility] OUTCOME EVALUATION: Plan of Care - Josephine [...] of the day and easily arousible. Using FRONT DESK COORDINATOR appropriately, given prn oxycodone for pain managment. [...] AM EST Clinical Pharmacist Note-Vanc Chan Hurst [id number] 1950 Chan Hurst is a 64 y.o. [...] have. Alternately, during off-hours you may call [phone] to contact a pharmacist. BAO KUMAR PHARMD Pager [phone] Plan of Care - Angelika Fox RN [...] would complain of LLE pains - reinforced FRONT DESK COORDINATOR education and administered PRN tylenol with good effect. Neurovascular assessments remain unchanged as documented in adult patient care summary. PLAN MOVING FORWARD: ~NPO at midnight in anticipation of OR washout tomorrow ~Reinforce FRONT DESK COORDINATOR education for pain management and supplement with [...] Chela Blancas - 07/24/2015 5:[address] [facility] Operative Note Patient Name: Chan Hurst : [id number] MR#: [id number] Case Date: 07/24/2015 Case Date: 07/24/2015 Surgeon: [...] Ligation and removal of thrombosed, infected left OBSTETRIC ASSISTANT-PT PTFE bypass graft. ?? 5. Placement of [...] ligated and resected; bovine pericardial patch resected, OBSTETRIC ASSISTANT debrided and repaired with new bovine pericardial [...] She then underwent a second LLE bypass OBSTETRIC ASSISTANT to PT with PTFE, on 05-26. This [...] graft must be explanted and the left OBSTETRIC ASSISTANT be explored. Hemostasis of the amputation site [...] through copious scar tissue onto the EIA, OBSTETRIC ASSISTANT, PTFE bypass graft with underlying bovine patch; [...] was removed sharply with an 11-blade. The OBSTETRIC ASSISTANT was debrided sharply with the 11-blade, back to healthy appearing tissue. The wound and graft tunnel were aggressively irrigated. The artery was then repaired with bovine pericardial patch angioplasty using 6-0 prolene in a running fashion. All vessels were unclamped. Doppler signals were confirmed in OBSTETRIC ASSISTANT and profunda artery. Thrombin-soaked gelfoam was applied [...] Operative Note Patient Name: Chan Hurst : [id number] MR#: [id number] Case Date: 07/24/2015 Surgeon: Surgeon(s) and Role: [...] Ligation and removal of thrombosed, infected left OBSTETRIC ASSISTANT-PT PTFE bypass graft. 5. Placement of wound [...] ligated and resected; bovine pericardial patch resected, OBSTETRIC ASSISTANT debrided and repaired with new bovine pericardial [...] Diagnosis LAB SCAN 08/04/2015 12:00 AM EST TERMINAL OPERATOR SCAN 08/04/2015 12:[address] [...] TYPE AND SCREEN Routine 08/02/2015 8:27 AM ([facility]ERO) EST PREPARE RBC Routine 08/02/2015 8:15 AM [...] TYPE AND SCREEN Routine 07/26/2015 4:25 PM ([facility]) EST BASIC METABOLIC PANEL STAT 07/26/2015 4:15 [...] TYPE AND SCREEN Routine 07/23/2015 8:50 PM ([facility]) EST VANCOMYCIN, TROUGH Timed 07/23/2015 8:50 PM Res ults for this EST procedure are i n the results section. BASIC METABOLIC PANEL Routine 07/23/2015 8:50 PM Results for this (NON-FASTING) EST procedure are in the results section. AMPUTATION, Routine 07/23/2015 8:18 PM BELOW-KNEE, OPEN, EST GUILLOTINE documented in this encounter Results SCAN DOC: TERMINAL OPERATOR (08/04/2015 12:00 AM EST) Narrative This result has an attachment that is no t available. Scanning Provider MEDIA MGR SCAN EXT ORDR/RSLT SCAN DOC: LAB (08/04/2015 12:00 AM EST) Narrative This result has an attachment that is no t available. Scanning Provider MEDIA MGR SCAN EXT ORDR/RSLT Place PICC Line: Contact Vascular Access Page [phone] Extremity to exclude: No restrictions; Is PICC [...] the planned procedu re. Hand Hygiene: The expressive music therapist did perform hand hygiene pr ior to line insertion. Catheter type: PICC Lot number: [id number] Procedure Technique: Skin was prepped with chlorhexidine. [...] CARE TEST ORDERABLE S Performing Organization Address City/[facility]/ZIP Code Phon e Number [address] CERNER MILLENNIUM POCT Glucose [...] CARE TEST ORDERABLE S Performing Organization Address City/[facility]/[place] [address] CERNER MILLENNIUM (ABNORMAL) Differential, Automated (08/03/2015 4:40 AM EST) Patholo gist Method Time Signature Neutrophils % 79.1 [...] Organization Address City/State/[place] [address] CERNER MILLENNIUM (ABNORMAL) Hemogram [...] Organization Address City/State/[place] [address] CERNER MILLENNIUM (ABNORMAL) Basic [...] intervals supplied above were not validated at [facility]. Results from pediatri c patients should be [...] the following links into your internet browser. [email or web address] Specimen Anatomical Collection Method Collection Time Receive d Time (Source) Location / / Volume Laterality Blood specimen 08/03/2015 4:40 AM 016 4:57 (specimen) EST AM EST Resulting Agency Comment Spec In Lab Elicia Caal MD CHEMISTRY ORDERABLES Performing Organization Address City/[facility]/ZIP Code Phon e Number [address] CERNER MILLENNIUM POCT Glucose (08/03/2015 3:32 AM EST) athologist [facility] POC Glucose 145 65 - 199 CERNER mg/dL [facility] Comment: Supplemental ranges: <140 mg/dL before meals <180 mg/dL all other times of the day Specimen Anatomical Collection Method Collection Time Receive d Time (Source) Location / / Volume Laterality Blood specimen 08/03/2015 3:32 AM 016 3:32 (specimen) EST AM EST Elicia Caal MD POINT OF CARE TEST ORDERABLE S Performing Organization Address City/State/ZIP Code Phon e Number [address] CERNER MILLENNIUM POCT Glucose (08/03/2015 12:00 AM EST) athologist Signature POC Glucose 142 65 - [...] Organization Address City/State/[place] [address] CERNER MILLENNIUM POCT Glucose (08/02/2015 7:17 PM EST) athologist Signature POC Glucose 181 65 - 199 CERNER mg/dL [facility] Comment: Supplemental ranges: <140 mg/dL before meals <180 mg/dL all other times of the day Specimen Anatomical Collection Method Collection Time Receive d Time (Source) Location / / Volume Laterality Blood specimen 08/02/2015 7:17 PM 016 7:17 (specimen) EST PM EST Elicia Caal MD POINT OF CARE TEST ORDERABLE S Performing Organization Address City/[facility]/ZIP Code Phon e Number [address] CERNER MILLENNIUM (ABNORMAL) POCT Glucose (08/02/2015 4:32 PM EST) athologist Signature POC Glucose 223 (H) 65 - 199 CERNER mg/dL [facility] Comment: Supplemental ranges: <140 mg/dL before meals <180 mg/dL all other times of the day Specimen Anatomical Collection Method Collection Time Receive d Time (Source) Location / / Volume Laterality Blood specimen 08/02/2015 4:32 PM 016 4:32 (specimen) EST PM EST Elicia Caal MD POINT OF CARE TEST ORDERABLE S Performing Organization Address City/[facility]/ZIP Code Phon e Number [address] CERNER MILLENNIUM U24 Hrs [...] Pierre MD CHEMISTRY ORDERABLES Performing Organization Address City/[facility]/[place] [address] CERNER MILLENNIUM (ABNORMAL) Creatinine [...] Pierre MD URINE ORDERABLES Performing Organization Address City/[facility]/ZIP Code Phon e Number [address] CERNER MILLENNIUM Transfuse RBC [...] Organization Address City/State/[place] [address] [facility] MILLENNIUM Antibody screen (08/02/2015 8:27 AM EST) Patholo gist Method Time Signature Ab Screen Negative [facility] Interp M[facility]NIUM [facility] at 08/05/[id number] on: MILLENNIUM Specimen Anatomical Collection Method Collection Time Receive d Time (Source) Location / / Volume Laterality Blood specimen 08/02/2015 8:27 AM 016 8:33 (specimen) EST AM EST Resulting Agency Comment Spec In Lab Elicia Caal MD BLOOD BANK ORDERABLES Performing Organization Address City/[facility]/[place] [address] [facility] CAPOENNIUM ABO/Rh Typing (08/02/2015 8:27 AM EST) P athologist Signature ABORh Type A Neg [facility] Specimen Anatomical Collection Method Collection Time Receive d Time (Source) Location / / Volume Laterality Blood specimen 08/02/2015 8:27 AM 016 8:33 (specimen) EST AM EST Resulting Agency Comment Spec In Lab Elicia Caal MD BLOOD BANK ORDERABLES Performing Organization Address City/[facility]/[place] [address] [facility] CAPOENNIUM Prepare RBC (08/02/2015 8:15 AM EST) P athologist Signature Dispensed? Yes [facility] Specimen Anatomical Collection Method Collection Time Receive d Time (Source) Location / / Volume Laterality Blood specimen 08/02/2015 8:15 AM 016 8:14 (specimen) EST AM EST Resulting Agency Comment Spec In Lab Elicia Caal MD BLOOD BANK ORDERABLES Performing Organization Address City/State/[place] [address] [facility] MILLENNIUM POCT Glucose (08/02/2015 7:02 AM EST) P athologist Signature POC Glucose 184 65 - 199 CERNER mg/dL MILLENNIUM Comment: Supplemental ranges: <140 mg/dL before meals <180 mg/dL all other times of the day Specimen Anatomical Collection Method Collection Time Receive d Time (Source) Location / / Volume Laterality Blood specimen 08/02/2015 7:02 AM 016 7:02 (specimen) EST AM EST Eliica Caal MD POINT OF CARE TEST ORDERABLE S Performing Organization Address City/State/ZIP Code Phon e Number [place] [id number] CERNER MILLENNIUM (ABNORMAL) Differential, Automated (08/02/2015 5:05 AM EST) Patholo gist Method Time Signature Neutrophils % 81.0 [...] Caal MD HEMATOLOGY ORDERABLES Performing Organization Address City/[facility]/ZIP Code Phon e Number [address] CERNER MILLENNIUM (ABNORMAL) Hemogram (08/02/2015 [...] Caal MD HEMATOLOGY ORDERABLES Performing Organization Address City/[facility]/[place] [address] CERNER MILLENNIUM (ABNORMAL) Basic [...] intervals supplied above were not validated at [facility]. Results from pediatri c patients should be [...] the following links into your internet browser. [email or web address] Specimen Anatomical Collection Method Collection Time Receive d Time (Source) Location / / Volume Laterality Blood specimen 08/02/2015 5:05 AM 016 5:21 (specimen) EST AM EST Resulting Agency Comment Spec In Lab Elicia Caal MD CHEMISTRY ORDERABLES Performing Organization Address City/State/[place] [address] CERNER MILLENNIUM POCT Glucose [...] Organization Address City/State/ZIP Code Phon e Number [address] CERNER MILLENNIUM POCT Glucose (08/02/2015 12:08 AM EST) athologist Signature POC Glucose 190 65 - 199 CERNER mg/dL [facility] Comment: Supplemental ranges: <140 mg/dL before meals <180 mg/dL all other times of the day Specimen Anatomical Collection Method Collection Time Receive d Time (Source) Location / / Volume Laterality Blood specimen 08/02/2015 12:08 6 (specimen) AM EST 12:08 AM EST Elicia Caal MD POINT OF CARE TEST ORDERABLE S Performing Organization Address City/[facility]/ZIP Code Phon e Number [address] CERNER MILLENNIUM (ABNORMAL) POCT Glucose (08/01/2015 6:52 PM EST) athologist Signature POC Glucose 230 (H) 65 - 199 CERNER mg/dL [facility] Comment: Supplemental ranges: <140 mg/dL before meals <180 mg/dL all other times of the day Specimen Anatomical Collection Method Collection Time Receive d Time (Source) Location / / Volume Laterality Blood specimen 08/01/2015 6:52 PM 016 6:52 (specimen) EST PM EST Elicia Caal MD POINT OF CARE TEST ORDERABLE S Performing Organization Address City/State/ZIP Code Phon e Number [address] CERNER MILLENNIUM (ABNORMAL) POCT Glucose (08/01/2015 4:40 PM EST) athologist Signature POC Glucose 269 (H) 65 - 199 CERNER mg/dL [facility] Comment: Supplemental ranges: <140 mg/dL before meals <180 mg/dL all other times of the day Specimen Anatomical Collection Method Collection Time Receive d Time (Source) Location / / Volume Laterality Blood specimen 08/01/2015 4:40 PM 016 4:40 (specimen) EST PM EST Elicia Caal MD POINT OF CARE TEST ORDERABLE S Performing Organization Address City/[facility] [place] [address] [facility] [address] [facility] Cystatin C (08/01/2015 1:50 PM EST) athologist Signature Cystatin C 1.22 0.66 - 1.26 CERNER mg/L [facility] Comment: Test Performed by: [facility] [place] [address] Search Engine Optimization Consultant: Bharat Campos II, M.D., Ph.D. Cystatin C eGFR 55 >60 mL/min/BSA [facility] Comment: ADDITIONAL INFORMATIO N Cystatin C-based eGFR may differ substan tially from creatinine-based eGFR in patients with a bnormal muscle mass or acutely changing renal function. ??Pl ease interpret together with relevant clinical features . Test Performed by: [facility] [place] [address] Search Engine Optimization Consultant: Bharat Campos II, M.D., Ph.D. Specimen Anatomical Collection Method Collection Time Receive d Time (Source) Location / / Volume Laterality Blood specimen 08/01/2015 1:50 PM 016 3:31 (specimen) EST PM EST Resulting Agency Comment Spec In Lab Karen Pierre MD CHEMISTRY ORDERABLES Performing Organization Address City/[facility]/ZIP Code Phon e Number [facility] [place] [address] CERPILI BRIGHTIUM (ABNORMAL) POCT Glucose (08/01/2015 12:29 PM EST) P athologist Signature POC Glucose 209 (H) 65 - 199 CERNER mg/dL [facility] Comment: Supplemental ranges: <140 mg/dL before meals <180 mg/dL all other times of the day Specimen Anatomical Collection Method Collection Time Receive d Time (Source) Location / / Volume Laterality Blood specimen 08/01/2015 12:29 6 (specimen) PM EST 12:29 PM EST Elicia Caal MD POINT OF CARE TEST ORDERABLE S Performing Organization Address City/State/ZIP Code Phon e Number [place] [address] DANIEL SIMON XR Chest Routine PA & Lateral (08/01/2015 [...] ? COMPARISON: 07/20/2015 from an outside in [facility]. FINDINGS: Fine reticular markings in the [...] hest. COMPARISON: 07/20/2015 from an outside in [facility]. FINDINGS: Fine reticular markings in the [...] Organization Address City/State/[place] [address] CERNER MILLENNIUM (ABNORMAL) Differential, Automated (08/01/2015 4:39 AM EST) [facility] gist Method Time Signature Neutrophils % 84.9 [...] Organization Address City/State/ZIP Code Phon e Number [place] [phone] CERNER MILLENNIUM (ABNORMAL) Hemogram [...] HEMATOLOGY ORDERABLES Performing Organization Address City/State/ZIP Code Terri GOMES [place] [id number] CERNER MILLENNIUM (ABNORMAL) Basic [...] intervals supplied above were not validated at [facility]. Results from pediatri c patients should be [...] the following links into your internet browser. [email or web address] Specimen Anatomical Collection Method Collection Time Receive d Time (Source) Location / / Volume Laterality Blood specimen 08/01/2015 4:39 AM 016 4:53 (specimen) EST AM EST Resulting Agency Comment Spec In Lab Elicia Caal MD CHEMISTRY ORDERABLES Performing Organization Address City/State/ZIP Code Phon e Number [address] CERNER MILLENNIUM (ABNORMAL) POCT [...] CARE TEST ORDERABLE S Performing Organization Address City/[facility]/ZIP Code Phon e Number [address] CERNER MILLENNIUM (ABNORMAL) POCT [...] CARE TEST ORDERABLE S Performing Organization Address City/[facility]/ZIP Code Phon e Number [address] CERNER MILLENNIUM (ABNORMAL) POCT [...] CARE TEST ORDERABLE S Performing Organization Address City/[facility]/ZIP Code Phon e Number [address] CERNER MILLENNIUM (ABNORMAL) POCT [...] CARE TEST ORDERABLE S Performing Organization Address City/[facility]/ZIP Code Phon e Number [address] CERNER MILLENNIUM C. Difficile Screen (07/31/2015 12:46 PM EST) Analysis Performed At [facility] Time Signature C Diff Screen Negative Negative CERNER MILLENNIUM Specimen Anatomical Collection Method Collection Time Receive d Time (Source) Location / / Volume Laterality Stool specimen 07/31/2015 12:46 6 1:15 (specimen) PM EST PM EST Resulting Agency Comment Spec In Lab Elicia Caal MD MICROBIOLOGY - GENERAL ORDER STAN Performing Organization Address City/[facility]/ZIP Code Phon e Number [address] CERNER MILLENNIUM (ABNORMAL) POCT [...] CARE TEST ORDERABLE S Performing Organization Address City/[facility]/[place] [address] CERNER MILLENNIUM Urine culture (07/31/2015 9:50 AM EST) [email or web address] Method Time Signature Urine Culture No growth [...] Organization Address City/State/[place] [address] CERNER MILLENNIUM (ABNORMAL) Urinalysis with reflex Culture (07/31/2015 9:50 AM EST) [email or web address] Method Time Signature Glucose UA 150 (A) [...] UA Clear Clear CERNER MILLENNIU M Spec [place] UA 1.005 1.002 - 1.030 CERNER MIL [...] Organization Address City/State/ZIP Code Phon e Number [place] [id number] CERNER MILLENNIUM (ABNORMAL) Differential, Automated (07/31/2015 7:29 AM EST) [facility] gist Method Time Signature Neutrophils % 89.5 % [...] Caal MD HEMATOLOGY ORDERABLES Performing Organization Address City/[facility]/ZIP Code Phon e Number [address] CERNER MILLENNIUM (ABNORMAL) Hemogram (07/31/2015 [...] Caal MD HEMATOLOGY ORDERABLES Performing Organization Address City/[facility]/[place] [address] CERNER MILLENNIUM (ABNORMAL) Basic [...] intervals supplied above were not validated at [facility]. Results from pediatri c patients should be [...] the following links into your internet browser. [email or web address] Specimen Anatomical Collection Method Collection Time Receive d Time (Source) Location / / Volume Laterality Blood specimen 07/31/2015 7:29 AM 016 7:36 (specimen) EST AM EST Resulting Agency Comment Spec In Lab Elicia Caal MD CHEMISTRY ORDERABLES Performing Organization Address City/[facility]/ZIP Code Phon e Number [address] CERNER MILLENNIUM (ABNORMAL) POCT Glucose (07/31/2015 7:28 AM EST) P athologist Signature POC Glucose 208 (H) 65 [...] CARE TEST ORDERABLE S Performing Organization Address City/[facility]/ZIP Code Phon e Number [address] CERNER MILLENNIUM (ABNORMAL) POCT [...] CARE TEST ORDERABLE S Performing Organization Address City/[facility]/[place] [address] CERNER MILLENNIUM POCT Glucose (07/30/2015 [...] CARE TEST ORDERABLE S Performing Organization Address City/[facility]/ZIP Code Phon e Number [address] CERNER MILLENNIUM (ABNORMAL) POCT [...] CARE TEST ORDERABLE S Performing Organization Address City/[facility]/ZIP Code Phon e Number [address] CERNER MILLENNIUM (ABNORMAL) POCT [...] CARE TEST ORDERABLE S Performing Organization Address City/[facility]/ZIP Code Phon e Number [address] CERNER MILLENNIUM POCT Glucose [...] CARE TEST ORDERABLE S Performing Organization Address City/[facility]/ZIP Code Phon e Number [address] CERNER MILLENNIUM (ABNORMAL) Differential, Automated (07/30/2015 8:11 AM EST) [facility] Method Time Signature Neutrophils % 82.3 % [...] Caal MD HEMATOLOGY ORDERABLES Performing Organization Address City/[facility]/ZIP Code Phon e Number [address] CERNER MILLENNIUM (ABNORMAL) Hemogram [...] Organization Address City/State/[place] [address] [address] CERNER MILLENNIUM (ABNORMAL) Basic [...] intervals supplied above were not validated at [facility]. Results from pediatri c patients should be [...] the following links into your internet browser. [email or web address] Specimen Anatomical Collection Method Collection Time Receive d Time (Source) Location / / Volume Laterality Blood specimen 07/30/2015 8:11 AM 016 8:16 (specimen) EST AM EST Resulting Agency Comment Spec In Lab Elicia Caal MD CHEMISTRY ORDERABLES Performing Organization Address City/State/[place] [address] CERNER MILLENNIUM (ABNORMAL) POCT [...] CARE TEST ORDERABLE S Performing Organization Address City/[facility]/[place] [address] CERNER MILLENNIUM POCT Glucose [...] CARE TEST ORDERABLE S Performing Organization Address City/[facility]/ZIP Code Phon e Number [address] CERNER MILLENNIUM POCT Glucose (07/29/2015 1:27 PM EST) P athologist Signature POC Glucose 163 65 - 199 CERNER mg/dL MILLENNIUM Comment: Supplemental ranges: <140 mg/dL before meals <180 mg/dL all other times of the day Specimen Anatomical Collection Method Collection Time Receive d Time (Source) Location / / Volume Laterality Blood specimen 07/29/2015 1:27 PM 016 1:27 (specimen) EST PM EST Elicia Caal MD POINT OF CARE TEST ORDERABLE S Performing Organization Address City/[facility]/ZIP Code Phon e Number [address] CERNER MILLENNIUM Surgical Pathology Report (07/29/2015 12:34 PM EST) Component Value Ref Test Analysis Performed At [facility] Range Method Time [facility] Surgical [id number] ? Location: 4WST; 0409; A [facility] Report The signing pathologist has (i) examined [...] MD PATHOLOGY/CYTOLOGY ORDERABLE S Performing Organization Address City/[facility]/ZIP Code Phon e Number [address] CERNER MILLENNIUM Specimen to [...] MD PATHOLOGY/CYTOLOGY ORDERABLE S Performing Organization Address City/[facility]/ZIP Code Phon e Number [address] CERNER MILLENNIUM POCT Glucose (07/29/2015 11:40 AM EST) athologist Signature POC Glucose 128 65 - 199 CERNER mg/dL [facility] Comment: Supplemental ranges: <140 mg/dL before meals <180 mg/dL all other times of the day Specimen Anatomical Collection Method Collection Time Receive d Time (Source) Location / / Volume Laterality Blood specimen 07/29/2015 11:40 6 (specimen) AM EST 11:40 AM EST Elicia Caal MD POINT OF CARE TEST ORDERABLE S Performing Organization Address City/[facility]/ZIP Code Phon e Number [address] CERNER MILLENNIUM (ABNORMAL) POCT Glucose (07/29/2015 7:45 AM EST) athologist Signature POC Glucose 210 (H) 65 [...] Organization Address City/State/[place] [address] CERNER MILLENNIUM Duplex Study Renal Arteries, Bilat (07/29/2015 6:46 AM EST) Component Value Ref Test Analysis Performed At [facility] gist Range Method Time Signature VB Text Department: Vascular Surgery Lab VASCUBASE Report Patient: [id number] (CHAN HURST) CPT: 46841 ICD10: I70.1 Referring Physician: ELICIA CAAL ?? Phone: Indications: 64 year old female with acute kidney injury, ? 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 PSV (cm/s): 100 ? EDV (cm/s): 12 ? RI: 0.89 Renal Artery Proximal, Right ? PSV (cm/s): 123 ? EDV (cm/s): 25 ? RAR-AK: 1.2 ? RI: 0.80 Renal Artery Mid, Right ? PSV (cm/s): 155 ? EDV (cm/s): 27 ? RAR-AK: 1.6 ? RI: 0.82 Renal Artery Distal, Right ? PSV (cm/s): 116 ? EDV (cm/s): 19 ? RAR-AK: 1.2 ? RI: 0.84 Mid Pole Renal [...] (cm/s): 239 ? EDV (cm/s): 32 ? RAR-AK: 2.4 ? RI: 0.87 Renal Artery Mid, Left ? PSV (cm/s): 147 ? EDV (cm/s): 24 ? RAR-AK: 1.5 ? RI: 0.84 Renal Artery Distal, Left ? PSV (cm/s): 90 ? EDV (cm/s): 18 ? RAR-AK: 0.9 ? RI: 0.80 Mid Pole Renal [...] Caal MD CHEMISTRY ORDERABLES Performing Organization Address City/[facility]/[place] [address] CERNER MILLENNIUM (ABNORMAL) Differential, [...] Organization Address City/State/ZIP Code Phon e Number [place] [id number] CERNER MILLENNIUM (ABNORMAL) Hemogram [...] Organization Address City/State/ZIP Code Phon e Number [place] [phone] CERNER MILLENNIUM (ABNORMAL) Basic [...] intervals supplied above were not validated at [facility]. Results from pediatri c patients should be [...] the following links into your internet browser. [email or web address] Specimen Anatomical Collection Method Collection Time Receive d Time (Source) Location / / Volume Laterality Blood specimen 07/29/2015 2:13 AM 016 2:25 (specimen) EST AM EST Resulting Agency Comment Spec In Lab Elicia Caal MD CHEMISTRY ORDERABLES Performing Organization Address City/State/ZIP Code Phon e Number [address] CERNER MILLENNIUM (ABNORMAL) POCT [...] CARE TEST ORDERABLE S Performing Organization Address City/[facility]/ZIP Code Phon e Number [address] CERNER MILLENNIUM (ABNORMAL) POCT [...] Organization Address City/State/ZIP Code Phon e Number [address] CERNER MILLENNIUM (ABNORMAL) POCT [...] CARE TEST ORDERABLE S Performing Organization Address City/[facility]/ZIP Code Phon e Number [address] CERNER MILLENNIUM POCT Glucose (07/28/2015 7:46 AM EST) athologist Signature POC Glucose 167 65 - 199 CERNER mg/dL [facility] Comment: Supplemental ranges: <140 mg/dL before meals <180 mg/dL all other times of the day Specimen Anatomical Collection Method Collection Time Receive d Time (Source) Location / / Volume Laterality Blood specimen 07/28/2015 7:46 AM 016 7:46 (specimen) EST AM EST Elicia Caal MD POINT OF CARE TEST ORDERABLE S Performing Organization Address City/[facility]/ZIP Code Phon e Number [address] CERNER MILLENNIUM TSH (07/28/2015 7:37 AM EST) athologist Signature TSH 0.98 0.27 - 4.20 CERNER mcIU/mL [facility] Specimen Anatomical Collection Method Collection Time Receive d Time (Source) Location / / Volume Laterality Blood specimen 07/28/2015 7:37 AM 016 7:44 (specimen) EST AM EST Resulting Agency Comment Spec In Lab Elicia Caal MD CHEMISTRY ORDERABLES Performing Organization Address City/[facility]/ZIP [facility] Phon e Number [address] CERNER MILLENNIUM (ABNORMAL) Prealbumin (07/28/2015 7:37 AM EST) athologist Signature Prealbumin 10 (L) 20 - 40 CERNER mg/dL MILLENNIUM Comment: Prealbumin levels are generally lower in the pediatric population; adult concentrations are usually attained near puberty. Specimen Anatomical Collection Method Collection Time Receive d Time (Source) Location / / Volume Laterality Blood specimen 07/28/2015 7:37 AM 016 7:44 (specimen) EST AM EST Resulting Agency Comment Spec In Lab Elicia Caal MD CHEMISTRY ORDERABLES Performing Organization Address City/[facility]/[place] [address] CERNER MILLENNIUM (ABNORMAL) Hepatic Function [...] Caal MD CHEMISTRY ORDERABLES Performing Organization Address City/[facility]/[place] [address] CERNER MILLENNIUM Electrolytes, urine, random (07/28/2015 7:31 AM EST) P athologist Signature U Sodium 61 mmol/L CERNER MILLENNIUM U Potassium 22 mmol/L CERNER MILLENNIUM U Chloride 56 mmol/L CERNER MILLENNIUM Specimen Anatomical Collection Method Collection Time Receive d Time (Source) Location / / Volume Laterality Urine specimen 07/28/2015 7:31 AM 016 8:21 (specimen) EST AM EST Resulting Agency Comment Spec In Lab Elicia Caal MD URINE ORDERABLES Performing Organization Address City/[facility]/ZIP Code Phon e Number [place] [address] CERNER MILLENNIUM Creatinine, urine, [...] Address City/State/ZIP Code Phon e Number [place] [address] CERNER MILLENNIUM (ABNORMAL) Differential, Automated (07/28/2015 4:30 AM EST) Patholo gist Method Time Signature Neutrophils % 77.4 [...] Caal MD HEMATOLOGY ORDERABLES Performing Organization Address City/[facility]/ZIP Code Phon e Number [address] CERNER MILLENNIUM (ABNORMAL) Hemogram [...] Organization Address City/State/ZIP Code Phon e Number [address] CERNER MILLENNIUM (ABNORMAL) Basic [...] intervals supplied above were not validated at [facility]. Results from pediatri c patients should be [...] the following links into your internet browser. [email or web address] Specimen Anatomical Collection Method Collection Time Receive d Time (Source) Location / / Volume Laterality Blood specimen 07/28/2015 4:30 AM 016 4:40 (specimen) EST AM EST Resulting Agency Comment Spec In Lab Elicia Caal MD CHEMISTRY ORDERABLES Performing Organization Address City/State/[place] [address] CERNER MILLENNIUM POCT Glucose (07/27/2015 9:18 PM EST) athologist Signature POC Glucose 185 65 - 199 CERNER mg/dL [facility] Comment: Supplemental ranges: <140 mg/dL before meals <180 mg/dL all other times of the day Specimen Anatomical Collection Method Collection Time Receive d Time (Source) Location / / Volume Laterality Blood specimen 07/27/2015 9:18 PM 016 9:18 (specimen) EST PM EST Elicia Caal MD POINT OF CARE TEST ORDERABLE S Performing Organization Address City/[facility]/ZIP Code Phon e Number [address] CERNER MILLENNIUM POCT Glucose (07/27/2015 5:58 PM EST) athologist Signature POC Glucose 172 65 - 199 CERNER mg/dL [facility] Comment: Supplemental ranges: <140 mg/dL before meals <180 mg/dL all other times of the day Specimen Anatomical Collection Method Collection Time Receive d Time (Source) Location / / Volume Laterality Blood specimen 07/27/2015 5:58 PM 016 5:58 (specimen) EST PM EST Elicia aCal MD POINT OF CARE TEST ORDERABLE S Performing Organization Address City/[facility]/ZIP Code Phon e Number [address] CERNER MILLENNIUM CK (07/27/2015 5:10 PM EST) athologist Signature CK, Total 98 0 - 160 CERNER unit/L [facility] Specimen Anatomical Collection Method Collection Time Receive d Time (Source) Location / / Volume Laterality Blood specimen 07/27/2015 5:10 PM 016 5:29 (specimen) EST PM EST Resulting Agency Comment Spec In Lab Elicia Caal MD CHEMISTRY ORDERABLES Performing Organization Address City/[facility]/ZIP Code Phon e Number [address] CERNER MILLENNIUM POCT Glucose [...] Organization Address City/State/ZIP Code Phon e Number [address] CERNER MILLENNIUM POCT Glucose [...] Organization Address City/State/ZIP Code Phon e Number [address] CERNER MILLENNIUM (ABNORMAL) POCT [...] Organization Address City/State/ZIP Code Phon e Number [address] CERNER MILLENNIUM (ABNORMAL) Differential, Automated (07/27/2015 5:12 AM EST) Patholo gist Method Time Signature Neutrophils % 86.7 [...] Organization Address City/State/[place] [address] CERNER MILLENNIUM (ABNORMAL) Hemogram [...] Organization Address City/State/[place] [address] CERNER MILLENNIUM (ABNORMAL) Basic [...] intervals supplied above were not validated at [facility]. Results from pediatri c patients should be [...] the following links into your internet browser. [email or web address] Specimen Anatomical Collection Method Collection Time Receive d Time (Source) Location / / Volume Laterality Blood specimen 07/27/2015 5:12 AM 016 5:22 (specimen) EST AM EST Resulting Agency Comment Spec In Lab Elicia Caal MD CHEMISTRY ORDERABLES Performing Organization Address City/State/ZIP Code Phon e Number [place] [id number] CERNER MILLENNIUM Vancomycin, trough (07/26/2015 10:01 PM EST) [...] Caal MD CHEMISTRY ORDERABLES Performing Organization Address City/[facility]/ZIP Code Phon e Number [address] CERNER MILLENNIUM Antibody screen (07/26/2015 4:25 PM EST) [facility] gist Method Time Signature Ab Screen Negative CERNER Interp MILLENNIUM Expires at 07/29/2015 CERNER [id number] on: MILLENNIUM Specimen Anatomical Collection Method Collection Time Receive d Time (Source) Location / / Volume Laterality Blood specimen 07/26/2015 4:25 PM 016 4:25 (specimen) EST PM EST Resulting Agency Comment Spec In Lab Elicia Caal MD BLOOD BANK ORDERABLES Performing Organization Address City/[facility]/ZIP Code Phon e Number [address] [facility] MILL[facility]UM ABO/Rh Typing (07/26/2015 4:25 PM EST) athologist [facility] ABORh Type A Neg CERNER [facility] Specimen Anatomical Collection Method Collection Time Receive d Time (Source) Location / / Volume Laterality Blood specimen 07/26/2015 4:25 PM 016 4:25 (specimen) EST PM EST Resulting Agency Comment Spec In Lab Elicia Caal MD BLOOD BANK ORDERABLES Performing Organization Address City/[facility]/ZIP [facility] Phon e Number [address] [facility] MILLENNIUM (ABNORMAL) Basic Metabolic Panel (non-fasting) (07/26/2015 4:15 PM EST) athologist Signature Glucose Lvl 176 65 - 199 CERNER mg/dL MILLENNIUM Comment: Diabetes: >=200 mg/dL plus symp toms BUN 17 8 - 18 mg/dL CERNER MILLENNIUM Creatinine 1.67 (H) 0.70 - 1.20 mg/dL CERNER MILL ENNIUM Comment: Please note that the pediatric reference intervals supplied above were not validated at [facility]. Results from pediatri c patients should be [...] the following links into your internet browser. [email or web address] Specimen Anatomical Collection Method Collection Time Receive d Time (Source) Location / / Volume Laterality Blood specimen 07/26/2015 4:15 PM 016 4:27 (specimen) EST PM EST Resulting Agency Comment Spec In Lab Elicia Caal MD CHEMISTRY ORDERABLES Performing Organization Address City/State/[place] [address] CERNER MILLENNIUM POCT Glucose [...] CARE TEST ORDERABLE S Performing Organization Address City/[facility]/[place] [address] CERNER MILLENNIUM POCT Glucose (07/26/2015 11:49 AM EST) P athologist Signature POC Glucose 166 65 - [...] CARE TEST ORDERABLE S Performing Organization Address City/[facility]/[place] [address] CERNER MILLENNIUM POCT Glucose (07/26/2015 7:57 AM EST) P athologist Signature POC Glucose 178 65 - [...] CARE TEST ORDERABLE S Performing Organization Address City/[facility]/[place] [address] CERNER MILLENNIUM (ABNORMAL) Differential, Automated (07/26/2015 1:40 AM EST) [facility] gist Method Time Signature Neutrophils % [...] Organization Address City/State/[place] [address] CERNER MILLENNIUM (ABNORMAL) Hemogram [...] Organization Address City/State/ZIP Code Phon e Number [place] [phone] CERNER MILLENNIUM (ABNORMAL) Basic [...] intervals supplied above were not validated at [facility]. Results from pediatri c patients should be [...] KINGSLEY NIUM Estimated GFR 36 (L) >=60 DANIEL Ryan Comment: This estimated [...] the following links into your internet browser. [email or web address] Specimen Anatomical Collection Method Collection Time Receive d Time (Source) Location / / Volume Laterality Blood specimen 07/26/2015 1:40 AM 016 1:44 (specimen) EST AM EST Resulting Agency Comment Spec In Lab Elicia Caal MD CHEMISTRY ORDERABLES Performing Organization Address [facility] Phon e Number [address] CERNER MILLENNIUM Vancomycin, trough [...] Caal MD CHEMISTRY ORDERABLES Performing Organization Address [facility] Phon e Number [address] CERNER MILLENNIUM POCT Glucose (07/25/2015 7:51 PM EST) athologist Signature POC Glucose 157 65 - [...] Organization Address City/State/ZIP Code Phon e Number [address] CERNER MILLENNIUM POCT Glucose [...] CARE TEST ORDERABLE S Performing Organization Address City/[facility]/ZIP Code Phon e Number [address] CERNER MILLENNIUM POCT Glucose [...] Organization Address City/State/ZIP Code Phon e Number [address] CERNER MILLENNIUM (ABNORMAL) Vancomycin, trough (07/25/2015 10:28 AM EST) athologist Signature Vanc Trough 26.8 mg/L CERNER [...] Please be advised that as of 01/18/2015 t maru Vancomycin assay has been re-calibrated and this re-calibration talavera s resulted in an approximate 20% decrease in the reported Vancomycin resu lts. This re-calibration was mandated by the assay dye range operator cloth and was needed to bring the Vancomycin concentrations into better alignment with other Vancomy alan assay. Specimen Anatomical Collection Method Collection Time Receive d Time (Source) Location / / Volume Laterality Blood specimen 07/25/2015 10:28 6 (specimen) AM EST 10:33 AM EST Resulting Agency Comment Spec In Lab Elicia Caal MD CHEMISTRY ORDERABLES Performing Organization Address City/[facility]/ZIP Code Phon e Number [address] CERNER MILLENNIUM POCT Glucose (07/25/2015 8:00 AM EST) athologist Signature POC Glucose 150 65 - 199 CERNER mg/dL [facility] Comment: Supplemental ranges: <140 mg/dL before meals <180 mg/dL all other times of the day Specimen Anatomical Collection Method Collection Time Receive d Time (Source) Location / / Volume Laterality Blood specimen 07/25/2015 8:00 AM 016 8:00 (specimen) EST AM EST Elicia Caal MD POINT OF CARE TEST ORDERABLE S Performing Organization Address City/[facility]/ZIP Code Phon e Number [address] CERNER MILLENNIUM Nucleated Red [...] Organization Address City/State/[place] [address] CERNER MILLENNIUM (ABNORMAL) Differential, Automated (07/25/2015 2:01 AM EST) Patholo gist Method Time Signature Neutrophils % 85.8 % [...] Caal MD HEMATOLOGY ORDERABLES Performing Organization Address City/[facility]/[place] [address] CERNER MILLENNIUM (ABNORMAL) Hemogram (07/25/2015 [...] Organization Address City/State/ZIP Code Phon e Number [address] CERNER MILLENNIUM (ABNORMAL) Basic [...] intervals supplied above were not validated at [facility]. Results from pediatri c patients should be [...] the following links into your internet browser. [email or web address] Specimen Anatomical Collection Method Collection Time Receive d Time (Source) Location / / Volume Laterality Blood specimen 07/25/2015 2:01 AM 016 2:29 (specimen) EST AM EST Resulting Agency Comment Spec In Lab Elicia Caal MD CHEMISTRY ORDERABLES Performing Organization Address City/State/ZIP Code Phon e Number [place] [phone] CERNER MILLENNIUM POCT Glucose [...] Organization Address City/State/[place] [address] CERNER MILLENNIUM (ABNORMAL) BLOOD [...] 3.4 (L) 3.5 - 5.0 mmol/L CERNER CA LLENNIUM Comment: Please note: Patients with WBC >100,000 may have falsely elevated Potassium levels. Contact the Clinical Chemistry L aboratory if there are any questions. ICa Whole Blood 1.31 1.15 - 1.33 mmol/L CERNE R MILLENNIUM Comment: Note: ??Total bilirubin higher than 20 m g/dL may lead to falsely low ionized calcium. CL Whole Blood 101 98 - 107 mmol/L CERNER CA LLENNIUM Gluc Whole Bld 148 65 - 199 mg/dL CERNER MIL LENNIUM Comment: Diabetes: >=200 mg/dL plus symp toms. Specimen Anatomical Collection Method Collection Time Receive d Time (Source) Location / / Volume Laterality Blood specimen 07/24/2015 2:32 PM 016 2:32 (specimen) EST PM EST Elicia Caal MD CHEMISTRY ORDERABLES Performing Organization Address City/State/ZIP Code Phon e Number [place] [id number] CERNER MILLENNIUM (ABNORMAL) BLOOD [...] 3.4 (L) 3.5 - 5.0 mmol/L CERNER CA LLENNIUM Comment: Please note: Patients with WBC >100,000 may have falsely elevated Potassium levels. Contact the Clinical Chemistry L aboratory if there are any questions. ICa Whole Blood 1.09 (L) 1.15 - 1.33 mmol/L CERNE R MILLENNIUM Comment: Note: ??Total bilirubin higher than 20 m g/dL may lead to falsely low ionized calcium. CL Whole Blood 101 98 - 107 mmol/L CERNER CA LLENNIUM Gluc Whole Bld 148 65 - 199 mg/dL CERNER MIL LENNIUM Comment: Diabetes: >=200 mg/dL plus symp toms. Specimen Anatomical Collection Method Collection Time Receive d Time (Source) Location / / Volume Laterality Blood specimen 07/24/2015 1:41 PM 016 1:41 (specimen) EST PM EST Elicia Caal MD CHEMISTRY ORDERABLES Performing Organization Address City/State/ZIP Code Phon e Number [place] [id number] CERNER MILLENNIUM (ABNORMAL) BLOOD [...] 3.4 (L) 3.5 - 5.0 mmol/L CERNER CA LLENNIUM Comment: Please note: Patients with WBC >100,000 may have falsely elevated Potassium levels. Contact the Clinical Chemistry L aboratory if there are any questions. ICa Whole Blood 1.10 (L) 1.15 - 1.33 mmol/L CERNE R MILLENNIUM Comment: Note: ??Total bilirubin higher than 20 m g/dL may lead to falsely low ionized calcium. CL Whole Blood 102 98 - 107 mmol/L CERNER CA LLENNIUM Gluc Whole Bld 144 65 - 199 mg/dL CERNER MIL LENNIUM Comment: Diabetes: >=200 mg/dL plus symp toms. Specimen Anatomical Collection Method Collection Time Receive d Time (Source) Location / / Volume Laterality Blood specimen 07/24/2015 12:55 6 (specimen) PM EST 12:55 PM EST Elicia Caal MD CHEMISTRY ORDERABLES Performing Organization Address City/[facility] [place] [address] CERNER MILLENNIUM Anaerobic Culture [...] - GENERAL ORDER STAN Performing Organization Address City/[facility] [place] [address] CERNER MILLENNIUM (ABNORMAL) Body [...] Comment: Gentamicin is not a ppropriate for [place]-therapy. Staphylococcus aureus, mrsa Levofloxacin MICROSCAN METHOD Sen [...] Organization Address City/State/[place] [address] [facility] Surgical Pathology Report (07/24/2015 11:26 AM EST) Component Value Ref Test Analysis Performed At [facility] gist Range Method Time Signature Surgical [id number] ? Location: [facility]; COUNTS INCLUDE 234 BEDS AT [facility]; A [facility] Pathology [facility] Report The signing pathologist has (i) [...] Organization Address City/State/[place] [address] CERPILI MILLENNIUM Specimen to Pathology (surgical or derm) (07/24/2015 11:26 AM EST) Specimen Anatomical Collection Method Collection Time Receive d Time (Source) Location / / Volume Laterality AP Specimen 07/24/2015 11:26 07/24/2015 AM EST 11:26 AM EST Narrative CERNER MILLENNIUM - 07/24/2015 11:26 AM EST Specimen requisition ordered. ??Separate Pathology report to follow Elicia Caal MD PATHOLOGY/CYTOLOGY ORDERABLE S Performing Organization Address City/[facility]/ZIP Code Phon e Number [address] CERNER MILLENNIUM POCT Glucose (07/24/2015 [...] CARE TEST ORDERABLE S Performing Organization Address City/[facility]/ZIP Code Phon e Number [address] CERNER MILLENNIUM Nucleated Red Blood Cells (07/24/2015 5:03 AM EST) athologist [facility] nRBC % Auto 0.0 % CERNER MILLENNIUM nRBC Abs Auto 0.000 0.000 - CERNER 0.012 MILLENNIUM x10(3)/mcL Specimen Anatomical Collection Method Collection Time Receive d Time (Source) Location / / Volume Laterality Blood specimen 07/24/2015 5:03 AM 016 6:40 (specimen) EST AM EST Resulting Agency Comment Spec In Lab Elicia Caal MD HEMATOLOGY ORDERABLES Performing Organization Address City/[facility]/ZIP Code Phon e Number [address] CERNER MILLENNIUM (ABNORMAL) Differential, Automated (07/24/2015 5:03 AM EST) [facility] gist Method Time Signature Neutrophils % 76.4 [...] Organization Address City/State/[place] [address] CERNER MILLENNIUM (ABNORMAL) Hemogram [...] Organization Address City/State/[place] [address] CERNER MILLENNIUM (ABNORMAL) Basic [...] intervals supplied above were not validated at [facility]. Results from pediatri c patients should be [...] the following links into your internet browser. [email or web address] [email or web address] Specimen Anatomical Collection Method Collection Time Receive d Time (Source) Location / / Volume Laterality Blood specimen 07/24/2015 5:03 AM 016 6:40 (specimen) EST AM EST Resulting Agency Comment Spec In Lab Elicia Caal MD CHEMISTRY ORDERABLES Performing Organization Address [facility] Phon e Number [address] [facility] MILLENNIUM POCT Glucose (07/23/2015 9:06 PM EST) P athologist Signature POC Glucose 105 65 - 199 CERNER mg/dL [facility] Comment: Supplemental ranges: <140 mg/dL before meals <180 mg/dL all other times of the day Specimen Anatomical Collection Method Collection Time Receive d Time (Source) Location / / Volume Laterality Blood specimen 07/23/2015 9:06 PM 016 9:06 (specimen) EST PM EST Elicia Caal MD POINT OF CARE TEST ORDERABLE S Performing Organization Address City/[facility]/[place] [address] [facility] MILLENNIUM Antibody screen (07/23/2015 8:50 PM EST) [facility] Method Time Signature Ab Screen [facility] MILLENNIUM Expires at 07/26/2015 DANIEL [id number] on: MILLENNIUM Specimen Anatomical Collection Method Collection Time Receive d Time (Source) Location / / Volume Laterality Blood specimen 07/23/2015 8:50 PM 016 8:56 (specimen) EST PM EST Resulting Agency Comment Spec In Lab Elicia Caal MD BLOOD BANK ORDERABLES Performing Organization Address City/State/ZIP Code Phon e Number [address] CERNER MILLENNIUM ABO/Rh Typing (07/23/2015 8:50 PM EST) P athologist Signature ABORh Type A Neg CERNER MILLENNIUM Specimen Anatomical Collection Method Collection Time Receive d Time (Source) Location / / Volume Laterality Blood specimen 07/23/2015 8:50 PM 016 8:56 (specimen) EST PM EST Resulting Agency Comment Spec In Lab Elicia Caal MD BLOOD BANK ORDERABLES Performing Organization Address City/State/ZIP Code Phon e Number [address] CERNER MILLENNIUM (ABNORMAL) Differential, [...] Caal MD HEMATOLOGY ORDERABLES Performing Organization Address City/[facility]/[place] [address] CERNER MILLENNIUM (ABNORMAL) Hemogram [...] Caal MD HEMATOLOGY ORDERABLES Performing Organization Address City/[facility]/[place] [address] CERNER MILLENNIUM Vancomycin, trough [...] Organization Address City/State/ZIP Code Phon e Number [place] [id number] CERNER MILLENNIUM (ABNORMAL) Basic Metabolic Panel (non-fasting) (07/23/2015 8:50 PM EST) athologist Signature Glucose Lvl 108 65 - 199 CERNER mg/dL MILLENNIUM Comment: Diabetes: >=200 mg/dL plus symp toms BUN 7 (L) 8 - 18 mg/dL CERNER MILLENNIUM Creatinine 0.35 (L) 0.70 - 1.20 mg/dL CERNER MILL ENNIUM Comment: Please note that the pediatric reference intervals supplied above were not validated at [facility]. Results from pediatri c patients should be [...] Calcium 8.2 (L) 8.5 - 10.5 mg/dL DANIEL LAU Estimated GFR >60 >=60 DANIEL Ryan Comment: This estimated GFR [...] the following links into your internet browser. [email or web address] [email or web address] Specimen Anatomical Collection Method Collection Time Receive d Time (Source) Location / / Volume Laterality Blood specimen 07/23/2015 8:50 PM 016 8:57 (specimen) EST PM EST Resulting Agency Comment Spec In Lab Elicia Caal MD CHEMISTRY ORDERABLES Performing Organization Address City/State/[place] [address] DANIEL SIMON documented in this encounter Visit Diagnoses Not on filedocumented in this encounter Admitting Diagnoses Diagnosis Critical lower limb ischemia Unspecified circulatory system disorder documented in this encounter Administered Medications Inactive Administered Medications - up to 3 most recent administrations Medication Order MAR Action Action Date Dose Rate Site gelatin adsorbable Given 07/24/2015 1:04 PM 3 each 19- Surgical Site (GELFOAM) sponge EST ONCE PRN, Starting on 07/24/15 at 1304, Until 07/24/15 at 1907, Intra-Operative (Intra-Procedure) heparin (porcine) injection Given 07/24/2015 1:02 PM 2,500 Units 19- Surgi ray Site ONCE PRN, Starting on Sun EST 07/24/15 at 1302, Until 07/24/15 at 1907, Intra-Operative (Intra-Procedure), Routine thrombin (bovine) Given 07/24/2015 1:03 PM 5,000 Units 19- Surgical Site (THROMBIN-JMI) solution EST ONCE PRN, Starting on 07/24/15 at 1303, Until 07/24/15 at 1907, Intra-Operative (Intra-Procedure) documented in this encounter Active and [...] (CANCELED) 1620 (Given - Provider: Bree Hermosillo, RN) 355 mg (rounded from 354 mg [...] Ashleigh Childers RN)2056 (Given - Provider: Calvin Oropeza, JOSEPH) 0837 (Given - Provider: Bree Hermosillo, JOSEPH)2014 (Given - Provider: Vijaya Sweeney, JOSEPH) 0921 (Given - Provider: Karen Alfonso, JOSEPH) 600 mg, Oral, 2 TIMES DAILY, First dose on Sat07/30/15 at 1700, Until Discontinued, Routine heparin (porcine) subcutaneous injection 5,000 Units ( CANCELED) 0837 (Given - Provider: Ashleigh Childers RN)2057 (Given - Provider: Calvin Oropeza, JOSEPH) 0839 (Given - Provider: Bree Hermosillo, JOSEPH)2019 (Given - Provider: Vijaya Sweeney, JOSEPH) 0921 (Given - Provider: Karen nichole RN) 5,000 Units, Subcutaneous, EVERY 12 HOUR S SCHEDULED (2 times per day), First dose on Sat07/30/15 at 1345, Until Discontinued, Routine insulin aspart (NovoLOG) VIAL injection 1-4 Units 0818 (Given - Provider: Ashleigh Childers RN)1253 (Given - Provider: Ashleigh Childers, RN)1650 (Given - Provider: Ashleigh Childers, RN)2000 (Not Given - Provider: Calvin Oropeza, JOSEPH - Reason: Order parameters not met - Comment: Gave no 0011 (Given - Provider: Calvin Oropeza, RN)0333 (Given - Provider: Calvin Oropeza, RN)0837 (Given - Provider: Bree Hermosillo, JOSEPH)1205 (Given - Provider: Bree Hermosillo, RN)1640 (Given - Provider: Bree Hermosillo, RN) 0051 (Given - Provider: Vijaya mckeon, JOSEPH)0338 (Given - Provider: Vijaya Sweeney, JOSEPH)0810 (Given - Provider: Karen Alfonso, RN)1124 (Given - Provider: Karen Alfonso, RN) 1-4 Units, Subcutaneous, EVERY 4 HOURS, [...] succinate (TOPROL-XL) XL tablet 25 mg ([facility]) 0837 (Given - Provider: Ashleigh Childers, [...] Loose stools) 0838 (Given - Provider: Bree Hermosillo, JOSEPH)2099 (Not Given - Provider: Vijaya Sweeney RN - Reason: Patient/family refused) 0922 (Not Given - Provider: Karen Alfonso RN - Reason: Order parameters not met) 17 g, Oral, 2 TIMES DAILY, First dose on Yadira 07/28/15 at 0900, Until Discontinued, Routine potassium chloride (K-DUR/KLOR-CON) extended release t ablet 40 mEq (COMPLETED) 06 (Given - Provider: Vijaya Sweeney RN) 40 mEq, Oral, ONCE, 1 dose, 08/01/15 at 0545, 20 mEq tablet may be dissolved in water for administration, Routine sertraline (ZOLOFT) tablet 50 mg (CANCELED) 08 (Give n - Provider: Ashleigh Childers RN) 08 (Given - Provider: Bree Hermosillo RN) 09 (Gi aide - Provider: Karen Alfonso, JOSEPH) 50 mg, Oral, DAILY, First dose on Sun at 0900, Until Discontinued, Routine simvastatin (ZOCOR) tablet 20 mg (CANCELED) 2056 (Give n - Provider: Calvin Oropeza RN) 2014 (Given - Provider: Vijaya Sweeney RN) 20 mg, Oral, NIGHTLY, First dose on 07/23/15 at 2200, Until Discontinued, Routine PRN Medication Order 08/01/2015 08/02/2015 08/03/2015 acetaminophen (TYLENOL) tablet 500 mg (CANCELED) 1546 (Given - Provider: Ashleigh Childers RN) 500 mg, Oral, EVERY 4 HOURS PRN, Startin g 07/23/15 at 2019, Until 08/03/15 at 1634, Pain, Fever, Maximum dose of acetaminophen is 4000 mg from all sources in 24 hours., Routine ondansetron (ZOFRAN) tablet 4 mg (CANCELED) 2237 (Give n - Provider: Calvin Oropeza RN) 0529 (Given - Provider: Calvin Oropeza, RN)2014 (Given - Provider: Vijaya Sweeney, RN) 4 mg, Oral, EVERY 8 HOURS [...] Routine documented in this encounter Care Teams Immigration Paralegal Relationship Specialty Start Date End Date Gordy Moon MD PCP - General Family Medicine 05/19/[address] [place] [address] documented as of this encounter
--- OUTSIDE RECORDS SUMMARY | 2022-01-25 00:59 | XMS_ITS | Encounter Summary ---
:1950 Author Organization [facility] [address] Care Team Providers Name Role Phone Gordy Gregg MD Primary Care Provider [phone] Reason for Visit Reason Comments Wound Check Encounter Details Date Type Department Care Team Description 07/14/2015 Office Visit Vascular Surgery at Hope Virk, Paul itical lower limb [facility] CAFE OPERATOR ischemia [facility] [address] [place] SURGERY [id number] [place], [place] [id number] [phone] Social History Tobacco Use Types Packs/Day Years Used Date Never Smoker Smokeless Tobacco: Never Used Alcohol Use Standard Drinks/Week Comments No 0 (1 standard drink = 0.6 oz pure alcoho l) Sex Assigned at Date Recorded Not on file documented as of this encounter Last Filed Vital Signs Vital Sign Reading Time Taken Comments Blood Pressure 153/90 07/14/2015 3:42 PM EST Pulse 80 07/14/2015 3:42 PM EST Temperature - - Respiratory Rate 18 07/14/2015 3:42 PM EST Oxygen Saturation - - Inhaled Oxygen Concentration - - Weight 46.7 kg (103 lb) 07/14/2015 3:42 PM EST Height 152.4 cm (5') 07/14/2015 3:42 PM EST Body Mass Index 20.12 07/14/2015 3:42 PM EST documented in this encounter Patient Instructions Patient InstructionsStHope holloway, MAGALY - 07/14/2015 4:45 PM EST Continue wound care and VNA. Solosite to calf wound daily. Iososorb dry dressing ankle incision. Watch for infection:. Redness, swelling, increase drainage, warmth to area, odor, fever, or chills RTC 07/27/[address] with [address]O2 and see Dr Doyle. documented in this encounter Progress Notes Hope Virk APRN - 07/14/2015 3:50 PM EST Interval history: F/u wound check Denies fever, chills, SOB, chest pain. VNA with wound care Ns wet to dry dressing to left calf wound. Dry dressing to incisions. C/o nerve pain in foot and rest pain. Taking Neurontin. Oxycodone 10 mgat bed time. C/o rest pain but better then last appointment. VNA worried about ankle incision 05/27/2015: Left common femoral to posterior tibial bypass graft with 6mm non- ringed PTFE and distal vein cuff, Left ileofemoral endarterectomy with bovine pericardial patch angioplasty, Thrombectomy of occluded SENIOR SOFTWARE TEST ENGINEER-peroneal vein bypass graft Prior Vascular History: 03/18/15: Left SFA-peroneal bypass with left GSV and left lateral fibulectomy Patient Active Problem List Diagnosis Code ??? Claudication I73.9 ??? Non-healing ulcer of foot L97.509 ??? DMII (diabetes mellitus, type 2) E11.9 ??? Hypercholesterolemia E78.0 ??? Hypertension I10 ??? PAD (peripheral artery disease) I73.9 ??? HLD (hyperlipidemia) E78.5 Pex: General: NAD, appears well Neuro: Alert and oriented, motor sensory grossly intact Lungs: CTA Heart: RRR Abd: Soft, NT, ND, no palpable pulsatile masses Extremity - [place], , no ulceration, brisk capillary refill, no edema left foot warm dependent rubor, Left mid calf incision wound with granulation tissue filling in. Ankle incision with rubor surround dependent rubor pales with elevation. Sutures intact wtih open area not well approximated. Sero and yel lowish drainage. Vascular: R L Carotid 2/2 bruit (n) 2/2 bruit (n) Radial 2/2 2/2 Femoral 2/2 2/2 Popliteal -/2 -/2 DP -/2 -/2 PT -/2 -/2 SOSA's 06/27/15 Right Pressure (mm Hg) SOSA Waveform TBI Brachial Artery 176 Dorsalis Pedis (Ankle) Artery 87 0.49 Monophasic Posterior Tibial (Ankle) Artery 93 0.53 Monophasic Great Toe 43 0.24 Left Pressure (mm Hg) SOSA Waveform TBI Brachial Artery 170 Dorsalis Pedis (Ankle) Artery 55 0.31 Monophasic Great Toe 11 0.06 Interpretation: RIGHT: Moderate to moderately severe lower extremity arterial occlusive disease. Significant improvement in ABIs and toe-brachial index compared to the previous exam done on 06/01/2015. LEFT: Severe lower extremity arterial occlusive disease. Unable to obtain obtain a Doppler signal with the continuous wave (SOSA) probe - the very distal segment of the posterior tibial artery below the bypass graft and sutures was identified with minimal flow (PSV 4 cm/s) and aphasic Doppler waveforms. There has been significant improvement in the DP SOSA with no significant change in toe-brachial index compared to the previous exam done on 06/01/2015. Duplex 06/01/15 Left PSV (cm/s) EDV Location Inflow Artery 14 0 Common Femoral Artery, Left Inflow Anastomosis Common Femoral Artery, Left Proximal Graft 0 0 Distal Graft 0 0 Outflow Anastomosis Left Posterior Tibial Artery Outflow Artery (Graft) Left Posterior Tibial Artery Interpretation: Left- Fem-COLOR CHECKER bypass graft is occluded. No significant change compared to previous exam 05/19/15. Patient being seen in clinic today : Assessment / Plan: 64 yo female s/p : Left SFA-peroneal bypass with left GSV and left lateral fibulectomy. 05/27/2015: Left common femoral to posterior tibial bypass graft with 6mm non-ringed PTFE and distal vein cuff, Left ileofemoral endarterectomy with bovine pericardial patch angioplasty, T hrombectomy of occluded SENIOR SOFTWARE TEST ENGINEER-peroneal vein bypass graft SOSA's L SOSA 0.31. TBI 0.06 toe pressure 11 Graft Occluded. Known graft occ 06/01/15. Rest pain and neuropathy. She has no further interventions options available. Discussed Anges trial last visit today she reports does not wish to proceed at this time. . Discussed wound care and pain control and amputation. Dr Doyle notified of visit today. Discuss options which have been noted and discussed on several other occasion. Gabapentin 300mg AM and PM and increase to 900 mg at hs. Oxycodone 10 mg at bedtime. Continue wound care and VNA. Solosite to calf wound daily. Iososorb dry dressing ankle incision. Watch for infection:. Redness, swelling, increase drainage, warmth to area, odor, fever, or chills RTC 07/27/[address] with [address] Doyle. documented in this encounter Plan of Treatment Not on filedocumented as of this encounter Visit Diagnoses Diagnosis Critical lower limb ischemia Unspecified circulatory system disorder documented in this encounter Care Teams Independent Contractor Relationship Specialty Start Date End Date Gordy Gregg MD PCP - General Family Medicine 05/19/[address] [place] [address] documented as of this encounter
--- OUTSIDE RECORDS SUMMARY | 2022-01-25 00:59 | XMS_ITS | Encounter Summary ---
:1950 Author Organization [facility] [place] [address] Care Team Providers Name Role Phone Gordy Gregg MD Primary Care Provider [phone] Reason for Visit Reason Comments Wound Check pt here for wound check lle ? suture removal Encounter Details Date Type Department Care Team Description 06/27/2015 Office Visit Vascular Surgery at Mariano Doyle MD [facility] [address] Critical lower limb [facility] Hope Virk APRN [facility] [place] [address] [place] [id number] Social History Tobacco Use Types Packs/Day Years Used Date Never Smoker Smokeless Tobacco: Never Used Alcohol Use Standard Drinks/Week Comments No 0 (1 standard drink = 0.6 oz pure alcoho l) Sex Assigned at Date Recorded Not on file documented as of this encounter Last Filed Vital Signs Vital Sign Reading Time Taken Comments Blood Pressure 157/74 06/27/2015 1:21 PM EST Pulse 71 06/27/2015 1:21 PM EST Temperature - - Respiratory Rate 18 06/27/2015 1:21 PM EST Oxygen Saturation - - Inhaled Oxygen Concentration - - Weight 46.7 kg (103 lb) 06/27/2015 1:21 PM EST Height 152.4 cm (5') 06/27/2015 1:21 PM EST Body Mass Index 20.12 06/27/2015 1:21 PM EST documented in this encounter Patient Instructions Patient InstructionsStHope holloway APRN - 06/27/2015 2:32 PM EST continue wound care documented in this encounter Progress Notes Hope Virk APRN - 06/27/2015 1:24 PM EST Interval history: F/u wound check Denies fever, chills, SOB, chest pain. VNA with wound care Ns wet to dry dressing to left calf wound. Dry dressing to incisions. C/o nerve pain in foot and rest pain. Taking Neurontin. Oxycodone 10 mgat bed time. C/o rest pain but slightly better then last appointment. 05/27/2015: Left common femoral to posterior tibial bypass graft with 6mm non- ringed PTFE and distal vein cuff, Left ileofemoral endarterectomy with bovine pericardial patch angioplasty, Thrombectomy of occluded FAN MAIL EDITOR-peroneal vein bypass graft Prior Vascular History: 03/18/15: [...] ND, no palpable pulsatile masses Extremity - [place], , no ulceration, brisk capillary refill, no edema left foot warm dependent rubor, Left mid calf incision wound with granulation tissue filling in. Ankle incision wit rubor surround dependent rubor pales with elevation. Every other sutures removed. Vascular: R L Carotid 2/2 bruit (n) 2/2 bruit (n) Radial 2/2 2/2 Femoral 2/2 2/2 Popliteal -/2 -/2 DP -/2 -/2 PT -/2 -/2 SOSA's 06/27/15 Right Pressure (mm Hg) SOAS Waveform TBI Brachial Artery 176 Dorsalis Pedis [...] (Graft) Left Posterior Tibial Artery Interpretation: Left- Fem-BARIATRIC PROGRAM COORDINATOR bypass graft is occluded. No significant change [...] pericardial patch angioplasty, T hrombectomy of occluded FAN MAIL EDITOR-peroneal vein bypass graft SOSA's L SOSA 0.31. TBI 0.06 toe pressure 11 Graft Occluded. Known graft occ 06/01/15. Rest pain and neuropathy. She has no further interventions options available. Discussed Anges trial last visit today she reports does not wish to proceed at this time. . Discussed wound care and pain control and amputation. Dr Doyle in to visit and discuss options which have been noted and discussed on several other occasion. She is thinking about her options. Gabapentin 300mg AM and PM and increase to 900 mg at hs. Continue wound care and VNA. Wet to dry dressing calf wound daily. Dry dressing ankle incision. Watch for infection:. Redness, swelling, increase d rainage, warmth to area, odor, fever, or chills RTC 4 weeks documented in this encounter Plan of Treatment Not on filedocumented as of this encounter Visit Diagnoses Diagnosis Critical lower limb ischemia Unspecified circulatory system disorder documented in this encounter Care Teams Dairy Cattle Farm Worker Relationship Specialty Start Date End Date Gordy Gregg MD PCP - General Family Medicine 05/19/[address] [place] [address] documented as of this encounter
--- OUTSIDE RECORDS SUMMARY | 2022-01-25 00:59 | XMS_ITS | Encounter Summary ---
:1950 Author Organization [facility] [place] [address] Care Team Providers Name Role Phone Gordy Gregg MD Primary Care Provider [phone] Reason for Visit Reason Comments Wound Check Encounter Details Date Type Department Care Team Description 06/15/2015 Office Visit [facility] at [facility], Paul itical lower limb [facility]ENT[facility] ischemia [facility] [address] [place], [place] VASCULAR SURGERY [id number] [place] [address] [phone] Social History Tobacco Use Types Packs/Day Years Used Date Never Smoker Smokeless Tobacco: Never Used Alcohol Use Standard Drinks/Week Comments No 0 (1 standard drink = 0.6 oz pure alcoho l) Sex Assigned at Date Recorded Not on file documented as of this encounter Last Filed Vital Signs Vital Sign Reading Time Taken Comments Blood Pressure 130/59 06/15/2015 8:42 AM EST Pulse 85 06/15/2015 8:42 AM EST Temperature - - Respiratory Rate 20 06/15/2015 8:42 AM EST Oxygen Saturation - - Inhaled Oxygen Concentration - - Weight 46.3 kg (102 lb) 06/15/2015 8:42 AM EST Height 152.4 cm (5') 06/15/2015 8:42 AM EST Body Mass Index 19.92 06/15/2015 8:42 AM EST documented in this encounter Patient Instructions Patient InstructionsStHope holloway, MAGALY - 06/15/2015 10:07 AM EST Refill oxycodone. Gabapentin 300mg AM and PM and increase to 900 mg at hs. Continue wound care and VNA. Wet to dry dressing calf wound daily. Dry dressing ankle incision. Watch for infection:. Redness,swelling, increase drainage, warmth to area, odor, fever, or chills RTC 06/27/15 documented in this encounter Progress Notes [facility] APRN - 06/15/2015 8:59 AM EST Interval history: F/u wound check Denies fever, chills, SOB, chest pain. VNA with wound care Ns wet to dry dressing to left calf wound. Dry dressing to incisions. C/o nerve pain in foot and rest pain. 05/27/2015: Left common femoral to posterior tibial bypass graft with 6mm non- ringed PTFE and distal vein cuff, Left ileofemoral endarterectomy with bovine pericardial patch angioplasty, Thrombectomy of occluded PATTERN ASSEMBLER-peroneal vein bypass graft Prior Vascular History: 03/18/15: [...] ND, no palpable pulsatile masses Extremity - Rebecca, , no ulceration, brisk capillary refill, no edema left foot warm dependent rubor, Left mid calf incision wound with granulation tissue. Left groin incision sutures removed. Healing well. incision intact with sutures very minimal drainage. Ad surround dependent rubor pales with elevation. . Vascular: R L Carotid 2/2 bruit (n) 2/2 bruit (n) Radial 2/2 2/2 Femoral 2/2 2/2 Popliteal -/2 -/2 DP -/2 -/2 PT -/2 -/2 SOSA's 11/25/15 Right Pressure (mm Hg) SOSA Waveform TBI Brachial Artery 151 Dorsalis Pedis (Ankle) Artery 31 0.21 Monophasic Posterior Tibial (Ankle) Artery 42 0.28 Monophasic Great Toe 7 0.05 Left Pressure (mm Hg) SOSA Waveform TBI Brachial Artery 150 Dorsalis Pedis (Ankle) Artery 13 0.09 Monophasic Posterior Tibial (Ankle) Artery 28 0.19 Monophasic Great Toe 0 0.00 Interpretation: RIGHT: Severe lower extremity arterial occlusive disease. Significant deterioration compared to previous exam. LEFT: Severe lower extremity arterial occlusive disease. No significant change compared to previous exam. Duplex 06/01/15 Left PSV (cm/s) EDV Location Inflow Artery 14 0 Common Femoral Artery, Left Inflow Anastomosis Common Femoral Artery, Left Proximal Graft 0 0 Distal Graft 0 0 Outflow Anastomosis Left Posterior Tibial Artery Outflow Artery (Graft) Left Posterior Tibial Artery Interpretation: Left- Fem-OPERATING ROOM SCHEDULER bypass graft is occluded. No significant change [...] pericardial patch angioplasty, T hrombectomy of occluded PATTERN ASSEMBLER-peroneal vein bypass graft SOSA's L SOSA 0.19. TBI 0.0 Graft Occluded. Known graft occ 06/01/15. Rest pain and neuropathy. She has no further interventions options available. Discussed Anges trial last visit today she reports does not wish to proceed at this time. . Discussedwound care and pain control and amputation. She is thinking about her options. Refill oxycodone. Gabapentin 300mg AM and PM and increase to 900 mg at hs. Continue wound care and VNA. Wet to dry dressing calf wound daily. Dry dressing ankle incision. Watch for infection:. Redness, swelling, increase drainage, warmth to area, odor, fever, or chills RTC 06/27/15 with studies. documented in this encounter Plan of Treatment Not on filedocumented as of this encounter Visit Diagnoses Diagnosis Critical lower limb ischemia Unspecified circulatory system disorder documented in this encounter Care Teams Caisson Worker Relationship Specialty Start Date End Date Gordy Gregg MD PCP - General Family Medicine 05/19/15 [address] [place] [address] documented as of this encounter
--- OUTSIDE RECORDS SUMMARY | 2022-01-25 00:59 | XMS_ITS | Encounter Summary ---
:1950 Author Organization [facility] Address [address] [facility] [address] [place] [address] Care Team Providers Name Role Phone Gordy Gregg MD Primary Care Provider [phone] Encounter Details Date Type Department Care Team Description 07/18/2015 Telephone Vascular Surgery Chela Blancas MD [facility] [place] [address] VASCULAR SURGERY [phone] [place], [place] [address] (Wo rk) Social History Tobacco Use Types Packs/Day Years Used Date Never Smoker Smokeless Tobacco: Never Used Alcohol Use Standard Drinks/Week Comments No 0 (1 standard drink = 0.6 oz pure alcoho l) Sex Assigned at Date Recorded Not on file documented as of this encounter Miscellaneous Notes Telephone Encounter - Chela Blancas - 07/18/2015 7:09 PM EST Patient's significant other calling vinh bc VNA reportedly concerned about wound. He has not seenwound himself in 1-2 days, but does not feel there is extending erythema. Pt has not had fevers/chills. She thinks the wound is more malodorous than previously. They would like to take pictures of the wound and email them for evaluation. He would also like to know if applying heat will help wound heal, or if a whirlpool tub will help. Advised against heat and whirlpool. Offered ED visit vinh if very concerned -- which they are not. Advised for warning signs of infection. Did not offer cell phone or email for pictures to be sent. Advised they call clinic tomorrow if they would like apt for wound eval. documented in this encounter Plan of Treatment Not on filedocumented as of this encounter Visit Diagnoses Not on filedocumented in this encounter Care Teams Senior Project Architect Relationship Specialty Start Date End Date Gordy Gregg MD PCP - General Family Medicine 05/19/[address] [place] [address] [address] [place] [address] documented as of this encounter
--- OUTSIDE RECORDS SUMMARY | 2022-01-25 00:59 | XMS_ITS | Encounter Summary ---
:1950 Author Organization [facility] Address [facility] [place] [address] Care Team Providers Name Role Phone Gordy Gregg MD Primary Care Provider Encounter Details Date Type Department Care Team Description 07/21/2015 Telephone Vascular Surgery Sheryl Pritchard MD [facility] [place] [address] VASCULAR SURGERY [phone] [place], [place] [address] (Wo rk) Social History Tobacco Use Types Packs/Day Years Used Date Never Smoker Smokeless Tobacco: Never Used Alcohol Use Standard Drinks/Week Comments No 0 (1 standard drink = 0.6 oz pure alcoho l) Sex Assigned at Date Recorded Not on file documented as of this encounter Miscellaneous Notes Telephone Encounter - Sheryl Pritchard - 07/21/2015 12:20 AM EST Received call via transfer ctr from [facility] ED. Mrs. Hurst is there with pain in leg, lactate of 2.5, leukocytosis and essentially meeting SIRS criteria. 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 MD requesting transfer here for care. In review of chart, pt with two failed bypass grafts and no revasc option. Appears to require amputation. Per MD there, pt and family are aware of this and are requesting amputation. Then while on the phone, hears from family that they don't want to come to [facility] for treatment. We offered to take and treat as able. MD said that they would admit and have their surgeon look at patient and group tester on ability to perform amputation. If not, they would call in am and then arrange transfer. I urged to treat with iv abx, vanco and zosyn, and that we would be happy to accept and treat patient. Sheryl Pritchard MD, MS Fellow, Vascular Surgery documented in this encounter Plan of Treatment Not on filedocumented as of this encounter Visit Diagnoses Not on filedocumented in this encounter Care Teams Plastic Sewer Relationship Specialty Start Date End Date Gordy Gregg MD PCP - General Family Medicine 05/19/[address] [place] [address] documented as of this encounter
--- OUTSIDE RECORDS SUMMARY | 2022-01-25 00:59 | XMS_ITS | Encounter Summary ---
:1950 Author Organization [facility] [place] [address] Care Team Providers Name Role Phone Gordy Moon MD Primary Care Provider [phone] Reason for Visit Auth/Cert - Closed Specialty Diagnoses / Procedures Referred By Contact Refer red To Contact Diagnoses SFA to peroneal bypass occluded graft Procedures PRO VEIN IN SITU BYPASS GRAFT, FEM-TIB PRO VEIN BYPASS GRAFT, FEM-TIBIAL @BYPASS GRAFT, FEM.-ANT. TIB, POST. TIB, PERONEAL, DP W\ VEIN CONDUIT ([place] [address]) Referral ID Status Reason Start Date Expiration Date Visits Requ ested Visits Authorized [id number] Closed 1 1 Encounter Details Date Type Department Care Team Description 05/26/2015 - Hospital Encounter 4 Glen Hayes Critic al lower limb ischemia; 05/29/2015 Navid Callahan MD PAD (peripheral artery disease); [facility] MEDICAL Claudication [facility] [address] Campos VASCULAR [place], [place] SURGERY [address] [place], [place] [phone] [facility] Social History Tobacco Use Types Packs/Day Years Used Date Never Smoker Smokeless Tobacco: Never Used Alcohol Use Standard Drinks/Week Comments No 0 (1 standard drink = 0.6 oz pure alcoho l) Sex Assigned at Date Recorded Not on file documented as of this encounter Last Filed Vital Signs Vital Sign Reading Time Taken Comments Blood Pressure 116/65 05/29/2015 11:30 AM EST Pulse 86 05/29/2015 11:30 AM EST Temperature 36.6 ??C (97.9 ??F) 05/29/2015 11:30 AM EST Respiratory Rate 18 05/29/2015 11:30 AM EST Oxygen Saturation 97% 05/29/2015 11:30 AM EST Inhaled Oxygen Concentration - - Weight 50 kg (110 lb 3.7 oz) 05/28/2015 7:08 AM EST Height 152.4 cm (5') 05/26/2015 8:37 AM EST Body Mass Index 21.53 05/26/2015 8:37 AM EST documented in this encounter Discharge Summaries Joanna Dee MD - 05/27/2015 1:17 PM EST Inpatient - Discharge Summary Patient Name: Chan Perry Patient Age: 64 y.o. Birthdate: 1950 Admit date: 05/26/2015 Discharge date and time: 05/29/2015 Attending Physician: Glen Doyle MD Discharge Diagnoses (Hospital Problems) and Secondary Diagnoses (Chronic Problems): Active Hospital Problems Diagnosis ??? Claudication ??? PAD (peripheral artery disease) 05/26/2015: Left femoral endarterectomy and LLE fem-PT arterial bypass ??? Non-healing ulcer of foot Previous wound to left foot between 4th & 5th toe, currently resolved, 03/2015 Resolved Hospital Problems Diagnosis Date Resolved No resolved problems to display. Active Non-Hospital Problems Diagnosis ??? HLD (hyperlipidemia) ??? DMII (diabetes mellitus, type 2) ??? Hypercholesterolemia ??? Hypertension Operations/Major Procedures: 05/27/2015: Left common femoral to posterior tibial bypass graft with 6mm non-ringed PTFE and distal vein cuff, Left ileofemoral endarterectomy with bovine pericardial patch angioplasty, Thrombectomy of occluded RN TELEMETRY-peroneal vein bypass graft. History of Presentation: 64 /o F with HTN HL DMII PAD sp left SFA to distal peroneal bypass on 03/18/15 for CLI (rest pain, non healing ulcer between D4/D5). Her toe ulcer has healed since the bypass however for the past one month she has suffered with stiff/cold right toes with left foot pain at rest.This is the same type of rest pain that prompted the bypass. She was seen in clinic on 05/19/15 at which time duplex illustrated no flow through the graft consistent with an occluded graft. The pt presents today for diagnostic angiogram of the left lower extremity and possible revascularization. She denies any chest pain or shortness of breath at baseline. Maintained on ASA/statin/coumadin. Last tookcoumadin on 05/21. INR today 1.5. Had infected incision line post-op; somewhat healed but with 2 cm eschar at incision mid calf. Hospital Course: In surgery, subacute thrombosed plaque in RN TELEMETRY as likely underlying etiology for bypass graft failure. Above procedures performed without incidence. Distal target (PT) was 1.5mm with little/no backbleeding. At case completion pt had monophasic PT and DP (retrograde filling) signals. She continued to have some pain in her heel which improved when using offloading shoe for ambulation. She has ambulated well with PT, is tolerating a regular diet, and voiding adequately. Her pain is wellcontrolled and her incisions are c/d/i. She will have close follow-up with the Vascular Surgery clinic, and will go home with VNA for Lovenox shots and INR checks, as well as for wound care. Physical Exam: Gen: NAD, alert and oriented CV: RRR Pulm: Clear bilaterally Abd: Soft, NT, ND Ext: LLE warm. Calf wound on medial aspect (from prior bypass) has small 2cm portion that is open with granulation tissue, no signs of infx repacked wet-to-dry. New groin and ankle wound is dry and intact, no erythema or drainage. Dressing changed on day of discharge. Doppler PT/DP. Important Studies and Lab Data: [facility] Lab Results Component Value Date INR 1.5* 05/29/2015 PT 18.2* 05/29/2015 PTT 79* 05/29/2015 Studies: None Discharge Conditions/Prognosis: Good Discharge to: Home with VNA Discharge Medications: Your Medications New Medications Dose Details enoxaparin 60 mg/0.6 mL Syrg Commonly known as: LOVENOX Inject 0.75 mLs subcutaneously daily. Use only until INR is between 2-3. 1.5 mg/kg/dose Quantity: 3.75 mL Refills: 0 gabapentin 300 mg Cap Commonly known as: NEURONTIN Take 1 capsule by mouth 3 times daily. 300 mg Quantity: 90 capsule Refills: 12 oxyCODONE 5 mg Tab Commonly known as: ROXICODONE Take 1 tablet by mouth every 4 hours as needed for Pain. 5 mg Quantity: 30 tablet Refills: 0 Continued medications, unchanged Dose Details acetaminophen 325 mg Tab Commonly known as: TYLENOL Take 325 mg by mouth every 4 hours as needed for Pain. 325 mg Refills: 0 aspirin 81 mg Tbec Take 1 tablet by mouth daily. 81 mg Quantity: 30 tablet Refills: 3 lisinopril 5 mg Tab Commonly known as: PRINIVIL;ZESTRIL Take 5 mg by mouth daily. 5 mg Refills: 0 metFORMIN 500 mg Tab Commonly known as: GLUCOPHAGE Take 1,000 mg by mouth 2 times daily (with meals). Takes 2 bid 1000 mg Refills: 0 meTOPROLOL succinate 25 mg Tablet sr Commonly [...] by mouth nightly. 20 mg Refills: 0 * warfarin 3 mg Tab Commonly known as: COUMADIN Take 1 tablet by mouth daily. 3 mg Quantity: 30 tablet Refills: 11 * warfarin 1 mg Tab Commonly known as: COUMADIN Take 1 tablet by mouth as needed (as needed for coumadin dose adjustments). 1 mg Quantity: 15 tablet Refills: 11 * Notice: This list has 2 medication(s) that are the same as other medications prescribed for you. Read the directions carefully, and ask your doctor or other care provider to review them with you. STOPPED Medications HYDROcodone-acetaminophen 5-325 mg Tab Commonly known as: NORCO Updated Allergies/ADRs: No Known Allergies Follow-up Recommendations for Providers: 1. Continue following for Coumadin dosing, goal INR 2-3. 2. Wound care as per VNA instructions, below. 3. Close follow up with Vascular Surgery clinic, with ABIs in 2 weeks. Instructions Given to Patient at Discharge: Patient Instructions Patient Instructions You were admitted on 05/25/2015 after having a left femoral endarterectomy and arterial bypass to get more blood flow to your leg. All of this went very well. Dr. Doyle will want to see you in approximately 2 weeks with ABIs and a duplex of your bypass. All of this will be ordered and sent to you in the mail. If for some reason you don't receive this within a week or so please call our office as yourfollowup is very important. Anticoagulation: on coumadin. Goal INR 2-3. At discharge INR=1.5 Call your doctor if: Any fever, any drainage, redness or separation of your incision, increased painor change in temperature of your leg Activity level: up as tolerated but watch for swelling of your leg. Manage this with leg elevation, toes higher than your nose and also can use marlyn wrapping from your foot to below knee, tape in place,rewrap as necessary. Diet: resume your previous regular diet Driving: none right now with pain medication use Shower/Bath: showering is fine Wound Care: ok to shower and wash all incisions under running water, pat dry. For any problems or questions please call [phone] SAMIA Lopez, senior sales operations manager Nurse Clinician For issues on weeknights after 5pm and weekends please call [phone] and ask for the Vascular Fellow aeronautical engineering officer. General Instructions None Future Appointments and Orders Future Appointments Provider Department Dept Phone 06/27/2015 12:30 PM Papo Delgado, RVT Vascular Lab [phone] 06/27/2015 2:00 PM Hope Virk, ROD STRAIGHTENER Vascular Surgery [phone] Future Orders Complete By Expires SOSA, legs, multiple levels [VAS8 Custom] 06/26/2015 (Approximate) 05/27/2016 Process Instructions: Scheduling Instructions: Please schedule with one month clinic f/u and duplex Questions: Indication for study/signs & symptoms: s/p LLE fem endart and fem-PT bypass Question to be answered: bloodflow to feet Should this service/procedure be billed to the research sponsor?: Which location will this be performed?: [place] Unilat Bypass Graft Assess [VAS12 Custom] 06/26/2015 (Approximate) 05/27/2016 Process Instructions: Scheduling Instructions: Please schedule with one month clinic f/u and SOSA's Questions: Laterality: Left Which extremity?: Lower Indication for study/signs & symptoms: s/p left fem endart and left fem-PT bypass Question to be answered: patency Should this service/procedure be billed to the research sponsor?: Which location will this be performed?: [place] Referral to Home Health - at DISCHARGE [GLQ6811 CPT(R)] As directed Process Instructions: Scheduling Instructions: Comments: DISCHARGE DOCUMENTATION FOR VNA SERVICES (INCLUDING THOSE PATIENTS WITH MEDICARE COVERAGE BEING DISCHARGED HOME WITH VNA SERVICES AND THOSE PATIENTS WITH MEDICARE COVERAGE WHO ARE BEING DISCHARGED HOME WITH HOSPICE SERVICES) In discussion with the attending physician, it is certified that this patient is under their care and that they, or a nurse practitioner, clinical nurse specialist or physician's fws faculty assistant who is working directly with them, had a face to face encounter that meets the physician face to face encounter re quirements with this patient on 05/27/2015 The encounter with the patient was in whole, or in part, for the following medical condition, which is the primary reason for home health care services: [ Critical limb ischemia left leg. OR on 05/26/15 left leg vascular bypass. ] In discussion with the primary medical team, it is certified that, based on their findings, the indicated services are medically necessary and appropriate for home health services. Please note that any additional orders needs or changes will need to be obtained from this patient'sPCP: GORDY MOON MD [address] [place] [id number] All VNA agencies which cover the area of patient's residence have been reviewed, either verbally or in writing, and patient/family have chosen the indicated home health care agency for home services. [facility] PHONE: [phone] FAX: [phone] RN visits to begin on day after patient's discharge to home, if possible. RN visits 3-4times for post-operative assessment, checking for signs and symptoms of infection. Assess nutrition and hydration/abdomen/stooling pattern. Assess circulatory status. Cardio-pulmonary assessment. Medication review. Please check INRs daily starting Saturday05/31/15. Her therapeutic goal range is 2-3. She can continue her home regimen of coumadin and once she is therapeutic it is ok to stop administering Lovenox shots and return to regularly scheduled INR checks. Please assess left groin incision and monitor for s/sx of infection. Please call with any redness, drainage or separation of incision edges. Pt can shower, allowing soap and warm water to cleanse incision, pat dry. Please keep incision clean/dry, tuck/tape gauze into groin fold to cover incision. Leg can be wrapped with marlyn bandages with graduated compression from toes to groin for leg swelling. Left lower leg wound should be dressed in two places. There is a 3cm x 2cm open wound over the medial aspect of her left calf. This is packed wet-to-dry. Her surgical incision is over her left medial ankle. This should be dressed with dry gauze and paper tape. The entire lower leg can then be wrapped with an marlyn wrap, enough to provide compression but not too tight such that she looses sensation to her feet. This dressing change will occur once daily. She may offload pain in her heel by wearing offloading shoe when ambulating. Assess for home PT/OT visits for home safety evaluation and strengthening program, if indicated. Questions: Agency name and contact information: [facility] Patient location post discharge: home What services are requested: Registered Nurse Physical Therapy Occupational Therapy Start date: Responsible MD post discharge contact info: [facility] [place] Glen Doyle and PCP Gordy Moon Discharge References/Attachments: Discharge References/Attachments None Electronically Signed By: JOANNA DEE MD PGY 1 General Surgery Vascular Surgery Service 05/29/2015 documented in this encounter Discharge Instructions Patient InstructionsWiJoanna gardner MD - 05/27/2015 1:31 PM EST Patient Instructions You were admitted on 05/25/2015 after having a left femoral endarterectomy and arterial bypass to get more blood flow to your leg. All of this went very well. Dr. Doyle will want to see you in approximately 2 weeks with ABIs and a duplex of your bypass. All of this will be ordered and sent to you in the mail. If for some reason you don't receive this within a week or so please call our office as yourfollowup is very important. Anticoagulation: on coumadin. Goal INR 2-3. At discharge INR=1.5 Call your doctor if: Any fever, any drainage, redness or separation of your incision, increased painor change in temperature of your leg Activity level: up as tolerated but watch for swelling of your leg. Manage this with leg elevation, toes higher than your nose and also can use marlyn wrapping from your foot to below knee, tape in place,rewrap as necessary. Diet: resume your previous regular diet Driving: none right now with pain medication use Shower/Bath: showering is fine Wound Care: ok to shower and wash all incisions under running water, pat dry. For any problems or questions please call [phone] SAMIA Lopez, senior sales operations manager Nurse Clinician For issues on weeknights after 5pm and weekends please call [phone] and ask for the Vascular Fellow aeronautical engineering officer. documented in this encounter Medications at Time of Discharge Medication Sig Dispensed Refills Start Date End Date sertraline (ZOLOFT) 50 Take 75 mg by mouth 0 mg Tablet daily. Takes with 25mg aspirin 81 mg Tablet, Take 1 tablet by mouth 30 tablet 3 Delayed Release (E.C.) daily. acetaminophen Take 325 mg by mouth 0 (TYLENOL) 325 mg every 4 hours as Tablet needed for Pain. gabapentin (NEURONTIN) Take 1 capsule by 90 capsule 12 201406/01/2015 300 mg Capsule mouth 3 times daily. oxyCODONE (ROXICODONE) Take 1 tablet by mouth 30 tablet 0 1 07/29/2014 06/01/2015 5 mg Tablet every 4 hours as needed for Pain. enoxaparin (LOVENOX) Inject 0.75 mLs 3.75 mL 0 05/29/2015 06/01/2015 80 mg/0.8 mL Syringe subcutaneously daily for 5 days. meTOPROLOL succinate Take 1 tablet by mouth 30 tablet 12 03/201504/18/2016 (TOPROL-XL) 25 mg daily. Tablet Sustained Release 24 hrIndications: ASCVD (arteriosclerotic cardiovascular disease) warfarin (COUMADIN) 3 Take 1 tablet by mouth 30 tablet 11 06/01/2015 mg Tablet daily. warfarin (COUMADIN) 1 Take 1 tablet by mouth 15 tablet 11 06/01/2015 mg Tablet as needed (as needed for coumadin dose adjustments). multivitamin Take 1 tablet by mouth 0 05/07/2017 (THERAGRAN) Tablet daily. metFORMIN (GLUCOPHAGE) Take 1,000 mg by mouth 0 08/03/2015 500 mg Tablet 2 times daily (with meals). Takes 2 bid simvastatin (ZOCOR) 20 Take 20 mg by mouth 0 06/12/2016 mg Tablet nightly. lisinopril Take 5 mg by mouth 0 2015 (PRINIVIL;ZESTRIL) 5 daily. mg Tablet documented as of this encounter Progress Notes Trisha Beckford, PT - 05/28/2015 1:45 PM EST Physical Therapy Treatment Note Visit #: 08/17 Patient Dx: Pt. is a 64 y.o. female admitted on 05/26/2015 by Glen Tracy MD with a PMH of critical limb ischemia, now s/p: 1. Left common femoral to posterior tibial bypass graft 2. Left ileofemoral endarterectomy with bovine pericardial patch angioplasty 3. Thrombectomy of occluded RN TELEMETRY-peroneal vein bypass graft PMH: Past Medical History Past Medical History Diagnosis Date ??? HTN (hypertension) ??? DM (diabetes mellitus) metformin ??? Hypercholesterolemia ??? PVD (peripheral vascular disease) ??? HLD (hyperlipidemia) 03/24/2015 Past Surgical History Past Surgical History Procedure Laterality Date ??? Skin graft Left left 2nd metacarpal ??? Pro vein bypass graft, fem-tibial Left 03/18/2015 @BYPASS GRAFT, FEM.-ANT. TIB, POST. TIB, PERONEAL, DP W\ VEIN CONDUIT ([place] [address]) performed by Glen Doyle MD at [facility] MAIN OR ??? Pro bypass graft othr, fem-tibial Left 05/26/2015 @BYPASS GRAFT, FEM-ANT TIBIAL, -POST TIBIAL, -PERONEAL, -DP W\ SYNTHETIC CONDUIT performed by Glen Doyle MD at [facility] MAIN OR ??? Pro bypass graft vein patch/cuff, synthetic Left 05/26/2015 PLACEMENT VEIN PATCH OR CUFF AT DISTAL ANASTOMOSIS OF BYPASS GRAFT, SYNTHETIC CONDUIT , RODRIGUEZ-COLLAR, RACHELLE-PATCH, ADD-ON CODE, LOWER EXTREMITY performed by Glen Doyle MD at [facility] MAIN OR ??? Pro thromboendartectmy iliofemoral Left 05/26/2015 @ENDARTERECTOMY, ILIOFEMORAL W OR W/O PATCH GRAFT performed by Glen Doyle MD at [facility] MAIN OR ??? Pro reoperation, bypass graft Left 05/26/2015 @RE-OP FOR RE-DO LOWER EXTREMITY BYPASS GRAFT, >1 MONTH P\ ORIGINAL SURGERY, ADD-ON CODE performed by Glen Doyle MD at [facility] MAIN OR Social History: Patient lives w/ her significant other in a one-level ranch with a ramp to enter. There are stairs leading down to the basement, but patient reports she does not need to use them. Patient was an independent ambulator mostly using a cane, but also has a walker. 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 Her significant other will be at home during the day, and her sister lives nearby. She has a cane vandana walker at home. Precautions/Special Considerations: Fall Risk, Bleeding precautions, Oliva, full code, skin breakdown risk, up with assistance, carb control diet Staff communication/Mobility Recommendations: one assist with FWW and post op shoe Interval History: non significant S: My heel and toes are very sensitive but the pain medications are helping. O: Patient seen for 45 mins for functional mobility to address goals. Patient's sister present throughout session. Pt demonstrated the following ?? Supine to sit: independent from flat bed without features ?? Patient fitted for and issued post op shoe and assisted to maverick L sock ?? Static unsupported sitting balance: good ?? Scooting: supervised with verbal cues to complete ?? Sit to stand: up to FWW with supervision, verbal cues for hand placement ?? Gait: 150' with FWW and supervision, step to pattern, decreased L LE stance time ?? Stand to sit: onto low toilet with distant supervision ?? Pt voided, completed ed-care independently ?? Sit to stand: supervised up to FWW, use of rail in bathroom ?? Static standing balance: good, tied pants independently, washed hands at sink independently ?? Stand to sit: supervised from FWW, verbal cues for hand placement ?? Therex: patient instructed in and demonstrated ankle pumps/circles, LAQ, hip flexion, quad set inlong sitting, verbal cues throughout for technique, issued written instructions per patient request ?? Patient remained in chair at end of session, B LEs elevated, call aparicio in reach, reinforced terminal knee extension and positioning of pillow under LE to promote extension Pain: 5/10 with ambulation, no pain behaviors however patient reports this is not a tolerable level (0 is a tolerable level) Education: Pt/family education ongoing re therex, post op shoe, ambulation, elevation, terminal kneeextension A: Patient with much improved pain control this session. All goals of physical therapy met and patient cleared for discharge to home with home PT and family support once medically cleared. Patient willremain monitored while in house and should continue to ambulate with nursing staff. Physical Therapy Goals: To be achieved by 06/03/15 1. Pt. to demonstrate understanding of appropriate exercises. - MET 05/28/15 2. Pt. To transfer under supervision with SPC. - MET 05/28/15 3. Pt. To ambulate 150 ft w/ least restrictive device under Supervision. - MET 05/28/15 4. Family or caregiver to demonstrate understanding of therapeutic interventions to support the careof the patient. - MET (sister) Discharge Recommendations: Home with family support and home PT once medically cleared P: Monitor until formal discharge Time In/Out: 8848-9861 Total time spent with patient: 45 minutes Total timed interventions: 45 minutes Billin functional activity Pager: [phone] TRISHA BECKFORD, KELVIN Physical Therapy Rehabilitation Department Joanna Dee MD - 05/28/2015 11:02 AM EST Vascular Surgery Progress Note ID: 64yo woman 2 Days Post-Op s/p fem-PT bypass with PTFE and vein cuff. 24H/S: No acute events overnight. Pain in left heel continues to be an issue. Ambulating as able. OOB to chair. O: Last value Range last 24 hrs Temperature Temp: 36.6 ??C (97.9 ??F) Temp: [36.3 ??C (97.3 ??F)-36.9 ??C (98.4 ??F)] Heart Rate Heart Rate: 75 Heart Rate: [70-75] Blood Pressure BP: 138/78 mmHg BP: (131-145)/(61-78) Respiratory Rate Resp: 19 Resp: [16-20] SpO2 SpO2: 97 % SpO2: [95 %-97 %] RA I/Os: Intake/Output Summary (Last 24 hours) at 05/28/15 1104 Last data filed at 05/28/15 1030 Gross per 24 hour Intake 2315.3 ml Output 1200 ml Net 1115.3 ml I/O last 1 completed shift: In: 239.3 [P.O.:120; I.V.:119.3] Out: 450 [Urine:450] Physical Exam: Gen: NAD, alert and oriented CV: RRR Pulm: Clear bilaterally Abd: Soft, NT, ND Ext: LLE warm. Calf wound on medial aspect (from prior bypass) has small 2cm portion that is open with granulation tissue, no signs of infx repacked wet-to-dry. New groin and ankle wound is dry and intact, no erythema or drainage. Doppler PT/DP. Labs: Recent Labs 05/28/1541305/27/15 05 WBC 10.2* 8.6 HGB 10.6* 10.9* HCT 31.7* 33.1* PLATELET 173 170 Recent Labs 05/28/1541305/27/15 0521 NA 137 134* K 3.6 3.5 CL 101 99 CO2 24 25 BUN 5* 6* CREATININE 0.39* 0.48* Recent Labs 05/28/1541305/27/15 0521 CALCIUM 7.9* 7.6* Coags Lab Results Component Value Date INR 1.3* 05/28/2015 PT 16.7* 05/28/2015 PTT 70* 05/28/2015 A/P: 64yo woman POD 2 s/p fem-PT bypass with PTFE and vein cuff. Doing well. Plan for home with VNA,lovenox bridge to coumadin tomorrow. - therapeutic heparin gtt and coumadin - cont oxycodone and gabapentin for pain - cont wound care (WTD over medial calf wound) - PT/OT Joanna Dee MD PGY 1 General Surgery Vascular Surgery Service Pgr [phone] Chela Blancas - 05/27/2015 3:59 PM EST Vascular Surgery Progress Note ID: 64yo woman POD1 s/p fem-PT bypass with PTFE and vein cuff. 24H/S: No acute events overnight. Pain continues to be an issue. O: Last value Range last 24 hrs Temperature Temp: 36.9 ??C (98.4 ??F) Temp: [36.5 ??C (97.7 ??F)-38.2 ??C (100.8 ??F)] Heart Rate Heart Rate: 75 Heart Rate: [54-79] Blood Pressure BP: 137/68 mmHg BP: (106-156)/(42-78) Respiratory Rate Resp: 18 Resp: [8-20] SpO2 SpO2: 95 % SpO2: [93 %-98 %] RA I/Os: Intake/Output Summary (Last 24 hours) at 05/27/15 1559 Last data filed at 05/27/15 1449 Gross per 24 hour Intake 1957.7 ml Output 755 ml Net 1202.7 ml I/O last 1 completed shift: In: 1257.7 [P.O.:120; I.V.:1137.7] Out: 450 [Urine:450] Physical Exam: Gen: NAD, alert and oriented CV: RRR Pulm: Clear bilaterally Abd: Soft, NT, ND Ext: LLE warm. Calf wound on medial aspect (from prior bypass) has small 2cm portion that is open with granulation tissue, no signs of infx repacked. New groin and ankle wound is dry and intact, no erythemaor drainage. Doppler PT/DP. Labs: Recent Labs 05/27/15 0521 05/26/15 0814 WBC 8.6 6.6 HGB 10.9* 13.0 HCT 33.1* 38.5 PLATELET 170 240 Recent Labs 05/27/15 0521 05/26/15 0814 NA 134* 141 K 3.5 4.2 CL 99 101 CO2 25 27 BUN 6* 11 CREATININE 0.48* 0.55* Recent Labs 05/27/15 0521 05/26/15 0814 CALCIUM 7.6* 9.3 INR 1.1 A/P: 64yo woman POD1 s/p fem-PT bypass with PTFE and vein cuff. Doing well. - HLIV - DC oliva - therapeutic heparin gtt to start today, coumadin tonight - cont oxycodone and gabapentin for pain - cont wound care (WTD over medial calf wound) - PT/OT Margot Sutton RN - 05/27/2015 3:27 PM EST Office of Care Management (OCM) / Electrical Maintenance Worker(CM)/ Initial Assessment Discussed patient with Provider Team and with field staffJOSEPH Reddy. Reviewed record and interviewed patient. Introduced/reviewed CM role and services accepted. REASON for HOSPITALIZATION: Critical limb ischemia. OR on 05/26/15 Left leg vascular bypass. At thistime patient is on Carb control level 2 diet po. Novolog SQ TID (meals). Metformin po BID. Heparin gtt as ordered. Oliva catheter D/C today. Neurontin 300mg po TID. Tylenol po q4hr prn. Oxycodone po q4hr prn. 95% on RA. Lisinopril po qday. Toprol XL po qday. Aspirin EC 81mg po qday. Zoloft po qday. Zocor po qpm. PMH Claudication I73.9 03/16/2015 Yes Non-healing ulcer of foot L97.509 03/16/2015 Yes Overview Signed 03/24/2015 9:42 AM by Margi Lockhart RN Previous wound to left foot between 4th & 5th toe, currently resolved, 03/2015 PAD (peripheral artery disease) I73.9 03/16/2015 Yes Overview Signed 05/27/2015 1:34 PM by Margi Lockhart RN 05/26/2015: Left femoral endarterectomy and LLE fem-PT arterial bypass Non-Hospital Problem List Date Reviewed: 05/19/2015 ICD-10-CM Priority Class Noted DMII (diabetes mellitus, type 2) E11.9 03/16/2015 Hypercholesterolemia E78.0 03/16/2015 Hypertension I10 03/16/2015 HLD (hyperlipidemia) E78.5 03/24/2015 PREVIOUS FUNCTIONAL STATUS: independent CURRENT FUNCTIONAL STATUS: ambulating with assistance. PT/OT consult. SOCIAL / FAMILY SUPPORTS: Partner Jaime Pulliam, family/friends ADVANCE DIRECTIVES: None on file here at [facility] COVERAGE: Blue [employer] [place] CURRENT HOME/COMMUNITY SERVICES/EQUIPMENT: DME: has cane and walker at home [employer] ATTENDANT REFERRAL: as needed PRIMARY CARE PHYSICIAN: GORDY MOON MD [address] / [facility] [id number] DISCHARGE NEEDS: Message to Court Reporter for referral to [facility]. Care Management note for MD Discharge Summary (with VNA information) completed and pended by securities underwriter. Discussion with tool and die maker. At time of patient's discharge, tool and die maker to call report to VNA and MD Discharge Summaryto be faxed. TRANSPORTATION @ D/C: family/friend PLAN: CM will continue to monitor progress, follow for continuity of care and assist with discharge planning while hospitalized . Niki Alicia, RN - 05/26/2015 7:38 PM EST 1700- pt arrived from PACU, report given to podmate Margi, handoff given to this RN. Pt AAOx4, VSS,pt denies CP/SOB. C/o 3/10 pain in her left leg. IVF infusing into left PIV, hep gtt initiated into right PIV. Left groin site c/d/i w/o s/s of hematoma. LLE covered w/ MARLYN wrap, PT dopplerable per . See doc flowsheet for assessments and interventions. Pt oriented to room and call aparicio system. Will continue to monitor. Joanna Soria MD - 05/26/2015 4:19 PM EST POST-OPERATIVE ASSESSMENT Patient Name: Chan Perry Patient Age: 64 y.o. Attending Physician: Glen Doyle MD Chan Perry is a 64 y.o. female with PMH critical limb ischemia, now s/p: 1. Left common femoral to posterior tibial bypass graft 2. Left ileofemoral endarterectomy with bovine pericardial patch angioplasty 3. Thrombectomy of occluded RN TELEMETRY-peroneal vein bypass graft Procedure(s): @BYPASS GRAFT, FEM-ANT TIBIAL, -POST TIBIAL, -PERONEAL, -DP W\ SYNTHETIC CONDUIT PLACEMENT VEIN PATCH OR CUFF AT DISTAL ANASTOMOSIS OF BYPASS GRAFT, SYNTHETIC CONDUIT , RODRIGUEZ-COLLAR,RACHELLE-PATCH, ADD-ON CODE, LOWER EXTREMITY @ENDARTERECTOMY, ILIOFEMORAL W OR W/O PATCH GRAFT @RE-OP FOR RE-DO LOWER EXTREMITY BYPASS GRAFT, >1 MONTH P\ ORIGINAL SURGERY, ADD-ON CODE S: Tolerated procedure without complication. No nausea/vomiting, has not eaten post-operatively but is thirsty. Pain well controlled, though she has persistent pain in her heel. Denies CP/SOB. O: Temp: [37 ??C (98.6 ??F)-37.2 ??C (99 ??F)] Heart Rate: [49-60] Resp: [6-17] BP: (106-157)/(42-78) SpO2: [93 %-100 %] Physical Exam Gen: NAD, resting comfortably CVS: RRR, no murmurs, rubs or gallops Resp: CTAB Abd: soft, nontender, nondistended Vasc: Left PT with good doppler signal; remainder of L leg dressed, clean and dry, did not take down. A/P: Chan Perry is a 64 y.o. female s/p above procedures, currently in stable condition and recovering well following surgery. - Appropriate for the floor - Pain well controlled with tylenol, oxycodone - Hemodynamically stable, UOP marginal - will continue to monitor as PO intake improves - Continue NS 75cc/hr; Heparin 500u/hr - Continue post operative plan per primary team Joanna Dee MD PGY 1 General Surgery Vascular Surgery Service Pgr [phone] Debi Mata RN - 05/26/2015 2:49 PM EST Pt arrived sleepy with no c/o pain. VSS, doppler pulse in left foot , PT only. 1600: Pain easing with pain med. Wants to sleep. 1615: Attempting to give report, RN not available. 1622: Family in to visit. documented in this encounter H&P Notes Chela Blancas - 05/26/2015 8:31 AM EST Please see H&P by Dr. Hernández dated 05-24-15. Arteriogram demonstrated occluded SFA to peroneal bypass. Plan today is for redo- bypass (SFA to distal PT) with arm vein. Otherwise, there has been no significant interval change. documented in this encounter Miscellaneous Notes Plan of Care - Elizabeth Magana RN - 05/29/2015 1:28 PM EST Problem: Skin Integrity Impairment, Risk/Actual (Adult, Obstetrics) Goal: Identify Signs and Symptoms and Related Risk Factors Signs and symptoms and related risk factors are identified upon initiation of Human Response Clinical Practice Guideline (CPG) Outcome: Outcome (s) achieved Date Met: 05/29/15 Goal: Skin Integrity/Wound Healing Patient will demonstrate the desired outcomes. Outcome: Outcome (s) achieved Date Met: 05/29/15 05/29/15 1312 Skin Integrity Impairment, Risk/Actual (Adult, Obstetrics) Skin Integrity/Wound Healing achieves outcome Problem: Pressure Ulcer Risk (Using Kane Scale) (Adult, Obstetrics, Pediatric) Goal: Identify Signs and Symptoms and Related Risk Factors Signs and symptoms and related risk factors are identified upon initiation of Human Response Clinical Practice Guideline (CPG) Outcome: Outcome (s) achieved Date Met: 05/29/15 Goal: Skin Integrity Patient will demonstrate the desired outcomes. 05/29/15 1312 Pressure Ulcer Risk (Using Kane Scale) (Adult, Obstetrics, Pediatric) Skin Integrity achieves outcome Problem: General Plan of Care Goal: Plan of Care Review Outcome: Outcome (s) achieved Date Met: 05/29/15 OUTCOME EVALUATION NOTE: OUTCOME SUMMARY: Pt slept in naps this am. Reviewed AVS with pt and script given. Meds, S&S infection and dressing care emphasized. Pt verbalized understanding. VNA referral faxed and called. Report given. Coumadindose verified with Dr. Miramontes PLAN MOVING FORWARD: D/C home with VNA referral INDIVIDUALIZED FALL PREVENTION: Assistance: Indep with ADL's after being set up Supervision: ! Assist and walker with ambulation Surveillance: Sunshine purposeful rounding CPG OUTCOME EVALUATION: Goal: Individualization and Mutuality Outcome: Outcome (s) achieved Date Met: 05/29/15 05/26/15219905/28/15 0221 Individualization Patient Specific Goals -- rest and sleep, pain control, anticoagulation Patient Specific Interventions -- PRN Tylenol, PRN Oxycodone. scheduled, Gabapentin, care clustered,Heparin gtt Mutuality/Individual Preferences What anxieties, fears or concerns do you have about your health or care? how things are going to sleeve turner -- What questions do you have about your health or care? none -- What information would help us give you more personalized care? none -- Goal: Fall Prevention-Safe Patient Handling Outcome: Outcome (s) achieved Date Met: 05/29/15 05/28/15 1956 05/29/15 0748 05/29/15 1100 Musculoskeletal Interventions Activity/Level of Assistance -- -- up in room;ambulated;with walker;with 1- person assist Positioning -- -- independent Muscle Strengthening activity/mobility promoted;mobility in bed promoted -- -- Self-Care Promotion personal/BADL objects within reach;independence encouraged while providing assistance -- -- Activity and Safety Assistive Device -- -- Front wheel walker Andino Fall Risk History of Falling -- 0 -- Secondary Diagnosis -- 15 -- Ambulatory Aids -- 15 -- Intravenous Therapy/Heparin/Saline Lock -- 20 -- Gait/Transferring -- 10 -- Mental Status -- 0 -- Score -- 60 -- OTHER Andino Fall Risk -- High -- Safety Interventions Safety Precautions/Fall Reduction -- assistive device;environmental modification;fall reduction program maintained;low bed;nonskid shoes/slippers when out of bed -- Goal: Infection Control Outcome: Outcome (s) achieved Date Met: 05/29/15 05/29/15 0748 Coping/Psychosocial Response Interventions Counseling goal setting facilitated Safety Interventions Isolation Precautions standard precautions maintained Infection Prevention blood glucose management;environmental surveillance;hydration promoted;nutrition promoted Goal: Discharge Needs Assessment Outcome: Outcome (s) achieved Date Met: 05/29/15 05/26/15 2200 Self-Care Equipment Currently Used at Home cane, straight;walker, standard;shower chair Living Environment Transportation Available family or friend will provide Problem: Revascularization/PAD, Lower Extremity (Adult) Goal: Signs and symptoms of listed potential problems will be absent or manageable (reference (Revascularization/PAD, Lower Extremity (Adult)) CPG) Outcome: Outcome (s) achieved Date Met: 05/29/15 05/29/15 1312 Revascularization/PAD, Lower Extremity Problems Assessed (Lower Extremity Peripheral Artery Disease/LEAR) all Problems Present (Lower Extremity Peripheral Artery Disease/LEAR) acute pain;other (see comments) (Open area) Plan of Care - Migue Richardson RN - 05/29/2015 5:02 AM EST Problem: General Plan of Care Goal: Plan of Care Review 05/29/15 0133 Coping/Psychosocial Response Interventions Plan of Care Reviewed with patient Plan of Care Review Plan of Care Outcome Status ongoing (interventions implemented as appropriate) Progress improving OUTCOME EVALUATION NOTE: OUTCOME SUMMARY: Patient's pain on the left groin and left foot was well- controlled with PRN Tylenoland PRN Oxycodone. Left groin and left lower leg dressings remain intact. (+)dopplerable left DP andleft PT. PLAN MOVING FORWARD: OOB and ambulation in the hallway. Pain control. Anticoagulation. Neurovascularchecks. INDIVIDUALIZED FALL PREVENTION: Assistance: walker Supervision: Standby assist Surveillance: Sunshine, purposeful rounding CPG GOAL OUTCOME EVALUATION: Goal: Individualization and Mutuality Outcome: Ongoing (Interventions Implemented as Appropriate) 11/21/15 0221 Individualization Patient Specific Goals rest and sleep, pain control, anticoagulation Patient Specific Interventions PRN Tylenol, PRN Oxycodone. scheduled, Gabapentin, care clustered, Heparin gtt Goal: Fall Prevention-Safe Patient Handling Outcome: Ongoing (Interventions Implemented as Appropriate) 05/28/1590705/28/151955 Musculoskeletal Interventions Activity/Level of Assistance up in room -- Positioning -- independent;LLE elevated Muscle Strengthening -- activity/mobility promoted;mobility in bed promoted Self-Care Promotion -- personal/BADL objects within reach;independence encouraged while providing assistance Activity and Safety Assistive Device -- Front wheel walker;Boot/Shoe Andino Fall Risk History of Falling -- 0 Secondary Diagnosis -- 15 Ambulatory Aids -- 15 Intravenous Therapy/Heparin/Saline Lock -- 20 Gait/Transferring -- 10 Mental Status -- 0 Score -- 60 OTHER Andino Fall Risk -- High Safety Interventions Safety Precautions/Fall Reduction -- nonskid shoes/slippers when out of bed;low bed;lighting adjusted for task/safety;fall reduction program maintained;environmental modification Goal: Infection Control Outcome: Ongoing (Interventions Implemented as Appropriate) 05/28/151955 Coping/Psychosocial Response Interventions Counseling goal setting facilitated Safety Interventions Isolation Precautions standard precautions maintained Infection Prevention rest/sleep promoted;promote handwashing;nutrition promoted;hydration promoted;environmental surveillance;blood glucose management Problem: Revascularization/PAD, Lower Extremity (Adult) Goal: Signs and symptoms of listed potential problems will be absent or manageable (reference (Revascularization/PAD, Lower Extremity (Adult)) CPG) Outcome: Ongoing (Interventions Implemented as Appropriate) 05/29/15 0133 Revascularization/PAD, Lower Extremity Problems Assessed (Lower Extremity Peripheral Artery Disease/LEAR) all Problems Present (Lower Extremity Peripheral Artery Disease/LEAR) acute pain Plan of Care - Migue Richardson V RN - 05/28/2015 2:33 AM EST Problem: Skin Integrity Impairment, Risk/Actual (Adult, Obstetrics) Goal: Identify Signs and Symptoms and Related Risk Factors Signs and symptoms and related risk factors are identified upon initiation of Human Response Clinical Practice Guideline (CPG) Outcome: Ongoing (Interventions Implemented as Appropriate) 05/28/15220 Skin Integrity Impairment, Risk/Actual Personal Related Risk Factors (Skin Integrity Impairment, Risk/Actual) fair complexion;sleep deprivation Treatment Related Related Risk Factors (Skin Integrity Impairment, Risk/Actual) fixation device;invasive catheters;surgery Goal: Skin Integrity/Wound Healing Patient will demonstrate the desired outcomes. Outcome: Ongoing (Interventions Implemented as Appropriate) 05/28/15220 Skin Integrity Impairment, Risk/Actual (Adult, Obstetrics) Skin Integrity/Wound Healing making progress toward outcome Problem: General Plan of Care Goal: Plan of Care Review Outcome: Ongoing (Interventions Implemented as Appropriate) 05/28/15220 Coping/Psychosocial Response Interventions Plan of Care Reviewed with patient Plan of Care Review Plan of Care Outcome Status ongoing (interventions implemented as appropriate) Progress improving OUTCOME EVALUATION NOTE: OUTCOME SUMMARY: PLAN MOVING FORWARD: OOB and ambulation in the hallway during waking hours. Pain control. Neurovasclar checks. INDIVIDUALIZED FALL PREVENTION: Assistance: walker Supervision: Standby assist Surveillance: Masimo, purposeful rounding CPG GOAL OUTCOME EVALUATION: Goal: Individualization and Mutuality Outcome: Ongoing (Interventions Implemented as Appropriate) 05/28/15220 Individualization Patient Specific Goals rest and sleep, pain control, anticoagulation Patient Specific Interventions PRN Tylenol, PRN Oxycodone. scheduled, Gabapentin, care clustered, Heparin gtt Goal: Fall Prevention-Safe Patient Handling Outcome: Ongoing (Interventions Implemented as Appropriate) 05/27/152048 Musculoskeletal Interventions Activity/Level of Assistance up in room;ambulated;with walker;with stand by assist Positioning independent Muscle Strengthening mobility in bed promoted;activity/mobility promoted Self-Care Promotion independence encouraged while providing assistance;personal/BADL objects within reach Activity and Safety Assistive Device Front wheel walker Andino Fall Risk History of Falling 0 Secondary Diagnosis 15 Ambulatory Aids 15 Intravenous Therapy/Heparin/Saline Lock 20 Gait/Transferring 10 Mental Status 0 Score 60 OTHER Andino Fall Risk High Safety Interventions Safety Precautions/Fall Reduction nonskid shoes/slippers when out of bed;low bed;lighting adjusted for task/safety;fall reduction program maintained;environmental modification Goal: Infection Control Outcome: Ongoing (Interventions Implemented as Appropriate) 05/27/152048 Coping/Psychosocial Response Interventions Counseling goal setting facilitated Safety Interventions Isolation Precautions standard precautions maintained Infection Prevention rest/sleep promoted;promote handwashing;nutrition promoted;hydration promoted;environmental surveillance;blood glucose management Problem: Revascularization/PAD, Lower Extremity (Adult) Goal: Signs and symptoms of listed potential problems will be absent or manageable (reference (Revascularization/PAD, Lower Extremity (Adult)) CPG) Outcome: Ongoing (Interventions Implemented as Appropriate) 05/28/15 0221 Revascularization/PAD, Lower Extremity Problems Assessed (Lower Extremity Peripheral Artery Disease/LEAR) all Problems Present (Lower Extremity Peripheral Artery Disease/LEAR) acute pain Plan of Care - Maureen Wilder RN - 05/27/2015 6:58 PM EST Problem: Skin Integrity Impairment, Risk/Actual (Adult, Obstetrics) Goal: Identify Signs and Symptoms and Related Risk Factors Signs and symptoms and related risk factors are identified upon initiation of Human Response Clinical Practice Guideline (CPG) Outcome: Ongoing (Interventions Implemented as Appropriate) 05/27/15 0450 Skin Integrity Impairment, Risk/Actual Personal Related Risk Factors (Skin Integrity Impairment, Risk/Actual) fair complexion;sleep deprivation Treatment Related Related Risk Factors (Skin Integrity Impairment, Risk/Actual) fixation device;invasive catheters;surgery Signs and Symptoms (Skin Integrity Impairment, Risk/Actual) other (see comments) (surgical incision) OUTCOME EVALUATION NOTE: OUTCOME SUMMARY: Pt had good pain control through the day. Pt sat up in the chair for a good part of the day and ambulated around the unit PLAN MOVING FORWARD: Pt encouraged to drink water and ambulate this evening INDIVIDUALIZED FALL PREVENTION: Pt is alert and oriented and is resting in bed. Will continue to monitor and maintain safe environment, free from clutter and tripping hazards. Keep call light within reach and non-skid slippers in place when OOB. Assistance: Pt is a stand by assist with walker Supervision: Pt supervised as needed Surveillance: Purposeful rounding & Masimo CPG OUTCOME EVALUATION: Goal: Skin Integrity/Wound Healing Patient will demonstrate the desired outcomes. Outcome: Ongoing (Interventions Implemented as Appropriate) 05/27/15449 Skin Integrity Impairment, Risk/Actual (Adult, Obstetrics) Skin Integrity/Wound Healing making progress toward outcome Problem: Pressure Ulcer Risk (Using Kane Scale) (Adult, Obstetrics, Pediatric) Goal: Identify Signs and Symptoms and Related Risk Factors Signs and symptoms and related risk factors are identified upon initiation of Human Response Clinical Practice Guideline (CPG) Outcome: Ongoing (Interventions Implemented as Appropriate) 05/27/15449 Pressure Ulcer Risk (Using Kane Scale) Related Risk Factors (Pressure Ulcer Risk (Using Kane Scale)) fixation devices;infection;medical devices;operative procedure greater than 90 minutes;pain/sensory awareness, decreased Goal: Skin Integrity Patient will demonstrate the desired outcomes. Outcome: Ongoing (Interventions Implemented as Appropriate) 05/27/15449 Pressure Ulcer Risk (Using Akne Scale) (Adult, Obstetrics, Pediatric) Skin Integrity making progress toward outcome Problem: General Plan of Care Goal: Plan of Care Review Outcome: Ongoing (Interventions Implemented as Appropriate) 05/27/1544905/27/15905 Coping/Psychosocial Response Interventions Plan of Care Reviewed with -- patient Plan of Care Review Plan of Care Outcome Status ongoing (interventions implemented as appropriate) -- Progress improving -- Goal: Individualization and Mutuality Outcome: Ongoing (Interventions Implemented as Appropriate) 05/26/15219905/27/15449 Individualization Patient Specific Goals -- rest and sleep, pain control, neuro vascular ckecks Patient Specific Interventions -- care clustered, PRN Tylenol, PRN Oxycodone, scheduled Gabapentin Mutuality/Individual Preferences What anxieties, fears or concerns do you have about your health or care? how things are going to sleeve turner -- What questions do you have about your health or care? none -- What information would help us give you more personalized care? none -- Goal: Fall Prevention-Safe Patient Handling Outcome: Ongoing (Interventions Implemented as Appropriate) 05/27/1544905/27/1590505/27/15 1800 Musculoskeletal Interventions Activity/Level of Assistance -- -- up ad timothy;up in zaman;with walker;with stand by assist Positioning -- -- independent Muscle Strengthening mobility in bed promoted -- -- Self-Care Promotion personal/BADL objects within reach;independence encouraged while providing assistance -- -- Activity and Safety Assistive Device -- -- Front wheel walker Andino Fall Risk History of Falling -- 0 -- Secondary Diagnosis -- 15 -- Ambulatory Aids -- 15 -- Intravenous Therapy/Heparin/Saline Lock -- 20 -- Gait/Transferring -- 10 -- Mental Status -- 0 -- Score -- 60 -- OTHER Andino Fall Risk -- High -- Safety Interventions Safety Precautions/Fall Reduction -- lighting adjusted for task/safety;environmental modification;nonskid shoes/slippers when out of bed -- Goal: Infection Control Outcome: Ongoing (Interventions Implemented as Appropriate) 05/27/15 0906 Coping/Psychosocial Response Interventions Counseling calming techniques promoted;relaxation techniques promoted Safety Interventions Isolation Precautions standard precautions maintained Infection Prevention rest/sleep promoted Problem: Revascularization/PAD, Lower Extremity (Adult) Goal: Signs and symptoms of listed potential problems will be absent or manageable (reference (Revascularization/PAD, Lower Extremity (Adult)) CPG) Outcome: Ongoing (Interventions Implemented as Appropriate) 05/27/15 0450 Revascularization/PAD, Lower Extremity Problems Assessed (Lower Extremity Peripheral Artery Disease/LEAR) all Problems Present (Lower Extremity Peripheral Artery Disease/LEAR) acute pain Initial Assessments - Calvin Zavala, ULYSSES - 05/27/2015 1:59 PM EST Occupational Therapy Evaluation Patient profile: Chan Perry is a 64 y.o. female patient of Glen Tracy MD, admitted on05/26/2015 with a PMH of critical limb ischemia, now s/p: 1. Left common femoral to posterior tibial bypass graft 2. Left ileofemoral endarterectomy with bovine pericardial patch angioplasty 3. Thrombectomy of occluded RN TELEMETRY-peroneal vein bypass graft Past Medical History Diagnosis Date ??? HTN (hypertension) ??? DM (diabetes mellitus) metformin ??? Hypercholesterolemia ??? PVD (peripheral vascular disease) ??? HLD (hyperlipidemia) 03/24/2015 Past Surgical History Procedure Laterality Date ??? Skin graft Left left 2nd metacarpal ??? Pro vein bypass graft, fem-tibial Left 03/18/2015 @BYPASS GRAFT, FEM.-ANT. TIB, POST. TIB, PERONEAL, DP W\ VEIN CONDUIT ([place] [id number]) performed by Glen Doyle MD at [facility] MAIN OR ??? Pro bypass graft othr, fem-tibial Left 05/26/2015 @BYPASS GRAFT, FEM-ANT TIBIAL, -POST TIBIAL, -PERONEAL, -DP W\ SYNTHETIC CONDUIT performed by Glen Doyle MD at [facility] MAIN OR ??? Pro bypass graft vein patch/cuff, synthetic Left 05/26/2015 PLACEMENT VEIN PATCH OR CUFF AT DISTAL ANASTOMOSIS OF BYPASS GRAFT, SYNTHETIC CONDUIT , RODRIGUEZ-COLLAR, RACHELLE-PATCH, ADD-ON CODE, LOWER EXTREMITY performed by Glen Doyle MD at [facility] MAIN OR ??? Pro thromboendartectmy iliofemoral Left 05/26/2015 @ENDARTERECTOMY, ILIOFEMORAL W OR W/O PATCH GRAFT performed by Glne Doyle MD at [facility] MAIN OR ??? Pro reoperation, bypass graft Left 05/26/2015 @RE-OP FOR RE-DO LOWER EXTREMITY BYPASS GRAFT, >1 MONTH P\ ORIGINAL SURGERY, ADD-ON CODE performed by Glen Doyle MD at [facility] MAIN OR Social History: Patient lives with SO and will have sister available to assist. Home Setup: steps and one level, tub shower DME: will borrow a shower seat, walker and has a cane, sock aid, raised toilet seat with arms Baseline ADL/Mobility: Independent with ADL???s and IADL???s Code Status: Full Code Activity Orders:up with assistance Precautions: bleeding precautions, fall, skin breakdown Subjective: Thank you for coming in. Objective: Seen today for OT evaluation. Cognition/Behavior: alert, oriented to person, place, and time Communication: WFL Vision & Perception: NT Range of motion, strength, coordination: B UE WFL Sensation: WFL Activities of Daily Living: Self-feeding ?? NT Grooming / Bathing ?? Patient needing minimal assistance UB / LB dressing ?? Minimal assistance for LB dressing Toileting ?? Toilet Transfer: Minimal assistance with grab bar ?? Toilet Hygiene: supervision IADLS: Patient has assistance Functional Mobility: ?? Sit to stand: Minimal assistance ?? Ambulation: CTG A to/from bathroom in/out with walker ?? Stand to sit: CTG A Balance: ?? Sitting: Good ?? Standing: Fair with walker Endurance: Information taken from last recorded vitals in flowsheet. Last value Range last 8 hrs Heart Rate Heart Rate: 79 Heart Rate: [72-79] Blood Pressure BP: 156/74 mmHg BP: (140-156)/(64-78) SpO2 SpO2: 95 % SpO2: [94 %-95 %] Fair Pain: Patient with 7/10 pain in toes and left groin area.. Skin: Not assessed, incision Informed Consent: The patient agrees to and understands the OT treatment plan and goals. Education: patient educated on Role of occupational therapy/rehabilitation, ADL, Precautions/Protocol, Functional Mobility, Recommendations and Discharge planning and needs reinforcement. understanding. Patient status, treatment, and mobility recommendations discussed with nursing. Assessment: Pt has been seen by OT for evaluation, and she presents with impaired ability to performdaily activities and functional mobility secondary to critical limb ischemia s/p surgery . Pt tolerated treatment with decrease in functional mobility for ADLS. Pt would benefit from ongoing OT services to maximize functional independence. Discharge Recommendations: Patient would benefit home with family support 28/01. Equipment needs at discharge: Patient has adaptive equipment for home d/c. Daily Schedule / Staff Recommendations: Encourage OOB activity and participation in self-care activities. Goals: To be achieved by D/C. 1. Patient will stand at sink level with supervision x10 min for ADLs. 2. Patient will dress lower body indep with adaptive equipment prn. 3. Patient will perform simple kitchen mgt with appropriate assistive device as needed and supervision. 4. Patient will ambulate to the bathroom with supervision, assistive device as needed. 5. Patient will demonstrate energy conservation principals with all ADLs indep. Plan: Pt to be seen 2-4 per week for therapy including Role of occupational therapy/rehabilitation, Adaptive equipment training, ADL, Safety, Precautions/Protocol, Functional Mobility, Activity pacing/Energy conservation, Home Management, Recommendations and Discharge planning Eval Date: 05/27/2015 Total time spent with patient: 30 minutes evaluation Total timed interventions: 0 minutes Pager: [phone] CALVIN ZAVALA OT 05/27/2015 Occupational Therapy Rehabilitation Department Initial Assessments - Monse Johnson, PT - 05/27/2015 9:43 AM EST Physical Therapy Evaluation Patient profile: Pt. is a 64 y.o. female admitted on 05/26/2015 by Glen Tracy MD with a PMHof critical limb ischemia, now s/p: 1. Left common femoral to posterior tibial bypass graft 2. Left ileofemoral endarterectomy with bovine pericardial patch angioplasty 3. Thrombectomy of occluded RN TELEMETRY-peroneal vein bypass graft PMH: Past Medical History Diagnosis Date ??? HTN (hypertension) ??? DM (diabetes mellitus) metformin ??? Hypercholesterolemia ??? PVD (peripheral vascular disease) ??? HLD (hyperlipidemia) 03/24/2015 Past Surgical History Procedure Laterality Date ??? Skin graft Left left 2nd metacarpal ??? Pro vein bypass graft, fem-tibial Left 03/18/2015 @BYPASS GRAFT, FEM.-ANT. TIB, POST. TIB, PERONEAL, DP W\ VEIN CONDUIT ([place] [id number]) performed by Glen Doyle MD at [facility] MAIN OR ??? Pro bypass graft othr, fem-tibial Left 05/26/2015 @BYPASS GRAFT, FEM-ANT TIBIAL, -POST TIBIAL, -PERONEAL, -DP W\ SYNTHETIC CONDUIT performed by Glen Doyle MD at [facility] MAIN OR ??? Pro bypass graft vein patch/cuff, synthetic Left 05/26/2015 PLACEMENT VEIN PATCH OR CUFF AT DISTAL ANASTOMOSIS OF BYPASS GRAFT, SYNTHETIC CONDUIT , RODRIGUEZ-COLLAR, RACHELLE-PATCH, ADD-ON CODE, LOWER EXTREMITY performed by Glen Doyle MD at [facility] MAIN OR ??? Pro thromboendartectmy iliofemoral Left 05/26/2015 @ENDARTERECTOMY, ILIOFEMORAL W OR W/O PATCH GRAFT performed by Glen Doyle MD at [facility] MAIN OR ??? Pro reoperation, bypass graft Left 05/26/2015 @RE-OP FOR RE-DO LOWER EXTREMITY BYPASS GRAFT, >1 MONTH P\ ORIGINAL SURGERY, ADD-ON CODE performed by Glen Doyle MD at [facility] MAIN OR Social History: Patient lives w/ her significant other in a one-level ranch with a ramp to enter. There are stairs leading down to the basement, but patient reports she does not need to use them. Patient was an independent ambulator mostly using a cane, but also has a walker. 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 Her significant other will be at home during the day, and her sister lives nearby. She has a cane vandana walker at home. Precautions/Special Considerations: Fall Risk, Bleeding precautions, Oliva Subjective: ???My left leg hurts Objective: Pt seen for PT evaluation today. Pain: 7 LLE (nursing aware; patient received pain medication) Vital Signs: Sp02: 96% on room air HR: 76 bpm Mental Status: alert, oriented to person, place, and time Musculoskeletal: ROM: WFL overall; LLE in MARLYN wrap up to knee Strength: WFL overall; decreased strength LLE (3/5 for quads, hip flexors) Sensation: grossly intact Bed Mobility: Supine to Sit: Independent, slow Sit to Supine: Independent, able to bridge for repositioning, slow Transfers: Sit to Stand: Min A with RW Stand to Sit: Min A with RW Bed <>Chair: patient declined getting up to recliner at this point Gait: Distance: 0 (did not ambulate on evaluation, but able to march in place) Device used: RW Level of assist: contact guard Gait pattern: - Pt. to utilize rolling walker and minimal assist for ambulation with nursing. Balance: Sitting: Good Standing: Good w/ RW Informed Consent: The patient understands and agrees to the PT treatment plan and goals. Education: Patient has been educated on Bed mobility, Transfers, Assistive device/technique, Exercise, Positioning, Precautions/protocol and Equipment use and verbalizes understanding. Patient status, treatment, and mobility recommendations discussed with nursing. Assessment: Pt tolerated today???s evaluation well. She demonstrated significant LLE pain (nursing aware) and declined to get up into the chair or walk; however, was able to sit up at the edge of the bed independently and stand up with min A using a RW. She tolerated standing for approx 30 sec as wellas weightshift in place. Patient is agreeable to start walking once she feels better. She would liketo discharge to home after her stay here as she has support at home at all times. She was instructedin quad sets and LAQ exercises. The pt would benefit from skilled therapy services to maximize functional independence while in the hospital and to address limitations as noted above. Goals: To be achieved by 06/03/15 1. Pt. to demonstrate understanding of appropriate exercises. 2. Pt. To transfer under supervision with SPC. 3. Pt. To ambulate 150 ft w/ least restrictive device under Supervision. 4. Family or caregiver to demonstrate understanding of therapeutic interventions to support the careof the patient. Plan: Pt to be seen 2-5 times per week for therapy including Bed mobility, Transfers, Assistive device/technique, Exercise, Equipment use, Gait , Activity pacing/Energy conservation, Role of therapy, Balanceand Discharge planning. Patient agrees with plan as stated above. Equipment needs: Patient has all necessary equipment Discharge Recommendations: Home with VNA/PT services No other consults recommended at this time Total time spent with patient: 30 minutes for PT evaluation Total timed interventions: 0 minutes Monse Johnson DPT, IRA 05/27/2015 Pager: [phone] Physical Therapy Rehabilitation Department Plan of Care - Migue Richardson RN - 05/27/2015 5:03 AM EST Problem: Skin Integrity Impairment, Risk/Actual (Adult, Obstetrics) Goal: Identify Signs and Symptoms and Related Risk Factors Signs and symptoms and related risk factors are identified upon initiation of Human Response Clinical Practice Guideline (CPG) Outcome: Ongoing (Interventions Implemented as Appropriate) 05/27/15449 Skin Integrity Impairment, Risk/Actual Personal Related Risk Factors (Skin Integrity Impairment, Risk/Actual) fair complexion;sleep deprivation Treatment Related Related Risk Factors (Skin Integrity Impairment, Risk/Actual) fixation device;invasive catheters;surgery Signs and Symptoms (Skin Integrity Impairment, Risk/Actual) other (see comments) (surgical incision) Goal: Skin Integrity/Wound Healing Patient will demonstrate the desired outcomes. Outcome: Ongoing (Interventions Implemented as Appropriate) 05/27/15449 Skin Integrity Impairment, Risk/Actual (Adult, Obstetrics) Skin Integrity/Wound Healing making progress toward outcome Problem: Pressure Ulcer Risk (Using Kane Scale) (Adult, Obstetrics, Pediatric) Goal: Identify Signs and Symptoms and Related Risk Factors Signs and symptoms and related risk factors are identified upon initiation of Human Response Clinical Practice Guideline (CPG) Outcome: Ongoing (Interventions Implemented as Appropriate) 05/27/15449 Pressure Ulcer Risk (Using Kane Scale) Related Risk Factors (Pressure Ulcer Risk (Using Kane Scale)) fixation devices;infection;medical devices;operative procedure greater than 90 minutes;pain/sensory awareness, decreased Goal: Skin Integrity Patient will demonstrate the desired outcomes. Outcome: Ongoing (Interventions Implemented as Appropriate) 05/27/15449 Pressure Ulcer Risk (Using Kane Scale) (Adult, Obstetrics, Pediatric) Skin Integrity making progress toward outcome Problem: General Plan of Care Goal: Plan of Care Review Outcome: Ongoing (Interventions Implemented as Appropriate) 05/27/15449 Coping/Psychosocial Response Interventions Plan of Care Reviewed with patient Plan of Care Review Plan of Care Outcome Status ongoing (interventions implemented as appropriate) Progress improving OUTCOME EVALUATION NOTE: OUTCOME SUMMARY: Chan has been having 6-8/10 pain on her left groin, lef lower leg, left heel and left toes around 2300 despite PRN Tylenol 325mg, scheduled Gabapentin and PRN Oxycodone 5mg. MD Currie paged and came up to see patient. PRN Oxycodone order changed to Oxycodone 5-10mg PO PRN every 4hrs. Patient received 10mg PO at around 2317 with good effect, patient fell asleep for a few hours. @0344, MD Currie in to see patient, at this time, pt's pain is a 5/10, PRN Oxycodone order changed to5mg PRN Q4hrs. Left groin dressing and Left lower leg dressing remain clean, dry and intact. (+)doplerable left PT and left DP. PLAN MOVING FORWARD: OOB and ambulation in the hallway. Neuro vascular checks. IS use. Pain control. INDIVIDUALIZED FALL PREVENTION: Assistance: walker Supervision: 1-2 assist with bed mobility Surveillance: Sunshine purposeful rounding CPG GOAL OUTCOME EVALUATION: Goal: Individualization and Mutuality Outcome: Ongoing (Interventions Implemented as Appropriate) 05/27/15449 Individualization Patient Specific Goals rest and sleep, pain control, neuro vascular ckecks Patient Specific Interventions care clustered, PRN Tylenol, PRN Oxycodone, scheduled Gabapentin Goal: Fall Prevention-Safe Patient Handling Outcome: Ongoing (Interventions Implemented as Appropriate) 05/26/15195805/26/15219905/27/15336 Musculoskeletal Interventions Positioning -- -- with 2-person assist;HOB up 30 degrees;left side;lower extremities elevated Muscle Strengthening -- -- -- Self-Care Promotion -- -- -- Activity and Safety Assistive Device -- -- -- Andino Fall Risk History of Falling -- 0 -- Secondary Diagnosis -- 15 -- Ambulatory Aids -- 15 -- Intravenous Therapy/Heparin/Saline Lock -- 20 -- Gait/Transferring -- 10 -- Mental Status -- 0 -- Score -- 60 -- OTHER Andino Fall Risk -- High -- Safety Interventions Safety Precautions/Fall Reduction nonskid shoes/slippers when out of bed;low bed;lighting adjusted for task/safety;fall reduction program maintained;environmental modification -- -- 05/27/15449 Musculoskeletal Interventions Positioning -- Muscle Strengthening mobility in bed promoted Self-Care Promotion personal/BADL objects within reach;independence encouraged while providing assistance Activity and Safety Assistive Device Front wheel walker Andino Fall Risk History of Falling -- Secondary Diagnosis -- Ambulatory Aids -- Intravenous Therapy/Heparin/Saline Lock -- Gait/Transferring -- Mental Status -- Score -- OTHER Andino Fall Risk -- Safety Interventions Safety Precautions/Fall Reduction -- Goal: Infection Control Outcome: Ongoing (Interventions Implemented as Appropriate) 05/26/15195805/27/15449 Coping/Psychosocial Response Interventions Counseling -- goal setting facilitated Safety Interventions Isolation Precautions standard precautions maintained -- Infection Prevention rest/sleep promoted;promote handwashing;nutrition promoted;hydration promoted;environmental surveillance;blood glucose management -- Problem: Revascularization/PAD, Lower Extremity (Adult) Goal: Signs and symptoms of listed potential problems will be absent or manageable (reference (Revascularization/PAD, Lower Extremity (Adult)) CPG) Outcome: Ongoing (Interventions Implemented as Appropriate) 05/27/15449 Revascularization/PAD, Lower Extremity Problems Assessed (Lower Extremity Peripheral Artery Disease/LEAR) all Problems Present (Lower Extremity Peripheral Artery Disease/LEAR) acute pain Op Note - Chela Blancas - 05/26/2015 2:44 PM EST [facility] [place] Patient Name: Chan Perry : [id number] MR#: [id number] Case Date: 05/26/2015 Surgeon: Surgeon(s) and Role: * Glen Doyle MD - Primary * Debi Perez MD - Resident-Surgeon Kelvin * Chela Blancas MD - Fellow * Marcia Wright MD - Cashier Host/Hostess Surgeon Preoperative diagnosis: critical limb ischemia with rest pain Postoperative diagnosis: critical limb ischemia with rest pain Procedure(s): 1. Left common femoral to posterior tibial bypass graft with 6mm non-ringed PTFE and distal vein cuff (modification for re-do operation, 15488) 2. Left ileofemoral endarterectomy with bovine pericardial patch angioplasty 3. Thrombectomy of occluded RN TELEMETRY-peroneal vein bypass graft. Findings: Subacute thrombosed plaque in RN TELEMETRY as likely underlying etiology for bypass graft failure. Above procedures performed without incidence. Distal target (PT) was 1.5mm with little/no backbleeding. At case completion pt had monophasic PT and DP (retrograde filling) signals. Anesthesia: General ET IVF: 1.1L crystalloid Estimated Blood Loss: 200cc UOP: 100cc Heparin/Protamine: 8,000 units/50mg Specimens removed during surgery: atherosclerotic plaque Drains: None Surgical Closure: Primary Closure - closure of ALL tissue levels during the original surgery regardless of wires, wickes, drains, or other devices extruding through the incision Disposition: PACU Condition: Stable HPI/Surgical Indications: 64 /o F with HTN HL DMII PAD sp left SFA to distal peroneal bypass on 03/18/15 for CLI (rest pain, non healing ulcer between D4/D5). This bypass graft is occluded. She continues to have rest pain. Presents today for redo bypass. Procedure Description: After informed consent ws obtained the patient was brought back to the operating room and placed supine on the table. General anesthesia was administered and the patient was intubated with an ETT. Additional support lines were placed. Antibiotics were given. Timeout was performed. Attention was turned to the patient's left groin and left ankle Working simultaneously, two teams of surgeons worked to expose the left external iliac, common femoral, profunda and superficial femoral arteries in the groin as well as the distal PT at the ankle. This was done by making a longitudinal incision over the patient's prior left groin incision and a second 4 cm incision along the medial aspect of the patient's lower leg/ankle. In the patinet's groin a short piece of saphenous vein was also harvested to be used as a vein cuff. Once each of these arteries was dissected and encircled with vessel loops, the 6mm non-ringed was tunneled deep from the groin to the ankle. The PT was noted to bevery small, but was dilated up and eventually we were able to pass a 1.5mm dilator through to the foot. There was minimal backbleeding. Systemic heparin was given. Proximally, the EIA, SFA and profundaarteries were clamped. An arteriotomy was made over the RN TELEMETRY and extended with Wang scissors. This re vealed an acutely thrombosed RN TELEMETRY and proximal bypass graft. The graft was thrombectomized. The RN TELEMETRY and distal external iliac artery were endarterectomized in the standard fashion. The profunda artery was everted and endarterectomized as well. The RN TELEMETRY was then patched with bovine pericardial patch secured in a running fashion with 6-0 prolene. The proximal anastomosis for the new RN TELEMETRY to PT bypass was made over this patch, using gortex suture. On the distal end, 2cm of the harvested vein was reversed and sewn to the distal end of the PTFE graft in a circumferential fashion using gortex suture. The distal vein was then anastomosed to the PT with running gortex. The bypass was created to be sure therewas no twisting of the graft and no tension. Satisfied with our result, we noted doppler signals in the distal graft as well as now also in the ankle and the DP. The wounds were both closed in multiplelayers with interrupted 3-0 vicryl deep and then prolene mattress sutures on the skin. Wounds were dressed. Patient was awoken, extubated and taken to PACU in stable condition. All counts were correct. Dr. Doyle was present for the entire case. Associated attestation - Glen Doyle MD - 05/27/2015 4:54 PM EST Attestation: Case Date: 05/26/2015 I was present for and participated in this entire case GLEN DOYLE MD 05/27/2015 documented in this encounter Plan of Treatment Not on filedocumented as of this encounter Procedures Procedure Name Priority Date/Time Associated Comments Diagnosis IMPLANTABLE DEVICES 05/30/2015 12:00 SCAN AM EST ECG SCAN 05/30/2015 12:00 AM EST POCT GLUCOSE Routine 05/29/2015 11:33 Results for this AM EST procedure are i n the results section. POCT GLUCOSE Routine 05/29/2015 7:23 AM Results f or this EST procedure are i n the results section. HEMOGRAM Routine 05/29/2015 6:47 AM Results f or this EST procedure are i n the results section. DIFFERENTIAL, Routine 05/29/2015 6:47 AM Results for this AUTOMATED EST procedure are i n the results section. APTT Routine 05/29/2015 6:47 AM Results f or this EST procedure are i n the results section. PROTHROMBIN TIME Routine 05/29/2015 6:47 AM Resul ts for this EST procedure are i n the results section. CBC (WITH DIFF) Routine 05/29/2015 6:47 AM EST BASIC METABOLIC PANEL Routine 05/29/2015 6:47 AM Results for this (NON-FASTING) EST procedure are in the results section. APTT STAT 05/29/2015 12:34 Results for this AM EST procedure are i n the results section. POCT GLUCOSE Routine 05/28/2015 8:17 PM Results f or this EST procedure are i n the results section. APTT STAT 05/28/2015 6:33 PM Results f or this EST procedure are i n the results section. POCT GLUCOSE Routine 05/28/2015 4:44 PM Results f or this EST procedure are i n the results section. APTT STAT 05/28/2015 11:55 Results for this AM EST procedure are i n the results section. POCT GLUCOSE Routine 05/28/2015 11:34 Results for this AM EST procedure are i n the results section. APTT STAT 05/28/2015 10:01 Results for this AM EST procedure are i n the results section. POCT GLUCOSE Routine 05/28/2015 7:20 AM Results f or this EST procedure are i n the results section. HEMOGRAM Routine 05/28/2015 4:14 AM Results f or this EST procedure are i n the results section. DIFFERENTIAL, Routine 05/28/2015 4:14 AM Results for this AUTOMATED EST procedure are i n the results section. APTT Routine 05/28/2015 4:14 AM Results f or this EST procedure are i n the results section. PROTHROMBIN TIME Routine 05/28/2015 4:14 AM Resul ts for this EST procedure are i n the results section. CBC (WITH DIFF) Routine 05/28/2015 4:14 AM EST BASIC METABOLIC PANEL Routine 05/28/2015 4:14 AM Results for this (NON-FASTING) EST procedure are in the results section. APTT STAT 05/27/2015 11:21 Results for this PM EST procedure are i n the results section. POCT GLUCOSE Routine 05/27/2015 8:29 PM Results f or this EST procedure are i n the results section. POCT GLUCOSE Routine 05/27/2015 4:38 PM Results f or this EST procedure are i n the results section. APTT STAT 05/27/2015 4:38 PM Results f or this EST procedure are i n the results section. POCT GLUCOSE Routine 05/27/2015 11:39 Results for this AM EST procedure are i n the results section. APTT STAT 05/27/2015 10:08 Results for this AM EST procedure are i n the results section. POCT GLUCOSE Routine 05/27/2015 7:23 AM Results f or this EST procedure are i n the results section. HEMOGRAM Routine 05/27/2015 5:21 AM Results f or this EST procedure are i n the results section. DIFFERENTIAL, Routine 05/27/2015 5:21 AM Results for this AUTOMATED EST procedure are i n the results section. APTT Routine 05/27/2015 5:21 AM Results f or this EST procedure are i n the results section. CBC (WITH DIFF) Routine 05/27/2015 5:21 AM EST BASIC METABOLIC PANEL Routine 05/27/2015 5:21 AM Results for this (NON-FASTING) EST procedure are in the results section. POCT GLUCOSE Routine 05/26/2015 8:36 PM Results f or this EST procedure are i n the results section. POCT GLUCOSE Routine 05/26/2015 5:18 PM Results f or this EST procedure are i n the results section. RE-OP FOR RE-DO L/E Routine 05/26/2015 3:34 PM PAD (peripheral BYPASS GRAFT, >1 MO EST artery disea se) P\ ORIGINAL SURG, Critical lower limb ADD-ON CODE ischemia PLACE V PAT/CUFF DIST Routine 05/26/2015 3:34 PM PAD (peripher al ANAST BP GFT/SYN EST artery disease) CON/RODRIGUEZ-COL/JEFERSON-PAT/ Critical lower limb +CODE L/E ischemia BYPASS GRAFT, FEM-ANT Routine 05/26/2015 3:34 PM PAD (peripher al TIBIAL, -POST TIBIAL, EST artery dis ease) -PERONEAL, -DP W\ Critical lower limb SYNTHETIC CONDUIT ischemia ENDARTERECTOMY, Routine 05/26/2015 3:34 PM PAD (peripheral ILIOFEMORAL W OR W/O EST artery dise ase) PATCH GRAFT Critical lower limb ischemia POCT GLUCOSE Routine 05/26/2015 2:34 PM Results f or this EST procedure are i n the results section. BLOOD GAS 2 ARTERIAL Routine 05/26/2015 11:24 Res ults for this AM EST procedure are i n the results section. @RE-OP FOR RE-DO Yes 05/26/2015 11:00 PAD (peripheral LOWER EXTREMITY AM EST artery disease) BYPASS GRAFT, >1 Critical lower limb MONTH P\ ORIGINAL ischemia SURGERY, ADD-ON CODE (WRVU 3.08) @ENDARTERECTOMY, Yes 05/26/2015 11:00 PAD (peripheral ILIOFEMORAL W OR W/O AM EST artery dise ase) PATCH GRAFT (WRVU Critical lower limb 19.86) ischemia PLACEMENT VEIN PATCH Yes 05/26/2015 11:00 PAD (peripheral OR CUFF AT DISTAL AM EST artery disease ) ANASTOMOSIS OF BYPASS Critical lower limb GRAFT, SYNTHETIC ischemia CONDUIT , RODRIGUEZ-COLLAR, RACHELLE-PATCH, ADD-ON CODE, LOWER EXTREMITY (WRVU 4.04) @BYPASS GRAFT, Yes 05/26/2015 11:00 PAD (peripheral FEM-ANT TIBIAL, -POST AM EST artery dis ease) TIBIAL, -PERONEAL, Critical lower limb -DP W\ SYNTHETIC ischemia CONDUIT (WRVU 23.66) TYPE AND SCREEN, SDP Routine 05/26/2015 8:15 AM Critical lower limb (FUTURE SURGERY, [facility] [place] ischemia SAME DAY PROGRAM PAD (peripheral ONLY) artery disease) ABO/RH TYPING Routine 05/26/2015 8:15 AM Critical lower limb R esults for this EST ischemia procedure are in PAD (peripheral the results artery disease) section. ANTIBODY SCREEN Routine 05/26/2015 8:15 AM Critical lower limb Results for this EST ischemia procedure are in PAD (peripheral the results artery disease) section. HEMOGRAM Routine 05/26/2015 8:14 AM Critical lower limb Re sults for this EST ischemia procedure are in PAD (peripheral the results artery disease) section. DIFFERENTIAL, Routine 05/26/2015 8:14 AM Critical lower limb R esults for this AUTOMATED EST ischemia procedure are in PAD (peripheral the results artery disease) section. APTT Routine 05/26/2015 8:14 AM Critical lower limb Re sults for this EST ischemia procedure are in PAD (peripheral the results artery disease) section. PROTHROMBIN TIME Routine 05/26/2015 8:14 AM Critical lower tejeda b Results for this EST ischemia procedure are in PAD (peripheral the results artery disease) section. CBC (WITH DIFF) Routine 05/26/2015 8:14 AM Critical lower limb EST ischemia PAD (peripheral artery disease) BASIC METABOLIC PANEL Routine 05/26/2015 8:14 AM Critical lowe r limb Results for this (NON-FASTING) EST ischemia procedure are in PAD (peripheral the results artery disease) section. documented in this encounter Results Unilat Bypass Graft Assess (06/01/2015 8:29 AM EST) Component Value Ref Test Analysis Performed At [facility] [place] gist Range Method Time Signature VB Text Department: Vascular Surgery Lab VASCUBASE Report Patient: [id number] (CHAN PERRY) CPT: 34107 ICD10: I70.622;I73.9 Referring Physician: GLEN DOYLE ?? Indications: ??s/p L RN TELEMETRY endart and fem-DIVERSIFIED CROPS FARMER bypass ICD10 Diagnosis Code: I70.622, I73.9 Findings: Left ?PSV (cm/s) ??EDV ??Location ? Inflow Artery ? 14 ?0 ??Common Femoral Artery, Left ?? Inflow Anastomosis ? Common Femoral Artery, Left ?? Proximal Graft ? 0 ?0 ? Distal Graft ? 0 ?0 ? Outflow Anastomosis ?Left Posterior Tibial Artery ?? Outflow Artery (Graft) ? Left Posterior Tibial Artery ?? Interpretation: Left- Fem-DIVERSIFIED CROPS FARMER bypass graft is occluded. No significant holt e compared to previous exam 05/19/15. Patient being seen in clinic today. Electronically Signed by: MARCIA WRIGHT on 2015-06-01 06:11:2 7 PM VB Text End of Report VASCUBASE Report Specimen (Source) Anatomical Collection Method Collection Time Re ceived Time Location / / Volume Laterality 06/01/2015 8:29 AM EST Glen Doyle MD VASCULAR ORDERABLES Performing Organization Address City/State/ZIP Code Phon e Number [email or web address] SOSA, legs, multiple levels (06/01/2015 8:29 AM EST) Component Value Ref Test Analysis Performed At [facility] Range Method Time Signature VB Text Department: Vascular Surgery Lab VASCUBASE Report Patient: [id number] (CHAN PERRY) CPT: 40153 ICD10: I73.9;I70.622 Referring Physician: GLEN DOYLE ?? Indications: s/p L fem endart and fem-DIVERSIFIED CROPS FARMER bypass Diabetes mellitus: no ICD10 Diagnosis Code: I73.9, I70.622 Definitions: SOSA = Ankle / Brachial Systolic Pressure Index, TBI = Toe / Brachial Systolic Pressure Index. All systolic pressures in this study are derived based on Doppler assessment of blood flow. Findings: Right ?Pressure (mm Hg) ?? SOSA ??Waveform ? TBI ?? Brachial Artery ?151 ? Dorsalis Pedis (Ankle) Arter y ?31 ?0.21 ??Monophasic ? Posterior Tibial (Ankle) Art gregory ??42 ?0.28 ??Monophasic ? Great Toe ?7 ? 0.05 ?? Left ? Pressure (mm Hg) ?? SOSA ??Waveform ? TBI ?? Brachial Artery ?150 ? Dorsalis Pedis (Ankle) Arter y ?13 ?0.09 ??Monophasic ? Posterior Tibial (Ankle) Art gregory ??28 ?0.19 ??Monophasic ? Great Toe ?0 ? 0.00 ?? Interpretation: RIGHT: Severe lower extremity arterial occlusive disease. Si gnificant deterioration compared to previous exam. LEFT: Severe lower extremity arterial oc clusive disease. No significant change compared to previous [...] (-.02) 0.26( .00) ---- ? 0.12(-.65) 0.00(-.43) Current ? 0.21(-.32) 0.2 8(-.27) 0.05(-.21) 0.09 ? 0.19(+.07) 0.00( .00) Electronically Signed by: MARCIA WRIGHT on 2015-06-01 06:13:2 5 PM VB Text End of Report VASCUBASE Report Specimen (Source) Anatomical Collection Method Collection Time Re ceived Time Location / / Volume Laterality 06/01/2015 8:29 AM EST Glen Doyle MD VASCULAR ORDERABLES Performing Organization Address City/State/ZIP Code Phon e Number VASCUBASE SCAN DOC: IMPLANTABLE DEVICES (05/30/2015 12:00 AM EST) Narrative This result has an attachment that is no t available. Scanning Provider MEDIA MGR SCAN EXT ORDR/RSLT SCAN DOC: ECG (05/30/2015 12:00 AM EST) Narrative This result has an attachment that is no t available. Scanning Provider MEDIA MGR SCAN EXT ORDR/RSLT POCT Glucose (05/29/2015 11:33 AM EST) P athologist Signature POC Glucose 185 65 - 199 CERNER mg/dL [facility] Comment: Supplemental ranges: <140 mg/dL before meals <180 mg/dL all other times of the day Specimen Anatomical Collection Method Collection Time Receive d Time (Source) Location / / Volume Laterality Blood specimen 05/29/2015 11:33 5 (specimen) AM EST 11:33 AM EST Glen Doyle MD POINT OF CARE TEST ORDERABLE S Performing Organization Address City/State/ZIP Code Phon e Number [address] CERNER MILLENNIUM (ABNORMAL) POCT Glucose (05/29/2015 7:23 AM EST) athologist Signature POC Glucose 210 (H) 65 - 199 CERNER mg/dL [facility] Comment: Supplemental ranges: <140 mg/dL before meals <180 mg/dL all other times of the day Specimen Anatomical Collection Method Collection Time Receive d Time (Source) Location / / Volume Laterality Blood specimen 05/29/2015 7:23 AM 015 7:23 (specimen) EST AM EST Glen Doyle MD POINT OF CARE TEST ORDERABLE S Performing Organization Address City/State/ZIP Code Phon e Number [address] CERNER MILLENNIUM (ABNORMAL) Differential, Automated (05/29/2015 6:47 AM EST) Patholo gist Method Time Signature Neutrophils % 75.9 % CERNER MILLENNIUM Neutr Abs (ANC) 8.58 (H) 1.50 - CERNER 6.30 MILLENNIUM x10(3)/mc L Lymphocytes % 11.9 % CERNER MILLENNIUM Lymphocytes Abs 1.4 1.0 - 3.6 CERNER x10(3)/mc MILLENNIUM L Monocytes % 10.8 % CERNER MILLENNIUM Monocyte Abs 1.2 (H) 0.2 - 1.0 CERNER x10(3)/mc MILLENNIUM L Eosinophils % 0.9 % CERNER MILLENNIUM Eosinophils Abs 0.1 0.0 [...] Location / / Volume Laterality Blood specimen 05/29/2015 6:47 AM 015 6:52 (specimen) EST AM EST Resulting Agency Comment Spec In Lab Glen Doyle MD HEMATOLOGY ORDERABLES Performing Organization Address City/[facility]/ZIP [place] [address] CERNER MILLENNIUM (ABNORMAL) Hemogram (05/29/2015 6:47 AM EST) P athologist Signature WBC 11.3 (H) 4.0 - 10.0 CERNER x10(3)/mcL [facility]ILLENNIUM RBC 3.62 (L) 3.93 - CERNER 5.22 MILLENNIUM x10(6)/mcL Hemoglobin 11.2 11.2 - CERNER 15.7 gm/dL MILLENNIUM Hematocrit 32.8 (L) 34.0 - CERNER 45.0 % MILLENNIUM MCV 90.6 79.0 - CERNER 94.0 fL MILLENNIUM MCH 30.9 26.6 - CERNER 32.2 pg MILLENNIUM MCHC 34.1 32.0 - CERNER 36.5 gm/dL MILLENNIUM Platelets 196 145 - 370 CERNER x10(3)/mcL MILLENNIUM RDWSD 47.5 (H) 35.0 - CERNER 46.0 fL MILLENNIUM RDWCV 14.2 10.9 - CERNER 14.4 % MILLENNIUM MPV 11.8 9.0 - 12.0 CERNER fL MILLENNIUM Specimen Anatomical Collection Method Collection Time Receive d Time (Source) Location / / Volume Laterality Blood specimen 05/29/2015 6:47 AM 015 6:52 (specimen) EST AM EST Resulting Agency Comment Spec In Lab Glen Doyle MD HEMATOLOGY ORDERABLES Performing Organization Address City/[facility]/ZIP Code Phon e Number [facility] [place] [address] CERNER MILLENNIUM (ABNORMAL) Prothrombin Time (05/29/2015 6:47 AM EST) athologist Signature PT 18.2 (H) 12.0 - 15.0 CERNER sec MILLENNIUM Comment: Transfusion Committee Guidelines: INR less than 2.0, PTT less than OR equal to 43.5 seconds, or Fibrinogen greater t romero or equal to 100 mg/dl indicate adequate procoagulant activity for hemos tasis in patients without underlying bleeding disorders. INR 1.5 (H) 0.9 - 1.1 CERNER MILLENNIUM Specimen Anatomical Collection Method Collection Time Receive d Time (Source) Location / / Volume Laterality Blood specimen 05/29/2015 6:47 AM 015 6:52 (specimen) EST AM EST Resulting Agency Comment Spec In Lab Glen Doyle MD HEMATOLOGY ORDERABLES Performing Organization Address City/State/[place] [address] CERNER MILLENNIUM (ABNORMAL) APTT (05/29/2015 6:47 AM EST) athologist Signature PTT 79 (H) 25 - 35 sec CERNER MILLENNIUM Comment: Recommended therapeutic PTT range for fu ll dose unfractionated heparin is 80-114 seconds. Specimen Anatomical Collection Method Collection Time Receive d Time (Source) Location / / Volume Laterality Blood specimen 05/29/2015 6:47 AM 015 6:52 (specimen) EST AM EST Resulting Agency Comment Spec In Lab Glen Doyle MD HEMATOLOGY ORDERABLES Performing Organization Address City/State/[place] [address] CERNER MILLENNIUM (ABNORMAL) Basic Metabolic Panel (non-fasting) (05/29/2015 6:47 AM EST) P athologist Signature Glucose Lvl 206 (H) 65 - 199 CERNER mg/dL [facility] Comment: Diabetes: >=200 mg/dL plus symp toms BUN 7 (L) 8 - 18 mg/dL CERNER MILLENNIUM Creatinine 0.43 (L) 0.70 - 1.20 mg/dL CERNER MILL ENNIUM Comment: Please note that the pediatric reference intervals supplied above were not validated at [facility]. Results from pediatri c patients should be [...] if there are any qu estions. Chloride 99 98 - 107 mmol/L CERNER MILLENN IUM CO2 24 22 - 31 mmol/L CERNER MILLENNI UM Anion Gap 14 5 - 15 mmol/L CERNER MILLENNIU M Calcium 8.4 (L) 8.5 - 10.5 mg/dL CERNER KINGSLEY [...] the following links into your internet browser. [email or web address] Specimen Anatomical Collection Method Collection Time Receive d Time (Source) Location / / Volume Laterality Blood specimen 05/29/2015 6:47 AM 015 6:52 (specimen) EST AM EST Resulting Agency Comment Spec In Lab Glen Doyle MD CHEMISTRY ORDERABLES Performing Organization Address City/State/Z[place] [address] CERNER MILLENNIUM (ABNORMAL) APTT (05/29/2015 12:34 AM EST) athologist Signature PTT 98 (H) 25 - 35 sec CERNER MILLENNIUM Comment: Recommended therapeutic PTT range for fu ll dose unfractionated heparin is 80-114 seconds. Specimen Anatomical Collection Method Collection Time Receive d Time (Source) Location / / Volume Laterality Blood specimen 05/29/2015 12:34 5 (specimen) AM EST 12:41 AM EST Resulting Agency Comment Spec In Lab Glen Doyle MD HEMATOLOGY ORDERABLES Performing Organization Address City/[facility]/[place] [address] CERNER MILLENNIUM (ABNORMAL) POCT Glucose (05/28/2015 8:17 PM EST) P athologist Signature POC Glucose 200 (H) 65 - 199 CERNER mg/dL [facility]ILLENNIUM Comment: Supplemental ranges: <140 mg/dL before meals <180 mg/dL all other times of the day Specimen Anatomical Collection Method Collection Time Receive d Time (Source) Location / / Volume Laterality Blood specimen 05/28/2015 8:17 PM 015 8:17 (specimen) EST PM EST Glen Doyle MD POINT OF CARE TEST ORDERABLE S Performing Organization Address City/[facility] Phon e Number [address] CERNER MILLENNIUM (ABNORMAL) APTT (05/28/2015 6:33 PM EST) P athologist Signature PTT 102 (H) 25 - 35 sec CERNER MILLENNIUM Comment: Recommended therapeutic PTT range for fu ll dose unfractionated heparin is 80-114 seconds. Specimen Anatomical Collection Method Collection Time Receive d Time (Source) Location / / Volume Laterality Blood specimen 05/28/2015 6:33 PM 015 6:37 (specimen) EST PM EST Resulting Agency Comment Spec In Lab Glen Doyle MD HEMATOLOGY ORDERABLES Performing Organization Address City/[facility]/ZIP Code Phon e Number [address] CERNER MILLENNIUM POCT Glucose (05/28/2015 4:44 PM EST) P athologist Signature POC Glucose 190 65 - 199 CERNER mg/dL [facility]NIUM Comment: Supplemental ranges: <140 mg/dL before meals <180 mg/dL all other times of the day Specimen Anatomical Collection Method Collection Time Receive d Time (Source) Location / / Volume Laterality Blood specimen 05/28/2015 4:44 PM 015 4:44 (specimen) EST PM EST Glen Doyle MD POINT OF CARE TEST ORDERABLE S Performing Organization Address City/State/[place] [address] CERNER MILLENNIUM (ABNORMAL) APTT (05/28/2015 11:55 AM EST) P athologist Signature PTT 72 (H) 25 - 35 sec CERNER MILLENNIUM Comment: Recommended therapeutic PTT range for fu ll dose unfractionated heparin is 80-114 seconds. Specimen Anatomical Collection Method Collection Time Receive d Time (Source) Location / / Volume Laterality Blood specimen 05/28/2015 11:55 5 (specimen) AM EST 12:15 PM EST Resulting Agency Comment Spec In Lab Glen Doyle MD HEMATOLOGY ORDERABLES Performing Organization Address City/State/ZIP Code Phon e Number [address] CERNER MILLENNIUM (ABNORMAL) POCT Glucose (05/28/2015 11:34 AM EST) P athologist Signature POC Glucose 233 (H) 65 - 199 CERNER mg/dL [facility]UM Comment: Supplemental ranges: <140 mg/dL before meals <180 mg/dL all other times of the day Specimen Anatomical Collection Method Collection Time Receive d Time (Source) Location / / Volume Laterality Blood specimen 05/28/2015 11:34 5 (specimen) AM EST 11:34 AM EST Glen Doyle MD POINT OF CARE TEST ORDERABLE S Performing Organization Address City/State/ZIP Code Phon e Number [address] CERNER MILLENNIUM (ABNORMAL) APTT (05/28/2015 10:01 AM EST) P athologist Signature PTT 70 (H) 25 - 35 sec CERNER MILLENNIUM Comment: Recommended therapeutic PTT range for fu ll dose unfractionated heparin is 80-114 seconds. Specimen Anatomical Collection Method Collection Time Receive d Time (Source) Location / / Volume Laterality Blood specimen 05/28/2015 10:01 5 (specimen) AM EST 10:10 AM EST Resulting Agency Comment Spec In Lab Glen Doyle MD HEMATOLOGY ORDERABLES Performing Organization Address City/State/ZIP Code Phon e Number [address] CERNER MILLENNIUM (ABNORMAL) POCT Glucose (05/28/2015 7:20 AM EST) P athologist Signature POC Glucose 209 (H) 65 - 199 CERNER mg/dL [facility]UM Comment: Supplemental ranges: <140 mg/dL before meals <180 mg/dL all other times of the day Specimen Anatomical Collection Method Collection Time Receive d Time (Source) Location / / Volume Laterality Blood specimen 05/28/2015 7:20 AM 015 7:20 (specimen) EST AM EST Glen Doyle MD POINT OF CARE TEST ORDERABLE S Performing Organization Address City/[facility]/ZIP Code Phon e Number [address] CERNER MILLENNIUM (ABNORMAL) Differential, Automated (05/28/2015 4:14 AM EST) [facility] Method Time Signature Neutrophils % 74.0 % CERNER MILLENNIUM Neutr Abs (ANC) 7.52 (H) 1.50 - CERNER 6.30 MILLENNIUM x10(3)/mc L Lymphocytes % 13.3 % CERNER MILLENNIUM Lymphocytes Abs 1.4 1.0 - 3.6 CERNER x10(3)/mc MILLENNIUM L Monocytes % 11.8 % CERNER MILLENNIUM Monocyte Abs 1.2 (H) 0.2 - 1.0 CERNER x10(3)/mc MILLENNIUM L Eosinophils % 0.5 % CERNER MILLENNIUM Eosinophils Abs 0.0 0.0 [...] Location / / Volume Laterality Blood specimen 05/28/2015 4:14 AM 015 4:28 (specimen) EST AM EST Resulting Agency Comment Spec In Lab Glen Doyle MD HEMATOLOGY ORDERABLES Performing Organization Address City/State/ZIP Code Phon e Number [place] [id number] CERNER MILLENNIUM (ABNORMAL) Hemogram (05/28/2015 4:14 AM EST) P athologist Signature WBC 10.2 (H) 4.0 - 10.0 CERNER x10(3)/mcL MILLENNIUM RBC 3.46 (L) 3.93 - CERNER 5.22 MILLENNIUM x10(6)/mcL Hemoglobin 10.6 (L) 11.2 - CERNER 15.7 gm/dL MILLENNIUM Hematocrit 31.7 (L) 34.0 - CERNER 45.0 % MILLENNIUM MCV 91.6 79.0 - CERNER 94.0 fL MILLENNIUM MCH 30.6 26.6 - CERNER 32.2 pg MILLENNIUM MCHC 33.4 32.0 - CERNER 36.5 gm/dL MILLENNIUM Platelets 173 145 - 370 CERNER x10(3)/mcL MILLENNIUM RDWSD 46.3 (H) 35.0 - CERNER 46.0 fL MILLENNIUM RDWCV 13.9 10.9 - CERNER 14.4 % MILLENNIUM MPV 11.7 9.0 - 12.0 CERNER fL MILLENNIUM Specimen Anatomical Collection Method Collection Time Receive d Time (Source) Location / / Volume Laterality Blood specimen 05/28/2015 4:14 AM 015 4:28 (specimen) EST AM EST Resulting Agency Comment Spec In Lab Glen Doyle MD HEMATOLOGY ORDERABLES Performing Organization Address City/[facility]/ZIP Code Phon e Number [address] [facility] (ABNORMAL) Prothrombin Time (05/28/2015 4:14 AM EST) athologist Signature PT 16.7 (H) 12.0 - 15.0 [facility] Comment: Transfusion Committee Guidelines: INR less than 2.0, PTT less than OR equal to 43.5 seconds, or Fibrinogen greater t romero or equal to 100 mg/dl indicate adequate procoagulant activity for hemos tasis in patients without underlying bleeding disorders. INR 1.3 (H) 0.9 - 1.1 [facility] Specimen Anatomical Collection Method Collection Time Receive d Time (Source) Location / / Volume Laterality Blood specimen 05/28/2015 4:14 AM 015 4:28 (specimen) EST AM EST Resulting Agency Comment Spec In Lab Glen Doyle MD HEMATOLOGY ORDERABLES Performing Organization Address City/[facility]/ZIP Code Phon e Number [address] [facility] (ABNORMAL) APTT (05/28/2015 4:14 AM EST) athologist Signature PTT 96 (H) 25 - 35 sec [facility] Comment: Recommended therapeutic PTT range for fu ll dose unfractionated heparin is 80-114 seconds. Specimen Anatomical Collection Method Collection Time Receive d Time (Source) Location / / Volume Laterality Blood specimen 05/28/2015 4:14 AM 015 4:28 (specimen) EST AM EST Resulting Agency Comment Spec In Lab Glen Doyle MD HEMATOLOGY ORDERABLES Performing Organization Address City/[facility]/ZIP Code Phon e Number [address] [facility] (ABNORMAL) Basic Metabolic Panel (non-fasting) (05/28/2015 4:14 AM EST) athologist Signature Glucose Lvl 194 65 - 199 CERNER mg/dL MILLENNIUM Comment: Diabetes: >=200 mg/dL plus symp toms BUN 5 (L) 8 - 18 mg/dL CERNER MILLENNIUM Creatinine 0.39 (L) 0.70 - 1.20 mg/dL CERNER MILL ENNIUM Comment: Please note that the pediatric reference intervals supplied above were not validated at [facility]. Results from pediatri c patients should be [...] the following links into your internet browser. [email or web address] Specimen Anatomical Collection Method Collection Time Receive d Time (Source) Location / / Volume Laterality Blood specimen 05/28/2015 4:14 AM 015 4:28 (specimen) EST AM EST Resulting Agency Comment Spec In Lab Glen Doyle MD CHEMISTRY ORDERABLES Performing Organization Address City/State/ZIP [place] [address] [facility] [address] [facility]) APTT (05/27/2015 11:21 PM EST) athologist Signature PTT >160.0 25 - 35 CERNER (Critical) [facility] Comment: Called by: [facility], Read back by: migue fong, Date/Time:05/28/15 00:14. Recommended therapeutic PTT range for fu ll dose unfractionated heparin is 80-114 seconds. Specimen Anatomical Collection Method Collection Time Receive d Time (Source) Location / / Volume Laterality Blood specimen 05/27/2015 11:21 5 (specimen) PM EST 11:26 PM EST Resulting Agency Comment Spec In Lab Glen Doyle MD HEMATOLOGY ORDERABLES Performing Organization Address City/State/ZIP Code Phon e Number [address] [facility] POCT Glucose (05/27/2015 8:29 PM EST) athologist Signature POC Glucose 176 65 - 199 CERNER mg/dL [facility] Comment: Supplemental ranges: <140 mg/dL before meals <180 mg/dL all other times of the day Specimen Anatomical Collection Method Collection Time Receive d Time (Source) Location / / Volume Laterality Blood specimen 05/27/2015 8:29 PM 015 8:29 (specimen) EST PM EST Glen Doyle MD POINT OF CARE TEST ORDERABLE S Performing Organization Address City/State/ZIP Code Phon e Number [address] [facility] POCT Glucose (05/27/2015 4:38 PM EST) athologist Signature POC Glucose 223 (H) 65 - 199 CERNER mg/dL [facility] Comment: Supplemental ranges: <140 mg/dL before meals <180 mg/dL all other times of the day Specimen Anatomical Collection Method Collection Time Receive d Time (Source) Location / / Volume Laterality Blood specimen 05/27/2015 4:38 PM 015 4:38 (specimen) EST PM EST Glen Doyle MD POINT OF CARE TEST ORDERABLE S Performing Organization Address City/State/[place] [address] CERNER MILLENNIUM (ABNORMAL) APTT (05/27/2015 4:38 PM EST) P athologist Signature PTT 77 (H) 25 - 35 sec CERNER MILLENNIUM Comment: Recommended therapeutic PTT range for fu ll dose unfractionated heparin is 80-114 seconds. Specimen Anatomical Collection Method Collection Time Receive d Time (Source) Location / / Volume Laterality Blood specimen 05/27/2015 4:38 PM 015 5:20 (specimen) EST PM EST Resulting Agency Comment Spec In Lab Glen Doyle MD HEMATOLOGY ORDERABLES Performing Organization Address City/[facility]/[place] [address] CERNER MILLENNIUM (ABNORMAL) POCT Glucose (05/27/2015 11:39 AM EST) P athologist Signature POC Glucose 208 (H) 65 - 199 CERNER mg/dL [facility] Comment: Supplemental ranges: <140 mg/dL before meals <180 mg/dL all other times of the day Specimen Anatomical Collection Method Collection Time Receive d Time (Source) Location / / Volume Laterality Blood specimen 05/27/2015 11:39 5 (specimen) AM EST 11:39 AM EST Glen Doyle MD POINT OF CARE TEST ORDERABLE S Performing Organization Address City/[facility]/[place] [address] CERNER MILLENNIUM (ABNORMAL) APTT (05/27/2015 10:08 AM EST) P athologist Signature PTT 41 (H) 25 - 35 sec CERNER MILLENNIUM Comment: Recommended therapeutic PTT range for fu ll dose unfractionated heparin is 80-114 seconds. Specimen Anatomical Collection Method Collection Time Receive d Time (Source) Location / / Volume Laterality Blood specimen 05/27/2015 10:08 5 (specimen) AM EST 10:19 AM EST Resulting Agency Comment Spec In Lab Glen Doyle MD HEMATOLOGY ORDERABLES Performing Organization Address City/State/ZIP Code Phon e Number [address] CERNER MILLENNIUM POCT Glucose (05/27/2015 7:23 AM EST) P athologist Signature POC Glucose 187 65 - 199 CERNER mg/dL MILL[facility]UM Comment: Supplemental ranges: <140 mg/dL before meals <180 mg/dL all other times of the day Specimen Anatomical Collection Method Collection Time Receive d Time (Source) Location / / Volume Laterality Blood specimen 05/27/2015 7:23 AM 015 7:23 (specimen) EST AM EST Glen Doyle MD POINT OF CARE TEST ORDERABLE S Performing Organization Address City/State/ZIP Code Phon e Number [address] CERNER MILLENNIUM (ABNORMAL) Differential, Automated (05/27/2015 5:21 AM EST) Patholo gist Method Time Signature Neutrophils % 77.6 % CERNER MILLENNIUM Neutr Abs (ANC) 6.67 (H) 1.50 - CERNER 6.30 MILLENNIUM x10(3)/mc L Lymphocytes % 12.6 % CERNER MILLENNIUM Lymphocytes Abs 1.1 1.0 - 3.6 CERNER x10(3)/mc MILLENNIUM L Monocytes % 8.6 % CERNER MILLENNIUM Monocyte Abs 0.7 0.2 - 1.0 CERNER x10(3)/mc MILLENNIUM L Eosinophils % 1.0 % CERNER MILLENNIUM Eosinophils Abs 0.1 0.0 - 0.5 CERNER x10(3)/mc MILLENNIUM L Basophils % 0.1 % CERNER MILLENNIUM Basophils Abs 0.0 0.0 - 0.2 CERNER x10(3)/mc MILLENNIUM L Immature Gran % 0.10 % CERNER MILLENNIUM Comment: Immature granulocytes(IG's)percentage an d absolute count will include metamyelocytes, myelocytes, and promyelo cytes. Blood smears from CBCs yielding IG's will be scanned manually for concor dance. If this scan disagrees with the automated IG or if promyelocytes are not ed, a manual differential will be performed. Rosenda Gran Abs 0.01 0.00 - 0.05 x10(3)/mcL CER NER MILLENNIUM Specimen Anatomical Collection Method Collection Time Receive d Time (Source) Location / / Volume Laterality Blood specimen 05/27/2015 5:21 AM 015 5:27 (specimen) EST AM EST Resulting Agency Comment Spec In Lab Glen Doyle MD HEMATOLOGY ORDERABLES Performing Organization Address City/[facility]/ZIP Code Phon e Number [address] CERNER MILLENNIUM (ABNORMAL) Hemogram (05/27/2015 5:21 AM EST) P athologist Signature WBC 8.6 4.0 - 10.0 CERNER x10(3)/mcL MILLENNIUM RBC 3.55 (L) 3.93 - CERNER 5.22 MILLENNIUM x10(6)/mcL Hemoglobin 10.9 (L) 11.2 - CERNER 15.7 gm/dL MILLENNIUM Hematocrit 33.1 (L) 34.0 - CERNER 45.0 % MILLENNIUM MCV 93.2 79.0 - CERNER 94.0 fL MILLENNIUM MCH 30.7 26.6 - CERNER 32.2 pg MILLENNIUM MCHC 32.9 32.0 - CERNER 36.5 gm/dL MILLENNIUM Platelets 170 145 - 370 CERNER x10(3)/mcL MILLENNIUM RDWSD 48.2 (H) 35.0 - CERNER 46.0 fL MILLENNIUM RDWCV 14.1 10.9 - CERNER 14.4 % MILLENNIUM MPV 11.5 9.0 - 12.0 CERNER fL MILLENNIUM Specimen Anatomical Collection Method Collection Time Receive d Time (Source) Location / / Volume Laterality Blood specimen 05/27/2015 5:21 AM 015 5:27 (specimen) EST AM EST Resulting Agency Comment Spec In Lab Glen Doyle MD HEMATOLOGY ORDERABLES Performing Organization Address City/[facility]/[place] [address] CERNER MILLENNIUM (ABNORMAL) APTT (05/27/2015 5:21 AM EST) athologist Signature PTT 42 (H) 25 - 35 sec CERNER MILLENNIUM Comment: Recommended therapeutic PTT range for fu ll dose unfractionated heparin is 80-114 seconds. Specimen Anatomical Collection Method Collection Time Receive d Time (Source) Location / / Volume Laterality Blood specimen 05/27/2015 5:21 AM 015 5:27 (specimen) EST AM EST Resulting Agency Comment Spec In Lab Glen Doyle MD HEMATOLOGY ORDERABLES Performing Organization Address City/State/ZIP [place] [address] CERNER MILLENNIUM (ABNORMAL) Basic Metabolic Panel (non-fasting) (05/27/2015 5:21 AM EST) athologist Signature Glucose Lvl 195 65 - 199 CERNER mg/dL MILLENNIUM Comment: Diabetes: >=200 mg/dL plus symp toms BUN 6 (L) 8 - 18 mg/dL CERNER MILLENNIUM Creatinine 0.48 (L) 0.70 - 1.20 mg/dL CERNER MILL ENNIUM Comment: Please note that the pediatric reference intervals supplied above were not validated at [facility]. Results from pediatri c patients should be [...] if there are any qu estions. Chloride 99 98 - 107 mmol/L CERNER MILLENN IUM CO2 25 22 - 31 mmol/L CERNER MILLENNI UM Anion Gap 10 5 - 15 mmol/L CERNER MILLENNIU M Calcium 7.6 (L) 8.5 - 10.5 mg/dL CERNER KINGSLEY [...] the following links into your internet browser. [email or web address] [email or web address] Specimen Anatomical Collection Method Collection Time Receive d Time (Source) Location / / Volume Laterality Blood specimen 05/27/2015 5:21 AM 015 5:27 (specimen) EST AM EST Resulting Agency Comment Spec In Lab Glen Doyle MD CHEMISTRY ORDERABLES Performing Organization Address City/[facility] Phon e Number [address] CERNER MILLENNIUM POCT Glucose (05/26/2015 8:36 PM EST) P athologist Signature POC Glucose 180 65 - 199 CERNER mg/dL MILLENNIUM Comment: Supplemental ranges: <140 mg/dL before meals <180 mg/dL all other times of the day Specimen Anatomical Collection Method Collection Time Receive d Time (Source) Location / / Volume Laterality Blood specimen 05/26/2015 8:36 PM 015 8:36 (specimen) EST PM EST Glen Doyle MD POINT OF CARE TEST ORDERABLE S Performing Organization Address City/[facility]/ZIP Code Phon e Number [address] CERNER MILLENNIUM POCT Glucose (05/26/2015 5:18 PM EST) P athologist Signature POC Glucose 179 65 - 199 CERNER mg/dL MILLENNIUM Comment: Supplemental ranges: <140 mg/dL before meals <180 mg/dL all other times of the day Specimen Anatomical Collection Method Collection Time Receive d Time (Source) Location / / Volume Laterality Blood specimen 05/26/2015 5:18 PM 015 5:18 (specimen) EST PM EST Glen Doyle MD POINT OF CARE TEST ORDERABLE S Performing Organization Address City/[facility]/ZIP [place] [address] CERNER MILLENNIUM POCT Glucose (05/26/2015 2:34 PM EST) P athologist Signature POC Glucose 161 65 - 199 CERNER mg/dL MILLENNIUM Comment: Supplemental ranges: <140 mg/dL before meals <180 mg/dL all other times of the day Specimen Anatomical Collection Method Collection Time Receive d Time (Source) Location / / Volume Laterality Blood specimen 05/26/2015 2:34 PM 015 2:34 (specimen) EST PM EST Glen Doyle MD POINT OF CARE TEST ORDERABLE S Performing Organization Address City/State/ZIP Code Phon e Number [address] CERNER MILLENNIUM (ABNORMAL) BLOOD GAS 2 ARTERIAL (05/26/2015 11:24 AM EST) Analysis Performed At Patho logist Time Signature pH Art 7.50 (H) CERNER MILLENNIUM pCO2 Art 33 (L) mmHg CERNER MILLENNIUM pO2 Art 316 (H) mmHg CERNER MILLENNIUM HCO3 Art 25.3 mmol/L CERNER MILLENNIUM BE Art 2.2 mmol/L CERNER MILLENNIUM Hgb Blood Gas 12.2 gm/dL CERNER MILLENNIUM O2HB Art 97.6 (H) % CERNER MILLENNIUM COHB Art 1.8 % CERNER MILLENNIUM Comment: Nonsmokers: 0.5-1.5% COHB Smokers: Variable, but usually less than 10% Toxic: 20-30% COHB Lethal: Greater than 60% COHB METHB Art 0.3 % CERNER MILLENNIUM Na Whole Blood 139 mmol/L CERNER MILLENNI UM K Whole Blood 3.6 mmol/L CERNER MILLENNIU M Comment: Please note: Patients with WBC >100,000 may have falsely elevated Potassium levels. Contact the Clinical Chemistry L aboratory if there are any questions. ICa Whole Blood 1.15 (L) mmol/L CERNER MILLENN IUM Comment: Note: ??Total bilirubin higher than 20 m g/dL may lead to falsely low ionized calcium. CL Whole Blood 106 mmol/L CERNER MILLENNI UM Gluc Whole Bld 178 mg/dL CERNER MILLENNI UM Comment: Diabetes: >=200 mg/dL plus symp toms. Specimen Anatomical Collection Method Collection Time Receive d Time (Source) Location / / Volume Laterality Blood specimen 05/26/2015 11:24 5 (specimen) AM EST 11:24 AM EST Glen Doyle MD CHEMISTRY ORDERABLES Performing Organization Address City/[facility]/[place] [address] [facility] MILLEN[facility]UM Antibody screen (05/26/2015 8:15 AM EST) [facility] Method Time Signature Ab Screen Negative [facility] Inter MILLENNIUM Expires at 05/29/2015 DANIEL [id number] on: MILLENNIUM Specimen Anatomical Collection Method Collection Time Receive d Time (Source) Location / / Volume Laterality Blood specimen 05/26/2015 8:15 AM 015 8:17 (specimen) EST AM EST Resulting Agency Comment Spec In Lab Glen Doyle MD BLOOD BANK ORDERABLES Performing Organization Address City/[facility]/ZIP Code Phon e Number [address] [facility] MILLENNIUM ABO/Rh Typing (05/26/2015 8:15 AM EST) P athologist Signature ABORh Type [facility] Neg [facility] Specimen Anatomical Collection Method Collection Time Receive d Time (Source) Location / / Volume Laterality Blood specimen 05/26/2015 8:15 AM 015 8:17 (specimen) EST AM EST Resulting Agency Comment Spec In Lab Glen Doyle MD BLOOD BANK ORDERABLES Performing Organization Address City/[facility]/ZIP Code Phon e Number [address] [facility] Differential, Automated (05/26/2015 8:14 AM EST) P athologist Signature Neutrophils % 70.6 % [facility] MILLENNIUM Neutr Abs (ANC) 4.68 1.50 - CERNER 6.30 MILLENNIUM x10(3)/mcL Lymphocytes % 19.9 % [facility] MILLENNIUM Lymphocytes Abs 1.3 1.0 - 3.6 CERNER x10(3)/mcL MILLENNIUM Monocytes % 6.8 % CERNER MILLENNIUM Monocyte Abs 0.4 0.2 - 1.0 CERNER x10(3)/mcL MILLENNIUM Eosinophils % 2.3 % CERNER MILLENNIUM Eosinophils Abs 0.2 0.0 - 0.5 CERNER x10(3)/mcL MILLENNIUM Basophils % 0.2 % CERNER MILLENNIUM Basophils [...] differential will be performed. Rosenda Gran Abs 0.01 0.00 - 0.05 x10(3)/mcL CER NER MILLENNIUM Specimen Anatomical Collection Method Collection Time Receive d Time (Source) Location / / Volume Laterality Blood specimen 05/26/2015 8:14 AM 015 8:21 (specimen) EST AM EST Resulting Agency Comment Spec In Lab Glen Doyle MD HEMATOLOGY ORDERABLES Performing Organization Address City/State/ZIP [place] [address] CERNER MILLENNIUM Hemogram (05/26/2015 8:14 AM EST) P athologist Signature WBC 6.6 4.0 - 10.0 CERNER x10(3)/mcL MILLENNIUM RBC 4.21 3.93 - 5.22 CERNER x10(6)/mcL MILLENNIUM Hemoglobin 13.0 11.2 - 15.7 CERNER gm/dL MILLENNIUM Hematocrit 38.5 34.0 - 45.0 CERNER % MILLENNIUM MCV 91.4 79.0 - 94.0 CERNER fL MILLENNIUM MCH 30.9 26.6 - 32.2 CERNER pg MILLENNIUM MCHC 33.8 32.0 - 36.5 CERNER gm/dL MILLENNIUM Platelets 240 145 - 370 CERNER x10(3)/mcL MILLENNIUM RDWSD 45.6 35.0 - 46.0 CERNER fL MILLENNIUM RDWCV 13.9 10.9 - 14.4 CERNER % MILLENNIUM MPV 11.7 9.0 - 12.0 CERNER fL MILLENNIUM Specimen Anatomical Collection Method Collection Time Receive d Time (Source) Location / / Volume Laterality Blood specimen 05/26/2015 8:14 AM 015 8:21 (specimen) EST AM EST Resulting Agency Comment Spec In Lab Glen Doyle MD HEMATOLOGY ORDERABLES Performing Organization Address City/State/ZIP Code Phon e Number [place] [phone] CERNER MILLENNIUM (ABNORMAL) Basic Metabolic Panel (non-fasting) (05/26/2015 8:14 AM EST) P athologist Signature Glucose Lvl 202 (H) 65 - 199 CERNER mg/dL MILLENNIUM Comment: Diabetes: >=200 mg/dL plus symp toms BUN 11 8 - 18 mg/dL CERNER MILLENNIUM Creatinine 0.55 (L) 0.70 - 1.20 mg/dL CERNER MILL ENNIUM Comment: Please note that the pediatric reference intervals supplied above were not validated at [facility]. Results from pediatri c patients should be interpreted in conjunction to the patient's age, height and muscle mass. Sodium 141 135 - 145 mmol/L CERNER KINGSLEY NIUM Potassium 4.2 3.5 - 5.0 mmol/L CERNER [...] - 15 mmol/L CERNER MILLENNIU M Calcium 9.3 8.5 - 10.5 mg/dL CERNER KINGSLEY NIUM [...] the following links into your internet browser. [email or web address] [email or web address] Specimen Anatomical Collection Method Collection Time Receive d Time (Source) Location / / Volume Laterality Blood specimen 05/26/2015 8:14 AM 8:21 (specimen) EST AM EST Resulting Agency Comment Spec In Lab Glen Doyel MD CHEMISTRY ORDERABLES Performing Organization Address City/[facility] Phon e Number [address] CERNER MILLENNIUM APTT (05/26/2015 8:14 AM EST) P athologist Signature PTT 28 25 - 35 sec CERNER MILLENNIUM Comment: Recommended therapeutic PTT range for fu ll dose unfractionated heparin is 80-114 seconds. Specimen Anatomical Collection Method Collection Time Receive d Time (Source) Location / / Volume Laterality Blood specimen 05/26/2015 8:14 AM 015 8:21 (specimen) EST AM EST Resulting Agency Comment Spec In Lab Glen Doyle MD HEMATOLOGY ORDERABLES Performing Organization Address City/[facility] [place] [address] CERNER MILLENNIUM Prothrombin Time (05/26/2015 8:14 AM EST) P athologist Signature PT 14.9 12.0 - 15.0 CERNER sec MILLENNIUM Comment: Transfusion Committee Guidelines: INR less than 2.0, PTT less than OR equal to 43.5 seconds, or Fibrinogen greater t romero or equal to 100 mg/dl indicate adequate procoagulant activity for hemos tasis in patients without underlying bleeding disorders. INR 1.1 0.9 - 1.1 CERNER MILLENNIUM Specimen Anatomical Collection Method Collection Time Receive d Time (Source) Location / / Volume Laterality Blood specimen 05/26/2015 8:14 AM 015 8:21 (specimen) EST AM EST Resulting Agency Comment Spec In Lab Glen Doyle MD HEMATOLOGY ORDERABLES Performing Organization Address City/State/ZIP Code Phon e Number [facility] [place] [address] [facility] documented in this encounter Visit Diagnoses Diagnosis Critical lower limb ischemia Unspecified circulatory system disorder PAD (peripheral artery disease) Peripheral vascular disease, unspecified Claudication Peripheral vascular disease, unspecified Non-healing ulcer of foot Ulcer of other part of foot documented in this encounter Administered Medications Inactive Administered Medications - up to 3 most recent administrations Medication Order MAR Action Action Date Dose Rate Site acetaminophen (TYLENOL) tablet 325 Given 05/29/2015 7:48 AM EST 325 mg mg 325 mg, Oral, EVERY 4 HOURS PRN, Starting on Yadira 05/26/15 at 1445, Until 05/29/15 at 1551, Pain, Maximum dose of acetaminophen is 4000 mg from all sources in 24 hours., Routine Given 05/28/2015 7:56 PM EST 325 mg Given 05/28/2015 12:18 PM EST 325 mg aspirin chewable tablet 81 mg Given 05/26/2015 8:40 AM EST 81 mg 81 mg, Oral, ONCE PRN, 1 dose, Starting on Yadira 05/26/15 at 0829, Until Yadira 05/26/15 at 0840, If not already taken on day of surgery., Day of Surgery (Day of Procedure), Routine aspirin EC tablet 81 mg Given 05/29/2015 9:18 AM EST 81 mg 81 mg, Oral, DAILY, First dose on Sat05/27/15 at 0900, Until Discontinued, Routine Given 05/28/2015 9:08 AM EST 81 mg Given 05/27/2015 9:06 AM EST 81 mg ceFAZolin (ANCEF) 1g in dextrose 5% Given 05/27/2015 4:13 AM EST 1,000 mg 100 mL/hr 50mL 1,000 mg (1 g), Intravenous, EVERY 8 HOURS, 2 doses, First dose on Yadira 05/26/15 at 1515, Last dose on Yadira 05/26/15 at 2315, Administer over 30 Minutes, Redose after 4 hours, Recovery (Recovery-Hospital Unit), Indication for (Active or Suspected): Prophylaxis Given 05/26/2015 7:56 PM EST 1,000 mg 100 mL/hr enoxaparin (LOVENOX) injection 50 mg Given 05/29/2015 9:20 AM EST 50 mg 50 mg (1 mg/kg/dose ? 50 kg), Subcutaneous, ONCE, 1 dose, On Sat05/29/15 at 0900, Routine gabapentin (NEURONTIN) capsule 300 mg Given 05/29/2015 9:18 AM EST 300 mg 300 mg, Oral, 3 TIMES DAILY, First dose on Yadira 05/26/15 at 2200, Until Discontinued, Routine Given 05/28/2015 9:12 PM EST 300 mg Given 05/28/2015 2:51 PM EST 300 mg heparin 25,000 units in New Bag 05/26/2015 5:20 PM EST 500 Units/h r 10 mL/hr dextrose 5% 500 mL infusion 500 Units/hr (10 mL/hr), Intravenous, CONTINUOUS, Starting on Yadira 05/26/15 at 1730, Until Sat05/27/15 at 0914, Run at 500 units/hr - do not adjust., Routine heparin 25,000 units in New Bag 05/29/2015 5:53 AM EST 950 Units/h r 19 mL/hr dextrose 5% 500 mL infusion 500-7,000 Units/hr (10-140 mL/hr), Intravenous, CONTINUOUS, Starting on Sat05/27/15 at 0930, Until Sat05/29/15 at 0726, Patient Weight 45-49 kg Initial dose - 700 units/hr = 14 mL/hr aPTT less than 60 sec - [...] than 145 sec X 2 - call hothouse worker See Bolus dosing guidance for aPTT values less than 80 seconds under PRN medications Repeat aPTT 6 hours after initiating heparin. Then 6 hours after each dose adjustment. When 2 consecutive aPTT within target range of 80 - 114 seconds, change aPTT to once every 24 hours with A.M. labs while on heparin. RN to order required aPTT - Per Protocol, Routine Rate/Dose Verify 05/28/2015 6:00 PM EST 950 Units/hr 19 mL/hr Rate/Dose Change 05/28/2015 12:37 PM EST 950 Units/hr 19 mL/hr HYDROmorphone (DILAUDID) syringe 0.2-0.4 mg Given 05/26/2015 3:46 PM EST 0.4 mg 0.2-0.4 mg, Intravenous, EVERY 5 MIN PRN, Pain, Starting on Yadira 05/26/15 at 1402, Until Yadira 05/26/15 at 1651, For moderate pain (4-6) give: 0.2 mg every 5 minute prn For severe pain (7-10) give: 0.4 mg every 5 minutes prn Maximum dose: 4 mg per hour Hold for respiratory rate less than 10 per minute., PACU Recovery Given 05/26/2015 3:28 PM EST 0.4 mg Given 05/26/2015 3:11 PM EST 0.4 mg insulin aspart (NovoLOG) Given 05/29/2015 11:50 AM EST 2 Units Right Lower Quadrant VIAL injection 1-4 Units 1-4 Units, Subcutaneous, 3 TIMES DAILY BEFORE MEALS, First dose on Yadira 05/26/15 at 1630, Until Discontinued, CORRECTION BOLUS Sensitive to insulin [...] no insulin and resume prior schedule. Given 05/29/2015 7:32 AM EST 3 Units Right Lower Quadrant Given 05/28/2015 4:53 PM EST 2 Units lactated ringers infusion 1,000 New Bag 05/26/2015 9:30 AM EST 1,000 mLs 100 mL/hr mL 1,000 mL, at 100 mL/hr, Intravenous, CONTINUOUS, Starting on Yadira 05/26/15 at 0845, Until Sat05/26/15 at 1651, Day of Surgery (Day of Procedure) lisinopril (PRINIVIL;ZESTRIL) tablet 5 m g Given 05/29/2015 9:18 AM EST 5 mg 5 mg, Oral, DAILY, First dose on Sat05/27/15 at 0900, Until Discontinued, Routine Given 05/28/2015 9:10 AM EST 5 mg Given 05/27/2015 9:06 AM EST 5 mg metFORMIN (GLUCOPHAGE) tablet 1,000 mg Given 05/29/2015 7:48 AM EST 1,000 mg 1,000 mg, Oral, 2 TIMES DAILY WITH MEALS, First dose on Sat05/27/15 at 0800, Until Discontinued, Routine Given 05/28/2015 4:53 PM EST 1,000 mg Given 05/28/2015 7:46 AM EST 1,000 mg meTOPROLOL succinate (TOPROL-XL) XL tablet 25 Given 9:17 AM EST 25 mg mg 25 mg, Oral, DAILY, First dose on Sat05/27/15 at 0900, Until Discontinued, Routine Given 05/28/2015 9:09 AM EST 25 mg Given 05/27/2015 9:12 AM EST 25 mg oxyCODONE (ROXICODONE) immediate release Given 05/26/2015 11:17 PM EST 10 mg tablet 10 mg 10 mg, Oral, EVERY 4 HOURS PRN, Starting on Sat05/26/15 at 2259, Until Sat05/27/15 at 0344, Pain, severe pain (7-10), May give an additional 5 mg in 30 minutes once if pain not relieved., Routine oxyCODONE (ROXICODONE) immediate release tablet Given 05/26/2015 7:55 PM EST 5 mg 5 mg 5 mg, Oral, EVERY 4 HOURS PRN, Starting on Sat05/26/15 at 1445, Until Sat05/26/15 at 2259, Pain, May give an additional 5 mg in 60 minutes once if pain not relieved, Routine oxyCODONE (ROXICODONE) immediate release tablet Given 05/27/2015 3:26 AM EST 5 mg 5 mg 5 mg, Oral, EVERY 4 HOURS PRN, Starting on Sat05/26/15 at 2259, Until Sat05/27/15 at 0344, Pain, mild to moderate pain (1-6), May give an additional 5 mg in 30 minutes once if pain not relieved., Routine oxyCODONE (ROXICODONE) immediate release tablet Given 05/29/2015 7:48 AM EST 5 mg 5 mg 5 mg, Oral, EVERY 4 HOURS PRN, Starting on Sat05/27/15 at 0344, Until 05/29/15 at 1551, Pain, Routine Given 05/28/2015 9:12 PM EST 5 mg Given 05/28/2015 12:18 PM EST 5 mg oxyCODONE (ROXICODONE) immediate release Given 05/27/2015 12:19 PM EST 5 mg tablet 5 mg 5 mg, Oral, ONCE, 1 dose, On Sat05/27/15 at 1245, Routine potassium chloride (KAYCIEL) 20 mEq/15 mL Given 05/27/2015 9:38 AM EST 40 mEq oral solution 40 mEq 40 mEq, Oral, ONCE, On Sat05/27/15 at 0830, 1 dose potassium chloride (KAYCIEL) 20 mEq/15 mL Given 05/29/2015 9:19 AM EST 40 mEq oral solution 40 mEq 40 mEq, Oral, ONCE, On Sat05/29/15 at 0800, 1 dose sertraline (ZOLOFT) tablet 50 mg Given 05/29/2015 9:17 AM EST 50 mg 50 mg, Oral, DAILY, First dose on Sat05/27/15 at 0900, Until Discontinued, Routine Given 05/28/2015 9:08 AM EST 50 mg Given 05/27/2015 9:06 AM EST 50 mg simvastatin (ZOCOR) tablet 20 mg Given 05/28/2015 9:12 PM EST 20 mg 20 mg, Oral, NIGHTLY, First dose on Yadira 05/26/15 at 2100, Until Discontinued, Routine Given 05/27/2015 8:50 PM EST 20 mg Given 05/26/2015 9:50 PM EST 20 mg sodium chloride 0.9% infusion New Bag 05/27/2015 3:35 AM EST 75 mL/hr 75 mL/hr 75 mL/hr, Intravenous, CONTINUOUS, Starting on Yadira 05/26/15 at 1515, Until Sat05/27/15 at 0914, Recovery (Recovery-Hospital Unit) New Bag 05/26/2015 2:52 PM EST 75 mL/hr 75 mL/hr warfarin (COUMADIN) tablet 5 mg Given 05/27/2015 6:47 PM EST 5 mg 5 mg, Oral, ONCE, 1 dose, On Sat05/27/15 at 1900, Routine warfarin (COUMADIN) tablet 5 mg Given 05/28/2015 4:53 PM EST 5 mg 5 mg, Oral, ONCE, 1 dose, On 05/28/15 at 1700, Routine documented in this encounter Active and Recently Administered Medications Times are shown in EST. Scheduled Medication Order 05/27/2015 05/28/2015 05/29/2015 aspirin EC tablet 81 mg (CANCELED) 09 (Given - Provi shmuel: Maureen Wilder RN) 0908 (Given - Provider: Maureen Wilder RN) 0918 (Gi aide - Provider: Elizabeth Magana, RN) 81 mg, Oral, DAILY, First dose on Sat at 0900, Until Discontinued, Routine ceFAZolin (ANCEF) 1g in dextrose 5% 50mL (COMPLETED) 0 413 (Given - Provider: Migue Johnson RN) 1,000 mg (1 g), Intravenous, EVERY 8 MP RS, 2 doses, First dose on Yadira 05/26/15 at 1515, Last dose on Yadira 05/26/15 at 2315, for 30 Minutes, Redose after 4 hours, Recovery (Recovery-Hospital Unit), Indication for (Active or Suspected): Prophylaxis enoxaparin (LOVENOX) injection 50 mg (COMPLETED) 09 (Given - Provider: Elizabeth Magana, JOSEPH) 50 mg (1 mg/kg/dose ? 50 kg), Subcutaneous, ONCE, 1 dose, 05/29/15 at 0900, Routine gabapentin (NEURONTIN) capsule 300 mg 09 (Given - Pr ovider: Maureen Wilder RN)1619 (Given - Provider: Maureen Wilder RN)2050 (Given - Provider: Migue Johnson RN) 0908 (Given - Provider: Maureen Wilder , RN)1451 (Given - Provider: Maureen Wilder, RN)211 (Given - Provider: Migue Johnson RN) 0918 (Given - Provider: Elizabeth Magana RN) 300 mg, Oral, 3 TIMES DAILY, First dose on Yadira 05/26/15 at 2200, Until Discontinued, Routine insulin aspart (NovoLOG) VIAL injection 1-4 Units (CAN CELED) 0738 (Given - Provider: Maureen Wilder RN - Comment: [id number] (Given - Provider: Maureen Wilder RN - Comment: [id number] (Given - Provider: Maureen Wilder, RN - Comment: BS-223) 0746 (Given - Provider: Maureen Wilder RN - Comment: BS- 209)1138 (Given - Provider: Maureen Wilder RN - Comment: [id number] (Given - Provider: Maureen Wilder, RN - Comment: BS-190) 0732 (Given - Provider: Elizabeth Magana, RN)1150 (Given - Provider: Elizabeth Magana, RN) 1-4 Units, Subcutaneous, 3 TIMES DAILY B EFORE MEALS, First dose on Sat05/26/15 at 1630, Until Discontinued, CORRECTION BOLUS Sensitive to insulin lean patient or total daily dose of all insulin nee ded to achieve glycemic control less kenya n 30 units BG 140 - 160 Give 1 unit BG 161 - 200 Give 2 units BG 201 - 240 Give 3 units BG greater than 240, give 4 units and recheck BG in 2 hours. If BG remains greater than 240, repeat 4 units (no mo re than three times) & call for new basal insulin orders. If less than 240 after two hours, give no insulin and resume prior schedule., Routine lisinopril (PRINIVIL;ZESTRIL) tablet 5 mg (CANCELED) 0 906 (Given - Provider: Maureen Wilder RN) 0910 (Given - Provider: Maureen Wilder, RN) 0918 (Gi aide - Provider: Elizabeth Magana, JOSEPH) 5 mg, Oral, DAILY, First dose on Sat at 0900, Until Discontinued, Routine metFORMIN (GLUCOPHAGE) tablet 1,000 mg (CANCELED) 0739 (Given - Provider: Maureen Wilder RN)1706 (Given - Provider: Maureen Wilder, RN) 0746 (Given - Provider: Maureen Wilder RN)1653 (Given - Provider: Maureen J Wilder, RN) 0748 (Given - Provider: Elizabeth Magana RN) 1,000 mg, Oral, 2 TIMES DAILY WITH MEALS , First dose on Sat05/27/15 at 0800, Until Discontinued, Routine meTOPROLOL succinate (TOPROL-XL) XL tablet 25 mg (CANC ELED) 0912 (Given - Provider: Maureen Wilder RN) 0909 (Given - Provider: Maureen Wilder RN) 0917 (Given - Provider: Elizabeth Magana RN) 25 mg, Oral, DAILY, First dose on Sat at 0900, Until Discontinued, Routine oxyCODONE (ROXICODONE) immediate release tablet 5 mg ( COMPLETED) 1219 (Given - Provider: Maureen Wilder RN) 5 mg, Oral, ONCE, 1 dose, Sat05/27/15 at 1245, Routine potassium chloride (KAYCIEL) 20 mEq/15 mL oral solutio n 40 mEq (COMPLETED) 0938 (Given - Provider: Maureen Wilder RN) 40 mEq, Oral, ONCE, 1 dose, Sat05/27/15 at 0830, Routine potassium chloride (KAYCIEL) 20 mEq/15 mL oral solution 40 mEq ( COMPLETED) 0919 (Given - Provider: Elizabeth Magana RN) 40 mEq, Oral, ONCE, 1 dose, Sat05/29/15 at 0800, Routine sertraline (ZOLOFT) tablet 50 mg (CANCELED) 09 (Give n - Provider: Maureen Wilder RN) 0908 (Given - Provider: Maureen Wilder RN) 0917 (Gi aide - Provider: Elizabeth Magana RN) 50 mg, Oral, DAILY, First dose on Sat at 0900, Until Discontinued, Routine simvastatin (ZOCOR) tablet 20 mg (CANCELED) 2049 (Give n - Provider: Migue Johnson RN) 2111 (Given - Provider: Migue Johnson RN) 20 mg, Oral, NIGHTLY, First dose on Sat05/26/15 at 2100, Until Discontinued, Routine warfarin (COUMADIN) tablet 5 mg (COMPLETED) 184 (Give n - Provider: Maureen Wilder RN) 5 mg, Oral, ONCE, 1 dose, Sat05/27/15 at 1900, Routine warfarin (COUMADIN) tablet 5 mg (COMPLETED) 1653 (Given - Provider: Maureen Wilder, JOSEPH) 5 mg, Oral, ONCE, 1 dose, 05/28/15 at 1700, Routine Continuous Medication Order 05/27/2015 05/28/2015 05/29/2015 heparin 25,000 units in dextrose 5% 500 mL infusion (C ANCELED) 0930 (Rate/Dose Change - Provider: Maureen Wilder RN)1739 (Rate/Dose Change - Provider: Maureen Wilder RN) 0015 (Stopped - Provider: Migue Johnson RN)0115 (Restarted - Provider: Migue Johnson RN)0309 (New Bag - Provider: Migue Johnson RN)1237 (Rate/Dose Change - Provider: Maureen Wilder, JOSEPH) 0553 (New Bag - Provider: Migue Johnson RN)0920 (Stopped - Provider: Elizabeth Magana RN) 500-7,000 Units/hr (10-140 mL/hr), Intra venous, at 10-140 mL/hr, CONTINUOUS, Starting 05/27/15 at 0930, Until 05/29/15 at 0726, Patient Weight 45-49 kg Initial dose - 700 units/hr = 14 mL/hr aP 1800 (Rat e/Dose Verify - Provider: Maureen Wilder RN - Comment: PTT- at goal) TT less than 60 sec - increase by 200 un its/hr = 4 mL/hr aPTT 60-79 sec- increase by 100 units/hr = 2 mL/hr aPTT 80-114 sec - no change aPTT 115-129 sec - decrease by 50 units/hr = 1 mL/hr aPTT 130-145 sec - stop infusion for 30 min then decr ease by 100 units/hr = 2 mL/hr aPTT greater than 145 sec - stop infusion for 60 min then decrease by 150 units/hr = 3 mL/hr aPTT greater than 145 sec X 2 - call h ouse officer See Bolus dosing guidanc e for aPTT values less than 80 seconds under PRN medications Repeat aPTT 6 hours after initiating heparin. Then 6 hours after each dose adjustment. When 2 consecu tive aPTT within target range of 80 - 11 4 seconds, change aPTT to once every 24 hours with A.M. labs while on heparin. RN to order required aPTT - Per Protocol, Routine sodium chloride 0.9% infusion (CANCELED) 0335 (New Bag - Provider: Migue Johnson RN) 75 mL/hr, at 75 mL/hr, Intravenous, CONT INUOUS, Starting Yadira 05/26/15 at 1515, Until 05/27/15 at 0914, Recovery (Recovery-Hospital Unit) PRN Medication Order 05/27/2015 05/28/2015 05/29/2015 acetaminophen (TYLENOL) tablet 325 mg (CANCELED) 0327 (Given - Provider: Migue Johnson RN)1218 (Given - Provider: Maureen Wilder RN)170 (Given - Provider: Maureen Wilder RN)2048 (Given - Provider: Migue Johnson RN) 011 (Given - Provider: Migue Johnson RN)0557 (Given - Provider: Migue Johnson RN)1218 (Given - Provider: Maureen Wilder RN)1956 (Given - Provider: Migue Johnson RN) 0748 (Given - Provider: Elizaebth Magana RN) 325 mg, Oral, EVERY 4 HOURS PRN, Startin g Yadira 05/26/15 at 1445, Until 05/29/15 at 1551, Pain, Maximum dose of acetaminophen is 4000 mg from all sources in 24 hours., Routine oxyCODONE (ROXICODONE) immediate release tablet 5 mg ( CANCELED) 0326 (Given - Provider: Migue Johnson RN) 5 mg, Oral, EVERY 4 HOURS PRN, Starting Yadira 05/26/15 at 2259, Until 05/27/15 at 0344, Pain, mild to moderate pain (1-6), May give an additional 5 mg in 30 minutes once if pain not relieved., Routine oxyCODONE (ROXICODONE) immediate release tablet 5 mg 0 908 (Given - Provider: Maureen Wilder RN)1706 (Given - Provider: Maureen Wilder RN)2048 (Given - Provider: Migue Johnson RN) 011 (Given - Provider: Migue Johnson RN)1218 (Given - Provider: Maureen Wilder RN)3587 (Given - Provider: Migue Richardson V, RN) 2315 (Given - Provider: Elizabeth Magana, JOSEPH) 5 mg, Oral, EVERY 4 HOURS PRN, Starting 05/27/15 at 0344, Until 05/29/15 at 1551, Pain, Routine documented in this encounter Care Teams Livestock Inspector Relationship Specialty Start Date End Date Gordy Moon MD PCP - General Family Medicine 05/19/[address] [place] [address] documented as of this encounter
--- OUTSIDE RECORDS SUMMARY | 2022-01-25 00:59 | XMS_ITS | Encounter Summary ---
:1950 Author Organization [facility] [place] [address] Care Team Providers Name Role Phone Gordy Gregg MD Primary Care Provider [phone] Reason for Visit Reason Comments Wound Check Encounter Details Date Type Department Care Team Description 07/19/2015 Office Visit Vascular Surgery at [facility], Paul itical lower limb [facility] AVIONICS INSTALLER ischemia [facility] [address] [place], [place] VASCULAR SURGERY [id number] [place] [address] [phone] Social History Tobacco Use Types Packs/Day Years Used Date Never Smoker Smokeless Tobacco: Never Used Alcohol Use Standard Drinks/Week Comments No 0 (1 standard drink = 0.6 oz pure alcoho l) Sex Assigned at Date Recorded Not on file documented as of this encounter Last Filed Vital Signs Vital Sign Reading Time Taken Comments Blood Pressure 105/55 07/19/2015 2:07 PM EST Pulse 84 07/19/2015 2:07 PM EST Temperature 36.7 ??C (98.1 ??F) 07/19/2015 2:07 PM EST Respiratory Rate 18 07/19/2015 2:07 PM EST Oxygen Saturation - - Inhaled Oxygen Concentration - - Weight 46.7 kg (103 lb) 07/19/2015 2:07 PM EST Height 152.4 cm (5') 07/19/2015 2:07 PM EST Body Mass Index 20.12 07/19/2015 2:07 PM EST documented in this encounter Patient Instructions Patient InstructionsStHope holloway, AVIONICS INSTALLER - 07/19/2015 3:18 PM EST 50/50 betadine/NS soaked gauze to left medial ankle open incision to be changed daily. VNA daily for wound care and monitoring. Watch for infection:. Redness, swelling, increase drainage, warmth to area, odor, fever, or chills RTC 07/27/15 with [address]2 [address] see Dr Doyle Thinking about Anges trial. documented in this encounter Progress Notes Hope Virk, MAGALY - 07/19/2015 2:08 PM EST Interval history: F/u wound check worsening Denies fever, SOB, chest pain. C/o chills last night with vomiting related to what she ate. VNA with wound care weekly. C/o nerve pain in foot and rest pain. Taking Neurontin. Oxycodone 10 mg at bed time. C/o rest pain but better then last appointment. VNA worried about ankle incision 05/27/2015: Left common femoral to posterior tibial bypass graft with 6mm non- ringed PTFE and distal vein cuff, Left ileofemoral endarterectomy with bovine pericardial patch angioplasty, Thrombectomy of occluded BOTTLING EQUIPMENT SALES REPRESENTATIVE-peroneal vein bypass graft Prior Vascular History: 03/18/15: [...] ND, no palpable pulsatile masses Extremity - [place], , no ulceration, brisk capillary refill, no edema left foot warm dependent rubor, Left mid calf incision wound with granulation tissue filling in. Ankle incision with rubor surround dependent rubor mostly pales with elevation. Sutures removed wtih open area . Serous drainage. Vascular: R L Carotid 2/2 bruit [...] (Graft) Left Posterior Tibial Artery Interpretation: Left- Fem-FOREIGN LANGUAGES DEPARTMENT CHAIR bypass graft is occluded. No significant change [...] pericardial patch angioplasty, T hrombectomy of occluded BOTTLING EQUIPMENT SALES REPRESENTATIVE-peroneal vein bypass graft SOSA's L SOSA 0.31. TBI 0.06 toe pressure 11 Graft Occluded. Known graft occ 06/01/15. Rest pain and neuropathy. She has no further interventions options available. Discussed Anges trial last visit today she reports does not wish to proceed at this time. . Discussed wound care and pain control and amputation. Dr Delaney notified of visit today. Discuss options which have been noted and discussed on several other occasion. Continue Gabapentin 300mg AM and PM and increase to 900 mg at hs. Oxycodone 10 mg at bedtime and may take 5 mg every 4-6 hours. 50/50 betadine/NS soaked gauze to left medial ankle open incision to be changed daily. VNA daily for wound care and monitoring. Watch for infection:. Redness, swelling, increase drainage, warmth to area, odor, fever, or chills RTC 07/27/15 with [address]O2 [address] Dr Doyle Thinking about Anges trial. documented in this encounter Plan of Treatment Not on filedocumented as of this encounter Visit Diagnoses Diagnosis Critical lower limb ischemia Unspecified circulatory system disorder documented in this encounter Care Teams Scrap Baler Relationship Specialty Start Date End Date Gordy Gregg MD PCP - General Family Medicine 05/19/[address] [place] [address] documented as of this encounter
--- OUTSIDE RECORDS SUMMARY | 2022-01-25 00:59 | XMS_ITS | Encounter Summary ---
:1950 Author Organization [facility] Address [address] [place] [address] Care Team Providers Name Role Phone Gordy Gregg MD Primary Care Provider [phone] Encounter Details Date Type Department Care Team Description 07/23/2015 Telephone Vascular Surgery Chela Blancas MD [facility] [place] [address] VASCULAR SURGERY [phone] [place], [place] [address] (Wo rk) Social History Tobacco Use Types Packs/Day Years Used Date Never Smoker Smokeless Tobacco: Never Used Alcohol Use Standard Drinks/Week Comments No 0 (1 standard drink = 0.6 oz pure alcoho l) Sex Assigned at Date Recorded Not on file documented as of this encounter Miscellaneous Notes Telephone Encounter - Chela Blancas - 07/23/2015 12:39 PM EST Received call from Dr. Hopson at [facility]. Patient is prepared for transfer to [facility] for amputation. We will arrange as soon as possible. documented in this encounter Plan of Treatment Not on filedocumented as of this encounter Visit Diagnoses Not on filedocumented in this encounter Care Teams Veterinarian Helper Relationship Specialty Start Date End Date Gordy Gregg MD PCP - General Family Medicine 05/19/[address] [place] [address] documented as of this encounter
--- OUTSIDE RECORDS SUMMARY | 2022-01-25 00:59 | XMS_ITS | Encounter Summary ---
:1950 [place] [address] Care Team Providers Name Role Phone Gordy Gregg MD Primary Care Provider [phone] Encounter Details Date Type Department Care Team Description 06/01/2015 Hospital Encounter Vascular Lab at [facility]per[facility] [place] [phone] Social History Tobacco Use Types Packs/Day Years [...] 81 mg Tablet, Take 1 tablet by 30 tablet 3 03/16/20 15 Delayed Release (E.C.) mouth daily. acetaminophen (TYLENOL) Take 325 mg by mouth 0 325 mg Tablet every 4 hours as needed for Pain. gabapentin (NEURONTIN) Take 1 capsule by 120 capsule 3 06/0106/27/2015 300 mg mouth 3 times daily. CapsuleIndications: One capsule in AM neuropathic pain and PM. Two capsules at bedtime Indications: Neuropathic Pain oxyCODONE (ROXICODONE) Take 1 tablet by 50 tablet 0 015 06/15/2015 5 mg Tablet mouth every 6 hours as needed for Pain. meTOPROLOL succinate Take 1 tablet by 30 tablet 12 5 04/18/2016 (TOPROL-XL) 25 mg mouth daily. Tablet Sustained Release 24 hrIndications: ASCVD (arteriosclerotic cardiovascular disease) multivitamin Take 1 tablet by 0 2016 (THERAGRAN) Tablet mouth daily. metFORMIN (GLUCOPHAGE) Take 1,000 mg by 0 08/03/2015 500 mg Tablet mouth 2 times daily (with meals). Takes 2 bid simvastatin (ZOCOR) 20 Take 20 mg by mouth 0 06/12/2016 mg Tablet nightly. lisinopril Take 5 mg by mouth 0 2015 (PRINIVIL;ZESTRIL) 5 mg daily. Tablet documented as of this encounter Plan of Treatment Not on filedocumented as of this encounter Procedures Procedure Name Priority Date/Time Associated Comments Diagnosis UNILATERAL BYPASS Routine 06/01/2015 8:29 AM PAD (peripheral R esults for this GRAFT ASSESS EST artery disease) procedure are in Claudication the results section. SOSA, LEGS, MULTIPLE Routine 06/01/2015 8:29 AM PAD (peripheral Results for this LEVELS EST artery disease) procedure are in Claudication the results section. documented in this encounter Results SOSA, legs, multiple levels (06/01/2015 8:29 AM EST) Component Value Ref Test Analysis Performed At [facility] [place] Range Method Time Signature VB Text Department: Vascular Surgery Lab VAS[facility] Report Patient: [id number] (CARRIE PERRY) CPT: 02736 ICD10: I73.9;I70.622 Referring Physician: GLEN DOYLE ?? Indications: s/p L fem endart and fem-PHYSICIAN IN PRIVATE PRACTICE bypass Diabetes mellitus: no ICD10 Diagnosis Code: [...] 0.19(+.07) 0.00( .00) Electronically Signed by: MARCIA WAGGONER on 2015-06-01 06:13:2 5 PM VB Text End of Report VASCUBASE Report Specimen (Source) Anatomical Collection Method Collection Time Re ceived Time Location / / Volume Laterality 06/01/2015 8:29 AM EST Glen Doyle MD VASCULAR ORDERABLES Performing Organization Address City/State/ZIP Code Phon e Number [facility] Unilat Bypass Graft Assess (06/01/2015 8:29 AM EST) Component Value Ref Test Analysis Performed At [facility] Range Method Time Signature VB Text Department: Vascular Surgery Lab VASCUBASE Report Patient: [id number] (CARRIE PERRY) CPT: 05340 ICD10: I70.622;I73.9 Referring Physician: GLEN DOYLE ?? Indications: ??s/p L ELECTRIC WELDER HELPER endart and fem-PHYSICIAN IN PRIVATE PRACTICE bypass ICD10 Diagnosis Code: I70.622, I73.9 Findings: Left ?PSV (cm/s) ??EDV ??Location ? Inflow Artery ? 14 ?0 ??Common Femoral Artery, Left ?? Inflow Anastomosis ? Common Femoral Artery, Left ?? Proximal Graft ? 0 ?0 ? Distal Graft ? 0 ?0 ? Outflow Anastomosis ?Left Posterior Tibial Artery ?? Outflow Artery (Graft) ? Left Posterior Tibial Artery ?? Interpretation: Left- Fem-PHYSICIAN IN PRIVATE PRACTICE bypass graft is occluded. No significant holt e compared to previous exam 05/19/15. Patient being seen in clinic today. Electronically Signed by: MARCIA WAGGONER on 2015-06-01 06:11:2 7 PM VB Text [...] disease, unspecified Claudication Peripheral vascular disease, unspecified documented in this encounter Care Teams Senior Production Manager Relationship Specialty Start Date End Date Gordy Gregg MD PCP - General Family Medicine 05/19/[address] [place] [address] documented as of this encounter
--- OUTSIDE RECORDS SUMMARY | 2022-01-25 00:59 | XMS_ITS | Encounter Summary ---
:1950 Author Organization [facility] Address [address] [place] [address] Care Team Providers Name Role Phone Gordy Gregg MD Primary Care Provider [phone] Encounter Details Date Type Department Care Team Description 07/20/2015 Hospital Encounter Radiology Library at [facility], [place] [address] Social History Tobacco Use Types Packs/Day [...] every 4 hours as needed for Pain. oxyCODONE (ROXICODONE) Take 1 tablet by 50 tablet 0 016 08/03/2015 5 mg Tablet mouth every 6 hours as needed for Pain. gabapentin (NEURONTIN) Take 1 capsule by 150 capsule 3 06/2708/03/2015 300 mg mouth 3 times daily. CapsuleIndications: One capsule 300 mg neuropathic pain in AM and PM. Three (900 mg) capsules at bedtime Indications: Neuropathic Pain meTOPROLOL succinate Take 1 tablet by 30 [...] Associated Diagnosis Comme nts FILM LIBRARY Routine 07/20/2015 12:15 AM Pain Results for this STORAGE ONLY DX EST procedure ar e in CHEST the results section. documented in this encounter Results Film Library- Storage only DX Chest (07/20/2015 12:15 AM EST) Specimen (Source) Anatomical Location Collection Method / Collectio n Time Received Time / Laterality Volume Narrative NURIS - 07/23/2015 5:13 PM EST See PACS for result report. Dr [facility] FILM LIBRARY ORDERABLES Performing Organization Address City/State/ZIP Code Phon e Number [place], [place] documented in this encounter Visit Diagnoses Diagnosis Pain Generalized pain documented in this encounter Care Teams Telegraphic Typewriter Operator Chief Relationship Specialty Start Date End Date Gordy Gregg MD PCP - General Family Medicine 05/19/[address] [place] [address] documented as of this encounter
--- OUTSIDE RECORDS SUMMARY | 2022-01-25 00:59 | XMS_ITS | Encounter Summary ---
:1950 Author Organization [facility] [place] [address] Care Team Providers Name Role Phone Gordy Gregg MD Primary Care Provider [phone] Reason for Visit Reason Comments Circulatory Problem foot pain Encounter Details Date Type Department Care Team Description 06/01/2015 Office Visit Vascular Surgery at [facility], Paul itical lower limb [facility] FAMILY MEDICINE PHYSICIAN ischemia [facility] [address] [place], [place] VASCULAR SURGERY [address] [place] [address] [phone] Social History Tobacco Use Types Packs/Day Years Used Date Never Smoker Smokeless Tobacco: Never Used Alcohol Use Standard Drinks/Week Comments No 0 (1 standard drink = 0.6 oz pure alcoho l) Sex Assigned at Date Recorded Not on file documented as of this encounter Last Filed Vital Signs Vital Sign Reading Time Taken Comments Blood Pressure 146/71 06/01/2015 9:14 AM EST Pulse 87 06/01/2015 9:14 AM EST Temperature - - Respiratory Rate 20 06/01/2015 9:14 AM EST Oxygen Saturation - - Inhaled Oxygen Concentration - - Weight 49.9 kg (110 lb) 06/01/2015 9:14 AM EST Height 152.4 cm (5') 06/01/2015 9:14 AM EST Body Mass Index 21.48 06/01/2015 9:14 AM EST documented in this encounter Patient Instructions Patient InstructionsStHope holloway APRN - 06/01/2015 10:24 AM EST She has no further interventions options available. Discussed Anges trial. Discussed wound care and pain control and amputation. She is thinking about her options. Refill oxycodone. Gabapentin 300mg AMand PM and 600 mg at hs. Stop coumadin and Lovenox. Continue wound care and VNA. RTC 06/15/15 at 9 AM. documented in this encounter Progress Notes Hope Virk, MAGALY - 06/01/2015 9:09 AM EST Interval history: Cold left foot and pain States yesterday noted left foot cold and pain in foot. Denies fever, chills, SOB, chest pain. VNA with wound care Ns wet to dry dressing to left calf wound. Dry dressing to incisions. INR 1.7 still onLovenox injections. 05/27/2015: Left common femoral to posterior tibial bypass graft with 6mm non- ringed PTFE and distal vein cuff, Left ileofemoral endarterectomy with bovine pericardial patch angioplasty, Thrombectomy of occluded NAVAL AIRCREWMAN HELICOPTER-peroneal vein bypass graft Prior Vascular History: 03/18/15: [...] ND, no palpable pulsatile masses Extremity - [place], , no ulceration, brisk capillary refill, no edema left foot cool dependent rubor, Left mid calf incision wound with granulation tissue. Left groin and ankle incision intact with sutures. Vascular: R L Carotid 2/2 bruit (n) 2/2 bruit (n) Radial 2/2 2/2 Femoral 2/2 2/2 Popliteal -/2 -/2 DP -/2 -/2 PT -/2 -/2 SOSA's Right Pressure (mm Hg) SOSA Waveform TBI [...] significant change compared to previous exam. Duplex Left PSV (cm/s) EDV Location Inflow Artery 14 0 Common Femoral Artery, Left Inflow Anastomosis Common Femoral Artery, Left Proximal Graft 0 0 Distal Graft 0 0 Outflow Anastomosis Left Posterior Tibial Artery Outflow Artery (Graft) Left Posterior Tibial Artery Interpretation: Left- Fem-CHRISTMAS TREE GRADER bypass graft is occluded. No significant change [...] pericardial patch angioplasty, T hrombectomy of occluded NAVAL AIRCREWMAN HELICOPTER-peroneal vein bypass graft C/o new left foot pain at rest and cold foot started yesterday. SOSA's L SOSA 0.19. TBI 0.0 Graft Occluded. Visit reviewed with Dr Wright. She hasno further interventions options available. Discussed Anges trial. Discussed wound care and pain control and amputation. She is thinking about her options. Refill oxycodone. Gabapentin 300mg AM and PM and 600 mg at hs. Stop coumadin and Lovenox. Continue wound care and VNA. RTC 06/15/15 at 9 AM. documented in this encounter Plan of Treatment Not on filedocumented as of this encounter Visit Diagnoses Diagnosis Critical lower limb ischemia Unspecified circulatory system disorder documented in this encounter Care Teams Cold Storage Supervisor Relationship Specialty Start Date End Date Gordy Gregg MD PCP - General Family Medicine 05/19/[address] [place] [address] documented as of this encounter
--- OUTSIDE RECORDS SUMMARY | 2022-01-25 00:59 | XMS_ITS | Encounter Summary ---
:1950 Author Organization [facility] Address [address] [place] [address] Care Team Providers Name Role Phone Gordy Gregg MD Primary Care Provider [phone] Encounter Details Date Type Department Care Team Description 07/20/2015 Hospital Encounter Radiology Library at [facility], [place] [address] Social History Tobacco Use Types Packs/Day [...] Diagnosis Comme nts FILM LIBRARY Routine 07/20/2015 12:00 AM Pain Results for this STORAGE ONLY DX EST procedure ar e in ANKLE the results section. documented in this encounter Results Film Library- Storage only DX Ankle (07/20/2015 12:00 AM EST) Specimen (Source) Anatomical Location Collection Method / Collectio n Time Received Time / Laterality Volume Narrative LUIS ALBERTO LAWLER - 07/23/2015 5:12 PM EST See PACS for result report. Dr Boog[facility] FILM LIBRARY ORDERABLES Performing Organization Address City/State/ZIP Code Phon e Number [facility] NURIS [place], [place] documented in this encounter Visit Diagnoses Diagnosis Pain Generalized pain documented in this encounter Care Teams Retail Event Coordinator Relationship Specialty Start Date End Date Gordy Gregg MD PCP - General Family Medicine 05/19/[address] [place] [address] documented as of this encounter
--- OUTSIDE RECORDS SUMMARY | 2022-01-25 00:59 | XMS_ITS | Encounter Summary ---
:1950 Author Organization [facility] [place] [address] Care Team Providers Name Role Phone Gordy Gregg MD Primary Care Provider [phone] Encounter Details Date Type Department Care Team Description 05/31/2015 Telephone Vascular Surgery Sheryl Pritchard MD [facility] [place] [address] VASCULAR SURGERY [phone] [place], [place] [address] (Wo rk) Social History Tobacco Use Types Packs/Day Years Used Date Never Smoker Smokeless Tobacco: Never Used Alcohol Use Standard Drinks/Week Comments No 0 (1 standard drink = 0.6 oz pure alcoho l) Sex Assigned at Date Recorded Not on file documented as of this encounter Miscellaneous Notes Telephone Encounter - Sheryl Pritchard - 05/31/2015 6:53 PM EST Pt called. Doing ok. Had INR checked by VNA today, was 1.7. Still taking lovenox 75 daily. Pt unsurewho is managing her INR/coumadin. Currently taking 3mg nightly. I told her to take 3 again and ensure to cont. Lovenox. She has clinic appt for tomorrow for wound check. Will have our clinic staff helpcoordinate outpatient coumadin management. documented in this encounter Plan of Treatment Not on filedocumented as of this encounter Visit Diagnoses Not on filedocumented in this encounter Care Teams Returning Officer Relationship Specialty Start Date End Date Gordy Gregg MD PCP - General Family Medicine 05/19/[address] [place] [address] documented as of this encounter
--- OUTSIDE RECORDS SUMMARY | 2022-01-25 00:59 | XMS_ITS | Encounter Summary ---
:1950 Author Organization [facility] [place] [address] Care Team Providers Name Role Phone Gordy Gregg MD Primary Care Provider [phone] Encounter Details Date Type Department Care Team Description 06/27/2015 Hospital Encounter Vascular Lab at Mariano Doyle MD [facility] [place] [address] Claudication; Sandra Jung, MERVIN PAD (peripheral artery disease) [place] [phone] Social History Tobacco Use Types Packs/Day Years [...] mg) capsules at bedtime Indications: Neuropathic Pain oxyCODONE (ROXICODONE) Take 1 tablet by 50 tablet 0 015 07/19/2015 5 mg Tablet mouth every 8 hours as needed for Pain. meTOPROLOL succinate [...] Diagnosis Comme nts SOSA, LEGS, MULTIPLE Routine 06/27/2015 12:30 PM Claudica tion Results for this LEVELS EST PAD (peripheral procedure ar e in artery disease) the results section. documented in this encounter Results SOSA, legs, multiple levels (06/27/2015 12:30 PM EST) Component Value Ref Test Analysis Performed At [facility] Range Method Time Signature VB Text Department: Vascular Surgery Lab VASCU[facility] Report Patient: [id number] (CARRIE PERRY) CPT: 67389 ICD10: I73.9;I70.223 Referring Physician: ANTOLIN MULLEN ?? Indications: History of PAD with bilateral lower extremity claudication and rest pain L>R, known occluded LEFT BRICKLAYER HELPER-P TA PTFE bypass graft with vein cuff, ? change Diabetes mellitus: Yes ICD10 Diagnosis Code: I73.9, I70.223 Definitions: SOSA = Ankle / Brachial Systolic Pressure Index, TBI = Toe / Brachial Systolic Pressure Index. All systolic pressures in this study are derived based on Doppler assessment of blood flow. Findings: Right ?Pressure (mm Hg) ?? SOSA ??Waveform ? TBI ?? Brachial Artery ?176 ? Dorsalis Pedis (Ankle) Arter y ?87 ?0.49 ??Monophasic ? Posterior Tibial (Ankle) Art gregory ??93 ?0.53 ??Monophasic ? Great Toe ?43 ?0.24 ?? Left ? Pressure (mm Hg) ?? SOSA ??Waveform ? TBI ?? Brachial Artery ?170 ? Dorsalis Pedis (Ankle) Arter y ?55 ?0.31 ??Monophasic ? Posterior Tibial (Ankle) Art gregory ??0 ? 0.00 ??Aphasic ? Great Toe ?11 ?0.06 ?? Interpretation: RIGHT: Moderate to moderately severe lower extremity arteria l occlusive disease. Significant improve ment in ABIs and toe-brachial index compared to the previous exam done on 06/01/2015. LEFT: Severe lower extremity arterial occlusive disease. U nable to obtain a Doppler signal with the cont inuous wave (SOSA) probe - the very distal segment of the posterior tibial artery below the bypass gra ft and sutures was identified with minimal flow (PSV 4 cm/s) and aphasic Doppler waveforms . SOSA of 0.00 represents a deterioration compared to prior exam. Sim ultaneously, there has been significant improvement in the DP SOSA with no significa nt change in toe-brachial index compared to the previous exam done on . Previous ABIs with change from previous value: Date ?RIGHT DP ?? RIGHT PT ?? RT GR TOE ?? LEFT DP ?LEFT PT ?LT GR TOE ??0.49 ? 0 .52 ? 0.25 ?0.32 ? 0.24 ? 0.12 ??---- ? - --- ? ---- ?1.09(+.77) 1.01(+.77) 0.34(+.22) ??0.42 ? 0 .57 ? 0.26 ?0.95(-.14) 0.77(-.24) 0.43(+.09) ??0.53(+.11) 0.55 (-.02) 0.26( .00) ??---- ? 0.12(-.65) 0.00(-.43) ??0.21(-.32) 0.28 (-.27) 0.05(-.21) ??0.09 ? 0.19(+.07) 0.00( .00) Current ? 0.49(+.28) 0.5 3(+.25) 0.24(+.19) ??0.31(+.22) 0.00(-.19) 0.06(+.06) Electronically Signed by: NATANAEL NUÑEZ on 2015-07-01 04:32: 08 PM VB Text End of Report VAS[facility] Report Specimen (Source) Anatomical Collection Method Collection Time Re ceived Time Location / / Volume Laterality 06/27/2015 12:30 PM EST Antolin Mullen MD VASCULAR ORDERABLES Performing Organization Address City/State/ZIP Code Phon e Number V[facility] documented in this encounter Visit Diagnoses Diagnosis Claudication Peripheral vascular disease, unspecified PAD (peripheral artery disease) Peripheral vascular disease, unspecified documented in this encounter Care Teams Singing Waiter Or Waitress Relationship Specialty Start Date End Date Gordy Gregg MD PCP - General Family Medicine 05/19/[address] [place] [address] documented as of this encounter
--- OUTSIDE RECORDS SUMMARY | 2022-01-25 01:00 | XMS_ITS | Encounter Summary ---
:1950 Author Organization [place] [address] Care Team Providers Name Role Phone Gordy Gregg MD Primary Care Provider [phone] Encounter Details Date Type Department Care Team Description 05/25/2015 Orders Only Vascular Surgery at Amita Millan Critical lower limb ischemia; [facility] Emigdio, RN PAD (peripheral artery dise[place] se) [place] [phone] Social History Tobacco Use Types Packs/Day Years Used Date Never Smoker Smokeless Tobacco: Never Used Alcohol Use Standard Drinks/Week Comments No 0 (1 standard drink = 0.6 oz pure alcoho l) Sex Assigned at Date Recorded Not on file documented as of this encounter Plan of Treatment Scheduled Orders Name Type Priority Associated Diagnoses Order S chedule BYPASS GFT FEM-ANT Procedures Routine Critical lower limb On e Time for 1 TIB/POST ischemia Occurrences starting TIB/PERON/DP W VEIN PAD (peripheral arter y 05/25/2015 until CONDUIT (NOT disease) 05/25/2015 IN-SITU) documented as of this encounter Results (ABNORMAL) Basic Metabolic Panel (non-fasting) (05/26/2015 8:14 AM EST) athologist Signature Glucose Lvl 202 (H) 65 - 199 CERNER mg/dL MILLENNIUM Comment: Diabetes: >=200 mg/dL plus symp toms BUN 11 8 - 18 mg/dL CERNER MILLENNIUM Creatinine 0.55 (L) 0.70 - 1.20 mg/dL CERNER MILL ENNIUM Comment: Please note that the pediatric reference intervals supplied above were not validated at [facility]. Results from pediatri c patients should be [...] the following links into your internet browser. [email or web address] [email or web address] Specimen Anatomical Collection Method Collection Time Receive d Time (Source) Location / / Volume Laterality Blood specimen 05/26/2015 8:14 AM 015 8:21 (specimen) EST AM EST Resulting Agency Comment Spec In Lab Mariano Doyle MD CHEMISTRY ORDERABLES Performing Organization Address City/State/[place] [address] [facility] documented in this encounter Visit Diagnoses Diagnosis Critical lower limb ischemia Unspecified circulatory system disorder PAD (peripheral artery disease) Peripheral vascular disease, unspecified documented in this encounter Care Teams Entrepreneur Relationship Specialty Start Date End Date Gordy Gregg MD PCP - General Family Medicine 05/19/[address] [place] [address] documented as of this encounter
--- OUTSIDE RECORDS SUMMARY | 2022-01-25 01:00 | XMS_ITS | Encounter Summary ---
:1950 Author Organization [facility] [place] [address] Care Team Providers Name Role Phone Shirley Cardenas APRN Primary Care Provider Encounter Details Date Type Department Care Team Description 05/13/2015 Telephone Vascular Surgery at [facility] Maureen Adhikari, [place] [phone] Social History Tobacco Use Types Packs/Day Years Used Date Never Smoker Smokeless Tobacco: Never Used Alcohol Use Standard Drinks/Week Comments No 0 (1 standard drink = 0.6 oz pure alcoho l) Sex Assigned at Date Recorded Not on file documented as of this encounter Miscellaneous Notes Telephone Encounter - Maureen Adhikari, RN - 05/13/2015 9:31 AM EST Miguelito Hurst is S/P Left SFA-peroneal bypass with left GSV and left lateral fibulectomy Carrie callls today w/ concerns about her left leg, she states it is like it was before surgery.She noticed this about 2 weeks ago. She describes her foot as being red, cool and very painful especially at night. She did have an infection below the healing incision site, she went to her local ED and was prescribed antibiotics. She states that it has since somewhat resolved, but she still has these other foot symptoms. I referred her to her PCP, for evaluation as she lives 2 hours away. I advised her to ask him specifically to check her pulses in the left leg, and to have him call me directly with concerns. She states she has a cardiology appointment here on 05/19 at which time we can add her to the clinicschedule to be evaluated. documented in this encounter Plan of Treatment Not on filedocumented as of this encounter Visit Diagnoses Not on filedocumented in this encounter Care Teams Nut Sorter Relationship Specialty Start Date End Date Shirley Cardenas APRN PCP - General 04/01/15 05/18/15 documented as of this encounter
--- OUTSIDE RECORDS SUMMARY | 2022-01-25 01:00 | XMS_ITS | Encounter Summary ---
:1950 Author Organization [facility] [place] [address] Care Team Providers Name Role Phone Gordy Gregg MD Primary Care Provider [phone] Reason for Referral Diagnostic Test (Routine) - Closed Specialty Diagnoses / Procedures Referred By Contact Refer red To Contact Radiology Diagnoses PAD (peripheral artery disease) Occlusion of graft of lower extremity, initial encounter Hope Virk APRN [facility] Interventionl Rad Procedures VS Angiogram/intervention (vascular) [facility] [place] [address] [place] [address] Referral ID Status Reason Start Date Expiration Date Visits V isits Requested Authorized [id number] Closed Specialty 05/24/2015 05/23/2016 1 1 Service Requested Reason for Visit Reason Comments Follow-up ? wound inf. LLE Encounter Details Date Type Department Care Team Description 05/19/2015 Office Visit Vascular Surgery at Hope Virk PA D (peripheral artery disease); [facility] Occlusion of graft of lower extremity, i nitial encounter [facility] [place] [address] [place] [address] [phone] Social History Tobacco Use Types Packs/Day Years Used Date Never Smoker Smokeless Tobacco: Never Used Alcohol Use Standard Drinks/Week Comments No 0 (1 standard drink = 0.6 oz pure alcoho l) Sex Assigned at Date Recorded Not on file documented as of this encounter Last Filed Vital Signs Vital Sign Reading Time Taken Comments Blood Pressure 153/67 05/19/2015 9:21 AM EST Pulse 75 05/19/2015 9:21 AM EST Temperature 36.5 ??C (97.7 ??F) 05/19/2015 9:21 AM EST Respiratory Rate - - Oxygen Saturation - - Inhaled Oxygen Concentration - - Weight 49.4 kg (109 lb) 05/19/2015 9:21 AM EST Height 152.4 cm (5') 05/19/2015 9:21 AM EST Body Mass Index 21.29 05/19/2015 9:21 AM EST documented in this encounter Patient Instructions Patient InstructionsStHope holloway APRN - 05/19/2015 1:11 PM EST Angiogram 05/24/15. Last dose Coumadin 05/21/15.Cr today 0.58 UE vein mapping to be done prior to angio 05/24/15. documented in this encounter Progress Notes Hope Virk APRN - 05/19/2015 9:15 AM EST Interval history: 3 weeks of medial calf incision eschar, stiff and cold toes with pain. Denies SOB,chest pain, TIA's, edema. Denies drainage redness, fever chills. Prior Vascular History: 03/18/15: Left SFA-peroneal bypass [...] ND, no palpable pulsatile masses Extremity - [place], , no ulceration, brisk capillary refill, no edema left foot cool dependent rubor, Left mid calf incision with eschar. Vascular: R L Carotid 2/2 bruit (n) 2/2 bruit (n) Radial 2/2 2/2 Femoral 2/2 2/2 Popliteal -/2 -/2 DP -/2 -/2 PT -/2 -/2 SOSA's Right Pressure (mm Hg) SOSA Waveform TBI Brachial Artery 191 Dorsalis Pedis (Ankle) Artery 102 0.53 Monophasic Posterior Tibial (Ankle) Artery 106 0.55 Monophasic Great Toe 49 0.26 Left Pressure (mm Hg) SOSA Waveform TBI Brachial Artery 188 Dorsalis Pedis (Ankle) Artery Absent Posterior Tibial (Ankle) Artery 22 0.12 Aphasic Great Toe 0 0.00 Interpretation: RIGHT: Moderate (borderline moderately severe) lower extremity arterial occlusive disease to the level of the distal calf with moderately severe disease at the toe level. No significant change from previous exam. LEFT: Severe lower extremity arterial occlusive disease. Unable to insonate a DPA Doppler signal. Significant deterioration from previous exam. Duplex Left PSV (cm/s) EDV Location Inflow Artery 120 15 Common Femoral Artery, Left Inflow Anastomosis 0 0 Common Femoral Artery, Left Proximal Graft 0 0 Outflow Anastomosis Left Peroneal Outflow Artery (Graft) Left Peroneal Interpretation: The LEFT fem-peroneal bypass graft is occluded. This is a new finding. : Assessment / Plan: 64 yo female s/p : Left SFA-peroneal bypass with left GSV and left lateral fibulectomy. C/o new left foot pain at rest and eschar non healing left mid calf incision. SOSA's L SOSA 0.12 aphasic. TBI 0.0 Graft Occluded. Visit reviewed with Dr Doyle. Schedule L LE angio 05/24/15.Last dose Coumadin 05/21/15.Cr today 0.58 UE vein mapping to be done prior to angio 05/24/15. documented in this encounter Plan of Treatment Not on filedocumented as of this encounter Procedures Procedure Name Priority Date/Time Associated Diagnosis Comme nts CREATININE Routine 05/19/2015 12:02 PM PAD (peripheral Resul ts for this EST artery disease) procedure are in the Occlusion of graft of result s section. lower extremity, initial encounter documented in this encounter Results Vein Map Arm, Bilateral (05/24/2015 1:13 PM EST) Component Value Ref Test Analysis Performed At [facility] Method Time Signature VB Text Department: Vascular Surgery Lab VASCUBASE Report Patient: [id number] (CHAN PERRY) CPT: 70672 ICD10: I73.9;T82.898A Referring Physician: GLEN DOYLE ?? Indications: ??occluded LLE bypass (SFA to peroneal) with rest pain; ? adequate arm vein for LLE BPG ICD10 Diagnosis Code: Other specified complication of vascul ar prosthetic devices, implants and grafts, initial encounter [T82.898]. R23.8 Findings: Right ?Diameter AP ( mm) ?? Shoulder Cephalic Vein ?3. 4 ?? Mid Upper Arm Cephalic Vein ? 4.1 ? ? Antecubital Fossa Cephalic Vein ? 4.0 ?? Cephalic Upper Forearm ?2. 9 ?? Mid Forearm Cephalic Vein ? 3.1 ?? Cephalic Lower Forearm ?2. 5 ?? Wrist Cephalic Vein ? 2 .5 ?? Mid Upper Arm Basilic Vein ?3.6 ?? Antecubital Fossa Basilic Vein ?3.4 ?? Basilic, ??Wrist ? 2.2 ?? Left ? Diameter AP ( mm) ?? Shoulder Cephalic Vein ?3. 1 ?? Mid Upper Arm Cephalic Vein ? 3.4 ? ? Antecubital Fossa Cephalic Vein ? 3.7 ?? Cephalic Upper Forearm ?1. 7 ?? Mid Forearm Cephalic Vein ? 1.6 ?? Upper Arm Basilic Vein ?5. 1 ?? Mid Upper Arm Basilic Vein ?4.6 ?? Antecubital Fossa Basilic Vein ?3.1 ?? Interpretation: Patent cephalic and basi lic veins bilaterally with no evidence of thrombus. The left distal forearm and wrist veins were not visualized due to IV site. The right basilic-b rachial confluence is in the proximal/mid upper arm. Comparison: ??No previous study in our vascular lab da tabbehzad for comparison. Electronically Signed by: NATANAEL NUÑEZ on 2015-05-26 08:44: 31 PM VB Text End of Report VASCU[facility] Report Specimen (Source) Anatomical Collection Method Collection Time Re ceived Time Location / / Volume Laterality 05/24/2015 1:13 PM EST Glen Doyle MD VASCULAR ORDERABLES Performing Organization Address City/State/ZIP Code Phon e Number [facility] VS Angiogram/intervention (vascular) (05/24/2015 10:44 AM EST) Anatomical Region Laterality Modality X-Ray Angiography Specimen (Source) Anatomical Location Collection Method / Collectio n Time Received Time / Laterality Volume Narrative 06/13/2015 2:07 PM EST Vascular Surgery Angio Procedure Note: Pre-Operative Diagnosis: Left critical l imb ischemia, peripheral arterial disease Post-Operative Diagnosis: same Procedure: 1. Right femoral arterial access 2. Second order selective catheterizatio n of left common femoral artery 3. Left lower extremity angiogram 4. Manual pressure Surgeons: Afua/Betty/Alejandro Dye: Visipaque - 25 ml FT: 4.1 minutes Antibiotics: 2g ancef Heparin: none Protamine: none Sedation: Versed- 1 mg, Fentanyl- 100 mc g Indications: Ms. Perry is a delightful 64 year old fe male w PMH significant for HTN HL DHII PAD sp L SFA to distal peroneal bypass o n 03/18/15 that has now occluded. She presents with right lower extremity rest pain. On PE femoral pulses are palpable bilaterally. She has monophasic pedal si gnals on the right and no signals on the left. Her incision line is not completel y healed with an area of 2 cm tissue separation at the left calf; in addition there is a small ulcer at the lateral/posterior L calf. ABIs are 0.12 DP and 0 PT on the left. Graft duplex shows the graft is occluded. Plan for LL E diagnostic angiogram via R percutaneous EVENT SET UP SPECIALIST access and intervention as warranted (angioplasty of occluded graft if possible). Likely diagnostic fo r target identification in planning for redo bypass. Arm vein mapping following procedure. Risks and benefits have been explained. Risks include bleeding, infec tion, hematoma, nerve/blood vessel injury, renal injury and need for furthe r intervention. Ms. Perry understands and wishes to proceed. Findings: - Dr. Caal was present for the ent irety of this procedure. - Sheath access in right groin - Left lower extremity angiogram: Widely patent left EVENT SET UP SPECIALIST. Profunda femoris is patent. The SFA occludes shortly after i ts origin. There is a 15 cm SFA. The popliteal reconstitutes via collaterals above the knee. The popliteal artery occludes approx 4 cm below the knee. The re are a multitude of collateral vessels. The AT is occluded. The PT is o ccluded for a majority of its course but reconstitutes just below the ankle. The peroneal is initially patent for a few centimeters before occluding; it reconst itutes for about 3cm mid calf, but occludes again and is not patent to the foot. The SFA to peroneal bypass is occluded at its origin and throughout it s course. - Closure device: None, manual pressure x 20 minutes Technical Procedure: The patient was correctly identified in the pre-procedure holding area. After a discussion of the risks and benefits, op erative consent was obtained. The patient was brought to the angio suite a nd placed supine upon the angio table. The patient was prepped and draped in th e usual sterile fashion. A time-out was performed by the attending surgeon. Retr ograde percutaneous access was obtained in the right common femoral artery via m icropuncture technique under flouroscopic guidance after infiltration with local anesthetic. This was then up-sized to a 10 cm 5F sheath over a J-w lisa. The wire was advanced into the infra-renal aorta. A 5F omni-flush henrry ter was advanced into the infrarenal aorta over the wire.The wire and cathete r were then used to selectively catheterize the left common iliac artery . The wire and catheter were advanced down to the common femoral artery. The l eft lower extremity was then imaged in bolus-josé antonio fashion. Findings are as heather cribed above. The catheter was then removed over the w lisa and the wire was removed. The sheath was removed and manual pressu re was held over the puncture site for 20 minutes. Hemostasis was satisfactory. The puncture site was dressed with a dry gauze and tegaderm. Dr. Caal the attending surgeon was scrubbed and present for the entire procedure. Due to the painful nature of the procedure, split doses of fentanyl and Versed were administered by the PHILLIP meléndez during continuous monitoring of pulse, blood pressure and oxygen saturat ion. Plan: Ms. Perry has a TASC D SFA occlusion wit h significant plaque burden extending into the popliteal artery. Her SFA to pe roneal bypass is occluded. The peroneal occludes in the proximal calf. The PT is occluded but recannalizes via collaterals below the ankle. The pt may be a candidate for a jump graft to the distal PT artery. She has adequate cepha lic vein on the right arm for bypass conduit. TcPO2 is 3 at the forefoot and [address] Doyle will call the pt tomorrow to discuss treatment opt ions. - arm vein shows adequate cephalic vein on the right for bypass conduit -TcPO2 3 at forefoot and 33 below the kn ee -stop coumadin (had been taking for abril t patency) -cont ASA/statin - Dr. Doyle to call patient tomorrow to discuss treatment options (redo bypass vs jump graft vs above knee amputation) This plan was discussed with Dr. Pravin fofana and communicated to the patient Attestation signed by Priti Caal MD at 05/30/2015 7:21 AM I was present and scrubbed for the entir e procedure. ? Procedure Note Elicia Caal MD - 06/13/2015F ormatting of this note might be different from the original. Vascular Surgery Angio Procedure Note: Pre-Operative Diagnosis: Left critical l imb ischemia, peripheral arterial disease Post-Operative Diagnosis: same Procedure: 1. Right femoral arterial access 2. Second order selective catheterizatio n of left common femoral artery 3. Left lower extremity angiogram 4. Manual pressure Surgeons: Afua/Betty/Alejandro Dye: Visipaque - 25 ml FT: 4.1 minutes Antibiotics: 2g ancef Heparin: none Protamine: none Sedation: Versed- 1 mg, Fentanyl- 100 mc g Indications: Ms. Perry is a delightful 64 year old fe male w PMH significant for HTN HL DHII PAD sp L SFA to distal peroneal bypass o n 03/18/15 that has now occluded. She presents with right lower extremity rest pain. On PE femoral pulses are palpable bilaterally. She has monophasic pedal si gnals on the right and no signals on the left. Her incision line is not completel y healed with an area of 2 cm tissue separation at the left calf; in addition there is a small ulcer at the lateral/posterior L calf. ABIs are 0.12 DP and 0 PT on the left. Graft duplex shows the graft is occluded. Plan for LL E diagnostic angiogram via R percutaneous EVENT SET UP SPECIALIST access and intervention as warranted (angioplasty of occluded graft if possible). Likely diagnostic fo r target identification in planning for redo bypass. Arm vein mapping following procedure. Risks and benefits have been explained. Risks include bleeding, infec tion, hematoma, nerve/blood vessel injury, renal injury and need for furthe r intervention. Ms. Perry understands and wishes to proceed. Findings: - Dr. Caal was present for the ent irety of this procedure. - Sheath access in right groin - Left lower extremity angiogram: Widely patent left EVENT SET UP SPECIALIST. Profunda femoris is patent. The SFA occludes shortly after i ts origin. There is a 15 cm SFA. The popliteal reconstitutes via collaterals above the knee. The popliteal artery occludes approx 4 cm below the knee. The re are a multitude of collateral vessels. The AT is occluded. The PT is o ccluded for a majority of its course but reconstitutes just below the ankle. The peroneal is initially patent for a few centimeters before occluding; it reconst itutes for about 3cm mid calf, but occludes again and is not patent to the foot. The SFA to peroneal bypass is occluded at its origin and throughout it s course. - Closure device: None, manual pressure x 20 minutes Technical Procedure: The patient was correctly identified in the pre-procedure holding area. After a discussion of the risks and benefits, op erative consent was obtained. The patient was brought to the angio suite a nd placed supine upon the angio table. The patient was prepped and draped in th e usual sterile fashion. A time-out was performed by the attending surgeon. Retr ograde percutaneous access was obtained in the right common femoral artery via m icropuncture technique under flouroscopic guidance after infiltration with local anesthetic. This was then up-sized to a 10 cm 5F sheath over a J-w lisa. The wire was advanced into the infra-renal aorta. A 5F omni-flush henrry ter was advanced into the infrarenal aorta over the wire.The wire and cathete r were then used to selectively catheterize the left common iliac artery . The wire and catheter were advanced down to the common femoral artery. The l eft lower extremity was then imaged in bolus-josé antonio fashion. Findings are as heather cribed above. The catheter was then removed over the w lisa and the wire was removed. The sheath was removed and manual pressu re was held over the puncture site for 20 minutes. Hemostasis was satisfactory. The puncture site was dressed with a dry gauze and tegaderm. Dr. Caal the attending surgeon was scrubbed and present for the entire procedure. Due to the painful nature of the procedure, split doses of fentanyl and Versed were administered by the IR jean meléndez during continuous monitoring of pulse, blood pressure and oxygen saturat ion. Plan: Ms. Perry has a TASC D SFA occlusion wit h significant plaque burden extending into the popliteal artery. Her SFA to pe roneal bypass is occluded. The peroneal occludes in the proximal calf. The PT is occluded but recannalizes via collaterals below the ankle. The pt may be a candidate for a jump graft to the distal PT artery. She has adequate cepha lic vein on the right arm for bypass conduit. TcPO2 is 3 at the forefoot and [address] Doyle will call the pt tomorrow to discuss treatment opt ions. - arm vein shows adequate cephalic vein on the right for bypass conduit -TcPO2 3 at forefoot and 33 below the kn ee -stop coumadin (had been taking for abril t patency) -cont ASA/statin - Dr. Doyle to call patient tomorrow to discuss treatment options (redo bypass vs jump graft vs above knee amputation) This plan was discussed with Dr. Pravin fofana and communicated to the patient Attestation signed by Priti Caal MD at 05/30/2015 7:21 AM I was present and scrubbed for the entir e procedure. Glen Doyle MD IMG IR ORDERABLES (ABNORMAL) Creatinine (05/19/2015 12:02 PM EST) P athologist Signature Creatinine 0.58 (L) 0.70 - DANIEL 1.20 mg/dL [facility] Comment: Please note that the pediatric reference intervals supplied above were not validated at [facility]. Results from pediatri c patients should be interpreted in conjunction to the patient's age, height and muscle mass. Estimated GFR >60 >=60 DANIEL Ryan Comment: [...] the following links into your internet browser. [email or web address] Specimen Anatomical Collection Method Collection Time Receive d Time (Source) Location / / Volume Laterality Blood specimen 05/19/2015 12:02 5 (specimen) PM EST 12:09 PM EST Resulting Agency Comment Spec In Lab Glen Doyle MD CHEMISTRY ORDERABLES Performing Organization Address City/State/[facility] [place] [address] [facility] documented in this encounter Visit Diagnoses Diagnosis PAD (peripheral artery disease) Peripheral vascular disease, unspecified Occlusion of graft of lower extremity, i nitial encounter PAD (peripheral artery disease) Peripheral vascular disease, unspecified Occlusion of graft of lower extremity, i nitial encounter documented in this encounter Care Teams Musical Performer Relationship Specialty Start Date End Date Gordy Gregg MD PCP - General Family Medicine 05/19/[address] [place] [address] documented as of this encounter
--- OUTSIDE RECORDS SUMMARY | 2022-01-25 01:00 | XMS_ITS | Encounter Summary ---
:1950 [place] [address] Care Team Providers Name Role Phone Gordy Moon MD Primary Care Provider [phone] Reason for Visit Auth/Cert - Closed Specialty Diagnoses / Procedures Referred By Contact Refer red To Contact Diagnoses SFA to peroneal bypass occluded graft Procedures PRO VEIN IN SITU BYPASS GRAFT, FEM-TIB PRO VEIN BYPASS GRAFT, FEM-TIBIAL @BYPASS GRAFT, FEM.-ANT. TIB, POST. TIB, PERONEAL, DP W\ VEIN CONDUIT ([place] [address]) Referral ID Status Reason Start Date Expiration Date Visits Requ ested Visits Authorized [id number] Closed 1 1 Encounter Details Date Type Department Care Team Description 05/26/2015 Surgery Main Operating Room Glen Doyle MD @BYPASS GRAFT, FEM-ANT [facility] R TIBIAL, -POST TIBIAL, [facility] DR CHE, -DP W\ [facility] VASCULAR SURG LUCILA SYNTHETIC CONDUIT ([place] [id number] 23.66) [place] [address] [phone] Social History Tobacco Use Types Packs/Day Years Used Date Never Smoker Smokeless Tobacco: Never Used Alcohol Use Standard Drinks/Week Comments No 0 (1 standard drink = 0.6 oz pure alcoho l) Sex Assigned at Date Recorded Not on file documented as of this encounter Last Filed Vital Signs Vital Sign Reading Time Taken Comments Blood Pressure 145/55 05/26/2015 3:00 PM EST Pulse 52 05/26/2015 3:00 PM EST Temperature 37 ??C (98.6 ??F) 05/26/2015 2:30 PM EST Respiratory Rate 10 05/26/2015 3:00 PM EST Oxygen Saturation 99% 05/26/2015 3:00 PM EST Inhaled Oxygen Concentration - - Weight 45.8 kg (101 lb) 05/26/2015 8:37 AM EST Height 152.4 cm (5') 05/26/2015 [...] bovine pericardial patch angioplasty, Thrombectomy of occluded PHARMACY TECHNOLOGY INSTRUCTOR-peroneal vein bypass graft. History of Presentation: 64 [...] Course: In surgery, subacute thrombosed plaque in PHARMACY TECHNOLOGY INSTRUCTOR as likely underlying etiology for bypass graft [...] Doppler PT/DP. Important Studies and Lab Data: [facility] Results Component Value Date INR 1.5* [...] For any problems or questions please call [phone] SAMIA Lopez, document management specialist Nurse Clinician For issues on weeknights after 5pm and weekends please call [phone] and ask for the Vascular Fellow paediatric surgeon. General Instructions None Future Appointments and Orders Future Appointments Provider Department Dept Phone 06/27/2015 12:30 PM Papo Delgado RVT Vascular Lab [phone] 06/27/2015 2:00 PM Hope Virk, TEST ENG Vascular Surgery [phone] Future Orders Complete By Expires SOSA, legs, multiple levels [VAS8 Custom] 06/26/2015 (Approximate) 05/27/2016 Process Instructions: Scheduling Instructions: Please schedule with one month clinic f/u and duplex Questions: Indication for study/signs & symptoms: s/p LLE fem endart and fem-PT bypass Question to be answered: bloodflow to feet Should this service/procedure be billed to the research sponsor?: Which location will this be performed?: [facility] Bypass Graft Assess [VAS12 Custom] 06/26/2015 (Approximate) 05/27/2016 Process Instructions: Scheduling Instructions: Please schedule with one month clinic f/u and SOSA's Questions: Laterality: Left Which extremity?: Lower Indication for study/signs & symptoms: s/p left fem endart and left fem-PT bypass Question to be answered: patency Should this service/procedure be billed to the research sponsor?: Which location will this be performed?: [facility] Referral to Home Health - at DISCHARGE [[id number] CPT(R)] As directed Process Instructions: Scheduling Instructions: [...] nurse practitioner, clinical nurse specialist or physician's perinatal breastfeeding assistant who is working directly with them, [...] from this patient'sPCP: GORDY MOON MD [address] [place] [address] All VNA agencies which cover the area of patient's residence have been reviewed, either verbally or in writing, and patient/family have chosen the indicated home health care agency for home services. [facility]. PHONE: [phone] FAX: [phone] RN visits to begin on day after [...] indicated. Questions: Agency name and contact information: [facility] Patient location post discharge: home What services are requested: Registered Nurse Physical Therapy Occupational Therapy Start date: Responsible MD post discharge contact info: [facility] Dr. Glen Doyle and PCP Gordy Moon [...] For any problems or questions please call [phone] SAIMA Lopez, document management specialist Nurse Clinician For issues on weeknights after 5pm and weekends please call [phone] and ask for the Vascular Fellow paediatric surgeon. documented in this encounter Medications at Time [...] Take 1 tablet by mouth 15 tablet 06/01/2015 mg Tablet as needed (as needed [...] pericardial patch angioplasty 3. Thrombectomy of occluded PHARMACY TECHNOLOGY INSTRUCTOR-peroneal vein bypass graft PMH: Past Medical History [...] CONDUIT ([place] [address]) performed by Glen Doyle MD at [facility] MAIN OR ??? Pro bypass graft othr, fem-tibial Left 05/26/2015 @BYPASS GRAFT, FEM-ANT TIBIAL, -POST TIBIAL, -PERONEAL, -DP W\ SYNTHETIC CONDUIT performed by Glen Doyle MD at [facility] MAIN OR ??? Pro bypass graft vein patch/cuff, synthetic Left 05/26/2015 PLACEMENT VEIN PATCH OR CUFF AT DISTAL ANASTOMOSIS OF BYPASS GRAFT, SYNTHETIC CONDUIT , RODRIGUEZ-COLLAR, RACHELLE-PATCH, ADD-ON CODE, LOWER EXTREMITY performed by Glen Doyle MD at [facility] MAIN OR ??? Pro thromboendartectmy iliofemoral Left 05/26/2015 @ENDARTERECTOMY, ILIOFEMORAL W OR W/O PATCH GRAFT performed by Glen Doyle MD at [facility] MAIN OR ??? Pro reoperation, bypass graft Left 05/26/2015 @RE-OP FOR RE-DO LOWER EXTREMITY BYPASS GRAFT, >1 MONTH P\ ORIGINAL SURGERY, ADD-ON CODE performed by Glen Doyle MD at [facility] MAIN OR Social History: Patient lives w/ her significant other in a one-level ranch with a ramp to enter. There are stairs leading down to the basement, but patient reports she does not need to use them. Patient was an independent ambulator mostly using a cane, but also has a walker. 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 Her significant other will be at home [...] P: Monitor until formal discharge Time In/Out: 3304-4572 Total time spent with patient: 45 minutes Total timed interventions: 45 minutes Billin functional activity Pager: [phone] TRISHA BECKFORD PT Physical Therapy Rehabilitation Department Joanna Dee MD [...] or drainage. Doppler PT/DP. Labs: Recent Labs 05/28/1541305/27/15520 WBC 10.2* 8.6 HGB 10.6* 10.9* HCT 31.7* 33.1* PLATELET 173 170 Recent Labs 05/28/1541305/27/15520 NA 137 134* K 3.6 3.5 CL 101 99 CO2 24 25 BUN 5* 6* CREATININE 0.39* 0.48* Recent Labs 05/28/1541305/27/15520 CALCIUM 7.9* 7.6* Coags Lab Results Component [...] erythemaor drainage. Doppler PT/DP. Labs: Recent Labs 05/27/1552005/26/15813 WBC 8.6 6.6 HGB 10.9* 13.0 HCT 33.1* 38.5 PLATELET 170 240 Recent Labs 05/27/15 0505/26/1514 NA 134* 141 K 3.5 4.2 CL [...] (WTD over medial calf wound) - PT/OT Marogt Sutton RN - 05/27/2015 3:27 PM EST Office of Care Management (OCM) / [employer](CM)/ Initial Assessment Discussed patient with Provider Team and with staff electrical engineerJOSEPH Reddy. Reviewed record and interviewed patient. Introduced/reviewed [...] ADVANCE DIRECTIVES: None on file here at [facility] HEALTH /PRESCRIPTION COVERAGE: Blue Cross/[employer] Shield [place] CURRENT HOME/COMMUNITY SERVICES/EQUIPMENT: DME: has cane and walker at home LITHOGRAPHIC PLATE MAKER REFERRAL: as needed PRIMARY CARE PHYSICIAN: GORDY MOON MD [address] / [facility] [address] DISCHARGE NEEDS: Message to Process Maintenance Technician for referral to [facility]. Care Management note for MD Discharge Summary (with VNA information) completed and pended by investment underwriter. Discussion with security assurance specialist. At time of patient's discharge, security assurance specialist to call report to VNA and MD Discharge Summaryto be faxed. TRANSPORTATION @ D/C: family/friend PLAN: CM will continue to monitor progress, follow for continuity of care and assist with discharge planning while hospitalized . Niki Alicia RN - 05/26/2015 7:38 PM EST 1700- [...] pericardial patch angioplasty 3. Thrombectomy of occluded PHARMACY TECHNOLOGY INSTRUCTOR-peroneal vein bypass graft Procedure(s): @BYPASS GRAFT, FEM-ANT [...] Surgery Vascular Surgery Service Pgr [phone] Debi Mata, RN - 05/26/2015 2:49 PM EST Pt arrived sleepy with no c/o pain. VSS, doppler pulse in left foot , PT only. 1600: Pain easing with pain med. Wants to sleep. 1615: Attempting to give report, RN not available. 1622: Family in to visit. documented in this encounter H&P Notes NoahGosia talbotconnor Good - 05/26/2015 8:31 AM EST Please see [...] Outcome: Outcome (s) achieved Date Met: 05/29/15 05/26/150 05/28/15 0221 Individualization Patient Specific Goals -- rest and sleep, pain control, anticoagulation Patient Specific Interventions -- PRN Tylenol, PRN Oxycodone. scheduled, Gabapentin, care clustered,Heparin gtt Mutuality/Individual Preferences What anxieties, fears or concerns do you have about your health or care? how things are going to turner off -- What questions do you have about [...] Assistive Device -- -- Front wheel walker Sina Fall Risk History of Falling -- 0 [...] area) Plan of Care - Migue Richardson V RN - 05/29/2015 5:02 AM EST Problem: [...] PREVENTION: Assistance: walker Supervision: Standby assist Surveillance: pricila Gonsalez rounding CPG GOAL OUTCOME EVALUATION: Goal: Individualization and Mutuality Outcome: Ongoing (Interventions Implemented as Appropriate) 05/28/15 0221 Individualization Patient Specific Goals rest and sleep, pain control, anticoagulation Patient Specific Interventions PRN Tylenol, PRN Oxycodone. scheduled, Gabapentin, care clustered, Heparin gtt Goal: Fall Prevention-Safe Patient Handling Outcome: Ongoing (Interventions Implemented as Appropriate) 05/28/15 0908 05/28/15 1956 Musculoskeletal Interventions Activity/Level of Assistance up in [...] PREVENTION: Assistance: walker Supervision: Standby assist Surveillance: Sunshine purposeful rounding CPG GOAL OUTCOME [...] or care? how things are going to turner off -- What questions do you have about [...] acute pain Initial Assessments - Calvin Zavala, OT - 05/27/2015 1:59 PM EST Occupational Therapy Evaluation Patient profile: Chan Perry is a 64 y.o. female patient of Glen Tracy MD, admitted on05/26/2015 with a PMH of critical limb ischemia, now s/p: 1. Left common femoral to posterior tibial bypass graft 2. Left ileofemoral endarterectomy with bovine pericardial patch angioplasty 3. Thrombectomy of occluded PHARMACY TECHNOLOGY INSTRUCTOR-peroneal vein bypass graft Past Medical History Diagnosis [...] CONDUIT ([place] [address]) performed by Glen Doyle MD at [facility] MAIN OR ??? Pro bypass graft othr, fem-tibial Left 05/26/2015 @BYPASS GRAFT, FEM-ANT TIBIAL, -POST TIBIAL, -PERONEAL, -DP W\ SYNTHETIC CONDUIT performed by Glen Doyle MD at [facility] MAIN OR ??? Pro bypass graft vein patch/cuff, synthetic Left 05/26/2015 PLACEMENT VEIN PATCH OR CUFF AT DISTAL ANASTOMOSIS OF BYPASS GRAFT, SYNTHETIC CONDUIT , RODRIGUEZ-COLLAR, RACHELLE-PATCH, ADD-ON CODE, LOWER EXTREMITY performed by Glen Doyle MD at [facility] MAIN OR ??? Pro thromboendartectmy iliofemoral Left 05/26/2015 @ENDARTERECTOMY, ILIOFEMORAL W OR W/O PATCH GRAFT performed by Glen Doyle MD at [facility] MAIN OR ??? Pro reoperation, bypass graft Left 05/26/2015 @RE-OP FOR RE-DO LOWER EXTREMITY BYPASS GRAFT, >1 MONTH P\ ORIGINAL SURGERY, ADD-ON CODE performed by Glen Doyle MD at [facility] MAIN OR Social History: Patient lives with [...] evaluation Total timed interventions: 0 minutes Pager: [phone] CALVIN ZAVALA OT 05/27/2015 Occupational Therapy Rehabilitation [...] pericardial patch angioplasty 3. Thrombectomy of occluded PHARMACY TECHNOLOGY INSTRUCTOR-peroneal vein bypass graft PMH: Past Medical History [...] CONDUIT ([place] [address]) performed by Glen Doyle MD at [facility] MAIN OR ??? Pro bypass graft othr, fem-tibial Left 05/26/2015 @BYPASS GRAFT, FEM-ANT TIBIAL, -POST TIBIAL, -PERONEAL, -DP W\ SYNTHETIC CONDUIT performed by Glen Doyle MD at [facility] MAIN OR ??? Pro bypass graft vein patch/cuff, synthetic Left 05/26/2015 PLACEMENT VEIN PATCH OR CUFF AT DISTAL ANASTOMOSIS OF BYPASS GRAFT, SYNTHETIC CONDUIT , RODRIGUEZ-COLLAR, RACHELLE-PATCH, ADD-ON CODE, LOWER EXTREMITY performed by Glen Doyle MD at [facility] MAIN OR ??? Pro thromboendartectmy iliofemoral Left 05/26/2015 @ENDARTERECTOMY, ILIOFEMORAL W OR W/O PATCH GRAFT performed by Glen Doyle MD at [facility] MAIN OR ??? Pro reoperation, bypass graft Left 05/26/2015 @RE-OP FOR RE-DO LOWER EXTREMITY BYPASS GRAFT, >1 MONTH P\ ORIGINAL SURGERY, ADD-ON CODE performed by Glen Doyle MD at [facility] MAIN OR Social History: Patient lives w/ her significant other in a one-level ranch with a ramp to enter. There are stairs leading down to the basement, but patient reports she does not need to use them. Patient was an independent ambulator mostly using a cane, but also has a walker. 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 Her significant other will be at home during the day, and her sister lives nearby. She has a cane vandana walker at home. Precautions/Special Considerations: Fall Risk, Bleeding precautions, Oliva Subjective: ???My left leg hurts Objective: Pt seen for PT evaluation today. Pain: 7/10 LLE (nursing aware; patient received pain medication) [...] minutes Monse Johnson DPT, IRA 05/27/2015 Pager: [phone] Physical Therapy Rehabilitation Department Plan of Care [...] Supervision: 1-2 assist with bed mobility Surveillance: pricila Gonsalez roundmichaelle CPG GOAL OUTCOME EVALUATION: Goal: Individualization and Mutuality Outcome: Ongoing (Interventions Implemented as Appropriate) 05/27/15449 Individualization Patient Specific Goals rest and sleep, pain control, neuro vascular ckecks Patient Specific Interventions care clustered, PRN Tylenol, PRN Oxycodone, scheduled Gabapentin Goal: Fall Prevention-Safe Patient Handling Outcome: Ongoing (Interventions Implemented as Appropriate) 05/26/15195805/26/15219905/27/15 033 Musculoskeletal Interventions Positioning -- -- with 2-person [...] Chela Blancas - 05/26/2015 2:44 PM EST [facility] Operative Note Patient Name: Chan Perry : [id number] MR#: [id number] Case Date: 05/26/2015 Surgeon: Surgeon(s) and Role: * Glen Doyle MD - Primary * Debi Perez MD - Resident-Surgeon Kelvin * Chela Blancas MD - Fellow * Marcia Wright MD - Professor Of Family Medicine Surgeon Preoperative diagnosis: critical limb ischemia with rest pain Postoperative diagnosis: critical limb ischemia with rest pain Procedure(s): 1. Left common femoral to posterior tibial bypass graft with 6mm non-ringed PTFE and distal vein cuff (modification for re-do operation, 374[address]) 2. Left ileofemoral endarterectomy with bovine pericardial patch angioplasty 3. Thrombectomy of occluded PHARMACY TECHNOLOGY INSTRUCTOR-peroneal vein bypass graft. Findings: Subacute thrombosed plaque in PHARMACY TECHNOLOGY INSTRUCTOR as likely underlying etiology for bypass graft [...] clamped. An arteriotomy was made over the PHARMACY TECHNOLOGY INSTRUCTOR and extended with Wang scissors. This re vealed an acutely thrombosed PHARMACY TECHNOLOGY INSTRUCTOR and proximal bypass graft. The graft was thrombectomized. The PHARMACY TECHNOLOGY INSTRUCTOR and distal external iliac artery were endarterectomized in the standard fashion. The profunda artery was everted and endarterectomized as well. The PHARMACY TECHNOLOGY INSTRUCTOR was then patched with bovine pericardial patch secured in a running fashion with 6-0 prolene. The proximal anastomosis for the new PHARMACY TECHNOLOGY INSTRUCTOR to PT bypass was made over this [...] AM EST artery dise ase) PATCH GRAFT (WRU Critical lower limb 19.86) ischemia PLACEMENT VEIN PATCH Yes 05/26/2015 11:00 PAD (peripheral OR CUFF AT DISTAL AM EST artery disease ) ANASTOMOSIS OF BYPASS Critical lower limb GRAFT, SYNTHETIC ischemia CONDUIT , MICHAEL-COLLAR, RACHELLE-PATCH, ADD-ON CODE, LOWER EXTREMITY (WRVU 4.04) @BYPASS GRAFT, Yes 05/26/2015 11:00 PAD (peripheral FEM-ANT TIBIAL, -POST AM EST artery dis ease) TIBIAL, -PERONEAL, Critical lower limb -DP W\ SYNTHETIC ischemia CONDUIT (WRVU 23.66) TYPE AND SCREEN, SDP Routine 05/26/2015 8:15 AM Critical lower limb (FUTURE SURGERY, [facility] EST ischemia SAME DAY PROGRAM PAD (peripheral [...] Component Value Ref Test Analysis Performed At [facility] Range Method Time Signature VB Text Department: Vascular Surgery Lab VASCUBASE Report Patient: [id number] (CHAN PERRY) CPT: 47566 ICD10: I70.622;I73.9 Referring Physician: GLEN DOYLE ?? Indications: ??s/p L PHARMACY TECHNOLOGY INSTRUCTOR endart and fem-SUPERVISOR RECORD PRESS bypass ICD10 Diagnosis Code: I70.622, I73.9 Findings: Left ?PSV (cm/s) ??EDV ??Location ? Inflow Artery ? 14 ?0 ??Common Femoral Artery, Left ?? Inflow Anastomosis ? Common Femoral Artery, Left ?? Proximal Graft ? 0 ?0 ? Distal Graft ? 0 ?0 ? Outflow Anastomosis ?Left Posterior Tibial Artery ?? Outflow Artery (Graft) ? Left Posterior Tibial Artery ?? Interpretation: Left- Fem-SUPERVISOR RECORD PRESS bypass graft is occluded. No significant holt [...] Component Value Ref Test Analysis Performed At [facility] Range Method Time Signature VB Text Department: Vascular Surgery Lab VASCUBASE Report Patient: [id number] (CHAN PERRY) CPT: 92267 ICD10: I73.9;I70.622 Referring Physician: GLEN DOYLE ?? Indications: s/p L fem endart and fem-SUPERVISOR RECORD PRESS bypass Diabetes mellitus: no ICD10 Diagnosis Code: [...] ?0.21 ??Monophasic ? Posterior Tibial (Ankle) Art lucila ??42 ?0.28 ??Monophasic ? Great Toe ?7 ? 0.05 ?? Left ? Pressure (mm Hg) ?? SOSA ??Waveform ? TBI ?? Brachial Artery ?150 ? Dorsalis Pedis (Ankle) Arter y ?13 ?0.09 ??Monophasic ? Posterior Tibial (Ankle) Art lucila ??28 ?0.19 ??Monophasic ? Great Toe ?0 [...] Glucose 185 65 - 199 CERNER mg/dL [facility] Comment: Supplemental ranges: <140 mg/dL before meals <180 mg/dL all other times of the day Specimen Anatomical Collection Method Collection Time Receive d Time (Source) Location / / Volume Laterality Blood specimen 05/29/2015 11:33 5 (specimen) AM EST 11:33 AM EST Glen Doyle MD POINT OF CARE TEST ORDERABLE S Performing Organization Address City/State/ZIP Code Phon e Number [address] CERNER MILLENNIUM (ABNORMAL) POCT Glucose (05/29/2015 7:23 AM EST) P athologist Signature POC [...] Address City/State/ZIP Code Phon e Number [address] CERNER MILLENNIUM (ABNORMAL) Differential, [...] Doyle MD HEMATOLOGY ORDERABLES Performing Organization Address City/[facility] [place] [address] CERNER MILLENNIUM (ABNORMAL) Hemogram [...] Organization Address City/State/[place] [address] CERNER MILLENNIUM (ABNORMAL) Prothrombin [...] Doyle MD HEMATOLOGY ORDERABLES Performing Organization Address City/[facility]/ZIP Code Phon e Number [address] CERNER MILLENNIUM (ABNORMAL) APTT (05/29/2015 [...] Organization Address City/State/[place] [address] CERNER MILLENNIUM (ABNORMAL) Basic Metabolic Panel (non-fasting) (05/29/2015 6:47 AM EST) athologist Signature Glucose Lvl 206 (H) 65 - 199 CERNER mg/dL MILLENNIUM Comment: Diabetes: >=200 mg/dL plus symp toms BUN 7 (L) 8 - 18 mg/dL CERNER MILLENNIUM Creatinine 0.43 (L) 0.70 - 1.20 mg/dL CERNER MILL ENNIUM Comment: Please note that the pediatric reference intervals supplied above were not validated at [facility]. Results from pediatri c patients should be [...] the following links into your internet browser. [email or web address] [email or web address] Specimen Anatomical Collection Method Collection Time Receive d Time (Source) Location / / Volume Laterality Blood specimen 05/29/2015 6:47 AM 015 6:52 (specimen) EST AM EST Resulting Agency Comment Spec In Lab Glen Doyle MD CHEMISTRY ORDERABLES Performing Organization Address City/State/[place] [address] CERNER MILLENNIUM (ABNORMAL) APTT (05/29/2015 12:34 AM EST) P athologist Signature PTT 98 (H) 25 - [...] Address City/State/ZIP Code Phon e Number [address] CERNER MILLENNIUM (ABNORMAL) POCT Glucose (05/28/2015 8:17 PM EST) P athologist Signature POC Glucose 200 (H) 65 - 199 CERNER [facility]dL [facility] Comment: Supplemental ranges: <140 mg/dL before meals <180 mg/dL all other times of the day Specimen Anatomical Collection Method Collection Time Receive d Time (Source) Location / / Volume Laterality Blood specimen 05/28/2015 8:17 PM 015 8:17 (specimen) EST PM EST Glen Doyle MD POINT OF CARE TEST ORDERABLE S Performing Organization Address City/[facility]/ZIP Code Phon e Number [address] CERNER MILLENNIUM (ABNORMAL) APTT [...] Doyle MD HEMATOLOGY ORDERABLES Performing Organization Address City/[facility]/ZIP Code Phon e Number [address] CERNER MILLENNIUM POCT Glucose (05/28/2015 4:44 PM EST) P athologist Signature POC Glucose 190 65 - 199 CERNER mg/dL ENNIUM Comment: [...] Address City/State/ZIP Code Phon e Number [address] CERNER MILLENNIUM (ABNORMAL) APTT [...] Doyle MD HEMATOLOGY ORDERABLES Performing Organization Address City/[facility]/ZIP Code Phon e Number [address] CERNER MILLENNIUM (ABNORMAL) POCT Glucose (05/28/2015 11:34 AM EST) P athologist Signature POC Glucose 233 (H) 65 - 199 CERNER mg/dL [facility] Comment: Supplemental ranges: <140 mg/dL before meals <180 mg/dL all other times of the day Specimen Anatomical Collection Method Collection Time Receive d Time (Source) Location / / Volume Laterality Blood specimen 05/28/2015 11:34 5 (specimen) AM EST 11:34 AM EST Glen Doyle MD POINT OF CARE TEST ORDERABLE S Performing Organization Address City/[facility]/ZIP Code Phon e Number [address] CERNER MILLENNIUM (ABNORMAL) APTT [...] Doyle MD HEMATOLOGY ORDERABLES Performing Organization Address City/[facility]/ZIP Code Phon e Number [address] CERNER MILLENNIUM (ABNORMAL) POCT [...] CARE TEST ORDERABLE S Performing Organization Address City/[facility]/ZIP Code Phon e Number [address] CERNER MILLENNIUM (ABNORMAL) Differential, Automated (05/28/2015 4:14 AM EST) Patholo gist Method Time Signature Neutrophils % 74.0 [...] Organization Address City/State/[place] [address] CERNER MILLENNIUM (ABNORMAL) Hemogram [...] Doyle MD HEMATOLOGY ORDERABLES Performing Organization Address City/[facility]/[place] [address] [facility] ([facility]NORMAL[facility] Prothrombin Time (05/28/2015 4:14 AM EST) P athologist Signature PT 16.7 (H) 12.0 - 15.0 CERNER sec MILLENNIUM Comment: Transfusion Committee Guidelines: INR less than 2.0, PTT less than OR equal to 43.5 seconds, or Fibrinogen greater t romero or equal to 100 mg/dl indicate adequate procoagulant activity for hemos tasis in patients without underlying bleeding disorders. INR 1.3 (H) 0.9 - 1.1 [facility] Specimen Anatomical Collection Method Collection Time Receive d Time (Source) Location / / Volume Laterality Blood specimen 05/28/2015 4:14 AM 015 4:28 (specimen) EST AM EST Resulting Agency Comment Spec In Lab Glen Doyle MD HEMATOLOGY ORDERABLES Performing Organization Address City/[facility]/ZIP Code Phon e Number [address] [facility] (ABNORMAL) APTT (05/28/2015 4:14 AM EST) P athologist Signature PTT 96 (H) 25 - 35 sec [facility] Comment: Recommended therapeutic PTT range for fu ll dose unfractionated heparin is 80-114 seconds. Specimen Anatomical Collection Method Collection Time Receive d Time (Source) Location / / Volume Laterality Blood specimen 05/28/2015 4:14 AM 015 4:28 (specimen) EST AM EST Resulting Agency Comment Spec In Lab Glen Doyle MD HEMATOLOGY ORDERABLES Performing Organization Address City/[facility]/[place] [address] [facility] Basic Metabolic Panel (non-fasting) (05/28/2015 4:14 AM EST) athologist Signature Glucose Lvl 194 65 - 199 CERNER mg/dL MILLENNIUM Comment: Diabetes: >=200 mg/dL plus symp toms BUN 5 (L) 8 - 18 mg/dL CERNER MILLENNIUM Creatinine 0.39 (L) 0.70 - 1.20 mg/dL CERNER MILL ENNIUM Comment: Please note that the pediatric reference intervals supplied above were not validated at [facility]. Results from pediatri c patients should be [...] the following links into your internet browser. [email or web address] [email or web address] Specimen Anatomical Collection Method Collection Time Receive d Time (Source) Location / / Volume Laterality Blood specimen 05/28/2015 4:14 AM 015 4:28 (specimen) EST AM EST Resulting Agency Comment Spec In Lab Glen Doyle MD CHEMISTRY ORDERABLES Performing Organization Address City/State/[place] [address] C[facility]ER [facility] (ABNORMAL) APTT (05/27/2015 11:21 PM EST) athologist Signature PTT >160.0 25 - 35 CERNER (Critical) MILLENNIUM Comment: Called by: blossom, Read back by: migue fong, Date/Time:05/28/15 00:14. [...] Address City/State/ZIP Code Phon e Number [address] CERNER MILLENNIUM POCT Glucose (05/27/2015 8:29 PM EST) athologist Signature POC Glucose 176 65 - 199 CERNER mg/dL IUM Comment: [...] Address City/State/ZIP Code Phon e Number [address] C[facility]ER [facility] (ABNORMAL) POCT Glucose (05/27/2015 4:38 PM EST) athologist Signature POC Glucose 223 (H) 65 - 199 CERNER mg/dL IUM Comment: Supplemental ranges: <140 mg/dL before meals <180 mg/dL all other times of the day Specimen Anatomical Collection Method Collection Time Receive d Time (Source) Location / / Volume Laterality Blood specimen 05/27/2015 4:38 PM 015 4:38 (specimen) EST PM EST Glen Doyle MD POINT OF CARE TEST ORDERABLE S Performing Organization Address City/[facility]/[place] [address] CERNER [facility]ILL[facility] (ABNORMAL) APTT [...] Doyle MD HEMATOLOGY ORDERABLES Performing Organization Address City/[facility]/ZIP Code Phon e Number [address] CERNER [facility]ILLENNI[facility] (ABNORMAL) POCT [...] CARE TEST ORDERABLE S Performing Organization Address City/[facility]/[place] [address] CERNER [facility]ILL[facility]NI[facility] (ABNORMAL) APTT [...] Address City/State/ZIP Code Phon e Number [address] CERNER MILLENNIUM POCT Glucose [...] CARE TEST ORDERABLE S Performing Organization Address City/[facility]/ZIP Code Phon e Number [address] CERNER [facility]ILL[facility]NI[facility] (ABNORMAL) Differential, [...] Doyle MD HEMATOLOGY ORDERABLES Performing Organization Address City/[facility]/[place] [address] CERNER [facility]ILLENNI[facility] (ABNORMAL) Hemogram (05/27/2015 [...] Doyle MD HEMATOLOGY ORDERABLES Performing Organization Address City/[facility]/[place] [address] CERNER MILLENNIUM (ABNORMAL) APTT (05/27/2015 5:21 AM EST) P athologist Signature PTT 42 (H) 25 - [...] Organization Address City/State/[place] [address] CERNER MILLENNIUM (ABNORMAL) Basic [...] intervals supplied above were not validated at [facility]. Results from pediatri c patients should be [...] the following links into your internet browser. [email or web address] [email or web address] Specimen Anatomical Collection Method Collection Time Receive d Time (Source) Location / / Volume Laterality Blood specimen 05/27/2015 5:21 AM 015 5:27 (specimen) EST AM EST Resulting Agency Comment Spec In Lab Glen Doyle MD CHEMISTRY ORDERABLES Performing Organization Address [facility] Phon e Number [address] CERNER MILLENNIUM POCT Glucose [...] CARE TEST ORDERABLE S Performing Organization Address [facility] Phon e Number [address] CERNER MILLENNIUM POCT Glucose [...] Organization Address City/State/[place] [address] CERNER MILLENNIUM POCT Glucose [...] Organization Address City/State/[place] [address] CERNER MILLENNIUM (ABNORMAL) BLOOD [...] MILLENNI UM Gluc Whole Bld 178 mg/dL [facility] MILLENNI UM Comment: Diabetes: >=200 mg/dL plus symp toms. Specimen Anatomical Collection Method Collection Time Receive d Time (Source) Location / / Volume Laterality Blood specimen 05/26/2015 11:24 5 (specimen) AM EST 11:24 AM EST Glen Doyle MD CHEMISTRY ORDERABLES Performing Organization Address City/[facility]/[place] [address] CERNER MILLENNIUM Antibody screen (05/26/2015 8:15 AM EST) [facility] gist Method Time Signature Ab Screen Negative [facility] Interp MILLENNIUM Expires at 05/29/2015 [facility] 2359 on: MILLENNIUM Specimen Anatomical Collection Method Collection Time Receive d Time (Source) Location / / Volume Laterality Blood specimen 05/26/2015 8:15 AM 015 8:17 (specimen) EST AM EST Resulting Agency Comment Spec In Lab Glen Doyle MD BLOOD BANK ORDERABLES Performing Organization Address City/[facility]/ZIP Code Phon e Number [address] [facility] M[facility] ABO/Rh Typing (05/26/2015 8:15 AM EST) P athologist Signature ABORh Type A Neg [facility] MILLENNIUM Specimen Anatomical Collection Method Collection Time Receive d Time (Source) Location / / Volume Laterality Blood specimen 05/26/2015 8:15 AM 015 8:17 (specimen) EST AM EST Resulting Agency Comment Spec In Lab Glen Doyle MD BLOOD BANK ORDERABLES Performing Organization Address City/[facility]/ZIP Code Phon e Number [address] [facility] M[facility] Differential, Automated (05/26/2015 8:14 AM EST) P athologist Signature Neutrophils % 70.6 % [facility] MILLENNIUM Neutr Abs (ANC) 4.68 1.50 - CERNER 6.30 MILLENNIUM x10(3)/mcL Lymphocytes % 19.9 % CERNER MILLENNIUM Lymphocytes Abs 1.3 1.0 - 3.6 [...] Organization Address City/State/ZIP Code Phon e Number [place] [id number] CERNER MILLENNIUM Hemogram (05/26/2015 [...] Organization Address City/State/ZIP Code Phon e Number [place] [phone] CERNER MILLENNIUM (ABNORMAL) Basic [...] intervals supplied above were not validated at [facility]. Results from pediatri c patients should be [...] the following links into your internet browser. [email or web address] [email or web address] Specimen Anatomical Collection Method Collection Time Receive d Time (Source) Location / / Volume Laterality Blood specimen 05/26/2015 8:14 AM 015 8:21 (specimen) EST AM EST Resulting Agency Comment Spec In Lab Glen Doyle MD CHEMISTRY ORDERABLES Performing Organization Address City/[facility]/ZIP Code Phon e Number [address] CERNER MILLENNIUM APTT (05/26/2015 [...] Doyle MD HEMATOLOGY ORDERABLES Performing Organization Address City/[facility]/ZIP [facility] [place] [address] CERNER MILLENNIUM Prothrombin Time [...] Address City/State/ZIP [place] [address] [facility] documented in this encounter Visit Diagnoses Diagnosis Critical lower limb ischemia Unspecified circulatory system disorder PAD (peripheral artery disease) Peripheral vascular disease, unspecified Claudication Peripheral vascular disease, unspecified PAD (peripheral artery disease) Peripheral vascular disease, unspecified Critical lower limb ischemia Unspecified circulatory system disorder documented in this encounter Administered Medications Inactive Administered Medications - up to 3 most recent administrations Medication Order MAR Action Action Date Dose Rate Site gelatin adsorbable Given 05/26/2015 12:46 PM 6 each 19- Surgical Site (GELFOAM) sponge EST ONCE PRN, Starting on Yadira 05/26/15 at 1246, Until Yadira 05/26/15 at 1445, Intra-Operative (Intra-Procedure) papaverine injection Given 05/26/2015 1:26 PM EST 60 mg ONCE PRN, Starting on Yadira 05/26/15 at 1326, Until Yadira 05/26/15 at 1445, Intra-Operative (Intra-Procedure), Routine thrombin (Bovine) Given 05/26/2015 12:46 PM 20,000 Units 19- Surgical Site (THROMBINAR) kit EST ONCE PRN, Starting on Yadira 05/26/15 at 1246, Until Yadira 05/26/15 at 1445, Intra-Operative (Intra-Procedure) documented in this encounter Active and Recently Administered Medications Times are shown in EST. Scheduled Medication Order 05/27/2015 05/28/2015 05/29/2015 aspirin EC tablet 81 mg (CANCELED) 0906 (Given - Provi shmuel: Maureen Wilder RN) 0908 (Given - Provider: Maureen Wilder RN) 0918 (Gi aide - Provider: Elizabeth Magana RN) 81 mg, Oral, DAILY, First dose on Sat at 0900, Until Discontinued, Routine ceFAZolin (ANCEF) 1g in dextrose 5% 50mL (COMPLETED) 0 413 (Given - Provider: Migue Johnson RN) 1,000 mg (1 g), Intravenous, EVERY 8 MP RS, 2 doses, First dose on Yadira 05/26/15 at 1515, Last dose on Sat05/26/15 at 2315, for 30 Minutes, Redose after 4 hours, Recovery (Recovery-Hospital Unit), Indication for (Active or Suspected): Prophylaxis enoxaparin (LOVENOX) injection 50 mg (COMPLETED) 919 (Given - Provider: Elizabeth Magana RN) 50 mg (1 mg/kg/dose ? 50 kg), Subcutaneous, ONCE, 1 dose, 05/29/15 at 0900, Routine gabapentin (NEURONTIN) capsule 300 mg 09 (Given - Pr ovider: Maureen Wilder RN)1619 (Given - Provider: Maureen Wilder RN)2050 (Given - Provider: Migue Johnson RN) 0908 (Given - Provider: Maureen Wilder RN)1451 (Given - Provider: Maureen Wilder RN)2112 (Given - Provider: Migue Johnson RN) 0918 (Given - Provider: Elizabeth Magana RN) 300 mg, Oral, 3 TIMES DAILY, First dose on Yadira 05/26/15 at 2200, Until Discontinued, Routine insulin aspart (NovoLOG) VIAL injection 1-4 Units (CAN CELED) 0738 (Given - Provider: Maureen Wilder RN - Comment: [id number] (Given - Provider: Maureen Wilder RN - Comment: BS-208)1707 (Given - Provider: Maureen Wilder RN - Comment: BS-223) 0746 (Given - Provider: Maureen Wilder RN - Comment: BS- 209)1138 (Given - Provider: Maureen Wilder, RN - Comment: BS-233)1653 (Given - Provider: Maureen Wilder RN - Comment: BS-190) 0732 (Given - Provider: Elizabeth Magana RN)1150 (Given - Provider: Elizabeth Magana RN) 1-4 Units, Subcutaneous, 3 TIMES DAILY B EFORE MEALS, First dose on Yadira 05/26/15 at [...] RN) 0910 (Given - Provider: Maureen Wilder, JOSEPH) 0918 (Gi aide - Provider: Elizabeth Magana, JOSEPH) 5 mg, Oral, DAILY, First dose on Sat at 0900, Until Discontinued, Routine metFORMIN (GLUCOPHAGE) tablet 1,000 mg (CANCELED) 0739 (Given - Provider: Maureen Wilder RN)1706 (Given - Provider: Maureen Wilder RN) 0746 (Given - Provider: Maureen Wilder, JOSEPH)1653 (Given - Provider: Maureen Wilder, RN) 0748 (Given - Provider: Elizabeth Magana, JOSEPH) 1,000 mg, Oral, 2 TIMES DAILY WITH MEALS , First dose on Sat05/27/15 at 0800, Until Discontinued, Routine meTOPROLOL succinate (TOPROL-XL) XL tablet 25 mg ([facility]) 0912 (Given - Provider: Maureen Wilder RN) 0909 (Given - Provider: Maureen Wilder RN) 0917 (Given - Provider: Elizabeth Magana, JOSEPH) 25 mg, Oral, DAILY, First dose [...] RN) 40 mEq, Oral, ONCE, 1 dose, 05/27/15 at 0830, Routine potassium chloride (KAYCIEL) 20 mEq/15 mL oral solution 40 mEq ( COMPLETED) 0919 (Given - Provider: Elizabeth Magana RN) 40 mEq, Oral, ONCE, 1 dose, Sat05/29/15 at 0800, Routine sertraline (ZOLOFT) tablet 50 mg (CANCELED) 09 (Give n - Provider: Maureen Wilder RN) 09 (Given - Provider: Maureen Wilder RN) 0917 (Gi aide - Provider: Elizabeth Magana RN) 50 mg, Oral, DAILY, First dose on Fri at 0900, Until Discontinued, Routine simvastatin (ZOCOR) tablet 20 mg (CANCELED) 2049 (Give n - Provider: Migue Johnson RN) 2111 (Given - Provider: Migue Johnson RN) 20 mg, Oral, NIGHTLY, First dose on Yadira 05/26/15 at 2100, Until Discontinued, Routine warfarin (COUMADIN) tablet 5 mg (COMPLETED) 1847 (Give n - Provider: Maureen Wilder RN) 5 mg, Oral, ONCE, 1 dose, 05/27/15 at 1900, Routine warfarin (COUMADIN) tablet 5 mg (COMPLETED) 1653 (Given - Provider: Maureen Wilder RN) 5 mg, Oral, ONCE, 1 dose, 05/28/15 [...] Johnson RN)1237 (Rate/Dose Change - Provider: Maureen Wilder RN) 0553 (New Bag - Provider: Migue Richardson V, JOSEPH)0920 (Stopped - Provider: Elizabeth Magana RN) 500-7,000 Units/hr (10-140 mL/hr), Intra venous, at 10-140 mL/hr, CONTINUOUS, Starting Sat05/27/15 at 0930, Until 05/29/15 at 0726, Patient [...] INUOUS, Starting Yadira 05/26/15 at 1515, Until Sat05/27/15 at 0914, Recovery (Recovery-Hospital Unit) PRN Medication Order 05/27/2015 05/28/2015 05/29/2015 acetaminophen (TYLENOL) tablet 325 mg (CANCELED) 0327 (Given - Provider: Migue Johnson RN)1218 (Given - Provider: Maureen Wilder RN)1706 (Given - Provider: Maureen Wilder, JOSEPH)2049 (Given - Provider: Migue Johnson RN) 0117 (Given - Provider: Migue Johnson RN)0557 (Given - Provider: Migue Johnson RN)1218 (Given - Provider: Maureen Wilder RN)1956 (Given - Provider: Migue Johnson RN) 0748 (Given - Provider: Elizabeth Magana, RN) 325 mg, Oral, EVERY 4 HOURS [...] Wilder RN)1706 (Given - Provider: Maureen Wilder RN)2049 (Given - Provider: Migue Johnson RN) 0117 (Given - Provider: Migue Johnson RN)1218 (Given - Provider: Maureen Wilder RN)2112 (Given - Provider: Migue Johnson RN) 0748 (Given - Provider: Elizabeth Magana, RN) 5 mg, Oral, EVERY 4 HOURS PRN, Starting 05/27/15 at 0344, Until 05/29/15 at 1551, Pain, Routine documented in this encounter Care Teams Legal Operations Manager Relationship Specialty Start Date End Date Gordy Moon MD PCP - General Family Medicine 05/19/[address] [place] [address] documented as of this encounter
--- OUTSIDE RECORDS SUMMARY | 2022-01-25 01:00 | XMS_ITS | Encounter Summary ---
:1950 Author Organization [place] [address] Care Team Providers Name Role Phone Gordy Moon MD Primary Care Provider [phone] Reason for Referral Diagnostic Test (Routine) - Closed Specialty Diagnoses / Procedures Referred By Contact Refer red To Contact Radiology Diagnoses PAD (peripheral artery disease) Occlusion of graft of lower extremity, initial encounter Hope Virk APRN philippe Interventionl Rad Procedures VS Angiogram/intervention (vascular) [facility] [place] [address] [place] [address] Referral ID Status Reason Start Date Expiration Date Visits V isits Requested Authorized [id number] Closed Specialty 05/24/2015 05/23/2016 1 1 Service Requested Reason for Visit Diagnostic Test (Routine) - Closed Specialty Diagnoses / Procedures Referred By Contact Refer red To Contact Radiology Diagnoses PAD (peripheral artery disease) Occlusion of graft of lower extremity, initial encounter Hope Virk APRN [facility] Interventionl Rad Procedures VS Angiogram/intervention (vascular) [facility] [place] [address] [place] [address] Referral ID Status Reason Start Date Expiration Date Visits V isits Requested Authorized [id number] Closed Specialty 05/24/2015 05/23/2016 1 1 Service Requested Encounter Details Date Type Department Care Team Description 05/24/2015 Hospital Encounter Radiology at [facility] Glen Doyle, PAD (peripheral artery disea se); [facility] Occlusion of graft of lower extremity, i nitial encounter Drive [place], [place] CENTER [id number] VASCULAR SURGERY [phone] [place] [id number] Social History Tobacco Use Types Packs/Day Years Used Date Never Smoker Smokeless Tobacco: Never Used Alcohol Use Standard Drinks/Week Comments No 0 (1 standard drink = 0.6 oz pure alcoho l) Sex Assigned at Date Recorded Not on file documented as of this encounter Last Filed Vital Signs Vital Sign Reading Time Taken Comments Blood Pressure 151/65 05/24/2015 3:00 PM EST Pulse 71 05/24/2015 3:00 PM EST Temperature 36.4 ??C (97.6 ??F) 05/24/2015 10:46 AM EST Respiratory Rate 14 05/24/2015 2:30 PM EST Oxygen Saturation 94% 05/24/2015 3:00 PM EST Inhaled Oxygen Concentration - - Weight - - Height - - Body Mass Index - - documented in this encounter Discharge Instructions Discharge InstructionsAlda Kaminski RN - 05/24/2015 12:16 PM EST [facility] Interventional Radiology Post Angiography Instructions Procedure: LLE Angiogram Puncture Site: Right groin Date: 05/24/2015 Physician: Anirudh Caal Perri 1. At home we advise you to rest quietly in bed or on the couch with your hip straight until the next morning. Until the next morning you may get up only to go to the bathroom. 2. Resume your previous diet. Drink 6-8 ounces of fluid per hour for the next 8 hours. Avoid alcoholic or caffeinated beverages for 24 hours. 3. Avoid strenuous activity for the next 48 hours, particularly in the next 24 hours. Stair climbingshould be kept to a minimum. Do not lift objects heavier than 10-15 pounds for the next 48 hours Avoid straining for bowel movements as you can pop open the clot that has formed on the artery. 4. If you develop bulging under the skin or bleeding at the puncture site, put direct pressure on the puncture site for 15 minutes and call your doctor. If the bleeding persists, reapply pressure, and go to your local Emergency Department. 5. If you notice a sudden change in the feeling (numbness, tingling and/or pain) of your leg on the side of the puncture call your doctor. 6. You may develop a bruise at the puncture site. This should go away within a week to 10 days. If abulge develops after the first three days, call your doctor or the Radiology/Vascular Department here. Report signs of infection (redness, swelling, discharge, soreness, or fever) to your doctor. 7. Leave the bandage on for 24-48 hours. You may shower the following day after the procedure. You should NOT swim or tub bathe for [address] for 24 hours after the procedure. Do not sign any important documents or smoke unattended for 24 hours. You may return to work with the above restrictions on . 9. If you have any questions or concerns, please call Interventional Radiology Department at until 6pm. After 6pm, or on weekends or hoildays, call and ask for the founder ceo & president suction drum drier operator. OR Vascular Department at until 4:45pm. After 4:45pm call and ask for the Vascular resident suction drum drier operator. 10. If you are a diabetic and take Metformin or Janumet, Do not take it for 2 days after the procedure. XX You have received medication during your procedure to help lesson anxiety and keep you comfortable and which affects judgement and reaction time. We recommend that you do not drive, operate equipment, sign any important documents, or smoke unattended for 24 hours following your procedure. Because of the sedation please be careful on stairs, as you may be unsteady on your feet. You may resume your regular diet as tolerated. IV site -- slight redness, or tenderness is normal, you can use a warm compress. If tenderness and redness increases or foul drainage occurs, please contact your M. D. 07/20/11 documented in this encounter Medications at Time of Discharge Medication Sig Dispensed Refills Start Date End Date sertraline (ZOLOFT) 50 mg Take 75 mg by mouth 0 Tablet daily. Takes with 25mg aspirin 81 mg Tablet, Take 1 tablet by 30 tablet 3 03/16/20 15 Delayed Release (E.C.) mouth daily. acetaminophen (TYLENOL) Take 325 mg by 0 325 mg Tablet mouth every 4 hours as needed for Pain. HYDROcodone-acetaminophen Take 1 tablet by 30 tablet 0 05/0805/29/2015 (NORCO) 5-325 mg Tablet mouth every 6 hours as needed for Pain (1-2 tabs every 6-8 hours as needed for pain). meTOPROLOL succinate Take 1 tablet by 30 tablet 12 5 04/18/2016 (TOPROL-XL) 25 mg Tablet mouth daily. Sustained Release 24 hrIndications: ASCVD (arteriosclerotic cardiovascular disease) warfarin (COUMADIN) 3 mg Take 1 tablet by 30 tablet 11 03/2406/01/2015 Tablet mouth daily. warfarin (COUMADIN) 1 mg Take 1 tablet by 15 tablet 11 03/2406/01/2015 Tablet mouth as needed (as needed for coumadin dose adjustments). multivitamin (THERAGRAN) Take 1 tablet by 0 05/07/2017 Tablet mouth daily. metFORMIN (GLUCOPHAGE) 500 Take 1,000 mg by 0 08/03/2015 mg Tablet mouth 2 times daily (with meals). Takes 2 bid simvastatin (ZOCOR) 20 mg Take 20 mg by mouth 0 06/12/2016 Tablet nightly. lisinopril Take 5 mg by mouth 0 2015 (PRINIVIL;ZESTRIL) 5 mg daily. Tablet documented as of this encounter Progress Notes Nicolas Garcia RN - 05/25/2015 9:25 AM EST Interventional and Vascular Radiology Post-Procedure Call Name: Chan Perry Age: 64 y.o. Sex; Female Date of : 1950 (home) No relevant phone numbers on file. PCP GORDY MOON MD [phone] Date/Time of call: May 25, 2015/9:25 AM Procedure: angiogram Procedural Provider: Dr Caal, Dr Allen, Dr Hernández Contact with patient or if not, with whom? pt Message left on answering machine? (yes/no) Provider notified via phone or email if unable to contact pt: (yes/no) Are you having pain related to your procedure now? none Are you having any swelling or bleeding from the site? none Are there any improvement in your symptoms? Are you having any other problems related to your procedure? no Comments: Did you understand the discharge instructions given and do you have any questions? Comments: instructions were clear Do you have any comments about your Nurse or Provider or the care you received? Care was excellent Nurse Comments: Kristin Spears RN - 05/24/2015 2:31 PM EST Patient discharge instructions and medications reviewed with patient, significant other and sister,questions answered, all verbalized understanding. Samira Min RN - 05/24/2015 9:38 AM EST 0920 To procedure room 1 via stretcher. Onto table supine. All monitors, O2, safety strap in place. Med's per protocol. Angio only post procedure: Time sheath removed: 1017 Side: Right groin Closure device used: none, manual hold Hematoma present? no Site release time: 1037 Anticipated up time: 1437 Samira Min RN - 05/19/2015 3:01 PM EST ANGIO NURSING DATABASE Name: CHAN PERRY Date of : 1950 AGE 64 y.o. Address: [address] [place] [id number] (home) Mobile: No relevant phone numbers on file. Referring Provider: Hope Virk REASON FOR VISIT: LLE AGRAM: 64 yo female s/p : Left SFA-peroneal bypass with left GSV and left lateral fibulectomy. C/o new left foot pain at rest and eschar non healing left mid calf incision. SOSA's L SOSA 0.12 aphasic. TBI 0.0 Graft Occluded. Visit reviewed with Dr Doyle. Schedule L LE angio05/24/15. Last dose Coumadin 05/21/15.Cr today 0.58 UE vein mapping to be done prior to angio 05/24/15. No Known Allergies Pertinent PMH: Patient Active Problem List Diagnosis Code ??? Claudication I73.9 ??? Non-healing ulcer of foot L97.509 ??? DMII (diabetes mellitus, type 2) E11.9 ??? Hypercholesterolemia E78.0 ??? Hypertension I10 ??? PAD (peripheral artery disease) I73.9 ??? HLD (hyperlipidemia) E78.5 Pertinent PSH: Past Surgical History Procedure Laterality Date ??? Skin graft Left left 2nd metacarpal ??? Pro vein bypass graft, fem-tibial Left 03/18/2015 @BYPASS GRAFT, FEM.-ANT. TIB, POST. TIB, PERONEAL, DP W\ VEIN CONDUIT ([place] [address]) performed by Glen Doyle MD at [facility] MAIN OR Date/Procedure Med's given/comments 03/16/15 BLE agram - diagnostic only Versed 2mg IV, Fentanyl 100mcg IV 05/24/15 LLE agram-diagnostic only Ancef 2 grams IV, Midazolam 3 mg IV, Fentanyl 150 mcg IV Laboratory Results: Lab Results Component Value Date INR 2.1* 03/24/2015 Lab Results Component Value Date CREATININE 0.58* 05/19/2015 Lab Results Component Value Date K 3.1* 03/24/2015 Lab Results Component Value Date PLATELET 208 03/24/2015 Medications: Prior to Admission medications Medication Sig Start Date End Date Taking? Authorizing Provider sertraline (ZOLOFT) 50 mg Tablet Take 50 mg by mouth daily. PROVIDER, HISTORICAL HYDROcodone-acetaminophen (NORCO) 5-325 mg Tablet Take 1 tablet by mouth every 6 hours as needed forPain (1-2 tabs every 6-8 hours as needed for pain). 05/19/15 Hope Virk APRN meTOPROLOL succinate (TOPROL-XL) 25 mg Tablet Sustained Release 24 hr Take 1 tablet by mouth daily. 04/15/15 Michael Luong PA oxyCODONE (ROXICODONE) 5 mg Tablet Take 1 tablet by mouth every 6 hours as needed for Pain (as needed for leg pain). 04/06/15 05/19/15 Hope Virk APRN warfarin (COUMADIN) 3 mg Tablet Take 1 tablet by mouth daily. 03/24/15 Nicolas Cowan MD warfarin (COUMADIN) 1 mg Tablet Take 1 tablet by mouth as needed (as needed for coumadin dose adjustments). 03/24/15 Nicolas Cowan MD multivitamin (THERAGRAN) Tablet Take 1 tablet by mouth daily. PROVIDER, HISTORICAL aspirin 81 mg Tablet, Delayed Release (E.C.) Take 1 tablet by mouth daily. 03/16/15 Siva Whitaker MD metFORMIN (GLUCOPHAGE) 500 mg Tablet Take 1,000 mg by mouth 2 times daily (with meals). Takes 2 bid PROVIDER, HISTORICAL simvastatin (ZOCOR) 20 mg Tablet Take 20 mg by mouth nightly. PROVIDER, HISTORICAL lisinopril (PRINIVIL;ZESTRIL) 5 mg Tablet Take 5 mg by mouth daily. PROVIDER, HISTORICAL acetaminophen (TYLENOL) 325 mg Tablet Take 325 mg by mouth every 4 hours as needed for Pain. PROVIDER, HISTORICAL ++++ FOR OUTPATIENTS: I have informed this patient that they require a medical driver to be present at checkin and remain in the building to drive them home after this procedure. In the absence of a medical driver, IR will not be able to perform this procedure and will need to reschedule. Pt verbalized understandingof these instructions during the pre-procedure education via phone. (initials) documented in this encounter H&P Notes Elicia Hernández MD - 05/24/2015 7:41 AM EST Vascular Surgery Pre-IR H&P HPI: Ms. Perry is a 64 /o F with HTN HL DMII PAD sp left SFA to distal peroneal bypass on 03/18/15 for CLI(rest pain, non healing ulcer between D4/D5). Her toe ulcer has healed since the bypass however for the past one month she has suffered with stiff/cold right toes with left foot pain at rest. This is the same type of rest pain that prompted the bypass. She was seen in clinic on 05/19/15 at which time duplex illustrated no flow through the graft consistent with an occluded graft. The pt presents todayfor diagnostic angiogram of the left lower extremity and possible revascularization. She denies any chest pain or shortness of breath at baseline. Maintained on ASA/statin/coumadin. Last took coumadin on 05/21. INR today 1.5. Had infected incision line post-op; somewhat healed but with2 cm eschar at incision mid calf. Past Medical History Diagnosis Date ??? HTN (hypertension) ??? DM (diabetes mellitus) metformin ??? Hypercholesterolemia ??? PVD (peripheral vascular disease) ??? HLD (hyperlipidemia) 03/24/2015 Past Surgical History Procedure Laterality Date ??? Skin graft Left left 2nd metacarpal ??? Pro vein bypass graft, fem-tibial Left 03/18/2015 @BYPASS GRAFT, FEM.-ANT. TIB, POST. TIB, PERONEAL, DP W\ VEIN CONDUIT ([place] [address]) performed by Glen Doyle MD at [facility] MAIN OR Family History Problem Relation Age of Onset ??? Type 2 Diabetes Sister ??? Type 2 Diabetes Mother ??? Type 2 Diabetes Father ??? Coronary Artery Disease Father ??? Coronary Artery Disease Mother History Social History ??? Marital Status: Spouse Name: N/A Number of Children: N/A ??? 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 Smoking status: Never Smoker ??? Smokeless tobacco: Never Used ??? Alcohol Use: No ??? Drug Use: No Comment: marijuana (smoked for 8 years. quit 2004) ??? Sexual Activity: Not on file Other Topics Concern ??? Not on file Social History Narrative Lives with significant other Ranch style home Medications: Current Outpatient Prescriptions Medication Sig Dispense Refill ??? sertraline (ZOLOFT) 50 mg Tablet Take 50 mg by mouth daily. ??? HYDROcodone-acetaminophen (NORCO) 5-325 mg Tablet Take 1 tablet by mouth every 6 hours as neededfor Pain (1-2 tabs every 6-8 hours as needed for pain). 30 tablet 0 ??? meTOPROLOL succinate (TOPROL-XL) 25 mg Tablet Sustained Release 24 hr Take 1 tablet by mouth daily. 30 tablet 12 ??? warfarin (COUMADIN) 3 mg Tablet Take 1 tablet by mouth daily. 30 tablet 11 ??? warfarin (COUMADIN) 1 mg Tablet Take 1 tablet by mouth as needed (as needed for coumadin dose adjustments). 15 tablet 11 ??? multivitamin (THERAGRAN) Tablet Take 1 tablet [...] every 4 hours as needed for Pain. No current facility-administered medications for this encounter. Facility-Administered Medications Ordered in Other Encounters Medication Dose Route Frequency Provider Last Rate Last Dose ??? midazolam (PF) (VERSED) 1 mg/mL multi-dose injection PRN Dontrell Romero MD 2 mg at 03/18/15 1318 Allergies: Review of patient's allergies indicates no known allergies. Physical Exam: Gen: NAD, alert and oriented x3 Cardiac: Regular, no murmurs rubs or gallops Lungs: Clear bilaterally Abd: Soft, NT ND Ext: 2/2 right femoral pulse. 2/2 left femoral pulse. DP and PT signals on right; no signals on left. Sensation and motor function intact. LLE: staple line healed above knee; below knee there is an area with erythema, 2cm eschar, no drainage; per pt improved from a few weeks ago; small ulcer left lateral calf Lab Results Component Value Date CREATININE 0.58* 05/19/2015 Imaging: ABIs Right Pressure (mm Hg) SOSA Waveform TBI [...] Doppler signal. Significant deterioration from previous exam. Date RIGHT DP RIGHT PT RT GR TOE LEFT DP LEFT PT LT GR TOE 0.49 0.52 0.25 0.32 0.24 0.12 ---- ---- ---- 1.09(+.77) 1.01(+.77) 0.34(+.22) 0.42 0.57 0.26 0.95(-.14) 0.77(-.24) 0.43(+.09) Current 0.53(+.11) 0.55(-.02) 0.26( .00) ---- 0.12(-.65) 0.00(-.43) Graft Duplex Left PSV (cm/s) EDV Location Inflow Artery 120 15 Common Femoral Artery, Left Inflow Anastomosis 0 0 Common Femoral Artery, Left Proximal Graft 0 0 Outflow Anastomosis Left Peroneal Outflow Artery (Graft) Left Peroneal Interpretation: The LEFT fem-peroneal bypass graft is occluded. This is a new finding. Assessment and Plan Ms. Perry is a delightful 64 year old female w PMH significant for HTN HL DHII PAD sp L SFA to distal peroneal bypass on 03/18/15 that has now occluded. She presents with right lower extremity rest pain. On PE femoral pulses are palpable bilaterally. She has monophasic pedal signals on the right and nosignals on the left. Her incision line is not completely healed with an area of 2 cm tissue separation at the left calf; in addition there is a small ulcer at the lateral/posterior L calf. ABIs are 0.12 DP and 0 PT on the left. Graft duplex shows the graft is occluded. Plan for LLE diagnostic angiogram via R percutaneous FRAME EXPANDER access and intervention as warranted (angioplasty of occluded graft if possible). Likely diagnostic for target identification in planning for redo bypass. Arm vein mapping following procedure. Risks and benefits have been explained. Risks include bleeding, infection, hematoma, nerve/blood vessel injury, renal injury and need for further intervention. Ms. Perry understands and wishes to proceed. ASA: 3 Mal: 1 Creatinine: 0.58 Elicia Hernández MD/TIMOTHY, Pager [phone] Section of Vascular Surgery, PGY-2 documented in this encounter Procedure Notes Elicia Hernández MD - 05/24/2015 10:26 AM ESTProcedure(s): ANGIOGRAPHY, EXTREMITY, UNILATERAL, S & I Pre-Procedure Diagnose(s): Critical lower limb ischemia; Peripheral arterial disease Post-Procedure Diagnose(s): Critical lower limb ischemia; Peripheral arterial disease Vascular Surgery Angio Procedure Note: Pre-Operative Diagnosis: Left critical limb ischemia, peripheral arterial disease Post-Operative Diagnosis: same Procedure: 1. Right femoral arterial access 2. Second order selective catheterization of left common femoral artery 3. Left lower extremity angiogram 4. Manual pressure Surgeons: Afua/Betty/Alejandro Dye: Visipaque - 25 ml FT: 4.1 minutes Antibiotics: 2g ancef Heparin: none Protamine: none Sedation: Versed- 1 mg, Fentanyl- 100 mcg Indications: Ms. Perry is a delightful 64 year old female w PMH significant for HTN HL DHII PAD sp L SFA to distal peroneal bypass on 03/18/15 that has now occluded. She presents with right lower extremity rest pain. On PE femoral pulses are palpable bilaterally. She has monophasic pedal signals on the right and nosignals on the left. Her incision line is not completely healed with an area of 2 cm tissue separation at the left calf; in addition there is a small ulcer at the lateral/posterior L calf. ABIs are 0.12 DP and 0 PT on the left. Graft duplex shows the graft is occluded. Plan for LLE diagnostic angiogram via R percutaneous FRAME EXPANDER access and intervention as warranted (angioplasty of occluded graft if possible). Likely diagnostic for target identification in planning for redo bypass. Arm vein mapping following procedure. Risks and benefits have been explained. Risks include bleeding, infection, hematoma, nerve/blood vessel injury, renal injury and need for further intervention. Ms. Perry understands and wishes to proceed. Findings: - Dr. Caal was present for the entirety of this procedure. - Sheath access in right groin - Left lower extremity angiogram: Widely patent left FRAME EXPANDER. Profunda femoris is patent. The SFA occludes shortly after its origin. There is a 15 cm SFA. The popliteal reconstitutes via collaterals above the knee. The popliteal artery occludes approx 4 cm below the knee. There are a multitude of collateral vessels. The AT is occluded. The PT is occluded for a majority of its course but reconstitutes just below the ankle. The peroneal is initially patent for a few centimeters before occluding; it reconstitutes for about 3cm mid calf, but occludes again and is not patent to the foot. The SFA to peronealbypass is occluded at its origin and throughout its course. - Closure device: None, manual pressure x 20 minutes Technical Procedure: The patient was correctly identified in the pre-procedure holding area. After a discussion of the risks and benefits, operative consent was obtained. The patient was brought to the angio suite and placed supine upon the angio table. The patient was prepped and draped in the usual sterile fashion. A time-out was performed by the attending surgeon. Retrograde percutaneous access was obtained in the right common femoral artery via micropuncture technique under flouroscopic guidance after infiltration with local anesthetic. This was then up-sized to a 10 cm 5F sheath over a J-wire. The wire was advanced into the infra-renal aorta. A 5F omni-flush catheter was advanced into the infrarenal aorta over the wire.The wire and catheter were then used to selectively catheterize the left common iliac artery.The wire and catheter were advanced down to the common femoral artery. The left lower extremity was then imaged in bolus-josé antonio fashion. Findings are as described above. The catheter was then removed over the wire and the wire was removed. The sheath was removed and manual pressure was held over the puncture site for 20 minutes. Hemostasis was satisfactory. The puncture site was dressed with a dry gauze and tegaderm. Dr. Caal the attending surgeon was scrubbed and present for the entire procedure. Due to the painful nature of the procedure, split doses of fentanyl and Versed were administered by the IR nurseduring continuous monitoring of pulse, blood pressure and oxygen saturation. Plan: Ms. Perry has a TASC D SFA occlusion with significant plaque burden extending into the popliteal artery. Her SFA to peroneal bypass is occluded. The peroneal occludes in the proximal calf. The PT is occluded but recannalizes via collaterals below the ankle. The pt may be a candidate for a jump graft to the distal PT artery. She has adequate cephalic vein on the right arm for bypass conduit. TcPO2 is 3 at the forefoot and [address] Doyle will call the pt tomorrow to discuss treatment options. - arm vein shows adequate cephalic vein on the right for bypass conduit -TcPO2 3 at forefoot and 33 below the knee -stop coumadin (had been taking for graft patency) -cont ASA/statin - Dr. Doyle to call patient tomorrow to discuss treatment options (redo bypass vs jump graft vs above knee amputation) This plan was discussed with Dr. Caal and communicated to the patient Elicia Hernández MD/TIMOTHY, Pager [phone] Section of Vascular Surgery, PGY-2 Associated attestation - Elicia Caal MD - 05/30/2015 7:21 AM EST I was present and scrubbed for the entire procedure. documented in this encounter Plan of Treatment Not on filedocumented as of this encounter Procedures Procedure Name Priority Date/Time Associated Comments Diagnosis TCPO2 Routine 05/24/2015 11:39 Results for this AM EST procedure are i n the results section. EKG 12-LEAD STAT 05/24/2015 10:57 PAD (peripheral Results for this AM EST artery disease) procedure ar e in the results section. VS ARTERIOGRAM LOWER Routine 05/24/2015 10:44 PAD (peripheral Results for this EXTREMITY VASCULAR AM EST artery diseas e) procedure are in SURGERY Occlusion of graft the resul ts of lower extremity, section. initial encounter POCT GLUCOSE Routine 05/24/2015 9:15 AM Results f or this EST procedure are i n the results section. documented in this encounter Results TcPO2 (05/24/2015 11:39 AM EST) Component Value Ref Test Analysis Performed At [facility] Range Method Time Signature VB Text Department: Vascular Surgery Lab VASCUBASE Report Patient: [id number] (CHAN PERRY) CPT: 63923-99 ICD10: T82.868 Referring Physician: GLEN DOYLE ?? Indications: occluded LLE by pass (SFA to peroneal) with rest pain; ? ability to heal redo bypass vs amputation? ICD10 Diagnosis Code: T82.868; R23.8 Findings: Left ?Transcutaneous Oxygen Saturation (m mHg) ?? Rt Chest ? 67 ?? 10 cm Above Knee ? 31 ?? 15 cm Below Knee ? 33 ?? [employer] ?3 ?? Interpretation: Published reports suggest a TCPO2 of 30 mmHg or greater predictive of adequate tissue oxygenation to promote healing of skin ulcers and amputation sites. The true sensitivity and specifi city of this test, however, is not well established. Comparison: ??No previous study in our vascular lab da tabase for comparison. Electronically Signed by: NATANAEL NUÑEZ on 2015-05-26 08:43: 03 PM VB Text End of Report VASCUBASE Report Specimen (Source) Anatomical Collection Method Collection Time Re ceived Time Location / / Volume Laterality 05/24/2015 11:39 AM EST Glen Doyle MD VASCULAR ORDERABLES Performing Organization Address City/State/ZIP Code Phon e Number VASCUBASE EKG 12 Lead (05/24/2015 10:57 AM EST) Component Value Ref Range Test Analysis Performed Pathologis t Method Time At Signature Ventricular rate 64 BPM MUSE SYSTEM Atrial Rate 64 BPM MUSE SYSTEM P-R Interval 142 ms MUSE SYSTEM QRS Duration 86 ms MUSE SYSTEM Q-T Interval 426 ms MUSE SYSTEM QTC Calculated 439 ms MUSE SYSTEM (Bezet) Calculated P [place] 70 degrees MUSE SYSTEM Calculated R [place] 42 degrees MUSE SYSTEM Calculated T [place] 100 degrees MUSE SYSTEM INTERPRETATION Sinus rhythm with frequent P remature ventricular complexes in a pattern of bigeminy MUSE SYSTEM ST & T wave abnormality, consider inferolateral ischemia Abnormal ECG When compared with ECG of 21-MAR-2015 09:16, Premature ventricular complexes are now Present Minimal criteria for Inferior infarct are no longer Present Inverted T waves have replaced nonspecif ic T wave abnormality in Lateral leads Confirmed by MD Jose, Romain ([id number]) on 05/24/2015 2:28:5 8 PM Specimen Anatomical Collection Method Collection Time Receive d Time (Source) Location / / Volume Laterality 05/24/2015 10:57 05/24/2015 2:28 AM EST PM EST Glen Doyle MD ECG ORDERABLES Performing Organization Address City/[facility]/ZIP Code Phon e Number MUSE SYSTEM VS Angiogram/intervention (vascular) (05/24/2015 10:44 AM EST) [...] LL E diagnostic angiogram via R percutaneous FRAME EXPANDER access and intervention as warranted (angioplasty of [...] Left lower extremity angiogram: Widely patent left FRAME EXPANDER. Profunda femoris is patent. The SFA occludes [...] LL E diagnostic angiogram via R percutaneous FRAME EXPANDER access and intervention as warranted (angioplasty of [...] Left lower extremity angiogram: Widely patent left FRAME EXPANDER. Profunda femoris is patent. The SFA occludes [...] procedure. Glen Doyle MD IMG IR ORDERABLES POCT Glucose (05/24/2015 9:15 AM EST) athologist Signature POC Glucose 158 65 - 199 CERNER mg/dL [facility] Comment: Supplemental ranges: <140 mg/dL before meals <180 mg/dL all other times of the day Specimen Anatomical Collection Method Collection Time Receive d Time (Source) Location / / Volume Laterality Blood specimen 05/24/2015 9:15 AM 015 9:15 (specimen) EST AM EST Glen Doyle MD POINT OF CARE TEST ORDERABLE S Performing Organization Address City/State/ZIP Code [place] [address] CERNER MILLENNIUM (ABNORMAL) Prothrombin Time (05/24/2015 8:13 AM EST) athologist Signature PT 18.6 (H) 12.0 - 15.0 CERNER sec MILLENNIUM [...] Location / / Volume Laterality Blood specimen 05/24/2015 8:13 AM 015 8:20 (specimen) EST AM EST Resulting Agency Comment Spec In Lab Glen Doyle MD HEMATOLOGY ORDERABLES Performing Organization Address City/State/Z[place] [address] [facility] [address] [facility] (ABNORMAL) Creatinine (05/24/2015 8:13 AM EST) athologist Signature Creatinine 0.50 (L) 0.70 - CERNER 1.20 mg/dL MILLENNIUM Comment: Please note that the pediatric reference intervals supplied above were not validated at [facility]. Results from pediatri c patients should be interpreted in conjunction to the patient's age, height and muscle mass. Estimated GFR >60 >=60 CERNER MICHAELU M Comment: This estimated GFR (eGFR) value [...] the following links into your internet browser. [email or web address] [email or web address]/DHMCnkf Specimen Anatomical Collection Method Collection Time Receive d Time (Source) Location / / Volume Laterality Blood specimen 05/24/2015 8:13 AM 015 8:20 (specimen) EST AM EST Resulting Agency Comment Spec In Lab Glen Doyle MD CHEMISTRY ORDERABLES Performing Organization Address City/State/ZIP Code Phon e Number [place] [phone] [facility] [address] [facility] documented in this encounter Visit Diagnoses Diagnosis PAD (peripheral artery disease) Peripheral vascular disease, unspecified Occlusion of graft of lower extremity, i nitial encounter documented in this encounter Administered Medications Inactive Administered Medications - up to 3 most recent administrations Medication Order MAR Action Action Date Dose Rate Site ceFAZolin (ANCEF) 2g in Given 05/24/2015 9:38 AM EST 2 g 100 mL/hr dextrose 5% 50 mL 2 g, Intravenous, ONCE, 1 dose, On Sat05/24/15 at 0815, Administer over 30 Minutes, Angio/IR (Day of Procedure), Indication for (Active or Suspected): Prophylaxis fentaNYL 50mcg/mL injection Given 05/24/2015 9:59 AM EST 50 mcg 25-50 mcg, Intravenous, EVERY 5 MIN PRN, Starting on Sat05/24/15 at 0755, Until Sat05/24/15 at 1018, Pain, Angio/IR (Day of Procedure), Routine Given 05/24/2015 9:50 AM EST 50 mcg Given 05/24/2015 9:44 AM EST 25 mcg iodixanol (VISIPAQUE) 320 mg iodine/mL Given 05/24/2015 10:24 AM EST 25 mLs injection 50 mL 50 mL, Intra-arterial, ONCE PRN, 1 dose, Starting on Sat05/24/15 at 1024, Until Sat05/24/15 at 1024, Per Protocol, Routine midazolam (PF) (VERSED) 1 mg/mL injection 0.5-1 Given 05/24/2015 9:59 AM EST 1 mg mg 0.5-1 mg, Intravenous, EVERY 5 MIN PRN, Starting on Sat05/24/15 at 0755, Until Sat05/24/15 at 1018, Sleep, Angio/IR (Day of Procedure), Routine Given 05/24/2015 9:50 AM EST 1 mg Given 05/24/2015 9:44 AM EST 0.5 mg documented in this encounter Care Teams Parking Supervisor Relationship Specialty Start Date End Date Gordy Moon MD PCP - General Family Medicine 05/19/[address] [place] [address] documented as of this encounter
--- OUTSIDE RECORDS SUMMARY | 2022-01-25 01:00 | XMS_ITS | Encounter Summary ---
:1950 Author Organization [facility] [place] [address] Care Team Providers Name Role Phone Gordy Gregg MD Primary Care Provider [phone] Encounter Details Date Type Department Care Team Description 05/19/2015 Hospital Encounter Vascular Lab at [facility] (peripheral [facility], [place] artery diseas e) [place] [id number] Social History Tobacco Use Types Packs/Day Years [...] Date/Time Associated Comments Diagnosis UNILATERAL BYPASS Routine 05/19/2015 10:34 AM PAD (peripheral Results for this GRAFT ASSESS EST artery disease) procedure ar e in the results section. SOSA, LEGS, MULTIPLE Routine 05/19/2015 10:34 AM PAD (periphera l Results for this LEVELS EST artery disease) procedure ar e in the results section. documented in this encounter Results Unilat Bypass Graft Assess (05/19/2015 10:34 AM EST) Component Value Ref Test Analysis Performed At [facility] Range Method Time Signature VB Text Department: Vascular Surgery Lab VASCUBASE Report Patient: [id number] (CARRIE PERRY) CPT: 97940 ICD10: I73.9 Referring Physician: GLEN DOYLE ?? Indications: ??S/P L fem-peroneal bypass graft ICD10 Diagnosis Code: I73.9 Findings: Left ?PSV (cm/s) ??EDV ??Location ? Inflow Artery ?120 ?? 15 ??Common Femoral Artery, Left ?? Inflow Anastomosis ? 0 ?0 ??Common Femoral Artery, Left ?? Proximal Graft ? 0 ?0 ? Outflow Anastomosis ?Left Peroneal ? Outflow Artery (Graft) ? Left Peroneal ? Interpretation: The LEFT fem-peroneal bypass gra ft is occluded. This is a new finding. Comment: Patient is seeing Hope Virk APRN [facility] following this exam regarding her PAD and bypass graft. Electronically Signed by: MARCIA WAGGONER on 2015-05-19 11:35:1 7 AM VB Text End of Report VASCUBASE Report Specimen (Source) Anatomical Collection Method Collection Time Re ceived Time Location / / Volume Laterality 05/19/2015 10:34 AM EST Glen Doyle MD VASCULAR ORDERABLES Performing Organization Address City/State/ZIP Code Phon e Number VASCUBASE SOSA, legs, multiple levels (05/19/2015 10:34 AM EST) Component Value Ref Test Analysis Performed At [facility] Range Method Time Signature VB Text Department: Vascular Surgery Lab VASCUBASE Report Patient: [id number] (CARRIE PERRY) CPT: 61106 ICD10: I73.9 Referring Physician: GLEN DOYLE ?? Indications: ??S/P L fem-peroneal bypass graft Diabetes mellitus: ?? Yes ICD10 Diagnosis Code: I73.9 Definitions: SOSA = Ankle / Brachial Systolic Pressure Index, TBI = Toe / Brachial Systolic Pressure Index. All systolic pressures in this study are derived based on Doppler assessment of blood flow. Findings: Right ?Pressure (mm Hg) ?? SOSA ??Waveform ? TBI ?? Brachial Artery ?191 ? Dorsalis Pedis (Ankle) Arter y ?102 ? 0.53 ??Monophasic ? Posterior Tibial (Ankle) Art gregory ??106 ? 0.55 ??Monophasic ? Great Toe ?49 ?0.26 ?? Left ? Pressure (mm Hg) ?? SOSA ??Waveform ?? TBI ?? Brachial Artery ?188 ? Dorsalis Pedis (Ankle) Arter y ?Absent ? Posterior Tibial (Ankle) Art gregory ??22 ?0.12 ??Aphasic ? Great Toe ?0 ? 0.00 ?? Interpretation: RIGHT: Moderate (borderline moderately severe) lower extremi ty arterial occlusive disease to the lev el of the distal calf with moderately severe disease at the toe level. No significant change from previous exam. LEFT: Severe lower extremity arterial occlusive disease. Unable to insonate a DPA Doppler signal. Significant deterioration from previous exam. Previous ABIs with change from previous value: Date ?RIGHT DP ?? RIGHT PT ?? RT GR TOE ??LEFT DP ?LEFT PT ?LT GR TOE ??0.49 ? 0 .52 ? 0.25 ? 0.32 ? 0.24 ? 0.12 ??---- ? - --- ? ---- ? 1.09(+.77) 1.01(+.77) 0.34(+.22) ??0.42 ? 0 .57 ? 0.26 ? 0.95(-.14) 0.77(-.24) 0.43(+.09) Current ? 0.53(+.11) 0.5 5(-.02) 0.26( .00) ---- ? 0.12(-.65) 0.00(-.43) Electronically Signed by: MARCIA WAGGONER on 2015-05-19 11:35:1 7 AM VB Text End of Report VASCUBASE Report Specimen (Source) Anatomical Collection Method Collection Time Re ceived Time Location / / Volume Laterality 05/19/2015 10:34 AM EST Glen Doyle MD VASCULAR ORDERABLES Performing Organization Address City/State/ZIP Code Phon e Number VASCUBASE documented in this encounter Visit Diagnoses Diagnosis PAD (peripheral artery disease) Peripheral vascular disease, unspecified documented in this encounter Care Teams Labor Delivery Specialist Relationship Specialty Start Date End Date Gordy Gregg MD PCP - General Family Medicine 05/19/[address] [place] [address] documented as of this encounter
--- OUTSIDE RECORDS SUMMARY | 2022-01-25 01:00 | XMS_ITS | Encounter Summary ---
:1950 Author Organization [facility] [address] Care Team Providers Name Role Phone Shirley Cardenas APRN Primary Care Provider Reason for Visit Reason Comments Wound Check Encounter Details Date Type Department Care Team Description 04/15/2015 Office Visit Vascular Surgery at Mariano Doyle MD PAD (peripheral artery [facility] disease) [facility] Andres VASCULAR SURGERY [place] [phone] Social History Tobacco Use Types Packs/Day Years Used Date Never Smoker Smokeless Tobacco: Never Used Alcohol Use Standard Drinks/Week Comments No 0 (1 standard drink = 0.6 oz pure alcoho l) Sex Assigned at Date Recorded Not on file documented as of this encounter Last Filed Vital Signs Vital Sign Reading Time Taken Comments Blood Pressure 137/89 04/15/2015 2:26 PM EDT Pulse 79 04/15/2015 2:26 PM EDT Temperature - - Respiratory Rate 20 04/15/2015 2:26 PM EDT Oxygen Saturation - - Inhaled Oxygen Concentration - - Weight 52.6 kg (116 lb) 04/15/2015 2:26 PM EDT Height 152.4 cm (5') 04/15/2015 2:26 PM EDT Body Mass Index 22.65 04/15/2015 2:26 PM EDT documented in this encounter Progress Notes Mariano Doyle MD - 04/15/2015 3:16 PM EDT Interval history: Returns in followup after left SFA to distal peroneal bypass. Reports continued toe numbness and leg swelling Prior Vascular History: 03/18/15: Left SFA-peroneal bypass with left GSV and left lateral fibulectomy Patient Active Problem List Diagnosis Code ??? Claudication I73.9 ??? Non-healing ulcer of foot L97.509 ??? DMII (diabetes mellitus, type 2) E11.9 ??? Hypercholesterolemia E78.0 ??? Hypertension I10 ??? PAD (peripheral artery disease) I73.9 ??? HLD (hyperlipidemia) E78.5 Pex: NAD Wounds healing : Studies: Findings: Right Pressure (mm Hg) SOSA Waveform TBI Brachial Artery 168 Dorsalis Pedis (Ankle) Artery 71 0.42 Monophasic Posterior Tibial (Ankle) Artery 96 0.57 Monophasic Great Toe 43 0.26 Left Pressure (mm Hg) SOSA Waveform TBI Brachial Artery 161 Dorsalis Pedis (Ankle) Artery 160 0.95 Biphasic Posterior Tibial (Ankle) Artery 129 0.77 Monophasic Great Toe 72 0.43 Interpretation: RIGHT: Moderate to moderately severe lower extremity arterial occlusive disease. No significant change compared to previous exam. LEFT: Mild lower extremity arterial occlusive disease. Significant deterioration in SOSA compared to previous exam but the toe index improved by .09 Findings: Left PSV (cm/s) EDV Location Inflow Artery 152 14 Left Distal Common Femoral Artery Inflow Anastomosis 68 10 Common Femoral Artery, Left Proximal Graft 75 10 Mid Thigh (Graft) 75 10 Near Knee (Graft) 60 11 High Calf (Graft) 71 13 Distal Graft 100 22 Outflow Anastomosis 114 20 Left Peroneal Outflow Artery (Graft) 427 73 Peroneal Artery, Mid Left Interpretation: Left- Patent bypass graft with no evidence of stenosis. There is a significant stenosis in the peroneal outflow just beyond the distal anastomosis > 50% (3.6 x step up) Assessment / Plan: Overall doing well. Patent bypass, foot well vascularized. Wounds healing, masha removed. Advised to wrap leg and elevate daily. Continue coumadin. May return to work in one week. Follow-up 5 months documented in this encounter Miscellaneous Notes Addendum Note - Amita Millan RN - 04/18/2015 10:25 AM EDT Addended by: AMITA MILLAN on: 04/18/2015 10:25 AM Modules accepted: Orders documented in this encounter Plan of Treatment Not on filedocumented as of this encounter Results Unilat Bypass Graft Assess (05/19/2015 10:34 AM EST) Component Value Ref Test Analysis Performed At [facility] Range Method Time Signature VB Text Department: Vascular Surgery Lab [facility] Report Patient: [id number] (CARRIE PERRY) CPT: 52465 ICD10: I73.9 Referring Physician: MARIANO DOYLE ?? Indications: ??S/P L fem-peroneal bypass [...] / Volume Laterality 05/19/2015 10:34 AM EST Mariano Doyle MD VASCULAR ORDERABLES Performing Organization Address City/State/ZIP Code Phon e Number VASCUBASE SOSA, legs, multiple levels (05/19/2015 10:34 AM EST) Component Value Ref Test Analysis Performed At [facility] Range Method Time Signature VB Text Department: Vascular Surgery Lab VASCUBASE Report Patient: [id number] (CARRIE PERRY) CPT: 07427 ICD10: I73.9 Referring Physician: MARIANO DOYLE ?? Indications: ??S/P L fem-peroneal bypass [...] / Volume Laterality 05/19/2015 10:34 AM EST Mariano Doyle MD VASCULAR ORDERABLES Performing Organization Address City/State/ZIP Code Phon e Number VASCUBASE documented in this encounter Visit Diagnoses Diagnosis PAD (peripheral artery disease) Peripheral vascular disease, unspecified documented in this encounter Care Teams Facility Assistant Relationship Specialty Start Date End Date Shirley Cardenas, BUSINESS ANALYST PCP - General 04/01/15 05/18/15 documented as of this encounter
--- OUTSIDE RECORDS SUMMARY | 2022-01-25 01:00 | XMS_ITS | Encounter Summary ---
:1950 Author Organization [facility] [place] [address] Care Team Providers Name Role Phone Shirley Cardenas APRN Primary Care Provider Encounter Details Date Type Department Care Team Description 04/05/2015 Notes Only Vascular Surgery at [facility] Sienna Cordon, [place] [address] Social History Tobacco Use Types Packs/Day Years Used Date Never Smoker Smokeless Tobacco: Never Used Alcohol Use Standard Drinks/Week Comments No 0 (1 standard drink = 0.6 oz pure alcoho l) Sex Assigned at Date Recorded Not on file documented as of this encounter Progress Notes Sienna Cordon, RN - 04/05/2015 12:49 PM EDT Clinical Research Nurse note 9.9.2015: Carrie Hurst was identified as a potential candidate for participation in the BEST-CLI trial, a randomized, multicenter, controlled trial to compare best endovascular versus best surgical therapy in patients with critical limb ischemia sponsored by the National Institutes of Health. The trial was introduced to Ms. Hurst by Dr. Whtiaker via telephone and by this screen writer in person. I reviewed the BEST-CLI trial consent in page by page format in it's entirety with Carrie including information about the purpose of data collection, privacy issues and requirement to complete study follow-up visits. I assured her that participation is completely voluntary. She was given adequate time toreview the consent form, ask questions and receive answers to those questions prior to signing the consent form. She verbalized understanding that the consent was voluntary and withdrawal of consent can be made at any time with a written request. She voluntarily signed the consent form at 0740 and a copy was given for her records. My contact information was also given. Following the consent process, the following were completed per study protocol: -Pain scale assessment - Quality of life questionnaires including VascuQol, SF-12, and EQ-5D Other procedures done as part of her routine care include blood work, vein mapping, medical history review, medication review, and physical assessment. Her pre-randomization angiogram was completed today. She was deemed a screen fail prior to randomization. documented in this encounter Plan of Treatment Not on filedocumented as of this encounter Visit Diagnoses Not on filedocumented in this encounter Care Teams Third Cook Relationship Specialty Start Date End Date Shirley Cardenas APRN PCP - General 04/01/15 05/18/15 documented as of this encounter
--- OUTSIDE RECORDS SUMMARY | 2022-01-25 01:00 | XMS_ITS | Encounter Summary ---
:1950 Author Organization [facility] [place] [address] Care Team Providers Name Role Phone Gordy Gregg MD Primary Care Provider [phone] Reason for Visit Reason Comments Follow-up Encounter Details Date Type Department Care Team Description 05/19/2015 Office Visit Cardiology at [facility] Michael Luong PVD (peripheral vascular dis ease) with claudication; [facility] GAIL Casey ASCVD (arteriosclerotic cardiovascular d isease) Drive [place], [place] CENTER [address] CARDIOLOGY DEPT. [phone] [place], [place] [address] Social History Tobacco Use Types Packs/Day Years Used Date Never Smoker Smokeless Tobacco: Never Used Alcohol Use Standard Drinks/Week Comments No 0 (1 standard drink = 0.6 oz pure alcoho l) Sex Assigned at Date Recorded Not on file documented as of this encounter Last Filed Vital Signs Vital Sign Reading Time Taken Comments Blood Pressure 153/67 05/19/2015 12:40 PM EST Pulse 75 05/19/2015 12:40 PM EST Temperature - - Respiratory Rate - - Oxygen Saturation 98% 05/19/2015 12:40 PM EST room a ir Inhaled Oxygen Concentration - - Weight 48.5 kg (107 lb) 05/19/2015 12:40 PM EST Height 152.4 cm (5') 05/19/2015 12:40 PM EST Body Mass Index 20.9 05/19/2015 12:40 PM EST documented in this encounter Progress Notes Michael Luong PA - 05/19/2015 1:11 PM EST HPI: Carrie Hurst is here today for routine follow-up. She saw vascular surgery today and unfortunatelyshe requires redo revascularization surgery Of her left leg. She is status post SFA to distal peroneal bypass. When I saw her about one month ago I had initiated metoprolol 25 mg daily because of some vague chest discomfort only while supine. Apparently this is helped in that she has no further symptoms. A recent dobutamine stress test showed possible old inferior infarction with possible inferoapical ischemia. Her ejection fraction was 65%. She was able to exercise to 85% of her predicted max. She had no issues with her prior vascular surgery including the anesthesia. She is diabetic. There is no history of cerebrovascular disease or renal disease. She has never smoked cigarettes. Patient Active Problem List Diagnosis ??? HLD (hyperlipidemia) ??? Claudication ??? Non-healing ulcer of foot Previous wound to left foot between 4th & 5th toe, currently resolved, 03/2015 ??? DMII (diabetes mellitus, type 2) ??? Hypercholesterolemia ??? Hypertension ??? PAD (peripheral artery disease) Current Outpatient Rx Name Route Sig Dispense Refill ??? sertraline (ZOLOFT) 50 mg Tablet Oral Take 50 mg by mouth daily. ??? HYDROcodone-acetaminophen (NORCO) 5-325 mg Tablet Oral Take 1 tablet by mouth every 6 hours as needed for Pain (1-2 tabs every 6-8 hours as needed for pain). 30 tablet 0 ??? meTOPROLOL succinate (TOPROL-XL) 25 mg Tablet Sustained Release 24 hr Oral Take 1 tablet by mouth daily. 30 tablet 12 ??? warfarin (COUMADIN) 3 mg Tablet Oral Take 1 tablet by mouth daily. 30 tablet 11 ??? warfarin (COUMADIN) 1 mg Tablet Oral Take 1 tablet by mouth as needed (as needed for coumadin dose adjustments). 15 tablet 11 ??? aspirin 81 mg Tablet, Delayed Release (E.C.) Oral Take 1 tablet by mouth daily. 30 tablet 3 ??? metFORMIN (GLUCOPHAGE) 500 mg Tablet Oral Take 1,000 mg by mouth 2 times daily (with meals). Takes 2 bid ??? simvastatin (ZOCOR) 20 mg Tablet Oral Take 20 mg by mouth nightly. ??? lisinopril (PRINIVIL;ZESTRIL) 5 mg Tablet Oral Take 5 mg by mouth daily. ??? acetaminophen (TYLENOL) 325 mg Tablet Oral Take 325 mg by mouth every 4 hours as needed for Pain. ??? DISCONTD: oxyCODONE (ROXICODONE) 5 mg Tablet Oral Take 1 tablet by mouth every 6 hours as needed for Pain (as needed for leg pain). 20 tablet 0 ??? multivitamin (THERAGRAN) Tablet Oral Take 1 tablet by mouth daily. Allergies: Review of patient's allergies indicates no known allergies. Interval ROS: Patient denies cough, fever, PND, orthopnea, activity intolerance, leg swelling, change in bowel habit, presyncope or syncope. Physical Exam: Blood pressure 153/67, pulse 75, height 152.4 cm (5'), weight 48.535 kg (107 lb), SpO2 98 %. General: WD, WN HEENT: No JVD or carotid abnormalities Lungs: Clear to A+P Cor: RR, normal S1, S2. PMI not displaced. No murmur or gallop Assessment: Peripheral vascular disease requiring redo surgery Normal left ventricular function with only possible evidence of inferior ischemia No cardiac symptoms Plan: Continue same medications Proceed with surgery as planned continuing metoprolol during the perioperative period. No further testing is necessary. She likely would benefit from more aggressive antihypertensive medications following surgery. documented in this encounter Plan of Treatment Not on filedocumented as of this encounter Visit Diagnoses Diagnosis PVD (peripheral vascular disease) with c laudication Peripheral vascular disease, unspecified ASCVD (arteriosclerotic cardiovascular d isease) Unspecified cardiovascular disease documented in this encounter Care Teams Inside Account Representative Relationship Specialty Start Date End Date Gordy Gregg MD PCP - General Family Medicine 05/19/[address] [place] [address] documented as of this encounter
--- OUTSIDE RECORDS SUMMARY | 2022-01-25 01:00 | XMS_ITS | Encounter Summary ---
:1950 Author Organization [facility] [place] [address] Care Team Providers Name Role Phone Shirley Cardenas APRN Primary Care Provider Reason for Visit Reason Comments Follow-up Encounter Details Date Type Department Care Team Description 04/15/2015 Office Visit Cardiology at [facility] Michael Luong ASCVD (arteriosclerotic [facility] GA[facility] [place] cardiovascular disease) [place], [place] [address] CARDIOLOGY DEPT. [phone] [place], [place] [address] Social History Tobacco Use Types Packs/Day Years Used Date Never Smoker Smokeless Tobacco: Never Used Alcohol Use Standard Drinks/Week Comments No 0 (1 standard drink = 0.6 oz pure alcoho l) Sex Assigned at Date Recorded Not on file documented as of this encounter Last Filed Vital Signs Vital Sign Reading Time Taken Comments Blood Pressure 128/80 04/15/2015 10:49 AM EDT Pulse 94 04/15/2015 10:49 AM EDT Temperature - - Respiratory Rate - - Oxygen Saturation 99% 04/15/2015 10:49 AM EDT Inhaled Oxygen Concentration - - Weight 50.6 kg (111 lb 8 oz) 04/15/2015 10:49 AM EDT Height 152.4 cm (5') 04/15/2015 10:49 AM EDT Body Mass Index 21.78 04/15/2015 10:49 AM EDT documented in this encounter Progress Notes Michael Luong PA - 04/15/2015 11:31 AM EDT HPI: Ms Hurst is here today for cardiac evaluation. Apparently she required a rather urgent left SFA peroneal bypass occurred on March 18, 2015. This was preceded by a dobutamine stress test showing possible old inferior infarction with possible inferoapical ischemia. Her ejection fraction was 65%. Sheachieved 85% of her predicted maximal heart rate during the stress test. She proceeded to have her surgery without complications. She does not report exertional chest discomfort. She does have a vague tightness in her chest at times while laying down. Admittedly she is not able to do action the way of exercise due to her recent surgery however she does walk and is able to climb stairs slowly without significant shortness of breath and no chest pain. She has diabetes and hypertension. She has never been a smoker. There is a family history of early coronary disease. We discussed the various options. I reviewed the stress test report with her. Options currently available include medical therapy or angiography and possible intervention however she has no real significant symptoms concerning at the moment. She would like to try any medications get farther from her recent vascular surgery and increase her activities gradually to see how she feels. Discussed adding a beta jose a to her regimen. Her resting heart rate was 94 at cardiology clinic today. Her current other medications appear appropriate. We also reviewed the necessity to take aspirin for life. Patient Active Problem List Diagnosis ??? HLD (hyperlipidemia) ??? Claudication ??? Non-healing ulcer of foot Previous wound to left foot between 4th & 5th toe, currently resolved, 03/2015 ??? DMII (diabetes mellitus, type 2) ??? Hypercholesterolemia ??? Hypertension ??? PAD (peripheral artery disease) Current Outpatient Rx Name Route Sig Dispense Refill ??? oxyCODONE (ROXICODONE) 5 mg Tablet Oral Take 1 tablet by mouth every 6 hours as needed for Pain (as needed for leg pain). 20 tablet 0 ??? warfarin (COUMADIN) 3 mg Tablet Oral Take 1 tablet by mouth daily. 30 tablet 11 ??? warfarin (COUMADIN) 1 mg Tablet Oral Take 1 tablet by mouth as needed (as needed for coumadin dose adjustments). 15 tablet 11 ??? enoxaparin (LOVENOX) 100 mg/mL Syringe Subcutaneous Inject 0.92 mLs subcutaneously as needed (to be taken only when instructed by primary physician to do so related to INR<2). 2 Syringe 3 ??? multivitamin (THERAGRAN) Tablet Oral Take 1 tablet by mouth daily. ??? [...] 4 hours as needed for Pain. ??? meTOPROLOL succinate (TOPROL-XL) 25 mg Tablet Sustained Release 24 hr Oral Take 1 tablet by mouth daily. 30 tablet 12 ??? DISCONTD: ibuprofen (ADVIL;MOTRIN) 200 mg Tablet Oral Take 400 mg by mouth every 6 hours as needed for Pain. Allergies: Review of patient's allergies indicates no known allergies. Interval ROS: Patient denies cough, fever, PND, orthopnea, activity intolerance, leg swelling, change in bowel habit, presyncope or syncope. Physical Exam: Blood pressure 128/80, pulse 94, height 152.4 cm (5'), weight 50.576 kg (111 lb 8 oz), SpO2 99 %. General: WD, WN HEENT: No JVD or carotid abnormalities Lungs: Clear to A+P Cor: RR, normal S1, S2. PMI not displaced. No murmur or gallop Lab Results Component Value Date NA 140 03/24/2015 K 3.1* 03/24/2015 CL 101 03/24/2015 CO2 27 03/24/2015 Lab Results Component Value Date CREATININE 0.34* 03/24/2015 Lab Results Component Value Date WBC 6.7 03/24/2015 HGB 9.0* 03/24/2015 HCT 25.8* 03/24/2015 MCV 89.0 03/24/2015 PLATELET 208 03/24/2015 Assessment: Status post recent left lower extremity peripheral vascular surgery Possible small area of infarction and ischemia of the inferior apex Anemia which may be contributing to her tachycardia. Plan: Start metoprolol 25 mg daily Continue statin, MARLYN and aspirin Follow-up in 4-6 weeks documented in this encounter Plan of Treatment Not on filedocumented as of this encounter Visit Diagnoses Diagnosis ASCVD (arteriosclerotic cardiovascular d isease) Unspecified cardiovascular disease documented in this encounter Care Teams Spanish Tutor Relationship Specialty Start Date End Date Shirley Cardenas APRN PCP - General 04/01/15 05/18/15 documented as of this encounter
--- OUTSIDE RECORDS SUMMARY | 2022-01-25 01:00 | XMS_ITS | Encounter Summary ---
:1950 [place] [address] Care Team Providers Name Role Phone Miranda Cardenas APRN Primary Care Provider Encounter Details Date Type Department Care Team Description 03/18/2015 - Hospital Encounter 3 [place] O[place]eda, Maribel rodriguez; 03/24/2015 [facility] PAD (peripheral artery disease) [facility] [address] [place] [id number] [phone] Social History Tobacco Use Types Packs/Day Years Used Date Never Smoker Smokeless Tobacco: Never Used Alcohol Use Standard Drinks/Week Comments No 0 (1 standard drink = 0.6 oz pure alcoho l) Sex Assigned at Date Recorded Not on file documented as of this encounter Last Filed Vital Signs Vital Sign Reading Time Taken Comments Blood Pressure 141/64 03/24/2015 1:00 PM EDT Pulse 74 03/24/2015 1:00 PM EDT Temperature 36.7 ??C (98.1 ??F) 03/24/2015 1:00 PM EDT Respiratory Rate 16 03/24/2015 1:00 PM EDT Oxygen Saturation 98% 03/24/2015 1:00 PM EDT Inhaled Oxygen Concentration - - Weight 61.1 kg (134 lb 11.2 oz) 03/22/2015 6:44 AM EDT Height 152.4 cm (5') 03/19/2015 5:52 PM EDT Body Mass Index 26.31 03/19/2015 5:52 PM EDT documented in this encounter Discharge Summaries Rashi Farfan MD - 03/24/2015 7:17 AM EDT Inpatient - Discharge Summary Patient Name: Chan Perry Patient Age: 64 y.o. Birthdate: 1950 Admit date: 03/18/2015 Discharge date and time: 03/24/2015 Attending Physician: Glen Doyle MD Discharge Diagnoses (Hospital Problems) and Secondary Diagnoses (Chronic Problems): Active Hospital Problems Diagnosis ??? Claudication ??? PAD (peripheral artery disease) Resolved Hospital Problems Diagnosis Date Resolved No resolved problems to display. Active Non-Hospital Problems Diagnosis ??? HLD (hyperlipidemia) ??? Non-healing ulcer of foot Previous wound to left foot between 4th & 5th toe, currently resolved, 03/2015 ??? DMII (diabetes mellitus, type 2) ??? Hypercholesterolemia ??? Hypertension Operations/Major Procedures: 03/18/15: left SFA-peroneal bypass with left GSV and left lateral fibulectomy History of Presentation: 64 yo female with PMHx significant for DM, HTN, HLD with bilateral lower extremity claudication that has now transitioned to CLI (rest pain) of the LLE. ABIs are diminished bilaterally. Hospital Course: In surgery, diminutive left GSV with multiple side branches. Left lateral fibulectomy performed with peroneal injury/transection noted with bone removal. Vein interposition graft of left peroneal artery for repair (end to end). Lateral subcutaneous venous tunnel of vein. Short segment(~3cm thromboendarterectomy of proximal left SFA; profunda without stenosis. End to side proximal left SFA anastomosis, distal end to side anastomosis to the vein interposition of the peroneal. [id number] units, Protamine 20 mg. Papavarine 60 mg. Completion duplex demonstrated good bypass flow with EDV in 20s. Bypass pulse at knee and strong DP signal fed from peroneal in foot present and PT signalat ankle present at case completion. Pt admitted to the floor postop for monitoring. Low-dose heparin drip maintained postop transitioned to therapeutic POD#2. Pt initially had pain control issues, started on NET WEB DEVELOPER which ran through POD#3 when pt was transitioned to oral medications with good result. Oliva removed and pt voiding adequately. Pt's Hgb steadily down-trending, 10.3 to 7.6, pt rec'd IU PRBC's POD#4. Hgb 9.0 at discharge. Pt's heparin was dc'd POD#3 with 1mg coumadin given, heparin re-started POD#4 for low INR and re-dosed at 3mg coumadin. Pt discharged on daily coumadin 3mg to be dosed byPCP s/t daily INR. Pt given PRN lovenox in the event of INR <2. Pt seen by PT who recommend home w ith VNA/PT. Important Studies and Lab Data: Labs: Bubble Gum Interactive Lab Results Component Value Date INR 2.1* 03/24/2015 PT 24.6* 03/24/2015 PTT 120* 03/24/2015 Studies: Findings: Right Pressure (mm Hg) Brachial Artery 151 Left Pressure (mm Hg) SOSA Waveform TBI Brachial Artery 143 Dorsalis Pedis (Ankle) Artery 165 1.09 Marshall-Biphasic Posterior Tibial (Ankle) Artery 153 1.01 Marshall-Biphasic Great Toe 51 0.34 Interpretation: LEFT: No significant lower extremity arterial occlusive disease identified at rest at the calf level. Normal ankle/brachial pressure ratios and ankle Doppler waveforms. Toe-brachial index substantially lower than ankle-brachial index indicates presence of moderately severe arterial occlusive disease in the distal calf and foot. Improved from pre-operative exam done on 03/08/2015. Discharge Conditions/Prognosis: Stable Discharge to: Home with VNA/PT, PCP f/u for anticoagulation Discharge Medications: Your Medications New Medications Dose Details enoxaparin 60 mg/0.6 mL Syrg Commonly known as: LOVENOX Inject 0.92 mLs subcutaneously as needed (inject 92ml dose only if directed by PCP for INR<2). 1.5 mg/kg/dose Quantity: 2 Syringe Refills: 3 oxyCODONE 5 mg Tab Commonly known as: ROXICODONE Take 1 tablet by mouth every 6 hours as needed for Pain (as needed for leg pain). 5 mg Quantity: 30 tablet Refills: 0 * warfarin 3 mg Tab [...] care provider to review them with you. Continued medications, unchanged Dose Details acetaminophen 325 mg Tab Commonly known as: TYLENOL Take 325 mg by mouth every 4 hours as needed for Pain. 325 mg Refills: 0 aspirin 81 mg Tbec Take 1 tablet by mouth daily. 81 mg Quantity: 30 tablet Refills: 3 ibuprofen 200 mg Tab Commonly known as: ADVIL;MOTRIN Take 400 mg by mouth every 6 hours as needed for Pain. 400 mg Refills: 0 lisinopril 5 mg Tab Commonly known as: PRINIVIL;ZESTRIL Take 5 mg by mouth daily. 5 mg Refills: 0 metFORMIN 500 mg Tab Commonly known as: GLUCOPHAGE Take 500 mg by mouth 2 times daily (with meals). Takes 2 bid 500 mg Refills: 0 multivitamin Tab Commonly known as: THERAGRAN Take 1 tablet by mouth daily. 1 tablet Refills: 0 simvastatin 20 mg Tab Commonly known as: ZOCOR Take 20 mg by mouth nightly. 20 mg Refills: 0 Updated Allergies/ADRs: No Known Allergies Follow-up Recommendations for Providers: Please draw daily INR for coumadin dosing. Goal INR 2-3. If pt's INR<2, please instruct pt to take lovenox dose X1 and re-check INR next day. Instructions Given to Patient at Discharge: Patient Instructions Patient Instructions You were admitted on 03/18/15 after having a left leg arterial bypass to get more blood flow to your leg. All of this went very well. Dr. Doyle will want to see you in approximately two weeks for a wound check and possible staple removal and in one month with ABIs and a duplex of your bypass. All of this will be ordered and sent to you in the mail. If for some reason you don't receive this within a week or so please call our office as your followup is very important. Anticoagulation: on coumadin for bypass graft patency. Goal INR 2-3. At discharge INR=2.1 Call your doctor if: Any fever, any [...] all incisions under running water, pat dry. You have an apt with Dr. Cardenas on April 07, 2015 @9:00 AM For any problems or questions please call [phone] SAMIA Coleman, analysis reporting developer Nurse Clinician SAMIA Lopez, analysis reporting developer Nurse Clinician For issues on weeknights after 5pm and weekends please call [phone] and ask for the Vascular Fellow shell mold bonder. General Instructions None Future Appointments and Orders Future Appointments Provider Department Dept Phone 03/25/2015 12:40 PM Michael Luong PA Cardiology [phone] Joint Appt CARDIOLOGY INTAKE, NURSE ONE Cardiology [phone] 04/06/2015 10:30 AM Hope Virk APRN Vascular Surgery [phone] Future Orders Complete By Expires SOSA, legs, multiple levels [VAS8 Custom] 03/24/2015 (Approximate) 03/24/2016 Process Instructions: Scheduling Instructions: Please schedule with one month postop clinic f/u Questions: Indication for study/signs & symptoms: s/p left fem-peroneal bypass Question to be answered: bloodflow to feet Should this service/procedure be billed to the research sponsor?: Which location will this be performed?: [facility] Referral to Home Health - at DISCHARGE [[id number] CPT(R)] As directed Process Instructions: Scheduling Instructions: Comments: DOCUMENTATION FOR VNA SERVICES (INCLUDING THOSE PATIENTS WITH MEDICARE COVERAGE REQUIRING HOME VNA SERVICES AND/OR HOSPICE SERVICES) PATIENT'S LOCATION: Chan Perry [address] [place] [phone] (home) Clergy Member's Name: self In discussion with the attending physician, it is certified that this patient is under their care and that they, or a nurse practitioner, clinical nurse specialist or Physician Shovel Mechanic who is workingdirectly with them, had a face to face encounter that meets the physician face to face encounter requirements with this patient on 03/22/2015 The encounter with the patient was in whole, or in part, for the following medical condition, which is the primary reason for home health care services: left fem-peritoneal bypass In discussion with the provider, it is certified that, based on their findings, the following services are medically necessary for home health services. To provide the following care/treatments with the clinical findings supporting the need for servicesas follows: HOME CARE ORDERS: Nursing (X ) PT(X ) OT (X ) SINTER PRESS OPERATOR ( ) PLASTER MOLDER ( ) HANDMADE TILE ARTIST ( ) Hospice ( ) Specific orders: RN for physical assessment, medication management and home safety eval; please inspect and monitor surgical wound and perform dressing changes per discharge summary. Reinforce S&S of concern to report to PCP. PT/OT for strengthening and reconditioning, OT for energy conservation. Pt is on coumadin for anticoagulation. Please draw daily INR and send result to PCP for coumadin dosing. Pt may need lovenox injections/teaching PRN, to be prescribed by PCP. Please assess left leg wounds and monitor for s/sx of infection. Please call with any redness, increase or change to drainage or separation of wound edges. Dry gauze and tape can be placed to cover incision as needed for drainage, replace frequently if saturated. Wounds can be left open to air if no drainage is present. Pt can shower, allowing wounds to be cleansed with soap and water, pat dry. All VNA agencies which cover the area of patient's residence have been reviewed, either verbally or in writing, and patient/family have chosen the home health care agency as follows for home services: HOME HEALTH CARE AGENCY: [facility] PHONE: [phone] FAX: [phone] Please note that any additional orders needs or changes will need to be obtained from this patient'sPCP: MIRANDA CARDENAS APRN (General) Questions: Agency name and contact information: [facility] Patient location post discharge: own home What services are requested: Registered Nurse Physical Therapy Occupational Therapy Start date: 03/24/2015 Responsible MD post discharge contact info: PCP Discharge References/Attachments: Discharge References/Attachments None Electronically Signed By: ADRIANA LOCKHART RN 03/24/2015 RASHI FARFAN MD 03/24/15 documented in this encounter Discharge Instructions Patient InstructionsAdriana Lockhart RN - 03/18/2015 10:53 AM EDT Patient Instructions You were admitted on 03/18/15 after having a left leg arterial bypass to get more blood flow to your leg. All of this went very well. Dr. Doyle will want to see you in approximately two weeks for a wound check and possible staple removal and in one month with ABIs and a duplex of your bypass. All of this will be ordered and sent to you in the mail. If for some reason you don't receive this within a week or so please call our office as your followup is very important. Anticoagulation: on coumadin for bypass graft patency. Goal INR 2-3. At discharge INR=2.1 Call your doctor if: Any fever, any [...] all incisions under running water, pat dry. You have an apt with Dr. Cardenas on April 07, 2015 @9:00 AM For any problems or questions please call [phone] SAMIA Coleman, analysis reporting developer Nurse Clinician SAMIA Lopez, analysis reporting developer Nurse Clinician For issues on weeknights after 5pm and weekends please call [phone] and ask for the Vascular Fellow shell mold bonder. documented in this encounter Medications at Time of Discharge Medication Sig Dispensed Refills Start Date End Date aspirin 81 mg Tablet, Take 1 tablet by 30 tablet 3 03/16/20 15 Delayed Release (E.C.) mouth daily. acetaminophen (TYLENOL) Take 325 mg by mouth 0 325 mg Tablet every 4 hours as needed for Pain. oxyCODONE (ROXICODONE) 5 Take 1 tablet by 30 tablet 0 03/2404/06/2015 mg Tablet mouth every 6 hours as needed for Pain (as needed for leg pain). warfarin (COUMADIN) 3 mg Take 1 tablet by 30 tablet 11 03/2406/01/2015 Tablet mouth daily. warfarin (COUMADIN) 1 mg Take 1 tablet by 15 tablet 11 03/2406/01/2015 Tablet mouth as needed (as needed for coumadin dose adjustments). multivitamin (THERAGRAN) Take 1 tablet by 0 05/07/2017 Tablet mouth daily. ibuprofen (ADVIL;MOTRIN) Take 400 mg by mouth 0 04/15/2015 200 mg Tablet every 6 hours as needed for Pain. metFORMIN (GLUCOPHAGE) Take 1,000 mg by 0 08/03/2015 500 mg Tablet mouth 2 times daily (with meals). Takes 2 bid simvastatin (ZOCOR) 20 mg Take 20 mg by mouth 0 06/12/2016 Tablet nightly. lisinopril Take 5 mg by mouth 0 2015 (PRINIVIL;ZESTRIL) 5 mg daily. Tablet documented as of this encounter Progress Notes Troy Ha RN - 03/24/2015 3:35 PM EDT Patient discharged to home with VNA services. IV removed, site benign. My assessment remains unchanged from my previous assessment. Patient denies chest pain and shortness of breath. Discussed pain management with patient, pain tolerable. Patient has all belongings. Patient received discharge summary and prescriptions. These were reviewed. All questions answered. Patient encouraged to call with questions or concerns. Patient discharged to home with family. Discharge Summary was faxed, RN called report to VNA. Ryder Pulliam OTA - 03/24/2015 11:12 AM EDT Occupational Therapy Treatment Note Visit #: 2 Patient Dx: Chan Perry is a 64 y.o. female patient of Glen Tracy MD, admitted on 03/18/2015 with PMHx significant for DM, HTN, HLD and a history of BLE claudication who presented to clinic on 03/08/15 with new complaint of LLE rest pain in the last 3 months. There is no tissue loss. ABIs are diminished bilaterally. DSE with focal reversible ischemia OR on 03/18 for L SFA-peroneal bypass with lateral fibulectomy and peroneal vein interposition graft (per Dr. Kwon 03/21/15). Latest Hgb was 7.6; received blood transfusion on 03/21; currently on . Past Medical History Past Medical History Diagnosis Date ??? HTN (hypertension) ??? DM (diabetes mellitus) metformin ??? Hypercholesterolemia ??? PVD (peripheral vascular disease) Past Surgical History Past Surgical History Procedure Laterality Date ??? Skin graft Left left 2nd metacarpal ??? Pro vein bypass graft, fem-tibial Left 03/18/2015 @BYPASS GRAFT, FEM.-ANT. TIB, POST. TIB, PERONEAL, DP W\ VE[place]DU[place] [id number]) performed by Glen Doyle MD at [facility] MAIN OR Social History: Patient lives boyfriend in [facility] (near [place]) Home Setup: Ramp to enter 1 level home with basement (boyfriend will address all basement needs) during recovery, tub/shower DME: walker (borrowed from family) Baseline ADL/Mobility: Independent with ADL???s and IADL???s 1. Independent with activity prior to 1 month ago; walked outside prior to 1 month ago 2. 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 Boyfriend is juan f banegas; will not be home 28/01 Code Status: Full Code Activity Orders:therapeutic walk 3 times a day Precautions: carb control diet, bleeding Interval History: CAHTY, d/c planning S: I had a really good night I think O: Patient seen for therapeutic activities and demonstrated the following: ?? A,Ox4 ?? Willing to participate, d/c planning ?? Appropriate conversation/questioning ?? Dressing tasks completed with Supervision/Independent; ?? Demonstrating good standing balance while completing ADL tasks ?? Toilet transfer with supervision, independent with hygiene ?? Completed bathing tasks sinkside with setup. ?? Supine>sit with supervision from flat bed ?? Sit>stand with supervision ?? Transferred to chair with supervision ?? Ambulated community distances with SBA and FWW ?? Pt left supine, call aparicio in place, no needs identified, RN aware Pain: no c/o pain Education: Pt/family education ongoing Staff Communication: Patient status, treatment, and mobility recommendations discussed with nursing/other staff. A: Patient presents with impaired ability to perform daily activities and functional mobility secondary to s/p OR on 03/18 for L SFA perioneal bypass with lateral fibulectomy and perioneal vein interposition graft. Pt tolerated session well and continues to demonstrate progress towards completion of OTgoals. Pt will benefit from ongoing therapeutic interventions to achieve pt's and therapy goals Occupational Therapy Goals: To be achieved by 03/27/15 4. Pt will be mod I with ADLs in sitting MET 5. Pt will be mod I with tub transfer 6. Pt will be mod I with grooming in standing at sink MET 7. Pt will be mod I with toilet transfer MET 8. Pt will be mod I with light meal prep MET 9. Pt will participate in 15 mins of therapeutic activity to increase strength and endurance for ADls and transfers MET Plan: Pt to be seen 2-4 per week for therapy including Role of occupational therapy/rehabilitation, Transfers, Assistive device/technique, Adaptive equipment training, ADL, Exercise, Breathing exercises, Positioning, Safety, Precautions/Protocol, Functional Mobility, Activity pacing/Energy conservation, Recommendations, Family training and Discharge planning Eval Date: 03/21/2015 Total time spent with patient: 58 minutes Total timed interventions: 58 minutes for SCHM Pager: [phone] JACKIE NEWMAN Occupational Therapy Rehabilitation Department Alana Chen PTA - 03/23/2015 4:05 PM EDT Physical Therapy Note Treatment # 3 Patient profile: Pt. is a 64 y.o. female with PMH significant for DM, HTN, HLD admitted on 03/18/2015by Glen Tracy MD for as per H&P bilateral lower extremity claudication that has now transitioned to CLI (rest pain) of the LLE. ABIs are diminished bilaterally. DSE with focal reversible ischemia. s/p Left SFA-peroneal bypass with lateral fibulectomy and peroneal vein interposition graft. PT consulted 03/21/15. . PMH: Past Medical History Diagnosis Date ??? HTN (hypertension) ??? DM (diabetes mellitus) metformin ??? Hypercholesterolemia ??? PVD (peripheral vascular disease) Past Surgical History Procedure Laterality Date ??? Skin graft Left left 2nd metacarpal ??? Pro vein bypass graft, fem-tibial Left 03/18/2015 @BYPASS GRAFT, FEM.-ANT. TIB, POST. TIB, PERONEAL, DP W\ VE[place] CONDUIT [place] [id number]) performed by Glen Doyle MD at [facility] MAIN OR Social History: Patient [place] lives with her boyfriend on the main level of a ranch style home. Her boyfriend works FT as a box car checker. Stairs: Ramp to enter Baseline Mobility: Independent without an AD within her home. Pt stopped walking longer distances outdoors when she developed an ulcer on her left toe ~January. 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 Equipment at home: Walker (not sure if it is a FWW or 4WW) Precautions/Special Considerations: Full code; bleeding precautions, therapeutic walk 3x daily, upwith assistance, monitor BP 24hr events: ?? No issues overnight, AVSS ?? Continued on heparin drip ?? INR remains unchanged (1.6), will give 3 mg warfarin this pm again ?? Pain continues to improve Started on NBOs, no BM yet but will continue to monitor Subjective: ???I have help at home. I have a ramp to get into the house and live in a ranch house.?? Objective: Pt seen for PT today to address goals. Pain: Tolerable. Vital Signs: WNL Mental Status: alert, oriented to person, place, and time, pleasant, cooperative Bed Mobility: Supine><Sit with HOB flat, independent. Transfers: Sit><Stand to and from a FWW, independent. Gait: Distance: ~150ft Device used: rolling walker Level of assist: Independent. Gait pattern: Steady slow step through. Pt. to utilize rolling walker and stand by supervision for ambulation with nursing while she remainsin house. Balance: Sitting: Good Standing: Good Education: patient have been educated on Bed mobility, Transfers, Assistive device/technique, Stairs, Exercise, Safety , Precautions/protocol, Gait , Activity pacing/Energy conservation, Role of therapy, Balance and Discharge planning and verbalizes understanding. Patient status, treatment, and mobility recommendations discussed with nursing. Assessment: Pt was pleasant and willing to participate in PT this afternoon. Pt demonstrated increase tolerance to functional bed mobility transfers and gait activities. Pt has met hospital PT goals tohome with VNA/PT services when medically ready for d/c. Goals: To be achieved by 03/28/15. 1. Pt. to demonstrate knowledge of precautions and weight bearing limitations during functional activities. 2. Pt. to demonstrate understanding of appropriate exercises. 3. Pt. to perform bed mobility independently. 4. Pt. to perform sit<>stand transfers independently with LRD. 5. Pt. to ambulate household distances; with LRD independently. 6. Family or caregiver to demonstrate understanding of therapeutic interventions to support the careof the patient. Plan: Pt has met hospital PT goals to home with VNA/PT services when medically ready for d/c. Equipment needs: TBD closer to d/c; potentially FWW Discharge Recommendations: Home with VNA/PT services Total time spent with patient: 15 minutes Total timed interventions: 15 minutes ALANA CHEN, CARTON FOLDER 03/23/2015 Pager: [phone] Physical Therapy Rehabilitation Department Dion Jolly RN - 03/23/2015 2:19 PM EDT Office of Care Management/Discharge Planning Note Compound Machine Operator Dion Jolly RN, AC (pager [phone]) Patient: Chan Perry : 1950 (64 y.o.) Home: [facility] [address]* LOS: 5 days Care reviewed with direct care JOSEPH Rojas. Reviewed record and interviewed patient. Reviewed CM role and services accepted. ?? Anticipated barriers to discharge: None ?? Identified patient/family concerns r/t discharge: None ?? Admission status: 03/19/15 IPI Order to Admit is appropriate. ?? Reason for need for continued hospitalization: anticoagulation via heparin drip, medication adjustment, increase ambulation ?? Anticipated discharge date: Possibly as early as 03/24 ?? Anticipated discharge place: Home with home health services ([facility] RN/PT/OT order is pended) vs rehab. PT has been paged to evaluate again. ?? Anticipated discharge needs: Has walker at home. ?? Family involved in discharge planning: Sister Antoni is at the bedside, supportive, and involved in discharge planning. ?? PCP: MIRANDA CARDENAS, TREATING INSPECTOR (General), Future Appointments Date Time Provider Department Center 03/25/2015 12:40 PM Michael Luong PA [facility] Plan: Care Management will continue to monitor progress, follow for continuity of care, and assist with discharge planning. Patient Active Problem List Diagnosis Code ??? Claudication 443.9 ??? Non-healing ulcer of foot 707.15 ??? DMII (diabetes mellitus, type 2) 250.00 ??? Hypercholesterolemia 272.0 ??? Hypertension 401.9 ??? PAD (peripheral artery disease) 443.9 Rashi Farfan MD - 03/23/2015 9:00 AM EDT Vascular Surgery Resident Inpatient Progress Note ID: Chan Perry is a 64 y.o. female with PMHx significant for DM, HTN, HLD with bilateral lowerextremity claudication that has now transitioned to CLI (rest pain) of the LLE. ABIs are diminished bilaterally. DSE with focal reversible ischemia. Now POD 5 s/p Left SFA-peroneal bypass with lateral f ibulectomy and peroneal vein interposition graft. 24hr events: ?? No issues overnight, AVSS ?? Continued on heparin drip ?? INR remains unchanged (1.6), will give 3 mg warfarin this pm again ?? Pain continues to improve Started on NBOs, no BM yet but will continue to monitor Subjective: No complaints this AM, denies nausea/vomit/chest pain/shortness of breath O: Last value Range last 24hrs Temperature Temp: 37 ??C (98.6 ??F) Temp: [36.6 ??C (97.9 ??F)-37 ??C (98.6 ??F)] Heart Rate Heart Rate: 84 Heart Rate: [76-93] Blood Pressure BP: 135/63 mmHg BP: (122-147)/(59-83) Respiratory Rate Resp: 16 Resp: [16] SpO2 SpO2: 97 % SpO2: [97 %-100 %] 03/22 07 - 03/23 0700 In: 895 [P.O.:680; I.V.:215] Out: 950 [Urine:950] Physical Exam: General: NAD, resting comfortably, pleasant, conversant HEENT: PERRL CVS: RRR Pulm: CTAB Abd: soft, nontender, non-distended. Incisions c/d/i Skin: warm, dry Ext: no c/c/e, cap refill <2sec. Incisions c/d/i. Palpable graft pulse over lateral left knee, bihasic DP/PT signals Neuro: CN 2-12 grossly intact, nonfocal, moving all four extremities spontaneously Recent Labs 03/23/15 0240 03/22/15 1659 03/22/15 0956 03/22/15 0338 03/21/15 0601 03/20/15 2352 WBC 6.7 -- 7.5 7.9 8.9 -- HGB 9.1* -- 9.4* 9.0* 7.6* -- HCT 27.3* -- 27.8* 26.2* 22.3* -- PLATELET 202 -- 183 176 144* -- PT 19.1* -- -- 20.0* 26.9* -- INR 1.6* -- -- 1.6* 2.4* -- PTT 76* 84* 46* -- 95* 88* Recent Labs 03/23/15 0240 03/22/15 0338 03/21/15 0601 NA 139 141 140 K 3.3* 3.6 4.0 CL 101 102 104 CO2 27 28 24 BUN 8 8 5* CREATININE 0.35* 0.42* 0.41* GLUCOSE 158 158 173 CALCIUM 8.0* 7.7* 7.8* NEW IMAGING: None in past 24 hours ?? SOSA legs, 03/22: Interpretation: LEFT: No significant lower extremity arterial occlusive disease identified at rest at the calf level. Normal ankle/brachial pressure ratios and ankle Doppler waveforms. Toe-brachial index substantially lower than ankle-brachial index indicates presence of moderately severe arterial occlusive disease in the distal calf and foot. Improved from pre-operative exam done on 03/08/2015. Previous ABIs with change from previous value: Date RIGHT DP RIGHT PT RT GR TOE LEFT DP LEFT PT LT GR TOE 0.49 0.52 0.25 0.32 0.24 0.12 Current ---- ---- ---- 1.09(+.77) 1.01(+.77) 0.34(+.22) ASSESSMENT: Chan Perry is a 64 y.o. female with PMHx significant for DM, HTN, HLD with bilateral lower extremity claudication that has now transitioned to CLI (rest pain) of the LLE. ABIs are diminished bilaterally. DSE with focal reversible ischemia. Now POD 3 s/p Left SFA-peroneal bypass with lateral fibulectomy and peroneal vein interposition graft. Doing well, reports adequate pain control, rest pain resolved. Tolerating a regular diet. Incisions c/d/i, no drainage or erythema. Palpable graft pulse over lateral left knee, bihasic DP/PT signals. Hgb currently 9.1, stable. UOP 650 cc. INR 1.6 PLAN: - tylenol/Oxycodone - Carb controlled diet - Continue weight-based heparin gtt - Coumadin at 3 mg, to be given again this pm - OOB, ambulate - PT/OT evaluation - Possible discharge tomorrow Please page with any questions Rashi Farfan P: [phone] Nereida Shipman RN - 03/23/2015 6:48 AM EDT Pt alert & oriented X4. Denies chest pain, no c/o shortness of breath.Telemetry strip indicated RARE V-BIGEM/OCC PVCs,RARE BEATS OF AIVR,vital signs stable. Will continue on telemetry. Ryder Pulliam OTA - 03/22/2015 3:29 PM EDT Occupational Therapy Treatment Note Visit #: 2 Patient Dx: Chan Perry is a 64 y.o. female patient of Glen Tracy MD, admitted on 03/18/2015 with PMHx significant for DM, HTN, HLD and a history of BLE claudication who presented to clinic on 03/08/15 with new complaint of LLE rest pain in the last 3 months. There is no tissue loss. ABIs are diminished bilaterally. DSE with focal reversible ischemia OR on 03/18 for L SFA-peroneal bypass with lateral fibulectomy and peroneal vein interposition graft (per Dr. Kwon 03/21/15). Latest Hgb was 7.6; received blood transfusion on 03/21; currently on 3 . Past Medical History Past Medical History Diagnosis Date ??? HTN (hypertension) ??? DM (diabetes mellitus) metformin ??? Hypercholesterolemia ??? PVD (peripheral vascular disease) Past Surgical History Past Surgical History Procedure Laterality Date ??? Skin graft Left left 2nd metacarpal ??? Pro vein bypass graft, fem-tibial Left 03/18/2015 @[facility], FEM.-ANT. TIB, POST. TIB, PERONEAL, DP W\ VE[place] [id number]) performed by Glen Doyle MD at [facility] MAIN OR Social History: Patient lives boyfriend in [facility] (near [place]) Home Setup: Ramp to enter 1 level home with basement (boyfriend will address all basement needs) during recovery, tub/shower DME: walker (borrowed from family) Baseline ADL/Mobility: Independent with ADL???s and IADL???s 1. Independent with activity prior to 1 month ago; walked outside prior to 1 month ago 2. 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 Boyfriend is cars 99tests; will not be home 28/01 Code Status: Full Code Activity Orders:therapeutic walk 3 times a day Precautions: carb control diet, bleeding Interval History: per MD note: 4. No issues overnight, AVSS 5. Received 1 U blood without incident 6. Re-started on heparin drip this am 7. Warfarin re-dosed to 3 mg to be given this pm 8. Continues to report improvement in LLE rest pain S: I'm feeling much better O: Patient seen for therapeutic activities and demonstrated the following: ?? A,Ox4 ?? Willing to participate, hopeful to get home soon ?? Appropriate conversation/questioning ?? Able to don pants with setup and instruction, standing and hiking pants with SBA; Assist to hold gown while pt tied pants ?? Min A to change gown, primarily 2/2 to tele ?? Supine>sit with supervision ?? Sit>stand with CGA ?? Transferred to chair with CGA ?? No signs of orthostatic hypotension ?? Provided demonstration of sock aid as well as instructing patient on it's use. Pt able to demonstrate learning and reproduce technique Pain: no c/o pain Education: Pt/family education ongoing Staff Communication: Patient status, treatment, and mobility recommendations discussed with nursing/other staff. A: Patient presents with impaired ability to perform daily activities and functional mobility secondary to s/p OR on 03/18 for L SFA perioneal bypass with lateral fibulectomy and perioneal vein interposition graft. Pt tolerated session well and continues to demonstrate progress towards completion of OTgoals. Pt will benefit from ongoing therapeutic interventions to achieve pt's and therapy goals Occupational Therapy Goals: To be achieved by 03/27/15 9. Pt will be mod I with ADLs in sitting 10. Pt will be mod I with tub transfer 11. Pt will be mod I with grooming in standing at sink 12. Pt will be mod I with toilet transfer 13. Pt will be mod I with light meal prep 14. Pt will participate in 15 mins of therapeutic activity to increase strength and endurance for ADls and transfers Plan: Pt to be seen 2-4 per week for therapy including Role of occupational therapy/rehabilitation, Transfers, Assistive device/technique, Adaptive equipment training, ADL, Exercise, Breathing exercises, Positioning, Safety, Precautions/Protocol, Functional Mobility, Activity pacing/Energy conservation, Recommendations, Family training and Discharge planning Eval Date: 03/21/2015 Total time spent with patient: 54 minutes Total timed interventions: 54 minutes for SCHM Pager: [phone] JACKIE NEWMAN Occupational Therapy Rehabilitation Department Alana Chen CARTON FOLDER - 03/22/2015 3:12 PM EDT Physical Therapy Note Treatment # 2 Patient profile: Pt. is a 64 y.o. female with PMH significant for DM, HTN, HLD admitted on 03/18/2015by Glen Tracy MD for as per H&P bilateral lower extremity claudication that has now transitioned to CLI (rest pain) of the LLE. ABIs are diminished bilaterally. DSE with focal reversible ischemia. s/p Left SFA-peroneal bypass with lateral fibulectomy and peroneal vein interposition graft. PT consulted 03/21/15. . PMH: Past Medical History Diagnosis Date ??? HTN (hypertension) ??? DM (diabetes mellitus) metformin ??? Hypercholesterolemia ??? PVD (peripheral vascular disease) Past Surgical History Procedure Laterality Date ??? Skin graft Left left 2nd metacarpal ??? Pro vein bypass graft, fem-tibial Left 03/18/2015 @[facility], FEM.-ANT. TIB, POST. TIB, PERONEAL, DP W\ VEIN CONDUIT ([place] [id number]) performed by Glen Doyle MD at [facility] MAIN OR Social History: Patient [place] lives with her boyfriend on the main level of a ranch style home. Her boyfriend works FT as a box car checker. Stairs: Ramp to enter Baseline Mobility: Independent without an AD within her home. Pt stopped walking longer distances outdoors when she developed an ulcer on her left toe ~January. 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 Equipment at home: Walker (not sure if it is a FWW or 4WW) Precautions/Special Considerations: Full code; bleeding precautions, therapeutic walk 3x daily, upwith assistance, monitor BP Subjective: ???I have had a lot of people come in and work with me today! I'm amazed that I was ableto walk around the hold floor.?? Objective: Pt seen for PT today to address goals. Pain: Tolerable increasing with gait. Vital Signs: WNL Mental Status: alert, oriented to person, place, and time, pleasant, cooperative Bed Mobility: Not tested today. Transfers: Sit><Stand to and from a FWW, supervision/contact guard assist of 1, VC for technique. Gait: Distance: ~150ft Device used: rolling walker Level of assist: contact guard Gait pattern: Steady slow step through. Pt. to utilize rolling walker and contact guard for ambulation with nursing. Balance: Sitting: Good Standing: Fair+ with FWW Education: patient have been educated on Bed mobility, Transfers, Assistive device/technique, Stairs, Exercise, Safety , Precautions/protocol, Gait , Activity pacing/Energy conservation, Role of therapy, Balance and Discharge planning and verbalizes understanding. Patient status, treatment, and mobility recommendations discussed with nursing. Assessment: Pt was pleasant and willing to participate in PT this morning. Pt demonstrated increase tolerance to functional mobility transfers and gait activities. The pt would benefit from skilled therapy services to maximize functional independence while in the hospital and to address limitations asnoted above. Goals: To be achieved by 03/28/15. 1. Pt. to demonstrate knowledge of precautions and weight bearing limitations during functional activities. 2. Pt. to demonstrate understanding of appropriate exercises. 3. Pt. to perform bed mobility independently. 4. Pt. to perform sit<>stand transfers independently with LRD. 5. Pt. to ambulate household distances; with LRD independently. 6. Family or caregiver to demonstrate understanding of therapeutic interventions to support the careof the patient. Plan: Pt to be seen 2-4 times per week for therapy including Bed mobility, Transfers, Assistive device/technique, Exercise, Safety , Precautions/protocol, Gait , Activity pacing/Energy conservation, Role of therapy, Balance and Discharge planning. Patient agrees with plan as stated above. Equipment needs: TBD closer to d/c; potentially FWW Discharge Recommendations: Rehab vs home with services pending pt progress while hospitalized. No other consults recommended at this time Total time spent with patient: 20 minutes Total timed interventions: 15 minutes ALANA CHEN PTA 03/22/2015 Pager: [phone] Physical Therapy Rehabilitation Department Rashi Barron MD - 03/22/2015 12:25 PM EDT Vascular Surgery Resident Inpatient Progress Note ID: Chan Perry is a 64 y.o. female with PMHx significant for DM, HTN, HLD with bilateral lowerextremity claudication that has now transitioned to CLI (rest pain) of the LLE. ABIs are diminished bilaterally. DSE with focal reversible ischemia. Now POD 4 s/p Left SFA-peroneal bypass with lateral f ibulectomy and peroneal vein interposition graft. 24hr events: ?? No issues overnight, AVSS ?? Received 1 U blood without incident ?? Re-started on heparin drip this am ?? Warfarin re-dosed to 3 mg to be given this pm ?? Continues to report improvement in LLE rest pain Subjective: no complaints this AM, denies nausea/vomit/chest pain/shortness of breath O: Last value Range last 24hrs Temperature Temp: 36.8 ??C (98.2 ??F) Temp: [36.7 ??C (98.1 ??F)-37.1 ??C (98.8 ??F)] Heart Rate Heart Rate: 84 Heart Rate: [79-91] Blood Pressure BP: 122/60 mmHg BP: (108-134)/(55-89) Respiratory Rate Resp: 16 Resp: [14-17] SpO2 SpO2: 100 % SpO2: [93 %-100 %] 03/21 0701 - 03/22 0700 In: 740 [P.O.:390] Out: 950 [Urine:950] Physical Exam: General: NAD, resting comfortably, pleasant, conversant HEENT: PERRL CVS: RRR Pulm: CTAB Abd: soft, nontender, non-distended. Incisions c/d/i Skin: warm, dry Ext: no c/c/e, cap refill <2sec. Incisions c/d/i. Palpable graft pulse over lateral left knee, bihasic DP/PT signals Neuro: CN 2-12 grossly intact, nonfocal, moving all four extremities spontaneously Recent Labs 03/22/15 0956 03/22/15 0338 03/21/15 0601 03/20/15 2352 03/20/15 1801 03/20/15 1146 03/20/15 0602 WBC 7.5 7.9 8.9 -- -- -- 11.7* HGB 9.4* 9.0* 7.6* -- -- -- 8.7* HCT 27.8* 26.2* 22.3* -- -- -- 25.1* PLATELET 183 176 144* -- -- -- 166 PT -- 20.0* 26.9* -- -- -- 23.9* INR -- 1.6* 2.4* -- -- -- 2.1* PTT 46* -- 95* 88* 94* 137* 90* Recent Labs 03/22/15 0338 03/21/15 0601 03/20/15 0602 NA 141 140 137 K 3.6 4.0 3.2* CL 102 104 100 CO2 28 24 23 BUN 8 5* 5* CREATININE 0.42* 0.41* 0.42* GLUCOSE 158 173 178 CALCIUM 7.7* 7.8* 7.9* NEW IMAGING: ?? SOSA legs: Interpretation: LEFT: No significant lower extremity arterial occlusive disease identified at rest at the calf level. Normal ankle/brachial pressure ratios and ankle Doppler waveforms. Toe-brachial index substantially lower than ankle-brachial index indicates presence of moderately severe arterial occlusive disease in the distal calf and foot. Improved from pre-operative exam done on 03/08/2015. Previous ABIs with change from previous value: Date RIGHT DP RIGHT PT RT GR TOE LEFT DP LEFT PT LT GR TOE 0.49 0.52 0.25 0.32 0.24 0.12 Current ---- ---- ---- 1.09(+.77) 1.01(+.77) 0.34(+.22) ASSESSMENT: Chan Perry is a 64 y.o. female with PMHx significant for DM, HTN, HLD with bilateral lower extremity claudication that has now transitioned to CLI (rest pain) of the LLE. ABIs are diminished bilaterally. DSE with focal reversible ischemia. Now POD 3 s/p Left SFA-peroneal bypass with lateral fibulectomy and peroneal vein interposition graft. Doing well, reports adequate pain control, rest pain resolved. Tolerating a regular diet. Incisions c/d/i, no drainage or erythema. Palpable graft pulse over lateral left knee, bihasic DP/PT signals. Hb responded to 9.0 from 7.6 after 1 U blood. Currently 9.4. UOP 950 cc. INR 1.6 PLAN: - tylenol/Oxycodone - Carb controlled diet - Weight-based heparin drip re-started, no initial bolus - Redose Coumadin at 3 mg, to be started this pm - OOB, ambulate - PT/OT evaluation - Possible discharge tomorrow Please page with any questions Rashi Farfan P: [phone] Elizabeth Harris RN - 03/21/2015 5:24 PM EDT Office of Care Management/Initial Assessment Compound Machine Operator Elizabeth Harris RN, pager [phone] Patient: Chan Perry : 1950 (64 y.o.) Home: [place] [id number]* LOS: 3 days Care reviewed and at interdisciplinary discharge rounds. Reviewed record and interviewed patient. Introduced CM role and services accepted. Patient Active Problem List Diagnosis Code ??? Claudication 443.9 ??? Non-healing ulcer of foot 707.15 ??? DMII (diabetes mellitus, type 2) 250.00 ??? Hypercholesterolemia 272.0 ??? Hypertension 401.9 ??? PAD (peripheral artery disease) 443.9 ?? Social/Family situation: lives with significant other Jaime in [place], [place]. History Social History Narrative Lives with significant other [place] style home Extended Emergency Contact Information Primary Emergency Contact: Maria Fernanda Saini Relation: Sibling Secondary Emergency Contact: Jaime Pulliam Relation: Friend ?? Code status: Full Code Advance directives: <no information> None in E-dh. ?? Insurance coverage: [employer]. Admission status: IPI; pt adm bilateral lower extremity claudication that has transitioned to CLI (rest pain) of the LLE. ABIs are diminished bilaterally. DSE with focal reversible ischemia. Now POD 3 s/p Left SFA-peroneal bypass with lateral fibulectomy and peroneal vein interposition graft. ? Last [facility] [place] date: no previous [facility] admissions. ?? Anticipated barriers to discharge: none. ?? Financial concerns: no concerns shared w/ this CM. ?? Identified patient/family concerns r/t discharge: none. ?? Senior Construction Project Manager referral indicated: no. ?? 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 ?? Current home/community services/equipment: none. ?? Current functional status/mobility: PT/OT performed eval yesterday which was limited by chest pain w/ mobility; pt able to walk around nursing unit today w/ FWW w/ no increase in pain or chest pain.OT recommended 24/7 supervision and significant other said he could take some time off to make sure pt was okay at home. ?? Anticipated discharge date: 03/23/2015. ?? Anticipated discharge place: home w/ services. ?? Home health agency: reviewed list of agencies that provide services to pt's home area and pt requested referral to [facility]. RN/PT/OT orders pended. ?? Transportation at discharge: s.o. Jaime will transport pt home. ?? Family involved in discharge planning: yes. ?? PCP: MIRANDA CARDENAS APRN (General), Future Appointments Date Time Provider Department Center 03/25/2015 12:40 PM Michael Luong PA [facility] Plan: Care Management will continue to monitor progress, follow for continuity of care, and assist with discharge planning. Elizabeth Harris RN, MSN Compound Machine OperatorDog Barber of Care Management Pager [phone] Phone: [phone] Primo Fagan - 03/21/2015 1:09 PM EDT Kennel Helper Encounter Note Patient Name: Chan Perry : [id number] MR#: [id number] Admit Date: 03/18/2015 9:57 AM Hospital Day 3 days Narrative: Visited to introduce and assess acceptance of Kennel Helper services. Pt was awake, alert, oriented and in chair and says that she is feeling better and pt is living with significant. Pt is working three days a week and was Happy to tell that she has worked there for 21 years. Assessment:Patient coping positively with stresses of illness/hospitalization at this time.Pt seemedcoping well and hoping to get better and go home. Pt has purpose of life to be with family and missing her cat and expressed gratitude for family support. Intervention and Outcome:Kennel Helper services accepted.Conversation to build trusting relationship.Provided prayer.Provided pastoral presence.Provided spiritual guidance. Follow-up: yes Time in Direct Care:15 Mins Primo Fagan 03/21/2015 Jonelle Boswell PT - 03/21/2015 10:39 AM EDT Physical Therapy Progress Note PT consult received, chart reviewed and spoke with RN. RN recommending deferring PT at this time dueto pt experiencing chest pain while ambulating short distances or transferring OOB. Pt due to receive blood transfusion soon. Will follow up with pt and initiate evaluation when appropriate. Jonelle Boswell PT, DPT Pager: [phone] Physical Therapy Rehabilitation Department Peter Sorensen MD - 03/21/2015 9:21 AM EDT Vascular Surgery Resident Inpatient Progress Note ID: Chan Perry is a 64 y.o. female with PMHx significant for DM, HTN, HLD with bilateral lowerextremity claudication that has now transitioned to CLI (rest pain) of the LLE. ABIs are diminished bilaterally. DSE with focal reversible ischemia. Now POD 3 s/p Left SFA-peroneal bypass with lateral f ibulectomy and peroneal vein interposition graft. 24hr events: ?? No issues overnight, AVSS ?? Transitioned to therapeutic heparin gtt. Hb down to 7.6 (8.4) ?? Continue to report improvement in LLE rest pain ?? Kept on heparin gtt over the day, INR redosed Subjective: no complaints this AM, denies nausea/vomit/chest pain/shortness of breath O: Last value Range last 24hrs Temperature Temp: 36.7 ??C (98.1 ??F) Temp: [36.7 ??C (98.1 ??F)-37 ??C (98.6 ??F)] Heart Rate Heart Rate: 87 Heart Rate: [83-97] Blood Pressure BP: 133/79 mmHg BP: (120-141)/(56-79) Respiratory Rate Resp: 16 Resp: [16-17] SpO2 SpO2: 100 % SpO2: [94 %-100 %] 03/20 0701 - 03/21 0700 In: 1580 [P.O.:960; I.V.:620] Out: 1200 [Urine:1200] Physical Exam: General: NAD, resting comfortably, pleasant, conversant HEENT: PERRL CVS: RRR Pulm: CTAB Abd: soft, nontender, non-distended. Incisions c/d/i Skin: warm, dry Ext: no c/c/e, cap refill <2sec. Incisions c/d/i. Palpable graft pulse over lateral left knee, bihasic DP/PT signals Neuro: CN 2-12 grossly intact, nonfocal, moving all four extremities spontaneously Recent Labs 03/21/15 0601 03/20/15 2352 03/20/15 1801 03/20/15 1146 03/20/15 0602 03/19/15 0905 03/19/15 0235 03/18/15 2310 03/18/15 1942 WBC 8.9 -- -- -- 11.7* -- -- 14.5* 14.2* 10.7* HGB 7.6* -- -- -- 8.7* -- -- 10.4* 10.3* 9.6* HCT 22.3* -- -- -- 25.1* -- -- 30.5* 29.6* 27.5* PLATELET 144* -- -- -- 166 -- -- 187 191 178 PT 26.9* -- -- -- 23.9* -- 15.2* -- -- -- INR 2.4* -- -- -- 2.1* -- 1.2* -- -- -- PTT 95* 88* 94* 137* 90* < > 43* 41* -- 31 < > = values in this interval not displayed. Recent Labs 03/21/15 0601 03/20/15 0602 03/19/15 0905 NA 140 137 141 K 4.0 3.2* 3.4* CL 104 100 106 CO2 24 23 26 BUN 5* 5* 6* CREATININE 0.41* 0.42* 0.50* GLUCOSE 173 178 160 CALCIUM 7.8* 7.9* 7.5* NEW IMAGING: ?? None ASSESSMENT: Chan Perry is a 64 y.o. female with PMHx significant for DM, HTN, HLD with bilateral lower extremity claudication that has now transitioned to CLI (rest pain) of the LLE. ABIs are diminished bilaterally. DSE with focal reversible ischemia. Now POD 3 s/p Left SFA-peroneal bypass with lateral fibulectomy and peroneal vein interposition graft. Doing well, reports adequate pain control, rest pain resolved. Tolerating a regular diet. Incisions c/d/i, no drainage or erythema. Palpable graft pulse over lateral left knee, bihasic DP/PT signals. Hb down to 7.6 (8.4). UOP 1.2L. INR 2.4 PLAN: - tylenol/Oxycodone - Carb controlled diet - Stop Heparin gtt - Redose Coumadin at 1 mg - ABIs today - OOB, ambulate - PT/OT evaluation - Possible discharge in AM Peter Kwon MD General Surgery, PGY2 Peter Astudillo MD - 03/20/2015 11:39 AM EDT Vascular Surgery Resident Inpatient Progress Note ID: Chan Perry is a 64 y.o. female with PMHx significant for DM, HTN, HLD with bilateral lowerextremity claudication that has now transitioned to CLI (rest pain) of the LLE. ABIs are diminished bilaterally. DSE with focal reversible ischemia. Now POD 2 s/p Left SFA-peroneal bypass with lateral f ibulectomy and peroneal vein interposition graft. 24hr events: ?? No issues overnight, AVSS ?? Transitioned to therapeutic heparin gtt. Hb down to 8.4 (10) ?? Continue to report improvement in LLE rest pain Subjective: no complaints this AM, denies nausea/vomit/chest pain/shortness of breath O: Last value Range last 24hrs Temperature Temp: 37.2 ??C (99 ??F) Temp: [36.8 ??C (98.2 ??F)-37.8 ??C (100 ??F)] Heart Rate Heart Rate: 83 Heart Rate: [69-92] Blood Pressure BP: 140/67 mmHg BP: (130-152)/(50-67) Respiratory Rate Resp: 16 Resp: [16] SpO2 SpO2: 95 % SpO2: [95 %-99 %] 03/19 0701 - 03/20 0700 In: 1593 [P.O.:900; I.V.:693] Out: 900 [Urine:900] Physical Exam: General: NAD, resting comfortably, pleasant, conversant HEENT: PERRL CVS: RRR Pulm: CTAB Abd: soft, nontender, non-distended. Incisions c/d/i Skin: warm, dry Ext: no c/c/e, cap refill <2sec. Incisions c/d/i. Palpable graft pulse over lateral left knee, bihasic DP/PT signals Neuro: CN 2-12 grossly intact, nonfocal, moving all four extremities spontaneously Recent Labs 03/20/15 0602 03/19/15 2227 03/19/15 1444 03/19/15 0905 03/19/15 0235 03/18/15 2310 03/18/15 1942 WBC 11.7* -- -- -- 14.5* 14.2* 10.7* HGB 8.7* -- -- -- 10.4* 10.3* 9.6* HCT 25.1* -- -- -- 30.5* 29.6* 27.5* PLATELET 166 -- -- -- 187 191 178 PT 23.9* -- -- 15.2* -- -- -- INR 2.1* -- -- 1.2* -- -- -- PTT 90* 69* >160.0* 43* 41* -- 31 Recent Labs 03/20/15 0602 03/19/15 0905 NA 137 141 K 3.2* 3.4* CL 100 106 CO2 23 26 BUN 5* 6* CREATININE 0.42* 0.50* GLUCOSE 178 160 CALCIUM 7.9* 7.5* NEW IMAGING: ?? None ASSESSMENT: Chan Perry is a 64 y.o. female with PMHx significant for DM, HTN, HLD with bilateral lower extremity claudication that has now transitioned to CLI (rest pain) of the LLE. ABIs are diminished bilaterally. DSE with focal reversible ischemia. Now POD 2 s/p Left SFA-peroneal bypass with lateral fibulectomy and peroneal vein interposition graft. Doing well, reports adequate pain control, rest pain resolved. Tolerating a regular diet. Incisions c/d/i, no drainage or erythema. Palpable graft pulse over lateral left knee, bihasic DP/PT signals. Hb downtrended to 8.4 (10) although seems dilutional. UOP 1L. 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 female with PMHx significant for DM, HTN, HLD with bilateral lowerextremity claudication that has now transitioned to CLI (rest pain) of the LLE. ABIs are diminished bilaterally. DSE with focal reversible ischemia. Now POD 1 s/p Left SFA-peroneal bypass with lateral f ibulectomy and peroneal vein interposition graft. 24hr events: ?? No issues overnight, AVSS ?? Kept on low dose heparing gtt overnight with a stable AM Hb of 10.4 ?? Refers marked improvement in LLE rest pain Subjective: no complaints this AM, denies nausea/vomit/chest pain/shortness of breath O: Last value Range last 24hrs Temperature Temp: 36.9 ??C (98.4 ??F) Temp: [36.4 ??C (97.6 ??F)-37 ??C (98.6 ??F)] Heart Rate Heart Rate: 69 Heart Rate: [54-74] Blood Pressure BP: 132/52 mmHg BP: (110-139)/(49-88) Respiratory Rate Resp: 16 Resp: [12-20] SpO2 SpO2: 93 % SpO2: [93 %-100 %] 03/18 0701 - 03/19 0700 In: 4157 [I.V.:4157] Out: 1530 [Urine:1230] Physical Exam: General: NAD, resting comfortably, pleasant, conversant HEENT: PERRL CVS: RRR Pulm: CTAB Abd: soft, nontender, non-distended. Incision c/d/i Skin: warm, dry Ext: no c/c/e, cap refill <2sec. Incision c/d/i. Palpable graft pulse over lateral left knee, bihasic DP/PT signals Neuro: CN 2-12 grossly intact, nonfocal, moving all four extremities spontaneously Recent Labs 03/19/15 0903/19/15 0235 03/18/15 2310 03/18/15 1942 03/16/15 1200 WBC -- 14.5* 14.2* 10.7* 6.7 HGB -- 10.4* 10.3* 9.6* 14.0 HCT -- 30.5* 29.6* 27.5* 40.0 PLATELET -- 187 191 178 216 PTT 43* 41* -- 31 -- Recent Labs 03/19/15 0903/16/15 1200 NA 141 142 K 3.4* 4.1 CL 106 101 CO2 26 25 BUN 6* 8 CREATININE 0.50* 0.49* GLUCOSE 160 147 CALCIUM 7.5* 9.0 NEW IMAGING: ?? None ASSESSMENT: Chan Perry is a 64 y.o. female with PMHx significant for DM, HTN, HLD with bilateral lower extremity claudication that has now transitioned to CLI (rest pain) of the LLE. ABIs are diminished bilaterally. DSE with focal reversible ischemia. Now POD 1 s/p Left SFA-peroneal bypass with lateral fibulectomy and peroneal vein interposition graft. Doing well, reports adequate pain control, rest pain resolved. Tolerating a regular diet. Incisions c/d/i, Palpable graft pulse over lateral left knee, bihasic DP/PT signals. Hb stable at 10.3, excellent UOP. PLAN: - Carb controlled diet - Therapeutic heparin gtt - Keep oliva until increased mobility - OOB, ambulate - PT/OT evaluation Peter Kwon MD General Surgery, PGY2 Severo Madrigal RN - 03/19/2015 7:25 AM EDT Tele shift report. Pt HR maintained in 60-70. Rare PVC, 3 beat run. Pt in sinus rhythm. Pt denies chest pain and SOB. Will continue to monitor. Severo Madrigal RN - 03/19/2015 1:00 AM EDT Patient arrived to floor from PACU alert and oriented x 3. Patient states that pain is tolerable. Educated and discussed pain management with patient. Patient verbalizes understanding of pain control. Patient denies CP/SOB. See my assessment on flowsheet. Oriented patient to room, call aparicio is within reach. Will continue to monitor. Janeen Dumont MD - 03/19/2015 12:34 AM EDT VASCULAR SURGERY POST-OP NOTE Chan Perry is a 64 y.o. female s/p left SFA-peroneal bypass. SUBJECTIVE Patient reporting significant pain in leg. Drinking some water, no nausea or vomiting. Denies any difficulty breathing, no CP. OBJECTIVE Temp: [36.5 ??C (97.7 ??F)-37 ??C (98.6 ??F)] Heart Rate: [54-72] Resp: [12-20] BP: (110-132)/(49-88) SpO2: [99 %-100 %] I/O this shift: In: 957 [I.V.:957] Out: 660 [Urine:360; Blood:300] PHYSICAL EXAM GEN: NAD. Resting comfortably. CV: RRR, normal S1 S2 CHEST: Normal work of breathing, lungs clear b/l ABD: Soft, nontender EXTR: Dressings over medial and lateral aspect of LLE c/d/i, palpable pulsation over lateral aspect of knee, dopplerable DP + PT signals ASSESSMENT/PLAN 64 y.o. female s/p left SFA-peroneal bypass. Stable post-op. ?? 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 Post-op Hgb's stable at 9.6, 10.3 ?? Hemodynamically stable ?? Continue all post-op care ?? Full code Efrem Delgado RN - 03/18/2015 9:32 PM EDT 1935- Pt arrived in PACU, 6L simple mask applied, lungs CTA, Left leg dressing dry intact, pulses + via doppler, graft site palpable, will monitor documented in this encounter H&P Notes Anabella Hitchcock MD - 03/18/2015 12:38 PM EDT Vascular Surgery Preop H&P HPI: Ms. Chan Perry is a 64yo female with PMHx significant for DM, HTN, HLD and a history of BLE claudication who presented to clinic on 03/08/15 with new complaint of LLE rest pain in the last 3 months. There is no tissue loss. She denies CP, SOB, and recent coughs, colds, and fevers. She underwent angio on 03/16/15 which demonstrated: 1. Rt. femoral arterial access with fluoroscopic guidance 2. Aortogram 3. Left pelvic arteriogram 4. Second order selective catheterization of left common femoral artery 5. LLE arteriogram in bolus josé antonio fashion 6. RLE arteriogram in bolus josé antonio fashion 7. Mynx closure - Aortogram demonstrated patent aorta without evidence of aneurysmal or occlusive disease. Patent renal arteries bilaterally without evidence of aneurysmal or occlusive disease. The right common, internal, and external iliac arteries are patent without evidence of aneurysm or occlusive disease. The left common iliac artery demonstrates a single mild stenosis near the aortic bifurcation but otherwise appears widely patent. The left external iliac artery appears patent without evidence of aneurysm or occlusive disease. The left internal iliac artery appears to have a focal moderate stenosis near its origin and is otherwise patent without stenoses. - Pelvic arteriogram confirms the above findings of the left common, internal, and external iliac arteries. The focally stenotic areas near the origin of the left common iliac artery and the origin of the left internal iliac arteries are better demonstrated. - LLE arteriogram demonstrates patent [employer] and profunda. The SFA is occluded from its origin and reconstitutes distally from profunda collaterals. The distal SFA and popliteal arteries appear patent butdiffusely stenotic. The popliteal artery appears to occlude at its distal endpoint with no tibial vessels clearly demonstrated at their respective origins. The peroneal artery appears to reconstitute midway down the leg. The PT appears to reconstitute near the ankle. The AT appears occluded throughoutits entire course. - RLE arteriogram demonstrates patent [employer] and profunda. The SFA appears occluded from its origin andappears to reconstitute in the mid thigh. The distal SFA appears diffusely stenotic. The popliteal artery appears patent without significant aneurysmal or occlusive disease. The AT appears to occlude shortly distal from its origin and reconstitute near the ankle. The TP trunk appears patent but severely stenotic. The PT artery is not seen. The peroneal appears patent throughout its course, supplying one vessel runoff to the foot. Review of Systems: Patient reported anginal symptoms in PAT; has been evaluated by cardiology with DSE which demonstrated basal inferior/inferoseptal infarction an dstress inducible ischemia in the apex and apical lateral wall. Per discussions between cardiology, anesthesia, and Dr. Doyle the decision has been made to proceed with surgery for her rest pain as planned. ROS otherwise negative. Patient Active Problem List Diagnosis ??? Claudication ??? Non-healing ulcer of foot ??? DMII (diabetes mellitus, type 2) ??? Hypercholesterolemia ??? Hypertension ??? PAD (peripheral artery disease) Past Medical History Diagnosis Date ??? HTN (hypertension) ??? DM (diabetes mellitus) metformin ??? Hypercholesterolemia ??? PVD (peripheral vascular disease) Past Surgical History Procedure Laterality Date ??? Skin graft Left left 2nd metacarpal Medications: Current Outpatient Prescriptions on File Prior to Encounter Medication Sig Dispense Refill ??? multivitamin (THERAGRAN) Tablet Take 1 tablet by mouth daily. ??? aspirin 81 mg Tablet, Delayed Release (E.C.) Take 1 tablet by mouth daily. 30 tablet 3 ??? metFORMIN (GLUCOPHAGE) 500 mg Tablet Take 500 mg by mouth 2 times daily (with meals). Takes 2 bid ??? simvastatin (ZOCOR) 20 mg Tablet Take 20 mg by mouth nightly. ??? lisinopril (PRINIVIL;ZESTRIL) 5 mg Tablet Take 5 mg by mouth daily. ??? ibuprofen (ADVIL;MOTRIN) 200 mg Tablet Take 400 mg by mouth every 6 hours as needed for Pain. ??? acetaminophen (TYLENOL) 325 mg Tablet Take 325 mg by mouth every 4 hours as needed for Pain. Allergies: Review of patient's allergies indicates no known allergies. Physical Exam: Filed Vitals: 03/18/15 1024 BP: 174/75 Pulse: 67 Temp: 36.7 ??C (98.1 ??F) TempSrc: Oral Resp: 16 SpO2: 100% General: alert, cooperative, no acute distress HEENT: normocephalic, atraumatic Neck: trachea midline CVS: regular rate, no murmurs rubs or gallops Pulm: clear to auscultation bilaterally Abd: soft, non tender, non distended Ext: RLE: No edema. Skin warm and pink. No tissue loss. Brisk capillary refill, palp fem pulse, pop non-palpable, DP/PT non-palpable LLE: No edema. Skin erythematous. No tissue loss. Palp femoral pulse, Non palp pop/DP/PT Neuro: no focal deficits, moving all extremities. Labs: Recent Results (from the past 72 hour(s)) POCT Glucose Result Value Ref Range POC Glucose 148 65 - 199 mg/dL EKG 12 Lead Result Value Ref Range Ventricular rate 78 BPM Atrial Rate 78 BPM P-R Interval 148 ms QRS Duration 84 ms Q-T Interval 366 ms QTC Calculated (Bezet) 417 ms Calculated P [place] 75 degrees Calculated R [place] 18 degrees Calculated T [place] 71 degrees INTERPRETATION Sinus rhythm with frequent Premature ventricular complexes in a pattern of bigeminy Nonspecific ST and T wave abnormality Abnormal ECG No previous ECGs available Confirmed by MD MCCLELLAN BRUCE ([id number]) on 03/16/2015 12:47:33 PM ABO/Rh Typing Result Value Ref Range ABORh Type A Neg Antibody screen Result Value Ref Range Ab Screen Interp Negative Expires at 2359 on: 03/21/2015 Basic Metabolic Panel (non-fasting) Result Value Ref Range Glucose Lvl 147 65 - 199 mg/dL BUN 8 8 - 18 mg/dL Creatinine 0.49 (L) 0.70 - 1.20 mg/dL Sodium 142 135 - 145 mmol/L Potassium 4.1 3.5 - 5.0 mmol/L Chloride 101 98 - 107 mmol/L CO2 25 22 - 31 mmol/L Anion Gap 16 (H) 5 - 15 mmol/L Calcium 9.0 8.5 - 10.5 mg/dL Estimated GFR >60 >=60 Hemogram Result Value Ref Range WBC 6.7 4.0 - 10.0 x10(3)/mcL RBC 4.31 3.93 - 5.22 x10(6)/mcL Hemoglobin 14.0 11.2 - 15.7 gm/dL Hematocrit 40.0 34.0 - 45.0 % MCV 92.8 79.0 - 94.0 fL MCH 32.5 (H) 26.6 - 32.2 pg MCHC 35.0 32.0 - 36.5 gm/dL Platelets 216 145 - 370 x10(3)/mcL RDWSD 45.8 35.0 - 46.0 fL RDWCV 13.5 10.9 - 14.4 % MPV 11.8 9.0 - 12.0 fL Differential, Automated Result Value Ref Range Neutrophils % 71.9 % Neutr Abs (ANC) 4.81 1.50 - 6.30 x10(3)/mcL Lymphocytes % 20.4 % Lymphocytes Abs 1.4 1.0 - 3.6 x10(3)/mcL Monocytes % 7.0 % Monocyte Abs 0.5 0.2 - 1.0 x10(3)/mcL Eosinophils % 0.4 % Eosinophils Abs 0.0 0.0 - 0.5 x10(3)/mcL Basophils % 0.3 % Basophils Abs 0.0 0.0 - 0.2 x10(3)/mcL Immature Gran % 0.00 % Rosenda Gran Abs 0.00 0.00 - 0.05 x10(3)/mcL Urinalysis without microscopic Result Value Ref Range Glucose UA Negative Negative mg/dL Protein UA Negative Negative mg/dL Bilirubin UA Negative Negative mg/dL Urobilinogen UA Normal Normal mg/dL pH UA 7.0 5.0 - 8.0 Blood UA Negative Negative mg/dL Ketones UA 20 (A) Negative mg/dL Nitrite UA Negative Negative Leukocytes UA Negative Negative mcL Appearance UA Clear Clear Spec Farber UA 1.029 1.002 - 1.030 Color UA Straw Yellow Echo pharm stress test (DSE) Result Value Ref Range EF 65 CXR: FINDINGS: The lungs are clear. Cardial mediastinal silhouette and avel appear normal. No pleural effusion or significant bone abnormality is seen. IMPRESSION: No significant abnormality. Imaging: SOSA 03/08/15 Findings: Right Pressure (mm Hg) SOSA Waveform TBI Brachial Artery 189 Common Femoral Artery Triphasic Pop Fossa Monophasic Dorsalis Pedis (Ankle) Artery 92 0.49 Monophasic Posterior Tibial (Ankle) Artery 99 0.52 Monophasic Great Toe 48 0.25 Left Pressure (mm Hg) SOSA Waveform TBI Brachial Artery 186 Common Femoral Artery Triphasic Pop Fossa Monophasic Dorsalis Pedis (Ankle) Artery 60 0.32 Monophasic Posterior Tibial (Ankle) Artery 45 0.24 Monophasic Great Toe 23 0.12 Interpretation: RIGHT: Moderately severe lower extremity arterial occlusive disease. LEFT: Severe lower extremity arterial occlusive disease. LLE vein map 03/08/15 Findings: Left Diameter (mm) GSV, Near SFJ 4.9 GSV, Proximal Thigh 2.9 GSV, Mid Thigh 0.8 GSV, Distal Thigh 0.5 GSV, Mid Calf 2.1 GSV, Distal Calf 2.6 GSV, Ankle 2.9 Interpretation: LEFT: Patent great saphenous vein with no evidence of thrombus where identified/visualized. The great saphenous vein was not identified from very distal thigh to mid calf and is extremely small mid to distal thigh. There is a more lateral, larger superficial vein starting just below the sapheno-femoral junction in the upper thigh that exits the fascia just below mid thigh and can be followed to near mid calf where it re-enters the fascia to the ankle. This vein has the following vein diameters: proximal thigh 3.6 mm, mid thigh 3.8 mm, distal thigh 3.6 mm, knee 3.2 mm and proximal calf 2.7 mm. This vein was marked. The GSV was marked with a dotted line for segment mid calf due to marginal vein diameter. DSE 03/16/15: SUMMARY: 1. BASELINE: The left ventricle is probably normal in size. There is normal global left ventricular systolic function. The visually estimated left ventricular ejection fraction is 65%. The basal inferoseptal wall segment is akinetic (score 3). The basal inferior wall segment is hypokinetic (score 2). R ight ventricular chamber size, wall thickness, and systolic function are within normal limits. The estimated pulmonary artery systolic pressure is 25 mmHg. Focal aortic leaflet calcification is visualized. There is no evidence of aortic valve stenosis. There is no evidence of aortic regurgitation. Themitral valve leaflets are mildly thickened. There is mild to moderate (1-2+/4+) mitral regurgitationpresent. EKG: normal sinus rhythm, premature ventricular contractions noted. 2. DOBUTAMINE STRESS: The patient achieved a maximum heart rate of 144 (85% of predicted maximum). The patient did not express feelings of chest discomfort. The patient felt nauseous and light-headed. There were frequent ventricular premature beats. There were 1.[address] segment depression in the lead V2 and [address] elevations in inferolateral leads. 3. CONCLUSION: Evidence for basal inferior/inferoseptal infarction and stress inducible ischemia in the apex and apical lateral wall (with technically difficult imaging). Assessment and Plan: Ms. Chan Perry is a 64yo female with PMHx significant for DM, HTN, HLD with bilateral lower extremity claudication that has now transitioned to CLI (rest pain) of the LLE. ABIs are diminished bilaterally. DSE with focal reversible ischemia; following discussion with anesthesia, cardiology and Dr. Doyle, the patient elects to proceed with surgical treatment of her rest pain with close periprocedural cardiac monitoring. - Plan for left fem-Peroneal bypass (medial vs lateral approach pending extent of acceptable vein conduit on harvest. documented in this encounter Miscellaneous Notes Plan of Care - Severo Madrigal RN - 03/24/2015 1:08 AM EDT Problem: General Plan of Care Goal: Plan of Care Review Outcome: Ongoing (Interventions Implemented as Appropriate) 03/24/15 0102 Plan of Care Review Plan of Care Outcome Status ongoing (interventions implemented as appropriate) Progress progress toward functional goals as expected Coping/Psychosocial Response Interventions Plan of Care Reviewed with patient OUTCOME EVALUATION NOTE: OUTCOME SUMMARY: Heparin drip continued at therapeutic rate, PTT will be checked with am labs. Pt moves well, up to bathroom with standby/1 assist and walker. Dressing has small amount of drainage on top medial dressing, marked by day shift and new marking for new drainage overnight. Otherwise pt slept without difficulty. Pain controlled by 500mg tylenol and 5mg oxycodone q4. Tele shift report. Pt stated in Sinus Rhythm 65-100 with rare PVCs. Pt denies cp/sob. VSS. Will continue to monitor. PLAN MOVING FORWARD: -Pain Control -Mobilize INDIVIDUALIZED FALL PREVENTION: Assistance: Standby/1 assist with walker Supervision: Hands on for all transfers and mobilizations Surveillance: -masimo -team care -purposeful rounding -nurse knowledge exchange at the bedside -Telemetry CPG OUTCOME EVALUATION: Goal: Individualization and Mutuality Outcome: Ongoing (Interventions Implemented as Appropriate) 03/23/15 3337 Individualization Individualize the Plan of Care: adequate pain control, increase mobilization, RBOS to promote BM Patient Specific Preferences pt taking scheduled Tylenol 500 mg for pain. Patient Specific Goals pt will increase activity and mobilization to promote BM Mutuality/Individual Preferences What anxieties, fears or concerns do you have about your health or care? concerned about no BM in 6 days What questions do you have about your health or care? none What information would help us give you more personalized care? none Goal: Fall Prevention-Safe Patient Handling Outcome: Ongoing (Interventions Implemented as Appropriate) 03/23/15 1913 Safety Interventions Safety Precautions/Fall Reduction assistive device;commode/urinal/bedpan at bedside;environmental modification;fall reduction program maintained;lighting adjusted for task/safety;low bed;nonskid shoes/slippers when out of bed Musculoskeletal Interventions Activity/Level of Assistance up in room;ambulated;with walker;with 1-person assist Positioning independent Muscle Strengthening activity/mobility promoted;mobility in bed promoted;personal routines for BADL/IADL promoted Self-Care Promotion independence encouraged while providing assistance;adaptive equipment provided Andino Fall Risk History of Falling 0 Secondary Diagnosis 15 Ambulatory Aids 15 Intravenous Therapy/Heparin/Saline Lock 20 Gait/Transferring 10 Mental Status 0 Score 60 Activity and Safety Assistive Device Front wheel walker OTHER Andino Fall Risk High Goal: Infection Control Outcome: Ongoing (Interventions Implemented as Appropriate) 03/23/15 191 Safety Interventions Isolation Precautions standard precautions maintained Infection Prevention rest/sleep promoted;promote handwashing;nutrition promoted;hydration promoted;environmental surveillance;bronchial hygiene promoted;blood glucose management Coping/Psychosocial Response Interventions Counseling verbalization of feelings encouraged;understanding of situation facilitated;problem solving facilitated;personal strengths integrated;reassurance provided;calming techniques promoted;emotional support provided;goal setting facilitated Goal: Discharge Needs Assessment Outcome: Ongoing (Interventions Implemented as Appropriate) 03/23/15436 Discharge Needs Assessment Concerns to be Addressed no discharge needs identified Readmission Within the Last 30 Days no previous admission in last 30 days Equipment Needed After Discharge walker, rolling Current Health Anticipated Changes Related to Illness none Self-Care Equipment Currently Used at Home none Living Environment Transportation Available family or friend will provide Problem: Pain, Acute (Adult, Obstetrics) Goal: Identify Signs and Symptoms and Related Risk Factors Signs and symptoms and related risk factors are identified upon initiation of Human Response Clinical Practice Guideline (CPG) Outcome: Ongoing (Interventions Implemented as Appropriate) 03/23/15436 Pain, Acute Related Risk Factors (Acute Pain) stress;surgery Signs and Symptoms (Acute Pain) fatigue/weakness Goal: Acceptable Pain Control/Comfort Level Patient will demonstrate the desired outcomes. Outcome: Ongoing (Interventions Implemented as Appropriate) 03/24/15 0102 Pain, Acute (Adult, Obstetrics) Acceptable Pain Control/Comfort Level making progress toward outcome Plan of Care - Crystal Harris RN - 03/23/2015 6:07 PM EDT Problem: General Plan of Care Goal: Plan of Care Review Outcome: Ongoing (Interventions Implemented as Appropriate) 03/23/1543616/15 0847 Plan of Care Review Plan of Care Outcome Status ongoing (interventions implemented as appropriate) -- Progress progress toward functional goals as expected -- Coping/Psychosocial Response Interventions Plan of Care Reviewed with -- patient OUTCOME EVALUATION NOTE: OUTCOME SUMMARY: Pt having a decent day, ambulating around unit with 1 x assist and walker, working with PT. Groin site with moderate amount of drainage to upper groin dressing, MD Chapo keyes and at pt's bedside to replace dressing, otherwise L leg dressing c/d/i. L side of thigh with moderate amount of ecchymosis,doppler pulses to left foot and femoral, palpable pulse +2 to popliteal. Pt cont t be on heparin drip, going at 1050 units/hr, PTT draws 2x during day, both within therapeutic range (90,83), per protocol pt will now require Q 24 hr blood draw with am labs. Pt voiding adequate amounts of urine in BR and BSC, at 1830 pt with large formed BM. VSS, on RA. Denying pain, taking scheduled tylenol. Tolerating PO's, appetite diminished but pt still eating a bit. Pt's sister at bedside for majority of afternoon. Will continue to monitor. Tele Note: Pt appears to be resting comfortably in bed, denying chest pain & SOB. Tele strip shows no events. HR 75-100. See tele strip in chart. Will continue to monitor. PLAN MOVING FORWARD: Monitor PTT, maintain bleeding precations, monitor pulses/ dressing, pain control INDIVIDUALIZED FALL PREVENTION: Assistance: 1x assist with walker Supervision: Intermittent, pt making needs known Surveillance: Purposeful roundingjose alejandro, tele CPG GOAL OUTCOME EVALUATION: Goal: Individualization and Mutuality Outcome: Ongoing (Interventions Implemented as Appropriate) 03/23/157 Individualization Individualize the Plan of Care: adequate pain control, increase mobilization, RBOS to promote BM Patient Specific Preferences pt taking scheduled Tylenol 500 mg for pain. Patient Specific Goals pt will increase activity and mobilization to promote BM Mutuality/Individual Preferences What anxieties, fears or concerns do you have about your health or care? concerned about no BM in 6 days What questions do you have about your health or care? none What information would help us give you more personalized care? none Goal: Fall Prevention-Safe Patient Handling Outcome: Ongoing (Interventions Implemented as Appropriate) 03/23/1547 03/23/15 1158 Safety Interventions Safety Precautions/Fall Reduction assistive device;environmental modification;fall reduction programmaintained;lighting adjusted for task/safety;low bed;nonskid shoes/slippers when out of bed;room near unit station -- Musculoskeletal Interventions Activity/Level of Assistance -- up in zaman;with walker;with 1-person assist Positioning HOB up 30-45 degrees;LLE elevated -- Muscle Strengthening activity/mobility promoted -- Self-Care Promotion adaptive equipment provided -- Andino Fall Risk History of Falling 0 -- Secondary Diagnosis 15 -- Ambulatory Aids 15 -- Intravenous Therapy/Heparin/Saline Lock 20 -- Gait/Transferring 10 -- Mental Status 0 -- Score 60 -- Activity and Safety Assistive Device -- Front wheel walker OTHER Andino Fall Risk High -- Goal: Infection Control Outcome: Ongoing (Interventions Implemented as Appropriate) 03/23/15846 Safety Interventions Isolation Precautions standard precautions maintained Infection Prevention rest/sleep promoted;blood glucose management;environmental surveillance;hydration promoted;nutrition promoted;promote handwashing Coping/Psychosocial Response Interventions Counseling calming techniques promoted;emotional support provided Goal: Discharge Needs Assessment 03/23/15436 Discharge Needs Assessment Concerns to be Addressed no discharge needs identified Readmission Within the Last 30 Days no previous admission in last 30 days Equipment Needed After Discharge walker, rolling Current Health Anticipated Changes Related to Illness none Self-Care Equipment Currently Used at Home none Living Environment Transportation Available family or friend will provide Problem: Pain, Acute (Adult, Obstetrics) Goal: Identify Signs and Symptoms and Related Risk Factors Signs and symptoms and related risk factors are identified upon initiation of Human Response Clinical Practice Guideline (CPG) Outcome: Ongoing (Interventions Implemented as Appropriate) 03/23/15436 Pain, Acute Related Risk Factors (Acute Pain) stress;surgery Signs and Symptoms (Acute Pain) fatigue/weakness Goal: Acceptable Pain Control/Comfort Level Patient will demonstrate the desired outcomes. Outcome: Ongoing (Interventions Implemented as Appropriate) 03/23/15436 Pain, Acute (Adult, Obstetrics) Acceptable Pain Control/Comfort Level making progress toward outcome Plan of Care - Nereida Sihpman RN - 03/23/2015 4:46 AM EDT Problem: General Plan of Care Goal: Plan of Care Review Outcome: Ongoing (Interventions Implemented as Appropriate) 03/23/15436 Plan of Care Review Plan of Care Outcome Status ongoing (interventions implemented as appropriate) Progress progress toward functional goals as expected Coping/Psychosocial Response Interventions Plan of Care Reviewed with patient OUTCOME EVALUATION NOTE: OUTCOME SUMMARY: Pt stating pain level minimal in LLE. Taking scheduled Tylenol 500mg. Assisted OOB to BSC to void clear yellow urine. RBOs given to promote BM. LLE covered incision dry and intact. Left foot warm to touch 2+ DP. Taking PO fluids well. Vital signs stable. PLAN MOVING FORWARD: Increase mobilization and activity INDIVIDUALIZED FALL PREVENTION: Assistance: 1 stand by assist with walker Supervision: Assist with ADLs prn Surveillance: masimo monitoring, purposeful roundeing, telemetry CPG GOAL OUTCOME EVALUATION: Goal: Individualization and Mutuality Outcome: Ongoing (Interventions Implemented as Appropriate) 03/23/15436 Individualization Individualize the Plan of Care: adequate pain control, increase mobilization, RBOS to promote BM Patient Specific Preferences pt taking scheduled Tylenol 500 mg for pain. Patient Specific Goals pt will increase activity and mobilization to promote BM Mutuality/Individual Preferences What anxieties, fears or concerns do you have about your health or care? concerned about no BM in 6 days What questions do you have about your health or care? none What information would help us give you more personalized care? none Goal: Fall Prevention-Safe Patient Handling Outcome: Ongoing (Interventions Implemented as Appropriate) 03/23/15436 Safety Interventions Safety Precautions/Fall Reduction bed alarm;fall reduction program maintained;lighting adjusted for task/safety;nonskid shoes/slippers when out of bed Musculoskeletal Interventions Activity/Level of Assistance up in room Positioning HOB up 30-45 degrees Muscle Strengthening activity/mobility promoted Self-Care Promotion adaptive equipment provided;hygiene assistance provided;independence encouraged while providing assistance Goal: Infection Control Outcome: Ongoing (Interventions Implemented as Appropriate) 03/23/15436 Safety Interventions Isolation Precautions standard precautions maintained Infection Prevention blood glucose management Coping/Psychosocial Response Interventions Counseling emotional support provided;reassurance provided Goal: Discharge Needs Assessment Outcome: Ongoing (Interventions Implemented as Appropriate) 03/23/15436 Discharge Needs Assessment Concerns to be Addressed no discharge needs identified Readmission Within the Last 30 Days no previous admission in last 30 days Equipment Needed After Discharge walker, rolling Current Health Anticipated Changes Related to Illness none Self-Care Equipment Currently Used at Home none Living Environment Transportation Available family or friend will provide Problem: Pain, Acute (Adult, Obstetrics) Goal: Identify Signs and Symptoms and Related Risk Factors Signs and symptoms and related risk factors are identified upon initiation of Human Response Clinical Practice Guideline (CPG) Outcome: Ongoing (Interventions Implemented as Appropriate) 03/23/15 0437 Pain, Acute Related Risk Factors (Acute Pain) stress;surgery Signs and Symptoms (Acute Pain) fatigue/weakness Goal: Acceptable Pain Control/Comfort Level Patient will demonstrate the desired outcomes. Outcome: Ongoing (Interventions Implemented as Appropriate) 03/23/15 0437 Pain, Acute (Adult, Obstetrics) Acceptable Pain Control/Comfort Level making progress toward outcome Plan of Care - Radha Krishna RN - 03/22/2015 6:12 PM EDT Problem: General Plan of Care Goal: Plan of Care Review Outcome: Ongoing (Interventions Implemented as Appropriate) 03/22/15 0546 03/22/15 0947 Plan of Care Review Plan of Care Outcome Status ongoing (interventions implemented as appropriate) -- Progress progress toward functional goals as expected -- Coping/Psychosocial Response Interventions Plan of Care Reviewed with -- patient OUTCOME EVALUATION NOTE: OUTCOME SUMMARY: Pt alert and oriented, vss, and pain controlled with 5 mg Oxycodone. Pt up with sba and walker. Voiding without difficulty. Heparin gtt restarted and is currently running at 950 units/hr (19 ml/hr), ptt was 84 so no change was done. Next check at 2330. Dressing to leg c/d/i, pulses weak but palpable, audible with doppler. Pt tolerating carb control diet. PLAN MOVING FORWARD: Monitor PTT and pain, provide meds as needed INDIVIDUALIZED FALL PREVENTION: Assistance: Up with sba and walker Supervision: 1 assist with adl's Surveillance: Hourly rounding, tele, masimo TELE: Pt denies any SOB, CP, or Palpations. VSS. Tele note shows NSR and ST with HR 50-105. CPG GOAL OUTCOME EVALUATION: Goal: Individualization and Mutuality Outcome: Ongoing (Interventions Implemented as Appropriate) 03/19/15 1800 03/21/15 0732 Individualization Individualize the Plan of Care: -- explain things fully prior to changing anything Patient Specific Goals -- pain control, walk three times Mutuality/Individual Preferences What anxieties, fears or concerns do you have about your health or care? -- not recovering well What questions do you have about your health or care? none -- What information would help us give you more personalized care? none -- Goal: Fall Prevention-Safe Patient Handling Outcome: Ongoing (Interventions Implemented as Appropriate) 03/22/15 0947 Safety Interventions Safety Precautions/Fall Reduction bed alarm;lighting adjusted for task/safety;low bed;nonskid shoes/slippers when out of bed;room near unit station;supervised activity Musculoskeletal Interventions Activity/Level of Assistance up in room;with walker;with 1-person assist Positioning HOB up 30 degrees Muscle Strengthening activity/mobility promoted;mobility in bed promoted;strengthening exercises performed Self-Care Promotion adaptive equipment provided;assistance provided to decrease frustration;bathing assistance provided;dressing assistance provided;hygiene assistance provided;independence encouraged while providing assistance;toileting assistance provided Andino Fall Risk History of Falling 0 Secondary Diagnosis 15 Ambulatory Aids 15 Intravenous Therapy/Heparin/Saline Lock 20 Gait/Transferring 10 Mental Status 0 Score 60 Activity and Safety Assistive Device Front wheel walker OTHER Andino Fall Risk High Goal: Infection Control Outcome: Ongoing (Interventions Implemented as Appropriate) 03/22/15 0947 Safety Interventions Isolation Precautions standard precautions maintained Infection Prevention blood glucose management;bronchial hygiene promoted;environmental surveillance;hydration promoted;nutrition promoted;promote handwashing;rest/sleep promoted Coping/Psychosocial Response Interventions Counseling emotional support provided;goal setting facilitated Goal: Discharge Needs Assessment Outcome: Ongoing (Interventions Implemented as Appropriate) 03/19/15 1724 Discharge Needs Assessment Concerns to be Addressed no discharge needs identified Readmission Within the Last 30 Days no previous admission in last 30 days Equipment Needed After Discharge walker, rolling Current Health Anticipated Changes Related to Illness none Self-Care Equipment Currently Used at Home none Living Environment Transportation Available car;family or friend will provide Problem: Pain, Acute (Adult, Obstetrics) Goal: Identify Signs and Symptoms and Related Risk Factors Signs and symptoms and related risk factors are identified upon initiation of Human Response Clinical Practice Guideline (CPG) Outcome: Ongoing (Interventions Implemented as Appropriate) 03/20/15 0657 03/20/15 1735 Pain, Acute Related Risk Factors (Acute Pain) surgery -- Signs and Symptoms (Acute Pain) -- fatigue/weakness Goal: Acceptable Pain Control/Comfort Level Patient will demonstrate the desired outcomes. Outcome: Ongoing (Interventions Implemented as Appropriate) 03/20/15 1735 Pain, Acute (Adult, Obstetrics) Acceptable Pain Control/Comfort Level making progress toward outcome Plan of Care - Amita Anderson RN - 03/22/2015 5:46 AM EDT Problem: General Plan of Care Goal: Plan of Care Review 03/22/15 0546 Plan of Care Review Plan of Care Outcome Status ongoing (interventions implemented as appropriate) Progress progress toward functional goals as expected Coping/Psychosocial Response Interventions Plan of Care Reviewed with patient Goal: Individualization and Mutuality 03/19/15 1800 03/21/15 0732 Individualization Individualize the Plan of Care: -- explain things fully prior to changing anything Patient Specific Goals -- pain control, walk three times Mutuality/Individual Preferences What questions do you have about your health or care? none -- What information would help us give you more personalized care? none -- Goal: Fall Prevention-Safe Patient Handling 03/21/152002 Safety Interventions Safety Precautions/Fall Reduction assistive device;commode/urinal/bedpan at bedside;environmental modification;lighting adjusted for task/safety;low bed;mobility aid;nonskid shoes/slippers when out of bed;room near unit station Musculoskeletal Interventions Activity/Level of Assistance up in room;with walker;with stand by assist Positioning independent (in bed) Muscle Strengthening mobility in bed promoted;activity/mobility promoted Self-Care Promotion assistance provided to decrease frustration;hygiene assistance provided;independence encouraged while providing assistance;toileting assistance provided Andino Fall Risk History of Falling 0 Secondary Diagnosis 15 Ambulatory Aids 15 Intravenous Therapy/Heparin/Saline Lock 20 Gait/Transferring 10 Mental Status 0 Score 60 Activity and Safety Assistive Device Front wheel walker OTHER Andino Fall Risk High Goal: Infection Control 03/21/152002 Safety Interventions Isolation Precautions standard precautions maintained Infection Prevention blood glucose management;bronchial hygiene promoted;environmental surveillance;hydration promoted;nutrition promoted;promote handwashing;rest/sleep promoted Coping/Psychosocial Response Interventions Counseling reassurance provided;understanding of situation facilitated Comments: OUTCOME EVALUATION NOTE: OUTCOME SUMMARY: Chan slept well overnight with pain well controlled. Blood sugars covered as needed. Voiced concern over possibility of needing insulin at home, reassurance given. Voiding well on bedside commode with one assist. Dressing remains dry and intact. PLAN MOVING FORWARD: Maintain pain control and increase ambulation INDIVIDUALIZED FALL PREVENTION: Assistance: standby assist with front wheeled walker Supervision: set up for ADLs Surveillance: Bedside shift report, hourly rounding, masimo CPG GOAL OUTCOME EVALUATION: Plan of Care - Radha Krishna RN - 03/21/2015 4:14 PM EDT Problem: General Plan of Care Goal: Plan of Care Review Outcome: Ongoing (Interventions Implemented as Appropriate) 03/21/15 0732 03/21/15 0839 Plan of Care Review Plan of Care Outcome Status ongoing (interventions implemented as appropriate) -- Progress progress toward functional goals as expected -- Coping/Psychosocial Response Interventions Plan of Care Reviewed with -- patient OUTCOME EVALUATION NOTE: OUTCOME SUMMARY: Pt alert and oriented, vss, and pain controlled with 10 mg Oxycodone. Heparin gtt stopped this AM, 1unit of PRBC's infused. Pt reported chest pain early this AM EKG was done and pt reported that it had went away after being placed on O2 and resting. Pt also reported that sometimes she gets it from anxiety. Dressing to left leg has serosang drainage in groin and dry the rest of the leg. Pulses palpable, foot warm with no numbness or tingling. Pt voiding without any issues. Up ambulating with 1 assist and walker. TELE: Pt reports chest pain only with anxiety and says that it gets better on own. Denies SOB or palpations. Tele note shows Sinus Rhythm/ Tachycardia with the HR 70-105 and rare PVC's. PLAN MOVING FORWARD: Monitor drainage to groin, provide medications as needed INDIVIDUALIZED FALL PREVENTION: Assistance: Up with 1 assist and walker Supervision: 1 assist with adl's Surveillance: Hourly rounding and masimo CPG GOAL OUTCOME EVALUATION: Goal: Individualization and Mutuality Outcome: Ongoing (Interventions Implemented as Appropriate) 03/19/15 1800 03/21/15 0732 Individualization Individualize the Plan of Care: -- explain things fully prior to changing anything Patient Specific Goals -- pain control, walk three times Mutuality/Individual Preferences What anxieties, fears or concerns do you have about your health or care? -- not recovering well What questions do you have about your health or care? none -- What information would help us give you more personalized care? none -- Goal: Fall Prevention-Safe Patient Handling Outcome: Ongoing (Interventions Implemented as Appropriate) 03/21/15 0839 Safety Interventions Safety Precautions/Fall Reduction assistive device;environmental modification;fall reduction programmaintained;nonskid shoes/slippers when out of bed Musculoskeletal Interventions Activity/Level of Assistance up in room;with walker;with stand by assist Positioning independent Muscle Strengthening activity/mobility promoted Self-Care Promotion adaptive equipment provided;toileting assistance provided Andino Fall Risk History of Falling 0 Secondary Diagnosis 15 Ambulatory Aids 15 Intravenous Therapy/Heparin/Saline Lock 20 Gait/Transferring 10 Mental Status 0 Score 60 Activity and Safety Assistive Device Front wheel walker OTHER Andino Fall Risk High Goal: Infection Control Outcome: Ongoing (Interventions Implemented as Appropriate) 03/21/15 0839 Safety Interventions Isolation Precautions standard precautions maintained Infection Prevention blood glucose management;hydration promoted;nutrition promoted Coping/Psychosocial Response Interventions Counseling calming techniques promoted Goal: Discharge Needs Assessment Outcome: Ongoing (Interventions Implemented as Appropriate) 03/19/15 1724 Discharge Needs Assessment Concerns to be Addressed no discharge needs identified Readmission Within the Last 30 Days no previous admission in last 30 days Equipment Needed After Discharge walker, rolling Current Health Anticipated Changes Related to Illness none Self-Care Equipment Currently Used at Home none Living Environment Transportation Available car;family or friend will provide Problem: Pain, Acute (Adult, Obstetrics) Goal: Identify Signs and Symptoms and Related Risk Factors Signs and symptoms and related risk factors are identified upon initiation of Human Response Clinical Practice Guideline (CPG) Outcome: Ongoing (Interventions Implemented as Appropriate) 03/20/15 0657 03/20/15 1735 Pain, Acute Related Risk Factors (Acute Pain) surgery -- Signs and Symptoms (Acute Pain) -- fatigue/weakness Goal: Acceptable Pain Control/Comfort Level Patient will demonstrate the desired outcomes. Outcome: Ongoing (Interventions Implemented as Appropriate) 03/20/15 1735 Pain, Acute (Adult, Obstetrics) Acceptable Pain Control/Comfort Level making progress toward outcome Initial Assessments - Jonelle Boswell, PT - 03/21/2015 2:00 PM EDT Physical Therapy Evaluation Patient profile: Pt. is a 64 y.o. female with PMH significant for DM, HTN, HLD admitted on 03/18/2015by Glen Tracy MD for as per H&P bilateral lower extremity claudication that has now transitioned to CLI (rest pain) of the LLE. ABIs are diminished bilaterally. DSE with focal reversible ischemia. Now POD 3 s/p Left SFA-peroneal bypass with lateral fibulectomy and peroneal vein interposition graft. PT consulted 03/21/15. . PMH: Past Medical History Diagnosis Date ??? HTN (hypertension) ??? DM (diabetes mellitus) metformin ??? Hypercholesterolemia ??? PVD (peripheral vascular disease) Past Surgical History Procedure Laterality Date ??? Skin graft Left left 2nd metacarpal ??? Pro vein bypass graft, fem-tibial Left 03/18/2015 @[facility], FEM.-ANT. TIB, POST. TIB, PERONEAL, DP W\ [place] [id number]) performed by Glen Doyle MD at [facility] MAIN OR Social History: Patient [place] lives with her boyfriend on the main level of a ranch style home. Her boyfriend works FT as a box car checker. Stairs: Ramp to enter Baseline Mobility: Independent without an AD within her home. Pt stopped walking longer distances outdoors when she developed an ulcer on her left toe ~January. 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 Equipment at home: Walker (not sure if it is a FWW or 4WW) Precautions/Special Considerations: Full code; bleeding precautions, therapeutic walk 3x daily, upwith assistance, monitor BP Subjective: ???I think I can go to that desk and then go back to my room?? Objective: Pt seen for evaluation today in collaboration with OT Pain: 10/15 in LLE Vital Signs: Sp02: 97% HR: 100 BP: 120/68 supine, 120/78 sitting EOB, 89/51 and 151/67 standing Mental Status: alert, oriented to person, place, and time, pleasant, cooperative Musculoskeletal: ROM: WFL, slightly limited L ankle DF due to LLE edema Strength: WFL, globally deconditioned Sensation: Diminished to tiara LE Integumentary: Bruising to outer L thigh, incision along L inner thigh to lower leg, LLE edema in foot and ankle Bed Mobility: Supine to Sit: Modified independent, HOB slightly elevated Sit to Supine: Independent Transfers: Sit to Stand: CG to FWW. C/o of dizziness and wooziness upon standing. In standing: pt tried to adjust gown using tiara UE and began to lose balance posteriorly. Required Mary to regain balance. Stand to Sit: Supervision assist Gait: Distance: ~75ft Device used: rolling walker Level of assist: contact guard Gait pattern: Very slow gait speed initially with step-to gait pattern but progressed to faster pacewith partial step-through gait pattern. Steady. No c/o of chest pain, dizziness or need for rest break. No observable SOB. Pt. to utilize rolling walker and contact guard for ambulation with nursing. Balance: Sitting: Good with or without UE support Standing: Fair; requires UE support on FWW. One instance of LOB when not using either UE on walker. Informed Consent: The patient understands and agrees to the PT treatment plan and goals. Education: patient have been educated on Bed mobility, Transfers, Assistive device/technique, Stairs, Exercise, Safety , Precautions/protocol, Gait , Activity pacing/Energy conservation, Role of therapy, Balance and Discharge planning and verbalizes understanding. Patient status, treatment, and mobility recommendations discussed with nursing. Assessment: Pt is a 64 yo F POD#3 left SFA-peroneal bypass with lateral fibulectomy and peroneal vein interposition graft. Pt tolerated today???s evaluation fairly. Pt presents with pain, decreased global strength and endurance, and impaired dynamic balance which limits her functional mobility, activity tolerance and gait skills. Pt may have briefly experienced orthostatic hypotension upon standing, however symptoms passed quickly and BP recordings may have been inaccurate. Otherwise, vitals stable with minimal symptoms of dizziness or lightheadedness. The pt would benefit from skilled therapy services to maximize functional independence while in the hospital and to address limitations as noted above. Goals: To be achieved by 03/28/15. 1. Pt. to demonstrate knowledge of precautions and weight bearing limitations during functional activities. 2. Pt. to demonstrate understanding of appropriate exercises. 3. Pt. to perform bed mobility independently. 4. Pt. to perform sit<>stand transfers independently with LRD. 5. Pt. to ambulate household distances; with LRD independently. 6. Family or caregiver to demonstrate understanding of therapeutic interventions to support the careof the patient. Plan: Pt to be seen 2-4 times per week for therapy including Bed mobility, Transfers, Assistive device/technique, Exercise, Safety , Precautions/protocol, Gait , Activity pacing/Energy conservation, Role of therapy, Balance and Discharge planning. Patient agrees with plan as stated above. Equipment needs: TBD closer to d/c; potentially FWW Discharge Recommendations: Rehab vs home with services pending pt progress while hospitalized. No other consults recommended at this time Total time spent with patient: 53 minutes Total timed interventions: 0 minutes (initial evaluation) JONELLE BOSWELL PT 03/21/2015 Pager: [phone] Physical Therapy Rehabilitation Department Initial Assessments - Debi Kapoor, OT - 03/21/2015 1:47 PM EDT Occupational Therapy Evaluation Patient profile: Chan Perry is a 64 y.o. female patient of Glen Tracy MD, admitted on03/18/2015 with PMHx significant for DM, HTN, HLD and a history of BLE claudication who presented to clinic on 03/08/15 with new complaint of LLE rest pain in the last 3 months. There is no tissue loss. ABIs are diminished bilaterally. DSE with focal reversible ischemia OR on 03/18 for L SFA- peroneal bypass with lateral fibulectomy and peroneal vein interposition graft (per Dr. Kwon 03/21/15). Latest Hgb was 7.6; received blood transfusion on 03/21; currently on 3 . Past Medical History Diagnosis Date ??? HTN (hypertension) ??? DM (diabetes mellitus) metformin ??? Hypercholesterolemia ??? PVD (peripheral vascular disease) Past Surgical History Procedure Laterality Date ??? Skin graft Left left 2nd metacarpal ??? Pro vein bypass graft, fem-tibial Left 03/18/2015 @[facility], FEM.-ANT. TIB, POST. TIB, PERONEAL, DP W\ [place] [id number]) performed by Glen Doyle MD at [facility] MAIN OR Social History: Patient lives boyfriend in [facility] (near [place]) Home Setup: Ramp to enter 1 level home with basement (boyfriend will address all basement needs) during recovery, tub/shower DME: walker (borrowed from family) Baseline ADL/Mobility: Independent with ADL???s and IADL???s ?? Independent with activity prior to 1 month ago; walked outside prior to 1 month ago ?? 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 Boyfriend is juan f [place]; will not be home 28/01 Code Status: Full Code Activity Orders:therapeutic walk 3 times a day Precautions: carb control diet, bleeding Subjective: I am doing better now Objective: Seen today for OT evaluation. +Medial thigh extending to ankle wound dressing Vitals: HR 83 oxygen 94 Supine BP 120/68 Cognitive Status/Behavior: ?? alert, oriented to person, place, and time ?? Engaged and motivated ?? Follows 3 step commands ?? Reports some fogginess which is improving Communication: States basic and complex needs 100% of the time Vision & Perception: Bifocals Range of motion, strength, coordination: ?? Hand dominance: right ?? Bilateral UEs are within functional limitations for AROM ?? Roughly 4/5 throughout tiara UE ?? Coordination intact ?? Able to bear weight through tiara LE; guarding of LLE secondary to surgery ?? Notable L foot 4+ pitting edema Sensation: Grossly intact, denies neuropathy (mild sensory deficits to L foot secondary to pitting edema) Activities of Daily Living: Self-feeding: Independent Hygiene grooming: NT- currently requires set up for activities in sitting secondary to impaired endurance Upper and lower body dressing and bathing: ?? Min A with LLE dressing of sock secondary to pain and LLE limited ER; RLE mod I in sitting Toileting: Toilet Transfer: Simulated min A Toilet Hygiene: NT Functional Mobility: Supine to sit: Supervision from flat bed Sit to stand: Min A, BP taken supine 120/68, sitting 120/78, standing 89/51- second standing 151/67;with 1 posterior loss of balance Ambulation: Functional mobility with min A and walker 75 ft, chair follow secondary to symptomatic orthostatic hypotension Stand to sit: Min a Sit to supine: Supervision Balance: Sitting balance is good; standing balance is fair. IADL???s: Assistance available to patient. Endurance: Poor Information taken from last recorded vitals in flowsheet. Last value Range last 8 hrs Heart Rate Heart Rate: 81 Heart Rate: [78-97] Blood Pressure BP: 117/68 mmHg BP: (104-133)/(58-79) SpO2 SpO2: 96 % SpO2: [96 %-100 %] Pain: 3/10 in LLE Skin: Not assessed, see RN note secondary to multiple medial LLE thigh to ankle dressing Informed Consent: The patient agrees to and understands the OT treatment plan and goals. Education: patient educated on Role of occupational therapy/rehabilitation and Transfers, ADL, therex and verbalizes, demonstrates and needs reinforcement. understanding. Patient status, treatment, and mobility recommendations discussed with nursing. Assessment: Pt has been seen by OT for evaluation, and she presents with impaired ability to perform daily activities and functional mobility secondary to s/p OR on 03/18 for L SFA perioneal bypass with lateral fibulectomy and perioneal vein interposition graft. Pt tolerated bed mobility with supervision, min A for LLE dressing, min A with orthostatic hypotension supine to standing BP 120/68 dropped to 89/[address] anding, resolved within a few minutes; min A with walker 75 ft with chair follow. Pt would benefit from ongoing OT services to maximize functional independence. Recommendations: Equipment needs at discharge: TBA, shower chair ? commode Discharge Recommendations: Patient requires ongoing 24/7 supervision. Patient would benefit from skilled therapy interventions to promote functional independence and safety while improving activity tolerance. ?? Possible d/c to home with home therapies pending pt progress and estimated d/c date. Other Recommendations: ?? Encourage walking to bathroom with 1 assist ?? Set up for bathing in sitting Goals: To be achieved by 03/27/15 1. Pt will be mod I with ADLs in sitting 2. Pt will be mod I with tub transfer 3. Pt will be mod I with grooming in standing at sink 4. Pt will be mod I with toilet transfer 5. Pt will be mod I with light meal prep 6. Pt will participate in 15 mins of therapeutic activity to increase strength and endurance for ADls and transfers Plan: Pt to be seen 2-4 per week for therapy including Role of occupational therapy/rehabilitation, Transfers, Assistive device/technique, Adaptive equipment training, ADL, Exercise, Breathing exercises, Positioning, Safety, Precautions/Protocol, Functional Mobility, Activity pacing/Energy conservation, Recommendations, Family training and Discharge planning Eval Date: 03/21/2015 Total time spent with patient: 43 minutes coeval with PT Total timed interventions: 0 minutes Pager: [phone] DEBI KAPOOR OT 03/21/2015 Occupational Therapy Rehabilitation Department Plan of Care - Amita Anderson RN - 03/21/2015 7:34 AM EDT Problem: General Plan of Care Goal: Plan of Care Review 03/21/15731 Plan of Care Review Plan of Care Outcome Status ongoing (interventions implemented as appropriate) Progress progress toward functional goals as expected Coping/Psychosocial Response Interventions Plan of Care Reviewed with patient Goal: Individualization and Mutuality 03/21/15731 Individualization Individualize the Plan of Care: explain things fully prior to changing anything Patient Specific Goals pain control, walk three times Mutuality/Individual Preferences What anxieties, fears or concerns do you have about your health or care? not recovering well Goal: Fall Prevention-Safe Patient Handling 03/20/152033 Safety Interventions Safety Precautions/Fall Reduction assistive device;commode/urinal/bedpan at bedside;environmental modification;lighting adjusted for task/safety;low bed;mobility aid;nonskid shoes/slippers when out of bed;room near unit station Musculoskeletal Interventions Activity/Level of Assistance up in room;with walker;with stand by assist Positioning independent (in bed) Muscle Strengthening mobility in bed promoted Self-Care Promotion assistance provided to decrease frustration;independence encouraged while providing assistance Andino Fall Risk History of Falling 0 Secondary Diagnosis 15 Ambulatory Aids 15 Intravenous Therapy/Heparin/Saline Lock 20 Gait/Transferring 10 Mental Status 0 Score 60 Activity and Safety Assistive Device Front wheel walker OTHER Andino Fall Risk High Goal: Infection Control 03/20/152033 Safety Interventions Isolation Precautions standard precautions maintained Infection Prevention blood glucose management;bronchial hygiene promoted;environmental surveillance;hydration promoted;nutrition promoted;promote handwashing;rest/sleep promoted Coping/Psychosocial Response Interventions Counseling understanding of situation facilitated;verbalization of feelings encouraged Comments: OUTCOME EVALUATION NOTE: OUTCOME SUMMARY: Chan slept well overnight with pain controlled on oxycodone prn and scheduled Tylenol. Walked fairly well with stand by assist to bedside commode. Pulses to LLE palpable, leg warm with good cap refill. Heparin gtt unchanged overnight as PTT within range. Telemetry showed NSR/ST with some rare PVCs, pt asymptomatic . PLAN MOVING FORWARD: Encourage ambulation and weight bearing to LLE, control pain with increase in prn med if needed INDIVIDUALIZED FALL PREVENTION: Assistance: front wheeled walker with standby assist Supervision: set up for ADLs Surveillance: bedside shift report, hourly rounding, telemetry, charles CPG GOAL OUTCOME EVALUATION: Plan of Care - Olga Carlson RN - 03/20/2015 5:54 PM EDT Problem: General Plan of Care Goal: Plan of Care Review Outcome: Ongoing (Interventions Implemented as Appropriate) 03/20/15 0803 03/20/15 1735 Plan of Care Review Plan of Care Outcome Status -- ongoing (interventions implemented as appropriate) Progress -- progress toward functional goals as expected Coping/Psychosocial Response Interventions Plan of Care Reviewed with patient -- OUTCOME EVALUATION NOTE: OUTCOME SUMMARY: Patient ambulated 20 ft x1 and 50 ft x1 with nursing staff today. Patient verbalizes anxiety/fear about nausea/vomiting/diarrhea and has apparently being limiting PO intake due to this, patient medicated with PO Zofran x1. Patient's oliva d/c'd at 12:30, at 15:30 pt voided 50 cc dark pink urine with PVR of 78 cc, patient encouraged to increase PO fluid intake, at 17:30 pt voided 250 cc with PVR of 35cc. MD Farfan notified of pink colored urine as pt is on bleeding precautions due to heparin drip, per MD patient had pink urine output in the O.R. notified that pt's urine clear yellow in oliva bag prior to removal. Patient rates pain 6-7/10, NET WEB DEVELOPER d/c'd this AM and pt transitioned to Oxycodone, tolerating 5 mg without nausea. Tele Note Subjective: Pt did not exhibit shortness of breath and/or chest pain during shift Objective: Patient's vital signs are as follows: HR: 87, BP: 124/61, Temp: 36.8 C, SpO2:96% on RA, RR: 16 . Assessment: see telemetry strip per medicine tech--rare PVCs, HR 70 - 105 bpm Plan: Continue tele monitoring as per physician order PLAN MOVING FORWARD: Pain control Mobilize Encourage PO fluid intake INDIVIDUALIZED FALL PREVENTION: Assistance: 1-assist with FWW Supervision: Moderate assist with ADLs Surveillance: Purposeful rounding, Masimo, Telemetry, q 4 hr glucose checks CPG GOAL OUTCOME EVALUATION: Goal: Individualization and Mutuality Outcome: Ongoing (Interventions Implemented as Appropriate) 03/19/15 1724 03/19/15 1800 Individualization Patient Specific Goals pain control, mobilize -- Mutuality/Individual Preferences What anxieties, fears or concerns do you have about your health or care? -- Not being healthy What questions do you have about your health or care? -- none What information would help us give you more personalized care? -- none Goal: Fall Prevention-Safe Patient Handling Outcome: Ongoing (Interventions Implemented as Appropriate) 03/20/15 0803 03/20/15 1231 03/20/15 1715 Safety Interventions Safety Precautions/Fall Reduction assistive device;fall reduction program maintained;lighting adjusted for task/safety;low bed;nonskid shoes/slippers when out of bed -- -- Musculoskeletal Interventions Activity/Level of Assistance -- -- up in room;with walker;with 1-person assist Positioning -- with 1-person assist -- Muscle Strengthening -- -- -- Self-Care Promotion independence encouraged while providing assistance -- -- Andino Fall Risk History of Falling 0 -- -- Secondary Diagnosis 15 -- -- Ambulatory Aids 15 -- -- Intravenous Therapy/Heparin/Saline Lock 20 -- -- Gait/Transferring 10 -- -- Mental Status 0 -- -- Score 60 -- -- Activity and Safety Assistive Device -- -- Front wheel walker OTHER Andino Fall Risk High -- -- 03/20/15 1735 Safety Interventions Safety Precautions/Fall Reduction -- Musculoskeletal Interventions Activity/Level of Assistance -- Positioning -- Muscle Strengthening mobility in bed promoted;activity/mobility promoted Self-Care Promotion -- Andino Fall Risk History of Falling -- Secondary Diagnosis -- Ambulatory Aids -- Intravenous Therapy/Heparin/Saline Lock -- Gait/Transferring -- Mental Status -- Score -- Activity and Safety Assistive Device -- OTHER Andino Fall Risk -- Goal: Infection Control Outcome: Ongoing (Interventions Implemented as Appropriate) 03/20/15 0803 Safety Interventions Isolation Precautions standard precautions maintained Infection Prevention rest/sleep promoted;promote handwashing;nutrition promoted;hydration promoted;environmental surveillance;blood glucose management;bronchial hygiene promoted Coping/Psychosocial Response Interventions Counseling calming techniques promoted Goal: Discharge Needs Assessment Outcome: Ongoing (Interventions Implemented as Appropriate) 03/19/15 1724 Discharge Needs Assessment Concerns to be Addressed no discharge needs identified Readmission Within the Last 30 Days no previous admission in last 30 days Equipment Needed After Discharge walker, rolling Current Health Anticipated Changes Related to Illness none Self-Care Equipment Currently Used at Home none Living Environment Transportation Available car;family or friend will provide Problem: Pain, Acute (Adult, Obstetrics) Goal: Identify Signs and Symptoms and Related Risk Factors Signs and symptoms and related risk factors are identified upon initiation of Human Response Clinical Practice Guideline (CPG) Outcome: Ongoing (Interventions Implemented as Appropriate) 03/20/15 1735 Pain, Acute Signs and Symptoms (Acute Pain) fatigue/weakness Goal: Acceptable Pain Control/Comfort Level Patient will demonstrate the desired outcomes. Outcome: Ongoing (Interventions Implemented as Appropriate) 03/20/15 1735 Pain, Acute (Adult, Obstetrics) Acceptable Pain Control/Comfort Level making progress toward outcome Plan of Care - Severo Madrigal RN - 03/20/2015 7:07 AM EDT Problem: General Plan of Care Goal: Plan of Care Review Outcome: Ongoing (Interventions Implemented as Appropriate) 03/19/15 1724 03/19/152029 Plan of Care Review Plan of Care Outcome Status ongoing (interventions implemented as appropriate) -- Progress progress toward functional goals as expected -- Coping/Psychosocial Response Interventions Plan of Care Reviewed with -- patient OUTCOME EVALUATION NOTE: OUTCOME SUMMARY: Pt had uneventful evening. Had some difficulty with sleep d/t roommate being loud. Heparin drip continued per protocol. Finger sticks continued q4. VSS, slight increased in temp, but when rechecked it was back to 37C. Will continue to monitor. Tele shift report. HR 75-100. Rare singe PVCs. Pt in sinus rhythm. Denies CP/SOB. Will continue to monitor. PLAN MOVING FORWARD: -Pain Control -Mobilize -Pulse checks q4 INDIVIDUALIZED FALL PREVENTION: Assistance: -1-assist with walker Supervision: -Hands-on for all transfers and ambulation Surveillance: -Purposeful Rounding -Masimo -Team Care -Bedside Nurse Knowledge Exchange -Telemetry CPG OUTCOME EVALUATION: Goal: Individualization and Mutuality Outcome: Ongoing (Interventions Implemented as Appropriate) 03/19/154 03/19/15 1800 Individualization Patient Specific Goals pain control, mobilize -- Mutuality/Individual Preferences What anxieties, fears or concerns do you have about your health or care? -- Not being healthy What questions do you have about your health or care? -- none What information would help us give you more personalized care? -- none Goal: Fall Prevention-Safe Patient Handling Outcome: Ongoing (Interventions Implemented as Appropriate) 03/19/152029 Safety Interventions Safety Precautions/Fall Reduction assistive device;environmental modification;fall reduction programmaintained;lighting adjusted for task/safety;low bed;nonskid shoes/slippers when out of bed Musculoskeletal Interventions Activity/Level of Assistance with walker;with stand by assist Positioning independent Self-Care Promotion independence encouraged while providing assistance Andino Fall Risk History of Falling 0 Secondary Diagnosis 15 Ambulatory Aids 15 Intravenous Therapy/Heparin/Saline Lock 20 Gait/Transferring 10 Mental Status 0 Score 60 Activity and Safety Assistive Device Front wheel walker OTHER Andino Fall Risk High Goal: Infection Control Outcome: Ongoing (Interventions Implemented as Appropriate) 03/19/152029 Safety Interventions Isolation Precautions standard precautions maintained Infection Prevention rest/sleep promoted;promote handwashing;nutrition promoted;hydration promoted;environmental surveillance;bronchial hygiene promoted;blood glucose management Coping/Psychosocial Response Interventions Counseling calming techniques promoted;emotional support provided;goal setting facilitated;personal strengths integrated;problem solving facilitated;reassurance provided;understanding of situation facil itated;verbalization of feelings encouraged Goal: Discharge Needs Assessment Outcome: Ongoing (Interventions Implemented as Appropriate) 03/19/151723 Discharge Needs Assessment Concerns to be Addressed no discharge needs identified Readmission Within the Last 30 Days no previous admission in last 30 days Equipment Needed After Discharge walker, rolling Current Health Anticipated Changes Related to Illness none Self-Care Equipment Currently Used at Home none Living Environment Transportation Available car;family or friend will provide Problem: Pain, Acute (Adult, Obstetrics) Goal: Identify Signs and Symptoms and Related Risk Factors Signs and symptoms and related risk factors are identified upon initiation of Human Response Clinical Practice Guideline (CPG) Outcome: Ongoing (Interventions Implemented as Appropriate) 03/20/15 0657 Pain, Acute Related Risk Factors (Acute Pain) surgery Goal: Acceptable Pain Control/Comfort Level Patient will demonstrate the desired outcomes. Outcome: Ongoing (Interventions Implemented as Appropriate) 03/20/15 0657 Pain, Acute (Adult, Obstetrics) Acceptable Pain Control/Comfort Level making progress toward outcome Plan of Care - Karen Burgess RN - 03/19/2015 5:43 PM EDT Problem: General Plan of Care Goal: Plan of Care Review 03/19/15 1724 Plan of Care Review Plan of Care Outcome Status ongoing (interventions implemented as appropriate) Progress progress toward functional goals as expected Coping/Psychosocial Response Interventions Plan of Care Reviewed with patient OUTCOME EVALUATION NOTE: OUTCOME SUMMARY: Patient has had a good day. Pt oob in late morning and sat in chair for most of afternoon. Patient walked twice with nursing. Heparin drip continued and adjusted per heparin drip protocol. Pt experienced elevated blood glucose levels in afternoon requiring insulin coverage. Patient rating pain 6-8/10 throughout day. Pain controlled with NET WEB DEVELOPER and PRR oxycodone. Doppler/pulse checks done on left knee and foot as ordered and have been in nomal limits. Patient experienced semi low urine output in morningwhich has improved throughout afternoon. Pt continues to be monitored on tele and has had no events throughout day. Rn will continue to monitor. PLAN MOVING FORWARD: Pain control, mobilize, continue heparin drip INDIVIDUALIZED FALL PREVENTION: Assistance: One assist with front wheeled walker and chair follow Supervision: Mid assist with ADLs Surveillance: Jose Alejandro, hourly rounding CPG GOAL OUTCOME EVALUATION: Goal: Individualization and Mutuality 03/19/15 1724 Individualization Patient Specific Goals pain control, mobilize Goal: Fall Prevention-Safe Patient Handling 03/19/15 0807 03/19/15 1648 03/19/15 1700 Safety Interventions Safety Precautions/Fall Reduction -- -- fall reduction program maintained Musculoskeletal Interventions Activity/Level of Assistance -- up in room;with walker -- Positioning -- -- HOB up 30 degrees;supine Self-Care Promotion -- -- -- Andino Fall Risk History of Falling 0 -- -- Secondary Diagnosis 15 -- -- Ambulatory Aids 15 -- -- Intravenous Therapy/Heparin/Saline Lock 20 -- -- Gait/Transferring 10 -- -- Mental Status 0 -- -- Score 60 -- -- Activity and Safety Assistive Device Front wheel walker -- -- OTHER Andino Fall Risk High -- -- 03/19/15 172 Safety Interventions Safety Precautions/Fall Reduction -- Musculoskeletal Interventions Activity/Level of Assistance -- Positioning -- Self-Care Promotion adaptive equipment provided;assistance provided to decrease frustration;hygiene assistance provided;independence encouraged while providing assistance Andino Fall Risk History of Falling -- Secondary Diagnosis -- Ambulatory Aids -- Intravenous Therapy/Heparin/Saline Lock -- Gait/Transferring -- Mental Status -- Score -- Activity and Safety Assistive Device -- OTHER Andino Fall Risk -- Goal: Infection Control 03/19/15 0807 03/19/151723 Safety Interventions Isolation Precautions -- standard precautions maintained Infection Prevention blood glucose management;bronchial hygiene promoted;environmental surveillance;hydration promoted;promote handwashing;nutrition promoted;rest/sleep promoted -- Coping/Psychosocial Response Interventions Counseling calming techniques promoted;emotional support provided;goal setting facilitated;reassurance provided;relaxation techniques promoted -- Goal: Discharge Needs Assessment 03/19/151723 Discharge Needs Assessment Concerns to be Addressed no discharge needs identified Readmission Within the Last 30 Days no previous admission in last 30 days Equipment Needed After Discharge walker, rolling Current Health Anticipated Changes Related to Illness none Self-Care Equipment Currently Used at Home none Living Environment Transportation Available car;family or friend will provide Op Note - Anabella Hitchcock MD - 03/18/2015 7:35 PM EDT [facility] [place] Patient Name: Chan Perry : [id number] MR#: [id number] Case Date: 03/18/2015 Surgeon: Surgeon(s) and Role: * Glen Doyle MD - Primary * Anabella Hitchcock MD - Resident-Surgeon Chief * Sheryl Pritchard MD - Fellow Preoperative diagnosis: PAD w/ claudication and non-healing foot ulcer Postoperative diagnosis: PAD w/ claudication and non-healing foot ulcer Procedure(s): @BYPASS GRAFT, FEM.-ANT. TIB, POST. TIB, PERONEAL, DP W\ VEIN CONDUIT ([place] [id number]) Left SFA-peroneal bypass with lateral fibulectomy Peroneal vein interposition graft Left GSV angioscopy Anesthesia: General Findings: Diminutive left GSV with multiple side branches. Left lateral fibulectomy performed with peroneal injury/transection noted with bone removal. Vein interposition graft of left peroneal artery for repair (end to end). Lateral subcutaneous venous tunnel of vein. Short segment (~3cm thromboendart erectomy of proximal left SFA; profunda without stenosis. End to side proximal left SFA anastomosis,distal end to side anastomosis to the vein interposition of the peroneal. Heparin 8000 units, Protamine 20 mg. Papavarine 60 mg. Completion duplex demonstrated good bypass flow with EDV in 20s. Bypass pulse at knee and strong DP signal fed from peroneal in foot present and PT signal at ankle present at case completion. Complications: peroneal artery injury with fibulectomy Fluids: 3200 mL crystalloid Estimated Blood Loss: 400 mL UOP: 395 mL Drains: none Specimens removed during surgery: None Surgical Closure: Primary Closure - closure of ALL tissue levels during the original surgery regardless of wires, wickes, drains, or other devices extruding through the incision Disposition: awakened from anesthesia, extubated and taken to the recovery room in a stable condition, having suffered no apparent untoward event. Condition: doing well without problems (Please see the Surgical Encounter Summary for any Implant and Specimen details pertinent to this patient.) HPI/Surgical Indications: Ms. Chan Perry is a 64 yo female with PMHx significant for DM, HTN, HLD with bilateral lower extremity claudication that has now transitioned to CLI (rest pain) of the LLE. ABIs are diminished bilaterally at 0.32 DP, 0.24 PT on the left. Preoperative dobutamine stress echo notable for focal reversible ischemia; following discussion with anesthesia, cardiology and Dr. Doyle, the patient elects to proceed with surgical treatment of her rest pain with close periprocedural cardiac monitoring. She presents today for left fem-peroneal bypass with ipsilateral great saphenous vein for treatment of her CLI. Procedure Description: The patient was identified and consented in the preoperative holding area. She was brought to the operating room and placed in the supine position and general endotracheal anesthesia administered and aradial arterial line and urinary catheter placed. Preoperative vein map markings were reinforced. Preoperative antibiotics were administered, the patient prepped and draped in the usual sterile fashion, and a full operative time out was performed with all members of the team in agreement. The operation was begun with harvest of the left great saphenous vein from the groin through the distal calf along previously marked vein mapping. The vein was noted to be of marginal quality (small with many small branches) throughout its course with bifurcation into two branches in calf. Side branches were ligated with silk ties. Following exposure of the vein along its course, the vein was ligatedand divided at its distal extent and suture ligated at the saphenofemoral junction proximally. The vein was the examined and irrigated and inflated with heparinized saline; small residual areas of leakwere ligated with tonsil and 4-0 ties or suture repaired with 6-0 prolene sutures. Vein angioscopy was then performed with valvulolysis to allow placement in the nonreversed position. The vein was thenwrapped in a moist gauze and kept off the field while the arterial exposures were performed. In the left groin the vein harvest incision was extended proximally to expose the proximal SFA to distal common femoral artery and profunda origin and circumferential loop control obtained around each. Attention was then turned towards the peroneal exposure from a lateral approach in the mid-distal calf. An approximately 10 cm vetical skin incision was performed on the lateral aspect of the leg overlying the fibula. The incision was deepend to expose the fibula and an approximately 7 cm segment of the fibula was cleared of its lateral muscular attachments with cautery and a periosteal elevator usedto clear as much of the surrounding anterior and posterior attachments as was feasible from the field of view. A right angle clamp was then passed posteriorly and used to free the posterior border. A Gigli saw was then used to transect the fibula proximally and distally. Upon removal of the fibula, anincreased amount of bleeding was noted and injury to both the peroneal vein and artery was noted with peroneal artery transection. Systemic heparinization was administered and maintained with redosing to keep ACTs greater than 275 sec during the remainder of all arterial work. The peroneal artery was clamped proximally and distally with Yazargil clips and the determination made that a primary repair would not be feasible based on length of retraction. The peroneal vein was oversewn with a 6-0 prolene suture in the area of injury. A [place] tunneler was used to create a tunnel from the lateral peronealexposure to the proximal SFA in the subcutaneous tissue and the vein graft after inflation with orientation marked, passed though. The distal portion of the vein was trimmed to size to allow for a spatulated interposition graft of the peroneal artery performed in an end-to-end fashion with running 6-0prolenes in standard fashion. Following completion of this, an longitudinal arteriotomy was made in the interposition graft at the peroneal and extended proximally and distally with Wang scissors for a total length of approximately 2 cm and the distal end-to-side vein graft anastomosis was created from the GSV conduit (spatulated to match) onto the peroneal interposition graft in standard fashion with running 6-0 prolene sutures. 60 mg of papavarine was then flushed down the vein graft and it was clamped. Due to length, the decision was made to open the proximal approximately 3 cm of the SFA and remove the old thrombus in this location; the profunda origin appeared without stenoses. Following spatulation of the graft, the inflow anastomosis was then created in standard fashion with running 5-0 prolene sutures, with the graft and inflow flushed prior to completion of the suture line. Following reopening of the vessels, the bypass graft maintained a good pulse and the outflow had a strong doppler signal proximally and distally. Duplex evaluation demonstrated no distal stenoses and distal graft velocities with EDV of 20. PT and Peroneal signals were obtained at the ankle. Gelfoam soaked in thrombin was then placed on the anastomoses and protamine admininstered. Routine hemostasis was secured, though a small soft anterior hematoma along the graft tunnel just below the knee was noted, and when satisfied with hemostasis, the wounds irrigated and the incision line closed wi th a layer of interrupted 3-0 vicryls along the vein harvest portion and distal exposure and two layers of interrupted vicryls over the femoral exposure. The skin was then closed with masha and dry sterile dressings applied. At case completion the patient maintained a peroneal and PT signal at the ankle and palpable graft pulse at the lateral knee. She was extubated and returned to the PACU in stable condition. All instrument, needle, and sponge counts were correct at case completion. Dr. Doyle was present andscrubbed for all portions of the procedure. Infection Bundle used? No Associated attestation - Glen Doyle MD - 03/25/2015 9:22 AM EDT Attestation: Case Date: 03/18/2015 - 03/19/2015 I was present for and participated in this entire case GLEN DOYLE MD 03/25/2015 Brief Op Note - Anabella Hitchcock MD - 03/18/2015 7:28 PM EDT Brief Operative Note Patient Name: Chan Perry : [id number] MR#: [id number] Case Date: 03/18/2015 Surgeon: Surgeon(s) and Role: * Glen Doyle MD - Primary * Anabella Hitchcock MD - Resident-Surgeon Chief * Sheryl Pritchard MD - Fellow Preoperative diagnosis: PAD w/ claudication and non-healing foot ulcer Postoperative diagnosis: PAD w/ claudication and non-healing foot ulcer Procedure(s): @BYPASS GRAFT, FEM.-ANT. TIB, POST. TIB, PERONEAL, DP W\ VEIN CONDUIT ([place] [id number]) Left SFA-peroneal bypass with lateral fibulectomy Peroneal vein interposition graft Left GSV angioscopy Anesthesia: General Findings: Diminutive left GSV with multiple side branches. Left lateral fibulectomy performed with peroneal injury/transection noted with bone removal. Vein interposition graft of left peroneal artery for repair (end to end). Lateral subcutaneous venous tunnel of vein. Short segment (~3cm thromboendart erectomy of proximal left SFA; profunda without stenosis. End to side proximal left SFA anastomosis,distal end to side anastomosis to the vein interposition of the peroneal. Heparin 8000 units, Protamine 20 mg. Papavarine 60 mg. Completion duplex demonstrated good bypass flow with EDV in 20s. Bypass signal and strong DP signal present at case completion. Complications: peroneal artery injury with fibulectomy Fluids: 3200 mL crystalloid Estimated Blood Loss: 400 mL UOP: 395 mL Drains: none Disposition: awakened from anesthesia, extubated and taken to the recovery room in a stable condition, having suffered no apparent untoward event. Condition: doing well without problems (Please see the Surgical Encounter Summary for any Implant and Specimen details pertinent to this patient.) Infection Bundle used? No documented in this encounter Plan of Treatment Not on filedocumented as of this encounter Procedures Procedure Name Priority Date/Time Associated Diagnosis Comme nts JUNIOR ESTIMATOR SCAN 04/04/2015 12:00 AM EDT LAB SCAN 03/27/2015 12:00 AM EDT JUNIOR ESTIMATOR SCAN 03/27/2015 12:00 AM EDT POCT GLUCOSE Routine 03/24/2015 11:44 Results for this AM EDT procedure are i n the results section. POCT GLUCOSE Routine 03/24/2015 7:15 AM Results f or this EDT procedure are i n the results section. POCT GLUCOSE Routine 03/24/2015 4:09 AM Results f or this EDT procedure are i n the results section. HEMOGRAM Routine 03/24/2015 3:04 AM Results f or this EDT procedure are i n the results section. DIFFERENTIAL, Routine 03/24/2015 3:04 AM Results for this AUTOMATED EDT procedure are i n the results section. APTT Routine 03/24/2015 3:04 AM Results f or this EDT procedure are i n the results section. PROTHROMBIN TIME Routine 03/24/2015 3:04 AM Resul ts for this EDT procedure are i n the results section. CBC (WITH DIFF) Routine 03/24/2015 3:04 AM EDT BASIC METABOLIC Routine 03/24/2015 3:04 AM Result s for this PANEL (NON-FASTING) EDT procedur e are in the results section. POCT GLUCOSE Routine 03/24/2015 12:44 Results for this AM EDT procedure are i n the results section. POCT GLUCOSE Routine 03/23/2015 6:41 PM Results f or this EDT procedure are i n the results section. POCT GLUCOSE Routine 03/23/2015 4:23 PM Results f or this EDT procedure are i n the results section. APTT STAT 03/23/2015 4:19 PM Results f or this EDT procedure are i n the results section. POCT GLUCOSE Routine 03/23/2015 11:50 Results for this AM EDT procedure are i n the results section. APTT STAT 03/23/2015 9:49 AM Results f or this EDT procedure are i n the results section. POCT GLUCOSE Routine 03/23/2015 8:01 AM Results f or this EDT procedure are i n the results section. POCT GLUCOSE Routine 03/23/2015 4:11 AM Results f or this EDT procedure are i n the results section. HEMOGRAM Routine 03/23/2015 2:40 AM Results f or this EDT procedure are i n the results section. DIFFERENTIAL, Routine 03/23/2015 2:40 AM Results for this AUTOMATED EDT procedure are i n the results section. APTT STAT 03/23/2015 2:40 AM Results f or this EDT procedure are i n the results section. PROTHROMBIN TIME STAT 03/23/2015 2:40 AM Resul ts for this EDT procedure are i n the results section. CBC (WITH DIFF) Routine 03/23/2015 2:40 AM EDT BASIC METABOLIC Routine 03/23/2015 2:40 AM Result s for this PANEL (NON-FASTING) EDT procedur e are in the results section. POCT GLUCOSE Routine 03/22/2015 11:43 Results for this PM EDT procedure are i n the results section. POCT GLUCOSE Routine 03/22/2015 7:19 PM Results f or this EDT procedure are i n the results section. APTT STAT 03/22/2015 4:59 PM Results f or this EDT procedure are i n the results section. POCT GLUCOSE Routine 03/22/2015 4:39 PM Results f or this EDT procedure are i n the results section. POCT GLUCOSE Routine 03/22/2015 11:51 Results for this AM EDT procedure are i n the results section. SOSA, LEGS, MULTIPLE Routine 03/22/2015 10:54 Resu lts for this LEVELS AM EDT procedure are i n the results section. HEMOGRAM Routine 03/22/2015 9:56 AM Results f or this EDT procedure are i n the results section. DIFFERENTIAL, Routine 03/22/2015 9:56 AM Results for this AUTOMATED EDT procedure are i n the results section. APTT STAT 03/22/2015 9:56 AM Results f or this EDT procedure are i n the results section. CBC (WITH DIFF) Routine 03/22/2015 9:56 AM EDT POCT GLUCOSE Routine 03/22/2015 7:28 AM Results f or this EDT procedure are i n the results section. POCT GLUCOSE Routine 03/22/2015 6:43 AM Results f or this EDT procedure are i n the results section. POCT GLUCOSE Routine 03/22/2015 4:00 AM Results f or this EDT procedure are i n the results section. HEMOGRAM Routine 03/22/2015 3:38 AM Results f or this EDT procedure are i n the results section. DIFFERENTIAL, Routine 03/22/2015 3:38 AM Results for this AUTOMATED EDT procedure are i n the results section. PROTHROMBIN TIME Routine 03/22/2015 3:38 AM Resul ts for this EDT procedure are i n the results section. CBC (WITH DIFF) Routine 03/22/2015 3:38 AM EDT BASIC METABOLIC Routine 03/22/2015 3:38 AM Result s for this PANEL (NON-FASTING) EDT procedur e are in the results section. POCT GLUCOSE Routine 03/22/2015 12:23 Results for this AM EDT procedure are i n the results section. POCT GLUCOSE Routine 03/21/2015 7:09 PM Results f or this EDT procedure are i n the results section. POCT GLUCOSE Routine 03/21/2015 4:22 PM Results f or this EDT procedure are i n the results section. POCT GLUCOSE Routine 03/21/2015 11:14 Results for this AM EDT procedure are i n the results section. TRANSFUSE RED BLOOD Routine 03/21/2015 11:10 CELLS AM EDT ABO/RH TYPING Routine 03/21/2015 9:31 AM Results for this EDT procedure are i n the results section. ANTIBODY SCREEN Routine 03/21/2015 9:31 AM Result s for this EDT procedure are i n the results section. TYPE AND SCREEN Routine 03/21/2015 9:31 AM (DH/CGP/BALDOMERO) EDT EKG 12-LEAD STAT 03/21/2015 9:16 AM Claudication Results f or this EDT procedure are i n the results section. PREPARE RBC Routine 03/21/2015 9:05 AM Results f or this EDT procedure are i n the results section. POCT GLUCOSE Routine 03/21/2015 7:00 AM Results f or this EDT procedure are i n the results section. HEMOGRAM Routine 03/21/2015 6:01 AM Results f or this EDT procedure are i n the results section. DIFFERENTIAL, Routine 03/21/2015 6:01 AM Results for this AUTOMATED EDT procedure are i n the results section. APTT Routine 03/21/2015 6:01 AM Results f or this EDT procedure are i n the results section. PROTHROMBIN TIME Routine 03/21/2015 6:01 AM Resul ts for this EDT procedure are i n the results section. CBC (WITH DIFF) Routine 03/21/2015 6:01 AM EDT BASIC METABOLIC Routine 03/21/2015 6:01 AM Result s for this PANEL (NON-FASTING) EDT procedur e are in the results section. POCT GLUCOSE Routine 03/21/2015 4:18 AM Results f or this EDT procedure are i n the results section. POCT GLUCOSE Routine 03/20/2015 11:52 Results for this PM EDT procedure are i n the results section. APTT STAT 03/20/2015 11:52 Results for this PM EDT procedure are i n the results section. POCT GLUCOSE Routine 03/20/2015 6:59 PM Results f or this EDT procedure are i n the results section. APTT STAT 03/20/2015 6:01 PM Results f or this EDT procedure are i n the results section. POCT GLUCOSE Routine 03/20/2015 4:28 PM Results f or this EDT procedure are i n the results section. APTT STAT 03/20/2015 11:46 Results for this AM EDT procedure are i n the results section. POCT GLUCOSE Routine 03/20/2015 11:31 Results for this AM EDT procedure are i n the results section. HEMOGRAM Routine 03/20/2015 6:02 AM Results f or this EDT procedure are i n the results section. DIFFERENTIAL, Routine 03/20/2015 6:02 AM Results for this AUTOMATED EDT procedure are i n the results section. APTT STAT 03/20/2015 6:02 AM Results f or this EDT procedure are i n the results section. PROTHROMBIN TIME STAT 03/20/2015 6:02 AM Resul ts for this EDT procedure are i n the results section. CBC (WITH DIFF) Routine 03/20/2015 6:02 AM EDT BASIC METABOLIC Routine 03/20/2015 6:02 AM Result s for this PANEL (NON-FASTING) EDT procedur e are in the results section. POCT GLUCOSE Routine 03/20/2015 5:51 AM Results f or this EDT procedure are i n the results section. POCT GLUCOSE Routine 03/20/2015 1:53 AM Results f or this EDT procedure are i n the results section. APTT STAT 03/19/2015 10:27 Results for this PM EDT procedure are i n the results section. POCT GLUCOSE Routine 03/19/2015 9:27 PM Results f or this EDT procedure are i n the results section. POCT GLUCOSE Routine 03/19/2015 5:37 PM Results f or this EDT procedure are i n the results section. APTT STAT 03/19/2015 2:44 PM Results f or this EDT procedure are i n the results section. POCT GLUCOSE Routine 03/19/2015 1:28 PM Results f or this EDT procedure are i n the results section. POCT GLUCOSE Routine 03/19/2015 9:42 AM Results f or this EDT procedure are i n the results section. APTT STAT 03/19/2015 9:05 AM Results f or this EDT procedure are i n the results section. PROTHROMBIN TIME STAT 03/19/2015 9:05 AM Resul ts for this EDT procedure are i n the results section. BASIC METABOLIC STAT 03/19/2015 9:05 AM Result s for this PANEL (NON-FASTING) EDT procedur e are in the results section. POCT GLUCOSE Routine 03/19/2015 4:31 AM Results f or this EDT procedure are i n the results section. HEMOGRAM Routine 03/19/2015 2:35 AM Results f or this EDT procedure are i n the results section. DIFFERENTIAL, Routine 03/19/2015 2:35 AM Results for this AUTOMATED EDT procedure are i n the results section. APTT STAT 03/19/2015 2:35 AM Results f or this EDT procedure are i n the results section. CBC (WITH DIFF) Routine 03/19/2015 2:35 AM EDT POCT GLUCOSE Routine 03/19/2015 1:38 AM Results f or this EDT procedure are i n the results section. HEMOGRAM STAT 03/18/2015 11:10 Results for this PM EDT procedure are i n the results section. POCT GLUCOSE Routine 03/18/2015 7:52 PM Results f or this EDT procedure are i n the results section. HEMOGRAM STAT 03/18/2015 7:42 PM Results f or this EDT procedure are i n the results section. APTT STAT 03/18/2015 7:42 PM Results f or this EDT procedure are i n the results section. BLOOD GAS 2 ARTERIAL Routine 03/18/2015 2:24 PM R esults for this EDT procedure are i n the results section. UNILATERAL BYPASS Routine 03/18/2015 1:42 PM Resu lts for this GRAFT ASSESS EDT procedure are i n the results section. @BYPASS GRAFT, Yes 03/18/2015 1:20 PM PAD w/ claudication FEM.-ANT. TIB, POST. EDT and non-healing foot TIB, PERONEAL, DP W\ ulcer VEIN [place]IT [place] [id number]) (WRVU 32.35) POCT GLUCOSE Routine 03/18/2015 10:42 Results for this AM EDT procedure are i n the results section. documented in this encounter Results SOSA, legs, multiple levels (04/15/2015 1:16 PM EDT) Component Value Ref Test Analysis Performed At [facility] Range Method Time Signature VB Text Department: Vascular Surgery Lab VASCUBASE Report Patient: [id number] (CHAN PERRY) CPT: 15810 ICD10: I70.213 Referring Physician: GLEN DOYLE ?? Indications: s/p L fem-peroneal bypass Diabetes mellitus: yes ICD10 Diagnosis Code: I70.213 Definitions: SOSA = Ankle / Brachial Systolic Pressure Index, TBI = Toe / Brachial Systolic Pressure Index. All systolic pressures in this study are derived based on Doppler assessment of blood flow. Findings: Right ?Pressure (mm Hg) ?? SOSA ??Waveform ? TBI ?? Brachial Artery ?168 ? Dorsalis Pedis (Ankle) Arter y ?71 ?0.42 ??Monophasic ? Posterior Tibial (Ankle) Art gregory ??96 ?0.57 ??Monophasic ? Great Toe ?43 ?0.26 ?? Left ? Pressure (mm Hg) ?? SOSA ??Waveform ? TBI ?? Brachial Artery ?161 ? Dorsalis Pedis (Ankle) Arter y ?160 ? 0.95 ??Biphasic ? Posterior Tibial (Ankle) Art gregory ??129 ? 0.77 ??Monophasic ? Great Toe ?72 ?0.43 ?? Interpretation: RIGHT: Moderate to moderately severe lower extremity arteria l occlusive disease. No significant change compared to previous exam. LEFT: Mild lower extremity arterial occlusive disease. Signi ficant deterioration in ABIs compared to initial post-op exam, but toe index is unchanged. However, today's values remain markedly improved when compared to the patient's pre-operative results when SOSA was only 0.32 and T BI only 0.12. Previous ABIs with change from previous value: Date ?RIGHT DP ?? RIGHT PT ?? RT GR TOE ??LEFT DP ?LEFT PT ?LT GR TOE ??0.49 ? 0 .52 ? 0.25 ? 0.32 ? 0.24 ? 0.12 ??---- ? - --- ? ---- ? 1.09(+.77) 1.01(+.77) 0.34(+.22) Current ? 0.42 ? 0.57 ? 0.26 ? 0.95(-.14) 0.77(-.24) 0.43(+.09) Electronically Signed by: NATANAEL NUÑEZ on 2015-04-16 06:18: 19 PM VB Text End of Report VASCUBASE Report Specimen (Source) Anatomical Collection Method Collection Time Re ceived Time Location / / Volume Laterality 04/15/2015 1:16 PM EDT Glen Doyle MD VASCULAR ORDERABLES Performing Organization Address City/State/ZIP Code Phon e Number VASCUBASE SCAN DOC: JUNIOR ESTIMATOR (04/04/2015 12:00 AM EDT) Narrative This result has an attachment that is no t available. Scanning Provider MEDIA MGR SCAN EXT ORDR/RSLT SCAN DOC: JUNIOR ESTIMATOR (03/27/2015 12:00 AM EDT) Narrative This result has an attachment that is no t available. Scanning Provider MEDIA MGR SCAN EXT ORDR/RSLT SCAN DOC: LAB (03/27/2015 12:00 AM EDT) Narrative This result has an attachment that is no t available. Scanning Provider MEDIA MGR SCAN EXT ORDR/RSLT POCT Glucose (03/24/2015 11:44 AM EDT) athologist Signature POC Glucose 166 65 - 199 CERNER mg/dL MILLENNIUM Comment: Supplemental ranges: <140 mg/dL before meals <180 mg/dL all other times of the day Specimen Anatomical Collection Method Collection Time Receive d Time (Source) Location / / Volume Laterality Blood specimen 03/24/2015 11:44 5 (specimen) AM EDT 11:44 AM EDT Glen Doyle MD POINT OF CARE TEST ORDERABLE S Performing Organization Address City/[facility]/ZIP [place] [address] CERNER MILLENNIUM POCT Glucose (03/24/2015 7:15 AM EDT) athologist Signature POC Glucose 147 65 - 199 CERNER mg/dL MILLENNIUM Comment: Supplemental ranges: <140 mg/dL before meals <180 mg/dL all other times of the day Specimen Anatomical Collection Method Collection Time Receive d Time (Source) Location / / Volume Laterality Blood specimen 03/24/2015 7:15 AM 015 7:15 (specimen) EDT AM EDT Glen Doyle MD POINT OF CARE TEST ORDERABLE S Performing Organization Address City/State/[place] [address] CERNER MILLENNIUM POCT Glucose (03/24/2015 4:09 AM EDT) athologist Signature POC Glucose 152 65 - 199 CERNER mg/dL MILLENNIUM Comment: Supplemental ranges: <140 mg/dL before meals <180 mg/dL all other times of the day Specimen Anatomical Collection Method Collection Time Receive d Time (Source) Location / / Volume Laterality Blood specimen 03/24/2015 4:09 AM 015 4:09 (specimen) EDT AM EDT Glen Doyle MD POINT OF CARE TEST ORDERABLE S Performing Organization Address City/State/ZIP Code Phon e Number [address] CERNER MILLENNIUM (ABNORMAL) APTT (03/24/2015 3:04 AM EDT) athologist Signature PTT 120 (H) 25 - 35 sec CERNER MILLENNIUM Comment: Recommended therapeutic PTT range for fu ll dose unfractionated heparin is 80-114 seconds. Specimen Anatomical Collection Method Collection Time Receive d Time (Source) Location / / Volume Laterality Blood specimen Venous Draw / 03/24/2015 3:04 AM 2014 3:08 (specimen) Unknown EDT AM EDT Resulting Agency Comment Spec In Lab Glen Doyle MD HEMATOLOGY ORDERABLES Performing Organization Address City/[facility]/ZIP Code Phon e Number [address] CERNER MILLENNIUM Differential, Automated (03/24/2015 3:04 AM EDT) athologist Signature Neutrophils % 58.6 % CERNER MILLENNIUM Neutr Abs (ANC) 3.93 1.50 - CERNER 6.30 MILLENNIUM x10(3)/mcL Lymphocytes % 27.3 % CERNER MILLENNIUM Lymphocytes Abs 1.8 1.0 - 3.6 CERNER x10(3)/mcL MILLENNIUM Monocytes % 11.9 % CERNER MILLENNIUM Monocyte Abs 0.8 0.2 - 1.0 CERNER x10(3)/mcL MILLENNIUM Eosinophils % 1.8 % CERNER MILLENNIUM Eosinophils Abs 0.1 0.0 - 0.5 CERNER x10(3)/mcL MILLENNIUM Basophils % 0.3 % CERNER MILLENNIUM Basophils Abs 0.0 0.0 - 0.2 CERNER x10(3)/mcL MILLENNIUM Immature Gran % 0.10 % CERNER MILLENNIUM [...] Location / / Volume Laterality Blood specimen 03/24/2015 3:04 AM 015 3:08 (specimen) EDT AM EDT Resulting Agency Comment Spec In Lab Glen Doyle MD HEMATOLOGY ORDERABLES Performing Organization Address City/[facility]/ZIP Code Phon e Number [address] CERNER MILLENNIUM (ABNORMAL) Hemogram (03/24/2015 3:04 AM EDT) P athologist Signature WBC 6.7 4.0 - 10.0 CERNER x10(3)/mcL MILLENNIUM RBC 2.90 (L) 3.93 - CERNER 5.22 MILLENNIUM x10(6)/mcL Hemoglobin 9.0 (L) 11.2 - CERNER 15.7 gm/dL MILLENNIUM Hematocrit 25.8 (L) 34.0 - CERNER 45.0 % MILLENNIUM MCV 89.0 79.0 - CERNER 94.0 fL MILLENNIUM MCH 31.0 26.6 - CERNER 32.2 pg MILLENNIUM MCHC 34.9 32.0 - CERNER 36.5 gm/dL MILLENNIUM Platelets 208 145 - 370 CERNER x10(3)/mcL MILLENNIUM RDWSD 54.5 (H) 35.0 - CERNER 46.0 fL MILLENNIUM RDWCV 17.0 (H) 10.9 - CERNER 14.4 % MILLENNIUM MPV 10.8 9.0 - 12.0 CERNER fL MILLENNIUM Specimen Anatomical Collection Method Collection Time Receive d Time (Source) Location / / Volume Laterality Blood specimen 03/24/2015 3:04 AM 015 3:08 (specimen) EDT AM EDT Resulting Agency Comment Spec In Lab Glen Doyle MD HEMATOLOGY ORDERABLES Performing Organization Address City/[facility]/ZIP [place] [address] CERNER MILLENNIUM (ABNORMAL) Basic Metabolic Panel (non-fasting) (03/24/2015 3:04 AM EDT) athologist Signature Glucose Lvl 148 65 - 199 CERNER mg/dL MILLENNIUM Comment: Diabetes: >=200 mg/dL plus symp toms BUN 6 (L) 8 - 18 mg/dL CERNER MILLENNIUM Creatinine 0.34 (L) 0.70 - 1.20 mg/dL CERNER MILL ENNIUM Comment: Please note that the pediatric reference intervals supplied above were not validated at [facility] Results from pediatri c patients should be interpreted in conjunction to the patient's age, height and muscle mass. Sodium 140 135 - 145 mmol/L CERNER KINGSLEY NIUM Potassium 3.1 (L) 3.5 - 5.0 mmol/L CERNER KINGSLEY [...] the following links into your internet browser. [email or web address] Specimen Anatomical Collection Method Collection Time Receive d Time (Source) Location / / Volume Laterality Blood specimen 03/24/2015 3:04 AM 015 3:08 (specimen) EDT AM EDT Resulting Agency Comment Spec In Lab Glen Doyle MD CHEMISTRY ORDERABLES Performing Organization Address City/State/ZIP Code Phon e Number [address] CERNER MILLENNIUM (ABNORMAL) Prothrombin Time (03/24/2015 3:04 AM EDT) athologist Signature PT 24.6 (H) 12.0 - 15.0 CERNER sec MILLENNIUM Comment: Transfusion Committee Guidelines: INR less than 2.0, PTT less than OR equal to 43.5 seconds, or Fibrinogen greater t romero or equal to 100 mg/dl indicate adequate procoagulant activity for hemos tasis in patients without underlying bleeding disorders. INR 2.1 (H) 0.9 - 1.[address] Specimen Anatomical Collection Method Collection Time Receive d Time (Source) Location / / Volume Laterality Blood specimen 03/24/2015 3:04 AM 015 3:08 (specimen) EDT AM EDT Resulting Agency Comment Spec In Lab Glen Doyle MD HEMATOLOGY ORDERABLES Performing Organization Address City/[facility]/ZIP Code Phon e Number [address] [facility] POCT Glucose (03/24/2015 12:44 AM EDT) athologist Signature POC Glucose 149 65 - 199 CERNER mg/dL [facility] Comment: Supplemental ranges: <140 mg/dL before meals <180 mg/dL all other times of the day Specimen Anatomical Collection Method Collection Time Receive d Time (Source) Location / / Volume Laterality Blood specimen 03/24/2015 12:44 5 (specimen) AM EDT 12:44 AM EDT Glen Doyle MD POINT OF CARE TEST ORDERABLE S Performing Organization Address City/[facility]/ZIP Code Phon e Number [address] [facility] MILLENNIUM POCT Glucose (03/23/2015 6:41 PM EDT) athologist Signature POC Glucose 162 65 - 199 CERNER mg/dL MILLENNIUM Comment: Supplemental ranges: <140 mg/dL before meals <180 mg/dL all other times of the day Specimen Anatomical Collection Method Collection Time Receive d Time (Source) Location / / Volume Laterality Blood specimen 03/23/2015 6:41 PM 015 6:41 (specimen) EDT PM EDT Glen Doyle MD POINT OF CARE TEST ORDERABLE S Performing Organization Address City/State/[place]IP [place] [address] CERNER MILLENNIUM POCT Glucose (03/23/2015 4:23 PM EDT) P athologist Signature POC Glucose 176 65 - 199 CERNER mg/dL MILLENNIUM Comment: Supplemental ranges: <140 mg/dL before meals <180 mg/dL all other times of the day Specimen Anatomical Collection Method Collection Time Receive d Time (Source) Location / / Volume Laterality Blood specimen 03/23/2015 4:23 PM 015 4:23 (specimen) EDT PM EDT Glen Doyle MD POINT OF CARE TEST ORDERABLE S Performing Organization Address City/[facility]/ZIP Code Phon e Number [address] CERNER MILLENNIUM (ABNORMAL) APTT (03/23/2015 4:19 PM EDT) P athologist Signature PTT 83 (H) 25 - 35 sec CERNER MILLENNIUM Comment: Recommended therapeutic PTT range for fu ll dose unfractionated heparin is 80-114 seconds. Specimen Anatomical Collection Method Collection Time Receive d Time (Source) Location / / Volume Laterality Blood specimen 03/23/2015 4:19 PM 015 5:09 (specimen) EDT PM EDT Resulting Agency Comment Spec In Lab Glen Doyle MD HEMATOLOGY ORDERABLES Performing Organization Address City/State/ZIP Code Phon e Number [address] CERNER MILLENNIUM POCT Glucose (03/23/2015 11:50 AM EDT) P athologist Signature POC Glucose 154 65 - 199 CERNER mg/dL MILLENNIUM Comment: Supplemental ranges: <140 mg/dL before meals <180 mg/dL all other times of the day Specimen Anatomical Collection Method Collection Time Receive d Time (Source) Location / / Volume Laterality Blood specimen 03/23/2015 11:50 5 (specimen) AM EDT 11:50 AM EDT Glen Doyle MD POINT OF CARE TEST ORDERABLE S Performing Organization Address City/State/[place]IP [place] [address] CERNER MILLENNIUM (ABNORMAL) APTT (03/23/2015 9:49 AM EDT) P athologist Signature PTT 90 (H) 25 - 35 sec CERNER MILLENNIUM Comment: Recommended therapeutic PTT range for fu ll dose unfractionated heparin is 80-114 seconds. Specimen Anatomical Collection Method Collection Time Receive d Time (Source) Location / / Volume Laterality Blood specimen 03/23/2015 9:49 AM 015 (specimen) EDT 10:14 AM EDT Resulting Agency Comment Spec In Lab Glen Doyle MD HEMATOLOGY ORDERABLES Performing Organization Address City/[facility]/ZIP Code Phon e Number [address] CERNER MILLENNIUM (ABNORMAL) POCT Glucose (03/23/2015 8:01 AM EDT) P athologist Signature POC Glucose 215 (H) 65 - 199 CERNER mg/dL [facility] Comment: Supplemental ranges: <140 mg/dL before meals <180 mg/dL all other times of the day Specimen Anatomical Collection Method Collection Time Receive d Time (Source) Location / / Volume Laterality Blood specimen 03/23/2015 8:01 AM 015 8:01 (specimen) EDT AM EDT Glen Doyle MD POINT OF CARE TEST ORDERABLE S Performing Organization Address City/[facility]/ZIP Code Phon e Number [address] CERNER MILLENNIUM POCT Glucose (03/23/2015 4:11 AM EDT) P athologist Signature POC Glucose 181 65 - 199 CERNER mg/dL MILLENNIUM Comment: Supplemental ranges: <140 mg/dL before meals <180 mg/dL all other times of the day Specimen Anatomical Collection Method Collection Time Receive d Time (Source) Location / / Volume Laterality Blood specimen 03/23/2015 4:11 AM 015 4:11 (specimen) EDT AM EDT Glen Doyle MD POINT OF CARE TEST ORDERABLE S Performing Organization Address City/[facility]/[place]IP [place] [address] CERNER MILLENNIUM (ABNORMAL) Prothrombin Time (03/23/2015 2:40 AM EDT) P athologist Signature PT 19.1 (H) 12.0 - 15.0 CERNER sec MILLENNIUM Comment: Transfusion Committee Guidelines: INR less than 2.0, PTT less than OR equal to 43.5 seconds, or Fibrinogen greater t romero or equal to 100 mg/dl indicate adequate procoagulant activity for hemos tasis in patients without underlying bleeding disorders. INR 1.6 (H) 0.9 - 1.1 CERNER MILLENNIUM Specimen Anatomical Collection Method Collection Time Receive d Time (Source) Location / / Volume Laterality Blood specimen Venous Draw / 03/23/2015 2:40 AM 2014 2:55 (specimen) Unknown EDT AM EDT Resulting Agency Comment Spec In Lab Glen Doyle MD HEMATOLOGY ORDERABLES Performing Organization Address City/[facility] [place] [address] CERNER MILLENNIUM (ABNORMAL) APTT (03/23/2015 2:40 AM EDT) P athologist Signature PTT 76 (H) 25 - 35 sec CERNER MILLENNIUM Comment: Recommended therapeutic PTT range for fu ll dose unfractionated heparin is 80-114 seconds. Specimen Anatomical Collection Method Collection Time Receive d Time (Source) Location / / Volume Laterality Blood specimen 03/23/2015 2:40 AM 015 2:55 (specimen) EDT AM EDT Resulting Agency Comment Spec In Lab Glen Doyle MD HEMATOLOGY ORDERABLES Performing Organization Address City/[facility]/[place] [address] [facility] [address] CERNER MILLENNIUM Differential, Automated (03/23/2015 2:40 AM EDT) P athologist Signature Neutrophils % 64.7 % CERNER MILLENNIUM Neutr Abs (ANC) 4.35 1.50 - CERNER 6.30 MILLENNIUM x10(3)/mcL Lymphocytes % 23.6 % CERNER MILLENNIUM Lymphocytes Abs 1.6 1.0 - 3.6 CERNER x10(3)/mcL MILLENNIUM Monocytes % 10.1 % CERNER MILLENNIUM Monocyte Abs 0.7 0.2 - 1.0 CERNER x10(3)/mcL MILLENNIUM Eosinophils % 1.2 % CERNER MILLENNIUM Eosinophils Abs 0.1 0.0 - 0.5 CERNER x10(3)/mcL MILLENNIUM Basophils % 0.3 % CERNER MILLENNIUM Basophils Abs 0.0 0.0 - 0.2 CERNER x10(3)/mcL MILLENNIUM Immature Gran % 0.10 % CERNER MILLENNIUM [...] Location / / Volume Laterality Blood specimen 03/23/2015 2:40 AM 015 2:55 (specimen) EDT AM EDT Resulting Agency Comment Spec In Lab Glen Doyle MD HEMATOLOGY ORDERABLES Performing Organization Address City/State/ZIP Code Phon e Number [place] [phone] CERNER MILLENNIUM (ABNORMAL) Hemogram (03/23/2015 2:40 AM EDT) P athologist Signature WBC 6.7 4.0 - 10.0 CERNER x10(3)/mcL MILLENNIUM RBC 3.03 (L) 3.93 - CERNER 5.22 MILLENNIUM x10(6)/mcL Hemoglobin 9.1 (L) 11.2 - CERNER 15.7 gm/dL MILLENNIUM Hematocrit 27.3 (L) 34.0 - CERNER 45.0 % MILLENNIUM MCV 90.1 79.0 - CERNER 94.0 fL MILLENNIUM MCH 30.0 26.6 - CERNER 32.2 pg MILLENNIUM MCHC 33.3 32.0 - CERNER 36.5 gm/dL MILLENNIUM Platelets 202 145 - 370 CERNER x10(3)/mcL MILLENNIUM RDWSD 57.1 (H) 35.0 - CERNER 46.0 fL MILLENNIUM RDWCV 17.5 (H) 10.9 - CERNER 14.4 % MILLENNIUM MPV 11.4 9.0 - 12.0 CERNER fL MILLENNIUM Specimen Anatomical Collection Method Collection Time Receive d Time (Source) Location / / Volume Laterality Blood specimen 03/23/2015 2:40 AM 015 2:55 (specimen) EDT AM EDT Resulting Agency Comment Spec In Lab Glen Doyle MD HEMATOLOGY ORDERABLES Performing Organization Address City/State/ZIP [place] [address] CERNER MILLENNIUM (ABNORMAL) Basic Metabolic Panel (non-fasting) (03/23/2015 2:40 AM EDT) athologist Signature Glucose Lvl 158 65 - 199 CERNER mg/dL MILLENNIUM Comment: Diabetes: >=200 mg/dL plus symp toms BUN 8 8 - 18 mg/dL CERNER MILLENNIUM Creatinine 0.35 (L) 0.70 - 1.20 mg/dL CERNER MILL ENNIUM Comment: Please note that the pediatric reference intervals supplied above were not validated [place] [facility] Results from pediatri c patients should be interpreted in conjunction to the patient's age, height and muscle mass. Sodium 139 135 - 145 mmol/L CERNER KINGSLEY NIUM Potassium 3.3 (L) 3.5 - 5.0 mmol/L CERNER KINGSLEY [...] the following links into your internet browser. [email or web address] [email or web address] Specimen Anatomical Collection Method Collection Time Receive d Time (Source) Location / / Volume Laterality Blood specimen 03/23/2015 2:40 AM 015 2:55 (specimen) EDT AM EDT Resulting Agency Comment Spec In Lab Glen Doyle MD CHEMISTRY ORDERABLES Performing Organization Address City/[facility]/ZIP Code Phon e Number [place] [phone] CERNER MILLENNIUM (ABNORMAL) POCT Glucose (03/22/2015 11:43 PM EDT) P athologist Signature POC Glucose 217 (H) 65 - 199 CERNER mg/dL MILLENNIUM Comment: Supplemental ranges: <140 mg/dL before meals <180 mg/dL all other times of the day Specimen Anatomical Collection Method Collection Time Receive d Time (Source) Location / / Volume Laterality Blood specimen 03/22/2015 11:43 5 (specimen) PM EDT 11:43 PM EDT Glen Doyle MD POINT OF CARE TEST ORDERABLE S Performing Organization Address City/State/ZIP Code Phon e Number [place] [address] CERNER MILLENNIUM POCT Glucose (03/22/2015 7:19 PM EDT) athologist Signature POC Glucose 187 65 - 199 CERNER mg/dL MILLENNIUM Comment: Supplemental ranges: <140 mg/dL before meals <180 mg/dL all other times of the day Specimen Anatomical Collection Method Collection Time Receive d Time (Source) Location / / Volume Laterality Blood specimen 03/22/2015 7:19 PM 015 7:19 (specimen) EDT PM EDT Glen Doyle MD POINT OF CARE TEST ORDERABLE S Performing Organization Address City/[facility]/ZIP Code Phon e Number [address] CERNER MILLENNIUM (ABNORMAL) APTT (03/22/2015 4:59 PM EDT) athologist Signature PTT 84 (H) 25 - 35 sec CERNER MILLENNIUM Comment: Recommended therapeutic PTT range for fu ll dose unfractionated heparin is 80-114 seconds. Specimen Anatomical Collection Method Collection Time Receive d Time (Source) Location / / Volume Laterality Blood specimen 03/22/2015 4:59 PM 015 5:06 (specimen) EDT PM EDT Resulting Agency Comment Spec In Lab Glen Doyle MD HEMATOLOGY ORDERABLES Performing Organization Address City/[facility]/ZIP [place] [address] CERNER MILLENNIUM POCT Glucose (03/22/2015 4:39 PM EDT) athologist Signature POC Glucose 148 65 - 199 CERNER mg/dL IUM Comment: Supplemental ranges: <140 mg/dL before meals <180 mg/dL all other times of the day Specimen Anatomical Collection Method Collection Time Receive d Time (Source) Location / / Volume Laterality Blood specimen 03/22/2015 4:39 PM 015 4:39 (specimen) EDT PM EDT Glen Doyle MD POINT OF CARE TEST ORDERABLE S Performing Organization Address City/State/ZIP Code Phon e Number [place] [phone] [facility] [address] [facility] (ABNORMAL) POCT Glucose (03/22/2015 11:51 AM EDT) P athologist Signature POC Glucose 209 (H) 65 - 199 CERNER mg/dL [facility] Comment: Supplemental ranges: <140 mg/dL before meals <180 mg/dL all other times of the day Specimen Anatomical Collection Method Collection Time Receive d Time (Source) Location / / Volume Laterality Blood specimen 03/22/2015 11:51 5 (specimen) AM EDT 11:51 AM EDT Glen Doyle MD POINT OF CARE TEST ORDERABLE S Performing Organization Address City/State/ZIP Code Phon e Number [address] [facility] SOSA, legs, multiple levels (03/22/2015 10:54 AM EDT) Component Value Ref Test Analysis Performed At Patholo gist Range Method Time Signature VB Text VASCUBASE Report Department: Vascular Surgery Lab Patient: [id number] (CHAN PERRY) CPT Code: 42581 ICD-9: 443.89 Referring Physician: GLEN DOYLE Indication: ?? s/p LEFT fem-susana bypass, ? change in ABIs ICD9 Diagnosis Code: 443.89 Diabetes Mellitus: ??Yes Definitions: ?? SOSA = Ankle / Brachial Systolic Pressure I ndex, TBI = Toe / Brachial Systolic Pressure Index Findings: Right ?Pressure (mm Hg) ?? Brachial Artery ?151 ? Left ? Pressure (mm Hg) ?? SOSA ??Waveform ?TBI ?? Brachial Artery ?143 ? Dorsalis Pedis (Ankle) Arter y ?165 ? 1.09 ??Marshall- Biphasic ? Posterior Tibial (Ankle) Art gregory ??153 ? 1.01 ??Marshall-Biphasic ? Great Toe ?51 ? 0.34 ?? Interpretation: LEFT: No significant lower extremity arterial oc clusive disease identified at rest at the calf level. Norm al ankle/brachial pressure ratios and ankle Doppler waveforms. 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 Improved from pre-operative exam done on 2014. Previous ABIs with change from previous value: Date ?RIGHT DP ?? RIGHT PT ?? RT GR TOE ??LEFT DP ?LEFT PT ?LT GR TOE ??0.49 ? 0 .52 ? 0.25 ? 0.32 ? 0.24 ? 0.12 Current ? ---- ? ---- ? ---- ? 1.09(+.77) 1.01(+.77) 0.34(+.22) Electronically Signed by: NATANAEL NUÑEZ on 2015-03-27 05:52: 04 PM VB Text End of Report VASCUBASE Report Specimen (Source) Anatomical Collection Method Collection Time Re ceived Time Location / / Volume Laterality 03/22/2015 10:54 AM EDT Glen Doyle MD VASCULAR ORDERABLES Performing Organization Address City/State/ZIP Code Phon e Number [facility] (ABNORMAL) Differential, Automated (03/22/2015 9:56 AM EDT) Patholo gist Method Time Signature Neutrophils % 79.7 % CERNER MILLENNIUM Neutr Abs (ANC) 5.97 1.50 - CERNER 6.30 MILLENNIUM x10(3)/mcL Lymphocytes % 10.7 % CERNER MILLENNIUM Lymphocytes Abs 0.8 (L) 1.0 - 3.6 CERNER x10(3)/mcL MILLENNIUM Monocytes % 9.1 % CERNER MILLENNIUM Monocyte Abs 0.7 0.2 - 1.0 CERNER x10(3)/mcL MILLENNIUM Eosinophils % 0.3 % CERNER MILLENNIUM Eosinophils Abs 0.0 0.0 - 0.5 CERNER x10(3)/mcL MILLENNIUM Basophils % 0.1 % CERNER MILLENNIUM Basophils Abs 0.0 0.0 - 0.2 CERNER x10(3)/mcL MILLENNIUM Immature Gran % 0.10 % CERNER MILLENNIUM [...] Location / / Volume Laterality Blood specimen 03/22/2015 9:56 AM 015 (specimen) EDT 10:20 AM EDT Resulting Agency Comment Spec In Lab Glen Doyle MD HEMATOLOGY ORDERABLES Performing Organization Address City/State/[place] [address] CERNER MILLENNIUM (ABNORMAL) Hemogram (03/22/2015 9:56 AM EDT) P athologist Signature WBC 7.5 4.0 - 10.0 CERNER x10(3)/mcL MILLENNIUM RBC 3.09 (L) 3.93 - CERNER 5.22 MILLENNIUM x10(6)/mcL Hemoglobin 9.4 (L) 11.2 - CERNER 15.7 gm/dL MILLENNIUM Hematocrit 27.8 (L) 34.0 - CERNER 45.0 % MILLENNIUM MCV 90.0 79.0 - CERNER 94.0 fL MILLENNIUM MCH 30.4 26.6 - CERNER 32.2 pg MILLENNIUM MCHC 33.8 32.0 - CERNER 36.5 gm/dL MILLENNIUM Platelets 183 145 - 370 CERNER x10(3)/mcL MILLENNIUM RDWSD 59.4 (H) 35.0 - CERNER 46.0 fL MILLENNIUM RDWCV 18.3 (H) 10.9 - CERNER 14.4 % MILLENNIUM MPV 11.6 9.0 - 12.0 CERNER fL MILLENNIUM Specimen Anatomical Collection Method Collection Time Receive d Time (Source) Location / / Volume Laterality Blood specimen 03/22/2015 9:56 AM 015 (specimen) EDT 10:20 AM EDT Resulting Agency Comment Spec In Lab Glen Doyle MD HEMATOLOGY ORDERABLES Performing Organization Address City/State/ZIP Code Phon e Number [address] [facility] (ABNORMAL) APTT (03/22/2015 9:56 AM EDT) P athologist Signature PTT 46 (H) 25 - [address] [address] Comment: Recommended therapeutic PTT range for fu ll dose unfractionated heparin is 80-114 seconds. Specimen Anatomical Collection Method Collection Time Receive d Time (Source) Location / / Volume Laterality Blood specimen 03/22/2015 9:56 AM 015 (specimen) EDT 10:20 AM EDT Resulting Agency Comment Spec In Lab Glen Doyle MD HEMATOLOGY ORDERABLES Performing Organization Address City/State/ZIP Code Phon e Number [address] [facility] POCT Glucose (03/22/2015 7:28 AM EDT) P athologist Signature POC Glucose 141 65 - 199 CERNER mg/dL MILLENNIUM Comment: Supplemental ranges: <140 mg/dL before meals <180 mg/dL all other times of the day Specimen Anatomical Collection Method Collection Time Receive d Time (Source) Location / / Volume Laterality Blood specimen 03/22/2015 7:28 AM 015 7:28 (specimen) EDT AM EDT Glen Doyle MD POINT OF CARE TEST ORDERABLE S Performing Organization Address City/State/ZIP [place] [address] CERNER MILLENNIUM POCT Glucose (03/22/2015 6:43 AM EDT) athologist Signature POC Glucose 139 65 - 199 CERNER mg/dL MILLENNIUM Comment: Supplemental ranges: <140 mg/dL before meals <180 mg/dL all other times of the day Specimen Anatomical Collection Method Collection Time Receive d Time (Source) Location / / Volume Laterality Blood specimen 03/22/2015 6:43 AM 015 6:43 (specimen) EDT AM EDT Glen Doyle MD POINT OF CARE TEST ORDERABLE S Performing Organization Address City/State/ZIP Code Phon e Number [address] CERNER MILLENNIUM POCT Glucose (03/22/2015 4:00 AM EDT) athologist Signature POC Glucose 153 65 - 199 CERNER mg/dL ENNIUM Comment: Supplemental ranges: <140 mg/dL before meals <180 mg/dL all other times of the day Specimen Anatomical Collection Method Collection Time Receive d Time (Source) Location / / Volume Laterality Blood specimen 03/22/2015 4:00 AM 015 4:00 (specimen) EDT AM EDT Glen Doyle MD POINT OF CARE TEST ORDERABLE S Performing Organization Address City/State/ZIP Code Phon e Number [address] CERNER MILLENNIUM Differential, Automated (03/22/2015 3:38 AM EDT) athologist Signature Neutrophils % 65.1 % CERNER MILLENNIUM Neutr Abs (ANC) 5.12 1.50 - CERNER 6.30 MILLENNIUM x10(3)/mcL Lymphocytes % 21.6 % CERNER MILLENNIUM Lymphocytes Abs 1.7 1.0 - 3.6 CERNER x10(3)/mcL MILLENNIUM Monocytes % 11.8 % CERNER MILLENNIUM Monocyte Abs 0.9 0.2 - 1.0 CERNER x10(3)/mcL MILLENNIUM Eosinophils % 1.3 % CERNER MILLENNIUM Eosinophils Abs 0.1 0.0 - 0.5 CERNER x10(3)/mcL MILLENNIUM Basophils % 0.1 % CERNER MILLENNIUM Basophils Abs 0.0 0.0 - 0.2 CERNER x10(3)/mcL MILLENNIUM Immature Gran % 0.10 % CERNER MILLENNIUM [...] Location / / Volume Laterality Blood specimen 03/22/2015 3:38 AM 015 3:49 (specimen) EDT AM EDT Resulting Agency Comment Spec In Lab Glen Doyle MD HEMATOLOGY ORDERABLES Performing Organization Address City/State/[place] [address] CERNER MILLENNIUM (ABNORMAL) Hemogram (03/22/2015 3:38 AM EDT) P athologist Signature WBC 7.9 4.0 - 10.0 CERNER x10(3)/mcL MILLENNIUM RBC 2.96 (L) 3.93 - CERNER 5.22 MILLENNIUM x10(6)/mcL Hemoglobin 9.0 (L) 11.2 - CERNER 15.7 gm/dL MILLENNIUM Hematocrit 26.2 (L) 34.0 - CERNER 45.0 % MILLENNIUM MCV 88.5 79.0 - CERNER 94.0 fL [facility] MCH 30.4 26.6 - CERNER 32.2 pg [facility] MCHC 34.4 32.0 - CERNER 36.5 gm/dL [facility] Platelets 176 145 - 370 CERNER x10(3)/mcL [facility] RDWSD 58.7 (H) 35.0 - CERNER 46.0 fL [facility] RDWCV 18.3 (H) 10.9 - CERNER 14.4 % [facility] MPV 11.5 9.0 - 12.0 CERNER fL [facility] Specimen Anatomical Collection Method Collection Time Receive d Time (Source) Location / / Volume Laterality Blood specimen 03/22/2015 3:38 AM 015 3:49 (specimen) EDT AM EDT Resulting Agency Comment Spec In Lab Glen Doyle MD HEMATOLOGY ORDERABLES Performing Organization Address City/[facility]/ZIP [place] [address] [facility] (ABNORMAL) Prothrombin Time (03/22/2015 3:38 AM EDT) P athologist Signature PT 20.0 (H) 12.0 - 15.0 [facility] Comment: Transfusion Committee Guidelines: INR less than 2.0, PTT less than OR equal to 43.5 seconds, or Fibrinogen greater t romero or equal to 100 mg/dl indicate adequate procoagulant activity for hemos tasis in patients without underlying bleeding disorders. INR 1.6 (H) 0.9 - 1.1 [facility] Specimen Anatomical Collection Method Collection Time Receive d Time (Source) Location / / Volume Laterality Blood specimen 03/22/2015 3:38 AM 015 3:49 (specimen) EDT AM EDT Resulting Agency Comment Spec In Lab Glen Doyle MD HEMATOLOGY ORDERABLES Performing Organization Address City/[facility]/ZIP [facility] Phon e Number [address] [facility] (ABNORMAL) Basic Metabolic Panel (non-fasting) (03/22/2015 3:38 AM EDT) P athologist Signature Glucose Lvl 158 65 - 199 CERNER mg/dL MILLENNIUM Comment: Diabetes: >=200 mg/dL plus symp toms BUN 8 8 - 18 mg/dL CERNER MILLENNIUM Creatinine 0.42 (L) 0.70 - 1.20 mg/dL CERNER MILL ENNIUM Comment: Please note that the pediatric reference intervals supplied above were not validated [place] [facility]. Results from pediatri c patients should be [...] - 107 mmol/L CERNER MILLENN IUM CO2 28 22 - 31 mmol/L CERNER MILLENNI UM Anion Gap 11 5 - 15 mmol/L CERNER MILLENNIU M Calcium 7.7 (L) 8.5 - 10.5 mg/dL CERNER KINGSLEY [...] the following links into your internet browser. [email or web address] Specimen Anatomical Collection Method Collection Time Receive d Time (Source) Location / / Volume Laterality Blood specimen 03/22/2015 3:38 AM 015 3:49 (specimen) EDT AM EDT Resulting Agency Comment Spec In Lab Glen Doyle MD CHEMISTRY ORDERABLES Performing Organization Address City/State/ZIP Code Phon e Number [place] [phone] [facility]OS[facility] [address] CERNER MILLENNIUM POCT Glucose (03/22/2015 12:23 AM EDT) athologist Signature POC Glucose 148 65 - 199 CERNER mg/dL MILLENNIUM Comment: Supplemental ranges: <140 mg/dL before meals <180 mg/dL all other times of the day Specimen Anatomical Collection Method Collection Time Receive d Time (Source) Location / / Volume Laterality Blood specimen 03/22/2015 12:23 5 (specimen) AM EDT 12:23 AM EDT Glen Doyle MD POINT OF CARE TEST ORDERABLE S Performing Organization Address City/State/ZIP Code Phon e Number [address] CERNER MILLENNIUM POCT Glucose (03/21/2015 7:09 PM EDT) athologist Signature POC Glucose 172 65 - 199 CERNER mg/dL MILLENNIUM Comment: Supplemental ranges: <140 mg/dL before meals <180 mg/dL all other times of the day Specimen Anatomical Collection Method Collection Time Receive d Time (Source) Location / / Volume Laterality Blood specimen 03/21/2015 7:09 PM 015 7:09 (specimen) EDT PM EDT Glen Doyle MD POINT OF CARE TEST ORDERABLE S Performing Organization Address City/State/ZIP Code Phon e Number [address] CERNER MILLENNIUM POCT Glucose (03/21/2015 4:22 PM EDT) athologist Signature POC Glucose 154 65 - 199 CERNER mg/dL MILLENNIUM Comment: Supplemental ranges: <140 mg/dL before meals <180 mg/dL all other times of the day Specimen Anatomical Collection Method Collection Time Receive d Time (Source) Location / / Volume Laterality Blood specimen 03/21/2015 4:22 PM 015 4:22 (specimen) EDT PM EDT Glen Doyle MD POINT OF CARE TEST ORDERABLE S Performing Organization Address City/State/ZIP Code Phon e Number [address] [facility] Transfuse RBC (03/21/2015 2:14 PM EDT) Glen Doyle MD NURSING TREATMENT ORDERABLES - BLOOD ADMIN Transfuse RBC (03/21/2015 2:14 PM EDT) Glen Doyle MD NURSING TREATMENT ORDERABLES - BLOOD ADMIN POCT Glucose (03/21/2015 11:14 AM EDT) athologist Signature POC Glucose 196 65 - 199 CERNER mg/dL [facility] Comment: Supplemental ranges: <140 mg/dL before meals <180 mg/dL all other times of the day Specimen Anatomical Collection Method Collection Time Receive d Time (Source) Location / / Volume Laterality Blood specimen 03/21/2015 11:14 5 (specimen) AM EDT 11:14 AM EDT Glen Doyle MD POINT OF CARE TEST ORDERABLE S Performing Organization Address City/State/ZIP Code Phon e Number [address] [facility] ABO/Rh Typing (03/21/2015 9:31 AM EDT) athologist Signature ABORh Type A Neg [facility] Specimen Anatomical Collection Method Collection Time Receive d Time (Source) Location / / Volume Laterality Blood specimen Venous Draw / 03/21/2015 9:31 AM 2014 9:44 (specimen) Unknown EDT AM EDT Resulting Agency Comment Spec In Lab Glen Doyle MD BLOOD BANK ORDERABLES Performing Organization Address City/State/ZIP Code Phon e Number [address] [facility] Antibody screen (03/21/2015 9:31 AM EDT) [facility] Method [place] Signature Ab Screen Negative [facility]p [facility] Expires at 03/24/2015 DANIEL [id number] on: [facility] Specimen Anatomical Collection Method Collection Time Receive d Time (Source) Location / / Volume Laterality Blood specimen 03/21/2015 9:31 AM 015 9:44 (specimen) EDT AM EDT Resulting Agency Comment Spec In Lab Glen Doyle MD BLOOD BANK ORDERABLES Performing Organization Address City/[facility]/ZIP Code Phon e Number [address] [facility] EKG 12 Lead (03/21/2015 9:16 AM EDT) Component Value Ref Range Test Analysis Performed Pathologis t Method Time At Signature Ventricular rate 83 BPM MUSE SYSTEM Atrial Rate 83 BPM MUSE SYSTEM P-R Interval 134 ms MUSE SYSTEM QRS Duration 80 ms MUSE SYSTEM Q-T Interval 364 ms MUSE SYSTEM QTC Calculated 427 ms MUSE SYSTEM (Bezet) Calculated P [place] 51 degrees MUSE SYSTEM Calculated R [place] 3 degrees MUSE SYSTEM Calculated T [place] -11 degrees MUSE SYSTEM INTERPRETATION Normal sinus rhythm MUSE SYSTEM Nonspecific ST and T wave abnormality Abnormal ECG When compared with ECG of 16-MAR-2015 11:49, Premature ventricular complexes are no longer Present Inverted T waves have replac ed nonspecific T wave abnormality in Inferior leads Nonspecific T wave abnormality now evident in Anterior leads Confirmed by MD ELEUTERIO, EDGAR ([id number]) on 03/21/2015 8:43:29 PM Specimen Anatomical Collection Method Collection Time Receive d Time (Source) Location / / Volume Laterality 03/21/2015 9:16 AM 5 8:43 EDT PM EDT Glen Doyle MD ECG ORDERABLES Performing Organization Address City/[facility]/ZIP Code Phon e Number MUSE SYSTEM Prepare RBC (03/21/2015 9:05 AM EDT) P athologist Signature Dispensed? Yes [facility] Specimen Anatomical Collection Method Collection Time Receive d Time (Source) Location / / Volume Laterality Blood specimen 03/21/2015 9:05 AM 015 9:04 (specimen) EDT AM EDT Resulting Agency Comment Spec In Lab Glen Doyle MD BLOOD BANK ORDERABLES Performing Organization Address City/State/ZIP [place] [address] [facility] PO[facility] Glucose (03/21/2015 7:00 AM EDT) P athologist Signature POC Glucose 166 65 - 199 CERNER mg/dL [facility] Comment: Supplemental ranges: <140 mg/dL before meals <180 mg/dL all other times of the day Specimen Anatomical Collection Method Collection Time Receive d Time (Source) Location / / Volume Laterality Blood specimen 03/21/2015 7:00 AM 015 7:00 (specimen) EDT AM EDT Glen Doyle MD POINT OF CARE TEST ORDERABLE S Performing Organization Address City/[facility]/ZIP Code Phon e Number [address] CERNER MILLENNIUM (ABNORMAL) APTT (03/21/2015 6:01 AM EDT) P athologist Signature PTT 95 (H) 25 - 35 sec CERNER MILLENNIUM Comment: Recommended therapeutic PTT range for fu ll dose unfractionated heparin is 80-114 seconds. Specimen Anatomical Collection Method Collection Time Receive d Time (Source) Location / / Volume Laterality Blood specimen Venous Draw / 03/21/2015 6:01 AM 2014 6:19 (specimen) Unknown EDT AM EDT Resulting Agency Comment Spec In Lab Glen Doyle MD HEMATOLOGY ORDERABLES Performing Organization Address City/[facility]/ZIP Code Phon e Number [address] CERNER MILLENNIUM (ABNORMAL) Differential, Automated (03/21/2015 6:01 AM EDT) Patholo gist Method Time Signature Neutrophils % 75.1 % CERNER MILLENNIUM Neutr Abs (ANC) 6.66 (H) 1.50 - CERNER 6.30 MILLENNIUM x10(3)/mc L Lymphocytes % 14.1 % CERNER MILLENNIUM Lymphocytes Abs 1.2 1.0 - 3.6 CERNER x10(3)/mc MILLENNIUM L Monocytes % 10.5 % CERNER MILLENNIUM Monocyte Abs 0.9 0.2 - 1.0 CERNER x10(3)/mc MILLENNIUM L [...] Location / / Volume Laterality Blood specimen 03/21/2015 6:01 AM 015 6:19 (specimen) EDT AM EDT Resulting Agency Comment Spec In Lab Glne Doyle MD HEMATOLOGY ORDERABLES Performing Organization Address City/State/ZIP Code Phon e Number [place] [id number]OSP[address] CERNER MILLENNIUM (ABNORMAL) Hemogram (03/21/2015 6:01 AM EDT) P athologist Signature WBC 8.9 4.0 - 10.0 CERNER x10(3)/mcL MILLENNIUM RBC 2.39 (L) 3.93 - CERNER 5.22 MILLENNIUM x10(6)/mcL Hemoglobin 7.6 (L) 11.2 - CERNER 15.7 gm/dL [facility] Hematocrit 22.3 (L) 34.0 - CERNER 45.0 % MILLENNIUM MCV 93.3 79.0 - CERNER 94.0 fL MILLENNIUM MCH 31.8 26.6 - CERNER 32.2 pg MILLENNIUM MCHC 34.1 32.0 - CERNER 36.5 gm/dL [facility]ILL[facility]NIUM Platelets 144 (L) 145 - 370 CERNER x10(3)/mcL MILLENNIUM RDWSD 48.0 (H) 35.0 - CERNER 46.0 fL MILLENNIUM RDWCV 13.9 10.9 - CERNER 14.4 % MILLENNIUM MPV 11.8 9.0 - 12.0 CERNER fL [facility]ILLENNIUM Specimen Anatomical Collection Method Collection Time Receive d Time (Source) Location / / Volume Laterality Blood specimen 03/21/2015 6:01 AM 015 6:19 (specimen) EDT AM EDT Resulting Agency Comment Spec In Lab Glen Doyle MD HEMATOLOGY ORDERABLES Performing Organization Address City/[facility]/ZIP Code Phon e Number [address] CERNER MILLENNIUM (ABNORMAL) Prothrombin Time (03/21/2015 6:01 AM EDT) athologist Signature PT 26.9 (H) 12.0 - 15.0 CERNER sec [facility]NI[facility] Comment: Transfusion Committee Guidelines: INR less than 2.0, PTT less than OR equal to 43.5 seconds, or Fibrinogen greater t romero or equal to 100 mg/dl indicate adequate procoagulant activity for hemos tasis in patients without underlying bleeding disorders. INR 2.4 (H) 0.9 - 1.1 CERNER MILLENNIUM Specimen Anatomical Collection Method Collection Time Receive d Time (Source) Location / / Volume Laterality Blood specimen 03/21/2015 6:01 AM 015 6:19 (specimen) EDT AM EDT Resulting Agency Comment Spec In Lab Glen Doyle MD HEMATOLOGY ORDERABLES Performing Organization Address City/[facility]/ZIP Code Phon e Number [address] [facility] (ABNORMAL) Basic Metabolic Panel (non-fasting) (03/21/2015 6:01 AM EDT) P athologist Signature Glucose Lvl 173 65 - 199 CERNER mg/dL [facility] Comment: Diabetes: >=200 mg/dL plus symp toms BUN 5 (L) 8 - 18 mg/dL CERNER MILLENNIUM Creatinine 0.41 (L) 0.70 - 1.20 mg/dL CERNER MILL ENNIUM Comment: Please note that the pediatric reference intervals supplied above were not validated at [facility]. Results from pediatri c patients should be [...] the following links into your internet browser. [email or web address] [email or web address] Specimen Anatomical Collection Method Collection Time Receive d Time (Source) Location / / Volume Laterality Blood specimen 03/21/2015 6:01 AM 015 6:19 (specimen) EDT AM EDT Resulting Agency Comment Spec In Lab Glen Doyle MD CHEMISTRY ORDERABLES Performing Organization Address City/[facility]/ZIP [place] [address] CERNER MILLENNIUM POCT Glucose (03/21/2015 4:18 AM EDT) athologist Signature POC Glucose 193 65 - 199 CERNER mg/dL [facility] Comment: Supplemental ranges: <140 mg/dL before meals <180 mg/dL all other times of the day Specimen Anatomical Collection Method Collection Time Receive d Time (Source) Location / / Volume Laterality Blood specimen 03/21/2015 4:18 AM 015 4:18 (specimen) EDT AM EDT Glen Doyle MD POINT OF CARE TEST ORDERABLE S Performing Organization Address City/[facility]/ZIP [place] [address] CERNER MILLENNIUM POCT Glucose (03/20/2015 11:52 PM EDT) athologist Signature POC Glucose 172 65 - 199 CERNER mg/dL [facility] Comment: Supplemental ranges: <140 mg/dL before meals <180 mg/dL all other times of the day Specimen Anatomical Collection Method Collection Time Receive d Time (Source) Location / / Volume Laterality Blood specimen 03/20/2015 11:52 5 (specimen) PM EDT 11:52 PM EDT Glen Doyle MD POINT OF CARE TEST ORDERABLE S Performing Organization Address City/State/ZIP Code Phon e Number [address] CERNER MILLENNIUM (ABNORMAL) APTT (03/20/2015 11:52 PM EDT) athologist Signature PTT 88 (H) 25 - 35 sec CERNER MILLENNIUM Comment: Recommended therapeutic PTT range for fu ll dose unfractionated heparin is 80-114 seconds. Specimen Anatomical Collection Method Collection Time Receive d Time (Source) Location / / Volume Laterality Blood specimen 03/20/2015 11:52 5 (specimen) PM EDT 11:56 PM EDT Resulting Agency Comment Spec In Lab Glen Doyle MD HEMATOLOGY ORDERABLES Performing Organization Address City/State/ZIP Code Phon e Number [address] CERNER MILLENNIUM POCT Glucose (03/20/2015 6:59 PM EDT) athologist Signature POC Glucose 193 65 - 199 CERNER mg/dL [facility] Comment: Supplemental ranges: <140 mg/dL before meals <180 mg/dL all other times of the day Specimen Anatomical Collection Method Collection Time Receive d Time (Source) Location / / Volume Laterality Blood specimen 03/20/2015 6:59 PM 015 6:59 (specimen) EDT PM EDT Glen Doyle MD POINT OF CARE TEST ORDERABLE S Performing Organization Address City/State/ZIP [place] [address] [facility]ER [facility] (ABNORMAL) APTT (03/20/2015 6:01 PM EDT) P athologist Signature PTT 94 (H) 25 - 35 sec CERNER MILLENNIUM Comment: Recommended therapeutic PTT range for fu ll dose unfractionated heparin is 80-114 seconds. Specimen Anatomical Collection Method Collection Time Receive d Time (Source) Location / / Volume Laterality Blood specimen 03/20/2015 6:01 PM 015 6:11 (specimen) EDT PM EDT Resulting Agency Comment Spec In Lab Glen Doyle MD HEMATOLOGY ORDERABLES Performing Organization Address City/State/ZIP Code Phon e Number [address] [facility] POCT Glucose (03/20/2015 4:28 PM EDT) athologist Signature POC Glucose 184 65 - 199 CERNER mg/dL [facility] Comment: Supplemental ranges: <140 mg/dL before meals <180 mg/dL all other times of the day Specimen Anatomical Collection Method Collection Time Receive d Time (Source) Location / / Volume Laterality Blood specimen 03/20/2015 4:28 PM 015 4:28 (specimen) EDT PM EDT Glen Doyle MD POINT OF CARE TEST ORDERABLE S Performing Organization Address City/[facility]/ZIP Code Phon e Number [address] [facility] APTT (03/20/2015 11:46 AM EDT) athologist Signature PTT 137 25 - 35 CERNER (Critical) sec IUM Comment: Called by: ANDRESSA, Read back by: SWATHI CARNEY_ , Date/Time:_03/20/15 12:27. Recommended therapeutic PTT range for fu ll dose unfractionated heparin is 80-114 seconds. Specimen Anatomical Collection Method Collection Time Receive d Time (Source) Location / / Volume Laterality Blood specimen 03/20/2015 11:46 5 (specimen) AM EDT 11:50 AM EDT Resulting Agency Comment Spec In Lab Glen Doyle MD HEMATOLOGY ORDERABLES Performing Organization Address City/State/[place]IP [place] [address] CERNER MILLENNIUM (ABNORMAL) POCT Glucose (03/20/2015 11:31 AM EDT) athologist Signature POC Glucose 204 (H) 65 - 199 CERNER mg/dL [facility] Comment: Supplemental ranges: <140 mg/dL before meals <180 mg/dL all other times of the day Specimen Anatomical Collection Method Collection Time Receive d Time (Source) Location / / Volume Laterality Blood specimen 03/20/2015 11:31 5 (specimen) AM EDT 11:31 AM EDT Glen Doyle MD POINT OF CARE TEST ORDERABLE S Performing Organization Address City/[facility]/ZIP [place] [address] CERNER MILLENNIUM (ABNORMAL) Prothrombin Time (03/20/2015 6:02 AM EDT) athologist Signature PT 23.9 (H) 12.0 - 15.0 CERNER sec MILLENNIUM Comment: Transfusion Committee Guidelines: INR less than 2.0, PTT less than OR equal to 43.5 seconds, or Fibrinogen greater t romero or equal to 100 mg/dl indicate adequate procoagulant activity for hemos tasis in patients without underlying bleeding disorders. INR 2.1 (H) 0.9 - 1.1 CERNER MILLENNIUM Specimen Anatomical Collection Method Collection Time Receive d Time (Source) Location / / Volume Laterality Blood specimen Venous Draw / 03/20/2015 6:02 AM 2014 6:10 (specimen) Unknown EDT AM EDT Resulting Agency Comment Spec In Lab Glen Doyle MD HEMATOLOGY ORDERABLES Performing Organization Address City/State/ZIP [place] [address] CERNER MILLENNIUM (ABNORMAL) APTT (03/20/2015 6:02 AM EDT) P athologist Signature PTT 90 (H) 25 - 35 sec CERNER MILLENNIUM Comment: Recommended therapeutic PTT range for fu ll dose unfractionated heparin is 80-114 seconds. Specimen Anatomical Collection Method Collection Time Receive d Time (Source) Location / / Volume Laterality Blood specimen 03/20/2015 6:02 AM 015 6:10 (specimen) EDT AM EDT Resulting Agency Comment Spec In Lab Glen Doyle MD HEMATOLOGY ORDERABLES Performing Organization Address City/State/ZIP [place] [address] CERNER MILLENNIUM (ABNORMAL) Differential, Automated (03/20/2015 6:02 AM EDT) [facility] Method Time Signature Neutrophils % 73.6 % CERNER MILLENNIUM Neutr Abs (ANC) 8.61 (H) 1.50 - CERNER 6.30 MILLENNIUM x10(3)/mc L Lymphocytes % 12.5 % CERNER MILLENNIUM Lymphocytes Abs 1.5 1.0 - 3.6 CERNER x10(3)/mc MILLENNIUM L Monocytes % 13.4 % CERNER MILLENNIUM Monocyte Abs 1.6 (H) 0.2 - 1.0 CERNER x10(3)/mc MILLENNIUM L Eosinophils % 0.0 % CERNER MILLENNIUM Eosinophils Abs 0.0 0.0 [...] Location / / Volume Laterality Blood specimen 03/20/2015 6:02 AM 015 6:10 (specimen) EDT AM EDT Resulting Agency Comment Spec In Lab Glen Doyle MD HEMATOLOGY ORDERABLES Performing Organization Address City/[facility]/ZIP [place] [address] CERNER MILLENNIUM (ABNORMAL) Hemogram (03/20/2015 6:02 AM EDT) P athologist Signature WBC 11.7 (H) 4.0 - 10.0 CERNER x10(3)/mcL MILLENNIUM RBC 2.72 (L) 3.93 - CERNER 5.22 MILLENNIUM x10(6)/mcL Hemoglobin 8.7 (L) 11.2 - CERNER 15.7 gm/dL MILLENNIUM Hematocrit 25.1 (L) 34.0 - CERNER 45.0 % MILLENNIUM MCV 92.3 79.0 - CERNER 94.0 fL MILLENNIUM MCH 32.0 26.6 - CERNER 32.2 pg MILLENNIUM MCHC 34.7 32.0 - CERNER 36.5 gm/dL MILLENNIUM Platelets 166 145 - 370 CERNER x10(3)/mcL MILLENNIUM RDWSD 46.3 (H) 35.0 - CERNER 46.0 fL MILLENNIUM RDWCV 13.9 10.9 - CERNER 14.4 % MILLENNIUM MPV 11.6 9.0 - 12.0 CERNER fL MILLENNIUM Specimen Anatomical Collection Method Collection Time Receive d Time (Source) Location / / Volume Laterality Blood specimen 03/20/2015 6:02 AM 015 6:10 (specimen) EDT AM EDT Resulting Agency Comment Spec In Lab Geln Doyle MD HEMATOLOGY ORDERABLES Performing Organization Address City/[facility]/ZIP [place] [address] CERNER MILLENNIUM (ABNORMAL) Basic Metabolic Panel (non-fasting) (03/20/2015 6:02 AM EDT) P athologist Signature Glucose Lvl 178 65 - 199 CERNER mg/dL [facility] Comment: Diabetes: >=200 mg/dL plus symp toms BUN 5 (L) 8 - 18 mg/dL CERNER MILLENNIUM Creatinine 0.42 (L) 0.70 - 1.20 mg/dL CERNER MILL ENNIUM Comment: Please note that the pediatric reference intervals supplied above were not validated at [facility]. Results from pediatri c patients should be interpreted in conjunction to the patient's age, height and muscle mass. Sodium 137 135 - 145 mmol/L CERNER KINGSLEY NIUM Potassium 3.2 (L) 3.5 - 5.0 mmol/L CERNER KINGSLEY [...] the following links into your internet browser. [email or web address] [email or web address] Specimen Anatomical Collection Method Collection Time Receive d Time (Source) Location / / Volume Laterality Blood specimen 03/20/2015 6:02 AM 015 6:10 (specimen) EDT AM EDT Resulting Agency Comment Spec In Lab Glen Doyle MD CHEMISTRY ORDERABLES Performing Organization Address City/State/[place] [address] CERNER MILLENNIUM POCT Glucose (03/20/2015 5:51 AM EDT) athologist Signature POC Glucose 192 65 - 199 CERNER mg/dL [facility] Comment: Supplemental ranges: <140 mg/dL before meals <180 mg/dL all other times of the day Specimen Anatomical Collection Method Collection Time Receive d Time (Source) Location / / Volume Laterality Blood specimen 03/20/2015 5:51 AM 015 5:51 (specimen) EDT AM EDT Glen Doyle MD POINT OF CARE TEST ORDERABLE S Performing Organization Address City/State/ZIP [place] [address] CERNER MILLENNIUM POCT Glucose (03/20/2015 1:53 AM EDT) P athologist Signature POC Glucose 176 65 - 199 CERNER mg/dL [facility] Comment: Supplemental ranges: <140 mg/dL before meals <180 mg/dL all other times of the day Specimen Anatomical Collection Method Collection Time Receive d Time (Source) Location / / Volume Laterality Blood specimen 03/20/2015 1:53 AM 015 1:53 (specimen) EDT AM EDT Glen Doyle MD POINT OF CARE TEST ORDERABLE S Performing Organization Address City/[facility]/ZIP Code Phon e Number [address] CERNER MILLENNIUM (ABNORMAL) APTT (03/19/2015 10:27 PM EDT) P athologist Signature PTT 69 (H) 25 - 35 sec CERNER MILLENNIUM Comment: Recommended therapeutic PTT range for fu ll dose unfractionated heparin is 80-114 seconds. Specimen Anatomical Collection Method Collection Time Receive d Time (Source) Location / / Volume Laterality Blood specimen 03/19/2015 10:27 5 (specimen) PM EDT 10:32 PM EDT Resulting Agency Comment Spec In Lab Glen Doyle MD HEMATOLOGY ORDERABLES Performing Organization Address City/State/ZIP Code Phon e Number [address] CERNER MILLENNIUM POCT Glucose (03/19/2015 9:27 PM EDT) P athologist Signature POC Glucose 171 65 - 199 CERNER mg/dL [facility] Comment: Supplemental ranges: <140 mg/dL before meals <180 mg/dL all other times of the day Specimen Anatomical Collection Method Collection Time Receive d Time (Source) Location / / Volume Laterality Blood specimen 03/19/2015 9:27 PM 015 9:27 (specimen) EDT PM EDT Glen Doyle MD POINT OF CARE TEST ORDERABLE S Performing Organization Address City/[facility]/ZIP [place] [address] CERNER MILLENNIUM POCT Glucose (03/19/2015 5:37 PM EDT) athologist Signature POC Glucose 151 65 - 199 CERNER mg/dL [facility] Comment: Supplemental ranges: <140 mg/dL before meals <180 mg/dL all other times of the day Specimen Anatomical Collection Method Collection Time Receive d Time (Source) Location / / Volume Laterality Blood specimen 03/19/2015 5:37 PM 015 5:37 (specimen) EDT PM EDT Glen Doyle MD POINT OF CARE TEST ORDERABLE S Performing Organization Address City/[facility]/ZIP Code Phon e Number [address] CERNER MILLENNIUM (ABNORMAL) APTT (03/19/2015 2:44 PM EDT) athologist Signature PTT >160.0 25 - 35 CERNER (Critical) [facility] Comment: Called by: , Read back by: maxine dwyer nd/3W, Date/Time: 03/19/15 15:23. Recommended therapeutic PTT range for fu ll dose unfractionated heparin is 80-114 seconds. Specimen Anatomical Collection Method Collection Time Receive d Time (Source) Location / / Volume Laterality Blood specimen 03/19/2015 2:44 PM 015 2:53 (specimen) EDT PM EDT Resulting Agency Comment Spec In Lab Glen Doyle MD HEMATOLOGY ORDERABLES Performing Organization Address City/[facility]/ZIP Code Phon e Number [address] CERNER MILLENNIUM POCT Glucose (03/19/2015 1:28 PM EDT) athologist Signature POC Glucose 178 65 - 199 CERNER mg/dL [facility] Comment: Supplemental ranges: <140 mg/dL before meals <180 mg/dL all other times of the day Specimen Anatomical Collection Method Collection Time Receive d Time (Source) Location / / Volume Laterality Blood specimen 03/19/2015 1:28 PM 015 1:28 (specimen) EDT PM EDT Glen Doyle MD POINT OF CARE TEST ORDERABLE S Performing Organization Address City/[facility]/ZIP Code Phon e Number [address] [facility] MILL[facility] POCT Glucose (03/19/2015 9:42 AM EDT) athologist Signature POC Glucose 136 65 - 199 CERNER mg/dL [facility] Comment: Supplemental ranges: <140 mg/dL before meals <180 mg/dL all other times of the day Specimen Anatomical Collection Method Collection Time Receive d Time (Source) Location / / Volume Laterality Blood specimen 03/19/2015 9:42 AM 015 9:42 (specimen) EDT AM EDT Glen Doyle MD POINT OF CARE TEST ORDERABLE S Performing Organization Address City/[facility]/ZIP Code Phon e Number [address] CERNER MILLENNIUM (ABNORMAL) Prothrombin Time (03/19/2015 9:05 AM EDT) athologist Signature PT 15.2 (H) 12.0 - 15.0 [facility] Comment: Transfusion Committee Guidelines: INR less than 2.0, PTT less than OR equal to 43.5 seconds, or Fibrinogen greater t romero or equal to 100 mg/dl indicate adequate procoagulant activity for hemos tasis in patients without underlying bleeding disorders. INR 1.2 (H) 0.9 - 1.[address] [facility] Specimen Anatomical Collection Method Collection Time Receive d Time (Source) Location / / Volume Laterality Blood specimen Venous Draw / 03/19/2015 9:05 AM 2014 9:26 (specimen) Unknown EDT AM EDT Resulting Agency Comment Spec In Lab Glen Doyle MD HEMATOLOGY ORDERABLES Performing Organization Address City/[facility]/ZIP Code Phon e Number [address] CERNER MILLENNIUM (ABNORMAL) APTT (03/19/2015 9:05 AM EDT) P athologist Signature PTT 43 (H) 25 - 35 sec CERNER MILLENNIUM Comment: Recommended therapeutic PTT range for fu ll dose unfractionated heparin is 80-114 seconds. Specimen Anatomical Collection Method Collection Time Receive d Time (Source) Location / / Volume Laterality Blood specimen 03/19/2015 9:05 AM 015 9:26 (specimen) EDT AM EDT Resulting Agency Comment Spec In Lab Glen Doyle MD HEMATOLOGY ORDERABLES Performing Organization Address [facility]/ZIP [place] [address] CERNER MILLENNIUM (ABNORMAL) Basic Metabolic Panel (non-fasting) (03/19/2015 9:05 AM EDT) P athologist Signature Glucose Lvl 160 65 - 199 CERNER mg/dL [facility]ILLENNIUM Comment: Diabetes: >=200 mg/dL plus symp toms BUN 6 (L) 8 - 18 mg/dL CERNER MILLENNIUM Creatinine 0.50 (L) 0.70 - 1.20 mg/dL CERNER MILL ENNIUM Comment: Please note that the pediatric reference intervals supplied above were not validated at [facility] [place]iat[place] patients should be [...] 31 mmol/L CERNER MILLENNI UM Anion Gap 9 5 - 15 mmol/L CERNER MILLENNIU M Calcium 7.5 (L) 8.5 - 10.5 mg/dL DANIEL KINGSLEY NIUM Comment: result rechecked-tb Estimated GFR >60 >=60 CERNER CAPOENNIU M Comment: This estimated GFR (eGFR) value [...] the following links into your internet browser. [email or web address] Specimen Anatomical Collection Method Collection Time Receive d Time (Source) Location / / Volume Laterality Blood specimen 03/19/2015 9:05 AM 015 9:26 (specimen) EDT AM EDT Resulting Agency Comment Spec In Lab Glen Doyle MD CHEMISTRY ORDERABLES Performing Organization Address City/State/ZIP Code Phon e Number [address] CERNER MILLENNIUM POCT Glucose (03/19/2015 4:31 AM EDT) P athologist Signature POC Glucose 190 65 - 199 CERNER mg/dL [facility] Comment: Supplemental ranges: <140 mg/dL before meals <180 mg/dL all other times of the day Specimen Anatomical Collection Method Collection Time Receive d Time (Source) Location / / Volume Laterality Blood specimen 03/19/2015 4:31 AM 015 4:31 (specimen) EDT AM EDT Glen Doyle MD POINT OF CARE TEST ORDERABLE S Performing Organization Address City/[facility]/ZIP Code Phon e Number [address] CERNER MILLENNIUM (ABNORMAL) Differential, Automated (03/19/2015 2:35 AM EDT) Patholo gist Method Time Signature Neutrophils % 89.0 % CERNER MILLENNIUM Neutr Abs (ANC) 12.88 (H) 1.50 - CERNER 6.30 MILLENNIUM x10(3)/mc L Lymphocytes % 4.9 % CERNER MILLENNIUM Lymphocytes Abs 0.7 (L) 1.0 - 3.6 CERNER x10(3)/mc MILLENNIUM L Monocytes % 5.9 % CERNER MILLENNIUM Monocyte Abs 0.9 0.2 - 1.0 CERNER x10(3)/mc MILLENNIUM L Eosinophils % 0.0 % CERNER MILLENNIUM Eosinophils Abs 0.0 0.0 - 0.5 CERNER x10(3)/mc MILLENNIUM L Basophils % 0.0 % CERNER MILLENNIUM Basophils Abs 0.0 0.0 [...] Location / / Volume Laterality Blood specimen 03/19/2015 2:35 AM 015 2:42 (specimen) EDT AM EDT Resulting Agency Comment Spec In Lab Glen Doyle MD HEMATOLOGY ORDERABLES Performing Organization Address City/State/[place] [address] CERNER MILLENNIUM (ABNORMAL) Hemogram (03/19/2015 2:35 AM EDT) P athologist Signature WBC 14.5 (H) 4.0 - 10.0 CERNER x10(3)/mcL MILLENNIUM RBC 3.25 (L) 3.93 - CERNER 5.22 MILLENNIUM x10(6)/mcL Hemoglobin 10.4 (L) 11.2 - CERNER 15.7 gm/dL MILLENNIUM Hematocrit 30.5 (L) 34.0 - CERNER 45.0 % ENNIUM MCV 93.8 79.0 - CERNER 94.0 fL [facility] MCH 32.0 26.6 - CERNER 32.2 pg ENNIUM MCHC 34.1 32.0 - CERNER 36.5 gm/dL [facility] Platelets 187 145 - 370 CERNER x10(3)/mcL [facility] RDWSD 47.4 (H) 35.0 - CERNER 46.0 fL [facility] RDWCV 13.8 10.9 - CERNER 14.4 % ENNIUM MPV 11.4 9.0 - 12.0 CERNER fL [facility] Specimen Anatomical Collection Method Collection Time Receive d Time (Source) Location / / Volume Laterality Blood specimen 03/19/2015 2:35 AM 015 2:42 (specimen) EDT AM EDT Resulting Agency Comment Spec In Lab Glen Doyle MD HEMATOLOGY ORDERABLES Performing Organization Address City/State/[place]IP [place] [address] [facility] ([facility]) APTT (03/19/2015 2:35 AM EDT) P athologist Signature PTT 41 (H) 25 - [address] [facility] Comment: Recommended therapeutic PTT range for fu ll dose unfractionated heparin is 80-114 seconds. Specimen Anatomical Collection Method Collection Time Receive d Time (Source) Location / / Volume Laterality Blood specimen 03/19/2015 2:35 AM 015 2:42 (specimen) EDT AM EDT Resulting Agency Comment Spec In Lab Glen Doyle MD HEMATOLOGY ORDERABLES Performing Organization Address City/State/[place] [address] [facility] POCT Glucose (03/19/2015 1:38 AM EDT) P athologist Signature POC Glucose 197 65 - 199 [facility] mg/dL [facility] Comment: Supplemental ranges: <140 mg/dL before meals <180 mg/dL all other times of the day Specimen Anatomical Collection Method Collection Time Receive d Time (Source) Location / / Volume Laterality Blood specimen 03/19/2015 1:38 AM 015 1:38 (specimen) EDT AM EDT Glen Doyle MD POINT OF CARE TEST ORDERABLE S Performing Organization Address City/State/[place] [address] CERNER MILLENNIUM (ABNORMAL) Hemogram (03/18/2015 11:10 PM EDT) athologist Signature WBC 14.2 (H) 4.0 - 10.0 CERNER x10(3)/mcL MILLENNIUM RBC 3.19 (L) 3.93 - CERNER 5.22 MILLENNIUM x10(6)/mcL Hemoglobin 10.3 (L) 11.2 - CERNER 15.7 gm/dL MILLENNIUM Hematocrit 29.6 (L) 34.0 - CERNER 45.0 % MILLENNIUM MCV 92.8 79.0 - CERNER 94.0 fL MILLENNIUM MCH 32.3 (H) 26.6 - CERNER 32.2 pg MILLENNIUM MCHC 34.8 32.0 - CERNER 36.5 gm/dL MILLENNIUM Platelets 191 145 - 370 CERNER x10(3)/mcL MILLENNIUM RDWSD 46.0 35.0 - CERNER 46.0 fL MILLENNIUM RDWCV 13.7 10.9 - CERNER 14.4 % MILLENNIUM MPV 11.4 9.0 - 12.0 CERNER fL MILLENNIUM Specimen Anatomical Collection Method Collection Time Receive d Time (Source) Location / / Volume Laterality Blood specimen 03/18/2015 11:10 5 (specimen) PM EDT 11:18 PM EDT Resulting Agency Comment Spec In Lab Glen Doyle MD HEMATOLOGY ORDERABLES Performing Organization Address City/State/[place]IP [place] [address] CERNER MILLENNIUM POCT Glucose (03/18/2015 7:52 PM EDT) P athologist Signature POC Glucose 132 65 - 199 CERNER mg/dL MILLENNIUM Comment: Supplemental ranges: <140 mg/dL before meals <180 mg/dL all other times of the day Specimen Anatomical Collection Method Collection Time Receive d Time (Source) Location / / Volume Laterality Blood specimen 03/18/2015 7:52 PM 015 7:52 (specimen) EDT PM EDT Glen Doyle MD POINT OF CARE TEST ORDERABLE S Performing Organization Address City/State/[place] [address] CERNER MILLENNIUM APTT (03/18/2015 7:42 PM EDT) P athologist Signature PTT 31 25 - 35 sec CERNER MILLENNIUM Comment: Recommended therapeutic PTT range for fu ll dose unfractionated heparin is 80-114 seconds. Specimen Anatomical Collection Method Collection Time Receive d Time (Source) Location / / Volume Laterality Blood specimen 03/18/2015 7:42 PM 015 7:53 (specimen) EDT PM EDT Resulting Agency Comment Spec In Lab Glen Doyle MD HEMATOLOGY ORDERABLES Performing Organization Address City/[facility]/[place]IP [place] [address] CERNER MILLENNIUM (ABNORMAL) Hemogram (03/18/2015 7:42 PM EDT) P athologist Signature WBC 10.7 (H) 4.0 - 10.0 CERNER x10(3)/mcL MILLENNIUM RBC 2.99 (L) 3.93 - CERNER 5.22 MILLENNIUM x10(6)/mcL Hemoglobin 9.6 (L) 11.2 - CERNER 15.7 gm/dL MILLENNIUM Comment: Called by BHAVESH to Karen Sotomayor ins-PACU on 03-18-2015 20:13 Hematocrit 27.5 (L) 34.0 - 45.0 % CERNER MILLENNI UM MCV 92.0 79.0 - 94.0 fL CERNER MILLENNI UM MCH 32.1 26.6 - 32.2 pg CERNER MILLENNI UM MCHC 34.9 32.0 - 36.5 gm/dL CERNER MILLE NNIUM Platelets 178 145 - 370 x10(3)/mcL CERNER [place] LLENNIUM RDWSD 45.8 35.0 - 46.0 fL CERNER MILLENNI UM RDWCV 13.8 10.9 - 14.4 % CERNER MILLENNIU M MPV 11.2 9.0 - 12.0 fL CERNER MILLENNIU M Specimen Anatomical Collection Method Collection Time Receive d Time (Source) Location / / Volume Laterality Blood specimen 03/18/2015 7:42 PM 015 7:53 (specimen) EDT PM EDT Resulting Agency Comment Spec In Lab Glen Doyle MD HEMATOLOGY ORDERABLES Performing Organization Address City/State/[place] [address] CERNER MILLENNIUM (ABNORMAL) BLOOD GAS 2 ARTERIAL (03/18/2015 2:24 PM EDT) Analysis Performed At Patho logist Time Signature pH Art 7.45 CERNER MILLENNIUM pCO2 Art 32 (L) mmHg CERNER MILLENNIUM pO2 Art 339 (H) mmHg CERNER MILLENNIUM HCO3 Art 21.7 mmol/L CERNER MILLENNIUM BE Art -2.3 mmol/L CERNER MILLENNIUM Hgb Blood Gas 12.3 gm/dL CERNER MILLENNIUM O2HB Art 98.6 (H) % CERNER MILLENNIUM COHB Art 1.0 % CERNER MILLENNIUM Comment: Nonsmokers: 0.5-1.5% COHB Smokers: Variable, but usually less than 10% Toxic: 20-30% COHB Lethal: Greater than 60% COHB METHB Art 0.3 % CERNER MILLENNIUM Na Whole Blood 138 mmol/L [facility] K Whole Blood 3.2 (L) mmol/L CERNER MILLENNIU M Comment: Please note: Patients with WBC >100,000 may have falsely elevated Potassium levels. Contact the Clinical Chemistry L aboratory if there are any questions. ICa Whole Blood 1.14 (L) mmol/L CERNER MILLENN IUM Comment: Note: ??Total bilirubin higher than 20 m g/dL may lead to falsely low ionized calcium. CL Whole Blood 107 mmol/L CERNER MILLENNI UM Gluc Whole Bld 127 mg/dL CERNER MILLENNI UM Comment: Diabetes: >=200 mg/dL plus symp toms. FIO2 Art 67 % CERNER MILLENNIUM Flow Art 1.3 LPM CERNER MILLENNIUM PF Ratio Art 506 CERNER MILLENNIUM Temp Art 36.1 Celsius [facility] YillioIUM Specimen Anatomical Collection Method Collection Time Receive d Time (Source) Location / / Volume Laterality Blood specimen 03/18/2015 2:24 PM 015 2:24 (specimen) EDT PM EDT Glen Doyle MD CHEMISTRY ORDERABLES Performing Organization Address City/State/[place] [address] CERPILI SCANLONENNIUM Unilat Bypass Graft Assess (03/18/2015 1:42 PM EDT) Component Value Ref Test Analysis Performed At [facility] Range Method Time Signature VB Text VASCUBASE Report Department: Vascular Surgery Lab Patient: [id number] (CHAN PERRY) CPT Code: 43874 ICD-9: 443.89 Referring Physician: GLEN DOYLE Indication: ??Intraoperative duplex of left Fem-Per bpg ICD9 Diagnosis Code: 443.89 Findings: Inflow Artery, Left ? PSV (cm/s): 52 ? EDV: 10 ? Location: Common Femoral Artery, Left Inflow Anastomosis, Left ? Location: Common Femoral Artery, Left Proximal Graft, Left ? PSV (cm/s): 92 ? EDV: 9 Outflow Anastomosis, Left ? PSV (cm/s): 93 ? EDV: 9 ? Location: Left Peroneal Superficial Femoral Artery, Proximal, Left ? PSV (cm/s): 52 ? EDV: 10 Peroneal Artery, Mid, Left ? PSV (cm/s): 77 ? EDV: 8 Outflow Artery (Graft), Left ? PSV (cm/s): 77 ? EDV: 8 ? Location: Left Peroneal Interpretation: Widely patent left Fem-Per bpg, with n o significant stenosis identified where imaged. Normal velocities and e nd diastolic flow identified. Electronically Signed by: NATANAEL NUÑEZ on 2015-03-21 11:13: 28 PM VB Text End of Report VASCUBASE Report Specimen (Source) Anatomical Collection Method Collection Time Re ceived Time Location / / Volume Laterality 03/18/2015 1:42 PM EDT Glen Doyle MD VASCULAR ORDERABLES Performing Organization Address City/State/ZIP Code Phon e Number VASCUBASE POCT Glucose (03/18/2015 10:42 AM EDT) athologist Signature POC Glucose 144 65 - 199 CERNER mg/dL [facility] Comment: Supplemental ranges: <140 mg/dL before meals <180 mg/dL all other times of the day Specimen Anatomical Collection Method Collection Time Receive d Time (Source) Location / / Volume Laterality Blood specimen 03/18/2015 10:42 5 (specimen) AM EDT 10:42 AM EDT Glen Doyle MD POINT OF CARE TEST ORDERABLE S Performing Organization Address City/State/ZIP [place] [address] [facility] documented in this encounter Visit Diagnoses Diagnosis Claudication Peripheral vascular disease, unspecified PAD (peripheral artery disease) Peripheral vascular disease, unspecified documented in this encounter Administered Medications Inactive Administered Medications - up to 3 most recent administrations Medication Order MAR Action Action Date Dose Rate Site acetaminophen (TYLENOL) tablet 500 Given 03/20/2015 8:37 AM EDT 500 mg mg 500 mg, Oral, EVERY 4 HOURS PRN, Starting on 03/19/15 at 0144, Until 03/20/15 at 1054, Pain, Fever, Maximum dose of acetaminophen is 4000 mg from all sources in 24 hours., Routine acetaminophen (TYLENOL) tablet 500 mg Given 03/24/2015 11:26 AM EDT 500 mg 500 mg, Oral, EVERY 4 HOURS, First dose (after last modification) on 03/20/15 at 1200, Until Discontinued, Maximum dose of acetaminophen is 4000 mg from all sources in 24 hours., Routine Given 03/24/2015 8:19 AM EDT 500 mg Given 03/24/2015 4:48 AM EDT 500 mg aspirin chewable tablet 81 mg Given 03/18/2015 10:55 AM EDT 81 mg 81 mg, Oral, ONCE PRN, 1 dose, Starting on 03/18/15 at 1021, Until 03/18/15 at 1055, If not already taken on day of surgery., Day of Surgery (Day of Procedure), Routine aspirin EC tablet 81 mg Given 03/24/2015 8:20 AM EDT 81 mg 81 mg, Oral, DAILY, First dose on 03/19/15 at 0900, Until Discontinued, Routine Given 03/23/2015 8:20 AM EDT 81 mg Given 03/22/2015 9:28 AM EDT 81 mg bisacodyl (DULCOLAX) EC tablet 10 mg Given 03/24/2015 8:16 AM EDT 10 mg 10 mg, Oral, DAILY, First dose on 03/22/15 at 2000, Until Discontinued, Administer if needed per patient's routine or if no bowel movement within 48 hours to achieve: 1) One bowel movement at least every 48 hours, AND 2) Without straining. If multiple bowel medications ordered, consider adding bisacodyl if polyethylene glycol (MIRALAX) and lactulose not sufficient., Routine Given 03/23/2015 8:19 AM EDT 10 mg Given 03/22/2015 8:25 PM EDT 10 mg ceFAZolin (ANCEF) 1g in dextrose 5% Given 03/18/2015 9:57 PM EDT 1,000 mg 100 mL/hr 50mL 1,000 mg (1 g), Intravenous, EVERY 8 HOURS, 3 doses, First dose on Sat03/18/15 at 2000, Last dose on Sat03/19/15 at 1200, Administer over 30 Minutes, Redose after 4 hours, PACU Recovery, Indication for (Active or Suspected): Prophylaxis ceFAZolin (ANCEF) 2g in dextrose 5% 50 Given 03/19/2015 5:47 PM EDT 2 g 100 mL/hr mL 2 g, Intravenous, EVERY 8 HOURS, 3 doses, First dose on Sat03/19/15 at 0200, Last dose on Sat03/19/15 at 1800, Administer over 30 Minutes, Redose after 4 hours., Indication for (Active or Suspected): Prophylaxis Given 03/19/2015 9:57 AM EDT 2 g 100 mL/hr Given 03/19/2015 3:17 AM EDT 2 g 100 mL/hr furosemide (LASIX) injection 20 mg Given 03/21/2015 2:59 PM EDT 20 mg 20 mg, Intravenous, ONCE, 1 dose, On 03/21/15 at 1230, Please inject once PRBC transfusion is complete heparin (porcine) injection 1,800-3,600 Given 03/19/20 11:17 AM EDT 3,600 Units Units 1,800-3,600 Units, Intravenous, BOLUS PER HEPARIN PROTOCOL, Starting on 03/19/15 at 1039, Until Sat03/21/15 at 0857, Per Protocol, Adjust to dosing chart, Patient Weight 50-54 kg aPTT less than 60 seconds - 3,600 units aPTT 60-79 seconds - 1,800 units aPTT 80-114 seconds - no bolus Repeat aPTT 6 hours after initiating heparin. Then 6 hours after each dose adjustment. When 2 consecutive aPTT within target range of 80 - 114 seconds, change aPTT to once every 24 hours with A.M. labs while on heparin., RN to order required aPTT - Per Protocol, Routine heparin 25,000 units in New Bag 03/18/2015 8:56 PM EDT 500 Units/h r 10 mL/hr dextrose 5% 500 mL infusion 500 Units/hr (10 mL/hr), Intravenous, CONTINUOUS, Starting on Sat03/18/15 at 2000, Until Sat03/19/15 at 0000, nontitrated 500 units/hr heparin for immediate postoperative period, PACU Recovery, Routine heparin 25,000 units in Rate/Dose Verify 03/19/2015 2:24 AM 500 Uni ts/hr 10 mL/hr dextrose 5% 500 mL EDT infusion 500 Units/hr (10 mL/hr), Intravenous, CONTINUOUS, Starting on Sat03/19/15 at 0200, Until Sat03/19/15 at 0906, 500 units/hr nontitrated, Routine heparin 25,000 units in Rate/Dose Verify 03/21/2015 6:43 700 Units/hr 14 mL/hr dextrose 5% 500 mL infusion AM EDT 500-7,000 Units/hr (10-140 mL/hr), Intravenous, CONTINUOUS, Starting on Sat03/19/15 at 0930, Until Sat03/21/15 at 0857, Patient Weight 55-59 kg Initial dose - 850 units/hr = 17 mL/hr aPTT less than 60 sec - [...] than 145 sec X 2 - call housekeeping room attendant See Bolus dosing guidance for aPTT [...] aPTT - Per Protocol, Routine Rate/Dose Verify 03/21/2015 1:04 AM EDT 700 Units/hr 14 mL/hr Rate/Dose Verify 03/20/2015 6:32 PM EDT 700 Units/hr 14 mL/hr heparin 25,000 units in Rate/Dose Change 03/23/2015 5:00 1,050 Unit s/hr 21 mL/hr dextrose 5% 500 mL PM EDT infusion 500-7,000 Units/hr (10-140 mL/hr), Intravenous, CONTINUOUS, Starting on Sat03/22/15 at 0915, Until Sat03/24/15 at 0716, Patient Weight 60-64 kg Initial dose - 950 units/hr = 19 mL/hr aPTT less than 60 sec - increase by 250 units/hr = 5 mL/hr aPTT 60-79 sec- increase by 100 units/hr = 2 mL/hr aPTT 80-114 sec - no change aPTT 115-129 sec - decrease by 50 units/hr = 1 mL/hr aPTT 130-145 sec - stop infusion for 30 min then decrease by 100 units/hr = 2 mL/hr aPTT greater than 145 sec - stop infusion for 60 min then decrease by 200 units/hr = 4 mL/hr aPTT greater than 145 sec X 2 - call housekeeping room attendant See Bolus dosing guidance for aPTT values less than 80 seconds under PRN medications Repeat aPTT 6 hours after initiating heparin. Then 6 hours after each dose adjustment. When 2 consecutive aPTT within target range of 80 - 114 seconds, change aPTT to once every 24 hours with A.M. labs while on heparin. RN to order required aPTT - Per Protocol, Routine New Bag 03/23/2015 11:54 AM EDT 1,050 Units/hr 21 mL/hr Rate/Dose Verify 03/23/2015 11:00 AM EDT 1,050 Units/hr 21 mL/hr HYDROmorphone (DILAUDID) 1 mg/mL New Syringe/Cartridge 03/19/2015 1 2:30 AM EDT NET WEB DEVELOPER 30 mL Intravenous, NET WEB DEVELOPER ONLY, Starting on 03/19/15 at 0030, Until 03/20/15 at 1054 HYDROmorphone (DILAUDID) syringe 0.2-0.4 mg Given 03/18/2015 11:18 PM EDT 0.4 mg 0.2-0.4 mg, Intravenous, EVERY 5 MIN PRN, Pain, Starting on Sat03/18/15 at 1856, Until 03/19/15 at 0000, For moderate pain (4-6) give: 0.2 mg every 5 minute prn For severe pain (7-10) give: 0.4 mg every 5 minutes prn Maximum dose: 4 mg per hour Hold for respiratory rate less than 10 per minute., PACU Recovery Given 03/18/2015 11:12 PM EDT 0.4 mg Given 03/18/2015 10:25 PM EDT 0.4 mg HYDROmorphone (DILAUDID) syringe 0.2-0.4 mg Given 03/18/2015 9:30 PM EDT 0.4 mg 0.2-0.4 mg, Intravenous, EVERY 5 MIN PRN, Pain, Starting on Sat03/18/15 at 1906, Until 03/19/15 at 0000, For moderate pain (4-6) give: 0.2 mg every 5 minute prn For severe pain (7-10) give: 0.4 mg every 5 minutes prn Maximum dose: 4 mg per hour Hold for respiratory rate less than 10 per minute., PACU Recovery Given 03/18/2015 8:47 PM EDT 0.4 mg insulin aspart (NovoLOG) Given 03/24/2015 12:05 PM EDT 2 Units Right Upper Outer VIAL injection 1-4 Units Quadrant 1-4 Units, Subcutaneous, EVERY 4 HOURS, First dose on 03/19/15 at 0130, Until Discontinued, CORRECTION BOLUS Sensitive to insulin [...] no insulin and resume prior schedule. Given 03/24/2015 8:15 AM EDT 1 Units Right Lower Quadrant Given 03/24/2015 4:48 AM EDT 1 Units lactated ringers infusion 1,000 New Bag 03/18/2015 8:58 PM EDT 1,000 mLs 100 mL/hr mL 1,000 mL, at 100 mL/hr, Intravenous, CONTINUOUS, Starting on 03/18/15 at 1930, Until 03/19/15 at 0000, Day of Surgery (Day of Procedure) lactated ringers infusion New Bag 03/19/2015 8:07 AM EDT 100 mL/hr 100 mL/hr 100 mL/hr, Intravenous, CONTINUOUS, Starting on 03/19/15 at 0200, Until 03/19/15 at 0906 New Bag 03/19/2015 2:24 AM EDT 100 mL/hr 100 mL/hr lisinopril (PRINIVIL;ZESTRIL) tablet 5 m g Given 03/24/2015 11:25 AM EDT 5 mg 5 mg, Oral, DAILY, First dose on Yadira 03/24/15 at 1000, Until Discontinued, Routine ondansetron (ZOFRAN) tablet 4 mg Given 03/20/2015 3:14 PM EDT 4 mg 4 mg, Oral, EVERY 8 HOURS PRN, Starting on 03/19/15 at 0144, Until Yadira 03/24/15 at 1742, Nausea, Vomiting, If multiple antiemetics are ordered, use ondansetron first. PO Preferred. If patient unable to take PO, may give IV if ordered. May repeat times one in 45 minutes if ineffective., Routine oxyCODONE (ROXICODONE) immediate release Given 03/21/2015 8:03 P M EDT 10 mg tablet 10 mg 10 mg, Oral, EVERY 4 HOURS PRN, Starting on 03/20/15 at 1053, Until [facility] 03/24/15 at 1742, Pain, severe pain (7-10), May give an additional 5 mg in 30 minutes once if pain not relieved., Routine Given 03/21/2015 1:28 PM EDT 10 mg Given 03/21/2015 8:51 AM EDT 10 mg oxyCODONE (ROXICODONE) immediate release tablet Given 03/19/2015 9:36 PM EDT 5 mg 5 mg 5 mg, Oral, EVERY 4 HOURS PRN, Starting on Sat03/18/15 at 1935, Until [place] 03/20/15 at 1054, Pain, May give an additional 5 mg in 60 minutes once if pain not relieved, Recovery (Recovery-Hospital Unit), Routine Given 03/19/2015 2:53 PM EDT 5 mg Given 03/19/2015 8:07 AM EDT 5 mg oxyCODONE (ROXICODONE) immediate release Given 03/24/2015 12:44 AM EDT 5 mg tablet 5 mg 5 mg, Oral, EVERY 4 HOURS PRN, Starting on Sat03/20/15 at 1053, Until [place] 03/24/15 at 1742, Pain, mild to moderate pain (1-6), May give an additional 5 mg in 30 minutes once if pain not relieved., Routine Given 03/23/2015 8:38 PM EDT 5 mg Given 03/22/2015 5:12 PM EDT 5 mg polyethylene glycol (MIRALAX) packet 17 g Given 03/24/2015 8:16 AM EDT 17 g 17 g, Oral, DAILY, First dose on Sat03/22/15 at 2000, Until Discontinued, Administer if needed per patient's routine or if no bowel movement within 48 hours to achieve: 1) One bowel movement at least every 48 hours, AND 2) Without straining. If multiple bowel medications ordered, consider polyethylene glycol(MIRALAX) first., Routine Given 03/23/2015 8:17 AM EDT 17 g Given 03/22/2015 8:24 PM EDT 17 g potassium chloride (K-DUR/KLOR-CON) extended Given 06/2015 11:16 AM EDT 40 mEq release tablet 40 mEq 40 mEq, Oral, ONCE, 1 dose, On 03/19/15 at 1100, 20 mEq tablet may be dissolved in water for administration, Routine potassium chloride (K-DUR/KLOR-CON) extended Given 8:07 PM EDT 40 mEq release tablet 40 mEq 40 mEq, Oral, 2 TIMES DAILY, 2 doses, First dose on 03/20/15 at 1200, Last dose on 03/20/15 at 2100, 20 mEq tablet may be dissolved in water for administration, Routine Given 03/20/2015 11:28 AM EDT 40 mEq potassium chloride (K-DUR/KLOR-CON) extended Given 8:17 AM EDT 40 mEq release tablet 40 mEq 40 mEq, Oral, DAILY, First dose on Yadira 03/24/15 at 0900, Until Discontinued, 20 mEq tablet may be dissolved in water for administration, Routine potassium chloride (K-DUR/KLOR-CON) extended Given 11:26 AM EDT 40 mEq release tablet 40 mEq 40 mEq, Oral, ONCE, 1 dose, On Yadira 03/24/15 at 1200, 20 mEq tablet may be dissolved in water for administration, Routine senna-docusate (PERICOLACE) 8.6-50 mg per Given 2014 8:36 PM EDT 2 tablets tablet 2 tablet 2 tablet, Oral, 2 TIMES DAILY, First dose on 03/22/15 at 2100, Until Discontinued, Routine Given 03/23/2015 8:19 AM EDT 2 tablets Given 03/22/2015 8:25 PM EDT 2 tablets simvastatin (ZOCOR) tablet 20 mg Given 03/23/2015 5:08 PM EDT 20 mg 20 mg, Oral, EVERY EVENING, First dose on 03/19/15 at 1700, Until Discontinued, Routine Given 03/22/2015 5:12 PM EDT 20 mg Given 03/21/2015 5:50 PM EDT 20 mg warfarin (COUMADIN) tablet 1 mg Given 03/20/2015 4:31 PM EDT 1 mg 1 mg, Oral, ONCE, 1 dose, On 03/20/15 at 1700, Routine warfarin (COUMADIN) tablet 1 mg Given 03/21/2015 5:50 PM EDT 1 mg 1 mg, Oral, ONCE, 1 dose, On 03/21/15 at 1700, Routine warfarin (COUMADIN) tablet 3 mg Given 03/22/2015 5:12 PM EDT 3 mg 3 mg, Oral, ONCE, 1 dose, On Tu03/22/15 at 1700, Routine warfarin (COUMADIN) tablet 3 mg Given 03/23/2015 5:08 PM EDT 3 mg 3 mg, Oral, ONCE, 1 dose, On 03/23/15 at 1700, Routine warfarin (COUMADIN) tablet 5 mg Given 03/19/2015 5:47 PM EDT 5 mg 5 mg, Oral, ONCE, 1 dose, On 03/19/15 at 1700, Routine documented in this encounter Active and Recently Administered Medications Times are shown in EDT. Scheduled Medication Order 03/22/2015 03/23/2015 03/24/2015 acetaminophen (TYLENOL) tablet 500 mg (CANCELED) 0036 (Given - Provider: Amita Anderson RN)0358 (Given - Provider: Amita Anderson RN)0928 (Given - Provider: Radha Krishna RN)1304 (Given - Provider: Radha Krishna RN)1712 (Given - Provider: Radha Krishna RN) 0540 (Given - Provider: Nereida Shipman RN)0800 (Not Given - Provider: Crystal Harris RN - Reason: Order parameters not met)1148 (Given - Provider: Crystal Harris RN)1708 (Given - Provider: Crystal Harris RN) 0044 (Given - Provider: Severo Madrigal RN) 0448 (Given - Provider: Severo Madrigal RN)0819 (Given - Provider: Troy Ha RN)1126 (Given - Provider: Troy Ha RN) 500 mg, Oral, EVERY 4 HOURS, First dose on 03/20/15 at 1200, Until Discontinued, Maximum dose of acetaminophen is 4000 mg from all sources in 24 hours., Routine 2024 (Given - Provider: Nereida Shipman RN)2356 (Given - Provider: Nereida Shipman RN) 203 (Given - Provider: Severo Madrigal RN) aspirin EC tablet 81 mg (CANCELED) 0928 (Given - Provider: Chapito Krishna RN) 0820 (Given - Provider: Crystal C [place], RN) 0820 (Given - Provider: Troy Ha RN) 81 mg, Oral, DAILY, First dose on Sat 06/21 at 0900, Until Discontinued, Routine bisacodyl (DULCOLAX) EC tablet 10 mg (CANCELED) 2024 ( Given - Provider: Nereida Shipman RN) 0819 (Given - Provider: Crystal Harris, JOSEPH) 0816 (Giv en - Provider: Troy Ha RN) 10 mg, Oral, DAILY, First dose on Tue at 2000, Until Discontinued, Administer if needed per patient's routine or if no bowel movement within 48 hours to achieve: 1) One bowel movement at least e very 48 hours, AND 2) Without straining. If multiple bowel medications ordered, consider adding bisacodyl if polyethylene glycol (MIRALAX) and lactulose not sufficient., Routine insulin aspart (NovoLOG) VIAL injection 1-4 Units (CAN CELED) 0036 (Given - Provider: Amita Anderson RN)0404 (Given - Provider: Amita Anderson RN)0928 (Given - Provider: Radha Krishna RN)1304 (Given - Provider: Radha Krishna, JOSEPH)1712 (Given - Provider: Radha Krishna RN) 0445 (Given - Provider: Nereida Shipman RN)0821 (Given - Provider: Crystal Harris, JOSEPH)1159 (Given - Provider: Crystal Harris, JOSEPH)1709 (Given - Provider: Crystal Harris, JOSEPH)1903 (Given - Provider: Crystal Harris, JOSEPH) 0048 (Given - Provider: Severo Madrigal, JOSEPH)0448 (Given - Provider: Severo Madrigal, JOSEPH)0815 (Given - Provider: Troy Ha, JOSEPH)1205 (Given - Provider: Troy Ha RN) 1-4 Units, Subcutaneous, EVERY 4 HOURS, First dose on 03/19/15 at 0130, Until Discontinued, CORRECTION BOLUS Sensitive to insulin lean patient or total daily dose of all insulin needed to achieve 1999 (Given - Provider: Nereida Shipman RN)2359 (Given - Provider: Nereida Shipman RN) glycemic control less than 30 units [...] Routine lisinopril (PRINIVIL;ZESTRIL) tablet 5 mg (CANCELED) 1124 (Given - Provider: Troy Ha RN - Comment: Med. not available earlier) 5 mg, Oral, DAILY, First dose on 03/08 at 1000, Until Discontinued, Routine polyethylene glycol (MIRALAX) packet 17 g (CANCELED) 2 024 (Given - Provider: Nereida Shipman RN) 0817 (Given - Provider: Crystal Harris RN) 0816 (Giv en - Provider: Troy Ha RN) 17 g, Oral, DAILY, First dose on 03/08 at 2000, Until Discontinued, Administer if needed per patient's routine or if no bowel movement within 48 hours to achieve: 1) One bowel movement at least ev gregory 48 hours, AND 2) Without straining. If multiple bowel medications ordered, consider polyethylene glycol(MIRALAX) first., Routine potassium chloride (K-DUR/KLOR-CON) extended release tablet 40 m Eq (CANCELED) 08 (Given - Provider: Troy Ha RN) 40 mEq, Oral, DAILY, First dose on Sat at 0900, Until Discontinued, 20 mEq tablet may be dissolved in water for administration, Routine potassium chloride (K-DUR/KLOR-CON) extended release tablet 40 mEq (COMPLETED) 1125 (Given - Provider: Troy Ha RN) 40 mEq, Oral, ONCE, 1 dose, Sat03/24/15 at 1200, 20 mEq tablet may be dissolved in water for administration, Routine senna-docusate (PERICOLACE) 8.6-50 mg per tablet 2 tab let (CANCELED) 2024 (Given - Provider: Nereida Shipman RN) 0819 (Given - Provider: Crystal Harris RN)2036 (Given - Provider: Severo Madrigal RN) 0900 (Not Given - Provider: Crystal monterroso RN - Reason: Patient/family refused) 2 tablet, Oral, 2 TIMES DAILY, First dos e on Sat03/22/15 at 2100, Until Discontinued, Routine simvastatin (ZOCOR) tablet 20 mg (CANCELED) 171 (Give n - Provider: Radha Krishna RN) 170 (Given - Provider: Crystal Harris RN) 20 mg, Oral, EVERY EVENING, First dose o n 03/19/15 at 1700, Until Discontinued, Routine warfarin (COUMADIN) tablet 3 mg (COMPLETED) 171 (Give n - Provider: Radha Krishna RN) 3 mg, Oral, ONCE, 1 dose, Sat03/22/15 at 1700, Routine warfarin (COUMADIN) tablet 3 mg (COMPLETED) 1707 (Given - Provider: Crystal Harris RN) 3 mg, Oral, ONCE, 1 dose, Sat03/23/15 at 1700, Routine Continuous Medication Order 03/22/2015 03/23/2015 03/24/2015 heparin 25,000 units in dextrose 5% 500 mL infusion (C ANCELED) 1050 (New Bag - Provider: Radha Krishna RN)1724 (Rate/Dose Verify - Provider: Radha Krishna RN)1726 (Rate/Dose Change - Provider: Radha Krishna RN - Comment: No change.) 0337 (Rate/Dose Change - Provider: Nereida Shipman RN)1000 (Rate/Dose Change - Provider: Crystal Harris RN - Comment: no change; PTT 90 seconds)1100 (Rate/Dose Verify - Provider: Crystal Harris RN - Comment: PTT 90, no change.) 500-7,000 Units/hr (10-140 mL/hr), Intra venous, at 10-140 mL/hr, CONTINUOUS, Starting Sat03/22/15 at 0915, Until Yadira 03/24/15 at 0716, Patient Weight 60-64 kg Initial dose - 950 units/hr = 19 mL/hr aPTT 1154 (N ew Bag - Provider: Crystal Harris RN)1700 (Rate/Dose Change - Provider: Crystal Harris RN - Comment: no change in rate, PTT 83 seconds) less than 60 sec - increase by 250 unit s/hr = 5 mL/hr aPTT 60-79 sec- increase by 100 units/hr = 2 mL/hr aPTT 80-114 sec - no change aPTT 115-129 sec - decrease by 50 units/hr = 1 mL/hr aPTT 130-145 se c - stop infusion for 30 min then decrea se by 100 units/hr = 2 mL/hr aPTT greater than 145 sec - stop infusion for 60 min then decrease by 200 units/hr = 4 mL/hr aPTT greater than 145 sec X 2 - [facility] See Bolus dosing guidance for aPTT values less than 80 seconds under PRN medications Repeat aPTT 6 hours after initiating heparin. Then 6 hours after each dose adjustment. When 2 consecuti ve aPTT within target range of 80 - 114 seconds, change aPTT to once every 24 hours with A.M. labs while on heparin. RN to order required aPTT - Per Protocol, Routine PRN Medication Order 03/22/2015 03/23/2015 03/24/2015 oxyCODONE (ROXICODONE) immediate release tablet 5 mg 0 036 (Given - Provider: Amita Anderson RN)1304 (Given - Provider: Radha Krishna RN)1712 (Given - Provider: Radha Krishna RN) 2038 (Given - Provider: Severo Madrigal RN) 0044 (Given - Provider: Severo Madrigal RN) 5 mg, Oral, EVERY 4 HOURS PRN, Starting 03/20/15 at 1053, Until Yadira 03/24/15 at 1742, Pain, mild to moderate pain (1-6), May give an additional 5 mg in 30 minutes once if pain not relieved., Routine documented in this encounter Care Teams Toe Former Relationship Specialty Start Date End Date Miranda Cardenas APRN PCP - General 02/15/15 03/31/15 documented as of this encounter
--- OUTSIDE RECORDS SUMMARY | 2022-01-25 01:00 | XMS_ITS | Encounter Summary ---
:1950 Author Organization [facility] [place] [address] Care Team Providers Name Role Phone Gordy Gregg MD Primary Care Provider [phone] Encounter Details Date Type Department Care Team Description 05/24/2015 Hospital Encounter [facility], [place] [id number] Social History Tobacco Use Types Packs/Day Years [...] mg Take 1 tablet by 15 tablet 03/2406/01/2015 Tablet mouth as needed (as needed [...] Date/Time Associated Diagnosis Comme nts VEIN MAP ARM Routine 05/24/2015 1:13 PM PAD (peripheral Result s for this BILATERAL EST artery disease) procedure are in Occlusion of graft the resul ts of lower extremity, section. initial encounter documented in this encounter Results Vein Map Arm, Bilateral (05/24/2015 1:13 PM EST) Component Value Ref Test Analysis Performed At [facility] Vinylmint Range Method Time Signature VB Text Department: Vascular Surgery Lab VASCUBASE Report Patient: [id number] (CARRIE PERRY) CPT: 65126 ICD10: I73.9;T82.898A Referring Physician: GLEN DOYLE ?? [...] encounter documented in this encounter Care Teams Composer Teaching Artist Relationship Specialty Start Date End Date Gordy Gregg MD PCP - General Family Medicine 05/19/[address] [place] [address] documented as of this encounter
--- OUTSIDE RECORDS SUMMARY | 2022-01-25 01:00 | XMS_ITS | Encounter Summary ---
:1950 [place] [address] Care Team Providers Name Role Phone Gordy Gregg MD Primary Care Provider [phone] Reason for Visit Auth/Cert - Closed Specialty Diagnoses / Procedures Referred By Contact Refer red To Contact Diagnoses SFA to peroneal bypass occluded graft Procedures PRO VEIN IN SITU BYPASS GRAFT, FEM-TIB PRO VEIN BYPASS GRAFT, FEM-TIBIAL @BYPASS GRAFT, FEM.-ANT. TIB, POST. TIB, PERONEAL, DP W\ VEIN CONDUIT ([place] [address]) Referral ID Status Reason Start Date Expiration Date Visits Requ ested Visits Authorized [id number] Closed 1 1 Encounter Details Date Type Department Care Team Description 05/26/2015 Anesthesia Event Main Operating Room Linda Burns MD [facility] [address] [facility] Bao Ellis MD [facility] [place] [address] [place] [address] Anesthesia Record Procedure Summary Procedure Name Responsible Anesthesia Start Anesthesia Stop Time Anesthesiologist Time @BYPASS GRAFTKayce Kathleen H, MD 05/26/15 1101 1435 FEM-ANT TIBIAL, -POST TIBIAL, -PERONEAL, -DP W\ SYNTHETIC CONDUIT (WRVU 23.66) (Left Leg) Events Date Time Event Comment 05/26/2015 1101 AN Verify 1101 Start 1101 An Start Data 1109 An Induction 1111 An Intubation 1117 Anesthesia Ready 1143 Procedure Start 1225 Heparin 1342 Protamine 1419 Extubation/LMA Out To Delete (sk ip) the Extubation event, click the X below. 1422 an stop data 1435 Recovery or ICU Handoff Patient care was transferred to the destination unit staff after review of the patient's medica l history, current anesthetic/surgi ray status and plan, according to the Provider Handoff Checklist. 1435 Stop 1641 Name Total Midazolam 2 mg fentaNYL 100 mcg IV Lidocaine 100 mg Propofol 75 mg Rocuronium 50 mg Heparin 8,000 Units Protamine 50 mg Ondansetron 4 mg ceFAZolin (ANCEF) 2g in dextrose 5% 50 mL 2 g PHENYLephrine INF 890 mcg Glycopyrrolate 0.2 mg Neostigmine 3 mg HYDROmorphone 0.8 mg Labetalol 5 mg Lactated Ringers 500 mL Sodium Chloride 0.9% 600 mL Agents Name O2 Air N2O Sevoflurane (et) Blood No blood administrations on file. Lines, Drains, and Airways Type Details Placement Removal Incision 03/18/15; leg; vertical 03/18/15 0000 by Elam, 0 08/11/15 0003 by (Extending from left JOSEPH Burch Kristy L, groin to left medial RN calf.); 08/11/15; 0003 Incision 03/18/15; calf; vertical; 03/18/15 0000 by Elam, 08/11/15 0003 by 08/11/15; 0003 JOSEPH Burch Krist y L, RN Incision 05/26/15; groin; 05/26/15 0000 by Otis, 08/11/15 0003 by vertical, other (see JOSEPH Feliciano Kristy L, comments); 08/11/15; 0003 RN Incision 05/26/15; leg; vertical; 05/26/15 0000 by Otis, 08/11/15 0003 by (distal leg); 08/11/15; JOSEPH Feliciano Kristy L, 0003 RN PIV 05/26/15; 0930; 05/26/15 0930 by 05/28/15 1954 b y metacarpal vein left (top Alcira, Kecia Uriarte, Elisa Kinsgley V RN of hand); [id number]-[id number] catheter system; 18 gauge, 1 in length; T Alcira; intradermal injection, tolerated well; 0; 05/28/15; 1954 (unable to flush) ETT Mask Ventilation: Easy 05/26/15 1111 by 05/26/15 1419 by (1); ETT Type: Cuffed, Bao Ellis, Bao Bailey, Oral; ETT Size: 7 mm; Mac MD MCKEON Blade: 3; Notes: Asleep, Pre-O2, Stylette; Attempts: 1; Laryngoscopy Grade: 1; ETT Placement Verified By: Auscultation, Capnometry; Secured at Teeth: 20 cm; Inserted by: MD Caleb PIV 05/26/15; 1117; 05/26/15 1117 by 05/29/15 0925 b y metacarpal vein right Bao Ellis, Elizabeth Alcazar, RN (top of hand); [id number] catheter system; 16 gauge; MD Caleb; 05/29/15; 0925 Arterial Line 05/26/15; 1117; radial 05/26/15 1117 by 05/26/15 1515 by artery; 20 gauge; Bao Ellis, Debi Garcia Kendall, MD; Sterile RN Prep; 05/26/15; 1515 Urethral Catheter 05/26/15; 1206; Surgery 05/26/15 1206 by Otis, 05/27/15 1245 by longer than 2 hours; JOSEPH Feliciano Ashley S, Physician order; DIESEL TECHNICIAN indwelling single lumen catheter; 100% silicone; 16; inserted at this facility; 1; 10; 10; none; drainage bag to dependent drainage; urethral catheter removed; 05/27/15; 1245 documented in this encounter Social History Tobacco Use Types Packs/Day Years Used Date Never Smoker Smokeless Tobacco: Never Used Alcohol Use Standard Drinks/Week Comments No 0 (1 standard drink = 0.6 oz pure alcoho l) Sex Assigned at Date Recorded Not on file documented as of this encounter OR Notes Anesthesia Postprocedure Evaluation - Bao Ellis - 05/26/2015 6:07 PM EST Patient: Carrie Hurst Procedure(s) Performed: Procedure(s): @BYPASS GRAFT, FEM-ANT TIBIAL, -POST TIBIAL, -PERONEAL, -DP W\ SYNTHETIC CONDUIT PLACEMENT VEIN PATCH OR CUFF AT DISTAL ANASTOMOSIS OF BYPASS GRAFT, SYNTHETIC CONDUIT , RODRIGUEZ-COLLAR,RACHELLE-PATCH, ADD-ON CODE, LOWER EXTREMITY @ENDARTERECTOMY, ILIOFEMORAL W OR W/O PATCH GRAFT @RE-OP FOR RE-DO LOWER EXTREMITY BYPASS GRAFT, >1 MONTH P\ ORIGINAL SURGERY, ADD-ON CODE Actual Anesthetic: general Patient location: [facility] Surgical Floor Post-op pain: Adequate analgesia Post-op nausea: no nausea or vomiting Last Vitals: Filed Vitals: 05/27/15 1100 BP: 156/74 Pulse: 79 Temp: 38.2 ??C (100.8 ??F) Resp: 20 Post-op cardiovascular and respiratory status: is stable Level of consciousness: awake, alert and oriented Complications: no apparent complications and tolerated the procedure well Fluid Status: normal Anesthesia Preprocedure Evaluation - Linda Devries MD - 05/25/2015 4:54 PM EST Pre-Anesthesia Evaluation for: Carrie Hurst a 64 y.o. female. Procedure(s): @BYPASS GRAFT, FEM.-ANT. TIB, POST. TIB, PERONEAL, DP W\ VEIN CONDUIT ([place] [address]) Patient Active Problem List Diagnosis ??? HLD [...] CONDUIT ([place] [address]) performed by Mariano Doyle MD at [facility] MAIN OR History Substance Use Topics ??? [...] Neck ROM: full Cardiovascular Assessment: Rhythm: regular Rate: normal Pulmonary Assessment: breath sounds clear to auscultation Dental Assessment: - normal exam Misc Assessment: Other exam findings: EKG 03/16/15 Sinus rhythm with frequent Premature ventricular complexes in a pattern of bigeminy Nonspecific ST and T wave abnormality Abnormal ECG No previous ECGs available Confirmed by MD ELEUTERIO, EDGAR ([id number]) on 03/16/2015 12:47:33 PM Dobutamine Stress Echo 03/16/15 Indication: Pre-op evaluation Stage BP HR Rest 183/70 70 Low dose 177/76 82 Peak 165/77 144 Recovery 150/82 78 SUMMARY: 1. BASELINE: The left ventricle is [...] technically difficult imaging). Anesthesia Plan: ASA 3 general, with a(n) intravenous induction This is a 64 y.o. female with a history of PAD with left leg critical lower limb ischemia, here for the following Procedure(s): @BYPASS GRAFT, FEM.-ANT. TIB, POST. TIB, PERONEAL, DP W\ VEIN CONDUIT [place] [address]) The patient's past medical history, past surgical history, medications, and allergies were reviewed and notable for HTN, DM (on metformin, not insulin dependent), HLD, and PVD. Of note, per previous anesthetic record, patient unable to walk one flight of stairs without dull constant 4/10 mid--sternal c hest pain relieved by rest in approx 1-2 minutes, also gets this same pain when she tries to exercise (ie: walking a distance or pushups against wall or leg exercises) pain not accompanied by diaphoresis or N/V. DSE (03/16/15) with evidence for basal inferior/inferoseptal infarction and stress inducibleischemia in the apex and apical lateral wall Patient's documented history was negative for seizures, CVA, severe cardiopulmonary disease, GERD orhepatic/renal disease. There is no evidence of any recent URI or UTI symptoms, fevers/chills, or other indication of infection. LABS: Lab Results Component Value Date HGB 9.0* 03/24/2015 PLATELET 208 03/24/2015 INR 1.5* 05/24/2015 NA 140 03/24/2015 K 3.1* 03/24/2015 CREATININE 0.50* 05/24/2015 TYPE AND SCREEN: Lab Results Component Value Date ABORH A Neg 03/21/2015 ALLERGIES: No Known Allergies ANESTHETIC HISTORY: Prior easy face mask ventilation. Grade 1 view using indirect video laryngoscopy. No post-operative anesthetic complications. ANESTHETIC PLAN: GA with ETT Arterial line Standard ASA monitoring Adequate IV access Staff addendum: As above, s/p now occluded left fem distal bypass presents for redo bypass likely using arm vein conduit. Stable angina pattern in setting of DSE with inducible ischemia, started on beta jose a 6 weeks ago. Off metformin for angiogram, off coumadin (for graft patency) 6 days ago. Discussed risks/benefits GAETT, arterial line monitoring. Informed Consent: Anesthetic plan and risks discussed with patient. Use of blood products discussed with patient whom. Plan discussed with resident. PAT Staff Note documented in this encounter Plan of Treatment Not on filedocumented as of this encounter Visit Diagnoses Not on filedocumented in this encounter Administered Medications Inactive Administered Medications - up to 3 most recent administrations Medication Order MAR Action Action Date Dose Rate Site ceFAZolin (ANCEF) 2g in dextrose 5% Given 05/26/2015 11:26 AM ES T 2 g 50 mL 2 g, Intravenous, ONCE, 1 dose, On Yadira 05/26/15 at 0845, Administer over 30 Minutes, Redose every 3 hours if CrCl is greater than 20. Redose every 8 hours if CrCl is less than 20., Day of Surgery (Day of Procedure), Indication for (Active or Suspected): Prophylaxis fentaNYL 50 mcg/mL multi-dose injection Given 05/26/2015 11:14 AM EST 50 mcg PRN, Starting on Yadira 05/26/15 at 1106, Until Yadira 05/26/15 at 1448, Pain, Anesthesia Intra-op, Routine Given 05/26/2015 11:06 AM EST 50 mcg glycopyrrolate (ROBINUL) multi-dose inje ction Given 05/26/2015 1:52 PM EST 0.2 mg PRN, Starting on Yadira 05/26/15 at 1352, Until Yadira 05/26/15 at 1448, Anesthesia Intra-op, Routine heparin (porcine) injection Given 05/26/2015 1:10 PM EST 1,000 Units PRN, Starting on Yadira 05/26/15 at 1225, Until Yadira 05/26/15 at 1448, Anesthesia Intra-op, Routine Given 05/26/2015 12:36 PM EST 2,000 Units Given 05/26/2015 12:25 PM EST 5,000 Units HYDROmorphone (DILAUDID) injection Given 05/26/2015 2:15 PM EST 0.2 mg PRN, Starting on Yadira 05/26/15 at 1330, Until Yadira 05/26/15 at 1448, Pain, Anesthesia Intra-op, Routine Given 05/26/2015 1:52 PM EST 0.2 mg Given 05/26/2015 1:45 PM EST 0.2 mg labetalol (NORMODYNE,TRANDATE) multi-dose Given 05/26/2015 1:55 PM EST 5 mg injection PRN, Starting on Yadira 05/26/15 at 1355, Until Yadira 05/26/15 at 1448, High Blood Pressure, Anesthesia Intra-op, Routine lactated ringers infusion New Bag 05/26/2015 11:01 AM EST CONTINUOUS PRN, Starting on Yadira 05/26/15 at 1101, Until Yadira 05/26/15 at 1448, Anesthesia Intra-op lidocaine (PF) (XYLOCAINE) 100 mg/5 mL (2 %) Given 11:09 AM EST 100 mg injection PRN, Starting on Yadira 05/26/15 at 1109, Until Yadira 05/26/15 at 1448, Anesthesia Intra-op, Routine midazolam (PF) (VERSED) 1 mg/mL multi-dose Given 05/26/2015 11:0 1 AM EST 2 mg injection PRN, Starting on Yadiar 05/26/15 at 1101, Until Yadira 05/26/15 at 1448, Sleep, Anesthesia Intra-op, Routine neostigmine (PROSTIGMINE) multi-dose inj ection Given 05/26/2015 1:52 PM EST 3 mg PRN, Starting on Yadira 05/26/15 at 1352, Until Yadira 05/26/15 at 1448, Anesthesia Intra-op, Routine ondansetron (ZOFRAN) injection Given 05/26/2015 1:54 PM EST 4 mg PRN, Starting on Yadira 05/26/15 at 1354, Until Yadira 05/26/15 at 1448, Nausea, Anesthesia Intra-op, Routine PHENYLephrine (TONI-SYNEPHRINE) Restarted 05/26/2015 1:08 PM 10 m cg/min 7.5 mL/hr 20 mg in sodium chloride 250 mL EST (standard ADULT & Saba greater than 20kg) infusion CONTINUOUS PRN, Starting on Yadira 05/26/15 at 1230, Until Yadira 05/26/15 at 1448, Anesthesia Intra-op, Routine Rate/Dose Change 05/26/2015 12:50 PM EST 20 mcg/min 15 mL/hr New Bag 05/26/2015 12:30 PM EST 10 mcg/min 7.5 mL/hr propofol (DIPRIVAN) 10 mg/mL bolus injection Given 11:09 AM EST 75 mg (Anesthesia) PRN, Starting on Yadira 05/26/15 at 1109, Until Yadira 05/26/15 at 1448, Anesthesia Intra-op protamine injection Given 05/26/2015 1:42 PM EST 50 mg PRN, Starting on Yadira 05/26/15 at 1342, Until Yadira 05/26/15 at 1448, Anesthesia Intra-op, Routine rocuronium (ZEMURON) multi-dose injectio n Given 05/26/2015 11:09 AM EST 50 mg PRN, Starting on Yadira 05/26/15 at 1109, Until Yadira 05/26/15 at 1448, Anesthesia Intra-op, Routine sodium chloride 0.9% infusion New Bag 05/26/2015 11:01 AM EST CONTINUOUS PRN, Starting on Yadira 05/26/15 at 1101, Until Yadira 05/26/15 at 1448, Anesthesia Intra-op documented in this encounter Care Teams Gas Meter Reader Relationship Specialty Start Date End Date Gordy Gregg MD PCP - General Family Medicine 05/19/[address] [place] [address] documented as of this encounter
--- OUTSIDE RECORDS SUMMARY | 2022-01-25 01:00 | XMS_ITS | Encounter Summary ---
:1950 Author Organization [facility] [place] [address] Care Team Providers Name Role Phone Shirley Cardenas APRN Primary Care Provider Encounter Details Date Type Department Care Team Description 04/15/2015 Hospital Encounter Vascular Lab at [facility], Bharat hayden; Haley Hedrick, MERVIN Non-healing u lcer of foot, unspecified laterality, with unspecified severity; [facility] PAD (peripheral artery disea se) [place] [id number] Social History Tobacco Use Types Packs/Day Years [...] every 4 hours as needed for Pain. meTOPROLOL succinate Take 1 tablet by 30 tablet 12 5 04/18/2016 (TOPROL-XL) 25 mg Tablet mouth daily. Sustained Release 24 hrIndications: ASCVD (arteriosclerotic cardiovascular disease) oxyCODONE (ROXICODONE) 5 Take 1 tablet by 20 tablet 0 04/0605/19/2015 mg Tablet mouth every 6 hours as [...] Name Priority Date/Time Associated Diagnosis Comme nts UNILATERAL BYPASS Routine 04/15/2015 1:16 PM Claudicatio n Results for this GRAFT ASSESS EDT Non-healing ulcer of procedu re are in foot, unspecified the result s laterality, with section. unspecified misael nunez PAD (peripheral artery disease) SOSA, LEGS, MULTIPLE Routine 04/15/2015 1:16 PM PAD (peripheral Results for this LEVELS EDT artery disease) procedure ar e in the results section. documented in this encounter Results SOSA, legs, multiple levels (04/15/2015 1:16 PM EDT) Component Value Ref Test Analysis Performed At [facility] Range Method Time Signature VB Text Department: Vascular Surgery Lab VASCUBASE Report Patient: [id number] (CANDELARIA PERRYETTE) CPT: 54249 ICD10: I70.213 Referring Physician: GLEN DOYLE ?? [...] e Number VASCUBASE Unilat Bypass Graft Assess (04/15/2015 1:16 PM EDT) Component Value Ref Test Analysis Performed At [facility] Range Method Time Signature VB Text Department: Vascular Surgery Lab VASCUBASE Report Patient: [id number] (ORLANDOCANDELARIA MorenoCARRIE) CPT: 40784 ICD10: I70.213 Referring Physician: GLEN DOYLE ?? Indications: one month s/p L fem-peroneal bypass ICD10 Diagnosis Code: I70.213 Findings: Left ?PSV (cm/s) ??EDV ??Location ? Inflow Artery ?152 ?? 14 ??Left Distal Common Femoral Artery ?? Inflow Anastomosis ?68 ?? 10 ??Common Femoral Artery, Left ? Proximal Graft ?75 ?? 10 ? Mid Thigh (Graft) ? 75 ?? 10 ? Near Knee (Graft) ? 60 ?? 11 ? High Calf (Graft) ? 71 ?? 13 ? Distal Graft ? 100 ?? 22 ? Outflow Anastomosis ?114 ?? 20 ??Left Peroneal ? Outflow Artery (Graft) ? 427 ?? 73 ??Peroneal Artery, Mid Left ? Interpretation: Patent LEFT lower extremity bypass gra ft with no evidence of stenosis. There is a significant stenosis in the peroneal outflow just beyond the distal anastomosis > 50% (3.6 x step up) Electronically Signed by: NATANAEL NUÑEZ on 2015-04-16 06:14: 15 PM VB Text End of Report VASCUBASE Report Specimen (Source) Anatomical Collection Method Collection Time Re ceived Time Location / / Volume Laterality 04/15/2015 1:16 PM EDT Glen Doyle MD VASCULAR ORDERABLES Performing Organization Address City/State/ZIP Code Phon e Number VASCUBASE documented in this encounter Visit Diagnoses Diagnosis Claudication Peripheral vascular disease, unspecified Non-healing ulcer of foot, unspecified l aterality, with unspecified severity PAD (peripheral artery disease) Peripheral vascular disease, unspecified documented in this encounter Care Teams Home Health Clinical Supervisor Relationship Specialty Start Date End Date Shirley Cardenas APRN PCP - General 04/01/15 05/18/15 documented as of this encounter
--- OUTSIDE RECORDS SUMMARY | 2022-01-25 01:00 | XMS_ITS | Encounter Summary ---
:1950 Author Organization [facility] Address [address] [place] [address] Care Team Providers Name Role Phone Shirley Cardenas APRN Primary Care Provider Reason for Visit Reason Comments Wound Check Encounter Details Date Type Department Care Team Description 04/06/2015 Office Visit Vascular Surgery at [facility], At [facility] nonbiol bypass [facility] [employer] of the left leg w [facility] er oth prt [address] [place]ULAR SURG[place] [id number] [place] [id number] [phone] Social History Tobacco Use Types Packs/Day Years Used Date Never Smoker Smokeless Tobacco: Never Used Alcohol Use Standard Drinks/Week Comments No 0 (1 standard drink = 0.6 oz pure alcoho l) Sex Assigned at Date Recorded Not on file documented as of this encounter Last Filed Vital Signs Vital Sign Reading Time Taken Comments Blood Pressure 120/73 04/06/2015 10:22 AM EDT Pulse 91 04/06/2015 10:22 AM EDT Temperature - - Respiratory Rate 20 04/06/2015 10:22 AM EDT Oxygen Saturation - - Inhaled Oxygen Concentration - - Weight 52.2 kg (115 lb) 04/06/2015 10:22 AM EDT Height 152.4 cm (5') 04/06/2015 10:22 AM EDT Body Mass Index 22.46 04/06/2015 10:22 AM EDT documented in this encounter Patient Instructions Patient InstructionsStHope holloway, [employer] DEVELOPER - 04/06/2015 10:45 AM EDT Watch for infection:. Redness, swelling, increase drainage, warmth to area, odor, fever, or chills Elevate left leg May shower RTc 04/15/15 documented in this encounter Progress Notes Hope Virk APRN - 04/06/2015 10:19 AM EDT Post op 03/18/15: left SFA-peroneal bypass with left GSV and left lateral fibulectomy Denies fever,chills, SOB, crest pain, rest pain new tissue loss problems with left incisions. StatesL D45 toe ulcer healed. C/o ball of foot discomfort and stiff toes. Elevates leg for swelling. Left leg incision intact with masha. Thigh masha removed. Every other calf and lateal calf masha removed. NO infection. Medial calf incision with small area of dark tissue along incision. cellulitis. Good palpable graft and DP pulse. Mild foot and ankle edema. Assessment/Plan: 64 yo female s/p 03/18/15: left SFA-peroneal bypass with left GSV and left lateral fibulectomy. Elevate left leg when sitting. Watch for infection:. Redness, swelling, increase drainage, warmth to area, odor, fever, or chills. Thigh masha and every other calf masha removed. RTc 04/15/15 with studies already scheduled. documented in this encounter Plan of Treatment Not on filedocumented as of this encounter Visit Diagnoses Diagnosis Athscl nonbiol bypass of the left leg w ulcer oth prt foot documented in this encounter Care Teams Tar Boiler Relationship Specialty Start Date End Date Shirley Cardenas APRN PCP - General 04/01/15 05/18/15 documented as of this encounter
--- OUTSIDE RECORDS SUMMARY | 2022-01-25 01:01 | XMS_ITS | Encounter Summary ---
:1950 Author Organization [facility] [place] [address] Care Team Providers Name Role Phone Shirley Cardenas APRN Primary Care Provider Encounter Details Date Type Department Care Team Description 03/16/2015 Clinical Support Same Day at [facility] PAD (peripheral artery [facility] disease) [place] [phone] Social History Tobacco Use Types Packs/Day Years Used Date Never Smoker Alcohol Use Standard Drinks/Week Comments No 0 (1 standard drink = 0.6 oz pure alcoho l) Sex Assigned at Date Recorded Not on file documented as of this encounter Last Filed Vital Signs Vital Sign Reading Time Taken Comments Blood Pressure - - Pulse - - Temperature - - Respiratory Rate - - Oxygen Saturation - - Inhaled Oxygen Concentration - - Weight 52.5 kg (115 lb 12.8 oz) 03/16/2015 11:11 AM EDT Height 152.4 cm (5') 03/16/2015 11:11 AM EDT Body Mass Index 22.62 03/16/2015 11:11 AM EDT documented in this encounter Progress Notes Kecia Brody RN - 03/16/2015 11:42 AM EDT PAT questionnaire reviewed with patient while in Pre Admission testing. Pre- operative instruction booklet reviewed. Patient verbalizes a good understanding of all information reviewed. PLAN: Testing: Labs, T&S, urine spec, CXR, EKG Special medication instructions: Procedure date: 03-18-15 Dr. Doyle documented in this encounter Plan of Treatment Not on filedocumented as of this encounter Procedures Procedure Name Priority Date/Time Associated Diagnosis Comme nts EKG 12-LEAD Routine 03/16/2015 11:49 AM PAD (peripheral Resul ts for this EDT artery disease) procedure ar e in the results section . documented in this encounter Results EKG 12 Lead (03/16/2015 11:49 AM EDT) Component Value Ref Range Test Analysis Performed Pathologis t Method Time At Signature Ventricular rate 78 BPM MUSE SYSTEM Atrial Rate 78 BPM MUSE SYSTEM P-R Interval 148 ms MUSE SYSTEM QRS Duration 84 ms MUSE SYSTEM Q-T Interval 366 ms MUSE SYSTEM QTC Calculated 417 ms MUSE SYSTEM (Bezet) Calculated P [place] 75 degrees MUSE SYSTEM Calculated R [place] 18 degrees MUSE SYSTEM Calculated T [place] 71 degrees MUSE SYSTEM INTERPRETATION Sinus rhythm with frequent P remature ventricular complexes in a pattern of bigeminy MUSE SYSTEM Nonspecific ST and T wave abnormality Abnormal ECG No previous ECGs available Confirmed by MD ELEUTERIO, EDGAR ([id number]) on 03/16/2015 12:47:33 PM Specimen Anatomical Collection Method Collection Time Receive d Time (Source) Location / / Volume Laterality 03/16/2015 11:49 03/16/2015 AM EDT 12:47 PM EDT Mariano Doyle MD ECG ORDERABLES Performing Organization Address City/State/ZIP Code Phon e Number MUSE SYSTEM documented in this encounter Visit Diagnoses Diagnosis PAD (peripheral artery disease) Peripheral vascular disease, unspecified documented in this encounter Care Teams Baker Second Relationship Specialty Start Date End Date Shirley Cardenas APRN PCP - General 02/15/15 03/31/15 documented as of this encounter
--- OUTSIDE RECORDS SUMMARY | 2022-01-25 01:01 | XMS_ITS | Encounter Summary ---
:1950 Author Organization [place] [id number] Care Team Providers Name Role Phone Ronald Shirley Miller APRN Primary Care Provider Encounter Details Date Type Department Care Team Description 03/18/2015 Surgery Main Operating Room Mariano Doyle MD @BYPASS GRAFT, [facility] FEM.-ANT. KACIE, POST. Hospital DR HESTER, ADDY, DP W\ [facility] VASCULAR SURG LUCILA VEIN CONDUIT ([place] [address] IN-SITU THAT WOULD BE [place] [id number] [phone]) ([facility] 32.35) [phone] Social History Tobacco Use Types Packs/Day Years [...] Discharge date and time: 03/24/2015 Attending Physician: Mariano Doyle MD Discharge Diagnoses (Hospital Problems) and [...] to the vein interposition of the peroneal. [id number] units, Protamine 20 mg. Papavarine 60 mg. [...] initially had pain control issues, started on EDUCATIONAL TECHNOLOGY SPECIALIST which ran through POD#3 when pt was [...] VNA/PT. Important Studies and Lab Data: Labs: [facility] Results Component Value Date INR 2.1* 03/24/2015 PT 24.6* 03/24/2015 PTT 120* 03/24/2015 Studies: Findings: Right Pressure (mm Hg) Brachial Artery 151 Left Pressure (mm Hg) SOSA Waveform TBI Brachial Artery 143 Dorsalis Pedis (Ankle) Artery 165 1.09 Traill-Biphasic Posterior Tibial (Ankle) Artery 153 1.01 Traill-Biphasic Great Toe 51 0.34 Interpretation: LEFT: No [...] For any problems or questions please call [phone] SAMIA Coleman, fig bar machine operator Nurse Clinician SAMIA Lopez, fig bar machine operator Nurse Clinician For issues on weeknights after 5pm and weekends please call [phone] and ask for the Vascular Fellow international account executive. General Instructions None Future Appointments and Orders Future Appointments Provider Department Dept Phone 03/25/2015 12:40 PM Michael Luong PA Cardiology [phone] Joint Appt CARDIOLOGY INTAKE, NURSE ONE Cardiology [phone] 04/06/2015 10:30 AM Hope Virk, DRAFTING DETAILER Vascular Surgery [phone] Future Orders Complete By Expires SOSA, legs, multiple levels [VAS8 Custom] 03/24/2015 (Approximate) 03/24/2016 Process Instructions: Scheduling Instructions: Please schedule with one month postop clinic f/u Questions: Indication for study/signs & symptoms: s/p left fem-peroneal bypass Question to be answered: bloodflow to feet Should this service/procedure be billed to the research sponsor?: Which location will this be performed?: [place] Referral to Home Health - at DISCHARGE [[id number] CPT(R)] As directed Process Instructions: Scheduling Instructions: Comments: DOCUMENTATION FOR VNA SERVICES (INCLUDING THOSE PATIENTS WITH MEDICARE COVERAGE REQUIRING HOME VNA SERVICES AND/OR HOSPICE SERVICES) PATIENT'S LOCATION: Chan Perry [address] [facility] [address] (home) Senior Policy Analyst's Name: self In discussion with the attending physician, it is certified that this patient is under their care and that they, or a nurse practitioner, clinical nurse specialist or Physician Director Of Culture who is workingdirectly with them, had a [...] (X ) PT(X ) OT (X ) BODY DESIGNER ( ) POT MAKER ( ) GOLF COURSE RANGER ( ) Hospice ( ) Specific orders: [...] for home services: HOME HEALTH CARE AGENCY: [facility]. PHONE: [phone] FAX: [phone] Please note that any additional orders needs or changes will need to be obtained from this patient'sPCP: SHIRLEY CARDENAS APRN (General) Questions: Agency name and contact information: [facility] Patient location post discharge: own home What services are requested: Registered Nurse Physical Therapy Occupational Therapy Start date: 03/24/2015 Responsible MD post discharge contact info: PCP Discharge References/Attachments: Discharge References/Attachments None Electronically Signed By: ADRIANA LOCKHART RN 03/24/2015 RASHI FARFAN MD 03/24/15 documented in this encounter Discharge Instructions Patient InstructionsRichyAdraina RN - 03/18/2015 10:53 AM EDT Patient [...] For any problems or questions please call [phone] SAMIA Coleman, fig bar machine operator Nurse Clinician SAMIA Lopez, fig bar machine operator Nurse Clinician For issues on weeknights after 5pm and weekends please call [phone] and ask for the Vascular Fellow international account executive. documented in this encounter Medications at Time [...] is a 64 y.o. female patient of Mariano Tracy MD, admitted on 03/18/2015 with PMHx [...] CONDU[place] [address]) performed by Mariano Doyle MD at [facility] MA[facility] OR Social History: Patient lives boyfriend in [facility] (near [place]) Home Setup: Ramp to enter 1 level home with basement (boyfriend will address all basement needs) during recovery, tub/shower DME: walker (borrowed from family) Baseline ADL/Mobility: Independent with ADL???s and IADL???s 1. Independent with activity prior to 1 month ago; walked outside prior to 1 month ago 2. 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 Boyfriend is juan f [place]eg[place]; will not be home 28/01 Code Status: Full Code Activity Orders:therapeutic walk 3 times a day Precautions: carb control diet, bleeding Interval History: CATHY, d/c planning S: I had a really [...] timed interventions: 58 minutes for SCHM Pager: [phone] JACKIE NEWMAN Occupational Therapy Rehabilitation Department Alana Chne PTA - 03/23/2015 4:05 PM EDT Physical Therapy Note Treatment # 3 Patient profile: Pt. is a 64 y.o. female with PMH significant for DM, HTN, HLD admitted on 03/18/2015by Mariano Tracy MD for as per H&P bilateral [...] CONDUIT ([place] [address]) performed by Mariano Doyle MD at [facility] MA[facility] OR Social History: Patient [place] lives with her boyfriend on the main level of a ranch style home. Her boyfriend works FT as a day care provider. Stairs: Ramp to enter Baseline Mobility: Independent without an AD within her home. Pt stopped walking longer distances outdoors when she developed an ulcer on her left toe ~January. Pt does light duty work at [employer]. Equipment at home: Walker (not sure if [...] Total timed interventions: 15 minutes ALANA CHEN, HAT CHECKER 03/23/2015 Pager: [phone] Physical Therapy Rehabilitation Department Dion Jolly RN - 03/23/2015 2:19 PM EDT Office of Care Management/Discharge Planning Note Technology Sales Consultant Dion Jolly RN, AC (pager [phone]) Patient: Chan Perry : 1950 (64 y.o.) Home: [facility] [address]* LOS: 5 days Care reviewed with direct [...] discharge place: Home with home health services ([facility] RN/PT/OT order is pended) vs rehab. PT has been paged to evaluate again. ?? Anticipated discharge needs: Has walker at home. ?? Family involved in discharge planning: Sister Antoni is at the bedside, supportive, and involved in discharge planning. ?? PCP: SHIRLEY CARDENAS, MAGALY (General), Future Appointments Date Time Provider Department Center 03/25/2015 12:40 PM [facility] Plan: Care Management will continue to [...] 97 % SpO2: [97 %-100 %] 03/22 0701 - 03/23 0700 In: 895 [P.O.:680; I.V.:215] [...] page with any questions Rashi Farfan P: [phone] Nereida Shipman RN - 03/23/2015 6:48 AM EDT Pt alert & oriented X4. Denies chest pain, no c/o shortness of breath.Telemetry strip indicated RARE V-BIGEM/OCC PVCs,RARE BEATS OF AIVR,vital signs stable. Will continue on telemetry. Ryder Pulliam OTA - 03/22/2015 3:29 PM EDT Occupational Therapy Treatment Note Visit #: 2 Patient Dx: hCan Perry is a 64 y.o. female patient of Mariano Tracy MD, admitted on 03/18/2015 with PMHx [...] CONDUIT ([place] [address]) performed by Mariano Doyle MD at [facility] OR Social History: Patient lives boyfriend in [facility] (near [place]) Home Setup: Ramp to enter 1 level home with basement (boyfriend will address all basement needs) during recovery, tub/shower DME: walker (borrowed from family) Baseline ADL/Mobility: Independent with ADL???s and IADL???s 1. Independent with activity prior to 1 month ago; walked outside prior to 1 month ago 2. 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 Boyfriend [...] ?? Min A to change gown, primarily /2 to tele ?? Supine>sit with supervision ?? [...] timed interventions: 54 minutes for SCHM Pager: [phone] JACKIE NEWMAN Occupational Therapy Rehabilitation Department Alana Chen PTA - 03/22/2015 3:12 PM EDT Physical Therapy Note Treatment # 2 Patient profile: Pt. is a 64 y.o. female with PMH significant for DM, HTN, HLD admitted on 03/18/2015by Mariano Tracy MD for as per H&P bilateral [...] CONDUIT ([place] [address]) performed by Mariano Doyle MD at [facility] OR Social History: Patient [place] lives with her boyfriend on the main level of a ranch style home. Her boyfriend works FT as a day care provider. Stairs: Ramp to enter Baseline Mobility: Independent without an AD within her home. Pt stopped walking longer distances outdoors when she developed an ulcer on her left toe ~January. Pt does light duty work at [employer]. Equipment at home: Walker (not sure if [...] 15 minutes ALANA CHEN PTA 03/22/2015 Pager: [phone] Physical Therapy Rehabilitation Department Rashi Farfan MD - 03/22/2015 12:25 PM EDT Vascular [...] PM EDT Office of Care Management/Initial Assessment Technology Sales Consultant Elizabeth Harris RN, pager [phone] Patient: Chan Perry : 1950 (64 y.o.) Home: [place] [address]* LOS: 3 days Care reviewed and at [...] situation: lives with significant other Jaime in [place], [place]. History Social History Narrative Lives with significant other Ranch style home Extended Emergency Contact Information Primary Emergency Contact: Maria Fernanda Saini Relation: Sibling Secondary Emergency Contact: HeraclioJaime Relation: Friend ?? Code status: Full Code Advance directives: <no information> None in E-dh. ?? Insurance coverage: [employer]. Admission status: IPI; pt adm bilateral lower extremity claudication that has transitioned to CLI (rest pain) of the LLE. ABIs are diminished bilaterally. DSE with focal reversible ischemia. Now POD 3 s/p Left SFA-peroneal bypass with lateral fibulectomy and peroneal vein interposition graft. ? Last [facility] discharge date: no previous [facility] admissions. ?? Anticipated barriers to discharge: none. ?? Financial concerns: no concerns shared w/ this CM. ?? Identified patient/family concerns r/t discharge: none. ?? Family Mediator referral indicated: no. ?? 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 ?? Current home/community [...] home area and pt requested referral to [facility]. RN/PT/OT orders pended. ?? Transportation at discharge: s.o. Jaime will transport pt home. ?? Family involved in discharge planning: yes. ?? PCP: SHIRLEY CARDENAS, DRAFTING DETAILER (General), Future Appointments Date Time Provider Department Center 03/25/2015 12:40 PM Michael Luong PA [facility] CLIN Plan: Care Management will continue to monitor progress, follow for continuity of care, and assist with discharge planning. Elizabeth Harris, RN, MSN Technology Sales ConsultantLine Installation Supervisor of Care Management Pager [phone] Phone: [phone] Primo Fagan - 03/21/2015 1:09 PM EDT Incoming Freight Clerk Encounter Note Patient Name: Chan Perry : [id number] MR#: [id number] Admit Date: 03/18/2015 9:57 AM Hospital Day 3 days Narrative: Visited to introduce and assess acceptance of Incoming Freight Clerk services. Pt was awake, alert, oriented and [...] expressed gratitude for family support. Intervention and Outcome:Incoming Freight Clerk services accepted.Conversation to build trusting relationship.Provided prayer.Provided [...] when appropriate. Jonelle Boswell PT, DPT Pager: [phone] Physical Therapy Rehabilitation Department Peter Sorensen MD [...] AM Peter Kwon MD General Surgery, PGY2 AN Kwon-Peter Juarez MD - 03/20/2015 11:39 AM EDT Vascular [...] UOP 1L. INR 2.1 PLAN: - d/c EDUCATIONAL TECHNOLOGY SPECIALIST, tylenol/Oxycodone - Carb controlled diet - Therapeutic heparin gtt (continue for today), bridge to Coumadin - ABIs in AM - Remove oliva - OOB, ambulate - PT/OT evaluation Peter Kwon MD General Surgery, PGY2 Peter Sorensen MD - 03/19/2015 10:29 AM EDT Vascular [...] and SOB. Will continue to monitor. Severo aMdrigal RN - 03/19/2015 1:00 AM EDT Patient [...] SFA-peroneal bypass. Stable post-op. ?? Will start EDUCATIONAL TECHNOLOGY SPECIALIST for better pain control ?? Post-op Hgb's [...] better demonstrated. - LLE arteriogram demonstrates patent MANAGER PRICING and profunda. The SFA is occluded from [...] entire course. - RLE arteriogram demonstrates patent MANAGER PRICING and profunda. The SFA appears occluded from [...] Per discussions between cardiology, anesthesia, and Dr. Vivek the decision has been made to proceed [...] QTC Calculated (Bezet) 417 ms Calculated P [place] 75 degrees Calculated R [place] 18 degrees Calculated T [place] 71 degrees INTERPRETATION Sinus rhythm with frequent Premature ventricular complexes in a pattern of bigeminy Nonspecific ST and T wave abnormality Abnormal ECG No previous ECGs available Confirmed by MD ELEUTERIO, EDGAR (55) on 03/16/2015 12:47:33 PM ABO/Rh Typing [...] Negative mcL Appearance UA Clear Clear Spec Dalton UA 1.029 1.002 - 1.030 Color UA [...] Outcome: Ongoing (Interventions Implemented as Appropriate) 03/23/15 6297 Individualization Individualize the Plan of Care: adequate [...] Assessment Outcome: Ongoing (Interventions Implemented as Appropriate) 03/23/15 0437 Discharge Needs Assessment Concerns to be Addressed [...] Review Outcome: Ongoing (Interventions Implemented as Appropriate) 03/23/1543603/23/15 0896 Plan of Care Review Plan of Care [...] Handling Outcome: Ongoing (Interventions Implemented as Appropriate) 03/23/1584603/23/15 1158 Safety Interventions Safety Precautions/Fall Reduction assistive [...] toward outcome Plan of Care - Nereida Shipman RN - 03/23/2015 4:46 AM EDT Problem: [...] for DM, HTN, HLD admitted on 03/18/2015by Mariano Tracy MD for as per H&P bilateral [...] CONDUIT ([place] [address]) performed by Mariano Doyle MD at [facility] MA[facility] OR Social History: Patient [place] lives with her boyfriend on the main level of a ranch style home. Her boyfriend works FT as a day care provider. Stairs: Ramp to enter Baseline Mobility: Independent without an AD within her home. Pt stopped walking longer distances outdoors when she developed an ulcer on her left toe ~January. Pt does light duty work at [employer]. Equipment at home: Walker (not sure if it is a FWW or 4WW) Precautions/Special Considerations: Full code; bleeding precautions, therapeutic walk 3x daily, upwith assistance, monitor BP Subjective: ???I think I can go to that desk and then go back to my room?? Objective: Pt seen for evaluation today in collaboration with OT Pain: 10 in LLE Vital Signs: Sp02: 97% HR: [...] (initial evaluation) JONELLE BOSWELL PT 03/21/2015 Pager: [phone] Physical Therapy Rehabilitation Department Initial Assessments - Debi Kapoor, OT - 03/21/2015 1:47 PM EDT Occupational Therapy Evaluation Patient profile: Chan Perry is a 64 y.o. female patient of Mariano Tracy MD, admitted on03/18/2015 with PMHx significant [...] CONDUIT ([place] [address]) performed by Mariano Doyle MD at [facility] OR Social History: Patient lives boyfriend in [facility] (near [place]) Home Setup: Ramp to enter 1 level home with basement (boyfriend will address all basement needs) during recovery, tub/shower DME: walker (borrowed from family) Baseline ADL/Mobility: Independent with ADL???s and IADL???s ?? Independent with activity prior to 1 month ago; walked outside prior to 1 month ago ?? 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 Boyfriend is juan f [employer]; will not be home 28/01 Code Status: [...] BP 120/68 dropped [facility] 89/[address] [facility], resolved within a few minutes; min A [...] PT Total timed interventions: 0 minutes Pager: [phone] DEBI KAPOOR OT 03/21/2015 Occupational Therapy Rehabilitation [...] (Interventions Implemented as Appropriate) 03/20/15 0803 03/20/15 2755 Plan of Care Review Plan of Care [...] prior to removal. Patient rates pain 6-7/10, EDUCATIONAL TECHNOLOGY SPECIALIST d/c'd this AM and pt transitioned to Oxycodone, tolerating 5 mg without nausea. Tele Note Subjective: Pt did not exhibit shortness of breath and/or chest pain during shift Objective: Patient's vital signs are as follows: HR: 87, BP: 124/61, Temp: 36.8 C, SpO2:96% on RA, RR: 16 . Assessment: see telemetry strip per delivery tech--rare PVCs, HR 70 - 105 bpm [...] Mutuality Outcome: Ongoing (Interventions Implemented as Appropriate) 03/19/15172303/19/15 1800 Individualization Patient Specific Goals pain control, [...] pain 6-8/10 throughout day. Pain controlled with EDUCATIONAL TECHNOLOGY SPECIALIST and PRR oxycodone. Doppler/pulse checks done on [...] follow Supervision: Mid assist with ADLs Surveillance: Masbiancao, hourly rounding CPG GOAL OUTCOME EVALUATION: Goal: [...] Fall Risk -- Goal: Infection Control 03/19/15 0803/19/151723 Safety Interventions Isolation Precautions -- standard precautions [...] Hitchcock MD - 03/18/2015 7:35 PM EDT [facility] Operative Note Patient Name: Chan Perry : [id number] MR#: [id number] Case Date: 03/18/2015 Surgeon: Surgeon(s) and Role: * Mariano Doyle MD - Primary * Anabella Hitchcock MD - Resident-Surgeon Chief * Sheryl Pritchard MD - Fellow Preoperative diagnosis: PAD w/ claudication and non-healing foot ulcer Postoperative diagnosis: PAD w/ claudication and non-healing foot ulcer Procedure(s): @BYPASS GRAFT, FEM.-ANT. TIB, POST. TIB, PERONEAL, DP W\ VEIN CONDUIT ([place] [address]) Left SFA-peroneal bypass with lateral fibulectomy Peroneal [...] suture in the area of injury. A Mora tunneler was used to create a tunnel [...] Infection Bundle used? No Associated attestation - Mariano Doyle MD - 03/25/2015 9:22 AM EDT Attestation: Case Date: 03/18/2015 - 03/19/2015 I was present for and participated in this entire case MARIANO DOYLE MD 03/25/2015 Brief Op Note - Anabella Hitchcock MD - 03/18/2015 7:28 PM EDT Brief Operative Note Patient Name: Chan Perry : [id number] MR#: [id number] Case Date: 03/18/2015 Surgeon: Surgeon(s) and Role: * Mariano Doyle MD - Primary * Anabella Hitchcock MD - Resident-Surgeon Chief * Sheryl Pritchard MD - Fellow Preoperative diagnosis: PAD w/ claudication and non-healing foot ulcer Postoperative diagnosis: PAD w/ claudication and non-healing foot ulcer Procedure(s): @BYPASS GRAFT, FEM.-ANT. TIB, POST. TIB, PERONEAL, DP W\ VEIN CONDUIT ([place] [address]) Left SFA-peroneal bypass with lateral fibulectomy Peroneal [...] Name Priority Date/Time Associated Diagnosis Comme nts TELECOMMUNICATIONS ADMINISTRATOR SCAN 04/04/2015 12:00 AM EDT LAB SCAN 03/27/2015 12:00 AM EDT TELECOMMUNICATIONS ADMINISTRATOR SCAN 03/27/2015 12:00 AM EDT POCT GLUCOSE [...] procedure are i n the results section. SSOA, LEGS, MULTIPLE Routine 03/22/2015 10:54 Resu lts [...] TYPE AND SCREEN Routine 03/21/2015 9:31 AM ([facility]/CGP/BALDOMERO) EDT EKG 12-LEAD STAT 03/21/2015 9:16 AM [...] VEIN CONDUIT ([place] [address]) (WRVU 32.35) POCT GLUCOSE Routine 03/18/2015 10:42 Results for this AM EDT procedure are i n the results section. documented in this encounter Results SOSA, legs, multiple levels (04/15/2015 1:16 PM EDT) Component Value Ref Test Analysis Performed At [facility] Vaximm Range Method Time Signature VB Text Department: Vascular Surgery Lab VASCUBASE Report Patient: [id number] (CHAN PERRY) CPT: 58204 ICD10: I70.213 Referring Physician: MARIANO DOYLE ?? Indications: s/p L fem-peroneal bypass [...] ?0.42 ??Monophasic ? Posterior Tibial (Ankle) Art lucila ??96 ?0.57 ??Monophasic ? Great Toe ?43 ?0.26 ?? Left ? Pressure (mm Hg) ?? SOSA ??Waveform ? TBI ?? Brachial Artery ?161 ? Dorsalis Pedis (Ankle) Arter y ?160 ? 0.95 ??Biphasic ? Posterior Tibial (Ankle) Art lucila ??129 ? 0.77 ??Monophasic ? Great Toe [...] / Volume Laterality 04/15/2015 1:16 PM EDT Mariano Doyle MD VASCULAR ORDERABLES Performing Organization Address City/State/ZIP Code Phon e Number VASCUBASE SCAN DOC: TELECOMMUNICATIONS ADMINISTRATOR (04/04/2015 12:00 AM EDT) Narrative This result has an attachment that is no t available. Scanning Provider MEDIA MGR SCAN EXT ORDR/RSLT SCAN DOC: TELECOMMUNICATIONS ADMINISTRATOR (03/27/2015 12:00 AM EDT) Narrative This result [...] 5 (specimen) AM EDT 11:44 AM EDT Mariano Doyle MD POINT OF CARE TEST ORDERABLE S Performing Organization Address City/[facility]/ZIP Code Phon e Number [address] CERNER MILLENNIUM POCT Glucose (03/24/2015 7:15 AM EDT) athologist Signature POC Glucose 147 65 - 199 CERNER mg/dL MILLENNIUM Comment: Supplemental ranges: <140 mg/dL before meals <180 mg/dL all other times of the day Specimen Anatomical Collection Method Collection Time Receive d Time (Source) Location / / Volume Laterality Blood specimen 03/24/2015 7:15 AM 015 7:15 (specimen) EDT AM EDT Mariano Doyle MD POINT OF CARE TEST ORDERABLE S Performing Organization Address City/State/ZIP Code Phon e Number [address] CERNER MILLENNIUM POCT Glucose (03/24/2015 4:09 AM EDT) athologist Signature POC Glucose 152 65 - 199 CERNER mg/dL MILLENNIUM Comment: Supplemental ranges: <140 mg/dL before meals <180 mg/dL all other times of the day Specimen Anatomical Collection Method Collection Time Receive d Time (Source) Location / / Volume Laterality Blood specimen 03/24/2015 4:09 AM 015 4:09 (specimen) EDT AM EDT Mariano Doyle MD POINT OF CARE TEST ORDERABLE S Performing Organization Address City/[facility]/ZIP Code Phon e Number [address] CERNER MILLENNIUM (ABNORMAL) APTT [...] EDT Resulting Agency Comment Spec In Lab Mariano Doyle MD HEMATOLOGY ORDERABLES Performing Organization Address City/[facility]/ZIP Code Phon e Number [address] CERNER MILLENNIUM Differential, Automated [...] EDT Resulting Agency Comment Spec In Lab Mariano Doyle MD HEMATOLOGY ORDERABLES Performing Organization Address City/State/ZIP Code Phon e Number [place] [id number] CERNER MILLENNIUM (ABNORMAL) Hemogram (03/24/2015 [...] EDT Resulting Agency Comment Spec In Lab Mariano Doyle MD HEMATOLOGY ORDERABLES Performing Organization Address City/State/ZIP [place] [address] CERNER MILLENNIUM (ABNORMAL) Basic Metabolic Panel (non-fasting) (03/24/2015 3:04 AM EDT) P athologist Signature Glucose Lvl 148 65 - 199 CERNER mg/dL MILLENNIUM Comment: Diabetes: >=200 mg/dL plus symp toms BUN 6 (L) 8 - 18 mg/dL CERNER MILLENNIUM Creatinine 0.34 (L) 0.70 - 1.20 mg/dL CERNER MILL ENNIUM Comment: Please note that the pediatric reference intervals supplied above were not validated at [facility]. Results from pediatri c patients should be [...] the following links into your internet browser. [email or web address] Specimen Anatomical Collection Method Collection Time Receive d Time (Source) Location / / Volume Laterality Blood specimen 03/24/2015 3:04 AM 015 3:08 (specimen) EDT AM EDT Resulting Agency Comment Spec In Lab Mariano Doyle MD CHEMISTRY ORDERABLES Performing Organization Address City/[facility]/ZIP [place] [address] CERNER MILLENNIUM (ABNORMAL) Prothrombin Time (03/24/2015 3:04 AM EDT) P athologist Signature PT 24.6 (H) 12.0 - [...] EDT Resulting Agency Comment Spec In Lab Mariano Doyle MD HEMATOLOGY ORDERABLES Performing Organization Address City/[facility]/ZIP Code Phon e Number [address] CERNER MILLENNIUM POCT Glucose (03/24/2015 12:44 AM EDT) P athologist Signature POC Glucose 149 65 - 199 [facility] mg[facility] Comment: Supplemental ranges: <140 mg/dL before meals <180 mg/dL all other times of the day Specimen Anatomical Collection Method Collection Time Receive d Time (Source) Location / / Volume Laterality Blood specimen 03/24/2015 12:44 5 (specimen) AM EDT 12:44 AM EDT Mariano Doyle MD POINT OF CARE TEST ORDERABLE S Performing Organization Address City/[facility]/[place] [address] CERNER MILLENNIUM POCT Glucose (03/23/2015 6:41 PM EDT) athologist Signature POC Glucose 162 65 - 199 CERNER mg/dL MILLENNIUM Comment: Supplemental ranges: <140 mg/dL before meals <180 mg/dL all other times of the day Specimen Anatomical Collection Method Collection Time Receive d Time (Source) Location / / Volume Laterality Blood specimen 03/23/2015 6:41 PM 015 6:41 (specimen) EDT PM EDT Mariano Doyle MD POINT OF CARE TEST ORDERABLE S Performing Organization Address City/[facility]/ZIP Code Phon e Number [address] CERNER MILLENNIUM POCT Glucose (03/23/2015 4:23 PM EDT) athologist Signature POC Glucose 176 65 - 199 CERNER mg/dL MILLENNIUM Comment: Supplemental ranges: <140 mg/dL before meals <180 mg/dL all other times of the day Specimen Anatomical Collection Method Collection Time Receive d Time (Source) Location / / Volume Laterality Blood specimen 03/23/2015 4:23 PM 015 4:23 (specimen) EDT PM EDT Mariano Doyle MD POINT OF CARE TEST ORDERABLE S Performing Organization Address City/[facility]/ZIP Code Phon e Number [address] CERNER MILLENNIUM (ABNORMAL) APTT (03/23/2015 4:19 PM EDT) athologist Signature PTT 83 (H) 25 - 35 sec CERNER MILLENNIUM Comment: Recommended therapeutic PTT range for fu ll dose unfractionated heparin is 80-114 seconds. Specimen Anatomical Collection Method Collection Time Receive d Time (Source) Location / / Volume Laterality Blood specimen 03/23/2015 4:19 PM 015 5:09 (specimen) EDT PM EDT Resulting Agency Comment Spec In Lab Mariano Doyle MD HEMATOLOGY ORDERABLES Performing Organization Address City/[facility]/ZIP Code Phon e Number [address] CERNER MILLENNIUM POCT Glucose (03/23/2015 11:50 AM EDT) athologist Signature POC Glucose 154 65 - 199 CERNER mg/dL [facility] Comment: Supplemental ranges: <140 mg/dL before meals <180 mg/dL all other times of the day Specimen Anatomical Collection Method Collection Time Receive d Time (Source) Location / / Volume Laterality Blood specimen 03/23/2015 11:50 5 (specimen) AM EDT 11:50 AM EDT Mariano Doyle MD POINT OF CARE TEST ORDERABLE S Performing Organization Address City/State/ZIP Code Phon e Number [address] CERNER MILLENNIUM (ABNORMAL) APTT (03/23/2015 9:49 AM EDT) athologist Signature PTT 90 (H) 25 - 35 sec CERNER MILLENNIUM Comment: Recommended therapeutic PTT range for fu ll dose unfractionated heparin is 80-114 seconds. Specimen Anatomical Collection Method Collection Time Receive d Time (Source) Location / / Volume Laterality Blood specimen 03/23/2015 9:49 AM 015 (specimen) EDT 10:14 AM EDT Resulting Agency Comment Spec In Lab Mariano Doyle MD HEMATOLOGY ORDERABLES Performing Organization Address City/[facility]/ZIP Code Phon e Number [address] CERNER MILLENNIUM (ABNORMAL) POCT Glucose (03/23/2015 8:01 AM EDT) athologist Signature POC Glucose 215 (H) 65 - 199 [facility]ER mg[facility]dL [facility] Comment: Supplemental ranges: <140 mg/dL before meals <180 mg/dL all other times of the day Specimen Anatomical Collection Method Collection Time Receive d Time (Source) Location / / Volume Laterality Blood specimen 03/23/2015 8:01 AM 015 8:01 (specimen) EDT AM EDT Mariano Doyle MD POINT OF CARE TEST ORDERABLE S Performing Organization Address City/State/ZIP Code Phon e Number [address] CERNER MILLENNIUM POCT Glucose (03/23/2015 4:11 AM EDT) athologist Signature POC Glucose 181 65 - 199 CERNER mg/dL MILLENNIUM Comment: Supplemental ranges: <140 mg/dL before meals <180 mg/dL all other times of the day Specimen Anatomical Collection Method Collection Time Receive d Time (Source) Location / / Volume Laterality Blood specimen 03/23/2015 4:11 AM 015 4:11 (specimen) EDT AM EDT Mariano Doyle MD POINT OF CARE TEST ORDERABLE S Performing Organization Address City/[facility] [place] [address] CERNER MILLENNIUM (ABNORMAL) Prothrombin Time (03/23/2015 2:40 AM EDT) athologist Signature PT 19.1 (H) 12.0 - [...] EDT Resulting Agency Comment Spec In Lab Mariano Doyle MD HEMATOLOGY ORDERABLES Performing Organization Address City/[facility]/ZIP [facility] [place] [address] CERNER MILLENNIUM (ABNORMAL) APTT (03/23/2015 2:40 AM EDT) athologist Signature PTT 76 (H) 25 - 35 sec CERNER MILLENNIUM Comment: Recommended therapeutic PTT range for fu ll dose unfractionated heparin is 80-114 seconds. Specimen Anatomical Collection Method Collection Time Receive d Time (Source) Location / / Volume Laterality Blood specimen 03/23/2015 2:40 AM 015 2:55 (specimen) EDT AM EDT Resulting Agency Comment Spec In Lab Mariano Doyle MD HEMATOLOGY ORDERABLES Performing Organization Address City/State/ZIP Code Phon e Number [address] CERNER MILLENNIUM Differential, Automated (03/23/2015 2:40 AM EDT) athologist Signature Neutrophils % 64.7 % CERNER [...] EDT Resulting Agency Comment Spec In Lab Mariano Doyle MD HEMATOLOGY ORDERABLES Performing Organization Address City/State/Z[place] [address] CERNER MILLENNIUM (ABNORMAL) Hemogram (03/23/2015 2:40 AM EDT) athologist Signature WBC 6.7 4.0 - 10.0 [...] EDT Resulting Agency Comment Spec In Lab Mariano Doyle MD HEMATOLOGY ORDERABLES Performing Organization Address City/State/ZIP Code Phon e Number [place] [phone] CERNER MILLENNIUM (ABNORMAL) Basic [...] supplied above were not validated at [facility]. Results from pediatri c patients should be [...] the following links into your internet browser. [email or web address] Specimen Anatomical Collection Method Collection Time Receive d Time (Source) Location / / Volume Laterality Blood specimen 03/23/2015 2:40 AM 015 2:55 (specimen) EDT AM EDT Resulting Agency Comment Spec In Lab Mariano Doyle MD CHEMISTRY ORDERABLES Performing Organization Address City/State/ZIP Code Phon e Number [place] [phone] CERNER MILLENNIUM (ABNORMAL) POCT [...] 5 (specimen) PM EDT 11:43 PM EDT Mariano Doyle MD POINT OF CARE TEST ORDERABLE S Performing Organization Address City/State/ZIP Code Phon e Number [address] CERNER MILLENNIUM POCT Glucose (03/22/2015 7:19 PM EDT) P athologist Signature POC Glucose 187 65 - 199 CERNER mg/dL MILLENNIUM Comment: Supplemental ranges: <140 mg/dL before meals <180 mg/dL all other times of the day Specimen Anatomical Collection Method Collection Time Receive d Time (Source) Location / / Volume Laterality Blood specimen 03/22/2015 7:19 PM 015 7:19 (specimen) EDT PM EDT Mariano Doyle MD POINT OF CARE TEST ORDERABLE S Performing Organization Address City/[facility]/ZIP Code Phon e Number [address] CERNER MILLENNIUM (ABNORMAL) APTT (03/22/2015 4:59 PM EDT) P athologist Signature PTT 84 (H) 25 - 35 sec CERNER MILLENNIUM Comment: Recommended therapeutic PTT range for fu ll dose unfractionated heparin is 80-114 seconds. Specimen Anatomical Collection Method Collection Time Receive d Time (Source) Location / / Volume Laterality Blood specimen 03/22/2015 4:59 PM 015 5:06 (specimen) EDT PM EDT Resulting Agency Comment Spec In Lab Mariano Doyle MD HEMATOLOGY ORDERABLES Performing Organization Address City/[facility]/ZIP Code Phon e Number [address] CERNER MILLENNIUM POCT Glucose (03/22/2015 4:39 PM EDT) P athologist Signature POC Glucose 148 65 - 199 CERNER mg/dL MILLENNIUM Comment: Supplemental ranges: <140 mg/dL before meals <180 mg/dL all other times of the day Specimen Anatomical Collection Method Collection Time Receive d Time (Source) Location / / Volume Laterality Blood specimen 03/22/2015 4:39 PM 015 4:39 (specimen) EDT PM EDT Mariano Doyle MD POINT OF CARE TEST ORDERABLE S Performing Organization Address City/State/ZIP Code Phon e Number [address] [facility] (ABNORMAL) POCT Glucose (03/22/2015 11:51 AM EDT) P athologist Signature POC Glucose 209 (H) 65 - 199 CERNER mg/dL [facility] Comment: Supplemental ranges: <140 mg/dL before meals <180 mg/dL all other times of the day Specimen Anatomical Collection Method Collection Time Receive d Time (Source) Location / / Volume Laterality Blood specimen 03/22/2015 11:51 5 (specimen) AM EDT 11:51 AM EDT Mariano Doyle MD POINT OF CARE TEST ORDERABLE S Performing Organization Address City/[facility]/ZIP Code Phon e Number [address] [facility] SOSA, legs, multiple levels (03/22/2015 10:54 AM EDT) Component Value Ref Test Analysis Performed At Patholo gist Range Method Time Signature VB Text VASCUBASE Report Department: Vascular Surgery Lab Patient: [id number] (CHAN PERRY) CPT Code: 84152 ICD-9: 443.89 Referring Physician: MARIANO DOYLE Indication: ?? s/p LEFT fem-susana bypass, [...] Pedis (Ankle) Arter y ?165 ? 1.09 ??Traill- Biphasic ? Posterior Tibial (Ankle) Art lucila ??153 ? 1.01 ??Traill-Biphasic ? Great Toe ?51 ? 0.34 ?? [...] / Volume Laterality 03/22/2015 10:54 AM EDT Mariano Doyle MD VASCULAR ORDERABLES Performing Organization Address City/State/ZIP Code Phon e Number [facility] (ABNORMAL) Differential, Automated (03/22/2015 9:56 AM EDT) [facility] gist Method Time Signature Neutrophils % 79.7 [...] EDT Resulting Agency Comment Spec In Lab Mariano Doyle MD HEMATOLOGY ORDERABLES Performing Organization Address City/State/[place] [address] CERNER MILLENNIUM (ABNORMAL) Hemogram [...] EDT Resulting Agency Comment Spec In Lab Mariano Doyle MD HEMATOLOGY ORDERABLES Performing Organization Address City/State/ZIP Code Phon e Number [address] [facility] ([facility]NORMAL[facility] APTT (03/22/2015 9:56 AM EDT) P athologist Signature PTT 46 (H) 25 - 35 sec [facility] Comment: Recommended therapeutic PTT range for fu ll dose unfractionated heparin is 80-114 seconds. Specimen Anatomical Collection Method Collection Time Receive d Time (Source) Location / / Volume Laterality Blood specimen 03/22/2015 9:56 AM 015 (specimen) EDT 10:20 AM EDT Resulting Agency Comment Spec In Lab Mariano Doyle MD HEMATOLOGY ORDERABLES Performing Organization Address City/State/ZIP [place] [address] [facility] POCT Glucose (03/22/2015 7:28 AM EDT) athologist Signature POC Glucose 141 65 - 199 CERNER mg/dL MILLENNIUM Comment: Supplemental ranges: <140 mg/dL before meals <180 mg/dL all other times of the day Specimen Anatomical Collection Method Collection Time Receive d Time (Source) Location / / Volume Laterality Blood specimen 03/22/2015 7:28 AM 015 7:28 (specimen) EDT AM EDT Mariano Doyle MD POINT OF CARE TEST ORDERABLE S Performing Organization Address City/State/Z[place] [address] CERNER MILLENNIUM POCT Glucose (03/22/2015 6:43 AM EDT) athologist Signature POC Glucose 139 65 - 199 CERNER mg/dL MILLENNIUM Comment: Supplemental ranges: <140 mg/dL before meals <180 mg/dL all other times of the day Specimen Anatomical Collection Method Collection Time Receive d Time (Source) Location / / Volume Laterality Blood specimen 03/22/2015 6:43 AM 015 6:43 (specimen) EDT AM EDT Mariano Doyle MD POINT OF CARE TEST ORDERABLE S Performing Organization Address City/State/ZIP Code Phon e Number [address] CERNER MILLENNIUM POCT Glucose (03/22/2015 4:00 AM EDT) athologist Signature POC Glucose 153 65 - 199 CERNER mg/dL [facility] Comment: Supplemental ranges: <140 mg/dL before meals <180 mg/dL all other times of the day Specimen Anatomical Collection Method Collection Time Receive d Time (Source) Location / / Volume Laterality Blood specimen 03/22/2015 4:00 AM 015 4:00 (specimen) EDT AM EDT Mariano Doyle MD POINT OF CARE TEST ORDERABLE S Performing Organization Address City/State/ZIP Code Phon e Number [address] CERNER MILLENNIUM Differential, Automated (03/22/2015 3:38 AM EDT) P athologist Signature Neutrophils % 65.1 % CERNER [...] EDT Resulting Agency Comment Spec In Lab Mariano Doyle MD HEMATOLOGY ORDERABLES Performing Organization Address City/State/ZIP Code Phon e Number [place] [phone] CERNER MILLENNIUM (ABNORMAL) Hemogram (03/22/2015 3:38 AM EDT) P athologist Signature WBC 7.9 4.0 - 10.0 CERNER x10(3)/mcL MILLENNIUM RBC 2.96 (L) 3.93 - CERNER 5.22 MILLENNIUM x10(6)/mcL Hemoglobin 9.0 (L) 11.2 - CERNER 15.7 gm/dL MILLENNIUM Hematocrit 26.2 (L) 34.0 - CERNER 45.0 % MILLENNIUM MCV 88.5 79.0 - CERNER 94.0 fL MILLENNIUM MCH 30.4 26.6 - CERNER 32.2 pg MILLENNIUM MCHC 34.4 32.0 - CERNER 36.5 gm/dL MILLENNIUM Platelets 176 145 - 370 CERNER x10(3)/mcL MILLENNIUM RDWSD 58.7 (H) 35.0 - CERNER 46.0 fL MILLENNIUM RDWCV 18.3 (H) 10.9 - CERNER 14.4 % MILLENNIUM MPV 11.5 9.0 - 12.0 CERNER fL MILLENNIUM Specimen Anatomical Collection Method Collection Time Receive d Time (Source) Location / / Volume Laterality Blood specimen 03/22/2015 3:38 AM 015 3:49 (specimen) EDT AM EDT Resulting Agency Comment Spec In Lab Mariano Doyle MD HEMATOLOGY ORDERABLES Performing Organization Address City/[facility]/ZIP [place] [address] [facility] MILLENNIUM (ABNORMAL) Prothrombin Time (03/22/2015 3:38 AM EDT) athologist Signature PT 20.0 (H) 12.0 - 15.0 CERNER sec MILLENNIUM [...] EDT Resulting Agency Comment Spec In Lab Mariano Doyle MD HEMATOLOGY ORDERABLES Performing Organization Address City/[facility]/ZIP [place] [address] [facility] MILLENNIUM (ABNORMAL) Basic Metabolic Panel (non-fasting) (03/22/2015 3:38 AM EDT) athologist Signature Glucose Lvl 158 65 - 199 CERNER mg/dL [facility]ILL[facility]UM Comment: Diabetes: >=200 mg/dL plus symp toms BUN 8 8 - 18 mg/dL CERNER MILLENNIUM Creatinine 0.42 (L) 0.70 - 1.20 mg/dL CERNER MILL ENNIUM Comment: Please note that the pediatric reference intervals supplied above were not validated at [facility]. Results from pediatri c patients should be [...] the following links into your internet browser. [email or web address] Specimen Anatomical Collection Method Collection Time Receive d Time (Source) Location / / Volume Laterality Blood specimen 03/22/2015 3:38 AM 015 3:49 (specimen) EDT AM EDT Resulting Agency Comment Spec In Lab Mariano Doyle MD CHEMISTRY ORDERABLES Performing Organization Address City/[facility]/ZIP Code Phon e Number [address] CERNER MILLENNIUM POCT Glucose (03/22/2015 12:23 AM EDT) P athologist Signature POC Glucose 148 65 - 199 CERNER mg/dL MILLENNIUM Comment: Supplemental ranges: <140 mg/dL before meals <180 mg/dL all other times of the day Specimen Anatomical Collection Method Collection Time Receive d Time (Source) Location / / Volume Laterality Blood specimen 03/22/2015 12:23 5 (specimen) AM EDT 12:23 AM EDT Mariano Doyle MD POINT OF CARE TEST ORDERABLE S Performing Organization Address City/[facility]/ZIP Code Phon e Number [address] CERNER MILLENNIUM POCT Glucose (03/21/2015 7:09 PM EDT) P athologist Signature POC Glucose 172 65 - 199 CERNER mg/dL MILLENNIUM Comment: Supplemental ranges: <140 mg/dL before meals <180 mg/dL all other times of the day Specimen Anatomical Collection Method Collection Time Receive d Time (Source) Location / / Volume Laterality Blood specimen 03/21/2015 7:09 PM 015 7:09 (specimen) EDT PM EDT Mariano Doyle MD POINT OF CARE TEST ORDERABLE S Performing Organization Address City/State/ZIP Code Phon e Number [address] CERNER MILLENNIUM POCT Glucose (03/21/2015 4:22 PM EDT) P athologist Signature POC Glucose 154 65 - 199 CERNER mg/dL [facility] Comment: Supplemental ranges: <140 mg/dL before meals <180 mg/dL all other times of the day Specimen Anatomical Collection Method Collection Time Receive d Time (Source) Location / / Volume Laterality Blood specimen 03/21/2015 4:22 PM 015 4:22 (specimen) EDT PM EDT Mariano Doyle MD POINT OF CARE TEST ORDERABLE S Performing Organization Address City/State/ZIP [place] [address] [facility] CAPOENNIUM Transfuse RBC (03/21/2015 2:14 PM EDT) Mariano Doyle MD NURSING TREATMENT ORDERABLES - BLOOD ADMIN Transfuse RBC (03/21/2015 2:14 PM EDT) Mariano Doyle MD NURSING TREATMENT ORDERABLES - BLOOD ADMIN POCT Glucose (03/21/2015 11:14 AM EDT) athologist Signature POC Glucose 196 65 - 199 CERNER mg/dL [facility] Comment: Supplemental ranges: <140 mg/dL before meals <180 mg/dL all other times of the day Specimen Anatomical Collection Method Collection Time Receive d Time (Source) Location / / Volume Laterality Blood specimen 03/21/2015 11:14 5 (specimen) AM EDT 11:14 AM EDT Mariano Doyle MD POINT OF CARE TEST ORDERABLE S Performing Organization Address City/State/ZIP Code Phon e Number [address] [facility] CAPOBANNER [facility]UM ABO/Rh Typing (03/21/2015 9:31 AM EDT) athologist Signature ABORh Type A Neg [facility] Specimen Anatomical Collection Method Collection Time Receive d Time (Source) Location / / Volume Laterality Blood specimen Venous Draw / 03/21/2015 9:31 AM 2014 9:44 (specimen) Unknown EDT AM EDT Resulting Agency Comment Spec In Lab Mariano Doyle MD BLOOD BANK ORDERABLES Performing Organization Address City/State/ZIP Code Phon e Number [address] [facility] CAPOBANNER [facility] Antibody screen (03/21/2015 9:31 AM EDT) [facility] Method Time Signature Ab Screen Negative [facility] Interp [facility] Expires at 03/24/2015 DANIEL [id number] on: CAPOENNIUM Specimen Anatomical Collection Method Collection Time Receive d Time (Source) Location / / Volume Laterality Blood specimen 03/21/2015 9:31 AM 015 9:44 (specimen) EDT AM EDT Resulting Agency Comment Spec In Lab Mariano Doyle MD BLOOD BANK ORDERABLES Performing Organization Address City/[facility]/ZIP [place] [address] [facility] EKG 12 Lead (03/21/2015 9:16 AM EDT) Component Value Ref Range Test Analysis Performed Pathologis t Method Time At Signature Ventricular rate 83 BPM MUSE SYSTEM Atrial Rate 83 BPM MUSE SYSTEM P-R Interval 134 ms MUSE SYSTEM QRS Duration 80 ms MUSE SYSTEM Q-T Interval 364 ms MUSE SYSTEM QTC Calculated 427 ms MUSE SYSTEM (Bezet) Calculated P [place] 51 degrees MUSE SYSTEM Calculated R [place] 3 degrees MUSE SYSTEM Calculated T [place] -11 degrees MUSE SYSTEM INTERPRETATION Normal sinus [...] 9:16 AM 5 8:43 EDT PM EDT Mariano Doyle MD ECG ORDERABLES Performing Organization Address [facility] Phon e Number MUSE SYSTEM Prepare RBC (03/21/2015 9:05 AM EDT) P athologist Signature Dispensed? Yes [facility] Specimen Anatomical Collection Method Collection Time Receive d Time (Source) Location / / Volume Laterality Blood specimen 03/21/2015 9:05 AM 015 9:04 (specimen) EDT AM EDT Resulting Agency Comment Spec In Lab Mariano Doyle MD BLOOD BANK ORDERABLES Performing Organization Address City/[facility]/ZIP [place] [address] [facility] POCT Glucose (03/21/2015 7:00 AM EDT) P athologist Signature POC Glucose 166 65 - 199 CERNER mg/dL [facility]NIUM Comment: Supplemental ranges: <140 mg/dL before meals <180 mg/dL all other times of the day Specimen Anatomical Collection Method Collection Time Receive d Time (Source) Location / / Volume Laterality Blood specimen 03/21/2015 7:00 AM 015 7:00 (specimen) EDT AM EDT Mariano Doyle MD POINT OF CARE TEST ORDERABLE S Performing Organization Address City/State/ZIP Code Phon e Number [address] CERNER MILLENNIUM (ABNORMAL) APTT [...] EDT Resulting Agency Comment Spec In Lab Mariano Doyle MD HEMATOLOGY ORDERABLES Performing Organization Address City/[facility]/ZIP Code Phon e Number [address] CERNER MILLENNIUM (ABNORMAL) Differential, [...] EDT Resulting Agency Comment Spec In Lab Mariano Doyle MD HEMATOLOGY ORDERABLES Performing Organization Address City/State/ZIP [place] [address] CERNER MILLENNIUM (ABNORMAL) Hemogram [...] EDT Resulting Agency Comment Spec In Lab Mariano Doyle MD HEMATOLOGY ORDERABLES Performing Organization Address [facility] Phon e Number [address] CERNER MILLENNIUM (ABNORMAL) Prothrombin [...] EDT Resulting Agency Comment Spec In Lab Mariano Doyle MD HEMATOLOGY ORDERABLES Performing Organization Address City/[facility] Code Phon e Number [address] CERNER MILLENNIUM (ABNORMAL) Basic Metabolic Panel (non-fasting) (03/21/2015 6:01 AM EDT) athologist Signature Glucose Lvl 173 65 - 199 CERNER mg/dL [facility]NI[facility] Comment: Diabetes: >=200 mg/dL plus symp toms BUN 5 (L) 8 - 18 mg/dL CERNER MILLENNIUM Creatinine 0.41 (L) 0.70 - 1.20 mg/dL CERNER MILL ENNIUM Comment: Please note that the pediatric reference intervals supplied above were not validated at [facility]. Results from pediatri c patients should be [...] the following links into your internet browser. [email or web address] Specimen Anatomical Collection Method Collection Time Receive d Time (Source) Location / / Volume Laterality Blood specimen 03/21/2015 6:01 AM 015 6:19 (specimen) EDT AM EDT Resulting Agency Comment Spec In Lab Mariano Doyle MD CHEMISTRY ORDERABLES Performing Organization Address City/State/[place] [address] CERNER MILLENNIUM POCT Glucose (03/21/2015 4:18 AM EDT) P athologist Signature POC Glucose 193 65 - 199 CERNER mg/dL [facility]ILLENNIUM Comment: Supplemental ranges: <140 mg/dL before meals <180 mg/dL all other times of the day Specimen Anatomical Collection Method Collection Time Receive d Time (Source) Location / / Volume Laterality Blood specimen 03/21/2015 4:18 AM 015 4:18 (specimen) EDT AM EDT Mariano Doyle MD POINT OF CARE TEST ORDERABLE S Performing Organization Address City/State/ZIP [place] [address] CERNER MILLENNIUM POCT Glucose (03/20/2015 11:52 PM EDT) P athologist Signature POC Glucose 172 65 - 199 CERNER mg/dL MILLENNIUM Comment: Supplemental ranges: <140 mg/dL before meals <180 mg/dL all other times of the day Specimen Anatomical Collection Method Collection Time Receive d Time (Source) Location / / Volume Laterality Blood specimen 03/20/2015 11:52 5 (specimen) PM EDT 11:52 PM EDT Mariano Doyle MD POINT OF CARE TEST ORDERABLE S Performing Organization Address City/[facility]/ZIP Code Phon e Number [address] CERNER MILLENNIUM (ABNORMAL) APTT (03/20/2015 11:52 PM EDT) P athologist Signature PTT 88 (H) 25 - 35 sec CERNER MILLENNIUM Comment: Recommended therapeutic PTT range for fu ll dose unfractionated heparin is 80-114 seconds. Specimen Anatomical Collection Method Collection Time Receive d Time (Source) Location / / Volume Laterality Blood specimen 03/20/2015 11:52 5 (specimen) PM EDT 11:56 PM EDT Resulting Agency Comment Spec In Lab Mariano Doyle MD HEMATOLOGY ORDERABLES Performing Organization Address City/[facility]/ZIP [place] [address] CERNER MILLENNIUM POCT Glucose (03/20/2015 6:59 PM EDT) P athologist Signature POC Glucose 193 65 - 199 CERNER mg/dL MILLENNIUM Comment: Supplemental ranges: <140 mg/dL before meals <180 mg/dL all other times of the day Specimen Anatomical Collection Method Collection Time Receive d Time (Source) Location / / Volume Laterality Blood specimen 03/20/2015 6:59 PM 015 6:59 (specimen) EDT PM EDT Mariano Doyle MD POINT OF CARE TEST ORDERABLE S Performing Organization Address City/[facility]/[place]IP [place] [address] CERNER MILLENNIUM (ABNORMAL) APTT (03/20/2015 6:01 PM EDT) P [...] EDT Resulting Agency Comment Spec In Lab Mariano Doyle MD HEMATOLOGY ORDERABLES Performing Organization Address City/[facility]/ZIP Code Phon e Number [address] [facility] MILLENNIUM POCT Glucose (03/20/2015 4:28 PM EDT) P athologist Signature POC Glucose 184 65 - 199 CERNER mg/dL IUM Comment: Supplemental ranges: <140 mg/dL before meals <180 mg/dL all other times of the day Specimen Anatomical Collection Method Collection Time Receive d Time (Source) Location / / Volume Laterality Blood specimen 03/20/2015 4:28 PM 015 4:28 (specimen) EDT PM EDT Mariano Doyle MD POINT OF CARE TEST ORDERABLE S Performing Organization Address City/[facility]/[place] [address] CERNER MILLENNIUM (ABNORMAL) APTT (03/20/2015 11:46 AM EDT) P athologist Signature PTT 137 25 - 35 [...] EDT Resulting Agency Comment Spec In Lab Mariano Doyle MD HEMATOLOGY ORDERABLES Performing Organization Address City/State/ZIP [place] [address] CERNER MILLENNIUM (ABNORMAL) POCT Glucose (03/20/2015 11:31 AM EDT) athologist Signature POC Glucose 204 (H) 65 - 199 [facility] Comment: Supplemental ranges: <140 mg/dL before meals <180 mg/dL all other times of the day Specimen Anatomical Collection Method Collection Time Receive d Time (Source) Location / / Volume Laterality Blood specimen 03/20/2015 11:31 5 (specimen) AM EDT 11:31 AM EDT Mariano Doyle MD POINT OF CARE TEST ORDERABLE S Performing Organization Address City/[facility]/[place] [address] CERNER MILLENNIUM (ABNORMAL) Prothrombin Time (03/20/2015 6:02 AM EDT) athologist Signature PT 23.9 (H) 12.0 - 15.0 [facility] sec [facility] Comment: Transfusion Committee Guidelines: INR less than 2.0, PTT less than OR equal to 43.5 seconds, or Fibrinogen greater t romero or equal to 100 mg/dl indicate adequate procoagulant activity for hemos tasis in patients without underlying bleeding disorders. INR 2.1 (H) 0.9 - 1.1 [facility] Specimen Anatomical Collection Method Collection Time Receive d Time (Source) Location / / Volume Laterality Blood specimen Venous Draw / 03/20/2015 6:02 AM 2014 6:10 (specimen) Unknown EDT AM EDT Resulting Agency Comment Spec In Lab Mariano Doyle MD HEMATOLOGY ORDERABLES Performing Organization Address City/[facility]/ZIP [place] [address] CERNER MILLENNIUM (ABNORMAL) APTT [...] EDT Resulting Agency Comment Spec In Lab Mariano Doyle MD HEMATOLOGY ORDERABLES Performing Organization Address City/State/ZIP Code Phon e Number [place] [id number] CERNER MILLENNIUM (ABNORMAL) Differential, Automated (03/20/2015 6:02 AM EDT) Patholo gist Method Time Signature Neutrophils % 73.6 % [...] EDT Resulting Agency Comment Spec In Lab Mariano Doyle MD HEMATOLOGY ORDERABLES Performing Organization Address City/[facility]/ZIP [place] [address] CERNER MILLENNIUM (ABNORMAL) Hemogram [...] EDT Resulting Agency Comment Spec In Lab Mariano Doyle MD HEMATOLOGY ORDERABLES Performing Organization Address City/State/[place] [address] CERNER MILLENNIUM (ABNORMAL) Basic [...] supplied above were not validated at [facility]. Results from pediatri c patients should be [...] the following links into your internet browser. [email or web address] Specimen Anatomical Collection Method Collection Time Receive d Time (Source) Location / / Volume Laterality Blood specimen 03/20/2015 6:02 AM 015 6:10 (specimen) EDT AM EDT Resulting Agency Comment Spec In Lab Mariano Doyle MD CHEMISTRY ORDERABLES Performing Organization Address City/State/[place] [address] CERNER MILLENNIUM POCT Glucose (03/20/2015 5:51 AM EDT) athologist Signature POC Glucose 192 65 - 199 CERNER mg/dL MILLENNIUM Comment: Supplemental ranges: <140 mg/dL before meals <180 mg/dL all other times of the day Specimen Anatomical Collection Method Collection Time Receive d Time (Source) Location / / Volume Laterality Blood specimen 03/20/2015 5:51 AM 015 5:51 (specimen) EDT AM EDT Mariano Doyle MD POINT OF CARE TEST ORDERABLE S Performing Organization Address City/State/ZIP Code Phon e Number [address] CERNER MILLENNIUM POCT Glucose (03/20/2015 1:53 AM EDT) athologist Signature POC Glucose 176 65 - 199 CERNER mg/dL MILLENNIUM Comment: Supplemental ranges: <140 mg/dL before meals <180 mg/dL all other times of the day Specimen Anatomical Collection Method Collection Time Receive d Time (Source) Location / / Volume Laterality Blood specimen 03/20/2015 1:53 AM 015 1:53 (specimen) EDT AM EDT Mariano Doyle MD POINT OF CARE TEST ORDERABLE S Performing Organization Address City/[facility]/ZIP Code Phon e Number [address] CERNER MILLENNIUM (ABNORMAL) APTT (03/19/2015 10:27 PM EDT) athologist Signature PTT 69 (H) 25 - 35 sec CERNER MILLENNIUM Comment: Recommended therapeutic PTT range for fu ll dose unfractionated heparin is 80-114 seconds. Specimen Anatomical Collection Method Collection Time Receive d Time (Source) Location / / Volume Laterality Blood specimen 03/19/2015 10:27 5 (specimen) PM EDT 10:32 PM EDT Resulting Agency Comment Spec In Lab Mariano Doyle MD HEMATOLOGY ORDERABLES Performing Organization Address City/[facility]/ZIP Code Phon e Number [address] CERNER MILLENNIUM POCT Glucose (03/19/2015 9:27 PM EDT) athologist Signature POC Glucose 171 65 - 199 CERNER mg/dL [facility] Comment: Supplemental ranges: <140 mg/dL before meals <180 mg/dL all other times of the day Specimen Anatomical Collection Method Collection Time Receive d Time (Source) Location / / Volume Laterality Blood specimen 03/19/2015 9:27 PM 015 9:27 (specimen) EDT PM EDT Mariano Doyle MD POINT OF CARE TEST ORDERABLE S Performing Organization Address City/[facility]/ZIP Code Phon e Number [address] [facility]ER [facility] PO[facility] Glucose (03/19/2015 5:37 PM EDT) athologist Signature POC Glucose 151 65 - 199 CERNER mg/dL [facility] Comment: Supplemental ranges: <140 mg/dL before meals <180 mg/dL all other times of the day Specimen Anatomical Collection Method Collection Time Receive d Time (Source) Location / / Volume Laterality Blood specimen 03/19/2015 5:37 PM 015 5:37 (specimen) EDT PM EDT Mariano Doyle MD POINT OF CARE TEST ORDERABLE S Performing Organization Address City/[facility]/ZIP Code Phon e Number [address] [facility]ER [facility]) APTT (03/19/2015 2:44 PM EDT) athologist Signature PTT >160.0 25 - 35 CERNER (Critical) [facility] Comment: Called by: , Read back by: maxine dwyer nd/3W, Date/Time: 03/19/15 15:23. Recommended therapeutic PTT range for fu ll dose unfractionated heparin is 80-114 seconds. Specimen Anatomical Collection Method Collection Time Receive d Time (Source) Location / / Volume Laterality Blood specimen 03/19/2015 2:44 PM 015 2:53 (specimen) EDT PM EDT Resulting Agency Comment Spec In Lab Mariano Doyle MD HEMATOLOGY ORDERABLES Performing Organization Address City/[facility]/ZIP Code Phon e Number [address] CERNER MILLENNIUM POCT Glucose (03/19/2015 1:28 PM EDT) athologist Signature POC Glucose 178 65 - 199 CERNER mg/dL MILLENNIUM Comment: Supplemental ranges: <140 mg/dL before meals <180 mg/dL all other times of the day Specimen Anatomical Collection Method Collection Time Receive d Time (Source) Location / / Volume Laterality Blood specimen 03/19/2015 1:28 PM 015 1:28 (specimen) EDT PM EDT Mariano Doyle MD POINT OF CARE TEST ORDERABLE S Performing Organization Address City/[facility]/ZIP Code Phon e Number [address] CERNER MILLENNIUM POCT Glucose (03/19/2015 9:42 AM EDT) athologist Signature POC Glucose 136 65 - 199 CERNER mg/dL MILLENNIUM Comment: Supplemental ranges: <140 mg/dL before meals <180 mg/dL all other times of the day Specimen Anatomical Collection Method Collection Time Receive d Time (Source) Location / / Volume Laterality Blood specimen 03/19/2015 9:42 AM 015 9:42 (specimen) EDT AM EDT Mariano Doyle MD POINT OF CARE TEST ORDERABLE S Performing Organization Address City/State/ZIP Code Phon e Number [address] CERNER MILLENNIUM (ABNORMAL) Prothrombin Time (03/19/2015 9:05 AM EDT) athologist Signature PT 15.2 (H) 12.0 - 15.0 CERNER sec MILLENNIUM Comment: [facility] Transfusion Committee Guidelines: INR less than 2.0, PTT less than OR equal to 43.5 seconds, or Fibrinogen greater t romero or equal to 100 mg/dl indicate adequate procoagulant activity for hemos tasis in patients without underlying bleeding disorders. INR 1.2 (H) 0.9 - 1.1 CERNER MILLENNIUM Specimen Anatomical Collection Method Collection Time Receive d Time (Source) Location / / Volume Laterality Blood specimen Venous Draw / 03/19/2015 9:05 AM 2014 9:26 (specimen) Unknown EDT AM EDT Resulting Agency Comment Spec In Lab Mariano Doyle MD HEMATOLOGY ORDERABLES Performing Organization Address City/[facility]/ZIP Code Phon e Number [address] CERNER MILLENNIUM (ABNORMAL) APTT (03/19/2015 9:05 AM EDT) athologist Signature PTT 43 (H) 25 - 35 sec CERNER MILLENNIUM Comment: Recommended therapeutic PTT range for fu ll dose unfractionated heparin is 80-114 seconds. Specimen Anatomical Collection Method Collection Time Receive d Time (Source) Location / / Volume Laterality Blood specimen 03/19/2015 9:05 AM 015 9:26 (specimen) EDT AM EDT Resulting Agency Comment Spec In Lab Mariano Doyle MD HEMATOLOGY ORDERABLES Performing Organization Address City/[facility]/ZIP [facility] [place] [address] CERNER MILLENNIUM (ABNORMAL) Basic [...] supplied above were not validated at [facility]. Results from pediatri c patients should be [...] 8.5 - 10.5 mg/dL CERNER [facility] NIUM Comment: result rechecked-tb Estimated GFR >60 >=60 CERNER MILLENNIU M [...] the following links into your internet browser. [email or web address] Specimen Anatomical Collection Method Collection Time Receive d Time (Source) Location / / Volume Laterality Blood specimen 03/19/2015 9:05 AM 015 9:26 (specimen) EDT AM EDT Resulting Agency Comment Spec In Lab Mariano Doyle MD CHEMISTRY ORDERABLES Performing Organization Address City/State/ZIP Code Phon e Number [address] [facility] KAILAIUM POCT Glucose (03/19/2015 4:31 AM EDT) athologist Signature POC Glucose 190 65 - 199 CERNER mg/dL [facility] Comment: Supplemental ranges: <140 mg/dL before meals <180 mg/dL all other times of the day Specimen Anatomical Collection Method Collection Time Receive d Time (Source) Location / / Volume Laterality Blood specimen 03/19/2015 4:31 AM 015 4:31 (specimen) EDT AM EDT Mariano Doyle MD POINT OF CARE TEST ORDERABLE S Performing Organization Address City/[facility]/ZIP Code Phon e Number [address] [facility] MILLENNIUM (ABNORMAL) Differential, Automated (03/19/2015 2:35 AM [...] EDT Resulting Agency Comment Spec In Lab Mariano Doyle MD HEMATOLOGY ORDERABLES Performing Organization Address City/State/[place] [address] CERNER MILLENNIUM (ABNORMAL) Hemogram (03/19/2015 2:35 AM EDT) P athologist Signature WBC 14.5 (H) 4.0 - 10.0 CERNER x10(3)/mcL MILLENNIUM RBC 3.25 (L) 3.93 - CERNER 5.22 MILLENNIUM x10(6)/mcL Hemoglobin 10.4 (L) 11.2 - CERNER 15.7 gm/dL MILLENNIUM Hematocrit 30.5 (L) 34.0 - CERNER 45.0 % MILLENNIUM MCV 93.8 79.0 - CERNER 94.0 fL MILLENNIUM MCH 32.0 26.6 - CERNER 32.2 pg MILLENNIUM MCHC 34.1 32.0 - CERNER 36.5 gm/dL MILLENNIUM Platelets 187 145 - 370 CERNER x10(3)/mcL MILLENNIUM RDWSD 47.4 (H) 35.0 - CERNER 46.0 fL ENNIUM RDWCV 13.8 10.9 - CERNER 14.4 % MILLENNIUM MPV 11.4 9.0 - 12.0 [facility] fL [facility] Specimen Anatomical Collection Method Collection Time Receive d Time (Source) Location / / Volume Laterality Blood specimen 03/19/2015 2:35 AM 015 2:42 (specimen) EDT AM EDT Resulting Agency Comment Spec In Lab Mariano Doyle MD HEMATOLOGY ORDERABLES Performing Organization Address City/State/ZIP Code Phon e Number [address] [facility] (ABNORMAL) APTT (03/19/2015 2:35 AM EDT) P athologist Signature PTT 41 (H) 25 - 35 sec [facility] Comment: Recommended therapeutic PTT range for fu ll dose unfractionated heparin is 80-114 seconds. Specimen Anatomical Collection Method Collection Time Receive d Time (Source) Location / / Volume Laterality Blood specimen 03/19/2015 2:35 AM 015 2:42 (specimen) EDT AM EDT Resulting Agency Comment Spec In Lab Mariano Doyle MD HEMATOLOGY ORDERABLES Performing Organization Address City/State/ZIP Code Phon e Number [address] [facility] POCT Glucose (03/19/2015 1:38 AM EDT) P athologist Signature POC Glucose 197 65 - 199 [facility] Comment: Supplemental ranges: <140 mg/dL before meals <180 mg/dL all other times of the day Specimen Anatomical Collection Method Collection Time Receive d Time (Source) Location / / Volume Laterality Blood specimen 03/19/2015 1:38 AM 015 1:38 (specimen) EDT AM EDT Mariano Doyle MD POINT OF CARE TEST ORDERABLE S Performing Organization Address City/[facility]/ZIP [place] [address] CERNER MILLENNIUM (ABNORMAL) Hemogram (03/18/2015 11:10 PM EDT) P athologist Signature WBC 14.2 (H) 4.0 - [...] EDT Resulting Agency Comment Spec In Lab Mariano Doyle MD HEMATOLOGY ORDERABLES Performing Organization Address City/[facility]/ZIP [place] [address] CERNER MILLENNIUM POCT Glucose [...] PM 015 7:52 (specimen) EDT PM EDT Mariano Doyle MD POINT OF CARE TEST ORDERABLE S Performing Organization Address City/[facility]/ZIP [place] [address] CERNER MILLENNIUM APTT (03/18/2015 [...] EDT Resulting Agency Comment Spec In Lab Mariano Doyle MD HEMATOLOGY ORDERABLES Performing Organization Address City/[facility]/ZIP [place] [address] CERNER MILLENNIUM (ABNORMAL) Hemogram [...] NNIUM Platelets 178 145 - 370 x10(3)/mcL [facility] LLENNIUM RDWSD 45.8 35.0 - 46.0 fL [facility] RDWCV 13.8 10.9 - 14.4 % [facility] MPV 11.2 9.0 - 12.[address] [facility] MILLENNIU M Specimen Anatomical Collection Method Collection Time Receive d Time (Source) Location / / Volume Laterality Blood specimen 03/18/2015 7:42 PM 015 7:53 (specimen) EDT PM EDT Resulting Agency Comment Spec In Lab Mariano Doyle MD HEMATOLOGY ORDERABLES Performing Organization Address City/State/ZIP Code Phon e Number [place] [phone] [facility] (ABNORMAL) BLOOD GAS 2 ARTERIAL (03/18/2015 2:24 PM EDT) Analysis Performed At Patho logist Time Signature pH Art 7.45 [facility] pCO2 Art 32 (L) mmHg [facility] MILLENNIUM pO2 Art 339 (H) mmHg [facility] MILLENNIUM HCO3 Art 21.7 mmol/L [facility] BE Art -2.3 mmol/L [facility] MILLENNIUM Hgb Blood Gas 12.3 gm/dL [facility] O2HB Art 98.6 (H) % [facility] MILLENNIUM COHB Art 1.0 % [facility] MILLENNIUM Comment: Nonsmokers: 0.5-1.5% COHB Smokers: Variable, but usually less than 10% Toxic: 20-30% COHB Lethal: Greater than 60% COHB METHB Art 0.3 % [facility] MILLENNIUM Na Whole Blood 138 mmol/L [facility] K Whole Blood 3.2 (L) mmol/L [facility] Comment: Please note: Patients with WBC >100,000 may have falsely elevated Potassium levels. Contact the Clinical Chemistry L aboratory if there are any questions. ICa Whole Blood 1.14 (L) mmol/L [facility] MILLENN IUM Comment: Note: ??Total bilirubin higher than 20 m g/dL may lead to falsely low ionized calcium. CL Whole Blood 107 mmol/L [facility] MILLENNI UM Gluc Whole Bld 127 mg/dL CERNER MILLENNI UM Comment: Diabetes: >=200 mg/dL plus symp toms. FIO2 Art 67 % CERNER MILLENNIUM Flow Art 1.3 LPM CERNER MILLENNIUM PF Ratio Art 506 CERNER MILLENNIUM Temp Art 36.1 Celsius CERNER MILLENNIUM Specimen Anatomical Collection Method Collection Time Receive d Time (Source) Location / / Volume Laterality Blood specimen 03/18/2015 2:24 PM 015 2:24 (specimen) EDT PM EDT Mariano Doyle MD CHEMISTRY ORDERABLES Performing Organization Address City/State/Z[place] [address] CERNER MILLENNIUM Unilat Bypass Graft Assess (03/18/2015 1:42 PM EDT) Component Value Ref Test Analysis Performed At [facility] Range Method Time Signature VB Text VASCUBASE Report Department: Vascular Surgery Lab Patient: [id number] (CHAN PERRY) CPT Code: 97429 ICD-9: 443.89 Referring Physician: MARIANO DOYLE Indication: ??Intraoperative duplex of left Fem-Per [...] / Volume Laterality 03/18/2015 1:42 PM EDT Mariano Doyle MD VASCULAR ORDERABLES Performing Organization Address City/State/ZIP Code Phon e Number VASCUBASE POCT Glucose (03/18/2015 10:42 AM EDT) athologist Signature POC Glucose 144 65 - 199 CERNER mg/dL [facility] Comment: Supplemental ranges: <140 mg/dL before meals <180 mg/dL all other times of the day Specimen Anatomical Collection Method Collection Time Receive d Time (Source) Location / / Volume Laterality Blood specimen 03/18/2015 10:42 5 (specimen) AM EDT 10:42 AM EDT Mariano Doyle MD POINT OF CARE TEST ORDERABLE S Performing Organization Address City/State/ZIP [place] [address] [facility] documented in this encounter Visit Diagnoses Not on filedocumented in this encounter Administered Medications Inactive Administered Medications - up to 3 most recent administrations Medication Order MAR Action Action Date Dose Rate Site gelatin adsorbable Given 03/18/2015 4:29 PM 9 each 19- Surgical Site (GELFOAM) sponge EDT ONCE PRN, Starting on Sat03/18/15 at 1629, Until 03/19/15 at 0000, Intra-Operative (Intra-Procedure) papaverine injection Given 03/18/2015 6:27 PM EDT 60 mg 19- S urgical Site ONCE PRN, Starting on Sat03/18/15 at 1827, Until 03/19/15 at 0000, Intra-Operative (Intra-Procedure), Routine thrombin (Bovine) Given 03/18/2015 4:30 PM 20,000 Units 19- Surgical Site (THROMBINAR) kit EDT ONCE PRN, Starting on Sat03/18/15 at 1630, Until 03/19/15 at 0000, Intra-Operative (Intra-Procedure) documented in this encounter Active and Recently Administered Medications Times are shown in EDT. Scheduled Medication Order 03/22/2015 03/23/2015 03/24/2015 acetaminophen (TYLENOL) tablet 500 mg (CANCELED) 0036 (Given - Provider: Amita Anderson, JOSEPH)0358 (Given - Provider: Amita Anderson RN)0928 (Given - Provider: Radha Krishna, JOSEPH)1304 (Given - Provider: Radha Krishna, JOSEPH)1712 (Given - Provider: Radha rKishna, JOSEPH) 0540 (Given - Provider: Nereida Shipman RN)0800 [...] Oral, EVERY 4 HOURS, First dose on Sat03/20/15 at 1200, Until Discontinued, Maximum dose of acetaminophen is 4000 mg from all sources in 24 hours., Routine 2024 (Given - Provider: Nereida Shipman RN)235 (Given - Provider: Nereida Shipman RN) 203 (Given - Provider: Severo Madrigal RN) aspirin EC tablet 81 mg (CANCELED) 0928 (Given - Provider: Chapito Krishna RN) 0820 (Given - Provider: Crystal Harris RN) 0820 (Given - Provider: Troy Ha RN) 81 mg, Oral, DAILY, First dose on Sat 06/21 at 0900, Until Discontinued, Routine bisacodyl (DULCOLAX) EC tablet 10 mg (CANCELED) 2024 ( Given - Provider: Nereida Shipman RN) 0819 (Given - Provider: Crystal Harris RN) 0816 [...] (CAN CELED) 0036 (Given - Provider: Amita Anderson, JOSEPH)0404 (Given - Provider: Amita Anderson RN)0928 (Given - Provider: Radha Krishna, JOSEPH)1304 (Given - Provider: Radha Krishna, JOSEPH)1712 (Given - Provider: Radha Krishna, JOSEPH) 0445 (Given - Provider: Nereida Shipman RN)0821 (Given - Provider: Crystal Harris RN)1159 (Given - Provider: Crystal Harris RN)1709 (Given - Provider: Crystal Harris, JOSEPH)1903 (Given - Provider: Crystal Harris RN) 0048 (Given - Provider: Severo Madrigal RN)0448 (Given - Provider: Severo Madrigal RN)0815 (Given - Provider: Troy Ha RN)1205 (Given - Provider: Troy Ha RN) 1-4 Units, Subcutaneous, EVERY 4 HOURS, First dose on 03/19/15 at 0130, Until Discontinued, CORRECTION BOLUS Sensitive to insulin lean patient or total daily dose of all insulin needed to achieve 2000 (Given - Provider: Nereida Shipman RN)2359 (Given [...] Routine lisinopril (PRINIVIL;ZESTRIL) tablet 5 mg (CANCELED) 1125 (Given - Provider: Troy Ha RN - [...] 1) One bowel movement at least ev lucila 48 hours, AND 2) Without straining. If [...] (K-DUR/KLOR-CON) extended release tablet 40 mEq (COMPLETED) 112 (Given - Provider: Troy Ha RN) 40 mEq, Oral, ONCE, 1 dose, Sat03/24/15 at 1200, 20 mEq tablet may be dissolved in water for administration, Routine senna-docusate (PERICOLACE) 8.6-50 mg per tablet 2 tab let (CANCELED) 2024 (Given - Provider: Nereida Shipman RN) 08 (Given - Provider: Crystal Harris RN)2035 (Given - Provider: Severo Madrigal RN) 0900 [...] Routine warfarin (COUMADIN) tablet 3 mg (COMPLETED) 1712 (Give n - Provider: Radha Krishna RN) 3 mg, Oral, ONCE, 1 dose, Tu03/22/15 at 1700, Routine warfarin (COUMADIN) tablet 3 mg (COMPLETED) 1708 (Given - Provider: Crystal Harris RN) 3 [...] than 145 sec X 2 - call [facility] vinita officer See Bolus dosing guidance for aPTT [...] mg 0 036 (Given - Provider: Amita Anderson, JOSEPH)1304 (Given - Provider: Radha Krishna, JOSEPH)1712 (Given - Provider: Radha Krishna RN) 2038 (Given - Provider: Severo Madrigal, JOSEPH) 0044 (Given - Provider: Severo Madrigal, JOSEPH) 5 mg, Oral, EVERY 4 HOURS PRN, Starting 03/20/15 at 1053, Until Yadira 03/24/15 at 1742, Pain, mild to moderate pain (1-6), May give an additional 5 mg in 30 minutes once if pain not relieved., Routine documented in this encounter Care Teams Risk Consulting Treasury Director Relationship Specialty Start Date End Date Shirley Cardenas APRN PCP - General 02/15/15 03/31/15 documented as of this encounter
--- OUTSIDE RECORDS SUMMARY | 2022-01-25 01:01 | XMS_ITS | Encounter Summary ---
:1950 Author Organization [facility] Address [address] [place] [address] Care Team Providers Name Role Phone Shirley Cardenas BUCKLE WIRE INSERTER Primary Care Provider Encounter Details Date Type Department Care Team Description 03/17/2015 Notes Only Cardiology Baudilio Bassett MD [facility] [place] [address] CARDIOLOGY DEPT. [phone] [place], [place] [address] (Wo rk) Social History Tobacco Use Types Packs/Day Years Used Date Never Smoker Alcohol Use Standard Drinks/Week Comments No 0 (1 standard drink = 0.6 oz pure alcoho l) Sex Assigned at Date Recorded Not on file documented as of this encounter Progress Notes Baudilio Bassett MD - 03/17/2015 9:15 PM EDT I have spoken with Dr. Doyle and Sheela Syed-Clarita DNP, FERMENTOLOGIST-BC, BUCKLE WIRE INSERTER about this patient who has restpain in her leg due to vascular insufficiency and needs urgent revascularization procedure. She alsohad an abnormal stress echo as noted in the record. I have reviewed the stress echo which shows evidence of disease in two areas. I have not personally interviewed or examined this patient but she has been found to have stable angina. Based on the clinical urgency for leg revascularization, her clinical cardiac stability, her stress echo and discussion with Dr. Doyle I agree that our best approach isto proceed with vascular surgery as planned. documented in this encounter Plan of Treatment Not on filedocumented as of this encounter Visit Diagnoses Not on filedocumented in this encounter Care Teams Roof Truss Detailer Relationship Specialty Start Date End Date Shirley Cardenas APRN PCP - General 02/15/15 03/31/15 documented as of this encounter
--- OUTSIDE RECORDS SUMMARY | 2022-01-25 01:01 | XMS_ITS | Encounter Summary ---
:1950 Author Organization [facility] [place] [address] Care Team Providers Name Role Phone Shirley Cardenas APRN Primary Care Provider Encounter Details Date Type Department Care Team Description 02/17/2015 Orders Only Vascular Surgery at [facility] (peripheral artery [facility], RN disease) [place] [address] Social History Tobacco Use Types Packs/Day Years Used Date Never Assessed Sex Assigned at Date Recorded Not on file documented as of this encounter Plan of Treatment Not on filedocumented as of this encounter Results SOSA, legs, multiple levels (03/08/2015 1:52 PM EDT) Component Value Ref Test Analysis Performed At [facility] Range Method Time Signature VB Text VASCUBASE Report Department: Vascular Surgery Lab Patient: [id number] (CARRIE PERRY) CPT Code: 01491 ICD-9: 447.1 Referring Physician: JOSE CRUZ FOWLER Indication: ?Decreased ABIs on outside study, establish baseline ICD9 Diagnosis Code: 447.1 Diabetes Mellitus: ??Yes Definitions: ?? SOSA = Ankle / Brachial Systolic Pressure I ndex, TBI = Toe / Brachial Systolic Pressure Index Findings: Right ?Pressure (mm Hg) ?? SOSA ??Waveform ? TBI ?? Brachial Artery ?189 ? Common Femoral Artery ?Triphasic ? Pop Fossa ?Monophasic ? Dorsalis Pedis (Ankle) Arter y ?92 ?0.49 ??Monophasic ? Posterior Tibial (Ankle) Art gregory ??99 ?0.52 ??Monophasic ? Great Toe ?48 ?0.25 ?? Left ? Pressure (mm Hg) ?? SOSA ??Waveform ? TBI ?? Brachial Artery ?186 ? Common Femoral Artery ?Triphasic ? Pop Fossa ?Monophasic ? Dorsalis Pedis (Ankle) Arter y ?60 ?0.32 ??Monophasic ? Posterior Tibial (Ankle) Art gregory ??45 ?0.24 ??Monophasic ? Great Toe ?23 ?0.12 ?? Interpretation: RIGHT: Moderately severe lower extremity arterial occlusive disease. LEFT: ??Severe lower extremity arterial occlusive disease. Electronically Signed by: NATANAEL NUÑEZ on 2015-03-13 10:19: 37 AM VB Text End of Report VASCUBASE Report Specimen (Source) Anatomical Collection Method Collection Time Re ceived Time Location / / Volume Laterality 03/08/2015 1:52 PM EDT Jose Cruz Fowler MD VASCULAR ORDERABLES Performing Organization Address City/State/ZIP Code Phon e Number VASCUBASE documented in this encounter Visit Diagnoses Diagnosis PAD (peripheral artery disease) Peripheral vascular disease, unspecified documented in this encounter Care Teams Senior Operations Analyst Relationship Specialty Start Date End Date Shirley Cardenas APRN PCP - General 02/15/15 03/31/15 documented as of this encounter
--- OUTSIDE RECORDS SUMMARY | 2022-01-25 01:01 | XMS_ITS | Encounter Summary ---
:1950 Author Organization [place] [address] Care Team Providers Name Role Phone Shirley Cardenas APRN Primary Care Provider Encounter Details Date Type Department Care Team Description 03/16/2015 Hospital Encounter Radiology at [facility] Mariano Doyle MD [facility] [place] [address] [place] [address] Social History Tobacco Use Types Packs/Day Years Used Date Never Smoker Alcohol Use Standard Drinks/Week Comments No 0 (1 standard drink = 0.6 oz pure alcoho l) Sex Assigned at Date Recorded Not on file documented as of this encounter Last Filed Vital Signs Vital Sign Reading Time Taken Comments Blood Pressure 178/68 03/16/2015 10:30 AM EDT Pulse 68 03/16/2015 8:00 AM EDT Temperature 35.8 ??C (96.4 ??F) 03/16/2015 8:57 AM EDT Respiratory Rate 18 03/16/2015 10:30 AM EDT Oxygen Saturation 98% 03/16/2015 10:30 AM EDT Inhaled Oxygen Concentration - - Weight - - Height - - Body Mass Index - - documented in this encounter Discharge Instructions Discharge InstructionsCatherine Cazares RN - 03/16/2015 10:37 AM EDT [facility] Interventional Radiology Post Angiography Instructions Procedure: Bilateral lower extremity angiogram Puncture Site: Right groin Date: 03/16/2015 Physician: Drs. Doyle, Macho, Arben 1. At home we advise you to [...] than 10-15 pounds for the next 48 hours. 4. If you develop bulging under the [...] documents or smoke unattended for 24 hours. 9. If you have any questions or concerns, please call Vascular Department at until 4:45pm. After 4:45pm call and ask for the Vascular resident personal protection specialist. 10. If you are a diabetic and take Metformin until after surgery. XX You have received medication during your [...] (TYLENOL) 325 mg every 4 hours as needed Tablet for Pain. oxyCODONE (ROXICODONE) Take 1 tablet by mouth 30 tablet 0 0 03/24/2015 04/06/2015 5 mg Tablet every 6 hours as needed for Pain (as needed for leg pain). warfarin (COUMADIN) 3 Take 1 tablet by mouth 30 tablet 11 03/24/2015 mg Tablet daily. enoxaparin (LOVENOX) Inject 0.61 mLs 2 Syringe 3 03/24/2015 03/24/2015 60 mg/0.6 mL Syringe subcutaneously as needed (inject 61ml only if directed by PCP for INR<2). enoxaparin (LOVENOX) Inject 0.92 mLs 2 Syringe 3 03/24/2015 03/24/2015 60 mg/0.6 mL Syringe subcutaneously as needed (inject 92ml dose only if directed by PCP for INR<2). warfarin (COUMADIN) 1 Take 1 tablet by mouth 15 tablet 11 03/24/2015 mg Tablet daily. warfarin (COUMADIN) 1 Take 1 tablet by mouth 15 tablet 11 03/24/2015 mg Tablet as needed (as needed for coumadin dose adjustments). warfarin (COUMADIN) 3 Take 1 tablet by mouth 30 tablet 11 06/01/2015 mg Tablet daily. enoxaparin (LOVENOX) Inject 0.92 mLs 2 Syringe 3 03/24/2015 03/24/2015 60 mg/0.6 mL Syringe subcutaneously as needed (inject 92ml dose only if directed by PCP for INR<2). warfarin (COUMADIN) 1 Take 1 tablet by mouth 15 tablet 11 06/01/2015 mg Tablet as needed (as needed for coumadin dose adjustments). multivitamin Take 1 tablet by mouth 0 05/07/2017 (THERAGRAN) Tablet daily. ibuprofen Take 400 mg by mouth 0 03/2015 (ADVIL;MOTRIN) 200 mg every 6 hours as needed Tablet for Pain. metFORMIN (GLUCOPHAGE) Take 1,000 mg by mouth 0 08/03/2015 500 mg Tablet 2 times daily (with meals). Takes 2 bid simvastatin (ZOCOR) 20 Take 20 mg by mouth 0 06/12/2016 mg Tablet nightly. lisinopril Take 5 mg by mouth 0 2015 (PRINIVIL;ZESTRIL) 5 daily. mg Tablet documented as of this encounter Plan of Treatment Not on filedocumented as of this encounter Visit Diagnoses Not on filedocumented in this encounter Administered Medications Inactive Administered Medications - up to 3 most recent administrations Medication Order MAR Action Action Date Dose Rate Site iodixanol (VISIPAQUE) 320 mg Given 03/16/2015 8:15 AM EDT 55 mLs iodine/mL injection 150 mL 150 mL, Intra-arterial, ONCE PRN, 1 dose, Starting on Sat03/16/15 at 0835, Until Sat03/16/15 at 0815, Per Protocol, Routine documented in this encounter Care Teams Parts Product Analyst Relationship Specialty Start Date End Date Shirley Cardenas APRN PCP - General 02/15/15 03/31/15 documented as of this encounter
--- OUTSIDE RECORDS SUMMARY | 2022-01-25 01:01 | XMS_ITS | Encounter Summary ---
:1950 Author Organization [facility] [place] [address] Care Team Providers Name Role Phone Ronald Shirley Miller APRN Primary Care Provider Encounter Details Date Type Department Care Team Description 03/16/2015 Office Visit Same Day at [facility] [place] [address] Anesthesia Record Procedure Summary Procedure Name Responsible Anesthesia Start Anesthesia Stop Time Anesthesiologist Time @BYPASS GRAFT, Sites, Mariano Toledo MD 03/18/15 1321 03/18/15 194 FEM.-ANT. TIB, POST. TIB, PERONEAL, DP W\ VEIN CONDUIT ([place] [address]) (WRVU 32.35) (Left Leg) Events Date Time Event Comment 03/18/2015 1250 1321 AN Verify 1321 Start 1321 An Start Data 1327 An Induction 1330 An Intubation 1346 Anesthesia Ready 1404 Procedure Start 1407 An Data Art Arterial line pr essure bag low 1421 An Data Art Arterial line fi xed 1424 ABG Data Arterial Blood G as result: pH 7.451 pCO2 31.8 pO2 339.1 FiO2 67 %O 2 Sat 100 HCO3 21.7 BE -2.3 Hb 12.3 Glucose 127 K 3.22 1624 Heparin 1709 Heparin 1753 Handoff Anesthesia care was transferred after review of the patient's hi story, current anesthetic/surgical status and plan, according to the Provider Handoff Checklist. 1929 Extubation/LMA Out To Delete (sk ip) the Extubation event, click the X below. 1935 an stop data 1943 Quick Note Pt. To PACU on O 2. AVSS. Breathing Spontaneously. No c/o pain or n ausea. Report given to MULTIPLE CUT OFF SAW OPERATOR. Care transferred . 1944 Stop No medications on file. Agents No agents on file. Blood No blood administrations on file. Lines, Drains, and Airways Type Details Placement Removal Urethral Catheter 03/18/15; Surgery longer 03/18/15 0000 by 03/08 09/19 1259 by than 2 hours, Need for Suzanne Elam, Olga Mullins, intraoperative urine output RN monitoring, Physician order; Prolonged Immobilization, Physician order; indwelling double lumen catheter; 100% silicone; 16; inserted at this facility; 1; 5; 10; none; drainage bag to dependent drainage; 03/20/15; 1259 Incision 03/18/15; leg; vertical 03/18/15 0000 by 6 0003 by (Extending from left groin Suzanne Elam, Kylee Topete to left medial calf.); Ryley, RN 08/11/15; 0003 Incision 03/18/15; calf; vertical; 03/18/15 0000 by 08/11 0003 by 08/11/15; 0003 Suzanne Elam RN Kiessling, Kristy L, RN PIV 03/18/15; 1050; median vein 03/18/15 1050 by 1219 by right (underside of arm); Polly Dale, Troy Harding, RN [id number] catheter system; 18 gauge, 1 in length; distraction, intradermal injection, tolerated well, appears comfortable; 0; 03/24/15; 1219 Arterial Line 03/18/15; 1321; radial 03/18/15 1321 by 03/19/15 0005 by artery; 20 gauge; damian; Dontrell Romero, Efrem Delgado, Sterile Prep, Sterile RN Gloves; no longer indicated; 03/19/15; 0005 ETT Mask Ventilation: Easy (1); 03/18/15 1330 by 05/22 1930 by ETT Type: Cuffed, Oral; ETT Dontrell Romero Whittaker, David M, Size: 7 mm; Indirect:Video; MD MORROW Notes: Asleep, Pre-O2, Stylette; Attempts: 1; Laryngoscopy Grade: 1; ETT Placement Verified By: Auscultation, Capnometry, Visual; Secured at Teeth: 21 cm; Inserted by: damian MEZA (right hand); 16 gauge; 03/18/15 1359 by 1219 by gillian; 03/24/15; 1219 Troy Ha RN documented in this encounter Social History [...] on filedocumented in this encounter Care Teams Table Setter Relationship Specialty Start Date End Date Shirley Cardenas APRN PCP - General 02/15/15 03/31/15 documented as of this encounter
--- OUTSIDE RECORDS SUMMARY | 2022-01-25 01:01 | XMS_ITS | Encounter Summary ---
:1950 Author Organization [facility] [place] [address] Care Team Providers Name Role Phone Shirley Cardenas APRN Primary Care Provider Reason for Visit Reason Comments Establish Care L toe ulcers Encounter Details Date Type Department Care Team Description 03/08/2015 Office Visit Vascular Surgery at [facility] MD PAD (peripheral artery [facility] disease) [facility] Campos VASCULAR SURGERY [place] [phone] Social History Tobacco Use Types Packs/Day Years Used Date Former Smoker Sex Assigned at Date Recorded Not on file documented as of this encounter Last Filed Vital Signs Vital Sign Reading Time Taken Comments Blood Pressure 170/51 03/08/2015 2:50 PM EDT Pulse 69 03/08/2015 2:50 PM EDT Temperature - - Respiratory Rate - - Oxygen Saturation - - Inhaled Oxygen Concentration - - Weight 57.2 kg (126 lb) 03/08/2015 2:50 PM EDT Height 154.9 cm (5' 1) 03/08/2015 2:50 PM EDT Body Mass Index 23.81 03/08/2015 2:50 PM EDT documented in this encounter Progress Notes Glen Doyle MD - 03/08/2015 3:06 PM EDT OUTPATIENT VASCULAR SURGERY CONSULTATION Reason for Visit: PAD History of Present Illness: This is a 64 y.o. Lady who presents for evaluation of bilateral leg pain with walking and left foot pain. Developed calf pain with ambulation earlier this year, has developed left foot pain at rest about 3 months ago. No ulcers. Atherosclerotic Risk Factors: (y) DM (y) HTN (y) Hyperlipidemia reports that she has quit smoking. She does not have any smokeless tobacco history on file. Cardiovascular History: (n) Previous UT (n) Angina (n) CHF (n) Arrythmia (n) copd There is no problem list on file for this patient. Current outpatient prescriptions: metFORMIN (GLUCOPHAGE) 500 mg Tablet, Take 500 mg by mouth 2 timesdaily (with meals). Takes 2 bid, Disp: , Rfl: ; simvastatin (ZOCOR) 20 mg Tablet, Take 20 mg by mouth nightly., Disp: , Rfl: ; lisinopril (PRINIVIL;ZESTRIL) 5 mg Tablet, Take 5 mg by mouth daily., Disp: , Rfl: ; acetaminophen (TYLENOL) 325 mg Tablet, Take 325 mg by mouth every 4 hours as needed for Pain., Disp: , Rfl: No Known Allergies Review of Systems: Constitutional (weight change, fever) - Denies Neuro (dizziness, seizures, numbness, tingling) - Denies Eyes (vision) - Denies Ears, nose, throat (hearing) - Denies Cardiovascular (CP) - Denies Respiratory (SOB) - Denies GI (abd pain, nausea, emesis, blood in stool) - Denies (hematuria, dysuria, frequency) - Denies Muscoloskeletal (extremity pain, weakness) - Denies Skin (ulcers, rashes) - Denies History Social History ??? Marital Status: Spouse Name: N/A Number of Children: N/A ??? Years of Education: N/A Occupational History ??? Not on file. Social History Main Topics ??? Smoking status: Former Smoker ??? Smokeless tobacco: Not on file ??? Alcohol Use: Not on file ??? Drug Use: Not on file ??? Sexual Activity: Not on file Other Topics Concern ??? Not on file Social History Narrative ??? No narrative on file No family history on file. Physical Exam: BP 170/51 mmHg Pulse 69 Ht 154.9 cm (5' 1) Wt 57.153 kg (126 lb) BMI 23.82 kg/m2 General - NAD, appears stated age Neuro - Alert and Oriented, Motor Sensory grossly intact Skin - No prominent markings or lesions Ear, Nose, Throat - No masses, No lesions Cardiac - RRR, no murmurs Lungs - Clear Abd - Soft, NT, ND, No palpable pulsatile masses Musculoskeletal- full ROM upper and lower extremities Psych- alert oriented X3 , Extremities - Warm, pink, no edema, brisk capillary refill Vascular Exam: R L Carotid 2/2 bruit () 2/2 bruit () Radial 2/2 2/2 Femoral 2/2 2/2 Popliteal DP 2/2 2/2 PT 2/2 2/2 Labs: Recent Results (from the past 72 hour(s)) SOSA, legs, multiple levels Result Value Ref Range VB Text Report Department: Vascular Surgery Lab Patient: [id number] (CARRIE PERRY) CPT Code: 45791 ICD-9: 447.1 Referring Physician: JOSE CRUZ FOWLER Indication: Decreased ABIs on outside study, establish baseline ICD9 Diagnosis Code: 447.1 Diabetes Mellitus: Yes Definitions: SOSA = Ankle / Brachial Systolic Pressure Index, TBI = Toe / Brachial Systolic Pressure Index Findings: Right Pressure (mm Hg) SOSA Waveform TBI Brachial Artery 189 Common Femoral Artery Triphasic Pop Fossa Monophasic Dorsalis Pedis (Ankle) Artery 92 0.49 Monophasic Posterior Tibial (Ankle) Artery 99 0.52 Monophasic Great Toe 48 0.25 Left Pre ssure (mm Hg) SOSA Waveform TBI Brachial Artery 186 Common Femoral Artery Triphasic Pop Fossa Monophasic Dorsalis Pedis (Ankle) Artery 60 0.32 Monophasic Posterior Tibial (Ankle) Artery 45 0.24 Monophasic Great Toe 23 0.12 Interpretation: RIGHT: Moderately severe lower extremity arterial occlusive disease. LEFT: Severe lower extremity arterial occlusive disease. VB Text Report End of Report Studies: Definitions: SOSA = Ankle / Brachial Systolic Pressure Index, TBI = Toe / Brachial Systolic Pressure Index Findings: Right Pressure (mm Hg) SOSA Waveform [...] LEFT: Severe lower extremity arterial occlusive disease. Assessment and Plan: PAD with critical limb ischemia (rest pain) on left and bilateral claudication.The symptoms, exam and studies are consistent with chronic multi-level occlusive disease. I have described the etiology and natural history of PAD and CLI and explained the significant risk of limb loss without revascularizaion. We have discussed the general treatment options for PAD including life style modification (exercise, diet) medical therapies (Pletal and statins), endovascular treatments andsurgery. I have suggested lower extremity arteriogram with possible endovascular therapy. He understands and is willing to proceed. I have explained the risks and benefits of both medical and endovascul ar therapy. The arteriogram has been scheduled for next Sat. documented in this encounter Miscellaneous Notes Addendum Note - Maureen Pittman RN - 03/16/2015 9:33 AM EDT Addended by: MAUREEN PITTMAN on: 03/16/2015 09:33 AM Modules accepted: Orders documented in this encounter Plan of Treatment Not on filedocumented as of this encounter Procedures Procedure Name Priority Date/Time Associated Comments Diagnosis BYPASS GFT FEM-ANT Routine 03/16/2015 9:27 AM TIB/POST EDT TIB/PERON/DP W VEIN CONDUIT (NOT IN-SITU) CREATININE Routine 03/08/2015 3:32 PM PAD (peripheral Result s for this EDT artery disease) procedure ar e in the results section. documented in this encounter Results (ABNORMAL) Urinalysis without microscopic (03/16/2015 12:01 PM EDT) [facility] Method Time Signature Glucose UA Negative Negative CERNER mg/dL MILLENNIUM Protein UA Negative [...] Normal mg/dL CERNER MILL ENNIUM pH UA 7.0 5.0 - 8.0 CERNER MILLENNIUM Blood UA Negative Negative mg/dL CERNER MILLENNI UM Ketones UA 20 (A) Negative mg/dL CERNER MILLENN IUM Nitrite UA Negative Negative CERNER MILLENNIUM Leukocytes UA Negative Negative mcL CERNER KINGSLEY NIUM Appearance UA Clear Clear CERNER MILLENNIU M Spec [place] UA 1.029 1.002 - 1.030 CERNER MIL LENNIUM Color UA Straw Yellow CERNER MILLENNIUM Specimen Anatomical Collection Method Collection Time Receive d Time (Source) Location / / Volume Laterality Urine specimen 03/16/2015 12:01 5 (specimen) PM EDT 12:05 PM EDT Resulting Agency Comment Spec In Lab [facility] Doyle MD URINE ORDERABLES Performing Organization Address City/State/ZIP Code Phon e Number [place] [id number] CERNER MILLENNIUM (ABNORMAL) Basic Metabolic Panel (non-fasting) (03/16/2015 12:00 PM EDT) athologist Signature Glucose Lvl 147 65 - 199 CERNER mg/dL MILLENNIUM Comment: Diabetes: >=200 mg/dL plus symp toms BUN 8 8 - 18 mg/dL CERNER MILLENNIUM Creatinine 0.49 (L) 0.70 - 1.20 mg/dL CERNER MILL ENNIUM Comment: Please note that the pediatric reference intervals supplied above were [place] [facility] [place] Results from [place]iatri c [...] Gap 16 (H) 5 - 15 mmol/L DANIEL Ryan Calcium 9.0 8.5 - 10.5 mg/dL DANIEL MATTHEWSUM Estimated GFR >60 >=60 DANIEL Ryan Comment: [...] the following links into your internet browser. [email or web address] Specimen Anatomical Collection Method Collection Time Receive d Time (Source) Location / / Volume Laterality Blood specimen 03/16/2015 12:00 5 (specimen) PM EDT 12:05 PM EDT Resulting Agency Comment Spec In Lab Glen Doyle MD CHEMISTRY ORDERABLES Performing Organization Address City/State/[place] [address] DANIEL SIMON EKG 12 Lead (03/16/2015 11:49 AM EDT) Component Value Ref Range Test Analysis Performed Pathologis t Method Time At Signature Ventricular rate 78 BPM MUSE SYSTEM Atrial Rate 78 BPM MUSE SYSTEM P-R Interval 148 ms MUSE SYSTEM QRS Duration 84 ms MUSE SYSTEM Q-T Interval 366 ms MUSE SYSTEM QTC Calculated 417 ms MUSE SYSTEM (Bezet) Calculated P [place] 75 degrees MUSE SYSTEM Calculated R [place] 18 degrees MUSE SYSTEM Calculated T [place] 71 degrees MUSE SYSTEM INTERPRETATION Sinus rhythm [...] 11:49 03/16/2015 AM EDT 12:47 PM EDT Glen Doyle MD ECG ORDERABLES Performing Organization Address City/State/ZIP Code Phon e Number MUSE SYSTEM Vein Map Leg, Unilat (03/08/2015 3:34 PM EDT) Component Value Ref Test Analysis Performed At [facility] Range Method Time Signature VB Text VASCUBASE Report Department: Vascular Surgery Lab Patient: [id number] (CARRIE PERRY) CPT Code: 66144 ICD-9: 440.21 Referring Physician: GLEN DOYLE Indication: ?Pre-op possible left lower extr emity bypass graft for severe PVD. ICD9 Diagnosis Code: 440.21 Findings: Left ? Diameter (mm) ?? GSV, Near SFJ ?4.9 ?? GSV, Proximal Thigh ?2.9 ?? GSV, Mid Thigh ? 0.8 ?? GSV, Distal Thigh ?0.5 ?? GSV, Mid Calf ?2.1 ?? GSV, Distal Calf ? 2.6 ?? GSV, Ankle ? 2.9 ?? Interpretation: LEFT: Patent great saphenous vein with no evidence of thromb us where identified/visualized. The great saphenous vein was no t identified from very distal thigh to mid calf and is extremely small in mid to di stal thigh. There is a more lateral, larger superficial vein starting ju st below the sapheno-femoral junction in the upper thigh that exits the fascia just below mid thigh and can be followed to near mid calf where it re-enters the fascia to the ankle. This vein has the following vein diameter s: proximal thigh 3.6 mm, mid thigh 3.8 mm, distal thigh 3.6 mm, knee 3.2 mm a nd proximal calf 2.7 mm. This vein was marked. The GSV was marked with a dotted line for segment mid calf due to marginal vein diameter. Electronically Signed by: NATANAEL NUÑEZ on 2015-03-13 10:21: 13 AM VB Text End of Report VASCUBASE Report Specimen (Source) Anatomical Collection Method Collection Time Re ceived Time Location / / Volume Laterality 03/08/2015 3:34 PM EDT Glen Doyle MD VASCULAR ORDERABLES Performing Organization Address City/State/ZIP Code Phon e Number [place] (ABNORMAL) Creatinine (03/08/2015 3:32 PM EDT) athologist Signature Creatinine 0.56 (L) 0.70 - CERNER 1.20 mg/dL [facility] Comment: Please note that the pediatric reference intervals supplied above were [place] [facility] [place] Results from pediatri c [...] the following links into your internet browser. [email or web address] Specimen Anatomical Collection Method Collection Time Receive d Time (Source) Location / / Volume Laterality Blood specimen 03/08/2015 3:32 PM 015 3:41 (specimen) EDT PM EDT Resulting Agency Comment Spec In Lab Glen Doyle MD CHEMISTRY ORDERABLES Performing Organization Address City/State/[place] [address] [facility] documented in this encounter Visit Diagnoses Diagnosis PAD (peripheral artery disease) Peripheral vascular disease, unspecified documented in this encounter Care Teams Compliance Technician Relationship Specialty Start Date End Date Shirley Cardenas APRN PCP - General 02/15/15 03/31/15 documented as of this encounter
--- OUTSIDE RECORDS SUMMARY | 2022-01-25 01:01 | XMS_ITS | Encounter Summary ---
:1950 Author Organization [facility] Address [address] [place] [address] Care Team Providers Name Role Phone Shirley Cardenas APRN Primary Care Provider Encounter Details Date Type Department Care Team Description 03/16/2015 Orders Only Cardiology Baudilio Bassett Chest pain, [facility] MD Tre unspecified chest pain Drive [facility] [address] CARDIOLOGY DEPT. [place] [id number] Social History Tobacco Use Types Packs/Day Years Used Date Never Smoker Alcohol Use Standard Drinks/Week Comments No 0 (1 standard drink = 0.6 oz pure alcoho l) Sex Assigned at Date Recorded Not on file documented as of this encounter Plan of Treatment Not on filedocumented as of this encounter Results Echo pharm stress test (DSE) (03/16/2015 3:58 PM EDT) P athologist Signature EF 65 HEARTLAB SYSTEM Specimen (Source) Anatomical Location Collection Method / Collectio n Time Received Time / Laterality Volume 03/16/2015 Narrative HEARTLAB SYSTEM - 03/16/2015 5:00 PM EDT Amended Report Procedure: ?Stress Echocardiogram Patient: ?ORLANDO Guillen ?(Age): 1950(64y) Med Rec#: ? [id number] ?Sex: ?F ? Site Loc: ? [facility] ?Ht / Wt: ??0(cm)/0(kg) ? Pt. Loc: ?Echo Lab ?BSA: ?0 Study Date: ?? 03/16/2015 ?Pt. Type: Tape: ? Referring: Baudilio Bassett Reading: Iglesia Oliver ([id number]) Laborer Tin Can: Shirley Soto Nurse: Elizabeth Kessler Diagnosis: *Pre-op cardiovascular evaluation (V72. 81) CPT Codes: *Stress Echo (43393) *Color Doppler (49004) *Doppler LTD (98948) *ECG Interpretation (35091) *Definity ([id number]) Indication: ?? Pre-op evaluation Stage ? BP ?HR ? Rest ?183/70 ?70 ? Low dose ?177/76 ?82 ? Peak ?165/77 ?144 ? Recovery ?150/82 ?78 ? SUMMARY: 1. BASELINE: The left ventricle is proba marylu normal in size. There is normal global left ventricular systolic function. The visually estimated left ventricular ejection fraction is 65 %. The ??basal inferoseptal wall segment is akinetic (score 3). The ??bas al inferior wall segment is hypokinetic (score 2). Right ventricular chamber size, wall thickness, and systolic function are within normal limits. The estimated pulmonary artery systolic pressure is 25 mmHg. Foc al aortic leaflet calcification is visualized. There is no evidence of a ortic valve stenosis. There is no evidence of aortic regurgitation. The mitral valve leaflets are mildly thickened. There is mild to moder ate (1-2+/4+) mitral regurgitation present. EKG: normal sinus rhythm, premature ventricular contractions noted. 2. DOBUTAMINE STRESS: The patient achiev ed a maximum heart rate of 144 (85% of predicted maximum). The patient did not express feelings of chest discomfort. The patient felt nause ous and ??light-headed. There were frequent ventricular premature beat s. There were 1.[address] segment depression in the lead V2 and [address] elevations in inferolateral leads. 3. CONCLUSION: Evidence for basal inferi or/inferoseptal infarction and stress inducible ischemia in the apex an d apical lateral wall (with technically difficult imaging). FINDINGS: Rest Left Ventricle ?The left ventricle is probably nor mal in size. ?There is normal global left ventri cular systolic function. ?The visually estimated left ventri cular ejection fraction is 65% ?There are left ventricular segment al wall motion abnormalities present, as shown in the diagram below. ?Doppler assessment is consistent w ith normal left sided filling pressure. ?The ??basal inferior wall segment is hypokinetic (score 2). ?The ??basal inferoseptal wall segm ent is akinetic (score 3). ?Overall wallmotion score index is ??1.19 Left Atrium ?The left atrium is probably normal in size. Right Ventricle ?Right ventricular chamber size, wa ll thickness, and systolic function are within normal limits. ?The estimated pulmonary artery sys tolic pressure is 25 mmHg. Right Atrium ?The right atrium is probably cricket l in size. Aortic Valve ?The aortic valve is tricuspid. ?Focal aortic leaflet calcification is visualized. ?Systolic excursion of the aortic v alve is normal. ?There is no evidence of aortic augustine ve stenosis. ?There is no evidence of aortic reg urgitation. Mitral Valve ?The mitral valve leaflets are mild ly thickened. ?There is mild to moderate (1-2+/4+ ) mitral regurgitation present. Tricuspid Valve ?The tricuspid valve appears normal in structure and function. ?There is trace tricuspid regurgita tion present. Pericardium ?The pericardium appears normal and there is no evidence of a pericardial effusion. Aorta ?The aortic root is normal in size. ?The ascending aorta is normal in s ize. Stress ?EKG: normal sinus rhythm. ?EKG: Premature ventricular contrac tions noted. ?The patient is on an MARLYN inhibitor . Misc ?Other echo and stress findings as noted in report. ?The patient is alert and oriented x3. ?The procedure was explained to the patient and the patient understands the procedure, ?An antecubital IV was placed. ?An IV was placed in the patient's right arm. ?The IV site is dry and intact with no hematoma. ?Definity contrast (one 1.5 ml vial )was used to enhance endocardial definition. Excess contrast was discarde d. ?Stress echo, limited spectral Dopp ler, color Doppler and ECG interpretation performed. FINDINGS: Low dose Stress ?EKG: normal sinus rhythm. ?EKG: Premature atrial contractions noted. ?EKG: Premature ventricular contrac tions noted. FINDINGS: Peak Left Ventricle ?There is normal global left ventri cular systolic function. ?There are left ventricular segment al wall motion abnormalities present, as shown in the diagram below. ?The apical lateral wall segment de teriorated. ?The basal inferior and basal infer oseptal wall segments are unchanged. ?Overall wallmotion score index is ??1.25 Stress ?The peak dose of Dobutamine infuse d was 40 ug/kg/min. ?The patient was administered 0.25 mg of Atropine. ?The patient was administered 5 mg of Metoprolol during recovery. ?The patient performed leg lifts to accelerate heart rate. ?The patient performed hand squeeze s to accelerate heart rate. ?The patient did not express feelin gs of chest discomfort. ?The patient felt nauseous. ?The patient felt light-headed. ?There were frequent ventricular pr emature beats. ?There is 1.[address] s egment depression in the leads. ?V2 ?There was 1.[address] segment joel vation. ?There was ST segment elevation in the inferolateral leads. ?This was a positive echocardiograp hic stress test. ?There is echocardiographic evidenc e of myocardial ischemia at this level of stress. ?Echocardiographic findings consist ent with infarction. ?There was evidence of apical ische yazan. ?There was evidence of inferior wal l infarction. ?EKG: Premature atrial contractions noted. ?EKG: Premature ventricular contrac tions noted. ?EKG: sinus tachycardia. ?EKG: ??ventricular couplets. ?The patient's oxygen saturation wa s 98% on RA. FINDINGS: Recovery Stress ?EKG: normal sinus rhythm. ?EKG: Premature ventricular contrac tions noted. Misc ?The heplock was discontinued. ?The IV site is dry and intact with no hematoma. ?Normal saline was given. 250cc Chambers 2D ?Value ?Units (Range) ? Ao root diameter (2D3.2 ?cm (2.1 - 3.6) ? Ascending Ao ?2.9 ?cm (2 - 3.5) ? Diastolic/Systolic Function ?Value ?Units (Range) ? MV E-wave Vmax ?0.7 ?m/sec ? MV deceleration dxpv306.4 ? msec ? MV A-wave Vmax ?1.2 ?m/sec ? MV E:A ratio ?0.6 ?ratio ? LV septal e' Vmax ?? 0.1 ?m/sec ? LV E:e' septal ratio11.6 ? ratio ? Tricuspid Valve ?Value ?Units (Range) ? TR Vmax ? 2.5 ?m/sec ? TR peak gradient ?25 ? mmHg ? RVSP ?25 ? mmHg ? Wall Motion: Segment Name ?Rest ?Peak ? Base-Anteroseptal ?? Normal ?Normal ? Base-Anterior ? Normal ?Normal ? Base-Anterolateral ??Normal ?Normal ? Base-Posterolateral Normal ?Normal ? Base-Inferior ? Hypokinetic ? Hypokinetic ? Base-Inferoseptal ?? Akinetic ?Akinetic ? Mid-Anteroseptal ?Normal ?Normal ? Mid-Anterior ?Normal ?Normal ? Mid-Anterolateral ?? Normal ?Normal ? Mid-Posterolateral ??Normal ?Normal ? Mid-Inferior ?Normal ?Normal ? Mid-Inferoseptal ?Normal ?Normal ? [place]-Septal ? Normal ?Normal ? [place]-Anterior ? Normal ?Normal ? [place]-Lateral ?Normal ?Hypokinetic ? [place]-Inferior ? Normal ?Normal ? [place]-Tip ?Normal ?Akinetic ? This report has been electronically sign ed by: _ Iglesia Oliver MD ? 03/16/2015 18:32 :33 Images reviewed and interpretation verif ied [facility] Cardiac Ultrasound [facility] Procedure Note Iglesia Oliver MD - 03/16/2015Formkaren guillen of this note might be different from the original. Amended Report Procedure: Stress Echocardiogram Patient: ORLANDO Guillen (Age): [birth year](64y) Med Rec#: [id number] Sex: F Site Loc: [facility] Ht / Wt: 0(cm)/0(kg) Pt. Loc: Echo Lab BSA: 0 Study Date: 03/16/2015 Pt. Type: Tape: Referring: Baudilio Bassett Reading: Iglesia Oliver ([id number]) Laborer Tin Can: Shirley Soto Nurse: Elizabeth Kessler Diagnosis: *Pre-op cardiovascular evaluation (V72. 81) CPT Codes: *Stress Echo (08751) *Color Doppler (37067) *Doppler LTD (94831) *ECG Interpretation (45111) *Definity ([id number]) Indication: Pre-op evaluation Stage BP HR Rest 183/70 70 Low dose 177/76 82 Peak 165/77 144 Recovery 150/82 78 SUMMARY: 1. BASELINE: The left ventricle is proba marylu normal in size. There is normal global left ventricular systolic function. The visually estimated left ventricular ejection fraction is 65 %. The basal inferoseptal wall segment is akinetic (score 3). The basal inferior wall segment is hypokinetic (score 2). Right ventricular chamber size, wall thickness, and systolic function are within normal limits. The estimated pulmonary artery systolic pressure is 25 mmHg. Foc al aortic leaflet calcification is visualized. There is no evidence of a ortic valve stenosis. There is no evidence of aortic regurgitation. The mitral valve leaflets are mildly thickened. There is mild to moder ate (1-2+/4+) mitral regurgitation present. EKG: normal sinus rhythm, premature ventricular contractions noted. 2. DOBUTAMINE STRESS: The patient achiev ed a maximum heart rate of 144 (85% of predicted maximum). The patient did not express feelings of chest discomfort. The patient felt nause ous and light-headed. There were frequent ventricular premature beat s. There were 1.[address] segment depression in the lead V2 and [address] elevations in inferolateral leads. 3. CONCLUSION: Evidence for basal inferi or/inferoseptal infarction and stress inducible ischemia in the apex an d apical lateral wall (with technically difficult imaging). FINDINGS: Rest Left Ventricle The left ventricle is probably normal i n size. There is normal global left ventricular systolic function. The visually estimated left ventricular ejection fraction is 65% There are left ventricular segmental wa ll motion abnormalities present, as shown in the diagram below. Doppler assessment is consistent with n ormal left sided filling pressure. The basal inferior wall segment is hypo kinetic (score 2). The basal inferoseptal wall segment is akinetic (score 3). Overall wallmotion score index is 1.19 Left Atrium The left atrium is probably normal in s ize. Right Ventricle Right ventricular chamber size, wall th ickness, and systolic function are within normal limits. The estimated pulmonary artery systolic pressure is 25 mmHg. Right Atrium The right atrium is probably normal in size. Aortic Valve The aortic valve is tricuspid. Focal aortic leaflet calcification is v isualized. Systolic excursion of the aortic valve is normal. There is no evidence of aortic valve st enosis. There is no evidence of aortic regurgit ation. Mitral Valve The mitral valve leaflets are mildly th ickened. There is mild to moderate (1-2+/4+) bg ral regurgitation present. Tricuspid Valve The tricuspid valve appears normal in s tructure and function. There is trace tricuspid regurgitation present. Pericardium The pericardium appears normal and ther e is no evidence of a pericardial effusion. Aorta The aortic root is normal in size. The ascending aorta is normal in size. Stress EKG: normal sinus rhythm. EKG: Premature ventricular contractions noted. The patient is on an MARLYN inhibitor. Misc Other echo and stress findings as noted in report. The patient is alert and oriented x3. The procedure was explained to the fuad ent and the patient understands the procedure, An antecubital IV was placed. An IV was placed in the patient's right arm. The IV site is dry and intact with no h ematoma. Definity contrast (one 1.5 ml vial)was used to enhance endocardial definition. Excess contrast was discarde d. Stress echo, limited spectral Doppler, color Doppler and ECG interpretation performed. FINDINGS: Low dose Stress EKG: normal sinus rhythm. EKG: Premature atrial contractions note d. EKG: Premature ventricular contractions noted. FINDINGS: Peak Left Ventricle There is normal global left ventricular systolic function. There are left ventricular segmental wa ll motion abnormalities present, as shown in the diagram below. The apical lateral wall segment deterio rated. The basal inferior and basal inferosept al wall segments are unchanged. Overall wallmotion score index is 1.25 Stress The peak dose of Dobutamine infused was 40 ug/kg/min. The patient was administered 0.25 mg of Atropine. The patient was administered 5 mg of Me toprolol during recovery. The patient performed leg lifts to acce lerate heart rate. The patient performed hand squeezes to accelerate heart rate. The patient did not express feelings of chest discomfort. The patient felt nauseous. The patient felt light-headed. There were frequent ventricular prematu re beats. There is 1.[address] segmen t depression in the leads. V2 There was 1.[address] segment elevatio n. There was ST segment elevation in the i nferolateral leads. This was a positive echocardiographic s tress test. There is echocardiographic evidence of myocardial ischemia at this level of stress. Echocardiographic findings consistent w ith infarction. There was evidence of apical ischemia. There was evidence of inferior wall inf arction. EKG: Premature atrial contractions note d. EKG: Premature ventricular contractions noted. EKG: sinus tachycardia. EKG: ventricular couplets. The patient's oxygen saturation was 98% on RA. FINDINGS: Recovery Stress EKG: normal sinus rhythm. EKG: Premature ventricular contractions noted. Misc The heplock was discontinued. The IV site is dry and intact with no h ematoma. Normal saline was given. 250cc Chambers 2D Value Units (Range) Ao root diameter (2D3.2 cm (2.1 - 3.6) Ascending Ao 2.9 cm (2 - 3.5) Diastolic/Systolic Function Value Units (Range) MV E-wave Vmax 0.7 m/sec MV deceleration eoeu448.4 msec MV A-wave Vmax 1.2 m/sec MV E:A ratio 0.6 ratio LV septal e' Vmax 0.1 m/sec LV E:e' septal ratio11.6 ratio Tricuspid Valve Value Units (Range) TR Vmax 2.5 m/sec TR peak gradient 25 mmHg RVSP 25 mmHg Wall Motion: Segment Name Rest Peak Base-Anteroseptal Normal Normal Base-Anterior Normal Normal Base-Anterolateral Normal Normal Base-Posterolateral Normal Normal Base-Inferior Hypokinetic Hypokinetic Base-Inferoseptal Akinetic Akinetic Mid-Anteroseptal Normal Normal Mid-Anterior Normal Normal Mid-Anterolateral Normal Normal Mid-Posterolateral Normal Normal Mid-Inferior Normal Normal Mid-Inferoseptal Normal Normal [place]-Septal Normal Normal [place]-Anterior Normal Normal [place]-Lateral Normal Hypokinetic [place]-Inferior Normal Normal [place]-Tip Normal Akinetic This report has been electronically sign ed by: _ Iglesia Oliver MD 03/16/2015 18:32:33 Images reviewed and interpretation verif ied [facility] Baudilio Bassett MD ECHO ORDERABLES Performing Organization Address City/State/ZIP Code Phon e Number HEARTLAB SYSTEM documented in this encounter Visit Diagnoses Diagnosis Chest pain, unspecified chest pain type Chest pain, unspecified chest pain type documented in this encounter Care Teams Small Arms Repairer Relationship Specialty Start Date End Date Shirley Cardenas APRN PCP - General 02/15/15 03/31/15 documented as of this encounter
--- OUTSIDE RECORDS SUMMARY | 2022-01-25 01:01 | XMS_ITS | Encounter Summary ---
:1950 [place] [address] Care Team Providers Name Role Phone Ronald Shirley Angela MCKENZIE Primary Care Provider Encounter Details Date Type Department Care Team Description 03/18/2015 Anesthesia Event Main Operating Room [facility] Mariano Guajardo MD [facility] [place] [place] [address] [facility] Mariano Wilcox MD [facility] [place] [address] [place] [address] Anesthesia Record Procedure Summary Procedure Name Responsible Anesthesia Start Anesthesia Stop Time [facility]esthesiologist [facility] 03[facility]15 1321 03/18/15 1945 FEM.-ANT. TIB, POST. TIB, PERONEAL, DP W\ VEIN CONDUIT ([place] [address]) (WRVU 32.35) (Left Leg) Events Date Time [...] pain or n ausea. Report given to AFTER SCHOOL PROGRAM ASSISTANT. Care transferred . 1944 Stop Name Total Midazolam 2 mg fentaNYL 375 mcg IV Lidocaine 20 mg Propofol 300 mg Rocuronium 40 mg PHENYLephrine 1,040 mcg Ondansetron 4 mg ceFAZolin (ANCEF) 2g in dextrose 5% 50 mL 3 g Esmolol 120 mg meTOPROLOL 2 mg Labetalol 10 mg PHENYLephrine INF 6,260 mcg Heparin 8,000 Units Protamine 20 mg Lactated Ringers 1,800 mL Lactated Ringers 2,000 mL Agents Name O2 Air Sevoflurane (et) Blood No blood administrations on file. Lines, Drains, and Airways Type Details Placement Removal Urethral Catheter 03/18/15; Surgery longer 03/18/15 0000 by 03/08 09/19 1259 by than 2 hours, Need for Suzanne Elam, JOSEPH mena, Olga Ryan, intraoperative urine output RN monitoring, Physician order; Prolonged Immobilization, Physician order; indwelling double lumen catheter; 100% silicone; 16; inserted at this facility; 1; 5; 10; none; drainage bag to dependent drainage; 03/20/15; 1259 Incision 03/18/15; leg; vertical 03/18/15 0000 by 6 0003 by (Extending from left groin Suzanne Elam RN Kiessling, Kristy to left medial calf.); Ryley, RN 08/11/15; 0003 Incision 03/18/15; calf; vertical; 03/18/15 0000 by 08/11 0003 by 08/11/15; 0003 Suzanne Elam RN Kiessling, Kristy L RN PIV 03/18/15; 1050; median vein 03/18/15 1050 by 1219 by right (underside of arm); Polly Dale RN Simeonov, Ted D, RN [id number] catheter system; 18 gauge, 1 in length; distraction, intradermal injection, tolerated well, appears comfortable; 0; 03/24/15; 1219 Arterial Line 03/18/15; 1321; radial 03/18/15 1321 by 03/19/15 0005 by artery; 20 gauge; damian; Dontrell Romero Smith, Patrick F, Sterile Prep, Sterile RN Gloves; no longer indicated; 03/19/15; 0005 ETT Mask Ventilation: Easy (1); 03/18/15 1330 by 05/22 1930 by ETT Type: Cuffed, Oral; ETT Dontrell Romero Whittaker, David M, Size: 7 mm; Indirect:Video; MD MORROW Notes: Asleep, Pre-O2, Stylette; Attempts: 1; Laryngoscopy Grade: 1; ETT Placement Verified By: Auscultation, Capnometry, Visual; Secured at Teeth: 21 cm; Inserted by: damian PIV (right hand); 16 gauge; 03/18/15 1359 by 1219 by wilcox; 03/24/15; 1219 Troy Ha, RN documented in this encounter Social History Tobacco Use Types Packs/Day Years Used Date Never Smoker Alcohol Use Standard Drinks/Week Comments No 0 (1 standard drink = 0.6 oz pure alcoho l) Sex Assigned at Date Recorded Not on file documented as of this encounter OR Notes Anesthesia Postprocedure Evaluation - [facility], Mariano Toledo MD - 03/18/2015 8:10 PM EDT Patient: Carrie Hurst Procedure(s) Performed: Procedure(s): @BYPASS GRAFT, FEM.-ANT. TIB, POST. TIB, PERONEAL, DP W\ VEIN CONDUIT ([place] [address]) Actual Anesthetic: general Patient location: PACU Post-op pain: Adequate analgesia Post-op nausea: no nausea or vomiting Last Vitals: Filed Vitals: 03/19/15 0430 BP: 139/59 Pulse: 74 Temp: 36.8 ??C (98.3 ??F) Resp: 15 Post-op cardiovascular and respiratory status: is stable Level of consciousness: awake, alert and oriented Complications: no apparent complications and tolerated the procedure well Fluid Status: normal Anesthesia Preprocedure Evaluation - Mariano Wilcox MD - 03/16/2015 12:12 PM EDT Images from the original note were not included. Pre-Anesthesia Evaluation for: Carrie Hurst a 64 y.o. female being seen in [facility] prior to vascularsurgery. Has not seen pcp in over twenty years. First went to [facility] in Jun, where she was diagnosed with PVD, HTN and DM. Went to the PCP because she had to sign up for a doctor because of [facility] and [place] [facility]. Unable to walk one flight of stairs without dull constant 4/10 mid--sternal chest pain relieved by rest in approx 1-2 minutes, also gets this same pain when she tries to exercise (ie: walking a distance or pushups against wall or leg exercises) pain not accompanied by diaphoresis or N/V. No radiation of pain. Reports getting same dull pain when she got into bed about 4 months ago ~ 2 times. Denies activity prior to going to bed. Has not seen doctor for the chest pain. Carrie thought it was anxiety. Sleeps on right side with 2 under her head. Denies SOB when lying flat but admits she doesn't lie on her back much. Denies heart burn Procedure(s): @BYPASS GRAFT, FEM.-ANT. TIB, POST. TIB, PERONEAL, DP W\ VE[place] CON[place] [address]) Patient Active Problem List Diagnosis ??? Claudication ??? Non-healing ulcer of foot ??? DMII (diabetes mellitus, type 2) ??? Hypercholesterolemia ??? Hypertension ??? PAD (peripheral artery disease) Past Medical History Diagnosis Date ??? HTN (hypertension) ??? DM (diabetes mellitus) metformin ??? Hypercholesterolemia ??? PVD (peripheral vascular disease) Past Surgical History Procedure Laterality Date ??? Skin graft Left left 2nd metacarpal History Substance Use Topics ??? Smoking status: Never Smoker ??? Smokeless tobacco: Not on file ??? Alcohol Use: No History Drug Use Not on file Comment: marijuana (smoked for 8 years. quit 2004) No Known Allergies Medications: MAR and/or home medications have been reviewed. Physical Exam: There were no vitals filed for this visit. There is no weight on file to calculate BMI. Airway Assessment: Mallampati: II TM distance: >3 FB Neck ROM: full Cardiovascular Assessment: Rhythm: regular Rate: normal (+) carotid bruit Pulmonary Assessment: breath sounds clear to auscultation Dental Assessment: Misc Assessment: EKG 03/16/15 Sinus rhythm with frequent Premature ventricular complexes in a pattern of bigeminy Nonspecific ST and T wave abnormality Abnormal ECG No previous ECGs available Confirmed by MD ELEUTERIO, EDGAR ([id number]) on 03/16/2015 12:47:33 PM Anesthesia Plan: ASA 4 general, with a(n) intravenous induction Carrie Hurst is a 64 y/o 52.164kg female with a PMH significant for PVD, HTN and DM. Has not seen PCP in 20 years. Seen by PAT clinic where she voiced concerning symptoms of rest/stress induced chestpain, DSE (03/16/15) with evidence for basal inferior/inferoseptal infarction and stress inducible ischemia in the apex and apical lateral wall. She denies GERD, esophageal pathology, worsening angina and SOB. NKDA and she is appropriately NPO. Patient has DM, HTN, and hyperlipidemia. BG's usually around 150, SBP usually in the 140's. We had an extensive discussion around her cardiac function and stress test results. Dr. Bassett and Dr. Doyle discusse postponing surgery and it was thought that her area of ischemia is small and maynot be amenable to revascularization. Dr. Doyle and the patient feel that without surgery there is asubstantial risk that the patient may lose her leg. The patient wished to proceed with the understanding that she may have an AK with associated morbidity and mortality. We will try and rate control her with beta blockers and we will place a ORBBIE if she becomes unstable. Plan is for a GA with ETT and arterial line. Possible central line, possible ROBBIE if the patient becomes unstable. Both patient and her significant other agree to the risks and indicate that they acceptthe risks and would like to proceed. Region - Other Informed Consent: Anesthetic plan and risks discussed with patient and spouse. Plan discussed with resident. Anesthesia options, risks and complications discussed.These risks included, but were not limited to,post-operative nausea and/or vomiting, pain, sore throat, dental/lip trauma, and other rare but serious complications such as major organ damage, severe allergic reactions, position-related nerve injuries, and need for blood transfusions. All questions sought and answered. The patient is aware that the final anesthetic plan will be deferred to the primary anesthesia team. [facility]. Assessment: Given her pain on exertion relieved by rest, bigeminey and new finding of carotid bruits L>R I have discussed this case at length with Casting Machine Operator Dr. Cole who has expedited DSE for 2pm today at [facility]. Creat >60, had sips of clear liquid after angiogram this am but has not eaten, is not on BB. Patient went for Xray where I found her to discuss plan to move forward with cardiac work up and instruct her not to eat. After Xray she will return to [facility] and then have DSE at 2pm today. Follow up plan will be based on DSE findings. Will send note to surgeon and PCP. Sheela De Paz DNP, COMPUTING SYSTEMS MECHANIC-BC, PIPELINE CONTROLLER Pre-Admission Testing Department of Anesthesiology [phone] 1:11 PM, 03/16/2015 Addendum 03/16/15 EKG from PAT visit on 03/16/15 Sinus rhythm with frequent Premature ventricular [...] apical lateral wall (with technically difficult imaging). Case discussed with Dr. Jean, timing and risk analysis to be determined by Dr. Wilcox (assigned to case and director of PAT) and Dr. Doyle today. Patients fem/distal bypass is scheduled for tomorrow am ~11am. She has follow up with cardiology on 03/25/15. Sheela [facility] DNP, COMPUTING SYSTEMS MECHANIC-BC, PIPELINE CONTROLLER Pre-Admission Testing Department of Anesthesiology [phone] 2:54 PM, 03/17/2015 documented in this encounter Miscellaneous Notes Addendum Note - Dontrell Romero MD - 03/21/2015 6:32 PM EDT Addendum created 03/21/15 183 by Dontrell Romero MD Modules edited: Anesthesia Medication Administration documented in this encounter Plan of Treatment Not on filedocumented as of this encounter Visit Diagnoses Not on filedocumented in this encounter Administered Medications Inactive Administered Medications - up to 3 most recent administrations Medication Order MAR Action Action Date Dose Rate Site ceFAZolin (ANCEF) 2g in dextrose 5% Given 03/18/2015 4:46 PM EDT 1 g 50 mL 2 g, Intravenous, ONCE, 1 dose, On Sat03/18/15 at 1045, Administer over 30 Minutes, Redose every 3 hours if CrCl is greater than 20. Redose every 8 hours if CrCl is less than 20., Day of Surgery (Day of Procedure), Indication for (Active or Suspected): Prophylaxis Given 03/18/2015 1:46 PM EDT 2 g esmolol (BREVIBLOC) injection Given 03/18/2015 7:30 PM EDT 10 mg PRN, Starting on Sat03/18/15 at 1357, Until Sat03/18/15 at 1945, Anesthesia Intra-op, Routine Given 03/18/2015 7:28 PM EDT 10 mg Given 03/18/2015 2:04 PM EDT 20 mg fentaNYL 50 mcg/mL multi-dose injection Given 03/18/2015 7:17 PM EDT 25 mcg PRN, Starting on Sat03/18/15 at 1352, Until Sat03/18/15 at 1945, Pain, Anesthesia Intra-op, Routine Given 03/18/2015 6:20 PM EDT 25 mcg Given 03/18/2015 5:06 PM EDT 25 mcg heparin (porcine) injection Given 03/18/2015 6:04 PM EDT 1,000 Units PRN, Starting on Sat03/18/15 at 1624, Until Sat03/18/15 at 1945, Anesthesia Intra-op, Routine Given 03/18/2015 5:08 PM EDT 2,000 Units Given 03/18/2015 4:24 PM EDT 5,000 Units labetalol (NORMODYNE,TRANDATE) multi-dose Given 03/18/2015 7:17 PM EDT 5 mg injection PRN, Starting on Sat03/18/15 at 1459, Until Sat03/18/15 at 1945, High Blood Pressure, Anesthesia Intra-op, Routine Given 03/18/2015 2:59 PM EDT 5 mg lactated ringers infusion New Bag 03/18/2015 1:25 PM EDT CONTINUOUS PRN, Starting on Sat03/18/15 at 1325, Until Sat03/18/15 at 1945, Anesthesia Intra-op lactated ringers infusion New Bag 03/18/2015 1:18 PM EDT CONTINUOUS PRN, Starting on Sat03/18/15 at 1318, Until Sat03/18/15 at 1945, Anesthesia Intra-op lidocaine (PF) (XYLOCAINE) 100 mg/5 mL (2 %) Given 5 1:27 PM EDT 20 mg injection PRN, Starting on Sat03/18/15 at 1327, Until Sat03/18/15 at 1945, Anesthesia Intra-op, Routine meTOPROLOL (LOPRESSOR) injection Given 03/18/2015 2:43 PM EDT 2 mg PRN, Starting on Sat03/18/15 at 1443, Until Sat03/18/15 at 1945, High Blood Pressure, Anesthesia Intra-op, Routine midazolam (PF) (VERSED) 1 mg/mL multi-dose Given 03/18/2015 1:18 PM EDT 2 mg injection PRN, Starting on Sat03/18/15 at 1318, Until Yadira 08/11/15 at 1407, Sleep, Anesthesia Intra-op, Routine ondansetron (ZOFRAN) injection Given 03/18/2015 7:29 PM EDT 4 mg PRN, Starting on Sat03/18/15 at 1929, Until Sat03/18/15 at 1945, Nausea, Anesthesia Intra-op, Routine PHENYLephrine Rate/Dose Change 03/18/2015 6:14 30 mcg/min 22.5 mL/hr (TONI-SYNEPHRINE) 20 mg in PM EDT sodium chloride 250 mL (standard ADULT & Saba greater than 20kg) infusion CONTINUOUS PRN, Starting on Sat03/18/15 at 1519, Until Sat03/18/15 at 1945, Anesthesia Intra-op, Routine Rate/Dose Change 03/18/2015 5:29 PM EDT 40 mcg/min 30 mL/hr Rate/Dose Change 03/18/2015 5:21 PM EDT 30 mcg/min 22.5 mL/hr PHENYLephrine HCl in NS (PF) (TONI-SYNEPHRINE) Given 7:13 PM EDT 80 mcg 0.8 mg/10 mL (80 mcg/mL) multi-dose injection Syrg PRN, Starting on Sat03/18/15 at 1356, Until Sat03/18/15 at 1945, Anesthesia Intra-op, Routine Given 03/18/2015 7:11 PM EDT 80 mcg Given 03/18/2015 7:04 PM EDT 80 mcg propofol (DIPRIVAN) 10 mg/mL bolus injection Given 5 7:17 PM EDT 30 mg (Anesthesia) PRN, Starting on Sat03/18/15 at 1327, Until Sat03/18/15 at 1945, Anesthesia Intra-op Given 03/18/2015 6:20 PM EDT 20 mg Given 03/18/2015 3:58 PM EDT 20 mg protamine injection Given 03/18/2015 6:38 PM EDT 20 mg PRN, Starting on Sat03/18/15 at 1838, Until Sat03/18/15 at 1945, Anesthesia Intra-op, Routine rocuronium (ZEMURON) multi-dose injectio n Given 03/18/2015 1:27 PM EDT 40 mg PRN, Starting on Sat03/18/15 at 1327, Until Sat03/18/15 at 1945, Anesthesia Intra-op, Routine documented in this encounter Care Teams Fire Sprinkler Service Technician Relationship Specialty Start Date End Date Shirley Cardenas APRN PCP - General 02/15/15 03/31/15 documented as of this encounter
--- OUTSIDE RECORDS SUMMARY | 2022-01-25 01:01 | XMS_ITS | Encounter Summary ---
:1950 [place] [address] Care Team Providers Name Role Phone Shirley Cardenas APRN Primary Care Provider Encounter Details Date Type Department Care Team Description 03/16/2015 Hospital Encounter Non-Invasive CLINIC, DR HUGHES Chest pain, Cardiology Lab Baudilio Fletcher MD [facility] [place] [address] [place] [id number] Social History Tobacco Use Types Packs/Day Years Used Date Never Smoker Alcohol Use Standard Drinks/Week Comments No 0 (1 standard drink = 0.6 oz pure alcoho l) Sex Assigned at Date Recorded Not on file documented as of this encounter Last Filed Vital Signs Vital Sign Reading Time Taken Comments Blood Pressure 177/76 03/16/2015 3:04 PM EDT Pulse 62 03/16/2015 3:04 PM EDT Temperature - - Respiratory Rate 18 03/16/2015 3:04 PM EDT Oxygen Saturation 98% 03/16/2015 3:04 PM EDT Inhaled Oxygen Concentration - - Weight 52.2 kg (115 lb) 03/16/2015 3:04 PM EDT Height 152.4 cm (5') 03/16/2015 3:04 PM EDT Body Mass Index 22.46 03/16/2015 3:04 PM EDT documented in this encounter Medications at Time [...] Name Priority Date/Time Associated Comments Diagnosis ECHOCARDIOGRAM Routine 03/16/2015 3:58 Chest pain, Results fo r this PHARMACOLOGICAL STRESS PM EDT unspecified chest procedure are in TEST (DSE) pain type the results section. documented in this encounter Results Echo pharm stress test (DSE) (03/16/2015 3:58 PM EDT) P athologist Signature EF 65 HEARTBasic-Fit SYSTEM Specimen (Source) Anatomical Location Collection Method / Collectio n Time Received Time / Laterality Volume 03/16/2015 Narrative HEARTLAB SYSTEM - 03/16/2015 5:00 PM EDT Amended Report Procedure: ?Stress Echocardiogram Patient: ?ORLANDO GILES Shayla ?(Age): 1950(64y) Med Rec#: ? [id number] ?Sex: ?F ? Site Loc: ? [facility] ?Ht / Wt: ??0(cm)/0(kg) ? Pt. Loc: ?Echo Lab ?BSA: ?0 Study Date: ?? 03/16/2015 ?Pt. Type: Tape: ? Referring: Baudilio Bassett Reading: Iglesia Oliver ([id number]) Refueling Ramp Supervisor: Shirley Soto Nurse: Elizabeth Kessler Diagnosis: *Pre-op cardiovascular evaluation (V72. 81) CPT Codes: *Stress Echo (44909) *Color Doppler (34667) *Doppler LTD (97785) *ECG Interpretation (24483) *Definity (59518DM) Indication: ?? Pre-op evaluation Stage ? BP [...] E-wave Vmax ?0.7 ?m/sec ? MV deceleration zaoo174.4 ? msec ? MV A-wave Vmax ?1.2 [...] ?Normal ?Normal ? Mid-Inferoseptal ?Normal ?Normal ? Troy-Septal ? Normal ?Normal ? Troy-Anterior ? Normal ?Normal ? Troy-Lateral ?Normal ?Hypokinetic ? Troy-Inferior ? Normal ?Normal ? Troy-Tip ?Normal ?Akinetic ? This report has been electronically sign ed by: _ Iglesia Oliver MD ? 03/16/2015 18:32 :33 Images reviewed and interpretation katia rabago [facility] Cardiac Ultrasound Laboratory Procedure Note Iglesia Oliver MD - 03/16/2015Formattricardo mcguire of this note might be different from the original. Amended Report Procedure: Stress Echocardiogram Patient: ORLANDO Mcguire (Age): [birth year](64y) Med Rec#: [id number] Sex: F Site Loc: [facility] Ht / Wt: 0(cm)/0(kg) Pt. Loc: Echo Lab BSA: 0 Study Date: 03/16/2015 Pt. Type: Tape: Referring: Baudilio Bassett Reading: Iglesia Oliver ([id number]) Refueling Ramp Supervisor: Shirley Soto Nurse: Elizabeth Kessler Diagnosis: *Pre-op cardiovascular evaluation (V72. 81) CPT Codes: *Stress Echo (21155) *Color Doppler (00761) *Doppler LTD (94828) *ECG Interpretation (65411) *Definity ([id number]) Indication: Pre-op evaluation Stage BP HR Rest [...] MV E-wave Vmax 0.7 m/sec MV deceleration uboq694.4 msec MV A-wave Vmax 1.2 m/sec MV [...] Normal Mid-Inferior Normal Normal Mid-Inferoseptal Normal Normal Troy-Septal Normal Normal Troy-Anterior Normal Normal Troy-Lateral Normal Hypokinetic Troy-Inferior Normal Normal Troy-Tip Normal Akinetic This report has been electronically sign ed by: _ Iglesia Oliver MD 03/16/2015 18:32:33 Images reviewed and interpretation katia rabago [facility] Cardiac Ultrasound Laboratory Baudilio Bassett MD ECHO ORDERABLES Performing Organization Address City/State/ZIP Code Phon e Number HEART[facility] SYSTEM documented in this encounter Visit Diagnoses Diagnosis Chest pain, unspecified chest pain type documented in this encounter Administered Medications Inactive Administered Medications - up to 3 most recent administrations Medication Order MAR Action Action Date Dose Rate Site atropine injection 1 mg Given 03/16/2015 2:45 PM EDT 1 mg 1 mg, Intravenous, ONCE, 1 dose, On Sat03/16/15 at 1445, Echo Lab (Intra-Procedure), Routine DOBUTamine 500 mg in sodium Given 03/16/2015 2:30 PM EDT 2.0 88 mg/min 62.6 mL/hr chloride 0.9% 250 mL (ECHO LAB) 40 mcg/kg/min ? 52.2 kg (62.64 mL/hr, rounded to 62.6 mL/hr), Intravenous, ONCE, 1 dose, On Sat03/16/15 at 1430, Administer over 13.29 Minutes, 6.6cc infused., Echo Lab (Intra-Procedure) meTOPROLOL (LOPRESSOR) injection 5 mg Given 03/16/2015 3:00 PM EDT 5 mg 5 mg, Intravenous, EVERY 5 MIN PRN, Starting on Sat07/07/99 at 1500, Until Sat03/16/15 at 1559, High Blood Pressure, Echo Lab (Intra-Procedure), Routine perflutren lipid microspheres (DEFINITY) Given 03/16/2015 3:15 P M EDT 1.2 mLs injection 1.2 mL 1.2 mL, Intravenous, ONCE PRN, 1 dose, Starting on Sat03/16/15 at 1559, Until Sat03/16/15 at 1515, echo, Routine documented in this encounter Care Teams Vp Care Management Relationship Specialty Start Date End Date Shirley Cardenas APRN PCP - General 02/15/15 03/31/15 documented as of this encounter
--- OUTSIDE RECORDS SUMMARY | 2022-01-25 01:01 | XMS_ITS | Encounter Summary ---
:1950 Author Organization [facility] [place] [address] Care Team Providers Name Role Phone Shirley Zurita APRN Primary Care Provider Encounter Details Date Type Department Care Team Description 03/16/2015 Hospital Encounter Radiology at [facility], DR HUGHES PAD ([facility] [place] Mariano Doyle MD [facility] [place] [address] artery disease) [place] [id number] Social History Tobacco Use Types Packs/Day Years Used Date Never Smoker Alcohol Use Standard Drinks/Week Comments No 0 (1 standard drink = 0.6 oz pure alcoho l) Sex Assigned at Date Recorded Not on file documented as of this encounter Last Filed Vital Signs Vital Sign Reading Time Taken Comments Blood Pressure 141/60 03/16/2015 8:50 AM EDT Pulse 70 03/16/2015 8:50 AM EDT Temperature 35.8 ??C (96.4 ??F) 03/16/2015 6:45 AM EDT Respiratory Rate 13 03/16/2015 8:50 AM EDT Oxygen Saturation 97% 03/16/2015 8:50 AM EDT Inhaled Oxygen Concentration - - Weight 52.3 kg (115 lb 4.8 oz) 03/16/2015 6:45 AM EDT Height - - Body Mass Index 21.79 03/08/2015 2:50 PM EDT documented in this encounter Medications [...] documented as of this encounter Progress Notes Adriana Diaz RN - 03/17/2015 8:08 AM EDT Interventional and Vascular Radiology Post-Procedure Call Name: Carrie Perry Age: 64 y.o. Sex; Female Date of : 1950 (home) No relevant phone numbers on file. PCP SHIRLEY ZURITA APRN (General) [phone] Date/Time of call: March 17, 2015/8:08 AM Procedure: BLE angiogram-diagnostic only Procedural Provider: Dr Whitaker/Dr Doyle Contact with patient or if not, with whom? Yes--she called back. Message left on answering machine? YES Provider notified via phone or email if unable to contact pt: YES-email to Dr Doyle and Dr Whitaker Are you having pain related to your procedure now? No Are you having any swelling or bleeding from the site? No Are there any improvement in your symptoms? Needs surgery on 03/18/2015 Are you having any other problems related to your procedure? No Comments: Did you understand the discharge instructions given and do you have any questions? Yes Comments: Do you have any comments about your Nurse or Provider or the care you received? Everything went well. Nurse Comments: Keo Logan RN - 03/09/2015 3:47 PM EDT ANGIO NURSING DATABASE Name: CARRIE PERRY Date of : 1950 AGE 64 y.o. Address: [address] [place] [id number] (home) Mobile: No relevant phone numbers on file. Referring Provider: Mariano Doyle REASON FOR VISIT: LLE angiogram/ Severe lower extremity arterial occlusive disease ? Bypass graft pending angio results History of Present Illness: This is a 64 y.o. Lady who presents for evaluation of bilateral leg pain with walking and left foot pain. Developed calf pain with ambulation earlier this year, has developed left foot pain at rest about 3 months ago. No ulcers. Assessment and Plan: PAD with critical limb [...] arteriogram has been scheduled for next Sat. No Known Allergies Pertinent PMH: HTN Diabetes hyperlipidemia Pertinent PSH: No past surgical history on file. Date/Procedure Med's given/comments 03/16/15 BLE agram - diagnostic only Versed 2mg IV, Fentanyl 100mcg IV Laboratory Results: No results found for: INR No components found for: PT/PTT Lab Results Component Value Date CREATININE 0.56* 03/08/2015 No results found for: K No results found for: PLATELET Medications: Prior to Admission medications Medication Sig Start Date End Date Taking? Authorizing Provider metFORMIN (GLUCOPHAGE) 500 mg Tablet Take 500 [...] needed for Pain. PROVIDER, HISTORICAL ++++ FOR OUTPATIENT SCAN'S: I have informed this patient that they require a commercial collections driver to be present and in the building to drive them home after this procedure. In the absence of a commercial collections driver, IR will not beable to perform this procedure and will need to reschedule. Pt verbalized understanding of these inst ructions during the pre-procedure education via phone. (initials) documented in this encounter H&P Notes Siva Whitaker MD - 03/11/2015 1:29 PM EDT Vascular Surgery History and Physical HPI: Ms. Carrie Perry is a 64yo female with PMHx significant for DM, HTN, HLD and a history of BLE claudication who presented to clinic on 03/08/15 with new complaint of LLE rest pain in the last 3 months. There is no tissue loss. Today she denies CP, SOB, and recent coughs, colds, and fevers. Review of Systems: A full review encompassing at least 8 organ systems including general, neuro, pulm, cardiac, GI, ,MSK, Endo, and psych was negative other than that listed in the HPI No past medical history on file. No past surgical history on file. Medications: Current Outpatient Prescriptions on File Prior to Encounter Medication Sig Dispense Refill ??? metFORMIN (GLUCOPHAGE) 500 mg Tablet Take [...] needed for Pain. No current facility-administered medications on file prior to encounter. Allergies: Review of patient's allergies indicates no known allergies. Physical Exam: Temp: -- Heart Rate: -- Resp: -- BP: ()/() SpO2: -- General: alert, cooperative, no acute distress HEENT: normocephalic, atraumatic Neck: trachea midline CVS: regular rate, no murmurs rubs or gallops Pulm: clear to auscultation bilaterally Abd: soft, non tender, non distended Ext: RLE: No edema. Skin warm and pink. No tissue loss. Brisk capillary refill, palp fem pulse, DP/PT doppler signals, non-palpable, pop non-palpable LLE: No edema. Skin erythematous. No tissue loss. Non palp pop/DP/PT, DP/PT doppler signals Neuro: no focal deficits, moving all extremities. Labs: No results for input(s): WBC, HGB, HCT, PLATELET in the last 72 hours. Recent Labs 03/08/15 1532 CREATININE 0.56* Imaging: [facility] 03/08/15 Findings: Right Pressure (mm [...] mid calf due to marginal vein diameter. Assessment and Plan: Ms. Carrie Perry is a 64yo female with PMHx significant for DM, HTN, HLD with bilateral lower extremity claudication that has now transitioned to CLI (rest pain) of the LLE. ABIs are diminished bilaterally. We will plan BLE diagnostic arteriograms. This patient will likely require a bypass but if any lesions appear amenable to endovascular repair, we will proceed with that as well. We will use right femoral access. Vein mapping showed a GSV that is not suitable conduit for a bypass but another vein that remains >3mm throughout nearly its whole course from near the SFJ to the calf. ASA 2 Mal 3 Cr 0.56 Siva Whitaker MD [id number] 03/11/2015 1:29 PM documented in this encounter Procedure Notes Siva Whitaker MD - 03/16/2015 11:44 AM EDT Vascular Surgery Interventional Procedure Note Pre-Operative Diagnosis: 1. Left lower extremity critical limb ischemia Post-Operative Diagnosis: 1. same Procedure: 1. Rt. femoral arterial access with fluoroscopic guidance 2. Aortogram 3. Left pelvic arteriogram 4. Second order selective catheterization of left common femoral artery 5. LLE arteriogram in bolus josé antonio fashion 6. RLE arteriogram in bolus josé antonio fashion 7. Mynx closure Surgeons: aFrshad Whitaker Intra-procedural Medications: Versed dose: 2 mg Fentanyl dose: 100 mcg Local anesthetic: 8 cc 1% lidocaine Antibiotics: none Fluoro Time: 4.6 min Contrast: 55 mL Sheath Size: 5 Fr Indications: Ms. Carrie Perry is a 64yo female with PMHx significant for DM, HTN, HLD with bilateral lower extremity claudication that has now transitioned to CLI (rest pain) of the LLE. ABIs are diminished bilaterally. Findings: - Aortogram demonstrated patent aorta without evidence [...] better demonstrated. - LLE arteriogram demonstrates patent FLY RAIL OPERATOR and profunda. The SFA is occluded from [...] entire course. - RLE arteriogram demonstrates patent FLY RAIL OPERATOR and profunda. The SFA appears occluded from [...] supplying one vessel runoff to the foot. Technical Procedure: The patient was correctly identified in the pre-procedure holding area. After a discussion of the risks and benefits, procedural consent was obtained. The patient was brought to the angio suite and placed supine upon the angio table. The patient was prepped and draped in the usual sterile fashion. A time-out was performed by the attending surgeon. Split doses of fentanyl and versed were administeredfor conscious sedation by the Interventional Radiology nurse during continuous monitoring of pulse, blood pressure and oxygen saturation. After injection of local anesthetic, percutaneous access was obtained via the right femoral artery under fluoroscopic guidance using a micro puncture technique. A cope wire was inserted and upsized to a 5F sheath over a J-wire. A 5F omni-flush catheter was advancedinto the infrarenal aorta over the wire. Diagnostic aortography was performed with the above findings. The flush catheter was repositioned inferiorly near the level of the aortic bifurcation and pelvic arteriogram was performed with the above findings. The wire and catheter were then used to selectively catheterize the left common iliac artery. The wire and catheter were advanced down to the common femoral artery. The left lower extremity was then imaged in bolus-josé antonio fashion. Findings are as described above. The catheter was removed over the wireand the wire was removed. The right lower extremity was imaged in bolus-josé antonio fashion with the findings as described above. A Mynx closure device was used per IFU. The sheath was removed and manual pressure was held over the puncture site for 10 minutes. Hemostasis was satisfactory. The puncture site was dressed with a dry gauze and tegaderm. Dr. Doyle the attending surgeon was scrubbed and present for the entire procedure. Plan: - Two hours flat bedrest - Start aspirin 81mg daily - Complete pre-operative testing - Plan for femoral-peroneal bypass with ipsilateral vein (not GSV) on Saturday Siva Whitaker MD [id number] 03/16/2015 12:30 PM Associated attestation - Mariano Doyle MD - 03/25/2015 9:22 AM EDT Attending addendum: I was present for and participated in this entire case. I agree with the documentation above documented in this encounter Plan of Treatment Not on filedocumented as of this encounter Procedures Procedure Name Priority Date/Time Associated Comments Diagnosis URINALYSIS WITHOUT Routine 03/16/2015 12:01 PAD (peripheral Re sults for this MICROSCOPIC PM EDT artery disease) procedure ar e in the results section. HEMOGRAM Routine 03/16/2015 12:00 PAD (peripheral Results for this PM EDT artery disease) procedure ar e in the results section. DIFFERENTIAL, Routine 03/16/2015 12:00 PAD (peripheral Results for this AUTOMATED PM EDT artery disease) procedure ar e in the results section. CBC (WITH DIFF) Routine 03/16/2015 12:00 PAD (peripheral PM EDT artery disease) BASIC METABOLIC PANEL Routine 03/16/2015 12:00 PAD (peripheral Results for this (NON-FASTING) PM EDT artery disease) procedure a re in the results section. TYPE AND SCREEN, SDP Routine 03/16/2015 11:59 PAD (peripheral (FUTURE SURGERY, [facility] AM EDT artery disease) SAME DAY PROGRAM ONLY) ABO/RH TYPING Routine 03/16/2015 11:59 PAD (peripheral Results for this AM EDT artery disease) procedure ar e in the results section. ANTIBODY SCREEN Routine 03/16/2015 11:59 PAD (peripheral Resul ts for this AM EDT artery disease) procedure ar e in the results section. VS ARTERIOGRAM LOWER Routine 03/16/2015 8:37 AM R esults for this EXTREMITY VASCULAR EDT procedure are in SURGERY the results section. POCT GLUCOSE Routine 03/16/2015 7:14 AM Results f or this EDT procedure are i n the results section. documented in this encounter Results (ABNORMAL) Urinalysis without microscopic (03/16/2015 12:01 PM EDT) [facility] Signature Glucose UA Negative Negative [...] UA Clear Clear CERNER MILLENNIU M Spec [place] UA 1.029 1.002 - 1.030 CERNER MIL LENNIUM Color UA Straw Yellow CERNER MILLENNIUM Specimen Anatomical Collection Method Collection Time Receive d Time (Source) Location / / Volume Laterality Urine specimen 03/16/2015 12:01 5 (specimen) PM EDT 12:05 PM EDT Resulting Agency Comment Spec In Lab Mariano Doyle MD URINE ORDERABLES Performing Organization Address City/State/ZIP Code Phon e Number [place] [phone] CERNER MILLENNIUM Differential, Automated (03/16/2015 12:00 PM EDT) athologist Signature Neutrophils % 71.9 % CERNER MILLENNIUM Neutr Abs (ANC) 4.81 1.50 - CERNER 6.30 MILLENNIUM x10(3)/mcL Lymphocytes % 20.4 % CERNER MILLENNIUM Lymphocytes Abs 1.4 1.0 - 3.6 CERNER x10(3)/mcL MILLENNIUM Monocytes % 7.0 % CERNER MILLENNIUM Monocyte Abs 0.5 0.2 - 1.0 CERNER x10(3)/mcL MILLENNIUM Eosinophils % 0.4 % CERNER MILLENNIUM Eosinophils Abs 0.0 0.0 - 0.5 CERNER x10(3)/mcL MILLENNIUM Basophils % 0.3 % CERNER MILLENNIUM Basophils Abs 0.0 0.0 - 0.2 CERNER x10(3)/mcL MILLENNIUM Immature Gran % 0.00 % CERNER MILLENNIUM Comment: Immature granulocytes(IG's)percentage an d absolute count will include metamyelocytes, myelocytes, and promyelo cytes. Blood smears from CBCs yielding IG's will be scanned manually for concor dance. If this scan disagrees with the automated IG or if promyelocytes are not ed, a manual differential will be performed. Rosenda Gran Abs 0.00 0.00 - 0.05 x10(3)/mcL CER NER MILLENNIUM Specimen Anatomical Collection Method Collection Time Receive d Time (Source) Location / / Volume Laterality Blood specimen 03/16/2015 12:00 5 (specimen) PM EDT 12:05 PM EDT Resulting Agency Comment Spec In Lab Mariano Doyle MD HEMATOLOGY ORDERABLES Performing Organization Address City/State/[place] [address] CERNER MILLENNIUM (ABNORMAL) Hemogram (03/16/2015 12:00 PM EDT) P athologist Signature WBC 6.7 4.0 - 10.0 CERNER x10(3)/mcL MILLENNIUM RBC 4.31 3.93 - CERNER 5.22 MILLENNIUM x10(6)/mcL Hemoglobin 14.0 11.2 - CERNER 15.7 gm/dL MILLENNIUM Hematocrit 40.0 34.0 - CERNER 45.0 % MILLENNIUM MCV 92.8 79.0 - CERNER 94.0 fL MILLENNIUM MCH 32.5 (H) 26.6 - CERNER 32.2 pg MILLENNIUM MCHC 35.0 32.0 - CERNER 36.5 gm/dL MILLENNIUM Platelets 216 145 - 370 CERNER x10(3)/mcL MILLENNIUM RDWSD 45.8 35.0 - CERNER 46.0 fL MILLENNIUM RDWCV 13.5 10.9 - CERNER 14.4 % MILLENNIUM MPV 11.8 9.0 - 12.0 CERNER fL MILLENNIUM Specimen Anatomical Collection Method Collection Time Receive d Time (Source) Location / / Volume Laterality Blood specimen 03/16/2015 12:00 5 (specimen) PM EDT 12:05 PM EDT Resulting Agency Comment Spec In Lab Mariano Doyle MD HEMATOLOGY ORDERABLES Performing Organization Address City/State/ZIP Code Phon e Number [place] [phone] CERNER MILLENNIUM (ABNORMAL) Basic [...] supplied above were not validated at [facility]. Results from pediatri c [...] - 15 mmol/L CERNER MILLENNIU M Calcium 9.0 8.5 - 10.5 mg/dL CERNER KINGSLEY NIUM [...] the following links into your internet browser. [email or web address] Specimen Anatomical Collection Method Collection Time Receive d Time (Source) Location / / Volume Laterality Blood specimen 03/16/2015 12:00 5 (specimen) PM EDT 12:05 PM EDT Resulting Agency Comment Spec In Lab Mariano Doyle MD CHEMISTRY ORDERABLES Performing Organization Address [facility] [place] [address] CERNER MILLENNIUM Antibody screen (03/16/2015 11:59 AM EDT) Patholo gist Method Time Signature Ab Screen Negative CERNER Interp MILLENNIUM Expires at 03/21/2015 [facility] [id number] on: MILLENNIUM Specimen Anatomical Collection Method Collection Time Receive d Time (Source) Location / / Volume Laterality Blood specimen 03/16/2015 11:59 5 (specimen) AM EDT 12:11 PM EDT Resulting Agency Comment Spec In Lab Mariano Doyle MD BLOOD BANK ORDERABLES Performing Organization Address City/[facility]/ZIP Code Phon e Number [address] CERNER MILLENNIUM ABO/Rh Typing (03/16/2015 11:59 AM EDT) P athologist Signature ABORh Type A Neg CERNER MILLENNIUM Specimen Anatomical Collection Method Collection Time Receive d Time (Source) Location / / Volume Laterality Blood specimen 03/16/2015 11:59 5 (specimen) AM EDT 12:11 PM EDT Resulting Agency Comment Spec In Lab Mariano Doyle MD BLOOD BANK ORDERABLES Performing Organization Address City/[facility]/ZIP Code Phon e Number [facility] [place] [address] DANIEL SIMON VS Angiogram/intervention (vascular) (03/16/2015 8:37 AM EDT) Anatomical Region Laterality Modality X-Ray Angiography Specimen (Source) Anatomical Collection Method Collection Time Re ceived Time Location / / Volume Laterality 03/16/2015 8:37 AM EDT Narrative 03/28/2015 3:12 PM EDT Attestation signed by Mariano Doyle MD at 03/25/2015 9:22 AM Attending addendum: I was present for an d participated in this entire case. I agree with the documentation above ?? Vascular Surgery Interventional Procedur e Note Pre-Operative Diagnosis: 1. Left lower extremity critical limb is chemia Post-Operative Diagnosis: 1. same Procedure: 1. Rt. femoral ??arterial access with fl uoroscopic guidance 2. Aortogram 3. Left pelvic arteriogram 4. Second order selective catheterizatio n of left common femoral artery 5. LLE arteriogram in bolus josé antonio fashio n 6. RLE arteriogram in bolus josé antonio fashio n 7. Mynx closure Surgeons: Farshad Whitaker Intra-procedural Medications: Versed dose: 2 mg Fentanyl dose: 100 mcg Local anesthetic: 8 cc 1% lidocaine Antibiotics: none Fluoro Time: 4.6 min Contrast: 55 mL Sheath Size: ??5 Fr Indications: Ms. Carrie Perry is a 64yo female with PMHx significant for DM, HTN, HLD with bilateral lower extremity claudication t hat has now transitioned to CLI (rest pain) of the LLE. ABIs are diminished bi laterally. Findings: - Aortogram demonstrated patent aorta wi thout evidence of aneurysmal or occlusive disease. Patent renal arteries bilaterally without evidence of aneurysmal or occlusive disease. The rig ht common, internal, and external iliac arteries are patent without evidence of aneurysm or occlusive disease. The left common iliac artery demonstrates a singl e mild stenosis near the aortic bifurcation but otherwise appears widely patent. The left external iliac artery appears patent without evidence of aneur ysm or occlusive disease. The left internal iliac artery appears to have a focal moderate stenosis near its origin and is otherwise patent without stenoses . - Pelvic arteriogram confirms the above findings of the left common, internal, and external iliac arteries. The focally stenotic areas near the origin of the left common iliac artery and the origin of the left internal iliac arteries are better demonstrated. - LLE arteriogram demonstrates patent CF A and profunda. The SFA is occluded from its origin and reconstitutes distally fr om profunda collaterals. The distal SFA and popliteal arteries appear patent but diffusely stenotic. The popliteal artery appears to occlude at its distal endpoint with no tibial vessels clearly demonstrated at their respective origins . The peroneal artery appears to reconstitute midway down the leg. The PT appears to reconstitute near the ankle. The AT appears occluded throughout its e ntire course. - RLE arteriogram demonstrates patent CF A and profunda. The SFA appears occluded from its origin and appears to reconstit sun'aq in the mid thigh. The distal SFA appears diffusely stenotic. The poplitea l artery appears patent without significant aneurysmal or occlusive dise ase. The AT appears to occlude shortly distal from its origin and reconstitute near the ankle. The TP trunk appears patent but severely stenotic. The PT art gregory is not seen. The peroneal appears patent throughout its course, supplying one vessel runoff to the foot. Technical Procedure: The patient was correctly identified in the pre-procedure holding area. After a discussion of the risks and benefits, pr ocedural consent was obtained. The patient was brought to the angio suite a nd placed supine upon the angio table. The patient was prepped and draped in th e usual sterile fashion. A time-out was performed by the attending surgeon. Spli t doses of fentanyl and versed were administered for conscious sedation by t Interventional Radiology nurse during continuous monitoring of pulse, blood pr essure and oxygen saturation. After injection of local anesthetic, percutane ous access was obtained via the right femoral artery under fluoroscopic guidan ce using a micro puncture technique. A cope wire was inserted and upsized to a 5F sheath over a J-wire. A 5F omni-flush catheter was advanced into the infrarena l aorta over the wire. Diagnostic aortography was performed with the above findings. The flush catheter was repositioned inferiorly near the level o f the aortic bifurcation and pelvic arteriogram was performed with the above findings. The wire and catheter were then used to selectively catheterize the left common iliac artery. The wire and catheter were advanced down to the common femoral artery. The left lower extremity was the n imaged in bolus-josé antonio fashion. Findings are as described above. The cat heter was removed over the wire and the wire was removed. The right lower extrem ity was imaged in bolus-josé antonio fashion with the findings as described above. A Mynx closure device was used per IFU. The sheath was removed and manual pressu re was held over the puncture site for 10 minutes. Hemostasis was satisfactory. The puncture site was dressed with a dry gauze and tegaderm. Dr. Doyle the attending surgeon was scru bbed and present for the entire procedure. Plan: - Two hours flat bedrest - Start aspirin 81mg daily - Complete pre-operative testing - Plan for femoral-peroneal bypass with ipsilateral vein (not GSV) on Saturday Siva Whitaker MD [id number] 03/16/2015 12:30 PM Film and interpretation reviewed by the attending Procedure Note Mariano Doyle MD - 03/28/2015Formattin g of this note might be different from the original. Attestation signed by Mariano Doyle MD at 03/25/2015 9:22 AM Attending addendum: I was present for an d participated in this entire case. I agree with the documentation above Vascular Surgery Interventional Procedur e Note Pre-Operative Diagnosis: 1. Left lower extremity critical limb is chemia Post-Operative Diagnosis: 1. same Procedure: 1. Rt. femoral arterial access with fluo roscopic guidance 2. Aortogram 3. Left pelvic arteriogram 4. Second order selective catheterizatio n of left common femoral artery 5. LLE arteriogram in bolus josé antonio fashio n 6. RLE arteriogram in bolus josé antonio fashio n 7. Mynx closure Surgeons: Farshad Whitaker Intra-procedural Medications: Versed dose: 2 mg Fentanyl dose: 100 mcg Local anesthetic: 8 cc 1% lidocaine Antibiotics: none Fluoro Time: 4.6 min Contrast: 55 mL Sheath Size: 5 Fr Indications: Ms. Carrie Perry is a 64yo female with PMHx significant for DM, HTN, HLD with bilateral lower extremity claudication t hat has now transitioned to CLI (rest pain) of the LLE. ABIs are diminished bi laterally. Findings: - Aortogram demonstrated patent aorta wi thout evidence of aneurysmal or occlusive disease. Patent renal arteries bilaterally without evidence of aneurysmal or occlusive disease. The rig ht common, internal, and external iliac arteries are patent without evidence of aneurysm or occlusive disease. The left common iliac artery demonstrates a singl e mild stenosis near the aortic bifurcation but otherwise appears widely patent. The left external iliac artery appears patent without evidence of aneur ysm or occlusive disease. The left internal iliac artery appears to have a focal moderate stenosis near its origin and is otherwise patent without stenoses . - Pelvic arteriogram confirms the above findings of the left common, internal, and external iliac arteries. The focally stenotic areas near the origin of the left common iliac artery and the origin of the left internal iliac arteries are better demonstrated. - LLE arteriogram demonstrates patent CF A and profunda. The SFA is occluded from its origin and reconstitutes distally fr om profunda collaterals. The distal SFA and popliteal arteries appear patent but diffusely stenotic. The popliteal artery appears to occlude at its distal endpoint with no tibial vessels clearly demonstrated at their respective origins . The peroneal artery appears to reconstitute midway down the leg. The PT appears to reconstitute near the ankle. The AT appears occluded throughout its e ntire course. - RLE arteriogram demonstrates patent CF A and profunda. The SFA appears occluded from its origin and appears to reconstit sun'aq in the mid thigh. The distal SFA appears diffusely stenotic. The poplitea l artery appears patent without significant aneurysmal or occlusive dise ase. The AT appears to occlude shortly distal from its origin and reconstitute near the ankle. The TP trunk appears patent but severely stenotic. The PT art gregory is not seen. The peroneal appears patent throughout its course, supplying one vessel runoff to the foot. Technical Procedure: The patient was correctly identified in the pre-procedure holding area. After a discussion of the risks and benefits, pr ocedural consent was obtained. The patient was brought to the angio suite a nd placed supine upon the angio table. The patient was prepped and draped in th e usual sterile fashion. A time-out was performed by the attending surgeon. Spli t doses of fentanyl and versed were administered for conscious sedation by t he Interventional Radiology nurse during continuous monitoring of pulse, blood pr essure and oxygen saturation. After injection of local anesthetic, percutane ous access was obtained via the right femoral artery under fluoroscopic guidan ce using a micro puncture technique. A cope wire was inserted and upsized to a 5F sheath over a J-wire. A 5F omni-flush catheter was advanced into the infrarena l aorta over the wire. Diagnostic aortography was performed with the above findings. The flush catheter was repositioned inferiorly near the level o f the aortic bifurcation and pelvic arteriogram was performed with the above findings. The wire and catheter were then used to selectively catheterize the left common iliac artery. The wire and catheter were advanced down to the common femoral artery. The left lower extremity was the n imaged in bolus-josé antonio fashion. Findings are as described above. The cat heter was removed over the wire and the wire was removed. The right lower extrem ity was imaged in bolus-josé antonio fashion with the findings as described above. A Mynx closure device was used per IFU. The sheath was removed and manual pressu re was held over the puncture site for 10 minutes. Hemostasis was satisfactory. The puncture site was dressed with a dry gauze and tegaderm. Dr. Doyle the attending surgeon was scru bbed and present for the entire procedure. Plan: - Two hours flat bedrest - Start aspirin 81mg daily - Complete pre-operative testing - Plan for femoral-peroneal bypass with ipsilateral vein (not GSV) on Saturday Siva Whitaker MD [id number] 03/16/2015 12:30 PM Film and interpretation reviewed by the attending Mariano Doyle MD IMG IR ORDERABLES POCT Glucose (03/16/2015 7:14 AM EDT) athologist Signature POC Glucose 148 65 - 199 CERNER mg/dL [facility] Comment: Supplemental ranges: <140 mg/dL before meals <180 mg/dL all other times of the day Specimen Anatomical Collection Method Collection Time Receive d Time (Source) Location / / Volume Laterality Blood specimen 03/16/2015 7:14 AM 015 7:14 (specimen) EDT AM EDT Mariano Doyle MD POINT OF CARE TEST ORDERABLE S Performing Organization Address City/State/ZIP Code Phon e Number [place] [phone] [facility] documented in this encounter Visit Diagnoses Diagnosis PAD (peripheral artery disease) Peripheral vascular disease, unspecified documented in this encounter Administered Medications Inactive Administered Medications - up to 3 most recent administrations Medication Order MAR Action Action Date Dose Rate Site fentaNYL 50mcg/mL injection Given 03/16/2015 8:26 AM EDT 25 mcg 25-50 mcg, Intravenous, EVERY 5 MIN PRN, Starting on Sat03/16/15 at 0723, Until Sat03/16/15 at 0840, Pain, Angio/IR (Intra-Procedure), Routine Given 03/16/2015 8:05 AM EDT 50 mcg Given 03/16/2015 7:58 AM EDT 25 mcg midazolam (PF) (VERSED) 1 mg/mL injection Given 03/16/2015 8:26 AM EDT 0.5 mg 0.5-1 mg 0.5-1 mg, Intravenous, EVERY 5 MIN PRN, Starting on Sat03/16/15 at 0723, Until Sat03/16/15 at 0840, Sleep, Angio/IR (Intra-Procedure), Routine Given 03/16/2015 8:05 AM EDT 1 mg Given 03/16/2015 7:53 AM EDT 0.5 mg documented in this encounter Care Teams Punch Machine Operator Relationship Specialty Start Date End Date Shirley Zurita APRN PCP - General 02/15/15 03/31/15 documented as of this encounter
--- OUTSIDE RECORDS SUMMARY | 2022-01-25 01:01 | XMS_ITS | Encounter Summary ---
:1950 Author Organization [facility] Address [facility] [place] [address] Care Team Providers Name Role Phone Shirley Cardenas APRN Primary Care Provider Encounter Details Date Type Department Care Team Description 03/16/2015 Hospital Encounter XRay at [facility] PAD (peripheral artery [address] [place] [address] Dr disease) [place] [phone] Anesthesia Record Procedure Summary Procedure Name Responsible Anesthesia Start Anesthesia Stop Time Anesthesiologist Time @BYPASS GRAFT, Sites, Mariano Toledo MD 03/18/15 1321 03/18/15 1945 FEM.-ANT. TIB, POST. TIB, PERONEAL, DP W\ VEIN CONDUIT ([place] [id number]) (WRVU 32.35) (Left Leg) Events Date Time [...] the X below. 1935 an stop data 1944 Quick Note Pt. To PACU on O 2. AVSS. Breathing Spontaneously. No c/o pain or n ausea. Report given to CODING ADVISOR. Care transferred . 1944 Stop No medications [...] by right (underside of arm); Polly Dale, RN Troy Ha, RN [id number] catheter system; 18 gauge, 1 in length; [...] Name Priority Date/Time Associated Diagnosis Comme nts XR CHEST PA AND Routine 03/16/2015 1:18 PM Result s for this LATERAL EDT procedure are i n the results section. documented in this encounter Results XR Chest Routine PA & Lateral (03/16/2015 1:18 PM EDT) Anatomical Region Laterality Modality Chest N/A Radiographic Imaging Specimen (Source) Anatomical Collection Method Collection Time Re ceived Time Location / / Volume Laterality 03/16/2015 1:18 PM EDT Impressions 03/16/2015 1:31 PM EDT IMPRESSION: No significant abnormality. Narrative 03/16/2015 1:31 PM EDT EXAMINATION: CHEST ROUTINE 2 VIEWS CLINICAL HISTORY: PERIPHERAL VASCULAR DI SEASE UNSPECIFIED TECHNIQUE: Standing PA and lateral chest COMPARISON: None FINDINGS: The lungs are clear. Cardial mediastinal silhouette and avel appear normal. No pleural effusion or significant bone abn ormality is seen. Procedure Note Bharat Aaron MD - 03/16/2015Formatt ing of this note might be different from the original. EXAMINATION: CHEST ROUTINE 2 VIEWS CLINICAL HISTORY: PERIPHERAL VASCULAR DI SEASE UNSPECIFIED TECHNIQUE: Standing PA and lateral chest COMPARISON: None FINDINGS: The lungs are clear. Cardial mediastinal silhouette and avel appear normal. No pleural effusion or significant bone abn ormality is seen. IMPRESSION IMPRESSION: No significant abnormality. Mariano Doyle MD IMG DX ORDERABLES documented in this encounter Visit Diagnoses Diagnosis PAD (peripheral artery disease) Peripheral vascular disease, unspecified documented in this encounter Care Teams Desktop Support Technician Relationship Specialty Start Date End Date Shirley Cardenas, SUPERVISOR [employer]TING PCP - General 02/15/15 03/31/15 documented as of this encounter
--- NOTE | 2022-01-25 07:00 | DI.US_ITS ---
Exam(s) US ABDOMEN LIMITED EXAM: US ABDOMEN LIMITED CLINICAL HISTORY: epig. pain and elevated liver enzymes, abd pain, R10.9 TECHNIQUE: Ultrasound abdomen performed using standard protocol. COMPARISON: US US ECHOCARDIOGRAM from 09/24/2019 FINDINGS: There is no ascites evident. LIVER: There are no hepatic lesions evident nor dilatation of intrahepatic ducts. GALLBLADDER/BILIARY: There are no gallstones. No gallbladder wall edema nor pericholecystic fluid. The common hepatic duct isslightly dilated,, measuring 7-8mm at the level of terence hepatis. PANCREAS: There is no evidence of pancreatic mass nor dilatation of the pancreatic duct. RIGHT KIDNEY:No evidence of solid mass, calculus, nor hydronephrosis. No cortical cysts evident. IMPRESSION: 1. No evidence of cholelithiasis nor gallbladder wall edema. 2. Slight prominence of the common hepatic duct measures 7-8 millimeters. 3. No other significant right upper quadrant ultrasound findings. No ascites. DATA REPOSITORY:
== END ==
PROVIDERS: PCP Family Medicine; Visit Provider Family Medicine
DX: R10.13 Epigastric pain (principal); R74.01 Elevation of levels of liver transaminase levels
CPT/HCPCS: 76705

== ENCOUNTER 2022-01-25 01:16 | Outpatient (CLI) | payer MEDICARE, BC, SELFPAY ==
[2022-01-25 09:42] LABS: ALT 192 U/L (14-59); AST 158 U/L (15-37); Albumin 3.4 g/dL (3.4-5.0); Alkaline Phosphatase 106 U/L (46-116); Bilirubin, Direct 0.5 mg/dL (0.0-0.2); Bilirubin, Total 1.2 mg/dL (0.2-1.0); Total Protein 6.9 g/dL (6.4-8.2)
== END 2022-01-25 01:17 | disposition home or self-care (01) ==
LOC: LBO 01:16
PROVIDERS: PCP Family Medicine; Visit Provider Family Medicine
DX: G72.89 Other specified myopathies (principal)
CPT/HCPCS: 36415; 80076; 76705

== ENCOUNTER 2022-05-18 10:36 | Outpatient (CLI) | payer MEDICARE, BC, SELFPAY ==
[2022-05-18 12:35] LABS: ALT 19 U/L (14-59); AST 18 U/L (15-37); Albumin 3.5 g/dL (3.4-5.0); Alkaline Phosphatase 52 U/L (46-116); Bilirubin, Direct 0.1 mg/dL (0.0-0.2); Bilirubin, Total 0.5 mg/dL (0.2-1.0); Total Protein 7.1 g/dL (6.4-8.2)
== END 2022-05-18 10:37 | disposition home or self-care (01) ==
LOC: LOS 10:42
PROVIDERS: PCP Family Medicine; Visit Provider Family Medicine
DX: G72.89 Other specified myopathies (principal); I10 Essential (primary) hypertension; E11.9 Type 2 diabetes mellitus without complications
CPT/HCPCS: 36415; 80076

== ENCOUNTER 2022-10-25 11:34 | Outpatient (CLI) | payer MEDICARE, BC, SELFPAY ==
[2022-10-25 13:09] LABS: Anion Gap 9.7 mmol/L (3-11); BUN 27 mg/dL (7-18); CO2 28.3 mmol/L (21.0-32.0); Calcium 9.1 mg/dL (8.5-10.1); Chloride 101 mmol/L (98-107); Estimated GFR 59.86 (mL/min/1.73m2); Glucose 160 mg/dL (74-106); Potassium 4.3 mmol/L (3.5-5.1); Sodium 139 mmol/L (136-145)
[2022-10-25 13:12] LABS: Hemoglobin A1C 8.3 % (<5.7)
== END 2022-10-25 11:35 | disposition home or self-care (01) ==
LOC: LOS 11:35
PROVIDERS: PCP Family Medicine; Referring Provider Family Medicine; Visit Provider Family Medicine
DX: E11.51 Type 2 diabetes mellitus with diabetic peripheral angiopathy without gangrene (principal); I25.10 Atherosclerotic heart disease of native coronary artery without angina pectoris; E87.1 Hypo-osmolality and hyponatremia; I70.293 Other atherosclerosis of native arteries of extremities, bilateral legs
CPT/HCPCS: 36415; 80048; 83036

== ENCOUNTER 2023-05-10 10:50 | Day surgery (SDC) | payer MEDICARE, BC, SELFPAY ==
[2023-05-10 12:13] VITALS: BP 125/60; PULSE 55; RESP 16; TEMP 36.6; O2SAT 96
[2023-05-10] MEDS: Tropicam./Phenyleph. (1/2.5%) 5 ML BTL OS ×3 (12:34→12:50)
--- NOTE | 2023-05-10 13:04 | ANES.PREOP_ITS ---
General Info Date of Service Date Performed: 05/10/23 Height: 70 ft 7.2 in Weight: 70.6 kg Body Mass Index (BMI): 0.1 Surgical Procedure: Operation Date: 05/10/23 15:10 Proposed Procedure Side Surgeon p Cataract Extraction with IOL Implant Left David Camacho MD Meds Allergies and Home Medications Allergies Allergy/AdvReac Type Severity Reaction Status Date / Time No Known Allergies Allergy Verified 05/08/23 15:26 Home Medication Medication Instructions Recorded lancets 28 gauge #100 ea 01/17/15 acetaminophen 325 mg tablet 2 tab PO bid prn 06/22/15 (Tylenol) magnesium oxide 250 mg PO DAILY 04/11/16 pen needle, diabetic 32 gauge x ##120 01/15/20 (BD Ultra-Fine Isabell Pen Needle) blood sugar diagnostic (OneTouch #300 ea 09/16/20 Ultra Blue Test Strip) insulin aspart U-100 100 unit/mL 5 unit (0.05 mL) subcut BID #15 mL 04/06/22 (3 mL) subcutaneous pen (Novolog FlexPen U-100 Insulin aspart) amlodipine 10 mg tablet 10 mg PO DAILY #90 tabs 08/27/22 empagliflozin 25 mg tablet 25 mg PO QAM #90 tabs 08/28/22 (Jardiance) fenofibrate 54 mg tablet 54 mg PO DAILY #90 tabs 08/28/22 lisinopril 30 mg tablet 30 mg PO DAILY #90 tabs 08/28/22 sertraline 50 mg tablet 50 mg PO DAILY #90 tab-caps 08/28/22 isosorbide mononitrate 30 mg 30 mg PO DAILY #90 tab-caps 09/15/22 tablet,extended release 24 hr hydrochlorothiazide 12.5 mg tablet 12.5 mg PO DAILY #90 tab-caps 10/01/22 atorvastatin 40 mg tablet 40 mg PO QHS 90 days #90 tabs 10/25/22 metoprolol succinate 25 mg 25 mg PO DAILY #90 tabs 10/25/22 tablet,extended release 24 hr nitroglycerin 0.4 mg sublingual 0.4 mg sublingual q 5 mins PRN 10/25/22 tablet (Nitrostat) chest pain #25 tabs sertraline 25 mg tablet 25 mg PO DAILY #90 tab-caps 10/25/22 trazodone 50 mg tablet 50 - 100 mg (1 - 2 x 50 mg) PO HS 10/25/22 #90 tabs clopidogrel 75 mg tablet (Plavix) 75 mg PO QAM #90 tabs 11/12/22 pantoprazole 40 mg tablet,delayed 40 mg PO BID #90 tab-caps 01/30/23 release gabapentin 600 mg tablet 600 mg PO BID #180 tabs 04/24/23 insulin glargine 100 unit/mL (3 24 - 30 unit (0.24 - 0.3 mL) 04/24/23 mL) subcutaneous pen (Basaglar subcut HS #15 mL KwikPen U-100 Insulin) Current Visit Medications: Current Medications Generic Name Dose Route Start Last Admin Trade Name Freq PRN Reason Stop Dose Admin Acetaminophen 1,000 mg 05/10/23 06:00 Acetaminophen 500 Mg Tab PO 06/09/23 05:59 Q4H PRN PRN Balanced Salt Solution 500 ml 05/10/23 06:00 Balanced Salt Soln.-Plus 500 Ml Bag OP 06/09/23 05:59 DIRECTED [facility] Miscellaneous Medication 0 ml 05/10/23 06:00 Prednisolone 1%, Moxifloxacin 0.5%, Nepafenac 0.1% 5ml Btl OS 06/09/23 05:59 DIRECTED MICHAEL Miscellaneous Medication 0 ml 05/10/23 06:00 05/10/23 12:50 Tropicam./Phenyleph. 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 Elevated bilirubin R17 Conductive hearing loss, external ear H90.2 Impacted cerumen, left ear H61.22 Plugged feeling in ear H93.8X9 Pressure ulcer L89.90 Mitral regurgitation I34.0 CAD (coronary artery disease) I25.10 Diabetes mellitus E11.9 History of intravascular stent placement Z95.828 History of surgical procedure 07/24/15 Z98.890 Status post cardiac catheterization Z98.890 Localized superficial swelling, mass, or lump R22.9 Cardiac LV ejection fraction >40% 06/21/16 R94.30 Hypertension 12/14/14 I10 Hyperlipidemia 12/14/14 E78.5 Diabetic retinopathy E11.319 Coronary arteriosclerosis after percutaneous transluminal coronary angioplasty (PTCA) T81.89XA, I25.10 Hyperlipidemia associated with type 2 diabetes mellitus E11.69, E78.5 Anemia D64.9 Peripheral angiopathy due to secondary diabetes E13.51 Wound, open, groin, complicated S31.109A Acute systolic (congestive) heart failure I50.21 Diabetes mellitus type 2, uncontrolled, with complications E11.8, E11.65 Acute myocardial infarction I21.3 Poorly controlled type 2 diabetes mellitus E11.65 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 Diabetic leg ulcer E11.622, L97.909 Surgical History Surgical History Stent placement x1 2016 CARDIAC CATH 2 LEG SURGERIES Tobacco Smoking/Tobacco Use Status: Never Passive smoking exposure: Yes Second hand exposure: Yes Alcohol Alcohol Intake: former Substance Use Substance use type: former substance user Vital Signs and Lab Results Vital Signs Most Recent Vital Signs in EMR: Most Recent Vital Signs Temp Pulse Resp BP Pulse Ox 36.6 C 55 L 16 125/60 96 05/10/23 12:13 05/10/23 12:13 05/10/23 12:13 05/10/23 12:13 05/10/23 12:13 Point of Care Results Point of Care Results: Finger Stick Blood Glucose 140 05/10/23 12:22 Lab Results Blood Type / Crossmatch: No Data to Display Complete Blood Count: No Data to Display Complete Metabolic Panel: Hemoglobin A1c 7.8 % (4.5-5.7) H 04/24/23 10:52 Liver Function Panel: No Data to Display Coagulation Panel: No Data to Display Cardiac Panel: No Data to Display Arterial Blood Gas: No Data to Display Venous Blood Gas: 2 No Data to Display Pancreas Panel: No Data to Display Thyroid Panel: No Data to Display Infectious Disease: No Data to Display Blood Cultures: No Data to Display Toxicology Panel: No Data to Display Anesthesia Assessment and Plan Anesthesia History Personal History: No History of Anesthesia Complications Family History: No Family History of Anesthesia Complications Implantable Cardiac Device Does patient have a Pacemaker or an ICD?: No
--- NOTE | 2023-05-10 13:08 | ANES.PREOP_ITS ---
General Info Date of Service Date Performed: 05/10/23 Height: 5 ft Weight: 70.6 kg Body Mass Index (BMI): 30.4 Surgical Procedure: Operation Date: 05/10/23 15:10 Proposed Procedure Side Surgeon p Cataract Extraction with IOL Implant Left David Camacho MD Meds Allergies and Home Medications Allergies Allergy/AdvReac Type Severity Reaction Status Date / Time No Known Allergies Allergy Verified 05/08/23 15:26 Home Medication Medication Instructions Recorded lancets 28 gauge #100 ea 01/17/15 acetaminophen 325 mg tablet 2 tab PO bid prn 06/22/15 (Tylenol) magnesium oxide 250 mg PO DAILY 04/11/16 pen needle, diabetic 32 gauge x ##120 01/15/20 (BD Ultra-Fine Isabell Pen Needle) blood sugar diagnostic (OneTouch #300 ea 09/16/20 Ultra Blue Test Strip) insulin aspart U-100 100 unit/mL 5 unit (0.05 mL) subcut BID #15 mL 04/06/22 (3 mL) subcutaneous pen (Novolog FlexPen U-100 Insulin aspart) amlodipine 10 mg tablet 10 mg PO DAILY #90 tabs 08/27/22 empagliflozin 25 mg tablet 25 mg PO QAM #90 tabs 08/28/22 (Jardiance) fenofibrate 54 mg tablet 54 mg PO DAILY #90 tabs 08/28/22 lisinopril 30 mg tablet 30 mg PO DAILY #90 tabs 08/28/22 sertraline 50 mg tablet 50 mg PO DAILY #90 tab-caps 08/28/22 isosorbide mononitrate 30 mg 30 mg PO DAILY #90 tab-caps 09/15/22 tablet,extended release 24 hr hydrochlorothiazide 12.5 mg tablet 12.5 mg PO DAILY #90 tab-caps 10/01/22 atorvastatin 40 mg tablet 40 mg PO QHS 90 days #90 tabs 10/25/22 metoprolol succinate 25 mg 25 mg PO DAILY #90 tabs 10/25/22 tablet,extended release 24 hr nitroglycerin 0.4 mg sublingual 0.4 mg sublingual q 5 mins PRN 10/25/22 tablet (Nitrostat) chest pain #25 tabs sertraline 25 mg tablet 25 mg PO DAILY #90 tab-caps 10/25/22 trazodone 50 mg tablet 50 - 100 mg (1 - 2 x 50 mg) PO HS 10/25/22 #90 tabs clopidogrel 75 mg tablet (Plavix) 75 mg PO QAM #90 tabs 11/12/22 pantoprazole 40 mg tablet,delayed 40 mg PO BID #90 tab-caps 01/30/23 release gabapentin 600 mg tablet 600 mg PO BID #180 tabs 04/24/23 insulin glargine 100 unit/mL (3 24 - 30 unit (0.24 - 0.3 mL) 04/24/23 mL) subcutaneous pen (Basaglar subcut HS #15 mL KwikPen U-100 Insulin) Current Visit Medications: Current Medications Generic Name Dose Route Start Last Admin Trade Name Freq PRN Reason Stop Dose Admin Acetaminophen 1,000 mg 05/10/23 06:00 Acetaminophen 500 Mg Tab PO 06/09/23 05:59 Q4H PRN PRN Balanced Salt Solution 500 ml 05/10/23 06:00 Balanced Salt Soln.-Plus 500 Ml Bag OP 06/09/23 05:59 DIRECTED MICHAEL Miscellaneous Medication 0 ml 05/10/23 06:00 Prednisolone 1%, Moxifloxacin 0.5%, Nepafenac 0.1% 5ml Btl OS 06/09/23 05:59 DIRECTED MICHAEL Miscellaneous Medication 0 ml 05/10/23 06:00 05/10/23 12:50 Tropicam./Phenyleph. 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 Elevated bilirubin R17 Conductive hearing loss, external ear H90.2 Impacted cerumen, left ear H61.22 Plugged feeling in ear H93.8X9 Pressure ulcer L89.90 Mitral regurgitation I34.0 CAD (coronary artery disease) I25.10 Diabetes mellitus E11.9 History of intravascular stent placement Z95.828 History of surgical procedure 07/24/15 Z98.890 Status post cardiac catheterization Z98.890 Localized superficial swelling, mass, or lump R22.9 Cardiac LV ejection fraction >40% 06/21/16 R94.30 Hypertension 12/14/14 I10 Hyperlipidemia 12/14/14 E78.5 Diabetic retinopathy E11.319 Coronary arteriosclerosis after percutaneous transluminal coronary angioplasty (PTCA) T81.89XA, I25.10 Hyperlipidemia associated with type 2 diabetes mellitus E11.69, E78.5 Anemia D64.9 Peripheral angiopathy due to secondary diabetes E13.51 Wound, open, groin, complicated S31.109A Acute systolic (congestive) heart failure I50.21 Diabetes mellitus type 2, uncontrolled, with complications E11.8, E11.65 Acute myocardial infarction I21.3 Poorly controlled type 2 diabetes mellitus E11.65 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 Diabetic leg ulcer E11.622, L97.909 Surgical History Surgical History Stent placement x1 2016 CARDIAC CATH 2 LEG SURGERIES Tobacco Smoking/Tobacco Use Status: Never Passive smoking exposure: Yes Second hand exposure: Yes Alcohol Alcohol Intake: former Substance Use Substance use type: former substance user and marijuana Vital Signs and Lab Results Vital Signs Most Recent Vital Signs in EMR: Most Recent Vital Signs Temp Pulse Resp BP Pulse Ox 36.6 C 55 L 16 125/60 96 05/10/23 12:13 05/10/23 12:13 05/10/23 12:13 05/10/23 12:13 05/10/23 12:13 Point of Care Results Point of Care Results: Finger Stick Blood Glucose 140 05/10/23 12:22 Lab Results Blood Type / Crossmatch: No Data to Display Complete Blood Count: No Data to Display Complete Metabolic Panel: Hemoglobin A1c 7.8 % (4.5-5.7) H 04/24/23 10:52 Liver Function Panel: No Data to Display Coagulation Panel: No Data to Display Cardiac Panel: No Data to Display Arterial Blood Gas: No Data to Display Venous Blood Gas: No Data to Display Pancreas Panel: No Data to Display Thyroid Panel: No Data to Display Infectious Disease: No Data to Display Blood Cultures: No Data to Display Toxicology Panel: No Data to Display Imaging and Studies Imaging and Studies Study information below may be from another EMR and interpreted by another provider. Please see original notes in EMR for more complete details. EKG Summary: 12/20/2021: Exam: Resting ECG Reason for Exam: chest pain Patient Location: E HR:60 bpm ECG Measurements Heart Rate 60 AXIS [place] 185 P 57 QRSd 87 QRS 0 QT 430 T35 QTc 428 Conclusion Sinus rhythm...normal P axis, V-rate 60- 99 I have reviewed and I agree with the emergency room physician's ECG inter pretation. Echocardiogram Summary: 09/24/19: Conclusion Left Ventricle : The left ventricle is normal size. The left ventricular systolic function is normal. The left ventricular ejection fraction is within the normal range. There is normal left ventricular wall thickness. There is normal LV segmental wall motion. There is evidence of impaired relaxation. LVEF is 55-60%. Right Ventricle : The right ventricle is normal size. The right ventricular systolic function is normal. Atria : The left atrium size is normal. The right atrium size is normal. Aortic Valve : The Aortic valve is sclerotic. Aortic valve is trileaflet. There is no aortic valvular stenosis. Trace to mild aortic regurgitation. Mitral Valve : The mitral valve is normal in structure. Moderate mitral regurgitation. Mitral regurgitation jet is eccentrically directed. No evidence of mitral valve stenosis. Tricuspid Valve : The tricuspid valve is normal in structure. Trace to mild tricuspid regurgitation. There is no tricuspid valve stenosis. Great Vessels : IVC is normal in size and collapses >50% with inspiration. The RVSP is 22.2 mmHg. Compared to echocardiogram dated 08/04/2018: Mitral regurgitation is still moderate, estimated RVSP has decreased to 22 mmHg. Carotid Artery Summary:: 06/15/16: Exam(s) [id number] US:Carotid SYMPTOMS/DIAGNOSIS: LT BRUIT OF CAROTID ARTERY, R09.89 BILATERAL DUPLEX CAROTID ULTRASOUND: Duplex evaluation of the carotid circulation was performed according to the usual protocol. There is prominent soft and calcified plaque visible in common, internal and external carotid arteries bilaterally. Flow velocities in the right common, internal and external carotid arteries are within normal limits. On the left there is flow velocity elevation to 280 cm per second systolic in the proximal internal carotid artery consistent with stenosis of greater than 70% at this site. There is bilateral antegrade vertebral flow. CONCLUSION: Findings consistent with stenosis of greater than 70% luminal diameter in the proximal left internal carotid artery. Anesthesia Assessment and Plan Anesthesia History Personal History: No History of Anesthesia Complications Family History: No Family History of Anesthesia Complications Exercise Tolerance Exercise Tolerance: Metabolic Equivalents>4 Pertinent Negatives Pertinent Negatives: No Symptoms of GERD, No Major Cardiovascular Symptoms or Complaints and No Major Pulmonary Symptoms or Complaints Cardiac & Pulmonary Exam Cardiac Exam: Normal S1/S2 Heart Sounds Pulmonary Exam: Clear Bilateral Breath Sounds Implantable Cardiac Device Does patient have a Pacemaker or an ICD?: No Airway Exam Known Difficult Airway: No Mallampati Class: 3 Mouth Opening: Normal (> 3cm) Thyromental Distance: Greater than 3 cm Neck Range of Motion: Full ROM Neck Circumference: Normal Teeth Condition: Generalized Poor Dentition ASA Classification ASA Score: ASA 3 Emergency Case?: No NPO Status NPO Status: NPO Clears >2 hours, Solids >8 hours Anesthesia Plan Resuscitation Status: Full Code Anesthesia Technique: MAC Anesthesia Airway Planned: Natural Airway Monitors Used: Standard Monitors
[2023-05-10 13:12] VITALS: BMI 30.4
[2023-05-10] MEDS: Tetracaine 0.5% 4 ML BTL OS (13:21)
[2023-05-10] MEDS: Balanced Salt Soln.-PLUS 500 ML BAG OP (13:21)
[2023-05-10] MEDS: Lidocaine 1% Pres-Free 5 ML VIAL (13:34)
[2023-05-10] MEDS: Duovisc Viscoelastic System EACH 1 EACH (13:34)
[2023-05-10] MEDS: Phenylephrine/Lidocaine (15/10) MG/ML 1 ML VIAL (13:35)
[2023-05-10] MEDS: Povidone-Iodine Ophth 30 ML BTL (13:35)
--- NOTE | 2023-05-10 13:47 | W.PM.DSUDISC ---
Date of service: 05/10/23 Time of Service: 13:47 Discharge Plan Disposition Patient Disposition: Home Discharge Details Attending Provider: David Camacho Primary Care Provider: Gordy Gregg. Home Meds and New Rx's Prescriptions: No Action (DME) pen needle, diabetic [BD Ultra-Fine Isabell Pen Needle] 32 gauge x 5/32 needle 1 ea Miscellaneous QID Qty: 120 11RF Rx Instructions: check sugar BID (DME) OneTouch Ultra Blue Test Strip Strip See Dose Instructions .ROUTE .MEDSUPPLY Qty: 300 3RF Dose Instruction: test daily Rx Instructions: test TID atorvastatin 40 mg tablet 40 mg PO QHS 90 Days Qty: 90 4RF metoprolol succinate 25 mg tablet extended release 24 hr 25 mg PO DAILY Qty: 90 3RF sertraline 25 mg tablet 25 mg PO DAILY Qty: 90 3RF Rx Instructions: take w/ 50 mg tab to equal 75 mg/day trazodone 50 mg tablet 50 - 100 mg PO HS Qty: 90 4RF nitroglycerin [Nitrostat] 0.4 mg tablet, sublingual 0.4 mg Sublingual q 5 mins PRN (Reason: chest pain) Qty: 25 0RF Rx Instructions: go to ED if no relief after 3 doses gabapentin 600 mg tablet 600 mg PO BID Qty: 180 3RF insulin glargine [Basaglar KwikPen U-100 Insulin] 100 unit/mL (3 mL) insulin pen 24 - 30 unit subcut HS Qty: 15 6RF (DME) lancets 1 EACH misc 1 ea Miscellaneous DAILY Qty: 100 Rx Instructions: FOR ONE TOUCH ULTRA MINI METER. NO INSULIN. DIAGNOSIS CODE 250.02 acetaminophen [Tylenol] 325 MG tablet 2 tab PO bid prn magnesium oxide 250 MG tablet 250 mg PO DAILY insulin aspart U-100 [Novolog FlexPen U-100 Insulin] 100 unit/mL (3 mL) insulin pen 5 unit Sub-Q BID Qty: 15 6RF amlodipine 10 mg tablet 10 mg PO DAILY Qty: 90 3RF Jardiance 25 mg tablet 25 mg PO QAM Qty: 90 3RF fenofibrate 54 mg tablet 54 mg PO DAILY Qty: 90 3RF sertraline 50 mg tablet 50 mg PO DAILY Qty: 90 3RF lisinopril 30 mg tablet 30 mg PO DAILY Qty: 90 3RF isosorbide mononitrate 30 mg tablet extended release 24 hr 30 mg PO DAILY Qty: 90 3RF hydrochlorothiazide 12.5 mg tablet 12.5 mg PO DAILY Qty: 90 3RF clopidogrel [Plavix] 75 mg tablet 75 mg PO QAM Qty: 90 3RF pantoprazole 40 mg tablet,delayed release (DR/EC) 40 mg PO BID Qty: 90 3RF Rx Instructions: dose increase 06/21/22 Discharge Instructions Stand Alone Forms: Post-op Topical Cataract, Jesus Qureshi (DSU) Discharge Orders Discharge Orders: Discharge Order (Routine); Ordered 05/10/23 Ordered By: David Camacho DS: Diagnosis Discharge Diagnosis (1) Posterior subcapsular age-related cataract of left eye: Status: Resolved (2) Cortical age-related cataract, left eye: Status: Resolved (3) Nuclear age-related cataract, left eye: Status: Resolved
--- NOTE | 2023-05-10 13:48 | W.PM.OP ---
Date of service: 05/10/23 Time of Service: 13:48 Operative Note Operative Note DATE OF PROCEDURE: 05/10/23 PRE-OP DIAGNOSIS: Nuclear/cortical/posterior subcapsular cataract, left eye POST-OP DIAGNOSIS: same PROCEDURE: Cataract extraction using phacoemulsification with intraocular lens implant, left eye SURGEON: David Camacho ANESTHESIA TYPE: Local By Surgeon and MAC Refer to Anesthesia Record PATHOLOGY: none sent COMPLICATIONS: None Patient was transported to: same day Patient's condition: stable Implants: Demetris Clareon [id number] Indications: Progressive decreased vision due to cataract, left eye Procedure Description: CATARACT SURGERY OPERATIVE REPORT PREOPERATIVE DIAGNOSIS: Nuclear/cortical/posterior subcapsular cataract, left eye POSTOPERATIVE DIAGNOSIS: Same OPERATION: Cataract extraction using phacoemulsification with posterior chamber intraocular lens implant, left eye. IOL: IOL Hogshead Press Operator/Model: Demetris Clareon [id number] IOL Power: + 12.0 diopters IOL Serial Number: [id number] Optic Diameter: 6.0mm Haptic/Overall Diameter: 13.0mm PHACO INFO: Demetris Zoomoramaurion Vision System with OZil and Active Fluidics Cumulative Dispersed Energy (CDE): 9.31 seconds SURGEON: David Camacho MD, TIMOTHY ANESTHESIA: Monitored Anesthesia Care (MAC), with local sub-tenon's anesthetic infiltration COMPLICATIONS: None SPECIMENS: None INDICATIONS FOR PROCEDURE: The patient is a 72-year-old lady with history of diminished visual acuity in her left eye secondary to the development of nuclear/cortical/posterior subcapsular cataract. She is significantly symptomatic that she desires cataract surgery and attempt to improve andmaximize her vision. See office notes for detailed information. PROCEDURE: The correct surgical eye was identified and marked as the left eye and the pupil was dilated in the preoperative area using mydriatics and cycloplegics. The dilated pupil size was 8.0 mm. The patient elected to proceed without oral sedation. The patient was brought to the operating room where cardiopulmonary monitoring was instituted and surgical time-out was performed, confirming the correct operative eye and IOL power. Topical anesthesia was administered and ophthalmic povidone-iodine 5% was instilled into the conjunctival fornices. The ed-ocular area was prepped with Betadine 10% solution and draped in the usual sterile fashion for intraocular surgery, including an aperture drape. A Tegaderm transparent film dressing was cut in half and used to cover the lashes and lid margins. Care was taken to sequester the lashes and lid margins under the Tegaderm dressing. A lid speculum was placed between the lids of the operative eye and the Demetris LuxOR Revalia operating microscope was maneuvered into position. Deidre scissors were then used to make a conjunctival buttonhole approximately 6mm posterior to the limbus in the inferonasal quadrant. Blunt dissection was carried out to expose bare sclera, and a blunt-tipped sub-tenon?s anesthesia cannula was introduced and passed posteriorly along the globe where non-preserved plain lidocaine was injected into posterior sub-Tenon?s space. A sideport knife was used to make a paracentesis port. Intraocular phenylephrine/lidocaine was injected into the anterior chamber. The anterior chamber was then filled with viscoelastic. A keratome knife was used construct a two-plane clear corneal tunnel extending 2.0mm into clear cornea. A flap was raised on the anterior capsule and capsulorhexis forceps were used to complete a continuous curvilinear capsulorhexis of 4.8 mm. Balanced salt solution was then used to perform cortical cleaving hydrodissection and nuclear hydrodelineation until the lens could be freely rotated within the capsular bag. The lens nucleus was then disassembled and removed within the capsular bag and iris plane using phacoemulsification. Residual cortical material was removed using the irrigation/aspiration handpiece. The posterior capsule was carefully polished to remove as much residual lens epithelial cells as safely possible. The capsular bag was then inflated and the anterior chamber deepened with viscoelastic. The lens implant described above was inserted into the capsular bag using the Demetris Autonome Injector. A Kuglen hook was used to dial the IOL into position. Residual viscoelastic was then removed first from posterior to the IOL, then from the anterior chamber using the I/A handpiece. The lens implant was noted to center nicely within the capsular bag. The incisions were stromally hydrated, and the anterior chamber was reformed using BSS. Then 0.5cc of moxifloxacin 1.0mg/ml were injected into the capsular bag and anterior chamber. The incisions were checked with a Weck spear and found to be secure. Several drops of ophthalmic povidone-iodine 5% were then applied to the eye followed by two drops of Imprimis combination prednisolone/moxifloxacin/nepafenac solution. The drapes were removed and a clear plastic protective eye shield was placed over the eye. The patient was then returned to Same Day Surgery in stable condition.
[2023-05-10 13:49] VITALS: BP 124/66; PULSE 55; RESP 16; TEMP 36.7; O2SAT 97
--- NOTE | 2023-05-10 14:11 | W.ANESPOSTOP ---
Postoperative Evaluation Date, Time and Location Date Performed: 05/10/23 Time Performed: 13:18 Patient Location: Day Surgery Unit Vital Signs Most Recent Imported Vital Signs: Most Recent Vital Signs Temp Pulse Resp BP Pulse Ox 36.7 C 55 L 16 124/66 97 05/10/23 13:49 05/10/23 13:49 05/10/23 13:49 05/10/23 13:49 05/10/23 13:49 Pain Score Most Recent Pain Score: Most Recent Pain Score Pain Level 0 05/10/23 13:49 Assessment Mental Status: Awake (Alert & Oriented to Patient Baseline) Airway and Respiratory Function: Patent airway with normal (patient baseline) respiratory exam Cardiovascular Function: Hemodynamically Stable Hydration Status: Adequately Hydrated Nausea & Vomiting: No Nausea or Vomiting Pain: Pt. Denies Any Pain Peripheral Nerve Block: Patient did not receive a nerve block
== END 2023-05-10 14:26 | disposition home or self-care (01) ==
LOC: SUR 10:50
PROVIDERS: PCP Family Medicine; Visit Provider Ophthalmology
PROC: (CPT 66984; principal; 2023-05-10 15:00)
DX: H25.042 Posterior subcapsular polar age-related cataract, left eye (principal); H25.012 Cortical age-related cataract, left eye; H25.12 Age-related nuclear cataract, left eye; I10 Essential (primary) hypertension; I50.21 Acute systolic (congestive) heart failure
CPT/HCPCS: 66984; 00123; V2632

== ENCOUNTER 2023-05-24 06:16 | Day surgery (SDC) | payer MEDICARE, BC, SELFPAY ==
[2023-05-24 06:25] VITALS: BP 110/59; PULSE 54; RESP 18; TEMP 36.2; O2SAT 94
[2023-05-24] MEDS: Tropicam./Phenyleph. (1/2.5%) 5 ML BTL OD ×3 (06:38→06:47)
--- NOTE | 2023-05-24 07:16 | W.ANESPRE ---
General Info Date of Service Date Performed: 05/24/23 Height: 5 ft Weight: 72 kg Body Mass Index (BMI): 30.9 Surgical Procedure: Operation Date: 05/24/23 07:40 Proposed Procedure Side Surgeon p Cataract Extraction with IOL Implant Right David Camacho MD Actual Procedure Side Surgeon p Cataract Extraction with IOL Implant Right David Camacho MD Pre-Op Diagnosis Post-Op Diagnosis RT CATARACT RT CATARACT WITH IMPLANT OF LENS. Meds Allergies and Home Medications Allergies Allergy/AdvReac Type Severity Reaction Status Date / Time No Known Allergies Allergy Verified 05/24/23 06:33 Home Medication Medication Instructions Recorded lancets 28 gauge #100 ea 01/17/15 acetaminophen 325 mg tablet 2 tab PO bid prn 06/22/15 (Tylenol) magnesium oxide 250 mg PO DAILY 04/11/16 pen needle, diabetic 32 gauge x ##120 01/15/20 (BD Ultra-Fine Isabell Pen Needle) blood sugar diagnostic (OneTouch #300 ea 09/16/20 Ultra Blue Test Strip) amlodipine 10 mg tablet 10 mg PO DAILY #90 tabs 08/27/22 empagliflozin 25 mg tablet 25 mg PO QAM #90 tabs 08/28/22 (Jardiance) fenofibrate 54 mg tablet 54 mg PO DAILY #90 tabs 08/28/22 lisinopril 30 mg tablet 30 mg PO DAILY #90 tabs 08/28/22 sertraline 50 mg tablet 50 mg PO DAILY #90 tab-caps 08/28/22 isosorbide mononitrate 30 mg 30 mg PO DAILY #90 tab-caps 09/15/22 tablet,extended release 24 hr hydrochlorothiazide 12.5 mg tablet 12.5 mg PO DAILY #90 tab-caps 10/01/22 atorvastatin 40 mg tablet 40 mg PO QHS 90 days #90 tabs 10/25/22 metoprolol succinate 25 mg 25 mg PO DAILY #90 tabs 10/25/22 tablet,extended release 24 hr nitroglycerin 0.4 mg sublingual 0.4 mg sublingual q 5 mins PRN 10/25/22 tablet (Nitrostat) chest pain #25 tabs sertraline 25 mg tablet 25 mg PO DAILY #90 tab-caps 10/25/22 trazodone 50 mg tablet 50 - 100 mg (1 - 2 x 50 mg) PO HS 10/25/22 #90 tabs clopidogrel 75 mg tablet (Plavix) 75 mg PO QAM #90 tabs 11/12/22 pantoprazole 40 mg tablet,delayed 40 mg PO BID #90 tab-caps 01/30/23 release gabapentin 600 mg tablet 600 mg PO BID #180 tabs 04/24/23 insulin glargine 100 unit/mL (3 24 - 30 unit (0.24 - 0.3 mL) 04/24/23 mL) subcutaneous pen (Basaglar subcut HS #15 mL KwikPen U-100 Insulin) insulin aspart 5 unit subcut BID #15 mL 05/23/23 (niacinamide)(U-100) 100 unit/mL (3 mL) subcu cartridge (Fiasp Penfill U-100 Insulin) Current Visit Medications: Current Medications Generic Name Dose Route Start Last Admin Trade Name Freq PRN Reason Stop Dose Admin Acetaminophen 1,000 mg 05/24/23 06:00 Acetaminophen 500 Mg Tab PO 06/23/23 05:59 Q4H PRN PRN Balanced Salt Solution 500 ml 05/24/23 06:00 Balanced Salt Soln.-Plus 500 Ml Bag OP 06/23/23 05:59 DIRECTED [facility] Miscellaneous Medication 0 ml 05/24/23 06:00 05/24/23 06:47 Tropicam./Phenyleph. (1/2.5%) 5 Ml Btl OD 06/23/23 05:59 1 drp DIRECTED [facility] Administration Miscellaneous Medication 0 ml 05/24/23 06:00 Prednisolone 1%, Moxifloxacin 0.5%, Nepafenac 0.1% 5ml Btl OD 06/23/23 05:59 DIRECTED MICHAEL Tetracaine HCl 0 ml 05/24/23 06:00 Tetracaine 0.5% 4 Ml Btl OD 06/23/23 05:59 DIRECTED [facility] PFSH Active Problems Active Problems: Problem Status Onset Code Posterior subcapsular age-related cataract, right eye H25.041 Cortical age-related cataract, right eye H25.011 Nuclear age-related cataract, right eye H25.11 Posterior subcapsular age-related cataract of left eye H25.042 Cortical age-related cataract, left eye H25.012 Nuclear age-related cataract, left eye H25.12 Chronic cough R05.3 Nail dystrophy L60.3 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 Elevated bilirubin R17 Conductive hearing loss, external ear H90.2 Impacted cerumen, left ear H61.22 Plugged feeling in ear H93.8X9 Pressure ulcer L89.90 Mitral regurgitation I34.0 CAD (coronary artery disease) I25.10 Diabetes mellitus E11.9 History of intravascular stent placement Z95.828 History of surgical procedure 07/24/15 Z98.890 Status post cardiac catheterization Z98.890 Localized superficial swelling, mass, or lump R22.9 Cardiac LV ejection fraction >40% 06/21/16 R94.30 Hypertension 12/14/14 I10 Hyperlipidemia 12/14/14 E78.5 Diabetic retinopathy E11.319 Coronary arteriosclerosis after percutaneous transluminal coronary angioplasty (PTCA) T81.89XA, I25.10 Hyperlipidemia associated with type 2 diabetes mellitus E11.69, E78.5 Anemia D64.9 Peripheral angiopathy due to secondary diabetes E13.51 Wound, open, groin, complicated S31.109A Acute systolic (congestive) heart failure I50.21 Diabetes mellitus type 2, uncontrolled, with complications E11.8, E11.65 Acute myocardial infarction I21.3 Poorly controlled type 2 diabetes mellitus E11.65 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 Diabetic leg ulcer E11.622, L97.909 Surgical History Surgical History History of cataract surgery Stent placement x1 2016 CARDIAC CATH 2 LEG SURGERIES Tobacco Smoking/Tobacco Use Status: Never Passive smoking exposure: Yes Second hand exposure: Yes Alcohol Alcohol Intake: former Substance Use Substance use type: former substance user and marijuana Vital Signs and Lab Results Vital Signs Most Recent Vital Signs in EMR: Most Recent Vital Signs Temp Pulse Resp BP Pulse Ox 36.2 C L 54 L 18 110/59 L 94 05/24/23 06:25 05/24/23 06:25 05/24/23 06:25 05/24/23 06:25 05/24/23 06:25 Point of Care Results Point of Care Results: Finger Stick Blood Glucose 158 05/24/23 06:27 Lab Results Blood Type / Crossmatch: No Data to Display Complete Blood Count: No Data to Display Complete Metabolic Panel: Hemoglobin A1c 7.8 % (4.5-5.7) H 04/24/23 10:52 Liver Function Panel: No Data to Display Coagulation Panel: No Data to Display Cardiac Panel: No Data to Display Arterial Blood Gas: No Data to Display Venous Blood Gas: No Data to Display Pancreas Panel: No Data to Display Thyroid Panel: No Data to Display Infectious Disease: No Data to Display Blood Cultures: No Data to Display Toxicology Panel: No Data to Display Imaging and Studies Imaging and Studies Study information below may be from another EMR and interpreted by another provider. Please see original notes in EMR for more complete details. EKG Summary: 12/20/2021: Exam: Resting ECG Reason for Exam: chest pain Patient Location: E HR:60 bpm ECG Measurements Heart Rate 60 AXIS CO 185 P 57 QRSd 87 QRS 0 QT 430 T35 QTc 428 Conclusion Sinus rhythm...normal P axis, V-rate 60- 99 I have reviewed and I agree with the emergency room physician's ECG interpretation. Echocardiogram Summary: 09/24/19: Conclusion Left Ventricle : The left ventricle is normal size. The left ventricular systolic function is normal. The left ventricular ejection fraction is within the normal range. There is normal left ventricular wall thickness. There is normal LV segmental wall motion. There is evidence of impaired relaxation. LVEF is 55-60%. Right Ventricle : The right ventricle is normal size. The right ventricular systolic function is normal. Atria : The left atrium size is normal. The right atrium size is normal. Aortic Valve : The Aortic valve is sclerotic. Aortic valve is trileaflet. There is no aortic valvular stenosis. Trace to mild aortic regurgitation. Mitral Valve : The mitral valve is normal in structure. Moderate mitral regurgitation. Mitral regurgitation jet is eccentrically directed. No evidence of mitral valve stenosis. Tricuspid Valve : The tricuspid valve is normal in structure. Trace to mild tricuspid regurgitation. There is no tricuspid valve stenosis. Great Vessels : IVC is normal in size and collapses >50% with inspiration. The RVSP is 22.2 mmHg. Compared to echocardiogram dated 08/04/2018: Mitral regurgitation is still moderate, estimated RVSP has decreased to 22 mmHg. Carotid Artery Summary:: 06/15/16: Exam(s) [id number] US:Carotid SYMPTOMS/DIAGNOSIS: LT BRUIT OF CAROTID ARTERY, R09.89 BILATERAL DUPLEX CAROTID ULTRASOUND: Duplex evaluation of the carotid circulation was performed according to the usual protocol. There is prominent soft and calcified plaque visible in common, internal and external carotid arteries bilaterally. Flow velocities in the right common, internal and external carotid arteries are within normal limits. On the left there is flow velocity elevation to 280 cm per second systolic in the proximal internal carotid artery consistent with stenosis of greater than 70% at this site. There is bilateral antegrade vertebral flow. CONCLUSION: Findings consistent with stenosis of greater than 70% luminal diameter in the proximal left internal carotid artery. Anesthesia Assessment and Plan Anesthesia History Personal History: No History of Anesthesia Complications Family History: No Family History of Anesthesia Complications Exercise Tolerance Exercise Tolerance: Metabolic Equivalents>4 Cardiac & Pulmonary Exam Cardiac Exam: Normal S1/S2 Heart Sounds Pulmonary Exam: Clear Bilateral Breath Sounds Implantable Cardiac Device Does patient have a Pacemaker or an ICD?: No Airway Exam Known Difficult Airway: No Mallampati Class: 3 Mouth Opening: Normal (> 3cm) Thyromental Distance: Greater than 3 cm Neck Range of Motion: Full ROM Neck Circumference: Normal Teeth Condition: Generalized Poor Dentition ASA Classification ASA Score: ASA 3 Emergency Case?: No NPO Status NPO Status: NPO Clears >2 hours, Solids >8 hours Anesthesia Plan Resuscitation Status: Full Code Anesthesia Technique: MAC Anesthesia Airway Planned: Natural Airway Monitors Used: Standard Monitors
[2023-05-24] MEDS: Lidocaine 1% Pres-Free 5 ML VIAL (07:38)
[2023-05-24] MEDS: Phenylephrine/Lidocaine (15/10) MG/ML 1 ML VIAL (07:40)
[2023-05-24 07:41] VITALS: BMI 30.9
[2023-05-24] MEDS: Povidone-Iodine Ophth 30 ML BTL (07:41)
[2023-05-24] MEDS: Duovisc Viscoelastic System EACH 1 EACH (07:42)
[2023-05-24] MEDS: Balanced Salt Soln.-PLUS 500 ML BAG OP (07:43)
[2023-05-24] MEDS: Tetracaine 0.5% 4 ML BTL OD (07:44)
--- NOTE | 2023-05-24 07:57 | W.PM.DSUDISC ---
Date of service: 05/24/23 Time of Service: 07:57 Discharge Plan Disposition Patient Disposition: Home Discharge Details Attending Provider: David Camacho Primary Care Provider: Gordy Gregg. Home Meds and New Rx's Prescriptions: No Action (DME) pen needle, diabetic [BD Ultra-Fine Isabell Pen Needle] 32 gauge x 5/32 needle 1 ea Miscellaneous QID Qty: 120 11RF Rx Instructions: check sugar BID (DME) OneTouch Ultra Blue Test Strip Strip See Dose Instructions .ROUTE .MEDSUPPLY Qty: 300 3RF Dose Instruction: test daily Rx Instructions: test TID atorvastatin 40 mg tablet 40 mg PO QHS 90 Days Qty: 90 4RF metoprolol succinate 25 mg tablet extended release 24 hr 25 mg PO DAILY Qty: 90 3RF sertraline 25 mg tablet 25 mg PO DAILY Qty: 90 3RF Rx Instructions: take w/ 50 mg tab to equal 75 mg/day trazodone 50 mg tablet 50 - 100 mg PO HS Qty: 90 4RF nitroglycerin [Nitrostat] 0.4 mg tablet, sublingual 0.4 mg Sublingual q 5 mins PRN (Reason: chest pain) Qty: 25 0RF Rx Instructions: go to ED if no relief after 3 doses gabapentin 600 mg tablet 600 mg PO BID Qty: 180 3RF insulin glargine [Basaglar KwikPen U-100 Insulin] 100 unit/mL (3 mL) insulin pen 24 - 30 unit subcut HS Qty: 15 6RF (DME) lancets 1 EACH misc 1 ea Miscellaneous DAILY Qty: 100 Rx Instructions: FOR ONE TOUCH ULTRA MINI METER. NO INSULIN. DIAGNOSIS CODE 250.02 acetaminophen [Tylenol] 325 MG tablet 2 tab PO bid prn magnesium oxide 250 MG tablet 250 mg PO DAILY amlodipine 10 mg tablet 10 mg PO DAILY Qty: 90 3RF Jardiance 25 mg tablet 25 mg PO QAM Qty: 90 3RF fenofibrate 54 mg tablet 54 mg PO DAILY Qty: 90 3RF sertraline 50 mg tablet 50 mg PO DAILY Qty: 90 3RF lisinopril 30 mg tablet 30 mg PO DAILY Qty: 90 3RF isosorbide mononitrate 30 mg tablet extended release 24 hr 30 mg PO DAILY Qty: 90 3RF hydrochlorothiazide 12.5 mg tablet 12.5 mg PO DAILY Qty: 90 3RF clopidogrel [Plavix] 75 mg tablet 75 mg PO QAM Qty: 90 3RF pantoprazole 40 mg tablet,delayed release (DR/EC) 40 mg PO BID Qty: 90 3RF Rx Instructions: dose increase 06/21/22 Fiasp Penfill U-100 Insulin 100 unit/mL (3 mL) cartridge 5 unit subcut BID Qty: 15 3RF Discharge Instructions Stand Alone Forms: Post-op Topical Cataract, Jesus Qureshi (DSU) Discharge Orders Discharge Orders: Discharge Order (Routine); Ordered 05/24/23 Ordered By: David Camacho DS: Diagnosis Discharge Diagnosis (1) Posterior subcapsular age-related cataract, right eye: Status: Resolved (2) Cortical age-related cataract, right eye: Status: Resolved (3) Nuclear age-related cataract, right eye: Status: Resolved
--- NOTE | 2023-05-24 07:58 | ROE_ITS ---
Date of service: 05/24/23 Time of Service: 07:59 Operative Note Operative Note DATE OF PROCEDURE: 05/24/23 PRE-OP DIAGNOSIS: Nuclear/cortical/posterior subcapsular cataract, right eye POST-OP DIAGNOSIS: same PROCEDURE: Cataract extraction using phacoemulsification with intraocular lens implant, right eye SURGEON: David Camacho ANESTHESIA TYPE: Local By Surgeon and MAC Refer to Anesthesia Record ESTIMATED BLOOD LOSS: 0 PATHOLOGY: none sent COMPLICATIONS: None Patient was transported to: same day Patient's condition: stable Implants: Demetris Clareon [id number] Indications: Progressive decreased vision due to cataract, right eye Procedure Description: CATARACT SURGERY OPERATIVE REPORT PREOPERATIVE DIAGNOSIS: Nuclear/cortical/posterior subcapsular cataract, right eye POSTOPERATIVE DIAGNOSIS: Same OPERATION: Cataract extraction using phacoemulsification with posterior chamber intraocular lens implant, right eye. IOL: IOL Felting Machine Operator/Model: Demetris Clareon [id number] IOL Power: + 15.5 diopters IOL Serial Number: [id number] Optic Diameter: 6.0mm Haptic/Overall Diameter: 13.0mm PHACO INFO: Demetris Fan Pierurion Vision System with OZil and Active Fluidics Cumulative Dispersed Energy (CDE): 6.31 seconds SURGEON: David Camacho MD, TIMOTHY ANESTHESIA: Monitored Anesthesia Care (MAC), with local sub-tenon's anesthetic infiltration COMPLICATIONS: None SPECIMENS: None INDICATIONS FOR PROCEDURE: The patient is a 72-year-old lady with history of myopia who has developed significant nuclear/cortical/posterior subcapsular cataract in each eye. She has already undergone cataract surgery in the left eye and is doing well postoperatively. She now presents for cataract surgery in the right eye. See office notes for detailed information. PROCEDURE: The correct surgical eye was identified and marked as the right eye and the pupil was dilated in the preoperative area using mydriatics and cycloplegics. The dilated pupil size was 7.0 mm. The patient elected to proceed without oral sedation. The patient was brought to the operating room where cardiopulmonary monitoring was instituted and surgical time-out was performed, confirming the correct operative eye and IOL power. Topical anesthesia was administered and ophthalmic povidone-iodine 5% was instilled into the conjunctival fornices. The ed-ocular area was prepped with Betadine 10% solution and draped in the usual sterile fashion for intraocular surgery, including an aperture drape. A Tegaderm transparent film dressing was cut in half and used to cover the lashes and lid margins. Care was taken to sequester the lashes and lid margins under the Tegaderm dressing. A lid speculum was placed between the lids of the operative eye and the Jameson-Olena operating microscope was maneuvered into position. Deidre scissors were then used to make a conjunctival buttonhole approximately 6mm posterior to the limbus in the inferonasal quadrant. Blunt dissection was carried out to expose bare sclera, and a blunt-tipped sub-tenon?s anesthesia cannula was introduced and passed posteriorly along the globe where non- preserved plain lidocaine was injected into posterior sub-Tenon?s space. A sideport knife was used to make a paracentesis port. Intraocular phenylephrine/lidocaine was injected into the anterior chamber. The anterior chamber was then filled with viscoelastic. A keratome knife was used to construct a two--plane clear corneal tunnel extending 2.0mm into clear cornea. A flap was raised on the anterior capsule and capsulorhexis forceps were used to complete a continuous curvilinear capsulorhexis of 5.0 mm. Balanced salt solution was then used to perform cortical cleaving hydrodissection and nuclear hydrodelineation until the lens could be freely rotated within the capsular bag. The lens nucleus was then disassembled and removed within the capsular bag and iris plane using phacoemulsification. Residual cortical material was removed using the I/A handpiece. The posterior capsule was carefully polished to remove as much residual lens epithelial cells as safely possible. The capsular bag was then inflated and the anterior chamber deepened with cohesive viscoelastic. The lens implant described above was inserted into the capsular bag using the Demetris Autonome Injector. A Kuglen hook was used to dial the IOL into position. Residual viscoelastic was then removed first from posterior to the IOL, then from the anterior chamber using the I/A handpiece. The lens implant was noted to center nicely within the capsular bag. The incisions were stromally hydrated, and the anterior chamber was reformed using BSS. Then 0.5cc of moxifloxacin 1.0mg/ml were injected into the capsular bag and anterior chamber. The incisions were checked with a Weck spear and found to be secure. Several drops of ophthalmic povidone-iodine 5% were then applied to the eye followed by two drops of Imprimis combination prednisolone/moxifloxacin/nepafenac solution. The drapes were removed and a clear plastic protective eye shield was placed over the eye. The patient was then returned to [facility] Day [facility] in stable condition.
[2023-05-24 08:00] VITALS: BP 104/66; PULSE 53; RESP 16; TEMP 36.5; O2SAT 96
--- NOTE | 2023-05-24 08:17 | W.ANESPOSTOP ---
Postoperative Evaluation Date, Time and Location Date Performed: 05/24/23 Time Performed: 08:13 Patient Location: Day Surgery Unit Vital Signs Most Recent Imported Vital Signs: Most Recent Vital Signs Temp Pulse Resp BP Pulse Ox 36.5 C 53 L 16 104/66 96 05/24/23 08:00 05/24/23 08:00 05/24/23 08:00 05/24/23 08:00 05/24/23 08:00 Pain Score Most Recent Pain Score: Most Recent Pain Score Pain Level 0 05/24/23 08:00 Assessment Mental Status: Awake (Alert & Oriented to Patient Baseline) Airway and Respiratory Function: Patent airway with normal (patient baseline) respiratory exam Cardiovascular Function: Hemodynamically Stable Hydration Status: Adequately Hydrated Nausea & Vomiting: No Nausea or Vomiting Pain: Pt. Denies Any Pain Peripheral Nerve Block: Patient did not receive a nerve block
== END 2023-05-24 08:20 | disposition home or self-care (01) ==
LOC: SUR 06:16
PROVIDERS: PCP Family Medicine; Visit Provider Ophthalmology
PROC: (CPT 66984; principal; 2023-05-24 07:30)
DX: H25.041 Posterior subcapsular polar age-related cataract, right eye (principal); H25.011 Cortical age-related cataract, right eye; H25.11 Age-related nuclear cataract, right eye; I10 Essential (primary) hypertension; E11.9 Type 2 diabetes mellitus without complications; Z98.42 Cataract extraction status, left eye; I25.10 Atherosclerotic heart disease of native coronary artery without angina pectoris
CPT/HCPCS: 66984; 00123; V2632

== ENCOUNTER 2024-02-11 18:14 | Outpatient (REF) | payer MEDICARE, BC, SELFPAY ==
[2024-02-11 14:59] LABS: COMMENT (LAB VIEW ONLY) 123.88 mg/dL
== END 2024-02-11 18:15 | disposition home or self-care (01) ==
LOC: LBN 18:14
PROVIDERS: PCP Family Medicine; Visit Provider Family Medicine
DX: E11.9 Type 2 diabetes mellitus without complications (principal); R19.7 Diarrhea, unspecified
CPT/HCPCS: 82043; 82570

== ENCOUNTER → 2024-10-20 13:31 | Outpatient (BNVA) | payer MEDICARE, BC, SELFPAY | PROVIDERS: PCP Family Medicine; Referring Provider Family Medicine; Visit Provider Podiatrist | DX: L60.3 Nail dystrophy (principal); E11.65 Type 2 diabetes mellitus with hyperglycemia; I77.9 Disorder of arteries and arterioles, unspecified; T87.9 Unspecified complications of amputation stump; L60.2 Onychogryphosis; Z89.612 Acquired absence of left leg above knee; I73.89 Other specified peripheral vascular diseases; R25.2 Cramp and spasm; L65.9 Nonscarring hair loss, unspecified; R20.8 Other disturbances of skin sensation; R23.8 Other skin changes; L60.8 Other nail disorders | CPT/HCPCS: 11719 ==

== ENCOUNTER 2025-01-15 01:07 | Outpatient (CLI) | payer MEDICARE, BC, SELFPAY ==
[2025-01-15 12:25] LABS: HCT 43.3 % (36.0-46.0); HGB 14.3 g/dL (11.2-15.7); MCH 31.0 pg (27.0-33.0); MCHC 33.0 % (32.0-36.0); MCV 94 fL (80-95); MPV 11.2 fL (8.0-11.0); Platelet Count 226 10^3/uL (130-400); RBC 4.61 10^6/uL (3.93-5.22); RDW 13.5 % (11.7-14.6); RDW-SD 46.1 fL; WBC 5.39 10^3/uL (4.4-10.8)
[2025-01-15 12:37] LABS: Anion Gap 7.2 mmol/L (3-11); BUN 20 mg/dL (7-18); CO2 28.8 mmol/L (21.0-32.0); Calcium 9.0 mg/dL (8.5-10.1); Chloride 102 mmol/L (98-107); Estimated GFR 59.12 (mL/min/1.73m2); Glucose 294 mg/dL (74-106); Potassium 4.2 mmol/L (3.5-5.1); Sodium 138 mmol/L (136-145)
== END 2025-01-15 01:08 | disposition home or self-care (01) ==
LOC: LOS 01:07
PROVIDERS: PCP Family Medicine; Visit Provider Family Medicine
DX: E87.1 Hypo-osmolality and hyponatremia (principal); R53.83 Other fatigue
CPT/HCPCS: 36415; 80048; 85027

== ENCOUNTER → 2025-02-23 12:59 | Outpatient (BNVA) | payer MEDICARE, BC, SELFPAY | PROVIDERS: PCP Family Medicine; Referring Provider Family Medicine; Visit Provider Podiatrist | DX: L60.3 Nail dystrophy (principal); Z89.612 Acquired absence of left leg above knee; I73.89 Other specified peripheral vascular diseases; E11.65 Type 2 diabetes mellitus with hyperglycemia; R09.89 Other specified symptoms and signs involving the circulatory and respiratory systems; L65.9 Nonscarring hair loss, unspecified; R20.8 Other disturbances of skin sensation; R23.4 Changes in skin texture; L60.8 Other nail disorders; L60.2 Onychogryphosis | CPT/HCPCS: 11719; 11720 ==